=== PATIENT | male | born 1940 | race Caucasian/White ===

== ENCOUNTER 2017-07-22 06:49 | Inpatient (IN) | payer OTHER, MEDICARE ==
--- NOTE | 2017-07-22 07:48 | PDOC ---
History of Present Illness - General History Source: Patient Exam Limitations: No Limitations - History of Present Illness Initial Comments: 07/22/17 08:08 The patient is a 76 year old male with a significant past medical history of hypertension, hyperlipidemia, diabetes, stroke, on a daily aspirin, arthritis ( takes daily aleve) and sinonasal endocrine tumor (removed 2 years ago) who presents to the ED with complaints of rectal bleeding since this morning. The patient states he woke up this morning with generalized weakness. He reports 2 bowel movements that showed copious amounts of bright red blood with no stool present. Patient also reports a slight headache that has since resided and right arm numbness since yesterday. Denies similar symptoms in the past. Denies a hx of a colonoscopy. Denies abdominal pain, nausea, or vomiting. Denies chest pain or shortness of breath. Denies fever or chills. Denies any other symptoms. Social hx: The patient reports smoking one pack of cigarettes a day for 67 years. <Sammy Lowry - Last Filed: 07/22/17 09:46> <Andrez Andrew - Last Filed: 07/22/17 11:13> - General Chief Complaint: Rectal Bleed Stated Complaint: RECTAL BLEEDING Time Seen by Provider: 07/22/17 07:20 Past History <Sammy Lowry - Last Filed: 07/22/17 09:46> - Past Medical History CVA: Yes Diabetes: Yes HTN: Yes Hypercholesterolemia: Yes - Surgical History Abdominal Surgery: Yes (hernia) Orthopedic Surgery: Yes (LEIDY FOOT SX) - Suicide/Smoking/Psychosocial Hx Smoking History: Current every day smoker Have you smoked in the past 12 months: Yes Number of Cigarettes Smoked Daily: 20 Information on smoking cessation initiated: No 'Breaking Loose' booklet given: 09/11/14 Hx Alcohol Use: No Drug/Substance Use Hx: No Substance Use Type: None Hx Substance Use Treatment: No <Andrez Andrew - Last Filed: 07/22/17 11:13> - Past Medical History Allergies/Adverse Reactions: Allergies Allergy/AdvReac Type Severity Reaction Status Date / Time No Known Allergies Allergy Verified 07/22/17 07:00 Home Medications: Ambulatory Orders Lisinopril [Prinivil -] 20 mg PO BID 05/11/14 Metformin HCl [Glucophage] 1,000 mg PO BID 05/11/14 Simvastatin [Zocor -] 20 mg PO HS 05/11/14 Timolol 0.5% [Timoptic] 0.3 ml OU DAILY 05/11/14 Aspirin [ASA -] 325 mg PO DAILY 09/10/14 Glipizide [Glipizide ER] 10 mg PO BID 09/10/14 Review of Systems - Review of Systems Able to Perform ROS?: Yes Comments:: 07/22/17 08:08 ROS: A complete review of 10 out of 10 review of systems is taken and is negative apart from what is previously mentioned below and in the HPI. Gastrointestinal: + Rectal bleeding. No nausea; no vomiting; no diarrhea Neurological: + headache, generalized weakness, arm numbness. ; no vertigo; no lightheadedness All Other Systems: Reviewed and Negative <Sammy Lowry - Last Filed: 07/22/17 09:46> *Physical Exam - Vital Signs Last Vital Signs Temp Pulse Resp BP Pulse Ox 98.7 F 125 H 20 135/85 95 07/22/17 07:01 07/22/17 07:01 07/22/17 07:01 07/22/17 07:01 07/22/17 07:01 - Physical Exam Comments: 07/22/17 08:08 Vitals: Triage Vital signs reviewed General Appearance: + thin appearing, no acute distress Head: Atraumatic Cardiac: + systolic ejection murmur. Regular rate and rhythm, no rubs, no gallops Lungs: Clear to auscultation bilateral, good air movement bilaterally Abdomen: Soft, nondistended, normal bowel sounds, nontender to palpation Rectal: + Bright red blood per rectum. Extremities: Full range of motion to all extremities, no cyanosis, clubbing, or edema Skin: Warm and dry, no rashes or lesions, no rash, no petechiae Neuro: AOX3; Cranial Nerves 2-12 grossly intact, Strength intact to all extremities, Sensation intact to all extremities Psych: Normal mood, normal affect <Sammy Lowry - Last Filed: 07/22/17 09:46> - Vital Signs Last Vital Signs Temp Pulse Resp BP Pulse Ox 98.7 F 125 H 20 135/85 95 07/22/17 07:01 07/22/17 07:01 07/22/17 07:01 07/22/17 07:01 07/22/17 07:01 <Andrez Andrew - Last Filed: 07/22/17 11:13> Heart Score/ECG Review #1 07/22/17 08:45 EKG performed at 7:09:47 demonstrates rate of 97 bpm, rhythm of normal sinus, axis equal to normal. no T wave inversions, no ST elevations <Sammy Lowry - Last Filed: 07/22/17 09:46> ED Treatment Course - LABORATORY CBC & Chemistry Diagram: 07/22/17 07:37 07/22/17 07:37 - ADDITIONAL ORDERS Additional order review: Laboratory Results 07/22/17 07:37 VBG pH 7.32 POC VBG pCO2 49.1 POC VBG pO2 27.6 L Mixed VBG HCO3 24.5 - RADIOLOGY Radiograph Interpretation: 07/22/17 08:34 RAD/CHEST X-RAY PORTABLE Impression: No acute pathology. Reported by: Anil Case <Sammy Lowry - Last Filed: 07/22/17 09:46> - LABORATORY CBC & Chemistry Diagram: 07/22/17 07:37 07/22/17 07:37 - RADIOLOGY Radiology Studies Ordered: Category Date Time Status CHEST X-RAY PORTABLE* [RAD] Stat Radiology 07/22/17 07:21 Ordered <Andrez Andrew - Last Filed: 07/22/17 11:13> Medical Decision Making - Medical Decision Making 07/22/17 08:18 The patient is a 76 year old male with a significant past medical history of hypertension, hyperlipidemia, diabetes, stroke, on a daily aspirin, arthritis ( takes daily aleve) and sinonasal endocrine tumor (removed 2 years ago) who presents to the ED with complaints of rectal bleeding since this morning. Will obtain labs, ECG, Chest X-ray and perform a bedside abdominal US. 07/22/17 08:34 Bedside US demonstrates no significant aortic enlargement. 07/22/17 08:56 Dr. Phillips was microblogged at 08:54, wind commissioning technician for Dr. Nunez, to admit the patient for observation with a GI consult. 07/22/17 09:05 Dr. Smith, Gastroenterology, was paged at 09:02. 07/22/17 09:[address] Phillips at 09:20. 07/22/17 09:[address] Smith at 09:23. <Sammy Lowry - Last Filed: 07/22/17 09:46> - Medical Decision Making Patient presents with 2 episodes of bright red blood per rectum slightly tachycardic but normotensive On his laboratory analysis his hemoglobin has dropped from 2014 level of 14.7- 9.7 today no additional active stooling here in the emergency department Gastroenterology has been consulted we'll admit to telemetry for further management and GI consultation. <Andrez Andrew - Last Filed: 07/22/17 11:13> *DC/Admit/Observation/Transfer - Attestations Scribe Attestion: 07/22/17 08:08 Documentation prepared by Sammy Lowry, acting as medical care manager for Andrez Andrew MD <Sammy Lowry - Last Filed: 07/22/17 09:46> - Discharge Dispostion Admit: Yes <Andrez Andrew - Last Filed: 07/22/17 11:13> Diagnosis at time of Disposition: GI bleed Qualifiers: GI bleed type/associated pathology: unspecified gastrointestinal hemorrhage type Qualified Code(s): K92.2 - Gastrointestinal hemorrhage, unspecified - Discharge Dispostion Disposition: HOME
[2017-07-22 07:56] LABS: VENOUS PC02 49.1 mmHg (38-52); VENOUS PH 7.32 (7.32-7.42); VENOUS PO2 27.6 mmHg (28-48)
[2017-07-22 08:07] LABS: BASO % 0.7 % (0-2.0); EOS % 0.6 % (0-4.5); HEMATOCRIT 30.1 % (35.4-49); HEMOGLOBIN 9.7 GM/dL (11.7-16.9); LYMPH % 2.4 % (8-40); MCHC 32.2 g/dl (32.0-35.9); MEAN CELL VOLUME 93.4 fl (80-96); MEAN PLT VOLUME 7.8 fl (7.5-11.1); MONO % 4.8 % (3.8-10.2); NEUT % 91.5 % (42.8-82.8); PLATELET COUNT 325 K/MM3 (134-434); RBC 3.23 M/mm3 (4.00-5.60); WHITE BLOOD COUNT 12.1 K/mm3 (4.0-10.0)
[2017-07-22 08:32] LABS: INR 1.05 (0.82-1.09); PROTHROMBIN TIME (PATIENT) 11.9 SEC (9.98-11.88)
[2017-07-22 08:37] LABS: ALK PHOS 91 U/L (45-117); ANION GAP 10 (8-16); BILIRUBIN,TOTAL 0.4 mg/dL (0.2-1.0); BLOOD UREA NITROGEN 28 mg/dL (7-18); CHLORIDE 104 mmol/L (98-107); CO2 25 mmol/L (21-32); CREATININE 1.5 mg/dL (0.7-1.3); GLUCOSE,RANDOM 271 mg/dL (74-106); POTASSIUM 5.2 mmol/L (3.5-5.1); SGOT/AST 9 U/L (15-37); SGPT/ALT 10 U/L (12-78); SODIUM 139 mmol/L (136-145); TOT PROT 5.6 g/dl (6.4-8.2)
--- NOTE | 2017-07-22 10:22 | HP ---
Addendum entered and electronically signed by Dae Phillips MD 07/22/17 16:27 : Patient seen and examined. States had slurred speech yesterday that resolved by presentation. Today has numbness/tingling in L hand that he hasnt had since his stroke but improving. Currently says he is nervous. Agree with physical exam and assessment/plan by Vidya Gonzalez NP Original Note: Admitting History and Physical - Primary Care Physician PCP: Curt Nunez - Admission Chief Complaint: blood through rectum History of Present Illness: is pleasant 76 year old with pmh of DM, HTN, Hyperlipidemia, Stroke, OA, who presents with new onset, 2 episodes of bright blood per rectum this morning. He reports he's had a mild headache, and felt weak since yesterday. Pt has never had a colonoscopy. He also reports he woke up with his right hand numb which resolved with time. Pt reports his mentioned his speech was slight slurred which also resolved. Otherwise, pt reports he is feeling okay now. He denies any chest pain, sob, blurry vision, fever, chills, or n/v/d. 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 Lt toe amput (old) tonsillect), Tonsillectomy (Lt toe amp ( old)) - Smoking History Smoking history: Current every day smoker Have you smoked in the past 12 months: Yes Aproximately how many cigarettes per day: 20 - Alcohol/Substance Use Hx Alcohol Use: No History of Substance Use: reports: None - Social History Usual Living Arrangement: Yes: With Spouse ADL: Independent History of Recent Travel: No Home Medications - Allergies Allergies/Adverse Reactions: Allergies Allergy/AdvReac Type Severity Reaction Status Date / Time No Known Allergies Allergy Verified 07/22/17 07:00 - Home Medications Home Medications: Ambulatory Orders Lisinopril [Prinivil -] 20 mg PO BID 05/11/14 Metformin HCl [Glucophage] 1,000 mg PO BID 05/11/14 Simvastatin [Zocor -] 20 mg PO HS 05/11/14 Timolol 0.5% [Timoptic] 0.3 ml OU DAILY 05/11/14 Aspirin [ASA -] 325 mg PO DAILY 09/10/14 Glipizide [Glipizide ER] 10 mg PO BID 09/10/14 Family Disease History - Family Disease History Family Disease History: Diabetes: Brother (liver Ca, CKD), Heart Disease: Father , Mother (ill descript GI illness), Brother, CA: Brother, Other: Mother Review of Systems Findings/Remarks: as per HPI Physical Examination Vital Signs: Vital Signs Temperature 98.7 F 07/22/17 07:01 Pulse Rate 125 H 07/22/17 07:01 Respiratory Rate 20 07/22/17 07:01 Blood Pressure 135/85 07/22/17 07:01 O2 Sat by Pulse Oximetry (%) 95 07/22/17 07:01 Constitutional: Yes: Well Nourished, No Distress, Calm Cardiovascular: Yes: WNL, Regular Rate and Rhythm, Murmur. No: Bruit, Gallop, Rub Respiratory: Yes: WNL, Regular, CTA Bilaterally. No: Rales, Rhonchi, Wheezes Gastrointestinal: Yes: WNL, Normal Bowel Sounds, Soft. No: Distention, Tenderness Musculoskeletal: Yes: WNL Extremities: Yes: WNL Edema: No Neurological: Yes: WNL, Alert, Oriented Psychiatric: Yes: WNL, Alert, Oriented Labs: CBC, BMP 07/22/17 07:37 07/22/17 07:37 Imaging - Results Chest X-ray: Report Reviewed Problem List - Problems (1) Acute lower GI bleeding Assessment/Plan: BBPR x 2, most likely lower gi Heme occult positive Iron/ferritin studies ordered h/h stable, vital signs stable monitor h/h GI consulted, plan for colonoscopy tomorrow Clear liquids for now, bowel prep, NPO at midnight Code(s): K92.2 - GASTROINTESTINAL HEMORRHAGE, UNSPECIFIED (2) Diabetes mellitus Assessment/Plan: Holding home meds for now considering renal function BGM Insulin sliding scale as needed Code(s): E11.9 - TYPE 2 DIABETES MELLITUS WITHOUT COMPLICATIONS Qualifiers: Diabetes mellitus type: type 2 Diabetes mellitus complication status: with kidney complications Diabetes mellitus complication detail: with chronic kidney disease Diabetes mellitus detention insulin use: without detention use (3) Hypertension Assessment/Plan: Continue Lisinopril 20mg BID Code(s): I10 - ESSENTIAL (PRIMARY) HYPERTENSION Qualifiers: Hypertension type: essential hypertension Qualified Code(s): I10 - Essential (primary) hypertension (4) History of stroke Assessment/Plan: Pt reported RUE weakness/numbness with slurred speech which resolved Head CT neg US carotids/ cardiac echo ordered Neuro consult Hold aspirin for now in the setting of GI bleed Code(s): Z86.73 - PRSNL HX OF TIA (TIA), AND CEREB INFRC W/O RESID DEFICITS (5) Hyperlipidemia Assessment/Plan: Continue simvastatin 20mg Code(s): E78.5 - HYPERLIPIDEMIA, UNSPECIFIED (6) Osteoarthritis (arthritis due to wear and tear of joints) Assessment/Plan: on Aleve at home Hold at the moment Code(s): M19.90 - UNSPECIFIED OSTEOARTHRITIS, UNSPECIFIED SITE
[2017-07-22] MEDS ORDERED: SODIUM CHLORIDE 1,000 ML IV SCH (10:45)
--- NOTE | 2017-07-22 11:07 | CON.GI ---
Consult - Past Medical History [employer]: Yes: CVA (no residual deficits) Cardio/Vascular: Yes: HTN, Hyperlipdemia, Murmur (since childhood), Other ( atherosclerosis) Pulmonary: Yes: Bronchitis (chronic mild (smoking related)) Musculoskeletal: Yes: Osteoarthritis Endocrine: Yes: Diabetes Mellitus - Past Surgical History Past Surgical History: Yes: Hernia Repair (Bilateral inguinal hernia repair about 30 years ago. Lt toe amput (old) tonsillect), Tonsillectomy (Lt toe amp ( old)) - Alcohol/Substance Use Hx Alcohol Use: No History of Substance Use: reports: None - Smoking History Smoking history: Current every day smoker Have you smoked in the past 12 months: Yes Aproximately how many cigarettes per day: 20 - Social History ADL: Independent History of Recent Travel: No Home Medications - Allergies Allergies/Adverse Reactions: Allergies Allergy/AdvReac Type Severity Reaction Status Date / Time No Known Allergies Allergy Verified 07/22/17 07:00 - Home Medications Home Medications: Ambulatory Orders Lisinopril [Prinivil -] 20 mg PO BID 05/11/14 Metformin HCl [Glucophage] 1,000 mg PO BID 05/11/14 Simvastatin [Zocor -] 20 mg PO HS 05/11/14 Timolol 0.5% [Timoptic] 0.3 ml OU DAILY 05/11/14 Aspirin [ASA -] 325 mg PO DAILY 09/10/14 Glipizide [Glipizide ER] 10 mg PO BID 09/10/14 Family Disease History - Family Disease History Family Disease History: Diabetes: Brother (liver Ca, CKD), Heart Disease: Father , Mother (ill descript GI illness), Brother, CA: Brother, Other: Mother Physical Exam-GI Vital Signs: Vital Signs Temperature 98.7 F 07/22/17 07:01 Pulse Rate 98 H 07/22/17 10:21 Respiratory Rate 16 07/22/17 10:21 Blood Pressure 126/68 07/22/17 10:21 O2 Sat by Pulse Oximetry (%) 100 07/22/17 10:21 Labs: CBC, BMP 07/22/17 07:37 07/22/17 07:37 INR, PTT INR 1.05 (0.82-1.09) 07/22/17 07:37
--- NOTE | 2017-07-22 11:51 | CON.GI ---
Consult - History of Present Illness History of Present Illness: Covering for Dr. Ramos The patient is a 76 year old male with a significant past medical history of hypertension, hyperlipidemia, diabetes, stroke, on a daily aspirin, arthritis ( takes daily aleve) and sinonasal endocrine tumor (removed 2 years ago) who presents to the ED with complaints of rectal bleeding since this morning. The patient reports 2 bowel movements - copious amounts of bright red blood with no stool present. There was no tenismus, nausea, vomiting, abdominal pain, dyspepsia, heartburn, vomiting. No prior episodes of the same. No history of GI problems. Never had colonoscopy. At the time of this encounter, the patient is not in distress, sitting at the age of his bed, comfortable. Hgb 9 g/dl. Normal VS. 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 Lt toe amput (old) tonsillect), Tonsillectomy (Lt toe amp ( old)) - Alcohol/Substance Use Hx Alcohol Use: No History of Substance Use: reports: None - Smoking History Smoking history: Current every day smoker Have you smoked in the past 12 months: Yes Aproximately how many cigarettes per day: 20 - Social History ADL: Independent History of Recent Travel: No Home Medications - Allergies Allergies/Adverse Reactions: Allergies Allergy/AdvReac Type Severity Reaction Status Date / Time No Known Allergies Allergy Verified 07/22/17 07:00 - Home Medications Home Medications: Ambulatory Orders Lisinopril [Prinivil -] 20 mg PO BID 05/11/14 Metformin HCl [Glucophage] 1,000 mg PO BID 05/11/14 Simvastatin [Zocor -] 20 mg PO HS 05/11/14 Timolol 0.5% [Timoptic] 0.3 ml OU DAILY 05/11/14 Aspirin [ASA -] 325 mg PO DAILY 09/10/14 Glipizide [Glipizide ER] 10 mg PO BID 09/10/14 Family Disease History - Family Disease History Family Disease History: Diabetes: Brother (liver Ca, CKD), Heart Disease: Father , Mother (ill descript GI illness), Brother, CA: Brother, Other: Mother Review of Systems Findings/Remarks: As per HPI. H&P Physical Exam-GI Vital Signs: Vital Signs Temperature 98.7 F 07/22/17 07:01 Pulse Rate 98 H 07/22/17 10:21 Respiratory Rate 16 07/22/17 10:21 Blood Pressure 126/68 07/22/17 10:21 O2 Sat by Pulse Oximetry (%) 100 07/22/17 10:21 Constitutional: Yes: Well Nourished, No Distress, Calm Eyes: Yes: Conjunctiva Clear HENT: Yes: Atraumatic Neck: Yes: Supple ...Palpate: Yes: Soft. No: Firm/Rigid, Guarding, Mass, Tenderness, Tenderness, Rebound ...Rectal Exam: Yes: Guaiac Positive (lab tested), Other (lab) Neurological: Yes: Alert, Oriented Labs: CBC, BMP 07/22/17 07:37 07/22/17 07:37 INR, PTT INR 1.05 (0.82-1.09) 07/22/17 07:37 Laboratory Tests 07/22/17 07/22/17 07/22/17 07:37 07:37 07:37 WBC 12.1 H RBC 3.23 L D Hgb 9.7 L D Hct 30.1 L D MCV 93.4 MCH 30.0 MCHC 32.2 RDW 14.0 Plt Count 325 D MPV 7.8 Neutrophils % 91.5 H Lymphocytes % 2.4 L D Monocytes % 4.8 Eosinophils % 0.6 Basophils % 0.7 PT with INR 11.90 H INR 1.05 PTT (Actin FS) 28.0 VBG pH 7.32 POC VBG pCO2 49.1 POC VBG pO2 27.6 L Mixed VBG HCO3 24.5 Sodium Potassium Chloride Carbon Dioxide Anion Gap BUN Creatinine Creat Clearance w eGFR Random Glucose Lactic Acid Calcium Total Bilirubin AST ALT Alkaline Phosphatase Total Protein Albumin Stool Occult Blood Blood Type Antibody Screen 07/22/17 07/22/17 07/22/17 07:37 07:37 07:37 WBC RBC Hgb Hct MCV MCH MCHC RDW Plt Count MPV Neutrophils % Lymphocytes % Monocytes % Eosinophils % Basophils % PT with INR INR PTT (Actin FS) VBG pH POC VBG pCO2 POC VBG pO2 Mixed VBG HCO3 Sodium 139 Potassium 5.2 H Chloride 104 Carbon Dioxide 25 Anion Gap 10 BUN 28 H D Creatinine 1.5 H D Creat Clearance w eGFR 45.26 Random Glucose 271 H D Lactic Acid 1.4 Calcium 8.0 L Total Bilirubin 0.4 D AST 9 L D ALT 10 L D Alkaline Phosphatase 91 Total Protein 5.6 L Albumin 3.0 L Stool Occult Blood Blood Type O NEGATIVE Antibody Screen Negative 07/22/17 07/22/17 08:13 11:05 WBC RBC Hgb Hct MCV MCH MCHC RDW Plt Count MPV Neutrophils % Lymphocytes % Monocytes % Eosinophils % Basophils % PT with INR INR PTT (Actin FS) VBG pH POC VBG pCO2 POC VBG pO2 Mixed VBG HCO3 Sodium Potassium Chloride Carbon Dioxide Anion Gap BUN Creatinine Creat Clearance w eGFR Random Glucose Lactic Acid 1.3 Calcium Total Bilirubin AST ALT Alkaline Phosphatase Total Protein Albumin Stool Occult Blood Positive Blood Type Antibody Screen Problem List - Problems (1) Acute lower GI bleeding Code(s): K92.2 - GASTROINTESTINAL HEMORRHAGE, UNSPECIFIED (2) GI bleed Code(s): K92.2 - GASTROINTESTINAL HEMORRHAGE, UNSPECIFIED Qualifiers: GI bleed type/associated pathology: unspecified gastrointestinal hemorrhage type Qualified Code(s): K92.2 - Gastrointestinal hemorrhage, unspecified Assessment/Plan A 76 yom with hematochezia. Anemia. No hemodynamic instability. Not actively bleeding at this time. r/o neoplams, diverticulosis, angiectasia, colitis. As discussed with the patient, clear liquid diet and colon prep today followed by colonocopy. Avoid NSAIDs CBC in 6-8 hrs PT/INR, CBC, CMP, Iron in AM Do not suspect upper GI bleeding.
[2017-07-22] MEDS: INSULIN SLIDING SCALE (NOVOLOG) 1 VIAL SQ SCH (12:10)
[2017-07-22] MEDS ORDERED: INSULIN REGULAR HUMAN 100 UNITS/ML *VIAL ONE (12:10)
[2017-07-22] MEDS ORDERED: BISACODYL 5 MG TABLET.DR (FP) PO ONE (12:33)
[2017-07-22] MEDS ORDERED: PEG 3350/NA SULF BICARB CL/KCL 4000 ML SOLN.RECON PO ONE (12:33)
[2017-07-22] MEDS ORDERED: BISACODYL 5 MG TABLET.DR (FP) ONE (13:49)
--- NOTE | 2017-07-22 14:58 | EKG ---
Test Reason : Blood Pressure : / mmHG Vent. Rate : 097 BPM Atrial Rate : 097 BPM P-R Int : 164 ms QRS Dur : 076 ms QT Int : 366 ms P-R-T Axes : 030 040 082 degrees QTc Int : 464 ms POOR DATA QUALITY, INTERPRETATION MAY BE ADVERSELY AFFECTED SINUS RHYTHM WITH MARKED SINUS ARRHYTHMIA POSSIBLE LEFT ATRIAL ENLARGEMENT NONSPECIFIC ST AND T WAVE ABNORMALITY PROLONGED QT ABNORMAL ECG WHEN COMPARED WITH ECG OF 15-MAY-2014 08:45, NO SIGNIFICANT CHANGE WAS FOUND Confirmed by SMILEY STEVENSON MD ([id number]) on 07/22/2017 2:57:35 PM Referred By: Confirmed By:SMILEY STEVENSON MD
[2017-07-22 18:05] LABS: URINE APPEARANCE SLCLOUDY; URINE BILIRUBIN NEGATIVE (NEGATIVE); URINE BLOOD NEGATIVE (NEGATIVE); URINE COLOR YELLOW; URINE GLUCOSE (UA) 1+ (NEGATIVE); URINE KETONE TRACE (NEGATIVE); URINE LEUK ESTERASE NEGATIVE (NEGATIVE); URINE NITRITE NEGATIVE (NEGATIVE); URINE UROBILINOGEN NEGATIVE mg/dL (0.2-1.0)
[2017-07-22 18:34] LABS: URINE PROTEIN 2+ (NEGATIVE)
[2017-07-22 18:37] LABS: EPI CELLS RARE /HPF (FEW); GRANULAR CASTS 1 /lpf; URINE BACTERIA RARE /hpf (NONE SEEN); URINE HYALINE CAST 4 /lpf; URINE MUCUS RARE
[2017-07-22 21:19] LABS: BASO % 0.4 % (0-2.0); EOS % 0.9 % (0-4.5); HEMATOCRIT 25.2 % (35.4-49); HEMOGLOBIN 8.1 GM/dL (11.7-16.9); LYMPH % 5.5 % (8-40); MCH 29.6 pg (25.7-33.7); MEAN CELL VOLUME 92.4 fl (80-96); MEAN PLT VOLUME 7.4 fl (7.5-11.1); MONO % 7.1 % (3.8-10.2); NEUT % 86.1 % (42.8-82.8); PLATELET COUNT 347 K/MM3 (134-434); RBC 2.73 M/mm3 (4.00-5.60); WHITE BLOOD COUNT 11.5 K/mm3 (4.0-10.0)
[2017-07-22] MEDS: ATORVASTATIN CA 10 MG TABLET (FP) PO SCH (22:13)
[2017-07-22] MEDS: LISINOPRIL 20 MG TABLET (FP) PO SCH (22:13)
[2017-07-22] MEDS ORDERED: LISINOPRIL 20 MG TABLET (FP) ONE (22:24)
[2017-07-22] MEDS ORDERED: ATORVASTATIN CA 40 MG TABLET (FP) ONE (22:25)
[2017-07-23] MEDS: SODIUM CHLORIDE 1,000 ML IV SCH (00:40)
[2017-07-23] MEDS: INSULIN SLIDING SCALE (NOVOLOG) 1 VIAL SQ SCH ×4 (00:41→17:32)
[2017-07-23 07:34] LABS: HEMOGLOBIN 8.6 GM/dL (11.7-16.9); MCH 29.8 pg (25.7-33.7); MCHC 31.9 g/dl (32.0-35.9); MEAN CELL VOLUME 93.4 fl (80-96); MEAN PLT VOLUME 7.9 fl (7.5-11.1); PLATELET COUNT 333 K/MM3 (134-434); RBC 2.89 M/mm3 (4.00-5.60); WHITE BLOOD COUNT 11.3 K/mm3 (4.0-10.0)
[2017-07-23 07:46] LABS: INR 1.04 (0.82-1.09); PROTHROMBIN TIME (PATIENT) 11.7 SEC (9.98-11.88)
[2017-07-23 08:11] LABS: ANION GAP 8 (8-16); BLOOD UREA NITROGEN 38 mg/dL (7-18); CALCIUM 7.8 mg/dL (8.5-10.1); CHLORIDE 105 mmol/L (98-107); CO2 26 mmol/L (21-32); CREATININE 1.5 mg/dL (0.7-1.3); GLUCOSE,RANDOM 153 mg/dL (74-106); MAGNESIUM 1.9 mg/dL (1.8-2.4); PHOSPHOROUS 2.7 mg/dL (2.5-4.9); POTASSIUM 5.3 mmol/L (3.5-5.1); SODIUM 139 mmol/L (136-145)
[2017-07-23] MEDS ORDERED: LISINOPRIL 20 MG TABLET (FP) ONE (08:31)
--- NOTE | 2017-07-23 09:22 | PN ---
Progress Note, Physician Chief Complaint: Pt upset because he didnt get any sleep and had to spend the night in ED. Otherwise, pt in no acute distress. Denies any chest pain, sob, weakness, n/v. - Current Medication List Current Medications: Active Medications Atorvastatin Calcium (Lipitor -) 20 mg PO [facility] Last Admin: 07/22/17 22:13 Dose: 20 mg Sodium Chloride (Normal Saline -) 1,000 mls @ 50 mls/hr IV ASDIR [facility] Stop: 07/23/17 23:59 Last Admin: 07/23/17 00:40 Dose: 50 mls/hr Insulin Aspart (Novolog Vial Sliding Scale -) 1 vial SQ TIDAC [facility] PRN Reason: Protocol Last Admin: 07/23/17 06:53 Dose: 2 units Lisinopril (Prinivil) 20 mg PO BID [facility] Last Admin: 07/22/17 22:13 Dose: 20 mg Non-Formulary Medication (Timolol 0.5%) 0.3 ml OU DAILY [facility] - Objective Vital Signs: Vital Signs Temperature 99.0 F 07/23/17 09:05 Pulse Rate 94 H 07/23/17 09:05 Respiratory Rate 18 07/23/17 09:05 Blood Pressure 166/81 07/23/17 09:05 O2 Sat by Pulse Oximetry (%) 100 07/23/17 09:05 Constitutional: Yes: Well Nourished, No Distress Cardiovascular: Yes: WNL, Regular Rate and Rhythm, Murmur Respiratory: Yes: WNL, Regular, CTA Bilaterally, Diminished Gastrointestinal: Yes: WNL, Normal Bowel Sounds, Soft. No: Distention Musculoskeletal: Yes: WNL Extremities: Yes: WNL Edema: No Neurological: Yes: WNL, Alert, Oriented Psychiatric: Yes: WNL, Alert, Oriented Labs: CBC, BMP 07/23/17 06:30 07/23/17 06:30 INR, PTT INR 1.04 (0.82-1.09) 07/23/17 06:30 - ....Imaging Cat Scan: Report Reviewed Ultrasound: Report Reviewed MRI: Pending Other: Other <Vidya Gonzalez - Last Filed: 07/23/17 17:01> - Current Medication List Current Medications: Active Medications Atorvastatin Calcium (Lipitor -) 20 mg PO [facility] Last Admin: 07/22/17 22:13 Dose: 20 mg Sodium Chloride (Normal Saline -) 1,000 mls @ 50 mls/hr IV ASDIR [facility] Stop: 07/23/17 23:59 Last Admin: 07/23/17 00:40 Dose: 50 mls/hr Insulin Aspart (Novolog Vial Sliding Scale -) 1 vial SQ TIDAC [facility] PRN Reason: Protocol Last Admin: 07/23/17 11:56 Dose: Not Given Lisinopril (Prinivil) 20 mg PO BID [facility] Last Admin: 07/23/17 10:04 Dose: 20 mg Non-Formulary Medication (Timolol 0.5%) 0.3 ml OU DAILY [facility] - Objective Vital Signs: Vital Signs Temperature 37.2 C 07/23/17 15:44 Pulse Rate 78 07/23/17 15:44 Respiratory Rate 18 07/23/17 15:44 Blood Pressure 130/52 07/23/17 15:44 O2 Sat by Pulse Oximetry (%) 99 07/23/17 15:34 Labs: CBC, BMP 07/23/17 06:30 07/23/17 06:30 INR, PTT INR 1.04 (0.82-1.09) 07/23/17 06:30 <Dae Phillips - Last Filed: 07/23/17 17:22> Problem List - Problems (1) Acute lower GI bleeding Code(s): K92.2 - GASTROINTESTINAL HEMORRHAGE, UNSPECIFIED (2) Diabetes mellitus Code(s): E11.9 - TYPE 2 DIABETES MELLITUS WITHOUT COMPLICATIONS QualifierTitle: Diabetes mellitus type: type 2 Diabetes mellitus complication status: with kidney complications Diabetes mellitus complication detail: with chronic kidney disease Diabetes mellitus senior care insulin use: without adjunct faculty for medical terminology use (3) Hypertension Code(s): I10 - ESSENTIAL (PRIMARY) HYPERTENSION QualifierTitle: Hypertension type: essential hypertension Qualified Code( s): I10 - Essential (primary) hypertension (4) History of stroke Code(s): Z86.73 - PRSNL HX OF TIA (TIA), AND CEREB INFRC W/O RESID DEFICITS (5) Hyperlipidemia Code(s): E78.5 - HYPERLIPIDEMIA, UNSPECIFIED (6) Osteoarthritis (arthritis due to wear and tear of joints) Code(s): M19.90 - UNSPECIFIED OSTEOARTHRITIS, UNSPECIFIED SITE (7) CKD (chronic kidney disease) stage 3, GFR 30-59 ml/min Code(s): N18.3 - CHRONIC KIDNEY DISEASE, STAGE 3 (MODERATE) <Vidya Gonzalez - Last Filed: 07/23/17 17:01> Assessment/Plan (1) Acute lower GI bleeding Assessment/Plan: BRBPR x 2, most likely lower gi Heme occult positive Iron/ferritin studies pending h/h stable, vital signs stable monitor h/h GI following, plan for colonoscopy today NPO Code(s): K92.2 - GASTROINTESTINAL HEMORRHAGE, UNSPECIFIED (2) Diabetes mellitus Assessment/Plan: Holding home meds for now considering renal function BGM Insulin sliding scale as needed Code(s): E11.9 - TYPE 2 DIABETES MELLITUS WITHOUT COMPLICATIONS Qualifiers: Diabetes mellitus type: type 2 Diabetes mellitus complication status: with kidney complications Diabetes mellitus complication detail: with chronic kidney disease Diabetes mellitus senior care insulin use: without senior care use (3) Hypertension Assessment/Plan: Continue Lisinopril 20mg BID Code(s): I10 - ESSENTIAL (PRIMARY) HYPERTENSION Qualifiers: Hypertension type: essential hypertension Qualified Code(s): I10 - Essential (primary) hypertension (4) CKD (chronic kidney disease) stage 3, GFR 30-59 ml/min Assessment/Plan: Baseline Cr 1.2-2 output, Followed by outpt Cr 1.5 here, mild hyperkalemia Nephrology following Code(s): N18.3 - CHRONIC KIDNEY DISEASE, STAGE 3 (MODERATE) (5) History of stroke Assessment/Plan: Pt reported RUE weakness/numbness with slurred speech which resolved Head CT neg US carotids without significant findings/ cardiac echo pending MRI ordered per Neuro Neuro following Hold aspirin for now in the setting of GI bleed Code(s): Z86.73 - PRSNL HX OF TIA (TIA), AND CEREB INFRC W/O RESID DEFICITS (6) Hyperlipidemia Assessment/Plan: Continue simvastatin 20mg Code(s): E78.5 - HYPERLIPIDEMIA, UNSPECIFIED (7) Osteoarthritis (arthritis due to wear and tear of joints) Assessment/Plan: on Aleve at home Hold at the moment Code(s): M19.90 - UNSPECIFIED OSTEOARTHRITIS, UNSPECIFIED SITE Dispo: Home tomorrow. MRI pending <Vidya Gonzalez - Last Filed: 07/23/17 17:01>
--- NOTE | 2017-07-23 09:52 | PN ---
Progress Note (short form) - Note Progress Note: Dr. Phillips / OIL WELL ENGINEER Vidya Gonzalez to document today. Last hemoglobin 11Gm in office. Hemoglobin was 12.3 prior to that result. Previously refused Colonoscopy; still smoking; Renal MD Dr. Hood. [place] watery fluids coming out with prep; no pieces of stool. Previous Hx TIA/CVA with no residual effects.
[2017-07-23] MEDS ORDERED: TIMOLOL 0.5% OU SCH (10:00)
[2017-07-23] MEDS: LISINOPRIL 20 MG TABLET (FP) PO SCH ×2 (10:04→21:07)
--- NOTE | 2017-07-23 10:14 | CONSULT ---
Consult - text type - Consultation Consultation Note: Neurology History of Present Illness The patient is a 76 year old male with a significant past medical history of hypertension, hyperlipidemia, diabetes, stroke, on a daily aspirin, arthritis ( takes daily aleve) and sinonasal endocrine tumor (removed 2 years ago) who presented to the ED with complaints of rectal bleeding. The patient stated he woke up with generalized weakness. He reports 2 bowel movements that showed copious amounts of bright red blood with no stool present. I was consulted as there was concern regarding neurologic symptoms. He has slurring of speech and was complaining of numbness particularly in his distal RUE. He is a poor historian and it seems some of these complaints may be chronic. He completed CT head which did not show acute changes. Carotid dopplers also completed and with HD significant stenosis. Of note, ASA being held during lower GI bleeding. Discussed with him having an MRI brain to further evaluate complaints and determine if any acute events occured and he was in agreement. Past History - Past Medical History CVA: Yes Diabetes: Yes HTN: Yes Hypercholesterolemia: Yes - Surgical History Abdominal Surgery: Yes (hernia) Orthopedic Surgery: Yes (LEIDY FOOT SX) - Suicide/Smoking/Psychosocial Hx Smoking History: Current every day smoker Have you smoked in the past 12 months: Yes Number of Cigarettes Smoked Daily: 20 Information on smoking cessation initiated: No 'Breaking Loose' booklet given: 09/11/14 Hx Alcohol Use: No Drug/Substance Use Hx: No Substance Use Type: None Hx Substance Use Treatment: No - Past Medical History Allergies/Adverse Reactions: Allergies Allergy/AdvReac Type Severity Reaction Status Date / Time No Known Allergies Allergy Verified 07/22/17 07:00 Home Medications: Ambulatory Orders Lisinopril [Prinivil -] 20 mg PO BID 05/11/14 Metformin HCl [Glucophage] 1,000 mg PO BID 05/11/14 Simvastatin [Zocor -] 20 mg PO HS 05/11/14 Timolol 0.5% [Timoptic] 0.3 ml OU DAILY 05/11/14 Aspirin [ASA -] 325 mg PO DAILY 09/10/14 Glipizide [Glipizide ER] 10 mg PO BID 09/10/14 Review of Systems - Review of Systems ROS: A complete review of 10 out of 10 review of systems is taken and is negative apart from what is previously mentioned below and in the HPI. Gastrointestinal: + Rectal bleeding. No nausea; no vomiting; no diarrhea Neurological: + headache, generalized weakness, arm numbness. ; no vertigo; no lightheadedness All Other Systems: Reviewed and Negative *Physical Exam Vital Signs Period Temp Pulse Resp BP Sys/Sy Pulse Ox Last 24 Hr 97.8 F-99.2 F 88-98 16-18 126-166/65-81 97-100 Vitals: Triage Vital signs reviewed General Appearance: + thin appearing, no acute distress Head: Atraumatic Cardiac: + systolic ejection murmur. Regular rate and rhythm, no rubs, no gallops Lungs: Clear to auscultation bilateral, good air movement bilaterally Abdomen: Soft, nondistended, normal bowel sounds, nontender to palpation Rectal: + Bright red blood per rectum. Extremities: Full range of motion to all extremities, no cyanosis, clubbing, or edema Skin: Warm and dry, no rashes or lesions, no rash, no petechiae Neuro: AOX3; Cranial Nerves intact except slight slurred speech noted, Strength intact grossly, sensory with slight decreased PP on R hand, gait without ataxia, slight antalgia Psych: Normal mood, normal affect CBCD WBC 11.3 K/mm3 (4.0-10.0) H 07/23/17 06:30 RBC 2.89 M/mm3 (4.00-5.60) L 07/23/17 06:30 Hgb 8.6 GM/dL (11.7-16.9) L 07/23/17 06:30 Hct 27.0 % (35.4-49) L 07/23/17 06:30 MCV 93.4 fl (80-96) 07/23/17 06:30 MCHC 31.9 g/dl (32.0-35.9) L 07/23/17 06:30 RDW 14.0 % (11.9-15.9) 07/23/17 06:30 Plt Count 333 K/MM3 (134-434) 07/23/17 06:30 MPV 7.9 fl (7.5-11.1) 07/23/17 06:30 CMP Sodium 139 mmol/L (136-145) 07/23/17 06:30 Potassium 5.3 mmol/L (3.5-5.1) H 07/23/17 06:30 Chloride 105 mmol/L (98-107) 07/23/17 06:30 Carbon Dioxide 26 mmol/L (21-32) 07/23/17 06:30 Anion Gap 8 (8-16) 07/23/17 06:30 BUN 38 mg/dL (7-18) H D 07/23/17 06:30 Creatinine 1.5 mg/dL (0.7-1.3) H 07/23/17 06:30 Creat Clearance w eGFR 45.26 (>60) 07/22/17 07:37 Calcium 7.8 mg/dL (8.5-10.1) L 07/23/17 06:30 Total Bilirubin 0.4 mg/dL (0.2-1.0) D 07/22/17 07:37 AST 9 U/L (15-37) L D 07/22/17 07:37 ALT 10 U/L (12-78) L D 07/22/17 07:37 Alkaline Phosphatase 91 U/L (45-117) 07/22/17 07:37 Total Protein 5.6 g/dl (6.4-8.2) L 07/22/17 07:37 Albumin 3.0 g/dl (3.4-5.0) L 07/22/17 07:37 - RADIOLOGY CT head reviewed Carotid Doppler reviewed PLan 76 year old male with a significant past medical history of hypertension, hyperlipidemia, diabetes, stroke, on a daily aspirin, arthritis (takes daily aleve) and sinonasal endocrine tumor (removed 2 years ago) who presented to the ED with complaints of rectal bleeding. The patient stated he woke up with generalized weakness. He reports 2 bowel movements that showed copious amounts of bright red blood with no stool present. I was consulted as there was concern regarding slurring of speech and was complaining of numbness particularly in his distal RUE. CT head did not show acute changes. Carotid dopplers also completed and with HD significant stenosis. ASA being held during lower GI bleeding. MRI brain ordered Follow up Echo GI bleed being acutely managed Monitor BP, can maintain range, has been normo to slightly hypertensive Recommend < 160/100 for now and ideally <140/90 Recommend restating antiplatelet as soon as possible when GI bleed addressed Continue Statin DXT ppx
[2017-07-23 11:58] VITALS: BMI 21.9
--- NOTE | 2017-07-23 11:58 | CON.NEP ---
Consult Consult Specialty:: Nephrology Referred by:: Dr. Nunez Reason for Consultation:: CKD - History of Present Illness Chief Complaint: Rectal Bleeding History of Present Illness: This is a 76 year old gentleman with PMhx of CKD stage 3 with proteinuria ( baseline Cr 1.3-2 as outpatient), Hypertension, DM Type 2, HLD, CVA who presented with complaints of bright red blood per rectum with BUN/Cr of 38/1.5. Pt had 2 episodes of BRBPR. + dizziness, + chest discomfort. No N/V. No Abd pain. No fever or chills. No recent NSAID use, contrast exposure. No flank pain , hematuria, dysuria. 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 Lt toe amput (old) tonsillect), Tonsillectomy (Lt toe amp ( old)) - Alcohol/Substance Use Hx Alcohol Use: No History of Substance Use: reports: None - Smoking History Smoking history: Current every day smoker Have you smoked in the past 12 months: Yes Aproximately how many cigarettes per day: 20 - Social History ADL: Independent History of Recent Travel: No Home Medications - Allergies Allergies/Adverse Reactions: Allergies Allergy/AdvReac Type Severity Reaction Status Date / Time No Known Allergies Allergy Verified 07/22/17 07:00 - Home Medications Home Medications: Ambulatory Orders Lisinopril [Prinivil -] 20 mg PO BID 05/11/14 Metformin HCl [Glucophage] 1,000 mg PO BID 05/11/14 Simvastatin [Zocor -] 20 mg PO HS 05/11/14 Timolol 0.5% [Timoptic] 0.3 ml OU DAILY 05/11/14 Aspirin [ASA -] 325 mg PO DAILY 09/10/14 Glipizide [Glipizide ER] 10 mg PO BID 09/10/14 Family Disease History - Family Disease History Family Disease History: Diabetes: Brother (liver Ca, CKD), Heart Disease: Father , Mother (ill descript GI illness), Brother, CA: Brother, Other: Mother Review of Systems - Review of Systems Constitutional: reports: No Symptoms Neck: reports: No Symptoms Cardiovascular: reports: No Symptoms Respiratory: reports: No Symptoms Gastrointestinal: reports: Melena. denies: Abdominal Pain, Diarrhea Genitourinary: reports: No Symptoms Musculoskeletal: reports: No Symptoms Neurological: reports: No Symptoms Nephrology Consult - Height Height: 5 ft 3 in - Weight Weight: 56.155 kg - BMI Body Mass Index (BMI): 21.9 - Lab Results CBC,BMP: CBC, BMP 07/23/17 06:30 07/23/17 06:30 Anion Gap: Anion Gap Anion Gap 8 (8-16) 07/23/17 06:30 - Imaging Chest X-ray: Report Reviewed - Physical Examination Vital Signs: Vital Signs Temperature 99.0 F 07/23/17 09:26 Pulse Rate 94 H 07/23/17 09:26 Respiratory Rate 18 07/23/17 09:26 Blood Pressure 166/81 07/23/17 09:26 O2 Sat by Pulse Oximetry (%) 100 07/23/17 09:05 Constitutional: Yes: No Distress, Calm HENT: Yes: Atraumatic Neck: Yes: Supple Cardiovascular: Yes: Regular Rate and Rhythm, S1, S2. No: JVD, Murmur Respiratory: Yes: Regular, CTA Bilaterally Gastrointestinal: Yes: Soft. No: Distention, Tenderness Renal/: No: Bladder Distention, [place] Present Extremities: No: Cold, Cool, Cyanosis Edema: No Neurological: Yes: Alert, Oriented Assessment/Plan 76 year old gentleman with PMhx of CKD stage 3 with proteinuria (baseline Cr 1.3 -2 as outpatient), Hypertension, DM Type 2, HLD, CVA who presented with complaints of bright red blood per rectum with BUN/Cr of 38/1.5. #CKD Stage 3 with proteinuria/Azotemia Renal function stable at this time continue ACEi trend renal function and electrolytes daily would recommend moderate IVF hydration while pt is NPO and getting bowel prep #Rectal Bleeding for colonoscopy GI following #Hypertension continue ACEi #DM Type 2 hold metformin insulin sliding scale #Anemia trend H/H transfuse as per protocol #Mild Hyperkalemia from ACEi +/- mild volume depletion trend with IVF Low K diet when restarted continue ACEi for now Thank you Will follow Tomás Al DO
--- NOTE | 2017-07-23 15:14 | PROC ---
Endoscopy Procedure Endoscopy procedure completed. Please see scanned procedure report. severe diverticulosis throughout the colon prominent fold in the ascending colon noted, tattooed and biopsied 5 mm sigmoid, pedunculated polyp was found and removed high fiber diet follow up biopsies in office in 1 week
[2017-07-23] MEDS: ATORVASTATIN CA 10 MG TABLET (FP) PO SCH (21:07)
[2017-07-24] MEDS: INSULIN SLIDING SCALE (NOVOLOG) 1 VIAL SQ SCH (06:06)
[2017-07-24] MEDS: SODIUM CHLORIDE 1,000 ML IV SCH (06:06)
[2017-07-24 07:43] LABS: BASO % 0.9 % (0-2.0); LYMPH % 8.2 % (8-40); MCH 30.2 pg (25.7-33.7); MCHC 32.2 g/dl (32.0-35.9); MEAN CELL VOLUME 93.7 fl (80-96); MEAN PLT VOLUME 7.9 fl (7.5-11.1); MONO % 6.9 % (3.8-10.2); PLATELET COUNT 307 K/MM3 (134-434); RBC 2.67 M/mm3 (4.00-5.60); WHITE BLOOD COUNT 7.4 K/mm3 (4.0-10.0)
--- NOTE | 2017-07-24 07:53 | PN ---
Progress Note, Physician Chief Complaint: ID Full note dictated Major issue GI bleed but for unclear reasons possibly elevated WBC in ER blood cultures drawn now with 1/4 gram pos clusters NO fevers chills hardware pacemaker ect. - Current Medication List Current Medications: Active Medications Atorvastatin Calcium (Lipitor -) 20 mg PO HS [facility] Last Admin: 07/23/17 21:07 Dose: 20 mg Insulin Aspart (Novolog Vial Sliding Scale -) 1 vial SQ TIDAC [facility] PRN Reason: Protocol Last Admin: 07/24/17 06:06 Dose: Not Given Lisinopril (Prinivil) 20 mg PO BID [facility] Last Admin: 07/23/17 21:07 Dose: 20 mg Non-Formulary Medication (Timolol 0.5%) 0.3 ml OU DAILY [facility] - Objective Vital Signs: Vital Signs Temperature 97.9 F 07/24/17 05:44 Pulse Rate 75 07/24/17 01:40 Respiratory Rate 18 07/24/17 01:40 Blood Pressure 141/58 07/24/17 01:40 O2 Sat by Pulse Oximetry (%) 99 07/23/17 21:00 Cardiovascular: Yes: Murmur, S1, S2, Other (Grade 4 diffuse precordial murmur) Respiratory: Yes: WNL, Regular, CTA Bilaterally Gastrointestinal: Yes: Soft. No: Tenderness, Tenderness, Epigastrium Labs: INR, PTT INR 1.04 (0.82-1.09) 07/23/17 06:30 Problem List - Problems (1) Gram-positive bacteremia Code(s): R78.81 - BACTEREMIA (2) Acute lower GI bleeding Code(s): K92.2 - GASTROINTESTINAL HEMORRHAGE, UNSPECIFIED Assessment/Plan Microbiology 07/22/17 07:21 Blood - Peripheral Venous Blood Culture - Preliminary Pending Organism 07/22/17 07:21 Blood - Peripheral Venous Blood Culture - Preliminary NO GROWTH OBTAINED AFTER 24 HOURS, INCUBATION TO CONTINUE FOR 4 DAYS. Laboratory Tests 07/23/17 07/24/17 06:30 06:00 WBC Pending Hgb Pending Hct Pending Plt Count Pending BUN 38 H D Creatinine 1.5 H Assessment Gi bleed with no clinical suspicion for infection Blood culture I would assume contamination Plan No antibiotic to be given now unless additional cultures positive No reason now for repeat blood cultures Discharge planning per PMD Clark
[2017-07-24 08:02] LABS: ANION GAP 6 (8-16); BLOOD UREA NITROGEN 30 mg/dL (7-18); CHLORIDE 105 mmol/L (98-107); CO2 29 mmol/L (21-32); CREATININE 1.4 mg/dL (0.7-1.3); GLUCOSE,RANDOM 144 mg/dL (74-106); POTASSIUM 4.9 mmol/L (3.5-5.1); SODIUM 140 mmol/L (136-145)
--- NOTE | 2017-07-24 08:35 | CONS ---
DATE OF CONSULTATION: HISTORY: The patient is a 76-year-old male a patient of Dr. Nunez who I am asked to see specifically to address a positive blood culture report. This 76-year-old male with multiple comorbidities including diabetes, hypertension, hyperlipidemia, stroke, and osteoarthritis presented to [facility] with chief complaint of 2 episodes of bright red blood per rectum. He has never had a colonoscopy, and in the history, mention is made that his family had noted possibly some slurred speech, which was transient. A CT scan of the head showed no evidence of stroke here. He was seen in consultation by the GI service and underwent an endoscopy yesterday. This showed severe diverticulosis throughout the colon, and a 5-mm sigmoid polyp was found and removed. Biopsies were obtained, and a recommendation to follow up as an outpatient was made by Dr. Erickson of GI. He has been afebrile. I am not exactly sure why blood cultures were drawn on this patient initially; however, they were possibly as a result of mild leukocytosis in the ER of 12,000. He had no fever or chills. No history of prosthetic material in the body, and now a blood culture in 1 bottle is positive for gram-positive cocci in clusters from the anaerobic bottle. He denies any shortness of breath, chest pain, palpitations, abdominal pain, or urinary complaints. PAST MEDICAL HISTORY: As noted above. MEDICATIONS: Prinivil, Lipitor, insulin. ALLERGIES: None known. SOCIAL HISTORY: Active, every day smoker. Denies history of alcohol use. No travel. Lives with his . Pets include a cat. No unusual hobbies. Retired. FAMILY HISTORY: Reviewed and noncontributory. REVIEW OF SYSTEMS: Respiratory: No cough or shortness of breath. Cardiac: No chest pain or palpitations. Gastrointestinal: GI bleeding as needed. No abdominal pain, vomiting, hematemesis. Genitourinary: No dysuria, hematuria, urinary frequency. PHYSICAL EXAMINATION: General: Reveals an alert male sitting in a chair in no acute distress. Vital Signs: Temperature 97.9, pulse 75, blood pressure 140/58, respirations 18. Neck: Supple with no adenopathy. Lungs: Clear to P and A. Heart: S1, S2. Regular rhythm with a grade 3-4 systolic murmur noted throughout the precordium. Abdomen: Soft and nontender without hepatosplenomegaly, guarding, or rebound. Extremities: No clubbing, cyanosis, or edema. LABORATORY DATA: CBC today pending. Yesterday's CBC 11.3, hemoglobin 8.6, hematocrit 27, platelets 333. BUN 38, creatinine 1.5, INR 1.04. Urinalysis 5 WBCs, 1 RBC. Blood cultures as previously noted. Head CT scan dated July 22 shows microvascular ischemic changes without evidence of acute bleeding or stroke. ASSESSMENT: A 76-year-old male found to have rectal bleeding with endoscopy showing extensive diverticulosis clinically stable from a gastrointestinal standpoint at this time. Positive blood cultures 1/4 bottles likely obtained in response to mildly elevated white cell count in the ER. No evidence for active infection and clinically would suspect this most likely to be a contaminant. At this point, I would not feel the need to give him any antibiotic treatment unless additional blood cultures from both sets positive. Would await final identification of blood culture isolate. No need to repeat his blood cultures at this time. Discharge planning as per his PMD. ARNULFO CALDERON M.D. [id number]
[2017-07-24 08:46] LABS: SERUM IRON SATURATION 11 % (15-55); TOTAL IRON BINDING CAPACITY 276 ug/dL (250-450); UIBC 245 ug/dL (111-343)
[2017-07-24] MEDS: LISINOPRIL 20 MG TABLET (FP) PO SCH ×2 (09:10→21:02)
--- NOTE | 2017-07-24 10:08 | PN ---
Progress Note, Physician Chief Complaint: Pt sitting in chair,in no acute distress. Denies any weakness, chest pain, sob , weakness, n/v. - Current Medication List Current Medications: Active Medications Atorvastatin Calcium (Lipitor -) 20 mg PO HS [facility] Last Admin: 07/23/17 21:07 Dose: 20 mg Insulin Aspart (Novolog Vial Sliding Scale -) 1 vial SQ TIDAC [facility] PRN Reason: Protocol Last Admin: 07/24/17 06:06 Dose: Not Given Lisinopril (Prinivil) 20 mg PO BID [facility] Last Admin: 07/24/17 09:10 Dose: 20 mg Non-Formulary Medication (Timolol 0.5%) 0.3 ml OU DAILY [facility] - Objective Vital Signs: Vital Signs Temperature 97.9 F 07/24/17 05:44 Pulse Rate 75 07/24/17 01:40 Respiratory Rate 18 07/24/17 01:40 Blood Pressure 141/58 07/24/17 01:40 O2 Sat by Pulse Oximetry (%) 99 07/23/17 21:00 Constitutional: Yes: No Distress, Calm Cardiovascular: Yes: WNL, Regular Rate and Rhythm, Murmur. No: Bruit, Gallop Respiratory: Yes: WNL, Regular, CTA Bilaterally, Diminished Gastrointestinal: Yes: WNL, Normal Bowel Sounds, Soft. No: Distention, Tenderness Edema: No Neurological: Yes: WNL, Alert Psychiatric: Yes: WNL, Alert Labs: CBC, BMP 07/24/17 06:00 07/24/17 06:00 INR, PTT INR 1.04 (0.82-1.09) 07/23/17 06:30 Problem List - Problems (1) Encounter for colonoscopy following colon polyp removal Code(s): Z09 - ENCNTR FOR F/U EXAM AFT TRTMT FOR COND OTH THAN MAL NEOPLM; Z86.010 - PERSONAL HISTORY OF COLONIC POLYPS (2) Acute lower GI bleeding Code(s): K92.2 - GASTROINTESTINAL HEMORRHAGE, UNSPECIFIED (3) Diverticulosis of colon Code(s): K57.30 - DVRTCLOS OF LG INT W/O PERFORATION OR ABSCESS W/O BLEEDING (4) Diabetes mellitus Code(s): E11.9 - TYPE 2 DIABETES MELLITUS WITHOUT COMPLICATIONS Qualifiers: Diabetes mellitus type: type 2 Diabetes mellitus complication status: with kidney complications Diabetes mellitus complication detail: with chronic kidney disease 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 (5) Hypertension Code(s): I10 - ESSENTIAL (PRIMARY) HYPERTENSION Qualifiers: Hypertension type: essential hypertension Qualified Code(s): I10 - Essential (primary) hypertension (6) History of stroke Code(s): Z86.73 - PRSNL HX OF TIA (TIA), AND CEREB INFRC W/O RESID DEFICITS (7) Hyperlipidemia Code(s): E78.5 - HYPERLIPIDEMIA, UNSPECIFIED (8) Osteoarthritis (arthritis due to wear and tear of joints) Code(s): M19.90 - UNSPECIFIED OSTEOARTHRITIS, UNSPECIFIED SITE (9) CKD (chronic kidney disease) stage 3, GFR 30-59 ml/min Code(s): N18.3 - CHRONIC KIDNEY DISEASE, STAGE 3 (MODERATE) (10) Positive blood culture Code(s): R78.81 - BACTEREMIA Assessment/Plan (1) Encounter for colonoscopy following colon polyp removal Assessment/Plan: No complications, severe diverticulosis throughout colon, 5mm polyp removed pt to f/u on biopsy results in office in 1 week Code(s): Z09 - ENCNTR FOR F/U EXAM AFT TRTMT FOR COND OTH THAN MALIG NEOPLM; Z86.010 - PERSONAL HISTORY OF COLONIC POLYPS (2)Diverticulosis of colon Assessment/Plan: Severe diverticulosis seen on colonoscopy high fiber diet Code(s): K57.30 - DVRTCLOS OF LG INT W/O PERFORATION OR ABSCESS W/O BLEEDING (3) Acute lower GI bleeding Assessment/Plan: BRBPR x 2, s/p colonoscopy H/h stable, slightly trended down will monitor Code(s): K92.2 - GASTROINTESTINAL HEMORRHAGE, UNSPECIFIED (10) Positive blood culture 1/4 blood cultures with gram+ bacteria pt asymptomatic no need for antibiotics or repeat blood cultures per ID Code(s): R78.81 - BACTEREMIA (4) Diabetes mellitus Assessment/Plan: Will resume metformin and glipizide,ok per nephrology BGM Code(s): E11.9 - TYPE 2 DIABETES MELLITUS WITHOUT COMPLICATIONS Qualifiers: Diabetes mellitus type: type 2 Diabetes mellitus complication status: with kidney complications Diabetes mellitus complication detail: with chronic kidney disease Diabetes mellitus local [employer]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 (5) Hypertension Assessment/Plan: Continue Lisinopril 20mg BID Code(s): I10 - ESSENTIAL (PRIMARY) HYPERTENSION Qualifiers: Hypertension type: essential hypertension Qualified Code(s): I10 - Essential (primary) hypertension (6) CKD (chronic kidney disease) stage 3, GFR 30-59 ml/min Assessment/Plan: Baseline Cr 1.2-2, Followed by outpt Cr improved 1.4 today Nephrology following Code(s): N18.3 - CHRONIC KIDNEY DISEASE, STAGE 3 (MODERATE) (7) History of stroke Assessment/Plan: Pt reported RUE weakness/numbness with slurred speech which resolved Head CT neg US carotids without significant findings/ cardiac echo pending MRI pending Neuro following Hold aspirin for now in the setting of GI bleed Code(s): Z86.73 - PRSNL HX OF TIA (TIA), AND CEREB INFRC W/O RESID DEFICITS (8) Hyperlipidemia Assessment/Plan: Continue simvastatin 20mg Code(s): E78.5 - HYPERLIPIDEMIA, UNSPECIFIED (9) Osteoarthritis (arthritis due to wear and tear of joints) Assessment/Plan: on Aleve at home Hold at the moment Code(s): M19.90 - UNSPECIFIED OSTEOARTHRITIS, UNSPECIFIED SITE Dispo: Home once MRI neg, pending at the moment
--- NOTE | 2017-07-24 10:10 | PN ---
Progress Note (short form) - Note Progress Note: Renal follow up for CKD Pt seen and examined at the bedside awake and alert s/p colonoscopy yesterday that showed diverticulosis, 1 polyp no further bleeding no sob, chest pain, abd pain Vital Signs Temperature 97.9 F 07/24/17 05:44 Pulse Rate 75 07/24/17 01:40 Respiratory Rate 18 07/24/17 01:40 Blood Pressure 141/58 07/24/17 01:40 O2 Sat by Pulse Oximetry (%) 99 07/23/17 21:00 Intake & Output 07/21/17 07/22/17 07/23/17 07/24/17 23:59 23:59 23:59 23:59 Intake Total 1590 350 Balance 1590 350 Weight 61.235 kg 56.155 kg NAD RRR CTA soft NT/ND No LE edema CBC, BMP 07/24/17 06:00 07/24/17 06:00 Laboratory Tests 07/24/17 06:00 Calcium 8.0 L Current Medications Atorvastatin Calcium (Lipitor -) 20 mg PO HS [facility] Last Admin: 07/23/17 21:07 Dose: 20 mg Insulin Aspart (Novolog Vial Sliding Scale -) 1 vial SQ TIDAC [facility] PRN Reason: Protocol Last Admin: 07/24/17 06:06 Dose: Not Given Lisinopril (Prinivil) 20 mg PO BID [facility] Last Admin: 07/24/17 09:10 Dose: 20 mg Non-Formulary Medication (Timolol 0.5%) 0.3 ml OU DAILY [facility] 76 year old gentleman with PMhx of CKD stage 3 with proteinuria (baseline Cr 1.3 -2 as outpatient), Hypertension, DM Type 2, HLD, CVA who presented with complaints of bright red blood per rectum with BUN/Cr of 38/1.5. #CKD Stage 3 with proteinuria/Azotemia Renal function stable continue Lisinopriol oral intake as tolerated avoid nephrotoxins, nsaids, IV contrast if possible #Rectal Bleeding s/p colonoscopy no further bleeding f/u biopsy results #Hypertension continue ACEi #DM Type 2 insulin sliding scale can resume Metformin if Cr remains < 1.5 #Anemia iron staturation low pt would benifit from IV iron but will wait to ensure that all blood cultures are negative transfuse as needed #+ BLood cultures 1/4 bottles no abx at this time per MARTIR Al DO
[2017-07-24 12:10] LABS: BASO % 1.1 % (0-2.0); EOS % 3.3 % (0-4.5); HEMATOCRIT 23.4 % (35.4-49); HEMOGLOBIN 7.5 GM/dL (11.7-16.9); LYMPH % 7.2 % (8-40); MCH 30.1 pg (25.7-33.7); MCHC 32.1 g/dl (32.0-35.9); MEAN CELL VOLUME 93.8 fl (80-96); MEAN PLT VOLUME 7.6 fl (7.5-11.1); MONO % 6.9 % (3.8-10.2); NEUT % 81.5 % (42.8-82.8); PLATELET COUNT 299 K/MM3 (134-434); RBC 2.49 M/mm3 (4.00-5.60); WHITE BLOOD COUNT 6.6 K/mm3 (4.0-10.0)
[2017-07-24] MEDS: metFORMIN HCL 500 MG TABLET (FP) PO SCH (17:39)
--- NOTE | 2017-07-24 18:12 | PN ---
Progress Note (short form) - Note Progress Note: Follow-up cbc shows further drop in h/h. With history of CVA will give 1 unit PRBC to keep hgb >8 (no evidence active bleeding, likely lower values reflective of prior bleed)
[2017-07-24] MEDS: ATORVASTATIN CA 10 MG TABLET (FP) PO SCH (21:02)
[2017-07-25] MEDS ORDERED: PT OWN MED DRAWER 7, Y5N ONE (05:59)
[2017-07-25] MEDS: metFORMIN HCL 500 MG TABLET (FP) PO SCH (06:05)
[2017-07-25] MEDS ORDERED: glipiZIDE-XL 10 MG TAB.ER.24 (FP) PO SCH (07:00)
[2017-07-25 07:59] LABS: BASO % 0.5 % (0-2.0); EOS % 3.5 % (0-4.5); HEMATOCRIT 27.6 % (35.4-49); LYMPH % 5.4 % (8-40); MCHC 32.8 g/dl (32.0-35.9); MEAN CELL VOLUME 91.5 fl (80-96); MEAN PLT VOLUME 8.2 fl (7.5-11.1); NEUT % 83.6 % (42.8-82.8); PLATELET COUNT 310 K/MM3 (134-434); RBC 3.02 M/mm3 (4.00-5.60); WHITE BLOOD COUNT 8.1 K/mm3 (4.0-10.0)
[2017-07-25 08:10] LABS: CHLORIDE 104 mmol/L (98-107); POTASSIUM 5.3 mmol/L (3.5-5.1); SODIUM 138 mmol/L (136-145)
[2017-07-25 08:17] LABS: ANION GAP 7 (8-16); BLOOD UREA NITROGEN 26 mg/dL (7-18); CALCIUM 7.9 mg/dL (8.5-10.1); CO2 27 mmol/L (21-32); CREATININE 1.5 mg/dL (0.7-1.3); GLUCOSE,RANDOM 208 mg/dL (74-106); PHOSPHOROUS 2.9 mg/dL (2.5-4.9)
--- NOTE | 2017-07-25 08:52 | DS ---
Physical Examination Vital Signs: Vital Signs Temperature 99.0 F 07/25/17 06:00 Pulse Rate 78 07/25/17 06:00 Respiratory Rate 18 07/25/17 06:00 Blood Pressure 146/74 07/25/17 06:00 O2 Sat by Pulse Oximetry (%) 99 07/24/17 21:00 Constitutional: Yes: No Distress, Calm Eyes: Yes: WNL, Conjunctiva Clear Cardiovascular: Yes: WNL, Regular Rate and Rhythm, Murmur Respiratory: Yes: WNL, Regular, CTA Bilaterally. No: Rales, Rhonchi, SOB, Wheezes Gastrointestinal: Yes: WNL, Normal Bowel Sounds, Soft. No: Distention Musculoskeletal: Yes: WNL Extremities: Yes: WNL Edema: No Neurological: Yes: WNL, Alert, Oriented Psychiatric: Yes: WNL, Alert, Oriented Labs: CBC, BMP 07/25/17 06:20 07/25/17 06:20 Discharge Summary Reason For Visit: GI HEMORRHAGE Current Active Problems Acute lower GI bleeding (Acute) CKD (chronic kidney disease) (Acute) CKD (chronic kidney disease) stage 3, GFR 30-59 ml/min (Acute) Diverticulosis of colon (Acute) Encounter for colonoscopy following colon polyp removal (Acute) GI bleed (Acute) Gram-positive bacteremia (Acute) History of stroke (Acute) Hyperlipidemia (Acute) Osteoarthritis (arthritis due to wear and tear of joints) (Acute) Positive blood culture (Acute) Hospital Course: is pleasant 76 year old male pmh of DM, HTN, CKD-2,Hyperlipidemia, Stroke, OA, who presents with new onset BRBPRx2 and c/o of rue numbness/weakness /slurred speech, and elevated cr 1.5. He had a colonoscopy on 07/23 with without complications, colonoscopy showed severe diverticulosis throughout colon, polyp removed, biopsy sent. Pt had a bm this am with dark blood which is most likely old/residue of prev bleed. Will hold aspirin until pt follows up with GI and PCP in 1 week. Neuro work up didnt reveal any significant findings concerning of a TIA/CVA. Potassium 5.3 with cr 1.5 this am , pt is followed by Dr.Jolly Valdez outpt nephrology for ckd. Ok to continue metformin/glipizide per Nephrology. Will have pt follow low pot diet and f/u outpt. Pt also had 1/4 blood cultures positive, possibly contamination, no intervention needed per ID. Otherwise, pt doing well without significant issues. Condition: Good - Instructions Diet, Activity, Other Instructions: High fiber diet, limit potassium in diet, activity as tolerated Hold aspirin for now until f/u with PCP Go to ED if worsening symptoms of chest pain, sob, unilateral weakness, n/v/d, or fever/chills Referrals: Curt Nunez MD [Primary Care Provider] - 1 Week (Please f/u with him in 1 week) Mitchell Erickson MD [Staff Physician] - 1 Week (Please f/u in 1 week for biopsy results ) Danielle Hood MD [Staff Physician] - 1 Week Disposition: HOME - Home Medications Comprehensive Discharge Medication List: Ambulatory Orders Lisinopril [Prinivil -] 20 mg PO BID 05/11/14 Metformin HCl [Glucophage] 1,000 mg PO BID 05/11/14 Simvastatin [Zocor -] 20 mg PO HS 05/11/14 Timolol 0.5% [Timoptic] 1 drop OU DAILY 05/11/14 Aspirin [ASA -] 325 mg PO DAILY 09/10/14 Glipizide [Glipizide ER] 10 mg PO BID 09/10/14 HOLD ASPIRIN UNTIL F/U
[2017-07-25 08:58] VITALS: BP 149/62; PULSE 86; TEMP 98.5
[2017-07-25] MEDS: LISINOPRIL 20 MG TABLET (FP) PO SCH (09:00)
--- NOTE | 2017-07-25 09:04 | PN ---
Progress Note (short form) - Note Progress Note: Renal follow up for CKD Pt seen and examined at the bedside awake and alert no acute complaints making urine has some blood in stool overnight Vital Signs Temperature 98.5 F 07/25/17 08:55 Pulse Rate 86 07/25/17 08:55 Respiratory Rate 20 07/25/17 08:55 Blood Pressure 149/62 07/25/17 08:55 O2 Sat by Pulse Oximetry (%) 99 07/24/17 21:00 Intake & Output 07/22/17 07/23/17 07/24/17 07/25/17 23:59 23:59 23:59 23:59 Intake Total 1590 1420 392 Output Total 425 Balance 1590 1420 -33 Weight 61.235 kg 56.155 kg 57.266 kg NAD RRR CTA soft NT/ND No LE edema CBC, BMP 07/25/17 06:20 07/25/17 06:20 Current Medications Atorvastatin Calcium (Lipitor -) 20 mg PO [facility] Last Admin: 07/24/17 21:02 Dose: 20 mg Glipizide (Glucotrol Xl -) 10 mg PO BIDAC [facility] [place] Last Admin: 07/25/17 06:16 Dose: 10 mg Lisinopril (Prinivil) 20 mg PO BID [facility] Last Admin: 07/25/17 09:00 Dose: 20 mg Metformin HCl (Glucophage -) 1,000 mg PO BIDAC [facility] Last Admin: 07/25/17 06:05 Dose: 1,000 mg Non-Formulary Medication (Timolol 0.5%) 0.3 ml OU DAILY [facility] 76 year old gentleman with PMhx of CKD stage 3 with proteinuria (baseline Cr 1.3 -2 as outpatient), Hypertension, DM Type 2, HLD, CVA who presented with complaints of bright red blood per rectum with BUN/Cr of 38/1.5. #CKD Stage 3 with proteinuria/Azotemia Renal function remains stable pt with mild hyperkalemia, discussed importance of limiting high potassium foods pt has appointment with Dr. Hood this week, will recehck labs following can continue lisinopril oral fluid intake as tolerated #Rectal Bleeding s/p colonoscopy no further bleeding f/u biopsy results #Hypertension continue ACEi #DM Type 2 insulin sliding scale can resume Metformin if Cr remains < 1.5 #+ BLood cultures 1/4 bottles no abx at this time per ID Tomás Al DO
--- NOTE | 2017-07-27 11:10 | PATH ---
Surgical Pathology Report Patient Name: ESTRELLA ECHAVARRIA [facility]. Rec. #: [id number] /Age/Gender: 1940 (Age: 76) / M Account: [id number] Location: 4 SO PEDS/ADOL Taken: 07/23/2017 Received: 07/26/2017 Reported: 07/27/2017 Physicians: Joaquín Mcgee M.D. Specimen(s) Received A: ASCENDING COLON PROMINENT BULB BIOPSY B: SIGMOID COLON POLYP Clinical History Preoperative diagnosis: Hematochezia Postoperative diagnosis: Diverticulosis, prominent fold, sigmoid polyp Final Diagnosis A. COLON, ASCENDING, BIOPSY: NONSPECIFIC FOCAL ACTIVE COLITIS, AND HYPERPLASIA OF MUCOSA ASSOCIATED LYMPHOID TISSUE. NO ARCHITECTURAL DISTORTION, RIGHT LUMBAR, OR DYSPLASIA IDENTIFIED. B. COLON, SIGMOID, BIOPSY: COLONIC MUCOSA WITH MILD HYPERPLASTIC CHANGES. NO ADENOMATOUS CHANGE IDENTIFIED. Comment: The injury pattern is nonspecific, and can be seen in a variety of disease conditions including acute self-limiting colitis and idiopathic inflammatory bowel disease. Recommend correlation with clinical findings and followup as clinically indicated. Electronically Signed Nilson Johnson M.D. Gross Description A. Received in formalin, labeled "biopsy ascending colon prominent fold" are 4 hood, irregular portions of soft tissue averaging 0.1 cm. in greatest dimension. The specimens are submitted in toto in one cassette. B. Received in formalin, labeled "sigmoid colon polyp" is a hood, irregular portion of soft tissue measuring 0.4 cm. in greatest dimension. The specimen is submitted in toto in one cassette. 07/26/2017 saudi07/26/2017
== END 2017-07-25 11:44 | disposition home or self-care (01) | DRG 378 ==
LOC: JER 06:49 → OBSVTOIN 09:01 → JERBED 09:01 → J4S 07-23 12:57
PROVIDERS: ADMIT Internal Medicine; ATTEND Internal Medicine
PROC: 0DBN8ZX Excision of Sigmoid Colon, Via Natural or Artificial Opening Endoscopic, Diagnostic (ICD-10-PCS; 2017-07-23)
PROC: 0DBK8ZX Excision of Ascending Colon, Via Natural or Artificial Opening Endoscopic, Diagnostic (ICD-10-PCS; principal; 2017-07-23 11:30)
PROC: 30233N1 Transfusion of Nonautologous Red Blood Cells into Peripheral Vein, Percutaneous Approach (ICD-10-PCS; 2017-07-24)
DX: K92.2 Gastrointestinal hemorrhage, unspecified (principal); R71.0 Precipitous drop in hematocrit; E78.5 Hyperlipidemia, unspecified; Z86.73 Personal history of transient ischemic attack (TIA), and cerebral infarction without residual deficits; Z79.84 Long term (current) use of oral hypoglycemic drugs; M19.90 Unspecified osteoarthritis, unspecified site; E11.22 Type 2 diabetes mellitus with diabetic chronic kidney disease; I12.9 Hypertensive chronic kidney disease with stage 1 through stage 4 chronic kidney disease, or unspecified chronic kidney disease; N18.3 Chronic kidney disease, stage 3 (moderate); E87.5 Hyperkalemia; K57.90 Diverticulosis of intestine, part unspecified, without perforation or abscess without bleeding; K63.5 Polyp of colon; K64.8 Other hemorrhoids; K57.30 Diverticulosis of large intestine without perforation or abscess without bleeding; K55.20 Angiodysplasia of colon without hemorrhage
CPT/HCPCS: 36415; 36430; 70450-TC; 70551-TC; 71045-TC; 80048; 80053; 81003; 81015; 82272; 82728; 82803; 82962; 83540; 83550; 83605; 83735; 84100; 85025; 85027; 85610; 85730; 86850; 86900; 86901; 86922; 87040; 87076; 93005; 93010; 93306-TC; 93880-TC; 99285-25; P9038; P9058

== ENCOUNTER 2017-08-01 21:10 | Inpatient (IN) | payer OTHER, MEDICARE ==
--- NOTE | 2017-08-01 21:33 | PDOC ---
History of Present Illness <Piper Underwood - Last Filed: 08/01/17 23:39> - General History Source: Patient Exam Limitations: No Limitations - History of Present Illness Initial Comments: 08/01/17 21:31 Patient is a 76 -year-old male with history of COPD, GI bleed, diverticulitis, diverticulosis, HLD, CVA, A, intussusception, umbilical hernia, DM, HTN, sinus cancer with excision, polypectomy, brought by his for complaints of shortness of breath, weakness, poor appetite. Patient was recently admitted for a GI bleed and was discharged from the hospital a week ago. states that post discharge he has been feeling weak, has poor appetite, and today she noticed that he was having some shortness of breath, so called EMS for transport to the emergency room. notes that it seems as if the patient has loss weight since being out of the hospital. In route by EMS noted to have a fingerstick of 513, and was oxygenating in the low 90s was put on oxygen with improvement. Patient is a poor historian, history obtained from . PMD: Dr. Esqueda PMHX: as above PSocHX; (+) cig 1ppd, (-) etoh, (-) drugs ALL: NKDA GENERAL/CONSTITUTIONAL: [No fever or chills. No weakness. No weight change.] HEAD, EYES, EARS, NOSE AND THROAT: [No change in vision. No ear pain or discharge. No sore throat.] CARDIOVASCULAR: [No chest pain (+) shortness of breath.] RESPIRATORY: (+) SOB, (+) cough, wheezing, or hemoptysis.] GASTROINTESTINAL: [No nausea, vomiting, diarrhea or constipation. No rectal bleeding.] GENITOURINARY: [No dysuria, frequency, or change in urination.] MUSCULOSKELETAL: [No joint or muscle swelling or pain. No neck or back pain.] SKIN AND BREASTS: [No rash or easy bruising.] NEUROLOGIC: [No headache, vertigo, loss of consciousness, or loss of sensation.] PSYCHIATRIC: [No depression or anxiety.] ENDOCRINE: [No increased thirst. (+) abnormal weight change.] HEMATOLOGIC/LYMPHATIC: (+) anemia, easy bleeding, or history of blood clots.] ALLERGIC/IMMUNOLOGIC: [No hives or skin allergy. No latex allergy.] GENERAL: [The patient is awake, alert, and fully oriented, in mild distress.] HEAD: [Normal with no signs of trauma.] EYES: [Pupils equal, round and reactive to light, extraocular movements intact, sclera anicteric, conjunctiva clear.] ENT: [Ears normal, nares patent, oropharynx clear without exudates. dry mucous membranes.] NECK: [Normal range of motion, supple without lymphadenopathy, JVD, or masses.] LUNGS: [Breath sounds equal, No wheezes, (+) crackles, b/l.] HEART: [Regular rate and rhythm, normal S1 and S2 without murmur, rub.] ABDOMEN: [Soft, nontender, normoactive bowel sounds. No guarding, no rebound. No masses.] RECTAL: brown stool, stool occult neg EXTREMITIES: [Normal range of motion, no edema. No clubbing or cyanosis. No cords, erythema, or tenderness.] NEUROLOGICAL: [Cranial nerves II through XII grossly intact. Normal speech, PSYCH: [Normal mood, normal affect.] <Juan Rodríguez - Last Filed: 08/02/17 05:03> - General Chief Complaint: Shortness of Breath Stated Complaint: DIFFICULT TO BREATH Time Seen by Provider: 08/01/17 21:14 Past History <Piper Underwood - Last Filed: 08/01/17 23:39> - Past Medical History CVA: Yes Diabetes: Yes (NIDDM) GI Disorders: Yes (GI bleed) HTN: Yes Hypercholesterolemia: Yes - Surgical History Abdominal Surgery: Yes (Hernia repair) Orthopedic Surgery: Yes (R 5th toe amputaion, L 5th metatarsal bone removed) - Suicide/Smoking/Psychosocial Hx Smoking History: Current every day smoker Have you smoked in the past 12 months: Yes Number of Cigarettes Smoked Daily: 15 Information on smoking cessation initiated: No 'Breaking Loose' booklet given: 07/23/17 Hx Alcohol Use: No Drug/Substance Use Hx: No Substance Use Type: None Hx Substance Use Treatment: No <Juan Rodríguez - Last Filed: 08/02/17 05:03> - Past Medical History Allergies/Adverse Reactions: Allergies Allergy/AdvReac Type Severity Reaction Status Date / Time No Known Allergies Allergy Verified 02/04/18 21:17 Home Medications: Ambulatory Orders Lisinopril [Prinivil -] 20 mg PO BID 05/11/14 Metformin HCl [Glucophage] 1,000 mg PO BID 05/11/14 Simvastatin [Zocor -] 20 mg PO HS 05/11/14 Timolol 0.5% [Timoptic] 1 drop OU DAILY 05/11/14 Aspirin [ASA -] 325 mg PO DAILY 09/10/14 Glipizide [Glipizide ER] 10 mg PO BID 09/10/14 Ferrous Sulfate [Feosol] 325 mg PO DAILY #30 tablet 07/25/17 *Physical Exam - Vital Signs Last Vital Signs Temp Pulse Resp BP Pulse Ox 98.1 F 97 H 20 159/66 92 L 08/01/17 21:17 08/01/17 21:17 08/01/17 21:17 08/01/17 21:17 08/01/17 21:17 <Piper Underwood - Last Filed: 08/01/17 23:39> - Vital Signs Last Vital Signs Temp Pulse Resp BP Pulse Ox 98.1 F 97 H 20 159/66 92 L 08/01/17 21:17 08/01/17 21:17 08/01/17 21:17 08/01/17 21:17 08/01/17 21:17 <Juan Rodríguez - Last Filed: 08/02/17 05:03> ED Treatment Course - LABORATORY CBC & Chemistry Diagram: 08/01/17 21:40 08/01/17 21:40 - ADDITIONAL ORDERS Additional order review: Laboratory Results 08/01/17 08/01/17 08/01/17 23:10 23:00 21:40 PT with INR INR Puncture Site Right brachial ABG pH 7.30 L ABG pCO2 at Pt Temp 29.0 L ABG pO2 at Pt Temp 87.1 ABG HCO3 13.7 L* ABG O2 Sat (Measured) 95.3 ABG O2 Content 9.9 L* ABG Base Excess -11.4 L* Ra Test Positive O2 Delivery Device Nasal cannula Oxygen Flow Rate 3l Sodium 134 L Potassium 5.4 H Chloride 99 Carbon Dioxide 16 L D Anion Gap 19 H BUN 81 H D Creatinine 2.4 H D Creat Clearance w eGFR 26.31 Random Glucose 480 H* D Calcium 7.1 L Total Bilirubin 0.4 AST 15 D ALT 15 D Alkaline Phosphatase 100 Creatine Kinase 41 Troponin I 0.03 D B-Natriuretic Peptide 2491.06 H Total Protein 5.4 L Albumin 2.4 L Stool Occult Blood Negative 08/01/17 21:40 PT with INR 12.60 H INR 1.12 Puncture Site ABG pH ABG pCO2 at Pt Temp ABG pO2 at Pt Temp ABG HCO3 ABG O2 Sat (Measured) ABG O2 Content ABG Base Excess Ra Test O2 Delivery Device Oxygen Flow Rate Sodium Potassium Chloride Carbon Dioxide Anion Gap BUN Creatinine Creat Clearance w eGFR Random Glucose Calcium Total Bilirubin AST ALT Alkaline Phosphatase Creatine Kinase Troponin I B-Natriuretic Peptide Total Protein Albumin Stool Occult Blood 08/01/17 22:03 Influenza Types A,B Antigen ([place]) - Final Nasopharyngeal Swab - Final 08/01/17 21:40 RBC 2.54 L MCV 92.7 MCHC 31.5 L RDW 15.1 MPV 7.9 Neutrophils % 93.8 H Lymphocytes % 1.2 L D Monocytes % 5.0 Eosinophils % 0.0 D Basophils % 0.0 - RADIOLOGY Radiology Studies Ordered: Category Date Time Status CHEST CT WITHOUT CONTRAST [CT] Stat CT Scan 08/01/17 22:28 Ordered - Medications Given in the ED: ED Medications Discontinued Medications Generic Name Dose Route Start Last Admin Trade Name Freq PRN Reason Stop Dose Admin Insulin Human Regular 5 units 08/01/17 22:44 08/01/17 22:56 Novolin R Vial *For Ivpush Or Iv Drip Only* IVPUSH 08/01/17 22:45 5 unit ONCE ONE Administration <Piper Underwood - Last Filed: 08/01/17 23:39> - LABORATORY CBC & Chemistry Diagram: 08/01/17 21:40 08/02/17 03:10 - RADIOLOGY Radiology Studies Ordered: Category Date Time Status CHEST X-RAY PORTABLE* [RAD] Stat Radiology 08/01/17 21:27 Ordered <Juan Rodríguez - Last Filed: 08/02/17 05:03> Medical Decision Making - Medical Decision Making 08/01/17 23:39 Patient Name: ESTRELLA ECHAVARRIA THIS IS A PRELIMINARY REPORT FROM [facility] DATE OF SERVICE: 2017-08-01 21:31:48 IMAGES: 2 EXAM: CHEST X-RAY PORTABLE* HISTORY: Hypoxia COMPARISON: None. FINDINGS: Heart size is normal. Aorta is minimally tortuous. The lungs are clear. No pleural effusion. IMPRESSION: No acute pathology. <Piper Underwood - Last Filed: 08/01/17 23:39> - Medical Decision Making 08/01/17 22:51 Patient is a 76 -year-old male with history of COPD, GI bleed, diverticulitis, diverticulosis, HLD, CVA, A, intussusception, umbilical hernia, DM, HTN, sinus cancer with excision, polypectomy, brought by his for complaints of shortness of breath, weakness, poor appetite. on ED has rales to mid lung, will get labs r/o chf. labs reviewed 08/01/17 22:53 Laboratory Tests 08/01/17 08/01/17 08/01/17 21:40 21:40 21:40 WBC 16.8 H D Hgb 7.4 L D Hct 23.6 L Plt Count 399 D PT with INR 12.60 H INR 1.12 Sodium 134 L Potassium 5.4 H Chloride 99 Carbon Dioxide 16 L D Anion Gap 19 H BUN 81 H D Creatinine 2.4 H D Random Glucose 480 H* D Troponin I 0.03 D B-Natriuretic Peptide 2491.06 H 08/01/17 22:57 willl get ABG due to anion gap of 19 r/o ketoacidosis regular insulin 5 unit IV Albuterol neb x 2 CXR read abd neg EKG SR rate 92, NAD, LVH, 08/02/17 03:09 Patient Name: ESTRELLA ECHAVARRIA THIS IS A PRELIMINARY REPORT FROM [facility] DATE OF SERVICE: 2017-08-02 01:41:16 IMAGES: 458 EXAM: CHEST CT WITHOUT CONTRAST HISTORY: Bilateral pneumonia COMPARISON: None. FINDINGS: There is a 4.6 cm ascending aortic aneurysm. There is no significant mediastinal or hilar adenopathy. The heart size is normal. Coronary artery and aortic valve calcifications are noted. There is a calcified mitral annulus. The trachea and bronchi are patent. There is no pleural or pericardial effusion. There are bilateral lobular infiltrates, consistent with pneumonia, predominating in the right upper lobe. Upper abdominal structures are notable for extensive vascular calcifications. IMPRESSION: 4.6 cm ascending aortic aneurysm. Bilateral lobular pneumonia. THIS DOCUMENT HAS BEEN ELECTRONICALLY SIGNED Franklin Velazquez MD 08/02/2017 02:04 AMIRA Yanes Please call [facility] [phone] ([phone]) with questions. INTERPRETING RADIOLOGIST: Pedro Velazquez MD Electronically Signed: Aug 02, 2017 02:07AM ES repeat fs >500 Blood culture ordered, lactic acid bmp repeated Vancomycin 1 gm IV and Zosyn 3.375g IV given will start insulin dip after repeat bmp case d/w Dr. Joseph will admit, recommend ICU admission paged Kb Watson aircraft instrument engineer for ICU orders. repeat bmp with anion gap of 22, insulin drip started 08/02/17 04:51 d/w with Dr. Watson will accept for ICU admission <Juan Rodríguez - Last Filed: 08/02/17 05:03> *DC/Admit/Observation/Transfer <Piper Underwood - Last Filed: 08/01/17 23:39> - Discharge Dispostion Admit: Yes <Juan Rodríguez - Last Filed: 08/02/17 05:03> Diagnosis at time of Disposition: Hospital-acquired pneumonia Aortic aneurysm Qualifiers: Aortic location: thoracic aorta Presence of rupture: without rupture Qualified Code(s): I71.2 - Thoracic aortic aneurysm, without rupture DKA (diabetic ketoacidoses) Qualifiers: Diabetes mellitus type: type 2 Diabetes mellitus complication detail: without coma Qualified Code(s): E11.10 - Type 2 diabetes mellitus with ketoacidosis without coma Diagnosis at time of Disposition: (Ruled Out): Uncontrolled diabetes mellitus - Discharge Dispostion Condition at time of disposition: Stable
[2017-08-01 21:51] LABS: HEMATOCRIT 23.6 % (35.4-49); HEMOGLOBIN 7.4 GM/dL (11.7-16.9); LYMPH % 1.2 % (8-40); MCH 29.2 pg (25.7-33.7); MCHC 31.5 g/dl (32.0-35.9); MEAN CELL VOLUME 92.7 fl (80-96); MEAN PLT VOLUME 7.9 fl (7.5-11.1); NEUT % 93.8 % (42.8-82.8); PLATELET COUNT 399 K/MM3 (134-434); RBC 2.54 M/mm3 (4.00-5.60); RDW 15.1 % (11.9-15.9); WHITE BLOOD COUNT 16.8 K/mm3 (4.0-10.0)
[2017-08-01 22:03] LABS: INR 1.12 (0.82-1.09); PROTHROMBIN TIME (PATIENT) 12.6 SEC (9.98-11.88)
[2017-08-01 22:15] LABS: ALBUMIN 2.4 g/dl (3.4-5.0); ANION GAP 19 (8-16); BILIRUBIN,TOTAL 0.4 mg/dL (0.2-1.0); BLOOD UREA NITROGEN 81 mg/dL (7-18); CALCIUM 7.1 mg/dL (8.5-10.1); CHLORIDE 99 mmol/L (98-107); CO2 16 mmol/L (21-32); CREATININE 2.4 mg/dL (0.7-1.3); POTASSIUM 5.4 mmol/L (3.5-5.1); SGOT/AST 15 U/L (15-37); SODIUM 134 mmol/L (136-145); TOT PROT 5.4 g/dl (6.4-8.2)
[2017-08-01 22:27] LABS: ALK PHOS 100 U/L (45-117); N-TERMINAL BNP 2491.06 pg/ml (5-450); SGPT/ALT 15 U/L (12-78)
[2017-08-01 22:32] LABS: GLUCOSE,RANDOM 480 mg/dL (74-106)
[2017-08-01] MEDS ORDERED: INSULIN REGULAR HUMAN 100 UNITS/ML *VIAL IVPUSH ONE (22:44)
[2017-08-01] MEDS ORDERED: INSULIN REGULAR HUMAN 100 UNITS/ML *VIAL ONE (23:05)
[2017-08-01] MEDS ORDERED: ALBUTEROL SO4 0.083% IH SOL 2.5 MG/3 ML VIAL.NEB. NEB ONE ×3 (23:16→23:38)
[2017-08-01 23:24] LABS: ARTERIAL BLD GAS O2 SATURATION 95.3 % (90-98.9); ARTERIAL BLOOD GAS BASE EXCESS -11.4 meq/l (-2-2); ARTERIAL BLOOD GAS PO2 87.1 mmHg (70-100)
[2017-08-01 23:29] LABS: ALLENS TEST POSITIVE
[2017-08-01] MEDS ORDERED: FUROSEMIDE 40 MG/4 ML INJECTABLE VIAL IVPUSH ONE (23:40)
[2017-08-01] MEDS ORDERED: FUROSEMIDE 40 MG/4 ML INJECTABLE VIAL ONE (23:47)
[2017-08-02] MEDS ORDERED: VANCOMYCIN 1,000 MG in DEXTROSE 5%-WATER - 250 ML IVPB ONE (03:03)
[2017-08-02] MEDS ORDERED: PIPERACILLIN/TAZOB 3.375 GM/50 ML PRE-DOCKED IVPB ONE (03:03)
[2017-08-02] MEDS ORDERED: INSULIN REGULAR 100 UNITS in SODIUM CHLORIDE 99 ML IVPB SCH ×3 (03:15→14:45)
--- NOTE | 2017-08-02 03:42 | HP ---
Admitting History and Physical - Primary Care Physician PCP: Curt Nunez - Admission Chief Complaint: SOB, Cough, Malaise History of Present Illness: This is a 76 y/o man with a PMHx of: HTN, HLD, DM, recent admission for GI Bleed 07/22-07/25. Who presents to the ED with increased SOB, cough, generalized malaise. Patient also reports feeling tired and weak. Patient denies fever, chills, dizziness, MCCAULEY, CP, palpitations, AP, N/V/D, constipation, melena, hematochezia, dysuria. UTD- Influenza, Prevnar 13 vaccines, per patient. 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 Lt toe amput (old) tonsillect), Tonsillectomy (Lt toe amp (old)) - Smoking History Smoking history: Current every day smoker Have you smoked in the past 12 months: Yes Aproximately how many cigarettes per day: 15 - Alcohol/Substance Use Hx Alcohol Use: No History of Substance Use: reports: None - Social History ADL: Independent History of Recent Travel: No Home Medications - Allergies Allergies/Adverse Reactions: Allergies Allergy/AdvReac Type Severity Reaction Status Date / Time No Known Allergies Allergy Verified 08/01/17 21:17 - Home Medications Home Medications: Ambulatory Orders Lisinopril [Prinivil -] 20 mg PO BID 05/11/14 Metformin HCl [Glucophage] 1,000 mg PO BID 05/11/14 Simvastatin [Zocor -] 20 mg PO HS 05/11/14 Timolol 0.5% [Timoptic] 1 drop OU DAILY 05/11/14 Aspirin [ASA -] 325 mg PO DAILY 09/10/14 Glipizide [Glipizide ER] 10 mg PO BID 09/10/14 Ferrous Sulfate [Feosol] 325 mg PO DAILY #30 tablet 07/25/17 Family Disease History - Family Disease History Family Disease History: Diabetes: Brother (liver Ca, CKD), Heart Disease: Father , Mother (ill descript GI illness), Brother, CA: Brother, Other: Mother Review of Systems - Review of Systems Constitutional: reports: Malaise, Weakness Eyes: reports: No Symptoms HENT: reports: No Symptoms Neck: reports: No Symptoms Cardiovascular: reports: Shortness of Breath Respiratory: reports: Cough, SOB, SOB on Exertion Gastrointestinal: reports: No Symptoms Genitourinary: reports: No Symptoms Breasts: reports: No Symptoms Reported Musculoskeletal: reports: No Symptoms Integumentary: reports: No Symptoms Neurological: reports: No Symptoms Endocrine: reports: No Symptoms Hematology/Lymphatic: reports: No Symptoms Psychiatric: reports: No Symptoms Physical Examination Vital Signs: Vital Signs Temperature 98.1 F 08/01/17 21:17 Pulse Rate 97 H 08/01/17 21:17 Respiratory Rate 20 08/01/17 21:17 Blood Pressure 159/66 08/01/17 21:17 O2 Sat by Pulse Oximetry (%) 92 L 08/01/17 21:17 Constitutional: Yes: No Distress, Calm, Cachectic Eyes: Yes: Conjunctiva Clear HENT: Yes: WNL, Atraumatic, Normocephalic Neck: Yes: WNL, Supple, Trachea Midline Cardiovascular: Yes: Regular Rate and Rhythm, S1, S2 Respiratory: Yes: On Nasal O2, Rales, Rhonchi, SOB, SOB on Exertion, Wheezes Renal/: Yes: WNL Breast(s): Yes: WNL Musculoskeletal: Yes: WNL Extremities: Yes: WNL Edema: No Peripheral Pulses WNL: Yes Integumentary: Yes: Bruising (eccyhmotic bruising b/l upper extremities) Neurological: Yes: Alert, Oriented, Cran Nerves II-XII Intact ...Motor Strength: WNL Psychiatric: Yes: WNL, Alert, Oriented Labs: CBC, BMP 08/01/17 21:40 Laboratory Results - last 24 hr 08/01/17 08/01/17 08/01/17 21:40 21:40 21:40 WBC 16.8 H D RBC 2.54 L Hgb 7.4 L D Hct 23.6 L MCV 92.7 MCH 29.2 MCHC 31.5 L RDW 15.1 Plt Count 399 D MPV 7.9 Neutrophils % 93.8 H Lymphocytes % 1.2 L D Monocytes % 5.0 Eosinophils % 0.0 D Basophils % 0.0 PT with INR 12.60 H INR 1.12 Puncture Site ABG pH ABG pCO2 at Pt Temp ABG pO2 at Pt Temp ABG HCO3 ABG O2 Sat (Measured) ABG O2 Content ABG Base Excess Ra Test O2 Delivery Device Oxygen Flow Rate Sodium 134 L Potassium 5.4 H Chloride 99 Carbon Dioxide 16 L D Anion Gap 19 H BUN 81 H D Creatinine 2.4 H D Creat Clearance w eGFR 26.31 Random Glucose 480 H* D Calcium 7.1 L Total Bilirubin 0.4 AST 15 D ALT 15 D Alkaline Phosphatase 100 Creatine Kinase 41 Troponin I 0.03 D B-Natriuretic Peptide 2491.06 H Total Protein 5.4 L Albumin 2.4 L Stool Occult Blood 18 08/01/17 23:00 23:10 WBC RBC Hgb Hct MCV MCH MCHC RDW Plt Count MPV Neutrophils % Lymphocytes % Monocytes % Eosinophils % Basophils % PT with INR INR Puncture Site Right brachial ABG pH 7.30 L ABG pCO2 at Pt Temp 29.0 L ABG pO2 at Pt Temp 87.1 ABG HCO3 13.7 L* ABG O2 Sat (Measured) 95.3 ABG O2 Content 9.9 L* ABG Base Excess -11.4 L* Ra Test Positive O2 Delivery Device Nasal cannula Oxygen Flow Rate 3l Sodium Potassium Chloride Carbon Dioxide Anion Gap BUN Creatinine Creat Clearance w eGFR Random Glucose Calcium Total Bilirubin AST ALT Alkaline Phosphatase Creatine Kinase Troponin I B-Natriuretic Peptide Total Protein Albumin Stool Occult Blood Negative Imaging - Results Chest X-ray: Image Reviewed EKG: Image Reviewed Problem List - Problems (1) DKA (diabetic ketoacidoses) Assessment/Plan: - AG 16~22 - Glucose 484~514 - Insulin Drip started in ED - Serial BMPs - Finger Sticks Q1H until FS < 200, then Q2-4H - ABG- 7.3/29.13.7 - Will repeat ABG in am and treat accordingly - Continue cardiac monitoring - HgbA1c in am - Once AG closed, FS < 200 will start on D5 1/2NS with KCL - Hold Metformin, Glipizide Code(s): E13.10 - OTH DIABETES MELLITUS WITH KETOACIDOSIS WITHOUT COMA Qualifiers: Diabetes mellitus type: type 2 Diabetes mellitus complication detail: without coma Qualified Code(s): E11.10 - Type 2 diabetes mellitus with ketoacidosis without coma (2) Sepsis Assessment/Plan: - Likely secondary to HAP - Admit to ICU - qSOFA 0 - SIRS Criteria Met P- 97, WBC 16.8, Source- PNA - Blood Cultures-pending - Urine Culture-pending - Will add Legionella - Lactic Acid- 2.0 - Will start on broad spectrum ABX - Appreciate ID Consult - Appreciate [employer] Marketing Project Specialist Consult - O2 - Monitor CBC, BMP - Monitor vitals - Hold Metformin Code(s): A41.9 - SEPSIS, UNSPECIFIED ORGANISM (3) Hospital-acquired pneumonia Assessment/Plan: - CURB65 2 - recent admission 07/20-07/25 - Chest Xray image- Bilateral Infiltrates, CM, - BCx2-pending - Urine Legionella - Zosyn, Vancomycin given in ED, will continue for pseudomonal coverage - Sputum culture - Code(s): J18.9 - PNEUMONIA, UNSPECIFIED ORGANISM (4) Hyperkalemia Assessment/Plan: - Likely secondary to ACEi and mildly hypovalemia - Given Insulin, Albuterol neb in ED - Monitor BMP - EKG reviewed no peaked Ts Code(s): E87.5 - HYPERKALEMIA (5) CKD (chronic kidney disease) Assessment/Plan: - Cr 2.4~2.8 not at baseline (1.3~2 outpatient) - Will hold ACEi for now - Appreciate Nephrology Consult - Continue to monitor BMP Code(s): N18.9 - CHRONIC KIDNEY DISEASE, UNSPECIFIED (6) Hypertension Assessment/Plan: - Controlled - Monitor BP - Will hold Lisinopril secondary to CKD - Appreciate Nephrology Consult - Monitor renal function Code(s): I10 - ESSENTIAL (PRIMARY) HYPERTENSION Qualifiers: Hypertension type: essential hypertension Qualified Code(s): I10 - Essential (primary) hypertension (7) Hyperlipidemia Assessment/Plan: - Continue Zocor Code(s): E78.5 - HYPERLIPIDEMIA, UNSPECIFIED (8) DVT prophylaxis Assessment/Plan: - OOB - SCDs - Heparin SQ Code(s): SXW0005 - Assessment/Plan This is a 76 y/o man with a PMHx of: HTN, HLD, DM, Anemia, CKD, Stroke, GI Bleed. Admitted to ICU for DKA, Sepsis secondary to Hospital Acquired Pneumonia. F/E/N - Fluid restrictions - Monitor K - NPO Visit type - Emergency Visit Emergency Visit: Yes ED Registration Date: 08/01/17 Care time: The patient presented to the Emergency Department on the above date and was hospitalized for further evaluation of their emergent condition. - New Patient This patient is new to me today: Yes Date on this admission: 08/02/17 - Critical Care Critical Care patient: Yes Total Critical Care Time (in minutes): 45 Critical Care Statement: The care of this patient involved high complexity decision making to prevent further life threatening deterioration of the patient 's condition and/or to evaluate & treat vital organ system(s) failure or risk of failure.
[2017-08-02 03:58] LABS: ANION GAP 22 (8-16); BLOOD UREA NITROGEN 92 mg/dL (7-18); CALCIUM 7.6 mg/dL (8.5-10.1); CHLORIDE 98 mmol/L (98-107); CO2 16 mmol/L (21-32); CREATININE 2.8 mg/dL (0.7-1.3); POTASSIUM 5.4 mmol/L (3.5-5.1); SODIUM 136 mmol/L (136-145)
[2017-08-02 04:10] LABS: GLUCOSE,RANDOM 514 mg/dL (74-106)
[2017-08-02] MEDS ORDERED: INSULIN REGULAR HUMAN 100 UNITS/ML *VIAL ONE (04:15)
[2017-08-02 06:19] VITALS: BMI 17.6
[2017-08-02 07:13] LABS: ARTERIAL BLD GAS O2 SATURATION 95.7 % (90-98.9); ARTERIAL BLOOD GAS BASE EXCESS -7.9 meq/l (-2-2); ARTERIAL BLOOD GAS PCO2 31.2 mmHg (35-45); ARTERIAL BLOOD GAS pH 7.35 (7.35-7.45)
[2017-08-02 07:36] LABS: ALLENS TEST POSITIVE
[2017-08-02 08:41] LABS: BASO % 0.2 % (0-2.0); HEMATOCRIT 24.9 % (35.4-49); HEMOGLOBIN 7.7 GM/dL (11.7-16.9); LYMPH % 0.6 % (8-40); MCH 28.3 pg (25.7-33.7); MCHC 30.7 g/dl (32.0-35.9); MEAN CELL VOLUME 91.9 fl (80-96); MEAN PLT VOLUME 8.2 fl (7.5-11.1); NEUT % 96.2 % (42.8-82.8); PLATELET COUNT 446 K/MM3 (134-434); RBC 2.71 M/mm3 (4.00-5.60); WHITE BLOOD COUNT 19.7 K/mm3 (4.0-10.0)
--- NOTE | 2017-08-02 08:56 | CONSULT ---
Consult Consult Specialty:: Pulm/CCU Reason for Consultation:: DKA - History of Present Illness History of Present Illness: 76 year old M with pmh of COPD, GI bleed, diverticulitis, diverticulosis, HLD, CVA, A, intussusception, umbilical hernia, DM, HTN, sinus cancer with excision, polypectomy, and recent admission for GI Bleed 07/22-07/25 presented to the ED with increased SOB, cough, generalized malaise. Patient found to have fingerstick of 513 and anion gap of 19. Patient transferred to ICU for further management of DKA. This morning, patient is a&ox3 on insulin drip. 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 Lt toe amput (old) tonsillect), Tonsillectomy (Lt toe amp (old)) - Alcohol/Substance Use Hx Alcohol Use: No History of Substance Use: reports: None - Smoking History Smoking history: Current every day smoker Have you smoked in the past 12 months: Yes Aproximately how many cigarettes per day: 15 - Social History ADL: Independent History of Recent Travel: No Home Medications - Allergies Allergies/Adverse Reactions: Allergies Allergy/AdvReac Type Severity Reaction Status Date / Time No Known Allergies Allergy Verified 08/01/17 21:17 - Home Medications Home Medications: Ambulatory Orders Lisinopril [Prinivil -] 20 mg PO BID 05/11/14 Metformin HCl [Glucophage] 1,000 mg PO BID 05/11/14 Simvastatin [Zocor -] 20 mg PO HS 05/11/14 Timolol 0.5% [Timoptic] 1 drop OU DAILY 05/11/14 Aspirin [ASA -] 325 mg PO DAILY 09/10/14 Glipizide [Glipizide ER] 10 mg PO BID 09/10/14 Ferrous Sulfate [Feosol] 325 mg PO DAILY #30 tablet 07/25/17 Family Disease History - Family Disease History Family Disease History: Diabetes: Brother (liver Ca, CKD), Heart Disease: Father , Mother (ill descript GI illness), Brother, CA: Brother, Other: Mother Review of Systems Findings/Remarks: Constitutional: reports: Malaise, Weakness Eyes: reports: No Symptoms HENT: reports: No Symptoms Neck: reports: No Symptoms Cardiovascular: reports: Shortness of Breath Respiratory: reports: Cough, SOB, SOB on Exertion Gastrointestinal: reports: No Symptoms Genitourinary: reports: No Symptoms Breasts: reports: No Symptoms Reported Musculoskeletal: reports: No Symptoms Integumentary: reports: No Symptoms Neurological: reports: No Symptoms Endocrine: reports: No Symptoms Hematology/Lymphatic: reports: No Symptoms Psychiatric: reports: No Symptoms Physical Exam Vital Signs: Vital Signs Temperature 98.1 F 08/02/17 05:48 Pulse Rate 86 08/02/17 08:00 Respiratory Rate 28 H 08/02/17 08:00 Blood Pressure 118/67 08/02/17 08:00 O2 Sat by Pulse Oximetry (%) 100 08/02/17 05:48 Constitutional: Yes: No Distress, Calm, Cachectic Eyes: Yes: Conjunctiva Clear HENT: Yes: WNL, Atraumatic, Normocephalic Neck: Yes: WNL, Supple, Trachea Midline Cardiovascular: Yes: Regular Rate and Rhythm, S1, S2 Respiratory: Yes: On Nasal O2, Rales, Rhonchi, SOB, SOB on Exertion, Wheezes Renal/: Yes: WNL Breast(s): Yes: WNL Musculoskeletal: Yes: WNL Extremities: Yes: WNL Edema: No Peripheral Pulses WNL: Yes Integumentary: Yes: Bruising (eccyhmotic bruising b/l upper extremities) Neurological: Yes: Alert, Oriented, Cran Nerves II-XII Intact ...Motor Strength: WNL Psychiatric: Yes: WNL, Alert, Oriented Labs: CBC, BMP 08/02/17 07:00 Assessment/Plan 76 -year-old male with history of COPD, GI bleed, diverticulitis, diverticulosis , HLD, CVA, A, intussusception, umbilical hernia, DM, HTN, sinus cancer with excision, polypectomy, brought by his for complaints of shortness of breath , weakness, poor appetite found to be in DKA. #CV HTN HLD -Continue lipitor 10 mg hs #Resp Middle lung disease, appears chronic from prior CT scans -Ceftriaxone daily -ID on board, Dr. Maharaj -Check sputum AFB given 10 year hx of chronic disease #Renal SHANTA on CKD, likely 2/2 to volume depletion with DKA (poor PO intake) -Urine studies -IVF NS @ 125 cc/hr -Trend BUN/Cr, monitor -Avoid nephrotoxic medication #Endo DKA -BGM Q1h -IV insulin drip -Monitor BMP, current anion gap 22 #Heme Anemia -Hgb is 7.4 -FOBT negative -Trend CBC, transfuse as needed for hgb <7 #FEN/GI -IVF @ 125 cc/hr -Monitor BMP -Sodium/Diabetic Diet #PPx -SCDs #Dispo -Continue ICU level of care
[2017-08-02 09:09] LABS: ANION GAP 18 (8-16); BLOOD UREA NITROGEN 92 mg/dL (7-18); CALCIUM 8.1 mg/dL (8.5-10.1); CHLORIDE 98 mmol/L (98-107); CO2 19 mmol/L (21-32); POTASSIUM 4.6 mmol/L (3.5-5.1); SODIUM 135 mmol/L (136-145)
[2017-08-02 09:11] LABS: CREATININE 2.9 mg/dL (0.7-1.3)
[2017-08-02] MEDS: SODIUM CHLORIDE 1,000 ML IV SCH ×2 (09:17→13:15)
--- NOTE | 2017-08-02 09:45 | PN ---
Progress Note (short form) - Note Progress Note: Dr. Phillips to document today. Markedly different BUN and Glucose from discharge 07/25/17.
[2017-08-02 09:48] LABS: GLUCOSE,RANDOM 481 mg/dL (74-106)
--- NOTE | 2017-08-02 09:54 | CON.NEP ---
Consult Consult Specialty:: Neprhrology Referred by:: Dr. Nunez Reason for Consultation:: SHANTA on CKD - History of Present Illness Chief Complaint: Fatigue History of Present Illness: This is a 76 year old gentleman with PMhx of CKD Stage 3 (baseline Cr ~1.4), Hypertension, DM who presented to the ED with complaints of fatigue and anorexia and found to have DKA and SHANTA with Cr of 2.9. Pt s/'p recent admission for GI bleed and was discharged with Cr of 1.4. Pt reports + NSIAD use last week. Was on ACEi at home. Poor oral intake x 3-4 days. No diarrhea + Nausea. No flank pain, hematuira, dysuria. No SOB, chest pain. No rash on skin. 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 Lt toe amput (old) tonsillect), Tonsillectomy (Lt toe amp (old)) - Alcohol/Substance Use Hx Alcohol Use: No History of Substance Use: reports: None - Smoking History Smoking history: Current every day smoker Have you smoked in the past 12 months: Yes Aproximately how many cigarettes per day: 15 - Social History ADL: Independent History of Recent Travel: No Home Medications - Allergies Allergies/Adverse Reactions: Allergies Allergy/AdvReac Type Severity Reaction Status Date / Time No Known Allergies Allergy Verified 08/01/17 21:17 - Home Medications Home Medications: Ambulatory Orders Lisinopril [Prinivil -] 20 mg PO BID 05/11/14 Metformin HCl [Glucophage] 1,000 mg PO BID 05/11/14 Simvastatin [Zocor -] 20 mg PO HS 05/11/14 Timolol 0.5% [Timoptic] 1 drop OU DAILY 05/11/14 Aspirin [ASA -] 325 mg PO DAILY 09/10/14 Glipizide [Glipizide ER] 10 mg PO BID 09/10/14 Ferrous Sulfate [Feosol] 325 mg PO DAILY #30 tablet 07/25/17 Family Disease History - Family Disease History Family Disease History: Diabetes: Brother (liver Ca, CKD), Heart Disease: Father , Mother (ill descript GI illness), Brother, CA: Brother, Other: Mother Review of Systems - Review of Systems Constitutional: reports: Lethargy, Loss of Appetite Eyes: reports: No Symptoms HENT: reports: No Symptoms Neck: reports: No Symptoms Cardiovascular: reports: No Symptoms Respiratory: reports: No Symptoms Gastrointestinal: reports: Nausea, Vomiting. denies: Abdominal Pain, Diarrhea Genitourinary: reports: No Symptoms Neurological: reports: No Symptoms Nephrology Consult - Height Height: 5 ft 7 in - Weight Weight: 51.165 kg - BMI Body Mass Index (BMI): 17.6 - Lab Results CBC,BMP: CBC, BMP 08/02/17 07:00 08/02/17 07:00 Anion Gap: Anion Gap Anion Gap 18 (8-16) H 08/02/17 07:00 - Imaging Chest X-ray: Image Reviewed Cat Scan: Image Reviewed - Physical Examination Vital Signs: Vital Signs Temperature 98.1 F 08/02/17 05:48 Pulse Rate 86 08/02/17 08:00 Respiratory Rate 28 H 08/02/17 08:00 Blood Pressure 118/67 08/02/17 08:00 O2 Sat by Pulse Oximetry (%) 100 08/02/17 05:48 Constitutional: Yes: No Distress, Calm Eyes: Yes: Conjunctiva Clear HENT: Yes: Atraumatic Neck: Yes: Supple Cardiovascular: Yes: Regular Rate and Rhythm Respiratory: Yes: Regular, CTA Bilaterally Gastrointestinal: Yes: Normal Bowel Sounds, Soft. No: Tenderness Renal/: No: Bladder Distention, CVA Tenderness - Left, CVA Tenderness - Right , [place] Present Extremities: No: Cold, Cool, Cyanosis Edema: No Neurological: Yes: Alert, Oriented Assessment/Plan 6 year old gentleman with PMhx of CKD Stage 3 (baseline Cr ~1.4), Hypertension, DM who presented to the ED with complaints of fatigue and anorexia and found to have DKA and SHANTA with Cr of 2.9. 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
[2017-08-02] MEDS ORDERED: ASPIRIN 81 MG CHEWABLE TABLETS PO SCH (10:00)
[2017-08-02] MEDS: FERROUS SO4 325 MG TABLET (FP) PO SCH (10:01)
[2017-08-02] MEDS: MUPIROCIN 2% TOPICAL OINTMENT FOR DECOLONIZATION NS SCH ×2 (10:01→21:05)
--- NOTE | 2017-08-02 10:42 | PN ---
Progress Note, Physician Chief Complaint: Mr Chen says he feels bad, unchanged from yesterday. Still with coughing, general weakness, and malaise. no cp or n/v. - Current Medication List Current Medications: Active Medications Atorvastatin Calcium (Lipitor -) 10 mg PO HS [facility] Chlorhexidine Gluconate (Hibiclens For Decolonization -) 1 applic TP HS [facility] Ferrous Sulfate (Feosol -) 325 mg PO DAILY [facility] Last Admin: 08/02/17 10:01 Dose: 325 mg Insulin Human Regular 100 (units/ Sodium Chloride) 100 mls @ 5.66 mls/hr IVPB TITR SEL[facility]; 0.1 UNITS/KG/HR PRN Reason: Protocol Last Admin: 08/02/17 04:31 Dose: 0.1 units/kg/hr, 5.66 mls/hr Sodium Chloride (Normal Saline -) 1,000 mls @ 125 mls/hr IV ASDIR SELVIN Last Admin: 08/02/17 09:17 Dose: 125 mls/hr Mupirocin (Bactroban Ointment (For Decolonization) -) 1 applic NS BID [facility] Stop: 08/07/17 09:59 Last Admin: 08/02/17 10:01 Dose: 1 applic Timolol Maleate (Timoptic 0.5%) 1 drop OU DAILY [facility] - Objective Vital Signs: Vital Signs Temperature 37.0 C 08/02/17 10:00 Pulse Rate 95 H 08/02/17 10:00 Respiratory Rate 20 08/02/17 10:00 Blood Pressure 157/62 08/02/17 10:00 O2 Sat by Pulse Oximetry (%) 94 L 08/02/17 10:00 Constitutional: Yes: No Distress, Calm, Thin, Other (ill appearing) Cardiovascular: Yes: Regular Rate and Rhythm. No: Gallop, Murmur, Rub Respiratory: Yes: Regular, On Nasal O2, Rhonchi (RLL). No: CTA Bilaterally, Rales, Wheezes Gastrointestinal: Yes: Normal Bowel Sounds, Soft. 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 -continue IVF -continue insulin gtt -continue FSBS -plan to change to D5 1/2NS when glucose falls below 200 -stop insulin gtt when anion gap closes and place on long acting insulin Code(s): E13.10 - OTH DIABETES MELLITUS WITH KETOACIDOSIS WITHOUT COMA Qualifiers: Diabetes mellitus type: type 2 Diabetes mellitus complication detail: without coma Qualified Code(s): E11.10 - Type 2 diabetes mellitus with ketoacidosis without coma (2) Hospital-acquired pneumonia Assessment/Plan: -ID following -antibiotics changed to rocephin Code(s): J18.9 - PNEUMONIA, UNSPECIFIED ORGANISM (3) Sepsis Assessment/Plan: -leukocytosis worsening -vital signs stabilized -continue IVF as above Code(s): A41.9 - SEPSIS, UNSPECIFIED ORGANISM (4) SHANTA (acute kidney injury) Assessment/Plan: -continue hydration -suspect secondary to sepsis and DKA -monitor for improvement Code(s): N17.9 - ACUTE KIDNEY FAILURE, UNSPECIFIED (5) CKD (chronic kidney disease) Assessment/Plan: -as above Code(s): N18.9 - CHRONIC KIDNEY DISEASE, UNSPECIFIED (6) Diabetes mellitus Assessment/Plan: -as above for DKA Code(s): E11.9 - TYPE 2 DIABETES MELLITUS WITHOUT COMPLICATIONS Qualifiers: Diabetes mellitus type: type 2 Diabetes mellitus complication status: with kidney complications Diabetes mellitus complication detail: with chronic kidney disease 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
--- NOTE | 2017-08-02 11:56 | PN ---
Progress Note (short form) - Note Progress Note: Patient seen and examined in the ICU. Awake and alert. Denies CP or SOB. Reports minimal dry cough. No fever or chills or hemoptysis. Remains on IV insulin drip. Intake & Output 07/30/17 07/31/1718 08/02/17 23:59 23:59 23:59 23:59 Intake Total 260 Balance 260 Weight 125 lb 112 lb 12.8 oz Last Vital Signs Temp Pulse Resp BP Pulse Ox 98.6 F 95 H 20 157/62 94 L 08/02/17 10:00 08/02/17 10:00 08/02/17 10:00 08/02/17 10:00 08/02/17 10:00 Active Medications Atorvastatin Calcium (Lipitor -) 10 mg PO HS [facility] Chlorhexidine Gluconate (Hibiclens For Decolonization -) 1 applic TP HS [facility] Ferrous Sulfate (Feosol -) 325 mg PO DAILY [facility] Last Admin: 08/02/17 10:01 Dose: 325 mg Insulin Human Regular 100 (units/ Sodium Chloride) 100 mls @ 5.66 mls/hr IVPB TITR SELVIN; 0.1 UNITS/KG/HR PRN Reason: Protocol Last Admin: 08/02/17 04:31 Dose: 0.1 units/kg/hr, 5.66 mls/hr Sodium Chloride (Normal Saline -) 1,000 mls @ 125 mls/hr IV ASDIR SELVIN Last Admin: 08/02/17 09:17 Dose: 125 mls/hr Lactobacillus Acidophilus (Bacid -) 1 tab PO DAILY [facility] Mupirocin (Bactroban Ointment (For Decolonization) -) 1 applic NS BID [facility] Stop: 08/07/17 09:59 Last Admin: 08/02/17 10:01 Dose: 1 applic Timolol Maleate (Timoptic 0.5%) 1 drop OU DAILY [facility] Constitutional: Yes: No Distress, Cachectic Eyes: Yes: Conjunctiva Clear HENT: Yes: WNL, Atraumatic, Normocephalic Neck: Yes: WNL, Supple, Trachea Midline Cardiovascular: Yes: Regular Rate and Rhythm, S1, S2 Respiratory: Yes: On Nasal O2, Scattered Rhonchi. No SOB Wheezes Renal/: Yes: WNL Breast(s): Yes: WNL Musculoskeletal: Yes: WNL Extremities: Yes: WNL Edema: No Peripheral Pulses WNL: Yes Integumentary: Yes: Bruising (eccyhmotic bruising b/l upper extremities) Neurological: Yes: Non-focal ...Motor Strength: WNL Psychiatric: Yes: WNL, Alert, Oriented Labs: Laboratory Results - last 24 hr 08/01/17 08/01/17 08/01/17 21:40 21:40 21:40 WBC 16.8 H D RBC 2.54 L Hgb 7.4 L D Hct 23.6 L MCV 92.7 MCH 29.2 MCHC 31.5 L RDW 15.1 Plt Count 399 D MPV 7.9 Neutrophils % 93.8 H Lymphocytes % 1.2 L D Monocytes % 5.0 Eosinophils % 0.0 D Basophils % 0.0 PT with INR 12.60 H INR 1.12 Puncture Site ABG pH ABG pCO2 at Pt Temp ABG pO2 at Pt Temp ABG HCO3 ABG O2 Sat (Measured) ABG O2 Content ABG Base Excess Ra Test O2 Delivery Device Oxygen Flow Rate Vent Rate PEEP Pressure Support Vent Sodium 134 L Potassium 5.4 H Chloride 99 Carbon Dioxide 16 L D Anion Gap 19 H BUN 81 H D Creatinine 2.4 H D Creat Clearance w eGFR 26.31 POC Glucometer Random Glucose 480 H* D Hemoglobin A1c % Lactic Acid Calcium 7.1 L Magnesium Total Bilirubin 0.4 AST 15 D ALT 15 D Alkaline Phosphatase 100 Creatine Kinase 41 Troponin I 0.03 D B-Natriuretic Peptide 2491.06 H Total Protein 5.4 L Albumin 2.4 L Stool Occult Blood Blood Type Antibody Screen 08/01/17 08/01/17 08/02/17 23:00 23:10 02:44 WBC RBC Hgb Hct MCV MCH MCHC RDW Plt Count MPV Neutrophils % Lymphocytes % Monocytes % Eosinophils % Basophils % PT with INR INR Puncture Site Right brachial ABG pH 7.30 L ABG pCO2 at Pt Temp 29.0 L ABG pO2 at Pt Temp 87.1 ABG HCO3 13.7 L* ABG O2 Sat (Measured) 95.3 ABG O2 Content 9.9 L* ABG Base Excess -11.4 L* Ra Test Positive O2 Delivery Device Nasal cannula Oxygen Flow Rate 3l Vent Rate PEEP Pressure Support Vent Sodium Potassium Chloride Carbon Dioxide Anion Gap BUN Creatinine Creat Clearance w eGFR POC Glucometer > 400 Random Glucose Hemoglobin A1c % Lactic Acid Calcium Magnesium Total Bilirubin AST ALT Alkaline Phosphatase Creatine Kinase Troponin I B-Natriuretic Peptide Total Protein Albumin Stool Occult Blood Negative Blood Type Antibody Screen 08/02/17 08/02/17 08/02/17 03:10 03:10 06:30 WBC RBC Hgb Hct MCV MCH MCHC RDW Plt Count MPV Neutrophils % Lymphocytes % Monocytes % Eosinophils % Basophils % PT with INR INR Puncture Site Right radial ABG pH 7.35 ABG pCO2 at Pt Temp 31.2 L ABG pO2 at Pt Temp 84.0 ABG HCO3 16.6 L ABG O2 Sat (Measured) 95.7 ABG O2 Content 9.5 L* ABG Base Excess -7.9 L Ra Test Positive O2 Delivery Device Vent Oxygen Flow Rate 50% Vent Rate 12 PEEP 5.0 Pressure Support Vent 350 Sodium 136 Potassium 5.4 H Chloride 98 Carbon Dioxide 16 L Anion Gap 22 H BUN 92 H Creatinine 2.8 H Creat Clearance w eGFR POC Glucometer Random Glucose 514 H* Hemoglobin A1c % Lactic Acid 2.0 Calcium 7.6 L Magnesium Total Bilirubin AST ALT Alkaline Phosphatase Creatine Kinase Troponin I B-Natriuretic Peptide Total Protein Albumin Stool Occult Blood Blood Type Antibody Screen 08/02/17 08/02/17 08/02/17 06:44 07:00 07:00 WBC RBC Hgb Hct MCV MCH MCHC RDW Plt Count MPV Neutrophils % Lymphocytes % Monocytes % Eosinophils % Basophils % PT with INR INR Puncture Site ABG pH ABG pCO2 at Pt Temp ABG pO2 at Pt Temp ABG HCO3 ABG O2 Sat (Measured) ABG O2 Content ABG Base Excess Ra Test O2 Delivery Device Oxygen Flow Rate Vent Rate PEEP Pressure Support Vent Sodium 135 L Potassium 4.6 Chloride 98 Carbon Dioxide 19 L Anion Gap 18 H BUN 92 H Creatinine 2.9 H Creat Clearance w eGFR POC Glucometer > 400 Random Glucose 481 H* Hemoglobin A1c % Lactic Acid Calcium 8.1 L Magnesium Total Bilirubin AST ALT Alkaline Phosphatase Creatine Kinase Troponin I B-Natriuretic Peptide Total Protein Albumin Stool Occult Blood Blood Type O NEGATIVE Antibody Screen Negative 08/02/17 08/02/17 08/02/17 07:00 07:00 07:00 WBC 19.7 H RBC 2.71 L Hgb 7.7 L Hct 24.9 L MCV 91.9 MCH 28.3 MCHC 30.7 L RDW 15.0 Plt Count 446 H MPV 8.2 Neutrophils % 96.2 H Lymphocytes % 0.6 L Monocytes % 3.0 L Eosinophils % 0.0 Basophils % 0.2 D PT with INR INR Puncture Site ABG pH ABG pCO2 at Pt Temp ABG pO2 at Pt Temp ABG HCO3 ABG O2 Sat (Measured) ABG O2 Content ABG Base Excess Ra Test O2 Delivery Device Oxygen Flow Rate Vent Rate PEEP Pressure Support Vent Sodium Potassium Chloride Carbon Dioxide Anion Gap BUN Creatinine Creat Clearance w eGFR POC Glucometer Random Glucose Hemoglobin A1c % Lactic Acid 1.6 Calcium Magnesium 2.4 Total Bilirubin AST ALT Alkaline Phosphatase Creatine Kinase Troponin I B-Natriuretic Peptide Total Protein Albumin Stool Occult Blood Blood Type Antibody Screen 08/02/17 08/02/17 08/02/17 07:00 08:22 10:07 WBC RBC Hgb Hct MCV MCH MCHC RDW Plt Count MPV Neutrophils % Lymphocytes % Monocytes % Eosinophils % Basophils % PT with INR INR Puncture Site ABG pH ABG pCO2 at Pt Temp ABG pO2 at Pt Temp ABG HCO3 ABG O2 Sat (Measured) ABG O2 Content ABG Base Excess Ra Test O2 Delivery Device Oxygen Flow Rate Vent Rate PEEP Pressure Support Vent Sodium Potassium Chloride Carbon Dioxide Anion Gap BUN Creatinine Creat Clearance w eGFR POC Glucometer > 400 > 400 Random Glucose Hemoglobin A1c % 7.1 H Lactic Acid Calcium Magnesium Total Bilirubin AST ALT Alkaline Phosphatase Creatine Kinase Troponin I B-Natriuretic Peptide Total Protein Albumin Stool Occult Blood Blood Type Antibody Screen Problem List - Problems (1) DKA (diabetic ketoacidoses) Assessment/Plan: Code(s): E13.10 - OTH DIABETES MELLITUS WITH KETOACIDOSIS WITHOUT COMA Qualifiers: Diabetes mellitus type: type 2 Diabetes mellitus complication detail: without coma Qualified Code(s): E11.10 - Type 2 diabetes mellitus with ketoacidosis without coma (2) Sepsis Assessment/Plan: Code(s): A41.9 - SEPSIS, UNSPECIFIED ORGANISM (3) Hospital-acquired pneumonia Assessment/Plan: Code(s): J18.9 - PNEUMONIA, UNSPECIFIED ORGANISM (4) Hyperkalemia Assessment/Plan: Code(s): E87.5 - HYPERKALEMIA (5) CKD (chronic kidney disease) Assessment/Plan: Code(s): N18.9 - CHRONIC KIDNEY DISEASE, UNSPECIFIED (6) Hypertension Assessment/Plan: Code(s): I10 - ESSENTIAL (PRIMARY) HYPERTENSION Qualifiers: Hypertension type: essential hypertension Qualified Code(s): I10 - Essential (primary) hypertension (7) Hyperlipidemia Assessment/Plan: Code(s): E78.5 - HYPERLIPIDEMIA, UNSPECIFIED (8) DVT prophylaxis Assessment/Plan: Code(s): [id number] - Assessment/Plan (?) ADINA : chronic changes noted on CT from 2007 Rocephin daily Check cultures Sputum AFB: Do not clinically suspect M TB O2 as needed IV Insulin drip Follow BGM VTE prophylaxis ICU monitoring Dr Acosta Critical care time spent in reviewing chart, evaluating patient and formulating plan - 36 minutes.
[2017-08-02] MEDS ORDERED: CEFTRIAXONE 1 GM in DEXTROSE 5%-WATER - 50 ML IVPB SCH (12:00)
[2017-08-02] MEDS: LACTOBACILLUS ACIDOPHILUS 1 EACH TAB (FP) PO SCH (12:02)
[2017-08-02] MEDS: TIMOLOL 0.5% OPHTHALMIC SOL 5 ML BOTTLE OU SCH (12:02)
[2017-08-02] MEDS ORDERED: CEFTRIAXONE 1 G/50 ML PREMIX 50 ML IVPB ONE (12:30)
--- NOTE | 2017-08-02 12:44 | EKG ---
Test Reason : Blood Pressure : / mmHG Vent. Rate : 092 BPM Atrial Rate : 092 BPM P-R Int : 162 ms QRS Dur : 088 ms QT Int : 368 ms P-R-T Axes : 044 072 093 degrees QTc Int : 455 ms NORMAL SINUS RHYTHM VOLTAGE CRITERIA FOR LEFT VENTRICULAR HYPERTROPHY NONSPECIFIC T WAVE ABNORMALITY ABNORMAL ECG WHEN COMPARED WITH ECG OF 22-JUL-2017 07:09, NO SIGNIFICANT CHANGE WAS FOUND Confirmed by NEGRO GARRIDO MD ([id number]) on 08/02/2017 12:44:04 PM Referred By: Confirmed By:NEGRO GARRIDO MD
--- NOTE | 2017-08-02 13:17 | CON.ID ---
Consult Consult Specialty:: infectious diseases Reason for Consultation:: leukocytosis,dka,r/o uti - History of Present Illness History of Present Illness: 76 year old M with pmh of COPD, GI bleed, diverticulitis, diverticulosis, HLD, CVA, A, intussusception, umbilical hernia, DM, HTN, sinus cancer with excision, polypectomy, and recent admission for GI Bleed 07/22-07/25 admitted with increased SOB, cough, generalized malaise.patient found to have leukocytosis some confusion and dka and admitted to icu for management patient currently stable still very weak on admission and work up patient found to have leukocytosis and on imaging studies suspicion of infiltrates patient denies cough fever or any other issues - History Source History Provided By: Patient, Medical Record Limitations to Obtaining History: Poor Historian - 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 Lt toe amput (old) tonsillect), Tonsillectomy (Lt toe amp (old)) - Alcohol/Substance Use Hx Alcohol Use: No History of Substance Use: reports: None - Smoking History Smoking history: Current every day smoker Have you smoked in the past 12 months: Yes Aproximately how many cigarettes per day: 15 - Social History ADL: Independent History of Recent Travel: No Home Medications - Allergies Allergies/Adverse Reactions: Allergies Allergy/AdvReac Type Severity Reaction Status Date / Time No Known Allergies Allergy Verified 08/01/17 21:17 - Home Medications Home Medications: Ambulatory Orders Lisinopril [Prinivil -] 20 mg PO BID 05/11/14 Metformin HCl [Glucophage] 1,000 mg PO BID 05/11/14 Simvastatin [Zocor -] 20 mg PO HS 05/11/14 Timolol 0.5% [Timoptic] 1 drop OU DAILY 05/11/14 Aspirin [ASA -] 325 mg PO DAILY 09/10/14 Glipizide [Glipizide ER] 10 mg PO BID 09/10/14 Ferrous Sulfate [Feosol] 325 mg PO DAILY #30 tablet 07/25/17 Family Disease History - Family Disease History Family Disease History: Diabetes: Brother (liver Ca, CKD), Heart Disease: Father , Mother (ill descript GI illness), Brother, CA: Brother, Other: Mother Review of Systems - Review of Systems Constitutional: reports: No Symptoms Eyes: reports: No Symptoms HENT: reports: No Symptoms Neck: reports: No Symptoms Cardiovascular: reports: No Symptoms Respiratory: reports: Cough, SOB Gastrointestinal: reports: No Symptoms Genitourinary: reports: No Symptoms Musculoskeletal: reports: No Symptoms Integumentary: reports: No Symptoms Neurological: reports: No Symptoms Hematology/Lymphatic: reports: No Symptoms Psychiatric: reports: No Symptoms Physical Exam Vital Signs: Vital Signs Temperature 98.6 F 08/02/17 10:00 Pulse Rate 85 08/02/17 12:00 Respiratory Rate 20 08/02/17 12:00 Blood Pressure 157/60 08/02/17 12:00 O2 Sat by Pulse Oximetry (%) 94 L 08/02/17 10:00 Constitutional: Yes: No Distress, Calm, Thin Eyes: Yes: Conjunctiva Clear Cardiovascular: Yes: Regular Rate and Rhythm Respiratory: Yes: Regular, Rhonchi Gastrointestinal: Yes: Normal Bowel Sounds, Soft Musculoskeletal: Yes: WNL Extremities: Yes: WNL Neurological: Yes: Alert, Oriented Psychiatric: Yes: Alert, Oriented Labs: CBC, BMP 08/02/17 07:00 08/02/17 07:00 Imaging - Results Chest X-ray: Report Reviewed, Image Reviewed Cat Scan: Report Reviewed, Image Reviewed Assessment/Plan Problem List - Problems (1) DKA (diabetic ketoacidoses) Assessment/Plan: Code(s): E13.10 - OTH DIABETES MELLITUS WITH KETOACIDOSIS WITHOUT COMA Qualifiers: Diabetes mellitus type: type 2 Diabetes mellitus complication detail: without coma Qualified Code(s): E11.10 - Type 2 diabetes mellitus with ketoacidosis without coma (2) Sepsis Assessment/Plan: Code(s): A41.9 - SEPSIS, UNSPECIFIED ORGANISM (3) Hospital-acquired pneumonia Assessment/Plan: Code(s): J18.9 - PNEUMONIA, UNSPECIFIED ORGANISM (4) Hyperkalemia Assessment/Plan: Code(s): E87.5 - HYPERKALEMIA (5) CKD (chronic kidney disease) Assessment/Plan: Code(s): N18.9 - CHRONIC KIDNEY DISEASE, UNSPECIFIED (6) Hypertension Assessment/Plan: Code(s): I10 - ESSENTIAL (PRIMARY) HYPERTENSION Qualifiers: Hypertension type: essential hypertension Qualified Code(s): I10 - Essential (primary) hypertension (7) Hyperlipidemia Assessment/Plan: Code(s): E78.5 - HYPERLIPIDEMIA, UNSPECIFIED plan continue current mgmt agree with ceftriaxone await for all cx report insulin drip icu monitoring rest as per team monitor wbc cc time 40 min
--- NOTE | 2017-08-02 14:15 | CONSULT ---
Consult Consult Specialty:: Endocrinology Referred by:: Dasha More MD Reason for Consultation:: Hyperglycemia ? DKA - History of Present Illness Chief Complaint: Malaise, SOB History of Present Illness: This is a 76 year old M with h/o COPD, GI bleed, diverticulitis, diverticulosis , HLD, CVA, , intussusception, umbilical hernia, T2DM for about 40 years on Metformin and Glipizide at home, HTN, sinus cancer with excision, polypectomy, and recent admission for GI Bleed 07/22-07/25 presented to the ED with increased SOB, cough, generalized malaise. Patient found to have fingerstick of 513 and anion gap of 19. Patient transferred to ICU for further management of DKA. Pt is currently Awake alert on insulin drip. Fs at home usually on the lower side between 80 to 90s. No hospitalizations for hypo or hyperglycemia. No Polyuria, Polydipsia or nocturia. No visual symptoms. Saw Ophthalmology a few months ago. No paresthesia of feet. 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 Lt toe amput (old) tonsillect), Tonsillectomy (Lt toe amp (old)) - Alcohol/Substance Use Hx Alcohol Use: No History of Substance Use: reports: None - Smoking History Smoking history: Current every day smoker Have you smoked in the past 12 months: Yes Aproximately how many cigarettes per day: 15 - Social History ADL: Independent History of Recent Travel: No Home Medications - Allergies Allergies/Adverse Reactions: Allergies Allergy/AdvReac Type Severity Reaction Status Date / Time No Known Allergies Allergy Verified 08/01/17 21:17 - Home Medications Home Medications: Ambulatory Orders Lisinopril [Prinivil -] 20 mg PO BID 05/11/14 Metformin HCl [Glucophage] 1,000 mg PO BID 05/11/14 Simvastatin [Zocor -] 20 mg PO HS 05/11/14 Timolol 0.5% [Timoptic] 1 drop OU DAILY 05/11/14 Aspirin [ASA -] 325 mg PO DAILY 09/10/14 Glipizide [Glipizide ER] 10 mg PO BID 09/10/14 Ferrous Sulfate [Feosol] 325 mg PO DAILY #30 tablet 07/25/17 Family Disease History - Family Disease History Family Disease History: Diabetes: Brother (liver Ca, CKD), Heart Disease: Father , Mother (ill descript GI illness), Brother, CA: Brother, Other: Mother Review of Systems - Review of Systems Constitutional: reports: Loss of Appetite, Malaise Eyes: reports: No Symptoms HENT: reports: No Symptoms Neck: reports: No Symptoms Cardiovascular: reports: No Symptoms Gastrointestinal: reports: No Symptoms Genitourinary: reports: No Symptoms Breasts: reports: No Symptoms Reported Endocrine: reports: No Symptoms Hematology/Lymphatic: reports: No Symptoms Physical Exam Vital Signs: Vital Signs Temperature 98.6 F 08/02/17 10:00 Pulse Rate 85 08/02/17 12:00 Respiratory Rate 20 08/02/17 12:00 Blood Pressure 157/60 08/02/17 12:00 O2 Sat by Pulse Oximetry (%) 94 L 08/02/17 10:00 Constitutional: Yes: No Distress, Calm Eyes: Yes: Conjunctiva Clear, EOM Intact HENT: Yes: Atraumatic, Normocephalic Neck: Yes: Supple, Trachea Midline Cardiovascular: Yes: Regular Rate and Rhythm Respiratory: Yes: Regular, CTA Bilaterally Gastrointestinal: Yes: Normal Bowel Sounds, Soft Musculoskeletal: Yes: WNL Extremities: Yes: WNL Edema: No Neurological: Yes: Alert, Oriented Labs: CBC, BMP 08/02/17 07:00 08/02/17 07:00 Problem List - Problems (1) SHANTA (acute kidney injury) Code(s): N17.9 - ACUTE KIDNEY FAILURE, UNSPECIFIED (2) DKA (diabetic ketoacidoses) Code(s): E13.10 - OTH DIABETES MELLITUS WITH KETOACIDOSIS WITHOUT COMA Qualifiers: Diabetes mellitus type: type 2 Diabetes mellitus complication detail: without coma Qualified Code(s): E11.10 - Type 2 diabetes mellitus with ketoacidosis without coma (3) Diabetes mellitus Code(s): E11.9 - TYPE 2 DIABETES MELLITUS WITHOUT COMPLICATIONS Qualifiers: Diabetes mellitus type: type 2 Diabetes mellitus complication status: with kidney complications Diabetes mellitus complication detail: with chronic kidney disease Diabetes mellitus senior care insulin use: without watermelon harvesting supervisor use Assessment/Plan AP: T2DM with Hyperglycemia ?DKA SHANTA COPD Mild acidosis on admission with PH of 7.3, CO2 16 and A gap of 19 Acidosis more likely to be from SHANTA Check Acetone Decrease Insulin drip to 2 units/hr, Adjust dose as necesary to maintain FS between 120 and 180 Change IV to D5NS 100ml/hr BGM Qhr Continue Insulin drip until pt able to eat and acidosis is resolved Electrolyte replacement as necessary CMP tonighe PO4, Mg in a.m. Will f/u Discussed with housestaff Will f/u
[2017-08-02] MEDS: DEXTROSE 5%-NORMAL SALINE 1,000 ML IV SCH (14:28)
[2017-08-02 16:40] LABS: URINE APPEARANCE CLEAR; URINE BILIRUBIN NEGATIVE (NEGATIVE); URINE BLOOD TRACE-INTA (NEGATIVE); URINE COLOR LT. YELLOW; URINE GLUCOSE (UA) 1+ (NEGATIVE); URINE KETONE TRACE (NEGATIVE); URINE LEUK ESTERASE NEGATIVE (NEGATIVE); URINE NITRITE NEGATIVE (NEGATIVE); URINE PROTEIN TRACE (NEGATIVE); URINE UROBILINOGEN 0.2 mg/dL (0.2-1.0)
[2017-08-02 17:15] LABS: ANION GAP 11 (8-16); BLOOD UREA NITROGEN 85 mg/dL (7-18); CALCIUM 7.5 mg/dL (8.5-10.1); CHLORIDE 108 mmol/L (98-107); CO2 23 mmol/L (21-32); CREATININE 2.6 mg/dL (0.7-1.3); GLUCOSE,RANDOM 69 mg/dL (74-106); POTASSIUM 4.5 mmol/L (3.5-5.1); SODIUM 142 mmol/L (136-145)
[2017-08-02] MEDS: INSULIN SLIDING SCALE (NOVOLOG) 1 VIAL SQ SCH ×2 (19:38→23:27)
[2017-08-02] MEDS ORDERED: HEMOQUE TEST 1 EACH EACH ONE (19:42)
[2017-08-02] MEDS: ATORVASTATIN CA 10 MG TABLET (FP) PO SCH (21:06)
[2017-08-02] MEDS: CHLORHEXIDINE GLUCONATE 4% CLEANSER FOR DECOLONIZATION TP SCH (21:06)
[2017-08-02] MEDS ORDERED: INSULIN SLIDING SCALE (NOVOLOG) 1 VIAL SQ SCH ×2 (22:00)
[2017-08-02] MEDS ORDERED: INSULIN DETEMIR 100 UNITS/ML MDV SQ SCH (22:00)
--- NOTE | 2017-08-02 22:24 | PN ---
Progress Note (short form) - Note Progress Note: Assessment: Patient's BGM was 107 around 4pm and insulin drip was stopped The RPG- was 69 Patient was awake and alert, but did not feel like eating so was continued on 1/ 2 NS and D5W BMP showed anion gap closed at 11, with HCO3 at 23 1/2 NS and D5W was continued and repeat BGM showed -182 D/W Dr Everett over the phone. Since Patient had not yet eaten although he had an improved appetite Plan: Continue 1/2 NS and D5W till morning SQ 10units of levemir stat Start ISS - starting at 151-2, 3,4,5,6
[2017-08-02 22:52] LABS: ALBUMIN 2.2 g/dl (3.4-5.0); ANION GAP 10 (8-16); BLOOD UREA NITROGEN 78 mg/dL (7-18); CALCIUM 7.3 mg/dL (8.5-10.1); CHLORIDE 110 mmol/L (98-107); CO2 22 mmol/L (21-32); CREATININE 2.3 mg/dL (0.7-1.3); GLUCOSE,RANDOM 208 mg/dL (74-106); POTASSIUM 4.5 mmol/L (3.5-5.1); SGOT/AST 10 U/L (15-37); SGPT/ALT 9 U/L (12-78); SODIUM 142 mmol/L (136-145)
[2017-08-02 22:53] LABS: ALK PHOS 90 U/L (45-117); BILIRUBIN,TOTAL 0.4 mg/dL (0.2-1.0)
[2017-08-03] MEDS: INSULIN SLIDING SCALE (NOVOLOG) 1 VIAL SQ SCH ×6 (02:41→21:30)
[2017-08-03] MEDS ORDERED: PT OWN MED DRAWER 7, Y5N ONE ×2 (05:47→18:13)
[2017-08-03 06:12] LABS: HEMATOCRIT 21.9 % (35.4-49); HEMOGLOBIN 7.1 GM/dL (11.7-16.9); LYMPH % 1.5 % (8-40); MCH 29.4 pg (25.7-33.7); MCHC 32.6 g/dl (32.0-35.9); MEAN CELL VOLUME 90.3 fl (80-96); MEAN PLT VOLUME 8.1 fl (7.5-11.1); MONO % 5.8 % (3.8-10.2); NEUT % 92.7 % (42.8-82.8); PLATELET COUNT 433 K/MM3 (134-434); RBC 2.42 M/mm3 (4.00-5.60)
[2017-08-03 06:29] LABS: CALCIUM 8.1 mg/dL (8.5-10.1); CHLORIDE 111 mmol/L (98-107); POTASSIUM 4.1 mmol/L (3.5-5.1); SODIUM 144 mmol/L (136-145)
[2017-08-03 06:35] LABS: ALBUMIN 2.2 g/dl (3.4-5.0); ALK PHOS 88 U/L (45-117); ANION GAP 9 (8-16); BILIRUBIN,TOTAL 0.3 mg/dL (0.2-1.0); BLOOD UREA NITROGEN 72 mg/dL (7-18); CO2 24 mmol/L (21-32); CREATININE 2.2 mg/dL (0.7-1.3); GLUCOSE,RANDOM 197 mg/dL (74-106); PHOSPHOROUS 2.7 mg/dL (2.5-4.9); SGOT/AST 11 U/L (15-37); SGPT/ALT 10 U/L (12-78); TOT PROT 5.1 g/dl (6.4-8.2)
--- NOTE | 2017-08-03 09:06 | PN ---
Progress Note (short form) - Note Progress Note: Denies any complaints Apetite poor Vital Signs Period Temp Pulse Resp BP Sys/Sy Pulse Ox Last 24 Hr 97.8 F-99.0 F 74-96 13-25 119-165/44-69 94-100 PE: Awake ,aler Neck: Supple, No JVD HEENT: EOMI Lungs: CTA Abd: Benign CVS: S1S2 Ext: No edema Neuro: No focal deficit CMP Sodium 144 mmol/L (136-145) 08/03/17 05:00 Potassium 4.1 mmol/L (3.5-5.1) 08/03/17 05:00 Chloride 111 mmol/L (98-107) H 08/03/17 05:00 Carbon Dioxide 24 mmol/L (21-32) 08/03/17 05:00 Anion Gap 9 (8-16) 08/03/17 05:00 BUN 72 mg/dL (7-18) H 08/03/17 05:00 Creatinine 2.2 mg/dL (0.7-1.3) H 08/03/17 05:00 Creat Clearance w eGFR 29.09 (>60) 08/03/17 05:00 POC Glucometer 182.69133 UNITS (80-120) 08/02/17 17:49 Random Glucose 197 mg/dL (74-106) H 08/03/17 05:00 Hemoglobin A1c % 7.1 % (4.8-6.0) H 08/02/17 07:00 Lactic Acid 1.6 mmol/L (0.0-2.0) 08/02/17 07:00 Calcium 8.1 mg/dL (8.5-10.1) L 08/03/17 05:00 Phosphorus 2.7 mg/dL (2.5-4.9) 08/03/17 05:00 Magnesium 2.0 mg/dL (1.8-2.4) 08/03/17 05:00 Total Bilirubin 0.3 mg/dL (0.2-1.0) D 08/03/17 05:00 AST 11 U/L (15-37) L 08/03/17 05:00 ALT 10 U/L (12-78) L 08/03/17 05:00 Alkaline Phosphatase 88 U/L (45-117) 08/03/17 05:00 Creatine Kinase 41 IU/L (39-308) 08/01/17 21:40 Troponin I 0.03 ng/ml (0.00-0.05) D 08/01/17 21:40 B-Natriuretic Peptide 2491.06 pg/ml (5-450) H 08/01/17 21:40 Total Protein 5.1 g/dl (6.4-8.2) L 08/03/17 05:00 Albumin 2.2 g/dl (3.4-5.0) L 08/03/17 05:00 Current Medications Generic Name Dose Route Start Last Admin Trade Name Freq PRN Reason Stop Dose Admin Atorvastatin Calcium 10 mg 08/02/17 22:00 08/02/17 21:06 Lipitor - PO 10 mg HS SELVIN Administration Chlorhexidine Gluconate 1 applic 08/02/17 22:00 08/02/17 21:06 Hibiclens For Decolonization - TP 1 applic HS SELVIN Administration Ferrous Sulfate 325 mg 08/02/17 10:00 08/02/17 10:01 Feosol - PO 325 mg DAILY SELVIN Administration Dextrose/Sodium Chloride 1,000 mls @ 100 mls/hr 08/02/17 14:30 08/02/17 14:28 D5-Ns - IV 100 mls/hr ASDIR SELVIN Administration CEFTRIAXONE 1 G/50 ML PREMIX 50 mls @ 100 mls/hr 08/03/17 10:00 Ceftriaxone 1 Gm-D5w Bag IVPB DAILY SELVIN Insulin Aspart 1 vial 08/02/17 19:00 08/03/17 06:21 Novolog Vial Sliding Scale - SQ 3 units Q4H SELVIN Administration Protocol Insulin Detemir 10 units 08/02/17 22:00 08/02/17 22:00 Levemir Vial SQ 10 units HS SELVIN Administration Lactobacillus Acidophilus 1 tab 08/02/17 10:45 08/02/17 12:02 Bacid - PO 1 tab DAILY SELVIN Administration Mupirocin 1 applic 08/02/17 10:00 08/02/17 21:05 Bactroban Ointment (For Decolonization) - NS 08/07/17 09:59 1 applic BID SELVIN Administration Timolol Maleate 1 drop 08/02/17 10:00 08/02/17 12:02 Timoptic 0.5% OU 1 drop DAILY SELVIN Administration AP: T2DM with Hyperglycemia ?DKA SHANTA COPD Mild acidosis resolved. Acetone pending Off Insulin drip since yesterday 4 p.m. D5NS 100ml/hr Levemir 10 units daily at Novolog SS coverage BGM QACHS and at 3 a.m. Electrolyte replacement as necessary Will f/u Problem List - Problems (1) SHANTA (acute kidney injury) Code(s): N17.9 - ACUTE KIDNEY FAILURE, UNSPECIFIED (2) DKA (diabetic ketoacidoses) Code(s): E13.10 - OTH DIABETES MELLITUS WITH KETOACIDOSIS WITHOUT COMA Qualifiers: Diabetes mellitus type: type 2 Diabetes mellitus complication detail: without coma Qualified Code(s): E11.10 - Type 2 diabetes mellitus with ketoacidosis without coma (3) Diabetes mellitus Code(s): E11.9 - TYPE 2 DIABETES MELLITUS WITHOUT COMPLICATIONS Qualifiers: Diabetes mellitus type: type 2 Diabetes mellitus complication status: with kidney complications Diabetes mellitus complication detail: with chronic kidney disease 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
[2017-08-03] MEDS ORDERED: CEFTRIAXONE 1 G/50 ML PREMIX 50 ML IVPB SCH (10:00)
[2017-08-03] MEDS: FERROUS SO4 325 MG TABLET (FP) PO SCH (10:15)
--- NOTE | 2017-08-03 10:15 | CON.CARD ---
Cardiology Consult (text) - Consultation Consultation Note: CC: SVT 76 yo with pmhx of htn, hl, pad, cva (no residual deficits), copd, dm, mgus, esthesioneuroblastoma treated with radiation therapy, chronic anemia recently worsened s/p recent GIB last month who p/w sob/weakness and noted to be in DKA with pna, hospital course now complicated by episode of SVT. Noted to have SVT this morning. Episode lasting ~ 1 hr, asx. self-limited episode. Resolved with valsalva. Otherwise has been improving clinically, had plan for transfer to telemetry today. no cp, palps, dizziness, orthopnea, pnd, le edema, transient neurologic symptoms. still with residual weakness. sob, cough, poor appetite improving. no f/c/s, n /v/d, h/a, rash,visual disturbances. pmhx/pshx: per hpi, prior toe amputations, prior inguinal hernia repair social hx: prior tobacco, prior etoh fam hx: brother mi 73; Mother at 89 yo from congestive heart failure, Father at 51 of an [place]. ros: per hpi Ambulatory Orders Lisinopril [Prinivil -] 20 mg PO BID 05/11/14 Simvastatin [Zocor -] 20 mg PO HS 05/11/14 Timolol 0.5% [Timoptic] 1 drop OU DAILY 05/11/14 metFORMIN HCL [Glucophage] 1,000 mg PO BID 05/11/14 Aspirin [ASA -] 325 mg PO DAILY 09/10/14 Glipizide [Glipizide ER] 10 mg PO BID 09/10/14 Ferrous Sulfate [Feosol] 325 mg PO DAILY #30 tablet 07/25/17 Current Medications Albuterol Sulfate (Ventolin 0.083% Nebulizer Soln -) 1 amp NEB Q4H PRN PRN Reason: SHORT OF BREATH/WHEEZING Atorvastatin Calcium (Lipitor -) 10 mg PO [facility] Last Admin: 08/03/17 21:28 Dose: 10 mg Chlorhexidine Gluconate (Hibiclens For Decolonization -) 1 applic TP [facility] Last Admin: 08/03/17 21:17 Dose: Not Given Diltiazem HCl (Cardizem -) 60 mg PO Q6HPO [facility] Last Admin: 08/04/17 06:41 Dose: 60 mg Ferrous Sulfate (Feosol -) 325 mg PO DAILY [facility] Last Admin: 08/03/17 10:15 Dose: 325 mg Dextrose/Sodium Chloride (D5-Ns -) 1,000 mls @ 100 mls/hr IV ASDIR [facility] Last Admin: 08/03/17 21:35 Dose: 100 mls/hr Piperacillin/Tazobactam/Dextrose (Zosyn 2.25gm Ivpb (Premix)) 2.25 gm in 50 mls @ 100 mls/hr IVPB Q8H-IV SELVIN PRN Reason: Protocol Last Admin: 08/04/17 02:11 Dose: 100 mls/hr Insulin Aspart (Novolog Vial Sliding Scale -) 1 vial SQ ACHS SELVIN PRN Reason: Protocol Last Admin: 08/04/17 06:46 Dose: 2 units Insulin Detemir (Levemir Vial) 8 units SQ HS [facility] Last Admin: 08/03/17 21:28 Dose: 8 unit Lactobacillus Acidophilus (Bacid -) 1 tab PO DAILY [facility] Last Admin: 08/03/17 10:16 Dose: 1 tab Mupirocin (Bactroban Ointment (For Decolonization) -) 1 applic NS BID [facility] Stop: 08/07/17 09:59 Last Admin: 08/03/17 21:17 Dose: Not Given Oseltamivir Phosphate (Tamiflu -) 30 mg PO DAILY [facility] Stop: 08/08/17 10:44 Last Admin: 08/03/17 13:40 Dose: 30 mg Timolol Maleate (Timoptic 0.5%) 1 drop OU DAILY [facility] Last Admin: 08/03/17 10:17 Dose: 1 drop Vital Signs 08/03/17 08/03/17 08/03/17 08:00 09:00 10:00 Temperature 98.2 F 98.6 F Pulse Rate 96 H 96 H 90 Respiratory 24 20 20 Rate Blood Pressure 156/62 156/72 O2 Sat by Pulse 94 L Oximetry (%) NAD, cachectic, calm JVD flat, neck supple diffuse rhonchi, nl effort rrr nl s1, s2 2/6 sys murmur at apex + bs soft nt nd. no le e/c/c diminished dp/pt aaox3 no carotid bruits no jaundice, diaphoresis Laboratory Tests 08/01/17 08/01/17 08/02/17 21:40 21:40 03:10 WBC Hgb 7.4 L D Plt Count Sodium Potassium Carbon Dioxide BUN Creatinine 2.4 H D 2.8 H Magnesium Total Bilirubin AST ALT Alkaline Phosphatase Albumin 08/02/17 08/03/17 08/03/17 21:45 05:00 05:00 WBC 20.0 H Hgb 7.1 L Plt Count 433 Sodium 144 Potassium 4.1 Carbon Dioxide 24 BUN 72 H Creatinine 2.3 H 2.2 H Magnesium 2.0 Total Bilirubin 0.3 D AST 11 L ALT 10 L Alkaline Phosphatase 88 Albumin 2.2 L EKG aflutter with variable block, [address]-t wave ab tele: likely atach/atypical flutter with variable conduction --> conversion to sr/stach. chest ct: RUL RML and bilateral Lower lobe patchy infiltrates c/w pna. asc aorta 4.5 cm. over distended stomach echo 06/2017: mod lvh. nl lv fn. nl rv size/fn. 1+ lae. mod-sev mac with mod ms. 1+ mr. nl rvsp. 1+ ao dilation A/P 76 yo with pmhx of htn, hl, pad, cva (no residual deficits), copd, dm, mgus, esthesioneuroblastoma treated with radiation therapy, chronic anemia recently worsened s/p recent GIB last month who p/w sob/weakness and noted to be in DKA with pna, hospital course now complicated by episode of SVT. SVT - self-limited episode in setting of recovering pna/dka. monitor for recurrence on tele - preserved EF and + history of tobacco. start dilt 60 mg po q6h for suppression. Patient with lvh and mod MS will likely not tolerate prolonged rapid HR's. Aggressive HR control. - lyte repletion prn. mgm't of underlying pna, dka, anemia per pmd/pulm/id. Consider transfusion if hgb falls further. - atach vs. atypical flutter with h/o prior CVA (details of etiology/work up at that time unknown --> will review office records). patient with h/o recent gib and significant anemia. discussed with pmd, not thought to be safe for AC or ASA at this time. If patient has recurrence will need to reevaluate. htn - monitor with changes to regimen cva/pad - con't statin. per pmd, not currently candidate for asa due to recent gib and anemia. resume if/when safe. mild asc ao dilation - can consider switching to beta car once resp issues resolve. Full note to follow. dka/pna - ongoing mgm't per pmd/pulm/id > 35 min cct
[2017-08-03] MEDS: LACTOBACILLUS ACIDOPHILUS 1 EACH TAB (FP) PO SCH (10:16)
[2017-08-03] MEDS: MUPIROCIN 2% TOPICAL OINTMENT FOR DECOLONIZATION NS SCH ×2 (10:17→21:17)
[2017-08-03] MEDS: TIMOLOL 0.5% OPHTHALMIC SOL 5 ML BOTTLE OU SCH (10:17)
--- NOTE | 2017-08-03 10:38 | PN ---
Progress Note (short form) - Note Progress Note: Renal follow up for SHANTA on CKD Pt seen and examined at the bedside awake and alert no acute complaints no sob, chest pain, abd pain has episode of tachycardia this am making urine Vital Signs Temperature 98.2 F 08/03/17 08:00 Pulse Rate 96 H 08/03/17 10:20 Respiratory Rate 20 08/03/17 10:20 Blood Pressure 136/68 08/03/17 10:20 O2 Sat by Pulse Oximetry (%) 96 08/03/17 05:00 Intake & Output 07/31/17 08/01/17 08/02/17 08/03/17 23:59 23:59 23:59 23:59 Intake Total 1532 1320 Output Total 1025 400 Balance 507 920 Weight 56.699 kg 51.165 kg 50.349 kg NAD on NC O2 tachycardic, no Murmur course BS heard at lung bases soft NT/ND Abd No edema CBC, BMP 08/03/17 05:00 08/03/17 05:00 Current Medications Atorvastatin Calcium (Lipitor -) 10 mg PO HS [facility] Last Admin: 08/02/17 21:06 Dose: 10 mg Chlorhexidine Gluconate (Hibiclens For Decolonization -) 1 applic TP HS [facility] Last Admin: 08/02/17 21:06 Dose: 1 applic Ferrous Sulfate (Feosol -) 325 mg PO DAILY [facility] Last Admin: 08/03/17 10:15 Dose: 325 mg Dextrose/Sodium Chloride (D5-Ns -) 1,000 mls @ 100 mls/hr IV ASDIR [facility] Last Admin: 08/02/17 14:28 Dose: 100 mls/hr CEFTRIAXONE 1 G/50 ML PREMIX (Ceftriaxone 1 Gm-D5w Bag) 50 mls @ 100 mls/hr IVPB DAILY [facility] Last Admin: 08/03/17 10:16 Dose: 100 mls/hr Insulin Aspart (Novolog Vial Sliding Scale -) 1 vial SQ Q4H [facility] PRN Reason: Protocol Last Admin: 08/03/17 06:21 Dose: 3 units Insulin Detemir (Levemir Vial) 10 units SQ HS [facility] Last Admin: 08/02/17 22:00 Dose: 10 units Lactobacillus Acidophilus (Bacid -) 1 tab PO DAILY [facility] Last Admin: 08/03/17 10:16 Dose: 1 tab Mupirocin (Bactroban Ointment (For Decolonization) -) 1 applic NS BID [facility] Stop: 08/07/17 09:59 Last Admin: 08/03/17 10:17 Dose: 1 applic Oseltamivir Phosphate (Tamiflu -) 30 mg PO DAILY [facility] Stop: 08/08/17 10:44 Timolol Maleate (Timoptic 0.5%) 1 drop OU DAILY [facility] Last Admin: 08/03/17 10:17 Dose: 1 drop 76 year old gentleman with PMhx of CKD Stage 3 (baseline Cr ~1.4), Hypertension , DM who presented to the ED with complaints of fatigue and anorexia and found to have DKA and SHANTA with Cr of 2.9. #Acute Kidney Injury Urine studies show FeNa of 2.5% indicating tubular damage UPCR is 1.9 indicating tubular range proteinuria Renal function showing improvement with IVF would continue to trend BUN/Cr maintain off nephrotoxins and RICARDO/ARB no indication for [facility] can titrate down IVF #CKD baseline Cr ~1.4 Likely etiology is diabetic nephropathy UPCR is 1.9 now in state of SHANTA, will need to repeat studies once renal function has recovered #DKA now resolved as anion gap is closed continue SC insulin #Anemia Hgb down from last admission stool occult blood negative will add iron profile to am labs Tomás Al DO
--- NOTE | 2017-08-03 10:56 | PN ---
Progress Note, Physician Chief Complaint: Mr Chen says he is feeling better today, still with some shortness of breath but says feeling better. - Current Medication List Current Medications: Active Medications Atorvastatin Calcium (Lipitor -) 10 mg PO [facility] Last Admin: 08/02/17 21:06 Dose: 10 mg Chlorhexidine Gluconate (Hibiclens For Decolonization -) 1 applic TP HS [facility] Last Admin: 08/02/17 21:06 Dose: 1 applic Diltiazem HCl (Cardizem -) 60 mg PO Q6HPO [facility] Ferrous Sulfate (Feosol -) 325 mg PO DAILY [facility] Last Admin: 08/03/17 10:15 Dose: 325 mg Dextrose/Sodium Chloride (D5-Ns -) 1,000 mls @ 100 mls/hr IV ASDIR [facility] Last Admin: 08/02/17 14:28 Dose: 100 mls/hr CEFTRIAXONE 1 G/50 ML PREMIX (Ceftriaxone 1 Gm-D5w Bag) 50 mls @ 100 mls/hr IVPB DAILY [facility] Last Admin: 08/03/17 10:16 Dose: 100 mls/hr Insulin Aspart (Novolog Vial Sliding Scale -) 1 vial SQ Q4H [facility] PRN Reason: Protocol Last Admin: 08/03/17 06:21 Dose: 3 units Insulin Detemir (Levemir Vial) 10 units SQ [facility] Last Admin: 08/02/17 22:00 Dose: 10 units Lactobacillus Acidophilus (Bacid -) 1 tab PO DAILY [facility] Last Admin: 08/03/17 10:16 Dose: 1 tab Mupirocin (Bactroban Ointment (For Decolonization) -) 1 applic NS BID [facility] Stop: 08/07/17 09:59 Last Admin: 08/03/17 10:17 Dose: 1 applic Oseltamivir Phosphate (Tamiflu -) 30 mg PO DAILY [facility] Stop: 08/08/17 10:44 Timolol Maleate (Timoptic 0.5%) 1 drop OU DAILY [facility] Last Admin: 08/03/17 10:17 Dose: 1 drop - Objective Vital Signs: Vital Signs Temperature 36.8 C 08/03/17 08:00 Pulse Rate 96 H 08/03/17 10:20 Respiratory Rate 20 08/03/17 10:20 Blood Pressure 136/68 08/03/17 10:20 O2 Sat by Pulse Oximetry (%) 94 L 08/03/17 09:00 Constitutional: Yes: Well Nourished, No Distress, Calm Cardiovascular: Yes: Tachycardia. No: Pulse Irregular, Gallop, Murmur, Rub Respiratory: Yes: On Nasal O2, Rhonchi, Tachypnea. No: Regular, CTA Bilaterally , Rales, Wheezes Gastrointestinal: Yes: Normal Bowel Sounds, Soft. No: Distention, Tenderness Extremities: Yes: WNL Edema: No Labs: CBC, BMP 08/03/17 05:00 08/03/17 05:00 INR, PTT INR 1.12 (0.82-1.09) 08/01/17 21:40 Problem List - Problems (1) DKA (diabetic ketoacidoses) Code(s): E13.10 - OTH DIABETES MELLITUS WITH KETOACIDOSIS WITHOUT COMA Qualifiers: Diabetes mellitus type: type 2 Diabetes mellitus complication detail: without coma Qualified Code(s): E11.10 - Type 2 diabetes mellitus with ketoacidosis without coma (2) Hospital-acquired pneumonia Code(s): J18.9 - PNEUMONIA, UNSPECIFIED ORGANISM (3) Sepsis Code(s): A41.9 - SEPSIS, UNSPECIFIED ORGANISM (4) SHANTA (acute kidney injury) Code(s): N17.9 - ACUTE KIDNEY FAILURE, UNSPECIFIED (5) CKD (chronic kidney disease) Code(s): N18.9 - CHRONIC KIDNEY DISEASE, UNSPECIFIED (6) Diabetes mellitus Code(s): E11.9 - TYPE 2 DIABETES MELLITUS WITHOUT COMPLICATIONS Qualifiers: Diabetes mellitus type: type 2 Diabetes mellitus complication status: with kidney complications Diabetes mellitus complication detail: with chronic kidney disease Diabetes mellitus parts counterman insulin use: without parts counterman use (7) Hyperlipidemia Code(s): E78.5 - HYPERLIPIDEMIA, UNSPECIFIED (8) Hypertension Code(s): I10 - ESSENTIAL (PRIMARY) HYPERTENSION Qualifiers: Hypertension type: essential hypertension Qualified Code(s): I10 - Essential (primary) hypertension Assessment/Plan (1) DKA (diabetic ketoacidoses) Assessment/Plan: -appreciate endocrinology assistance -resolved, gap closed -now on long acting insulin Code(s): E13.10 - OTH DIABETES MELLITUS WITH KETOACIDOSIS WITHOUT COMA Qualifiers: Diabetes mellitus type: type 2 Diabetes mellitus complication detail: without coma Qualified Code(s): E11.10 - Type 2 diabetes mellitus with ketoacidosis without coma (2) Hospital-acquired pneumonia Assessment/Plan: -ID following -agree with changing rocephin to zosyn -will also add tamiflu since was in the ER during flu epidemic Code(s): J18.9 - PNEUMONIA, UNSPECIFIED ORGANISM (3) Sepsis Assessment/Plan: -leukocytosis worsening -continue IVF Code(s): A41.9 - SEPSIS, UNSPECIFIED ORGANISM (4) SHANTA (acute kidney injury) Assessment/Plan: -nephrology following and case discussed -improving -can titrate down IVF Code(s): N17.9 - ACUTE KIDNEY FAILURE, UNSPECIFIED (5) CKD (chronic kidney disease) Assessment/Plan: -as above Code(s): N18.9 - CHRONIC KIDNEY DISEASE, UNSPECIFIED (6) Diabetes mellitus Assessment/Plan: -diabetic diet -levemir and SSI Code(s): E11.9 - TYPE 2 DIABETES MELLITUS WITHOUT COMPLICATIONS Qualifiers: Diabetes mellitus type: type 2 Diabetes mellitus complication status: with kidney complications Diabetes mellitus complication detail: with chronic kidney disease Diabetes mellitus parts counterman insulin use: without parts counterman use (7) Hyperlipidemia Assessment/Plan: -continue lipitor Code(s): E78.5 - HYPERLIPIDEMIA, UNSPECIFIED (8) Hypertension Assessment/Plan: -holding lisinopril secondary to renal function -monitor for elevation Code(s): I10 - ESSENTIAL (PRIMARY) HYPERTENSION Qualifiers: Hypertension type: essential hypertension Qualified Code(s): I10 - Essential (primary) hypertension (10) Tachycardia -case d/w cardiology -started on diltiazem -monitor for improvement
--- NOTE | 2017-08-03 11:14 | PN ---
Teaching Attending Note Name of Resident: Stephane Guerra ATTENDING PHYSICIAN STATEMENT I saw and evaluated the patient. I reviewed the resident's note and discussed the case with the resident. I agree with the resident's findings and plan as documented. SUBJECTIVE: Patient seen and examined in the ICU. Awake and alert. Denies CP or SOB. Very poor PO intake. Reports minimal dry cough. No fever or chills or hemoptysis. Currently off IV insulin drip. Intake & Output 07/31/17 08/01/17 08/02/17 08/03/17 23:59 23:59 23:59 23:59 Intake Total 1532 1320 Output Total 1025 400 Balance 507 920 Weight 125 lb 112 lb 12.8 oz 111 lb Last Vital Signs Temp Pulse Resp BP Pulse Ox 98.2 F 96 H 20 136/68 94 L 08/03/17 08:00 08/03/17 10:20 08/03/17 10:20 08/03/17 10:20 08/03/17 09:00 Active Medications Atorvastatin Calcium (Lipitor -) 10 mg PO HS [facility] Last Admin: 08/02/17 21:06 Dose: 10 mg Chlorhexidine Gluconate (Hibiclens For Decolonization -) 1 applic TP [facility] Last Admin: 08/02/17 21:06 Dose: 1 applic Diltiazem HCl (Cardizem -) 60 mg PO Q6HPO [facility] Ferrous Sulfate (Feosol -) 325 mg PO DAILY [facility] Last Admin: 08/03/17 10:15 Dose: 325 mg Dextrose/Sodium Chloride (D5-Ns -) 1,000 mls @ 100 mls/hr IV ASDIR [facility] Last Admin: 08/02/17 14:28 Dose: 100 mls/hr CEFTRIAXONE 1 G/50 ML PREMIX (Ceftriaxone 1 Gm-D5w Bag) 50 mls @ 100 mls/hr IVPB DAILY [facility] Last Admin: 08/03/17 10:16 Dose: 100 mls/hr Insulin Aspart (Novolog Vial Sliding Scale -) 1 vial SQ Q4H [facility] PRN Reason: Protocol Last Admin: 08/03/17 06:21 Dose: 3 units Insulin Detemir (Levemir Vial) 10 units SQ HS [facility] Last Admin: 08/02/17 22:00 Dose: 10 units Lactobacillus Acidophilus (Bacid -) 1 tab PO DAILY [facility] Last Admin: 08/03/17 10:16 Dose: 1 tab Mupirocin (Bactroban Ointment (For Decolonization) -) 1 applic NS BID [facility] Stop: 08/07/17 09:59 Last Admin: 08/03/17 10:17 Dose: 1 applic Oseltamivir Phosphate (Tamiflu -) 30 mg PO DAILY [facility] Stop: 08/08/17 10:44 Timolol Maleate (Timoptic 0.5%) 1 drop OU DAILY [facility] Last Admin: 08/03/17 10:17 Dose: 1 drop Constitutional: Yes: No Distress, Cachectic Eyes: Yes: Conjunctiva Clear HENT: Yes: WNL, Atraumatic, Normocephalic Neck: Yes: WNL, Supple, Trachea Midline Cardiovascular: Yes: Regular Rate and Rhythm, S1, S2 Respiratory: Yes: On Nasal O2, Scattered Rhonchi. No SOB Wheezes Renal/: Yes: WNL Breast(s): Yes: WNL Musculoskeletal: Yes: WNL Extremities: Yes: WNL Edema: No Peripheral Pulses WNL: Yes Integumentary: Yes: Bruising (eccyhmotic bruising b/l upper extremities) Neurological: Yes: Non-focal ...Motor Strength: WNL Psychiatric: Yes: WNL, Alert, Oriented Labs: Laboratory Results - last 24 hr 08/02/17 08/02/17 08/02/17 11:58 13:12 14:05 WBC RBC Hgb Hct MCV MCH MCHC RDW Plt Count MPV Neutrophils % Lymphocytes % Monocytes % Eosinophils % Basophils % Sodium Potassium Chloride Carbon Dioxide Anion Gap BUN Creatinine Creat Clearance w eGFR POC Glucometer 334.56015 234.00648 168.50885 Random Glucose Calcium Phosphorus Magnesium Total Bilirubin AST ALT Alkaline Phosphatase Total Protein Albumin Urine Color Urine Appearance Urine pH Ur Specific [place] Urine Protein Urine Glucose (UA) Urine Ketones Urine Blood Urine Nitrite Urine Bilirubin Urine Urobilinogen Ur Leukocyte Esterase U Random Total Protein Ur Random Sodium Ur Random Urea Nitrogn Urine Creatinine Acetone, Qual 08/02/17 08/02/17 08/02/17 14:15 14:15 14:15 WBC RBC Hgb Hct MCV MCH MCHC RDW Plt Count MPV Neutrophils % Lymphocytes % Monocytes % Eosinophils % Basophils % Sodium Potassium Chloride Carbon Dioxide Anion Gap BUN Creatinine Creat Clearance w eGFR POC Glucometer Random Glucose Calcium Phosphorus Magnesium Total Bilirubin AST ALT Alkaline Phosphatase Total Protein Albumin Urine Color Lt. yellow Urine Appearance Clear Urine pH 5.0 Ur Specific [place] 1.020 Urine Protein Trace H D Urine Glucose (UA) 1+ H Urine Ketones Trace H Urine Blood Trace-inta Urine Nitrite Negative Urine Bilirubin Negative Urine Urobilinogen 0.2 Ur Leukocyte Esterase Negative U Random Total Protein Ur Random Sodium 48 Ur Random Urea Nitrogn Urine Creatinine 35.1 Acetone, Qual 08/02/17 08/02/17 08/02/17 14:15 14:15 15:00 WBC RBC Hgb Hct MCV MCH MCHC RDW Plt Count MPV Neutrophils % Lymphocytes % Monocytes % Eosinophils % Basophils % Sodium 142 Potassium 4.5 Chloride 108 H D Carbon Dioxide 23 D Anion Gap 11 BUN 85 H Creatinine 2.6 H Creat Clearance w eGFR POC Glucometer Random Glucose 69 L D Calcium 7.5 L Phosphorus Magnesium Total Bilirubin AST ALT Alkaline Phosphatase Total Protein Albumin Urine Color Urine Appearance Urine pH Ur Specific [place] Urine Protein Urine Glucose (UA) Urine Ketones Urine Blood Urine Nitrite Urine Bilirubin Urine Urobilinogen Ur Leukocyte Esterase U Random Total Protein 69 H Ur Random Sodium Ur Random Urea Nitrogn 505 Urine Creatinine Acetone, Qual 08/02/17 08/02/17 08/02/17 15:00 15:05 16:13 WBC RBC Hgb Hct MCV MCH MCHC RDW Plt Count MPV Neutrophils % Lymphocytes % Monocytes % Eosinophils % Basophils % Sodium Potassium Chloride Carbon Dioxide Anion Gap BUN Creatinine Creat Clearance w eGFR POC Glucometer 107.62796 91.01410 Random Glucose Calcium Phosphorus Magnesium Total Bilirubin AST ALT Alkaline Phosphatase Total Protein Albumin Urine Color Urine Appearance Urine pH Ur Specific [place] Urine Protein Urine Glucose (UA) Urine Ketones Urine Blood Urine Nitrite Urine Bilirubin Urine Urobilinogen Ur Leukocyte Esterase U Random Total Protein Ur Random Sodium Ur Random Urea Nitrogn Urine Creatinine Acetone, Qual Positive,trace 08/02/17 08/02/17 08/03/17 17:49 21:45 05:00 WBC 20.0 H RBC 2.42 L Hgb 7.1 L Hct 21.9 L MCV 90.3 MCH 29.4 MCHC 32.6 RDW 15.0 Plt Count 433 MPV 8.1 Neutrophils % 92.7 H Lymphocytes % 1.5 L D Monocytes % 5.8 D Eosinophils % 0.0 Basophils % 0.0 Sodium 142 Potassium 4.5 Chloride 110 H Carbon Dioxide 22 Anion Gap 10 BUN 78 H Creatinine 2.3 H Creat Clearance w eGFR 27.64 POC Glucometer [phone] Random Glucose 208 H D Calcium 7.3 L Phosphorus Magnesium Total Bilirubin 0.4 AST 10 L D ALT 9 L D Alkaline Phosphatase 90 Total Protein 5.0 L Albumin 2.2 L Urine Color Urine Appearance Urine pH Ur Specific [place] Urine Protein Urine Glucose (UA) Urine Ketones Urine Blood Urine Nitrite Urine Bilirubin Urine Urobilinogen Ur Leukocyte Esterase U Random Total Protein Ur Random Sodium Ur Random Urea Nitrogn Urine Creatinine Acetone, Qual 08/03/17 05:00 WBC RBC Hgb Hct MCV MCH MCHC RDW Plt Count MPV Neutrophils % Lymphocytes % Monocytes % Eosinophils % Basophils % Sodium 144 Potassium 4.1 Chloride 111 H Carbon Dioxide 24 Anion Gap 9 BUN 72 H Creatinine 2.2 H Creat Clearance w eGFR 29.09 POC Glucometer Random Glucose 197 H Calcium 8.1 L Phosphorus 2.7 Magnesium 2.0 Total Bilirubin 0.3 D AST 11 L ALT 10 L Alkaline Phosphatase 88 Total Protein 5.1 L Albumin 2.2 L Urine Color Urine Appearance Urine pH Ur Specific [place] Urine Protein Urine Glucose (UA) Urine Ketones Urine Blood Urine Nitrite Urine Bilirubin Urine Urobilinogen Ur Leukocyte Esterase U Random Total Protein Ur Random Sodium Ur Random Urea Nitrogn Urine Creatinine Acetone, Qual Problem List - Problems (1) DKA (diabetic ketoacidoses) Assessment/Plan: Code(s): E13.10 - OTH DIABETES MELLITUS WITH KETOACIDOSIS WITHOUT COMA Qualifiers: Diabetes mellitus type: type 2 Diabetes mellitus complication detail: without coma Qualified Code(s): E11.10 - Type 2 diabetes mellitus with ketoacidosis without coma (2) Sepsis Assessment/Plan: Code(s): A41.9 - SEPSIS, UNSPECIFIED ORGANISM (3) Hospital-acquired pneumonia Assessment/Plan: Code(s): J18.9 - PNEUMONIA, UNSPECIFIED ORGANISM (4) Hyperkalemia Assessment/Plan: Code(s): E87.5 - HYPERKALEMIA (5) CKD (chronic kidney disease) Assessment/Plan: Code(s): N18.9 - CHRONIC KIDNEY DISEASE, UNSPECIFIED (6) Hypertension Assessment/Plan: Code(s): I10 - ESSENTIAL (PRIMARY) HYPERTENSION Qualifiers: Hypertension type: essential hypertension Qualified Code(s): I10 - Essential (primary) hypertension (7) Hyperlipidemia Assessment/Plan: Code(s): E78.5 - HYPERLIPIDEMIA, UNSPECIFIED (8) DVT prophylaxis Assessment/Plan: Code(s): RXQ6361 - Assessment/Plan Episode of SVT (?) ADINA : chronic changes noted on CT from 2007 [place] daily Check cultures Sputum AFB: Do not clinically suspect M TB O2 as needed Insulin coverage per Endocrine/Primary Follow BGM VTE prophylaxis Should have age appropriate malignancy screening [place] Telemetry monitoring Dr Acosta Critical care time spent in reviewing chart, evaluating patient and formulating plan - 36 minutes.
[2017-08-03] MEDS ORDERED: ALBUTEROL SO4 0.083% IH SOL 2.5 MG/3 ML VIAL.NEB. NEB ONE (11:16)
[2017-08-03] MEDS ORDERED: ALBUTEROL SO4 0.083% IH SOL 2.5 MG/3 ML VIAL.NEB. NEB PRN (11:16)
--- NOTE | 2017-08-03 11:24 | PN ---
Physical Exam: SUBJECTIVE: Patient seen and examined in ICU No acute events overnight. Patient feels well this morning. Eating minimally. OBJECTIVE: Vital Signs Period Temp Pulse Resp BP Sys/Sy Pulse Ox Last 24 Hr 97.8 F-99.0 F 74-172 13-28 119-165/44-69 94-100 Constitutional: Yes: No Distress, Calm, Cachectic Eyes: Yes: Conjunctiva Clear HENT: Yes: WNL, Atraumatic, Normocephalic Neck: Yes: WNL, Supple, Trachea Midline Cardiovascular: Yes: Regular Rate and Rhythm, S1, S2 Respiratory: Yes: On Nasal O2, Bilateral wheezes Renal/: Yes: WNL Breast(s): Yes: WNL Musculoskeletal: Yes: WNL Extremities: Yes: WNL Edema: No Peripheral Pulses WNL: Yes Integumentary: Yes: Bruising (eccyhmotic bruising b/l upper extremities) Neurological: Yes: Alert, Oriented, Cran Nerves II-XII Intact ...Motor Strength: WNL Psychiatric: Yes: WNL, Alert, Oriented Labs: Laboratory Results - last 24 hr 08/02/17 08/02/17 08/02/17 11:58 13:12 14:05 WBC RBC Hgb Hct MCV MCH MCHC RDW Plt Count MPV Neutrophils % Lymphocytes % Monocytes % Eosinophils % Basophils % Sodium Potassium Chloride Carbon Dioxide Anion Gap BUN Creatinine Creat Clearance w eGFR POC Glucometer [phone] 168.04438 Random Glucose Calcium Phosphorus Magnesium Total Bilirubin AST ALT Alkaline Phosphatase Total Protein Albumin Urine Color Urine Appearance Urine pH Ur Specific [place] Urine Protein Urine Glucose (UA) Urine Ketones Urine Blood Urine Nitrite Urine Bilirubin Urine Urobilinogen Ur Leukocyte Esterase U Random Total Protein Ur Random Sodium Ur Random Urea Nitrogn Urine Creatinine Acetone, Qual 08/02/17 08/02/17 08/02/17 14:15 14:15 14:15 WBC RBC Hgb Hct MCV MCH MCHC RDW Plt Count MPV Neutrophils % Lymphocytes % Monocytes % Eosinophils % Basophils % Sodium Potassium Chloride Carbon Dioxide Anion Gap BUN Creatinine Creat Clearance w eGFR POC Glucometer Random Glucose Calcium Phosphorus Magnesium Total Bilirubin AST ALT Alkaline Phosphatase Total Protein Albumin Urine Color Lt. yellow Urine Appearance Clear Urine pH 5.0 Ur Specific [place] 1.020 Urine Protein Trace H D Urine Glucose (UA) 1+ H Urine Ketones Trace H Urine Blood Trace-inta Urine Nitrite Negative Urine Bilirubin Negative Urine Urobilinogen 0.2 Ur Leukocyte Esterase Negative U Random Total Protein Ur Random Sodium 48 Ur Random Urea Nitrogn Urine Creatinine 35.1 Acetone, Qual 08/02/17 08/02/17 08/02/17 14:15 14:15 15:00 WBC RBC Hgb Hct MCV MCH MCHC RDW Plt Count MPV Neutrophils % Lymphocytes % Monocytes % Eosinophils % Basophils % Sodium 142 Potassium 4.5 Chloride 108 H D Carbon Dioxide 23 D Anion Gap 11 BUN 85 H Creatinine 2.6 H Creat Clearance w eGFR POC Glucometer Random Glucose 69 L D Calcium 7.5 L Phosphorus Magnesium Total Bilirubin AST ALT Alkaline Phosphatase Total Protein Albumin Urine Color Urine Appearance Urine pH Ur Specific [place] Urine Protein Urine Glucose (UA) Urine Ketones Urine Blood Urine Nitrite Urine Bilirubin Urine Urobilinogen Ur Leukocyte Esterase U Random Total Protein 69 H Ur Random Sodium Ur Random Urea Nitrogn 505 Urine Creatinine Acetone, Qual 08/02/17 08/02/17 08/02/17 15:00 15:05 16:13 WBC RBC Hgb Hct MCV MCH MCHC RDW Plt Count MPV Neutrophils % Lymphocytes % Monocytes % Eosinophils % Basophils % Sodium Potassium Chloride Carbon Dioxide Anion Gap BUN Creatinine Creat Clearance w eGFR POC Glucometer 107.80092 91.94622 Random Glucose Calcium Phosphorus Magnesium Total Bilirubin AST ALT Alkaline Phosphatase Total Protein Albumin Urine Color Urine Appearance Urine pH Ur Specific [place] Urine Protein Urine Glucose (UA) Urine Ketones Urine Blood Urine Nitrite Urine Bilirubin Urine Urobilinogen Ur Leukocyte Esterase U Random Total Protein Ur Random Sodium Ur Random Urea Nitrogn Urine Creatinine Acetone, Qual Positive,trace 08/02/17 08/02/17 08/03/17 17:49 21:45 05:00 WBC 20.0 H RBC 2.42 L Hgb 7.1 L Hct 21.9 L MCV 90.3 MCH 29.4 MCHC 32.6 RDW 15.0 Plt Count 433 MPV 8.1 Neutrophils % 92.7 H Lymphocytes % 1.5 L D Monocytes % 5.8 D Eosinophils % 0.0 Basophils % 0.0 Sodium 142 Potassium 4.5 Chloride 110 H Carbon Dioxide 22 Anion Gap 10 BUN 78 H Creatinine 2.3 H Creat Clearance w eGFR 27.64 POC Glucometer 182.71689 Random Glucose 208 H D Calcium 7.3 L Phosphorus Magnesium Total Bilirubin 0.4 AST 10 L D ALT 9 L D Alkaline Phosphatase 90 Total Protein 5.0 L Albumin 2.2 L Urine Color Urine Appearance Urine pH Ur Specific [place] Urine Protein Urine Glucose (UA) Urine Ketones Urine Blood Urine Nitrite Urine Bilirubin Urine Urobilinogen Ur Leukocyte Esterase U Random Total Protein Ur Random Sodium Ur Random Urea Nitrogn Urine Creatinine Acetone, Qual 08/03/17 05:00 WBC RBC Hgb Hct MCV MCH MCHC RDW Plt Count MPV Neutrophils % Lymphocytes % Monocytes % Eosinophils % Basophils % Sodium 144 Potassium 4.1 Chloride 111 H Carbon Dioxide 24 Anion Gap 9 BUN 72 H Creatinine 2.2 H Creat Clearance w eGFR 29.09 POC Glucometer Random Glucose 197 H Calcium 8.1 L Phosphorus 2.7 Magnesium 2.0 Total Bilirubin 0.3 D AST 11 L ALT 10 L Alkaline Phosphatase 88 Total Protein 5.1 L Albumin 2.2 L Urine Color Urine Appearance Urine pH Ur Specific [place] Urine Protein Urine Glucose (UA) Urine Ketones Urine Blood Urine Nitrite Urine Bilirubin Urine Urobilinogen Ur Leukocyte Esterase U Random Total Protein Ur Random Sodium Ur Random Urea Nitrogn Urine Creatinine Acetone, Qual Active Medications Generic Name Dose Route Start Last Admin Trade Name Freq PRN Reason Stop Dose Admin Albuterol Sulfate 1 amp 08/03/17 11:16 Ventolin 0.083% Nebulizer Soln - NEB Q4H PRN SHORT OF BREATH/WHEEZING Albuterol Sulfate 1 amp 08/03/17 11:16 Ventolin 0.083% Nebulizer Soln - NEB 08/03/17 11:17 ONCE ONE Atorvastatin Calcium 10 mg 08/02/17 22:00 08/02/17 21:06 Lipitor - PO 10 mg HS [facility] Administration Chlorhexidine Gluconate 1 applic 08/02/17 22:00 08/02/17 21:06 Hibiclens For Decolonization - TP 1 applic HS [facility] Administration Diltiazem HCl 60 mg 08/03/17 12:00 Cardizem - PO Q6HPO [facility] Ferrous Sulfate 325 mg 08/02/17 10:00 08/03/17 10:15 Feosol - PO 325 mg DAILY [facility] Administration Dextrose/Sodium Chloride 1,000 mls @ 100 mls/hr 08/02/17 14:30 08/02/17 14:28 D5-Ns - IV 100 mls/hr ASDIR [facility] Administration CEFTRIAXONE 1 G/50 ML PREMIX 50 mls @ 100 mls/hr 08/03/17 10:00 08/03/17 10: 16 Ceftriaxone 1 Gm-D5w Bag IVPB 100 mls/hr DAILY [facility] Administration Insulin Aspart 1 vial 08/02/17 19:00 08/03/17 06:21 Novolog Vial Sliding Scale - SQ 3 units Q4H [facility] Administration Protocol Insulin Detemir 10 units 08/02/17 22:00 08/02/17 22:00 Levemir Vial SQ 10 units HS [facility] Administration Lactobacillus Acidophilus 1 tab 08/02/17 10:45 08/03/17 10:16 Bacid - PO 1 tab DAILY [facility] Administration Mupirocin 1 applic 08/02/17 10:00 08/03/17 10:17 Bactroban Ointment (For Decolonization) - NS 08/07/17 09:59 1 applic BID [facility] Administration Oseltamivir Phosphate 30 mg 08/03/17 10:45 Tamiflu - PO 08/08/17 10:44 DAILY [facility] Timolol Maleate 1 drop 08/02/17 10:00 08/03/17 10:17 Timoptic 0.5% OU 1 drop DAILY [facility] Administration ASSESSMENT/PLAN: 76 -year-old male with history of COPD, GI bleed, diverticulitis, diverticulosis , HLD, CVA, A, intussusception, umbilical hernia, DM, HTN, sinus cancer with excision, polypectomy, brought by his for complaints of shortness of breath , weakness, poor appetite found to be in DKA. #CV HTN HLD -Continue lipitor 10 mg hs #Resp Middle lung disease, appears chronic from prior CT scans -Ceftriaxone 1g daily -ID on board, Dr. Maharaj -Check sputum AFB given 10 year hx of chronic disease #Renal SHANTA on CKD, likely 2/2 to volume depletion with DKA (poor PO intake) -Improving -D5-NS @ 100 cc/hr -Trend BUN/Cr, monitor -Avoid nephrotoxic medication #Endo DKA -BGM Q4h -Levemir 10 sq hs -ISS q4h -D5-NS @ 100 cc/hr -Insulin drip stopped, AG closed #Heme Anemia -Hgb is 7.1 -FOBT negative -Trend CBC, transfuse as needed for hgb <7 #FEN/GI -D5-NS @ 100 cc/hr -Monitor BMP -Sodium/Diabetic Diet #PPx -SCDs #Dispo -Transfer to Telemetry Visit type - Emergency Visit Emergency Visit: Yes ED Registration Date: 08/02/17 Care time: The patient presented to the Emergency Department on the above date and was hospitalized for further evaluation of their emergent condition. - New Patient This patient is new to me today: No - Critical Care Critical Care patient: Yes Total Critical Care Time (in minutes): 35 Critical Care Statement: The care of this patient involved high complexity decision making to prevent further life threatening deterioration of the patient 's condition and/or to evaluate & treat vital organ system(s) failure or risk of failure.
[2017-08-03] MEDS: dilTIAZem HCL 60 MG TABLET (FP) PO SCH ×3 (11:35→23:34)
[2017-08-03] MEDS: DEXTROSE 5%-NORMAL SALINE 1,000 ML IV SCH ×3 (11:38→21:35)
[2017-08-03] MEDS: OSELTAMIVIR PHOSPHATE 30 MG CAPSULE PO SCH (13:40)
--- NOTE | 2017-08-03 14:53 | PN ---
Progress Note, Physician History of Present Illness: patient stable no new issues off of insulin drip - Current Medication List Current Medications: Active Medications Albuterol Sulfate (Ventolin 0.083% Nebulizer Soln -) 1 amp NEB Q4H PRN PRN Reason: SHORT OF BREATH/WHEEZING Atorvastatin Calcium (Lipitor -) 10 mg PO HS [facility] Last Admin: 08/02/17 21:06 Dose: 10 mg Chlorhexidine Gluconate (Hibiclens For Decolonization -) 1 applic TP HS [facility] Last Admin: 08/02/17 21:06 Dose: 1 applic Diltiazem HCl (Cardizem -) 60 mg PO Q6HPO [facility] Last Admin: 08/03/17 11:35 Dose: 60 mg Ferrous Sulfate (Feosol -) 325 mg PO DAILY [facility] Last Admin: 08/03/17 10:15 Dose: 325 mg Dextrose/Sodium Chloride (D5-Ns -) 1,000 mls @ 100 mls/hr IV ASDIR [facility] Last Admin: 08/03/17 11:38 Dose: 100 mls/hr CEFTRIAXONE 1 G/50 ML PREMIX (Ceftriaxone 1 Gm-D5w Bag) 50 mls @ 100 mls/hr IVPB DAILY [facility] Last Admin: 08/03/17 10:16 Dose: 100 mls/hr Insulin Aspart (Novolog Vial Sliding Scale -) 1 vial SQ Q4H [facility] PRN Reason: Protocol Last Admin: 08/03/17 14:43 Dose: Not Given Insulin Detemir (Levemir Vial) 10 units SQ [facility] Last Admin: 08/02/17 22:00 Dose: 10 units Lactobacillus Acidophilus (Bacid -) 1 tab PO DAILY [facility] Last Admin: 08/03/17 10:16 Dose: 1 tab Mupirocin (Bactroban Ointment (For Decolonization) -) 1 applic NS BID [facility] Stop: 08/07/17 09:59 Last Admin: 08/03/17 10:17 Dose: 1 applic Oseltamivir Phosphate (Tamiflu -) 30 mg PO DAILY [facility] Stop: 08/08/17 10:44 Last Admin: 08/03/17 13:40 Dose: 30 mg Timolol Maleate (Timoptic 0.5%) 1 drop OU DAILY [facility] Last Admin: 08/03/17 10:17 Dose: 1 drop - Objective Vital Signs: Vital Signs Temperature 98.6 F 08/03/17 10:00 Pulse Rate 88 08/03/17 13:39 Respiratory Rate 26 H 08/03/17 13:39 Blood Pressure 162/88 08/03/17 13:39 O2 Sat by Pulse Oximetry (%) 95 08/03/17 13:39 Constitutional: Yes: No Distress, Calm Cardiovascular: Yes: Regular Rate and Rhythm Respiratory: Yes: On Nasal O2, Poor Air Entry, Rhonchi Gastrointestinal: Yes: Normal Bowel Sounds, Soft Musculoskeletal: Yes: WNL Extremities: Yes: WNL Neurological: Yes: Alert, Oriented Psychiatric: Yes: Alert Labs: CBC, BMP 08/03/17 05:00 08/03/17 05:00 INR, PTT INR 1.12 (0.82-1.09) 08/01/17 21:40 Assessment/Plan Problem List - Problems (1) DKA (diabetic ketoacidoses) Assessment/Plan: Code(s): E13.10 - OTH DIABETES MELLITUS WITH KETOACIDOSIS WITHOUT COMA Qualifiers: Diabetes mellitus type: type 2 Diabetes mellitus complication detail: without coma Qualified Code(s): E11.10 - Type 2 diabetes mellitus with ketoacidosis without coma (2) Sepsis Assessment/Plan: Code(s): A41.9 - SEPSIS, UNSPECIFIED ORGANISM (3) Hospital-acquired pneumonia Assessment/Plan: Code(s): J18.9 - PNEUMONIA, UNSPECIFIED ORGANISM (4) Hyperkalemia Assessment/Plan: Code(s): E87.5 - HYPERKALEMIA (5) CKD (chronic kidney disease) Assessment/Plan: Code(s): N18.9 - CHRONIC KIDNEY DISEASE, UNSPECIFIED (6) Hypertension Assessment/Plan: Code(s): I10 - ESSENTIAL (PRIMARY) HYPERTENSION Qualifiers: Hypertension type: essential hypertension Qualified Code(s): I10 - Essential (primary) hypertension (7) Hyperlipidemia Assessment/Plan: Code(s): E78.5 - HYPERLIPIDEMIA, UNSPECIFIED patients wbc has increased inspite of ceftriaxone plan continue current mgmt will stop ceftriaxone will switch to zosyn await for rest of cx icu monitoring rest as per team monitor wbc cc time 40 min
[2017-08-03] MEDS: PIPERACILLIN/TAZOB 2.25 GM 2.25 GM/50 ML BAG IVPB SCH (18:15)
[2017-08-03] MEDS: CHLORHEXIDINE GLUCONATE 4% CLEANSER FOR DECOLONIZATION TP SCH (21:17)
[2017-08-03] MEDS: INSULIN DETEMIR 100 UNITS/ML MDV SQ SCH (21:28)
[2017-08-03] MEDS: ATORVASTATIN CA 10 MG TABLET (FP) PO SCH (21:28)
[2017-08-04] MEDS ORDERED: PT OWN MED DRAWER 7, Y5N ONE ×3 (02:10→16:49)
[2017-08-04] MEDS: PIPERACILLIN/TAZOB 2.25 GM 2.25 GM/50 ML BAG IVPB SCH ×3 (02:11→17:27)
[2017-08-04] MEDS: dilTIAZem HCL 60 MG TABLET (FP) PO SCH ×3 (06:41→17:24)
[2017-08-04] MEDS: INSULIN SLIDING SCALE (NOVOLOG) 1 VIAL SQ SCH ×4 (06:46→21:46)
[2017-08-04] MEDS ORDERED: INSULIN (NOVOLOG) ASPART 100 UNITS/ML 10ML VIAL ONE ×2 (07:01→11:39)
[2017-08-04 07:07] LABS: BASO % 0.1 % (0-2.0); LYMPH % 1.7 % (8-40); MCH 29.2 pg (25.7-33.7); MCHC 32.3 g/dl (32.0-35.9); MEAN CELL VOLUME 90.4 fl (80-96); MONO % 7.7 % (3.8-10.2); NEUT % 90.5 % (42.8-82.8); PLATELET COUNT 371 K/MM3 (134-434); RDW 15.1 % (11.9-15.9); WHITE BLOOD COUNT 17.6 K/mm3 (4.0-10.0)
[2017-08-04 07:22] LABS: INR 1.11 (0.82-1.09); PROTHROMBIN TIME (PATIENT) 12.5 SEC (9.98-11.88)
[2017-08-04 08:23] LABS: HEMOGLOBIN 6.1 GM/dL (11.7-16.9)
--- NOTE | 2017-08-04 08:39 | PN ---
Progress Note (short form) - Note Progress Note: Dr. Phillips to document today. Hb down to 6.1; 2 u packed cells ordered May need lasix before 2nd unit in spite of BUN.
[2017-08-04 08:58] LABS: ANION GAP 7 (8-16); BLOOD UREA NITROGEN 50 mg/dL (7-18); CALCIUM 7.2 mg/dL (8.5-10.1); CHLORIDE 117 mmol/L (98-107); CO2 24 mmol/L (21-32); CREATININE 1.8 mg/dL (0.7-1.3); GLUCOSE,RANDOM 181 mg/dL (74-106); MAGNESIUM 1.9 mg/dL (1.8-2.4); PHOSPHOROUS 2.5 mg/dL (2.5-4.9); POTASSIUM 4.2 mmol/L (3.5-5.1); SODIUM 148 mmol/L (136-145)
--- NOTE | 2017-08-04 09:14 | PN ---
Progress Note (short form) - Note Progress Note: Denies any complaints Apetite poor Vital Signs Period Temp Pulse Resp BP Sys/Sy Pulse Ox Last 24 Hr 97.4 F-99.3 F 78-172 16-28 124-162/57-88 93-95 PE: Awake ,aler Neck: Supple, No JVD HEENT: EOMI Lungs: CTA Abd: Benign CVS: S1S2 Ext: No edema Neuro: No focal deficit CMP Sodium 148 mmol/L (136-145) H 08/04/17 05:35 Potassium 4.2 mmol/L (3.5-5.1) 08/04/17 05:35 Chloride 117 mmol/L (98-107) H 08/04/17 05:35 Carbon Dioxide 24 mmol/L (21-32) 08/04/17 05:35 Anion Gap 7 (8-16) L 08/04/17 05:35 BUN 50 mg/dL (7-18) H D 08/04/17 05:35 Creatinine 1.8 mg/dL (0.7-1.3) H 08/04/17 05:35 Creat Clearance w eGFR 29.09 (>60) 08/03/17 05:00 POC Glucometer 211 UNITS (80-120) 08/04/17 06:45 Random Glucose 181 mg/dL (74-106) H 08/04/17 05:35 Hemoglobin A1c % 7.1 % (4.8-6.0) H 08/02/17 07:00 Lactic Acid 1.6 mmol/L (0.0-2.0) 08/02/17 07:00 Calcium 7.2 mg/dL (8.5-10.1) L 08/04/17 05:35 Phosphorus 2.5 mg/dL (2.5-4.9) 08/04/17 05:35 Magnesium 1.9 mg/dL (1.8-2.4) 08/04/17 05:35 Ferritin 85.737 ng/ml (16.4-293.9) 08/03/17 05:00 Total Bilirubin 0.3 mg/dL (0.2-1.0) D 08/03/17 05:00 AST 11 U/L (15-37) L 08/03/17 05:00 ALT 10 U/L (12-78) L 08/03/17 05:00 Alkaline Phosphatase 88 U/L (45-117) 08/03/17 05:00 Creatine Kinase 41 IU/L (39-308) 08/01/17 21:40 Troponin I 0.03 ng/ml (0.00-0.05) D 08/01/17 21:40 B-Natriuretic Peptide 2491.06 pg/ml (5-450) H 08/01/17 21:40 Total Protein 5.1 g/dl (6.4-8.2) L 08/03/17 05:00 Albumin 2.2 g/dl (3.4-5.0) L 08/03/17 05:00 Current Medications Generic Name Dose Route Start Last Admin Trade Name Freq PRN Reason Stop Dose Admin Albuterol Sulfate 1 amp 08/03/17 11:16 Ventolin 0.083% Nebulizer Soln - NEB Q4H PRN SHORT OF BREATH/WHEEZING Atorvastatin Calcium 10 mg 08/02/17 22:00 08/03/17 21:28 Lipitor - PO 10 mg HS SELVIN Administration Chlorhexidine Gluconate 1 applic 08/02/17 22:00 08/03/17 21:17 Hibiclens For Decolonization - TP Not Given HS SELVIN Diltiazem HCl 60 mg 08/03/17 12:00 08/04/17 06:41 Cardizem - PO 60 mg Q6HPO SELVIN Administration Ferrous Sulfate 325 mg 08/02/17 10:00 08/03/17 10:15 Feosol - PO 325 mg DAILY SELVIN Administration Dextrose/Sodium Chloride 1,000 mls @ 100 mls/hr 08/02/17 14:30 08/03/17 21:35 D5-Ns - IV 100 mls/hr ASDIR SELVIN Administration Piperacillin/Tazobactam/Dextrose 2.25 gm in 50 mls @ 100 mls/hr 08/03/17 16: 00 08/04/17 02:11 Zosyn 2.25gm Ivpb (Premix) IVPB 100 mls/hr Q8H-IV SELVIN Administration Protocol Insulin Aspart 1 vial 08/03/17 22:00 08/04/17 06:46 Novolog Vial Sliding Scale - SQ 2 units ACHS SELVIN Administration Protocol Insulin Detemir 8 units 08/03/17 22:00 08/03/17 21:28 Levemir Vial SQ 8 unit HS SELVIN Administration Lactobacillus Acidophilus 1 tab 08/02/17 10:45 08/03/17 10:16 Bacid - PO 1 tab DAILY SELVIN Administration Mupirocin 1 applic 08/02/17 10:00 08/03/17 21:17 Bactroban Ointment (For Decolonization) - NS 08/07/17 09:59 Not Given BID SELVIN Oseltamivir Phosphate 30 mg 08/03/17 10:45 08/03/17 13:40 Tamiflu - PO 08/08/17 10:44 30 mg DAILY SELVIN Administration Timolol Maleate 1 drop 08/02/17 10:00 08/03/17 10:17 Timoptic 0.5% OU 1 drop DAILY SELVIN Administration AP: T2DM with Hyperglycemia ?DKA SHANTA COPD Anemia Mild acidosis resolved. Improving renal function with Cr 1.8 today Acetone trace positive D5NS 100ml/hr until food intake improves Levemir 8 units daily at HS Novolog SS coverage BGM QACHS and at 3 a.m. Electrolyte replacement as necessary Will f/u Problem List - Problems (1) SHANTA (acute kidney injury) Code(s): N17.9 - ACUTE KIDNEY FAILURE, UNSPECIFIED (2) DKA (diabetic ketoacidoses) Code(s): E13.10 - OTH DIABETES MELLITUS WITH KETOACIDOSIS WITHOUT COMA Qualifiers: Diabetes mellitus type: type 2 Diabetes mellitus complication detail: without coma Qualified Code(s): E11.10 - Type 2 diabetes mellitus with ketoacidosis without coma (3) Diabetes mellitus Code(s): E11.9 - TYPE 2 DIABETES MELLITUS WITHOUT COMPLICATIONS Qualifiers: Diabetes mellitus type: type 2 Diabetes mellitus complication status: with kidney complications Diabetes mellitus complication detail: with chronic kidney disease Diabetes mellitus jail insulin use: without jail use
[2017-08-04] MEDS: OSELTAMIVIR PHOSPHATE 30 MG CAPSULE PO SCH (10:03)
[2017-08-04] MEDS: LACTOBACILLUS ACIDOPHILUS 1 EACH TAB (FP) PO SCH (10:03)
[2017-08-04] MEDS: FERROUS SO4 325 MG TABLET (FP) PO SCH (10:03)
[2017-08-04] MEDS: TIMOLOL 0.5% OPHTHALMIC SOL 5 ML BOTTLE OU SCH (10:04)
[2017-08-04] MEDS: MUPIROCIN 2% TOPICAL OINTMENT FOR DECOLONIZATION NS SCH ×2 (10:04→21:48)
[2017-08-04 10:13] LABS: SERUM IRON SATURATION 5 % (15-55); TOTAL IRON BINDING CAPACITY 225 ug/dL (250-450); UIBC 214 ug/dL (111-343)
--- NOTE | 2017-08-04 11:47 | PN ---
Progress Note (short form) - Note Progress Note: s: no palps dizzy; mild sob; mild sharp cp with deep breath, cough, palpation o: Vital Signs Period Temp Pulse Resp BP Sys/Sy Pulse Ox Last 24 Hr 97.4 F-99.3 F 78-94 16-26 124-162/57-88 93-95 NAD, cachectic, calm JVD flat, neck supple diffuse rhonchi, nl effort rrr nl s1, s2 2/6 sys murmur at apex + bs soft nt nd. no le e/c/c aaox3 no jaundice, diaphoresis +chest wall tenderness Current Medications Generic Name Dose Route Start Last Admin Trade Name Freq PRN Reason Stop Dose Admin Albuterol Sulfate 1 amp 08/03/17 11:16 Ventolin 0.083% Nebulizer Soln - NEB Q4H PRN SHORT OF BREATH/WHEEZING Atorvastatin Calcium 10 mg 08/02/17 22:00 08/03/17 21:28 Lipitor - PO 10 mg HS SELVIN Administration Chlorhexidine Gluconate 1 applic 08/02/17 22:00 08/03/17 21:17 Hibiclens For Decolonization - TP Not Given HS SELVIN Diltiazem HCl 60 mg 08/03/17 12:00 08/04/17 06:41 Cardizem - PO 60 mg Q6HPO SELVIN Administration Ferrous Sulfate 325 mg 08/02/17 10:00 08/04/17 10:03 Feosol - PO 325 mg DAILY SELVIN Administration Dextrose/Sodium Chloride 1,000 mls @ 100 mls/hr 08/02/17 14:30 08/03/17 21:35 D5-Ns - IV 100 mls/hr ASDIR SELVIN Administration Piperacillin/Tazobactam/Dextrose 2.25 gm in 50 mls @ 100 mls/hr 08/03/17 16: 00 08/04/17 10:03 Zosyn 2.25gm Ivpb (Premix) IVPB 100 mls/hr Q8H-IV SELVIN Administration Protocol Insulin Aspart 1 vial 08/03/17 22:00 08/04/17 06:46 Novolog Vial Sliding Scale - SQ 2 units ACHS SELVIN Administration Protocol Insulin Detemir 8 units 08/03/17 22:00 08/03/17 21:28 Levemir Vial SQ 8 unit HS SELVIN Administration Lactobacillus Acidophilus 1 tab 08/02/17 10:45 08/04/17 10:03 Bacid - PO 1 tab DAILY SELVIN Administration Mupirocin 1 applic 08/02/17 10:00 08/04/17 10:04 Bactroban Ointment (For Decolonization) - NS 08/07/17 09:59 Not Given BID SELVIN Oseltamivir Phosphate 30 mg 08/03/17 10:45 08/04/17 10:03 Tamiflu - PO 08/08/17 10:44 30 mg DAILY SELVIN Administration Timolol Maleate 1 drop 08/02/17 10:00 08/04/17 10:04 Timoptic 0.5% OU 1 drop DAILY SELVIN Administration Laboratory Last Values WBC 17.6 K/mm3 (4.0-10.0) H 08/04/17 05:35 RBC 2.10 M/mm3 (4.00-5.60) L 08/04/17 05:35 Hgb 6.1 GM/dL (11.7-16.9) L* D 08/04/17 05:35 Hct 19.0 % (35.4-49) L 08/04/17 05:35 MCV 90.4 fl (80-96) 08/04/17 05:35 MCH 29.2 pg (25.7-33.7) 08/04/17 05:35 MCHC 32.3 g/dl (32.0-35.9) 08/04/17 05:35 RDW 15.1 % (11.9-15.9) 08/04/17 05:35 Plt Count 371 K/MM3 (134-434) 08/04/17 05:35 MPV 8.0 fl (7.5-11.1) 08/04/17 05:35 Neutrophils % 90.5 % (42.8-82.8) H 08/04/17 05:35 Lymphocytes % 1.7 % (8-40) L 08/04/17 05:35 Monocytes % 7.7 % (3.8-10.2) 08/04/17 05:35 Eosinophils % 0.0 % (0-4.5) 08/04/17 05:35 Basophils % 0.1 % (0-2.0) D 08/04/17 05:35 PT with INR 12.50 SEC (9.98-11.88) H 08/04/17 05:35 INR 1.11 (0.82-1.09) 08/04/17 05:35 Puncture Site Right radial 08/02/17 06:30 ABG pH 7.35 (7.35-7.45) 08/02/17 06:30 ABG pCO2 at Pt Temp 31.2 mmHg (35-45) L 08/02/17 06:30 ABG pO2 at Pt Temp 84.0 mmHg (70-100) 08/02/17 06:30 ABG HCO3 16.6 meq/L (22-26) L 08/02/17 06:30 ABG O2 Sat (Measured) 95.7 % (90-98.9) 08/02/17 06:30 ABG O2 Content 9.5 % vol (15-22) L* 08/02/17 06:30 ABG Base Excess -7.9 meq/l (-2-2) L 08/02/17 06:30 Ra Test Positive 08/02/17 06:30 O2 Delivery Device Vent 08/02/17 06:30 Oxygen Flow Rate 50% 08/02/17 06:30 Vent Rate 12 08/02/17 06:30 PEEP 5.0 cmH2O 08/02/17 06:30 Pressure Support Vent 350 08/02/17 06:30 Sodium 148 mmol/L (136-145) H 08/04/17 05:35 Potassium 4.2 mmol/L (3.5-5.1) 08/04/17 05:35 Chloride 117 mmol/L (98-107) H 08/04/17 05:35 Carbon Dioxide 24 mmol/L (21-32) 08/04/17 05:35 Anion Gap 7 (8-16) L 08/04/17 05:35 BUN 50 mg/dL (7-18) H D 08/04/17 05:35 Creatinine 1.8 mg/dL (0.7-1.3) H 08/04/17 05:35 Creat Clearance w eGFR 29.09 (>60) 08/03/17 05:00 POC Glucometer 211 UNITS (80-120) 08/04/17 06:45 Random Glucose 181 mg/dL (74-106) H 08/04/17 05:35 Hemoglobin A1c % 7.1 % (4.8-6.0) H 08/02/17 07:00 Lactic Acid 1.6 mmol/L (0.0-2.0) 08/02/17 07:00 Calcium 7.2 mg/dL (8.5-10.1) L 08/04/17 05:35 Phosphorus 2.5 mg/dL (2.5-4.9) 08/04/17 05:35 Magnesium 1.9 mg/dL (1.8-2.4) 08/04/17 05:35 Iron 11 ug/dL (38-169) L 08/03/17 05:00 TIBC 225 ug/dL (250-450) L 08/03/17 05:00 Iron Saturation 5 % (15-55) L 08/03/17 05:00 Ferritin 85.737 ng/ml (16.4-293.9) 08/03/17 05:00 Total Bilirubin 0.3 mg/dL (0.2-1.0) D 08/03/17 05:00 AST 11 U/L (15-37) L 08/03/17 05:00 ALT 10 U/L (12-78) L 08/03/17 05:00 Alkaline Phosphatase 88 U/L (45-117) 08/03/17 05:00 Creatine Kinase 41 IU/L (39-308) 08/01/17 21:40 Troponin I 0.03 ng/ml (0.00-0.05) D 08/01/17 21:40 B-Natriuretic Peptide 2491.06 pg/ml (5-450) H 08/01/17 21:40 Total Protein 5.1 g/dl (6.4-8.2) L 08/03/17 05:00 Albumin 2.2 g/dl (3.4-5.0) L 08/03/17 05:00 Urine Color Lt. yellow 08/02/17 14:15 Urine Appearance Clear 08/02/17 14:15 Urine pH 5.0 (5.0-8.0) 08/02/17 14:15 Ur Specific [place] 1.020 (1.001-1.035) 08/02/17 14:15 Urine Protein Trace (NEGATIVE) H D 08/02/17 14:15 Urine Glucose (UA) 1+ (NEGATIVE) H 08/02/17 14:15 Urine Ketones Trace (NEGATIVE) H 08/02/17 14:15 Urine Blood Trace-inta (NEGATIVE) 08/02/17 14:15 Urine Nitrite Negative (NEGATIVE) 08/02/17 14:15 Urine Bilirubin Negative (NEGATIVE) 08/02/17 14:15 Urine Urobilinogen 0.2 mg/dL (0.2-1.0) 08/02/17 14:15 Ur Leukocyte Esterase Negative (NEGATIVE) 08/02/17 14:15 U Random Total Protein 69 mg/dl (5-11.9) H 08/02/17 14:15 Ur Random Sodium 48 MMOL/L 08/02/17 14:15 Ur Random Urea Nitrogn 505 mg/dL 08/02/17 14:15 Urine Creatinine 35.1 mg/dL (20-370) 08/02/17 14:15 Stool Occult Blood Negative (NEGATIVE) 08/01/17 23:10 Acetone, Qual Positive,trace (NEGATIVE) 08/02/17 15:00 Blood Type O NEGATIVE 08/04/17 09:42 Antibody Screen Negative 08/04/17 09:42 Crossmatch See Detail 08/04/17 09:42 EKG aflutter with variable block, [address]-t wave ab tele: sr chest ct: RUL RML and bilateral Lower lobe patchy infiltrates c/w pna. asc aorta 4.5 cm. over distended stomach echo 06/2017: mod lvh. nl lv fn. nl rv size/fn. 1+ lae. mod-sev mac with mod ms. 1+ mr. nl rvsp. 1+ ao dilation A/P 76 yo with pmhx of htn, hl, pad, cva (no residual deficits), copd, dm, mgus, esthesioneuroblastoma treated with radiation therapy, chronic anemia recently worsened s/p recent GIB last month who p/w sob/weakness and noted to be in DKA with pna, hospital course now complicated by episode of SVT. SVT - self-limited episode in setting of recovering pna/dka. monitor for recurrence on tele - preserved EF. started dilt 60 mg po q6h for suppression. Patient with lvh and mod MS will likely not tolerate prolonged rapid HR's. - atach vs. atypical flutter with h/o prior CVA (details of etiology/work up at that time unknown). patient with h/o recent gib and significant anemia. discussed with pmd, not thought to be safe for AC or ASA at this time. htn -stable cva/pad - con't statin. not currently candidate for asa due to recent gib and anemia. resume if/when safe. mild asc ao dilation - cont bp control
--- NOTE | 2017-08-04 12:06 | PN ---
Progress Note, Physician Chief Complaint: Mr Chen says he is feeling bad but cannot tell me how.Cannot give me a subjective. Mainly says he is feeling bad and he does not know who to believe, unable to tell me what he means by this - Current Medication List Current Medications: Active Medications Albuterol Sulfate (Ventolin 0.083% Nebulizer Soln -) 1 amp NEB Q4H PRN PRN Reason: SHORT OF BREATH/WHEEZING Atorvastatin Calcium (Lipitor -) 10 mg PO HS [facility] Last Admin: 08/03/17 21:28 Dose: 10 mg Chlorhexidine Gluconate (Hibiclens For Decolonization -) 1 applic TP [facility] Last Admin: 08/03/17 21:17 Dose: Not Given Diltiazem HCl (Cardizem -) 60 mg PO Q6HPO [facility] Last Admin: 08/04/17 11:58 Dose: 60 mg Ferrous Sulfate (Feosol -) 325 mg PO DAILY [facility] Last Admin: 08/04/17 10:03 Dose: 325 mg Dextrose/Sodium Chloride (D5-Ns -) 1,000 mls @ 100 mls/hr IV ASDIR [facility] Last Admin: 08/03/17 21:35 Dose: 100 mls/hr Piperacillin/Tazobactam/Dextrose (Zosyn 2.25gm Ivpb (Premix)) 2.25 gm in 50 mls @ 100 mls/hr IVPB Q8H-IV [facility] PRN Reason: Protocol Last Admin: 08/04/17 10:03 Dose: 100 mls/hr Insulin Aspart (Novolog Vial Sliding Scale -) 1 vial SQ [facility] PRN Reason: Protocol Last Admin: 08/04/17 11:58 Dose: 4 units Insulin Detemir (Levemir Vial) 8 units SQ [facility] Last Admin: 08/03/17 21:28 Dose: 8 unit Lactobacillus Acidophilus (Bacid -) 1 tab PO DAILY [facility] Last Admin: 08/04/17 10:03 Dose: 1 tab Mupirocin (Bactroban Ointment (For Decolonization) -) 1 applic NS BID [facility] Stop: 08/07/17 09:59 Last Admin: 08/04/17 10:04 Dose: Not Given Oseltamivir Phosphate (Tamiflu -) 30 mg PO DAILY [facility] Stop: 08/08/17 10:44 Last Admin: 08/04/17 10:03 Dose: 30 mg Timolol Maleate (Timoptic 0.5%) 1 drop OU DAILY [facility] Last Admin: 08/04/17 10:04 Dose: 1 drop - Objective Vital Signs: Vital Signs Temperature 37.4 C 08/04/17 06:00 Pulse Rate 78 08/04/17 06:00 Respiratory Rate 18 08/04/17 06:00 Blood Pressure 134/57 08/04/17 06:00 O2 Sat by Pulse Oximetry (%) 93 L 08/03/17 21:00 Constitutional: Yes: Other (confused, agitated) Cardiovascular: Yes: Regular Rate and Rhythm. No: Gallop, Murmur, Rub Respiratory: Yes: Regular, CTA Bilaterally. No: Rales, Rhonchi, Wheezes Gastrointestinal: Yes: Normal Bowel Sounds, Soft. No: Distention, Tenderness Extremities: Yes: WNL Edema: No Labs: CBC, BMP 08/04/17 05:35 08/04/17 05:35 INR, PTT INR 1.11 (0.82-1.09) 08/04/17 05:35 Problem List - Problems (1) DKA (diabetic ketoacidoses) Code(s): E13.10 - OTH DIABETES MELLITUS WITH KETOACIDOSIS WITHOUT COMA Qualifiers: Diabetes mellitus type: type 2 Diabetes mellitus complication detail: without coma Qualified Code(s): E11.10 - Type 2 diabetes mellitus with ketoacidosis without coma (2) Hospital-acquired pneumonia Code(s): J18.9 - PNEUMONIA, UNSPECIFIED ORGANISM (3) Sepsis Code(s): A41.9 - SEPSIS, UNSPECIFIED ORGANISM (4) SHANTA (acute kidney injury) Code(s): N17.9 - ACUTE KIDNEY FAILURE, UNSPECIFIED (5) CKD (chronic kidney disease) Code(s): N18.9 - CHRONIC KIDNEY DISEASE, UNSPECIFIED (6) Diabetes mellitus Code(s): E11.9 - TYPE 2 DIABETES MELLITUS WITHOUT COMPLICATIONS Qualifiers: Diabetes mellitus type: type 2 Diabetes mellitus complication status: with kidney complications Diabetes mellitus complication detail: with chronic kidney disease Diabetes mellitus school transportation supervisor insulin use: without school transportation supervisor use (7) Hyperlipidemia Code(s): E78.5 - HYPERLIPIDEMIA, UNSPECIFIED (8) Hypertension Code(s): I10 - ESSENTIAL (PRIMARY) HYPERTENSION Qualifiers: Hypertension type: essential hypertension Qualified Code(s): I10 - Essential (primary) hypertension (9) Anemia Code(s): D64.9 - ANEMIA, UNSPECIFIED Qualifiers: Other causes of anemia: acute posthemorrhagic Assessment/Plan (1) DKA (diabetic ketoacidoses) Assessment/Plan: -resolved Code(s): E13.10 - OTH DIABETES MELLITUS WITH KETOACIDOSIS WITHOUT COMA Qualifiers: Diabetes mellitus type: type 2 Diabetes mellitus complication detail: without coma Qualified Code(s): E11.10 - Type 2 diabetes mellitus with ketoacidosis without coma (2) Hospital-acquired pneumonia Assessment/Plan: -ID following -continue zosyn and tamiflu Code(s): J18.9 - PNEUMONIA, UNSPECIFIED ORGANISM (3) Sepsis Assessment/Plan -leukocytosis improving slowly -suspect symptoms today more c/w anemia -transfuse -continue antibiotics as above Code(s): A41.9 - SEPSIS, UNSPECIFIED ORGANISM (4) SHANTA (acute kidney injury) Assessment/Plan: -IVF d/c today -transfusion with lasix to prevent fluid overload Code(s): N17.9 - ACUTE KIDNEY FAILURE, UNSPECIFIED (5) CKD (chronic kidney disease) Assessment/Plan: -approaching baseline Code(s): N18.9 - CHRONIC KIDNEY DISEASE, UNSPECIFIED (6) Diabetes mellitus Assessment/Plan: -diabetic diet -levemir and SSI Code(s): E11.9 - TYPE 2 DIABETES MELLITUS WITHOUT COMPLICATIONS Qualifiers: Diabetes mellitus type: type 2 Diabetes mellitus complication status: with kidney complications Diabetes mellitus complication detail: with chronic kidney disease Diabetes mellitus senior living insulin use: without school transportation supervisor use (7) Hyperlipidemia Assessment/Plan: -continue lipitor Code(s): E78.5 - HYPERLIPIDEMIA, UNSPECIFIED (8) Hypertension Assessment/Plan: -holding lisinopril secondary to renal function -monitor for elevation Code(s): I10 - ESSENTIAL (PRIMARY) HYPERTENSION Qualifiers: Hypertension type: essential hypertension Qualified Code(s): I10 - Essential (primary) hypertension (10) Tachycardia -case d/w cardiology -started on diltiazem -improved (11) Anemia -patient with drop in H/H -very symptomatic -suspect hemorrhagic since with recent GI bleed -will transfuse 2 units -getting IV iron -check stool for occult blood -start IV protonix bid
--- NOTE | 2017-08-04 12:40 | EKG ---
Test Reason : Blood Pressure : / mmHG Vent. Rate : 165 BPM Atrial Rate : 315 BPM P-R Int : 000 ms QRS Dur : 080 ms QT Int : 286 ms P-R-T Axes : 000 059 233 degrees QTc Int : 473 ms ATRIAL FLUTTER WITH VARIABLE A-V BLOCK LEFT VENTRICULAR HYPERTROPHY WITH REPOLARIZATION ABNORMALITY ABNORMAL ECG WHEN COMPARED WITH ECG OF 01-AUG-2017 22:10, ATRIAL FLUTTER HAS REPLACED SINUS RHYTHM VENT. RATE HAS INCREASED BY [address] NOW DEPRESSED IN INFERIOR LEADS ST NOW DEPRESSED IN ANTERIOR LEADS T WAVE INVERSION NOW EVIDENT IN INFERIOR LEADS T WAVE INVERSION NOW EVIDENT IN ANTERIOR LEADS Confirmed by JIAN DIAZ MD ([id number]) on 08/04/2017 12:40:00 PM Referred By: JESSIE TORO Confirmed By:JIAN DIAZ MD
--- NOTE | 2017-08-04 13:19 | PN ---
Progress Note (short form) - Note Progress Note: Renal follow up for SHANTA on CKD Pt seen and examined at the bedside awake and alert no acute complaints getting PRBC transfusion making urine denies any sob, cp, cough, abd pain Vital Signs Temperature 99.3 F 08/04/17 06:00 Pulse Rate 78 08/04/17 06:00 Respiratory Rate 18 08/04/17 06:00 Blood Pressure 134/57 08/04/17 06:00 O2 Sat by Pulse Oximetry (%) 93 L 08/03/17 21:00 Intake & Output 08/01/17 08/02/17 08/03/17 08/04/17 23:59 23:59 23:59 23:59 Intake Total 1532 2610 52372 Output Total 1025 1900 250 Balance 507 710 87541 Weight 56.699 kg 51.165 kg 50.349 kg NAD + rales in b/l lung whitehead no LE edema CBC, BMP 08/04/17 05:35 08/04/17 05:35 Laboratory Tests 08/03/17 08/04/17 05:00 05:35 Sodium 148 H Potassium 4.2 Carbon Dioxide 24 BUN 50 H D Creatinine 1.8 H Calcium 8.1 L Phosphorus 2.7 Magnesium 2.0 Albumin 2.2 L Current Medications Albuterol Sulfate (Ventolin 0.083% Nebulizer Soln -) 1 amp NEB Q4H PRN PRN Reason: SHORT OF BREATH/WHEEZING Atorvastatin Calcium (Lipitor -) 10 mg PO [facility] Last Admin: 08/03/17 21:28 Dose: 10 mg Chlorhexidine Gluconate (Hibiclens For Decolonization -) 1 applic TP [facility] Last Admin: 08/03/17 21:17 Dose: Not Given Diltiazem HCl (Cardizem -) 60 mg PO Q6HPO [facility] Last Admin: 08/04/17 11:58 Dose: 60 mg Ferrous Sulfate (Feosol -) 325 mg PO DAILY [facility] Last Admin: 08/04/17 10:03 Dose: 325 mg Dextrose/Sodium Chloride (D5-Ns -) 1,000 mls @ 100 mls/hr IV ASDIR [facility] Last Admin: 08/03/17 21:35 Dose: 100 mls/hr Piperacillin/Tazobactam/Dextrose (Zosyn 2.25gm Ivpb (Premix)) 2.25 gm in 50 mls @ 100 mls/hr IVPB Q8H-IV [facility] PRN Reason: Protocol Last Admin: 08/04/17 10:03 Dose: 100 mls/hr Insulin Aspart (Novolog Vial Sliding Scale -) 1 vial SQ ACHS [facility] PRN Reason: Protocol Last Admin: 08/04/17 11:58 Dose: 4 units Insulin Detemir (Levemir Vial) 8 units SQ HS [facility] Last Admin: 08/03/17 21:28 Dose: 8 unit Lactobacillus Acidophilus (Bacid -) 1 tab PO DAILY [facility] Last Admin: 08/04/17 10:03 Dose: 1 tab Mupirocin (Bactroban Ointment (For Decolonization) -) 1 applic NS BID [facility] Stop: 08/07/17 09:59 Last Admin: 08/04/17 10:04 Dose: Not Given Oseltamivir Phosphate (Tamiflu -) 30 mg PO DAILY [facility] Stop: 08/08/17 10:44 Last Admin: 08/04/17 10:03 Dose: 30 mg Timolol Maleate (Timoptic 0.5%) 1 drop OU DAILY [facility] Last Admin: 08/04/17 10:04 Dose: 1 drop 76 year old gentleman with PMhx of CKD Stage 3 (baseline Cr ~1.4), Hypertension , DM who presented to the ED with complaints of fatigue and anorexia and found to have DKA and SHANTA with Cr of 2.9. #Acute Kidney Injury Renal function improving toward baseline will d/c IVF given lung exam has rales oral intake as tolerated #CKD baseline Cr ~1.4 Likely etiology is diabetic nephropathy UPCR is 1.9 now in state of SHANTA, will need to repeat studies once renal function has recovered #DKA now resolved as anion gap is closed continue SC insulin will D/c IVF with dextrose in it #Anemia getting prbc transfusion Tomás Al DO
--- NOTE | 2017-08-04 13:30 | PN ---
Progress Note, Physician History of Present Illness: PULMONARY ALERT,NAD,-CP,-SOB. BLOOD SUGARS IMPROVING. PT CURRENTLY BEING TRANSFUSED - Current Medication List Current Medications: Active Medications Albuterol Sulfate (Ventolin 0.083% Nebulizer Soln -) 1 amp NEB Q4H PRN PRN Reason: SHORT OF BREATH/WHEEZING Atorvastatin Calcium (Lipitor -) 10 mg PO [facility] Last Admin: 08/03/17 21:28 Dose: 10 mg Chlorhexidine Gluconate (Hibiclens For Decolonization -) 1 applic TP [facility] Last Admin: 08/03/17 21:17 Dose: Not Given Diltiazem HCl (Cardizem -) 60 mg PO Q6HPO [facility] Last Admin: 08/04/17 11:58 Dose: 60 mg Ferrous Sulfate (Feosol -) 325 mg PO DAILY [facility] Last Admin: 08/04/17 10:03 Dose: 325 mg Piperacillin/Tazobactam/Dextrose (Zosyn 2.25gm Ivpb (Premix)) 2.25 gm in 50 mls @ 100 mls/hr IVPB Q8H-IV [facility] PRN Reason: Protocol Last Admin: 08/04/17 10:03 Dose: 100 mls/hr Iron Sucrose 100 mg/ Sodium (Chloride) 100 mls @ 200 mls/hr IVPB ONCE ONE Stop: 08/05/17 10:29 Insulin Aspart (Novolog Vial Sliding Scale -) 1 vial SQ [facility] PRN Reason: Protocol Last Admin: 08/04/17 11:58 Dose: 4 units Insulin Detemir (Levemir Vial) 8 units SQ [facility] Last Admin: 08/03/17 21:28 Dose: 8 unit Lactobacillus Acidophilus (Bacid -) 1 tab PO DAILY [facility] Last Admin: 08/04/17 10:03 Dose: 1 tab Mupirocin (Bactroban Ointment (For Decolonization) -) 1 applic NS BID [facility] Stop: 08/07/17 09:59 Last Admin: 08/04/17 10:04 Dose: Not Given Oseltamivir Phosphate (Tamiflu -) 30 mg PO DAILY [facility] Stop: 08/08/17 10:44 Last Admin: 08/04/17 10:03 Dose: 30 mg Timolol Maleate (Timoptic 0.5%) 1 drop OU DAILY [facility] Last Admin: 08/04/17 10:04 Dose: 1 drop - Objective Vital Signs: Vital Signs Temperature 99.3 F 08/04/17 06:00 Pulse Rate 78 08/04/17 06:00 Respiratory Rate 18 08/04/17 06:00 Blood Pressure 134/57 08/04/17 06:00 O2 Sat by Pulse Oximetry (%) 93 L 08/03/17 21:00 Constitutional: Yes: Well Nourished, Calm Eyes: Yes: WNL HENT: Yes: WNL Neck: Yes: WNL Cardiovascular: Yes: Regular Rate and Rhythm, S1 Respiratory: Yes: CTA Bilaterally Gastrointestinal: Yes: Normal Bowel Sounds, Soft Extremities: Yes: WNL Edema: No Labs: CBC, BMP 08/04/17 05:35 08/04/17 05:35 INR, PTT INR 1.11 (0.82-1.09) 08/04/17 05:35 Assessment/Plan Problem List - Problems (1) DKA (diabetic ketoacidoses) Assessment/Plan: Code(s): E13.10 - OTH DIABETES MELLITUS WITH KETOACIDOSIS WITHOUT COMA Qualifiers: Diabetes mellitus type: type 2 Diabetes mellitus complication detail: without coma Qualified Code(s): E11.10 - Type 2 diabetes mellitus with ketoacidosis without coma (2) Sepsis Assessment/Plan: Code(s): A41.9 - SEPSIS, UNSPECIFIED ORGANISM (3) Hospital-acquired pneumonia Assessment/Plan: Code(s): J18.9 - PNEUMONIA, UNSPECIFIED ORGANISM (4) Hyperkalemia Assessment/Plan: Code(s): E87.5 - HYPERKALEMIA (5) CKD (chronic kidney disease) Assessment/Plan: Code(s): N18.9 - CHRONIC KIDNEY DISEASE, UNSPECIFIED (6) Hypertension Assessment/Plan: Code(s): I10 - ESSENTIAL (PRIMARY) HYPERTENSION Qualifiers: Hypertension type: essential hypertension Qualified Code(s): I10 - Essential (primary) hypertension (7) Hyperlipidemia Assessment/Plan: Code(s): E78.5 - HYPERLIPIDEMIA, UNSPECIFIED (8) DVT prophylaxis Assessment/Plan: Code(s): [id number] - 9 ANEMIA Assessment/Plan Episode of SVT (?) ADINA : chronic changes noted on CT from 2007 Rocephin daily monitor lytes,renal fubction monitor h+h Sputum [employer]: Do not clinically suspect M TB O2 as needed Follow BGM VTE prophylaxis Transfuse DR RENDON
--- NOTE | 2017-08-04 15:59 | PN ---
Progress Note, Physician History of Present Illness: stable doing well talking about meeting his wbc trending down - Current Medication List Current Medications: Active Medications Albuterol Sulfate (Ventolin 0.083% Nebulizer Soln -) 1 amp NEB Q4H PRN PRN Reason: SHORT OF BREATH/WHEEZING Atorvastatin Calcium (Lipitor -) 10 mg PO HS [facility] Last Admin: 08/03/17 21:28 Dose: 10 mg Chlorhexidine Gluconate (Hibiclens For Decolonization -) 1 applic TP [facility] Last Admin: 08/03/17 21:17 Dose: Not Given Diltiazem HCl (Cardizem -) 60 mg PO Q6HPO [facility] Last Admin: 08/04/17 11:58 Dose: 60 mg Ferrous Sulfate (Feosol -) 325 mg PO DAILY [facility] Last Admin: 08/04/17 10:03 Dose: 325 mg Furosemide (Lasix Injection -) 20 mg IVPUSH ONCE ONE Stop: 08/04/17 18:01 Piperacillin/Tazobactam/Dextrose (Zosyn 2.25gm Ivpb (Premix)) 2.25 gm in 50 mls @ 100 mls/hr IVPB Q8H-IV [facility] PRN Reason: Protocol Last Admin: 08/04/17 10:03 Dose: 100 mls/hr Iron Sucrose 100 mg/ Sodium (Chloride) 100 mls @ 200 mls/hr IVPB ONCE ONE Stop: 08/05/17 10:29 Insulin Aspart (Novolog Vial Sliding Scale -) [address] [facility] PRN Reason: Protocol Last Admin: 08/04/17 11:58 Dose: 4 units Insulin Detemir (Levemir Vial) 8 units SQ [facility] Last Admin: 08/03/17 21:28 Dose: 8 unit Lactobacillus Acidophilus (Bacid -) 1 tab PO DAILY [facility] Last Admin: 08/04/17 10:03 Dose: 1 tab Mupirocin (Bactroban Ointment (For Decolonization) -) 1 applic NS BID [facility] Stop: 08/07/17 09:59 Last Admin: 08/04/17 10:04 Dose: Not Given Oseltamivir Phosphate (Tamiflu -) 30 mg PO DAILY [facility] Stop: 08/08/17 10:44 Last Admin: 08/04/17 10:03 Dose: 30 mg Pantoprazole Sodium (Protonix Iv) 40 mg IVPUSH BID [facility] Timolol Maleate (Timoptic 0.5%) 1 drop OU DAILY [facility] Last Admin: 08/04/17 10:04 Dose: 1 drop - Objective Vital Signs: Vital Signs Temperature 97.8 F 08/04/17 15:05 Pulse Rate 79 08/04/17 15:05 Respiratory Rate 16 08/04/17 15:05 Blood Pressure 144/58 08/04/17 15:05 O2 Sat by Pulse Oximetry (%) 99 08/04/17 13:00 Constitutional: Yes: No Distress, Calm Cardiovascular: Yes: Regular Rate and Rhythm Respiratory: Yes: Regular, Poor Air Entry Gastrointestinal: Yes: Normal Bowel Sounds, Soft Musculoskeletal: Yes: WNL Extremities: Yes: WNL Neurological: Yes: Alert Psychiatric: Yes: Alert Labs: CBC, BMP 08/04/17 05:35 08/04/17 05:35 INR, PTT INR 1.11 (0.82-1.09) 08/04/17 05:35 Assessment/Plan Problem List - Problems (1) DKA (diabetic ketoacidoses) Assessment/Plan: Code(s): E13.10 - OTH DIABETES MELLITUS WITH KETOACIDOSIS WITHOUT COMA Qualifiers: Diabetes mellitus type: type 2 Diabetes mellitus complication detail: without coma Qualified Code(s): E11.10 - Type 2 diabetes mellitus with ketoacidosis without coma (2) Sepsis Assessment/Plan: Code(s): A41.9 - SEPSIS, UNSPECIFIED ORGANISM (3) Hospital-acquired pneumonia Assessment/Plan: Code(s): J18.9 - PNEUMONIA, UNSPECIFIED ORGANISM (4) Hyperkalemia Assessment/Plan: Code(s): E87.5 - HYPERKALEMIA (5) CKD (chronic kidney disease) Assessment/Plan: Code(s): N18.9 - CHRONIC KIDNEY DISEASE, UNSPECIFIED (6) Hypertension Assessment/Plan: Code(s): I10 - ESSENTIAL (PRIMARY) HYPERTENSION Qualifiers: Hypertension type: essential hypertension Qualified Code(s): I10 - Essential (primary) hypertension (7) Hyperlipidemia Assessment/Plan: Code(s): E78.5 - HYPERLIPIDEMIA, UNSPECIFIED patients wbc has increased inspite of ceftriaxone plan continue abx continue to monitor wbc incentive anastasiya rest as per the team
[2017-08-04] MEDS ORDERED: FUROSEMIDE 40 MG/4 ML INJECTABLE VIAL IVPUSH ONE (18:00)
[2017-08-04] MEDS: PANTOPRAZOLE SODIUM 40 MG VIAL IVPUSH SCH (21:34)
[2017-08-04] MEDS: ATORVASTATIN CA 10 MG TABLET (FP) PO SCH (21:34)
[2017-08-04] MEDS: INSULIN DETEMIR 100 UNITS/ML MDV SQ SCH (21:45)
[2017-08-04] MEDS: CHLORHEXIDINE GLUCONATE 4% CLEANSER FOR DECOLONIZATION TP SCH (21:48)
[2017-08-05] MEDS: dilTIAZem HCL 60 MG TABLET (FP) PO SCH ×5 (00:20→23:27)
[2017-08-05] MEDS ORDERED: PT OWN MED DRAWER 7, Y5N ONE (02:42)
[2017-08-05] MEDS: PIPERACILLIN/TAZOB 2.25 GM 2.25 GM/50 ML BAG IVPB SCH ×3 (02:49→17:08)
[2017-08-05] MEDS: INSULIN SLIDING SCALE (NOVOLOG) 1 VIAL SQ SCH ×4 (06:01→22:15)
[2017-08-05 06:08] LABS: HEMATOCRIT 29.5 % (35.4-49); HEMOGLOBIN 9.8 GM/dL (11.7-16.9); MCH 29.4 pg (25.7-33.7); MCHC 33.2 g/dl (32.0-35.9); MEAN CELL VOLUME 88.7 fl (80-96); MEAN PLT VOLUME 7.8 fl (7.5-11.1); PLATELET COUNT 415 K/MM3 (134-434); RBC 3.33 M/mm3 (4.00-5.60); RDW 15.1 % (11.9-15.9); WHITE BLOOD COUNT 15.6 K/mm3 (4.0-10.0)
[2017-08-05 06:36] LABS: ANION GAP 6 (8-16); BLOOD UREA NITROGEN 41 mg/dL (7-18); CALCIUM 8.3 mg/dL (8.5-10.1); CHLORIDE 117 mmol/L (98-107); CO2 30 mmol/L (21-32); GLUCOSE,RANDOM 107 mg/dL (74-106); MAGNESIUM 1.9 mg/dL (1.8-2.4); PHOSPHOROUS 2.6 mg/dL (2.5-4.9); POTASSIUM 3.8 mmol/L (3.5-5.1); SODIUM 153 mmol/L (136-145)
--- NOTE | 2017-08-05 08:38 | PN ---
Progress Note (short form) - Note Progress Note: Dr. Phillips to document today. Hb up to 9.8 GM. BUN and Creatinine much improved For PT eval.
--- NOTE | 2017-08-05 09:14 | PN ---
Progress Note (short form) - Note Progress Note: Denies any complaints Improving apetite Vital Signs Period Temp Pulse Resp BP Sys/Sy Pulse Ox Last 24 Hr 97.6 F-98.8 F 70-81 16-20 125-144/53-62 95-99 PE: Awake ,alert Neck: Supple, No JVD HEENT: EOMI Lungs: coarse breath sounds Abd: Benign CVS: S1S2 Ext: No edema Neuro: No focal deficit CMP Sodium 153 mmol/L (136-145) H 08/05/17 05:35 Potassium 3.8 mmol/L (3.5-5.1) 08/05/17 05:35 Chloride 117 mmol/L (98-107) H 08/05/17 05:35 Carbon Dioxide 30 mmol/L (21-32) D 08/05/17 05:35 Anion Gap 6 (8-16) L 08/05/17 05:35 BUN 41 mg/dL (7-18) H 08/05/17 05:35 Creatinine 2.0 mg/dL (0.7-1.3) H 08/05/17 05:35 Creat Clearance w eGFR 29.09 (>60) 08/03/17 05:00 POC Glucometer 116 UNITS (80-120) 08/05/17 05:45 Random Glucose 107 mg/dL (74-106) H D 08/05/17 05:35 Hemoglobin A1c % 7.1 % (4.8-6.0) H 08/02/17 07:00 Lactic Acid 1.6 mmol/L (0.0-2.0) 08/02/17 07:00 Calcium 8.3 mg/dL (8.5-10.1) L 08/05/17 05:35 Phosphorus 2.6 mg/dL (2.5-4.9) 08/05/17 05:35 Magnesium 1.9 mg/dL (1.8-2.4) 08/05/17 05:35 Iron 11 ug/dL (38-169) L 08/03/17 05:00 TIBC 225 ug/dL (250-450) L 08/03/17 05:00 Iron Saturation 5 % (15-55) L 08/03/17 05:00 Ferritin 85.737 ng/ml (16.4-293.9) 08/03/17 05:00 Total Bilirubin 0.3 mg/dL (0.2-1.0) D 08/03/17 05:00 AST 11 U/L (15-37) L 08/03/17 05:00 ALT 10 U/L (12-78) L 08/03/17 05:00 Alkaline Phosphatase 88 U/L (45-117) 08/03/17 05:00 Creatine Kinase 41 IU/L (39-308) 08/01/17 21:40 Troponin I 0.03 ng/ml (0.00-0.05) D 08/01/17 21:40 B-Natriuretic Peptide 2491.06 pg/ml (5-450) H 08/01/17 21:40 Total Protein 5.1 g/dl (6.4-8.2) L 08/03/17 05:00 Albumin 2.2 g/dl (3.4-5.0) L 08/03/17 05:00 Current Medications Generic Name Dose Route Start Last Admin Trade Name Freq PRN Reason Stop Dose Admin Albuterol Sulfate 1 amp 08/03/17 11:16 Ventolin 0.083% Nebulizer Soln - NEB Q4H PRN SHORT OF BREATH/WHEEZING Atorvastatin Calcium 10 mg 08/02/17 22:00 08/04/17 21:34 Lipitor - PO 10 mg HS [facility] Administration Chlorhexidine Gluconate 1 applic 08/02/17 22:00 08/04/17 21:48 Hibiclens For Decolonization - TP Not Given HS [facility] Diltiazem HCl 60 mg 08/03/17 12:00 08/05/17 05:47 Cardizem - PO 60 mg Q6HPO [facility] Administration Ferrous Sulfate 325 mg 08/02/17 10:00 08/04/17 10:03 Feosol - PO 325 mg DAILY [facility] Administration Piperacillin/Tazobactam/Dextrose 2.25 gm in 50 mls @ 100 mls/hr 08/03/17 16: 00 08/05/17 02:49 Zosyn 2.25gm Ivpb (Premix) IVPB 100 mls/hr Q8H-IV [facility] Administration Protocol Iron Sucrose 100 mg/ Sodium 100 mls @ 200 mls/hr 08/05/17 10:00 Chloride IVPB 08/05/17 10:29 ONCE ONE Insulin Aspart 1 vial 08/03/17 22:00 08/05/17 06:01 Novolog Vial Sliding Scale - SQ Not Given ACHS [facility] Protocol Insulin Detemir 8 units 08/03/17 22:00 08/04/17 21:45 Levemir Vial SQ 8 units HS [facility] Administration Lactobacillus Acidophilus 1 tab 08/02/17 10:45 08/04/17 10:03 Bacid - PO 1 tab DAILY [facility] Administration Mupirocin 1 applic 08/02/17 10:00 08/04/17 21:48 Bactroban Ointment (For Decolonization) - NS 08/07/17 09:59 Not Given BID [facility] Oseltamivir Phosphate 30 mg 08/03/17 10:45 08/04/17 10:03 Tamiflu - PO 08/08/17 10:44 30 mg DAILY [facility] Administration Pantoprazole Sodium 40 mg 08/04/17 22:00 08/04/17 21:34 Protonix Iv IVPUSH 40 mg BID [facility] Administration Timolol Maleate 1 drop 08/02/17 10:00 08/04/17 10:04 Timoptic 0.5% OU 1 drop DAILY [facility] Administration AP: T2DM with Hyperglycemia ?DKA SHANTA COPD Anemia Mild acidosis resolved. Cr 2.0 today Acetone trace positive D5NS d/ignacio yesterday Decrease Levemir 6 units daily at HS Novolog SS coverage BGM QACHS and at 3 a.m. Electrolyte replacement as necessary Will f/u Problem List - Problems (1) SHANTA (acute kidney injury) Code(s): N17.9 - ACUTE KIDNEY FAILURE, UNSPECIFIED (2) DKA (diabetic ketoacidoses) Code(s): E13.10 - OTH DIABETES MELLITUS WITH KETOACIDOSIS WITHOUT COMA Qualifiers: Diabetes mellitus type: type 2 Diabetes mellitus complication detail: without coma Qualified Code(s): E11.10 - Type 2 diabetes mellitus with ketoacidosis without coma (3) Diabetes mellitus Code(s): E11.9 - TYPE 2 DIABETES MELLITUS WITHOUT COMPLICATIONS Qualifiers: Diabetes mellitus type: type 2 Diabetes mellitus complication status: with kidney complications Diabetes mellitus complication detail: with chronic kidney disease Diabetes mellitus multi site leasing consultant insulin use: without multi site leasing consultant use
[2017-08-05 09:39] LABS: PLATELET ESTIMATE ADEQUATE
[2017-08-05] MEDS ORDERED: IRON SUCROSE INJECTION 100 MG in SODIUM CHLORIDE 95 ML IVPB ONE (10:00)
[2017-08-05] MEDS: LACTOBACILLUS ACIDOPHILUS 1 EACH TAB (FP) PO SCH (10:20)
[2017-08-05] MEDS: OSELTAMIVIR PHOSPHATE 30 MG CAPSULE PO SCH (10:20)
[2017-08-05] MEDS: MUPIROCIN 2% TOPICAL OINTMENT FOR DECOLONIZATION NS SCH (10:20)
[2017-08-05] MEDS: PANTOPRAZOLE SODIUM 40 MG VIAL IVPUSH SCH (10:20)
[2017-08-05] MEDS: FERROUS SO4 325 MG TABLET (FP) PO SCH (10:20)
[2017-08-05] MEDS: TIMOLOL 0.5% OPHTHALMIC SOL 5 ML BOTTLE OU SCH (10:20)
--- NOTE | 2017-08-05 11:12 | PN ---
Progress Note (short form) - Note Progress Note: s: no palps dizzy; mild sob; mild sharp cp with deep breath, cough, palpation o: Vital Signs Period Temp Pulse Resp BP Sys/Sy Pulse Ox Last 24 Hr 97.8 F-98.8 F 70-81 16-20 125-144/53-62 95-99 NAD, cachectic, calm JVD flat, neck supple diffuse rhonchi, nl effort rrr nl s1, s2 2/6 sys murmur at apex + bs soft nt nd. no le e/c/c aaox3 no jaundice, diaphoresis +chest wall tenderness Current Medications Generic Name Dose Route Start Last Admin Trade Name Freq PRN Reason Stop Dose Admin Albuterol Sulfate 1 amp 08/03/17 11:16 Ventolin 0.083% Nebulizer Soln - NEB Q4H PRN SHORT OF BREATH/WHEEZING Atorvastatin Calcium 10 mg 08/02/17 22:00 08/04/17 21:34 Lipitor - PO 10 mg HS [facility] Administration Chlorhexidine Gluconate 1 applic 08/02/17 22:00 08/04/17 21:48 Hibiclens For Decolonization - TP Not Given HS [facility] Diltiazem HCl 60 mg 08/03/17 12:00 08/05/17 05:47 Cardizem - PO 60 mg Q6HPO [facility] Administration Ferrous Sulfate 325 mg 08/02/17 10:00 08/05/17 10:20 Feosol - PO 325 mg DAILY [facility] Administration Piperacillin/Tazobactam/Dextrose 2.25 gm in 50 mls @ 100 mls/hr 08/03/17 16: 00 08/05/17 10:20 Zosyn 2.25gm Ivpb (Premix) IVPB 100 mls/hr Q8H-IV [facility] Administration Protocol Insulin Aspart 1 vial 08/03/17 22:00 08/05/17 06:01 Novolog Vial Sliding Scale - SQ Not Given ACHS [facility] Protocol Insulin Detemir 8 units 08/03/17 22:00 08/04/17 21:45 Levemir Vial SQ 8 units HS [facility] Administration Lactobacillus Acidophilus 1 tab 08/02/17 10:45 08/05/17 10:20 Bacid - PO 1 tab DAILY [facility] Administration Mupirocin 1 applic 08/02/17 10:00 08/05/17 10:20 Bactroban Ointment (For Decolonization) - NS 08/07/17 09:59 Not Given BID [facility] Oseltamivir Phosphate 30 mg 08/03/17 10:45 08/05/17 10:20 Tamiflu - PO 08/08/17 10:44 30 mg DAILY [facility] Administration Timolol Maleate 1 drop 08/02/17 10:00 08/05/17 10:20 Timoptic 0.5% OU 1 drop DAILY [facility] Administration CBC, BMP 08/05/17 05:35 08/05/17 05:35 EKG aflutter with variable block, [address]-t wave ab tele: sr chest ct: RUL RML and bilateral Lower lobe patchy infiltrates c/w pna. asc aorta 4.5 cm. over distended stomach echo 06/2017: mod lvh. nl lv fn. nl rv size/fn. 1+ lae. mod-sev mac with mod ms. 1+ mr. nl rvsp. 1+ ao dilation A/P 76 yo with pmhx of htn, hl, pad, cva (no residual deficits), copd, dm, mgus, esthesioneuroblastoma treated with radiation therapy, chronic anemia recently worsened s/p recent GIB last month who p/w sob/weakness and noted to be in DKA with pna, hospital course now complicated by episode of SVT. SVT - self-limited episode in setting of recovering pna/dka. monitor for recurrence on tele - preserved EF. started dilt 60 mg po q6h for suppression. Patient with lvh and mod MS will likely not tolerate prolonged rapid HR's. - atach vs. atypical flutter with h/o prior CVA (details of etiology/work up at that time unknown). patient with h/o recent gib and significant anemia. discussed with pmd, not thought to be safe for AC or ASA at this time. htn -stable cva/pad - con't statin. not currently candidate for asa due to recent gib and anemia. resume if/when safe. mild asc ao dilation - cont bp control dc tele
--- NOTE | 2017-08-05 11:13 | PN ---
Progress Note, Physician Chief Complaint: Mr Chen says he is feeling better today. Says his breathing is improving. No cp or n/v. - Current Medication List Current Medications: Active Medications Albuterol Sulfate (Ventolin 0.083% Nebulizer Soln -) 1 amp NEB Q4H PRN PRN Reason: SHORT OF BREATH/WHEEZING Atorvastatin Calcium (Lipitor -) 10 mg PO HS [facility] Last Admin: 08/04/17 21:34 Dose: 10 mg Chlorhexidine Gluconate (Hibiclens For Decolonization -) 1 applic TP HS [facility] Last Admin: 08/04/17 21:48 Dose: Not Given Diltiazem HCl (Cardizem -) 60 mg PO Q6HPO [facility] Last Admin: 08/05/17 05:47 Dose: 60 mg Ferrous Sulfate (Feosol -) 325 mg PO DAILY [facility] Last Admin: 08/05/17 10:20 Dose: 325 mg Piperacillin/Tazobactam/Dextrose (Zosyn 2.25gm Ivpb (Premix)) 2.25 gm in 50 mls @ 100 mls/hr IVPB Q8H-IV [facility] PRN Reason: Protocol Last Admin: 08/05/17 10:20 Dose: 100 mls/hr Insulin Aspart (Novolog Vial Sliding Scale -) 1 vial SQ ACHS [facility] PRN Reason: Protocol Last Admin: 08/05/17 06:01 Dose: Not Given Insulin Detemir (Levemir Vial) 8 units SQ HS [facility] Last Admin: 08/04/17 21:45 Dose: 8 units Lactobacillus Acidophilus (Bacid -) 1 tab PO DAILY [facility] Last Admin: 08/05/17 10:20 Dose: 1 tab Mupirocin (Bactroban Ointment (For Decolonization) -) 1 applic NS BID [facility] Stop: 08/07/17 09:59 Last Admin: 08/05/17 10:20 Dose: Not Given Oseltamivir Phosphate (Tamiflu -) 30 mg PO DAILY [facility] Stop: 08/08/17 10:44 Last Admin: 08/05/17 10:20 Dose: 30 mg Timolol Maleate (Timoptic 0.5%) 1 drop OU DAILY [facility] Last Admin: 08/05/17 10:20 Dose: 1 drop - Objective Vital Signs: Vital Signs Temperature 37.1 C 08/05/17 06:00 Pulse Rate 77 08/05/17 06:00 Respiratory Rate 20 08/05/17 06:00 Blood Pressure 125/53 08/05/17 06:00 O2 Sat by Pulse Oximetry (%) 96 08/05/17 01:00 Constitutional: Yes: Well Nourished, No Distress, Calm Cardiovascular: Yes: Regular Rate and Rhythm. No: Gallop, Murmur, Rub Respiratory: Yes: Regular, CTA Bilaterally, On Nasal O2. No: Rales, Rhonchi, Wheezes Gastrointestinal: Yes: Normal Bowel Sounds, Soft. No: Distention, Tenderness Extremities: Yes: WNL Edema: No Labs: CBC, BMP 08/05/17 05:35 08/05/17 05:35 INR, PTT INR 1.11 (0.82-1.09) 08/04/17 05:35 Problem List - Problems (1) DKA (diabetic ketoacidoses) Code(s): E13.10 - OTH DIABETES MELLITUS WITH KETOACIDOSIS WITHOUT COMA Qualifiers: Diabetes mellitus type: type 2 Diabetes mellitus complication detail: without coma Qualified Code(s): E11.10 - Type 2 diabetes mellitus with ketoacidosis without coma (2) Hospital-acquired pneumonia Code(s): J18.9 - PNEUMONIA, UNSPECIFIED ORGANISM (3) Sepsis Code(s): A41.9 - SEPSIS, UNSPECIFIED ORGANISM (4) SHANTA (acute kidney injury) Code(s): N17.9 - ACUTE KIDNEY FAILURE, UNSPECIFIED (5) CKD (chronic kidney disease) Code(s): N18.9 - CHRONIC KIDNEY DISEASE, UNSPECIFIED (6) Diabetes mellitus Code(s): E11.9 - TYPE 2 DIABETES MELLITUS WITHOUT COMPLICATIONS Qualifiers: Diabetes mellitus type: type 2 Diabetes mellitus complication status: with kidney complications Diabetes mellitus complication detail: with chronic kidney disease Diabetes mellitus mcfp insulin use: without mcfp use (7) Hyperlipidemia Code(s): E78.5 - HYPERLIPIDEMIA, UNSPECIFIED (8) Hypertension Code(s): I10 - ESSENTIAL (PRIMARY) HYPERTENSION Qualifiers: Hypertension type: essential hypertension Qualified Code(s): I10 - Essential (primary) hypertension (9) Anemia Code(s): D64.9 - ANEMIA, UNSPECIFIED Qualifiers: Other causes of anemia: acute posthemorrhagic Assessment/Plan (1) DKA (diabetic ketoacidoses) Assessment/Plan: -resolved Code(s): E13.10 - OTH DIABETES MELLITUS WITH KETOACIDOSIS WITHOUT COMA Qualifiers: Diabetes mellitus type: type 2 Diabetes mellitus complication detail: without coma Qualified Code(s): E11.10 - Type 2 diabetes mellitus with ketoacidosis without coma (2) Hospital-acquired pneumonia Assessment/Plan: -ID following -continue zosyn and tamiflu -day 3/5 for tamiflu Code(s): J18.9 - PNEUMONIA, UNSPECIFIED ORGANISM (3) Sepsis Assessment/Plan -leukocytosis improving slowly -continue antibiotics as above Code(s): A41.9 - SEPSIS, UNSPECIFIED ORGANISM (4) SHANTA (acute kidney injury) Assessment/Plan: -appears at baseline Code(s): N17.9 - ACUTE KIDNEY FAILURE, UNSPECIFIED (5) CKD (chronic kidney disease) Assessment/Plan: -approaching baseline Code(s): N18.9 - CHRONIC KIDNEY DISEASE, UNSPECIFIED (6) Diabetes mellitus Assessment/Plan: -diabetic diet -levemir and SSI Code(s): E11.9 - TYPE 2 DIABETES MELLITUS WITHOUT COMPLICATIONS Qualifiers: Diabetes mellitus type: type 2 Diabetes mellitus complication status: with kidney complications Diabetes mellitus complication detail: with chronic kidney disease Diabetes mellitus mcfp insulin use: without mcfp use (7) Hyperlipidemia Assessment/Plan: -continue lipitor Code(s): E78.5 - HYPERLIPIDEMIA, UNSPECIFIED (8) Hypertension Assessment/Plan: -holding lisinopril secondary to renal function -monitor for elevation Code(s): I10 - ESSENTIAL (PRIMARY) HYPERTENSION Qualifiers: Hypertension type: essential hypertension Qualified Code(s): I10 - Essential (primary) hypertension (10) Tachycardia -case d/w cardiology -started on diltiazem -improved (11) Anemia -proper response to transfusion -stool negative for occult blood -stop IV protonix but will continue on oral protonix -monitor
--- NOTE | 2017-08-05 12:55 | PN ---
Progress Note, Physician History of Present Illness: stable doing well family in room - Current Medication List Current Medications: Active Medications Albuterol Sulfate (Ventolin 0.083% Nebulizer Soln -) 1 amp NEB Q4H PRN PRN Reason: SHORT OF BREATH/WHEEZING Atorvastatin Calcium (Lipitor -) 10 mg PO HS [facility] Last Admin: 08/04/17 21:34 Dose: 10 mg Chlorhexidine Gluconate (Hibiclens For Decolonization -) 1 applic TP HS [facility] Last Admin: 08/04/17 21:48 Dose: Not Given Diltiazem HCl (Cardizem -) 60 mg PO Q6HPO [facility] Last Admin: 08/05/17 05:47 Dose: 60 mg Ferrous Sulfate (Feosol -) 325 mg PO DAILY [facility] Last Admin: 08/05/17 10:20 Dose: 325 mg Piperacillin/Tazobactam/Dextrose (Zosyn 2.25gm Ivpb (Premix)) 2.25 gm in 50 mls @ 100 mls/hr IVPB Q8H-IV [facility] PRN Reason: Protocol Last Admin: 08/05/17 10:20 Dose: 100 mls/hr Insulin Aspart (Novolog Vial Sliding Scale -) 1 vial SQ [facility] PRN Reason: Protocol Last Admin: 08/05/17 11:40 Dose: Not Given Insulin Detemir (Levemir Vial) 8 units SQ [facility] Last Admin: 08/04/17 21:45 Dose: 8 units Lactobacillus Acidophilus (Bacid -) 1 tab PO DAILY [facility] Last Admin: 08/05/17 10:20 Dose: 1 tab Mupirocin (Bactroban Ointment (For Decolonization) -) 1 applic NS BID [facility] Stop: 08/07/17 09:59 Last Admin: 08/05/17 10:20 Dose: Not Given Oseltamivir Phosphate (Tamiflu -) 30 mg PO DAILY [facility] Stop: 08/08/17 10:44 Last Admin: 08/05/17 10:20 Dose: 30 mg Timolol Maleate (Timoptic 0.5%) 1 drop OU DAILY [facility] Last Admin: 08/05/17 10:20 Dose: 1 drop - Objective Vital Signs: Vital Signs Temperature 98.6 F 08/05/17 10:00 Pulse Rate 83 08/05/17 10:00 Respiratory Rate 18 08/05/17 10:00 Blood Pressure 117/57 08/05/17 10:00 O2 Sat by Pulse Oximetry (%) 92 L 08/05/17 10:00 Constitutional: Yes: No Distress, Calm Cardiovascular: Yes: Regular Rate and Rhythm Respiratory: Yes: Regular, CTA Bilaterally Gastrointestinal: Yes: Normal Bowel Sounds, Soft Musculoskeletal: Yes: Other Extremities: Yes: Other Neurological: Yes: Alert Psychiatric: Yes: Alert Labs: CBC, BMP 08/05/17 05:35 08/05/17 05:35 INR, PTT INR 1.11 (0.82-1.09) 08/04/17 05:35 Assessment/Plan Problem List - Problems (1) DKA (diabetic ketoacidoses) Assessment/Plan: Code(s): E13.10 - OTH DIABETES MELLITUS WITH KETOACIDOSIS WITHOUT COMA Qualifiers: Diabetes mellitus type: type 2 Diabetes mellitus complication detail: without coma Qualified Code(s): E11.10 - Type 2 diabetes mellitus with ketoacidosis without coma (2) Sepsis Assessment/Plan: Code(s): A41.9 - SEPSIS, UNSPECIFIED ORGANISM (3) Hospital-acquired pneumonia Assessment/Plan: Code(s): J18.9 - PNEUMONIA, UNSPECIFIED ORGANISM (4) Hyperkalemia Assessment/Plan: Code(s): E87.5 - HYPERKALEMIA (5) CKD (chronic kidney disease) Assessment/Plan: Code(s): N18.9 - CHRONIC KIDNEY DISEASE, UNSPECIFIED (6) Hypertension Assessment/Plan: Code(s): I10 - ESSENTIAL (PRIMARY) HYPERTENSION Qualifiers: Hypertension type: essential hypertension Qualified Code(s): I10 - Essential (primary) hypertension (7) Hyperlipidemia Assessment/Plan: Code(s): E78.5 - HYPERLIPIDEMIA, UNSPECIFIED patients wbc has increased inspite of ceftriaxone plan continue abx continue to monitor wbc incentive anastasiya rest as per the team wbc trending down
--- NOTE | 2017-08-05 13:47 | CONSULT ---
Consult Consult Specialty:: PM&R - History of Present Illness Chief Complaint: dysphagia History of Present Illness: This is a 76 year old man with a medical history of HTN, HLD, heart murmur, bronchitis, GIB 06/2017, DM, OA, who presented to the ED 08/01/17 with SOB, cough and generalized malaise. He was admitted for DKA. Nephrology was consulted for SHANTA on CKD, likely volume depletion due to DKA. ID was consulted for leukocytosis, possibly sepsis from PNA for which he is on Zosyn and Tamiflu. Cards and Pulm were consulted as well. Physiatry is being consulted for further recommendations. 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 Lt toe amput (old) tonsillect), Tonsillectomy (Lt toe amp (old)) - Alcohol/Substance Use Hx Alcohol Use: No History of Substance Use: reports: None - Smoking History Smoking history: Current every day smoker Have you smoked in the past 12 months: Yes Aproximately how many cigarettes per day: 15 - Social History Usual Living Arrangement: With Spouse (lives with in apartment without stairs to elevator) ADL: Independent (with [place]) History of Recent Travel: No Home Medications - Allergies Allergies/Adverse Reactions: Allergies Allergy/AdvReac Type Severity Reaction Status Date / Time No Known Allergies Allergy Verified 08/01/17 21:17 - Home Medications Home Medications: Ambulatory Orders Lisinopril [Prinivil -] 20 mg PO BID 05/11/14 Simvastatin [Zocor -] 20 mg PO HS 05/11/14 Timolol 0.5% [Timoptic] 1 drop OU DAILY 05/11/14 metFORMIN HCL [Glucophage] 1,000 mg PO BID 05/11/14 Aspirin [ASA -] 325 mg PO DAILY 09/10/14 Glipizide [Glipizide ER] 10 mg PO BID 09/10/14 Ferrous Sulfate [Feosol] 325 mg PO DAILY #30 tablet 07/25/17 Family Disease History - Family Disease History Family Disease History: Diabetes: Brother (liver Ca, CKD), Heart Disease: Father , Mother (ill descript GI illness), Brother, CA: Brother, Other: Mother Review of Systems Findings/Remarks: denies fevers, chills, changes in vision/ hearing/ mood, CP, SOB, abdominal pain , nausea, vomiting, constipation, diarrhea, dysuria, muscle/ joint pain. He notes B foot numbness. Physical Exam Vital Signs: Vital Signs Temperature 98.6 F 08/05/17 10:00 Pulse Rate 83 08/05/17 10:00 Respiratory Rate 18 08/05/17 10:00 Blood Pressure 117/57 08/05/17 10:00 O2 Sat by Pulse Oximetry (%) 92 L 08/05/17 10:00 Musculoskeletal: Yes: Other (General: calm elderly M lying in bed NAD , AAO x3 HEENT: NCAT EOMI OP clear N/M: B shoulder flexion to 130 degrees, 4+/5 BUE, 4/5 B HF/ KE then 4+/5 BLE; Pinprick Intact BUE/ BLE, diffusely hyporeflexic BUE/ BLE Extremities: no BLE pitting edema, no B calf tenderness) Labs: CBC, BMP 08/05/17 05:35 08/05/17 05:35 Assessment/Plan Impression: 1) Deficits mobility/ ADLs 2) Deconditioning 3) Gait abnormality 4) hx DM c/b DKA now resolved, with likely diabetic neuropathy 5) Tachycardia with hx HTN, HLD, heart murmur 6) hx bronchitis c/b PNA 7) Sepsis 8) Anemia 9) SHANTA on CKD 10) hx GIB 06/2017 11) OA 12) Underweight 13) Dysphagia 14) Up to date flu shot/ pneumovax Recommendations: 1) PT for stretching strengthening ROM functional mobility 2) Falls, safety precautions 3) Cardiopulmonary precautions: breathing techniques, energy conservation, endurance 4) Diabetic precautions 5) Recommend ST consult for dysphagia 6) DVT ppx: off AC due to recent GIB 7) Skin protection: float heels, frequent turning 8) Denies constipation on current bowel regimen 9) Smoking cessation information at discharge 10) Nutrition consult for underweight 11) Discharge planning: depending on progress, he may benefit from short- stay inpatient rehabilitation versus able to return home with service. He and his are amenable to inpatient rehab if needed. Thank you for this referral.
--- NOTE | 2017-08-05 14:19 | PN ---
Progress Note (short form) - Note Progress Note: PULMONARY Denies shortness of breath but feels weak and dizzy with sitting up. Last Vital Signs Temp Pulse Resp BP Pulse Ox 98.6 F 83 18 117/57 92 L 08/05/17 10:00 08/05/17 10:00 08/05/17 10:00 08/05/17 10:00 08/05/17 10:00 Intake & Output 08/02/17 08/03/17 08/04/17 08/05/17 23:59 23:59 23:59 23:59 Intake Total 1532 2610 42182 75 Output Total 1025 1900 650 800 Balance 507 710 43580 -725 Weight 51.165 kg 50.349 kg Gen: mildly tachypneic with exertion Heart: RRR Lung: basilar rales Abd: soft, nontender Ext: no edema CBC, BMP 08/05/17 05:35 08/05/17 05:35 Active Medications Albuterol Sulfate (Ventolin 0.083% Nebulizer Soln -) 1 amp NEB Q4H PRN PRN Reason: SHORT OF BREATH/WHEEZING Atorvastatin Calcium (Lipitor -) 10 mg PO HS [facility] Last Admin: 08/04/17 21:34 Dose: 10 mg Chlorhexidine Gluconate (Hibiclens For Decolonization -) 1 applic TP [facility] Last Admin: 08/04/17 21:48 Dose: Not Given Diltiazem HCl (Cardizem -) 60 mg PO Q6HPO [facility] Last Admin: 08/05/17 05:47 Dose: 60 mg Ferrous Sulfate (Feosol -) 325 mg PO DAILY [facility] Last Admin: 08/05/17 10:20 Dose: 325 mg Piperacillin/Tazobactam/Dextrose (Zosyn 2.25gm Ivpb (Premix)) 2.25 gm in 50 mls @ 100 mls/hr IVPB Q8H-IV [facility] PRN Reason: Protocol Last Admin: 08/05/17 10:20 Dose: 100 mls/hr Insulin Aspart (Novolog Vial Sliding Scale -) 1 vial SQ ACHS [facility] PRN Reason: Protocol Last Admin: 08/05/17 11:40 Dose: Not Given Insulin Detemir (Levemir Vial) 8 units SQ [facility] Last Admin: 08/04/17 21:45 Dose: 8 units Lactobacillus Acidophilus (Bacid -) 1 tab PO DAILY [facility] Last Admin: 08/05/17 10:20 Dose: 1 tab Mupirocin (Bactroban Ointment (For Decolonization) -) 1 applic NS BID [facility] Stop: 08/07/17 09:59 Last Admin: 08/05/17 10:20 Dose: Not Given Oseltamivir Phosphate (Tamiflu -) 30 mg PO DAILY [facility] Stop: 08/08/17 10:44 Last Admin: 08/05/17 10:20 Dose: 30 mg Timolol Maleate (Timoptic 0.5%) 1 drop OU DAILY [facility] Last Admin: 08/05/17 10:20 Dose: 1 drop A/P Pneumonia Sepsis resolved SVT CKD HTN Hyperlipidemia Anemia - continue antibiotics, empiric tamiflu - inhaled bronchodilators - o2 to keep Spo2 >905 - PO as tolerated - will need outpt f/u of chest imaging - rehab/PT - DVT prophylaxis
--- NOTE | 2017-08-05 14:33 | PN ---
Progress Note, Physician Chief Complaint: The patient seen in Telemetry. Feeling "the same". No chest pain. No fever. Maintains good urine output. - Current Medication List Current Medications: Active Medications Albuterol Sulfate (Ventolin 0.083% Nebulizer Soln -) 1 amp NEB Q4H PRN PRN Reason: SHORT OF BREATH/WHEEZING Atorvastatin Calcium (Lipitor -) 10 mg PO HS [facility] Last Admin: 08/04/17 21:34 Dose: 10 mg Chlorhexidine Gluconate (Hibiclens For Decolonization -) 1 applic TP HS [facility] Last Admin: 08/04/17 21:48 Dose: Not Given Diltiazem HCl (Cardizem -) 60 mg PO Q6HPO [facility] Last Admin: 08/05/17 05:47 Dose: 60 mg Ferrous Sulfate (Feosol -) 325 mg PO DAILY [facility] Last Admin: 08/05/17 10:20 Dose: 325 mg Piperacillin/Tazobactam/Dextrose (Zosyn 2.25gm Ivpb (Premix)) 2.25 gm in 50 mls @ 100 mls/hr IVPB Q8H-IV [facility] PRN Reason: Protocol Last Admin: 08/05/17 10:20 Dose: 100 mls/hr Insulin Aspart (Novolog Vial Sliding Scale -) 1 vial SQ ACHS [facility] PRN Reason: Protocol Last Admin: 08/05/17 11:40 Dose: Not Given Insulin Detemir (Levemir Vial) 8 units SQ HS [facility] Last Admin: 08/04/17 21:45 Dose: 8 units Lactobacillus Acidophilus (Bacid -) 1 tab PO DAILY [facility] Last Admin: 08/05/17 10:20 Dose: 1 tab Mupirocin (Bactroban Ointment (For Decolonization) -) 1 applic NS BID [facility] Stop: 08/07/17 09:59 Last Admin: 08/05/17 10:20 Dose: Not Given Oseltamivir Phosphate (Tamiflu -) 30 mg PO DAILY [facility] Stop: 08/08/17 10:44 Last Admin: 08/05/17 10:20 Dose: 30 mg Timolol Maleate (Timoptic 0.5%) 1 drop OU DAILY [facility] Last Admin: 08/05/17 10:20 Dose: 1 drop - Objective Vital Signs: Vital Signs Temperature 98.6 F 08/05/17 10:00 Pulse Rate 83 08/05/17 10:00 Respiratory Rate 18 08/05/17 10:00 Blood Pressure 117/57 08/05/17 10:00 O2 Sat by Pulse Oximetry (%) 92 L 08/05/17 10:00 Constitutional: Yes: Anxious, Pallor Eyes: Yes: Conjunctiva Clear HENT: Yes: Normocephalic Neck: Yes: Trachea Midline Cardiovascular: Yes: S1, S2 Respiratory: Yes: Diminished, Rhonchi Gastrointestinal: Yes: Normal Bowel Sounds, Soft Neurological: Yes: Alert, Oriented Psychiatric: Yes: Alert, Oriented Labs: CBC, BMP 08/05/17 05:35 08/05/17 05:35 INR, PTT INR 1.11 (0.82-1.09) 08/04/17 05:35 Problem List - Problems (1) SHANTA (acute kidney injury) Code(s): N17.9 - ACUTE KIDNEY FAILURE, UNSPECIFIED (2) Anemia Code(s): D64.9 - ANEMIA, UNSPECIFIED Qualifiers: Other causes of anemia: acute posthemorrhagic (3) DKA (diabetic ketoacidoses) Code(s): E13.10 - OTH DIABETES MELLITUS WITH KETOACIDOSIS WITHOUT COMA Qualifiers: Diabetes mellitus type: type 2 Diabetes mellitus complication detail: without coma Qualified Code(s): E11.10 - Type 2 diabetes mellitus with ketoacidosis without coma (4) Sepsis Code(s): A41.9 - SEPSIS, UNSPECIFIED ORGANISM (5) CKD (chronic kidney disease) stage 3, GFR 30-59 ml/min Code(s): N18.3 - CHRONIC KIDNEY DISEASE, STAGE 3 (MODERATE) (6) Diabetes mellitus Code(s): E11.9 - TYPE 2 DIABETES MELLITUS WITHOUT COMPLICATIONS Qualifiers: Diabetes mellitus type: type 2 Diabetes mellitus complication status: with kidney complications Diabetes mellitus complication detail: with chronic kidney disease Diabetes mellitus snf insulin use: without snf use (7) Hyperlipidemia Code(s): E78.5 - HYPERLIPIDEMIA, UNSPECIFIED (8) Hypertension Code(s): I10 - ESSENTIAL (PRIMARY) HYPERTENSION Qualifiers: Hypertension type: essential hypertension Qualified Code(s): I10 - Essential (primary) hypertension Assessment/Plan 76 year old gentleman with PMhx of CKD Stage 3 (baseline Cr ~1.4), Hypertension , DM who presented to the hospital with complaints of fatigue and anorexia and found to have DKA and SHANTA with Cr of 2.9. #Acute Kidney Injury Renal function improving toward baseline. Off IV fluids. 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 Baseline Cr ~1.4 Likely etiology is diabetic nephropathy. DKA. Now resolved as anion gap is closed Anemia. Hgb 9.8 post transfusion. . Will follow with you. Danielle Hood MD
[2017-08-05] MEDS: ATORVASTATIN CA 10 MG TABLET (FP) PO SCH (22:13)
[2017-08-05] MEDS: INSULIN DETEMIR 100 UNITS/ML MDV SQ SCH (22:14)
[2017-08-06] MEDS: PIPERACILLIN/TAZOB 2.25 GM 2.25 GM/50 ML BAG IVPB SCH ×3 (01:13→17:19)
[2017-08-06] MEDS: dilTIAZem HCL 60 MG TABLET (FP) PO SCH ×3 (05:24→17:19)
[2017-08-06] MEDS: INSULIN SLIDING SCALE (NOVOLOG) 1 VIAL SQ SCH ×4 (06:05→21:53)
[2017-08-06 07:30] LABS: HEMATOCRIT 31.8 % (35.4-49); HEMOGLOBIN 10.6 GM/dL (11.7-16.9); MCH 29.7 pg (25.7-33.7); MCHC 33.3 g/dl (32.0-35.9); MEAN CELL VOLUME 89.3 fl (80-96); MEAN PLT VOLUME 7.8 fl (7.5-11.1); PLATELET COUNT 401 K/MM3 (134-434); RBC 3.56 M/mm3 (4.00-5.60); RDW 14.9 % (11.9-15.9); WHITE BLOOD COUNT 14.6 K/mm3 (4.0-10.0)
[2017-08-06 07:52] LABS: ANION GAP 8 (8-16); BLOOD UREA NITROGEN 37 mg/dL (7-18); CALCIUM 8.3 mg/dL (8.5-10.1); CHLORIDE 113 mmol/L (98-107); CO2 29 mmol/L (21-32); CREATININE 1.8 mg/dL (0.7-1.3); GLUCOSE,RANDOM 73 mg/dL (74-106); MAGNESIUM 1.6 mg/dL (1.8-2.4); PHOSPHOROUS 3.4 mg/dL (2.5-4.9); POTASSIUM 3.7 mmol/L (3.5-5.1); SODIUM 150 mmol/L (136-145)
--- NOTE | 2017-08-06 09:05 | PN ---
Progress Note (short form) - Note Progress Note: Denies any complaints Improving apetite Vital Signs Period Temp Pulse Resp BP Sys/Sy Pulse Ox Last 24 Hr 97.9 F-98.7 F 74-83 16-18 116-142/54-63 92-97 PE: Awake ,alert Neck: Supple, No JVD HEENT: EOMI Lungs: coarse breath sounds Abd: Benign CVS: S1S2 Ext: No edema Neuro: No focal deficit CMP Sodium 150 mmol/L (136-145) H 08/06/17 07:14 Potassium 3.7 mmol/L (3.5-5.1) 08/06/17 07:14 Chloride 113 mmol/L (98-107) H 08/06/17 07:14 Carbon Dioxide 29 mmol/L (21-32) 08/06/17 07:14 Anion Gap 8 (8-16) 08/06/17 07:14 BUN 37 mg/dL (7-18) H 08/06/17 07:14 Creatinine 1.8 mg/dL (0.7-1.3) H 08/06/17 07:14 Creat Clearance w eGFR 29.09 (>60) 08/03/17 05:00 POC Glucometer 99 UNITS (80-120) 08/06/17 05:27 Random Glucose 73 mg/dL (74-106) L D 08/06/17 07:14 Hemoglobin A1c % 7.1 % (4.8-6.0) H 08/02/17 07:00 Lactic Acid 1.6 mmol/L (0.0-2.0) 08/02/17 07:00 Calcium 8.3 mg/dL (8.5-10.1) L 08/06/17 07:14 Phosphorus 3.4 mg/dL (2.5-4.9) D 08/06/17 07:14 Magnesium 1.6 mg/dL (1.8-2.4) L 08/06/17 07:14 Iron 11 ug/dL (38-169) L 08/03/17 05:00 TIBC 225 ug/dL (250-450) L 08/03/17 05:00 Iron Saturation 5 % (15-55) L 08/03/17 05:00 Ferritin 85.737 ng/ml (16.4-293.9) 08/03/17 05:00 Total Bilirubin 0.3 mg/dL (0.2-1.0) D 08/03/17 05:00 AST 11 U/L (15-37) L 08/03/17 05:00 ALT 10 U/L (12-78) L 08/03/17 05:00 Alkaline Phosphatase 88 U/L (45-117) 08/03/17 05:00 Creatine Kinase 41 IU/L (39-308) 08/01/17 21:40 Troponin I 0.03 ng/ml (0.00-0.05) D 08/01/17 21:40 B-Natriuretic Peptide 2491.06 pg/ml (5-450) H 08/01/17 21:40 Total Protein 5.1 g/dl (6.4-8.2) L 08/03/17 05:00 Albumin 2.2 g/dl (3.4-5.0) L 08/03/17 05:00 Current Medications Generic Name Dose Route Start Last Admin Trade Name Freq PRN Reason Stop Dose Admin Albuterol Sulfate 1 amp 08/03/17 11:16 Ventolin 0.083% Nebulizer Soln - NEB Q4H PRN SHORT OF BREATH/WHEEZING Atorvastatin Calcium 10 mg 08/02/17 22:00 08/05/17 22:13 Lipitor - PO 10 mg HS [facility] Administration Diltiazem HCl 60 mg 08/03/17 12:00 08/06/17 05:24 Cardizem - PO 60 mg Q6HPO [facility] Administration Ferrous Sulfate 325 mg 08/02/17 10:00 08/05/17 10:20 Feosol - PO 325 mg DAILY [facility] Administration Piperacillin/Tazobactam/Dextrose 2.25 gm in 50 mls @ 100 mls/hr 08/03/17 16: 00 08/06/17 01:13 Zosyn 2.25gm Ivpb (Premix) IVPB 100 mls/hr Q8H-IV [facility] Administration Protocol Insulin Aspart 1 vial 08/03/17 22:00 08/06/17 06:05 Novolog Vial Sliding Scale - SQ Not Given ACHS [facility] Protocol Insulin Detemir 6 units 08/05/17 22:00 08/05/17 22:14 Levemir Vial SQ 6 units HS [facility] Administration Lactobacillus Acidophilus 1 tab 08/02/17 10:45 08/05/17 10:20 Bacid - PO 1 tab DAILY [facility] Administration Oseltamivir Phosphate 30 mg 08/03/17 10:45 08/05/17 10:20 Tamiflu - PO 08/08/17 10:44 30 mg DAILY [facility] Administration Timolol Maleate 1 drop 08/02/17 10:00 08/05/17 10:20 Timoptic 0.5% OU 1 drop DAILY [facility] Administration AP: T2DM with Hyperglycemia ?DKA SHANTA COPD Anemia Mild acidosis resolved. Cr 1.8 today Acetone trace positive Levemir 6 units daily at Novolog SS coverage BGM QACHS and at 3 a.m. Electrolyte replacement as necessary Will need to go home on Insulin as he came in with DKA W/U a outpt to decide if he need to be on Insulin on the technician terminal and repeater Will f/u Problem List - Problems (1) SHANTA (acute kidney injury) Code(s): N17.9 - ACUTE KIDNEY FAILURE, UNSPECIFIED (2) DKA (diabetic ketoacidoses) Code(s): E13.10 - OTH DIABETES MELLITUS WITH KETOACIDOSIS WITHOUT COMA Qualifiers: Diabetes mellitus type: type 2 Diabetes mellitus complication detail: without coma Qualified Code(s): E11.10 - Type 2 diabetes mellitus with ketoacidosis without coma (3) Diabetes mellitus Code(s): E11.9 - TYPE 2 DIABETES MELLITUS WITHOUT COMPLICATIONS Qualifiers: Diabetes mellitus type: type 2 Diabetes mellitus complication status: with kidney complications Diabetes mellitus complication detail: with chronic kidney disease Diabetes mellitus shelter insulin use: without technician terminal and repeater use
--- NOTE | 2017-08-06 09:27 | PN ---
Progress Note (short form) - Note Progress Note: Dr. Phillips to document today. Much more alert and aware.
[2017-08-06] MEDS ORDERED: PT OWN MED DRAWER 7, Y5N ONE ×2 (09:56→17:13)
[2017-08-06] MEDS: FERROUS SO4 325 MG TABLET (FP) PO SCH (10:09)
[2017-08-06] MEDS: LACTOBACILLUS ACIDOPHILUS 1 EACH TAB (FP) PO SCH (10:09)
[2017-08-06] MEDS: OSELTAMIVIR PHOSPHATE 30 MG CAPSULE PO SCH (10:09)
[2017-08-06] MEDS: TIMOLOL 0.5% OPHTHALMIC SOL 5 ML BOTTLE OU SCH (10:09)
--- NOTE | 2017-08-06 10:52 | PN ---
Progress Note (short form) - Note Progress Note: s: no cp sob palps dizzy; mild n/v this AM o: Vital Signs Period Temp Pulse Resp BP Sys/Sy Pulse Ox Last 24 Hr 97.9 F-98.7 F 74-79 16-18 116-142/54-63 97-97 NAD, cachectic, calm JVD flat, neck supple ctab nl effort rrr nl s1, s2 2/6 sys murmur at apex + bs soft nt nd. no le e/c/c aaox3 no jaundice, diaphoresis Current Medications Generic Name Dose Route Start Last Admin Trade Name Freq PRN Reason Stop Dose Admin Albuterol Sulfate 1 amp 08/03/17 11:16 Ventolin 0.083% Nebulizer Soln - NEB Q4H PRN SHORT OF BREATH/WHEEZING Atorvastatin Calcium 10 mg 08/02/17 22:00 08/05/17 22:13 Lipitor - PO 10 mg HS [facility] Administration Diltiazem HCl 60 mg 08/03/17 12:00 08/06/17 05:24 Cardizem - PO 60 mg Q6HPO [facility] Administration Ferrous Sulfate 325 mg 08/02/17 10:00 08/06/17 10:09 Feosol - PO 325 mg DAILY [facility] Administration Piperacillin/Tazobactam/Dextrose 2.25 gm in 50 mls @ 100 mls/hr 08/03/17 16: 00 08/06/17 10:09 Zosyn 2.25gm Ivpb (Premix) IVPB 100 mls/hr Q8H-IV [facility] Administration Protocol Insulin Aspart 1 vial 08/03/17 22:00 08/06/17 06:05 Novolog Vial Sliding Scale - SQ Not Given ACHS [facility] Protocol Insulin Detemir 6 units 08/05/17 22:00 08/05/17 22:14 Levemir Vial SQ 6 units HS [facility] Administration Lactobacillus Acidophilus 1 tab 08/02/17 10:45 08/06/17 10:09 Bacid - PO 1 tab DAILY [facility] Administration Oseltamivir Phosphate 30 mg 08/03/17 10:45 08/06/17 10:09 Tamiflu - PO 08/08/17 10:44 30 mg DAILY [facility] Administration Timolol Maleate 1 drop 08/02/17 10:00 08/06/17 10:09 Timoptic 0.5% OU 1 drop DAILY [facility] Administration CBC, BMP 08/06/17 07:14 08/06/17 07:14 EKG aflutter with variable block, [address]-t wave ab tele: sr chest ct: RUL RML and bilateral Lower lobe patchy infiltrates c/w pna. asc aorta 4.5 cm. over distended stomach echo 06/2017: mod lvh. nl lv fn. nl rv size/fn. 1+ lae. mod-sev mac with mod ms. 1+ mr. nl rvsp. 1+ ao dilation A/P 76 yo with pmhx of htn, hl, pad, cva (no residual deficits), copd, dm, mgus, esthesioneuroblastoma treated with radiation therapy, chronic anemia recently worsened s/p recent GIB last month who p/w sob/weakness and noted to be in DKA with pna, hospital course now complicated by episode of SVT. SVT - self-limited episode in setting of recovering pna/dka. monitor for recurrence on tele - preserved EF. started dilt 60 mg po q6h for suppression, will change to long acting now. Patient with lvh and mod MS will likely not tolerate prolonged rapid HR's. - atach vs. atypical flutter with h/o prior CVA (details of etiology/work up at that time unknown). patient with h/o recent gib and significant anemia. discussed with pmd, not thought to be safe for AC or ASA at this time. htn -stable cva/pad - con't statin. not currently candidate for asa due to recent gib and anemia. resume if/when safe. mild asc ao dilation - cont bp control dc tele
[2017-08-06 11:56] LABS: PLATELET ESTIMATE ADEQUATE
--- NOTE | 2017-08-06 12:31 | CONSULT ---
Admitting History and Physical - Primary Care Physician PCP: Dae Phillips - Admission History of Present Illness: 76 y/o male admitted with SOB, cough, general malaise, very high glucose. Uncontrolled Diabetes Hospital Acquired Pneumonia Medical hx includes: COPD, GI bleed, diverticulitis, HLD, CVA, umbilical hernia , Type II DM for > 40 years, HTN, sinus cancer with polypectomy/ esthesioneuroblastoma treated with radiation therapy 2015, chronic anemia recently worsened s/p recent GIB last month with recent admission for GI bleed 07/22-07/25/bilateral toe amputations A/P Pneumonia Sepsis resolved SVT CKD HTN Hyperlipidemia Anemia Pt reports onset of dysphagia a few days ago, with solids sticking in his throat and coughing intermittently on liquids. Tongue is BLACK coated, following intake of chocolate Glucerna. Asked staff to provide oral care. Persistent coating noted-r/o Candidiasis? 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 Lt toe amput (old) tonsillect), Tonsillectomy (Lt toe amp (old)) - Smoking History Smoking history: Current every day smoker Have you smoked in the past 12 months: Yes Aproximately how many cigarettes per day: 15 - Alcohol/Substance Use Hx Alcohol Use: No History of Substance Use: reports: None - Social History ADL: Independent (with [place]) History of Recent Travel: No History - Admission Reason For Visit: UNCONTROLLED DIABETIC MELITUS,HOSPITAL- - Diagnostics X-ray: Report Reviewed CT Scan: Report Reviewed - General Mental Status: Alert and Oriented, Awake and Alert, Able to Follow Commands Attention: Intact Ability to Follow Directions: Good Head/Neck Control: WFL - Hearing Hearing: Normal Speech Evaluation - Communication Primary Language: UPPER SORBIAN Communication: Yes: Within Normal Limits Oral Expression Ability: Yes: No Impairment - Speech Production Able to Make Needs Known: Yes: WNL Intelligibility: Yes: WNL - Speech Characteristics Voice Loudness: Normal Voice Pitch: Yes: Normal Voice Phonatory-based Quality: Yes: Normal Speech Pattern: Normal Speech Clarity: < 100% Nasal Resonance: Normal Articulation: Yes: Precise Rate of Speech: Intact - Language/Verbal Expression Able to Respond to Simple Queries: Yes: WNL Able to Communicate Wants and Needs: Yes: WNL Functional Communication Status: Yes: WNL - Swallow Evaluation/Bedside Assessment Current Nutritional Intake: Regular, Thin Liquids Oral Secretions: Yes: WFL, Tongue Coated (Black coating after Cliff Glucerna.) Dentition: Yes: Missing Teeth Facial Symmetry at Rest: Symmetrical Facial Symmetry on Retraction: Symmetrical Sensation: Normal Against Resistance Opening: Normal Against Resistance Closing: Normal Pucker Lips: Normal Smile: Normal Lingual Movement: Normal, Symmetric Lingual Speed of Movement: Normal Lingual Movement Strgth Against Opposition: Normal Lingual Movement Characteristics: Normal Velopharyngeal Movement: Normal Laryngeal Elevation: WFL Laryngeal Movement: Able to Palpate Rate of Intake: WFL Bolus Size: WFL Labial Seal: WFL Oral Prep Time: WFL A-P Transit: WFL Timing of Swallow: Delayed Coughing/Throat Clear: No Change in Voice: No Recommendations - Speech Evaluation, Impression/Plan Impression: Pt c/o dysphagia, onset last week, with solids sticking in pharynx and coughing on liquids.Persistent black tongue coating noted after mouth care-r /o Candidiasis - Dysphagia Impressions/Plan Dysphagia Impressions: Ongoing Evaluation *Silent aspiration: cannot be R/O at bedside Recommendations: MBS w Esophagus, Other (r/o thrush)
--- NOTE | 2017-08-06 12:52 | PN ---
Progress Note, Physician Chief Complaint: Mr Chen says he is feeling better, however says he has pain and difficulty swallowing today. No cp, sob, n/v. - Current Medication List Current Medications: Active Medications Albuterol Sulfate (Ventolin 0.083% Nebulizer Soln -) 1 amp NEB Q4H PRN PRN Reason: SHORT OF BREATH/WHEEZING Atorvastatin Calcium (Lipitor -) 10 mg PO HS [facility] Last Admin: 08/05/17 22:13 Dose: 10 mg Diltiazem HCl (Cardizem -) 60 mg PO Q6HPO [facility] Stop: 08/06/17 23:00 Last Admin: 08/06/17 11:46 Dose: 60 mg Diltiazem HCl (Cardizem Cd -) 240 mg PO DAILY [facility] Ferrous Sulfate (Feosol -) 325 mg PO DAILY [facility] Last Admin: 08/06/17 10:09 Dose: 325 mg Piperacillin/Tazobactam/Dextrose (Zosyn 2.25gm Ivpb (Premix)) 2.25 gm in 50 mls @ 100 mls/hr IVPB Q8H-IV [facility] PRN Reason: Protocol Last Admin: 08/06/17 10:09 Dose: 100 mls/hr Insulin Aspart (Novolog Vial Sliding Scale -) 1 vial SQ ACHS [facility] PRN Reason: Protocol Last Admin: 08/06/17 11:39 Dose: 2 units Insulin Detemir (Levemir Vial) 6 units SQ HS [facility] Last Admin: 08/05/17 22:14 Dose: 6 units Lactobacillus Acidophilus (Bacid -) 1 tab PO DAILY [facility] Last Admin: 08/06/17 10:09 Dose: 1 tab Oseltamivir Phosphate (Tamiflu -) 30 mg PO DAILY [facility] Stop: 08/08/17 10:44 Last Admin: 08/06/17 10:09 Dose: 30 mg Timolol Maleate (Timoptic 0.5%) 1 drop OU DAILY [facility] Last Admin: 08/06/17 10:09 Dose: 1 drop - Objective Vital Signs: Vital Signs Temperature 36.6 C 08/06/17 05:20 Pulse Rate 76 08/06/17 05:20 Respiratory Rate 18 08/06/17 09:00 Blood Pressure 125/54 08/06/17 05:20 O2 Sat by Pulse Oximetry (%) 97 08/06/17 09:00 Constitutional: Yes: Well Nourished, No Distress, Calm Cardiovascular: Yes: Regular Rate and Rhythm. No: Gallop, Murmur, Rub Respiratory: Yes: Regular, CTA Bilaterally. No: Rales, Rhonchi, Wheezes Gastrointestinal: Yes: Normal Bowel Sounds, Soft. No: Distention, Tenderness Extremities: Yes: WNL Edema: No Labs: CBC, BMP 08/06/17 07:14 08/06/17 07:14 INR, PTT INR 1.11 (0.82-1.09) 08/04/17 05:35 Problem List - Problems (1) DKA (diabetic ketoacidoses) Code(s): E13.10 - OTH DIABETES MELLITUS WITH KETOACIDOSIS WITHOUT COMA Qualifiers: Diabetes mellitus type: type 2 Diabetes mellitus complication detail: without coma Qualified Code(s): E11.10 - Type 2 diabetes mellitus with ketoacidosis without coma (2) Hospital-acquired pneumonia Code(s): J18.9 - PNEUMONIA, UNSPECIFIED ORGANISM (3) Sepsis Code(s): A41.9 - SEPSIS, UNSPECIFIED ORGANISM (4) SHANTA (acute kidney injury) Code(s): N17.9 - ACUTE KIDNEY FAILURE, UNSPECIFIED (5) CKD (chronic kidney disease) Code(s): N18.9 - CHRONIC KIDNEY DISEASE, UNSPECIFIED (6) Diabetes mellitus Code(s): E11.9 - TYPE 2 DIABETES MELLITUS WITHOUT COMPLICATIONS Qualifiers: Diabetes mellitus type: type 2 Diabetes mellitus complication status: with kidney complications Diabetes mellitus complication detail: with chronic kidney disease Diabetes mellitus fdc insulin use: without fdc use (7) Hyperlipidemia Code(s): E78.5 - HYPERLIPIDEMIA, UNSPECIFIED (8) Hypertension Code(s): I10 - ESSENTIAL (PRIMARY) HYPERTENSION Qualifiers: Hypertension type: essential hypertension Qualified Code(s): I10 - Essential (primary) hypertension (9) Anemia Code(s): D64.9 - ANEMIA, UNSPECIFIED Qualifiers: Other causes of anemia: acute posthemorrhagic (10) Thrush of mouth and esophagus Code(s): B37.81 - CANDIDAL ESOPHAGITIS; B37.0 - CANDIDAL STOMATITIS Assessment/Plan (1) DKA (diabetic ketoacidoses) Assessment/Plan: -resolved Code(s): E13.10 - OTH DIABETES MELLITUS WITH KETOACIDOSIS WITHOUT COMA Qualifiers: Diabetes mellitus type: type 2 Diabetes mellitus complication detail: without coma Qualified Code(s): E11.10 - Type 2 diabetes mellitus with ketoacidosis without coma (2) Hospital-acquired pneumonia Assessment/Plan: -ID following -continue zosyn and tamiflu -day 4/5 for tamiflu Code(s): J18.9 - PNEUMONIA, UNSPECIFIED ORGANISM (3) Sepsis Assessment/Plan -leukocytosis continues to improve -continue antibiotics as above Code(s): A41.9 - SEPSIS, UNSPECIFIED ORGANISM (4) SHANTA (acute kidney injury) Assessment/Plan: -appears at baseline Code(s): N17.9 - ACUTE KIDNEY FAILURE, UNSPECIFIED (5) CKD (chronic kidney disease) Assessment/Plan: -at baseline Code(s): N18.9 - CHRONIC KIDNEY DISEASE, UNSPECIFIED (6) Diabetes mellitus Assessment/Plan: -diabetic diet -levemir and SSI Code(s): E11.9 - TYPE 2 DIABETES MELLITUS WITHOUT COMPLICATIONS Qualifiers: Diabetes mellitus type: type 2 Diabetes mellitus complication status: with kidney complications Diabetes mellitus complication detail: with chronic kidney disease Diabetes mellitus fdc insulin use: without termite treater helper use (7) Hyperlipidemia Assessment/Plan: -continue lipitor Code(s): E78.5 - HYPERLIPIDEMIA, UNSPECIFIED (8) Hypertension Assessment/Plan: -holding lisinopril secondary to renal function -monitor for elevation Code(s): I10 - ESSENTIAL (PRIMARY) HYPERTENSION Qualifiers: Hypertension type: essential hypertension Qualified Code(s): I10 - Essential (primary) hypertension (10) Tachycardia -case d/w cardiology -started on diltiazem -improved (11) Anemia -s/p transfusion -improving -continue protonix (12) Thrush -s/p MBS as complained of difficulty swallowing -MBS normal -start nystain swish and swallow
[2017-08-06] MEDS ORDERED: MAGNESIUM OXIDE 400 MG TABLET (FP) PO ONE ×2 (14:40→15:30)
--- NOTE | 2017-08-06 15:55 | PN ---
Progress Note, Physician History of Present Illness: patient stable no complaints had speech and swallow studies done patient wants to walk now wbc still higher trending down - Current Medication List Current Medications: Active Medications Albuterol Sulfate (Ventolin 0.083% Nebulizer Soln -) 1 amp NEB Q4H PRN PRN Reason: SHORT OF BREATH/WHEEZING Atorvastatin Calcium (Lipitor -) 10 mg PO HS [facility] Last Admin: 08/05/17 22:13 Dose: 10 mg Diltiazem HCl (Cardizem -) 60 mg PO Q6HPO [facility] Stop: 08/06/17 23:00 Last Admin: 08/06/17 11:46 Dose: 60 mg Diltiazem HCl (Cardizem Cd -) 240 mg PO DAILY [facility] Ferrous Sulfate (Feosol -) 325 mg PO DAILY [facility] Last Admin: 08/06/17 10:09 Dose: 325 mg Piperacillin/Tazobactam/Dextrose (Zosyn 2.25gm Ivpb (Premix)) 2.25 gm in 50 mls @ 100 mls/hr IVPB Q8H-IV [facility] PRN Reason: Protocol Last Admin: 08/06/17 10:09 Dose: 100 mls/hr Insulin Aspart (Novolog Vial Sliding Scale -) 1 vial SQ ACHS [facility] PRN Reason: Protocol Last Admin: 08/06/17 11:39 Dose: 2 units Insulin Detemir (Levemir Vial) 6 units SQ HS [facility] Last Admin: 08/05/17 22:14 Dose: 6 units Lactobacillus Acidophilus (Bacid -) 1 tab PO DAILY [facility] Last Admin: 08/06/17 10:09 Dose: 1 tab Nystatin (Nystatin Oral Suspension -) 500,000 units PO Q6HPO [facility] Oseltamivir Phosphate (Tamiflu -) 30 mg PO DAILY [facility] Stop: 08/08/17 10:44 Last Admin: 08/06/17 10:09 Dose: 30 mg Timolol Maleate (Timoptic 0.5%) 1 drop OU DAILY [facility] Last Admin: 08/06/17 10:09 Dose: 1 drop - Objective Vital Signs: Vital Signs Temperature 97.8 F 08/06/17 15:48 Pulse Rate 77 08/06/17 15:48 Respiratory Rate 16 08/06/17 15:48 Blood Pressure 130/63 08/06/17 15:48 O2 Sat by Pulse Oximetry (%) 97 02/09/18 09:00 Constitutional: Yes: No Distress, Calm Cardiovascular: Yes: Regular Rate and Rhythm Respiratory: Yes: Regular, CTA Bilaterally Gastrointestinal: Yes: Normal Bowel Sounds, Soft Musculoskeletal: Yes: WNL Extremities: Yes: WNL Neurological: Yes: Alert Psychiatric: Yes: Alert Labs: CBC, BMP 08/06/17 07:14 08/06/17 07:14 INR, PTT INR 1.11 (0.82-1.09) 08/04/17 05:35 Assessment/Plan Problem List - Problems (1) DKA (diabetic ketoacidoses) Assessment/Plan: Code(s): E13.10 - OTH DIABETES MELLITUS WITH KETOACIDOSIS WITHOUT COMA Qualifiers: Diabetes mellitus type: type 2 Diabetes mellitus complication detail: without coma Qualified Code(s): E11.10 - Type 2 diabetes mellitus with ketoacidosis without coma (2) Sepsis Assessment/Plan: Code(s): A41.9 - SEPSIS, UNSPECIFIED ORGANISM (3) Hospital-acquired pneumonia Assessment/Plan: Code(s): J18.9 - PNEUMONIA, UNSPECIFIED ORGANISM (4) Hyperkalemia Assessment/Plan: Code(s): E87.5 - HYPERKALEMIA (5) CKD (chronic kidney disease) Assessment/Plan: Code(s): N18.9 - CHRONIC KIDNEY DISEASE, UNSPECIFIED (6) Hypertension Assessment/Plan: Code(s): I10 - ESSENTIAL (PRIMARY) HYPERTENSION Qualifiers: Hypertension type: essential hypertension Qualified Code(s): I10 - Essential (primary) hypertension (7) Hyperlipidemia Assessment/Plan: Code(s): E78.5 - HYPERLIPIDEMIA, UNSPECIFIED patients wbc has increased inspite of ceftriaxone plan continue abx continue to monitor wbc incentive anastasiya rest as per the team wbc trending down
[2017-08-06] MEDS: NYSTATIN 500,000 UNITS/5 ML SUSPENSION PO SCH ×2 (17:19→23:49)
[2017-08-06] MEDS: ATORVASTATIN CA 10 MG TABLET (FP) PO SCH (21:52)
[2017-08-06] MEDS: INSULIN DETEMIR 100 UNITS/ML MDV SQ SCH (21:54)
[2017-08-07] MEDS: PIPERACILLIN/TAZOB 2.25 GM 2.25 GM/50 ML BAG IVPB SCH ×3 (02:50→17:04)
[2017-08-07] MEDS: NYSTATIN 500,000 UNITS/5 ML SUSPENSION PO SCH ×3 (05:59→17:04)
[2017-08-07] MEDS: INSULIN SLIDING SCALE (NOVOLOG) 1 VIAL SQ SCH ×4 (06:01→21:44)
[2017-08-07 07:42] LABS: HEMATOCRIT 32.3 % (35.4-49); HEMOGLOBIN 10.3 GM/dL (11.7-16.9); MCHC 31.9 g/dl (32.0-35.9); MEAN PLT VOLUME 7.9 fl (7.5-11.1); PLATELET COUNT 411 K/MM3 (134-434); RBC 3.55 M/mm3 (4.00-5.60); RDW 15.2 % (11.9-15.9); WHITE BLOOD COUNT 11.6 K/mm3 (4.0-10.0)
[2017-08-07 08:39] LABS: ANION GAP 8 (8-16); BLOOD UREA NITROGEN 38 mg/dL (7-18); CALCIUM 8.4 mg/dL (8.5-10.1); CHLORIDE 112 mmol/L (98-107); CO2 30 mmol/L (21-32); GLUCOSE,RANDOM 95 mg/dL (74-106); SODIUM 150 mmol/L (136-145)
[2017-08-07 08:40] LABS: CREATININE 1.8 mg/dL (0.7-1.3); PHOSPHOROUS 3.6 mg/dL (2.5-4.9)
[2017-08-07 09:03] LABS: PLATELET ESTIMATE ADEQUATE
[2017-08-07] MEDS: FERROUS SO4 325 MG TABLET (FP) PO SCH (09:50)
[2017-08-07] MEDS: OSELTAMIVIR PHOSPHATE 30 MG CAPSULE PO SCH (09:50)
[2017-08-07] MEDS: TIMOLOL 0.5% OPHTHALMIC SOL 5 ML BOTTLE OU SCH (09:51)
[2017-08-07] MEDS: LACTOBACILLUS ACIDOPHILUS 1 EACH TAB (FP) PO SCH (09:51)
--- NOTE | 2017-08-07 11:36 | PN ---
Progress Note, Physician History of Present Illness: PULMONARY ALERT,FEELING BETTER,LESS DYSPNEIC - Current Medication List Current Medications: Active Medications Albuterol Sulfate (Ventolin 0.083% Nebulizer Soln -) 1 amp NEB Q4H PRN PRN Reason: SHORT OF BREATH/WHEEZING Atorvastatin Calcium (Lipitor -) 10 mg PO HS [facility] Last Admin: 08/06/17 21:52 Dose: 10 mg Diltiazem HCl (Cardizem Cd -) 240 mg PO DAILY [facility] Last Admin: 08/07/17 09:50 Dose: 240 mg Ferrous Sulfate (Feosol -) 325 mg PO DAILY [facility] Last Admin: 08/07/17 09:50 Dose: 325 mg Piperacillin/Tazobactam/Dextrose (Zosyn 2.25gm Ivpb (Premix)) 2.25 gm in 50 mls @ 100 mls/hr IVPB Q8H-IV [facility] PRN Reason: Protocol Last Admin: 08/07/17 09:50 Dose: 100 mls/hr Insulin Aspart (Novolog Vial Sliding Scale -) 1 vial SQ ACHS [facility] PRN Reason: Protocol Last Admin: 08/07/17 06:01 Dose: Not Given Insulin Detemir (Levemir Vial) 6 units SQ HS [facility] Last Admin: 08/06/17 21:54 Dose: 6 units Lactobacillus Acidophilus (Bacid -) 1 tab PO DAILY [facility] Last Admin: 08/07/17 09:51 Dose: 1 tab Nystatin (Nystatin Oral Suspension -) 500,000 units PO Q6HPO [facility] Last Admin: 08/07/17 05:59 Dose: 500,000 units Oseltamivir Phosphate (Tamiflu -) 30 mg PO DAILY [facility] Stop: 08/08/17 10:44 Last Admin: 08/07/17 09:50 Dose: 30 mg Timolol Maleate (Timoptic 0.5%) 1 drop OU DAILY [facility] Last Admin: 08/07/17 09:51 Dose: 1 drop - Objective Vital Signs: Vital Signs Temperature 97.4 F L 08/07/17 05:00 Pulse Rate 71 08/07/17 05:00 Respiratory Rate 20 08/07/17 05:00 Blood Pressure 155/70 08/07/17 05:00 O2 Sat by Pulse Oximetry (%) 100 08/07/17 05:00 Constitutional: Yes: Calm, Thin Eyes: Yes: WNL HENT: Yes: WNL Neck: Yes: WNL Cardiovascular: Yes: Regular Rate and Rhythm, S1, S2 Respiratory: Yes: Rhonchi (FEW RHONCHI) Gastrointestinal: Yes: Normal Bowel Sounds, Soft Extremities: Yes: WNL Edema: No Labs: CBC, BMP 08/07/17 06:30 08/07/17 06:30 INR, PTT INR 1.11 (0.82-1.09) 08/04/17 05:35 Assessment/Plan Problem List - Problems (1) DKA (diabetic ketoacidoses) Assessment/Plan: Code(s): E13.10 - OTH DIABETES MELLITUS WITH KETOACIDOSIS WITHOUT COMA Qualifiers: Diabetes mellitus type: type 2 Diabetes mellitus complication detail: without coma Qualified Code(s): E11.10 - Type 2 diabetes mellitus with ketoacidosis without coma (2) Sepsis Assessment/Plan: Code(s): A41.9 - SEPSIS, UNSPECIFIED ORGANISM (3) Hospital-acquired pneumonia Assessment/Plan: Code(s): J18.9 - PNEUMONIA, UNSPECIFIED ORGANISM (4) Hyperkalemia Assessment/Plan: Code(s): E87.5 - HYPERKALEMIA (5) CKD (chronic kidney disease) Assessment/Plan: Code(s): N18.9 - CHRONIC KIDNEY DISEASE, UNSPECIFIED (6) Hypertension Assessment/Plan: Code(s): I10 - ESSENTIAL (PRIMARY) HYPERTENSION Qualifiers: Hypertension type: essential hypertension Qualified Code(s): I10 - Essential (primary) hypertension (7) Hyperlipidemia Assessment/Plan: Code(s): E78.5 - HYPERLIPIDEMIA, UNSPECIFIED (8) DVT prophylaxis Assessment/Plan: Code(s): [id number] - 9 ANEMIA Assessment/Plan Episode of SVT (?) ADINA : chronic changes noted on CT from 2007 Rocephin daily monitor lytes,renal fubction monitor h+h S[employer]: Do not clinically suspect M TB O2 as needed Follow BGM VTE prophylaxis Transfuse Chest x-ray am DR RENDON
--- NOTE | 2017-08-07 13:00 | PN ---
Progress Note, Physician Chief Complaint: The patient seen in Telemetry.No chest pain, Less short of breath. Maintains good urine output. - Current Medication List Current Medications: Active Medications Albuterol Sulfate (Ventolin 0.083% Nebulizer Soln -) 1 amp NEB Q4H PRN PRN Reason: SHORT OF BREATH/WHEEZING Atorvastatin Calcium (Lipitor -) 10 mg PO HS [facility] Last Admin: 08/06/17 21:52 Dose: 10 mg Diltiazem HCl (Cardizem Cd -) 240 mg PO DAILY [facility] Last Admin: 08/07/17 09:50 Dose: 240 mg Ferrous Sulfate (Feosol -) 325 mg PO DAILY [facility] Last Admin: 08/07/17 09:50 Dose: 325 mg Piperacillin/Tazobactam/Dextrose (Zosyn 2.25gm Ivpb (Premix)) 2.25 gm in 50 mls @ 100 mls/hr IVPB Q8H-IV [facility] PRN Reason: Protocol Last Admin: 08/07/17 09:50 Dose: 100 mls/hr Insulin Aspart (Novolog Vial Sliding Scale -) 1 vial SQ ACHS [facility] PRN Reason: Protocol Last Admin: 08/07/17 12:03 Dose: 5 units Insulin Detemir (Levemir Vial) 6 units SQ HS [facility] Last Admin: 08/06/17 21:54 Dose: 6 units Lactobacillus Acidophilus (Bacid -) 1 tab PO DAILY [facility] Last Admin: 08/07/17 09:51 Dose: 1 tab Nystatin (Nystatin Oral Suspension -) 500,000 units PO Q6HPO [facility] Last Admin: 08/07/17 12:03 Dose: 500,000 units Oseltamivir Phosphate (Tamiflu -) 30 mg PO DAILY [facility] Stop: 08/08/17 10:44 Last Admin: 08/07/17 09:50 Dose: 30 mg Timolol Maleate (Timoptic 0.5%) 1 drop OU DAILY [facility] Last Admin: 08/07/17 09:51 Dose: 1 drop - Objective Vital Signs: Vital Signs Temperature 97.4 F L 08/07/17 05:00 Pulse Rate 71 08/07/17 05:00 Respiratory Rate 20 08/07/17 05:00 Blood Pressure 155/70 08/07/17 05:00 O2 Sat by Pulse Oximetry (%) 100 08/07/17 05:00 Constitutional: Yes: No Distress, Anxious HENT: Yes: Atraumatic Neck: Yes: Trachea Midline Cardiovascular: Yes: S1, S2 Respiratory: Yes: CTA Bilaterally, Rhonchi Gastrointestinal: Yes: Normal Bowel Sounds, Soft Genitourinary: No: CVA Tenderness - Left, CVA Tenderness - Right Labs: CBC, BMP 08/07/17 06:30 08/07/17 06:30 INR, PTT INR 1.11 (0.82-1.09) 08/04/17 05:35 Problem List - Problems (1) SHANTA (acute kidney injury) Code(s): N17.9 - ACUTE KIDNEY FAILURE, UNSPECIFIED (2) Anemia Code(s): D64.9 - ANEMIA, UNSPECIFIED Qualifiers: Other causes of anemia: acute posthemorrhagic (3) DKA (diabetic ketoacidoses) Code(s): E13.10 - OTH DIABETES MELLITUS WITH KETOACIDOSIS WITHOUT COMA Qualifiers: Diabetes mellitus type: type 2 Diabetes mellitus complication detail: without coma Qualified Code(s): E11.10 - Type 2 diabetes mellitus with ketoacidosis without coma (4) Sepsis Code(s): A41.9 - SEPSIS, UNSPECIFIED ORGANISM (5) CKD (chronic kidney disease) stage 3, GFR 30-59 ml/min Code(s): N18.3 - CHRONIC KIDNEY DISEASE, STAGE 3 (MODERATE) (6) Diabetes mellitus Code(s): E11.9 - TYPE 2 DIABETES MELLITUS WITHOUT COMPLICATIONS Qualifiers: Diabetes mellitus type: type 2 Diabetes mellitus complication status: with kidney complications Diabetes mellitus complication detail: with chronic kidney disease Diabetes mellitus termite control servicer insulin use: without jail use (7) Hyperlipidemia Code(s): E78.5 - HYPERLIPIDEMIA, UNSPECIFIED (8) Hypertension Code(s): I10 - ESSENTIAL (PRIMARY) HYPERTENSION Qualifiers: Hypertension type: essential hypertension Qualified Code(s): I10 - Essential (primary) hypertension Assessment/Plan 76 year old gentleman with PMhx of CKD Stage 3 (baseline Cr ~1.4), Hypertension , DM who presented to the hospital with complaints of fatigue and anorexia and found to have DKA and SHANTA with Cr of 2.9. Acute Kidney Injury Renal function stable. Though abouve his baseline. Tendency for Hypernatremia...may reflect free water loss. Some improvement noted in the last few days. Will watch. 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 Baseline Cr ~1.4 Likely etiology is diabetic nephropathy. Anemia. Last Hgb 10.3. Had had PRBC Transfusions. Will monitor the renal functions withyou. Danielle Hood MD
--- NOTE | 2017-08-07 14:00 | PN ---
Progress Note, Physician History of Present Illness: stable no new issues wbc nearly normal - Current Medication List Current Medications: Active Medications Albuterol Sulfate (Ventolin 0.083% Nebulizer Soln -) 1 amp NEB Q4H PRN PRN Reason: SHORT OF BREATH/WHEEZING Atorvastatin Calcium (Lipitor -) 10 mg PO HS [facility] Last Admin: 08/06/17 21:52 Dose: 10 mg Diltiazem HCl (Cardizem Cd -) 240 mg PO DAILY [facility] Last Admin: 08/07/17 09:50 Dose: 240 mg Ferrous Sulfate (Feosol -) 325 mg PO DAILY [facility] Last Admin: 08/07/17 09:50 Dose: 325 mg Piperacillin/Tazobactam/Dextrose (Zosyn 2.25gm Ivpb (Premix)) 2.25 gm in 50 mls @ 100 mls/hr IVPB Q8H-IV [facility] PRN Reason: Protocol Last Admin: 08/07/17 09:50 Dose: 100 mls/hr Insulin Aspart (Novolog Vial Sliding Scale -) 1 vial SQ ACHS [facility] PRN Reason: Protocol Last Admin: 08/07/17 12:03 Dose: 5 units Insulin Detemir (Levemir Vial) 6 units SQ HS [facility] Last Admin: 08/06/17 21:54 Dose: 6 units Lactobacillus Acidophilus (Bacid -) 1 tab PO DAILY [facility] Last Admin: 08/07/17 09:51 Dose: 1 tab Nystatin (Nystatin Oral Suspension -) 500,000 units PO Q6HPO [facility] Last Admin: 08/07/17 12:03 Dose: 500,000 units Oseltamivir Phosphate (Tamiflu -) 30 mg PO DAILY [facility] Stop: 08/08/17 10:44 Last Admin: 08/07/17 09:50 Dose: 30 mg Timolol Maleate (Timoptic 0.5%) 1 drop OU DAILY [facility] Last Admin: 08/07/17 09:51 Dose: 1 drop - Objective Vital Signs: Vital Signs Temperature 97.9 F 08/07/17 10:00 Pulse Rate 84 08/07/17 10:00 Respiratory Rate 18 08/07/17 10:00 Blood Pressure 141/64 08/07/17 10:00 O2 Sat by Pulse Oximetry (%) 92 L 08/07/17 10:00 Constitutional: Yes: No Distress, Calm Cardiovascular: Yes: Regular Rate and Rhythm Respiratory: Yes: Regular, CTA Bilaterally Gastrointestinal: Yes: Normal Bowel Sounds, Soft Musculoskeletal: Yes: WNL Extremities: Yes: WNL Neurological: Yes: Alert, Oriented Psychiatric: Yes: Alert, Oriented Labs: CBC, BMP 08/07/17 06:30 08/07/17 06:30 INR, PTT INR 1.11 (0.82-1.09) 08/04/17 05:35 Assessment/Plan Problem List - Problems (1) DKA (diabetic ketoacidoses) Assessment/Plan: Code(s): E13.10 - OTH DIABETES MELLITUS WITH KETOACIDOSIS WITHOUT COMA Qualifiers: Diabetes mellitus type: type 2 Diabetes mellitus complication detail: without coma Qualified Code(s): E11.10 - Type 2 diabetes mellitus with ketoacidosis without coma (2) Sepsis Assessment/Plan: Code(s): A41.9 - SEPSIS, UNSPECIFIED ORGANISM (3) Hospital-acquired pneumonia Assessment/Plan: Code(s): J18.9 - PNEUMONIA, UNSPECIFIED ORGANISM (4) Hyperkalemia Assessment/Plan: Code(s): E87.5 - HYPERKALEMIA (5) CKD (chronic kidney disease) Assessment/Plan: Code(s): N18.9 - CHRONIC KIDNEY DISEASE, UNSPECIFIED (6) Hypertension Assessment/Plan: Code(s): I10 - ESSENTIAL (PRIMARY) HYPERTENSION Qualifiers: Hypertension type: essential hypertension Qualified Code(s): I10 - Essential (primary) hypertension (7) Hyperlipidemia Assessment/Plan: Code(s): E78.5 - HYPERLIPIDEMIA, UNSPECIFIED patients wbc has increased inspite of ceftriaxone plan continue abx continue to monitor wbc incentive anastasiya rest as per the team physio therapy
--- NOTE | 2017-08-07 16:01 | PN ---
Progress Note (short form) - Note Progress Note: CC: SVT s: no cp sob palps. + dizziness upon standing yesterday, did not stand today. tele d/c'd. still with difficulty swallowing 2/2 thrush. o: Current Medications Albuterol Sulfate (Ventolin 0.083% Nebulizer Soln -) 1 amp NEB Q4H PRN PRN Reason: SHORT OF BREATH/WHEEZING Atorvastatin Calcium (Lipitor -) 10 mg PO HS [facility] Last Admin: 08/06/17 21:52 Dose: 10 mg Diltiazem HCl (Cardizem Cd -) 240 mg PO DAILY [facility] Last Admin: 08/07/17 09:50 Dose: 240 mg Ferrous Sulfate (Feosol -) 325 mg PO DAILY [facility] Last Admin: 08/07/17 09:50 Dose: 325 mg Piperacillin/Tazobactam/Dextrose (Zosyn 2.25gm Ivpb (Premix)) 2.25 gm in 50 mls @ 100 mls/hr IVPB Q8H-IV [facility] PRN Reason: Protocol Last Admin: 08/07/17 09:50 Dose: 100 mls/hr Insulin Aspart (Novolog Vial Sliding Scale -) 1 vial SQ ACHS [facility] PRN Reason: Protocol Last Admin: 08/07/17 12:03 Dose: 5 units Insulin Detemir (Levemir Vial) 6 units SQ HS [facility] Last Admin: 08/06/17 21:54 Dose: 6 units Lactobacillus Acidophilus (Bacid -) 1 tab PO DAILY [facility] Last Admin: 08/07/17 09:51 Dose: 1 tab Nystatin (Nystatin Oral Suspension -) 500,000 units PO Q6HPO [facility] Last Admin: 08/07/17 12:03 Dose: 500,000 units Oseltamivir Phosphate (Tamiflu -) 30 mg PO DAILY [facility] Stop: 08/08/17 10:44 Last Admin: 08/07/17 09:50 Dose: 30 mg Timolol Maleate (Timoptic 0.5%) 1 drop OU DAILY [facility] Last Admin: 08/07/17 09:51 Dose: 1 drop Vital Signs - 24 hr 08/06/17 08/06/17 08/07/17 20:22 21:00 01:00 Temperature 97.6 F 98.5 F Pulse Rate 86 73 78 Respiratory 20 20 Rate Blood Pressure 148/62 133/62 O2 Sat by Pulse 96 100 Oximetry (%) 08/07/17 08/07/17 08/07/17 05:00 10:00 14:00 Temperature 97.4 F L 97.9 F 98.6 F Pulse Rate 71 84 72 Respiratory 20 18 20 Rate Blood Pressure 155/70 141/64 138/69 O2 Sat by Pulse 100 92 L Oximetry (%) Intake & Output 08/05/17 08/06/17 08/07/17 08/08/17 07:59 07:59 07:59 07:59 Intake Total 450 195 840 Output Total 1450 500 Balance -1000 -305 840 NAD, cachectic, calm black coating on tongue. JVD flat, neck supple rales at left base. nl effort rrr nl s1, s2 2/6 sys murmur at apex + bs soft nt nd. no le e/c/c aaox3 no jaundice, diaphoresis CBC, BMP 08/07/17 06:30 08/07/17 06:30 EKG aflutter with variable block, [address]-t wave ab prior tele: sr chest ct: RUL RML and bilateral Lower lobe patchy infiltrates c/w pna. asc aorta 4.5 cm. over distended stomach echo 06/2017: mod lvh. nl lv fn. nl rv size/fn. 1+ lae. mod-sev mac with mod ms. 1+ mr. nl rvsp. 1+ ao dilation A/P 76 yo with pmhx of htn, hl, pad, cva (no residual deficits), copd, dm, mgus, esthesioneuroblastoma treated with radiation therapy, chronic anemia recently worsened s/p recent GIB last month who p/w sob/weakness and noted to be in DKA with pna, hospital course now complicated by episode of SVT. SVT - self-limited episode in setting of recovering pna/dka. no recurrence on tele - preserved EF. started dilt 60 mg po q6h for suppression, changed to long acting. Patient with lvh and mod MS will likely not tolerate prolonged rapid HR 's. - atach vs. atypical flutter with h/o prior CVA (details of etiology/work up at that time unknown). patient with h/o recent gib and significant anemia. discussed with pmd, not thought to be safe for AC or ASA at this time. If anemia stabilizes and patient becomes candidate for AC or ASA can consider outpatient monitoring to assess for recurrence. htn -stable. patient is a diabetic and had been on lisinopril as outpatient. currently on hold due to steve. renal following. cva/pad - con't statin. not currently candidate for asa due to recent gib and anemia. resume if/when safe. mild asc ao dilation - cont bp control
--- NOTE | 2017-08-07 20:11 | PN ---
Progress Note, Physician Chief Complaint: Feels improved no c/o chest pain or worsening SOB - Current Medication List Current Medications: Active Medications Albuterol Sulfate (Ventolin 0.083% Nebulizer Soln -) 1 amp NEB Q4H PRN PRN Reason: SHORT OF BREATH/WHEEZING Atorvastatin Calcium (Lipitor -) 10 mg PO HS [facility] Last Admin: 08/06/17 21:52 Dose: 10 mg Diltiazem HCl (Cardizem Cd -) 240 mg PO DAILY [facility] Last Admin: 08/07/17 09:50 Dose: 240 mg Ferrous Sulfate (Feosol -) 325 mg PO DAILY [facility] Last Admin: 08/07/17 09:50 Dose: 325 mg Piperacillin/Tazobactam/Dextrose (Zosyn 2.25gm Ivpb (Premix)) 2.25 gm in 50 mls @ 100 mls/hr IVPB Q8H-IV [facility] PRN Reason: Protocol Last Admin: 08/07/17 17:04 Dose: 100 mls/hr Insulin Aspart (Novolog Vial Sliding Scale -) 1 vial SQ ACHS [facility] PRN Reason: Protocol Last Admin: 08/07/17 17:00 Dose: 5 units Insulin Detemir (Levemir Vial) 6 units SQ HS [facility] Last Admin: 08/06/17 21:54 Dose: 6 units Lactobacillus Acidophilus (Bacid -) 1 tab PO DAILY [facility] Last Admin: 08/07/17 09:51 Dose: 1 tab Nystatin (Nystatin Oral Suspension -) 500,000 units PO Q6HPO [facility] Last Admin: 08/07/17 17:04 Dose: 500,000 units Oseltamivir Phosphate (Tamiflu -) 30 mg PO DAILY [facility] Stop: 08/08/17 10:44 Last Admin: 08/07/17 09:50 Dose: 30 mg Timolol Maleate (Timoptic 0.5%) 1 drop OU DAILY [facility] Last Admin: 08/07/17 09:51 Dose: 1 drop - Objective Vital Signs: Vital Signs Temperature 98.3 F 08/07/17 18:00 Pulse Rate 77 08/07/17 18:00 Respiratory Rate 22 08/07/17 18:00 Blood Pressure 127/58 08/07/17 18:00 O2 Sat by Pulse Oximetry (%) 92 L 08/07/17 10:00 Elderly Frail man not in acute distress HEENT: Mm moist, no thrush NECK: No JVd No Bruit, Trachea, central ' CHEST: Minimal crepts diffuse CVS; S1S2 R no m/g/r ABD: No distention, non tender Bs + EXT; No edema feet, no calf tenderness 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 Non focal Labs: CBC, BMP 08/07/17 06:30 08/07/17 06:30 INR, PTT INR 1.11 (0.82-1.09) 08/04/17 05:35 Problem List - Problems (1) DKA (diabetic ketoacidoses) Assessment/Plan: admitted with uncontrolled T2DM with AG responded to abx and insulin therapy Code(s): E13.10 - OTH DIABETES MELLITUS WITH KETOACIDOSIS WITHOUT COMA Qualifiers: Diabetes mellitus type: type 2 Diabetes mellitus complication detail: without coma Qualified Code(s): E11.10 - Type 2 diabetes mellitus with ketoacidosis without coma (2) Hospital-acquired pneumonia Assessment/Plan: On Zosyn cont current abx will, so far cultures are negative will discuss with ID for duration and oral switch of abx. Code(s): J18.9 - PNEUMONIA, UNSPECIFIED ORGANISM (3) SHANTA (acute kidney injury) Assessment/Plan: Resolving monitor BMP Code(s): N17.9 - ACUTE KIDNEY FAILURE, UNSPECIFIED (4) CKD (chronic kidney disease) stage 3, GFR 30-59 ml/min Assessment/Plan: At base line CKD stage 3 F/U BMP Code(s): N18.3 - CHRONIC KIDNEY DISEASE, STAGE 3 (MODERATE) (5) Hypernatremia Assessment/Plan: Improving encourage Po Hydration Code(s): E87.0 - HYPEROSMOLALITY AND HYPERNATREMIA (6) Oral thrush Assessment/Plan: On nystatin Code(s): B37.0 - CANDIDAL STOMATITIS
[2017-08-07] MEDS ORDERED: INSULIN (NOVOLOG) ASPART 100 UNITS/ML 10ML VIAL ONE (21:32)
[2017-08-07] MEDS: SODIUM CHLORIDE 0.45% 1,000 ML IV SCH (21:41)
[2017-08-07] MEDS: ATORVASTATIN CA 10 MG TABLET (FP) PO SCH (21:41)
[2017-08-07] MEDS: INSULIN DETEMIR 100 UNITS/ML MDV SQ SCH (21:43)
[2017-08-08] MEDS ORDERED: PT OWN MED DRAWER 7, Y5N ONE ×2 (01:14→09:07)
[2017-08-08] MEDS: NYSTATIN 500,000 UNITS/5 ML SUSPENSION PO SCH ×5 (01:16→23:23)
[2017-08-08] MEDS: PIPERACILLIN/TAZOB 2.25 GM 2.25 GM/50 ML BAG IVPB SCH ×3 (01:16→17:07)
[2017-08-08] MEDS: INSULIN SLIDING SCALE (NOVOLOG) 1 VIAL SQ SCH ×4 (06:22→22:08)
[2017-08-08 08:01] LABS: HEMATOCRIT 29.9 % (35.4-49); HEMOGLOBIN 9.8 GM/dL (11.7-16.9); MCH 29.4 pg (25.7-33.7); MCHC 32.7 g/dl (32.0-35.9); MEAN PLT VOLUME 7.9 fl (7.5-11.1); PLATELET COUNT 358 K/MM3 (134-434); RBC 3.33 M/mm3 (4.00-5.60); RDW 14.7 % (11.9-15.9); WHITE BLOOD COUNT 12.7 K/mm3 (4.0-10.0)
[2017-08-08 08:19] LABS: CHLORIDE 107 mmol/L (98-107); POTASSIUM 4.1 mmol/L (3.5-5.1); SODIUM 144 mmol/L (136-145)
[2017-08-08 08:28] LABS: ANION GAP 7 (8-16); BLOOD UREA NITROGEN 31 mg/dL (7-18); CALCIUM 7.7 mg/dL (8.5-10.1); CO2 30 mmol/L (21-32); CREATININE 1.5 mg/dL (0.7-1.3); GLUCOSE,RANDOM 73 mg/dL (74-106)
[2017-08-08 08:37] LABS: PLATELET ESTIMATE ADEQUATE
[2017-08-08] MEDS: TIMOLOL 0.5% OPHTHALMIC SOL 5 ML BOTTLE OU SCH (09:12)
[2017-08-08] MEDS: LACTOBACILLUS ACIDOPHILUS 1 EACH TAB (FP) PO SCH (09:12)
[2017-08-08] MEDS: FERROUS SO4 325 MG TABLET (FP) PO SCH (09:13)
[2017-08-08] MEDS: OSELTAMIVIR PHOSPHATE 30 MG CAPSULE PO SCH (09:13)
--- NOTE | 2017-08-08 11:59 | PN ---
Progress Note, Physician Chief Complaint: Patient Feels improved no c/o chest pain or worsening SOB - Current Medication List Current Medications: Active Medications Albuterol Sulfate (Ventolin 0.083% Nebulizer Soln -) 1 amp NEB Q4H PRN PRN Reason: SHORT OF BREATH/WHEEZING Atorvastatin Calcium (Lipitor -) 10 mg PO HS [facility] Last Admin: 08/07/17 21:41 Dose: 10 mg Diltiazem HCl (Cardizem Cd -) 240 mg PO DAILY [facility] Last Admin: 08/08/17 09:13 Dose: 240 mg Ferrous Sulfate (Feosol -) 325 mg PO DAILY [facility] Last Admin: 08/08/17 09:13 Dose: 325 mg Piperacillin/Tazobactam/Dextrose (Zosyn 2.25gm Ivpb (Premix)) 2.25 gm in 50 mls @ 100 mls/hr IVPB Q8H-IV [facility] PRN Reason: Protocol Last Admin: 08/08/17 09:13 Dose: 100 mls/hr Sodium Chloride (1/2 Normal Saline) 1,000 mls @ 75 mls/hr IV ASDIR [facility] Last Admin: 08/07/17 21:41 Dose: 75 mls/hr Insulin Aspart (Novolog Vial Sliding Scale -) 1 vial SQ ACHS [facility] PRN Reason: Protocol Last Admin: 08/08/17 11:47 Dose: 3 units Insulin Detemir (Levemir Vial) 6 units SQ HS [facility] Last Admin: 08/07/17 21:43 Dose: 6 units Lactobacillus Acidophilus (Bacid -) 1 tab PO DAILY [facility] Last Admin: 08/08/17 09:12 Dose: 1 tab Nystatin (Nystatin Oral Suspension -) 500,000 units PO Q6HPO [facility] Last Admin: 08/08/17 06:22 Dose: 500,000 units Timolol Maleate (Timoptic 0.5%) 1 drop OU DAILY [facility] Last Admin: 08/08/17 09:12 Dose: 1 drop - Objective Vital Signs: Vital Signs Temperature 98.4 F 08/08/17 10:00 Pulse Rate 81 08/08/17 10:00 Respiratory Rate 20 08/08/17 10:00 Blood Pressure 148/72 08/08/17 10:00 O2 Sat by Pulse Oximetry (%) 95 08/08/17 09:00 Elderly Frail man not in acute distress HEENT: Mm moist, no thrush NECK: No JVd No Bruit, Trachea, central ' CHEST: Minimal crepts diffuse CVS; S1S2 R no m/g/r ABD: No distention, non tender Bs + EXT; No edema feet, no calf tenderness 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 Non focal Labs: CBC, BMP 08/08/17 06:30 08/08/17 06:30 INR, PTT INR 1.11 (0.82-1.09) 08/04/17 05:35 Problem List - Problems (1) DKA (diabetic ketoacidoses) Assessment/Plan: admitted with uncontrolled T2DM with AG responded to abx and insulin therapy Code(s): E13.10 - OTH DIABETES MELLITUS WITH KETOACIDOSIS WITHOUT COMA Qualifiers: Diabetes mellitus type: type 2 Diabetes mellitus complication detail: without coma Qualified Code(s): E11.10 - Type 2 diabetes mellitus with ketoacidosis without coma (2) Hospital-acquired pneumonia Assessment/Plan: On Zosyn cont current abx will, so far cultures are negative will discuss with ID for duration and oral switch of abx. Code(s): J18.9 - PNEUMONIA, UNSPECIFIED ORGANISM (3) SHANTA (acute kidney injury) Assessment/Plan: Resolving monitor BMP Code(s): N17.9 - ACUTE KIDNEY FAILURE, UNSPECIFIED (4) CKD (chronic kidney disease) stage 3, GFR 30-59 ml/min Assessment/Plan: At base line CKD stage 3 F/U BMP Code(s): N18.3 - CHRONIC KIDNEY DISEASE, STAGE 3 (MODERATE) (5) Hypernatremia Assessment/Plan: Improving encourage Po Hydration Code(s): E87.0 - HYPEROSMOLALITY AND HYPERNATREMIA
--- NOTE | 2017-08-08 12:02 | PN ---
Progress Note, Physician History of Present Illness: PULMONARY ALERT,NAD,-C/O SOB,-CP,MIN COUGH - Current Medication List Current Medications: Active Medications Albuterol Sulfate (Ventolin 0.083% Nebulizer Soln -) 1 amp NEB Q4H PRN PRN Reason: SHORT OF BREATH/WHEEZING Atorvastatin Calcium (Lipitor -) 10 mg PO HS [facility] Last Admin: 08/07/17 21:41 Dose: 10 mg Diltiazem HCl (Cardizem Cd -) 240 mg PO DAILY [facility] Last Admin: 08/08/17 09:13 Dose: 240 mg Ferrous Sulfate (Feosol -) 325 mg PO DAILY [facility] Last Admin: 08/08/17 09:13 Dose: 325 mg Piperacillin/Tazobactam/Dextrose (Zosyn 2.25gm Ivpb (Premix)) 2.25 gm in 50 mls @ 100 mls/hr IVPB Q8H-IV [facility] PRN Reason: Protocol Last Admin: 08/08/17 09:13 Dose: 100 mls/hr Sodium Chloride (1/2 Normal Saline) 1,000 mls @ 75 mls/hr IV ASDIR [facility] Last Admin: 08/07/17 21:41 Dose: 75 mls/hr Insulin Aspart (Novolog Vial Sliding Scale -) 1 vial SQ ACHS [facility] PRN Reason: Protocol Last Admin: 08/08/17 11:47 Dose: 3 units Insulin Detemir (Levemir Vial) 6 units SQ HS [facility] Last Admin: 08/07/17 21:43 Dose: 6 units Lactobacillus Acidophilus (Bacid -) 1 tab PO DAILY [facility] Last Admin: 08/08/17 09:12 Dose: 1 tab Nystatin (Nystatin Oral Suspension -) 500,000 units PO Q6HPO [facility] Last Admin: 08/08/17 06:22 Dose: 500,000 units Timolol Maleate (Timoptic 0.5%) 1 drop OU DAILY [facility] Last Admin: 08/08/17 09:12 Dose: 1 drop - Objective Vital Signs: Vital Signs Temperature 98.4 F 08/08/17 10:00 Pulse Rate 81 08/08/17 10:00 Respiratory Rate 20 08/08/17 10:00 Blood Pressure 148/72 08/08/17 10:00 O2 Sat by Pulse Oximetry (%) 95 08/08/17 09:00 Constitutional: Yes: Calm, Thin Eyes: Yes: WNL HENT: Yes: WNL Neck: Yes: WNL Cardiovascular: Yes: Regular Rate and Rhythm, S1, S2 Respiratory: Yes: Diminished (CRACKLES LEIDY), Rales Gastrointestinal: Yes: Normal Bowel Sounds, Soft Extremities: Yes: WNL Edema: No Labs: CBC, BMP 08/08/17 06:30 08/08/17 06:30 INR, PTT INR 1.11 (0.82-1.09) 08/04/17 05:35 Assessment/Plan Problem List - Problems (1) DKA (diabetic ketoacidoses) Assessment/Plan: Code(s): E13.10 - OTH DIABETES MELLITUS WITH KETOACIDOSIS WITHOUT COMA Qualifiers: Diabetes mellitus type: type 2 Diabetes mellitus complication detail: without coma Qualified Code(s): E11.10 - Type 2 diabetes mellitus with ketoacidosis without coma (2) Sepsis Assessment/Plan: Code(s): A41.9 - SEPSIS, UNSPECIFIED ORGANISM (3) Hospital-acquired pneumonia Assessment/Plan: Code(s): J18.9 - PNEUMONIA, UNSPECIFIED ORGANISM (4) Hyperkalemia Assessment/Plan: Code(s): E87.5 - HYPERKALEMIA (5) CKD (chronic kidney disease) Assessment/Plan: Code(s): N18.9 - CHRONIC KIDNEY DISEASE, UNSPECIFIED (6) Hypertension Assessment/Plan: Code(s): I10 - ESSENTIAL (PRIMARY) HYPERTENSION Qualifiers: Hypertension type: essential hypertension Qualified Code(s): I10 - Essential (primary) hypertension (7) Hyperlipidemia Assessment/Plan: Code(s): E78.5 - HYPERLIPIDEMIA, UNSPECIFIED (8) DVT prophylaxis Assessment/Plan: Code(s): [id number] - 9 ANEMIA Assessment/Plan Episode of SVT (?) ADINA : chronic changes noted on CT from 2007 monitor lytes,renal fubction monitor h+h [employer]: Do not clinically suspect M TB O2 as needed Follow BGM VTE prophylaxis DR RENDON
--- NOTE | 2017-08-08 12:04 | PN ---
Progress Note, Physician History of Present Illness: patient improving\ patient breathing better no complaints says he wants some physio also mentions something sticking in his throat - Current Medication List Current Medications: Active Medications Albuterol Sulfate (Ventolin 0.083% Nebulizer Soln -) 1 amp NEB Q4H PRN PRN Reason: SHORT OF BREATH/WHEEZING Atorvastatin Calcium (Lipitor -) 10 mg PO HS [facility] Last Admin: 08/07/17 21:41 Dose: 10 mg Diltiazem HCl (Cardizem Cd -) 240 mg PO DAILY [facility] Last Admin: 08/08/17 09:13 Dose: 240 mg Ferrous Sulfate (Feosol -) 325 mg PO DAILY [facility] Last Admin: 08/08/17 09:13 Dose: 325 mg Piperacillin/Tazobactam/Dextrose (Zosyn 2.25gm Ivpb (Premix)) 2.25 gm in 50 mls @ 100 mls/hr IVPB Q8H-IV [facility] PRN Reason: Protocol Last Admin: 08/08/17 09:13 Dose: 100 mls/hr Sodium Chloride (1/2 Normal Saline) 1,000 mls @ 75 mls/hr IV ASDIR [facility] Last Admin: 08/07/17 21:41 Dose: 75 mls/hr Insulin Aspart (Novolog Vial Sliding Scale -) 1 vial SQ ACHS [facility] PRN Reason: Protocol Last Admin: 08/08/17 11:47 Dose: 3 units Insulin Detemir (Levemir Vial) 6 units SQ HS [facility] Last Admin: 08/07/17 21:43 Dose: 6 units Lactobacillus Acidophilus (Bacid -) 1 tab PO DAILY [facility] Last Admin: 08/08/17 09:12 Dose: 1 tab Nystatin (Nystatin Oral Suspension -) 500,000 units PO Q6HPO [facility] Last Admin: 08/08/17 06:22 Dose: 500,000 units Timolol Maleate (Timoptic 0.5%) 1 drop OU DAILY [facility] Last Admin: 08/08/17 09:12 Dose: 1 drop - Objective Vital Signs: Vital Signs Temperature 98.4 F 08/08/17 10:00 Pulse Rate 81 08/08/17 10:00 Respiratory Rate 20 08/08/17 10:00 Blood Pressure 148/72 08/08/17 10:00 O2 Sat by Pulse Oximetry (%) 95 08/08/17 09:00 Constitutional: Yes: No Distress, Calm Cardiovascular: Yes: Regular Rate and Rhythm Respiratory: Yes: Regular, CTA Bilaterally Gastrointestinal: Yes: Normal Bowel Sounds, Soft Musculoskeletal: Yes: WNL Extremities: Yes: WNL Neurological: Yes: Alert, Oriented Psychiatric: Yes: Alert, Oriented Labs: CBC, BMP 08/08/17 06:30 08/08/17 06:30 INR, PTT INR 1.11 (0.82-1.09) 08/04/17 05:35 Assessment/Plan Problem List - Problems (1) DKA (diabetic ketoacidoses) Assessment/Plan: Code(s): E13.10 - OTH DIABETES MELLITUS WITH KETOACIDOSIS WITHOUT COMA Qualifiers: Diabetes mellitus type: type 2 Diabetes mellitus complication detail: without coma Qualified Code(s): E11.10 - Type 2 diabetes mellitus with ketoacidosis without coma (2) Sepsis Assessment/Plan: Code(s): A41.9 - SEPSIS, UNSPECIFIED ORGANISM (3) Hospital-acquired pneumonia Assessment/Plan: Code(s): J18.9 - PNEUMONIA, UNSPECIFIED ORGANISM (4) Hyperkalemia Assessment/Plan: Code(s): E87.5 - HYPERKALEMIA (5) CKD (chronic kidney disease) Assessment/Plan: Code(s): N18.9 - CHRONIC KIDNEY DISEASE, UNSPECIFIED (6) Hypertension Assessment/Plan: Code(s): I10 - ESSENTIAL (PRIMARY) HYPERTENSION Qualifiers: Hypertension type: essential hypertension Qualified Code(s): I10 - Essential (primary) hypertension (7) Hyperlipidemia Assessment/Plan: Code(s): E78.5 - HYPERLIPIDEMIA, UNSPECIFIED plan continue abx monitor wbc consider swallow studies resp support rest as per primary team
--- NOTE | 2017-08-08 15:17 | PN ---
Progress Note, Physician Chief Complaint: The patient seen in Telemetry.No chest pain, Less short of breath. Maintains good urine output. Seems comfortable. - Current Medication List Current Medications: Active Medications Albuterol Sulfate (Ventolin 0.083% Nebulizer Soln -) 1 amp NEB Q4H PRN PRN Reason: SHORT OF BREATH/WHEEZING Atorvastatin Calcium (Lipitor -) 10 mg PO HS [facility] Last Admin: 08/07/17 21:41 Dose: 10 mg Diltiazem HCl (Cardizem Cd -) 240 mg PO DAILY [facility] Last Admin: 08/08/17 09:13 Dose: 240 mg Ferrous Sulfate (Feosol -) 325 mg PO DAILY [facility] Last Admin: 08/08/17 09:13 Dose: 325 mg Piperacillin/Tazobactam/Dextrose (Zosyn 2.25gm Ivpb (Premix)) 2.25 gm in 50 mls @ 100 mls/hr IVPB Q8H-IV [facility] PRN Reason: Protocol Last Admin: 08/08/17 09:13 Dose: 100 mls/hr Sodium Chloride (1/2 Normal Saline) 1,000 mls @ 75 mls/hr IV ASDIR [facility] Last Admin: 08/07/17 21:41 Dose: 75 mls/hr Insulin Aspart (Novolog Vial Sliding Scale -) 1 vial SQ ACHS [facility] PRN Reason: Protocol Last Admin: 08/08/17 11:47 Dose: 3 units Insulin Detemir (Levemir Vial) 6 units SQ HS [facility] Last Admin: 08/07/17 21:43 Dose: 6 units Lactobacillus Acidophilus (Bacid -) 1 tab PO DAILY [facility] Last Admin: 08/08/17 09:12 Dose: 1 tab Nystatin (Nystatin Oral Suspension -) 500,000 units PO Q6HPO [facility] Last Admin: 08/08/17 12:17 Dose: 500,000 units Timolol Maleate (Timoptic 0.5%) 1 drop OU DAILY [facility] Last Admin: 08/08/17 09:12 Dose: 1 drop - Objective Vital Signs: Vital Signs Temperature 97.3 F L 08/08/17 14:19 Pulse Rate 84 08/08/17 14:19 Respiratory Rate 20 08/08/17 14:19 Blood Pressure 128/78 08/08/17 14:19 O2 Sat by Pulse Oximetry (%) 95 08/08/17 09:00 Constitutional: Yes: No Distress, Anxious, Pallor Eyes: Yes: Conjunctiva Clear Neck: Yes: Trachea Midline Cardiovascular: Yes: S1, S2 Respiratory: Yes: CTA Bilaterally Gastrointestinal: Yes: Normal Bowel Sounds, Abdomen, Obese. No: Ascites Genitourinary: No: CVA Tenderness - Left, CVA Tenderness - Right, Hematuria Labs: CBC, BMP 08/08/17 06:30 08/08/17 06:30 INR, PTT INR 1.11 (0.82-1.09) 08/04/17 05:35 Problem List - Problems (1) SHANTA (acute kidney injury) Code(s): N17.9 - ACUTE KIDNEY FAILURE, UNSPECIFIED (2) Anemia Code(s): D64.9 - ANEMIA, UNSPECIFIED Qualifiers: Other causes of anemia: acute posthemorrhagic (3) DKA (diabetic ketoacidoses) Code(s): E13.10 - OTH DIABETES MELLITUS WITH KETOACIDOSIS WITHOUT COMA Qualifiers: Diabetes mellitus type: type 2 Diabetes mellitus complication detail: without coma Qualified Code(s): E11.10 - Type 2 diabetes mellitus with ketoacidosis without coma (4) Sepsis Code(s): A41.9 - SEPSIS, UNSPECIFIED ORGANISM (5) CKD (chronic kidney disease) stage 3, GFR 30-59 ml/min Code(s): N18.3 - CHRONIC KIDNEY DISEASE, STAGE 3 (MODERATE) (6) Diabetes mellitus Code(s): E11.9 - TYPE 2 DIABETES MELLITUS WITHOUT COMPLICATIONS Qualifiers: Diabetes mellitus type: type 2 Diabetes mellitus complication status: with kidney complications Diabetes mellitus complication detail: with chronic kidney disease 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 Acute Kidney Injury Renal function stable. Though still above his baseline. Improving towards his baselime. Tendency for Hypernatremia...may reflect free water loss. Some improvement noted in the last few days. Will watch. 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 Baseline Cr ~1.4 Likely etiology is diabetic nephropathy. Anemia. Last Hgb 9.8. has had PRBC transfusions. Will watch. Will monitor the renal functions with you. Thank you. Danielle Hood MD
--- NOTE | 2017-08-08 16:00 | PN ---
Progress Note (short form) - Note Progress Note: CC: svt s: no cp palps dizzy; started on IVF last night with improvement in renal function and hypernatremia. no sob. still with poor po intake due to thrush. o: Current Medications Albuterol Sulfate (Ventolin 0.083% Nebulizer Soln -) 1 amp NEB Q4H PRN PRN Reason: SHORT OF BREATH/WHEEZING Atorvastatin Calcium (Lipitor -) 10 mg PO HS [facility] Last Admin: 08/07/17 21:41 Dose: 10 mg Diltiazem HCl (Cardizem Cd -) 240 mg PO DAILY [facility] Last Admin: 08/08/17 09:13 Dose: 240 mg Ferrous Sulfate (Feosol -) 325 mg PO DAILY [facility] Last Admin: 08/08/17 09:13 Dose: 325 mg Piperacillin/Tazobactam/Dextrose (Zosyn 2.25gm Ivpb (Premix)) 2.25 gm in 50 mls @ 100 mls/hr IVPB Q8H-IV [facility] PRN Reason: Protocol Last Admin: 08/08/17 09:13 Dose: 100 mls/hr Sodium Chloride (1/2 Normal Saline) 1,000 mls @ 75 mls/hr IV ASDIR [facility] Last Admin: 08/07/17 21:41 Dose: 75 mls/hr Insulin Aspart (Novolog Vial Sliding Scale -) 1 vial SQ ACHS [facility] PRN Reason: Protocol Last Admin: 08/08/17 11:47 Dose: 3 units Insulin Detemir (Levemir Vial) 6 units SQ HS [facility] Last Admin: 08/07/17 21:43 Dose: 6 units Lactobacillus Acidophilus (Bacid -) 1 tab PO DAILY [facility] Last Admin: 08/08/17 09:12 Dose: 1 tab Nystatin (Nystatin Oral Suspension -) 500,000 units PO Q6HPO [facility] Last Admin: 08/08/17 12:17 Dose: 500,000 units Timolol Maleate (Timoptic 0.5%) 1 drop OU DAILY [facility] Last Admin: 08/08/17 09:12 Dose: 1 drop Vital Signs - 24 hr 08/07/17 08/07/17 08/07/17 18:00 21:00 22:00 Temperature 98.3 F 98.0 F Pulse Rate 77 72 Respiratory 22 20 Rate Blood Pressure 127/58 127/59 O2 Sat by Pulse 92 L Oximetry (%) 08/08/17 08/08/17 08/08/17 05:41 09:00 10:00 Temperature 97.4 F L 98.4 F Pulse Rate 81 81 Respiratory 20 20 Rate Blood Pressure 143/75 148/72 O2 Sat by Pulse 95 Oximetry (%) 08/08/17 14:19 Temperature 97.3 F L Pulse Rate 84 Respiratory 20 Rate Blood Pressure 128/78 O2 Sat by Pulse Oximetry (%) Intake & Output 08/06/17 08/07/17 08/08/17 08/09/17 07:59 07:59 07:59 07:59 Intake Total 195 840 178.8 Output Total 500 1550 Balance -305 840 -1371.2 NAD, cachectic, calm black coating on tongue. JVD flat, neck supple rales at left base. nl effort rrr nl s1, s2 2/6 sys murmur at apex + bs soft nt nd. no le e/c/c aaox3 no jaundice, diaphoresis CBC, BMP 08/08/17 06:30 08/08/17 06:30 Laboratory Tests 08/07/17 06:30 Sodium 150 H Creatinine 1.8 H Magnesium 2.0 D EKG aflutter with variable block, [address]-t wave ab prior tele: sr chest ct: RUL RML and bilateral Lower lobe patchy infiltrates c/w pna. asc aorta 4.5 cm. over distended stomach echo 06/2017: mod lvh. nl lv fn. nl rv size/fn. 1+ lae. mod-sev mac with mod ms. 1+ mr. nl rvsp. 1+ ao dilation A/P 76 yo with pmhx of htn, hl, pad, cva (no residual deficits), copd, dm, mgus, esthesioneuroblastoma treated with radiation therapy, chronic anemia recently worsened s/p recent GIB last month who p/w sob/weakness and noted to be in DKA with pna, hospital course now complicated by episode of SVT. SVT - self-limited episode in setting of recovering pna/dka. no recurrence on tele - preserved EF. started dilt 60 mg po q6h for suppression, changed to long acting. Patient with lvh and mod MS will likely not tolerate prolonged rapid HR 's. - atach vs. atypical flutter with h/o prior CVA (details of etiology/work up at that time unknown). patient with h/o recent gib and significant anemia. discussed with pmd, not thought to be safe for AC or ASA at this time. If anemia stabilizes and patient becomes candidate for AC or ASA can consider outpatient monitoring to assess for recurrence. htn -stable. patient is a diabetic and had been on lisinopril as outpatient. currently on hold due to steve. renal following. cva/pad - con't statin. not currently candidate for asa due to recent gib and anemia. resume if/when safe. mild asc ao dilation - cont bp control
[2017-08-08] MEDS: SODIUM CHLORIDE 0.45% 1,000 ML IV SCH (21:00)
[2017-08-08] MEDS ORDERED: INSULIN (NOVOLOG) ASPART 100 UNITS/ML 10ML VIAL ONE (21:52)
[2017-08-08] MEDS: ATORVASTATIN CA 10 MG TABLET (FP) PO SCH (22:08)
[2017-08-08] MEDS: INSULIN DETEMIR 100 UNITS/ML MDV SQ SCH (22:09)
[2017-08-09] MEDS ORDERED: PT OWN MED DRAWER 7, Y5N ONE (01:53)
[2017-08-09] MEDS: SODIUM CHLORIDE 0.45% 1,000 ML IV SCH ×2 (01:58→22:30)
[2017-08-09] MEDS: PIPERACILLIN/TAZOB 2.25 GM 2.25 GM/50 ML BAG IVPB SCH ×3 (01:58→17:19)
[2017-08-09] MEDS: INSULIN SLIDING SCALE (NOVOLOG) 1 VIAL SQ SCH ×4 (06:49→22:35)
[2017-08-09] MEDS: NYSTATIN 500,000 UNITS/5 ML SUSPENSION PO SCH ×3 (06:49→17:19)
[2017-08-09 06:59] LABS: HEMATOCRIT 29.1 % (35.4-49); HEMOGLOBIN 9.3 GM/dL (11.7-16.9); MCH 29.1 pg (25.7-33.7); MEAN CELL VOLUME 90.7 fl (80-96); MEAN PLT VOLUME 8.1 fl (7.5-11.1); PLATELET COUNT 337 K/MM3 (134-434); RBC 3.21 M/mm3 (4.00-5.60); RDW 14.5 % (11.9-15.9); WHITE BLOOD COUNT 11.3 K/mm3 (4.0-10.0)
[2017-08-09 07:12] LABS: ANION GAP 4 (8-16); BLOOD UREA NITROGEN 30 mg/dL (7-18); CALCIUM 7.9 mg/dL (8.5-10.1); CHLORIDE 102 mmol/L (98-107); CO2 34 mmol/L (21-32); CREATININE 1.6 mg/dL (0.7-1.3); GLUCOSE,RANDOM 146 mg/dL (74-106); POTASSIUM 4.1 mmol/L (3.5-5.1); SODIUM 140 mmol/L (136-145)
--- NOTE | 2017-08-09 08:50 | PN ---
Progress Note, Physician - Current Medication List Current Medications: Active Medications Albuterol Sulfate (Ventolin 0.083% Nebulizer Soln -) 1 amp NEB Q4H PRN PRN Reason: SHORT OF BREATH/WHEEZING Atorvastatin Calcium (Lipitor -) 10 mg PO HS [facility] Last Admin: 08/08/17 22:08 Dose: 10 mg Diltiazem HCl (Cardizem Cd -) 240 mg PO DAILY [facility] Last Admin: 08/08/17 09:13 Dose: 240 mg Ferrous Sulfate (Feosol -) 325 mg PO DAILY [facility] Last Admin: 08/08/17 09:13 Dose: 325 mg Piperacillin/Tazobactam/Dextrose (Zosyn 2.25gm Ivpb (Premix)) 2.25 gm in 50 mls @ 100 mls/hr IVPB Q8H-IV [facility] PRN Reason: Protocol Last Admin: 08/09/17 01:58 Dose: 100 mls/hr Sodium Chloride (1/2 Normal Saline) 1,000 mls @ 75 mls/hr IV ASDIR [facility] Last Admin: 08/09/17 01:58 Dose: 75 mls/hr Insulin Aspart (Novolog Vial Sliding Scale -) 1 vial SQ ACHS [facility] PRN Reason: Protocol Last Admin: 08/09/17 06:49 Dose: 2 units Insulin Detemir (Levemir Vial) 6 units SQ HS [facility] Last Admin: 08/08/17 22:09 Dose: 6 units Lactobacillus Acidophilus (Bacid -) 1 tab PO DAILY [facility] Last Admin: 08/08/17 09:12 Dose: 1 tab Nystatin (Nystatin Oral Suspension -) 500,000 units PO Q6HPO [facility] Last Admin: 08/09/17 06:49 Dose: 500,000 units Timolol Maleate (Timoptic 0.5%) 1 drop OU DAILY [facility] Last Admin: 08/08/17 09:12 Dose: 1 drop - Objective Vital Signs: Vital Signs Temperature 97.8 F 08/09/17 05:44 Pulse Rate 74 08/09/17 05:44 Respiratory Rate 18 08/09/17 05:44 Blood Pressure 125/59 08/09/17 05:44 O2 Sat by Pulse Oximetry (%) 95 08/08/17 21:00 Labs: CBC, BMP 08/09/17 06:37 08/09/17 06:37 INR, PTT INR 1.11 (0.82-1.09) 08/04/17 05:35 Assessment/Plan EKG aflutter with variable block, [address]-t wave ab chest ct: RUL RML and bilateral Lower lobe patchy infiltrates c/w pna. asc aorta 4.5 cm. over distended stomach echo 06/2017: mod lvh. nl lv fn. nl rv size/fn. 1+ lae. mod-sev mac with mod ms. 1+ mr. nl rvsp. 1+ ao dilation A/P 76 yo with pmhx of htn, hl, pad, cva (no residual deficits), copd, dm, mgus, esthesioneuroblastoma treated with radiation therapy, chronic anemia recently worsened s/p recent GIB last month who p/w sob/weakness and noted to be in DKA with pna, hospital course now complicated by episode of SVT. SVT/AFlutter - self-limited episode in setting of recovering pna/dka. no recurrence on tele - preserved EF. started dilt 60 mg po q6h for suppression, changed to long acting. Patient with lvh and mod MS will likely not tolerate prolonged rapid HR 's. - atach vs. atypical flutter with h/o prior CVA (details of etiology/work up at that time unknown). patient with h/o recent gib and significant anemia. discussed with pmd, not thought to be safe for AC or ASA at this time. If anemia stabilizes and patient becomes candidate for AC or ASA can consider outpatient monitoring to assess for recurrence. - needs outpt f/u with cardiology to reassess AC anemia, h/o GIB: - hgb currently stable SHANTA on CKD: - creat back to prior baseline htn -stable. patient is a diabetic and had been on lisinopril as outpatient. currently on hold due to shanta. renal following. cva/pad - con't statin. not currently candidate for asa due to recent gib and anemia. resume if/when safe. mild asc ao dilation - cont bp control
[2017-08-09] MEDS: LACTOBACILLUS ACIDOPHILUS 1 EACH TAB (FP) PO SCH (09:17)
[2017-08-09] MEDS: FERROUS SO4 325 MG TABLET (FP) PO SCH (09:17)
[2017-08-09] MEDS: TIMOLOL 0.5% OPHTHALMIC SOL 5 ML BOTTLE OU SCH (09:18)
[2017-08-09 09:26] LABS: MACROCYTOSIS 1+; OVALOCYTE 1+
--- NOTE | 2017-08-09 09:47 | PN ---
Progress Note (short form) - Note Progress Note: Dr. Phillips to document today.
--- NOTE | 2017-08-09 11:46 | PN ---
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 Pt reports improved swallowing function Tongue is still black. Oral care has been provided with toothette sponge. r/o oral bacteria/fungus? Gentle Mouth care with tooth brush. PMD/ID to evaluate oral cavity/medical management.
--- NOTE | 2017-08-09 13:03 | PN ---
Physical Exam: SUBJECTIVE: Patient seen and examined. He feels weak, but has no other complaints. OBJECTIVE: Vital Signs Period Temp Pulse Resp BP Sys/Sy Pulse Ox Last 24 Hr 97.3 F-98.5 F 74-84 18-20 123-142/59-92 95-98 GENERAL: The patient is awake, alert, and fully oriented, in no acute distress. LUNGS: Breath sounds equal, clear to auscultation bilaterally, no wheezes, no crackles, no accessory muscle use. HEART: Regular rate and rhythm, S1, S2 without murmur, rub or gallop. ABDOMEN: Soft, nontender, nondistended, normoactive bowel sounds, no guarding, no rebound, no hepatosplenomegaly, no masses. EXTREMITIES: 2+ pulses, warm, well-perfused, no edema. Laboratory Results - last 24 hr 08/08/17 08/08/17 08/09/17 16:17 20:42 02:12 WBC RBC Hgb Hct MCV MCH MCHC RDW Plt Count MPV Total Counted Neutrophils % Neutrophils % (Manual) Lymphocytes % Lymphocytes % (Manual) Monocytes % (Manual) Eosinophils % (Manual) Metamyelocytes Polychromasia Macrocytosis Ovalocytes Sodium Potassium Chloride Carbon Dioxide Anion Gap BUN Creatinine POC Glucometer 268 367 248 Random Glucose Calcium Magnesium 08/09/17 08/09/17 08/09/17 05:43 06:37 06:37 WBC 11.3 H RBC 3.21 L Hgb 9.3 L Hct 29.1 L MCV 90.7 MCH 29.1 MCHC 32.0 RDW 14.5 Plt Count 337 MPV 8.1 Total Counted 100 Neutrophils % No Result Required. Neutrophils % (Manual) 88.0 H Lymphocytes % No Result Required. Lymphocytes % (Manual) 5.0 L D Monocytes % (Manual) 4 Eosinophils % (Manual) 1.0 Metamyelocytes 1 Polychromasia 1+ Macrocytosis 1+ Ovalocytes 1+ Sodium 140 Potassium 4.1 Chloride 102 Carbon Dioxide 34 H Anion Gap 4 L BUN 30 H Creatinine 1.6 H POC Glucometer 163 Random Glucose 146 H D Calcium 7.9 L Magnesium 08/09/17 08/09/17 06:37 10:45 WBC RBC Hgb Hct MCV MCH MCHC RDW Plt Count MPV Total Counted Neutrophils % Neutrophils % (Manual) Lymphocytes % Lymphocytes % (Manual) Monocytes % (Manual) Eosinophils % (Manual) Metamyelocytes Polychromasia Macrocytosis Ovalocytes Sodium Potassium Chloride Carbon Dioxide Anion Gap BUN Creatinine POC Glucometer 174 Random Glucose Calcium Magnesium 1.7 L Active Medications Generic Name Dose Route Start Last Admin Trade Name Freq PRN Reason Stop Dose Admin Albuterol Sulfate 1 amp 08/03/17 11:16 Ventolin 0.083% Nebulizer Soln - NEB Q4H PRN SHORT OF BREATH/WHEEZING Atorvastatin Calcium 10 mg 08/02/17 22:00 08/08/17 22:08 Lipitor - PO 10 mg HS [facility] Administration Diltiazem HCl 240 mg 08/07/17 10:00 08/09/17 09:17 Cardizem Cd - PO 240 mg DAILY [facility] Administration Ferrous Sulfate 325 mg 08/02/17 10:00 08/09/17 09:17 Feosol - PO 325 mg DAILY [facility] Administration Piperacillin/Tazobactam/Dextrose 2.25 gm in 50 mls @ 100 mls/hr 08/03/17 16: 00 08/09/17 09:17 Zosyn 2.25gm Ivpb (Premix) IVPB 100 mls/hr Q8H-IV [facility] Administration Protocol Sodium Chloride 1,000 mls @ 75 mls/hr 08/07/17 20:15 08/09/17 01:58 1/2 Normal Saline IV 75 mls/hr ASDIR [facility] Administration Insulin Aspart 1 vial 08/03/17 22:00 08/09/17 11:03 Novolog Vial Sliding Scale - SQ 2 units ACHS [facility] Administration Protocol Insulin Detemir 6 units 08/05/17 22:00 08/08/17 22:09 Levemir Vial SQ 6 units HS [facility] Administration Lactobacillus Acidophilus 1 tab 08/02/17 10:45 08/09/17 09:17 Bacid - PO 1 tab DAILY [facility] Administration Nystatin 500,000 units 08/06/17 18:00 08/09/17 11:06 Nystatin Oral Suspension - PO 500,000 units Q6HPO [facility] Administration Timolol Maleate 1 drop 08/02/17 10:00 08/09/17 09:18 Timoptic 0.5% OU 1 drop DAILY [facility] Administration ASSESSMENT/PLAN: 1. DKA - Resolved 2. Sepsis secondary to hospital-acquired pneumonia - Afebrile, WBC improving - Continue Zosyn - Completed Tamiflu 3. Acute kidney injury on stage 3 CKD - Improved, creatinine back at baseline 4. Hypernatremia - Resolved 5. Hypomagnesemia - Start MagOx 6. Type 2 diabetes mellitus, uncontrolled - Continue Levemir, Novolog sliding scale 7. Hyperlipidemia - Continue Lipitor 8. Hypertension - Lisinopril held secondary to SHANTA - Continue Cardizem 9. SVT/atrial flutter - No further episodes - Continue Cardizem 10. Anemia - Transfused 1 unit PRBCs this admission - Continue ferrous sulfate 11. Oral candidiasis - Continue Nystatin swish and swallow 12. History of CVA - Continue Lipitor - Not on aspirin secondary to recent GI bleed
--- NOTE | 2017-08-09 14:12 | PN ---
Progress Note, Physician History of Present Illness: stable no new issues patient no complaints want to walk - Current Medication List Current Medications: Active Medications Albuterol Sulfate (Ventolin 0.083% Nebulizer Soln -) 1 amp NEB Q4H PRN PRN Reason: SHORT OF BREATH/WHEEZING Atorvastatin Calcium (Lipitor -) 10 mg PO HS [facility] Last Admin: 08/08/17 22:08 Dose: 10 mg Diltiazem HCl (Cardizem Cd -) 240 mg PO DAILY [facility] Last Admin: 08/09/17 09:17 Dose: 240 mg Ferrous Sulfate (Feosol -) 325 mg PO DAILY [facility] Last Admin: 08/09/17 09:17 Dose: 325 mg Piperacillin/Tazobactam/Dextrose (Zosyn 2.25gm Ivpb (Premix)) 2.25 gm in 50 mls @ 100 mls/hr IVPB Q8H-IV [facility] PRN Reason: Protocol Last Admin: 08/09/17 09:17 Dose: 100 mls/hr Sodium Chloride (1/2 Normal Saline) 1,000 mls @ 75 mls/hr IV ASDIR [facility] Last Admin: 08/09/17 01:58 Dose: 75 mls/hr Insulin Aspart (Novolog Vial Sliding Scale -) 1 vial SQ ACHS [facility] PRN Reason: Protocol Last Admin: 08/09/17 11:03 Dose: 2 units Insulin Detemir (Levemir Vial) 6 units SQ HS [facility] Last Admin: 08/08/17 22:09 Dose: 6 units Lactobacillus Acidophilus (Bacid -) 1 tab PO DAILY [facility] Last Admin: 08/09/17 09:17 Dose: 1 tab Nystatin (Nystatin Oral Suspension -) 500,000 units PO Q6HPO [facility] Last Admin: 08/09/17 11:06 Dose: 500,000 units Timolol Maleate (Timoptic 0.5%) 1 drop OU DAILY [facility] Last Admin: 08/09/17 09:18 Dose: 1 drop - Objective Vital Signs: Vital Signs Temperature 98.2 F 08/09/17 10:00 Pulse Rate 77 08/09/17 10:00 Respiratory Rate 18 08/09/17 10:00 Blood Pressure 133/62 08/09/17 10:00 O2 Sat by Pulse Oximetry (%) 98 08/09/17 09:00 Constitutional: Yes: No Distress, Calm Neck: Yes: Supple Cardiovascular: Yes: S1, S2 Respiratory: Yes: Regular, CTA Bilaterally Gastrointestinal: Yes: Normal Bowel Sounds, Soft Musculoskeletal: Yes: WNL Extremities: Yes: WNL Neurological: Yes: Alert, Oriented Psychiatric: Yes: Alert, Oriented Labs: CBC, BMP 08/09/17 06:37 08/09/17 06:37 INR, PTT INR 1.11 (0.82-1.09) 08/04/17 05:35 Assessment/Plan Problem List - Problems (1) DKA (diabetic ketoacidoses) Assessment/Plan: Code(s): E13.10 - OTH DIABETES MELLITUS WITH KETOACIDOSIS WITHOUT COMA Qualifiers: Diabetes mellitus type: type 2 Diabetes mellitus complication detail: without coma Qualified Code(s): E11.10 - Type 2 diabetes mellitus with ketoacidosis without coma (2) Sepsis Assessment/Plan: Code(s): A41.9 - SEPSIS, UNSPECIFIED ORGANISM (3) Hospital-acquired pneumonia Assessment/Plan: Code(s): J18.9 - PNEUMONIA, UNSPECIFIED ORGANISM (4) Hyperkalemia Assessment/Plan: Code(s): E87.5 - HYPERKALEMIA (5) CKD (chronic kidney disease) Assessment/Plan: Code(s): N18.9 - CHRONIC KIDNEY DISEASE, UNSPECIFIED (6) Hypertension Assessment/Plan: Code(s): I10 - ESSENTIAL (PRIMARY) HYPERTENSION Qualifiers: Hypertension type: essential hypertension Qualified Code(s): I10 - Essential (primary) hypertension (7) Hyperlipidemia Assessment/Plan: Code(s): E78.5 - HYPERLIPIDEMIA, UNSPECIFIED patients wbc has increased inspite of ceftriaxone plan cadena stop abx continue to [facility] physio rest as per primary team
--- NOTE | 2017-08-09 17:12 | PN ---
Progress Note (short form) - Note Progress Note: CC: svt s: no cp palps dizzy; IVF con't. no sob. still with poor po intake due to thrush. o: Current Medications Albuterol Sulfate (Ventolin 0.083% Nebulizer Soln -) 1 amp NEB Q4H PRN PRN Reason: SHORT OF BREATH/WHEEZING Atorvastatin Calcium (Lipitor -) 10 mg PO HS [facility] Last Admin: 08/08/17 22:08 Dose: 10 mg Diltiazem HCl (Cardizem Cd -) 240 mg PO DAILY [facility] Last Admin: 08/09/17 09:17 Dose: 240 mg Ferrous Sulfate (Feosol -) 325 mg PO DAILY [facility] Last Admin: 08/09/17 09:17 Dose: 325 mg Piperacillin/Tazobactam/Dextrose (Zosyn 2.25gm Ivpb (Premix)) 2.25 gm in 50 mls @ 100 mls/hr IVPB Q8H-IV [facility] PRN Reason: Protocol Last Admin: 08/09/17 09:17 Dose: 100 mls/hr Sodium Chloride (1/2 Normal Saline) 1,000 mls @ 75 mls/hr IV ASDIR [facility] Last Admin: 08/09/17 01:58 Dose: 75 mls/hr Insulin Aspart (Novolog Vial Sliding Scale -) 1 vial SQ ACHS [facility] PRN Reason: Protocol Last Admin: 08/09/17 16:23 Dose: 2 units Insulin Detemir (Levemir Vial) 6 units SQ HS [facility] Last Admin: 08/08/17 22:09 Dose: 6 units Lactobacillus Acidophilus (Bacid -) 1 tab PO DAILY [facility] Last Admin: 08/09/17 09:17 Dose: 1 tab Magnesium Oxide (Mag-Ox -) 400 mg PO BID [facility] Nystatin (Nystatin Oral Suspension -) 500,000 units PO Q6HPO [facility] Last Admin: 08/09/17 11:06 Dose: 500,000 units Timolol Maleate (Timoptic 0.5%) 1 drop OU DAILY [facility] Last Admin: 08/09/17 09:18 Dose: 1 drop Vital Signs - 24 hr 08/08/17 08/08/17 08/09/17 18:27 21:00 05:44 Temperature 98.1 F 98.5 F 97.8 F Pulse Rate 76 76 74 Respiratory 20 18 18 Rate Blood Pressure 123/92 142/63 125/59 O2 Sat by Pulse 95 Oximetry (%) 08/09/17 08/09/17 08/09/17 09:00 10:00 14:05 Temperature 98.2 F 98.3 F Pulse Rate 77 71 Respiratory 18 18 Rate Blood Pressure 133/62 109/49 O2 Sat by Pulse 98 Oximetry (%) Intake & Output 08/07/17 08/08/17 08/09/17 08/10/17 07:59 07:59 07:59 07:59 Intake Total 840 178.8 1150 380 Output Total 1550 1950 Balance 840 -1371.2 -800 380 NAD, cachectic, calm black coating on tongue. JVD flat, neck supple rales at left base. nl effort rrr nl s1, s2 2/6 sys murmur at apex + bs soft nt nd. no le e/c/c aaox3 no jaundice, diaphoresis CBC, BMP 08/09/17 06:37 08/09/17 06:37 EKG aflutter with variable block, [address]-t wave ab prior tele: sr chest ct: RUL RML and bilateral Lower lobe patchy infiltrates c/w pna. asc aorta 4.5 cm. over distended stomach echo 06/2017: mod lvh. nl lv fn. nl rv size/fn. 1+ lae. mod-sev mac with mod ms. 1+ mr. nl rvsp. 1+ ao dilation A/P 76 yo with pmhx of htn, hl, pad, cva (no residual deficits), copd, dm, mgus, esthesioneuroblastoma treated with radiation therapy, chronic anemia recently worsened s/p recent GIB last month who p/w sob/weakness and noted to be in DKA with pna, hospital course now complicated by episode of SVT. SVT - self-limited episode in setting of recovering pna/dka. no recurrence on tele - preserved EF. started dilt 60 mg po q6h for suppression, changed to long acting. Patient with lvh and mod MS will likely not tolerate prolonged rapid HR 's. - atach vs. atypical flutter with h/o prior CVA (details of etiology/work up at that time unknown). patient with h/o recent gib and significant anemia. discussed with pmd, not thought to be safe for AC or ASA at this time. If anemia stabilizes and patient becomes candidate for AC or ASA can consider outpatient monitoring to assess for recurrence. htn -overall stable. patient is a diabetic and had been on lisinopril as outpatient. currently on hold due to steve. renal following. cva/pad - con't statin. not currently candidate for asa due to recent gib and anemia. resume if/when safe. mild asc ao dilation - cont bp control DKA/pna/steve - ongoing mgm't per pmd, ID, renal. - 06/08 sodium remains wnl on IVF. renal function continues to improve.
[2017-08-09] MEDS: INSULIN DETEMIR 100 UNITS/ML MDV SQ SCH (22:34)
[2017-08-09] MEDS: ATORVASTATIN CA 10 MG TABLET (FP) PO SCH (22:34)
[2017-08-09] MEDS: MAGNESIUM OXIDE 400 MG TABLET (FP) PO SCH (22:34)
[2017-08-10] MEDS: NYSTATIN 500,000 UNITS/5 ML SUSPENSION PO SCH ×5 (00:55→23:10)
[2017-08-10] MEDS: PIPERACILLIN/TAZOB 2.25 GM 2.25 GM/50 ML BAG IVPB SCH ×2 (02:02→10:19)
[2017-08-10] MEDS: INSULIN SLIDING SCALE (NOVOLOG) 1 VIAL SQ SCH ×4 (06:46→23:11)
[2017-08-10] MEDS: SODIUM CHLORIDE 0.45% 1,000 ML IV SCH (06:48)
[2017-08-10 07:06] LABS: HEMATOCRIT 28.8 % (35.4-49); HEMOGLOBIN 9.4 GM/dL (11.7-16.9); MCH 29.2 pg (25.7-33.7); MCHC 32.5 g/dl (32.0-35.9); MEAN CELL VOLUME 89.9 fl (80-96); MEAN PLT VOLUME 8.2 fl (7.5-11.1); PLATELET COUNT 326 K/MM3 (134-434); RBC 3.21 M/mm3 (4.00-5.60); RDW 14.7 % (11.9-15.9); WHITE BLOOD COUNT 10.6 K/mm3 (4.0-10.0)
[2017-08-10 07:08] LABS: ANION GAP 4 (8-16); BLOOD UREA NITROGEN 22 mg/dL (7-18); CALCIUM 7.7 mg/dL (8.5-10.1); CHLORIDE 101 mmol/L (98-107); CO2 35 mmol/L (21-32); CREATININE 1.4 mg/dL (0.7-1.3); GLUCOSE,RANDOM 115 mg/dL (74-106); MAGNESIUM 1.7 mg/dL (1.8-2.4); SODIUM 140 mmol/L (136-145)
--- NOTE | 2017-08-10 09:09 | PN ---
Progress Note (short form) - Note Progress Note: Denies any complaints Apetite good Vital Signs Period Temp Pulse Resp BP Sys/Sy Pulse Ox Last 24 Hr 97.3 F-98.3 F 65-86 16-18 109-152/49-85 97-98 PE: Awake ,alert Neck: Supple, No JVD HEENT: EOMI Lungs: CTA Abd: Benign CVS: S1S2 Ext: No edema Neuro: No focal deficit CMP Sodium 140 mmol/L (136-145) 08/10/17 05:35 Potassium 4.0 mmol/L (3.5-5.1) 08/10/17 05:35 Chloride 101 mmol/L (98-107) 08/10/17 05:35 Carbon Dioxide 35 mmol/L (21-32) H 08/10/17 05:35 Anion Gap 4 (8-16) L 08/10/17 05:35 BUN 22 mg/dL (7-18) H D 08/10/17 05:35 Creatinine 1.4 mg/dL (0.7-1.3) H 08/10/17 05:35 Creat Clearance w eGFR 29.09 (>60) 08/03/17 05:00 POC Glucometer 125 UNITS (80-120) 08/10/17 05:52 Random Glucose 115 mg/dL (74-106) H D 08/10/17 05:35 Hemoglobin A1c % 7.1 % (4.8-6.0) H 08/02/17 07:00 Lactic Acid 1.6 mmol/L (0.0-2.0) 08/02/17 07:00 Calcium 7.7 mg/dL (8.5-10.1) L 08/10/17 05:35 Phosphorus 3.6 mg/dL (2.5-4.9) 08/07/17 06:30 Magnesium 1.7 mg/dL (1.8-2.4) L 08/10/17 05:35 Iron 11 ug/dL (38-169) L 08/03/17 05:00 TIBC 225 ug/dL (250-450) L 08/03/17 05:00 Iron Saturation 5 % (15-55) L 08/03/17 05:00 Ferritin 85.737 ng/ml (16.4-293.9) 08/03/17 05:00 Total Bilirubin 0.3 mg/dL (0.2-1.0) D 08/03/17 05:00 AST 11 U/L (15-37) L 08/03/17 05:00 ALT 10 U/L (12-78) L 08/03/17 05:00 Alkaline Phosphatase 88 U/L (45-117) 08/03/17 05:00 Creatine Kinase 41 IU/L (39-308) 08/01/17 21:40 Troponin I 0.03 ng/ml (0.00-0.05) D 08/01/17 21:40 B-Natriuretic Peptide 2491.06 pg/ml (5-450) H 08/01/17 21:40 Total Protein 5.1 g/dl (6.4-8.2) L 08/03/17 05:00 Albumin 2.2 g/dl (3.4-5.0) L 08/03/17 05:00 Current Medications Generic Name Dose Route Start Last Admin Trade Name Freq PRN Reason Stop Dose Admin Albuterol Sulfate 1 amp 08/03/17 11:16 Ventolin 0.083% Nebulizer Soln - NEB Q4H PRN SHORT OF BREATH/WHEEZING Atorvastatin Calcium 10 mg 08/02/17 22:00 08/09/17 22:34 Lipitor - PO 10 mg HS [facility] Administration Diltiazem HCl 240 mg 08/07/17 10:00 08/09/17 09:17 Cardizem Cd - PO 240 mg DAILY [facility] Administration Ferrous Sulfate 325 mg 08/02/17 10:00 08/09/17 09:17 Feosol - PO 325 mg DAILY [facility] Administration Piperacillin/Tazobactam/Dextrose 2.25 gm in 50 mls @ 100 mls/hr 08/03/17 16: 00 08/10/17 02:02 Zosyn 2.25gm Ivpb (Premix) IVPB 100 mls/hr Q8H-IV [facility] Administration Protocol Sodium Chloride 1,000 mls @ 75 mls/hr 08/07/17 20:15 08/10/17 06:48 1/2 Normal Saline IV 75 mls/hr ASDIR [facility] Administration Insulin Aspart 1 vial 08/03/17 22:00 08/10/17 06:46 Novolog Vial Sliding Scale - SQ Not Given ACHS [facility] Protocol Insulin Detemir 6 units 08/05/17 22:00 08/09/17 22:34 Levemir Vial SQ 6 units HS [facility] Administration Lactobacillus Acidophilus 1 tab 08/02/17 10:45 08/09/17 09:17 Bacid - PO 1 tab DAILY [facility] Administration Magnesium Oxide 400 mg 08/09/17 22:00 08/09/17 22:34 Mag-Ox - PO 400 mg BID [facility] Administration Nystatin 500,000 units 08/06/17 18:00 08/10/17 06:45 Nystatin Oral Suspension - PO 500,000 units Q6HPO [facility] Administration Timolol Maleate 1 drop 08/02/17 10:00 08/09/17 09:18 Timoptic 0.5% OU 1 drop DAILY [facility] Administration AP: T2DM with Hyperglycemia ?DKA SHANTA COPD Anemia Mild acidosis resolved. Cr 1.4 Acetone trace positive Levemir 6 units daily at HS Novolog SS coverage BGM QACHS and at 3 a.m. Electrolyte replacement as necessary Will need to go home on Insulin as he came in with DKA W/U a outpt to decide if he need to be on Insulin on the [facility] Will f/u Problem List - Problems (1) SHANTA (acute kidney injury) Code(s): N17.9 - ACUTE KIDNEY FAILURE, UNSPECIFIED (2) DKA (diabetic ketoacidoses) Code(s): E13.10 - OTH DIABETES MELLITUS WITH KETOACIDOSIS WITHOUT COMA Qualifiers: Diabetes mellitus type: type 2 Diabetes mellitus complication detail: without coma Qualified Code(s): E11.10 - Type 2 diabetes mellitus with ketoacidosis without coma (3) Diabetes mellitus Code(s): E11.9 - TYPE 2 DIABETES MELLITUS WITHOUT COMPLICATIONS Qualifiers: Diabetes mellitus type: type 2 Diabetes mellitus complication status: with kidney complications Diabetes mellitus complication detail: with chronic kidney disease Diabetes mellitus [facility] insulin use: without [facility] use
[2017-08-10] MEDS: FERROUS SO4 325 MG TABLET (FP) PO SCH (10:08)
[2017-08-10] MEDS: LACTOBACILLUS ACIDOPHILUS 1 EACH TAB (FP) PO SCH (10:08)
[2017-08-10] MEDS: MAGNESIUM OXIDE 400 MG TABLET (FP) PO SCH ×2 (10:08→23:11)
[2017-08-10] MEDS: TIMOLOL 0.5% OPHTHALMIC SOL 5 ML BOTTLE OU SCH (10:09)
--- NOTE | 2017-08-10 11:24 | PN ---
Progress Note, [employer] - Note Progress Note: Selected Entries 08/08/17 08/08/17 08/08/17 05:41 10:00 10:22 Breakfast 75% Supper Temperature 97.4 F L 98.4 F 08/08/17 08/08/17 08/08/17 14:19 18:27 21:00 Breakfast Supper 50% Temperature 97.3 F L 98.1 F 98.5 F 08/09/17 08/09/17 05:44 10:00 Breakfast Supper Temperature 97.8 F 98.2 F Laboratory Tests 08/07/17 08/08/17 08/09/17 06:30 06:30 06:37 WBC 11.6 H 12.7 H 11.3 H Nystatin ordered 08/06. Pt reports improved swallowing function Tongue is still black,unchanged. r/o oral bacteria/fungus? Gentle Mouth care with tooth brush. I contacted PMD and ID to evaluate oral cavity/medical management.
[2017-08-10] MEDS ORDERED: ALBUTEROL SO4 0.083% IH SOL 2.5 MG/3 ML VIAL.NEB. NEB PRN (11:29)
--- NOTE | 2017-08-10 11:42 | PN ---
Progress Note (short form) - Note Progress Note: CC: svt s: no cp palps dizzy; IVF con't. no sob. still with poor po intake due to thrush. o: Current Medications Albuterol Sulfate (Ventolin 0.083% Nebulizer Soln -) 1 amp NEB Q4H PRN PRN Reason: SHORT OF BREATH/WHEEZING Atorvastatin Calcium (Lipitor -) 10 mg PO HS [facility] Diltiazem HCl (Cardizem Cd -) 240 mg PO DAILY [facility] Last Admin: 08/10/17 10:08 Dose: 240 mg Ferrous Sulfate (Feosol -) 325 mg PO DAILY [facility] Piperacillin/Tazobactam/Dextrose (Zosyn 2.25gm Ivpb (Premix)) 2.25 gm in 50 mls @ 100 mls/hr IVPB Q8H-IV [facility] PRN Reason: Protocol Last Admin: 08/10/17 10:19 Dose: 100 mls/hr Sodium Chloride (1/2 Normal Saline) 1,000 mls @ 75 mls/hr IV ASDIR [facility] Last Admin: 08/10/17 06:48 Dose: 75 mls/hr Insulin Aspart (Novolog Vial Sliding Scale -) 1 vial SQ ACHS [facility] PRN Reason: Protocol Last Admin: 08/10/17 06:46 Dose: Not Given Insulin Detemir (Levemir Vial) 6 units SQ HS [facility] Last Admin: 08/09/17 22:34 Dose: 6 units Lactobacillus Acidophilus (Bacid -) 1 tab PO DAILY [facility] Magnesium Oxide (Mag-Ox -) 400 mg PO BID [facility] Last Admin: 08/10/17 10:08 Dose: 400 mg Nystatin (Nystatin Oral Suspension -) 500,000 units PO Q6HPO [facility] Last Admin: 08/10/17 06:45 Dose: 500,000 units Timolol Maleate (Timoptic 0.5%) 1 drop OU DAILY [facility] Vital Signs - 24 hr 08/09/17 08/09/17 08/09/17 14:05 18:00 21:00 Temperature 98.3 F 98.1 F Pulse Rate 71 65 Respiratory 18 18 16 Rate Blood Pressure 109/49 137/55 O2 Sat by Pulse 98 Oximetry (%) 08/09/17 08/10/17 08/10/17 22:00 06:00 07:00 Temperature 97.3 F L 98.1 F Pulse Rate 81 86 Respiratory 16 18 Rate Blood Pressure 152/72 149/85 O2 Sat by Pulse 97 Oximetry (%) 08/10/17 10:00 Temperature 98 F Pulse Rate 86 Respiratory 20 Rate Blood Pressure 130/67 O2 Sat by Pulse Oximetry (%) Intake & Output 08/08/17 08/09/17 08/10/17 08/11/17 07:59 07:59 07:59 07:59 Intake Total 178.8 1150 500 350 Output Total 1550 1950 1500 Balance -1371.2 -800 -1000 350 NAD, cachectic, calm black coating on tongue. JVD flat, neck supple ctab, diminshed air movment. nl effort rrr nl s1, s2 2/6 sys murmur at apex + bs soft nt nd. no le e/c/c aaox3 no jaundice, diaphoresis CBC, BMP 08/10/17 05:35 08/10/17 05:35 EKG aflutter with variable block, [address]-t wave ab prior tele: sr chest ct: RUL RML and bilateral Lower lobe patchy infiltrates c/w pna. asc aorta 4.5 cm. over distended stomach echo 06/2017: mod lvh. nl lv fn. nl rv size/fn. 1+ lae. mod-sev mac with mod ms. 1+ mr. nl rvsp. 1+ ao dilation A/P 76 yo with pmhx of htn, hl, pad, cva (no residual deficits), copd, dm, mgus, esthesioneuroblastoma treated with radiation therapy, chronic anemia recently worsened s/p recent GIB last month who p/w sob/weakness and noted to be in DKA with pna, hospital course now complicated by episode of SVT. SVT, resolved - self-limited episode in setting of recovering pna/dka. no recurrence on tele - preserved EF. started dilt 60 mg po q6h for suppression, changed to long acting. Patient with lvh and mod MS will likely not tolerate prolonged rapid HR 's. - atach vs. atypical flutter with h/o prior CVA (details of etiology/work up at that time unknown). patient with h/o recent gib and significant anemia. discussed with pmd, not thought to be safe for AC or ASA at this time. If anemia stabilizes and patient becomes candidate for AC or ASA can consider outpatient monitoring to assess for recurrence. htn -overall stable. patient is a diabetic and had been on lisinopril as outpatient. currently on hold due to steve. renal following. cva/pad - con't statin. not currently candidate for asa due to recent gib and anemia. resume if/when safe. mild asc ao dilation - cont bp control DKA/pna/steve - ongoing mgm't per pmd, ID, renal. - 08/09-08/10 sodium remains wnl on IVF. renal function continues to improve.
--- NOTE | 2017-08-10 13:29 | PN ---
Progress Note, Physician Chief Complaint: still some coughing an appetite sloly improving. History of Present Illness: The patient has made progress with improvement in renal lab, mentation and coughing since admission. Appetite still an issue but his thrush has not repopnded to Nystatin so I will add a few days of Diflucan. PT notes reviewed and he is still weak and unsteady. Continues on IV antibiotics for bilateral pulmonary infiltrates on CT scan. BGM's improved. Will need SNF post discharge. - Current Medication List Current Medications: Active Medications Albuterol Sulfate (Ventolin 0.083% Nebulizer Soln -) 1 amp NEB Q4H PRN PRN Reason: SHORT OF BREATH/WHEEZING Atorvastatin Calcium (Lipitor -) 10 mg PO HS [facility] Diltiazem HCl (Cardizem Cd -) 240 mg PO DAILY [facility] Last Admin: 08/10/17 10:08 Dose: 240 mg Ferrous Sulfate (Feosol -) 325 mg PO DAILY@0800 [facility] Fluconazole (Diflucan -) 100 mg PO DAILY [facility] Piperacillin/Tazobactam/Dextrose (Zosyn 2.25gm Ivpb (Premix)) 2.25 gm in 50 mls @ 100 mls/hr IVPB Q8H-IV [facility] PRN Reason: Protocol Last Admin: 08/10/17 10:19 Dose: 100 mls/hr Insulin Aspart (Novolog Vial Sliding Scale -) 1 vial SQ ACHS [facility] PRN Reason: Protocol Last Admin: 08/10/17 06:46 Dose: Not Given Insulin Detemir (Levemir Vial) 6 units SQ HS [facility] Last Admin: 08/09/17 22:34 Dose: 6 units Lactobacillus Acidophilus (Bacid -) 1 tab PO DAILY [facility] Magnesium Oxide (Mag-Ox -) 400 mg PO BID [facility] Last Admin: 08/10/17 10:08 Dose: 400 mg Nystatin (Nystatin Oral Suspension -) 500,000 units PO Q6HPO [facility] Last Admin: 08/10/17 06:45 Dose: 500,000 units Timolol Maleate (Timoptic 0.5%) 1 drop OU DAILY [facility] - Objective Vital Signs: Vital Signs Temperature 98 F 08/10/17 10:00 Pulse Rate 86 08/10/17 10:00 Respiratory Rate 20 08/10/17 10:00 Blood Pressure 130/67 08/10/17 10:00 O2 Sat by Pulse Oximetry (%) 97 08/10/17 07:00 Constitutional: Yes: Calm, Thin Eyes: Yes: Conjunctiva Clear Cardiovascular: Yes: Regular Rate and Rhythm Respiratory: Yes: Diminished, On Nasal O2, Rales, Rhonchi Gastrointestinal: Yes: Soft, Other (no BM for 2 days) Genitourinary: No: Langston Present Edema: No Neurological: Yes: Alert, Oriented Labs: CBC, BMP 08/10/17 05:35 08/10/17 05:35 INR, PTT INR 1.11 (0.82-1.09) 08/04/17 05:35 Problem List - Problems (1) Pneumonia Assessment/Plan: Bilateral infiltrates on CT scan On IV antibiotics To add Chest PT Code(s): J18.9 - PNEUMONIA, UNSPECIFIED ORGANISM (2) SHANTA (acute kidney injury) Assessment/Plan: BUN and creatinine improved to 22 and 1.4 Code(s): N17.9 - ACUTE KIDNEY FAILURE, UNSPECIFIED (3) DKA (diabetic ketoacidoses) Code(s): E13.10 - OTH DIABETES MELLITUS WITH KETOACIDOSIS WITHOUT COMA Qualifiers: Diabetes mellitus type: type 2 Diabetes mellitus complication detail: without coma Qualified Code(s): E11.10 - Type 2 diabetes mellitus with ketoacidosis without coma (4) Oral thrush Assessment/Plan: Not improved on oral Nystatin; to Rx with Diflucan PO as his appetite will improve. Code(s): B37.0 - CANDIDAL STOMATITIS (5) CKD (chronic kidney disease) stage 3, GFR 30-59 ml/min Assessment/Plan: Improved renal lab to 22BUN and 1.4 Creatinine Code(s): N18.3 - CHRONIC KIDNEY DISEASE, STAGE 3 (MODERATE) (6) Diabetes mellitus Assessment/Plan: BGM's improved overall. Code(s): E11.9 - TYPE 2 DIABETES MELLITUS WITHOUT COMPLICATIONS Qualifiers: Diabetes mellitus type: type 2 Diabetes mellitus complication status: with kidney complications Diabetes mellitus complication detail: with chronic kidney disease Diabetes mellitus group home insulin use: without terminal operations supervisor use
--- NOTE | 2017-08-10 13:43 | PN ---
Progress Note, Physician History of Present Illness: stable wbc near normal patient has no complaints says doing well - Current Medication List Current Medications: Active Medications Albuterol Sulfate (Ventolin 0.083% Nebulizer Soln -) 1 amp NEB Q4H PRN PRN Reason: SHORT OF BREATH/WHEEZING Atorvastatin Calcium (Lipitor -) 10 mg PO HS [facility] Diltiazem HCl (Cardizem Cd -) 240 mg PO DAILY [facility] Last Admin: 08/10/17 10:08 Dose: 240 mg Ferrous Sulfate (Feosol -) 325 mg PO DAILY@0800 [facility] Fluconazole (Diflucan -) 100 mg PO DAILY [facility] Insulin Aspart (Novolog Vial Sliding Scale -) 1 vial SQ ACHS [facility] PRN Reason: Protocol Last Admin: 08/10/17 13:37 Dose: 2 units Insulin Detemir (Levemir Vial) 6 units SQ HS [facility] Last Admin: 08/09/17 22:34 Dose: 6 units Lactobacillus Acidophilus (Bacid -) 1 tab PO DAILY [facility] Magnesium Oxide (Mag-Ox -) 400 mg PO BID [facility] Last Admin: 08/10/17 10:08 Dose: 400 mg Nystatin (Nystatin Oral Suspension -) 500,000 units PO Q6HPO [facility] Last Admin: 08/10/17 13:39 Dose: 500,000 units Polyethylene Glycol (Miralax (For Daily Use) -) 17 gm PO DAILY [facility] Timolol Maleate (Timoptic 0.5%) 1 drop OU DAILY [facility] - Objective Vital Signs: Vital Signs Temperature 98 F 08/10/17 10:00 Pulse Rate 86 08/10/17 10:00 Respiratory Rate 20 08/10/17 10:00 Blood Pressure 130/67 08/10/17 10:00 O2 Sat by Pulse Oximetry (%) 97 08/10/17 07:00 Constitutional: Yes: No Distress, Calm Cardiovascular: Yes: Regular Rate and Rhythm Respiratory: Yes: Regular, CTA Bilaterally Gastrointestinal: Yes: Normal Bowel Sounds, Soft Musculoskeletal: Yes: WNL Extremities: Yes: WNL Neurological: Yes: Alert, Oriented Psychiatric: Yes: Alert, Oriented Labs: CBC, BMP 08/10/17 05:35 08/10/17 05:35 INR, PTT INR 1.11 (0.82-1.09) 08/04/17 05:35 Assessment/Plan Problem List - Problems (1) DKA (diabetic ketoacidoses) Assessment/Plan: Code(s): E13.10 - OTH DIABETES MELLITUS WITH KETOACIDOSIS WITHOUT COMA Qualifiers: Diabetes mellitus type: type 2 Diabetes mellitus complication detail: without coma Qualified Code(s): E11.10 - Type 2 diabetes mellitus with ketoacidosis without coma (2) Sepsis Assessment/Plan: Code(s): A41.9 - SEPSIS, UNSPECIFIED ORGANISM (3) Hospital-acquired pneumonia Assessment/Plan: Code(s): J18.9 - PNEUMONIA, UNSPECIFIED ORGANISM (4) Hyperkalemia Assessment/Plan: Code(s): E87.5 - HYPERKALEMIA (5) CKD (chronic kidney disease) Assessment/Plan: Code(s): N18.9 - CHRONIC KIDNEY DISEASE, UNSPECIFIED (6) Hypertension Assessment/Plan: Code(s): I10 - ESSENTIAL (PRIMARY) HYPERTENSION Qualifiers: Hypertension type: essential hypertension Qualified Code(s): I10 - Essential (primary) hypertension (7) Hyperlipidemia Assessment/Plan: Code(s): E78.5 - HYPERLIPIDEMIA, UNSPECIFIED patients wbc now near normal plan stable off of abx continue to [facility]or physio rest as per primary team
[2017-08-10] MEDS ORDERED: FLUCONAZOLE 100 MG TABLET (UD) PO SCH (14:30)
--- NOTE | 2017-08-10 15:07 | PN ---
Progress Note (short form) - Note Progress Note: Renal follow up for SHANTA on CKD Pt seen and examined at the bedside awake and alert no acute complaints no sob, chest pain, abd pain, N/V/D Vital Signs Temperature 98.8 F 08/10/17 14:36 Pulse Rate 74 08/10/17 14:36 Respiratory Rate 16 08/10/17 14:36 Blood Pressure 121/56 08/10/17 14:36 O2 Sat by Pulse Oximetry (%) 97 08/10/17 09:00 Intake & Output 08/07/17 08/08/17 08/09/17 08/10/17 23:59 23:59 23:59 23:59 Intake Total 388.8 200 1330 720 Output Total 650 2400 1150 1350 Balance -261.2 -2200 180 -630 NAD dec BS at lung bases no LE edema CBC, BMP 08/10/17 05:35 08/10/17 05:35 Current Medications Albuterol Sulfate (Ventolin 0.083% Nebulizer Soln -) 1 amp NEB Q4H PRN PRN Reason: SHORT OF BREATH/WHEEZING Atorvastatin Calcium (Lipitor -) 10 mg PO HS [facility] [place] Diltiazem HCl (Cardizem Cd -) 240 mg PO DAILY [facility] Last Admin: 08/10/17 10:08 Dose: 240 mg Ferrous Sulfate (Feosol -) 325 mg PO DAILY@0800 [facility] Fluconazole (Diflucan -) 100 mg PO DAILY [facility] Insulin Aspart (Novolog Vial Sliding Scale -) 1 vial SQ ACHS [facility] PRN Reason: Protocol Last Admin: 08/10/17 13:37 Dose: 2 units Insulin Detemir (Levemir Vial) 6 units SQ HS [facility] [place] Last Admin: 08/09/17 22:34 Dose: 6 units Lactobacillus Acidophilus (Bacid -) 1 tab PO DAILY [facility] [place] Magnesium Oxide (Mag-Ox -) 400 mg PO BID [facility] [place] Last Admin: 08/10/17 10:08 Dose: 400 mg Nystatin (Nystatin Oral Suspension -) 500,000 units PO Q6HPO [facility] [place] Last Admin: 08/10/17 13:39 Dose: 500,000 units Polyethylene Glycol (Miralax (For Daily Use) -) 17 gm PO DAILY [facility] [place] Timolol Maleate (Timoptic 0.5%) 1 drop OU DAILY [facility] 76 year old gentleman with PMhx of CKD Stage 3 (baseline Cr ~1.4), Hypertension , DM who presented to the ED with complaints of fatigue and anorexia and found to have DKA and SHANTA with Cr of 2.9. #Acute Kidney Injury on CKD Renal function is improved and stable can d/c IVF trend BUN/Cr and electrolytes baseline Cr ~1.4, Likely etiology is diabetic nephropathy Tomás Al DO
[2017-08-10] MEDS: POLYETHYLENE GLYCOL 3350 119 GM BTL PO SCH (17:25)
[2017-08-10] MEDS: ATORVASTATIN CA 10 MG TABLET (FP) PO SCH (23:10)
[2017-08-10] MEDS: INSULIN DETEMIR 100 UNITS/ML MDV SQ SCH (23:11)
[2017-08-11] MEDS: NYSTATIN 500,000 UNITS/5 ML SUSPENSION PO SCH ×4 (06:08→23:06)
[2017-08-11] MEDS: INSULIN SLIDING SCALE (NOVOLOG) 1 VIAL SQ SCH ×4 (06:08→22:37)
[2017-08-11 07:08] LABS: BASO % 0.4 % (0-2.0); EOS % 1.7 % (0-4.5); HEMOGLOBIN 9.5 GM/dL (11.7-16.9); LYMPH % 7.3 % (8-40); MCH 29.6 pg (25.7-33.7); MCHC 32.7 g/dl (32.0-35.9); MEAN CELL VOLUME 90.6 fl (80-96); MEAN PLT VOLUME 8.4 fl (7.5-11.1); NEUT % 82.6 % (42.8-82.8); PLATELET COUNT 335 K/MM3 (134-434); RBC 3.21 M/mm3 (4.00-5.60); RDW 14.3 % (11.9-15.9); WHITE BLOOD COUNT 9.5 K/mm3 (4.0-10.0)
[2017-08-11 07:45] LABS: CHLORIDE 100 mmol/L (98-107); POTASSIUM 4.4 mmol/L (3.5-5.1); SODIUM 140 mmol/L (136-145)
[2017-08-11] MEDS ORDERED: FERROUS SO4 325 MG TABLET (FP) PO SCH (08:00)
[2017-08-11 08:05] LABS: ANION GAP 8 (8-16); BLOOD UREA NITROGEN 20 mg/dL (7-18); CALCIUM 7.8 mg/dL (8.5-10.1); CO2 32 mmol/L (21-32); CREATININE 1.3 mg/dL (0.7-1.3); GLUCOSE,RANDOM 86 mg/dL (74-106); MAGNESIUM 1.9 mg/dL (1.8-2.4); PHOSPHOROUS 2.4 mg/dL (2.5-4.9)
--- NOTE | 2017-08-11 09:02 | PN ---
Progress Note (short form) - Note Progress Note: Dr. Phillips to document today. ? Maybe SNF by Wednesday. Problem List - Problems (1) Pneumonia Code(s): J18.9 - PNEUMONIA, UNSPECIFIED ORGANISM (2) SAHNTA (acute kidney injury) Code(s): N17.9 - ACUTE KIDNEY FAILURE, UNSPECIFIED (3) DKA (diabetic ketoacidoses) Code(s): E13.10 - OTH DIABETES MELLITUS WITH KETOACIDOSIS WITHOUT COMA Qualifiers: Diabetes mellitus type: type 2 Diabetes mellitus complication detail: without coma Qualified Code(s): E11.10 - Type 2 diabetes mellitus with ketoacidosis without coma (4) Oral thrush Code(s): B37.0 - CANDIDAL STOMATITIS (5) CKD (chronic kidney disease) stage 3, GFR 30-59 ml/min Code(s): N18.3 - CHRONIC KIDNEY DISEASE, STAGE 3 (MODERATE) (6) Diabetes mellitus Code(s): E11.9 - TYPE 2 DIABETES MELLITUS WITHOUT COMPLICATIONS Qualifiers: Diabetes mellitus type: type 2 Diabetes mellitus complication status: with kidney complications Diabetes mellitus complication detail: with chronic kidney disease Diabetes mellitus group home insulin use: without emt intermediate use
--- NOTE | 2017-08-11 10:45 | PN ---
Progress Note, [employer] - Note Progress Note: Selected Entries 08/10/17 08/10/17 08/10/17 10:07 14:36 18:00 Breakfast 25% Lunch 75% Supper 100% Diflucan added to Nystatin, because of persistent black tongue. Looking a little better today. Continue mouth/tongue care, gently with toothbrush and hold nystatin in mouth for a bit before swallowing to coat tongue. Avoid drinking/eating after Nystatin. Swallowing has improved. Pt eats regular food at home. He was downgraded here due to symptoms of Dysphagia, likely secondary to candiuda. MBS was (-). Suggest trial of soft, regular food, chopped meat with gravy. Supplements between meals.
[2017-08-11] MEDS: LACTOBACILLUS ACIDOPHILUS 1 EACH TAB (FP) PO SCH (10:52)
[2017-08-11] MEDS: MAGNESIUM OXIDE 400 MG TABLET (FP) PO SCH ×2 (10:53→22:34)
[2017-08-11] MEDS: POLYETHYLENE GLYCOL 3350 119 GM BTL PO SCH (10:54)
[2017-08-11] MEDS: TIMOLOL 0.5% OPHTHALMIC SOL 5 ML BOTTLE OU SCH (10:58)
--- NOTE | 2017-08-11 11:25 | PN ---
Progress Note (short form) - Note Progress Note: s: no cp sob palps dizzy o: Vital Signs Period Temp Pulse Resp BP Sys/Sy Pulse Ox Last 24 Hr 98 F-98.9 F 67-88 16-20 121-137/56-62 94 NAD, cachectic, calm JVD flat, neck supple ctab nl effort rrr nl s1, s2 2/6 sys murmur at apex + bs soft nt nd. no le e/c/c aaox3 no jaundice, diaphoresis Current Medications Generic Name Dose Route Start Last Admin Trade Name Freq PRN Reason Stop Dose Admin Albuterol Sulfate 1 amp 08/10/17 11:29 Ventolin 0.083% Nebulizer Soln - NEB Q4H PRN SHORT OF BREATH/WHEEZING Atorvastatin Calcium 10 mg 08/10/17 22:00 08/10/17 23:10 Lipitor - PO 10 mg HS [facility] Administration Diltiazem HCl 240 mg 08/07/17 10:00 08/11/17 10:53 Cardizem Cd - PO 240 mg DAILY [facility] Administration Ferrous Sulfate 325 mg 08/11/17 08:00 08/11/17 10:52 Feosol - PO 325 mg DAILY@0800 [facility] Administration Fluconazole 100 mg 08/11/17 11:15 Diflucan - PO 08/12/17 10:01 DAILY [facility] Insulin Aspart 1 vial 08/03/17 22:00 08/11/17 06:08 Novolog Vial Sliding Scale - SQ Not Given ACHS [facility] Protocol Insulin Detemir 6 units 08/05/17 22:00 08/10/17 23:11 Levemir Vial SQ 6 units HS [facility] Administration Lactobacillus Acidophilus 1 tab 08/11/17 10:00 08/11/17 10:52 Bacid - PO 1 tab DAILY [facility] Administration Magnesium Oxide 400 mg 08/09/17 22:00 08/11/17 10:53 Mag-Ox - PO 400 mg BID [facility] Administration Nystatin 500,000 units 08/06/17 18:00 08/11/17 06:08 Nystatin Oral Suspension - PO 500,000 units Q6HPO [facility] Administration Polyethylene Glycol 17 gm 08/10/17 14:30 08/11/17 10:54 Miralax (For Daily Use) - PO 17 gm DAILY [facility] Administration Timolol Maleate 1 drop 08/11/17 10:00 08/11/17 10:58 Timoptic 0.5% OU 1 drop DAILY [facility] Administration CBC, BMP 08/11/17 05:30 08/11/17 05:30 EKG aflutter with variable block, [address]-t wave ab chest ct: RUL RML and bilateral Lower lobe patchy infiltrates c/w pna. asc aorta 4.5 cm. over distended stomach echo 06/2017: mod lvh. nl lv fn. nl rv size/fn. 1+ lae. mod-sev mac with mod ms. 1+ mr. nl rvsp. 1+ ao dilation A/P 76 yo with pmhx of htn, hl, pad, cva (no residual deficits), copd, dm, mgus, esthesioneuroblastoma treated with radiation therapy, chronic anemia recently worsened s/p recent GIB last month who p/w sob/weakness and noted to be in DKA with pna, hospital course now complicated by episode of SVT. SVT, resolved - self-limited episode in setting of recovering pna/dka. no recurrence on tele - preserved EF. started dilt 60 mg po q6h for suppression, changed to long acting. Patient with lvh and mod MS will likely not tolerate prolonged rapid HR 's. - atach vs. atypical flutter with h/o prior CVA (details of etiology/work up at that time unknown). patient with h/o recent gib and significant anemia. discussed with pmd, not thought to be safe for AC or ASA at this time. If anemia stabilizes and patient becomes candidate for AC or ASA can consider outpatient monitoring to assess for recurrence. htn -overall stable. patient is a diabetic and had been on lisinopril as outpatient. currently on hold due to steve. renal following. cva/pad - con't statin. not currently candidate for asa due to recent gib and anemia. resume if/when safe. mild asc ao dilation - cont bp control DKA/pna/steve - ongoing mgm't per pmd, ID, renal. - renal function continues to improve.
--- NOTE | 2017-08-11 11:28 | PN ---
Progress Note, Physician Chief Complaint: Mr Chen says he is feeling much better today. Says he feels like he can swallow normal food. No cp, sob, n/v. - Current Medication List Current Medications: Active Medications Albuterol Sulfate (Ventolin 0.083% Nebulizer Soln -) 1 amp NEB Q4H PRN PRN Reason: SHORT OF BREATH/WHEEZING Atorvastatin Calcium (Lipitor -) 10 mg PO HS [facility] Last Admin: 08/10/17 23:10 Dose: 10 mg Diltiazem HCl (Cardizem Cd -) 240 mg PO DAILY [facility] Last Admin: 08/11/17 10:53 Dose: 240 mg Ferrous Sulfate (Feosol -) 325 mg PO DAILY@0800 [facility] Last Admin: 08/11/17 10:52 Dose: 325 mg Fluconazole (Diflucan -) 100 mg PO DAILY [facility] Stop: 08/12/17 10:01 Insulin Aspart (Novolog Vial Sliding Scale -) 1 vial SQ ACHS [facility] PRN Reason: Protocol Last Admin: 08/11/17 06:08 Dose: Not Given Insulin Detemir (Levemir Vial) 6 units SQ HS [facility] Last Admin: 08/10/17 23:11 Dose: 6 units Lactobacillus Acidophilus (Bacid -) 1 tab PO DAILY [facility] Last Admin: 08/11/17 10:52 Dose: 1 tab Magnesium Oxide (Mag-Ox -) 400 mg PO BID [facility] Last Admin: 08/11/17 10:53 Dose: 400 mg Nystatin (Nystatin Oral Suspension -) 500,000 units PO Q6HPO [facility] Last Admin: 08/11/17 06:08 Dose: 500,000 units Polyethylene Glycol (Miralax (For Daily Use) -) 17 gm PO DAILY [facility] Last Admin: 08/11/17 10:54 Dose: 17 gm Timolol Maleate (Timoptic 0.5%) 1 drop OU DAILY [facility] Last Admin: 08/11/17 10:58 Dose: 1 drop - Objective Vital Signs: Vital Signs Temperature 36.6 C 08/11/17 10:00 Pulse Rate 88 08/11/17 10:00 Respiratory Rate 20 08/11/17 10:00 Blood Pressure 134/59 08/11/17 10:00 O2 Sat by Pulse Oximetry (%) 94 L 08/10/17 21:00 Constitutional: Yes: Well Nourished, No Distress, Calm HENT: Yes: Thrush Cardiovascular: Yes: Regular Rate and Rhythm. No: Gallop, Murmur, Rub Respiratory: Yes: Regular, CTA Bilaterally, On Nasal O2. No: Rales, Rhonchi, Wheezes Gastrointestinal: Yes: Normal Bowel Sounds, Soft. No: Distention, Tenderness Extremities: Yes: WNL Edema: No Labs: CBC, BMP 08/11/17 05:30 08/11/17 05:30 INR, PTT INR 1.11 (0.82-1.09) 08/04/17 05:35 Problem List - Problems (1) DKA (diabetic ketoacidoses) Code(s): E13.10 - OTH DIABETES MELLITUS WITH KETOACIDOSIS WITHOUT COMA Qualifiers: Diabetes mellitus type: type 2 Diabetes mellitus complication detail: without coma Qualified Code(s): E11.10 - Type 2 diabetes mellitus with ketoacidosis without coma (2) Hospital-acquired pneumonia Code(s): J18.9 - PNEUMONIA, UNSPECIFIED ORGANISM (3) Sepsis Code(s): A41.9 - SEPSIS, UNSPECIFIED ORGANISM (4) SHANTA (acute kidney injury) Code(s): N17.9 - ACUTE KIDNEY FAILURE, UNSPECIFIED (5) CKD (chronic kidney disease) Code(s): N18.9 - CHRONIC KIDNEY DISEASE, UNSPECIFIED (6) Diabetes mellitus Code(s): E11.9 - TYPE 2 DIABETES MELLITUS WITHOUT COMPLICATIONS Qualifiers: Diabetes mellitus type: type 2 Diabetes mellitus complication status: with kidney complications Diabetes mellitus complication detail: with chronic kidney disease Diabetes mellitus nursing home insulin use: without nursing home use (7) Hyperlipidemia Code(s): E78.5 - HYPERLIPIDEMIA, UNSPECIFIED (8) Hypertension Code(s): I10 - ESSENTIAL (PRIMARY) HYPERTENSION Qualifiers: Hypertension type: essential hypertension Qualified Code(s): I10 - Essential (primary) hypertension (9) Anemia Code(s): D64.9 - ANEMIA, UNSPECIFIED Qualifiers: Other causes of anemia: acute posthemorrhagic (10) Thrush of mouth and esophagus Code(s): B37.81 - CANDIDAL ESOPHAGITIS; B37.0 - CANDIDAL STOMATITIS Assessment/Plan (1) DKA (diabetic ketoacidoses) Assessment/Plan: -resolved Code(s): E13.10 - OTH DIABETES MELLITUS WITH KETOACIDOSIS WITHOUT COMA Qualifiers: Diabetes mellitus type: type 2 Diabetes mellitus complication detail: without coma Qualified Code(s): E11.10 - Type 2 diabetes mellitus with ketoacidosis without coma (2) Hospital-acquired pneumonia Assessment/Plan: -case d/w ID -antibiotics stopped yesterday -monitor Code(s): J18.9 - PNEUMONIA, UNSPECIFIED ORGANISM (3) Sepsis Assessment/Plan -resolved Code(s): A41.9 - SEPSIS, UNSPECIFIED ORGANISM (4) SHANTA (acute kidney injury) Assessment/Plan: -appreciate nephrology assistance -note reviewed -resolved Code(s): N17.9 - ACUTE KIDNEY FAILURE, UNSPECIFIED (5) CKD (chronic kidney disease) Assessment/Plan: -at baseline Code(s): N18.9 - CHRONIC KIDNEY DISEASE, UNSPECIFIED (6) Diabetes mellitus Assessment/Plan: -diabetic diet -levemir and SSI -endocrinoloyg note reviewed Code(s): E11.9 - TYPE 2 DIABETES MELLITUS WITHOUT COMPLICATIONS Qualifiers: Diabetes mellitus type: type 2 Diabetes mellitus complication status: with kidney complications Diabetes mellitus complication detail: with chronic kidney disease Diabetes mellitus nursing home insulin use: without nursing home use (7) Hyperlipidemia Assessment/Plan: -continue lipitor Code(s): E78.5 - HYPERLIPIDEMIA, UNSPECIFIED (8) Hypertension Assessment/Plan: -controlled -lisinopril stopped secondary to renal function -currently on diltazem Code(s): I10 - ESSENTIAL (PRIMARY) HYPERTENSION Qualifiers: Hypertension type: essential hypertension Qualified Code(s): I10 - Essential (primary) hypertension (10) Tachycardia -continue diltiazem (11) Anemia -iron deficient -receiving IV iron (12) Thrush -still with thrush -diflucan added Dispo -possible discharge to SNF on Wednesday
--- NOTE | 2017-08-11 11:48 | PN ---
Progress Note (short form) - Note Progress Note: Denies any complaints Apetite improving Vital Signs Period Temp Pulse Resp BP Sys/Sy Pulse Ox Last 24 Hr 98 F-98.9 F 67-88 16-20 121-137/56-62 94 PE: Awake ,alert Neck: Supple, No JVD HEENT: EOMI Lungs: CTA Abd: Benign CVS: S1S2 Ext: No edema Neuro: No focal deficit CMP Sodium 140 mmol/L (136-145) 08/11/17 05:30 Potassium 4.4 mmol/L (3.5-5.1) 08/11/17 05:30 Chloride 100 mmol/L (98-107) 08/11/17 05:30 Carbon Dioxide 32 mmol/L (21-32) 08/11/17 05:30 Anion Gap 8 (8-16) 08/11/17 05:30 BUN 20 mg/dL (7-18) H 08/11/17 05:30 Creatinine 1.3 mg/dL (0.7-1.3) 08/11/17 05:30 Creat Clearance w eGFR 29.09 (>60) 08/03/17 05:00 POC Glucometer 89 UNITS (80-120) 08/11/17 06:07 Random Glucose 86 mg/dL (74-106) D 08/11/17 05:30 Hemoglobin A1c % 7.1 % (4.8-6.0) H 08/02/17 07:00 Lactic Acid 1.6 mmol/L (0.0-2.0) 08/02/17 07:00 Calcium 7.8 mg/dL (8.5-10.1) L 08/11/17 05:30 Phosphorus 2.4 mg/dL (2.5-4.9) L D 08/11/17 05:30 Magnesium 1.9 mg/dL (1.8-2.4) 08/11/17 05:30 Iron 11 ug/dL (38-169) L 08/03/17 05:00 TIBC 225 ug/dL (250-450) L 08/03/17 05:00 Iron Saturation 5 % (15-55) L 08/03/17 05:00 Ferritin 85.737 ng/ml (16.4-293.9) 08/03/17 05:00 Total Bilirubin 0.3 mg/dL (0.2-1.0) D 08/03/17 05:00 AST 11 U/L (15-37) L 08/03/17 05:00 ALT 10 U/L (12-78) L 08/03/17 05:00 Alkaline Phosphatase 88 U/L (45-117) 08/03/17 05:00 Creatine Kinase 41 IU/L (39-308) 08/01/17 21:40 Troponin I 0.03 ng/ml (0.00-0.05) D 08/01/17 21:40 B-Natriuretic Peptide 2491.06 pg/ml (5-450) H 08/01/17 21:40 Total Protein 5.1 g/dl (6.4-8.2) L 08/03/17 05:00 Albumin 2.2 g/dl (3.4-5.0) L 08/03/17 05:00 Current Medications Generic Name Dose Route Start Last Admin Trade Name Freq PRN Reason Stop Dose Admin Albuterol Sulfate 1 amp 08/10/17 11:29 Ventolin 0.083% Nebulizer Soln - NEB Q4H PRN SHORT OF BREATH/WHEEZING Atorvastatin Calcium 10 mg 08/10/17 22:00 08/10/17 23:10 Lipitor - PO 10 mg HS [facility] Administration Diltiazem HCl 240 mg 08/07/17 10:00 08/11/17 10:53 Cardizem Cd - PO 240 mg DAILY [facility] Administration Ferrous Sulfate 325 mg 08/11/17 08:00 08/11/17 10:52 Feosol - PO 325 mg DAILY@0800 [facility] Administration Fluconazole 100 mg 08/11/17 11:15 Diflucan - PO 08/12/17 10:01 DAILY [facility] Insulin Aspart 1 vial 08/03/17 22:00 08/11/17 06:08 Novolog Vial Sliding Scale - SQ Not Given ACHS [facility] Protocol Insulin Detemir 6 units 08/05/17 22:00 08/10/17 23:11 Levemir Vial SQ 6 units HS [facility] Administration Lactobacillus Acidophilus 1 tab 08/11/17 10:00 08/11/17 10:52 Bacid - PO 1 tab DAILY [facility] Administration Magnesium Oxide 400 mg 08/09/17 22:00 08/11/17 10:53 Mag-Ox - PO 400 mg BID [facility] Administration Nystatin 500,000 units 08/06/17 18:00 08/11/17 06:08 Nystatin Oral Suspension - PO 500,000 units Q6HPO [facility] Administration Polyethylene Glycol 17 gm 08/10/17 14:30 08/11/17 10:54 Miralax (For Daily Use) - PO 17 gm DAILY [facility] Administration Timolol Maleate 1 drop 08/11/17 10:00 08/11/17 10:58 Timoptic 0.5% OU 1 drop DAILY [facility] Administration AP: T2DM with Hyperglycemia ?DKA SHANTA COPD Anemia Mild acidosis resolved. Cr 1.4 Acetone trace positive Levemir 6 units daily at HS Increase Novolog SS coverage BGM QACHS and at 3 a.m. Electrolyte replacement as necessary Will need to go home on Insulin as he came in with DKA W/U a outpt to decide if he need to be on Insulin on the care home Will f/u Problem List - Problems (1) SHANTA (acute kidney injury) Code(s): N17.9 - ACUTE KIDNEY FAILURE, UNSPECIFIED (2) DKA (diabetic ketoacidoses) Code(s): E13.10 - OTH DIABETES MELLITUS WITH KETOACIDOSIS WITHOUT COMA Qualifiers: Diabetes mellitus type: type 2 Diabetes mellitus complication detail: without coma Qualified Code(s): E11.10 - Type 2 diabetes mellitus with ketoacidosis without coma (3) Diabetes mellitus Code(s): E11.9 - TYPE 2 DIABETES MELLITUS WITHOUT COMPLICATIONS Qualifiers: Diabetes mellitus type: type 2 Diabetes mellitus complication status: with kidney complications Diabetes mellitus complication detail: with chronic kidney disease Diabetes mellitus medical terminologist insulin use: without care home use
--- NOTE | 2017-08-11 12:27 | PN ---
Progress Note (short form) - Note Progress Note: Renal follow up for SHANTA on CKD Pt seen and examined at the bedside awake and alert tolerating oral diet well making urine denies any sob, chest pain, abd pain, N/V/D Vital Signs Temperature 98 F 08/11/17 10:00 Pulse Rate 88 08/11/17 10:00 Respiratory Rate 20 08/11/17 10:00 Blood Pressure 134/59 08/11/17 10:00 O2 Sat by Pulse Oximetry (%) 94 L 08/10/17 21:00 Intake & Output 08/08/17 08/09/17 08/10/17 08/11/17 23:59 23:59 23:59 23:59 Intake Total 200 1330 720 370 Output Total 2400 1150 1850 1700 Balance -2200 180 -1130 -1330 NAD dec BS at lung bases no LE edema CBC, BMP 08/11/17 05:30 08/11/17 05:30 Current Medications Albuterol Sulfate (Ventolin 0.083% Nebulizer Soln -) 1 amp NEB Q4H PRN PRN Reason: SHORT OF BREATH/WHEEZING Atorvastatin Calcium (Lipitor -) 10 mg PO HS [facility] Last Admin: 08/10/17 23:10 Dose: 10 mg Diltiazem HCl (Cardizem Cd -) 240 mg PO DAILY [facility] Last Admin: 08/11/17 10:53 Dose: 240 mg Ferrous Sulfate (Feosol -) 325 mg PO DAILY@0800 [facility] Last Admin: 08/11/17 10:52 Dose: 325 mg Fluconazole (Diflucan -) 100 mg PO DAILY [facility] Stop: 08/12/17 10:01 Insulin Aspart (Novolog Vial Sliding Scale -) 1 vial SQ HS [facility] PRN Reason: Protocol Insulin Aspart (Novolog Vial Sliding Scale -) 1 vial SQ TIDAC [facility] PRN Reason: Protocol Insulin Detemir (Levemir Vial) 6 units SQ HS [facility] Last Admin: 08/10/17 23:11 Dose: 6 units Lactobacillus Acidophilus (Bacid -) 1 tab PO DAILY [facility] Last Admin: 08/11/17 10:52 Dose: 1 tab Magnesium Oxide (Mag-Ox -) 400 mg PO BID [facility] Last Admin: 08/11/17 10:53 Dose: 400 mg Nystatin (Nystatin Oral Suspension -) 500,000 units PO Q6HPO [facility] Last Admin: 08/11/17 06:08 Dose: 500,000 units Polyethylene Glycol (Miralax (For Daily Use) -) 17 gm PO DAILY [facility] Last Admin: 08/11/17 10:54 Dose: 17 gm Timolol Maleate (Timoptic 0.5%) 1 drop OU DAILY [facility] Last Admin: 08/11/17 10:58 Dose: 1 drop 76 year old gentleman with PMhx of CKD Stage 3 (baseline Cr ~1.4), Hypertension , DM who presented to the ED with complaints of fatigue and anorexia and found to have DKA and SHANTA with Cr of 2.9. #Acute Kidney Injury on CKD Renal function stable off IVF would continue to trend BUN/Cr avoid nephrotoxins #DKA Blood glucose now controlled Anion gap closed continue insulin as per Endocrine #Anemia iron saturation is 5% will give IV Venofer 100mg x 1 start oral iron as well no indication for transfusion Tomás Al DO
[2017-08-11] MEDS: FLUCONAZOLE 100 MG TABLET (UD) PO SCH (12:41)
[2017-08-11] MEDS ORDERED: IRON SUCROSE INJECTION 100 MG in SODIUM CHLORIDE 95 ML IVPB ONE (13:00)
--- NOTE | 2017-08-11 13:38 | PN ---
Progress Note, Physician History of Present Illness: doing well some worry about black tongue according to the patient has it from the time it seems he got radiation - Current Medication List Current Medications: Active Medications Albuterol Sulfate (Ventolin 0.083% Nebulizer Soln -) 1 amp NEB Q4H PRN PRN Reason: SHORT OF BREATH/WHEEZING Atorvastatin Calcium (Lipitor -) 10 mg PO HS [facility] Last Admin: 08/10/17 23:10 Dose: 10 mg Diltiazem HCl (Cardizem Cd -) 240 mg PO DAILY [facility] Last Admin: 08/11/17 10:53 Dose: 240 mg Ferrous Sulfate (Feosol -) 325 mg PO BID [facility] Fluconazole (Diflucan -) 100 mg PO DAILY [facility] Stop: 08/12/17 10:01 Last Admin: 08/11/17 12:41 Dose: 100 mg Insulin Aspart (Novolog Vial Sliding Scale -) 1 vial SQ HS [facility] PRN Reason: Protocol Insulin Aspart (Novolog Vial Sliding Scale -) 1 vial SQ TIDAC [facility] PRN Reason: Protocol Insulin Detemir (Levemir Vial) 6 units SQ HS [facility] Last Admin: 08/10/17 23:11 Dose: 6 units Lactobacillus Acidophilus (Bacid -) 1 tab PO DAILY [facility] Last Admin: 08/11/17 10:52 Dose: 1 tab Magnesium Oxide (Mag-Ox -) 400 mg PO BID [facility] Last Admin: 08/11/17 10:53 Dose: 400 mg Nystatin (Nystatin Oral Suspension -) 500,000 units PO Q6HPO [facility] Last Admin: 08/11/17 12:40 Dose: 500,000 units Polyethylene Glycol (Miralax (For Daily Use) -) 17 gm PO DAILY [facility] Last Admin: 08/11/17 10:54 Dose: 17 gm Timolol Maleate (Timoptic 0.5%) 1 drop OU DAILY [facility] Last Admin: 08/11/17 10:58 Dose: 1 drop - Objective Vital Signs: Vital Signs Temperature 98 F 08/11/17 10:00 Pulse Rate 88 08/11/17 10:00 Respiratory Rate 20 08/11/17 10:00 Blood Pressure 134/59 08/11/17 10:00 O2 Sat by Pulse Oximetry (%) 94 L 08/10/17 21:00 Constitutional: Yes: No Distress, Calm Eyes: Yes: Other (black coating on the tongue noted) Cardiovascular: Yes: Regular Rate and Rhythm Respiratory: Yes: Regular, CTA Bilaterally Gastrointestinal: Yes: Normal Bowel Sounds, Soft Musculoskeletal: Yes: WNL Extremities: Yes: WNL Neurological: Yes: Alert, Oriented Psychiatric: Yes: Alert, Oriented Labs: CBC, BMP 08/11/17 05:30 08/11/17 05:30 INR, PTT INR 1.11 (0.82-1.09) 08/04/17 05:35 Assessment/Plan Problem List - Problems (1) DKA (diabetic ketoacidoses) Assessment/Plan: Code(s): E13.10 - OTH DIABETES MELLITUS WITH KETOACIDOSIS WITHOUT COMA Qualifiers: Diabetes mellitus type: type 2 Diabetes mellitus complication detail: without coma Qualified Code(s): E11.10 - Type 2 diabetes mellitus with ketoacidosis without coma (2) Sepsis Assessment/Plan: Code(s): A41.9 - SEPSIS, UNSPECIFIED ORGANISM (3) Hospital-acquired pneumonia Assessment/Plan: Code(s): J18.9 - PNEUMONIA, UNSPECIFIED ORGANISM (4) Hyperkalemia Assessment/Plan: Code(s): E87.5 - HYPERKALEMIA (5) CKD (chronic kidney disease) Assessment/Plan: Code(s): N18.9 - CHRONIC KIDNEY DISEASE, UNSPECIFIED (6) Hypertension Assessment/Plan: Code(s): I10 - ESSENTIAL (PRIMARY) HYPERTENSION Qualifiers: Hypertension type: essential hypertension Qualified Code(s): I10 - Essential (primary) hypertension (7) Hyperlipidemia Assessment/Plan: Code(s): E78.5 - HYPERLIPIDEMIA, UNSPECIFIED patients wbc now near normal plan stable off of abx continue to [facility] physio rest as per primary team no worries about black tongue tongue hygeine can give oral nystatin mouth wash
[2017-08-11] MEDS: FERROUS SO4 325 MG TABLET (FP) PO SCH (22:35)
[2017-08-11] MEDS: ATORVASTATIN CA 10 MG TABLET (FP) PO SCH (22:35)
[2017-08-11] MEDS: INSULIN DETEMIR 100 UNITS/ML MDV SQ SCH (22:37)
[2017-08-12] MEDS: INSULIN SLIDING SCALE (NOVOLOG) 1 VIAL SQ SCH ×4 (06:32→21:46)
[2017-08-12] MEDS: NYSTATIN 500,000 UNITS/5 ML SUSPENSION PO SCH ×3 (06:32→17:21)
[2017-08-12 07:56] LABS: BASO % 0.3 % (0-2.0); EOS % 1.4 % (0-4.5); HEMATOCRIT 29.5 % (35.4-49); HEMOGLOBIN 9.7 GM/dL (11.7-16.9); LYMPH % 5.5 % (8-40); MEAN CELL VOLUME 90.9 fl (80-96); MEAN PLT VOLUME 8.6 fl (7.5-11.1); MONO % 6.8 % (3.8-10.2); PLATELET COUNT 366 K/MM3 (134-434); RBC 3.24 M/mm3 (4.00-5.60); RDW 14.8 % (11.9-15.9); WHITE BLOOD COUNT 10.5 K/mm3 (4.0-10.0)
[2017-08-12 08:26] LABS: ANION GAP 4 (8-16); BLOOD UREA NITROGEN 17 mg/dL (7-18); CALCIUM 7.7 mg/dL (8.5-10.1); CHLORIDE 101 mmol/L (98-107); CO2 34 mmol/L (21-32); CREATININE 1.3 mg/dL (0.7-1.3); GLUCOSE,RANDOM 72 mg/dL (74-106); MAGNESIUM 2.2 mg/dL (1.8-2.4); PHOSPHOROUS 2.3 mg/dL (2.5-4.9); POTASSIUM 5.4 mmol/L (3.5-5.1); SODIUM 139 mmol/L (136-145)
--- NOTE | 2017-08-12 08:43 | PN ---
Progress Note (short form) - Note Progress Note: Dr. Phillips to document today. Hopefully D/C Wednesday to [facility]. Problem List - Problems (1) Pneumonia Code(s): J18.9 - PNEUMONIA, UNSPECIFIED ORGANISM (2) SHANTA (acute kidney injury) Code(s): N17.9 - ACUTE KIDNEY FAILURE, UNSPECIFIED (3) DKA (diabetic ketoacidoses) Code(s): E13.10 - OTH DIABETES MELLITUS WITH KETOACIDOSIS WITHOUT COMA Qualifiers: Diabetes mellitus type: type 2 Diabetes mellitus complication detail: without coma Qualified Code(s): E11.10 - Type 2 diabetes mellitus with ketoacidosis without coma (4) Oral thrush Code(s): B37.0 - CANDIDAL STOMATITIS (5) CKD (chronic kidney disease) stage 3, GFR 30-59 ml/min Code(s): N18.3 - CHRONIC KIDNEY DISEASE, STAGE 3 (MODERATE) (6) Diabetes mellitus Code(s): E11.9 - TYPE 2 DIABETES MELLITUS WITHOUT COMPLICATIONS Qualifiers: Diabetes mellitus type: type 2 Diabetes mellitus complication status: with kidney complications Diabetes mellitus complication detail: with chronic kidney disease Diabetes mellitus fci insulin use: without termite exterminator use
--- NOTE | 2017-08-12 08:57 | PN ---
Progress Note (short form) - Note Progress Note: Denies any complaints Apetite good as per patient. Vital Signs Period Temp Pulse Resp BP Sys/Sy Pulse Ox Last 24 Hr 98 F-98.4 F 68-88 16-20 115-134/55-64 94-99 PE: Awake ,alert Neck: Supple, No JVD HEENT: EOMI Lungs: CTA Abd: Benign CVS: S1S2 Ext: No edema Neuro: No focal deficit CMP Sodium 139 mmol/L (136-145) 08/12/17 07:00 Potassium 5.4 mmol/L (3.5-5.1) H D 08/12/17 07:00 Chloride 101 mmol/L (98-107) 08/12/17 07:00 Carbon Dioxide 34 mmol/L (21-32) H 08/12/17 07:00 Anion Gap 4 (8-16) L 08/12/17 07:00 BUN 17 mg/dL (7-18) 08/12/17 07:00 Creatinine 1.3 mg/dL (0.7-1.3) 08/12/17 07:00 Creat Clearance w eGFR 29.09 (>60) 08/03/17 05:00 POC Glucometer 79 UNITS (80-120) 08/12/17 06:19 Random Glucose 72 mg/dL (74-106) L 08/12/17 07:00 Hemoglobin A1c % 7.1 % (4.8-6.0) H 08/02/17 07:00 Lactic Acid 1.6 mmol/L (0.0-2.0) 08/02/17 07:00 Calcium 7.7 mg/dL (8.5-10.1) L 08/12/17 07:00 Phosphorus 2.3 mg/dL (2.5-4.9) L 08/12/17 07:00 Magnesium 2.2 mg/dL (1.8-2.4) 08/12/17 07:00 Iron 11 ug/dL (38-169) L 08/03/17 05:00 TIBC 225 ug/dL (250-450) L 08/03/17 05:00 Iron Saturation 5 % (15-55) L 08/03/17 05:00 Ferritin 85.737 ng/ml (16.4-293.9) 08/03/17 05:00 Total Bilirubin 0.3 mg/dL (0.2-1.0) D 08/03/17 05:00 AST 11 U/L (15-37) L 08/03/17 05:00 ALT 10 U/L (12-78) L 08/03/17 05:00 Alkaline Phosphatase 88 U/L (45-117) 08/03/17 05:00 Creatine Kinase 41 IU/L (39-308) 08/01/17 21:40 Troponin I 0.03 ng/ml (0.00-0.05) D 08/01/17 21:40 B-Natriuretic Peptide 2491.06 pg/ml (5-450) H 08/01/17 21:40 Total Protein 5.1 g/dl (6.4-8.2) L 08/03/17 05:00 Albumin 2.2 g/dl (3.4-5.0) L 08/03/17 05:00 Current Medications Generic Name Dose Route Start Last Admin Trade Name Freq PRN Reason Stop Dose Admin Albuterol Sulfate 1 amp 08/10/17 11:29 Ventolin 0.083% Nebulizer Soln - NEB Q4H PRN SHORT OF BREATH/WHEEZING Atorvastatin Calcium 10 mg 08/10/17 22:00 08/11/17 22:35 Lipitor - PO 10 mg HS [facility] Administration Diltiazem HCl 240 mg 08/07/17 10:00 08/11/17 10:53 Cardizem Cd - PO 240 mg DAILY [facility] Administration Ferrous Sulfate 325 mg 08/11/17 22:00 08/11/17 22:35 Feosol - PO 325 mg BID [facility] Administration Fluconazole 100 mg 08/11/17 11:15 08/11/17 12:41 Diflucan - PO 08/12/17 10:01 100 mg DAILY [facility] Administration Insulin Aspart 1 vial 08/11/17 22:00 08/11/17 22:37 Novolog Vial Sliding Scale - SQ 3 units HS [facility] Administration Protocol Insulin Aspart 1 vial 08/11/17 16:30 08/12/17 06:32 Novolog Vial Sliding Scale - SQ Not Given TIDAC [facility] Protocol Insulin Detemir 6 units 08/05/17 22:00 08/11/17 22:37 Levemir Vial SQ 6 units HS [facility] Administration Lactobacillus Acidophilus 1 tab 08/11/17 10:00 08/11/17 10:52 Bacid - PO 1 tab DAILY [facility] Administration Magnesium Oxide 400 mg 08/09/17 22:00 08/11/17 22:34 Mag-Ox - PO 400 mg BID [facility] Administration Nystatin 500,000 units 08/06/17 18:00 08/12/17 06:32 Nystatin Oral Suspension - PO 500,000 units Q6HPO [facility] Administration Polyethylene Glycol 17 gm 08/10/17 14:30 08/11/17 10:54 Miralax (For Daily Use) - PO 17 gm DAILY [facility] Administration Timolol Maleate 1 drop 08/11/17 10:00 08/11/17 10:58 Timoptic 0.5% OU 1 drop DAILY [facility] Administration AP: T2DM with Hyperglycemia ?DKA SHANTA COPD Anemia Mild acidosis resolved. Cr 1.4 Acetone trace positive Continue Levemir 6 units daily at HS Novolog SS coverage BGM QACHS and at 3 a.m. Electrolyte replacement as necessary Will need to go home on Insulin as he came in with DKA W/U a outpt to decide if he need to be on Insulin on the watermelon inspector Will f/u Problem List - Problems (1) SHANTA (acute kidney injury) Code(s): N17.9 - ACUTE KIDNEY FAILURE, UNSPECIFIED (2) DKA (diabetic ketoacidoses) Code(s): E13.10 - OTH DIABETES MELLITUS WITH KETOACIDOSIS WITHOUT COMA Qualifiers: Diabetes mellitus type: type 2 Diabetes mellitus complication detail: without coma Qualified Code(s): E11.10 - Type 2 diabetes mellitus with ketoacidosis without coma (3) Diabetes mellitus Code(s): E11.9 - TYPE 2 DIABETES MELLITUS WITHOUT COMPLICATIONS Qualifiers: Diabetes mellitus type: type 2 Diabetes mellitus complication status: with kidney complications Diabetes mellitus complication detail: with chronic kidney disease Diabetes mellitus watermelon inspector insulin use: without detention use
[2017-08-12] MEDS: LACTOBACILLUS ACIDOPHILUS 1 EACH TAB (FP) PO SCH (09:06)
[2017-08-12] MEDS: POLYETHYLENE GLYCOL 3350 119 GM BTL PO SCH (09:06)
[2017-08-12] MEDS: MAGNESIUM OXIDE 400 MG TABLET (FP) PO SCH ×2 (09:07→21:46)
[2017-08-12] MEDS: FLUCONAZOLE 100 MG TABLET (UD) PO SCH (09:07)
[2017-08-12] MEDS: FERROUS SO4 325 MG TABLET (FP) PO SCH ×2 (09:07→21:45)
[2017-08-12] MEDS: TIMOLOL 0.5% OPHTHALMIC SOL 5 ML BOTTLE OU SCH (09:08)
--- NOTE | 2017-08-12 10:48 | PN ---
Progress Note (short form) - Note Progress Note: s: no cp sob palps dizzy o: Vital Signs Period Temp Pulse Resp BP Sys/Sy Pulse Ox Last 24 Hr 98.2 F-98.4 F 68-74 16-18 115-130/55-64 99-99 NAD, cachectic, calm JVD flat, neck supple ctab nl effort rrr nl s1, s2 2/6 sys murmur at apex + bs soft nt nd. no le e/c/c aaox3 no jaundice, diaphoresis Current Medications Generic Name Dose Route Start Last Admin Trade Name Freq PRN Reason Stop Dose Admin Albuterol Sulfate 1 amp 08/10/17 11:29 Ventolin 0.083% Nebulizer Soln - NEB Q4H PRN SHORT OF BREATH/WHEEZING Atorvastatin Calcium 10 mg 08/10/17 22:00 08/11/17 22:35 Lipitor - PO 10 mg HS [facility] Administration Diltiazem HCl 240 mg 08/07/17 10:00 08/12/17 09:06 Cardizem Cd - PO 240 mg DAILY [facility] Administration Ferrous Sulfate 325 mg 08/11/17 22:00 08/12/17 09:07 Feosol - PO 325 mg BID [facility] Administration Insulin Aspart 1 vial 08/11/17 22:00 08/11/17 22:37 Novolog Vial Sliding Scale - SQ 3 units HS [facility] Administration Protocol Insulin Aspart 1 vial 08/11/17 16:30 08/12/17 06:32 Novolog Vial Sliding Scale - SQ Not Given TIDAC [facility] Protocol Insulin Detemir 6 units 08/05/17 22:00 08/11/17 22:37 Levemir Vial SQ 6 units HS [facility] Administration Lactobacillus Acidophilus 1 tab 08/11/17 10:00 08/12/17 09:06 Bacid - PO 1 tab DAILY [facility] Administration Magnesium Oxide 400 mg 08/09/17 22:00 08/12/17 09:07 Mag-Ox - PO 400 mg BID [facility] Administration Nystatin 500,000 units 08/06/17 18:00 08/12/17 06:32 Nystatin Oral Suspension - PO 500,000 units Q6HPO [facility] Administration Polyethylene Glycol 17 gm 08/10/17 14:30 08/12/17 09:06 Miralax (For Daily Use) - PO 17 gm DAILY [facility] Administration Timolol Maleate 1 drop 08/11/17 10:00 08/12/17 09:08 Timoptic 0.5% OU 1 drop DAILY [facility] Administration CBC, BMP 08/12/17 07:00 08/12/17 07:00 EKG aflutter with variable block, [address]-t wave ab chest ct: RUL RML and bilateral Lower lobe patchy infiltrates c/w pna. asc aorta 4.5 cm. over distended stomach echo 06/2017: mod lvh. nl lv fn. nl rv size/fn. 1+ lae. mod-sev mac with mod ms. 1+ mr. nl rvsp. 1+ ao dilation A/P 76 yo with pmhx of htn, hl, pad, cva (no residual deficits), copd, dm, mgus, esthesioneuroblastoma treated with radiation therapy, chronic anemia recently worsened s/p recent GIB last month who p/w sob/weakness and noted to be in DKA with pna, hospital course now complicated by episode of SVT. SVT, resolved - self-limited episode in setting of recovering pna/dka. no recurrence on tele - preserved EF. started dilt 60 mg po q6h for suppression, changed to long acting. Patient with lvh and mod MS will likely not tolerate prolonged rapid HR 's. - atach vs. atypical flutter with h/o prior CVA (details of etiology/work up at that time unknown). patient with h/o recent gib and significant anemia. discussed with pmd, not thought to be safe for AC or ASA at this time. If anemia stabilizes and patient becomes candidate for AC or ASA can consider outpatient monitoring to assess for recurrence. htn -overall stable. patient is a diabetic and had been on lisinopril as outpatient. currently on hold due to steve. renal following. cva/pad - con't statin. not currently candidate for asa due to recent gib and anemia. resume if/when safe. mild asc ao dilation - cont bp control DKA/pna/steve -improved cardiac de la o stable for dc
--- NOTE | 2017-08-12 11:32 | PN ---
Progress Note, Physician Chief Complaint: Mr Chen says he is feeling well. No cp, sob, n/v. Says he is constipated. - Current Medication List Current Medications: Active Medications Albuterol Sulfate (Ventolin 0.083% Nebulizer Soln -) 1 amp NEB Q4H PRN PRN Reason: SHORT OF BREATH/WHEEZING Atorvastatin Calcium (Lipitor -) 10 mg PO HS [facility] Last Admin: 08/11/17 22:35 Dose: 10 mg Diltiazem HCl (Cardizem Cd -) 240 mg PO DAILY [facility] Last Admin: 08/12/17 09:06 Dose: 240 mg Docusate Sodium (Colace -) 100 mg PO BID [facility] Ferrous Sulfate (Feosol -) 325 mg PO BID [facility] Last Admin: 08/12/17 09:07 Dose: 325 mg Insulin Aspart (Novolog Vial Sliding Scale -) 1 vial SQ HS [facility] PRN Reason: Protocol Last Admin: 08/11/17 22:37 Dose: 3 units Insulin Aspart (Novolog Vial Sliding Scale -) 1 vial SQ TIDAC [facility] PRN Reason: Protocol Last Admin: 08/12/17 06:32 Dose: Not Given Insulin Detemir (Levemir Vial) 6 units SQ HS [facility] Last Admin: 08/11/17 22:37 Dose: 6 units Lactobacillus Acidophilus (Bacid -) 1 tab PO DAILY [facility] Last Admin: 08/12/17 09:06 Dose: 1 tab Magnesium Oxide (Mag-Ox -) 400 mg PO BID [facility] Last Admin: 08/12/17 09:07 Dose: 400 mg Nystatin (Nystatin Oral Suspension -) 500,000 units PO Q6HPO [facility] Last Admin: 08/12/17 06:32 Dose: 500,000 units Polyethylene Glycol (Miralax (For Daily Use) -) 17 gm PO DAILY [facility] Last Admin: 08/12/17 09:06 Dose: 17 gm Timolol Maleate (Timoptic 0.5%) 1 drop OU DAILY [facility] Last Admin: 08/12/17 09:08 Dose: 1 drop - Objective Vital Signs: Vital Signs Temperature 36.9 C 08/12/17 06:00 Pulse Rate 72 08/12/17 06:00 Respiratory Rate 18 08/12/17 09:00 Blood Pressure 115/55 08/12/17 06:00 O2 Sat by Pulse Oximetry (%) 99 08/12/17 09:00 Constitutional: Yes: Well Nourished, No Distress, Calm Cardiovascular: Yes: Regular Rate and Rhythm. No: Gallop, Murmur, Rub Respiratory: Yes: Regular, CTA Bilaterally. No: Rales, Rhonchi, Wheezes Gastrointestinal: Yes: Normal Bowel Sounds, Soft. No: Distention, Tenderness Extremities: Yes: WNL Edema: No Labs: CBC, BMP 08/12/17 07:00 08/12/17 07:00 INR, PTT INR 1.11 (0.82-1.09) 08/04/17 05:35 Problem List - Problems (1) DKA (diabetic ketoacidoses) Code(s): E13.10 - OTH DIABETES MELLITUS WITH KETOACIDOSIS WITHOUT COMA Qualifiers: Diabetes mellitus type: type 2 Diabetes mellitus complication detail: without coma Qualified Code(s): E11.10 - Type 2 diabetes mellitus with ketoacidosis without coma (2) Hospital-acquired pneumonia Code(s): J18.9 - PNEUMONIA, UNSPECIFIED ORGANISM (3) Sepsis Code(s): A41.9 - SEPSIS, UNSPECIFIED ORGANISM (4) SHANTA (acute kidney injury) Code(s): N17.9 - ACUTE KIDNEY FAILURE, UNSPECIFIED (5) CKD (chronic kidney disease) Code(s): N18.9 - CHRONIC KIDNEY DISEASE, UNSPECIFIED (6) Diabetes mellitus Code(s): E11.9 - TYPE 2 DIABETES MELLITUS WITHOUT COMPLICATIONS Qualifiers: Diabetes mellitus type: type 2 Diabetes mellitus complication status: with kidney complications Diabetes mellitus complication detail: with chronic kidney disease Diabetes mellitus usp insulin use: without usp use (7) Hyperlipidemia Code(s): E78.5 - HYPERLIPIDEMIA, UNSPECIFIED (8) Hypertension Code(s): I10 - ESSENTIAL (PRIMARY) HYPERTENSION Qualifiers: Hypertension type: essential hypertension Qualified Code(s): I10 - Essential (primary) hypertension (9) Anemia Code(s): D64.9 - ANEMIA, UNSPECIFIED Qualifiers: Other causes of anemia: acute posthemorrhagic (10) Thrush of mouth and esophagus Code(s): B37.81 - CANDIDAL ESOPHAGITIS; B37.0 - CANDIDAL STOMATITIS (11) Constipation Code(s): K59.00 - CONSTIPATION, UNSPECIFIED (12) Hyperkalemia Code(s): E87.5 - HYPERKALEMIA Assessment/Plan (1) DKA (diabetic ketoacidoses) Assessment/Plan: -resolved Code(s): E13.10 - OTH DIABETES MELLITUS WITH KETOACIDOSIS WITHOUT COMA Qualifiers: Diabetes mellitus type: type 2 Diabetes mellitus complication detail: without coma Qualified Code(s): E11.10 - Type 2 diabetes mellitus with ketoacidosis without coma (2) Hospital-acquired pneumonia Assessment/Plan: -finished full course antibiotics Code(s): J18.9 - PNEUMONIA, UNSPECIFIED ORGANISM (3) Sepsis Assessment/Plan -resolved Code(s): A41.9 - SEPSIS, UNSPECIFIED ORGANISM (4) SHANTA (acute kidney injury) Assessment/Plan: -appreciate nephrology assistance -note reviewed -resolved Code(s): N17.9 - ACUTE KIDNEY FAILURE, UNSPECIFIED (5) CKD (chronic kidney disease) Assessment/Plan: -at baseline Code(s): N18.9 - CHRONIC KIDNEY DISEASE, UNSPECIFIED (6) Diabetes mellitus Assessment/Plan: -diabetic diet -levemir and SSI -appreciate endocrinology assistance Code(s): E11.9 - TYPE 2 DIABETES MELLITUS WITHOUT COMPLICATIONS Qualifiers: Diabetes mellitus type: type 2 Diabetes mellitus complication status: with kidney complications Diabetes mellitus complication detail: with chronic kidney disease Diabetes mellitus usp insulin use: without truck terminal manager use (7) Hyperlipidemia Assessment/Plan: -continue lipitor Code(s): E78.5 - HYPERLIPIDEMIA, UNSPECIFIED (8) Hypertension Assessment/Plan: -controlled -lisinopril stopped secondary to renal function -currently on diltiazem Code(s): I10 - ESSENTIAL (PRIMARY) HYPERTENSION Qualifiers: Hypertension type: essential hypertension Qualified Code(s): I10 - Essential (primary) hypertension (10) Tachycardia -continue diltiazem (11) Anemia -iron deficient -receiving IV iron (12) Thrush -continue diflucan (13) Hyperkalemia -nephrology following and await recommendations (14) Constipation -will give soap suds enema (avoid Fleets secondary to renal function -add lactulose -? if nephrology will give kayexalate Dispo -possible discharge to SNF on Wednesday
--- NOTE | 2017-08-12 12:42 | PN ---
Progress Note, Physician History of Present Illness: stable working with physio no complaints - Current Medication List Current Medications: Active Medications Albuterol Sulfate (Ventolin 0.083% Nebulizer Soln -) 1 amp NEB Q4H PRN PRN Reason: SHORT OF BREATH/WHEEZING Atorvastatin Calcium (Lipitor -) 10 mg PO HS [facility] Last Admin: 08/11/17 22:35 Dose: 10 mg Diltiazem HCl (Cardizem Cd -) 240 mg PO DAILY [facility] Last Admin: 08/12/17 09:06 Dose: 240 mg Docusate Sodium (Colace -) 100 mg PO BID [facility] Ferrous Sulfate (Feosol -) 325 mg PO BID [facility] Last Admin: 08/12/17 09:07 Dose: 325 mg Insulin Aspart (Novolog Vial Sliding Scale -) 1 vial SQ HS [facility] PRN Reason: Protocol Last Admin: 08/11/17 22:37 Dose: 3 units Insulin Aspart (Novolog Vial Sliding Scale -) 1 vial SQ TIDAC [facility] PRN Reason: Protocol Last Admin: 08/12/17 12:22 Dose: 3 units Insulin Detemir (Levemir Vial) 6 units SQ HS [facility] Last Admin: 08/11/17 22:37 Dose: 6 units Lactobacillus Acidophilus (Bacid -) 1 tab PO DAILY [facility] Last Admin: 08/12/17 09:06 Dose: 1 tab Magnesium Oxide (Mag-Ox -) 400 mg PO BID [facility] Last Admin: 08/12/17 09:07 Dose: 400 mg Nystatin (Nystatin Oral Suspension -) 500,000 units PO Q6HPO [facility] Last Admin: 08/12/17 06:32 Dose: 500,000 units Polyethylene Glycol (Miralax (For Daily Use) -) 17 gm PO DAILY [facility] Last Admin: 08/12/17 09:06 Dose: 17 gm Timolol Maleate (Timoptic 0.5%) 1 drop OU DAILY [facility] Last Admin: 08/12/17 09:08 Dose: 1 drop - Objective Vital Signs: Vital Signs Temperature 98.4 F 08/12/17 06:00 Pulse Rate 72 08/12/17 06:00 Respiratory Rate 18 08/12/17 10:00 Blood Pressure 115/55 08/12/17 06:00 O2 Sat by Pulse Oximetry (%) 99 08/12/17 09:00 Constitutional: Yes: No Distress, Calm HENT: Yes: Other (black coating improving on the tongue) Cardiovascular: Yes: Regular Rate and Rhythm Respiratory: Yes: Regular, CTA Bilaterally Gastrointestinal: Yes: Normal Bowel Sounds, Soft Musculoskeletal: Yes: WNL Extremities: Yes: WNL Neurological: Yes: Alert, Oriented Psychiatric: Yes: Alert, Oriented Labs: CBC, BMP 08/12/17 07:00 08/12/17 07:00 INR, PTT INR 1.11 (0.82-1.09) 08/04/17 05:35 Assessment/Plan Problem List - Problems (1) DKA (diabetic ketoacidoses) Assessment/Plan: Code(s): E13.10 - OTH DIABETES MELLITUS WITH KETOACIDOSIS WITHOUT COMA Qualifiers: Diabetes mellitus type: type 2 Diabetes mellitus complication detail: without coma Qualified Code(s): E11.10 - Type 2 diabetes mellitus with ketoacidosis without coma (2) Sepsis Assessment/Plan: Code(s): A41.9 - SEPSIS, UNSPECIFIED ORGANISM (3) Hospital-acquired pneumonia Assessment/Plan: Code(s): J18.9 - PNEUMONIA, UNSPECIFIED ORGANISM (4) Hyperkalemia Assessment/Plan: Code(s): E87.5 - HYPERKALEMIA (5) CKD (chronic kidney disease) Assessment/Plan: Code(s): N18.9 - CHRONIC KIDNEY DISEASE, UNSPECIFIED (6) Hypertension Assessment/Plan: Code(s): I10 - ESSENTIAL (PRIMARY) HYPERTENSION Qualifiers: Hypertension type: essential hypertension Qualified Code(s): I10 - Essential (primary) hypertension (7) Hyperlipidemia Assessment/Plan: Code(s): E78.5 - HYPERLIPIDEMIA, UNSPECIFIED patients wbc now near normal plan stable continue oral hygeine rest as per primary team
[2017-08-12] MEDS: DOCUSATE SODIUM 100 MG CAPSULE (FP) PO SCH ×2 (14:27→21:45)
[2017-08-12] MEDS ORDERED: SODIUM POLYSTYRENE SULFONATE 15 GM/60 ML BOTTLE PO ONE (14:50)
--- NOTE | 2017-08-12 14:54 | PN ---
Progress Note, Physician Chief Complaint: The patient seen in his room.No chest pain, Less short of breath. Over all feeling better. Has constipation. Maintains good urine output. Seems comfortable. - Current Medication List Current Medications: Active Medications Albuterol Sulfate (Ventolin 0.083% Nebulizer Soln -) 1 amp NEB Q4H PRN PRN Reason: SHORT OF BREATH/WHEEZING Atorvastatin Calcium (Lipitor -) 10 mg PO HS [facility] Last Admin: 08/11/17 22:35 Dose: 10 mg Diltiazem HCl (Cardizem Cd -) 240 mg PO DAILY [facility] Last Admin: 08/12/17 09:06 Dose: 240 mg Docusate Sodium (Colace -) 100 mg PO BID [facility] Last Admin: 08/12/17 14:27 Dose: 100 mg Ferrous Sulfate (Feosol -) 325 mg PO BID [facility] Last Admin: 08/12/17 09:07 Dose: 325 mg Insulin Aspart (Novolog Vial Sliding Scale -) 1 vial SQ HS [facility] PRN Reason: Protocol Last Admin: 08/11/17 22:37 Dose: 3 units Insulin Aspart (Novolog Vial Sliding Scale -) 1 vial SQ TIDAC [facility] PRN Reason: Protocol Last Admin: 08/12/17 12:22 Dose: 3 units Insulin Detemir (Levemir Vial) 6 units SQ HS [facility] Last Admin: 08/11/17 22:37 Dose: 6 units Lactobacillus Acidophilus (Bacid -) 1 tab PO DAILY [facility] Last Admin: 08/12/17 09:06 Dose: 1 tab Magnesium Oxide (Mag-Ox -) 400 mg PO BID [facility] Last Admin: 08/12/17 09:07 Dose: 400 mg Nystatin (Nystatin Oral Suspension -) 500,000 units PO Q6HPO [facility] Last Admin: 08/12/17 14:27 Dose: 500,000 units Polyethylene Glycol (Miralax (For Daily Use) -) 17 gm PO DAILY [facility] Last Admin: 08/12/17 09:06 Dose: 17 gm Sodium Polystyrene Sulfonate (Kayexalate -) 30 gm PO ONCE ONE Stop: 08/12/17 14:51 Timolol Maleate (Timoptic 0.5%) 1 drop OU DAILY [facility] Last Admin: 08/12/17 09:08 Dose: 1 drop - Objective Vital Signs: Vital Signs Temperature 98.7 F 08/12/17 10:00 Pulse Rate 94 H 02/15/18 10:00 Respiratory Rate 18 08/12/17 10:00 Blood Pressure 137/62 08/12/17 10:00 O2 Sat by Pulse Oximetry (%) 99 08/12/17 09:00 Constitutional: Yes: Anxious, Pallor Eyes: Yes: Conjunctiva Clear HENT: Yes: Normocephalic Neck: Yes: Trachea Midline Cardiovascular: Yes: S1, S2 Respiratory: Yes: CTA Bilaterally Gastrointestinal: Yes: Normal Bowel Sounds, Soft Edema: No Neurological: Yes: Alert, Oriented Labs: CBC, BMP 08/12/17 07:00 08/12/17 07:00 INR, PTT INR 1.11 (0.82-1.09) 08/04/17 05:35 Problem List - Problems (1) SHANTA (acute kidney injury) Code(s): N17.9 - ACUTE KIDNEY FAILURE, UNSPECIFIED (2) Anemia Code(s): D64.9 - ANEMIA, UNSPECIFIED Qualifiers: Other causes of anemia: acute posthemorrhagic (3) DKA (diabetic ketoacidoses) Code(s): E13.10 - OTH DIABETES MELLITUS WITH KETOACIDOSIS WITHOUT COMA Qualifiers: Diabetes mellitus type: type 2 Diabetes mellitus complication detail: without coma Qualified Code(s): E11.10 - Type 2 diabetes mellitus with ketoacidosis without coma (4) Sepsis Code(s): A41.9 - SEPSIS, UNSPECIFIED ORGANISM (5) CKD (chronic kidney disease) stage 3, GFR 30-59 ml/min Code(s): N18.3 - CHRONIC KIDNEY DISEASE, STAGE 3 (MODERATE) (6) Diabetes mellitus Code(s): E11.9 - TYPE 2 DIABETES MELLITUS WITHOUT COMPLICATIONS Qualifiers: Diabetes mellitus type: type 2 Diabetes mellitus complication status: with kidney complications Diabetes mellitus complication detail: with chronic kidney disease Diabetes mellitus custodial insulin use: without equipment operator intermodal yard use (7) Hyperlipidemia Code(s): E78.5 - HYPERLIPIDEMIA, UNSPECIFIED (8) Hypertension Code(s): I10 - ESSENTIAL (PRIMARY) HYPERTENSION Qualifiers: Hypertension type: essential hypertension Qualified Code(s): I10 - Essential (primary) hypertension Assessment/Plan 76 year old gentleman with PMhx of CKD Stage 3 (baseline Cr ~1.4), Hypertension , DM who presented to the hospital with complaints of fatigue and anorexia and found to have DKA and SHANTA with Cr of 2.9. Acute Kidney Injury : Renal function stable.At his baseline. Serum Sodium improved. 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 Baseline Cr ~1.4 Anemia. Last Hgb 9.7.Stable. Will monitor the renal functions with you. Thank you. Danielle Hood MD
--- NOTE | 2017-08-12 15:20 | PN ---
Progress Note (short form) - Note Progress Note: Reports feeling fine. No acute events overnight. Intake & Output 08/09/17 08/10/17 08/11/17 08/12/17 23:59 23:59 23:59 23:59 Intake Total 1330 720 670 500 Output Total 1150 1850 1900 625 Balance 180 -1130 -1230 -125 Last Vital Signs Temp Pulse Resp BP Pulse Ox 98.7 F 94 H 18 137/62 99 08/12/17 10:00 08/12/17 10:00 08/12/17 10:00 08/12/17 10:00 08/12/17 09:00 Active Medications Albuterol Sulfate (Ventolin 0.083% Nebulizer Soln -) 1 amp NEB Q4H PRN PRN Reason: SHORT OF BREATH/WHEEZING Atorvastatin Calcium (Lipitor -) 10 mg PO HS [facility] Last Admin: 08/11/17 22:35 Dose: 10 mg Diltiazem HCl (Cardizem Cd -) 240 mg PO DAILY [facility] Last Admin: 08/12/17 09:06 Dose: 240 mg Docusate Sodium (Colace -) 100 mg PO BID [facility] Last Admin: 08/12/17 14:27 Dose: 100 mg Ferrous Sulfate (Feosol -) 325 mg PO BID [facility] Last Admin: 08/12/17 09:07 Dose: 325 mg Insulin Aspart (Novolog Vial Sliding Scale -) 1 vial SQ HS [facility] PRN Reason: Protocol Last Admin: 08/11/17 22:37 Dose: 3 units Insulin Aspart (Novolog Vial Sliding Scale -) 1 vial SQ TIDAC [facility] PRN Reason: Protocol Last Admin: 08/12/17 12:22 Dose: 3 units Insulin Detemir (Levemir Vial) 6 units SQ HS [facility] Last Admin: 08/11/17 22:37 Dose: 6 units Lactobacillus Acidophilus (Bacid -) 1 tab PO DAILY [facility] Last Admin: 08/12/17 09:06 Dose: 1 tab Magnesium Oxide (Mag-Ox -) 400 mg PO BID [facility] Last Admin: 08/12/17 09:07 Dose: 400 mg Nystatin (Nystatin Oral Suspension -) 500,000 units PO Q6HPO [facility] Last Admin: 08/12/17 14:27 Dose: 500,000 units Polyethylene Glycol (Miralax (For Daily Use) -) 17 gm PO DAILY [facility] Last Admin: 08/12/17 09:06 Dose: 17 gm Timolol Maleate (Timoptic 0.5%) 1 drop OU DAILY [facility] Last Admin: 08/12/17 09:08 Dose: 1 drop Constitutional: Yes: Thin, NAD Cardiovascular: Yes: Regular Rate and Rhythm. No: Gallop, Murmur, Rub Respiratory: Yes: diminished BS at the bases Gastrointestinal: Yes: Normal Bowel Sounds, Soft. No: Distention, Tenderness Extremities: Yes: WNL Edema: No Labs: Laboratory Results - last 24 hr 08/11/17 08/11/17 08/12/17 17:33 22:36 02:50 WBC RBC Hgb Hct MCV MCH MCHC RDW Plt Count MPV Neutrophils % Lymphocytes % Monocytes % Eosinophils % Basophils % Sodium Potassium Chloride Carbon Dioxide Anion Gap BUN Creatinine POC Glucometer 338 266 134 Random Glucose Calcium Phosphorus Magnesium 08/12/17 08/12/17 08/12/17 06:19 07:00 07:00 WBC 10.5 H RBC 3.24 L Hgb 9.7 L Hct 29.5 L MCV 90.9 MCH 30.0 MCHC 33.0 RDW 14.8 Plt Count 366 MPV 8.6 Neutrophils % 86.0 H Lymphocytes % 5.5 L D Monocytes % 6.8 Eosinophils % 1.4 Basophils % 0.3 Sodium 139 Potassium 5.4 H D Chloride 101 Carbon Dioxide 34 H Anion Gap 4 L BUN 17 Creatinine 1.3 POC Glucometer 79 Random Glucose 72 L Calcium 7.7 L Phosphorus 2.3 L Magnesium 2.2 08/12/17 12:00 WBC RBC Hgb Hct MCV MCH MCHC RDW Plt Count MPV Neutrophils % Lymphocytes % Monocytes % Eosinophils % Basophils % Sodium Potassium Chloride Carbon Dioxide Anion Gap BUN Creatinine POC Glucometer 232 Random Glucose Calcium Phosphorus Magnesium Problem List - Problems (1) DKA (diabetic ketoacidoses) Code(s): E13.10 - OTH DIABETES MELLITUS WITH KETOACIDOSIS WITHOUT COMA Qualifiers: Diabetes mellitus type: type 2 Diabetes mellitus complication detail: without coma Qualified Code(s): E11.10 - Type 2 diabetes mellitus with ketoacidosis without coma (2) Hospital-acquired pneumonia Code(s): J18.9 - PNEUMONIA, UNSPECIFIED ORGANISM (3) Sepsis Code(s): A41.9 - SEPSIS, UNSPECIFIED ORGANISM (4) SHANTA (acute kidney injury) Code(s): N17.9 - ACUTE KIDNEY FAILURE, UNSPECIFIED (5) CKD (chronic kidney disease) Code(s): N18.9 - CHRONIC KIDNEY DISEASE, UNSPECIFIED (6) Diabetes mellitus Code(s): E11.9 - TYPE 2 DIABETES MELLITUS WITHOUT COMPLICATIONS Qualifiers: Diabetes mellitus type: type 2 Diabetes mellitus complication status: with kidney complications Diabetes mellitus complication detail: with chronic kidney disease Diabetes mellitus long term care pharmacist insulin use: without long term care pharmacist use (7) Hyperlipidemia Code(s): E78.5 - HYPERLIPIDEMIA, UNSPECIFIED (8) Hypertension Code(s): I10 - ESSENTIAL (PRIMARY) HYPERTENSION Qualifiers: Hypertension type: essential hypertension Qualified Code(s): I10 - Essential (primary) hypertension (9) Anemia Code(s): D64.9 - ANEMIA, UNSPECIFIED Qualifiers: Other causes of anemia: acute posthemorrhagic (10) Thrush of mouth and esophagus Code(s): B37.81 - CANDIDAL ESOPHAGITIS; B37.0 - CANDIDAL STOMATITIS (11) Constipation Code(s): K59.00 - CONSTIPATION, UNSPECIFIED (12) Hyperkalemia Code(s): E87.5 - HYPERKALEMIA PLAN: Glycemic control O2 as needed PO as tolerated D/C planning Dr Acosta
--- NOTE | 2017-08-12 15:28 | PN ---
Progress Note (short form) - Note Progress Note: Noted Hyperkalemia: Constipation is a not so uncommon cause for hyperkalemia in patients with CKD. It should resolve with relief of constipation Nevertheless, will give one dose of Kayexelate. Problem List - Problems (1) SHANTA (acute kidney injury) Code(s): N17.9 - ACUTE KIDNEY FAILURE, UNSPECIFIED (2) Anemia Code(s): D64.9 - ANEMIA, UNSPECIFIED Qualifiers: Other causes of anemia: acute posthemorrhagic (3) DKA (diabetic ketoacidoses) Code(s): E13.10 - OTH DIABETES MELLITUS WITH KETOACIDOSIS WITHOUT COMA Qualifiers: Diabetes mellitus type: type 2 Diabetes mellitus complication detail: without coma Qualified Code(s): E11.10 - Type 2 diabetes mellitus with ketoacidosis without coma (4) Sepsis Code(s): A41.9 - SEPSIS, UNSPECIFIED ORGANISM (5) CKD (chronic kidney disease) stage 3, GFR 30-59 ml/min Code(s): N18.3 - CHRONIC KIDNEY DISEASE, STAGE 3 (MODERATE) (6) Diabetes mellitus Code(s): E11.9 - TYPE 2 DIABETES MELLITUS WITHOUT COMPLICATIONS Qualifiers: Diabetes mellitus type: type 2 Diabetes mellitus complication status: with kidney complications Diabetes mellitus complication detail: with chronic kidney disease Diabetes mellitus 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
--- NOTE | 2017-08-12 15:44 | PN ---
Progress Note, ROUTE SERVICE REPRESENTATIVE - Note Progress Note: Selected Entries 08/10/17 08/10/17 08/10/17 10:07 14:36 18:00 Breakfast 25% Lunch 75% Supper 100% Selected Entries 08/11/17 08/11/17 08/11/17 06:00 10:00 11:43 Breakfast Lunch 50% Supper Temperature 98.4 F 98 F 08/11/17 08/11/17 08/11/17 14:13 18:00 22:00 Breakfast Lunch 75% Supper 100% Temperature 98.3 F 98.4 F 98.2 F 08/12/17 08/12/17 08/12/17 06:00 10:00 12:17 Breakfast 75% Lunch 100% Supper Temperature 98.4 F 98.7 F 08/12/17 14:23 Breakfast Lunch Supper Temperature 98.9 F Diflucan added to Nystatin, because of persistent black tongue. Looking a little better today. Continue mouth/tongue care, gently with toothbrush and hold nystatin in mouth for a bit before swallowing to coat tongue. Avoid drinking/eating after Nystatin. Swallowing has improved. Pt eats regular food at home. He was downgraded here due to symptoms of Dysphagia, likely secondary to candiuda. MBS was (-). soft, regular food,ordered with chopped meat with gravy. Supplements between meals. Tongue is still black. h/o radiation tx October 2016 to sinuses- related? Pt reports black tongue is not acute. Case reviewed with Doctors on case. Consider ENT consult?
[2017-08-12] MEDS ORDERED: INSULIN (NOVOLOG) ASPART 100 UNITS/ML 10ML VIAL ONE ×2 (15:56→21:41)
[2017-08-12] MEDS: ATORVASTATIN CA 10 MG TABLET (FP) PO SCH (21:45)
[2017-08-12] MEDS: INSULIN DETEMIR 100 UNITS/ML MDV SQ SCH (21:46)
[2017-08-13] MEDS: NYSTATIN 500,000 UNITS/5 ML SUSPENSION PO SCH ×3 (00:22→11:41)
[2017-08-13] MEDS: INSULIN SLIDING SCALE (NOVOLOG) 1 VIAL SQ SCH ×2 (06:19→11:37)
[2017-08-13 06:48] LABS: BASO % 0.6 % (0-2.0); EOS % 1.3 % (0-4.5); HEMATOCRIT 28.1 % (35.4-49); HEMOGLOBIN 9.3 GM/dL (11.7-16.9); MCH 30.2 pg (25.7-33.7); MCHC 33.2 g/dl (32.0-35.9); MEAN PLT VOLUME 8.8 fl (7.5-11.1); MONO % 7.5 % (3.8-10.2); NEUT % 83.6 % (42.8-82.8); PLATELET COUNT 396 K/MM3 (134-434); RBC 3.09 M/mm3 (4.00-5.60); RDW 14.8 % (11.9-15.9); WHITE BLOOD COUNT 9.9 K/mm3 (4.0-10.0)
[2017-08-13 07:05] LABS: CHLORIDE 100 mmol/L (98-107); SODIUM 139 mmol/L (136-145)
[2017-08-13 07:10] LABS: ANION GAP 3 (8-16); BLOOD UREA NITROGEN 20 mg/dL (7-18); CALCIUM 7.6 mg/dL (8.5-10.1); CO2 36 mmol/L (21-32); CREATININE 1.4 mg/dL (0.7-1.3); GLUCOSE,RANDOM 91 mg/dL (74-106); MAGNESIUM 2.3 mg/dL (1.8-2.4); PHOSPHOROUS 3.5 mg/dL (2.5-4.9)
[2017-08-13] MEDS: POLYETHYLENE GLYCOL 3350 119 GM BTL PO SCH (09:00)
[2017-08-13] MEDS: MAGNESIUM OXIDE 400 MG TABLET (FP) PO SCH (09:01)
[2017-08-13] MEDS: DOCUSATE SODIUM 100 MG CAPSULE (FP) PO SCH (09:01)
[2017-08-13] MEDS: LACTOBACILLUS ACIDOPHILUS 1 EACH TAB (FP) PO SCH (09:01)
[2017-08-13] MEDS: FERROUS SO4 325 MG TABLET (FP) PO SCH (09:01)
[2017-08-13] MEDS: TIMOLOL 0.5% OPHTHALMIC SOL 5 ML BOTTLE OU SCH (09:04)
--- NOTE | 2017-08-13 09:27 | PN ---
Progress Note (short form) - Note Progress Note: Denies any complaints Apetite good as per patient. Blood sugar fluctuating No hypos Vital Signs Period Temp Pulse Resp BP Sys/Sy Pulse Ox Last 24 Hr 98.4 F-98.9 F 65-94 104-137/43-64 97 PE: Awake ,alert Neck: Supple, No JVD HEENT: EOMI Lungs: CTA Abd: Benign CVS: S1S2 Ext: No edema Neuro: No focal deficit CMP Sodium 139 mmol/L (136-145) 08/13/17 05:30 Potassium 5.0 mmol/L (3.5-5.1) 08/13/17 05:30 Chloride 100 mmol/L (98-107) 08/13/17 05:30 Carbon Dioxide 36 mmol/L (21-32) H 08/13/17 05:30 Anion Gap 3 (8-16) L 08/13/17 05:30 BUN 20 mg/dL (7-18) H 08/13/17 05:30 Creatinine 1.4 mg/dL (0.7-1.3) H 08/13/17 05:30 Creat Clearance w eGFR 29.09 (>60) 08/03/17 05:00 POC Glucometer 105 UNITS (80-120) 08/13/17 05:48 Random Glucose 91 mg/dL (74-106) D 08/13/17 05:30 Hemoglobin A1c % 7.1 % (4.8-6.0) H 08/02/17 07:00 Lactic Acid 1.6 mmol/L (0.0-2.0) 08/02/17 07:00 Calcium 7.6 mg/dL (8.5-10.1) L 08/13/17 05:30 Phosphorus 3.5 mg/dL (2.5-4.9) D 08/13/17 05:30 Magnesium 2.3 mg/dL (1.8-2.4) 08/13/17 05:30 Iron 11 ug/dL (38-169) L 08/03/17 05:00 TIBC 225 ug/dL (250-450) L 08/03/17 05:00 Iron Saturation 5 % (15-55) L 08/03/17 05:00 Ferritin 85.737 ng/ml (16.4-293.9) 08/03/17 05:00 Total Bilirubin 0.3 mg/dL (0.2-1.0) D 08/03/17 05:00 AST 11 U/L (15-37) L 08/03/17 05:00 ALT 10 U/L (12-78) L 08/03/17 05:00 Alkaline Phosphatase 88 U/L (45-117) 08/03/17 05:00 Creatine Kinase 41 IU/L (39-308) 08/01/17 21:40 Troponin I 0.03 ng/ml (0.00-0.05) D 08/01/17 21:40 B-Natriuretic Peptide 2491.06 pg/ml (5-450) H 08/01/17 21:40 Total Protein 5.1 g/dl (6.4-8.2) L 08/03/17 05:00 Albumin 2.2 g/dl (3.4-5.0) L 08/03/17 05:00 Current Medications Generic Name Dose Route Start Last Admin Trade Name Freq PRN Reason Stop Dose Admin Albuterol Sulfate 1 amp 08/10/17 11:29 Ventolin 0.083% Nebulizer Soln - NEB Q4H PRN SHORT OF BREATH/WHEEZING Atorvastatin Calcium 10 mg 08/10/17 22:00 08/12/17 21:45 Lipitor - PO 10 mg HS SELVIN Administration Diltiazem HCl 240 mg 08/07/17 10:00 08/13/17 09:01 Cardizem Cd - PO 240 mg DAILY SELVIN Administration Docusate Sodium 100 mg 08/12/17 12:00 08/13/17 09:01 Colace - PO 100 mg BID SELVIN Administration Ferrous Sulfate 325 mg 08/11/17 22:00 08/13/17 09:01 Feosol - PO 325 mg BID SELVIN Administration Insulin Aspart 1 vial 08/11/17 22:00 08/12/17 21:46 Novolog Vial Sliding Scale - SQ 5 units HS SELVIN Administration Protocol Insulin Aspart 1 vial 08/11/17 16:30 08/13/17 06:19 Novolog Vial Sliding Scale - SQ Not Given [facility] Protocol Insulin Detemir 6 units 08/05/17 22:00 08/12/17 21:46 Levemir Vial SQ 6 units HS SELVIN Administration Lactobacillus Acidophilus 1 tab 08/11/17 10:00 08/13/17 09:01 Bacid - PO 1 tab DAILY SELVIN Administration Magnesium Oxide 400 mg 08/09/17 22:00 08/13/17 09:01 Mag-Ox - PO 400 mg BID SELVIN Administration Nystatin 500,000 units 08/06/17 18:00 08/13/17 06:19 Nystatin Oral Suspension - PO 500,000 units Q6HPO SELVIN Administration Polyethylene Glycol 17 gm 08/10/17 14:30 08/13/17 09:00 Miralax (For Daily Use) - PO Not Given DAILY SELVIN Timolol Maleate 1 drop 08/11/17 10:00 08/13/17 09:04 Timoptic 0.5% OU 1 drop DAILY SELVIN Administration AP: T2DM with Hyperglycemia ?DKA SHANTA COPD Anemia Mild acidosis resolved. Cr 1.4 Acetone trace positive Continue Levemir 6 units daily at HS Novolog SS coverage BGM QACHS and at 3 a.m. 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 Will f/u Problem List - Problems (1) SHANTA (acute kidney injury) Code(s): N17.9 - ACUTE KIDNEY FAILURE, UNSPECIFIED (2) DKA (diabetic ketoacidoses) Code(s): E13.10 - OTH DIABETES MELLITUS WITH KETOACIDOSIS WITHOUT COMA Qualifiers: Diabetes mellitus type: type 2 Diabetes mellitus complication detail: without coma Qualified Code(s): E11.10 - Type 2 diabetes mellitus with ketoacidosis without coma (3) Diabetes mellitus Code(s): E11.9 - TYPE 2 DIABETES MELLITUS WITHOUT COMPLICATIONS Qualifiers: Diabetes mellitus type: type 2 Diabetes mellitus complication status: with kidney complications Diabetes mellitus complication detail: with chronic kidney disease Diabetes mellitus usp insulin use: without usp use
--- NOTE | 2017-08-13 09:55 | PN ---
Progress Note (short form) - Note Progress Note: Dr. Phillips to document today. Problem List - Problems (1) Pneumonia Code(s): J18.9 - PNEUMONIA, UNSPECIFIED ORGANISM (2) SHANTA (acute kidney injury) Code(s): N17.9 - ACUTE KIDNEY FAILURE, UNSPECIFIED (3) DKA (diabetic ketoacidoses) Code(s): E13.10 - OTH DIABETES MELLITUS WITH KETOACIDOSIS WITHOUT COMA Qualifiers: Diabetes mellitus type: type 2 Diabetes mellitus complication detail: without coma Qualified Code(s): E11.10 - Type 2 diabetes mellitus with ketoacidosis without coma (4) Oral thrush Code(s): B37.0 - CANDIDAL STOMATITIS (5) CKD (chronic kidney disease) stage 3, GFR 30-59 ml/min Code(s): N18.3 - CHRONIC KIDNEY DISEASE, STAGE 3 (MODERATE) (6) Diabetes mellitus Code(s): E11.9 - TYPE 2 DIABETES MELLITUS WITHOUT COMPLICATIONS Qualifiers: Diabetes mellitus type: type 2 Diabetes mellitus complication status: with kidney complications Diabetes mellitus complication detail: with chronic kidney disease Diabetes mellitus mcc insulin use: without intermediate accountant use
--- NOTE | 2017-08-13 10:29 | PN ---
Progress Note, Physician Chief Complaint: The patient seen in his room.No chest pain, Less short of breath. Over all feeling better. Maintains good urine output. Seems comfortable. - Current Medication List Current Medications: Active Medications Albuterol Sulfate (Ventolin 0.083% Nebulizer Soln -) 1 amp NEB Q4H PRN PRN Reason: SHORT OF BREATH/WHEEZING Atorvastatin Calcium (Lipitor -) 10 mg PO HS [facility] Last Admin: 08/12/17 21:45 Dose: 10 mg Diltiazem HCl (Cardizem Cd -) 240 mg PO DAILY [facility] Last Admin: 08/13/17 09:01 Dose: 240 mg Docusate Sodium (Colace -) 100 mg PO BID [facility] Last Admin: 08/13/17 09:01 Dose: 100 mg Ferrous Sulfate (Feosol -) 325 mg PO BID [facility] Last Admin: 08/13/17 09:01 Dose: 325 mg Insulin Aspart (Novolog Vial Sliding Scale -) 1 vial SQ HS [facility] PRN Reason: Protocol Last Admin: 08/12/17 21:46 Dose: 5 units Insulin Aspart (Novolog Vial Sliding Scale -) 1 vial SQ TIDAC [facility] PRN Reason: Protocol Last Admin: 08/13/17 06:19 Dose: Not Given Insulin Detemir (Levemir Vial) 6 units SQ HS [facility] Last Admin: 08/12/17 21:46 Dose: 6 units Lactobacillus Acidophilus (Bacid -) 1 tab PO DAILY [facility] Last Admin: 08/13/17 09:01 Dose: 1 tab Magnesium Oxide (Mag-Ox -) 400 mg PO BID [facility] Last Admin: 08/13/17 09:01 Dose: 400 mg Nystatin (Nystatin Oral Suspension -) 500,000 units PO Q6HPO [facility] Last Admin: 08/13/17 06:19 Dose: 500,000 units Polyethylene Glycol (Miralax (For Daily Use) -) 17 gm PO DAILY [facility] Last Admin: 08/13/17 09:00 Dose: Not Given Timolol Maleate (Timoptic 0.5%) 1 drop OU DAILY [facility] Last Admin: 08/13/17 09:04 Dose: 1 drop - Objective Vital Signs: Vital Signs Temperature 98.4 F 08/13/17 06:00 Pulse Rate 83 08/13/17 06:00 Respiratory Rate 18 08/13/17 06:00 Blood Pressure 120/58 08/13/17 06:00 O2 Sat by Pulse Oximetry (%) 97 08/12/17 21:00 Constitutional: Yes: No Distress, Calm HENT: Yes: Atraumatic, Normocephalic Neck: Yes: Trachea Midline Cardiovascular: Yes: S1, S2 Respiratory: Yes: Regular, Diminished Gastrointestinal: Yes: Normal Bowel Sounds, Soft Edema: No Labs: CBC, BMP 08/13/17 05:30 08/13/17 05:30 INR, PTT INR 1.11 (0.82-1.09) 08/04/17 05:35 Problem List - Problems (1) SHANTA (acute kidney injury) Code(s): N17.9 - ACUTE KIDNEY FAILURE, UNSPECIFIED (2) Anemia Code(s): D64.9 - ANEMIA, UNSPECIFIED Qualifiers: Other causes of anemia: acute posthemorrhagic (3) DKA (diabetic ketoacidoses) Code(s): E13.10 - OTH DIABETES MELLITUS WITH KETOACIDOSIS WITHOUT COMA Qualifiers: Diabetes mellitus type: type 2 Diabetes mellitus complication detail: without coma Qualified Code(s): E11.10 - Type 2 diabetes mellitus with ketoacidosis without coma (4) Sepsis Code(s): A41.9 - SEPSIS, UNSPECIFIED ORGANISM (5) CKD (chronic kidney disease) stage 3, GFR 30-59 ml/min Code(s): N18.3 - CHRONIC KIDNEY DISEASE, STAGE 3 (MODERATE) (6) Diabetes mellitus Code(s): E11.9 - TYPE 2 DIABETES MELLITUS WITHOUT COMPLICATIONS Qualifiers: Diabetes mellitus type: type 2 Diabetes mellitus complication status: with kidney complications Diabetes mellitus complication detail: with chronic kidney disease Diabetes mellitus senior care insulin use: without senior care use (7) Hyperlipidemia Code(s): E78.5 - HYPERLIPIDEMIA, UNSPECIFIED (8) Hypertension Code(s): I10 - ESSENTIAL (PRIMARY) HYPERTENSION Qualifiers: Hypertension type: essential hypertension Qualified Code(s): I10 - Essential (primary) hypertension Assessment/Plan 76 year old gentleman with PMhx of CKD Stage 3 (baseline Cr ~1.4), Hypertension , DM who presented to the hospital with complaints of fatigue and anorexia and found to have DKA and SHANTA with Cr of 2.9. Acute Kidney Injury : Renal function stable.At his baseline. Serum Sodium improved. 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 Baseline Cr ~1.4 Anemia. Last Hgb 9.7.Stable. serum K normal . Received Kayexelate yesterday. Will monitor the renal functions with you. Thank you. Danielle Hood MD
--- NOTE | 2017-08-13 10:55 | DS ---
Physical Examination Vital Signs: Vital Signs Temperature 36.9 C 08/13/17 06:00 Pulse Rate 83 08/13/17 06:00 Respiratory Rate 18 08/13/17 06:00 Blood Pressure 120/58 08/13/17 06:00 O2 Sat by Pulse Oximetry (%) 97 08/12/17 21:00 Constitutional: Yes: No Distress, Calm, Thin Cardiovascular: Yes: Regular Rate and Rhythm. No: Gallop, Murmur, Rub Respiratory: Yes: Regular, CTA Bilaterally. No: Rales, Rhonchi, Wheezes Gastrointestinal: Yes: Normal Bowel Sounds, Soft. No: Distention, Tenderness Extremities: Yes: WNL Edema: No Labs: CBC, BMP 08/13/17 05:30 08/13/17 05:30 Discharge Summary Reason For Visit: UNCONTROLLED DIABETIC MELITUS,HOSPITAL- Current Active Problems SHANTA (acute kidney injury) (Acute) Anemia (Acute) Aortic aneurysm (Acute) Constipation (Acute) DKA (diabetic ketoacidoses) (Acute) DVT prophylaxis (Acute) Hospital-acquired pneumonia (Acute) Hyperkalemia (Acute) Hypernatremia (Acute) Oral thrush (Acute) Pneumonia (Acute) Sepsis (Acute) Thrush of mouth and esophagus (Acute) Hospital Course: (1) DKA (diabetic ketoacidoses) Code(s): E13.10 - OTH DIABETES MELLITUS WITH KETOACIDOSIS WITHOUT COMA Qualifiers: Diabetes mellitus type: type 2 Diabetes mellitus complication detail: without coma Qualified Code(s): E11.10 - Type 2 diabetes mellitus with ketoacidosis without coma (2) Hospital-acquired pneumonia Code(s): J18.9 - PNEUMONIA, UNSPECIFIED ORGANISM (3) Sepsis Code(s): A41.9 - SEPSIS, UNSPECIFIED ORGANISM (4) SHANTA (acute kidney injury) Code(s): N17.9 - ACUTE KIDNEY FAILURE, UNSPECIFIED (5) CKD (chronic kidney disease) Code(s): N18.9 - CHRONIC KIDNEY DISEASE, UNSPECIFIED (6) Diabetes mellitus Code(s): E11.9 - TYPE 2 DIABETES MELLITUS WITHOUT COMPLICATIONS Qualifiers: Diabetes mellitus type: type 2 Diabetes mellitus complication status: with kidney complications Diabetes mellitus complication detail: with chronic kidney disease Diabetes mellitus group home insulin use: without termite exterminator helper use (7) Hyperlipidemia Code(s): E78.5 - HYPERLIPIDEMIA, UNSPECIFIED (8) Hypertension Code(s): I10 - ESSENTIAL (PRIMARY) HYPERTENSION Qualifiers: Hypertension type: essential hypertension Qualified Code(s): I10 - Essential (primary) hypertension (9) Anemia Code(s): D64.9 - ANEMIA, UNSPECIFIED Qualifiers: Other causes of anemia: acute posthemorrhagic (10) Thrush of mouth and esophagus Code(s): B37.81 - CANDIDAL ESOPHAGITIS; B37.0 - CANDIDAL STOMATITIS (11) Constipation Code(s): K59.00 - CONSTIPATION, UNSPECIFIED (12) Hyperkalemia Code(s): E87.5 - HYPERKALEMIA Mr Chen is a very pleasant 76 year old male who comes in with DKA secondary to pneumonia with sepsis. He was admitted to the ICU and seen by endocrinology. He was started on an insulin gtt and hydrated, the DKA resolved and he was transitioned to levemir. He did well with this and will continue as an outpatient with endocrine follow up. He was also seen by ID and finished a full course of antibiotics. Because of the sepsis he had SHANTA on CKD, nephrology was consulted. After hydration this resolved and he is now at baseline. Because of the broad spectrum antibiotics he developed thrush, he was treated with diflucan and nystatin swish and swallow. He finished a full course. Currently he is doing well and stable for discharge to SNF. 37 minutes spent in preparation of this discharge Condition: Stable - Instructions Diet, Activity, Other Instructions: diabetic diet. Up with assistance. Further activity per PT at SNF. Referrals: Curt Nunez MD [Primary Care Provider] - Andrez Mendez MD [Staff Physician] - Danielle Hood MD [Staff Physician] - Ethan Everett MD [Staff Physician] - [facility]position: [facility] - Home Medications Comprehensive Discharge Medication List: Ambulatory Orders Simvastatin [Zocor -] 20 mg PO HS 05/11/14 Timolol 0.5% [Timoptic] 1 drop OU DAILY 05/11/14 Ferrous Sulfate [Feosol] 325 mg PO DAILY #30 tablet 07/25/17 Albuterol 0.083% Nebulizer Petra [Ventolin 0.083% Nebulizer Soln -] 1 amp NEB Q4H PRN amp 08/13/17 Diltiazem Cd [Cardizem Cd -] 240 mg PO DAILY cap.cd.24h 08/13/17 Docusate Sodium [Colace -] 100 mg PO BID capsule 08/13/17 Insulin (Levemir) [Levemir Vial] 6 units SQ HS ml 08/13/17 Insulin Sliding Scale [Novolog Vial Sliding Scale -] 1 vial SQ HS units Insulin Sliding Scale [Novolog Vial Sliding Scale -] 1 vial SQ TIDAC units Magnesium Oxide [Mag-Ox -] 400 mg PO BID tablet 08/13/17 Polyethylene Glycol 3350 [Miralax 119 gm Btl -] 17 gm PO DAILY bottle 08/13/17
[2017-08-13] MEDS ORDERED: INSULIN (NOVOLOG) ASPART 100 UNITS/ML 10ML VIAL ONE (11:03)
--- NOTE | 2017-08-13 11:04 | PN ---
Progress Note (short form) - Note Progress Note: s: no cp sob palps dizzy o: Vital Signs Period Temp Pulse Resp BP Sys/Sy Pulse Ox Last 24 Hr 98.4 F-98.9 F 65-83 16-18 104-125/43-64 97 NAD, cachectic, calm JVD flat, neck supple ctab nl effort rrr nl s1, s2 2/6 sys murmur at apex + bs soft nt nd. no le e/c/c aaox3 no jaundice, diaphoresis Current Medications Generic Name Dose Route Start Last Admin Trade Name Freq PRN Reason Stop Dose Admin Albuterol Sulfate 1 amp 08/10/17 11:29 Ventolin 0.083% Nebulizer Soln - NEB Q4H PRN SHORT OF BREATH/WHEEZING Atorvastatin Calcium 10 mg 08/10/17 22:00 08/12/17 21:45 Lipitor - PO 10 mg HS SELVIN Administration Diltiazem HCl 240 mg 08/07/17 10:00 08/13/17 09:01 Cardizem Cd - PO 240 mg DAILY SELVIN Administration Docusate Sodium 100 mg 08/12/17 12:00 08/13/17 09:01 Colace - PO 100 mg BID SELVIN Administration Ferrous Sulfate 325 mg 08/11/17 22:00 08/13/17 09:01 Feosol - PO 325 mg BID SELVIN Administration Insulin Aspart 1 vial 08/11/17 22:00 08/12/17 21:46 Novolog Vial Sliding Scale - SQ 5 units HS SELVIN Administration Protocol Insulin Aspart 1 vial 08/11/17 16:30 08/13/17 06:19 Novolog Vial Sliding Scale - SQ Not Given [facility] Protocol Insulin Detemir 6 units 08/05/17 22:00 08/12/17 21:46 Levemir Vial SQ 6 units HS SELVIN Administration Lactobacillus Acidophilus 1 tab 08/11/17 10:00 08/13/17 09:01 Bacid - PO 1 tab DAILY SEL[facility]IN Administration Magnesium Oxide 400 mg 08/09/17 22:00 08/13/17 09:01 Mag-Ox - PO 400 mg BID SELVIN Administration Nystatin 500,000 units 08/06/17 18:00 08/13/17 06:19 Nystatin Oral Suspension - PO 500,000 units Q6HPO SELVIN Administration Polyethylene Glycol 17 gm 08/10/17 14:30 08/13/17 09:00 Miralax (For Daily Use) - PO Not Given DAILY SELVIN Timolol Maleate 1 drop 08/11/17 10:00 08/13/17 09:04 Timoptic 0.5% OU 1 drop DAILY SELVIN Administration CBC, BMP 08/13/17 05:30 08/13/17 05:30 EKG aflutter with variable block, [address]-t wave ab chest ct: RUL RML and bilateral Lower lobe patchy infiltrates c/w pna. asc aorta 4.5 cm. over distended stomach echo 06/2017: mod lvh. nl lv fn. nl rv size/fn. 1+ lae. mod-sev mac with mod ms. 1+ mr. nl rvsp. 1+ ao dilation A/P 76 yo with pmhx of htn, hl, pad, cva (no residual deficits), copd, dm, mgus, esthesioneuroblastoma treated with radiation therapy, chronic anemia recently worsened s/p recent GIB last month who p/w sob/weakness and noted to be in DKA with pna, hospital course now complicated by episode of SVT. SVT, resolved - self-limited episode in setting of recovering pna/dka. no recurrence on tele - preserved EF. started dilt 60 mg po q6h for suppression, changed to long acting. Patient with lvh and mod MS will likely not tolerate prolonged rapid HR 's. - atach vs. atypical flutter with h/o prior CVA (details of etiology/work up at that time unknown). patient with h/o recent gib and significant anemia. discussed with pmd, not thought to be safe for AC or ASA at this time. If anemia stabilizes and patient becomes candidate for AC or ASA can consider outpatient monitoring to assess for recurrence. htn -overall stable. patient is a diabetic and had been on lisinopril as outpatient. currently on hold due to steve. renal following. cva/pad - con't statin. not currently candidate for asa due to recent gib and anemia. resume if/when safe. mild asc ao dilation - cont bp control DKA/pna/steve -improved cardiac de la o stable for dc
--- NOTE | 2017-08-13 14:04 | PN ---
Progress Note, Physician History of Present Illness: stable no new issues patient tolerating diet black tongue coating improving - Current Medication List Current Medications: Active Medications Albuterol Sulfate (Ventolin 0.083% Nebulizer Soln -) 1 amp NEB Q4H PRN PRN Reason: SHORT OF BREATH/WHEEZING Atorvastatin Calcium (Lipitor -) 10 mg PO HS [facility] Last Admin: 08/12/17 21:45 Dose: 10 mg Diltiazem HCl (Cardizem Cd -) 240 mg PO DAILY [facility] Last Admin: 08/13/17 09:01 Dose: 240 mg Docusate Sodium (Colace -) 100 mg PO BID [facility] Last Admin: 08/13/17 09:01 Dose: 100 mg Ferrous Sulfate (Feosol -) 325 mg PO BID [facility] Last Admin: 08/13/17 09:01 Dose: 325 mg Insulin Aspart (Novolog Vial Sliding Scale -) 1 vial SQ HS [facility] PRN Reason: Protocol Last Admin: 08/12/17 21:46 Dose: 5 units Insulin Aspart (Novolog Vial Sliding Scale -) 1 vial SQ TIDAC [facility] PRN Reason: Protocol Last Admin: 08/13/17 11:37 Dose: 3 units Insulin Detemir (Levemir Vial) 6 units SQ HS [facility] Last Admin: 08/12/17 21:46 Dose: 6 units Lactobacillus Acidophilus (Bacid -) 1 tab PO DAILY [facility] Last Admin: 08/13/17 09:01 Dose: 1 tab Magnesium Oxide (Mag-Ox -) 400 mg PO BID [facility] Last Admin: 08/13/17 09:01 Dose: 400 mg Nystatin (Nystatin Oral Suspension -) 500,000 units PO Q6HPO [facility] Last Admin: 08/13/17 11:41 Dose: 500,000 units Polyethylene Glycol (Miralax (For Daily Use) -) 17 gm PO DAILY [facility] Last Admin: 08/13/17 09:00 Dose: Not Given Timolol Maleate (Timoptic 0.5%) 1 drop OU DAILY [facility] Last Admin: 08/13/17 09:04 Dose: 1 drop - Objective Vital Signs: Vital Signs Temperature 98.9 F 08/13/17 10:00 Pulse Rate 92 H 08/13/17 10:00 Respiratory Rate 22 08/13/17 10:00 Blood Pressure 128/68 08/13/17 10:00 O2 Sat by Pulse Oximetry (%) 98 08/13/17 09:00 Constitutional: Yes: No Distress, Calm Cardiovascular: Yes: S1, S2. No: Murmur Respiratory: Yes: Regular, CTA Bilaterally Gastrointestinal: Yes: Normal Bowel Sounds, Soft Musculoskeletal: Yes: WNL Extremities: Yes: WNL Neurological: Yes: Alert, Oriented Psychiatric: Yes: Alert, Oriented Labs: CBC, BMP 08/13/17 05:30 08/13/17 05:30 INR, PTT INR 1.11 (0.82-1.09) 08/04/17 05:35 Assessment/Plan Problem List - Problems (1) DKA (diabetic ketoacidoses) Assessment/Plan: Code(s): E13.10 - OTH DIABETES MELLITUS WITH KETOACIDOSIS WITHOUT COMA Qualifiers: Diabetes mellitus type: type 2 Diabetes mellitus complication detail: without coma Qualified Code(s): E11.10 - Type 2 diabetes mellitus with ketoacidosis without coma (2) Sepsis Assessment/Plan: Code(s): A41.9 - SEPSIS, UNSPECIFIED ORGANISM (3) Hospital-acquired pneumonia Assessment/Plan: Code(s): J18.9 - PNEUMONIA, UNSPECIFIED ORGANISM (4) Hyperkalemia Assessment/Plan: Code(s): E87.5 - HYPERKALEMIA (5) CKD (chronic kidney disease) Assessment/Plan: Code(s): N18.9 - CHRONIC KIDNEY DISEASE, UNSPECIFIED (6) Hypertension Assessment/Plan: Code(s): I10 - ESSENTIAL (PRIMARY) HYPERTENSION Qualifiers: Hypertension type: essential hypertension Qualified Code(s): I10 - Essential (primary) hypertension (7) Hyperlipidemia Assessment/Plan: Code(s): E78.5 - HYPERLIPIDEMIA, UNSPECIFIED patients wbc now near normal plan stable continue oral hygeine rest as per primary team patient doing well
[2017-08-13 14:43] VITALS: BP 117/58; PULSE 82; TEMP 97.5
== END 2017-08-13 15:46 | DRG 871 ==
LOC: JER 21:10 → JERBED 08-02 03:19 → JICU 08-02 05:44 → J4S 08-03 15:34
PROVIDERS: ADMIT Internal Medicine; ATTEND Internal Medicine
PROC: 30233N1 Transfusion of Nonautologous Red Blood Cells into Peripheral Vein, Percutaneous Approach (ICD-10-PCS; principal; 2017-08-04)
DX: A41.9 Sepsis, unspecified organism (principal); E11.10 Type 2 diabetes mellitus with ketoacidosis without coma; J18.9 Pneumonia, unspecified organism; N17.9 Acute kidney failure, unspecified; E87.2 Acidosis; R64 Cachexia; Z68.1 Body mass index [BMI] 19.9 or less, adult; K56.1 Intussusception; I47.1 Supraventricular tachycardia; E87.0 Hyperosmolality and hypernatremia; I48.92 Unspecified atrial flutter; B37.0 Candidal stomatitis; I10 Essential (primary) hypertension; E78.5 Hyperlipidemia, unspecified; J44.9 Chronic obstructive pulmonary disease, unspecified; K57.90 Diverticulosis of intestine, part unspecified, without perforation or abscess without bleeding; K42.9 Umbilical hernia without obstruction or gangrene; E87.5 Hyperkalemia; F17.200 Nicotine dependence, unspecified, uncomplicated; I71.2 Thoracic aortic aneurysm, without rupture; D47.2 Monoclonal gammopathy; R01.1 Cardiac murmur, unspecified; D64.9 Anemia, unspecified; E11.21 Type 2 diabetes mellitus with diabetic nephropathy; I12.9 Hypertensive chronic kidney disease with stage 1 through stage 4 chronic kidney disease, or unspecified chronic kidney disease; E11.22 Type 2 diabetes mellitus with diabetic chronic kidney disease; N18.3 Chronic kidney disease, stage 3 (moderate); M19.90 Unspecified osteoarthritis, unspecified site; R26.89 Other abnormalities of gait and mobility; R13.19 Other dysphagia; E83.42 Hypomagnesemia; Z79.4 Long term (current) use of insulin; K59.09 Other constipation; Z89.421 Acquired absence of other right toe(s); Z85.22 Personal history of malignant neoplasm of nasal cavities, middle ear, and accessory sinuses; Z89.422 Acquired absence of other left toe(s); Z86.73 Personal history of transient ischemic attack (TIA), and cerebral infarction without residual deficits
CPT/HCPCS: 36415; 36430; 36600; 71045-TC-FY; 71250-TC; 74230-TC-FY; 80048; 80053; 81003; 82009; 82272; 82550; 82570; 82728; 82803; 82962; 83036; 83540; 83550; 83605; 83735; 83880; 84100; 84156; 84300; 84484; 84540; 85025; 85027; 85610; 86850; 86900; 86901; 86922; 87040; 87804; 87899; 92611-GN; 93005; 93010; 94010; 94640; 97116-GP; 97161-GP; 99281-25; J1756; P9038; P9058

== ENCOUNTER 2017-10-02 22:22 | Inpatient (IN) | payer OTHER, MEDICARE ==
--- NOTE | 2017-10-02 22:33 | PDOC ---
History of Present Illness - General History Source: Patient, Spouse () Exam Limitations: No Limitations - History of Present Illness Initial Comments: 10/02/17 23:56 The patient is a 76 year old male with a significant past medical history of COPD, GI bleed, diverticulosis, HLD, CVA, intussusception, umbilical hernia, DM , HTN, sinus cancer with excision and polypectomy who presents to the ED, accompanied by , s/p high blood sugar levels earlier today. As per , the patient took a finger stick around 8am this morning and it was 412. states she left for work and the patient was at home unattended from 8:30am-6: 00pm earlier today. As per , the patient was not acting at his baseline when she returned home and she redid his fingerstick and is read over range. As per , the patient has not been eating this past week and also reports nausea and chills. Denies fever. Denies chest pain or shortness of breath. Denies dysuria or changes in urinary output. Denies abdominal pain, vomiting, or diarrhea. Denies any other symptoms. <Sammy Lowry - Last Filed: 10/03/17 01:56> <Piper Underwood - Last Filed: 10/03/17 22:43> - General Chief Complaint: Blood Sugar Problem Stated Complaint: DIABETIC Time Seen by Provider: 10/02/17 22:32 Past History <Sammy Lowry - Last Filed: 10/03/17 01:56> - Past Medical History CVA: Yes Diabetes: Yes (NIDDM) GI Disorders: Yes (GI bleed) HTN: Yes Hypercholesterolemia: Yes - Surgical History Abdominal Surgery: Yes (Hernia repair) Orthopedic Surgery: Yes (R 5th toe amputaion, L 5th metatarsal bone removed) - Suicide/Smoking/Psychosocial Hx Smoking History: Current every day smoker Have you smoked in the past 12 months: Yes Number of Cigarettes Smoked Daily: 15 'Breaking Loose' booklet given: 08/02/17 Hx Alcohol Use: No Drug/Substance Use Hx: No Substance Use Type: None Hx Substance Use Treatment: No <Piper Underwood - Last Filed: 10/03/17 22:43> - Past Medical History Allergies/Adverse Reactions: Allergies Allergy/AdvReac Type Severity Reaction Status Date / Time No Known Allergies Allergy Verified 10/02/17 22:48 Home Medications: Ambulatory Orders Simvastatin [Zocor -] 20 mg PO HS 05/11/14 Timolol 0.5% [Timoptic] 1 drop OU DAILY 05/11/14 Ferrous Sulfate [Feosol] 325 mg PO DAILY #30 tablet 07/25/17 Albuterol 0.083% Nebulizer Petra [Ventolin 0.083% Nebulizer Soln -] 1 amp NEB Q4H PRN amp 08/13/17 Diltiazem Cd [Cardizem Cd -] 240 mg PO DAILY cap.cd.24h 08/13/17 Docusate Sodium [Colace -] 100 mg PO BID capsule 08/13/17 Insulin (Levemir) [Levemir Vial] 6 units SQ HS ml 08/13/17 Insulin Sliding Scale [Novolog Vial Sliding Scale -] 1 vial SQ HS units Insulin Sliding Scale [Novolog Vial Sliding Scale -] 1 vial SQ TIDAC units Magnesium Oxide [Mag-Ox -] 400 mg PO BID tablet 08/13/17 Polyethylene Glycol 3350 [Miralax 119 gm Btl -] 17 gm PO DAILY bottle 08/13/17 Review of Systems - Review of Systems Able to Perform ROS?: Yes Comments:: 10/02/17 23:56 CONSTITUTIONAL: + chills, loss of appetite Absent: fever, diaphoresis, generalized weakness, malaise HEENT: Absent: rhinorrhea, nasal congestion, throat pain, throat swelling, difficulty swallowing, mouth swelling, ear pain, eye pain, visual Changes CARDIOVASCULAR: Absent: chest pain, syncope, palpitations, irregular heart rate, lightheadedness , peripheral edema RESPIRATORY: Absent: cough, shortness of breath, dyspnea with exertion, orthopnea, wheezing, stridor, hemoptysis GASTROINTESTINAL: + nausea Absent: abdominal pain, abdominal distension, vomiting, diarrhea, constipation, melena, hematochezia GENITOURINARY: Absent: dysuria, frequency, urgency, hesitancy, hematuria, flank pain, genital pain MUSCULOSKELETAL: Absent: myalgia, arthralgia, joint swelling SKIN: Absent: rash, itching, pallor HEMATOLOGIC/IMMUNOLOGIC: + high blood sugar Absent: easy bleeding, easy bruising, lymphadenopathy, frequent infections ENDOCRINE: Absent: unexplained weight gain, unexplained weight loss, heat intolerance, cold intolerance NEUROLOGIC: Absent: headache, focal weakness or paresthesias, dizziness, unsteady gait, seizure, mental status changes, bladder or bowel incontinence PSYCHIATRIC: Absent: anxiety, depression, suicidal or homicidal ideation, hallucinations. All Other Systems: Reviewed and Negative <Sammy Lowry - Last Filed: 10/03/17 01:56> *Physical Exam - Vital Signs Last Vital Signs Temp Pulse Resp BP Pulse Ox 97.7 F 109 H 22 125/84 96 10/02/17 22:39 10/02/17 22:39 10/02/17 22:39 10/02/17 22:39 10/02/17 22:39 - Physical Exam Comments: 10/02/17 23:56 GENERAL: + cachexia Awake and alert. No acute distress. HEENT:+ dry mucous membranes Normocephalic, atraumatic. PERRLA, EOMI. No conjunctival pallor. Sclera are non- icteric. Oropharynx is clear. NECK: Supple. Full ROM. No JVD. Carotid pulses 2+ and symmetric, without bruits. No thyromegaly. NCo lymphadenopathy. CARDIOVASCULAR: Regular rate and rhythm. No murmurs, rubs, or gallops. Distal pulses are 2+ and symmetric. PULMONARY: + coarse breath sounds at bases No wheezing, rales or rhonchi. ABDOMINAL: Soft. Non-tender. Non-distended. No rebound or guarding. No organomegaly. Normoactive bowel sounds. MUSCULOSKELETAL Normal range of motion at all joints. No bony deformities or tenderness. No CVA tenderness. EXTREMITIES: No cyanosis. No clubbing. No edema. No calf tenderness. SKIN: + Dry Warm. Normal capillary refill. No rashes. No jaundice. NEUROLOGICAL: Alert, awake, appropriate. Cranial nerves 2-12 intact. No deficits to light touch and temperature in face, upper extremities and lower extremities. No motor deficits in the in face, upper extremities and lower extremities. Normoreflexic in the upper and lower extremities. Normal speech. Toes are down- going bilaterally. Gait is normal without ataxia. PSYCHIATRIC: Cooperative. Good eye contact. Appropriate mood and affect. <Sammy Lowry - Last Filed: 10/03/17 01:56> Heart Score/ECG Review #1 10/03/17 01:57 Vent rate 120 bpm AK interval 136 ms QRS duration 88 ms Sinus tachycardia Increased voltage Reported by: Dr. Underwood <Sammy Lowry - Last Filed: 10/03/17 01:56> ED Treatment Course - LABORATORY CBC & Chemistry Diagram: 10/02/17 23:32 10/02/17 23:32 - ADDITIONAL ORDERS Additional order review: 10/02/17 23:32 RBC 3.93 L D MCV 94.3 MCHC 32.1 RDW 16.1 H MPV 9.0 Neutrophils % No Result Required. Lymphocytes % No Result Required. - Medications Given in the ED: ED Medications Discontinued Medications Generic Name Dose Route Start Last Admin Trade Name Freq PRN Reason Stop Dose Admin Sodium Chloride 1,000 ml 10/02/17 23:10 10/02/17 23:41 Normal Saline - IV 10/02/17 23:11 1,000 ml ONCE ONE Administration <Sammy Lowry - Last Filed: 10/03/17 01:56> - LABORATORY CBC & Chemistry Diagram: 10/03/17 12:00 10/03/17 15:31 <Piper Underwood - Last Filed: 10/03/17 22:43> Medical Decision Making - Medical Decision Making 10/03/17 05:01 Pt comes with uncontrolled blood sugar; severe dehydration. states that the patient doesn't want to eat and that he was told he needs insulin, but takes only oral meds (glucophage). tells us that pt's blood sugar was 400s in the AM and tonight even higher. Pt has no fevers and no complaints. He has a hx of COPD and he has bilat coarse BS and wheeze. Pt has low pulsox on RA. Improved with nasal cannula. Pt later placed on a NRB facemask. I immediately cultured the patient's blood on arrival and sent off labs. NSS and insulin and abx requested for community acquired pneumonia. CXR shows a bilat pneumonia. Pt's chem results returned demonstrating Anion gap; Pt received Insulin drip, NSS, Banana bag 1L and repeat glc pending. 10/03/17 22:40 Pt was placed on BiPAP for his bilat pneumonia and Pulsox of mid 80s on NRB. Pt optimized on BiPAP and pt's ABG sent by myself demonstrated CO2 of 33. Pt is stable for admission to the ICU. <Piper Underwood - Last Filed: 10/03/17 22:43> *DC/Admit/Observation/Transfer - Attestations Scribe Attestion: 10/02/17 23:57 Documentation prepared by Sammy Lowry, acting as medical assembly for Piper Underwood MD <Sammy Lowry - Last Filed: 10/03/17 01:56> - Discharge Dispostion Admit: Yes <Piper Underwood - Last Filed: 10/03/17 22:43> Diagnosis at time of Disposition: DKA (diabetic ketoacidoses), Diabetes mellitus, Pneumonia allergic - Discharge Dispostion Condition at time of disposition: Guarded
[2017-10-02] MEDS ORDERED: INSULIN REGULAR HUMAN 100 UNITS/ML *VIAL IVPUSH ONE (23:10)
[2017-10-02] MEDS ORDERED: SODIUM CHLORIDE 0.9% 500 ML INFUS.BAG IV ONE (23:10)
[2017-10-02] MEDS ORDERED: FOLIC ACID INJECTION - 1 MG, THIAMINE HCL 100 MG, MULTIVIT INJECTION ADULT 10 ML in SOD... IVPB ONE (23:42)
[2017-10-02 23:44] LABS: HEMOGLOBIN 11.9 GM/dL (11.7-16.9); MCH 30.3 pg (25.7-33.7); MCHC 32.1 g/dl (32.0-35.9); MEAN CELL VOLUME 94.3 fl (80-96); PLATELET COUNT 433 K/MM3 (134-434); RBC 3.93 M/mm3 (4.00-5.60); RDW 16.1 % (11.9-15.9)
[2017-10-02 23:45] LABS: WHITE BLOOD COUNT 30.1 K/mm3 (4.0-10.0)
[2017-10-02] MEDS ORDERED: AZITHROMYCIN IVPB 500 MG in DEXTROSE 5%-WATER - 250 ML IVPB ONE (23:56)
[2017-10-02] MEDS ORDERED: CEFTRIAXONE 1,000 MG in DEXTROSE 5%-WATER - 50 ML IVPB ONE (23:56)
[2017-10-03] MEDS ORDERED: AZITHROMYCIN IVPB 250 ML IVPB ONE (00:10)
[2017-10-03] MEDS ORDERED: INSULIN REGULAR HUMAN 100 UNITS/ML *VIAL ONE ×2 (00:11→00:19)
[2017-10-03] MEDS ORDERED: CEFTRIAXONE 1 GM/50 ML BAG ONE (00:11)
[2017-10-03 00:25] LABS: ALBUMIN 2.4 g/dl (3.4-5.0); ANION GAP 22 (8-16); BILIRUBIN,TOTAL 0.4 mg/dL (0.2-1.0); BLOOD UREA NITROGEN 92 mg/dL (7-18); CALCIUM 9.6 mg/dL (8.5-10.1); CHLORIDE 97 mmol/L (98-107); CO2 15 mmol/L (21-32); CREATININE 2.8 mg/dL (0.7-1.3); POTASSIUM 5.7 mmol/L (3.5-5.1); SGOT/AST 10 U/L (15-37); SGPT/ALT 9 U/L (12-78); SODIUM 134 mmol/L (136-145); TOT PROT 6.4 g/dl (6.4-8.2)
[2017-10-03 00:26] LABS: ALK PHOS 138 U/L (45-117)
[2017-10-03 00:30] LABS: GLUCOSE,RANDOM 567 mg/dL (74-106)
[2017-10-03 01:35] LABS: ACETONE SERUM TRACE (NEGATIVE)
[2017-10-03] MEDS: INSULIN REGULAR 100 UNITS in SODIUM CHLORIDE 99 ML IVPB SCH (03:11)
--- NOTE | 2017-10-03 05:52 | PN ---
Progress Note (short form) - Note Progress Note: Microblog sent up for admission. Patient evaluated in the ER. Patient satting in the high 80's/low 90's on non-rebreather and tachypneic. Patient unstable for transport at this time. Will reassess.
[2017-10-03 06:12] LABS: ARTERIAL BLD GAS O2 SATURATION 95.2 % (90-98.9); ARTERIAL BLOOD GAS BASE EXCESS -10.6 meq/l (-2-2); ARTERIAL BLOOD GAS PCO2 33.2 mmHg (35-45); ARTERIAL BLOOD GAS PO2 84.2 mmHg (70-100); ARTERIAL BLOOD GAS pH 7.27 (7.35-7.45)
[2017-10-03] MEDS ORDERED: SODIUM CHLORIDE 1,000 ML IV SCH (08:15)
[2017-10-03] MEDS ORDERED: CEFTRIAXONE 2 MG in DEXTROSE 5%-WATER - 50 ML IVPB ONE (08:15)
[2017-10-03 08:34] LABS: ANION GAP 16 (8-16); BLOOD UREA NITROGEN 90 mg/dL (7-18); CALCIUM 8.4 mg/dL (8.5-10.1); CHLORIDE 108 mmol/L (98-107); CO2 17 mmol/L (21-32); CREATININE 2.9 mg/dL (0.7-1.3); POTASSIUM 4.8 mmol/L (3.5-5.1); SODIUM 141 mmol/L (136-145)
--- NOTE | 2017-10-03 08:36 | HP ---
CHIEF COMPLAINT:hyperglycemia PCP:Mayra HISTORY OF PRESENT ILLNESS: information received from chart as pt is a poor historian 76 year old male with a significant past medical history of COPD, GI bleed, diverticulosis, HLD, CVA, intussusception, umbilical hernia, DM, HTN, sinus cancer with excision and polypectomy who presents to the ED with hyperglcyemia. as per reports checked sugars yesterday and it was 400 and then went to work. when she got home pt was confused and repeat BGM was unreportable. notes he has been having poor intake this week. he was hospitalized in July for DKA and PNA and was discharged on po diabetic medications and was told to f/u [facility]. unclear if pt did so ER course was notable for: (1)insulin ggt (2)on bipap (3) Recent Travel:unknown PAST MEDICAL HISTORY:as above PAST SURGICAL HISTORY:Yes: Amputation (bilateral toes #5), Hernia Repair ( Bilateral inguinal hernia repair about 30 years ago. Lt toe amput (old) tonsillect), Tonsillectomy (Lt toe amp (old)) Social History: Smoking:yes Alcohol:no Drugs: no Family History: Diabetes: Brother (liver Ca, CKD), Heart Disease: Father, Mother (ill descript GI illness), Brother, CA: Brother, Other: Mother Allergies No Known Allergies Allergy (Verified 10/02/17 22:48) HOME MEDICATIONS: Home Medications Medication Instructions Recorded Simvastatin [Zocor -] 20 mg PO HS 05/11/14 Timolol 0.5% [Timoptic] 1 drop OU DAILY 05/11/14 Ferrous Sulfate [Feosol] 325 mg PO DAILY #30 tablet 07/25/17 Albuterol 0.083% Nebulizer Petra 1 amp NEB Q4H PRN amp 08/13/17 [Ventolin 0.083% Nebulizer Soln -] Diltiazem Cd [Cardizem Cd -] 240 mg PO DAILY cap.cd.24h 08/13/17 Docusate Sodium [Colace -] 100 mg PO BID capsule 08/13/17 Insulin (Levemir) [Levemir Vial] 6 units SQ HS ml 08/13/17 Insulin Sliding Scale [Novolog 1 vial SQ HS units 08/13/17 Vial Sliding Scale -] Insulin Sliding Scale [Novolog 1 vial SQ TIDAC units 08/13/17 Vial Sliding Scale -] Magnesium Oxide [Mag-Ox -] 400 mg PO BID tablet 08/13/17 Polyethylene Glycol 3350 [Miralax 17 gm PO DAILY bottle 08/13/17 119 gm Btl -] REVIEW OF SYSTEMS CONSTITUTIONAL: loss of appetite Absent: fever, chills, diaphoresis, generalized weakness, malaise, , weight change HEENT: Absent: rhinorrhea, nasal congestion, throat pain, throat swelling, difficulty swallowing, mouth swelling, ear pain, eye pain, visual changes CARDIOVASCULAR: Absent: chest pain, syncope, palpitations, irregular heart rate, lightheadedness , peripheral edema RESPIRATORY: Absent: cough, shortness of breath, dyspnea with exertion, orthopnea, wheezing, stridor, hemoptysis GASTROINTESTINAL: Absent: abdominal pain, abdominal distension, nausea, vomiting, diarrhea, constipation, melena, hematochezia GENITOURINARY: Absent: dysuria, frequency, urgency, hesitancy, hematuria, flank pain, genital pain MUSCULOSKELETAL: Absent: myalgia, arthralgia, joint swelling, back pain, neck pain SKIN: Absent: rash, itching, pallor HEMATOLOGIC/IMMUNOLOGIC: Absent: easy bleeding, easy bruising, lymphadenopathy, frequent infections ENDOCRINE: Absent: unexplained weight gain, unexplained weight loss, heat intolerance, cold intolerance NEUROLOGIC: Absent: headache, focal weakness or paresthesias, dizziness, unsteady gait, seizure, mental status changes, bladder or bowel incontinence PSYCHIATRIC: Absent: anxiety, depression, suicidal or homicidal ideation, hallucinations. PHYSICAL EXAMINATION Vital Signs - 24 hr 10/02/17 10/03/17 10/03/17 22:39 04:44 05:39 Temperature 97.7 F Pulse Rate 109 H Pulse Rate [ 116 H Left Radial] Respiratory 22 35 H Rate Blood Pressure 125/84 Blood Pressure 116/45 [Left Arm] O2 Sat by Pulse 96 90 L 94 L Oximetry (%) 10/03/17 10/03/17 06:15 06:17 Temperature Pulse Rate Pulse Rate [ 117 H Left Radial] Respiratory 30 H 14 Rate Blood Pressure Blood Pressure 111/54 [Left Arm] O2 Sat by Pulse 90 L 60 L Oximetry (%) GENERAL: Awake, alert, Oriented x2 (self and location), tachypnic +accessory muscles, +acetone breath, thin and frail elderly male. cachectic, bitemporal wasting, prominent clavicles, scaffoid abdomen with thin extremities HEAD: Normal with no signs of trauma. EYES: Pupils equal, round and reactive to light, extraocular movements intact, sclera anicteric, conjunctiva clear. No lid lag. EARS, NOSE, THROAT: Ears normal, nares patent, oropharynx clear without exudates. Moist mucous membranes. NECK: Normal range of motion, supple without lymphadenopathy, JVD, or masses. LUNGS: poor inspiratory effort, decreased breath sounds R base, coarse breath sounds. + accessory muscle use. HEART: S1 S2 tachycardic ABDOMEN: Soft, nontender, not distended, normoactive bowel sounds, no guarding, no rebound, no masses. No hepatomegaly or splenomegaly. MUSCULOSKELETAL: Normal range of motion at all joints. No bony deformities or tenderness. No CVA tenderness. UPPER EXTREMITIES: 2+ pulses, warm, well-perfused. No cyanosis. No clubbing. No peripheral edema. LOWER EXTREMITIES: 2+ pulses, warm, well-perfused. No calf tenderness. No peripheral edema. NEUROLOGICAL: unable to assess PSYCHIATRIC: Cooperative. Good eye contact. Appropriate mood and affect. SKIN: Warm, dry, normal turgor, no rashes or lesions noted, normal capillary refill. Laboratory Results - last 24 hr 10/02/17 10/02/17 10/02/17 23:32 23:32 23:32 WBC 30.1 H* D RBC 3.93 L D Hgb 11.9 D Hct 37.0 D MCV 94.3 MCH 30.3 MCHC 32.1 RDW 16.1 H Plt Count 433 MPV 9.0 Neutrophils % No Result Required. Neutrophils % (Manual) 62.0 D Band Neutrophils % 33.0 Lymphocytes % No Result Required. Lymphocytes % (Manual) 0.0 L Monocytes % (Manual) 3 L Eosinophils % (Manual) 0.0 D Basophils % (Manual) 0.0 Myelocytes % (Man) 0 D Promyelocytes % (Man) 1 Blast Cells % (Manual) 0 Nucleated RBC % 0 Metamyelocytes 1 Anticoagulation Therapy Puncture Site ABG pH ABG pCO2 at Pt Temp ABG pO2 at Pt Temp ABG HCO3 ABG O2 Sat (Measured) ABG O2 Content ABG Base Excess Ra Test O2 Delivery Device Oxygen Flow Rate Vent Mode Vent Rate Mechanical Rate Pressure Support Vent Sodium 134 L Potassium 5.7 H Chloride 97 L Carbon Dioxide 15 L D Anion Gap 22 H BUN 92 H D Creatinine 2.8 H D Creat Clearance w eGFR 22.03 Random Glucose 567 H* D Lactic Acid Calcium 9.6 D Total Bilirubin 0.4 D AST 10 L ALT 9 L Alkaline Phosphatase 138 H D Total Protein 6.4 D Albumin 2.4 L Alcohol, Quantitative < 5.0 Acetone, Qual Trace 10/03/17 10/03/17 00:03 06:00 WBC RBC Hgb Hct MCV MCH MCHC RDW Plt Count MPV Neutrophils % Neutrophils % (Manual) Band Neutrophils % Lymphocytes % Lymphocytes % (Manual) Monocytes % (Manual) Eosinophils % (Manual) Basophils % (Manual) Myelocytes % (Man) Promyelocytes % (Man) Blast Cells % (Manual) Nucleated RBC % Metamyelocytes Anticoagulation Therapy No Result Required. Puncture Site No Result Required. ABG pH 7.27 L ABG pCO2 at Pt Temp 33.2 L ABG pO2 at Pt Temp 84.2 ABG HCO3 14.9 L* ABG O2 Sat (Measured) 95.2 ABG O2 Content 14.3 L ABG Base Excess -10.6 L* Ra Test No Result Required. O2 Delivery Device No Result Required. Oxygen Flow Rate No Result Required. Vent Mode No Result Required. Vent Rate No Result Required. Mechanical Rate No Result Required. Pressure Support Vent No Result Required. Sodium Potassium Chloride Carbon Dioxide Anion Gap BUN Creatinine Creat Clearance w eGFR Random Glucose Lactic Acid 2.9 H* Calcium Total Bilirubin AST ALT Alkaline Phosphatase Total Protein Albumin Alcohol, Quantitative Acetone, Qual ASSESSMENT/PLAN: 76 year old male with a significant past medical history of COPD, GI bleed, diverticulosis, HLD, CVA, intussusception, umbilical hernia, DM, HTN, sinus cancer with excision and polypectomy who presents to the ED with hyperglcyemia. Pt was found to be have severe sepsis with acute hypoxic respiratory failure and DKA 1. DKA- ICU admission. was started on insulin ggt in the ER. will order stat labs, NPO, IVF, insulin ggt. trend BMP Q4H and BGM Q2H 2. Acute hypoxic respiratory failure- due to PNA and kussmaul breathing from DKA. on bipap. saturating 98%. monitor respiratory status closely. 3. Severe sepsis due to PNA- was recently treated for PNA with ceftriaxone. CXR with R base infiltrate. possible aspiration? 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 aspiration precautions, elevate head of bed. check UA. F/u Cx 4. AG metabolic acidosis- due to DKA and sepsis. trend lactate 5. ACute on CKD- due to dehydration and sepsis. lazcano placed. monitor I&O. IVF. avoid nephrotoxic agents 6. Pseudohyperkalemia 7. Severe malnutrition- evident by body habitus. nutritional eval 8. CVA 9. HTN- currently normotensive. hold antihypertensives at this time 10. sinus cancer s/p polypectomy 11. MICU monitoring Visit type - Emergency Visit Emergency Visit: Yes ED Registration Date: 10/03/17 Care time: The patient presented to the Emergency Department on the above date and was hospitalized for further evaluation of their emergent condition. - New Patient This patient is new to me today: Yes Date on this admission: 10/15/17 - Critical Care Critical Care patient: Yes Total Critical Care Time (in minutes): 45 Critical Care Statement: The care of this patient involved high complexity decision making to prevent further life threatening deterioration of the patient 's condition and/or to evaluate & treat vital organ system(s) failure or risk of failure. Hospitalist Screening - Colonoscopy Questionnaire Colonoscopy Questionnaire: Colonoscopy Questionnaire - Patient: 50 - 75 years old and never had a screening colonoscopy: Unknown History of colon or rectal polyps, or CA: Unknown History of IBD, Crohn's disease or UC: Unknown History of abdominal radiation therapy as a child: Unknown - Relative: 1 with colon or rectal CA, or polyps at age 60 or younger: Unknown Colon or rectal CA diagnosed at age 45 or younger: Unknown Multiple relatives with colon or rectal CA: Unknown - Outcome: Screening Result: Negative Screen
[2017-10-03 08:41] LABS: URINE APPEARANCE CLOUDY; URINE BILIRUBIN NEGATIVE (<2.0 mg/dL); URINE COLOR YELLOW; URINE GLUCOSE (UA) 2+ (NEGATIVE); URINE KETONE TRACE (NEGATIVE); URINE LEUK ESTERASE NEGATIVE (NEGATIVE); URINE NITRITE NEGATIVE (NEGATIVE); URINE UROBILINOGEN NEGATIVE mg/dL (0.2-1.0)
[2017-10-03 08:44] LABS: URINE PROTEIN 2+ (NEGATIVE)
[2017-10-03 09:04] LABS: GLUCOSE,RANDOM 309 mg/dL (74-106)
[2017-10-03 09:07] VITALS: BMI 18.1
--- NOTE | 2017-10-03 09:22 | EKG ---
Test Reason : Blood Pressure : / mmHG Vent. 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
--- NOTE | 2017-10-03 09:39 | CONSULT ---
Consult - text type - Consultation Consultation Note: Pulm/CCM Pt seen and examined in ICU Briefly Mr Chen is a 76 year old man with past medical history significant for COPD, GI bleed, diverticulosis, HLD, CVA, intussusception, umbilical hernia , DM, HTN, sinus cancer with excision and polypectomy who was sent into ED last night by when she note high fingerstick and increased work of breathing. hyperglcyemia. Apparently chesks sugars daily and yesterday am it was 400 and alegria then went to work, coming home later to find pt was confused and repeat BGM was above range. She relates he has been having poor intake this week and has been in overall declining health. He was hospitalized in July for DKA and PNA and was discharged on po diabetic medications. He was given referal for endocrine evalutaion, unclear if pt did so but levamir and sliding scale part of home med list from Jul. In ED pt was in resp distress, hypoxic on RA, started on NIV. CXR with RL/ML infiltrates, no pneumothorax. WBC was 30K with 30% bandemia. Cr 2.9 up from 1.4 on last d/c. UA was negative for wbc, +ketones. BGL 500, Hco3 15, AG 20. He was given IV insulin and gtt, started on broad spectrum abx. Given IVF 2L. ABG with resp acidosis, remained on NIV and transferred to ICU. In ICU pt has coarse lungs R>L with rhoncorous weak cough and pooling oral secretions. Taken off NIV, placed on NRB, spo2 91%, repeat ABG pending. Family informed of condition. Recent Travel:unknown PAST MEDICAL HISTORY:as above PAST SURGICAL HISTORY:Yes: Amputation (bilateral toes #5), Hernia Repair ( Bilateral inguinal hernia repair about 30 years ago. Lt toe amput (old) tonsillect), Tonsillectomy (Lt toe amp (old)) Social History: Smoking:yes Alcohol:no Drugs: no Family History: Diabetes: Brother (liver Ca, CKD), Heart Disease: Father, Mother (ill descript GI illness), Brother, CA: Brother, Other: Mother Allergies No Known Allergies Allergy (Verified 10/02/17 22:48) Moon is HCP. Ambulatory Orders Simvastatin [Zocor -] 20 mg PO HS 05/11/14 Timolol 0.5% [Timoptic] 1 drop OU DAILY 05/11/14 Ferrous Sulfate [Feosol] 325 mg PO DAILY #30 tablet 07/25/17 Albuterol 0.083% Nebulizer Petra [Ventolin 0.083% Nebulizer Soln -] 1 amp NEB Q4H PRN amp 08/13/17 Diltiazem Cd [Cardizem Cd -] 240 mg PO DAILY cap.cd.24h 08/13/17 Docusate Sodium [Colace -] 100 mg PO BID capsule 08/13/17 Insulin (Levemir) [Levemir Vial] 6 units SQ HS ml 08/13/17 Insulin Sliding Scale [Novolog Vial Sliding Scale -] 1 vial SQ HS units Insulin Sliding Scale [Novolog Vial Sliding Scale -] 1 vial SQ TIDAC units Magnesium Oxide [Mag-Ox -] 400 mg PO BID tablet 08/13/17 Polyethylene Glycol 3350 [Miralax 119 gm Btl -] 17 gm PO DAILY bottle 08/13/17 Active Medications Chlorhexidine Gluconate (Hibiclens For Decolonization -) 1 applic TP HS SELVIN Heparin Sodium (Porcine) (Heparin -) 5,000 unit SQ BID SELVIN Insulin Human Regular 100 (units/ Sodium Chloride) 100 mls @ 5.71 mls/hr IVPB TITR SELVIN; 0.1 UNITS/KG/HR PRN Reason: Protocol Last Admin: 10/03/17 03:11 Dose: 0.1 units/kg/hr, 5.71 mls/hr Azithromycin 500 mg/ Dextrose 250 mls @ 250 mls/hr IVPB DAILY SELVIN Sodium Chloride (Normal Saline -) 1,000 mls @ 100 mls/hr IV ASDIR SELVIN Ceftriaxone Sodium 2,000 mg/ (Dextrose) 50 mls @ 100 mls/hr IVPB ONCE ONE Stop: 10/03/17 08:44 Mupirocin (Bactroban Ointment (For Decolonization) -) 1 applic NS BID SELVIN Stop: 10/08/17 09:59 ABG Results ABG pH 7.18 (7.35-7.45) L* 10/03/17 09:50 ABG pCO2 at Pt Temp 45.7 mmHg (35-45) H D 10/03/17 09:50 ABG pO2 at Pt Temp 87.6 mmHg (70-100) 10/03/17 09:50 ABG HCO3 16.4 meq/L (22-26) L 10/03/17 09:50 ABG O2 Sat (Measured) 94.5 % (90-98.9) 10/03/17 09:50 ABG O2 Content 14.4 % vol (15-22) L 10/03/17 09:50 ABG Base Excess -11.2 meq/l (-2-2) L* 10/03/17 09:50 CBCD WBC 30.1 K/mm3 (4.0-10.0) H* D 10/02/17 23:32 RBC 3.93 M/mm3 (4.00-5.60) L D 10/02/17 23:32 Hgb 11.9 GM/dL (11.7-16.9) D 10/02/17 23:32 Hct 37.0 % (35.4-49) D 10/02/17 23:32 MCV 94.3 fl (80-96) 10/02/17 23:32 MCHC 32.1 g/dl (32.0-35.9) 10/02/17 23:32 RDW 16.1 % (11.9-15.9) H 10/02/17 23:32 Plt Count 433 K/MM3 (134-434) 10/02/17 23:32 MPV 9.0 fl (7.5-11.1) 10/02/17 23:32 CMP Sodium 141 mmol/L (136-145) 10/03/17 07:40 Potassium 4.8 mmol/L (3.5-5.1) 10/03/17 07:40 Chloride 108 mmol/L (98-107) H D 10/03/17 07:40 Carbon Dioxide 17 mmol/L (21-32) L 10/03/17 07:40 Anion Gap 16 (8-16) 10/03/17 07:40 BUN 90 mg/dL (7-18) H 10/03/17 07:40 Creatinine 2.9 mg/dL (0.7-1.3) H 10/03/17 07:40 Creat Clearance w eGFR 22.03 (>60) 10/02/17 23:32 Calcium 8.4 mg/dL (8.5-10.1) L 10/03/17 07:40 Total Bilirubin 0.4 mg/dL (0.2-1.0) D 10/02/17 23:32 AST 10 U/L (15-37) L 10/02/17 23:32 ALT 9 U/L (12-78) L 10/02/17 23:32 Alkaline Phosphatase 138 U/L (45-117) H D 10/02/17 23:32 Total Protein 6.4 g/dl (6.4-8.2) D 10/02/17 23:32 Albumin 2.4 g/dl (3.4-5.0) L 10/02/17 23:32 Urine Test Results Urine Color Yellow 10/03/17 08:20 Urine Appearance Cloudy 10/03/17 08:20 Urine pH 5.0 (5.0-8.0) 10/03/17 08:20 Ur Specific [place] 1.016 (1.001-1.035) 10/03/17 08:20 Urine Protein 2+ (NEGATIVE) H D 10/03/17 08:20 Urine Glucose (UA) 2+ (NEGATIVE) H 10/03/17 08:20 Urine Ketones Trace (NEGATIVE) H 10/03/17 08:20 Urine Blood Negative (NEGATIVE) 10/03/17 08:20 Urine Nitrite Negative (NEGATIVE) 10/03/17 08:20 Urine Bilirubin Negative (<2.0 mg/dL) 10/03/17 08:20 Ur Leukocyte Esterase Negative (NEGATIVE) 10/03/17 08:20 CXR with R lower and mid lobe infiltrate EKG: ST, occ pacs no ischemic changes ROS: unable due to pt condition Vital Signs Temp 98.9 F 10/03/17 03:53 Pulse 117 H 10/03/17 06:15 Resp 30 10/03/17 06:17 BP 111/54 10/03/17 06:15 Pulse Ox 90 L 10/03/17 08:43 Intake & Output 10/02/17 10/02/17 10/03/17 11:59 23:59 11:59 Weight 57.153 kg 50.802 kg Other: Height 5 ft 6 in 5 ft 6 in Body Mass Index (BMI) 20.3 18.1 Weight Measurement Method Built in [facility] Weight Measurement Method Est/Stated by Patient PE: Gen; frail eld man, poorly responsive, in moderate resp disttress. HEENT; PERRLA, EOMI, pooling oral secretions, dry palate PULM: coarse Rhonchi R>L, no wheezes CV; tachy, reg, unable to appreciate m/r/g ABD; soft, NT, ND EXT: frail thin, no edema Neuro: awakens to voice, unable to phonate well. DRIVER x 4, diffusely weak A/ 76 y/o man with multiple medical problems (COPD, DM, HTH) presenting with multilobar pna, DKA, SHANTA, sepsis, and mixed respiratory failure now intubated, sedated, on pressors, with poor UOP and rising Cr. P/ -intubate, LTVV stategies 6cc/kg -sput cxl sent, thick yellow green copious. -sedate for vent synchrony -fluid resuscitation, will likely need TLC, possible HD cath (no uop after 2L NS ) -broad spectrum abx, hospitalized in jul. will escalate for HAP coverage if worsening shock (ID consult) -legionella and strep AG -insulin gtt until gap closed -repeat lytes, watch K closely but would judiciously replete given renal failure -monitor for acute HD needs, consider neph consult if remains oliguric--> anuric -npo for now -DVT and GI prophy Adrian ACNP 8546 35 min CCT, no including procedures
[2017-10-03 10:02] LABS: ARTERIAL BLD GAS O2 SATURATION 94.5 % (90-98.9); ARTERIAL BLOOD GAS BASE EXCESS -11.2 meq/l (-2-2); ARTERIAL BLOOD GAS PCO2 45.7 mmHg (35-45); ARTERIAL BLOOD GAS PO2 87.6 mmHg (70-100)
[2017-10-03 10:11] LABS: ARTERIAL BLOOD GAS pH 7.18 (7.35-7.45)
[2017-10-03] MEDS ORDERED: MIDAZOLAM HCL 5 MG/1 ML Single Dose Vial IVPUSH ONE (10:14)
[2017-10-03] MEDS ORDERED: ROCURONIUM BROMIDE 50 MG/5 ML VIAL IVPUSH ONE (10:14)
[2017-10-03] MEDS ORDERED: RAPID SEQUENCE INTUBATION KIT NR ONE (10:29)
[2017-10-03] MEDS ORDERED: PHENYLEPHRINE HCL 10 MG/1 ML SINGLE DOSE VIAL ONE ×3 (10:34→20:23)
--- NOTE | 2017-10-03 11:17 | PROC ---
Intubation - Intubation Reason for Intubation: Respiratory Failure, Airway Protection Time of Intubation: 11:14 Intubation Method: orotracheal Blade used: Mac Tube Size (cm): 7.5 Tube position @ lip (cm): 22 Tube position confirmed by: CO2 detector, Chest x-ray, Breath sounds Breath Sounds after Intubation: equal Post Intubation Xray: Yes (ETT in satisfactory postition) Remarks: RSI with etomidate, fentanyl, rocuronium smooth induction Mac IV blade revealed Grade II view, there was thick tenacious and partially dried secretions partially obstructing vocal cords, these were suctioned with improved view 7.5 ETT passed atraumatically Secured 22cm at lip CXR ordered. [id number]
[2017-10-03 11:25] LABS: URINE APPEARANCE TURBID; URINE BILIRUBIN NEGATIVE (<2.0 mg/dL); URINE COLOR AMBER; URINE GLUCOSE (UA) 2+ (NEGATIVE); URINE KETONE TRACE (NEGATIVE); URINE LEUK ESTERASE NEGATIVE (NEGATIVE); URINE NITRITE NEGATIVE (NEGATIVE); URINE UROBILINOGEN NEGATIVE mg/dL (0.2-1.0)
[2017-10-03] MEDS: MUPIROCIN 2% TOPICAL OINTMENT FOR DECOLONIZATION NS SCH ×2 (11:28→21:38)
[2017-10-03] MEDS: HEPARIN NA (PORCINE) 5,000 UNITS/ML 1ML VIAL SQ SCH ×2 (11:29→21:39)
[2017-10-03] MEDS ORDERED: SODIUM CHLORIDE 0.9% 1000 ML INFUS.BAG IV SCH (11:30)
[2017-10-03] MEDS: PHENYLEPHRINE HCL 20,000 MCG in SODIUM CHLORIDE 248 ML IVPB SCH ×2 (11:30→14:47)
[2017-10-03 11:31] LABS: URINE PROTEIN 2+ (NEGATIVE)
[2017-10-03 11:47] LABS: ANION GAP 11 (8-16); BLOOD UREA NITROGEN 93 mg/dL (7-18); CALCIUM 8.2 mg/dL (8.5-10.1); CHLORIDE 114 mmol/L (98-107); CO2 18 mmol/L (21-32); GLUCOSE,RANDOM 137 mg/dL (74-106); POTASSIUM 4.9 mmol/L (3.5-5.1); SODIUM 143 mmol/L (136-145)
[2017-10-03 12:02] LABS: EPI CELLS RARE /HPF (FEW); GRANULAR CASTS 18 /lpf; URINE HYALINE CAST 18 /lpf
[2017-10-03 12:20] LABS: HEMATOCRIT 32.7 % (35.4-49); HEMOGLOBIN 10.5 GM/dL (11.7-16.9); MCH 29.9 pg (25.7-33.7); MEAN CELL VOLUME 93.4 fl (80-96); MEAN PLT VOLUME 8.4 fl (7.5-11.1); PLATELET COUNT 369 K/MM3 (134-434); RDW 16.1 % (11.9-15.9)
[2017-10-03] MEDS ORDERED: DEXTROSE 5%-0.45% SALINE 1,000 ML IV SCH (12:30)
[2017-10-03 12:34] LABS: WHITE BLOOD COUNT 30.6 K/mm3 (4.0-10.0)
[2017-10-03 12:45] LABS: INR 1.33 (0.82-1.09)
[2017-10-03 13:42] LABS: ALBUMIN 1.6 g/dl (3.4-5.0); ALK PHOS 88 U/L (45-117); ANION GAP 12 (8-16); BILIRUBIN,TOTAL 0.3 mg/dL (0.2-1.0); BLOOD UREA NITROGEN 90 mg/dL (7-18); CALCIUM 7.6 mg/dL (8.5-10.1); CHLORIDE 116 mmol/L (98-107); CO2 17 mmol/L (21-32); CREATININE 2.8 mg/dL (0.7-1.3); GLUCOSE,RANDOM 133 mg/dL (74-106); POTASSIUM 4.9 mmol/L (3.5-5.1); SGOT/AST 14 U/L (15-37); SGPT/ALT 8 U/L (12-78); SODIUM 145 mmol/L (136-145); TOT PROT 4.4 g/dl (6.4-8.2)
--- NOTE | 2017-10-03 14:43 | CON.ID ---
Consult Consult Specialty:: infectious diseases Reason for Consultation:: sepsis,shock - History of Present Illness History of Present Illness: patient is intubated and sedated and on pressors history obtained from the charts the history as taken initially on admitting is as down below. subsequently the patient got intubated as he became worse needed his airway protected 76 year old man with past medical history significant for COPD, GI bleed, diverticulosis, HLD, CVA, intussusception, umbilical hernia, DM, HTN, sinus cancer with excision and polypectomy who was sent into ED last night by when she noted high fingerstick and increased work of breathing. hyperglcyemia. Apparently chesks sugars daily and yesterday am it was 400 and alegria then went to work, coming home later to find pt was confused and repeat BGM was above range. She relates he has been having poor intake this week and has been in overall declining health. 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 Lt toe amput (old) tonsillect), Tonsillectomy (Lt toe amp (old)) - Alcohol/Substance Use Hx Alcohol Use: No History of Substance Use: reports: None - Smoking History Smoking history: Current every day smoker Have you smoked in the past 12 months: Yes Aproximately how many cigarettes per day: 15 - Social History Usual Living Arrangement: With Spouse (lives with in apartment without stairs to elevator) ADL: Independent (with SC) History of Recent Travel: No Home Medications - Allergies Allergies/Adverse Reactions: Allergies Allergy/AdvReac Type Severity Reaction Status Date / Time No Known Allergies Allergy Verified 10/02/17 22:48 - Home Medications Home Medications: Ambulatory Orders Simvastatin [Zocor -] 20 mg PO HS 05/11/14 Timolol 0.5% [Timoptic] 1 drop OU DAILY 05/11/14 Ferrous Sulfate [Feosol] 325 mg PO DAILY #30 tablet 07/25/17 Albuterol 0.083% Nebulizer Petra [Ventolin 0.083% Nebulizer Soln -] 1 amp NEB Q4H PRN amp 08/13/17 Diltiazem Cd [Cardizem Cd -] 240 mg PO DAILY cap.cd.24h 08/13/17 Docusate Sodium [Colace -] 100 mg PO BID capsule 08/13/17 Insulin (Levemir) [Levemir Vial] 6 units SQ HS ml 08/13/17 Insulin Sliding Scale [Novolog Vial Sliding Scale -] 1 vial SQ HS units Insulin Sliding Scale [Novolog Vial Sliding Scale -] 1 vial SQ TIDAC units Magnesium Oxide [Mag-Ox -] 400 mg PO BID tablet 08/13/17 Polyethylene Glycol 3350 [Miralax 119 gm Btl -] 17 gm PO DAILY bottle 08/13/17 Family Disease History - Family Disease History Family Disease History: Diabetes: Brother (liver Ca, CKD), Heart Disease: Father , Mother (ill descript GI illness), Brother, CA: Brother, Other: Mother Review of Systems Unable to obtain ROS, reason: unable to obtain Physical Exam Vital Signs: Vital Signs Temperature 98.9 F 10/03/17 03:53 Pulse Rate 104 H 10/03/17 14:00 Respiratory Rate 14 10/03/17 14:00 Blood Pressure 106/78 10/03/17 14:00 O2 Sat by Pulse Oximetry (%) 97 10/03/17 12:00 Constitutional: Yes: Other Eyes: Yes: Conjunctiva Clear Neck: Yes: Supple Cardiovascular: Yes: Regular Rate and Rhythm, Tachycardia Respiratory: Yes: Intubated, Mechanically Ventilated, Other Gastrointestinal: Yes: Normal Bowel Sounds, Soft Musculoskeletal: Yes: WNL Extremities: Yes: WNL Neurological: Yes: Other Psychiatric: Yes: Other Labs: CBC, BMP 10/03/17 12:00 10/03/17 12:00 Imaging - Results Chest X-ray: Report Reviewed, Image Reviewed Assessment/Plan 76 year old male with a significant past medical history of COPD, GI bleed, diverticulosis, HLD, CVA, intussusception, umbilical hernia, DM, HTN, sinus cancer with excision and polypectomy who is now intubated and sedated and on pressors septic shock resp failure pneumonia dehydration uncontrolled dm plan will stop ceftriaxone cadena tart patient on vanco and zosyn resp support close monitoring pressors as needed rest as per the icu cc time 45 min
[2017-10-03 14:59] LABS: ARTERIAL BLD GAS O2 SATURATION 96.4 % (90-98.9); ARTERIAL BLOOD GAS PCO2 37.3 mmHg (35-45)
[2017-10-03] MEDS ORDERED: PIPERACILLIN/TAZOB 2.25 GM 2.25 GM/50 ML BAG IVPB SCH (15:00)
[2017-10-03 15:05] LABS: ALLENS TEST POSITIVE
[2017-10-03 15:10] LABS: ARTERIAL BLOOD GAS BASE EXCESS -11.8 meq/l (-2-2); ARTERIAL BLOOD GAS pH 7.22 (7.35-7.45)
[2017-10-03 16:25] LABS: ANION GAP 9 (8-16); BLOOD UREA NITROGEN 90 mg/dL (7-18); CALCIUM 7.5 mg/dL (8.5-10.1); CHLORIDE 117 mmol/L (98-107); CO2 18 mmol/L (21-32); CREATININE 2.8 mg/dL (0.7-1.3); GLUCOSE,RANDOM 181 mg/dL (74-106); POTASSIUM 4.9 mmol/L (3.5-5.1); SODIUM 144 mmol/L (136-145)
[2017-10-03] MEDS ORDERED: PT OWN MED DRAWER 7, Y5N ONE (16:35)
[2017-10-03] MEDS: MIDAZOLAM HCL 2 MG/2 ML SINGLE DOSE VIAL IVPUSH PRN ×2 (16:46→19:08)
[2017-10-03] MEDS: VANCOMYCIN 750 MG in DEXTROSE 5%-WATER - 250 ML IVPB SCH (16:51)
[2017-10-03] MEDS ORDERED: DEXTROSE 5%-WATER - 50 ML IVPB ONE (18:27)
[2017-10-03] MEDS ORDERED: PIPERACILLIN/TAZOBACTAM 2.25 GM VIAL IVPB ONE (18:27)
[2017-10-03] MEDS: PIPERACILLIN/TAZOB 2.25 GM 2.25 GM in DEXTROSE 5%-WATER - 50 ML IVPB SCH (19:09)
[2017-10-03] MEDS ORDERED: HEMOQUE TEST 1 EACH EACH ONE (20:06)
[2017-10-03] MEDS ORDERED: SODIUM CHLORIDE 0.9% 500 ML INFUS.BAG IV ONE ×2 (20:15→20:40)
[2017-10-03] MEDS ORDERED: MIDAZOLAM HCL 2 MG/2 ML SINGLE DOSE VIAL IVPUSH ONE (20:22)
[2017-10-03] MEDS: CHLORHEXIDINE GLUCONATE 4% CLEANSER FOR DECOLONIZATION TP SCH (21:39)
[2017-10-03 22:36] LABS: ARTERIAL BLD GAS O2 SATURATION 96.2 % (90-98.9); ARTERIAL BLOOD GAS BASE EXCESS -13.4 meq/l (-2-2); ARTERIAL BLOOD GAS PCO2 30.5 mmHg (35-45); ARTERIAL BLOOD GAS PO2 90.5 mmHg (70-100); ARTERIAL BLOOD GAS pH 7.24 (7.35-7.45)
[2017-10-03] MEDS ORDERED: AMIODARONE HCL 150 MG/3 ML VIAL IVPUSH ONE (22:37)
[2017-10-03] MEDS ORDERED: AMIODARONE HCL 150 MG/3 ML VIAL ONE (22:38)
[2017-10-03 22:41] LABS: ALLENS TEST POSITIVE
[2017-10-04] MEDS ORDERED: PHENYLEPHRINE HCL 10 MG/1 ML SINGLE DOSE VIAL ONE ×2 (00:06→06:07)
[2017-10-04] MEDS ORDERED: PIPERACILLIN/TAZOBACTAM 2.25 GM VIAL IVPB ONE ×3 (01:09→18:09)
[2017-10-04] MEDS ORDERED: DEXTROSE 5%-WATER - 50 ML IVPB ONE ×2 (01:09→18:09)
[2017-10-04] MEDS: PIPERACILLIN/TAZOB 2.25 GM 2.25 GM in DEXTROSE 5%-WATER - 50 ML IVPB SCH ×3 (01:14→18:14)
[2017-10-04] MEDS: MIDAZOLAM HCL 2 MG/2 ML SINGLE DOSE VIAL IVPUSH PRN (01:14)
[2017-10-04] MEDS: INSULIN REGULAR 100 UNITS in SODIUM CHLORIDE 99 ML IVPB SCH ×3 (01:17→14:07)
[2017-10-04] MEDS ORDERED: AMIODARONE IN DEXTROSE,ISO-OSM 360 MG/200 ML BAG ONE (01:44)
[2017-10-04] MEDS: AMIODARONE HCL INJECTION 450 MG in DEXTROSE 5%-WATER - 241 ML IVPB SCH (02:15)
[2017-10-04 06:22] LABS: HEMATOCRIT 29.9 % (35.4-49); MCH 30.7 pg (25.7-33.7); MCHC 33.4 g/dl (32.0-35.9); MEAN CELL VOLUME 91.7 fl (80-96); MEAN PLT VOLUME 8.6 fl (7.5-11.1); PLATELET COUNT 350 K/MM3 (134-434); RBC 3.26 M/mm3 (4.00-5.60); RDW 16.2 % (11.9-15.9); WHITE BLOOD COUNT 28.6 K/mm3 (4.0-10.0)
[2017-10-04] MEDS ORDERED: CEFTRIAXONE 2 GM in DEXTROSE 5%-WATER - 100 ML IVPB ONE (08:00)
[2017-10-04] MEDS ORDERED: DEXTROSE 5%-0.45% SALINE 1,000 ML IV SCH (08:30)
[2017-10-04 08:43] LABS: ANION GAP 13 (8-16); BLOOD UREA NITROGEN 90 mg/dL (7-18); CALCIUM 7.8 mg/dL (8.5-10.1); CHLORIDE 119 mmol/L (98-107); CO2 13 mmol/L (21-32); CREATININE 2.9 mg/dL (0.7-1.3); GLUCOSE,RANDOM 185 mg/dL (74-106); MAGNESIUM 1.9 mg/dL (1.8-2.4); PHOSPHOROUS 3.8 mg/dL (2.5-4.9); POTASSIUM 4.4 mmol/L (3.5-5.1); SODIUM 145 mmol/L (136-145)
[2017-10-04 08:53] LABS: ARTERIAL BLOOD GAS BASE EXCESS -12.9 meq/l (-2-2); ARTERIAL BLOOD GAS PCO2 28.4 mmHg (35-45); ARTERIAL BLOOD GAS PO2 87.2 mmHg (70-100); ARTERIAL BLOOD GAS pH 7.27 (7.35-7.45)
[2017-10-04 08:55] LABS: ALLENS TEST POSITIVE
[2017-10-04] MEDS ORDERED: PROPOFOL 1,000,000 MCG/100 ML VIAL ONE (09:10)
--- NOTE | 2017-10-04 09:36 | PN ---
Progress Note (short form) - Note Progress Note: Patient with a past history of Renal Failure, DM, Pneumonia, Toe Amputations, COPD, Nasal malignancy, SVT and PVD has been losing his appetite, having hiccups and glucose 400 and above on the day of admission and brought to ER. Here noted to have have labored breathing lactic acidosis with markedly elevated WBC, Glucose and renal lab. CXR possible infiltrate. Has refused to take insulin at home. Now in ICU intubated on IV Pressors, Amiodarone, Insulin and Antibiotics. Hx. ETOH and Smoking. On Exam: Vital Signs Temp 99.0 F 10/04/17 06:00 Pulse 87 10/04/17 08:26 Resp 29 H 10/04/17 08:26 BP 112/56 10/04/17 06:21 Pulse Ox 100 10/04/17 08:26 Intake & Output 10/03/17 10/03/17 10/04/17 11:59 23:59 11:59 Intake Total 9269 1063.5 Output Total 350 350 Balance 8919 713.5 Weight 112 lb 124 lb 8 oz Intake: IV 7269 1013.5 Cordarone Injection - 450 166.5 mg In D5w - 241 ml @ 1 MG/MIN 33.33 mls/hr IVPB TITR SELVIN Rx#:[id number] D5-1/2Ns - 1,000 ml @ 75 1150 525 mls/hr IV ASDIR SELVIN Rx#: [id number] NOVOLIN R VIAL *For 2035 7 IVPUSH or IV DRIP Only* 100 UNITS In Normal Saline - 99 ml @ 0.1 UNITS/KG/HR 5.71 mls/hr IVPB TITR SELVIN Rx#: [id number] Carlo-Synephrine - 20,000 895 315 Mcg In Normal Saline - 248 ml @ 100 MCG/MIN 75 mls/hr IVPB ASDIR SELVIN Rx# :[id number] Normal Saline - 1,000 ml 3188 @ 100 mls/hr IV ASDIR SELVIN Rx#:[id number] IVPB 2000 50 Output: Urine 350 350 [place] 350 350 Other: Voiding Method Indwelling Catheter Height 5 ft 6 in Body Mass Index (BMI) 18.1 Weight [facility] Aware ET tube in place Chest: Bilateral Rhonchi Cor: tachycardia Abd: Increaded bowel sounds, soft and mildly distended Ext: No Edema and no DP pulses Abnormal Lab Results 10/03/17 10/03/17 10/03/17 09:50 10:32 11:00 WBC RBC Hgb Hct RDW PT with INR INR ABG pH 7.18 L* ABG pCO2 at Pt Temp 45.7 H D ABG HCO3 16.4 L ABG O2 Content 14.4 L ABG Base Excess -11.2 L* Chloride 114 H Carbon Dioxide 18 L BUN 93 H Creatinine 3.0 H Random Glucose 137 H D Hemoglobin A1c % Lactic Acid Calcium 8.2 L AST ALT Total Protein Albumin Urine Protein 2+ H Urine Glucose (UA) 2+ H Urine Ketones Trace H 10/03/17 10/03/17 10/03/17 11:00 12:00 12:00 WBC 30.6 H* RBC 3.50 L Hgb 10.5 L D Hct 32.7 L RDW 16.1 H PT with INR 15.00 H INR 1.33 H ABG pH ABG pCO2 at Pt Temp ABG HCO3 ABG O2 Content ABG Base Excess Chloride Carbon Dioxide BUN Creatinine Random Glucose Hemoglobin A1c % Lactic Acid 2.6 H* Calcium AST ALT Total Protein Albumin Urine Protein Urine Glucose (UA) Urine Ketones 10/03/17 10/03/17 10/03/17 12:00 14:42 15:31 WBC RBC Hgb Hct RDW PT with INR INR ABG pH 7.22 L* ABG pCO2 at Pt Temp ABG HCO3 14.8 L* ABG O2 Content ABG Base Excess -11.8 L* Chloride 116 H 117 H Carbon Dioxide 17 L 18 L BUN 90 H 90 H Creatinine 2.8 H 2.8 H Random Glucose 133 H 181 H D Hemoglobin A1c % Lactic Acid Calcium 7.6 L 7.5 L AST 14 L D ALT 8 L Total Protein 4.4 L D Albumin 1.6 L D Urine Protein Urine Glucose (UA) Urine Ketones 10/03/17 10/04/17 10/04/17 22:17 06:00 06:00 WBC 28.6 H RBC 3.26 L Hgb 10.0 L Hct 29.9 L RDW 16.2 H PT with INR INR ABG pH 7.24 L* ABG pCO2 at Pt Temp 30.5 L ABG HCO3 12.6 L* ABG O2 Content 13.2 L ABG Base Excess -13.4 L* Chloride 119 H Carbon Dioxide 13 L D BUN 90 H Creatinine 2.9 H Random Glucose 185 H Hemoglobin A1c % Lactic Acid Calcium 7.8 L AST ALT Total Protein Albumin Urine Protein Urine Glucose (UA) Urine Ketones 10/04/17 10/04/17 06:00 08:40 WBC RBC Hgb Hct RDW PT with INR INR ABG pH 7.27 L ABG pCO2 at Pt Temp 28.4 L ABG HCO3 12.6 L* ABG O2 Content 12.8 L ABG Base Excess -12.9 L* Chloride Carbon Dioxide BUN Creatinine Random Glucose Hemoglobin A1c % 8.5 H D Lactic Acid Calcium AST ALT Total Protein Albumin Urine Protein Urine Glucose (UA) Urine Ketones IMP: Acute sepsis Uncontrolled DM Possible Acute Pneumonia Acute on Chronic Real Failure COPD Lactic Acidosis PVD Acute Respiratory Failure PLAN: F/U Lab and BGM ID, Pulmonary and Renal MD's Continue current Rx F/U CXR
[2017-10-04] MEDS: PROPOFOL 1,000,000 MCG/100 ML VIAL IVPB SCH (09:39)
[2017-10-04 09:52] LABS: PLATELET ESTIMATE NORMAL
--- NOTE | 2017-10-04 11:03 | CONSULT ---
Consult - text type - Consultation Consultation Note: Renal consult for SHANTA on CKD This is a 76 year old gentleman with PMhx of CKD (baseline Cr 1.4), COPD, GI bleed, HLD, CVA, DM, Hypertension, Diverticulosis who presented with elevated blood glucose levels and found to have Sepsis syndrome with PNA and SHANTA. Pt is currently intubated and sedated and unable to give history. Pt has been on vasopressers up until this am. Pt remains oliguric. on IVF. No contrast exposure. No RICARDO/ARB or nsaids. PMhx: as above Allergies: NKDA Family Hx: NC Social Hx: + smoker ROS: as per HPI Home Medications Medication Instructions Recorded Simvastatin [Zocor -] 20 mg PO HS 05/11/14 Timolol 0.5% [Timoptic] 1 drop OU DAILY 05/11/14 Ferrous Sulfate [Feosol] 325 mg PO DAILY #30 tablet 07/25/17 Albuterol 0.083% Nebulizer Petra 1 amp NEB Q4H PRN amp 08/13/17 [Ventolin 0.083% Nebulizer Soln -] Diltiazem Cd [Cardizem Cd -] 240 mg PO DAILY cap.cd.24h 08/13/17 Docusate Sodium [Colace -] 100 mg PO BID capsule 08/13/17 Insulin (Levemir) [Levemir Vial] 6 units SQ HS ml 08/13/17 Insulin Sliding Scale [Novolog 1 vial SQ HS units 08/13/17 Vial Sliding Scale -] Insulin Sliding Scale [Novolog 1 vial SQ TIDAC units 08/13/17 Vial Sliding Scale -] Magnesium Oxide [Mag-Ox -] 400 mg PO BID tablet 08/13/17 Polyethylene Glycol 3350 [Miralax 17 gm PO DAILY bottle 08/13/17 119 gm Btl -] Vital Signs Temperature 99.0 F 10/04/17 06:00 Pulse Rate 87 10/04/17 08:26 Respiratory Rate 29 H 10/04/17 08:26 Blood Pressure 112/56 10/04/17 06:21 O2 Sat by Pulse Oximetry (%) 100 10/04/17 08:26 Intake & Output 10/01/17 10/02/17 10/03/17 10/04/17 23:59 23:59 23:59 23:59 Intake Total 9269 1063.5 Output Total 350 350 Balance 8919 713.5 Weight 57.153 kg 50.802 kg 56.472 kg NAD on Vent via ET tube Neck supple, no JVD tachycardic, no murmur or rub Dec Bs at left lung base soft NT/ND Abd lazcano in place no LE edema, clubbing or cyanosis. Legs are cool pt is sedated. CBC, BMP 10/04/17 06:00 10/04/17 06:00 Laboratory Tests 08/11/17 10/03/17 10/04/17 05:30 10:32 06:00 MCV 91.7 ABG pH ABG pCO2 at Pt Temp ABG pO2 at Pt Temp Hemoglobin A1c % Calcium 7.8 L Phosphorus 2.4 L D Magnesium 1.9 Urine Protein 2+ H Urine Glucose (UA) 2+ H 10/04/17 10/04/17 10/04/17 06:00 06:00 08:40 MCV ABG pH 7.27 L ABG pCO2 at Pt Temp 28.4 L ABG pO2 at Pt Temp 87.2 Hemoglobin A1c % 8.5 H D Calcium 7.8 L Phosphorus 3.8 Magnesium 1.9 Urine Protein Urine Glucose (UA) Current Medications Chlorhexidine Gluconate (Hibiclens For Decolonization -) 1 applic TP HS [facility] Last Admin: 10/03/17 21:39 Dose: 1 applic Heparin Sodium (Porcine) (Heparin -) 5,000 unit SQ BID SELVIN Last Admin: 10/03/17 21:39 Dose: 5,000 unit Azithromycin 500 mg/ Dextrose 250 mls @ 250 mls/hr IVPB DAILY [facility] Phenylephrine HCl 20,000 mcg/ (Sodium Chloride) 250 mls @ 75 mls/hr IVPB ASDIR SELVIN; 100 MCG/MIN PRN Reason: Protocol Last Titration: 10/04/17 06:21 Dose: 60 mcg/min, 45 mls/hr Dextrose/Sodium Chloride (D5-1/2ns -) 1,000 mls @ 75 mls/hr IV ASDIR SELVIN Last Admin: 10/03/17 12:36 Dose: 75 mls/hr Vancomycin HCl 750 mg/ (Dextrose) 250 mls @ 250 mls/hr IVPB DAILY [facility] PRN Reason: Protocol Last Admin: 10/03/17 16:51 Dose: 250 mls/hr Piperacillin Sod/Tazobactam (Sod 2.25 gm/ Dextrose) 50 mls @ 100 mls/hr IVPB Q8H-IV SELVIN Last Admin: 10/04/17 01:14 Dose: 100 mls/hr Vasopressin 50 units/ Sodium (Chloride) 100 mls @ 24 mls/hr IVPB TITR SELVIN; 0.2 UNITS/MIN PRN Reason: Protocol Amiodarone HCl 450 mg/ (Dextrose) 250 mls @ 33.33 mls/hr IVPB TITR SELVIN; 1 MG/ MIN PRN Reason: Protocol Last Titration: 10/04/17 08:30 Dose: 0.5 mg/min, 16.66 mls/hr Dextrose/Sodium Chloride (D5-1/2ns -) 1,000 mls @ 100 mls/hr IV ASDIR SELVIN Propofol (Diprivan -) 1,000,000 mcg in 100 mls @ 3.388 mls/hr IVPB TITR SELVIN; 10 MCG/KG/MIN PRN Reason: Protocol Last Admin: 10/04/17 09:39 Dose: 10 mcg/kg/min, 3.388 mls/hr Insulin Aspart (Novolog Vial Sliding Scale -) 1 vial SQ ACHS SELVIN PRN Reason: Protocol Metoprolol Tartrate (Lopressor Injection -) 5 mg IVPUSH Q4H PRN PRN Reason: TACHYCARDIA Midazolam HCl (Versed -) 2 mg IVPUSH Q2H PRN PRN Reason: AGITATION Last Admin: 10/04/17 01:14 Dose: 2 mg Mupirocin (Bactroban Ointment (For Decolonization) -) 1 applic NS BID ESLVIN Stop: 10/08/17 09:59 Last Admin: 10/03/17 21:38 Dose: 1 applic Sodium Chloride (Normal Saline -) 1,500 ml IV ONCE SELVIN Last Admin: 10/03/17 11:00 Dose: 1,500 ml 76 year old male with a significant past medical history of COPD, GI bleed, diverticulosis, HLD, CVA, intussusception, umbilical hernia, DM, HTN, sinus cancer with excision and polypectomy who presents to the ED, accompanied by , s/p high blood sugar levels earlier today. 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 Keep MAP > 65, CVP 10-12 Change IVF to D51/2 NS with 75 meq of sodium bicarb Continue Abx as per ID ICU monitoring Trend CBC holding all antihypertensives at this time Discussed case with , advised her that if there is no significant improvement in renal function in next 24-48 hours that he may warrant acute dialysis. Thank you Will follow Tomás Al DO
[2017-10-04] MEDS ORDERED: DEXTROSE 5%-WATER - 100 ML IVPB ONE (11:07)
[2017-10-04] MEDS: METOPROLOL TARTRATE 5 MG/5 ML VIAL IVPUSH PRN ×2 (11:08→18:22)
[2017-10-04] MEDS: HEPARIN NA (PORCINE) 5,000 UNITS/ML 1ML VIAL SQ SCH ×2 (11:23→21:38)
[2017-10-04] MEDS: VANCOMYCIN 750 MG in DEXTROSE 5%-WATER - 250 ML IVPB SCH (11:23)
[2017-10-04] MEDS: MUPIROCIN 2% TOPICAL OINTMENT FOR DECOLONIZATION NS SCH ×2 (11:26→21:38)
[2017-10-04] MEDS ORDERED: PT OWN MED DRAWER 7, Y5N ONE (11:28)
[2017-10-04] MEDS: AZITHROMYCIN IVPB 500 MG in DEXTROSE 5%-WATER - 250 ML IVPB SCH (11:29)
[2017-10-04] MEDS ORDERED: DEXTROSE 5%-0.45% SALINE 925 ML with SODIUM BICARBONATE 8.4% - 75 MEQ IV SCH ×2 (11:30→12:02)
[2017-10-04] MEDS ORDERED: SODIUM CHLORIDE 1,000 ML IV SCH (12:15)
[2017-10-04 13:14] LABS: ANION GAP 11 (8-16); BLOOD UREA NITROGEN 88 mg/dL (7-18); CALCIUM 7.3 mg/dL (8.5-10.1); CHLORIDE 117 mmol/L (98-107); CO2 13 mmol/L (21-32); POTASSIUM 4.5 mmol/L (3.5-5.1); SODIUM 141 mmol/L (136-145)
[2017-10-04 13:16] LABS: GLUCOSE,RANDOM 335 mg/dL (74-106)
[2017-10-04] MEDS: INSULIN SLIDING SCALE (NOVOLOG) 1 VIAL SQ SCH ×3 (13:43→21:40)
[2017-10-04] MEDS ORDERED: SODIUM CHLORIDE 0.45% 1,000 ML IV SCH (14:00)
[2017-10-04] MEDS ORDERED: INSULIN (LEVEMIR) 100 UNITS/ML UNITS SQ ONE (14:00)
[2017-10-04] MEDS ORDERED: FUROSEMIDE 40 MG/4 ML INJECTABLE VIAL IVPUSH ONE (14:00)
--- NOTE | 2017-10-04 14:03 | PN ---
Teaching Attending Note Name of Resident: Curt Caputo ATTENDING PHYSICIAN STATEMENT I saw and evaluated the patient. I reviewed the resident's note and discussed the case with the resident. I agree with the resident's findings and plan as documented. SUBJECTIVE: Pt seen and examined in the ICU. Remains intubated, sedated. Off phenylephrine gtt. Anion gap closed, tapered off insulin gtt. Started on bicarb gtt per renal. OBJECTIVE: Last Vital Signs Temp Pulse Resp BP Pulse Ox 99.0 F 116 H 28 H 103/68 100 10/04/17 06:00 10/04/17 11:42 10/04/17 13:37 10/04/17 11:42 10/04/17 08:26 Intake & Output 10/01/17 10/02/17 10/03/17 10/04/17 23:59 23:59 23:59 23:59 Intake Total 9269 1063.5 Output Total 350 350 Balance 8919 713.5 Weight 57.153 kg 50.802 kg 56.472 kg Gen: intubated, sedated, tachypneic Heart: tachycardic, regular Lung: bilateral rhonchi, R>L Abd: soft, nontender Ext: trace edema CBC, BMP 10/04/17 06:00 10/04/17 12:45 Active Medications Chlorhexidine Gluconate (Hibiclens For Decolonization -) 1 applic TP HS SELVIN Last Admin: 10/03/17 21:39 Dose: 1 applic Furosemide (Lasix Injection -) 80 mg IVPUSH ONCE ONE Stop: 10/04/17 14:01 Last Admin: 10/04/17 13:53 Dose: Not Given Heparin Sodium (Porcine) (Heparin -) 5,000 unit SQ BID SELVIN Last Admin: 10/04/17 11:23 Dose: 5,000 unit Azithromycin 500 mg/ Dextrose 250 mls @ 250 mls/hr IVPB DAILY SELVIN Last Admin: 10/04/17 11:29 Dose: 250 mls/hr Phenylephrine HCl 20,000 mcg/ (Sodium Chloride) 250 mls @ 75 mls/hr IVPB ASDIR SELVIN; 100 MCG/MIN PRN Reason: Protocol Last Titration: 10/04/17 06:21 Dose: 60 mcg/min, 45 mls/hr Vancomycin HCl 750 mg/ (Dextrose) 250 mls @ 250 mls/hr IVPB DAILY SELVIN PRN Reason: Protocol Last Admin: 10/04/17 11:23 Dose: 250 mls/hr Piperacillin Sod/Tazobactam (Sod 2.25 gm/ Dextrose) 50 mls @ 100 mls/hr IVPB Q8H-IV SELVIN Last Admin: 10/04/17 11:25 Dose: 100 mls/hr Vasopressin 50 units/ Sodium (Chloride) 100 mls @ 24 mls/hr IVPB TITR SELVIN; 0.2 UNITS/MIN PRN Reason: Protocol Amiodarone HCl 450 mg/ (Dextrose) 250 mls @ 33.33 mls/hr IVPB TITR SELVIN; 1 MG/ MIN PRN Reason: Protocol Last Titration: 10/04/17 08:30 Dose: 0.5 mg/min, 16.66 mls/hr Propofol (Diprivan -) 1,000,000 mcg in 100 mls @ 3.388 mls/hr IVPB TITR SELVIN; 10 MCG/KG/MIN PRN Reason: Protocol Last Admin: 10/04/17 09:39 Dose: 10 mcg/kg/min, 3.388 mls/hr Sodium Bicarbonate 75 meq/ (Dextrose/Sodium Chloride) 1,075 mls @ 100 mls/hr IV Q10H SELVIN Sodium Chloride (1/2 Normal Saline) 1,000 mls @ 75 mls/hr IV ASDIR SELVIN Insulin Aspart (Novolog Vial Sliding Scale -) 1 vial SQ ACHS SELVIN PRN Reason: Protocol Last Admin: 10/04/17 13:43 Dose: Not Given Insulin Detemir (Levemir Vial) 3 units SQ NOW ONE Stop: 10/04/17 14:01 Metoprolol Tartrate (Lopressor Injection -) 5 mg IVPUSH Q4H PRN PRN Reason: TACHYCARDIA Last Admin: 10/04/17 11:08 Dose: 5 mg Midazolam HCl (Versed -) 2 mg IVPUSH Q2H PRN PRN Reason: AGITATION Last Admin: 10/04/17 01:14 Dose: 2 mg Mupirocin (Bactroban Ointment (For Decolonization) -) 1 applic NS BID SELVIN Stop: 10/08/17 09:59 Last Admin: 10/04/17 11:26 Dose: 1 applic ASSESSMENT AND PLAN: Acute Hypoxic Respiratory Failure Pneumonia Septic Shock Acute on Chronic Renal Failure Lactic Acidosis Diabetic Ketoacidosis improving HTN DM COPD - continue antibiotics - f/u cultures - IVF, bicarb gtt - monitor urine output, creatinine - I/Os - glucose control - taper FiO2 to keep SpO2 >90% - monitoring off pressors - ABG in AM - if acid base disorder improved and can taper FiO2 to 40%, hold sedation AM to assess mental status - spontaneous breathing trials as tolerated when mental status improved - enteral feeds if unable to extubate - DVT/GI prophylaxis critical care time spent in reviewing chart, evaluating patient and formulating plan 35 min
--- NOTE | 2017-10-04 14:38 | PN ---
Physical Exam: SUBJECTIVE: Patient seen and examined in ICU. Intubated, not able to communicate. No acute events overnight. Patient's gap has closed. Phenylephrine weaned off. OBJECTIVE: Vital Signs Period Temp Pulse Resp BP Sys/Sy Pulse Ox Last 24 Hr 98.9 F-99.9 F 87-133 16-29 79-123/46-68 97-100 GENERAL: Intubated, sedated HEAD: Normal with no signs of trauma. EYES: PERRL, extraocular movements intact, sclera anicteric, conjunctiva clear. No ptosis. NECK: Trachea midline, full range of motion, supple. LUNGS: Coarse breath sounds on lower right base, no accessory muscle use. HEART: Regular rate and rhythm, S1, S2 without murmur, rub or gallop. EXTREMITIES: 2+ pulses, warm, well-perfused, no edema. NEUROLOGICAL: Cranial nerves II through XII grossly intact. Sedated. SKIN: Warm, dry, normal turgor, no rashes or lesions noted Laboratory Results - last 24 hr 10/02/17 10/03/17 10/03/17 22:43 05:40 07:47 WBC RBC Hgb Hct MCV MCH MCHC RDW Plt Count MPV Neutrophils % Neutrophils % (Manual) Band Neutrophils % Lymphocytes % Lymphocytes % (Manual) Monocytes % (Manual) Eosinophils % (Manual) Basophils % (Manual) Myelocytes % (Man) Promyelocytes % (Man) Blast Cells % (Manual) Nucleated RBC % Metamyelocytes Platelet Estimate Poikilocytosis Felicia Cells Puncture Site ABG pH ABG pCO2 at Pt Temp ABG pO2 at Pt Temp ABG HCO3 ABG O2 Sat (Measured) ABG O2 Content ABG Base Excess Ra Test O2 Delivery Device Oxygen Flow Rate Vent Mode Vent Rate Mechanical Rate PEEP Pressure Support Vent Sodium Potassium Chloride Carbon Dioxide Anion Gap BUN Creatinine POC Glucometer > 400 > 400 > 400 Random Glucose Hemoglobin A1c % Calcium Phosphorus Magnesium 10/03/17 10/03/17 10/03/17 09:33 13:16 14:42 WBC RBC Hgb Hct MCV MCH MCHC RDW Plt Count MPV Neutrophils % Neutrophils % (Manual) Band Neutrophils % Lymphocytes % Lymphocytes % (Manual) Monocytes % (Manual) Eosinophils % (Manual) Basophils % (Manual) Myelocytes % (Man) Promyelocytes % (Man) Blast Cells % (Manual) Nucleated RBC % Metamyelocytes Platelet Estimate Poikilocytosis Stanton Cells Puncture Site Right radial ABG pH 7.22 L* ABG pCO2 at Pt Temp 37.3 ABG pO2 at Pt Temp 98.0 ABG HCO3 14.8 L* ABG O2 Sat (Measured) 96.4 ABG O2 Content 16.9 ABG Base Excess -11.8 L* Ra Test Positive O2 Delivery Device Other Oxygen Flow Rate 60 Vent Mode A/c Vent Rate 12 Mechanical Rate Esprit PEEP 5.0 Pressure Support Vent 450 Sodium Potassium Chloride Carbon Dioxide Anion Gap BUN Creatinine POC Glucometer 294.11457 202.10971 Random Glucose Hemoglobin A1c % Calcium Phosphorus Magnesium 10/03/17 10/03/17 10/03/17 15:31 17:01 19:14 WBC RBC Hgb Hct MCV MCH MCHC RDW Plt Count MPV Neutrophils % Neutrophils % (Manual) Band Neutrophils % Lymphocytes % Lymphocytes % (Manual) Monocytes % (Manual) Eosinophils % (Manual) Basophils % (Manual) Myelocytes % (Man) Promyelocytes % (Man) Blast Cells % (Manual) Nucleated RBC % Metamyelocytes Platelet Estimate Poikilocytosis Felicia Cells Puncture Site ABG pH ABG pCO2 at Pt Temp ABG pO2 at Pt Temp ABG HCO3 ABG O2 Sat (Measured) ABG O2 Content ABG Base Excess Ra Test O2 Delivery Device Oxygen Flow Rate Vent Mode Vent Rate Mechanical Rate PEEP Pressure Support Vent Sodium 144 Potassium 4.9 Chloride 117 H Carbon Dioxide 18 L Anion Gap 9 BUN 90 H Creatinine 2.8 H POC Glucometer 259.55163 295.18141 Random Glucose 181 H D Hemoglobin A1c % Calcium 7.5 L Phosphorus Magnesium 10/03/17 10/03/17 10/03/17 20:09 22:17 22:35 WBC RBC Hgb Hct MCV MCH MCHC RDW Plt Count MPV Neutrophils % Neutrophils % (Manual) Band Neutrophils % Lymphocytes % Lymphocytes % (Manual) Monocytes % (Manual) Eosinophils % (Manual) Basophils % (Manual) Myelocytes % (Man) Promyelocytes % (Man) Blast Cells % (Manual) Nucleated RBC % Metamyelocytes Platelet Estimate Poikilocytosis Felicia Cells Puncture Site Left radial ABG pH 7.24 L* ABG pCO2 at Pt Temp 30.5 L ABG pO2 at Pt Temp 90.5 ABG HCO3 12.6 L* ABG O2 Sat (Measured) 96.2 ABG O2 Content 13.2 L ABG Base Excess -13.4 L* Ra Test Positive O2 Delivery Device Vent Oxygen Flow Rate 60% Vent Mode Vent Rate 12 Mechanical Rate Yes PEEP 5.0 Pressure Support Vent 450 Sodium Potassium Chloride Carbon Dioxide Anion Gap BUN Creatinine POC Glucometer 280.58642 243.09507 Random Glucose Hemoglobin A1c % Calcium Phosphorus Magnesium 10/04/17 10/04/17 10/04/17 00:19 01:39 03:59 WBC RBC Hgb Hct MCV MCH MCHC RDW Plt Count MPV Neutrophils % Neutrophils % (Manual) Band Neutrophils % Lymphocytes % Lymphocytes % (Manual) Monocytes % (Manual) Eosinophils % (Manual) Basophils % (Manual) Myelocytes % (Man) Promyelocytes % (Man) Blast Cells % (Manual) Nucleated RBC % Metamyelocytes Platelet Estimate Poikilocytosis Felicia Cells Puncture Site ABG pH ABG pCO2 at Pt Temp ABG pO2 at Pt Temp ABG HCO3 ABG O2 Sat (Measured) ABG O2 Content ABG Base Excess Ra Test O2 Delivery Device Oxygen Flow Rate Vent Mode Vent Rate Mechanical Rate PEEP Pressure Support Vent Sodium Potassium Chloride Carbon Dioxide Anion Gap BUN Creatinine POC Glucometer 221.73987 231.77423 245.01063 Random Glucose Hemoglobin A1c % Calcium Phosphorus Magnesium 10/04/17 10/04/17 10/04/17 06:00 06:00 06:00 WBC 28.6 H RBC 3.26 L Hgb 10.0 L Hct 29.9 L MCV 91.7 MCH 30.7 MCHC 33.4 RDW 16.2 H Plt Count 350 MPV 8.6 Neutrophils % No Result Required. Neutrophils % (Manual) 89.9 H D Band Neutrophils % 7.1 Lymphocytes % No Result Required. Lymphocytes % (Manual) 2.0 L D Monocytes % (Manual) 1 L Eosinophils % (Manual) 0.0 Basophils % (Manual) 0.0 Myelocytes % (Man) 0 Promyelocytes % (Man) 0 D Blast Cells % (Manual) 0 Nucleated RBC % 0 Metamyelocytes 0 D Platelet Estimate Normal Poikilocytosis 3+ Felicia Cells 3+ Puncture Site ABG pH ABG pCO2 at Pt Temp ABG pO2 at Pt Temp ABG HCO3 ABG O2 Sat (Measured) ABG O2 Content ABG Base Excess Ra Test O2 Delivery Device Oxygen Flow Rate Vent Mode Vent Rate Mechanical Rate PEEP Pressure Support Vent Sodium 145 Potassium 4.4 Chloride 119 H Carbon Dioxide 13 L D Anion Gap 13 BUN 90 H Creatinine 2.9 H POC Glucometer Random Glucose 185 H Hemoglobin A1c % 8.5 H D Calcium 7.8 L Phosphorus 3.8 Magnesium 1.9 10/04/17 10/04/17 10/04/17 06:25 08:08 08:40 WBC RBC Hgb Hct MCV MCH MCHC RDW Plt Count MPV Neutrophils % Neutrophils % (Manual) Band Neutrophils % Lymphocytes % Lymphocytes % (Manual) Monocytes % (Manual) Eosinophils % (Manual) Basophils % (Manual) Myelocytes % (Man) Promyelocytes % (Man) Blast Cells % (Manual) Nucleated RBC % Metamyelocytes Platelet Estimate Poikilocytosis Stanton Cells Puncture Site Right brachial ABG pH 7.27 L ABG pCO2 at Pt Temp 28.4 L ABG pO2 at Pt Temp 87.2 ABG HCO3 12.6 L* ABG O2 Sat (Measured) 96.0 ABG O2 Content 12.8 L ABG Base Excess -12.9 L* Ra Test Positive O2 Delivery Device Vent Oxygen Flow Rate 50% Vent Mode A/c Vent Rate 16 Mechanical Rate Yes PEEP 5.0 Pressure Support Vent Tidal volume 450 Sodium Potassium Chloride Carbon Dioxide Anion Gap BUN Creatinine POC Glucometer 258.56453 134.47427 Random Glucose Hemoglobin A1c % Calcium Phosphorus Magnesium 10/04/17 10/04/17 10:09 12:45 WBC RBC Hgb Hct MCV MCH MCHC RDW Plt Count MPV Neutrophils % Neutrophils % (Manual) Band Neutrophils % Lymphocytes % Lymphocytes % (Manual) Monocytes % (Manual) Eosinophils % (Manual) Basophils % (Manual) Myelocytes % (Man) Promyelocytes % (Man) Blast Cells % (Manual) Nucleated RBC % Metamyelocytes Platelet Estimate Poikilocytosis Stanton Cells Puncture Site ABG pH ABG pCO2 at Pt Temp ABG pO2 at Pt Temp ABG HCO3 ABG O2 Sat (Measured) ABG O2 Content ABG Base Excess Ra Test O2 Delivery Device Oxygen Flow Rate Vent Mode Vent Rate Mechanical Rate PEEP Pressure Support Vent Sodium 141 Potassium 4.5 Chloride 117 H Carbon Dioxide 13 L Anion Gap 11 BUN 88 H Creatinine 3.0 H POC Glucometer 325.63562 Random Glucose 335 H* D Hemoglobin A1c % Calcium 7.3 L Phosphorus Magnesium Active Medications Generic Name Dose Route Start Last Admin Trade Name Ty PRN Reason Stop Dose Admin Chlorhexidine Gluconate 1 applic 10/03/17 22:00 10/03/17 21:39 Hibiclens For Decolonization - TP 1 applic HS SELVIN Administration Heparin Sodium (Porcine) 5,000 unit 10/03/17 10:00 10/04/17 11:23 Heparin - SQ 5,000 unit BID SELVIN Administration Azithromycin 500 mg/ Dextrose 250 mls @ 250 mls/hr 10/04/17 10:00 10/04/17 11 :29 IVPB 250 mls/hr DAILY SELVIN Administration Phenylephrine HCl 20,000 mcg/ 250 mls @ 75 mls/hr 10/03/17 10:30 10/04/17 06: 21 Sodium Chloride IVPB 60 mcg/min ASDIR SELVIN 45 mls/hr Protocol Titration 100 MCG/MIN Vancomycin HCl 750 mg/ 250 mls @ 250 mls/hr 10/03/17 15:15 10/04/17 11:23 Dextrose IVPB 250 mls/hr DAILY SELVIN Administration Protocol Piperacillin Sod/Tazobactam 50 mls @ 100 mls/hr 10/03/17 18:00 10/04/17 11:25 Sod 2.25 gm/ Dextrose IVPB 100 mls/hr Q8H-IV SELVIN Administration Vasopressin 50 units/ Sodium 100 mls @ 24 mls/hr 10/03/17 23:15 Chloride IVPB TITR SELVIN Protocol 0.2 UNITS/MIN Amiodarone HCl 450 mg/ 250 mls @ 33.33 mls/hr 10/04/17 02:30 10/04/17 08:30 Dextrose IVPB 0.5 mg/min TITR SELVIN 16.66 mls/hr Protocol Titration 1 MG/MIN Propofol 1,000,000 mcg in 100 mls @ 3.388 mls/hr 10/04/17 09:15 10/04/17 09: 39 Diprivan - IVPB 10 mcg/kg/min TITR SELVIN 3.388 mls/hr Protocol Administration 10 MCG/KG/MIN Sodium Bicarbonate 75 meq/ 1,075 mls @ 100 mls/hr 10/04/17 14:30 Sodium Chloride IV Q10H SELVIN Insulin Aspart 1 vial 10/04/17 11:00 10/04/17 13:43 Novolog Vial Sliding Scale - SQ Not Given ACHS [facility] Protocol Insulin Detemir 6 units 04/10/18 22:00 Levemir Vial SQ HS [facility] Metoprolol Tartrate 5 mg 10/03/17 19:00 10/04/17 11:08 Lopressor Injection - IVPUSH 5 mg Q4H PRN Administration TACHYCARDIA Midazolam HCl 2 mg 10/03/17 14:35 10/04/17 01:14 Versed - IVPUSH 2 mg Q2H PRN Administration AGITATION Mupirocin 1 applic 10/03/17 10:00 10/04/17 11:26 Bactroban Ointment (For Decolonization) - NS 10/08/17 09:59 1 applic BID SELVIN Administration ASSESSMENT/PLAN: 76M with history of COPD, IDDM, HTN, GI bleed, diverticulosis, HLD, CVA, inutssception with pneumonia and DKA. Weaned off phenylephrine today, BPs stable with no pressors. CXR shows mild improvement. ID #Community acquired pneumonia - Appreciate ID reqs - Vanc 750, Zosyn, Azithromycin Respiratory #Respiratory failure - Intubated - ABGs daily - Monitor vent settings, low tidal volume settings Endo #DKA - Gap resolved, insulin drip discontinued - Started on bicarb drip per renal for low bicarb - Continue to closely monitor electrolytes #DM - Given levemir 3U today, will start on 6U daily tomorrow - Sliding scale CV #Afib w/RVR - No history of afib, run of irregular heartbeat with rates in 130s in ICU - Amio drip - Metoprolol 5mg PRN Q4Hr Neuro - Sedated with propofol FEN/GI - Glucerna feed - Bicarb drip PPx: Heparin Visit type - Emergency Visit Emergency Visit: Yes ED Registration Date: 10/03/17 Care time: The patient presented to the Emergency Department on the above date and was hospitalized for further evaluation of their emergent condition. - New Patient This patient is new to me today: Yes Date on this admission: 10/04/17 - Critical Care Critical Care patient: Yes Total Critical Care Time (in minutes): 35 Critical Care Statement: The care of this patient involved high complexity decision making to prevent further life threatening deterioration of the patient 's condition and/or to evaluate & treat vital organ system(s) failure or risk of failure.
--- NOTE | 2017-10-04 15:12 | PN ---
Progress Note, BUSINESS APPLICATIONS ANALYST - Note Progress Note: Pt intubated. Assessment deferred.
[2017-10-04] MEDS: SODIUM BICARBONATE 8.4% - 75 MEQ in SODIUM CHLORIDE 0.45% 1,000 ML IV SCH (15:22)
--- NOTE | 2017-10-04 16:21 | PN ---
Progress Note, Physician History of Present Illness: continues to be intubated and sedated wbc trending down still on the high side on bicarb - Current Medication List Current Medications: Active Medications Chlorhexidine Gluconate (Hibiclens For Decolonization -) 1 applic TP HS SELVIN Last Admin: 10/03/17 21:39 Dose: 1 applic Heparin Sodium (Porcine) (Heparin -) 5,000 unit SQ BID SELVIN Last Admin: 10/04/17 11:23 Dose: 5,000 unit Azithromycin 500 mg/ Dextrose 250 mls @ 250 mls/hr IVPB DAILY SELVIN Last Admin: 10/04/17 11:29 Dose: 250 mls/hr Phenylephrine HCl 20,000 mcg/ (Sodium Chloride) 250 mls @ 75 mls/hr IVPB ASDIR SELVIN; 100 MCG/MIN PRN Reason: Protocol Last Titration: 10/04/17 06:21 Dose: 60 mcg/min, 45 mls/hr Vancomycin HCl 750 mg/ (Dextrose) 250 mls @ 250 mls/hr IVPB DAILY SELVIN PRN Reason: Protocol Last Admin: 10/04/17 11:23 Dose: 250 mls/hr Piperacillin Sod/Tazobactam (Sod 2.25 gm/ Dextrose) 50 mls @ 100 mls/hr IVPB Q8H-IV SELVIN Last Admin: 10/04/17 11:25 Dose: 100 mls/hr Vasopressin 50 units/ Sodium (Chloride) 100 mls @ 24 mls/hr IVPB TITR SELVIN; 0.2 UNITS/MIN PRN Reason: Protocol Amiodarone HCl 450 mg/ (Dextrose) 250 mls @ 33.33 mls/hr IVPB TITR SELVIN; 1 MG/ MIN PRN Reason: Protocol Last Titration: 10/04/17 08:30 Dose: 0.5 mg/min, 16.66 mls/hr Propofol (Diprivan -) 1,000,000 mcg in 100 mls @ 3.388 mls/hr IVPB TITR SELVIN; 10 MCG/KG/MIN PRN Reason: Protocol Last Admin: 10/04/17 09:39 Dose: 10 mcg/kg/min, 3.388 mls/hr Sodium Bicarbonate 75 meq/ (Sodium Chloride) 1,075 mls @ 100 mls/hr IV Q10H SELVIN Last Admin: 10/04/17 15:22 Dose: 100 mls/hr Insulin Aspart (Novolog Vial Sliding Scale -) 1 vial SQ ACHS [facility] PRN Reason: Protocol Last Admin: 10/04/17 13:43 Dose: Not Given Insulin Detemir (Levemir Vial) 6 units SQ HS SELVIN Metoprolol Tartrate (Lopressor Injection -) 5 mg IVPUSH Q4H PRN PRN Reason: TACHYCARDIA Last Admin: 10/04/17 11:08 Dose: 5 mg Midazolam HCl (Versed -) 2 mg IVPUSH Q2H PRN PRN Reason: AGITATION Last Admin: 10/04/17 01:14 Dose: 2 mg Mupirocin (Bactroban Ointment (For Decolonization) -) 1 applic NS BID SELVIN Stop: 10/08/17 09:59 Last Admin: 10/04/17 11:26 Dose: 1 applic - Objective Vital Signs: Vital Signs Temperature 99.3 F 10/04/17 15:00 Pulse Rate 90 10/04/17 15:00 Respiratory Rate 28 H 10/04/17 16:18 Blood Pressure 102/47 10/04/17 15:00 O2 Sat by Pulse Oximetry (%) 100 10/04/17 10:19 Constitutional: Yes: Other Neck: Yes: Supple Cardiovascular: Yes: Regular Rate and Rhythm Respiratory: Yes: Intubated, Mechanically Ventilated Gastrointestinal: Yes: Normal Bowel Sounds, Soft Extremities: Yes: WNL Neurological: Yes: Other Psychiatric: Yes: Other Labs: CBC, BMP 10/04/17 06:00 10/04/17 12:45 INR, PTT INR 1.33 (0.82-1.09) H 10/03/17 12:00 Assessment/Plan 76 year old male with a significant past medical history of COPD, GI bleed, diverticulosis, HLD, CVA, intussusception, umbilical hernia, DM, HTN, sinus cancer with excision and polypectomy who is now intubated and sedated and on pressors Acute Hypoxic Respiratory Failure Pneumonia Septic Shock Acute on Chronic Renal Failure Lactic Acidosis Diabetic Ketoacidosis improving HTN DM COPD cx result noted plan continue current abx await for patient to stabilize once we have sensitivities probably will deescalate vanco nutrition follow imaging studies rest as per icu cc time 40 min
[2017-10-04] MEDS ORDERED: HEMOQUE TEST 1 EACH EACH ONE (20:48)
[2017-10-04] MEDS: VASOPRESSIN 50 UNITS in SODIUM CHLORIDE 97.5 ML IVPB SCH (21:25)
[2017-10-04] MEDS: PHENYLEPHRINE HCL 20,000 MCG in SODIUM CHLORIDE 248 ML IVPB SCH (21:25)
[2017-10-04] MEDS: CHLORHEXIDINE GLUCONATE 4% CLEANSER FOR DECOLONIZATION TP SCH (21:39)
[2017-10-04] MEDS ORDERED: DEXTROSE 5%-0.45% SALINE 1,000 ML with SODIUM BICARBONATE 8.4% - 75 MEQ IV SCH (22:02)
--- NOTE | 2017-10-04 23:54 | EKG ---
Test Reason : Blood Pressure : / mmHG Vent. Rate : 118 BPM Atrial Rate : 118 BPM P-R Int : 000 ms QRS Dur : 088 ms QT Int : 320 ms P-R-T Axes : 000 067 109 degrees QTc Int : 448 ms SINUS TACHYCARDIA WITH PREMATURE SUPRAVENTRICULAR COMPLEXES BURST OF ATRIAL ARRHYTHMIA NONSPECIFIC T WAVE ABNORMALITY ABNORMAL ECG WHEN COMPARED WITH ECG OF 03-OCT-2017 00:29, ATRIAL ARRHYTHMIA IS SEEN Confirmed by HEMA FRANCIS, NEGRO ([id number]) on 10/04/2017 11:54:00 PM Referred By: Confirmed By:NEGRO GARRIDO MD
[2017-10-05] MEDS: VASOPRESSIN 50 UNITS in SODIUM CHLORIDE 97.5 ML IVPB SCH (00:39)
[2017-10-05] MEDS: SODIUM BICARBONATE 8.4% - 75 MEQ in SODIUM CHLORIDE 0.45% 1,000 ML IV SCH ×2 (00:39→10:33)
[2017-10-05] MEDS ORDERED: PIPERACILLIN/TAZOBACTAM 2.25 GM VIAL IVPB ONE ×4 (01:03→22:04)
[2017-10-05] MEDS ORDERED: DEXTROSE 5%-WATER - 50 ML IVPB ONE ×4 (01:03→22:04)
[2017-10-05] MEDS: PIPERACILLIN/TAZOB 2.25 GM 2.25 GM in DEXTROSE 5%-WATER - 50 ML IVPB SCH ×3 (01:07→17:26)
[2017-10-05] MEDS: AMIODARONE HCL INJECTION 450 MG in DEXTROSE 5%-WATER - 241 ML IVPB SCH (06:39)
[2017-10-05] MEDS: INSULIN SLIDING SCALE (NOVOLOG) 1 VIAL SQ SCH ×4 (06:46→21:49)
[2017-10-05 06:57] LABS: HEMOGLOBIN 8.6 GM/dL (11.7-16.9); MCH 30.4 pg (25.7-33.7); MCHC 33.3 g/dl (32.0-35.9); MEAN CELL VOLUME 91.4 fl (80-96); PLATELET COUNT 255 K/MM3 (134-434); RBC 2.84 M/mm3 (4.00-5.60); RDW 16.1 % (11.9-15.9); WHITE BLOOD COUNT 28.9 K/mm3 (4.0-10.0)
[2017-10-05 07:34] LABS: ALBUMIN 1.1 g/dl (3.4-5.0); ANION GAP 13 (8-16); BILIRUBIN,TOTAL 0.3 mg/dL (0.2-1.0); BLOOD UREA NITROGEN 92 mg/dL (7-18); CALCIUM 7.5 mg/dL (8.5-10.1); CHLORIDE 110 mmol/L (98-107); CO2 17 mmol/L (21-32); CREATININE 3.4 mg/dL (0.7-1.3); GLUCOSE,RANDOM 187 mg/dL (74-106); POTASSIUM 4.4 mmol/L (3.5-5.1); SGOT/AST 23 U/L (15-37); SGPT/ALT 13 U/L (12-78); SODIUM 140 mmol/L (136-145); TOT PROT 3.9 g/dl (6.4-8.2)
[2017-10-05 07:35] LABS: ALK PHOS 105 U/L (45-117)
[2017-10-05] MEDS ORDERED: PT OWN MED DRAWER 7, Y5N ONE (10:28)
[2017-10-05] MEDS: AZITHROMYCIN IVPB 500 MG in DEXTROSE 5%-WATER - 250 ML IVPB SCH (10:33)
[2017-10-05] MEDS: PROPOFOL 1,000,000 MCG/100 ML VIAL IVPB SCH (10:33)
[2017-10-05] MEDS: HEPARIN NA (PORCINE) 5,000 UNITS/ML 1ML VIAL SQ SCH ×2 (10:34→21:35)
[2017-10-05] MEDS: MUPIROCIN 2% TOPICAL OINTMENT FOR DECOLONIZATION NS SCH ×2 (10:35→21:35)
[2017-10-05] MEDS: VANCOMYCIN 750 MG in DEXTROSE 5%-WATER - 250 ML IVPB SCH (10:42)
--- NOTE | 2017-10-05 11:06 | PN ---
Progress Note (short form) - Note Progress Note: Patient remains in ICU intubated on sedation with worsening CXR and renal function. WBC still elavated at 28,000. He is having recurring A. Flutter/ SVT and this is similar to what was noted on his last admission. Will reconsult Dr. Covington. Anemia continues also. He is sedated and cannot communicate at this time. On Exam: Vital Signs Temp 98.7 F 10/05/17 10:00 Pulse 85 10/05/17 10:00 Resp 25 H 10/05/17 10:00 BP 100/51 10/05/17 10:00 Pulse Ox 100 10/04/17 20:00 Intake & Output 10/04/17 10/04/17 10/05/17 11:59 23:59 11:59 Intake Total 1063.5 2396 Output Total 350 250 300 Balance 713.5 -250 2096 Weight 124 lb 8 oz 124 lb 6.4 oz Intake: IV 1013.5 1746 1/2 Normal Saline 1,000 1500 ml @ 75 mls/hr IV ASDIR SELVIN Rx#:[id number] Cordarone Injection - 450 166.5 198 mg In D5w - 241 ml @ 1 MG/MIN 33.33 mls/hr IVPB TITR SELVIN Rx#:[id number] D5-1/2Ns - 1,000 ml @ 75 525 mls/hr IV ASDIR SELVIN Rx#: [id number] DIPRIVAN - 1,000,000 mcg 48 In 100 ml @ 10 MCG/KG/MIN 3.388 mls/hr IVPB TITR SELVIN Rx#:[id number] NOVOLIN R VIAL *For 7 IVPUSH or IV DRIP Only* 100 UNITS In Normal Saline - 99 ml @ 0.1 UNITS/KG/HR 5.71 mls/hr IVPB TITR SELVIN Rx#: [id number] Carlo-Synephrine - 20,000 315 Mcg In Normal Saline - 248 ml @ 100 MCG/MIN 75 mls/hr IVPB ASDIR SELVIN Rx# :[id number] IVPB 50 50 Tube Feeding 360 Tube Irrigant 240 Output: Urine 350 250 300 [place] 350 250 300 Other: Voiding Method Indwelling Catheter Indwelling Catheter Indwelling Catheter Weight Measurement Method Built in Bedscale Built in Bedscale Sedated Pupils equal Chest: A few scattered wheezes and rhonchi on both sides Abd: Distended with some increase in bowel sounds; appears to be uncomfortable when RUQ palpated. Ext: no edema; slight cyanosis of great toe on right; heel pads in place Cor: regular now Abnormal Lab Results 10/04/17 10/05/17 10/05/17 12:45 05:50 05:50 WBC 28.9 H RBC 2.84 L Hgb 8.6 L D Hct 26.0 L RDW 16.1 H Chloride 117 H 110 H Carbon Dioxide 13 L 17 L D BUN 88 H 92 H Creatinine 3.0 H 3.4 H Random Glucose 335 H* D 187 H D Calcium 7.3 L 7.5 L Total Protein 3.9 L Albumin 1.1 L D IMP: Acute Sepsis Acute RLL Pneumonia Uncontrolled DM Acute on Chronic renal Failure Acute A. Flutter/SVT Hx: CVA Anemia ? of chronic disease Hypoalbuminemia PLAN: F/U Lab Add Cardiology consult CXR AM Endocrine MD I spoke to about his current critical status; not a DNR.
[2017-10-05 11:14] LABS: ANISOCYTOSIS 1+; MACROCYTOSIS 0; PLATELET ESTIMATE NORMAL; TEAR DROP CELLS 1+; TOXIC GRANULATION 1+
--- NOTE | 2017-10-05 12:21 | CON.CARD ---
Cardiology Consult (text) - Consultation Consultation Note: CC: SVT 76 yo with pmhx of htn, hl, pad, afib (not on AC due to GIB), cva (no residual deficits), copd, dm, mgus, esthesioneuroblastoma treated with radiation therapy , chronic anemia s/p recent GIB admitted with dka, sepsis, resp failure. Hospital course now complicated by episode of SVT. episode of afib with rvr to 130's starting yesterday afternoon. self-limited. 2 recurrent episodes lasting a few hours since then. Now back in SR. history limited b/c patient intubated, sedated. per chart notes patient had complaints of sob and confusion on admission. no cp , palps, dizziness, orthopnea, pnd, le edema, transient neurologic symptoms. no f/c/s, n/v/d, h/a, rash,visual disturbances. pmhx/pshx: per hpi, prior toe amputations, prior inguinal hernia repair social hx: prior tobacco, prior etoh fam hx: brother mi 73; Mother at 89 yo from congestive heart failure, Father at 51 of an ME. ros: per hpi Ambulatory Orders Simvastatin [Zocor -] 20 mg PO HS 05/11/14 Timolol 0.5% [Timoptic] 1 drop OU DAILY 05/11/14 Ferrous Sulfate [Feosol] 325 mg PO DAILY #30 tablet 07/25/17 Albuterol 0.083% Nebulizer Petra [Ventolin 0.083% Nebulizer Soln -] 1 amp NEB Q4H PRN amp 08/13/17 Diltiazem Cd [Cardizem Cd -] 240 mg PO DAILY cap.cd.24h 08/13/17 Docusate Sodium [Colace -] 100 mg PO BID capsule 08/13/17 Insulin (Levemir) [Levemir Vial] 6 units SQ HS ml 08/13/17 Insulin Sliding Scale [Novolog Vial Sliding Scale -] 1 vial SQ HS units Insulin Sliding Scale [Novolog Vial Sliding Scale -] 1 vial SQ TIDAC units Magnesium Oxide [Mag-Ox -] 400 mg PO BID tablet 08/13/17 Polyethylene Glycol 3350 [Miralax 119 gm Btl -] 17 gm PO DAILY bottle 08/13/17 Current Medications Chlorhexidine Gluconate (Hibiclens For Decolonization -) 1 applic TP HS [facility] Last Admin: 10/04/17 21:39 Dose: 1 applic Heparin Sodium (Porcine) (Heparin -) 5,000 unit SQ BID [facility] Last Admin: 10/05/17 10:34 Dose: 5,000 unit Azithromycin 500 mg/ Dextrose 250 mls @ 250 mls/hr IVPB DAILY [facility] Last Admin: 10/05/17 10:33 Dose: 250 mls/hr Vancomycin HCl 750 mg/ (Dextrose) 250 mls @ 250 mls/hr IVPB DAILY [facility] PRN Reason: Protocol Last Admin: 10/05/17 10:42 Dose: 250 mls/hr Piperacillin Sod/Tazobactam (Sod 2.25 gm/ Dextrose) 50 mls @ 100 mls/hr IVPB Q8H-IV [facility] Last Admin: 10/05/17 10:34 Dose: 100 mls/hr Amiodarone HCl 450 mg/ (Dextrose) 250 mls @ 33.33 mls/hr IVPB TITR [facility]; 1 MG/ MIN PRN Reason: Protocol Last Admin: 10/05/17 06:39 Dose: Not Given Propofol (Diprivan -) 1,000,000 mcg in 100 mls @ 3.388 mls/hr IVPB TITR [facility]; 10 MCG/KG/MIN PRN Reason: Protocol Last Admin: 10/05/17 10:33 Dose: 10 mcg/kg/min, 3.388 mls/hr Insulin Aspart (Novolog Vial Sliding Scale -) 1 vial SQ [facility] PRN Reason: Protocol Last Admin: 10/05/17 11:20 Dose: 2 unit Insulin Detemir (Levemir Vial) 6 units SQ [facility] Metoprolol Tartrate (Lopressor Injection -) 5 mg IVPUSH Q4H PRN PRN Reason: TACHYCARDIA Last Admin: 10/04/17 18:22 Dose: 5 mg Midazolam HCl (Versed -) 2 mg IVPUSH Q2H PRN PRN Reason: AGITATION Last Admin: 10/04/17 01:14 Dose: 2 mg Mupirocin (Bactroban Ointment (For Decolonization) -) 1 applic NS BID [facility] Stop: 10/08/17 09:59 Last Admin: 10/05/17 10:35 Dose: 1 applic Vital Signs - 24 hr 10/04/17 10/04/17 10/04/17 13:00 13:37 15:00 Temperature 99.9 F H 99.3 F Pulse Rate 113 H 90 Respiratory 22 28 H 26 H Rate Blood Pressure 98/64 102/47 O2 Sat by Pulse Oximetry (%) 10/04/17 10/04/17 10/04/17 16:18 17:00 18:22 Temperature Pulse Rate 145 H Respiratory 28 H 22 Rate Blood Pressure 124/66 119/67 O2 Sat by Pulse Oximetry (%) 10/04/17 10/04/17 10/04/17 18:49 19:00 20:00 Temperature Pulse Rate 124 H 87 Respiratory 26 H 16 16 Rate Blood Pressure 125/58 111/58 O2 Sat by Pulse 100 Oximetry (%) 10/04/17 10/04/17 10/05/17 21:30 22:00 00:00 Temperature 98.2 F Pulse Rate 94 H 95 H Respiratory 25 H 24 24 Rate Blood Pressure 109/61 106/57 O2 Sat by Pulse Oximetry (%) 10/05/17 10/05/17 10/05/17 00:05 02:00 03:00 Temperature 99.4 F Pulse Rate 94 H Respiratory 20 26 H 26 H Rate Blood Pressure 116/68 O2 Sat by Pulse Oximetry (%) 10/05/17 10/05/17 10/05/17 04:00 05:07 06:00 Temperature 99 F Pulse Rate 98 H 88 Respiratory 26 H 24 18 Rate Blood Pressure 124/54 129/49 O2 Sat by Pulse Oximetry (%) 10/05/17 10/05/17 10/05/17 07:03 07:40 07:46 Temperature Pulse Rate 88 Respiratory 24 26 H 14 Rate Blood Pressure 121/49 O2 Sat by Pulse Oximetry (%) 10/05/17 10/05/17 10/05/17 08:00 09:37 10:00 Temperature 98.7 F Pulse Rate 88 85 Respiratory 15 27 H 25 H Rate Blood Pressure 105/91 100/51 O2 Sat by Pulse Oximetry (%) 10/05/17 11:04 Temperature Pulse Rate Respiratory 25 H Rate Blood Pressure O2 Sat by Pulse Oximetry (%) Intake & Output 10/03/17 10/04/17 10/05/17 10/06/17 07:59 07:59 07:59 07:59 Intake Total 10319.5 2396 Output Total 700 550 Balance 9632.5 1846 Weight 112 lb 124 lb 8 oz 124 lb 6.4 oz NAD, cachectic, intubated, sedated JVD flat, neck supple diffuse rhonchi, nl effort rrr nl s1, s2 2/6 sys murmur at sternal border + bs soft nt nd. no le e/c/c diminished dp/pt no carotid bruits no jaundice, diaphoresis CBC, BMP 10/05/17 05:50 10/05/17 05:50 EKG 10/03: sinus tach with atrial run. non-sp t wave ab. no ischemic changes. tele: intermittent afib with rvr to the 130's. cxr 10/05: RLL consolidation and pleural fluid. echo 06/2017: mod lvh. nl lv fn. nl rv size/fn. 1+ lae. mod-sev mac with mod ms. 1+ mr. nl rvsp. 1+ ao dilation A/P 76 yo with pmhx of htn, hl, pad, afib (not on AC due to GIB), cva (no residual deficits), copd, dm, mgus, esthesioneuroblastoma treated with radiation therapy , chronic anemia s/p recent GIB admitted with dka, sepsis, resp failure. Hospital course now complicated by episode of SVT. afib - not previously a candidate for AC b/c of prior hx of GIB. remains anemic. - s/p amio. starting po regimen of dilt. uptitrate as needed htn - currently off anti-htn meds b/c of hypotension/sepsis. monitor with the addition of dil. cva/pad - con't statin. per pmd, previously not a candidate for asa due to recent gib and anemia. Will need to reassess if there remains contraindication. mild asc ao dilation - can consider switching to beta car once resp issues resolve. dka/sepsis/resp failure - ongoing mgm't per pmd/pulm/id > 35 min cct
--- NOTE | 2017-10-05 13:14 | PN ---
Teaching Attending Note Name of Resident: Curt Caputo ATTENDING PHYSICIAN STATEMENT I saw and evaluated the patient. I reviewed the resident's note and discussed the case with the resident. I agree with the resident's findings and plan as documented. SUBJECTIVE: Pt seen and examined in the ICU. Remains intubated, sedated. Vented on volume assist control with 40% fiO2. Attempted spontaneous breathing trials during rounds but became too tachypneic on 04/01. OBJECTIVE: Last Vital Signs Temp Pulse Resp BP Pulse Ox 98.7 F 85 26 H 100/51 100 10/05/17 10:00 10/05/17 10:00 10/05/17 13:03 10/05/17 10:00 10/04/17 20:00 Intake & Output 10/02/17 10/03/17 10/04/17 10/05/17 23:59 23:59 23:59 23:59 Intake Total 9269 1063.5 2396 Output Total 350 600 300 Balance 8919 463.5 2096 Weight 57.153 kg 50.802 kg 56.472 kg 56.427 kg Gen: intubated, sedated Heart: RRR Lung: bilateral rhonchi Abd: soft, nontender Ext: + edema CBC, BMP 10/05/17 05:50 10/05/17 05:50 Active Medications Chlorhexidine Gluconate (Hibiclens For Decolonization -) 1 applic TP HS [facility] Last Admin: 10/04/17 21:39 Dose: 1 applic Heparin Sodium (Porcine) (Heparin -) 5,000 unit SQ BID [facility] Last Admin: 10/05/17 10:34 Dose: 5,000 unit Azithromycin 500 mg/ Dextrose 250 mls @ 250 mls/hr IVPB DAILY [facility] Last Admin: 10/05/17 10:33 Dose: 250 mls/hr Vancomycin HCl 750 mg/ (Dextrose) 250 mls @ 250 mls/hr IVPB DAILY [facility] PRN Reason: Protocol Last Admin: 10/05/17 10:42 Dose: 250 mls/hr Piperacillin Sod/Tazobactam (Sod 2.25 gm/ Dextrose) 50 mls @ 100 mls/hr IVPB Q8H-IV [facility] Last Admin: 10/05/17 10:34 Dose: 100 mls/hr Amiodarone HCl 450 mg/ (Dextrose) 250 mls @ 33.33 mls/hr IVPB TITR [facility]; 1 MG/ MIN PRN Reason: Protocol Last Admin: 10/05/17 06:39 Dose: Not Given Propofol (Diprivan -) 1,000,000 mcg in 100 mls @ 3.388 mls/hr IVPB TITR [facility]; 10 MCG/KG/MIN PRN Reason: Protocol Last Admin: 10/05/17 10:33 Dose: 10 mcg/kg/min, 3.388 mls/hr Insulin Aspart (Novolog Vial Sliding Scale -) 1 vial SQ ACHS [facility] PRN Reason: Protocol Last Admin: 10/05/17 11:20 Dose: 2 unit Insulin Detemir (Levemir Vial) 6 units SQ HS [facility] Metoprolol Tartrate (Lopressor Injection -) 5 mg IVPUSH Q4H PRN PRN Reason: TACHYCARDIA Last Admin: 10/04/17 18:22 Dose: 5 mg Midazolam HCl (Versed -) 2 mg IVPUSH Q2H PRN PRN Reason: AGITATION Last Admin: 10/04/17 01:14 Dose: 2 mg Mupirocin (Bactroban Ointment (For Decolonization) -) 1 applic NS BID [facility] Stop: 10/08/17 09:59 Last Admin: 10/05/17 10:35 Dose: 1 applic ASSESSMENT AND PLAN: Acute Hypoxic Respiratory Failure Pneumonia Septic Shock Acute on Chronic Renal Failure Lactic Acidosis Diabetic Ketoacidosis improving Paroxysmal Atrial Fibrillation with RVR HTN DM COPD - continue antibiotics - f/u cultures - d/c IVF - monitor urine output, creatinine - monitor I/Os - glucose control - rate control, d/c amiodarone - anticoagulation per cardiology - taper FiO2 to keep SpO2 >90% - monitoring off pressors - monitor ABG - if acid base disorder improved and can taper FiO2 to 40%, hold sedation to assess mental status - daily sedation vacations and spontaneous breathing trials as tolerated when mental status improved - enteral feeds - DVT/GI prophylaxis critical care time spent in reviewing chart, evaluating patient and formulating plan 35 min
--- NOTE | 2017-10-05 14:31 | PN ---
Physical Exam: SUBJECTIVE: Patient seen and examined in ICU. HR briefly elevated to 140s overnight. OBJECTIVE: Vital Signs Period Temp Pulse Resp BP Sys/Sy Pulse Ox Last 24 Hr 98.2 F-99.4 F 85-145 14-28 100-129/47-91 96-100 GENERAL: Intubated, sedated HEAD: Normal with no signs of trauma. EYES: PERRL, extraocular movements intact, sclera anicteric, conjunctiva clear. No ptosis. NECK: Trachea midline, full range of motion, supple. LUNGS: Coarse breath sounds on lower right base, no accessory muscle use. HEART: Regular rate and rhythm, S1, S2 without murmur, rub or gallop. EXTREMITIES: 2+ pulses, warm, well-perfused, no edema. NEUROLOGICAL: Cranial nerves II through XII grossly intact. Sedated. SKIN: Warm, dry, normal turgor, no rashes or lesions noted Laboratory Results - last 24 hr 10/04/17 10/04/17 10/04/17 14:01 18:01 21:11 WBC RBC Hgb Hct MCV MCH MCHC RDW Plt Count MPV Neutrophils % (Manual) Band Neutrophils % Lymphocytes % (Manual) Monocytes % (Manual) Eosinophils % (Manual) Basophils % (Manual) Myelocytes % (Man) Promyelocytes % (Man) Blast Cells % (Manual) Nucleated RBC % Metamyelocytes Toxic Granulation Platelet Estimate Poikilocytosis Anisocytosis Macrocytosis Tear Drop Cells Felicia Cells Schistocytes Sodium Potassium Chloride Carbon Dioxide Anion Gap BUN Creatinine Creat Clearance w eGFR POC Glucometer > [phone] 250.32675 Random Glucose Calcium Total Bilirubin AST ALT Alkaline Phosphatase Total Protein Albumin 10/05/17 10/05/17 10/05/17 00:27 05:50 05:50 WBC 28.9 H RBC 2.84 L Hgb 8.6 L D Hct 26.0 L MCV 91.4 MCH 30.4 MCHC 33.3 RDW 16.1 H Plt Count 255 D MPV 9.0 Neutrophils % (Manual) 91.0 H* Band Neutrophils % 3.0 Lymphocytes % (Manual) 2.0 L Monocytes % (Manual) 4 D Eosinophils % (Manual) 0.0 Basophils % (Manual) 0.0 Myelocytes % (Man) 0 Promyelocytes % (Man) 0 Blast Cells % (Manual) 0 Nucleated RBC % 0 Metamyelocytes 0 Toxic Granulation 1+ Platelet Estimate Normal Poikilocytosis 2+ Anisocytosis 1+ Macrocytosis 0 Tear Drop Cells 1+ Anchorage Cells 1+ Schistocytes 1+ Sodium 140 Potassium 4.4 Chloride 110 H Carbon Dioxide 17 L D Anion Gap 13 BUN 92 H Creatinine 3.4 H Creat Clearance w eGFR 17.60 POC Glucometer [phone] Random Glucose 187 H D Calcium 7.5 L Total Bilirubin 0.3 AST 23 D ALT 13 D Alkaline Phosphatase 105 Total Protein 3.9 L Albumin 1.1 L D 10/05/17 06:35 WBC RBC Hgb Hct MCV MCH MCHC RDW Plt Count MPV Neutrophils % (Manual) Band Neutrophils % Lymphocytes % (Manual) Monocytes % (Manual) Eosinophils % (Manual) Basophils % (Manual) Myelocytes % (Man) Promyelocytes % (Man) Blast Cells % (Manual) Nucleated RBC % Metamyelocytes Toxic Granulation Platelet Estimate Poikilocytosis Anisocytosis Macrocytosis Tear Drop Cells Anchorage Cells Schistocytes Sodium Potassium Chloride Carbon Dioxide Anion Gap BUN Creatinine Creat Clearance w eGFR POC Glucometer [phone] Random Glucose Calcium Total Bilirubin AST ALT Alkaline Phosphatase Total Protein Albumin Active Medications Generic Name Dose Route Start Last Admin Trade Name Freq PRN Reason Stop Dose Admin Chlorhexidine Gluconate 1 applic 10/03/17 22:00 10/04/17 21:39 Hibiclens For Decolonization - TP 1 applic HS [facility] Administration Diltiazem HCl 60 mg 10/05/17 18:00 Cardizem - PO Q6HPO [facility] Heparin Sodium (Porcine) 5,000 unit 10/03/17 10:00 10/05/17 10:34 Heparin - SQ 5,000 unit BID [facility] Administration Azithromycin 500 mg/ Dextrose 250 mls @ 250 mls/hr 10/04/17 10:00 10/05/17 10 :33 IVPB 250 mls/hr DAILY [facility] Administration Vancomycin HCl 750 mg/ 250 mls @ 250 mls/hr 10/03/17 15:15 10/05/17 10:42 Dextrose IVPB 250 mls/hr DAILY [facility] Administration Protocol Piperacillin Sod/Tazobactam 50 mls @ 100 mls/hr 10/03/17 18:00 10/05/17 10:34 Sod 2.25 gm/ Dextrose IVPB 100 mls/hr Q8H-IV [facility] Administration Propofol 1,000,000 mcg in 100 mls @ 3.388 mls/hr 10/04/17 09:15 10/05/17 10: 33 Diprivan - IVPB 10 mcg/kg/min TITR [facility] 3.388 mls/hr Protocol Administration 10 MCG/KG/MIN Insulin Aspart 1 vial 10/04/17 11:00 10/05/17 11:20 Novolog Vial Sliding Scale - SQ 2 unit ACHS [facility] Administration Protocol Insulin Detemir 6 units 10/05/17 22:00 Levemir Vial SQ HS [facility] Metoprolol Tartrate 5 mg 10/03/17 19:00 10/04/17 18:22 Lopressor Injection - IVPUSH 5 mg Q4H PRN Administration TACHYCARDIA Midazolam HCl 2 mg 10/03/17 14:35 10/04/17 01:14 Versed - IVPUSH 2 mg Q2H PRN Administration AGITATION Mupirocin 1 applic 10/03/17 10:00 10/05/17 10:35 Bactroban Ointment (For Decolonization) - NS 10/08/17 09:59 1 applic BID [facility] Administration ASSESSMENT/PLAN: 76M with history of COPD, IDDM, HTN, GI bleed, diverticulosis, HLD, CVA, inutssception with pneumonia and DKA. Weaned off phenylephrine today, BPs stable with no pressors. CXR shows worsening of infiltrate and fluid status. ID #Community acquired pneumonia - CXR shows worsening infiltrate and increased fluid - Appreciate ID reqs - Vanc 750, Zosyn, Azithromycin Respiratory #Respiratory failure - Intubated, ET tube 8cm above hannah, advanced 3cm, CXR shows better placement - ABGs daily - ABG today pending, lab called to follow up - Failed to tolerate bipap with 10/5, became tachypneic, maintaining oxygenation with 40% down from 50% - Sedation vacations Endo #DKA - Gap remains closed - Bicarb discontinued due to patient's fluid status - Continue to closely monitor electrolytes #DM - Levemir 6U - Sliding scale CV #Afib w/RVR - Possible history of afib vs aflutter vs SVT in outpatient setting, amiodarone discontinued due to unknown start date of afib - 60mg diltiazem q6 per cards reqs - No anticoagulation at this time due to patient's recent GI bleed - Metoprolol 5mg PRN Q4Hr - Patient +2L with 300ml urine output, +11L overall this admission, worsening fluid status on CXR Renal #Decreased urine output - Bedside ultrasound shows L kidney increased in size - Formal ultrasound ordered - Bicarb drip stopped due to fluid status, bicarb now 17 - ? ATN, will continue to monitor Neuro - Sedated with propofol FEN/GI - Glucerna feed - Monitor lytes, replete as necessary PPx: Heparin, SCDs, Protonix Visit type - Emergency Visit Emergency Visit: Yes ED Registration Date: 10/03/17 Care time: The patient presented to the Emergency Department on the above date and was hospitalized for further evaluation of their emergent condition. - New Patient This patient is new to me today: No - Critical Care Critical Care patient: Yes Total Critical Care Time (in minutes): 60 Critical Care Statement: The care of this patient involved high complexity decision making to prevent further life threatening deterioration of the patient 's condition and/or to evaluate & treat vital organ system(s) failure or risk of failure.
--- NOTE | 2017-10-05 14:37 | PN ---
Progress Note, Physician History of Present Illness: continues to sedated and intubated off of all drips improving - Current Medication List Current Medications: Active Medications Chlorhexidine Gluconate (Hibiclens For Decolonization -) 1 applic TP HS [facility] Last Admin: 10/04/17 21:39 Dose: 1 applic Diltiazem HCl (Cardizem -) 60 mg PO Q6HPO [facility] Heparin Sodium (Porcine) (Heparin -) 5,000 unit SQ BID [facility] Last Admin: 10/05/17 10:34 Dose: 5,000 unit Azithromycin 500 mg/ Dextrose 250 mls @ 250 mls/hr IVPB DAILY [facility] Last Admin: 10/05/17 10:33 Dose: 250 mls/hr Vancomycin HCl 750 mg/ (Dextrose) 250 mls @ 250 mls/hr IVPB DAILY [facility] PRN Reason: Protocol Last Admin: 10/05/17 10:42 Dose: 250 mls/hr Piperacillin Sod/Tazobactam (Sod 2.25 gm/ Dextrose) 50 mls @ 100 mls/hr IVPB Q8H-IV [facility] Last Admin: 10/05/17 10:34 Dose: 100 mls/hr Propofol (Diprivan -) 1,000,000 mcg in 100 mls @ 3.388 mls/hr IVPB TITR [facility]; 10 MCG/KG/MIN PRN Reason: Protocol Last Admin: 10/05/17 10:33 Dose: 10 mcg/kg/min, 3.388 mls/hr Insulin Aspart (Novolog Vial Sliding Scale -) 1 vial SQ [facility] PRN Reason: Protocol Last Admin: 10/05/17 11:20 Dose: 2 unit Insulin Detemir (Levemir Vial) 6 units SQ [facility] Metoprolol Tartrate (Lopressor Injection -) 5 mg IVPUSH Q4H PRN PRN Reason: TACHYCARDIA Last Admin: 10/04/17 18:22 Dose: 5 mg Midazolam HCl (Versed -) 2 mg IVPUSH Q2H PRN PRN Reason: AGITATION Last Admin: 10/04/17 01:14 Dose: 2 mg Mupirocin (Bactroban Ointment (For Decolonization) -) 1 applic NS BID [facility] Stop: 10/08/17 09:59 Last Admin: 10/05/17 10:35 Dose: 1 applic - Objective Vital Signs: Vital Signs Temperature 98.7 F 10/05/17 10:00 Pulse Rate 106 H 10/05/17 12:00 Respiratory Rate 26 H 10/05/17 13:03 Blood Pressure 125/54 10/05/17 12:00 O2 Sat by Pulse Oximetry (%) 100 10/04/17 20:00 Constitutional: Yes: Other Cardiovascular: Yes: Regular Rate and Rhythm Respiratory: Yes: Intubated, Mechanically Ventilated Gastrointestinal: Yes: Normal Bowel Sounds, Soft Musculoskeletal: Yes: WNL Extremities: Yes: WNL Neurological: Yes: Other Psychiatric: Yes: Other Labs: CBC, BMP 10/05/17 05:50 10/05/17 05:50 INR, PTT INR 1.33 (0.82-1.09) H 10/03/17 12:00 - ....Imaging Chest X-ray: Image Reviewed (report awaited) Assessment/Plan 76 year old male with a significant past medical history of COPD, GI bleed, diverticulosis, HLD, CVA, intussusception, umbilical hernia, DM, HTN, sinus cancer with excision and polypectomy who is now intubated and sedated and on pressors Acute Hypoxic Respiratory Failure Pneumonia Septic Shock Acute on Chronic Renal Failure Lactic Acidosis Diabetic Ketoacidosis improving HTN DM COPD cx result noted plan will stop vanco continue zosyn resp support continue as per icu nutrition cc time 40 min
[2017-10-05] MEDS ORDERED: FUROSEMIDE 100 MG/10 ML INJECTABLE VIAL IVPB ONE (15:03)
--- NOTE | 2017-10-05 15:03 | PN ---
Progress Note (short form) - Note Progress Note: Renal follow up for SHANTA Pt seen and examined in the ICU on Vent, 40% FiO2 sedated on propofol off pressers, off IVF oliguric Lasix was not given yesterday Vital Signs Temperature 98.7 F 10/05/17 10:00 Pulse Rate 106 H 10/05/17 12:00 Respiratory Rate 26 H 10/05/17 13:03 Blood Pressure 125/54 10/05/17 12:00 O2 Sat by Pulse Oximetry (%) 100 10/04/17 20:00 Intake & Output 10/02/17 10/03/17 10/04/17 10/05/17 23:59 23:59 23:59 23:59 Intake Total 9269 1063.5 2396 Output Total 350 600 300 Balance 8919 463.5 2096 Weight 57.153 kg 50.802 kg 56.472 kg 56.427 kg NAD on Vent via ET tube tachycardic, no murmur or rub Dec Bs at left lung base soft NT/ND Abd lazcano in place no LE edema, clubbing or cyanosis. Legs are cool CBC, BMP 10/05/17 05:50 10/05/17 05:50 Laboratory Tests 10/05/17 05:50 Calcium 7.5 L Albumin 1.1 L D Current Medications Chlorhexidine Gluconate (Hibiclens For Decolonization -) 1 applic TP HS [facility] Last Admin: 10/04/17 21:39 Dose: 1 applic Diltiazem HCl (Cardizem -) 60 mg PO Q6HPO [facility] Heparin Sodium (Porcine) (Heparin -) 5,000 unit SQ BID [facility] Last Admin: 10/05/17 10:34 Dose: 5,000 unit Azithromycin 500 mg/ Dextrose 250 mls @ 250 mls/hr IVPB DAILY [facility] Last Admin: 10/05/17 10:33 Dose: 250 mls/hr Piperacillin Sod/Tazobactam (Sod 2.25 gm/ Dextrose) 50 mls @ 100 mls/hr IVPB Q8H-IV [facility] Last Admin: 10/05/17 10:34 Dose: 100 mls/hr Propofol (Diprivan -) 1,000,000 mcg in 100 mls @ 3.388 mls/hr IVPB TITR [facility]; 10 MCG/KG/MIN PRN Reason: Protocol Last Admin: 10/05/17 10:33 Dose: 10 mcg/kg/min, 3.388 mls/hr Insulin Aspart (Novolog Vial Sliding Scale -) 1 vial SQ ACHS [facility] PRN Reason: Protocol Last Admin: 10/05/17 11:20 Dose: 2 unit Insulin Detemir (Levemir Vial) 6 units SQ HS [facility] Metoprolol Tartrate (Lopressor Injection -) 5 mg IVPUSH Q4H PRN PRN Reason: TACHYCARDIA Last Admin: 10/04/17 18:22 Dose: 5 mg Midazolam HCl (Versed -) 2 mg IVPUSH Q2H PRN PRN Reason: AGITATION Last Admin: 10/04/17 01:14 Dose: 2 mg Mupirocin (Bactroban Ointment (For Decolonization) -) 1 applic NS BID [facility] Stop: 10/08/17 09:59 Last Admin: 10/05/17 10:35 Dose: 1 applic Pantoprazole Sodium (Protonix Iv) 40 mg IVPUSH DAILY [facility] 76 year old male with a significant past medical history of COPD, GI bleed, diverticulosis, HLD, CVA, intussusception, umbilical hernia, DM, HTN, sinus cancer with excision and polypectomy who presents to the ED, accompanied by , s/p high blood sugar levels earlier today. #SHANTA on CKD likely due to ATN in setting of sepsis #Sepsis/PNA #AG and Non-AG Metabolic acidosis (corrected AG is 19) #Anemia #Hx of Hypertension #DM on Insulin Renal function w/o improvement in the last 24 hours pt is non-oliguric in the last 24 hours Lasix not given yesterday b/c of low bp, will hold off today as well Trend urine output and electrolytes no acute indication for [place] at this time trend serum bicarb off bicarb gtt continue vent support and ICU care Trend CBC pt may still warrant dialysis this admission if renal function now improved Tomás Al DO
[2017-10-05] MEDS: PANTOPRAZOLE SODIUM 40 MG VIAL IVPUSH SCH (15:05)
--- NOTE | 2017-10-05 15:41 | CONSULT ---
Consult Consult Specialty:: Endocrinology Referred by:: Dr Nunez Reason for Consultation:: HYperglycemia - History of Present Illness Chief Complaint: Hyperlgycemia History of Present Illness: This is a 76 year old male with history of COPD, GI bleed, diverticulosis, HLD , CVA, intussusception, umbilical hernia, DM, HTN, sinus cancer with excision and polypectomy who presents to the ED, accompanied by , with c/o high blood sugar levels earlier that day. As per , the patient took a finger stick around 8am which was 412. states she left for work and the patient was at home unattended from 8:30am-6:00pm . As per , the patient was not acting at his baseline when she returned home and she redid his fingerstick and is read over range. As per , the patient has not been eating this past week and also reports nausea and chills. Labs in the ED: CO2 15, A Gap 22 Cr 2.8 BS 567 Acetone Trace. Pt treated with IV hydration, IV insulin with resolution of Anion gap. Pt was Intubated and sedated b/o respiratory failure. Pt also in [facility] with worsening renal function. Pt admitted in July with acidosis and was sent home on Insulin to be followed up in office for further w/u to decide if he will need to be on Insulin on the [facility] but didn't come for f/u as directed. 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 Lt toe amput (old) tonsillect), Tonsillectomy (Lt toe amp (old)) - Alcohol/Substance Use Hx Alcohol Use: No History of Substance Use: reports: None - Smoking History Smoking history: Current every day smoker Have you smoked in the past 12 months: Yes Aproximately how many cigarettes per day: 15 - Social History Usual Living Arrangement: With Spouse (lives with in apartment without stairs to elevator) ADL: Independent (with [place]) History of Recent Travel: No Home Medications - Allergies Allergies/Adverse Reactions: Allergies Allergy/AdvReac Type Severity Reaction Status Date / Time No Known Allergies Allergy Verified 10/02/17 22:48 - Home Medications Home Medications: Ambulatory Orders Simvastatin [Zocor -] 20 mg PO HS 05/11/14 Timolol 0.5% [Timoptic] 1 drop OU DAILY 05/11/14 Ferrous Sulfate [Feosol] 325 mg PO DAILY #30 tablet 07/25/17 Albuterol 0.083% Nebulizer Petra [Ventolin 0.083% Nebulizer Soln -] 1 amp NEB Q4H PRN amp 08/13/17 Diltiazem Cd [Cardizem Cd -] 240 mg PO DAILY cap.cd.24h 08/13/17 Docusate Sodium [Colace -] 100 mg PO BID capsule 08/13/17 Insulin (Levemir) [Levemir Vial] 6 units SQ HS ml 08/13/17 Insulin Sliding Scale [Novolog Vial Sliding Scale -] 1 vial SQ HS units Insulin Sliding Scale [Novolog Vial Sliding Scale -] 1 vial SQ TIDAC units Magnesium Oxide [Mag-Ox -] 400 mg PO BID tablet 08/13/17 Polyethylene Glycol 3350 [Miralax 119 gm Btl -] 17 gm PO DAILY bottle 08/13/17 Family Disease History - Family Disease History Family Disease History: Diabetes: Brother (liver Ca, CKD), Heart Disease: Father , Mother (ill descript GI illness), Brother, CA: Brother, Other: Mother Review of Systems Unable to obtain ROS, reason: Intubated and sedated Physical Exam Vital Signs: Vital Signs Temperature 98.7 F 10/05/17 10:00 Pulse Rate 106 H 10/05/17 12:00 Respiratory Rate 26 H 10/05/17 13:03 Blood Pressure 125/54 10/05/17 12:00 O2 Sat by Pulse Oximetry (%) 100 10/04/17 20:00 Constitutional: Yes: Other (Intubated and sedated) Eyes: Yes: Conjunctiva Clear HENT: Yes: Atraumatic, Normocephalic Neck: Yes: Trachea Midline Cardiovascular: Yes: Regular Rate and Rhythm Respiratory: Yes: Regular, CTA Bilaterally Gastrointestinal: Yes: Normal Bowel Sounds, Soft Musculoskeletal: Yes: WNL Extremities: Yes: WNL Edema: No Neurological: Yes: Other (Intubated and sedated) Labs: CBC, BMP 10/05/17 05:50 10/05/17 05:50 Imaging - Results Chest X-ray: Report Reviewed Assessment/Plan AP; Acute Hypoxic Respiratory Failure Pneumonia Septic Shock DM with Acidosis ? DKA,?Lactic acidosis Acute on Chronic Renal Failure Paroxysmal Atrial Fibrillation with RVR HTN COPD BGM Q6 hr Levemir 6 units daily Novolog coverage continue antibiotics Tube feeding Chart reviewed case discussed with housestaff Start D10W at 42 ml/hr if tube feeding is held or discontinued for any reason until pt is able to eat. Should be on long acting Insulin Will F/U
[2017-10-05] MEDS: dilTIAZem HCL 60 MG TABLET (FP) PO SCH (17:25)
[2017-10-05] MEDS: METOPROLOL TARTRATE 5 MG/5 ML VIAL IVPUSH PRN (17:49)
[2017-10-05] MEDS: PHENYLEPHRINE HCL 20,000 MCG in SODIUM CHLORIDE 248 ML IVPB SCH (18:25)
[2017-10-05] MEDS: CHLORHEXIDINE GLUCONATE 4% CLEANSER FOR DECOLONIZATION TP SCH (21:35)
[2017-10-05] MEDS ORDERED: INSULIN (LEVEMIR) 100 UNITS/ML UNITS SQ SCH (22:00)
[2017-10-06] MEDS: dilTIAZem HCL 60 MG TABLET (FP) PO SCH ×4 (00:08→17:02)
[2017-10-06] MEDS: PIPERACILLIN/TAZOB 2.25 GM 2.25 GM in DEXTROSE 5%-WATER - 50 ML IVPB SCH ×3 (02:03→17:02)
[2017-10-06] MEDS: INSULIN SLIDING SCALE (NOVOLOG) 1 VIAL SQ SCH ×4 (06:23→21:18)
[2017-10-06 06:40] LABS: HEMATOCRIT 24.7 % (35.4-49); HEMOGLOBIN 8.3 GM/dL (11.7-16.9); MCH 30.8 pg (25.7-33.7); MCHC 33.7 g/dl (32.0-35.9); MEAN CELL VOLUME 91.3 fl (80-96); MEAN PLT VOLUME 9.6 fl (7.5-11.1); PLATELET COUNT 227 K/MM3 (134-434); RBC 2.71 M/mm3 (4.00-5.60); RDW 16.3 % (11.9-15.9); WHITE BLOOD COUNT 20.8 K/mm3 (4.0-10.0)
[2017-10-06 06:58] LABS: ALBUMIN 1.1 g/dl (3.4-5.0); ANION GAP 12 (8-16); BLOOD UREA NITROGEN 98 mg/dL (7-18); CALCIUM 7.1 mg/dL (8.5-10.1); CHLORIDE 110 mmol/L (98-107); CO2 17 mmol/L (21-32); GLUCOSE,RANDOM 213 mg/dL (74-106); MAGNESIUM 1.8 mg/dL (1.8-2.4); PHOSPHOROUS 5.1 mg/dL (2.5-4.9); POTASSIUM 4.7 mmol/L (3.5-5.1); SGOT/AST 24 U/L (15-37); SODIUM 139 mmol/L (136-145)
[2017-10-06 07:04] LABS: ALK PHOS 112 U/L (45-117); BILIRUBIN,TOTAL 0.1 mg/dL (0.2-1.0); CREATININE 3.5 mg/dL (0.7-1.3); SGPT/ALT 14 U/L (12-78); TOT PROT 3.8 g/dl (6.4-8.2)
[2017-10-06 07:12] LABS: ARTERIAL BLD GAS O2 SATURATION 95.7 % (90-98.9); ARTERIAL BLOOD GAS BASE EXCESS -9.5 meq/l (-2-2); ARTERIAL BLOOD GAS PCO2 32.3 mmHg (35-45); ARTERIAL BLOOD GAS PO2 84.2 mmHg (70-100)
[2017-10-06 07:22] LABS: ALLENS TEST POSITIVE
--- NOTE | 2017-10-06 08:59 | PN ---
Progress Note (short form) - Note Progress Note: Patient seen and examined in ICU. Admission for Sepsis, Acute respiratory failure, Uncontrolled Diabetes, Pneumonia and Acute on Chronic Renal Failure. Remains on Vent and is sedated. SVT seems more controlled today. Renal lab trending a little higher. Seen by Cardiology and Endo MD's yesterday in addition to the regular team.Await AM CXR. 1000c urine output in last 24 hrs. WBC down to 20,000. On Exam: Vital Signs Temp 98.6 F 10/06/17 06:00 Pulse 73 10/06/17 06:00 Resp 19 10/06/17 07:04 BP 108/45 10/06/17 06:00 Pulse Ox 100 10/05/17 21:00 Intake & Output 10/05/17 10/05/17 10/06/17 11:59 23:59 11:59 Intake Total 2396 839.6 881.6 Output Total 443 538 3483 Balance 2096 539.6 -118.4 Weight 124 lb 6.4 oz 126 lb Intake: IV 1746 39.6 81.6 1/2 Normal Saline 1,000 1500 ml @ 75 mls/hr IV ASDIR SELV[facility] Rx#:[id number] Cordarone Injection - 450 198 mg In D5w - 241 ml @ 1 MG/MIN 33.33 mls/hr IVPB TITR SELVIN Rx#:[id number] DIPRIVAN - 1,000,000 mcg 48 39.6 81.6 In 100 ml @ 10 MCG/KG/MIN 3.388 mls/hr IVPB TITR SEL[facility]IN Rx#:[id number] IVPB 50 100 200 Tube Feeding 360 360 360 Tube Irrigant 240 340 240 Output: Urine 737 172 3939 [place] 900 171 1192 Other: Voiding Method Indwelling Catheter Indwelling Catheter Bowel Movement No Weight Measurement Method Built in Bedscale Sedated but seems to respond with some eye movement to a loud command Chest: More Rhonchi on the right side Cor: reg today Abd: Soft with normal bowel sounds Ext: No edema but cool feet with some cyanosi IMP: Acute Sepsis Acute on Chronic Renal Failure Uncontrolled DM Acute Pneumonia PVD Anemia: await Fe level Acute Respiratory Failure Hx:Esthesioneuroblastoma Right Sinus with RT Rx. SVT PLAN: F/U Lab F/U CXR ? Trial weaning Continue Antibiotics BGM's
[2017-10-06] MEDS ORDERED: PT OWN MED DRAWER 7, Y5N ONE (09:49)
[2017-10-06] MEDS ORDERED: PIPERACILLIN/TAZOBACTAM 2.25 GM VIAL IVPB ONE ×2 (09:49→16:58)
[2017-10-06] MEDS ORDERED: DEXTROSE 5%-WATER - 50 ML IVPB ONE ×2 (09:50→16:59)
[2017-10-06] MEDS: PANTOPRAZOLE SODIUM 40 MG VIAL IVPUSH SCH (09:51)
[2017-10-06] MEDS: AZITHROMYCIN IVPB 500 MG in DEXTROSE 5%-WATER - 250 ML IVPB SCH ×2 (09:51→11:36)
[2017-10-06] MEDS: HEPARIN NA (PORCINE) 5,000 UNITS/ML 1ML VIAL SQ SCH ×2 (09:52→21:17)
[2017-10-06] MEDS: MUPIROCIN 2% TOPICAL OINTMENT FOR DECOLONIZATION NS SCH ×2 (09:52→22:00)
[2017-10-06 10:07] LABS: ANISOCYTOSIS 1+; MACROCYTOSIS 1+; PLATELET ESTIMATE NORMAL
--- NOTE | 2017-10-06 12:56 | PN ---
Progress Note (short form) - Note Progress Note: Renal follow up for SHANTA Pt seen and examined in the ICU awake and alert on CPAP mode of vent, FiO2 is 40% making urine, has > 1000cc output today Vital Signs Temperature 98.6 F 10/06/17 10:00 Pulse Rate 75 10/06/17 10:00 Respiratory Rate 26 H 10/06/17 12:17 Blood Pressure 101/40 10/06/17 10:00 O2 Sat by Pulse Oximetry (%) 94 L 10/06/17 09:17 Intake & Output 10/03/17 10/04/17 10/05/17 10/06/17 23:59 23:59 23:59 23:59 Intake Total 9269 1063.5 3235.6 881.6 Output Total 350 300 289 2798 Balance 8919 463.5 2635.6 -118.4 Weight 50.802 kg 56.472 kg 56.427 kg 57.153 kg NAD on Vent via ET tube tachycardic, no murmur or rub Dec Bs at left lung base soft NT/ND Abd lazcano in place no LE edema, clubbing or cyanosis. Legs are cool CBC, BMP 10/06/17 05:50 10/06/17 05:50 Current Medications Chlorhexidine Gluconate (Hibiclens For Decolonization -) 1 applic TP HS [facility] Last Admin: 10/05/17 21:35 Dose: 1 applic Diltiazem HCl (Cardizem -) 60 mg PO Q6HPO [facility] Last Admin: 10/06/17 05:31 Dose: 60 mg Heparin Sodium (Porcine) (Heparin -) 5,000 unit SQ BID [facility] Last Admin: 10/06/17 09:52 Dose: 5,000 unit Azithromycin 500 mg/ Dextrose 250 mls @ 250 mls/hr IVPB DAILY [facility] Last Admin: 10/06/17 11:36 Dose: 250 mls/hr Piperacillin Sod/Tazobactam (Sod 2.25 gm/ Dextrose) 50 mls @ 100 mls/hr IVPB Q8H-IV [facility] Last Admin: 10/06/17 09:52 Dose: 100 mls/hr Propofol (Diprivan -) 1,000,000 mcg in 100 mls @ 3.388 mls/hr IVPB TITR SELVIN; 10 MCG/KG/MIN PRN Reason: Protocol Last Admin: 10/05/17 10:33 Dose: 10 mcg/kg/min, 3.388 mls/hr Insulin Aspart (Novolog Vial Sliding Scale -) 1 vial SQ ACHS [facility] PRN Reason: Protocol Last Admin: 10/06/17 11:40 Dose: 4 unit Insulin Detemir (Levemir Vial) 6 units SQ HS [facility] Last Admin: 10/05/17 21:48 Dose: 6 units Metoprolol Tartrate (Lopressor Injection -) 5 mg IVPUSH Q4H PRN PRN Reason: TACHYCARDIA Last Admin: 10/05/17 17:49 Dose: 5 mg Midazolam HCl (Versed -) 2 mg IVPUSH Q2H PRN PRN Reason: AGITATION Last Admin: 10/04/17 01:14 Dose: 2 mg Mupirocin (Bactroban Ointment (For Decolonization) -) 1 applic NS BID [facility] Stop: 10/08/17 09:59 Last Admin: 10/06/17 09:52 Dose: 1 applic Pantoprazole Sodium (Protonix Iv) 40 mg IVPUSH DAILY [facility] Last Admin: 10/06/17 09:51 Dose: 40 mg 76 year old male with a significant past medical history of COPD, GI bleed, diverticulosis, HLD, CVA, intussusception, umbilical hernia, DM, HTN, sinus cancer with excision and polypectomy who presents to the ED, accompanied by , s/p high blood sugar levels earlier today. #SHANTA on CKD likely due to ATN in setting of sepsis #Sepsis/PNA #AG and Non-AG Metabolic acidosis (corrected AG is 19) #Anemia #Hx of Hypertension #DM on Insulin Renal function stable, urine output improving no indication for BROKE BEATER at the present time AG metabolic acidosis persists but PH > 7.3, no need for bicarb at this time keep MAP > 65 Dose all meds for CrCl less then 15 Tomás Al DO
--- NOTE | 2017-10-06 13:10 | PN ---
Teaching Attending Note Name of Resident: Archana Davis ATTENDING PHYSICIAN STATEMENT I saw and evaluated the patient. I reviewed the resident's note and discussed the case with the resident. I agree with the resident's findings and plan as documented. SUBJECTIVE: Pt seen and examined in the ICU. Remains intubated, sedated but arousable and alert off propofol. Extremities flaccid but able to protrude tongue, move eyes and raise eyebrows. OBJECTIVE: Last Vital Signs Temp Pulse Resp BP Pulse Ox 98.6 F 75 26 H 101/40 94 L 10/06/17 10:00 10/06/17 10:00 10/06/17 12:17 10/06/17 10:00 10/06/17 09:17 Intake & Output 10/03/17 10/04/17 10/05/17 10/06/17 23:59 23:59 23:59 23:59 Intake Total 9269 1063.5 3235.6 881.6 Output Total 350 769 597 4539 Balance 8919 463.5 2635.6 -118.4 Weight 50.802 kg 56.472 kg 56.427 kg 57.153 kg Gen: intubated, awake Heart: RRR Lung: bilateral rhonchi Abd: soft, nontender Ext: + edema CBC, BMP 10/06/17 05:50 10/06/17 05:50 Active Medications Chlorhexidine Gluconate (Hibiclens For Decolonization -) 1 applic TP HS [facility] Last Admin: 10/05/17 21:35 Dose: 1 applic Diltiazem HCl (Cardizem -) 60 mg PO Q6HPO [facility] Last Admin: 10/06/17 05:31 Dose: 60 mg Heparin Sodium (Porcine) (Heparin -) 5,000 unit SQ BID [facility] Last Admin: 10/06/17 09:52 Dose: 5,000 unit Azithromycin 500 mg/ Dextrose 250 mls @ 250 mls/hr IVPB DAILY [facility] Last Admin: 10/06/17 11:36 Dose: 250 mls/hr Piperacillin Sod/Tazobactam (Sod 2.25 gm/ Dextrose) 50 mls @ 100 mls/hr IVPB Q8H-IV [facility] Last Admin: 10/06/17 09:52 Dose: 100 mls/hr Propofol (Diprivan -) 1,000,000 mcg in 100 mls @ 3.388 mls/hr IVPB TITR SELVIN; 10 MCG/KG/MIN PRN Reason: Protocol Last Admin: 10/05/17 10:33 Dose: 10 mcg/kg/min, 3.388 mls/hr Insulin Aspart (Novolog Vial Sliding Scale -) 1 vial SQ ACHS [facility] PRN Reason: Protocol Last Admin: 10/06/17 11:40 Dose: 4 unit Insulin Detemir (Levemir Vial) 6 units SQ HS [facility] Last Admin: 10/05/17 21:48 Dose: 6 units Metoprolol Tartrate (Lopressor Injection -) 5 mg IVPUSH Q4H PRN PRN Reason: TACHYCARDIA Last Admin: 10/05/17 17:49 Dose: 5 mg Midazolam HCl (Versed -) 2 mg IVPUSH Q2H PRN PRN Reason: AGITATION Last Admin: 10/04/17 01:14 Dose: 2 mg Mupirocin (Bactroban Ointment (For Decolonization) -) 1 applic NS BID [facility] Stop: 10/08/17 09:59 Last Admin: 10/06/17 09:52 Dose: 1 applic Pantoprazole Sodium (Protonix Iv) 40 mg IVPUSH DAILY [facility] Last Admin: 10/06/17 09:51 Dose: 40 mg ASSESSMENT AND PLAN: Acute Hypoxic Respiratory Failure Pneumonia Septic Shock Acute on Chronic Renal Failure Lactic Acidosis Diabetic Ketoacidosis improving Paroxysmal Atrial Fibrillation with RVR HTN DM COPD r/o Critical Illness Myopathy/Polyneuropathy - continue antibiotics - f/u cultures - monitor urine output, creatinine - monitor I/Os - glucose control - rate control - anticoagulation per cardiology - taper FiO2 to keep SpO2 >90% - monitoring off pressors - may need EMG if no improvement in neurologic function - daily sedation vacations and spontaneous breathing trials as tolerated - enteral feeds - DVT/GI prophylaxis critical care time spent in reviewing chart, evaluating patient and formulating plan 35 min
[2017-10-06] MEDS: PROPOFOL 1,000,000 MCG/100 ML VIAL IVPB SCH (14:33)
--- NOTE | 2017-10-06 14:40 | PN ---
Progress Note (short form) - Note Progress Note: CC: afib S: Yesterday started on po dilt with improvement in HR control. no overnight events. remains intubated/sedated, but responsive. Current Medications Chlorhexidine Gluconate (Hibiclens For Decolonization -) 1 applic TP HS [facility] Last Admin: 10/05/17 21:35 Dose: 1 applic Diltiazem HCl (Cardizem -) 60 mg PO Q6HPO [facility] Last Admin: 10/06/17 05:31 Dose: 60 mg Heparin Sodium (Porcine) (Heparin -) 5,000 unit SQ BID [facility] Last Admin: 10/06/17 09:52 Dose: 5,000 unit Azithromycin 500 mg/ Dextrose 250 mls @ 250 mls/hr IVPB DAILY [facility] Last Admin: 10/06/17 11:36 Dose: 250 mls/hr Piperacillin Sod/Tazobactam (Sod 2.25 gm/ Dextrose) 50 mls @ 100 mls/hr IVPB Q8H-IV [facility] Last Admin: 10/06/17 09:52 Dose: 100 mls/hr Propofol (Diprivan -) 1,000,000 mcg in 100 mls @ 3.388 mls/hr IVPB TITR [facility]EL[facility]; 10 MCG/KG/MIN PRN Reason: Protocol Last Admin: 10/06/17 14:33 Dose: 10 mcg/kg/min, 3.388 mls/hr Insulin Aspart (Novolog Vial Sliding Scale -) 1 vial SQ [facility] PRN Reason: Protocol Last Admin: 10/06/17 11:40 Dose: 4 unit Insulin Detemir (Levemir Vial) 6 units SQ [facility] Last Admin: 10/05/17 21:48 Dose: 6 units Metoprolol Tartrate (Lopressor Injection -) 5 mg IVPUSH Q4H PRN PRN Reason: TACHYCARDIA Last Admin: 10/05/17 17:49 Dose: 5 mg Midazolam HCl (Versed -) 2 mg IVPUSH Q2H PRN PRN Reason: AGITATION Last Admin: 10/04/17 01:14 Dose: 2 mg Mupirocin (Bactroban Ointment (For Decolonization) -) 1 applic NS BID [facility] Stop: 10/08/17 09:59 Last Admin: 10/06/17 09:52 Dose: 1 applic Pantoprazole Sodium (Protonix Iv) 40 mg IVPUSH DAILY [facility] Last Admin: 10/06/17 09:51 Dose: 40 mg Vital Signs - 24 hr 10/05/17 10/05/17 10/05/17 15:45 16:00 17:49 Temperature Pulse Rate 90 145 H Respiratory 22 22 Rate Blood Pressure 103/43 101/47 O2 Sat by Pulse Oximetry (%) 10/05/17 10/05/17 10/05/17 18:00 18:49 20:00 Temperature Pulse Rate 123 H 84 Respiratory 22 31 H 20 Rate Blood Pressure 98/58 84/54 O2 Sat by Pulse Oximetry (%) 10/05/17 10/05/17 10/05/17 21:00 22:00 23:30 Temperature 98.4 F Pulse Rate 82 86 Respiratory 24 22 22 Rate Blood Pressure 84/54 88/56 O2 Sat by Pulse 100 Oximetry (%) 10/06/17 10/06/17 10/06/17 00:00 02:00 02:30 Temperature 98.2 F Pulse Rate 82 77 Respiratory 22 22 26 H Rate Blood Pressure 91/43 96/50 O2 Sat by Pulse Oximetry (%) 10/06/17 10/06/17 10/06/17 04:00 05:00 06:00 Temperature 98.6 F Pulse Rate 74 73 Respiratory 18 20 21 Rate Blood Pressure 99/38 108/45 O2 Sat by Pulse Oximetry (%) 10/06/17 10/06/17 10/06/17 07:04 08:00 09:00 Temperature Pulse Rate 76 Respiratory 19 14 14 Rate Blood Pressure 111/40 O2 Sat by Pulse 94 L Oximetry (%) 10/06/17 10/06/17 10/06/17 09:17 10:00 12:17 Temperature 98.6 F Pulse Rate 75 75 Respiratory 28 H 14 26 H Rate Blood Pressure 101/40 O2 Sat by Pulse 94 L Oximetry (%) 10/06/17 14:00 Temperature Pulse Rate Respiratory 16 Rate Blood Pressure 99/43 O2 Sat by Pulse Oximetry (%) Intake & Output 10/04/17 10/05/17 10/06/17 10/07/17 07:59 07:59 07:59 07:59 Intake Total 78365.5 2396 1721.2 Output Total 123 156 1714 Balance 9632.5 1846 421.2 Weight 124 lb 8 oz 124 lb 6.4 oz 126 lb NAD, cachectic, intubated, sedated. opens eyes to stimulation. JVD flat, neck supple diffuse rhonchi, nl effort rrr nl s1, s2 2/6 sys murmur at sternal border + bs soft nt nd. no le e/c/c diminished dp/pt no carotid bruits no jaundice, diaphoresis CBC, BMP 10/06/17 05:50 10/06/17 05:50 Laboratory Tests 08/09/17 10/05/17 10/06/17 06:37 05:50 05:50 Band Neutrophils % 1.0 ABG pH ABG pO2 at Pt Temp BUN 92 H Creatinine 3.4 H Magnesium 1.7 L Ferritin Albumin 10/06/17 10/06/17 05:50 06:30 Band Neutrophils % ABG pH 7.30 L ABG pO2 at Pt Temp 84.2 BUN Creatinine Magnesium 1.8 Ferritin 202.816 Albumin 1.1 L EKG 10/03: sinus tach with atrial run. non-sp t wave ab. no ischemic changes. tele: currently SR with pac's. 1 atrial run. last afib was yesterday afternoon. cxr 10/05: RLL consolidation and pleural fluid. cxr 10/06: no sig change 10/05 renal u/s reviewed. small amount of ascites. see emr for detailed report. echo 06/2017: mod lvh. nl lv fn. nl rv size/fn. 1+ lae. mod-sev mac with mod ms. 1+ mr. nl rvsp. 1+ ao dilation A/P 76 yo with pmhx of htn, hl, pad, afib (not on AC due to GIB), cva (no residual deficits), copd, dm, mgus, esthesioneuroblastoma treated with radiation therapy , chronic anemia s/p recent GIB admitted with dka, sepsis, resp failure. Hospital course now complicated by episode of afib with rvr afib - not previously a candidate for AC b/c of prior hx of GIB. remains anemic. - s/p IV amio. started po dilt 10/05. now back in sr. hr controlled. - lyte repletion prn. htn - anti-htn regimen had been held b/c of hypotension/sepsis. Diltiazem started for rate control. sbp stable 90-100's. cva/pad - con't statin. per pmd, previously not a candidate for asa due to recent gib and anemia. Discussed again with pmd today. will give trial of ASA and monitor hgb. iron studies pending. mild asc ao dilation - can consider switching to beta car once resp issues resolve. dka/sepsis/resp failure - ongoing mgm't per pmd/pulm/id SHANTA - renal following, no sig improvement today 10/06. anemia - as above. > 35 min cct
--- NOTE | 2017-10-06 14:48 | PN ---
Physical Exam: SUBJECTIVE: Patient seen and examined by me at bedside. No overnight events noted. Patient remains intubated and ventilated. Sedation vacation and weaning trials started today and patient tolerated well on CPAP for over 2 hours. Patient however, remains flaccid with little movement of extremities. After 3-4 hours of propofol discontinued patient was able to squeeze my fingers lightly, stick his tongue and raise his eyebrows. OBJECTIVE: Vital Signs Period Temp Pulse Resp BP Sys/Sy Pulse Ox Last 24 Hr 98.2 F-98.6 F 73-145 14-31 84-111/38-58 94-100 GENERAL: The patient is awake and ventilated. EYES: Sclera anicteric, conjunctiva clear. LUNGS: Bilateral Rhonchi throughout lung bases. Ventilated and sedated HEART: Regular rate and rhythm with 2/6 sys murmur at sternal border ABDOMEN: Soft, nontender, nondistended, normoactive bowel sounds EXTREMITIES: bilateral 1+ pitting edema NEUROLOGICAL: Able to raise eyebrows VENT SETTINGS: Laboratory Results - last 24 hr CBC, BMP 10/06/17 05:50 10/06/17 05:50 Laboratory Tests 10/06/17 05:50 Phosphorus 5.1 H D Magnesium 1.8 Total Protein 3.8 L Albumin 1.1 L Vitamin B12 1602 H Serum Folate 23 H Active Medications Generic Name Dose Route Start Last Admin Trade Name Dannyq PRN Reason Stop Dose Admin Chlorhexidine Gluconate 1 applic 10/03/17 22:00 10/05/17 21:35 Hibiclens For Decolonization - TP 1 applic HS [facility] Administration Diltiazem HCl 60 mg 10/05/17 18:00 10/06/17 12:00 Cardizem - PO 60 mg Q6HPO [facility]EL[facility]IN Administration Heparin Sodium (Porcine) 5,000 unit 10/03/17 10:00 10/06/17 09:52 Heparin - SQ 5,000 unit BID [facility] Administration Azithromycin 500 mg/ Dextrose 250 mls @ 250 mls/hr 10/04/17 10:00 10/06/17 11 :36 IVPB 250 mls/hr DAILY [facility] Administration Piperacillin Sod/Tazobactam 50 mls @ 100 mls/hr 10/03/17 18:00 10/06/17 09:52 Sod 2.25 gm/ Dextrose IVPB 100 mls/hr Q8H-IV [facility] Administration Propofol 1,000,000 mcg in 100 mls @ 3.388 mls/hr 10/04/17 09:15 10/06/17 14: 33 Diprivan - IVPB 10 mcg/kg/min TITR SELVIN 3.388 mls/hr Protocol Administration 10 MCG/KG/MIN Insulin Aspart 1 vial 10/04/17 11:00 10/06/17 11:40 Novolog Vial Sliding Scale - SQ 4 unit ACHS SEL[facility]IN Administration Protocol Insulin Detemir 6 units 10/05/17 22:00 10/05/17 21:48 Levemir Vial SQ 6 units HS [facility] Administration Magnesium Sulfate 1 gm 10/06/17 14:41 Magnesium Sulfate IVPB 10/06/17 14:42 ONCE ONE Metoprolol Tartrate 5 mg 10/03/17 19:00 10/05/17 17:49 Lopressor Injection - IVPUSH 5 mg Q4H PRN Administration TACHYCARDIA Midazolam HCl 2 mg 10/03/17 14:35 10/04/17 01:14 Versed - IVPUSH 2 mg Q2H PRN Administration AGITATION Mupirocin 1 applic 10/03/17 10:00 10/06/17 09:52 Bactroban Ointment (For Decolonization) - NS 10/08/17 09:59 1 applic BID [facility] Administration Pantoprazole Sodium 40 mg 10/05/17 14:45 10/06/17 09:51 Protonix Iv IVPUSH 40 mg DAILY [facility] Administration ASSESSMENT/PLAN: Patient is a 76 year old male with who presented for acute respiratory failure and was found to have pneumonia and DKA. Patient is admitted to ICU for further monitoring and management. Pulmonology #Acute Hypoxic Respiratory Failure -Likely secondary to Pneumonia -Continue Zosyn 2.25mg IV Q8H AND Azithromycin 500mg IV -Patient off Versed -Continue Daily sedation vacations and spontaneous breathing trials. Tolerated over 2 hours today and became tachypneic #COPD -Continue Nebulizers -Continue Ventilation -Continue IV Abx Infectious Disease #Septic Shock secondary to Pneumonia -Continue IV abx Azithromycin and Zosyn -Blood cultures negative -Sputum cultures staph -Legionella negative -HOB -Aspiration precaution Nephrology #Acute on Chronic Renal Failure -Likely ATN secondary from Septic hock -Urine output improving with >1000 output -Renal function stable with BUN/Creatinine 98/3.5 -No indication for Emergent Dialysis #AG and Non-AG Metabolic acidosis -Continues to have metabolic acidosis but PH is above 7.3 and therefore no need for Bicarb drip -Continue daily ABG's Cardiovascular #Paroxysmal Atrial Fibrillation -Continue Cardizem 60mg Q6H -Metoprolol 5mg IVP Q4H PRN for Tachycardia #HTN -Patient hypotensive -No Lasix today -Will continue to monitor BP #CAD/PVD -Continue Statin when patient is extubated Endocrine #DKA-Resolved -Continue ISS -Continue BGM -Continue Levemir 6 units HS Neurology #Rule out Critical Illness Myopathy/Polyneuropathy -Patient flaccid with minimal movement -Will order EMG if neurological function does not improve F/E/N -On no fluids -Electrolytes wnl -NPO- On tube feeds- Glucerna Prophylaxis -High risk. Heparin 5000 units SQ for DVT -Protonix 40mg IVP daily Disposition -Full code -Continue sedation vacation and spontaneous breathing trials Visit type - Emergency Visit Emergency Visit: Yes ED Registration Date: 10/03/17 Care time: The patient presented to the Emergency Department on the above date and was hospitalized for further evaluation of their emergent condition. - New Patient This patient is new to me today: Yes Date on this admission: 10/07/17 - Critical Care Critical Care patient: Yes Total Critical Care Time (in minutes): 45 Critical Care Statement: The care of this patient involved high complexity decision making to prevent further life threatening deterioration of the patient 's condition and/or to evaluate & treat vital organ system(s) failure or risk of failure.
[2017-10-06] MEDS ORDERED: MAGNESIUM 1GM/D5W 100ML - 100 ML IVPB IVPB ONE (15:00)
[2017-10-06] MEDS ORDERED: MAGNESIUM SULF 50% (8.12 MEQ/2 ML-1 GM VIAL) ONE (15:06)
[2017-10-06 15:34] LABS: INR 1.09 (0.82-1.09); PROTHROMBIN TIME (PATIENT) 12.3 SEC (9.98-11.88)
--- NOTE | 2017-10-06 15:39 | PN ---
Progress Note, Physician History of Present Illness: patient still intubated improving opening eyes no issues - Current Medication List Current Medications: Active Medications Chlorhexidine Gluconate (Hibiclens For Decolonization -) 1 applic TP HS [facility] Last Admin: 10/05/17 21:35 Dose: 1 applic Diltiazem HCl (Cardizem -) 60 mg PO Q6HPO [facility] Last Admin: 10/06/17 12:00 Dose: 60 mg Heparin Sodium (Porcine) (Heparin -) 5,000 unit SQ BID [facility] Last Admin: 10/06/17 09:52 Dose: 5,000 unit Azithromycin 500 mg/ Dextrose 250 mls @ 250 mls/hr IVPB DAILY [facility] Last Admin: 10/06/17 11:36 Dose: 250 mls/hr Piperacillin Sod/Tazobactam (Sod 2.25 gm/ Dextrose) 50 mls @ 100 mls/hr IVPB Q8H-IV [facility] Last Admin: 10/06/17 09:52 Dose: 100 mls/hr Propofol (Diprivan -) 1,000,000 mcg in 100 mls @ 3.388 mls/hr IVPB TITR SELVIN; 10 MCG/KG/MIN PRN Reason: Protocol Last Admin: 10/06/17 14:33 Dose: 10 mcg/kg/min, 3.388 mls/hr Insulin Aspart (Novolog Vial Sliding Scale -) 1 vial SQ [facility] PRN Reason: Protocol Last Admin: 10/06/17 11:40 Dose: 4 unit Insulin Detemir (Levemir Vial) 6 units SQ [facility] Last Admin: 10/05/17 21:48 Dose: 6 units Metoprolol Tartrate (Lopressor Injection -) 5 mg IVPUSH Q4H PRN PRN Reason: TACHYCARDIA Last Admin: 10/05/17 17:49 Dose: 5 mg Midazolam HCl (Versed -) 2 mg IVPUSH Q2H PRN PRN Reason: AGITATION Last Admin: 10/04/17 01:14 Dose: 2 mg Mupirocin (Bactroban Ointment (For Decolonization) -) 1 applic NS BID [facility] Stop: 10/08/17 09:59 Last Admin: 10/06/17 09:52 Dose: 1 applic Pantoprazole Sodium (Protonix Iv) 40 mg IVPUSH DAILY [facility] Last Admin: 10/06/17 09:51 Dose: 40 mg - Objective Vital Signs: Vital Signs Temperature 98.6 F 10/06/17 10:00 Pulse Rate 85 10/06/17 12:00 Respiratory Rate 20 10/06/17 14:51 Blood Pressure 99/43 10/06/17 14:00 O2 Sat by Pulse Oximetry (%) 94 L 10/06/17 09:17 Constitutional: Yes: No Distress, Calm Cardiovascular: Yes: Regular Rate and Rhythm Respiratory: Yes: Intubated, Mechanically Ventilated Gastrointestinal: Yes: Normal Bowel Sounds, Soft, Other (og tube in place) Musculoskeletal: Yes: WNL Extremities: Yes: WNL Neurological: Yes: Other (opens eyes) Labs: CBC, BMP 10/06/17 05:50 10/06/17 05:50 INR, PTT INR 1.33 (0.82-1.09) H 10/03/17 12:00 - ....Imaging Chest X-ray: Report Reviewed, Image Reviewed Assessment/Plan 76 year old male with a significant past medical history of COPD, GI bleed, diverticulosis, HLD, CVA, intussusception, umbilical hernia, DM, HTN, sinus cancer with excision and polypectomy who is now intubated and sedated and on pressors Acute Hypoxic Respiratory Failure Pneumonia Septic Shock Acute on Chronic Renal Failure Lactic Acidosis Diabetic Ketoacidosis improving HTN DM COPD cx result noted plan continue abx continue close monitoring wean as tolerated rest continue current mgmt patient improving cc time 40 min
--- NOTE | 2017-10-06 18:30 | PN ---
Progress Note (short form) - Note Progress Note: Intubated, sedated on Propofol Eyes open On tube feeding Vital Signs Period Temp Pulse Resp BP Sys/Sy Pulse Ox Last 24 Hr 98.2 F-98.6 F 73-88 14-31 84-111/38-56 94-100 PE: Eyes open Neck: supple Lungs: Few rhonchi CVS: s1S2 Abd: Benign Ext: No edema CMP Sodium 139 mmol/L (136-145) 10/06/17 05:50 Potassium 4.7 mmol/L (3.5-5.1) 10/06/17 05:50 Chloride 110 mmol/L (98-107) H 10/06/17 05:50 Carbon Dioxide 17 mmol/L (21-32) L 10/06/17 05:50 Anion Gap 12 (8-16) 10/06/17 05:50 BUN 98 mg/dL (7-18) H 10/06/17 05:50 Creatinine 3.5 mg/dL (0.7-1.3) H 10/06/17 05:50 Creat Clearance w eGFR 17.02 (>60) 10/06/17 05:50 POC Glucometer 249.92784 UNITS (80-120) 10/06/17 11:41 Random Glucose 213 mg/dL (74-106) H 10/06/17 05:50 Hemoglobin A1c % 8.5 % (4.8-6.0) H D 10/04/17 06:00 Lactic Acid 2.0 mmol/L (0.0-2.0) 10/03/17 12:00 Calcium 7.1 mg/dL (8.5-10.1) L 10/06/17 05:50 Phosphorus 5.1 mg/dL (2.5-4.9) H D 10/06/17 05:50 Magnesium 1.8 mg/dL (1.8-2.4) 10/06/17 05:50 Ferritin 202.816 ng/ml (16.4-293.9) 10/06/17 05:50 Total Bilirubin 0.1 mg/dL (0.2-1.0) L D 10/06/17 05:50 AST 24 U/L (15-37) 10/06/17 05:50 ALT 14 U/L (12-78) 10/06/17 05:50 Alkaline Phosphatase 112 U/L (45-117) 10/06/17 05:50 Total Protein 3.8 g/dl (6.4-8.2) L 10/06/17 05:50 Albumin 1.1 g/dl (3.4-5.0) L 10/06/17 05:50 Vitamin B12 1602 pg/ml (180-914) H 10/06/17 05:50 Serum Folate 23 ng/ml (3.1-17.5) H 10/06/17 05:50 Current Medications Generic Name Dose Route Start Last Admin Trade Name Freq PRN Reason Stop Dose Admin Chlorhexidine Gluconate 1 applic 10/03/17 22:00 10/05/17 21:35 Hibiclens For Decolonization - TP 1 applic HS SELVIN Administration Diltiazem HCl 60 mg 10/05/17 18:00 10/06/17 17:02 Cardizem - PO 60 mg Q6HPO SEL[facility] Administration Heparin Sodium (Porcine) 5,000 unit 10/03/17 10:00 10/06/17 09:52 Heparin - SQ 5,000 unit BID [facility]IN Administration Azithromycin 500 mg/ Dextrose 250 mls @ 250 mls/hr 10/04/17 10:00 10/06/17 11 :36 IVPB 250 mls/hr DAILY [facility] Administration Piperacillin Sod/Tazobactam 50 mls @ 100 mls/hr 10/03/17 18:00 10/06/17 17:02 Sod 2.25 gm/ Dextrose IVPB 100 mls/hr Q8H-IV [facility] Administration Propofol 1,000,000 mcg in 100 mls @ 3.388 mls/hr 10/04/17 09:15 10/06/17 14: 33 Diprivan - IVPB 10 mcg/kg/min TITR SELVIN 3.388 mls/hr Protocol Administration 10 MCG/KG/MIN Insulin Aspart 1 vial 10/04/17 11:00 10/06/17 17:05 Novolog Vial Sliding Scale - SQ 4 unit ACHS SELVIN Administration Protocol Insulin Detemir 6 units 10/05/17 22:00 10/05/17 21:48 Levemir Vial SQ 6 units HS SEL[facility]IN Administration Metoprolol Tartrate 5 mg 10/03/17 19:00 10/05/17 17:49 Lopressor Injection - IVPUSH 5 mg Q4H PRN Administration TACHYCARDIA Midazolam HCl 2 mg 10/03/17 14:35 10/04/17 01:14 Versed - IVPUSH 2 mg Q2H PRN Administration AGITATION Mupirocin 1 applic 10/03/17 10:00 10/06/17 09:52 Bactroban Ointment (For Decolonization) - NS 10/08/17 09:59 1 applic BID SEL[facility]IN Administration Pantoprazole Sodium 40 mg 10/05/17 14:45 10/06/17 09:51 Protonix Iv IVPUSH 40 mg DAILY SEL[facility]IN Administration AP; Acute Hypoxic Respiratory Failure Pneumonia Septic Shock DM with Acidosis ? DKA,?Lactic acidosis Acute on Chronic Renal Failure Paroxysmal Atrial Fibrillation with RVR HTN COPD BGM Q6 hr increase Levemir 10 units daily Increase Novolog coverage continue antibiotics Tube feeding 40ml/hr Chart reviewed Start D10W at 42 ml/hr if tube feeding is held or discontinued for any reason until pt is able to eat. Should be on long acting Insulin for now Will F/U
[2017-10-06] MEDS: CHLORHEXIDINE GLUCONATE 4% CLEANSER FOR DECOLONIZATION TP SCH (21:18)
[2017-10-06] MEDS ORDERED: INSULIN (LEVEMIR) 100 UNITS/ML UNITS SQ SCH (22:00)
[2017-10-07] MEDS ORDERED: PIPERACILLIN/TAZOBACTAM 2.25 GM VIAL IVPB ONE ×3 (00:04→18:41)
[2017-10-07] MEDS ORDERED: DEXTROSE 5%-WATER - 50 ML IVPB ONE ×3 (00:04→18:41)
[2017-10-07] MEDS: dilTIAZem HCL 60 MG TABLET (FP) PO SCH ×4 (00:14→18:52)
[2017-10-07] MEDS: PIPERACILLIN/TAZOB 2.25 GM 2.25 GM in DEXTROSE 5%-WATER - 50 ML IVPB SCH ×3 (01:12→18:52)
[2017-10-07] MEDS: INSULIN SLIDING SCALE (NOVOLOG) 1 VIAL SQ SCH ×4 (06:26→21:49)
[2017-10-07 06:38] LABS: ARTERIAL BLD GAS O2 SATURATION 91.5 % (90-98.9); ARTERIAL BLOOD GAS PCO2 28.4 mmHg (35-45); ARTERIAL BLOOD GAS pH 7.29 (7.35-7.45)
[2017-10-07 06:58] LABS: ARTERIAL BLOOD GAS BASE EXCESS -11.7 meq/l (-2-2)
[2017-10-07 06:59] LABS: HEMATOCRIT 29.8 % (35.4-49); HEMOGLOBIN 9.8 GM/dL (11.7-16.9); MCH 30.2 pg (25.7-33.7); MEAN CELL VOLUME 91.6 fl (80-96); MEAN PLT VOLUME 9.6 fl (7.5-11.1); PLATELET COUNT 263 K/MM3 (134-434); RBC 3.25 M/mm3 (4.00-5.60); RDW 16.5 % (11.9-15.9); WHITE BLOOD COUNT 23.4 K/mm3 (4.0-10.0)
[2017-10-07 07:21] LABS: ALBUMIN 1.2 g/dl (3.4-5.0); ANION GAP 16 (8-16); CALCIUM 7.7 mg/dL (8.5-10.1); CHLORIDE 106 mmol/L (98-107); CO2 15 mmol/L (21-32); GLUCOSE,RANDOM 255 mg/dL (74-106); PHOSPHOROUS 5.2 mg/dL (2.5-4.9); SODIUM 137 mmol/L (136-145)
[2017-10-07 07:27] LABS: ALK PHOS 156 U/L (45-117); BILIRUBIN,TOTAL 0.4 mg/dL (0.2-1.0); SGPT/ALT 21 U/L (12-78); TOT PROT 4.9 g/dl (6.4-8.2)
--- NOTE | 2017-10-07 08:56 | PN ---
Progress Note (short form) - Note Progress Note: Patient seen and examined. Seems more alert today with eye movements and ability to understand commands. Renal lab and WBC still markedly elevated. Continues on Vent with no changes on CXR but persisting RLL changes. BGM's 200- 250. 1700 cc urine output yesterday. On Exam: Vital Signs Temp 99.8 F H 10/07/17 06:00 Pulse 96 H 10/07/17 08:29 Resp 29 H 10/07/17 08:29 BP 123/73 10/07/17 06:00 Pulse Ox 97 10/07/17 08:29 Intake & Output 10/06/17 10/06/17 10/07/17 11:59 23:59 11:59 Intake Total 881.6 808.4 Output Total 1000 700 300 Balance -118.4 -700 508.4 Weight 126 lb Intake: IV 81.6 38.4 DIPRIVAN - 1,000,000 mcg 81.6 38.4 In 100 ml @ 10 MCG/KG/MIN 3.388 mls/hr IVPB TITR SELVIN Rx#:[id number] IVPB 200 50 Tube Feeding 360 480 Tube Irrigant 240 240 Output: Urine 1000 700 300 [place] 1000 700 300 Other: Voiding Method Indwelling Catheter Indwelling Catheter Indwelling Catheter Bowel Movement No No Weight Measurement Method Built in Bedscale Seems more alert pupils equal Chest:few rhonchi right base Cor: reg but tachycardia Abd: Soft and doesn't appear to be tender Ext: No edema but still cool feet and no DP or PT pulses Abnormal Lab Results 10/06/17 10/06/17 10/07/17 05:50 14:10 06:05 WBC 23.4 H RBC 3.25 L Hgb 9.8 L D Hct 29.8 L D RDW 16.5 H Neutrophils % (Manual) 96.0 H* Lymphocytes % (Manual) 2.0 L Monocytes % (Manual) 1 L PT with INR 12.30 H ABG pH ABG pCO2 at Pt Temp ABG pO2 at Pt Temp ABG HCO3 ABG O2 Content ABG Base Excess Carbon Dioxide Creatinine Random Glucose Calcium Phosphorus Alkaline Phosphatase Total Protein Albumin 10/07/17 10/07/17 06:05 06:30 WBC RBC Hgb Hct RDW Neutrophils % (Manual) Lymphocytes % (Manual) Monocytes % (Manual) PT with INR ABG pH 7.29 L ABG pCO2 at Pt Temp 28.4 L ABG pO2 at Pt Temp 67.0 L D ABG HCO3 13.4 L* ABG O2 Content 12.3 L ABG Base Excess -11.7 L* Carbon Dioxide 15 L Creatinine 4.0 H Random Glucose 255 H Calcium 7.7 L Phosphorus 5.2 H Alkaline Phosphatase 156 H D Total Protein 4.9 L D Albumin 1.2 L IMP: Acute Sepsis Uncontrolled DM Acute Respiratory Failure Acute on Chronic Renal Failure PVD Chronic anemia Acute Pneumonia PLAN: Continue to moniter lab and CXR Attempts to wean BGM's as per Rasheed FRANCIS
[2017-10-07] MEDS ORDERED: PT OWN MED DRAWER 7, Y5N ONE (09:14)
[2017-10-07 09:31] LABS: OVALOCYTE 1+; PLATELET ESTIMATE NORMAL
[2017-10-07 10:01] LABS: MAGNESIUM 2.1 mg/dL (1.8-2.4); SGOT/AST 41 U/L (15-37)
[2017-10-07 10:07] LABS: BLOOD UREA NITROGEN 112 mg/dL (7-18)
[2017-10-07] MEDS: PROPOFOL 1,000,000 MCG/100 ML VIAL IVPB SCH ×2 (10:55→14:00)
[2017-10-07] MEDS: MUPIROCIN 2% TOPICAL OINTMENT FOR DECOLONIZATION NS SCH ×2 (10:57→21:05)
[2017-10-07] MEDS: PANTOPRAZOLE SODIUM 40 MG VIAL IVPUSH SCH (10:57)
[2017-10-07] MEDS: HEPARIN NA (PORCINE) 5,000 UNITS/ML 1ML VIAL SQ SCH ×2 (10:57→21:04)
[2017-10-07] MEDS: AZITHROMYCIN IVPB 500 MG in DEXTROSE 5%-WATER - 250 ML IVPB SCH (10:58)
[2017-10-07] MEDS: ASPIRIN 81 MG CHEWABLE TABLETS PO SCH (11:01)
--- NOTE | 2017-10-07 11:55 | PN ---
Progress Note (short form) - Note Progress Note: Intubated, sedated on Propofol Eyes open, awake, responds to questions On tube feeding Vital Signs Period Temp Pulse Resp BP Sys/Sy Pulse Ox Last 24 Hr 99.2 F-100.1 F 85-106 14-35 90-123/40-73 95-97 PE: Eyes open Neck: supple Lungs: CTA CVS: s1S2 Abd: Benign Ext: No edema CMP Sodium 137 mmol/L (136-145) 10/07/17 06:05 Potassium 5.0 mmol/L (3.5-5.1) 10/07/17 06:05 Chloride 106 mmol/L (98-107) 10/07/17 06:05 Carbon Dioxide 15 mmol/L (21-32) L 10/07/17 06:05 Anion Gap 16 (8-16) 10/07/17 06:05 BUN 112 mg/dL (7-18) H* 10/07/17 06:05 Creatinine 4.0 mg/dL (0.7-1.3) H 10/07/17 06:05 Creat Clearance w eGFR 14.59 (>60) 10/07/17 06:05 POC Glucometer 228.45809 UNITS (80-120) 10/06/17 21:15 Random Glucose 255 mg/dL (74-106) H 10/07/17 06:05 Hemoglobin A1c % 8.5 % (4.8-6.0) H D 10/04/17 06:00 Lactic Acid 2.0 mmol/L (0.0-2.0) 10/03/17 12:00 Calcium 7.7 mg/dL (8.5-10.1) L 10/07/17 06:05 Phosphorus 5.2 mg/dL (2.5-4.9) H 10/07/17 06:05 Magnesium 2.1 mg/dL (1.8-2.4) 10/07/17 06:05 Iron 22 ug/dL (38-169) L 10/06/17 05:50 Ferritin 202.816 ng/ml (16.4-293.9) 10/06/17 05:50 Total Bilirubin 0.4 mg/dL (0.2-1.0) D 10/07/17 06:05 AST 41 U/L (15-37) H D 10/07/17 06:05 ALT 21 U/L (12-78) D 10/07/17 06:05 Alkaline Phosphatase 156 U/L (45-117) H D 10/07/17 06:05 Total Protein 4.9 g/dl (6.4-8.2) L D 10/07/17 06:05 Albumin 1.2 g/dl (3.4-5.0) L 10/07/17 06:05 Vitamin B12 1602 pg/ml (180-914) H 10/06/17 05:50 Serum Folate 23 ng/ml (3.1-17.5) H 10/06/17 05:50 Current Medications Generic Name Dose Route Start Last Admin Trade Name Freq PRN Reason Stop Dose Admin Aspirin 81 mg 10/07/17 10:30 10/07/17 11:01 Asa - PO 81 mg DAILY SELVIN Administration Chlorhexidine Gluconate 1 applic 10/03/17 22:00 10/06/17 21:18 Hibiclens For Decolonization - TP 1 applic HS SELVIN Administration Diltiazem HCl 60 mg 10/05/17 18:00 10/07/17 06:27 Cardizem - PO 60 mg Q6HPO SELVIN Administration Heparin Sodium (Porcine) 5,000 unit 10/03/17 10:00 10/07/17 10:57 Heparin - SQ 5,000 unit BID SEL[facility]IN Administration Azithromycin 500 mg/ Dextrose 250 mls @ 250 mls/hr 10/04/17 10:00 10/07/17 10 :58 IVPB 250 mls/hr DAILY [facility] Administration Piperacillin Sod/Tazobactam 50 mls @ 100 mls/hr 10/03/17 18:00 10/07/17 10:58 Sod 2.25 gm/ Dextrose IVPB 100 mls/hr Q8H-IV SEL[facility]IN Administration Propofol 1,000,000 mcg in 100 mls @ 3.388 mls/hr 10/04/17 09:15 10/07/17 10: 56 Diprivan - IVPB 0 mcg/kg/min TITR SELVIN 0 mls/hr Protocol Titration 10 MCG/KG/MIN Dextrose 1,000 mls @ 42 mls/hr 10/06/17 18:45 D10w - IV ASDIR SELVIN Insulin Aspart 1 vial 10/06/17 22:00 10/07/17 06:26 Novolog Vial Sliding Scale - SQ 8 units ACHS SELVIN Administration Protocol Insulin Detemir 10 units 10/06/17 22:00 10/06/17 21:17 Levemir Vial SQ 10 units HS SEL[facility]IN Administration Metoprolol Tartrate 5 mg 10/03/17 19:00 10/05/17 17:49 Lopressor Injection - IVPUSH 5 mg Q4H PRN Administration TACHYCARDIA Midazolam HCl 2 mg 10/03/17 14:35 10/04/17 01:14 Versed - IVPUSH 2 mg Q2H PRN Administration AGITATION Mupirocin 1 applic 10/03/17 10:00 10/07/17 10:57 Bactroban Ointment (For Decolonization) - NS 10/08/17 09:59 1 applic BID SELVIN Administration Pantoprazole Sodium 40 mg 10/05/17 14:45 10/07/17 10:57 Protonix Iv IVPUSH 40 mg DAILY SEL[facility]IN Administration AP; Acute Hypoxic Respiratory Failure Pneumonia Septic Shock DM with Acidosis ? DKA,?Lactic acidosis Acute on Chronic Renal Failure Paroxysmal Atrial Fibrillation with RVR HTN COPD BGM Q6 hr increase Levemir 14 units daily Increase Novolog coverage continue antibiotics Tube feeding 40ml/hr Chart reviewed Start D10W at 42 ml/hr if tube feeding is held or discontinued for any reason until pt is able to eat. Should be on long acting Insulin for now Will F/U
[2017-10-07] MEDS ORDERED: SODIUM CHLORIDE 250 ML IV PRN (12:01)
--- NOTE | 2017-10-07 12:07 | PN ---
Progress Note (short form) - Note Progress Note: Renal follow up for SHANTA Pt seen and examined in the ICU awake on the Vent FiO2 40% making urine via lazcano midl hypotension noted during the day yesterday Vital Signs Temperature 99.3 F 10/07/17 10:00 Pulse Rate 91 H 10/07/17 10:00 Respiratory Rate 35 H 10/07/17 11:30 Blood Pressure 106/51 10/07/17 10:00 O2 Sat by Pulse Oximetry (%) 97 10/07/17 11:30 Intake & Output 10/04/17 10/05/17 10/06/17 10/07/17 23:59 23:59 23:59 23:59 Intake Total 1063.5 3235.6 881.6 808.4 Output Total 143 628 8767 300 Balance 463.5 2635.6 -818.4 508.4 Weight 56.472 kg 56.427 kg 57.153 kg NAD awake and alert RRR, No M/R Dec BS at lung bases soft NT/ND No LE edema, clubbing or cyanosis heels in dressing CBC, BMP 10/07/17 06:05 10/07/17 06:05 Current Medications Aspirin (Asa -) 81 mg PO DAILY [facility] Last Admin: 10/07/17 11:01 Dose: 81 mg Chlorhexidine Gluconate (Hibiclens For Decolonization -) 1 applic TP HS [facility] Last Admin: 10/06/17 21:18 Dose: 1 applic Diltiazem HCl (Cardizem -) 60 mg PO Q6HPO [facility] Last Admin: 10/07/17 06:27 Dose: 60 mg Heparin Sodium (Porcine) (Heparin -) 5,000 unit SQ BID [facility] Last Admin: 10/07/17 10:57 Dose: 5,000 unit Azithromycin 500 mg/ Dextrose 250 mls @ 250 mls/hr IVPB DAILY [facility] Last Admin: 10/07/17 10:58 Dose: 250 mls/hr Piperacillin Sod/Tazobactam (Sod 2.25 gm/ Dextrose) 50 mls @ 100 mls/hr IVPB Q8H-IV [facility] Last Admin: 10/07/17 10:58 Dose: 100 mls/hr Propofol (Diprivan -) 1,000,000 mcg in 100 mls @ 3.388 mls/hr IVPB TITR SELVIN; 10 MCG/KG/MIN PRN Reason: Protocol Last Titration: 10/07/17 10:56 Dose: 0 mcg/kg/min, 0 mls/hr Dextrose (D10w -) 1,000 mls @ 42 mls/hr IV ASDIR SELVIN Sodium Chloride (Normal Saline -) 250 mls @ 3,000 mls/hr IV PRN PRN PRN Reason: Hypotension during Dialysis Stop: 10/08/17 12:01 Insulin Aspart (Novolog Vial Sliding Scale -) 1 vial SQ ACHS SELVIN PRN Reason: Protocol Insulin Detemir (Levemir Vial) 12 units SQ HS [facility]EL[facility] Metoprolol Tartrate (Lopressor Injection -) 5 mg IVPUSH Q4H PRN PRN Reason: TACHYCARDIA Last Admin: 10/05/17 17:49 Dose: 5 mg Midazolam HCl (Versed -) 2 mg IVPUSH Q2H PRN PRN Reason: AGITATION Last Admin: 10/04/17 01:14 Dose: 2 mg Mupirocin (Bactroban Ointment (For Decolonization) -) 1 applic NS BID [facility] Stop: 10/08/17 09:59 Last Admin: 10/07/17 10:57 Dose: 1 applic Pantoprazole Sodium (Protonix Iv) 40 mg IVPUSH DAILY [facility] Last Admin: 10/07/17 10:57 Dose: 40 mg 76 year old male with a significant past medical history of COPD, GI bleed, diverticulosis, HLD, CVA, intussusception, umbilical hernia, DM, HTN, sinus cancer with excision and polypectomy who presents to the ED, accompanied by , s/p high blood sugar levels earlier today. #SHANTA on CKD likely due to ATN in setting of sepsis #Sepsis/PNA #AG and Non-AG Metabolic acidosis (corrected AG is 19) #Anemia #Hx of Hypertension #DM on Insulin Renal function continues to worsen and pt with persistent metabolic acidosis Will plan for acute HD today for management of uremia and acidosis Consent obtained and in the chart will paln 2 hour HD with 0 UF continue lazcano for monitoring of urine output trend CBC, no acute indication for transfusion at this time Tomás Al DO
--- NOTE | 2017-10-07 12:09 | PN ---
Teaching Attending Note Name of Resident: Curt Caputo ATTENDING PHYSICIAN STATEMENT I saw and evaluated the patient. I reviewed the resident's note and discussed the case with the resident. I agree with the resident's findings and plan as documented. SUBJECTIVE: Pt seen and examined in the ICU. Remains intubated, awake off sedation. Extremities flaccid, minimal movements on command. OBJECTIVE: Last Vital Signs Temp Pulse Resp BP Pulse Ox 99.3 F 91 H 35 H 106/51 97 10/07/17 10:00 10/07/17 10:00 10/07/17 11:30 10/07/17 10:00 10/07/17 11:30 Intake & Output 10/04/17 10/05/17 10/06/17 10/07/17 23:59 23:59 23:59 23:59 Intake Total 1063.5 3235.6 881.6 808.4 Output Total 494 917 7596 300 Balance 463.5 2635.6 -818.4 508.4 Weight 56.472 kg 56.427 kg 57.153 kg Gen: intubated, awake Heart: RRR Lung: scattered rhonchi Abd: soft, nontender Ext: + edema CBC, BMP 10/07/17 06:05 10/07/17 06:05 Active Medications Aspirin (Asa -) 81 mg PO DAILY [facility] 234 BEDS AT [facility] Last Admin: 10/07/17 11:01 Dose: 81 mg Chlorhexidine Gluconate (Hibiclens For Decolonization -) 1 applic TP HS [facility]S [facility]CLUDE 234 BEDS AT [facility] Last Admin: 10/06/17 21:18 Dose: 1 applic Diltiazem HCl (Cardizem -) 60 mg PO Q6HPO COUNTS INCLUDE 234 BEDS AT [facility] Last Admin: 10/07/17 06:27 Dose: 60 mg Heparin Sodium (Porcine) (Heparin -) 5,000 unit SQ BID [facility] 234 BEDS AT [facility] Last Admin: 10/07/17 10:57 Dose: 5,000 unit Azithromycin 500 mg/ Dextrose 250 mls @ 250 mls/hr IVPB DAILY [facility]CLUDE 234 BEDS AT [facility] Last Admin: 10/07/17 10:58 Dose: 250 mls/hr Piperacillin Sod/Tazobactam (Sod 2.25 gm/ Dextrose) 50 mls @ 100 mls/hr IVPB Q8H-IV COUNTS INCLUDE 234 BEDS AT THE [facility] Last Admin: 10/07/17 10:58 Dose: 100 mls/hr Propofol (Diprivan -) 1,000,000 mcg in 100 mls @ 3.388 mls/hr IVPB TITR SELVIN; 10 MCG/KG/MIN PRN Reason: Protocol Last Titration: 10/07/17 10:56 Dose: 0 mcg/kg/min, 0 mls/hr Dextrose (D10w -) 1,000 mls @ 42 mls/hr IV ASDIR SELVIN Sodium Chloride (Normal Saline -) 250 mls @ 3,000 mls/hr IV PRN PRN PRN Reason: Hypotension during Dialysis Stop: 10/08/17 12:01 Insulin Aspart (Novolog Vial Sliding Scale -) 1 vial SQ ACHS SELVIN PRN Reason: Protocol Insulin Detemir (Levemir Vial) 12 units SQ HS SELVIN Metoprolol Tartrate (Lopressor Injection -) 5 mg IVPUSH Q4H PRN PRN Reason: TACHYCARDIA Last Admin: 10/05/17 17:49 Dose: 5 mg Midazolam HCl (Versed -) 2 mg IVPUSH Q2H PRN PRN Reason: AGITATION Last Admin: 10/04/17 01:14 Dose: 2 mg Mupirocin (Bactroban Ointment (For Decolonization) -) 1 applic NS BID [facility]S INCLUDE 234 BEDS AT THE [facility] Stop: 10/08/17 09:59 Last Admin: 10/07/17 10:57 Dose: 1 applic Pantoprazole Sodium (Protonix Iv) 40 mg IVPUSH DAILY [facility]S INCLUDE 234 BEDS AT THE [facility] Last Admin: 10/07/17 10:57 Dose: 40 mg ASSESSMENT AND PLAN: Acute Hypoxic Respiratory Failure Pneumonia Septic Shock Acute on Chronic Renal Failure Lactic Acidosis Diabetic Ketoacidosis improving Paroxysmal Atrial Fibrillation with RVR HTN DM COPD r/o Critical Illness Myopathy/Polyneuropathy - continue antibiotics - will place HD catheter and HD per renal - monitor urine output, creatinine - monitor I/Os - glucose control - rate control - anticoagulation per cardiology - taper FiO2 to keep SpO2 >90% - monitoring off pressors - consult physiatry for EMG - daily sedation vacations and spontaneous breathing trials as tolerated - enteral feeds - DVT/GI prophylaxis critical care time spent in reviewing chart, evaluating patient and formulating plan 35 min
[2017-10-07] MEDS ORDERED: MIDAZOLAM HCL 2 MG/2 ML SINGLE DOSE VIAL IVPUSH ONE (14:00)
--- NOTE | 2017-10-07 14:43 | PROC ---
Central Line Insertion Indication: Other (Dialysis ) Risks and Benefits Explained: Yes Consent on Chart: Yes Central Line: Dialysis Cath, Tri Lumen Anesthesia: 1% Lidocaine Sterile Technique: Yes Ultrasound Guided Assistance: Yes Position: Right Internal Jugular Post Insertion: Yes: Bilateral Breath Sounds, Bilateral Chest Expansion, Chest X-Ray Ordered Sterile Dressing Applied: Yes
--- NOTE | 2017-10-07 15:47 | PN ---
Physical Exam: SUBJECTIVE: Patient seen and examined in ICU. Tmax 100.1, vital signs remained stable. OBJECTIVE: Vital Signs Period Temp Pulse Resp BP Sys/Sy Pulse Ox Last 24 Hr 99.2 F-100.1 F 86-106 14-35 90-123/40-73 95-97 GENERAL: The patient is awake, alert, and fully oriented, in no acute distress. HEAD: Normal with no signs of trauma. LUNGS: Breath sounds equal, coarse breath sounds, no wheezes, no crackles, no accessory muscle use. HEART: Regular rate and rhythm, S1, S2 without murmur, rub or gallop. EXTREMITIES: 2+ pulses, warm, well-perfused, no edema. NEUROLOGICAL: Cranial nerves II through XII grossly intact. Follows commands, squeezes hand SKIN: Warm, dry, normal turgor, no rashes or lesions noted Laboratory Results - last 24 hr 10/06/17 10/06/17 10/06/17 05:50 16:57 21:15 WBC RBC Hgb Hct MCV MCH MCHC RDW Plt Count MPV Neutrophils % Neutrophils % (Manual) Band Neutrophils % Lymphocytes % Lymphocytes % (Manual) Monocytes % (Manual) Eosinophils % (Manual) Basophils % (Manual) Myelocytes % (Man) Promyelocytes % (Man) Blast Cells % (Manual) Nucleated RBC % Metamyelocytes Hypochromia Platelet Estimate Platelet Comment Poikilocytosis Ovalocytes [place] Cells Anticoagulation Therapy Puncture Site ABG pH ABG pCO2 at Pt Temp ABG pO2 at Pt Temp ABG HCO3 ABG O2 Sat (Measured) ABG O2 Content ABG Base Excess Ra Test O2 Delivery Device Oxygen Flow Rate Vent Mode Vent Rate Mechanical Rate PEEP Pressure Support Vent Sodium Potassium Chloride Carbon Dioxide Anion Gap BUN Creatinine Creat Clearance w eGFR POC Glucometer [phone] Random Glucose Calcium Phosphorus Magnesium Iron 22 L Total Bilirubin AST ALT Alkaline Phosphatase Total Protein Albumin 10/07/17 10/07/17 10/07/17 06:05 06:05 06:14 WBC 23.4 H RBC 3.25 L Hgb 9.8 L D Hct 29.8 L D MCV 91.6 MCH 30.2 MCHC 33.0 RDW 16.5 H Plt Count 263 MPV 9.6 Neutrophils % No Result Required. Neutrophils % (Manual) 89.8 H Band Neutrophils % 1.0 Lymphocytes % No Result Required. Lymphocytes % (Manual) 5.1 L D Monocytes % (Manual) 2 L D Eosinophils % (Manual) 1.0 D Basophils % (Manual) 0.0 Myelocytes % (Man) 1 D Promyelocytes % (Man) 0 Blast Cells % (Manual) 0 Nucleated RBC % 0 Metamyelocytes 0 Hypochromia 1+ Platelet Estimate Normal Platelet Comment Present Poikilocytosis 1+ Ovalocytes 1+ [place] Cells 2+ Anticoagulation Therapy Puncture Site ABG pH ABG pCO2 at Pt Temp ABG pO2 at Pt Temp ABG HCO3 ABG O2 Sat (Measured) ABG O2 Content ABG Base Excess Ra Test O2 Delivery Device Oxygen Flow Rate Vent Mode Vent Rate Mechanical Rate PEEP Pressure Support Vent Sodium 137 Potassium 5.0 Chloride 106 Carbon Dioxide 15 L Anion Gap 16 BUN 112 H* Creatinine 4.0 H Creat Clearance w eGFR 14.59 POC Glucometer [phone] Random Glucose 255 H Calcium 7.7 L Phosphorus 5.2 H Magnesium 2.1 Iron Total Bilirubin 0.4 D AST 41 H D ALT 21 D Alkaline Phosphatase 156 H D Total Protein 4.9 L D Albumin 1.2 L 10/07/17 10/07/17 06:30 13:42 WBC RBC Hgb Hct MCV MCH MCHC RDW Plt Count MPV Neutrophils % Neutrophils % (Manual) Band Neutrophils % Lymphocytes % Lymphocytes % (Manual) Monocytes % (Manual) Eosinophils % (Manual) Basophils % (Manual) Myelocytes % (Man) Promyelocytes % (Man) Blast Cells % (Manual) Nucleated RBC % Metamyelocytes Hypochromia Platelet Estimate Platelet Comment Poikilocytosis Ovalocytes [place] Cells Anticoagulation Therapy No Result Required. Puncture Site Right brachial ABG pH 7.29 L ABG pCO2 at Pt Temp 28.4 L ABG pO2 at Pt Temp 67.0 L D ABG HCO3 13.4 L* ABG O2 Sat (Measured) 91.5 ABG O2 Content 12.3 L ABG Base Excess -11.7 L* Ra Test No Result Required. O2 Delivery Device Vent Oxygen Flow Rate Yes Vent Mode No Result Required. Vent Rate No Result Required. Mechanical Rate No Result Required. PEEP 15.0 Pressure Support Vent 450 Sodium Potassium Chloride Carbon Dioxide Anion Gap BUN Creatinine Creat Clearance w eGFR POC Glucometer [phone] Random Glucose Calcium Phosphorus Magnesium Iron Total Bilirubin AST ALT Alkaline Phosphatase Total Protein Albumin Active Medications Generic Name Dose Route Start Last Admin Trade Name Freq PRN Reason Stop Dose Admin Aspirin 81 mg 10/07/17 10:30 10/07/17 11:01 Asa - PO 81 mg DAILY SELVIN Administration Chlorhexidine Gluconate 1 applic 10/03/17 22:00 10/06/17 21:18 Hibiclens For Decolonization - TP 1 applic HS SELVIN Administration Diltiazem HCl 60 mg 10/05/17 18:00 10/07/17 13:28 Cardizem - PO 60 mg Q6HPO SELVIN Administration Heparin Sodium (Porcine) 5,000 unit 10/03/17 10:00 10/07/17 10:57 Heparin - SQ 5,000 unit BID SELVIN Administration Azithromycin 500 mg/ Dextrose 250 mls @ 250 mls/hr 10/04/17 10:00 10/07/17 10 :58 IVPB 250 mls/hr DAILY SELVIN Administration Piperacillin Sod/Tazobactam 50 mls @ 100 mls/hr 10/03/17 18:00 10/07/17 10:58 Sod 2.25 gm/ Dextrose IVPB 100 mls/hr Q8H-IV SELVIN Administration Propofol 1,000,000 mcg in 100 mls @ 3.388 mls/hr 10/04/17 09:15 10/07/17 13: 28 Diprivan - IVPB 15 mcg/kg/min TITR SELVIN 5.082 mls/hr Protocol Titration 10 MCG/KG/MIN Dextrose 1,000 mls @ 42 mls/hr 10/06/17 18:45 D10w - IV ASDIR SELVIN Sodium Chloride 250 mls @ 3,000 mls/hr 10/07/17 12:01 Normal Saline - IV 10/08/17 12:01 PRN PRN Hypotension during Dialysis Insulin Aspart 1 vial 10/07/17 11:57 10/07/17 13:42 Novolog Vial Sliding Scale - SQ 12 units ACHS SELVIN Administration Protocol Insulin Detemir 12 units 10/07/17 22:00 Levemir Vial SQ HS SELVIN Metoprolol Tartrate 5 mg 10/03/17 19:00 10/05/17 17:49 Lopressor Injection - IVPUSH 5 mg Q4H PRN Administration TACHYCARDIA Midazolam HCl 2 mg 10/03/17 14:35 10/04/17 01:14 Versed - IVPUSH 2 mg Q2H PRN Administration AGITATION Mupirocin 1 applic 10/03/17 10:00 10/07/17 10:57 Bactroban Ointment (For Decolonization) - NS 10/08/17 09:59 1 applic BID SELVIN Administration Pantoprazole Sodium 40 mg 10/05/17 14:45 10/07/17 10:57 Protonix Iv IVPUSH 40 mg DAILY SELVIN Administration ASSESSMENT/PLAN: Patient is a 76 year old male with who presented for acute respiratory failure and was found to have pneumonia and DKA. Patient is admitted to ICU for further monitoring and management. Pulmonology #Acute Hypoxic Respiratory Failure -Likely secondary to Pneumonia -Continue Zosyn 2.25mg IV Q8H AND Azithromycin 500mg IV -Patient off Versed -Continue Daily sedation vacations and spontaneous breathing trials. Tolerated over 1.5 hours today on CPAP with pressure support of 20, then 15. Tachypneic to 30, placed back on sedation for trialysis placement #COPD -Continue Nebulizers -Continue Ventilation -Continue IV Abx Infectious Disease #Septic Shock secondary to Pneumonia -Continue IV abx Azithromycin and Zosyn -Blood cultures negative -Sputum cultures staph, hector sensitive -Legionella negative -HOB -Aspiration precaution Nephrology #Acute on Chronic Renal Failure -Likely ATN secondary from Septic hock -Urine output still slow, 200 this morning. -Renal function worsening, Cr now 4. -Emergent Dialysis today, trialysis catheter placed #AG and Non-AG Metabolic acidosis -Continues to have metabolic acidosis pH 7.29 today, will dialyze -Continue daily ABG's Cardiovascular #Paroxysmal Atrial Fibrillation -Continue Cardizem 60mg Q6H -Metoprolol 5mg IVP Q4H PRN for Tachycardia #HTN -Patient not hypertensive -No Lasix today -Will continue to monitor BP #CAD/PVD -Continue Statin when patient is extubated Endocrine #DKA-Resolved -Continue ISS -Continue BGM -Continue Levemir 6 units HS Neurology #Rule out Critical Illness Myopathy/Polyneuropathy -Patient improved today with following commands -Will consult PMR. -Will order EMG if neurological function does not improve F/E/N -On no fluids -Electrolytes wnl -NPO- On tube feeds- Glucerna Prophylaxis -High risk. Heparin 5000 units SQ for DVT -Protonix 40mg IVP daily Disposition -Full code -Continue sedation vacation and spontaneous breathing trials Visit type - Emergency Visit Emergency Visit: Yes ED Registration Date: 10/03/17 Care time: The patient presented to the Emergency Department on the above date and was hospitalized for further evaluation of their emergent condition. - New Patient This patient is new to me today: No - Critical Care Critical Care patient: Yes Total Critical Care Time (in minutes): 75 Critical Care Statement: The care of this patient involved high complexity decision making to prevent further life threatening deterioration of the patient 's condition and/or to evaluate & treat vital organ system(s) failure or risk of failure.
--- NOTE | 2017-10-07 15:55 | PN ---
Progress Note, Physician History of Present Illness: patient with placement of catheter calammy still intubated/sedated - Current Medication List Current Medications: Active Medications Aspirin (Asa -) 81 mg PO DAILY [facility] Last Admin: 10/07/17 11:01 Dose: 81 mg Chlorhexidine Gluconate (Hibiclens For Decolonization -) 1 applic TP HS [facility] Last Admin: 10/06/17 21:18 Dose: 1 applic Diltiazem HCl (Cardizem -) 60 mg PO Q6HPO [facility] Last Admin: 10/07/17 13:28 Dose: 60 mg Heparin Sodium (Porcine) (Heparin -) 5,000 unit SQ BID SELVIN Last Admin: 10/07/17 10:57 Dose: 5,000 unit Azithromycin 500 mg/ Dextrose 250 mls @ 250 mls/hr IVPB DAILY [facility] Last Admin: 10/07/17 10:58 Dose: 250 mls/hr Piperacillin Sod/Tazobactam (Sod 2.25 gm/ Dextrose) 50 mls @ 100 mls/hr IVPB Q8H-IV SELVIN Last Admin: 10/07/17 10:58 Dose: 100 mls/hr Propofol (Diprivan -) 1,000,000 mcg in 100 mls @ 3.388 mls/hr IVPB TITR SELVIN; 10 MCG/KG/MIN PRN Reason: Protocol Last Titration: 10/07/17 13:28 Dose: 15 mcg/kg/min, 5.082 mls/hr Dextrose (D10w -) 1,000 mls @ 42 mls/hr IV ASDIR SELVIN Sodium Chloride (Normal Saline -) 250 mls @ 3,000 mls/hr IV PRN PRN PRN Reason: Hypotension during Dialysis Stop: 10/08/17 12:01 Insulin Aspart (Novolog Vial Sliding Scale -) 1 vial SQ ACHS [facility] PRN Reason: Protocol Last Admin: 10/07/17 13:42 Dose: 12 units Insulin Detemir (Levemir Vial) 12 units SQ HS [facility] Metoprolol Tartrate (Lopressor Injection -) 5 mg IVPUSH Q4H PRN PRN Reason: TACHYCARDIA Last Admin: 10/05/17 17:49 Dose: 5 mg Midazolam HCl (Versed -) 2 mg IVPUSH Q2H PRN PRN Reason: AGITATION Last Admin: 10/04/17 01:14 Dose: 2 mg Mupirocin (Bactroban Ointment (For Decolonization) -) 1 applic NS BID [facility] Stop: 10/08/17 09:59 Last Admin: 10/07/17 10:57 Dose: 1 applic Pantoprazole Sodium (Protonix Iv) 40 mg IVPUSH DAILY [facility] Last Admin: 10/07/17 10:57 Dose: 40 mg - Objective Vital Signs: Vital Signs Temperature 99.3 F 10/07/17 10:00 Pulse Rate 90 10/07/17 12:00 Respiratory Rate 25 H 10/07/17 14:30 Blood Pressure 112/50 10/07/17 12:00 O2 Sat by Pulse Oximetry (%) 97 10/07/17 11:30 Constitutional: Yes: Other Cardiovascular: Yes: Regular Rate and Rhythm, Tachycardia Respiratory: Yes: Intubated, Mechanically Ventilated Gastrointestinal: Yes: Normal Bowel Sounds, Soft Extremities: Yes: WNL Labs: CBC, BMP 10/07/17 06:05 10/07/17 06:05 INR, PTT INR 1.09 (0.82-1.09) 10/06/17 14:10 - ....Imaging Chest X-ray: Report Reviewed, Image Reviewed Assessment/Plan 76 year old male with a significant past medical history of COPD, GI bleed, diverticulosis, HLD, CVA, intussusception, umbilical hernia, DM, HTN, sinus cancer with excision and polypectomy who is now intubated and sedated and on pressors Acute Hypoxic Respiratory Failure Pneumonia Septic Shock Acute on Chronic Renal Failure Lactic Acidosis Diabetic Ketoacidosis improving HTN DM COPD cx result noted plan continue abx continue close monitoring wean as tolerated rest continue current mgmt patient improving nutrition cc time 40 min
--- NOTE | 2017-10-07 18:43 | PN ---
Progress Note (short form) - Note Progress Note: CC: afib S: remains intubated/sedated. initiated HD this evening and subsequently went into RVR with HR's in the 140's. sbp's dropped into 70's. Patient was restarted on neosynephrine and given one time dose of 150 mg of amiodarone --> conversion to normal rhythm. started on asa today. Current Medications Aspirin (Asa -) 81 mg PO DAILY [facility] Last Admin: 10/07/17 11:01 Dose: 81 mg Chlorhexidine Gluconate (Hibiclens For Decolonization -) 1 applic TP HS [facility] Last Admin: 10/06/17 21:18 Dose: 1 applic Diltiazem HCl (Cardizem -) 60 mg PO Q6HPO [facility] Last Admin: 10/07/17 13:28 Dose: 60 mg Heparin Sodium (Porcine) (Heparin -) 5,000 unit SQ BID SELVIN Last Admin: 10/07/17 10:57 Dose: 5,000 unit Azithromycin 500 mg/ Dextrose 250 mls @ 250 mls/hr IVPB DAILY [facility] Last Admin: 10/07/17 10:58 Dose: 250 mls/hr Piperacillin Sod/Tazobactam (Sod 2.25 gm/ Dextrose) 50 mls @ 100 mls/hr IVPB Q8H-IV SELVIN Last Admin: 10/07/17 10:58 Dose: 100 mls/hr Propofol (Diprivan -) 1,000,000 mcg in 100 mls @ 3.388 mls/hr IVPB TITR SELVIN; 10 MCG/KG/MIN PRN Reason: Protocol Last Admin: 10/07/17 14:00 Dose: 15 mcg/kg/min, 5.082 mls/hr Dextrose (D10w -) 1,000 mls @ 42 mls/hr IV ASDIR SELVIN Sodium Chloride (Normal Saline -) 250 mls @ 3,000 mls/hr IV PRN PRN PRN Reason: Hypotension during Dialysis Stop: 10/08/17 12:01 Insulin Aspart (Novolog Vial Sliding Scale -) 1 vial SQ ACHS SELVIN PRN Reason: Protocol Last Admin: 10/07/17 16:13 Dose: 8 units Insulin Detemir (Levemir Vial) 12 units SQ HS SELVIN Metoprolol Tartrate (Lopressor Injection -) 5 mg IVPUSH Q4H PRN PRN Reason: TACHYCARDIA Last Admin: 10/05/17 17:49 Dose: 5 mg Midazolam HCl (Versed -) 2 mg IVPUSH Q2H PRN PRN Reason: AGITATION Last Admin: 10/04/17 01:14 Dose: 2 mg Mupirocin (Bactroban Ointment (For Decolonization) -) 1 applic NS BID [facility] Stop: 10/08/17 09:59 Last Admin: 10/07/17 10:57 Dose: 1 applic Pantoprazole Sodium (Protonix Iv) 40 mg IVPUSH DAILY [facility] Last Admin: 10/07/17 10:57 Dose: 40 mg Vital Signs - 24 hr 10/06/17 10/06/17 10/06/17 19:14 20:00 21:00 Temperature Pulse Rate 90 Respiratory 20 26 H 27 H Rate Blood Pressure 90/63 O2 Sat by Pulse 95 Oximetry (%) 10/06/17 10/06/17 10/07/17 22:00 23:00 00:00 Temperature 99.8 F H Pulse Rate 106 H 87 Respiratory 30 H 27 H 25 H Rate Blood Pressure 110/49 122/48 O2 Sat by Pulse 95 Oximetry (%) 10/07/17 10/07/17 10/07/17 01:03 02:00 04:00 Temperature 100.1 F H Pulse Rate 90 86 Respiratory 25 H 27 H 21 Rate Blood Pressure 112/40 106/66 O2 Sat by Pulse Oximetry (%) 10/07/17 10/07/17 10/07/17 04:05 06:00 06:50 Temperature 99.8 F H Pulse Rate 95 H Respiratory 21 23 24 Rate Blood Pressure 123/73 O2 Sat by Pulse Oximetry (%) 10/07/17 10/07/17 10/07/17 08:00 08:29 09:00 Temperature Pulse Rate 98 H 96 H Respiratory 14 29 H 16 Rate Blood Pressure 100/52 O2 Sat by Pulse 97 95 Oximetry (%) 10/07/17 10/07/17 10/07/17 10:00 11:30 12:00 Temperature 99.3 F Pulse Rate 91 H 90 Respiratory 28 H 34 H 14 Rate Blood Pressure 106/51 112/50 O2 Sat by Pulse 97 Oximetry (%) 10/07/17 10/07/17 10/07/17 14:00 14:30 15:45 Temperature 99 F Pulse Rate 99 H 95 H Respiratory 14 25 H 16 Rate Blood Pressure 103/51 108/64 O2 Sat by Pulse Oximetry (%) 10/07/17 10/07/17 10/07/17 15:50 16:00 16:20 Temperature Pulse Rate 97 H 99 H 97 H Respiratory 16 28 H 16 Rate Blood Pressure 104/53 104/53 104/53 O2 Sat by Pulse Oximetry (%) 10/07/17 10/07/17 10/07/17 16:50 17:10 17:20 Temperature Pulse Rate 106 H 140 H Respiratory 16 27 H 16 Rate Blood Pressure 111/62 96/55 O2 Sat by Pulse Oximetry (%) 10/07/17 10/07/17 10/07/17 17:30 17:38 18:00 Temperature 98.6 F Pulse Rate 140 H 139 H Respiratory 16 20 Rate Blood Pressure 90/51 90/51 O2 Sat by Pulse 95 Oximetry (%) Intake & Output 10/05/17 10/06/17 10/07/17 10/08/17 07:59 07:59 07:59 07:59 Intake Total 2396 1721.2 808.4 360 Output Total 550 1300 1000 200 Balance 1846 421.2 -191.6 160 Weight 124 lb 6.4 oz 126 lb NAD, cachectic, intubated, sedated. opens eyes to stimulation. JVD flat, neck supple diffuse rhonchi, nl effort rrr nl s1, s2 2/6 sys murmur at sternal border + bs soft nt nd. no le e/c/c diminished dp/pt no carotid bruits no jaundice, diaphoresis CBC, BMP 10/07/17 06:05 10/07/17 06:05 EKG 10/03: sinus tach with atrial run. non-sp t wave ab. no ischemic changes. tele: currently SR with pac's. cxr 10/05: RLL consolidation and pleural fluid. cxr 10/06: no sig change 10/05 renal u/s reviewed. small amount of ascites. see emr for detailed report. echo 06/2017: mod lvh. nl lv fn. nl rv size/fn. 1+ lae. mod-sev mac with mod ms. 1+ mr. nl rvsp. 1+ ao dilation A/P 76 yo with pmhx of htn, hl, pad, afib (not on AC due to GIB), cva (no residual deficits), copd, dm, mgus, esthesioneuroblastoma treated with radiation therapy , chronic anemia s/p recent GIB admitted with dka, sepsis, resp failure. Hospital course now complicated by episode of afib with rvr afib - not previously a candidate for AC b/c of prior hx of GIB. remains anemic. - s/p IV amio. started po dilt 10/05. now back in sr. hr controlled. - lyte repletion prn. - 10/07: initiated HD this evening and subsequently went into RVR with HR's in the 140's. sbp's dropped into 70's. Patient was restarted on neosynephrine and given one time dose of 150 mg of amiodarone --> conversion to normal rhythm. Will uptitrate po dilt to 90 q6h and wean off pressors. htn - anti-htn regimen had been held b/c of hypotension/sepsis. Diltiazem started for rate control. - 10/07: see above. cva/pad - con't statin. per pmd, previously not a candidate for asa due to recent gib and anemia. Discussed again with pmd today. started trial of ASA 10/07. will monitor hgb. iron studies pending. mild asc ao dilation - can consider switching to beta car once resp issues resolve. dka/sepsis/resp failure - ongoing mgm't per pmd/pulm/id SHANTA - renal following, no sig improvement --> initiated HD 10/07. anemia - as above. > 35 min cct
[2017-10-07] MEDS ORDERED: PHENYLEPHRINE HCL 10 MG/1 ML SINGLE DOSE VIAL ONE (18:56)
[2017-10-07] MEDS ORDERED: AMIODARONE HCL 150 MG/3 ML VIAL ONE (18:57)
[2017-10-07] MEDS: AMIODARONE HCL 150 MG/3 ML VIAL IVPUSH ONE ×2 (19:03→19:35)
[2017-10-07] MEDS: PHENYLEPHRINE HCL 20,000 MCG in SODIUM CHLORIDE 248 ML IVPB SCH (19:03)
[2017-10-07] MEDS: DEXTROSE 10%-WATER - 1,000 ML IV SCH (19:34)
[2017-10-07] MEDS: dilTIAZem HCL 30 MG TABLET (FP) PO SCH (19:38)
[2017-10-07] MEDS: CHLORHEXIDINE GLUCONATE 4% CLEANSER FOR DECOLONIZATION TP SCH (21:05)
[2017-10-07] MEDS: INSULIN (LEVEMIR) 100 UNITS/ML UNITS SQ SCH (21:48)
[2017-10-08] MEDS: dilTIAZem HCL 30 MG TABLET (FP) PO SCH ×3 (00:11→14:27)
[2017-10-08] MEDS ORDERED: DEXTROSE 5%-WATER - 50 ML IVPB ONE ×3 (01:10→20:19)
[2017-10-08] MEDS ORDERED: PIPERACILLIN/TAZOBACTAM 2.25 GM VIAL IVPB ONE ×3 (01:10→20:19)
[2017-10-08] MEDS: PIPERACILLIN/TAZOB 2.25 GM 2.25 GM in DEXTROSE 5%-WATER - 50 ML IVPB SCH ×3 (01:18→20:00)
[2017-10-08] MEDS: INSULIN SLIDING SCALE (NOVOLOG) 1 VIAL SQ SCH ×3 (06:01→16:27)
[2017-10-08 06:37] LABS: ALBUMIN 1.1 g/dl (3.4-5.0); ALK PHOS 105 U/L (45-117); ANION GAP 11 (8-16); BILIRUBIN,TOTAL 0.3 mg/dL (0.2-1.0); BLOOD UREA NITROGEN 77 mg/dL (7-18); CALCIUM 7.5 mg/dL (8.5-10.1); CHLORIDE 107 mmol/L (98-107); CO2 25 mmol/L (21-32); CREATININE 3.2 mg/dL (0.7-1.3); GLUCOSE,RANDOM 136 mg/dL (74-106); MAGNESIUM 2.1 mg/dL (1.8-2.4); PHOSPHOROUS 4.4 mg/dL (2.5-4.9); POTASSIUM 4.7 mmol/L (3.5-5.1); SGOT/AST 37 U/L (15-37); SGPT/ALT 20 U/L (12-78); SODIUM 143 mmol/L (136-145); TOT PROT 4.3 g/dl (6.4-8.2)
[2017-10-08 06:47] LABS: BASO % 0.1 % (0-2.0); EOS % 0.4 % (0-4.5); HEMATOCRIT 25.6 % (35.4-49); HEMOGLOBIN 8.5 GM/dL (11.7-16.9); LYMPH % 2.2 % (8-40); MCH 29.8 pg (25.7-33.7); MEAN CELL VOLUME 90.1 fl (80-96); MEAN PLT VOLUME 9.3 fl (7.5-11.1); NEUT % 90.3 % (42.8-82.8); PLATELET COUNT 279 K/MM3 (134-434); RBC 2.84 M/mm3 (4.00-5.60); RDW 16.9 % (11.9-15.9)
[2017-10-08 07:12] LABS: ARTERIAL BLD GAS O2 SATURATION 95.7 % (90-98.9); ARTERIAL BLOOD GAS BASE EXCESS -1.5 meq/l (-2-2); ARTERIAL BLOOD GAS PCO2 34.3 mmHg (35-45); ARTERIAL BLOOD GAS PO2 77.9 mmHg (70-100); ARTERIAL BLOOD GAS pH 7.43 (7.35-7.45)
[2017-10-08 07:16] LABS: ALLENS TEST POSITIVE
[2017-10-08] MEDS: HEPARIN NA (PORCINE) 5,000 UNITS/ML 1ML VIAL SQ SCH (09:45)
[2017-10-08] MEDS: PANTOPRAZOLE SODIUM 40 MG VIAL IVPUSH SCH (09:46)
[2017-10-08] MEDS: ASPIRIN 81 MG CHEWABLE TABLETS PO SCH (09:46)
[2017-10-08] MEDS ORDERED: PT OWN MED DRAWER 7, Y5N ONE ×2 (09:57→16:38)
--- NOTE | 2017-10-08 10:02 | PN ---
Progress Note (short form) - Note Progress Note: Patient seen and examined today. Still intubated but much more alert, responding more appropriately to commands. Completed a short period of dialysis tests today with improvement in blood gas, acidosis, BUN and creatinine. White count also markedly improved today. Continues on antibiotics. Also on pressors at the current time but not sedated. chest x-ray continues to show some changes more on the right side possibly atelectasis versus infiltrate versus effusion. On exam: Vital Signs Temp 98.8 F 10/08/17 10:00 Pulse 92 H 10/08/17 10:00 Resp 20 10/08/17 10:00 BP 117/45 10/08/17 10:00 Pulse Ox 93 L 10/07/17 21:37 Intake & Output 10/07/17 10/07/17 10/08/17 11:59 23:59 11:59 Intake Total 808.4 360 1261 Output Total 300 350 200 Balance 508.4 10 1061 Weight 135 lb 6.4 oz Intake: IV 38.4 60 491 DIPRIVAN - 1,000,000 mcg 38.4 60 41 In 100 ml @ 10 MCG/KG/MIN 3.388 mls/hr IVPB TITR SELVIN Rx#:[id number] Carlo-Synephrine - 20,000 450 Mcg In Normal Saline - 248 ml @ 100 MCG/MIN 75 mls/hr IVPB ASDIR SELVIN Rx# :[id number] IVPB 50 300 50 Tube Feeding 480 480 Tube Irrigant 240 240 Output: Urine 300 350 200 [place] 300 350 200 Other: Voiding Method Indwelling Catheter Indwelling Catheter Indwelling Catheter Bowel Movement No No Yes: large amount Weight Measurement [facility] Pupils equal Chest decreased breath sounds right side but no rhonchi or wheezes heard today. Heart occasional irregular beats. Abdomen flat and soft with normal bowel sounds. Extremities some cyanosis several toes left foot. No edema. He can bend toes when requested but cannot lift his legs off the bed Lab: Abnormal Lab Results 10/08/17 10/08/17 10/08/17 06:00 06:00 06:50 WBC 16.0 H D RBC 2.84 L Hgb 8.5 L D Hct 25.6 L RDW 16.9 H Neutrophils % 90.3 H Lymphocytes % 2.2 L D ABG pCO2 at Pt Temp 34.3 L D ABG O2 Content 10.6 L BUN 77 H D Creatinine 3.2 H Random Glucose 136 H D Calcium 7.5 L Total Protein 4.3 L Albumin 1.1 L impression: Acute sepsis. Acute on chronic renal failure. Uncontrolled diabetes. 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 Pneumonia versus atelectasis right lower lung. Acute Respiratory failure. history of nasopharyngeal cancer treated with radiation Chronic anemia SVT, currently stable. Plan: Hopefully Vent removal followup lab Consultants to continue to monitor. BGM's Continue dialysis Patient not a DNR.
[2017-10-08] MEDS: AZITHROMYCIN IVPB 500 MG in DEXTROSE 5%-WATER - 250 ML IVPB SCH (10:05)
--- NOTE | 2017-10-08 13:11 | PN ---
Teaching Attending Note Name of Resident: Curt Caputo ATTENDING PHYSICIAN STATEMENT I saw and evaluated the patient. I reviewed the resident's note and discussed the case with the resident. I agree with the resident's findings and plan as documented. SUBJECTIVE: Patient seen and examined in the ICU. Remains intubated, awake off sedation. Current,y on Phenylephrine for hemodynamic support. AC Mode of vent, 40% FiO2. OBJECTIVE: Intake & Output 10/05/17 10/06/17 10/07/17 10/08/17 23:59 23:59 23:59 23:59 Intake Total 3235.6 881.6 1168.4 1261 Output Total 600 1700 650 200 Balance 2635.6 -818.4 518.4 1061 Weight 124 lb 6.4 oz 126 lb 135 lb 6.4 oz Last Vital Signs Temp Pulse Resp BP Pulse Ox 98.8 F 92 H 20 102/43 93 L 10/08/17 10:00 10/08/17 12:00 10/08/17 12:00 10/08/17 12:00 10/07/17 21:37 Active Medications Aspirin (Asa -) 81 mg PO DAILY [facility] Last Admin: 10/08/17 09:46 Dose: 81 mg Chlorhexidine Gluconate (Hibiclens For Decolonization -) 1 applic TP HS [facility] Last Admin: 10/07/17 21:05 Dose: 1 applic Diltiazem HCl (Cardizem -) 90 mg PO Q6HPO [facility] Last Admin: 10/08/17 06:00 Dose: 90 mg Heparin Sodium (Porcine) (Heparin -) 5,000 unit SQ BID [facility] Last Admin: 10/08/17 09:45 Dose: 5,000 unit Azithromycin 500 mg/ Dextrose 250 mls @ 250 mls/hr IVPB DAILY [facility] Last Admin: 10/08/17 10:05 Dose: 250 mls/hr Piperacillin Sod/Tazobactam (Sod 2.25 gm/ Dextrose) 50 mls @ 100 mls/hr IVPB Q8H-IV [facility] Last Admin: 10/08/17 09:45 Dose: 100 mls/hr Propofol (Diprivan -) 1,000,000 mcg in 100 mls @ 3.388 mls/hr IVPB TITR SELVIN; 10 MCG/KG/MIN PRN Reason: Protocol Last Titration: 10/07/17 18:53 Dose: 10 mcg/kg/min, 3.388 mls/hr Dextrose (D10w -) 1,000 mls @ 42 mls/hr IV ASDIR SELVIN Last Admin: 10/07/17 19:34 Dose: Not Given Phenylephrine HCl 20,000 mcg/ (Sodium Chloride) 250 mls @ 75 mls/hr IVPB ASDIR SELVIN; 100 MCG/MIN PRN Reason: Protocol Last Titration: 10/08/17 04:00 Dose: 20 mcg/min, 15 mls/hr Sodium Chloride (Normal Saline -) 250 mls @ 3,000 mls/hr IV PRN PRN PRN Reason: Hypotension during Dialysis Stop: 10/09/17 09:44 Insulin Aspart (Novolog Vial Sliding Scale -) 1 vial SQ ACHS SEL[facility]IN PRN Reason: Protocol Last Admin: 10/08/17 06:01 Dose: 6 units Insulin Detemir (Levemir Vial) 12 units SQ HS [facility] Last Admin: 10/07/17 21:48 Dose: 12 units Metoprolol Tartrate (Lopressor Injection -) 5 mg IVPUSH Q4H PRN PRN Reason: TACHYCARDIA Last Admin: 10/05/17 17:49 Dose: 5 mg Midazolam HCl (Versed -) 2 mg IVPUSH Q2H PRN PRN Reason: AGITATION Last Admin: 10/04/17 01:14 Dose: 2 mg Pantoprazole Sodium (Protonix Iv) 40 mg IVPUSH DAILY [facility] Last Admin: 10/08/17 09:46 Dose: 40 mg Gen: intubated, awake Heart: RRR Lung: scattered rhonchi Abd: soft, nontender Ext: + edema Laboratory Results - last 24 hr 10/04/17 10/04/17 10/07/17 12:09 16:27 06:14 WBC RBC Hgb Hct MCV MCH MCHC RDW Plt Count MPV Neutrophils % Lymphocytes % Monocytes % Eosinophils % Basophils % Puncture Site ABG pH ABG pCO2 at Pt Temp ABG pO2 at Pt Temp ABG HCO3 ABG O2 Sat (Measured) ABG O2 Content ABG Base Excess Ra Test O2 Delivery Device Oxygen Flow Rate Vent Mode Vent Rate PEEP Pressure Support Vent Sodium Potassium Chloride Carbon Dioxide Anion Gap BUN Creatinine Creat Clearance w eGFR POC Glucometer 377.68615 386.04138 [phone] Random Glucose Calcium Phosphorus Magnesium Total Bilirubin AST ALT Alkaline Phosphatase Total Protein Albumin 10/07/17 10/07/17 10/07/17 13:42 16:12 21:10 WBC RBC Hgb Hct MCV MCH MCHC RDW Plt Count MPV Neutrophils % Lymphocytes % Monocytes % Eosinophils % Basophils % Puncture Site ABG pH ABG pCO2 at Pt Temp ABG pO2 at Pt Temp ABG HCO3 ABG O2 Sat (Measured) ABG O2 Content ABG Base Excess Ra Test O2 Delivery Device Oxygen Flow Rate Vent Mode Vent Rate PEEP Pressure Support Vent Sodium Potassium Chloride Carbon Dioxide Anion Gap BUN Creatinine Creat Clearance w eGFR POC Glucometer 320.75283 238.59105 [phone] Random Glucose Calcium Phosphorus Magnesium Total Bilirubin AST ALT Alkaline Phosphatase Total Protein Albumin 10/08/17 10/08/17 10/08/17 05:33 06:00 06:00 WBC 16.0 H D RBC 2.84 L Hgb 8.5 L D Hct 25.6 L MCV 90.1 MCH 29.8 MCHC 33.0 RDW 16.9 H Plt Count 279 MPV 9.3 Neutrophils % 90.3 H Lymphocytes % 2.2 L D Monocytes % 7.0 Eosinophils % 0.4 Basophils % 0.1 Puncture Site ABG pH ABG pCO2 at Pt Temp ABG pO2 at Pt Temp ABG HCO3 ABG O2 Sat (Measured) ABG O2 Content ABG Base Excess Ra Test O2 Delivery Device Oxygen Flow Rate Vent Mode Vent Rate PEEP Pressure Support Vent Sodium 143 Potassium 4.7 Chloride 107 Carbon Dioxide 25 D Anion Gap 11 BUN 77 H D Creatinine 3.2 H Creat Clearance w eGFR 18.88 POC Glucometer [phone] Random Glucose 136 H D Calcium 7.5 L Phosphorus 4.4 Magnesium 2.1 Total Bilirubin 0.3 D AST 37 ALT 20 Alkaline Phosphatase 105 D Total Protein 4.3 L Albumin 1.1 L 10/08/17 06:50 WBC RBC Hgb Hct MCV MCH MCHC RDW Plt Count MPV Neutrophils % Lymphocytes % Monocytes % Eosinophils % Basophils % Puncture Site Left radial ABG pH 7.43 ABG pCO2 at Pt Temp 34.3 L D ABG pO2 at Pt Temp 77.9 ABG HCO3 22.1 ABG O2 Sat (Measured) 95.7 ABG O2 Content 10.6 L ABG Base Excess -1.5 Ra Test Positive O2 Delivery Device Mech vent Oxygen Flow Rate 40 Vent Mode A/c Vent Rate 16 PEEP 5.0 Pressure Support Vent 450 Sodium Potassium Chloride Carbon Dioxide Anion Gap BUN Creatinine Creat Clearance w eGFR POC Glucometer Random Glucose Calcium Phosphorus Magnesium Total Bilirubin AST ALT Alkaline Phosphatase Total Protein Albumin ASSESSMENT AND PLAN: Acute Hypoxic Respiratory Failure Pneumonia Septic Shock Acute on Chronic Renal Failure Lactic Acidosis Diabetic Ketoacidosis improving Paroxysmal Atrial Fibrillation with RVR HTN DM COPD r/o Critical Illness Myopathy/Polyneuropathy - continue antibiotics - HD per renal - monitor urine output, creatinine - monitor I/Os - glucose control - rate control - anticoagulation per cardiology - taper FiO2 to keep SpO2 >90% - PMR for EMG - daily sedation vacations and spontaneous breathing trials as tolerated - enteral feeds - DVT/GI prophylaxis Dr Acosta Critical care time spent in reviewing chart, evaluating patient and formulating plan 36 min
--- NOTE | 2017-10-08 14:05 | PN ---
Progress Note (short form) - Note Progress Note: CC: afib S: remains intubated. Initiated HD yesterday. Yesterday evening he went into RVR with HR's in the 140's. sbp's dropped into 70's. Patient was restarted on neosynephrine and given one time dose of 150 mg of amiodarone --> conversion to normal rhythm. PO diltiazem was uptitrated to 90 q 6h. started on asa yesterday. Current Medications Aspirin (Asa -) 81 mg PO DAILY [facility] Last Admin: 10/07/17 11:01 Dose: 81 mg Chlorhexidine Gluconate (Hibiclens For Decolonization -) 1 applic TP HS [facility] Last Admin: 10/06/17 21:18 Dose: 1 applic Diltiazem HCl (Cardizem -) 60 mg PO Q6HPO [facility] Last Admin: 10/07/17 13:28 Dose: 60 mg Heparin Sodium (Porcine) (Heparin -) 5,000 unit SQ BID [facility] Last Admin: 10/07/17 10:57 Dose: 5,000 unit Azithromycin 500 mg/ Dextrose 250 mls @ 250 mls/hr IVPB DAILY [facility] Last Admin: 10/07/17 10:58 Dose: 250 mls/hr Piperacillin Sod/Tazobactam (Sod 2.25 gm/ Dextrose) 50 mls @ 100 mls/hr IVPB Q8H-IV [facility] Last Admin: 10/07/17 10:58 Dose: 100 mls/hr Propofol (Diprivan -) 1,000,000 mcg in 100 mls @ 3.388 mls/hr IVPB TITR SELVIN; 10 MCG/KG/MIN PRN Reason: Protocol Last Admin: 10/07/17 14:00 Dose: 15 mcg/kg/min, 5.082 mls/hr Dextrose (D10w -) 1,000 mls @ 42 mls/hr IV ASDIR SELVIN Sodium Chloride (Normal Saline -) 250 mls @ 3,000 mls/hr IV PRN PRN PRN Reason: Hypotension during Dialysis Stop: 10/08/17 12:01 Insulin Aspart (Novolog Vial Sliding Scale -) 1 vial SQ ACHS [facility] PRN Reason: Protocol Last Admin: 10/07/17 16:13 Dose: 8 units Insulin Detemir (Levemir Vial) 12 units SQ HS [facility] Metoprolol Tartrate (Lopressor Injection -) 5 mg IVPUSH Q4H PRN PRN Reason: TACHYCARDIA Last Admin: 10/05/17 17:49 Dose: 5 mg Midazolam HCl (Versed -) 2 mg IVPUSH Q2H PRN PRN Reason: AGITATION Last Admin: 10/04/17 01:14 Dose: 2 mg Mupirocin (Bactroban Ointment (For Decolonization) -) 1 applic NS BID [facility] Stop: 10/08/17 09:59 Last Admin: 10/07/17 10:57 Dose: 1 applic Pantoprazole Sodium (Protonix Iv) 40 mg IVPUSH DAILY [facility] Last Admin: 10/07/17 10:57 Dose: 40 mg Current Medications Aspirin (Asa -) 81 mg PO DAILY [facility] Last Admin: 10/08/17 09:46 Dose: 81 mg Chlorhexidine Gluconate (Hibiclens For Decolonization -) 1 applic TP HS [facility] Last Admin: 10/07/17 21:05 Dose: 1 applic Diltiazem HCl (Cardizem -) 90 mg PO Q6HPO [facility] Last Admin: 10/08/17 06:00 Dose: 90 mg Heparin Sodium (Porcine) (Heparin -) 5,000 unit SQ BID [facility] Last Admin: 10/08/17 09:45 Dose: 5,000 unit Azithromycin 500 mg/ Dextrose 250 mls @ 250 mls/hr IVPB DAILY [facility] Last Admin: 10/08/17 10:05 Dose: 250 mls/hr Piperacillin Sod/Tazobactam (Sod 2.25 gm/ Dextrose) 50 mls @ 100 mls/hr IVPB Q8H-IV [facility] Last Admin: 10/08/17 09:45 Dose: 100 mls/hr Propofol (Diprivan -) 1,000,000 mcg in 100 mls @ 3.388 mls/hr IVPB TITR SELVIN; 10 MCG/KG/MIN PRN Reason: Protocol Last Titration: 10/07/17 18:53 Dose: 10 mcg/kg/min, 3.388 mls/hr Dextrose (D10w -) 1,000 mls @ 42 mls/hr IV ASDIR [facility] Last Admin: 10/07/17 19:34 Dose: Not Given Phenylephrine HCl 20,000 mcg/ (Sodium Chloride) 250 mls @ 75 mls/hr IVPB ASDIR SELVIN; 100 MCG/MIN PRN Reason: Protocol Last Titration: 10/08/17 04:00 Dose: 20 mcg/min, 15 mls/hr Sodium Chloride (Normal Saline -) 250 mls @ 3,000 mls/hr IV PRN PRN PRN Reason: Hypotension during Dialysis Stop: 10/09/17 09:44 Insulin Aspart (Novolog Vial Sliding Scale -) 1 vial SQ ACHS [facility]EL[facility] PRN Reason: Protocol Last Admin: 10/08/17 13:35 Dose: 6 units Insulin Detemir (Levemir Vial) 12 units SQ HS [facility] Last Admin: 10/07/17 21:48 Dose: 12 units Metoprolol Tartrate (Lopressor Injection -) 5 mg IVPUSH Q4H PRN PRN Reason: TACHYCARDIA Last Admin: 10/05/17 17:49 Dose: 5 mg Midazolam HCl (Versed -) 2 mg IVPUSH Q2H PRN PRN Reason: AGITATION Last Admin: 10/04/17 01:14 Dose: 2 mg Pantoprazole Sodium (Protonix Iv) 40 mg IVPUSH DAILY [facility] Last Admin: 10/08/17 09:46 Dose: 40 mg Vital Signs - 24 hr 10/07/17 10/07/17 10/07/17 14:00 14:30 15:45 Temperature 99 F Pulse Rate 99 H 95 H Respiratory 14 25 H 16 Rate Blood Pressure 103/51 108/64 O2 Sat by Pulse Oximetry (%) 10/07/17 10/07/17 10/07/17 15:50 16:00 16:20 Temperature Pulse Rate 97 H 99 H 97 H Respiratory 16 28 H 16 Rate Blood Pressure 104/53 104/53 104/53 O2 Sat by Pulse Oximetry (%) 10/07/17 10/07/17 10/07/17 16:50 17:10 17:20 Temperature Pulse Rate 106 H 140 H Respiratory 16 27 H 16 Rate Blood Pressure 111/62 96/55 O2 Sat by Pulse Oximetry (%) 10/07/17 10/07/17 10/07/17 17:30 17:38 18:00 Temperature 98.6 F Pulse Rate 140 H 139 H Respiratory 16 20 Rate Blood Pressure 90/51 90/51 O2 Sat by Pulse 95 Oximetry (%) 10/07/17 10/07/17 10/07/17 18:45 18:55 19:00 Temperature Pulse Rate 144 H 97 H Respiratory 23 23 23 Rate Blood Pressure 76/48 72/54 O2 Sat by Pulse Oximetry (%) 10/07/17 10/07/17 10/07/17 19:03 19:15 19:30 Temperature Pulse Rate 93 H 89 88 Respiratory 21 21 Rate Blood Pressure 72/54 106/55 110/53 O2 Sat by Pulse Oximetry (%) 10/07/17 10/07/17 10/07/17 19:40 20:00 20:30 Temperature Pulse Rate 90 92 H 102 H Respiratory 23 Rate Blood Pressure 110/53 120/49 112/50 O2 Sat by Pulse Oximetry (%) 10/07/17 10/07/17 10/07/17 21:00 21:37 21:45 Temperature Pulse Rate Respiratory 16 23 24 Rate Blood Pressure O2 Sat by Pulse 94 L 93 L Oximetry (%) 10/07/17 10/07/17 10/08/17 22:00 23:00 00:00 Temperature 100.1 F H Pulse Rate 97 H 97 H 96 H Respiratory 26 H 22 24 Rate Blood Pressure 108/53 94/49 109/52 O2 Sat by Pulse Oximetry (%) 10/08/17 10/08/17 10/08/17 00:35 02:00 03:32 Temperature 99.8 F H Pulse Rate 96 H Respiratory 22 26 H 20 Rate Blood Pressure 108/49 O2 Sat by Pulse Oximetry (%) 10/08/17 10/08/17 10/08/17 04:00 06:00 06:20 Temperature 99.7 F H Pulse Rate 92 H 91 H Respiratory 29 H 22 18 Rate Blood Pressure 112/50 101/50 O2 Sat by Pulse Oximetry (%) 10/08/17 10/08/17 10/08/17 08:00 08:23 09:00 Temperature Pulse Rate 90 Respiratory 20 22 22 Rate Blood Pressure 110/48 O2 Sat by Pulse Oximetry (%) 10/08/17 10/08/17 10/08/17 10:00 11:35 12:00 Temperature 98.8 F Pulse Rate 92 H 92 H Respiratory 20 23 20 Rate Blood Pressure 117/45 102/43 O2 Sat by Pulse Oximetry (%) Intake & Output 10/06/17 10/07/17 10/08/17 10/09/17 07:59 07:59 07:59 07:59 Intake Total 1721.2 808.4 1621 Output Total 1300 1000 550 Balance 421.2 -191.6 1071 Weight 126 lb 135 lb 6.4 oz NAD, cachectic, intubated, sedated. opens eyes to stimulation. JVD flat, neck supple diffuse rhonchi, nl effort rrr nl s1, s2 2/6 sys murmur at sternal border + bs soft nt nd. no le e/c/c diminished dp/pt no carotid bruits no jaundice, diaphoresis CBC, BMP 10/08/17 06:00 10/08/17 06:00 Laboratory Tests 10/06/17 10/06/17 10/08/17 05:50 05:50 06:00 ABG pH ABG pCO2 at Pt Temp ABG pO2 at Pt Temp Magnesium 2.1 Iron 22 L Ferritin 202.816 Total Bilirubin 0.3 D AST 37 ALT 20 Alkaline Phosphatase 105 D Albumin 1.1 L 10/08/17 06:50 ABG pH 7.43 ABG pCO2 at Pt Temp 34.3 L D ABG pO2 at Pt Temp 77.9 Magnesium Iron Ferritin Total Bilirubin AST ALT Alkaline Phosphatase Albumin EKG 10/03: sinus tach with atrial run. non-sp t wave ab. no ischemic changes. tele: currently SR with pac's. cxr 10/05: RLL consolidation and pleural fluid. cxr 10/08 improved aeration at right base. 10/05 renal u/s reviewed. small amount of ascites. see emr for detailed report. echo 06/2017: mod lvh. nl lv fn. nl rv size/fn. 1+ lae. mod-sev mac with mod ms. 1+ mr. nl rvsp. 1+ ao dilation A/P 76 yo with pmhx of htn, hl, pad, afib (not on AC due to GIB), cva (no residual deficits), copd, dm, mgus, esthesioneuroblastoma treated with radiation therapy , chronic anemia s/p recent GIB admitted with dka, sepsis, resp failure. Hospital course now complicated by episode of afib with rvr afib - not previously a candidate for AC b/c of prior hx of GIB. remains anemic. - s/p IV amio. started po dilt 10/05. now back in sr. hr controlled. - lyte repletion prn. - 10/07: initiated HD this evening and subsequently went into RVR with HR's in the 140's. sbp's dropped into 70's. Patient was restarted on neosynephrine and given one time dose of 150 mg of amiodarone --> conversion to normal rhythm. Will uptitrate po dilt to 90 q6h and wean off pressors. starting ASA today. - 10/08: slight hgb drop on asa. iron studies notes. con't to monitor hgb. Consider discussing again candidacy for AC once hemodynamically stable, given patient is high risk for stroke (with h/o prior cva). Improved HR control on increased dilt, con't htn - anti-htn regimen had been held b/c of hypotension/sepsis. Diltiazem started for rate control. - 10/08: required resumption of pressors yesterday evening. con't on diltiazem for rate control. cva/pad - con't statin. per pmd, previously not a candidate for asa due to recent gib and anemia. Discussed again with pmd today. started trial of ASA 10/07. will monitor hgb. iron studies noted. mild asc ao dilation - can consider switching to beta car once resp issues resolve. dka/sepsis/resp failure - ongoing mgm't per pmd/pulm/id SHANTA - renal following, no sig improvement --> initiated HD 10/07. anemia - as above. > 35 min cct
--- NOTE | 2017-10-08 14:55 | PN ---
Progress Note (short form) - Note Progress Note: Renal follow up for SHANTA Pt seen and examined in the ICU on vent, awake, s/p 1st dialysis yesterday no sob, chest pain, abd pain Vital Signs Temperature 98.8 F 10/08/17 10:00 Pulse Rate 89 10/08/17 14:39 Respiratory Rate 20 10/08/17 12:00 Blood Pressure 94/46 10/08/17 14:39 O2 Sat by Pulse Oximetry (%) 93 L 10/07/17 21:37 Intake & Output 10/05/17 10/06/17 10/07/17 10/08/17 23:59 23:59 23:59 23:59 Intake Total 3235.6 881.6 1168.4 1261 Output Total 600 1700 650 200 Balance 2635.6 -818.4 518.4 1061 Weight 56.427 kg 57.153 kg 61.416 kg NAD awake and alert RRR, No M/R Dec BS at lung bases soft NT/ND No LE edema, clubbing or cyanosis heels in dressing CBC, BMP 10/08/17 06:00 10/08/17 06:00 Current Medications Aspirin (Asa -) 81 mg PO DAILY [facility] Last Admin: 10/08/17 09:46 Dose: 81 mg Chlorhexidine Gluconate (Hibiclens For Decolonization -) 1 applic TP HS [facility] Last Admin: 10/07/17 21:05 Dose: 1 applic Diltiazem HCl (Cardizem -) 90 mg PO Q6HPO [facility] Last Admin: 10/08/17 14:27 Dose: 90 mg Heparin Sodium (Porcine) (Heparin -) 5,000 unit SQ BID [facility] Last Admin: 10/08/17 09:45 Dose: 5,000 unit Azithromycin 500 mg/ Dextrose 250 mls @ 250 mls/hr IVPB DAILY [facility] Last Admin: 10/08/17 10:05 Dose: 250 mls/hr Piperacillin Sod/Tazobactam (Sod 2.25 gm/ Dextrose) 50 mls @ 100 mls/hr IVPB Q8H-IV [facility] Last Admin: 10/08/17 09:45 Dose: 100 mls/hr Propofol (Diprivan -) 1,000,000 mcg in 100 mls @ 3.388 mls/hr IVPB TITR SELVIN; 10 MCG/KG/MIN PRN Reason: Protocol Last Titration: 10/07/17 18:53 Dose: 10 mcg/kg/min, 3.388 mls/hr Dextrose (D10w -) 1,000 mls @ 42 mls/hr IV ASDIR SELVIN Last Admin: 10/07/17 19:34 Dose: Not Given Phenylephrine HCl 20,000 mcg/ (Sodium Chloride) 250 mls @ 75 mls/hr IVPB ASDIR SELVIN; 100 MCG/MIN PRN Reason: Protocol Last Titration: 10/08/17 14:39 Dose: 10 mcg/min, 7.5 mls/hr Sodium Chloride (Normal Saline -) 250 mls @ 3,000 mls/hr IV PRN PRN PRN Reason: Hypotension during Dialysis Stop: 10/09/17 09:44 Insulin Aspart (Novolog Vial Sliding Scale -) 1 vial SQ ACHS [facility] PRN Reason: Protocol Last Admin: 10/08/17 13:35 Dose: 6 units Insulin Detemir (Levemir Vial) 12 units SQ HS [facility] Last Admin: 10/07/17 21:48 Dose: 12 units Metoprolol Tartrate (Lopressor Injection -) 5 mg IVPUSH Q4H PRN PRN Reason: TACHYCARDIA Last Admin: 10/05/17 17:49 Dose: 5 mg Midazolam HCl (Versed -) 2 mg IVPUSH Q2H PRN PRN Reason: AGITATION Last Admin: 10/04/17 01:14 Dose: 2 mg Pantoprazole Sodium (Protonix Iv) 40 mg IVPUSH DAILY [facility] Last Admin: 10/08/17 09:46 Dose: 40 mg 76 year old male with a significant past medical history of COPD, GI bleed, diverticulosis, HLD, CVA, intussusception, umbilical hernia, DM, HTN, sinus cancer with excision and polypectomy who presents to the ED, accompanied by , s/p high blood sugar levels earlier today. #SHANTA on CKD likely due to ATN in setting of sepsis #Sepsis/PNA #AG and Non-AG Metabolic acidosis (corrected AG is 19) #Anemia #Hx of Hypertension #DM on Insulin for 2nd dialysis today with UF goal of 1.5L as pt with signs of pulmonary congestion continue Abx as per ID Acidosis is improved with HD Trend CBC, Transfuse as per ICU protocol Tomás Al DO
--- NOTE | 2017-10-08 15:04 | PN ---
Physical Exam: SUBJECTIVE: Patient seen and examined in ICU. After dialysis, was hypotensive with afib with RVR. Given bolus of amiodarone and started on phenylephrine. Converted, blood pressures increased, MAPs borderline. Patient arousable, follows commands, can do small movement in all four extremities. OBJECTIVE: Vital Signs Period Temp Pulse Resp BP Sys/Sy Pulse Ox Last 24 Hr 98.6 F-100.1 F 88-144 16-29 72-120/43-64 93-95 GENERAL: The patient is arousable, intubated HEAD: Normal with no signs of trauma. EYES: PERRL, extraocular movements intact, sclera anicteric, conjunctiva clear. LUNGS: Breath sounds equal, clear to auscultation bilaterally, no wheezes, no crackles, no accessory muscle use. HEART: Regular rate and rhythm, S1, S2 without murmur, rub or gallop. EXTREMITIES: 2+ pulses, warm, well-perfused, no edema. NEUROLOGICAL: Cranial nerves II through XII grossly intact. Normal speech, gait not observed. Moves all four extremities, follows basic commands SKIN: Warm, dry, normal turgor, no rashes or lesions noted Laboratory Results - last 24 hr 10/04/17 10/04/17 10/07/17 12:09 16:27 16:12 WBC RBC Hgb Hct MCV MCH MCHC RDW Plt Count MPV Neutrophils % Lymphocytes % Monocytes % Eosinophils % Basophils % Puncture Site ABG pH ABG pCO2 at Pt Temp ABG pO2 at Pt Temp ABG HCO3 ABG O2 Sat (Measured) ABG O2 Content ABG Base Excess Ra Test O2 Delivery Device Oxygen Flow Rate Vent Mode Vent Rate PEEP Pressure Support Vent Sodium Potassium Chloride Carbon Dioxide Anion Gap BUN Creatinine Creat Clearance w eGFR POC Glucometer 377.66116 386.45887 [phone] Random Glucose Calcium Phosphorus Magnesium Total Bilirubin AST ALT Alkaline Phosphatase Total Protein Albumin 10/07/17 10/08/17 10/08/17 21:10 05:33 06:00 WBC 16.0 H D RBC 2.84 L Hgb 8.5 L D Hct 25.6 L MCV 90.1 MCH 29.8 MCHC 33.0 RDW 16.9 H Plt Count 279 MPV 9.3 Neutrophils % 90.3 H Lymphocytes % 2.2 L D Monocytes % 7.0 Eosinophils % 0.4 Basophils % 0.1 Puncture Site ABG pH ABG pCO2 at Pt Temp ABG pO2 at Pt Temp ABG HCO3 ABG O2 Sat (Measured) ABG O2 Content ABG Base Excess Ra Test O2 Delivery Device Oxygen Flow Rate Vent Mode Vent Rate PEEP Pressure Support Vent Sodium Potassium Chloride Carbon Dioxide Anion Gap BUN Creatinine Creat Clearance w eGFR POC Glucometer 218.49019 [phone] Random Glucose Calcium Phosphorus Magnesium Total Bilirubin AST ALT Alkaline Phosphatase Total Protein Albumin 10/08/17 10/08/17 10/08/17 06:00 06:50 12:54 WBC RBC Hgb Hct MCV MCH MCHC RDW Plt Count MPV Neutrophils % Lymphocytes % Monocytes % Eosinophils % Basophils % Puncture Site Left radial ABG pH 7.43 ABG pCO2 at Pt Temp 34.3 L D ABG pO2 at Pt Temp 77.9 ABG HCO3 22.1 ABG O2 Sat (Measured) 95.7 ABG O2 Content 10.6 L ABG Base Excess -1.5 Ra Test Positive O2 Delivery Device Mech vent Oxygen Flow Rate 40 Vent Mode A/c Vent Rate 16 PEEP 5.0 Pressure Support Vent 450 Sodium 143 Potassium 4.7 Chloride 107 Carbon Dioxide 25 D Anion Gap 11 BUN 77 H D Creatinine 3.2 H Creat Clearance w eGFR 18.88 POC Glucometer [phone] Random Glucose 136 H D Calcium 7.5 L Phosphorus 4.4 Magnesium 2.1 Total Bilirubin 0.3 D AST 37 ALT 20 Alkaline Phosphatase 105 D Total Protein 4.3 L Albumin 1.1 L Active Medications Generic Name Dose Route Start Last Admin Trade Name Freq PRN Reason Stop Dose Admin Aspirin 81 mg 10/07/17 10:30 10/08/17 09:46 Asa - PO 81 mg DAILY SELVIN Administration Chlorhexidine Gluconate 1 applic 10/03/17 22:00 10/07/17 21:05 Hibiclens For Decolonization - TP 1 applic HS SELVIN Administration Diltiazem HCl 90 mg 10/07/17 19:45 10/08/17 14:27 Cardizem - PO 90 mg Q6HPO SELVIN Administration Heparin Sodium (Porcine) 5,000 unit 10/03/17 10:00 10/08/17 09:45 Heparin - SQ 5,000 unit BID SELVIN Administration Azithromycin 500 mg/ Dextrose 250 mls @ 250 mls/hr 10/04/17 10:00 10/08/17 10 :05 IVPB 250 mls/hr DAILY SELVIN Administration Piperacillin Sod/Tazobactam 50 mls @ 100 mls/hr 10/03/17 18:00 10/08/17 09:45 Sod 2.25 gm/ Dextrose IVPB 100 mls/hr Q8H-IV SELVIN Administration Propofol 1,000,000 mcg in 100 mls @ 3.388 mls/hr 10/04/17 09:15 10/07/17 18: 53 Diprivan - IVPB 10 mcg/kg/min TITR SELVIN 3.388 mls/hr Protocol Titration 10 MCG/KG/MIN Dextrose 1,000 mls @ 42 mls/hr 10/06/17 18:45 10/07/17 19:34 D10w - IV Not Given ASDIR SELVIN Phenylephrine HCl 20,000 mcg/ 250 mls @ 75 mls/hr 10/07/17 19:00 10/08/17 14: 39 Sodium Chloride IVPB 10 mcg/min ASDIR SELVIN 7.5 mls/hr Protocol Titration 100 MCG/MIN Sodium Chloride 250 mls @ 3,000 mls/hr 10/08/17 09:44 Normal Saline - IV 10/09/17 09:44 PRN PRN Hypotension during Dialysis Insulin Aspart 1 vial 10/07/17 11:57 10/08/17 13:35 Novolog Vial Sliding Scale - SQ 6 units ACHS SELVIN Administration Protocol Insulin Detemir 12 units 10/07/17 22:00 10/07/17 21:48 Levemir Vial SQ 12 units HS SELVIN Administration Metoprolol Tartrate 5 mg 10/03/17 19:00 10/05/17 17:49 Lopressor Injection - IVPUSH 5 mg Q4H PRN Administration TACHYCARDIA Midazolam HCl 2 mg 10/03/17 14:35 10/04/17 01:14 Versed - IVPUSH 2 mg Q2H PRN Administration AGITATION Pantoprazole Sodium 40 mg 10/05/17 14:45 10/08/17 09:46 Protonix Iv IVPUSH 40 mg DAILY SELVIN Administration ASSESSMENT/PLAN: Patient is a 76 year old male with who presented for acute respiratory failure and was found to have pneumonia and DKA. Patient is admitted to ICU for further monitoring and management. Pulmonology #Acute Hypoxic Respiratory Failure -Likely secondary to Pneumonia -Continue Zosyn 2.25mg IV Q8H AND Azithromycin 500mg IV -Patient off Versed -Continue Daily sedation vacations and spontaneous breathing trials. Sedation vacation successful, patient to HD instead of spontaneous breathing trial #COPD -Continue Nebulizers -Continue Ventilation -Continue IV Abx Infectious Disease #Septic Shock secondary to Pneumonia -Continue IV abx Azithromycin and Zosyn -Blood cultures negative -Sputum cultures staph, hector sensitive -Legionella negative -HOB -Aspiration precaution Nephrology #Acute on Chronic Renal Failure -Likely ATN secondary from Septic hock -Urine output still slow, 200 this morning. -Acidosis and Cr improved after dialysis -Dialysis planned again for today #AG and Non-AG Metabolic acidosis -Acidosis resolved, 7.43 -Continue daily ABG's Cardiovascular #Paroxysmal Atrial Fibrillation -Continue Cardizem 60mg Q6H -Metoprolol 5mg IVP Q4H PRN for Tachycardia #HTN -Patient not hypertensive -No Lasix today -Will continue to monitor BP #CAD/PVD -Continue Statin when patient is extubated Endocrine #DKA-Resolved -Continue ISS -Continue BGM -Continue Levemir 6 units HS Neurology #Rule out Critical Illness Myopathy/Polyneuropathy -Patient improved today with following commands, small movements in all extremities -Will consult PMR. -Will order EMG if neurological function does not improve F/E/N -On no fluids -Electrolytes wnl -NPO- On tube feeds- Glucerna Prophylaxis -High risk. Heparin 5000 units SQ for DVT -Protonix 40mg IVP daily Disposition -Full code -Continue sedation vacation and spontaneous breathing trials Visit type - Emergency Visit Emergency Visit: Yes ED Registration Date: 10/03/17 Care time: The patient presented to the Emergency Department on the above date and was hospitalized for further evaluation of their emergent condition. - New Patient This patient is new to me today: No - Critical Care Critical Care patient: Yes Total Critical Care Time (in minutes): 35 Critical Care Statement: The care of this patient involved high complexity decision making to prevent further life threatening deterioration of the patient 's condition and/or to evaluate & treat vital organ system(s) failure or risk of failure.
--- NOTE | 2017-10-08 15:51 | PN ---
Progress Note (short form) - Note Progress Note: Intubated, off Propofol Eyes open, awake, responds to questions On tube feeding Vital Signs Period Temp Pulse Resp BP Sys/Sy Pulse Ox Last 24 Hr 98.6 F-100.1 F 85-144 16-29 72-120/43-62 93-95 PE: Eyes open, awake, alert Neck: supple Lungs: CTA CVS: s1S2 Abd: Benign Ext: No edema CMP Sodium 143 mmol/L (136-145) 10/08/17 06:00 Potassium 4.7 mmol/L (3.5-5.1) 10/08/17 06:00 Chloride 107 mmol/L (98-107) 10/08/17 06:00 Carbon Dioxide 25 mmol/L (21-32) D 10/08/17 06:00 Anion Gap 11 (8-16) 10/08/17 06:00 BUN 77 mg/dL (7-18) H D 10/08/17 06:00 Creatinine 3.2 mg/dL (0.7-1.3) H 10/08/17 06:00 Creat Clearance w eGFR 18.88 (>60) 10/08/17 06:00 POC Glucometer [phone] UNITS (80-120) 10/08/17 12:54 Random Glucose 136 mg/dL (74-106) H D 10/08/17 06:00 Hemoglobin A1c % 8.5 % (4.8-6.0) H D 10/04/17 06:00 Lactic Acid 2.0 mmol/L (0.0-2.0) 10/03/17 12:00 Calcium 7.5 mg/dL (8.5-10.1) L 10/08/17 06:00 Phosphorus 4.4 mg/dL (2.5-4.9) 10/08/17 06:00 Magnesium 2.1 mg/dL (1.8-2.4) 10/08/17 06:00 Iron 22 ug/dL (38-169) L 10/06/17 05:50 Ferritin 202.816 ng/ml (16.4-293.9) 10/06/17 05:50 Total Bilirubin 0.3 mg/dL (0.2-1.0) D 10/08/17 06:00 AST 37 U/L (15-37) 10/08/17 06:00 ALT 20 U/L (12-78) 10/08/17 06:00 Alkaline Phosphatase 105 U/L (45-117) D 10/08/17 06:00 Total Protein 4.3 g/dl (6.4-8.2) L 10/08/17 06:00 Albumin 1.1 g/dl (3.4-5.0) L 10/08/17 06:00 Vitamin B12 1602 pg/ml (180-914) H 10/06/17 05:50 Serum Folate 23 ng/ml (3.1-17.5) H 10/06/17 05:50 Current Medications Generic Name Dose Route Start Last Admin Trade Name Freq PRN Reason Stop Dose Admin Aspirin 81 mg 10/07/17 10:30 10/08/17 09:46 Asa - PO 81 mg DAILY SELVIN Administration Chlorhexidine Gluconate 1 applic 10/03/17 22:00 10/07/17 21:05 Hibiclens For Decolonization - TP 1 applic HS SELVIN Administration Diltiazem HCl 90 mg 10/07/17 19:45 10/08/17 14:27 Cardizem - PO 90 mg Q6HPO SELVIN Administration Heparin Sodium (Porcine) 5,000 unit 10/03/17 10:00 10/08/17 09:45 Heparin - SQ 5,000 unit BID SELVIN Administration Azithromycin 500 mg/ Dextrose 250 mls @ 250 mls/hr 10/04/17 10:00 10/08/17 10 :05 IVPB 250 mls/hr DAILY SELVIN Administration Piperacillin Sod/Tazobactam 50 mls @ 100 mls/hr 10/03/17 18:00 10/08/17 09:45 Sod 2.25 gm/ Dextrose IVPB 100 mls/hr Q8H-IV SELVIN Administration Propofol 1,000,000 mcg in 100 mls @ 3.388 mls/hr 10/04/17 09:15 10/07/17 18: 53 Diprivan - IVPB 10 mcg/kg/min TITR SELVIN 3.388 mls/hr Protocol Titration 10 MCG/KG/MIN Dextrose 1,000 mls @ 42 mls/hr 10/06/17 18:45 10/07/17 19:34 D10w - IV Not Given ASDIR SELVIN Phenylephrine HCl 20,000 mcg/ 250 mls @ 75 mls/hr 10/07/17 19:00 10/08/17 15: 24 Sodium Chloride IVPB 25 mcg/min ASDIR SELVIN 18.75 mls/hr Protocol Titration 100 MCG/MIN Sodium Chloride 250 mls @ 3,000 mls/hr 10/08/17 09:44 Normal Saline - IV 10/09/17 09:44 PRN PRN Hypotension during Dialysis Insulin Aspart 1 vial 10/07/17 11:57 10/08/17 13:35 Novolog Vial Sliding Scale - SQ 6 units ACHS SELVIN Administration Protocol Insulin Detemir 12 units 10/07/17 22:00 10/07/17 21:48 Levemir Vial SQ 12 units HS SELVIN Administration Metoprolol Tartrate 5 mg 10/03/17 19:00 10/05/17 17:49 Lopressor Injection - IVPUSH 5 mg Q4H PRN Administration TACHYCARDIA Midazolam HCl 2 mg 10/03/17 14:35 10/04/17 01:14 Versed - IVPUSH 2 mg Q2H PRN Administration AGITATION Pantoprazole Sodium 40 mg 10/05/17 14:45 10/08/17 09:46 Protonix Iv IVPUSH 40 mg DAILY SELVIN Administration AP; Acute Hypoxic Respiratory Failure Pneumonia Septic Shock DM with Acidosis ? DKA,?Lactic acidosis Acute on Chronic Renal Failure Paroxysmal Atrial Fibrillation with RVR HTN COPD BGM Q6 hr Continue Levemir 12 units daily Novolog coverage continue antibiotics Tube feeding as tolerated Chart reviewed Start D10W at 42 ml/hr if tube feeding is held or discontinued for any reason until pt is able to eat. Should be on long acting Insulin for now Will F/U
--- NOTE | 2017-10-08 16:12 | PN ---
Progress Note, Physician History of Present Illness: patient still intubated and sedated on pressors now dialysis catheter in place - Current Medication List Current Medications: Active Medications Aspirin (Asa -) 81 mg PO DAILY [facility] Last Admin: 10/08/17 09:46 Dose: 81 mg Chlorhexidine Gluconate (Hibiclens For Decolonization -) 1 applic TP HS [facility] Last Admin: 10/07/17 21:05 Dose: 1 applic Diltiazem HCl (Cardizem -) 90 mg PO Q6HPO [facility] Last Admin: 10/08/17 14:27 Dose: 90 mg Heparin Sodium (Porcine) (Heparin -) 5,000 unit SQ BID [facility] Last Admin: 10/08/17 09:45 Dose: 5,000 unit Azithromycin 500 mg/ Dextrose 250 mls @ 250 mls/hr IVPB DAILY [facility] Last Admin: 10/08/17 10:05 Dose: 250 mls/hr Piperacillin Sod/Tazobactam (Sod 2.25 gm/ Dextrose) 50 mls @ 100 mls/hr IVPB Q8H-IV [facility] Last Admin: 10/08/17 09:45 Dose: 100 mls/hr Propofol (Diprivan -) 1,000,000 mcg in 100 mls @ 3.388 mls/hr IVPB TITR SELVIN; 10 MCG/KG/MIN PRN Reason: Protocol Last Titration: 10/07/17 18:53 Dose: 10 mcg/kg/min, 3.388 mls/hr Dextrose (D10w -) 1,000 mls @ 42 mls/hr IV ASDIR [facility] Last Admin: 10/07/17 19:34 Dose: Not Given Phenylephrine HCl 20,000 mcg/ (Sodium Chloride) 250 mls @ 75 mls/hr IVPB ASDIR SELVIN; 100 MCG/MIN PRN Reason: Protocol Last Titration: 10/08/17 15:24 Dose: 25 mcg/min, 18.75 mls/hr Sodium Chloride (Normal Saline -) 250 mls @ 3,000 mls/hr IV PRN PRN PRN Reason: Hypotension during Dialysis Stop: 10/09/17 09:44 Insulin Aspart (Novolog Vial Sliding Scale -) 1 vial SQ ACHS [facility] PRN Reason: Protocol Last Admin: 10/08/17 13:35 Dose: 6 units Insulin Detemir (Levemir Vial) [address] [facility] Last Admin: 10/07/17 21:48 Dose: 12 units Metoprolol Tartrate (Lopressor Injection -) 5 mg IVPUSH Q4H PRN PRN Reason: TACHYCARDIA Last Admin: 10/05/17 17:49 Dose: 5 mg Midazolam HCl (Versed -) 2 mg IVPUSH Q2H PRN PRN Reason: AGITATION Last Admin: 10/04/17 01:14 Dose: 2 mg Pantoprazole Sodium (Protonix Iv) 40 mg IVPUSH DAILY [facility] Last Admin: 10/08/17 09:46 Dose: 40 mg - Objective Vital Signs: Vital Signs Temperature 98.8 F 10/08/17 10:00 Pulse Rate 85 10/08/17 15:24 Respiratory Rate 18 10/08/17 14:00 Blood Pressure 94/46 10/08/17 15:24 O2 Sat by Pulse Oximetry (%) 93 L 10/07/17 21:37 Constitutional: Yes: Other HENT: Yes: Atraumatic Neck: Yes: Supple Cardiovascular: Yes: Regular Rate and Rhythm Respiratory: Yes: Intubated, Mechanically Ventilated Gastrointestinal: Yes: Normal Bowel Sounds, Soft Musculoskeletal: Yes: WNL Extremities: Yes: WNL Labs: CBC, BMP 10/08/17 06:00 10/08/17 06:00 INR, PTT INR 1.09 (0.82-1.09) 10/06/17 14:10 Assessment/Plan 76 year old male with a significant past medical history of COPD, GI bleed, diverticulosis, HLD, CVA, intussusception, umbilical hernia, DM, HTN, sinus cancer with excision and polypectomy who is now intubated and sedated and on pressors Acute Hypoxic Respiratory Failure Pneumonia Septic Shock Acute on Chronic Renal Failure Lactic Acidosis Diabetic Ketoacidosis improving HTN DM COPD cx result noted plan continue abx continue close monitoring wean as tolerated rest continue current mgmt patient improving pressors as needed cc time 40 min
[2017-10-08] MEDS ORDERED: SODIUM CHLORIDE 250 ML IV PRN (16:14)
--- NOTE | 2017-10-08 18:56 | CONS ---
PHYSICAL MEDICINE REHABILITATION CONSULTATION DATE OF CONSULTATION: 10/08/2017 REFERRING PHYSICIAN: Curt Caputo MD HISTORY OF PRESENT ILLNESS: Patient is a 76-year-old man who was admitted on October 03, 2017, in acute respiratory failure and was found to have pneumonia and diabetic ketoacidosis. He is also being treated for COPD exacerbation. He is on a ventilator and had been sedated on propofol which has been discontinued. The patient is more alert, able to follow some simple commands. There is concern over possibly developing myopathy or critical illness, polyneuropathy, and an EMG is being considered by Dr. aCputo if he does not improve. I discussed the case briefly with Dr. Acosta who states that the patient will be dialyzed and a weaning trial may be initiated later today. Patient is responsive but is extremely weak. Most recent blood work done today: He has WBCs of 16,000. They had been over 30,000 on October 03. His hemoglobin is 8.5 and platelet count 279. Chemistry shows elevation in BUN 77, creatinine 3.2 which is slightly improved over prior blood work. It had been trending higher, and as of yesterday, his BUN was 112 and creatinine 4.0. The rest of his chemistries: Sodium 143, potassium 4.7, chloride 107, CO2 of 25. His albumin is extremely low at 1.1 and total protein low at 4.3. Calcium is low at 7.5 but corrects for low albumin. Patient had an elevated B12 of over 1600, and folate was also elevated at 23. Most recent chest x-ray done today demonstrated right base slightly aerated, better aerated compared to prior study on October 07. There is some fluid with atelectasis or infiltrate. Endotracheal tube and right central line noted. Marked rotation to the right with a prominent mediastinum. PAST MEDICAL AND SURGICAL HISTORY: Taken from the patient's medical record: COPD, GI bleed, diverticulitis, hyperlipidemia, CVA, diabetes, hypertension, cancer of the sinus status post excision and polypectomy. SOCIAL HISTORY: Unknown, but per the demographic sheet, he lives in an apartment with his . His prior functional status is unable to be determined. Per the admitting blood work, he has a history of tobacco use. No alcohol. No drugs. ALLERGIES: None noted. FAMILY HISTORY: Significant for a brother with diabetes, liver cancer, and chronic kidney disease and father and mother with heart disease. Also, a sibling with cancer. REVIEW OF SYSTEMS: Patient can just basically answer yes or no as he is intubated and nonverbal. He denies any dizziness, any lightheadedness, any shortness of breath, any chest pain, neck pain, back pain, or joint pain. He appears to have no numbness or tingling at least when verbally asked. He does have swelling and severe 4-limb weakness, generalized. PHYSICAL EXAMINATION: General: Patient is resting quietly. He is intubated but easily arousable. He opens his eyes, tracks with his eyes, and shakes his head yes or no when answering questions and is calm and in no acute distress. HEENT: He is normocephalic and atraumatic. Extraocular muscles appear full. No definite facial weakness. Neck: Supple. Extremities: He has pitting edema in both of his hands, less in the lower extremities. Neuromuscular: Awake, alert, able to follow simple directions such as squeezing hands or wiggling toes. Cranial nerves difficult to fully assess due to intubation but no gross cranial nerve abnormalities. He blinks to threat and extraocular muscles full. No facial weakness or asymmetry. He has severe weakness in the upper and lower extremities, just able to distally slightly move his hand 1-2/5 and his toes 1/5. His passive range of motion is within functional limits and nearly full except for in the shoulders which are slightly limited, and he has some arthritic changes which are not limiting in the hands. In the lower extremities, he has fairly good passive range of motion, functional. He does not seem to feel pinprick in the upper or lower extremities, and his reflexes are depressed with diffuse muscle atrophy. Skin: Diffuse ecchymosis, dysvascular changes in the lower extremities. OVERALL IMPRESSION: 1. Severe deficits in mobility and activities of daily living. 2. Severe muscular weakness, rule out critical illness polyneuropathy versus myopathy. 3. Respiratory failure. 4. Diabetic ketoacidosis. 5. Pneumonia. 6. Anemia. 7. Hypoalbuminemia and malnutrition. 8. Pylna-me-dtnggpi kidney disease. 9. Chronic obstructive pulmonary disease exacerbation. 10. Elevated risk for deep venous thrombosis due to immobility. 11. Elevated risk for skin breakdown due to immobility and weakness. PLAN/SUGGESTION: 1. Discussed briefly with Dr. Sánchezaud the patient to undergo weaning trials. 2. Daily range of motion with Nursing. 3. Consider physical therapy once patient is able to gain a little bit more volitional movement. 4. Agree with subcutaneous heparin for DVT prophylaxis. 5. Skin precautions. Avoid heel and sacral pressure. Frequent turning. Monitoring skin closely for any erythema or breakdown. 6. Consider nutritional support. 7. Follow up CBC. 8. Follow up chemistry. 9. Patient apparently to be dialyzed per Dr. Acosta. 10. Consider EMG nerve conduction studies if patient remains weak. Will follow up next week. Thank you for this referral. ANGIE MCNALLY M.D. [id number]
[2017-10-08] MEDS ORDERED: PHENYLEPHRINE HCL 10 MG/1 ML SINGLE DOSE VIAL ONE (21:18)
[2017-10-08] MEDS: PHENYLEPHRINE HCL 20,000 MCG in SODIUM CHLORIDE 248 ML IVPB SCH (22:00)
[2017-10-08] MEDS: PROPOFOL 1,000,000 MCG/100 ML VIAL IVPB SCH (22:00)
[2017-10-09] MEDS: INSULIN SLIDING SCALE (NOVOLOG) 1 VIAL SQ SCH ×5 (00:20→21:18)
[2017-10-09] MEDS: INSULIN (LEVEMIR) 100 UNITS/ML UNITS SQ SCH ×2 (00:21→21:18)
[2017-10-09] MEDS: CHLORHEXIDINE GLUCONATE 4% CLEANSER FOR DECOLONIZATION TP SCH ×2 (00:21→21:18)
[2017-10-09] MEDS: dilTIAZem HCL 30 MG TABLET (FP) PO SCH ×5 (00:29→19:51)
[2017-10-09] MEDS ORDERED: DEXTROSE 5%-WATER - 50 ML IVPB ONE ×4 (02:34→20:58)
[2017-10-09] MEDS ORDERED: PIPERACILLIN/TAZOBACTAM 2.25 GM VIAL IVPB ONE ×4 (02:34→20:58)
[2017-10-09] MEDS: PIPERACILLIN/TAZOB 2.25 GM 2.25 GM in DEXTROSE 5%-WATER - 50 ML IVPB SCH ×3 (02:42→18:12)
[2017-10-09] MEDS ORDERED: ACETAMINOPHEN 325 MG TABLET (FP) ONE (03:24)
[2017-10-09] MEDS: ACETAMINOPHEN 325 MG TABLET (FP) PO PRN (04:00)
[2017-10-09] MEDS: DEXTROSE 10%-WATER - 1,000 ML IV SCH ×3 (05:48→19:52)
[2017-10-09 06:06] LABS: HBSAG SCREEN Negative (Negative); HEP B CORE AB, TOT Negative (Negative)
[2017-10-09 06:53] LABS: HEMATOCRIT 22.2 % (35.4-49); HEMOGLOBIN 7.3 GM/dL (11.7-16.9); MEAN CELL VOLUME 90.9 fl (80-96); MEAN PLT VOLUME 9.4 fl (7.5-11.1); PLATELET COUNT 293 K/MM3 (134-434); RBC 2.44 M/mm3 (4.00-5.60); RDW 16.4 % (11.9-15.9); WHITE BLOOD COUNT 13.5 K/mm3 (4.0-10.0)
[2017-10-09 07:28] LABS: CHLORIDE 106 mmol/L (98-107); POTASSIUM 4.3 mmol/L (3.5-5.1); SODIUM 144 mmol/L (136-145)
[2017-10-09 07:39] LABS: ALBUMIN 1.1 g/dl (3.4-5.0); ALK PHOS 91 U/L (45-117); ANION GAP 8 (8-16); BILIRUBIN,TOTAL 0.2 mg/dL (0.2-1.0); BLOOD UREA NITROGEN 52 mg/dL (7-18); CALCIUM 7.3 mg/dL (8.5-10.1); CO2 30 mmol/L (21-32); CREATININE 2.6 mg/dL (0.7-1.3); GLUCOSE,RANDOM 174 mg/dL (74-106); MAGNESIUM 2.1 mg/dL (1.8-2.4); PHOSPHOROUS 4.1 mg/dL (2.5-4.9); SGOT/AST 40 U/L (15-37); SGPT/ALT 21 U/L (12-78); TOT PROT 4.1 g/dl (6.4-8.2)
--- NOTE | 2017-10-09 09:31 | PN ---
Progress Note (short form) - Note Progress Note: Patient seen and examined in the ICU. Remains intubated, awake off sedation. Remains on Phenylephrine for hemodynamic support. AC Mode of vent, 40% FiO2. CXR: Increasing right base changes OBJECTIVE: Intake & Output 10/06/17 10/07/17 10/08/17 10/09/17 23:59 23:59 23:59 23:59 Intake Total 881.6 1168.4 1759 345.2 Output Total 1700 650 550 200 Balance -818.4 518.4 1209 145.2 Weight 126 lb 135 lb 6.4 oz 133 lb 9.602 oz Last Vital Signs Temp Pulse Resp BP Pulse Ox 99.0 F 86 17 115/51 99 10/09/17 10:00 10/09/17 10:00 10/09/17 10:00 10/09/17 10:00 10/09/17 00:43 Active Medications Acetaminophen (Tylenol -) 650 mg PO Q6H PRN PRN Reason: FEVER Last Admin: 10/09/17 04:00 Dose: 650 mg Aspirin (Asa -) 81 mg PO DAILY [facility] Last Admin: 10/08/17 09:46 Dose: 81 mg Chlorhexidine Gluconate (Hibiclens For Decolonization -) 1 applic TP HS [facility] Last Admin: 10/09/17 00:21 Dose: 1 applic Diltiazem HCl (Cardizem -) 90 mg PO Q6HPO [facility] Last Admin: 10/09/17 05:43 Dose: Not Given Heparin Sodium (Porcine) (Heparin -) 5,000 unit SQ BID [facility] Last Admin: 10/09/17 00:00 Dose: 5,000 unit Azithromycin 500 mg/ Dextrose 250 mls @ 250 mls/hr IVPB DAILY [facility] Last Admin: 10/08/17 10:05 Dose: 250 mls/hr Piperacillin Sod/Tazobactam (Sod 2.25 gm/ Dextrose) 50 mls @ 100 mls/hr IVPB Q8H-IV [facility] Last Admin: 10/09/17 02:42 Dose: 100 mls/hr Propofol (Diprivan -) 1,000,000 mcg in 100 mls @ 3.388 mls/hr IVPB TITR [facility]; 10 MCG/KG/MIN PRN Reason: Protocol Last Titration: 10/09/17 08:20 Dose: 0 mcg/kg/min, 0 mls/hr Dextrose (D10w -) 1,000 mls @ 42 mls/hr IV ASDIR [facility] Last Admin: 10/09/17 05:48 Dose: Not Given Phenylephrine HCl 20,000 mcg/ (Sodium Chloride) 250 mls @ 75 mls/hr IVPB ASDIR [facility]; 100 MCG/MIN PRN Reason: Protocol Last Admin: 10/08/17 22:00 Dose: 25 mcg/min, 18.75 mls/hr Sodium Chloride (Normal Saline -) 250 mls @ 3,000 mls/hr IV PRN PRN PRN Reason: Hypotension during Dialysis Stop: 10/09/17 09:44 Insulin Aspart (Novolog Vial Sliding Scale -) 1 vial SQ ACHS [facility] PRN Reason: Protocol Last Admin: 10/09/17 06:59 Dose: 8 units Insulin Detemir (Levemir Vial) 12 units SQ HS [facility] Last Admin: 10/09/17 00:21 Dose: 12 units Metoprolol Tartrate (Lopressor Injection -) 5 mg IVPUSH Q4H PRN PRN Reason: TACHYCARDIA Last Admin: 10/05/17 17:49 Dose: 5 mg Midazolam HCl (Versed -) 2 mg IVPUSH Q2H PRN PRN Reason: AGITATION Last Admin: 10/04/17 01:14 Dose: 2 mg Pantoprazole Sodium (Protonix Iv) 40 mg IVPUSH DAILY [facility] Last Admin: 10/08/17 09:46 Dose: 40 mg Gen: intubated, awake Heart: RRR Lung: scattered rhonchi Abd: soft, nontender Ext: + edema Laboratory Results - last 24 hr 10/07/17 10/08/17 10/08/17 17:30 12:54 15:48 WBC RBC Hgb Hct MCV MCH MCHC RDW Plt Count MPV Neutrophils % Lymphocytes % Sodium Potassium Chloride Carbon Dioxide Anion Gap BUN Creatinine Creat Clearance w eGFR POC Glucometer 185.57578 141.67672 Random Glucose Calcium Phosphorus Magnesium Total Bilirubin AST ALT Alkaline Phosphatase Total Protein Albumin Hepatitis A Ab Total Negative Hep Bs Antigen Negative Hep Bs Antibody Non reactive Hep B Core Total Ab Negative Hep C Ab Diagnostic <0.1 Liver Fibrosis Interp 10/08/17 10/09/17 10/09/17 22:08 05:50 05:50 WBC 13.5 H RBC 2.44 L Hgb 7.3 L D Hct 22.2 L MCV 90.9 MCH 30.0 MCHC 33.0 RDW 16.4 H Plt Count 293 MPV 9.4 Neutrophils % No Result Required. Lymphocytes % No Result Required. Sodium 144 Potassium 4.3 Chloride 106 Carbon Dioxide 30 Anion Gap 8 BUN 52 H D Creatinine 2.6 H Creat Clearance w eGFR 23.99 POC Glucometer [phone] Random Glucose 174 H D Calcium 7.3 L Phosphorus 4.1 Magnesium 2.1 Total Bilirubin 0.2 D AST 40 H ALT 21 Alkaline Phosphatase 91 Total Protein 4.1 L Albumin 1.1 L Hepatitis A Ab Total Hep Bs Antigen Hep Bs Antibody Hep B Core Total Ab Hep C Ab Diagnostic Liver Fibrosis Interp 10/09/17 06:41 WBC RBC Hgb Hct MCV MCH MCHC RDW Plt Count MPV Neutrophils % Lymphocytes % Sodium Potassium Chloride Carbon Dioxide Anion Gap BUN Creatinine Creat Clearance w eGFR POC Glucometer 183.05892 Random Glucose Calcium Phosphorus Magnesium Total Bilirubin AST ALT Alkaline Phosphatase Total Protein Albumin Hepatitis A Ab Total Hep Bs Antigen Hep Bs Antibody Hep B Core Total Ab Hep C Ab Diagnostic Liver Fibrosis Interp ASSESSMENT AND PLAN: Acute Hypoxic Respiratory Failure Pneumonia Septic Shock Acute on Chronic Renal Failure Lactic Acidosis Diabetic Ketoacidosis improving Paroxysmal Atrial Fibrillation with RVR HTN DM COPD r/o Critical Illness Myopathy/Polyneuropathy - continue antibiotics - HD per renal - monitor urine output, creatinine - monitor I/Os - glucose control - rate control - anticoagulation per cardiology - taper FiO2 to keep SpO2 >90% - PMR for EMG - daily sedation vacations and spontaneous breathing trials as tolerated - enteral feeds - DVT/GI prophylaxis Dr Acosta Critical care time spent in reviewing chart, evaluating patient and formulating plan 36 min
--- NOTE | 2017-10-09 11:23 | PN ---
Progress Note, Physician History of Present Illness: No CV events overnight Tele NSR 80s - Current Medication List Current Medications: Active Medications Acetaminophen (Tylenol -) 650 mg PO Q6H PRN PRN Reason: FEVER Last Admin: 10/09/17 04:00 Dose: 650 mg Aspirin (Asa -) 81 mg PO DAILY [facility] Last Admin: 10/08/17 09:46 Dose: 81 mg Chlorhexidine Gluconate (Hibiclens For Decolonization -) 1 applic TP HS [facility] Last Admin: 10/09/17 00:21 Dose: 1 applic Diltiazem HCl (Cardizem -) 90 mg PO Q6HPO [facility] Last Admin: 10/09/17 05:43 Dose: Not Given Heparin Sodium (Porcine) (Heparin -) 5,000 unit SQ BID [facility] Last Admin: 10/09/17 00:00 Dose: 5,000 unit Azithromycin 500 mg/ Dextrose 250 mls @ 250 mls/hr IVPB DAILY [facility] Last Admin: 10/08/17 10:05 Dose: 250 mls/hr Piperacillin Sod/Tazobactam (Sod 2.25 gm/ Dextrose) 50 mls @ 100 mls/hr IVPB Q8H-IV [facility] Last Admin: 10/09/17 02:42 Dose: 100 mls/hr Propofol (Diprivan -) 1,000,000 mcg in 100 mls @ 3.388 mls/hr IVPB TITR [facility]; 10 MCG/KG/MIN PRN Reason: Protocol Last Titration: 10/09/17 08:20 Dose: 0 mcg/kg/min, 0 mls/hr Dextrose (D10w -) 1,000 mls @ 42 mls/hr IV [facility] Last Admin: 10/09/17 05:48 Dose: Not Given Phenylephrine HCl 20,000 mcg/ (Sodium Chloride) 250 mls @ 75 mls/hr IVPB ASDIR [facility]; 100 MCG/MIN PRN Reason: Protocol Last Admin: 10/08/17 22:00 Dose: 25 mcg/min, 18.75 mls/hr Sodium Chloride (Normal Saline -) 250 mls @ 3,000 mls/hr IV PRN PRN PRN Reason: Hypotension during Dialysis Stop: 10/09/17 09:44 Insulin Aspart (Novolog Vial Sliding Scale -) 1 vial SQ ACHS [facility] PRN Reason: Protocol Last Admin: 10/09/17 06:59 Dose: 8 units Insulin Detemir (Levemir Vial) 12 units SQ HS [facility] Last Admin: 10/09/17 00:21 Dose: 12 units Metoprolol Tartrate (Lopressor Injection -) 5 mg IVPUSH Q4H PRN PRN Reason: TACHYCARDIA Last Admin: 10/05/17 17:49 Dose: 5 mg Midazolam HCl (Versed -) 2 mg IVPUSH Q2H PRN PRN Reason: AGITATION Last Admin: 10/04/17 01:14 Dose: 2 mg Pantoprazole Sodium (Protonix Iv) 40 mg IVPUSH DAILY [facility] Last Admin: 10/08/17 09:46 Dose: 40 mg - Objective Vital Signs: Vital Signs Temperature 99.0 F 10/09/17 10:00 Pulse Rate 86 10/09/17 10:00 Respiratory Rate 17 10/09/17 10:00 Blood Pressure 115/51 10/09/17 10:00 O2 Sat by Pulse Oximetry (%) 99 10/09/17 00:43 Constitutional: Yes: Calm, Other (Intubated) Eyes: Yes: WNL HENT: Yes: WNL Neck: Yes: WNL Cardiovascular: Yes: Regular Rate and Rhythm, Murmur Respiratory: Yes: CTA Bilaterally Gastrointestinal: Yes: WNL Extremities: Yes: WNL Edema: No Labs: CBC, BMP 10/09/17 05:50 10/09/17 05:50 INR, PTT INR 1.09 (0.82-1.09) 10/06/17 14:10 Assessment/Plan 76 yo with pmhx of htn, hl, pad, afib (not on AC due to GIB), cva (no residual deficits), copd, dm, mgus, esthesioneuroblastoma treated with radiation therapy , chronic anemia s/p recent GIB admitted with dka, sepsis, resp failure. Hospital course now complicated by episode of afib with rvr afib - not previously a candidate for AC b/c of prior hx of GIB. remains anemic. - s/p IV amio. started po dilt 10/05. now back in sr. hr controlled. - lyte repletion prn. - 10/07: initiated HD this evening and subsequently went into RVR with HR's in the 140's. sbp's dropped into 70's. Patient was restarted on neosynephrine and given one time dose of 150 mg of amiodarone --> conversion to normal rhythm. Will uptitrate po dilt to 90 q6h and wean off pressors. starting ASA today. - 10/08: slight hgb drop on asa. iron studies notes. con't to monitor hgb. Consider discussing again candidacy for AC once hemodynamically stable, given patient is high risk for stroke (with h/o prior cva). Improved HR control on increased dilt, con't -10/09: in NSR 80s today. Hgb 7.3 today. Would follow Hgb closely and transfuse as needed per ICU care team htn - anti-htn regimen had been held b/c of hypotension/sepsis. Diltiazem started for rate control. - 10/08: required resumption of pressors yesterday evening. con't on diltiazem for rate control. -10/09: Remains on Phenylephrine, BP low 100s. cva/pad - con't statin. per pmd, previously not a candidate for asa due to recent gib and anemia. Discussed again with pmd today. started trial of ASA 10/07. will monitor hgb. iron studies noted. mild asc ao dilation - can consider switching to beta car once resp issues resolve. dka/sepsis/resp failure - ongoing mgm't per pmd/pulm/id SHANTA - renal following, no sig improvement --> initiated HD 10/07. anemia - as above.
[2017-10-09 11:26] LABS: PLATELET ESTIMATE NORMAL
[2017-10-09] MEDS: PROPOFOL 1,000,000 MCG/100 ML VIAL IVPB SCH (11:28)
[2017-10-09] MEDS: AZITHROMYCIN IVPB 500 MG in DEXTROSE 5%-WATER - 250 ML IVPB SCH (11:30)
[2017-10-09] MEDS: PHENYLEPHRINE HCL 20,000 MCG in SODIUM CHLORIDE 248 ML IVPB SCH ×2 (11:32→19:51)
[2017-10-09] MEDS: PANTOPRAZOLE SODIUM 40 MG VIAL IVPUSH SCH (11:32)
[2017-10-09] MEDS: ASPIRIN 81 MG CHEWABLE TABLETS PO SCH (11:37)
[2017-10-09] MEDS: HEPARIN NA (PORCINE) 5,000 UNITS/ML 1ML VIAL SQ SCH ×3 (11:38→21:18)
--- NOTE | 2017-10-09 11:42 | PN ---
Progress Note, Physician History of Present Illness: Remains intubated, awake, not in distress. - Current Medication List Current Medications: Active Medications Acetaminophen (Tylenol -) 650 mg PO Q6H PRN PRN Reason: FEVER Last Admin: 10/09/17 04:00 Dose: 650 mg Aspirin (Asa -) 81 mg PO DAILY [facility] Last Admin: 10/08/17 09:46 Dose: 81 mg Chlorhexidine Gluconate (Hibiclens For Decolonization -) 1 applic TP HS [facility] Last Admin: 10/09/17 00:21 Dose: 1 applic Diltiazem HCl (Cardizem -) 90 mg PO Q6HPO [facility] Last Admin: 10/09/17 05:43 Dose: Not Given Heparin Sodium (Porcine) (Heparin -) 5,000 unit SQ BID [facility] Last Admin: 10/09/17 00:00 Dose: 5,000 unit Azithromycin 500 mg/ Dextrose 250 mls @ 250 mls/hr IVPB DAILY [facility] Last Admin: 10/08/17 10:05 Dose: 250 mls/hr Piperacillin Sod/Tazobactam (Sod 2.25 gm/ Dextrose) 50 mls @ 100 mls/hr IVPB Q8H-IV [facility] Last Admin: 10/09/17 02:42 Dose: 100 mls/hr Propofol (Diprivan -) 1,000,000 mcg in 100 mls @ 3.388 mls/hr IVPB TITR [facility]; 10 MCG/KG/MIN PRN Reason: Protocol Last Titration: 10/09/17 11:28 Dose: 20 mcg/kg/min, 6.777 mls/hr Dextrose (D10w -) 1,000 mls @ 42 mls/hr IV ASDIR [facility] Last Admin: 10/09/17 05:48 Dose: Not Given Phenylephrine HCl 20,000 mcg/ (Sodium Chloride) 250 mls @ 75 mls/hr IVPB ASDIR [facility]; 100 MCG/MIN PRN Reason: Protocol Last Admin: 10/08/17 22:00 Dose: 25 mcg/min, 18.75 mls/hr Sodium Chloride (Normal Saline -) 250 mls @ 3,000 mls/hr IV PRN PRN PRN Reason: Hypotension during Dialysis Stop: 10/09/17 09:44 Insulin Aspart (Novolog Vial Sliding Scale -) 1 vial SQ ACHS [facility] PRN Reason: Protocol Last Admin: 10/09/17 06:59 Dose: 8 units Insulin Detemir (Levemir Vial) 12 units SQ HS [facility] Last Admin: 10/09/17 00:21 Dose: 12 units Metoprolol Tartrate (Lopressor Injection -) 5 mg IVPUSH Q4H PRN PRN Reason: TACHYCARDIA Last Admin: 10/05/17 17:49 Dose: 5 mg Midazolam HCl (Versed -) 2 mg IVPUSH Q2H PRN PRN Reason: AGITATION Last Admin: 10/04/17 01:14 Dose: 2 mg Pantoprazole Sodium (Protonix Iv) 40 mg IVPUSH DAILY [facility] Last Admin: 10/08/17 09:46 Dose: 40 mg - Objective Vital Signs: Vital Signs Temperature 99.0 F 10/09/17 10:00 Pulse Rate 86 10/09/17 10:00 Respiratory Rate 17 10/09/17 10:00 Blood Pressure 115/51 10/09/17 10:00 O2 Sat by Pulse Oximetry (%) 99 10/09/17 00:43 Constitutional: Yes: Other (intubated, awake) HENT: Yes: Other (Orotracheal tube) Cardiovascular: Yes: Regular Rate and Rhythm, S1, S2 Respiratory: Yes: Mechanically Ventilated Gastrointestinal: Yes: Normal Bowel Sounds, Soft. No: Distention, Tenderness Edema: Yes Edema: LUE: 1+, RUE: 1+ Neurological: Yes: Alert Labs: CBC, BMP 10/09/17 05:50 10/09/17 05:50 INR, PTT INR 1.09 (0.82-1.09) 10/06/17 14:10 Assessment/Plan Current Active Problems Sepsis Pneumonia DKA (diabetic ketoacidoses) (Acute) Acute Respiratory Failure Acute Renal Failure SVT, PAF Chronic Anemia h/o CVA COPD Diabetes mellitus (Chronic) -cont vent support (daily weaning trials) -on dialysis treatments -abx for pneumonia -cardizem for Afib
--- NOTE | 2017-10-09 13:50 | PN ---
Progress Note (short form) - Note Progress Note: icu covering dr witt copd ig bleed diverticulosis steve/atn/sepsis s/p hd x 2 diverticulosis hld cva intussusception htn sinus ca s/p excision Current Medications Acetaminophen (Tylenol -) 650 mg PO Q6H PRN PRN Reason: FEVER Last Admin: 10/09/17 04:00 Dose: 650 mg Aspirin (Asa -) 81 mg PO DAILY [facility] Last Admin: 10/09/17 11:37 Dose: 81 mg Chlorhexidine Gluconate (Hibiclens For Decolonization -) 1 applic TP HS [facility] Last Admin: 10/09/17 00:21 Dose: 1 applic Diltiazem HCl (Cardizem -) 90 mg PO Q6HPO [facility] Last Admin: 10/09/17 11:36 Dose: 90 mg Heparin Sodium (Porcine) (Heparin -) 5,000 unit SQ BID [facility] Last Admin: 10/09/17 11:38 Dose: 5,000 unit Azithromycin 500 mg/ Dextrose 250 mls @ 250 mls/hr IVPB DAILY [facility] Last Admin: 10/09/17 11:30 Dose: 250 mls/hr Piperacillin Sod/Tazobactam (Sod 2.25 gm/ Dextrose) 50 mls @ 100 mls/hr IVPB Q8H-IV [facility] Last Admin: 10/09/17 11:30 Dose: 100 mls/hr Propofol (Diprivan -) 1,000,000 mcg in 100 mls @ 3.388 mls/hr IVPB TITR [facility]; 10 MCG/KG/MIN PRN Reason: Protocol Last Titration: 10/09/17 11:28 Dose: 20 mcg/kg/min, 6.777 mls/hr Dextrose (D10w -) 1,000 mls @ 42 mls/hr IV ASDIR [facility] Last Admin: 10/09/17 05:48 Dose: Not Given Phenylephrine HCl 20,000 mcg/ (Sodium Chloride) 250 mls @ 75 mls/hr IVPB ASDIR [facility]; 100 MCG/MIN PRN Reason: Protocol Last Admin: 10/09/17 11:32 Dose: 25 mcg/min, 18.75 mls/hr Sodium Chloride (Normal Saline -) 250 mls @ 3,000 mls/hr IV PRN PRN PRN Reason: Hypotension during Dialysis Stop: 10/09/17 09:44 Insulin Aspart (Novolog Vial Sliding Scale -) 1 vial SQ ACHS [facility] PRN Reason: Protocol Last Admin: 10/09/17 11:38 Dose: Not Given Insulin Detemir (Levemir Vial) 12 units SQ HS [facility] Last Admin: 10/09/17 00:21 Dose: 12 units Metoprolol Tartrate (Lopressor Injection -) 5 mg IVPUSH Q4H PRN PRN Reason: TACHYCARDIA Last Admin: 10/05/17 17:49 Dose: 5 mg Midazolam HCl (Versed -) 2 mg IVPUSH Q2H PRN PRN Reason: AGITATION Last Admin: 10/04/17 01:14 Dose: 2 mg Pantoprazole Sodium (Protonix Iv) 40 mg IVPUSH DAILY [facility] Last Admin: 10/09/17 11:32 Dose: 40 mg Last Vital Signs Temp Pulse Resp BP Pulse Ox 99.0 F 83 17 111/40 98 10/09/17 10:00 10/09/17 12:44 10/09/17 12:40 10/09/17 12:00 10/09/17 12:44 on vent sedated lungs vented, rhonchi throughout heart reg abd soft no guarding ext no edema CBC, BMP 10/09/17 05:50 10/09/17 05:50 IMP-steve on hd severe anemia sepsis hypotension with sedation plan- hd on wednesday if not recovering renal function
--- NOTE | 2017-10-09 14:36 | PN ---
Progress Note (short form) - Note Progress Note: Intubated, on Propofol today Eyes open, in NAD On tube feeding Vital Signs Period Temp Pulse Resp BP Sys/Sy Pulse Ox Last 24 Hr 97.8 F-99.3 F 80-985 15-29 94-119/40-67 98-99 PE: Eyes open, awake, Neck: supple Lungs: few rhonchi CVS: S1S2 Abd: Benign Ext: No edema Neuro: Awake, open eyes, CMP Sodium 144 mmol/L (136-145) 10/09/17 05:50 Potassium 4.3 mmol/L (3.5-5.1) 10/09/17 05:50 Chloride 106 mmol/L (98-107) 10/09/17 05:50 Carbon Dioxide 30 mmol/L (21-32) 10/09/17 05:50 Anion Gap 8 (8-16) 10/09/17 05:50 BUN 52 mg/dL (7-18) H D 10/09/17 05:50 Creatinine 2.6 mg/dL (0.7-1.3) H 10/09/17 05:50 Creat Clearance w eGFR 23.99 (>60) 10/09/17 05:50 POC Glucometer 183.70196 UNITS (80-120) 10/09/17 06:41 Random Glucose 174 mg/dL (74-106) H D 10/09/17 05:50 Hemoglobin A1c % 8.5 % (4.8-6.0) H D 10/04/17 06:00 Lactic Acid 2.0 mmol/L (0.0-2.0) 10/03/17 12:00 Calcium 7.3 mg/dL (8.5-10.1) L 10/09/17 05:50 Phosphorus 4.1 mg/dL (2.5-4.9) 10/09/17 05:50 Magnesium 2.1 mg/dL (1.8-2.4) 10/09/17 05:50 Iron 22 ug/dL (38-169) L 10/06/17 05:50 Ferritin 202.816 ng/ml (16.4-293.9) 10/06/17 05:50 Total Bilirubin 0.2 mg/dL (0.2-1.0) D 10/09/17 05:50 AST 40 U/L (15-37) H 10/09/17 05:50 ALT 21 U/L (12-78) 10/09/17 05:50 Alkaline Phosphatase 91 U/L (45-117) 10/09/17 05:50 Total Protein 4.1 g/dl (6.4-8.2) L 10/09/17 05:50 Albumin 1.1 g/dl (3.4-5.0) L 10/09/17 05:50 Vitamin B12 1602 pg/ml (180-914) H 10/06/17 05:50 Serum Folate 23 ng/ml (3.1-17.5) H 10/06/17 05:50 Current Medications Generic Name Dose Route Start Last Admin Trade Name Freq PRN Reason Stop Dose Admin Acetaminophen 650 mg 10/09/17 05:40 10/09/17 04:00 Tylenol - PO 650 mg Q6H PRN Administration FEVER Aspirin 81 mg 10/07/17 10:30 10/09/17 11:37 Asa - PO 81 mg DAILY [facility] Administration Chlorhexidine Gluconate 1 applic 10/03/17 22:00 10/09/17 00:21 Hibiclens For Decolonization - TP 1 applic HS [facility] Administration Diltiazem HCl 90 mg 10/07/17 19:45 10/09/17 11:36 Cardizem - PO 90 mg Q6HPO [facility] Administration Heparin Sodium (Porcine) 5,000 unit 10/03/17 10:00 10/09/17 11:38 Heparin - SQ 5,000 unit BID [facility] Administration Azithromycin 500 mg/ Dextrose 250 mls @ 250 mls/hr 10/04/17 10:00 10/09/17 11 :30 IVPB 250 mls/hr DAILY [facility] Administration Piperacillin Sod/Tazobactam 50 mls @ 100 mls/hr 10/03/17 18:00 10/09/17 11:30 Sod 2.25 gm/ Dextrose IVPB 100 mls/hr Q8H-IV [facility] Administration Propofol 1,000,000 mcg in 100 mls @ 3.388 mls/hr 10/04/17 09:15 10/09/17 11: 28 Diprivan - IVPB 20 mcg/kg/min TITR [facility] 6.777 mls/hr Protocol Titration 10 MCG/KG/MIN Dextrose 1,000 mls @ 42 mls/hr 10/06/17 18:45 10/09/17 05:48 D10w - IV Not Given ASDIR [facility] Phenylephrine HCl 20,000 mcg/ 250 mls @ 75 mls/hr 10/07/17 19:00 10/09/17 11: 32 Sodium Chloride IVPB 25 mcg/min ASDIR [facility] 18.75 mls/hr Protocol Administration 100 MCG/MIN Sodium Chloride 250 mls @ 3,000 mls/hr 10/08/17 09:44 Normal Saline - IV 10/09/17 09:44 PRN PRN Hypotension during Dialysis Insulin Aspart 1 vial 10/07/17 11:57 10/09/17 11:38 Novolog Vial Sliding Scale - SQ Not Given ACHS [facility] Protocol Insulin Detemir 12 units 10/07/17 22:00 10/09/17 00:21 Levemir Vial SQ 12 units HS [facility] Administration Metoprolol Tartrate 5 mg 10/03/17 19:00 10/05/17 17:49 Lopressor Injection - IVPUSH 5 mg Q4H PRN Administration TACHYCARDIA Midazolam HCl 2 mg 10/03/17 14:35 10/04/17 01:14 Versed - IVPUSH 2 mg Q2H PRN Administration AGITATION Pantoprazole Sodium 40 mg 10/05/17 14:45 10/09/17 11:32 Protonix Iv IVPUSH 40 mg DAILY [facility] Administration AP; Acute Hypoxic Respiratory Failure Pneumonia Septic Shock DM with Acidosis ? DKA,?Lactic acidosis Acute on Chronic Renal Failure Paroxysmal Atrial Fibrillation with RVR HTN COPD BGM Q6 hr Continue Levemir 12 units daily Novolog coverage continue antibiotics Tube feeding as tolerated Chart reviewed Start D10W at 42 ml/hr if tube feeding is held or discontinued for any reason until pt is able to eat. Should be on long acting Insulin for now On Phenyephrine for pressor support Will F/U
--- NOTE | 2017-10-09 15:13 | PN ---
Progress Note, Physician History of Present Illness: Pt seen and examined. Remains intubated, on vasopressors. - Current Medication List Current Medications: Active Medications Acetaminophen (Tylenol -) 650 mg PO Q6H PRN PRN Reason: FEVER Last Admin: 10/09/17 04:00 Dose: 650 mg Aspirin (Asa -) 81 mg PO DAILY [facility] Last Admin: 10/09/17 11:37 Dose: 81 mg Chlorhexidine Gluconate (Hibiclens For Decolonization -) 1 applic TP HS [facility] Last Admin: 10/09/17 00:21 Dose: 1 applic Diltiazem HCl (Cardizem -) 90 mg PO Q6HPO [facility] Last Admin: 10/09/17 11:36 Dose: 90 mg Heparin Sodium (Porcine) (Heparin -) 5,000 unit SQ BID [facility] Last Admin: 10/09/17 11:38 Dose: 5,000 unit Azithromycin 500 mg/ Dextrose 250 mls @ 250 mls/hr IVPB DAILY [facility] Last Admin: 10/09/17 11:30 Dose: 250 mls/hr Piperacillin Sod/Tazobactam (Sod 2.25 gm/ Dextrose) 50 mls @ 100 mls/hr IVPB Q8H-IV [facility] Last Admin: 10/09/17 11:30 Dose: 100 mls/hr Propofol (Diprivan -) 1,000,000 mcg in 100 mls @ 3.388 mls/hr IVPB TITR [facility]; 10 MCG/KG/MIN PRN Reason: Protocol Last Titration: 10/09/17 11:28 Dose: 20 mcg/kg/min, 6.777 mls/hr Dextrose (D10w -) 1,000 mls @ 42 mls/hr IV ASDIR [facility] Last Admin: 10/09/17 05:48 Dose: Not Given Phenylephrine HCl 20,000 mcg/ (Sodium Chloride) 250 mls @ 75 mls/hr IVPB ASDIR [facility]; 100 MCG/MIN PRN Reason: Protocol Last Admin: 10/09/17 11:32 Dose: 25 mcg/min, 18.75 mls/hr Sodium Chloride (Normal Saline -) 250 mls @ 3,000 mls/hr IV PRN PRN PRN Reason: Hypotension during Dialysis Stop: 10/09/17 09:44 Insulin Aspart (Novolog Vial Sliding Scale -) 1 vial SQ ACHS [facility] PRN Reason: Protocol Last Admin: 10/09/17 11:38 Dose: Not Given Insulin Detemir (Levemir Vial) 12 units SQ HS [facility] Last Admin: 10/09/17 00:21 Dose: 12 units Metoprolol Tartrate (Lopressor Injection -) 5 mg IVPUSH Q4H PRN PRN Reason: TACHYCARDIA Last Admin: 10/05/17 17:49 Dose: 5 mg Midazolam HCl (Versed -) 2 mg IVPUSH Q2H PRN PRN Reason: AGITATION Last Admin: 10/04/17 01:14 Dose: 2 mg Pantoprazole Sodium (Protonix Iv) 40 mg IVPUSH DAILY [facility] Last Admin: 10/09/17 11:32 Dose: 40 mg - Objective Vital Signs: Vital Signs Temperature 99.0 F 10/09/17 10:00 Pulse Rate 83 10/09/17 12:44 Respiratory Rate 17 10/09/17 12:40 Blood Pressure 111/40 10/09/17 12:00 O2 Sat by Pulse Oximetry (%) 98 10/09/17 12:44 Constitutional: Yes: No Distress Cardiovascular: Yes: Regular Rate and Rhythm Respiratory: Yes: Regular, Mechanically Ventilated Gastrointestinal: Yes: Normal Bowel Sounds, Soft Genitourinary: Yes: [place] Present Extremities: Yes: Cyanosis (Lt toes) Neurological: Yes: Other (sedated) Labs: CBC, BMP 10/09/17 05:50 10/09/17 05:50 INR, PTT INR 1.09 (0.82-1.09) 10/06/17 14:10 Microbiology 10/02/17 23:39 Blood - Peripheral Venous Blood Culture - Final NO GROWTH AFTER 5 DAYS INCUBATION 10/02/17 23:39 Blood - Peripheral Venous Blood Culture - Final NO GROWTH AFTER 5 DAYS INCUBATION 10/03/17 11:01 Sputum - Endotrachea Suction/Ventilator Gram Stain - Final 10/03/17 11:01 Sputum - Endotrachea Suction/Ventilator Sputum Culture - Final Staphylococcus Aureus 10/03/17 06:36 Urine - Urine Clean Catch Urine Culture - Final NO GROWTH OBTAINED 10/03/17 14:00 Urine For Antigen Detection Legionella Antigen - Final 10/03/17 14:00 Urine For Antigen Detection Streptococcus pneumoniae Antigen (M - Final Problem List - Problems (1) DKA (diabetic ketoacidoses) Code(s): E13.10 - OTH DIABETES MELLITUS WITH KETOACIDOSIS WITHOUT COMA (2) Diabetes mellitus Code(s): E11.9 - TYPE 2 DIABETES MELLITUS WITHOUT COMPLICATIONS (3) SHANTA (acute kidney injury) Code(s): N17.9 - ACUTE KIDNEY FAILURE, UNSPECIFIED (4) Anemia Code(s): D64.9 - ANEMIA, UNSPECIFIED Qualifiers: Other causes of anemia: acute posthemorrhagic (5) Aortic aneurysm Code(s): I71.9 - AORTIC ANEURYSM OF UNSPECIFIED SITE, WITHOUT RUPTURE Qualifiers: Aortic location: thoracic aorta Presence of rupture: without rupture Qualified Code(s): I71.2 - Thoracic aortic aneurysm, without rupture (6) Pneumonia Code(s): J18.9 - PNEUMONIA, UNSPECIFIED ORGANISM (7) CKD (chronic kidney disease) Code(s): N18.9 - CHRONIC KIDNEY DISEASE, UNSPECIFIED (8) History of stroke Code(s): Z86.73 - PRSNL HX OF TIA (TIA), AND CEREB INFRC W/O RESID DEFICITS Assessment/Plan 76 year old male with a significant past medical history of COPD, GI bleed, diverticulosis, HLD, CVA, intussusception, umbilical hernia, DM, HTN, sinus cancer with excision and polypectomy Acute Hypoxic Respiratory Failure/intubated Pneumonia Septic Shock Acute on Chronic Renal Failure Lactic Acidosis Diabetic Ketoacidosis improving HTN DM COPD -- continue current antibiotics -- wbc decreasing -- Tmax 99.3F, continue monitor pt remains intubated, on vasopressors cc: 40 min
[2017-10-10] MEDS ORDERED: PT OWN MED DRAWER 7, Y5N ONE ×2 (00:38→08:04)
[2017-10-10] MEDS: dilTIAZem HCL 30 MG TABLET (FP) PO SCH ×4 (00:41→17:40)
[2017-10-10] MEDS: PIPERACILLIN/TAZOB 2.25 GM 2.25 GM in DEXTROSE 5%-WATER - 50 ML IVPB SCH ×3 (01:08→17:41)
[2017-10-10] MEDS: INSULIN SLIDING SCALE (NOVOLOG) 1 VIAL SQ SCH ×4 (06:14→21:13)
[2017-10-10 06:50] LABS: HEMATOCRIT 22.2 % (35.4-49); HEMOGLOBIN 7.4 GM/dL (11.7-16.9); MCH 30.4 pg (25.7-33.7); MCHC 33.2 g/dl (32.0-35.9); MEAN CELL VOLUME 91.5 fl (80-96); MEAN PLT VOLUME 9.1 fl (7.5-11.1); PLATELET COUNT 339 K/MM3 (134-434); RBC 2.42 M/mm3 (4.00-5.60); RDW 16.5 % (11.9-15.9); WHITE BLOOD COUNT 14.6 K/mm3 (4.0-10.0)
[2017-10-10 07:31] LABS: ANION GAP 7 (8-16); BLOOD UREA NITROGEN 66 mg/dL (7-18); CHLORIDE 105 mmol/L (98-107); CO2 29 mmol/L (21-32); CREATININE 3.3 mg/dL (0.7-1.3); GLUCOSE,RANDOM 153 mg/dL (74-106); SGOT/AST 33 U/L (15-37); SGPT/ALT 21 U/L (12-78); SODIUM 141 mmol/L (136-145)
[2017-10-10 07:36] LABS: ALK PHOS 86 U/L (45-117); BILIRUBIN,TOTAL 0.1 mg/dL (0.2-1.0); TOT PROT 4.2 g/dl (6.4-8.2)
[2017-10-10 07:39] LABS: CALCIUM 6.8 mg/dL (8.5-10.1)
[2017-10-10] MEDS ORDERED: PIPERACILLIN/TAZOBACTAM 2.25 GM VIAL IVPB ONE ×2 (08:05→17:22)
[2017-10-10] MEDS ORDERED: DEXTROSE 5%-WATER - 50 ML IVPB ONE ×2 (08:05→17:22)
--- NOTE | 2017-10-10 09:34 | PN ---
Progress Note (short form) - Note Progress Note: Patient seen and examined in the ICU. Remains intubated, awake off sedation. Remains on Phenylephrine for hemodynamic support. AC Mode of vent, 40% FiO2. CXR: No gross change in the right base OBJECTIVE: Intake & Output 10/07/17 10/08/17 10/09/17 10/10/17 23:59 23:59 23:59 23:59 Intake Total 1168.4 1759 743.8 303 Output Total 650 550 500 Balance 518.4 1209 243.8 303 Weight 135 lb 6.4 oz 133 lb 9.602 oz 141 lb 12.8 oz Last Vital Signs Temp Pulse Resp BP Pulse Ox 98 F 80 20 109/62 97 10/10/17 06:00 10/10/17 08:00 10/10/17 09:00 10/10/17 08:00 10/10/17 09:16 Active Medications Acetaminophen (Tylenol -) 650 mg PO Q6H PRN PRN Reason: FEVER Last Admin: 10/09/17 04:00 Dose: 650 mg Aspirin (Asa -) 81 mg PO DAILY [facility] Last Admin: 10/09/17 11:37 Dose: 81 mg Chlorhexidine Gluconate (Hibiclens For Decolonization -) 1 applic TP HS [facility] Last Admin: 10/09/17 21:18 Dose: 1 applic Diltiazem HCl (Cardizem -) 90 mg PO Q6HPO [facility] Last Admin: 10/10/17 06:14 Dose: 90 mg Heparin Sodium (Porcine) (Heparin -) 5,000 unit SQ BID [facility] Last Admin: 10/09/17 21:18 Dose: 5,000 unit Azithromycin 500 mg/ Dextrose 250 mls @ 250 mls/hr IVPB DAILY [facility] Last Admin: 10/09/17 11:30 Dose: 250 mls/hr Piperacillin Sod/Tazobactam (Sod 2.25 gm/ Dextrose) 50 mls @ 100 mls/hr IVPB Q8H-IV [facility] Last Admin: 10/10/17 01:08 Dose: 100 mls/hr Propofol (Diprivan -) 1,000,000 mcg in 100 mls @ 3.388 mls/hr IVPB TITR [facility]; 10 MCG/KG/MIN PRN Reason: Protocol Last Titration: 10/09/17 19:00 Dose: 25 mcg/kg/min, 8.471 mls/hr Dextrose (D10w -) 1,000 mls @ 42 mls/hr IV ASDIR [facility] Last Admin: 10/09/17 19:52 Dose: Not Given Phenylephrine HCl 20,000 mcg/ (Sodium Chloride) 250 mls @ 75 mls/hr IVPB ASDIR [facility]; 100 MCG/MIN PRN Reason: Protocol Last Admin: 10/09/17 19:51 Dose: Not Given Sodium Chloride (Normal Saline -) 250 mls @ 3,000 mls/hr IV PRN PRN PRN Reason: Hypotension during Dialysis Stop: 10/09/17 09:44 Insulin Aspart (Novolog Vial Sliding Scale -) 1 vial SQ ACHS [facility] PRN Reason: Protocol Last Admin: 10/10/17 06:14 Dose: 6 units Insulin Detemir (Levemir Vial) 12 units SQ HS [facility] Last Admin: 10/09/17 21:18 Dose: 12 units Metoprolol Tartrate (Lopressor Injection -) 5 mg IVPUSH Q4H PRN PRN Reason: TACHYCARDIA Last Admin: 10/05/17 17:49 Dose: 5 mg Midazolam HCl (Versed -) 2 mg IVPUSH Q2H PRN PRN Reason: AGITATION Last Admin: 10/04/17 01:14 Dose: 2 mg Pantoprazole Sodium (Protonix Iv) 40 mg IVPUSH DAILY [facility] Last Admin: 10/09/17 11:32 Dose: 40 mg Gen: intubated, awake Heart: RRR Lung: scattered rhonchi Abd: soft, nontender Ext: left foot dusky Laboratory Results - last 24 hr 10/09/17 10/09/17 10/09/17 05:50 06:00 21:14 WBC RBC Hgb Hct MCV MCH MCHC RDW Plt Count MPV Total Counted 98 Neutrophils % (Manual) 82.7 Band Neutrophils % 2.0 Lymphocytes % (Manual) 1.0 L D Monocytes % (Manual) 10 D Eosinophils % (Manual) 2.1 D Basophils % (Manual) 0.0 Myelocytes % (Man) 2 D Promyelocytes % (Man) 0 Blast Cells % (Manual) 0 Nucleated RBC % 0 Metamyelocytes 0 Platelet Estimate Normal Sodium Potassium Chloride Carbon Dioxide Anion Gap BUN Creatinine Creat Clearance w eGFR POC Glucometer [phone] Random Glucose Calcium Total Bilirubin AST ALT Alkaline Phosphatase Total Protein Albumin Stool Occult Blood Negative 10/10/17 10/10/17 10/10/17 05:50 05:50 05:52 WBC 14.6 H RBC 2.42 L Hgb 7.4 L Hct 22.2 L MCV 91.5 MCH 30.4 MCHC 33.2 RDW 16.5 H Plt Count 339 MPV 9.1 Total Counted Neutrophils % (Manual) Band Neutrophils % Lymphocytes % (Manual) Monocytes % (Manual) Eosinophils % (Manual) Basophils % (Manual) Myelocytes % (Man) Promyelocytes % (Man) Blast Cells % (Manual) Nucleated RBC % Metamyelocytes Platelet Estimate Sodium 141 Potassium 5.0 Chloride 105 Carbon Dioxide 29 Anion Gap 7 L BUN 66 H D Creatinine 3.3 H D Creat Clearance w eGFR 18.22 POC Glucometer [phone] Random Glucose 153 H Calcium 6.8 L* Total Bilirubin 0.1 L D AST 33 ALT 21 Alkaline Phosphatase 86 Total Protein 4.2 L Albumin 1.0 L Stool Occult Blood ASSESSMENT AND PLAN: Acute Hypoxic Respiratory Failure Pneumonia Septic Shock Acute on Chronic Renal Failure Lactic Acidosis Diabetic Ketoacidosis improving Paroxysmal Atrial Fibrillation with RVR HTN DM COPD r/o Critical Illness Myopathy/Polyneuropathy Left foot hypoperfusion likely due to pressors - Decrease pressors - continue antibiotics - HD per renal - monitor urine output, creatinine - monitor I/Os - glucose control - rate control - anticoagulation per cardiology - taper FiO2 to keep SpO2 >90% - PMR for EMG - daily sedation vacations and spontaneous breathing trials as tolerated - enteral feeds - DVT/GI prophylaxis Dr Acosta Critical care time spent in reviewing chart, evaluating patient and formulating plan 36 min
[2017-10-10] MEDS: PROPOFOL 1,000,000 MCG/100 ML VIAL IVPB SCH (09:57)
[2017-10-10] MEDS: AZITHROMYCIN IVPB 500 MG in DEXTROSE 5%-WATER - 250 ML IVPB SCH (09:58)
[2017-10-10] MEDS: PANTOPRAZOLE SODIUM 40 MG VIAL IVPUSH SCH (09:59)
[2017-10-10] MEDS: HEPARIN NA (PORCINE) 5,000 UNITS/ML 1ML VIAL SQ SCH ×2 (09:59→21:12)
[2017-10-10] MEDS: ASPIRIN 81 MG CHEWABLE TABLETS PO SCH (10:01)
--- NOTE | 2017-10-10 11:24 | PN ---
Progress Note, Physician History of Present Illness: No cardiovascular events - Current Medication List Current Medications: Active Medications Acetaminophen (Tylenol -) 650 mg PO Q6H PRN PRN Reason: FEVER Last Admin: 10/09/17 04:00 Dose: 650 mg Aspirin (Asa -) 81 mg PO DAILY [facility] Last Admin: 10/10/17 10:01 Dose: 81 mg Chlorhexidine Gluconate (Hibiclens For Decolonization -) 1 applic TP HS [facility] Last Admin: 10/09/17 21:18 Dose: 1 applic Diltiazem HCl (Cardizem -) 90 mg PO Q6HPO [facility] Last Admin: 10/10/17 06:14 Dose: 90 mg Heparin Sodium (Porcine) (Heparin -) 5,000 unit SQ BID [facility] Last Admin: 10/10/17 09:59 Dose: 5,000 unit Azithromycin 500 mg/ Dextrose 250 mls @ 250 mls/hr IVPB DAILY [facility] Last Admin: 10/10/17 09:58 Dose: 250 mls/hr Piperacillin Sod/Tazobactam (Sod 2.25 gm/ Dextrose) 50 mls @ 100 mls/hr IVPB Q8H-IV [facility] Last Admin: 10/10/17 09:58 Dose: 100 mls/hr Propofol (Diprivan -) 1,000,000 mcg in 100 mls @ 3.388 mls/hr IVPB TITR [facility]; 10 MCG/KG/MIN PRN Reason: Protocol Last Admin: 10/10/17 09:57 Dose: 25 mcg/kg/min, 8.471 mls/hr Dextrose (D10w -) 1,000 mls @ 42 mls/hr IV ASD[facility] Last Admin: 10/09/17 19:52 Dose: Not Given Phenylephrine HCl 20,000 mcg/ (Sodium Chloride) 250 mls @ 75 mls/hr IVPB ASDIR [facility]; 100 MCG/MIN PRN Reason: Protocol Last Titration: 10/10/17 08:30 Dose: 10 mcg/min, 7.5 mls/hr Sodium Chloride (Normal Saline -) 250 mls @ 3,000 mls/hr IV PRN PRN PRN Reason: Hypotension during Dialysis Stop: 10/09/17 09:44 Insulin Aspart (Novolog Vial Sliding Scale -) 1 vial SQ ACHS [facility] PRN Reason: Protocol Last Admin: 10/10/17 06:14 Dose: 6 units Insulin Detemir (Levemir Vial) 12 units SQ HS [facility] Last Admin: 10/09/17 21:18 Dose: 12 units Metoprolol Tartrate (Lopressor Injection -) 5 mg IVPUSH Q4H PRN PRN Reason: TACHYCARDIA Last Admin: 10/05/17 17:49 Dose: 5 mg Midazolam HCl (Versed -) 2 mg IVPUSH Q2H PRN PRN Reason: AGITATION Last Admin: 10/04/17 01:14 Dose: 2 mg Pantoprazole Sodium (Protonix Iv) 40 mg IVPUSH DAILY [facility] Last Admin: 10/10/17 09:59 Dose: 40 mg - Objective Vital Signs: Vital Signs Temperature 98 F 10/10/17 06:00 Pulse Rate 80 10/10/17 09:32 Respiratory Rate 17 10/10/17 09:32 Blood Pressure 109/60 10/10/17 08:30 O2 Sat by Pulse Oximetry (%) 97 10/10/17 09:32 Constitutional: Yes: Calm (Intubated) Eyes: Yes: WNL HENT: Yes: WNL Neck: Yes: WNL Cardiovascular: Yes: Regular Rate and Rhythm Respiratory: Yes: CTA Bilaterally Gastrointestinal: Yes: Normal Bowel Sounds Extremities: Yes: WNL Edema: No Labs: CBC, BMP 10/10/17 05:50 10/10/17 05:50 INR, PTT INR 1.09 (0.82-1.09) 10/06/17 14:10 Assessment/Plan 76 yo with pmhx of htn, hl, pad, afib (not on AC due to GIB), cva (no residual deficits), copd, dm, mgus, esthesioneuroblastoma treated with radiation therapy , chronic anemia s/p recent GIB admitted with dka, sepsis, resp failure. Hospital course now complicated by episode of afib with rvr afib - not previously a candidate for AC b/c of prior hx of GIB. remains anemic. - s/p IV amio. started po dilt 10/05. now back in sr. hr controlled. - lyte repletion prn. - 10/07: initiated HD this evening and subsequently went into RVR with HR's in the 140's. sbp's dropped into 70's. Patient was restarted on neosynephrine and given one time dose of 150 mg of amiodarone --> conversion to normal rhythm. Will uptitrate po dilt to 90 q6h and wean off pressors. starting ASA today. - 10/08: slight hgb drop on asa. iron studies notes. con't to monitor hgb. Consider discussing again candidacy for AC once hemodynamically stable, given patient is high risk for stroke (with h/o prior cva). Improved HR control on increased dilt, con't -10/09: in NSR 80s today. Hgb 7.3 today. Would follow Hgb closely and transfuse as needed per ICU care team -10/10: NSR. Hgb 7.4 (stable). Continue to follow htn - anti-htn regimen had been held b/c of hypotension/sepsis. Diltiazem started for rate control. - 10/08: required resumption of pressors yesterday evening. con't on diltiazem for rate control. -10/09: Remains on Phenylephrine, BP low 100s. -10/10 Remains on Phenylephrine, BP low 100s. cva/pad - con't statin. per pmd, previously not a candidate for asa due to recent gib and anemia. Discussed again with pmd today. started trial of ASA 10/07. will monitor hgb. iron studies noted. mild asc ao dilation - can consider switching to beta car once resp issues resolve and off pressors. dka/sepsis/resp failure - ongoing mgm't per pmd/pulm/id SHANTA - renal following, no sig improvement --> initiated HD 10/07. anemia - as above.
--- NOTE | 2017-10-10 11:30 | PN ---
Progress Note, Physician History of Present Illness: Remains intubated. Due for dialysis tomorrow again, otherwise blood sugars have been stabilizing. - Current Medication List Current Medications: Active Medications Acetaminophen (Tylenol -) 650 mg PO Q6H PRN PRN Reason: FEVER Last Admin: 10/09/17 04:00 Dose: 650 mg Aspirin (Asa -) 81 mg PO DAILY [facility] Last Admin: 10/10/17 10:01 Dose: 81 mg Chlorhexidine Gluconate (Hibiclens For Decolonization -) 1 applic TP HS [facility] Last Admin: 10/09/17 21:18 Dose: 1 applic Diltiazem HCl (Cardizem -) 90 mg PO Q6HPO [facility] Last Admin: 10/10/17 06:14 Dose: 90 mg Heparin Sodium (Porcine) (Heparin -) 5,000 unit SQ BID [facility] Last Admin: 10/10/17 09:59 Dose: 5,000 unit Azithromycin 500 mg/ Dextrose 250 mls @ 250 mls/hr IVPB DAILY [facility] Last Admin: 10/10/17 09:58 Dose: 250 mls/hr Piperacillin Sod/Tazobactam (Sod 2.25 gm/ Dextrose) 50 mls @ 100 mls/hr IVPB Q8H-IV [facility] Last Admin: 10/10/17 09:58 Dose: 100 mls/hr Propofol (Diprivan -) 1,000,000 mcg in 100 mls @ 3.388 mls/hr IVPB TITR [facility]; 10 MCG/KG/MIN PRN Reason: Protocol Last Admin: 10/10/17 09:57 Dose: 25 mcg/kg/min, 8.471 mls/hr Dextrose (D10w -) 1,000 mls @ 42 mls/hr IV ASDIR [facility] Last Admin: 10/09/17 19:52 Dose: Not Given Phenylephrine HCl 20,000 mcg/ (Sodium Chloride) 250 mls @ 75 mls/hr IVPB ASDIR [facility]; 100 MCG/MIN PRN Reason: Protocol Last Titration: 10/10/17 08:30 Dose: 10 mcg/min, 7.5 mls/hr Sodium Chloride (Normal Saline -) 250 mls @ 3,000 mls/hr IV PRN PRN PRN Reason: Hypotension during Dialysis Stop: 10/09/17 09:44 Insulin Aspart (Novolog Vial Sliding Scale -) 1 vial SQ ACHS [facility] PRN Reason: Protocol Last Admin: 10/10/17 06:14 Dose: 6 units Insulin Detemir (Levemir Vial) 12 units SQ HS [facility] Last Admin: 10/09/17 21:18 Dose: 12 units Metoprolol Tartrate (Lopressor Injection -) 5 mg IVPUSH Q4H PRN PRN Reason: TACHYCARDIA Last Admin: 10/05/17 17:49 Dose: 5 mg Midazolam HCl (Versed -) 2 mg IVPUSH Q2H PRN PRN Reason: AGITATION Last Admin: 10/04/17 01:14 Dose: 2 mg Pantoprazole Sodium (Protonix Iv) 40 mg IVPUSH DAILY [facility] Last Admin: 10/10/17 09:59 Dose: 40 mg - Objective Vital Signs: Vital Signs Temperature 98 F 10/10/17 06:00 Pulse Rate 80 10/10/17 09:32 Respiratory Rate 17 10/10/17 09:32 Blood Pressure 109/60 10/10/17 08:30 O2 Sat by Pulse Oximetry (%) 97 10/10/17 09:32 HENT: Yes: Other (OT tube present) Cardiovascular: Yes: Regular Rate and Rhythm, S1, S2. No: Murmur Respiratory: Yes: Mechanically Ventilated Gastrointestinal: Yes: Normal Bowel Sounds, Soft. No: Distention, Tenderness Edema: Yes Edema: LUE: Trace, RUE: Trace Labs: CBC, BMP 10/10/17 05:50 10/10/17 05:50 INR, PTT INR 1.09 (0.82-1.09) 10/06/17 14:10 Assessment/Plan Current Active Problems Sepsis Pneumonia DKA (diabetic ketoacidoses) (Acute) Acute Respiratory Failure Acute Renal Failure SVT, PAF Chronic Anemia h/o CVA COPD Diabetes mellitus (Chronic) -cont same treatment, weaning trials
--- NOTE | 2017-10-10 11:43 | PN ---
Progress Note (short form) - Note Progress Note: Vascular Surgery Pt seen and examined. Ischemic changes to left foot. Pt in septic shock and on pressors. Seems like the ischemic changes are from vasoconstriction from the pressors. Cannot find dopplerable pulses in either foot. Once off pressors can work up pt. Will follow. Addison trejo DO
--- NOTE | 2017-10-10 12:55 | PN ---
Progress Note (short form) - Note Progress Note: icu covering dr witt copd ig bleed diverticulosis steve/atn/sepsis s/p hd x 2 diverticulosis hld cva intussusception htn sinus ca s/p excision Current Medications Acetaminophen (Tylenol -) 650 mg PO Q6H PRN PRN Reason: FEVER Last Admin: 10/09/17 04:00 Dose: 650 mg Aspirin (Asa -) 81 mg PO DAILY [facility] Last Admin: 10/10/17 10:01 Dose: 81 mg Chlorhexidine Gluconate (Hibiclens For Decolonization -) 1 applic TP HS [facility] Last Admin: 10/09/17 21:18 Dose: 1 applic Diltiazem HCl (Cardizem -) 90 mg PO Q6HPO [facility] Last Admin: 10/10/17 06:14 Dose: 90 mg Heparin Sodium (Porcine) (Heparin -) 5,000 unit SQ BID [facility] Last Admin: 10/10/17 09:59 Dose: 5,000 unit Azithromycin 500 mg/ Dextrose 250 mls @ 250 mls/hr IVPB DAILY [facility] Last Admin: 10/10/17 09:58 Dose: 250 mls/hr Piperacillin Sod/Tazobactam (Sod 2.25 gm/ Dextrose) 50 mls @ 100 mls/hr IVPB Q8H-IV [facility] Last Admin: 10/10/17 09:58 Dose: 100 mls/hr Propofol (Diprivan -) 1,000,000 mcg in 100 mls @ 3.388 mls/hr IVPB TITR [facility]; 10 MCG/KG/MIN PRN Reason: Protocol Last Admin: 10/10/17 09:57 Dose: 25 mcg/kg/min, 8.471 mls/hr Dextrose (D10w -) 1,000 mls @ 42 mls/hr IV ASDIR [facility] Last Admin: 10/09/17 19:52 Dose: Not Given Phenylephrine HCl 20,000 mcg/ (Sodium Chloride) 250 mls @ 75 mls/hr IVPB ASDIR [facility]; 100 MCG/MIN PRN Reason: Protocol Last Titration: 10/10/17 08:30 Dose: 10 mcg/min, 7.5 mls/hr Sodium Chloride (Normal Saline -) 250 mls @ 3,000 mls/hr IV PRN PRN PRN Reason: Hypotension during Dialysis Stop: 10/09/17 09:44 Insulin Aspart (Novolog Vial Sliding Scale -) 1 vial SQ ACHS [facility] PRN Reason: Protocol Last Admin: 10/10/17 12:10 Dose: 8 units Insulin Detemir (Levemir Vial) 12 units SQ HS [facility] Last Admin: 10/09/17 21:18 Dose: 12 units Metoprolol Tartrate (Lopressor Injection -) 5 mg IVPUSH Q4H PRN PRN Reason: TACHYCARDIA Last Admin: 10/05/17 17:49 Dose: 5 mg Midazolam HCl (Versed -) 2 mg IVPUSH Q2H PRN PRN Reason: AGITATION Last Admin: 10/04/17 01:14 Dose: 2 mg Pantoprazole Sodium (Protonix Iv) 40 mg IVPUSH DAILY [facility] Last Admin: 10/10/17 09:59 Dose: 40 mg Last Vital Signs Temp Pulse Resp BP Pulse Ox 98 F 80 17 109/60 97 10/10/17 06:00 10/10/17 09:32 10/10/17 09:32 10/10/17 08:30 10/10/17 09:32 on vent sedated lungs vented, rhonchi heart reg abd soft no guarding ext no edema CBC, BMP 10/10/17 05:50 10/10/17 05:50 CBC, BMP 10/09/17 05:50 10/09/17 05:50 IMP-steve on hd severe anemia sepsis hypotension with sedation plan- hd on wednesday if not recovering renal function
--- NOTE | 2017-10-10 15:34 | PN ---
Progress Note (short form) - Note Progress Note: Intubated, on Propofol Eyes open, in NAD On tube feeding Vital Signs Period Temp Pulse Resp BP Sys/Sy Pulse Ox Last 24 Hr 98 F-99.1 F 75-89 16-22 91-132/39-62 97-100 PE: Eyes open, awake, Neck: supple Lungs: few rhonchi CVS: S1S2 Abd: Benign Ext: No edema, dusky coloration left 1st and 2nd toes Neuro: Awake, open eyes, CMP Sodium 141 mmol/L (136-145) 10/10/17 05:50 Potassium 5.0 mmol/L (3.5-5.1) 10/10/17 05:50 Chloride 105 mmol/L (98-107) 10/10/17 05:50 Carbon Dioxide 29 mmol/L (21-32) 10/10/17 05:50 Anion Gap 7 (8-16) L 10/10/17 05:50 BUN 66 mg/dL (7-18) H D 10/10/17 05:50 Creatinine 3.3 mg/dL (0.7-1.3) H D 10/10/17 05:50 Creat Clearance w eGFR 18.22 (>60) 10/10/17 05:50 POC Glucometer 239.49212 UNITS (80-120) 10/10/17 12:06 Random Glucose 153 mg/dL (74-106) H 10/10/17 05:50 Hemoglobin A1c % 8.5 % (4.8-6.0) H D 10/04/17 06:00 Lactic Acid 2.0 mmol/L (0.0-2.0) 10/03/17 12:00 Calcium 6.8 mg/dL (8.5-10.1) L* 10/10/17 05:50 Phosphorus 4.1 mg/dL (2.5-4.9) 10/09/17 05:50 Magnesium 2.1 mg/dL (1.8-2.4) 10/09/17 05:50 Iron 22 ug/dL (38-169) L 10/06/17 05:50 Ferritin 202.816 ng/ml (16.4-293.9) 10/06/17 05:50 Total Bilirubin 0.1 mg/dL (0.2-1.0) L D 10/10/17 05:50 AST 33 U/L (15-37) 10/10/17 05:50 ALT 21 U/L (12-78) 10/10/17 05:50 Alkaline Phosphatase 86 U/L (45-117) 10/10/17 05:50 Total Protein 4.2 g/dl (6.4-8.2) L 10/10/17 05:50 Albumin 1.0 g/dl (3.4-5.0) L 10/10/17 05:50 Vitamin B12 1602 pg/ml (180-914) H 10/06/17 05:50 Serum Folate 23 ng/ml (3.1-17.5) H 10/06/17 05:50 Current Medications Generic Name Dose Route Start Last Admin Trade Name Freq PRN Reason Stop Dose Admin Acetaminophen 650 mg 10/09/17 05:40 10/09/17 04:00 Tylenol - PO 650 mg Q6H PRN Administration FEVER Aspirin 81 mg 10/07/17 10:30 10/10/17 10:01 Asa - PO 81 mg DAILY SELVIN Administration Chlorhexidine Gluconate 1 applic 10/03/17 22:00 10/09/17 21:18 Hibiclens For Decolonization - TP 1 applic HS SELVIN Administration Diltiazem HCl 90 mg 10/07/17 19:45 10/10/17 06:14 Cardizem - PO 90 mg Q6HPO SELVIN Administration Heparin Sodium (Porcine) 5,000 unit 10/03/17 10:00 10/10/17 09:59 Heparin - SQ 5,000 unit BID SELVIN Administration Azithromycin 500 mg/ Dextrose 250 mls @ 250 mls/hr 10/04/17 10:00 10/10/17 09 :58 IVPB 250 mls/hr DAILY SELVIN Administration Piperacillin Sod/Tazobactam 50 mls @ 100 mls/hr 10/03/17 18:00 10/10/17 09:58 Sod 2.25 gm/ Dextrose IVPB 100 mls/hr Q8H-IV SELVIN Administration Propofol 1,000,000 mcg in 100 mls @ 3.388 mls/hr 10/04/17 09:15 10/10/17 09: 57 Diprivan - IVPB 25 mcg/kg/min TITR SELVIN 8.471 mls/hr Protocol Administration 10 MCG/KG/MIN Dextrose 1,000 mls @ 42 mls/hr 10/06/17 18:45 10/09/17 19:52 D10w - IV Not Given ASDIR SELVIN Phenylephrine HCl 20,000 mcg/ 250 mls @ 75 mls/hr 10/07/17 19:00 10/10/17 11: 45 Sodium Chloride IVPB 0 mcg/min ASDIR SELVIN 0 mls/hr Protocol Titration 100 MCG/MIN Sodium Chloride 250 mls @ 3,000 mls/hr 10/08/17 09:44 Normal Saline - IV 10/09/17 09:44 PRN PRN Hypotension during Dialysis Insulin Aspart 1 vial 10/07/17 11:57 10/10/17 12:10 Novolog Vial Sliding Scale - SQ 8 units ACHS SELVIN Administration Protocol Insulin Detemir 12 units 10/07/17 22:00 10/09/17 21:18 Levemir Vial SQ 12 units HS SELVIN Administration Metoprolol Tartrate 5 mg 10/03/17 19:00 10/05/17 17:49 Lopressor Injection - IVPUSH 5 mg Q4H PRN Administration TACHYCARDIA Midazolam HCl 2 mg 10/03/17 14:35 10/04/17 01:14 Versed - IVPUSH 2 mg Q2H PRN Administration AGITATION Pantoprazole Sodium 40 mg 10/05/17 14:45 10/10/17 09:59 Protonix Iv IVPUSH 40 mg DAILY SELVIN Administration AP; Acute Hypoxic Respiratory Failure Pneumonia Septic Shock DM with Acidosis ? DKA,?Lactic acidosis Acute on Chronic Renal Failure Paroxysmal Atrial Fibrillation with RVR HTN COPD Ischemic chages left foot BGM Q6 hr Increase Levemir 14 units daily Change Novolog coverage continue antibiotics Tube feeding as tolerated Chart reviewed Start D10W at 42 ml/hr if tube feeding is held or discontinued for any reason until pt is able to eat. Should be on long acting Insulin for now Vascular surgery consult noted Will f/u
--- NOTE | 2017-10-10 17:08 | PN ---
Progress Note, Physician History of Present Illness: Pt remains intubated, on propofol. Arousable. Temp 99.1F. - Current Medication List Current Medications: Active Medications Acetaminophen (Tylenol -) 650 mg PO Q6H PRN PRN Reason: FEVER Last Admin: 10/09/17 04:00 Dose: 650 mg Aspirin (Asa -) 81 mg PO DAILY SELVIN Last Admin: 10/10/17 10:01 Dose: 81 mg Chlorhexidine Gluconate (Hibiclens For Decolonization -) 1 applic TP HS SELVIN Last Admin: 10/09/17 21:18 Dose: 1 applic Diltiazem HCl (Cardizem -) 90 mg PO Q6HPO SELVIN Last Admin: 10/10/17 12:00 Dose: Not Given Heparin Sodium (Porcine) (Heparin -) 5,000 unit SQ BID SELVIN Last Admin: 10/10/17 09:59 Dose: 5,000 unit Azithromycin 500 mg/ Dextrose 250 mls @ 250 mls/hr IVPB DAILY [facility] Last Admin: 10/10/17 09:58 Dose: 250 mls/hr Piperacillin Sod/Tazobactam (Sod 2.25 gm/ Dextrose) 50 mls @ 100 mls/hr IVPB Q8H-IV SELVIN Last Admin: 10/10/17 09:58 Dose: 100 mls/hr Propofol (Diprivan -) 1,000,000 mcg in 100 mls @ 3.388 mls/hr IVPB TITR SELVIN; 10 MCG/KG/MIN PRN Reason: Protocol Last Admin: 10/10/17 09:57 Dose: 25 mcg/kg/min, 8.471 mls/hr Dextrose (D10w -) 1,000 mls @ 42 mls/hr IV ASDIR SELVIN Last Admin: 10/09/17 19:52 Dose: Not Given Phenylephrine HCl 20,000 mcg/ (Sodium Chloride) 250 mls @ 75 mls/hr IVPB ASDIR SELVIN; 100 MCG/MIN PRN Reason: Protocol Last Titration: 10/10/17 11:45 Dose: 0 mcg/min, 0 mls/hr Sodium Chloride (Normal Saline -) 250 mls @ 3,000 mls/hr IV PRN PRN PRN Reason: Hypotension during Dialysis Stop: 10/09/17 09:44 Insulin Aspart (Novolog Vial Sliding Scale -) 1 vial SQ ACHS SELVIN PRN Reason: Protocol Insulin Detemir (Levemir Vial) 14 units SQ HS [facility] Metoprolol Tartrate (Lopressor Injection -) 5 mg IVPUSH Q4H PRN PRN Reason: TACHYCARDIA Last Admin: 10/05/17 17:49 Dose: 5 mg Midazolam HCl (Versed -) 2 mg IVPUSH Q2H PRN PRN Reason: AGITATION Last Admin: 10/04/17 01:14 Dose: 2 mg Pantoprazole Sodium (Protonix Iv) 40 mg IVPUSH DAILY [facility] Last Admin: 10/10/17 09:59 Dose: 40 mg - Objective Vital Signs: Vital Signs Temperature 99.1 F 10/10/17 14:00 Pulse Rate 89 10/10/17 14:00 Respiratory Rate 22 10/10/17 15:53 Blood Pressure 107/47 10/10/17 14:00 O2 Sat by Pulse Oximetry (%) 97 10/10/17 14:00 Constitutional: Yes: No Distress Respiratory: Yes: Mechanically Ventilated Gastrointestinal: Yes: Normal Bowel Sounds Extremities: Yes: Other (Lt foot dusky) Neurological: Yes: Weakness Labs: CBC, BMP 10/10/17 05:50 10/10/17 05:50 INR, PTT INR 1.09 (0.82-1.09) 10/06/17 14:10 Problem List - Problems (1) DKA (diabetic ketoacidoses) Code(s): E13.10 - OTH DIABETES MELLITUS WITH KETOACIDOSIS WITHOUT COMA (2) Diabetes mellitus Code(s): E11.9 - TYPE 2 DIABETES MELLITUS WITHOUT COMPLICATIONS (3) SHANTA (acute kidney injury) Code(s): N17.9 - ACUTE KIDNEY FAILURE, UNSPECIFIED (4) Anemia Code(s): D64.9 - ANEMIA, UNSPECIFIED Qualifiers: Other causes of anemia: acute posthemorrhagic (5) Aortic aneurysm Code(s): I71.9 - AORTIC ANEURYSM OF UNSPECIFIED SITE, WITHOUT RUPTURE Qualifiers: Aortic location: thoracic aorta Presence of rupture: without rupture Qualified Code(s): I71.2 - Thoracic aortic aneurysm, without rupture (6) Pneumonia Code(s): J18.9 - PNEUMONIA, UNSPECIFIED ORGANISM (7) CKD (chronic kidney disease) Code(s): N18.9 - CHRONIC KIDNEY DISEASE, UNSPECIFIED Assessment/Plan Acute Hypoxic Respiratory Failure/intubated Pneumonia Septic Shock Acute on Chronic Renal Failure Lactic Acidosis Diabetic Ketoacidosis improving HTN DM COPD -- continue current antibiotics -- monitor wbc/temps -- rest of care per ICU pt remains intubated, on vasopressors cc: 40 min
[2017-10-10] MEDS: ACETAMINOPHEN 325 MG TABLET (FP) PO PRN (18:23)
[2017-10-10] MEDS: DEXTROSE 10%-WATER - 1,000 ML IV SCH (21:11)
[2017-10-10] MEDS: CHLORHEXIDINE GLUCONATE 4% CLEANSER FOR DECOLONIZATION TP SCH (21:12)
[2017-10-10] MEDS: PHENYLEPHRINE HCL 20,000 MCG in SODIUM CHLORIDE 248 ML IVPB SCH (21:12)
[2017-10-10] MEDS ORDERED: INSULIN (LEVEMIR) 100 UNITS/ML UNITS SQ SCH (22:00)
[2017-10-11] MEDS ORDERED: PIPERACILLIN/TAZOBACTAM 2.25 GM VIAL IVPB ONE ×3 (01:26→17:21)
[2017-10-11] MEDS ORDERED: DEXTROSE 5%-WATER - 50 ML IVPB ONE ×3 (01:27→17:21)
[2017-10-11] MEDS: dilTIAZem HCL 30 MG TABLET (FP) PO SCH ×4 (01:32→17:40)
[2017-10-11] MEDS: PIPERACILLIN/TAZOB 2.25 GM 2.25 GM in DEXTROSE 5%-WATER - 50 ML IVPB SCH ×3 (01:32→17:40)
[2017-10-11] MEDS: PROPOFOL 1,000,000 MCG/100 ML VIAL IVPB SCH ×2 (05:00→09:33)
[2017-10-11 06:22] LABS: MCH 30.1 pg (25.7-33.7); MCHC 32.8 g/dl (32.0-35.9); MEAN CELL VOLUME 91.6 fl (80-96); MEAN PLT VOLUME 9.1 fl (7.5-11.1); PLATELET COUNT 374 K/MM3 (134-434); RDW 16.7 % (11.9-15.9); WHITE BLOOD COUNT 15.4 K/mm3 (4.0-10.0)
[2017-10-11 06:37] LABS: HEMOGLOBIN 6.9 GM/dL (11.7-16.9)
[2017-10-11] MEDS: INSULIN SLIDING SCALE (NOVOLOG) 1 VIAL SQ SCH ×4 (06:38→21:22)
[2017-10-11 06:55] LABS: ANION GAP 9 (8-16); BLOOD UREA NITROGEN 78 mg/dL (7-18); CALCIUM 7.2 mg/dL (8.5-10.1); CHLORIDE 104 mmol/L (98-107); CO2 28 mmol/L (21-32); POTASSIUM 5.6 mmol/L (3.5-5.1); SODIUM 141 mmol/L (136-145)
[2017-10-11 07:00] LABS: ALK PHOS 74 U/L (45-117); BILIRUBIN,TOTAL 0.3 mg/dL (0.2-1.0); CREATININE 3.9 mg/dL (0.7-1.3); SGOT/AST 29 U/L (15-37); SGPT/ALT 15 U/L (12-78); TOT PROT 4.2 g/dl (6.4-8.2)
[2017-10-11 07:12] LABS: GLUCOSE,RANDOM 44 mg/dL (74-106)
[2017-10-11] MEDS ORDERED: DEXTROSE 50%-WATER - 25 GM/50 ML VIAL IVPUSH ONE (07:22)
[2017-10-11 08:01] LABS: MAGNESIUM 2.1 mg/dL (1.8-2.4); PHOSPHOROUS 6.8 mg/dL (2.5-4.9)
[2017-10-11] MEDS ORDERED: DEXTROSE 50%-WATER 25 GM/50 ML DISP.SYRIN ONE (08:03)
[2017-10-11] MEDS ORDERED: PT OWN MED DRAWER 7, Y5N ONE (09:27)
[2017-10-11 09:30] LABS: ARTERIAL BLD GAS O2 SATURATION 98.4 % (90-98.9); ARTERIAL BLOOD GAS BASE EXCESS 1.6 meq/l (-2-2); ARTERIAL BLOOD GAS PCO2 40.3 mmHg (35-45); ARTERIAL BLOOD GAS pH 7.42 (7.35-7.45)
[2017-10-11] MEDS: ASPIRIN 81 MG CHEWABLE TABLETS PO SCH (09:30)
[2017-10-11] MEDS: HEPARIN NA (PORCINE) 5,000 UNITS/ML 1ML VIAL SQ SCH ×2 (09:30→21:07)
[2017-10-11] MEDS: AZITHROMYCIN IVPB 500 MG in DEXTROSE 5%-WATER - 250 ML IVPB SCH (09:31)
[2017-10-11] MEDS: PANTOPRAZOLE SODIUM 40 MG VIAL IVPUSH SCH (09:31)
[2017-10-11 09:33] LABS: ALLENS TEST POSITIVE
--- NOTE | 2017-10-11 09:55 | PN ---
Progress Note (short form) - Note Progress Note: Patient seen and examined this AM. Not as responsive as a previous possibly due to hemoglobin of 6.9. He will be given 2 units of packed cells during dialysis today. Patient is still intubated; pressors are off; sedation is off. No active source of bleeding. Chest x-ray unchanged with atelectasis or infiltrate on the right side. ABG stable; hoping for a trial off vent. on exam: Vital Signs Period Temp Pulse Resp BP Sys/Sy Pulse Ox Last 24 Hr 97.4 F-99.0 F 70-109 16-22 98-145/45-91 95-100 patient somewhat lethargic. Opens his eyes on loud command. Chest decreased breath sounds on the right but no active wheezes or rhonchi. Heart tachycardia. Abdomen slightly distended but soft with moderately increased bowel sounds. Extremities no pedal edema. Cold cyanotic great toe and second toe left foot. Abnormal Lab Results 10/11/17 10/11/17 10/11/17 05:25 05:25 08:10 WBC 15.4 H RBC 2.30 L Hgb 6.9 L* Hct 21.0 L RDW 16.7 H ABG pO2 at Pt Temp ABG O2 Content Potassium 5.6 H BUN 78 H Creatinine 3.9 H Random Glucose 44 L* D Calcium 7.2 L Phosphorus 6.8 H D Total Protein 4.2 L Albumin 1.0 L Crossmatch See Detail 10/11/17 09:20 WBC RBC Hgb Hct RDW ABG pO2 at Pt Temp 120.0 H D ABG O2 Content 10.5 L Potassium BUN Creatinine Random Glucose Calcium Phosphorus Total Protein Albumin Crossmatch impression: Sepsis acute Probable right-sided pneumonia Acute respiratory failure Acute and chronic renal failure Uncontrolled diabetes mellitus currently on insulin Peripheral vascular disease. Cyanotic toes left foot. History of nasopharyngeal cancer status post radiation therapy. acute on chronic anemia possibly due to chronic disease. Plan: 2 units packed cells. Dialysis. Followup chest x-ray Decision by desktop engineer regarding eventual Vent removal. Vascular physician consult Followup lab The patient's was called regarding current status.
--- NOTE | 2017-10-11 10:32 | PN ---
Progress Note, Physician Chief Complaint: resp failure History of Present Illness: intubated. awake and alert, not communicating clearly. - Current Medication List Current Medications: Active Medications Acetaminophen (Tylenol -) 650 mg PO Q6H PRN PRN Reason: FEVER Last Admin: 10/10/17 18:23 Dose: 650 mg Aspirin (Asa -) 81 mg PO DAILY [facility] Last Admin: 10/11/17 09:30 Dose: 81 mg Chlorhexidine Gluconate (Hibiclens For Decolonization -) 1 applic TP HS [facility] Last Admin: 10/10/17 21:12 Dose: 1 applic Diltiazem HCl (Cardizem -) 90 mg PO Q6HPO [facility] Last Admin: 10/11/17 05:47 Dose: Not Given Heparin Sodium (Porcine) (Heparin -) 5,000 unit SQ BID [facility] Last Admin: 10/11/17 09:30 Dose: 5,000 unit Azithromycin 500 mg/ Dextrose 250 mls @ 250 mls/hr IVPB DAILY [facility] Last Admin: 10/11/17 09:31 Dose: 250 mls/hr Piperacillin Sod/Tazobactam (Sod 2.25 gm/ Dextrose) 50 mls @ 100 mls/hr IVPB Q8H-IV SELVIN Last Admin: 10/11/17 09:31 Dose: 100 mls/hr Propofol (Diprivan -) 1,000,000 mcg in 100 mls @ 3.388 mls/hr IVPB TITR SELVIN; 10 MCG/KG/MIN PRN Reason: Protocol Last Admin: 10/11/17 09:33 Dose: 25 mcg/kg/min, 8.471 mls/hr Dextrose (D10w -) 1,000 mls @ 42 mls/hr IV ASDIR [facility] Last Admin: 10/10/17 21:11 Dose: Not Given Phenylephrine HCl 20,000 mcg/ (Sodium Chloride) 250 mls @ 75 mls/hr IVPB ASDIR SELVIN; 100 MCG/MIN PRN Reason: Protocol Last Admin: 10/10/17 21:12 Dose: Not Given Sodium Chloride (Normal Saline -) 250 mls @ 3,000 mls/hr IV PRN PRN PRN Reason: Hypotension during Dialysis Stop: 10/09/17 09:44 Insulin Aspart (Novolog Vial Sliding Scale -) 1 vial SQ ACHS SELVIN PRN Reason: Protocol Last Admin: 10/11/17 06:38 Dose: Not Given Insulin Detemir (Levemir Vial) 14 units SQ HS [facility] Last Admin: 10/10/17 21:13 Dose: 14 units Metoprolol Tartrate (Lopressor Injection -) 5 mg IVPUSH Q4H PRN PRN Reason: TACHYCARDIA Last Admin: 10/05/17 17:49 Dose: 5 mg Midazolam HCl (Versed -) 2 mg IVPUSH Q2H PRN PRN Reason: AGITATION Last Admin: 10/04/17 01:14 Dose: 2 mg Pantoprazole Sodium (Protonix Iv) 40 mg IVPUSH DAILY [facility] Last Admin: 10/11/17 09:31 Dose: 40 mg - Objective Vital Signs: Vital Signs Temperature 97.4 F L 10/11/17 06:00 Pulse Rate 77 10/11/17 08:12 Respiratory Rate 16 10/11/17 10:17 Blood Pressure 108/46 10/11/17 06:00 O2 Sat by Pulse Oximetry (%) 100 10/11/17 10:18 Constitutional: Yes: Well Nourished, No Distress, Calm Cardiovascular: Yes: Regular Rate and Rhythm. No: JVD (tds exam), Gallop, Murmur Respiratory: Yes: Regular, CTA Bilaterally (anteriorly). No: Rales, Wheezes Extremities: No: Cold Edema: No Neurological: Yes: Alert. No: Seizure Psychiatric: No: Agitated Labs: CBC, BMP 10/11/17 05:25 10/11/17 05:25 INR, PTT INR 1.09 (0.82-1.09) 10/06/17 14:10 Assessment/Plan cxr 10/05: RLL consolidation and pleural fluid. cxr 10/08 improved aeration at right base. Echo 06/2017: mod lvh. nl lv fn. nl rv size/fn. 1+ lae. mod-sev mac with mod ms. 1+ mr. nl rvsp. 1+ ao dilation A/P 76 yo with pmhx of htn, hl, pad, afib (not on AC due to GIB), cva (no residual deficits), copd, dm, mgus, esthesioneuroblastoma treated with radiation therapy , chronic anemia s/p recent GIB admitted with dka, sepsis, resp failure. Hospital course now complicated by episode of afib with rvr afib - not previously a candidate for AC b/c of prior hx of GIB. remains anemic. - s/p IV amio. started po dilt 10/05. now back in sr. hr controlled. - off Amio, remains in sinus. BPs soft but tolerating diltiazem hi dose (90mg q6H)--continue same for now - 10/07: initiated HD this evening and subsequently went into RVR with HR's in the 140's. sbp's dropped into 70's. Patient was restarted on neosynephrine and given one time dose of 150 mg of amiodarone --> conversion to normal rhythm. Will uptitrate po dilt to 90 q6h and wean off pressors. starting ASA today. - 10/08: slight hgb drop on asa. iron studies notes. con't to monitor hgb. Consider discussing again candidacy for AC once hemodynamically stable, given patient is high risk for stroke (with h/o prior cva). Improved HR control on increased dilt, con't same - 10/11: hgb drifting down. stop ASA. not a candidate for AC at this time as risks of serious bleeding are > benefits mitral stenosis: - aggressive control of afib to prevent tachycardia-->CHF as doing - defer amio for now, may have to reconsider if recurrent rapid AF despite sepsis/PNA complete resolution htn - anti-htn regimen had been held b/c of septic shock requiring pressors - continue to observe cva/pad - con't statin. - per pmd, previously not a candidate for asa due to recent gib and anemia. hgb drifting down on asa here, held again mild asc ao dilation - can consider switching to beta car once resp issues resolve. PNA with septic shock, resp failure - off phenylephrine as of AM 10/11, hemodynamically stable currently - cont ICU monitoring SHANTA - renal following, no sig improvement --> initiated HD 10/07. anemia - as above. est crit care time spent in review of data, pt exam, and formulating mgmt plan of potentially life-threatening problems = 35 min
--- NOTE | 2017-10-11 13:14 | PN ---
Physical Exam: SUBJECTIVE: Patient seen and examined in ICU. Patient hypotensive with afib w/ RVR after dialysis again. Started on phenylephrine, weaned yesterday. OBJECTIVE: Vital Signs Period Temp Pulse Resp BP Sys/Sy Pulse Ox Last 24 Hr 97.4 F-99.5 F 70-96 16-22 98-140/45-60 95-100 GENERAL: The patient is awake, alert, and fully oriented, in no acute distress. HEAD: Normal with no signs of trauma. EYES: PERRL, extraocular movements intact, sclera anicteric, conjunctiva clear. NECK: Trachea midline, full range of motion, supple. LUNGS: Breath sounds equal, clear to auscultation bilaterally, no wheezes, no crackles, no accessory muscle use. HEART: Regular rate and rhythm, S1, S2 without murmur, rub or gallop. EXTREMITIES: 2+ pulses in right foot, pink, warm, dry. R foot no pulses by doppler, blackened great and second toe Laboratory Results - last 24 hr 10/09/17 10/09/17 10/10/17 11:14 17:17 18:13 WBC RBC Hgb Hct MCV MCH MCHC RDW Plt Count MPV Puncture Site ABG pH ABG pCO2 at Pt Temp ABG pO2 at Pt Temp ABG HCO3 ABG O2 Sat (Measured) ABG O2 Content ABG Base Excess Ra Test O2 Delivery Device Oxygen Flow Rate Vent Mode Vent Rate Mechanical Rate PEEP Pressure Support Vent Sodium Potassium Chloride Carbon Dioxide Anion Gap BUN Creatinine Creat Clearance w eGFR POC Glucometer 139.81976 222.42581 211.15494 Random Glucose Calcium Phosphorus Magnesium Total Bilirubin AST ALT Alkaline Phosphatase Total Protein Albumin Blood Type Antibody Screen Crossmatch 10/11/17 10/11/17 10/11/17 05:25 05:25 05:25 WBC 15.4 H RBC 2.30 L Hgb 6.9 L* Hct 21.0 L MCV 91.6 MCH 30.1 MCHC 32.8 RDW 16.7 H Plt Count 374 MPV 9.1 Puncture Site ABG pH ABG pCO2 at Pt Temp ABG pO2 at Pt Temp ABG HCO3 ABG O2 Sat (Measured) ABG O2 Content ABG Base Excess Ra Test O2 Delivery Device Oxygen Flow Rate Vent Mode Vent Rate Mechanical Rate PEEP Pressure Support Vent Sodium 141 Potassium 5.6 H Chloride 104 Carbon Dioxide 28 Anion Gap 9 BUN 78 H Creatinine 3.9 H Creat Clearance w eGFR 15.03 POC Glucometer Random Glucose 44 L* D Calcium 7.2 L Phosphorus 6.8 H D Cancelled Magnesium 2.1 Cancelled Total Bilirubin 0.3 D AST 29 ALT 15 D Alkaline Phosphatase 74 Total Protein 4.2 L Albumin 1.0 L Blood Type Antibody Screen Crossmatch 10/11/17 10/11/17 10/11/17 05:45 08:06 08:10 WBC RBC Hgb Hct MCV MCH MCHC RDW Plt Count MPV Puncture Site ABG pH ABG pCO2 at Pt Temp ABG pO2 at Pt Temp ABG HCO3 ABG O2 Sat (Measured) ABG O2 Content ABG Base Excess Ra Test O2 Delivery Device Oxygen Flow Rate Vent Mode Vent Rate Mechanical Rate PEEP Pressure Support Vent Sodium Potassium Chloride Carbon Dioxide Anion Gap BUN Creatinine Creat Clearance w eGFR POC Glucometer 60.91913 113.13595 Random Glucose Calcium Phosphorus Magnesium Total Bilirubin AST ALT Alkaline Phosphatase Total Protein Albumin Blood Type O NEGATIVE Antibody Screen Negative Crossmatch See Detail 10/11/17 10/11/17 09:20 12:14 WBC RBC Hgb Hct MCV MCH MCHC RDW Plt Count MPV Puncture Site Left brachial ABG pH 7.42 ABG pCO2 at Pt Temp 40.3 ABG pO2 at Pt Temp 120.0 H D ABG HCO3 25.6 ABG O2 Sat (Measured) 98.4 ABG O2 Content 10.5 L ABG Base Excess 1.6 Ra Test Positive O2 Delivery Device A/c Oxygen Flow Rate 40% Vent Mode A/c Vent Rate 16 Mechanical Rate Yes PEEP 5.0 Pressure Support Vent 450 Sodium Potassium Chloride Carbon Dioxide Anion Gap BUN Creatinine Creat Clearance w eGFR POC Glucometer 130.35814 Random Glucose Calcium Phosphorus Magnesium Total Bilirubin AST ALT Alkaline Phosphatase Total Protein Albumin Blood Type Antibody Screen Crossmatch Active Medications Generic Name Dose Route Start Last Admin Trade Name Freq PRN Reason Stop Dose Admin Acetaminophen 650 mg 10/09/17 05:40 10/10/17 18:23 Tylenol - PO 650 mg Q6H PRN Administration FEVER Chlorhexidine Gluconate 1 applic 10/03/17 22:00 10/10/17 21:12 Hibiclens For Decolonization - TP 1 applic HS SELVIN Administration Diltiazem HCl 90 mg 10/07/17 19:45 10/11/17 05:47 Cardizem - PO Not Given Q6HPO SELVIN Heparin Sodium (Porcine) 5,000 unit 10/03/17 10:00 10/11/17 09:30 Heparin - SQ 5,000 unit BID SELVIN Administration Azithromycin 500 mg/ Dextrose 250 mls @ 250 mls/hr 10/04/17 10:00 10/11/17 09 :31 IVPB 250 mls/hr DAILY SELVIN Administration Piperacillin Sod/Tazobactam 50 mls @ 100 mls/hr 10/03/17 18:00 10/11/17 09:31 Sod 2.25 gm/ Dextrose IVPB 100 mls/hr Q8H-IV SELVIN Administration Propofol 1,000,000 mcg in 100 mls @ 3.388 mls/hr 10/04/17 09:15 10/11/17 09: 33 Diprivan - IVPB 25 mcg/kg/min TITR SELVIN 8.471 mls/hr Protocol Administration 10 MCG/KG/MIN Dextrose 1,000 mls @ 42 mls/hr 10/06/17 18:45 10/10/17 21:11 D10w - IV Not Given ASDIR SELVIN Phenylephrine HCl 20,000 mcg/ 250 mls @ 75 mls/hr 10/07/17 19:00 10/10/17 21: 12 Sodium Chloride IVPB Not Given ASDIR SELVIN Protocol 100 MCG/MIN Sodium Chloride 250 mls @ 3,000 mls/hr 10/08/17 09:44 Normal Saline - IV 10/09/17 09:44 PRN PRN Hypotension during Dialysis Insulin Aspart 1 vial 10/10/17 16:30 10/11/17 06:38 Novolog Vial Sliding Scale - SQ Not Given ACHS [facility] Protocol Insulin Detemir 14 units 10/10/17 22:00 10/10/17 21:13 Levemir Vial SQ 14 units HS SELVIN Administration Metoprolol Tartrate 5 mg 10/03/17 19:00 10/05/17 17:49 Lopressor Injection - IVPUSH 5 mg Q4H PRN Administration TACHYCARDIA Midazolam HCl 2 mg 10/03/17 14:35 10/04/17 01:14 Versed - IVPUSH 2 mg Q2H PRN Administration AGITATION Pantoprazole Sodium 40 mg 10/05/17 14:45 10/11/17 09:31 Protonix Iv IVPUSH 40 mg DAILY SELVIN Administration ASSESSMENT/PLAN: Patient is a 76 year old male with who presented for acute respiratory failure and was found to have pneumonia and DKA. Patient is admitted to ICU for further monitoring and management. Pulmonology #Acute Hypoxic Respiratory Failure -Likely secondary to Pneumonia -Continue Zosyn 2.25mg IV Q8H AND Azithromycin 500mg IV -Patient off Versed -Continue Daily sedation vacations and spontaneous breathing trials. -Will more actively wean after dialysis today if stable after dialysis #COPD -Continue Nebulizers -Continue Ventilation -Continue IV Abx Infectious Disease #Septic Shock secondary to Pneumonia -Continue IV abx Azithromycin and Zosyn -Blood cultures negative -Sputum cultures staph, hector sensitive -Legionella negative -HOB -Aspiration precaution Nephrology #Acute on Chronic Renal Failure -Likely ATN secondary from Septic hock -Urine output still slow, 200 this morning. -Acidosis and Cr improved after dialysis -Dialysis today, will give 2U PRBC during -Renal (Dr Sesay) aware of patient becoming hypotensive requiring pressors and with afib w/rvr after last two dialysis sessions #AG and Non-AG Metabolic acidosis -Acidosis resolved Cardiovascular #Paroxysmal Atrial Fibrillation -Continue Cardizem 60mg Q6H -Metoprolol 5mg IVP Q4H PRN for Tachycardia #HTN -Patient not hypertensive -No Lasix today -Will continue to monitor BP #CAD/PVD -Ischemia in left toe likely secondary to pressors, hypotension, and prior surgery in the left foot. -Vascular aware, following -Will optimize medically -Not candidate for asa, heparin due to hgb drop, h/o gi bleed Endocrine #DKA-Resolved -Continue ISS -Continue BGM -Continue Levemir Neurology #Rule out Critical Illness Myopathy/Polyneuropathy -Patient following commands -Will stop propofol drip after dialysis F/E/N -On no fluids -Electrolytes wnl -NPO- On tube feeds- Glucerna Prophylaxis -High risk. Heparin 5000 units SQ for DVT -Protonix 40mg IVP daily Disposition -Full code -Continue sedation vacation and spontaneous breathing trials Visit type - Emergency Visit Emergency Visit: Yes ED Registration Date: 10/03/17 Care time: The patient presented to the Emergency Department on the above date and was hospitalized for further evaluation of their emergent condition. - New Patient This patient is new to me today: No - Critical Care Critical Care patient: Yes Total Critical Care Time (in minutes): 45 Critical Care Statement: The care of this patient involved high complexity decision making to prevent further life threatening deterioration of the patient 's condition and/or to evaluate & treat vital organ system(s) failure or risk of failure.
--- NOTE | 2017-10-11 15:02 | PN ---
Progress Note, Physician Chief Complaint: The patient seen in the ICU. Intubated, vent supported, Tube feeding in progress. Awake, oliguric. Hemodialysis scheduled for today in the ICU History of Present Illness: 76 yo with pmhx of htn, hl, pad, afib (not on AC due to GIB), cva (no residual deficits), copd, dm, mgus, esthesioneuroblastoma treated with radiation therapy , chronic anemia s/p recent GIB admitted with dka, sepsis, resp failure. Hospital course now complicated by episode of Afib with RVR. The patient has SHANTA superimposed on CKD, and is now on dialysis. Has severe anemia. The patient's last hemodialysis sessions were complicated by acute SVT, and possibly related to the severe anemia. Today he will get the HD, but will be transfused two units of PRBCs. Orders written and reviewed with the HD RN. - Current Medication List Current Medications: Active Medications Acetaminophen (Tylenol -) 650 mg PO Q6H PRN PRN Reason: FEVER Last Admin: 10/10/17 18:23 Dose: 650 mg Chlorhexidine Gluconate (Hibiclens For Decolonization -) 1 applic TP HS [facility] Last Admin: 10/10/17 21:12 Dose: 1 applic Diltiazem HCl (Cardizem -) 90 mg PO Q6HPO [facility] Last Admin: 10/11/17 13:26 Dose: Not Given Heparin Sodium (Porcine) (Heparin -) 5,000 unit SQ BID [facility] Last Admin: 10/11/17 09:30 Dose: 5,000 unit Azithromycin 500 mg/ Dextrose 250 mls @ 250 mls/hr IVPB DAILY [facility] Last Admin: 10/11/17 09:31 Dose: 250 mls/hr Piperacillin Sod/Tazobactam (Sod 2.25 gm/ Dextrose) 50 mls @ 100 mls/hr IVPB Q8H-IV [facility] Last Admin: 10/11/17 09:31 Dose: 100 mls/hr Propofol (Diprivan -) 1,000,000 mcg in 100 mls @ 3.388 mls/hr IVPB TITR SELVIN; 10 MCG/KG/MIN PRN Reason: Protocol Last Admin: 10/11/17 09:33 Dose: 25 mcg/kg/min, 8.471 mls/hr Dextrose (D10w -) 1,000 mls @ 42 mls/hr IV ASDIR [facility]VIN Last Admin: 10/10/17 21:11 Dose: Not Given Phenylephrine HCl 20,000 mcg/ (Sodium Chloride) 250 mls @ 75 mls/hr IVPB ASDIR SELVIN; 100 MCG/MIN PRN Reason: Protocol Last Admin: 10/10/17 21:12 Dose: Not Given Sodium Chloride (Normal Saline -) 250 mls @ 3,000 mls/hr IV PRN PRN PRN Reason: Hypotension during Dialysis Stop: 10/09/17 09:44 Insulin Aspart (Novolog Vial Sliding Scale -) 1 vial SQ ACHS SEL[facility]IN PRN Reason: Protocol Last Admin: 10/11/17 12:00 Dose: Not Given Insulin Detemir (Levemir Vial) 14 units SQ HS [facility] Last Admin: 10/10/17 21:13 Dose: 14 units Metoprolol Tartrate (Lopressor Injection -) 5 mg IVPUSH Q4H PRN PRN Reason: TACHYCARDIA Last Admin: 10/05/17 17:49 Dose: 5 mg Midazolam HCl (Versed -) 2 mg IVPUSH Q2H PRN PRN Reason: AGITATION Last Admin: 10/04/17 01:14 Dose: 2 mg Pantoprazole Sodium (Protonix Iv) 40 mg IVPUSH DAILY [facility] Last Admin: 10/11/17 09:31 Dose: 40 mg - Objective Vital Signs: Vital Signs Temperature 98.8 F 10/11/17 10:00 Pulse Rate 79 10/11/17 12:00 Respiratory Rate 16 10/11/17 12:00 Blood Pressure 140/60 10/11/17 12:00 O2 Sat by Pulse Oximetry (%) 100 10/11/17 10:18 HENT: Yes: Normocephalic Neck: Yes: Trachea Midline Cardiovascular: Yes: Tachycardia, Pulse Irregular, S1, S2 Respiratory: Yes: CTA Bilaterally, Intubated, Mechanically Ventilated Gastrointestinal: Yes: Normal Bowel Sounds, Soft Genitourinary: No: CVA Tenderness - Left, CVA Tenderness - Right Neurological: Yes: Alert, Oriented Psychiatric: Yes: Alert Labs: CBC, BMP 10/11/17 05:25 10/11/17 05:25 INR, PTT INR 1.09 (0.82-1.09) 10/06/17 14:10 Problem List - Problems (1) DKA (diabetic ketoacidoses) Code(s): E13.10 - OTH DIABETES MELLITUS WITH KETOACIDOSIS WITHOUT COMA (2) Pneumonia allergic Code(s): J82 - PULMONARY EOSINOPHILIA, NOT ELSEWHERE CLASSIFIED (3) Diabetes mellitus Code(s): E11.9 - TYPE 2 DIABETES MELLITUS WITHOUT COMPLICATIONS (4) SHANTA (acute kidney injury) Code(s): N17.9 - ACUTE KIDNEY FAILURE, UNSPECIFIED (5) Anemia Code(s): D64.9 - ANEMIA, UNSPECIFIED Qualifiers: Other causes of anemia: acute posthemorrhagic (6) CKD (chronic kidney disease) stage 3, GFR 30-59 ml/min Code(s): N18.3 - CHRONIC KIDNEY DISEASE, STAGE 3 (MODERATE) Assessment/Plan 76 yo with pmhx of htn, hl, pad, afib (not on AC due to GIB), cva (no residual deficits), copd, dm, mgus, esthesioneuroblastoma treated with radiation therapy , chronic anemia s/p recent GIB admitted with dka, sepsis, resp failure. The patient now HD dependent because of the worsening SHANTA and azotemia. PRBC transfusion on dialysis. Orders reviewed with the RN. Danielle Hood MD
--- NOTE | 2017-10-11 15:02 | PN ---
Teaching Attending Note Name of Resident: Winston Cedeno ATTENDING PHYSICIAN STATEMENT I saw and evaluated the patient. I reviewed the resident's note and discussed the case with the resident. I agree with the resident's findings and plan as documented. SUBJECTIVE: Patient seen and examined in the ICU. Remains intubated, awake off sedation. Off Phenylephrine drip. AC Mode of vent, 40% FiO2. CXR: No gross change in the right base OBJECTIVE: Intake & Output 10/08/17 10/09/17 10/10/17 10/11/17 23:59 23:59 23:59 23:59 Intake Total 1759 743.8 1642 1024 Output Total 550 500 675 275 Balance 1209 243.8 967 749 Weight 135 lb 6.4 oz 133 lb 9.602 oz 141 lb 12.8 oz 141 lb 12.116 oz Last Vital Signs Temp Pulse Resp BP Pulse Ox 98.8 F 88 16 122/59 100 10/11/17 10:00 10/11/17 14:00 10/11/17 14:00 10/11/17 14:00 10/11/17 10:18 Active Medications Acetaminophen (Tylenol -) 650 mg PO Q6H PRN PRN Reason: FEVER Last Admin: 10/10/17 18:23 Dose: 650 mg Chlorhexidine Gluconate (Hibiclens For Decolonization -) 1 applic TP HS [facility] Last Admin: 10/10/17 21:12 Dose: 1 applic Diltiazem HCl (Cardizem -) 90 mg PO Q6HPO [facility] Last Admin: 10/11/17 13:26 Dose: Not Given Heparin Sodium (Porcine) (Heparin -) 5,000 unit SQ BID [facility] Last Admin: 10/11/17 09:30 Dose: 5,000 unit Azithromycin 500 mg/ Dextrose 250 mls @ 250 mls/hr IVPB DAILY [facility] Last Admin: 10/11/17 09:31 Dose: 250 mls/hr Piperacillin Sod/Tazobactam (Sod 2.25 gm/ Dextrose) 50 mls @ 100 mls/hr IVPB Q8H-IV [facility] Last Admin: 10/11/17 09:31 Dose: 100 mls/hr Propofol (Diprivan -) 1,000,000 mcg in 100 mls @ 3.388 mls/hr IVPB TITR SELVIN; 10 MCG/KG/MIN PRN Reason: Protocol Last Admin: 10/11/17 09:33 Dose: 25 mcg/kg/min, 8.471 mls/hr Dextrose (D10w -) 1,000 mls @ 42 mls/hr IV ASDIR [facility] Last Admin: 10/10/17 21:11 Dose: Not Given Phenylephrine HCl 20,000 mcg/ (Sodium Chloride) 250 mls @ 75 mls/hr IVPB ASDIR SELVIN; 100 MCG/MIN PRN Reason: Protocol Last Admin: 10/10/17 21:12 Dose: Not Given Sodium Chloride (Normal Saline -) 250 mls @ 3,000 mls/hr IV PRN PRN PRN Reason: Hypotension during Dialysis Stop: 10/09/17 09:44 Insulin Aspart (Novolog Vial Sliding Scale -) 1 vial SQ ACHS [facility] PRN Reason: Protocol Last Admin: 10/11/17 12:00 Dose: Not Given Insulin Detemir (Levemir Vial) 14 units SQ HS [facility] Last Admin: 10/10/17 21:13 Dose: 14 units Metoprolol Tartrate (Lopressor Injection -) 5 mg IVPUSH Q4H PRN PRN Reason: TACHYCARDIA Last Admin: 10/05/17 17:49 Dose: 5 mg Midazolam HCl (Versed -) 2 mg IVPUSH Q2H PRN PRN Reason: AGITATION Last Admin: 10/04/17 01:14 Dose: 2 mg Pantoprazole Sodium (Protonix Iv) 40 mg IVPUSH DAILY [facility] Last Admin: 10/11/17 09:31 Dose: 40 mg Gen: intubated, awake Heart: RRR Lung: scattered rhonchi, Right > Left Abd: soft, nontender Ext: left foot dusky Laboratory Results - last 24 hr 10/09/17 10/09/17 10/10/17 11:14 17:17 18:13 WBC RBC Hgb Hct MCV MCH MCHC RDW Plt Count MPV Puncture Site ABG pH ABG pCO2 at Pt Temp ABG pO2 at Pt Temp ABG HCO3 ABG O2 Sat (Measured) ABG O2 Content ABG Base Excess Ra Test O2 Delivery Device Oxygen Flow Rate Vent Mode Vent Rate Mechanical Rate PEEP Pressure Support Vent Sodium Potassium Chloride Carbon Dioxide Anion Gap BUN Creatinine Creat Clearance w eGFR POC Glucometer 139.67307 222.05098 211.83496 Random Glucose Calcium Phosphorus Magnesium Total Bilirubin AST ALT Alkaline Phosphatase Total Protein Albumin Blood Type Antibody Screen Crossmatch 10/11/17 10/11/17 10/11/17 05:25 05:25 05:25 WBC 15.4 H RBC 2.30 L Hgb 6.9 L* Hct 21.0 L MCV 91.6 MCH 30.1 MCHC 32.8 RDW 16.7 H Plt Count 374 MPV 9.1 Puncture Site ABG pH ABG pCO2 at Pt Temp ABG pO2 at Pt Temp ABG HCO3 ABG O2 Sat (Measured) ABG O2 Content ABG Base Excess Ra Test O2 Delivery Device Oxygen Flow Rate Vent Mode Vent Rate Mechanical Rate PEEP Pressure Support Vent Sodium 141 Potassium 5.6 H Chloride 104 Carbon Dioxide 28 Anion Gap 9 BUN 78 H Creatinine 3.9 H Creat Clearance w eGFR 15.03 POC Glucometer Random Glucose 44 L* D Calcium 7.2 L Phosphorus 6.8 H D Cancelled Magnesium 2.1 Cancelled Total Bilirubin 0.3 D AST 29 ALT 15 D Alkaline Phosphatase 74 Total Protein 4.2 L Albumin 1.0 L Blood Type Antibody Screen Crossmatch 10/11/17 10/11/17 10/11/17 05:45 08:06 08:10 WBC RBC Hgb Hct MCV MCH MCHC RDW Plt Count MPV Puncture Site ABG pH ABG pCO2 at Pt Temp ABG pO2 at Pt Temp ABG HCO3 ABG O2 Sat (Measured) ABG O2 Content ABG Base Excess Ra Test O2 Delivery Device Oxygen Flow Rate Vent Mode Vent Rate Mechanical Rate PEEP Pressure Support Vent Sodium Potassium Chloride Carbon Dioxide Anion Gap BUN Creatinine Creat Clearance w eGFR POC Glucometer 60.00423 113.32448 Random Glucose Calcium Phosphorus Magnesium Total Bilirubin AST ALT Alkaline Phosphatase Total Protein Albumin Blood Type O NEGATIVE Antibody Screen Negative Crossmatch See Detail 10/11/17 10/11/17 09:20 12:14 WBC RBC Hgb Hct MCV MCH MCHC RDW Plt Count MPV Puncture Site Left brachial ABG pH 7.42 ABG pCO2 at Pt Temp 40.3 ABG pO2 at Pt Temp 120.0 H D ABG HCO3 25.6 ABG O2 Sat (Measured) 98.4 ABG O2 Content 10.5 L ABG Base Excess 1.6 Ra Test Positive O2 Delivery Device A/c Oxygen Flow Rate 40% Vent Mode A/c Vent Rate 16 Mechanical Rate Yes PEEP 5.0 Pressure Support Vent 450 Sodium Potassium Chloride Carbon Dioxide Anion Gap BUN Creatinine Creat Clearance w eGFR POC Glucometer 130.80885 Random Glucose Calcium Phosphorus Magnesium Total Bilirubin AST ALT Alkaline Phosphatase Total Protein Albumin Blood Type Antibody Screen Crossmatch ASSESSMENT AND PLAN: Acute Hypoxic Respiratory Failure Pneumonia Septic Shock Acute on Chronic Renal Failure Lactic Acidosis Diabetic Ketoacidosis improving Paroxysmal Atrial Fibrillation with RVR HTN DM COPD r/o Critical Illness Myopathy/Polyneuropathy Left foot hypoperfusion likely due to pressors and underlying vascular insufficiency - Monitor off pressors - continue antibiotics - HD per renal - monitor urine output, creatinine - monitor I/Os - glucose control - rate control - anticoagulation per cardiology - taper FiO2 to keep SpO2 >90% - PMR for EMG - daily sedation vacations and spontaneous breathing trials as tolerated - enteral feeds - DVT/GI prophylaxis Dr Acosta Critical care time spent in reviewing chart, evaluating patient and formulating plan 36 min
--- NOTE | 2017-10-11 15:32 | PN ---
Progress Note (short form) - Note Progress Note: Intubated, Awake, Eyes open, in NAD On tube feeding BGM 60 in the morning Vital Signs Period Temp Pulse Resp BP Sys/Sy Pulse Ox Last 24 Hr 97.4 F-99.5 F 70-96 16-22 98-140/45-60 95-100 PE: Eyes open, awake, Neck: supple Lungs: few rhonchi CVS: S1S2 Abd: Benign Ext: No edema, dusky coloration left 1st and 2nd toes Neuro: Awake, open eyes, CMP Sodium 141 mmol/L (136-145) 10/11/17 05:25 Potassium 5.6 mmol/L (3.5-5.1) H 10/11/17 05:25 Chloride 104 mmol/L (98-107) 10/11/17 05:25 Carbon Dioxide 28 mmol/L (21-32) 10/11/17 05:25 Anion Gap 9 (8-16) 10/11/17 05:25 BUN 78 mg/dL (7-18) H 10/11/17 05:25 Creatinine 3.9 mg/dL (0.7-1.3) H 10/11/17 05:25 Creat Clearance w eGFR 15.03 (>60) 10/11/17 05:25 POC Glucometer 130.56871 UNITS (80-120) 10/11/17 12:14 Random Glucose 44 mg/dL (74-106) L* D 10/11/17 05:25 Hemoglobin A1c % 8.5 % (4.8-6.0) H D 10/04/17 06:00 Lactic Acid 2.0 mmol/L (0.0-2.0) 10/03/17 12:00 Calcium 7.2 mg/dL (8.5-10.1) L 10/11/17 05:25 Phosphorus 6.8 mg/dL (2.5-4.9) H D 10/11/17 05:25 Magnesium 2.1 mg/dL (1.8-2.4) 10/11/17 05:25 Iron 22 ug/dL (38-169) L 10/06/17 05:50 Ferritin 202.816 ng/ml (16.4-293.9) 10/06/17 05:50 Total Bilirubin 0.3 mg/dL (0.2-1.0) D 10/11/17 05:25 AST 29 U/L (15-37) 10/11/17 05:25 ALT 15 U/L (12-78) D 10/11/17 05:25 Alkaline Phosphatase 74 U/L (45-117) 10/11/17 05:25 Total Protein 4.2 g/dl (6.4-8.2) L 10/11/17 05:25 Albumin 1.0 g/dl (3.4-5.0) L 10/11/17 05:25 Vitamin B12 1602 pg/ml (180-914) H 10/06/17 05:50 Serum Folate 23 ng/ml (3.1-17.5) H 10/06/17 05:50 Current Medications Generic Name Dose Route Start Last Admin Trade Name Freq PRN Reason Stop Dose Admin Acetaminophen 650 mg 10/09/17 05:40 10/10/17 18:23 Tylenol - PO 650 mg Q6H PRN Administration FEVER Chlorhexidine Gluconate 1 applic 10/03/17 22:00 10/10/17 21:12 Hibiclens For Decolonization - TP 1 applic HS [facility]IN Administration Diltiazem HCl 90 mg 10/07/17 19:45 10/11/17 13:26 Cardizem - PO Not Given Q6HPO [facility]EL[facility]IN Heparin Sodium (Porcine) 5,000 unit 10/03/17 10:00 10/11/17 09:30 Heparin - SQ 5,000 unit BID [facility] Administration Azithromycin 500 mg/ Dextrose 250 mls @ 250 mls/hr 10/04/17 10:00 10/11/17 09 :31 IVPB 250 mls/hr DAILY [facility] Administration Piperacillin Sod/Tazobactam 50 mls @ 100 mls/hr 10/03/17 18:00 10/11/17 09:31 Sod 2.25 gm/ Dextrose IVPB 100 mls/hr Q8H-IV [facility] Administration Propofol 1,000,000 mcg in 100 mls @ 3.388 mls/hr 10/04/17 09:15 10/11/17 09: 33 Diprivan - IVPB 25 mcg/kg/min TITR SELVIN 8.471 mls/hr Protocol Administration 10 MCG/KG/MIN Dextrose 1,000 mls @ 42 mls/hr 10/06/17 18:45 04/15/18 21:11 D10w - IV Not Given ASDIR SELVIN Phenylephrine HCl 20,000 mcg/ 250 mls @ 75 mls/hr 10/07/17 19:00 10/10/17 21: 12 Sodium Chloride IVPB Not Given ASDIR SELVIN Protocol 100 MCG/MIN Sodium Chloride 250 mls @ 3,000 mls/hr 10/08/17 09:44 Normal Saline - IV 10/09/17 09:44 PRN PRN Hypotension during Dialysis Insulin Aspart 1 vial 10/10/17 16:30 10/11/17 12:00 Novolog Vial Sliding Scale - SQ Not Given ACHS SELVIN Protocol Insulin Detemir 14 units 10/10/17 22:00 10/10/17 21:13 Levemir Vial SQ 14 units HS [facility] Administration Metoprolol Tartrate 5 mg 10/03/17 19:00 10/05/17 17:49 Lopressor Injection - IVPUSH 5 mg Q4H PRN Administration TACHYCARDIA Midazolam HCl 2 mg 10/03/17 14:35 10/04/17 01:14 Versed - IVPUSH 2 mg Q2H PRN Administration AGITATION Pantoprazole Sodium 40 mg 10/05/17 14:45 10/11/17 09:31 Protonix Iv IVPUSH 40 mg DAILY [facility] Administration AP; Acute Hypoxic Respiratory Failure Pneumonia Septic Shock DM with Acidosis ? DKA,?Lactic acidosis Acute on Chronic Renal Failure Paroxysmal Atrial Fibrillation with RVR HTN COPD Ischemic chages left foot BGM Q6 hr Decrease Levemir 12 units daily Decrease Novolog coverage continue antibiotics Tube feeding as tolerated Chart reviewed Start D10W at 42 ml/hr if tube feeding is held or discontinued for any reason until pt is able to eat. Should be on long acting Insulin for now Vascular surgery consult noted Will f/u
--- NOTE | 2017-10-11 16:46 | PN ---
Progress Note, Physician History of Present Illness: continues to be intubated but patient awake and alert maintaining vital - Current Medication List Current Medications: Active Medications Acetaminophen (Tylenol -) 650 mg PO Q6H PRN PRN Reason: FEVER Last Admin: 10/10/17 18:23 Dose: 650 mg Chlorhexidine Gluconate (Hibiclens For Decolonization -) 1 applic TP HS [facility] Last Admin: 10/10/17 21:12 Dose: 1 applic Diltiazem HCl (Cardizem -) 90 mg PO Q6HPO [facility] Last Admin: 10/11/17 13:26 Dose: Not Given Heparin Sodium (Porcine) (Heparin -) 5,000 unit SQ BID [facility] Last Admin: 10/11/17 09:30 Dose: 5,000 unit Azithromycin 500 mg/ Dextrose 250 mls @ 250 mls/hr IVPB DAILY [facility] Last Admin: 10/11/17 09:31 Dose: 250 mls/hr Piperacillin Sod/Tazobactam (Sod 2.25 gm/ Dextrose) 50 mls @ 100 mls/hr IVPB Q8H-IV [facility] Last Admin: 10/11/17 09:31 Dose: 100 mls/hr Propofol (Diprivan -) 1,000,000 mcg in 100 mls @ 3.388 mls/hr IVPB TITR SEL[facility]IN; 10 MCG/KG/MIN PRN Reason: Protocol Last Admin: 10/11/17 09:33 Dose: 25 mcg/kg/min, 8.471 mls/hr Dextrose (D10w -) 1,000 mls @ 42 mls/hr IV ASDIR [facility] Last Admin: 10/10/17 21:11 Dose: Not Given Phenylephrine HCl 20,000 mcg/ (Sodium Chloride) 250 mls @ 75 mls/hr IVPB ASDIR SELVIN; 100 MCG/MIN PRN Reason: Protocol Last Admin: 10/10/17 21:12 Dose: Not Given Insulin Aspart (Novolog Vial Sliding Scale -) 1 vial SQ [facility] PRN Reason: Protocol Insulin Detemir (Levemir Vial) 12 units SQ [facility] Metoprolol Tartrate (Lopressor Injection -) 5 mg IVPUSH Q4H PRN PRN Reason: TACHYCARDIA Last Admin: 10/05/17 17:49 Dose: 5 mg Midazolam HCl (Versed -) 2 mg IVPUSH Q2H PRN PRN Reason: AGITATION Last Admin: 10/04/17 01:14 Dose: 2 mg Pantoprazole Sodium (Protonix Iv) 40 mg IVPUSH DAILY [facility] Last Admin: 10/11/17 09:31 Dose: 40 mg - Objective Vital Signs: Vital Signs Temperature 98.8 F 10/11/17 10:00 Pulse Rate 88 10/11/17 14:00 Respiratory Rate 22 10/11/17 15:05 Blood Pressure 122/59 10/11/17 14:00 O2 Sat by Pulse Oximetry (%) 100 10/11/17 10:18 Constitutional: Yes: No Distress, Calm Cardiovascular: Yes: S1, S2 Respiratory: Yes: Intubated, Mechanically Ventilated Gastrointestinal: Yes: Normal Bowel Sounds, Soft Musculoskeletal: Yes: WNL Extremities: Yes: Other Neurological: Yes: Other Psychiatric: Yes: Other Labs: CBC, BMP 10/11/17 05:25 10/11/17 05:25 INR, PTT INR 1.09 (0.82-1.09) 10/06/17 14:10 Assessment/Plan 76 year old male with a significant past medical history of COPD, GI bleed, diverticulosis, HLD, CVA, intussusception, umbilical hernia, DM, HTN, sinus cancer with excision and polypectomy Acute Hypoxic Respiratory Failure Pneumonia Septic Shock Acute on Chronic Renal Failure Lactic Acidosis Diabetic Ketoacidosis improving HTN DM COPD gluteal ulcer discoloration of the toes plan continue abx continue close monitoring monitor wbc close watch extubation when ready rest as per icu cc time 40 min
[2017-10-11] MEDS: PHENYLEPHRINE HCL 20,000 MCG in SODIUM CHLORIDE 248 ML IVPB SCH (19:17)
[2017-10-11] MEDS: DEXTROSE 10%-WATER - 1,000 ML IV SCH (19:17)
[2017-10-11] MEDS: CHLORHEXIDINE GLUCONATE 4% CLEANSER FOR DECOLONIZATION TP SCH (21:07)
[2017-10-11] MEDS ORDERED: INSULIN (LEVEMIR) 100 UNITS/ML UNITS SQ SCH (22:00)
[2017-10-12] MEDS: dilTIAZem HCL 30 MG TABLET (FP) PO SCH ×4 (00:09→18:02)
[2017-10-12] MEDS ORDERED: PIPERACILLIN/TAZOBACTAM 2.25 GM VIAL IVPB ONE ×3 (01:26→17:51)
[2017-10-12] MEDS ORDERED: DEXTROSE 5%-WATER - 50 ML IVPB ONE ×3 (01:26→17:51)
[2017-10-12] MEDS: PIPERACILLIN/TAZOB 2.25 GM 2.25 GM in DEXTROSE 5%-WATER - 50 ML IVPB SCH ×3 (01:31→18:01)
[2017-10-12 06:17] LABS: BASO % 0.3 % (0-2.0); EOS % 0.7 % (0-4.5); HEMATOCRIT 28.6 % (35.4-49); HEMOGLOBIN 9.7 GM/dL (11.7-16.9); LYMPH % 2.5 % (8-40); MCHC 33.9 g/dl (32.0-35.9); MEAN CELL VOLUME 88.7 fl (80-96); MONO % 3.8 % (3.8-10.2); NEUT % 92.7 % (42.8-82.8); PLATELET COUNT 406 K/MM3 (134-434); RBC 3.22 M/mm3 (4.00-5.60); RDW 16.8 % (11.9-15.9); WHITE BLOOD COUNT 16.2 K/mm3 (4.0-10.0)
[2017-10-12] MEDS: INSULIN SLIDING SCALE (NOVOLOG) 1 VIAL SQ SCH ×4 (06:24→21:19)
[2017-10-12 06:46] LABS: ANION GAP 10 (8-16); BLOOD UREA NITROGEN 46 mg/dL (7-18); CALCIUM 7.3 mg/dL (8.5-10.1); CHLORIDE 103 mmol/L (98-107); CO2 30 mmol/L (21-32); GLUCOSE,RANDOM 208 mg/dL (74-106); SODIUM 143 mmol/L (136-145)
[2017-10-12 06:52] LABS: ALK PHOS 86 U/L (45-117); BILIRUBIN,TOTAL 0.2 mg/dL (0.2-1.0); CREATININE 2.7 mg/dL (0.7-1.3); SGOT/AST 28 U/L (15-37); SGPT/ALT 17 U/L (12-78); TOT PROT 4.5 g/dl (6.4-8.2)
--- NOTE | 2017-10-12 07:45 | PN ---
Progress Note (short form) - Note Progress Note: Pt seen and examined. Remains intubated secondary to acute hypoxic respiratory failure. Septic shock. Currently off pressors. LLE ischemia most likely attributed to pressors ( hypoperfusion) as well as underlying vascular insufficiency. Still unable to locate dopplerable PT/DP pulses Problem List - Problems (1) Septic shock Assessment/Plan: Intubated --> care per respiratory Cont to monitor off pressors IV abx PRN HD PRN Monitor I/Os Tight glycemic control GI / DVT PPX Unable to do CTA as he is acute on chronic renal failure Could benefit from CO2 angio IF he is cleared/optimized from a medical and cardiac standpoint we could do as early as Above plan discussed with Dr. Brownlee and agrees. Code(s): A41.9 - SEPSIS, UNSPECIFIED ORGANISM; R65.21 - SEVERE SEPSIS WITH SEPTIC SHOCK (2) DKA (diabetic ketoacidoses) Code(s): E13.10 - OTH DIABETES MELLITUS WITH KETOACIDOSIS WITHOUT COMA (3) Pneumonia Code(s): J18.9 - PNEUMONIA, UNSPECIFIED ORGANISM (4) CKD (chronic kidney disease) Code(s): N18.9 - CHRONIC KIDNEY DISEASE, UNSPECIFIED
[2017-10-12] MEDS ORDERED: PT OWN MED DRAWER 7, Y5N ONE (09:26)
[2017-10-12] MEDS: PANTOPRAZOLE SODIUM 40 MG VIAL IVPUSH SCH (09:34)
[2017-10-12] MEDS: AZITHROMYCIN IVPB 500 MG in DEXTROSE 5%-WATER - 250 ML IVPB SCH (09:34)
[2017-10-12] MEDS: HEPARIN NA (PORCINE) 5,000 UNITS/ML 1ML VIAL SQ SCH ×2 (09:34→21:33)
--- NOTE | 2017-10-12 10:20 | PN ---
Progress Note (short form) - Note Progress Note: Patient much more alert today beckoning me into his room and seemingly understanding some of his medical problems including the vent, dialysis, cyanotic toes left foot, anemia and diabetes. He received 2 units of packed cells yesterday and dialysis. His CXR was reported as being progressively worse but clinically that is not evident. ? Pleural fluid with his albumin of 1. He seems to have more difficulty with moving his LLE and LUE than the right side. On Exam: Vital Signs Temp 99.0 F 10/12/17 06:00 Pulse 99 H 10/12/17 08:45 Resp 23 10/12/17 08:42 BP 121/54 10/12/17 08:00 Pulse Ox 96 10/12/17 08:45 Intake & Output 10/11/17 10/11/17 10/12/17 11:59 23:59 11:59 Intake Total 6637 136 7164 Output Total 275 800 200 Balance 749 -530 818 Weight 141 lb 12.116 oz 141 lb 2 oz Intake: IV 108 70 102 DIPRIVAN - 1,000,000 mcg 108 70 102 In 100 ml @ 10 MCG/KG/MIN 3.388 mls/hr IVPB TITR [facility]EL[facility] Rx#:[id number] IVPB 100 200 100 Tube Feeding 576 576 Tube Irrigant 240 240 Output: Urine 275 800 200 [place] 275 800 200 Other: Voiding Method Indwelling Catheter Indwelling Catheter Indwelling Catheter Bowel Movement Yes: Flexiseal Yes Yes Weight Measurement Method Built in Bedscale Built in Bedscale Alert Chest: No rales or wheezes but decreased breath sounds at bases Cor; tachycardia Abd: Slightly distended but soft and appears non tender Ext: Cyanotic toes left foot unchanged Moves RUE and LLE better than left side Abnormal Lab Results 10/11/17 10/12/17 10/12/17 08:10 05:20 05:20 WBC 16.2 H RBC 3.22 L D Hgb 9.7 L D Hct 28.6 L D RDW 16.8 H Neutrophils % 92.7 H Lymphocytes % 2.5 L BUN 46 H D Creatinine 2.7 H D Random Glucose 208 H D Calcium 7.3 L Total Protein 4.5 L Albumin 1.0 L Crossmatch See Detail IMP: Acute sepsis Acute on Chronic Renal Failure Acute Pulmonary Congestion and pneumonia Uncontrolled DM Acute Respiratory failure PVD with probable gangrenous changes 2 toes left foot Chronic anemia PLAN: Monitor Lab ? Angio LLE ? Weakness left side repeat CXR Continue feeding
[2017-10-12] MEDS: PROPOFOL 1,000,000 MCG/100 ML VIAL IVPB SCH (11:21)
--- NOTE | 2017-10-12 11:54 | PN ---
Teaching Attending Note Name of Resident: Curt Caputo ATTENDING PHYSICIAN STATEMENT I saw and evaluated the patient. I reviewed the resident's note and discussed the case with the resident. I agree with the resident's findings and plan as documented. SUBJECTIVE: Patient seen and examined in the ICU. Remains intubated, awake and interactive. Off Phenylephrine drip. AC Mode of vent, 40% FiO2. CXR: increase in bilateral infiltrates/effusions OBJECTIVE: Intake & Output 10/09/17 10/10/17 10/11/17 10/12/17 23:59 23:59 23:59 23:59 Intake Total 743.8 1642 1294 1018 Output Total 362 535 0361 200 Balance 243.8 967 219 818 Weight 133 lb 9.602 oz 141 lb 12.8 oz 141 lb 12.116 oz 141 lb 2 oz Last Vital Signs Temp Pulse Resp BP Pulse Ox 98.9 F 98 H 18 125/59 98 10/12/17 10:00 10/12/17 11:25 10/12/17 11:29 10/12/17 11:25 10/12/17 10:34 Active Medications Acetaminophen (Tylenol -) 650 mg PO Q6H PRN PRN Reason: FEVER Last Admin: 10/10/17 18:23 Dose: 650 mg Chlorhexidine Gluconate (Hibiclens For Decolonization -) 1 applic TP HS [facility] Last Admin: 10/11/17 21:07 Dose: 1 applic Diltiazem HCl (Cardizem -) 90 mg PO Q6HPO [facility] Last Admin: 10/12/17 11:33 Dose: 90 mg Heparin Sodium (Porcine) (Heparin -) 5,000 unit SQ BID [facility] Last Admin: 10/12/17 09:34 Dose: 5,000 unit Azithromycin 500 mg/ Dextrose 250 mls @ 250 mls/hr IVPB DAILY [facility] Last Admin: 10/12/17 09:34 Dose: 250 mls/hr Piperacillin Sod/Tazobactam (Sod 2.25 gm/ Dextrose) 50 mls @ 100 mls/hr IVPB Q8H-IV SELVIN Last Admin: 10/12/17 09:34 Dose: 100 mls/hr Propofol (Diprivan -) 1,000,000 mcg in 100 mls @ 3.388 mls/hr IVPB TITR SELVIN; 10 MCG/KG/MIN PRN Reason: Protocol Last Admin: 10/12/17 11:21 Dose: Not Given Dextrose (D10w -) 1,000 mls @ 42 mls/hr IV ASDIR SELVIN Last Admin: 10/11/17 19:17 Dose: Not Given Phenylephrine HCl 20,000 mcg/ (Sodium Chloride) 250 mls @ 75 mls/hr IVPB ASDIR SELVIN; 100 MCG/MIN PRN Reason: Protocol Last Admin: 10/11/17 19:17 Dose: Not Given Insulin Aspart (Novolog Vial Sliding Scale -) 1 vial SQ ACHS SELVIN PRN Reason: Protocol Last Admin: 10/12/17 11:11 Dose: 4 units Insulin Detemir (Levemir Vial) 12 units SQ HS SELVIN Last Admin: 10/11/17 21:22 Dose: 12 units Metoprolol Tartrate (Lopressor Injection -) 5 mg IVPUSH Q4H PRN PRN Reason: TACHYCARDIA Last Admin: 10/05/17 17:49 Dose: 5 mg Midazolam HCl (Versed -) 2 mg IVPUSH Q2H PRN PRN Reason: AGITATION Last Admin: 10/04/17 01:14 Dose: 2 mg Pantoprazole Sodium (Protonix Iv) 40 mg IVPUSH DAILY SELVIN Last Admin: 10/12/17 09:34 Dose: 40 mg Gen: intubated, awake Heart: RRR Lung: scattered rhonchi, Right > Left Abd: soft, nontender Ext: left foot dusky Laboratory Results - last 24 hr 10/10/17 10/11/17 10/11/17 21:01 08:10 12:14 WBC RBC Hgb Hct MCV MCH MCHC RDW Plt Count MPV Neutrophils % Lymphocytes % Monocytes % Eosinophils % Basophils % Sodium Potassium Chloride Carbon Dioxide Anion Gap BUN Creatinine Creat Clearance w eGFR POC Glucometer 162.08907 130.69938 Random Glucose Calcium Total Bilirubin AST ALT Alkaline Phosphatase Total Protein Albumin Stool Occult Blood Blood Type O NEGATIVE Antibody Screen Negative Crossmatch See Detail 10/11/17 10/11/17 10/12/17 15:00 17:15 05:20 WBC 16.2 H RBC 3.22 L D Hgb 9.7 L D Hct 28.6 L D MCV 88.7 MCH 30.0 MCHC 33.9 RDW 16.8 H Plt Count 406 MPV 9.0 Neutrophils % 92.7 H Lymphocytes % 2.5 L Monocytes % 3.8 Eosinophils % 0.7 Basophils % 0.3 Sodium Potassium Chloride Carbon Dioxide Anion Gap BUN Creatinine Creat Clearance w eGFR POC Glucometer 212.14802 Random Glucose Calcium Total Bilirubin AST ALT Alkaline Phosphatase Total Protein Albumin Stool Occult Blood Negative Blood Type Antibody Screen Crossmatch 10/12/17 10/12/17 10/12/17 05:20 05:23 11:10 WBC RBC Hgb Hct MCV MCH MCHC RDW Plt Count MPV Neutrophils % Lymphocytes % Monocytes % Eosinophils % Basophils % Sodium 143 Potassium 5.0 Chloride 103 Carbon Dioxide 30 Anion Gap 10 BUN 46 H D Creatinine 2.7 H D Creat Clearance w eGFR 22.97 POC Glucometer 238.94497 174.96406 Random Glucose 208 H D Calcium 7.3 L Total Bilirubin 0.2 D AST 28 ALT 17 Alkaline Phosphatase 86 Total Protein 4.5 L Albumin 1.0 L Stool Occult Blood Blood Type Antibody Screen Crossmatch ASSESSMENT AND PLAN: Acute Hypoxic Respiratory Failure Pneumonia Septic Shock Acute on Chronic Renal Failure Lactic Acidosis Diabetic Ketoacidosis improving Paroxysmal Atrial Fibrillation with RVR HTN DM COPD r/o Critical Illness Myopathy/Polyneuropathy Left foot hypoperfusion likely due to pressors and underlying vascular insufficiency - Monitor off pressors - continue antibiotics - HD per renal - monitor urine output, creatinine - monitor I/Os - glucose control - rate control - anticoagulation per cardiology - taper FiO2 to keep SpO2 >90% - enteral feeds - DVT/GI prophylaxis - SBTs with trial of extubation Dr Acosta Critical care time spent in reviewing chart, evaluating patient and formulating plan 36 min
--- NOTE | 2017-10-12 12:12 | PN ---
Progress Note (short form) - Note Progress Note: S/P extubation today Awake, Eyes open, in NAD Off tube feeding Vital Signs Period Temp Pulse Resp BP Sys/Sy Pulse Ox Last 24 Hr 98.2 F-99.6 F 88-115 14-23 100-145/50-91 95-100 PE: Eyes open, awake, Neck: supple Lungs: few rhonchi CVS: S1S2 Abd: Benign Ext: No edema, dusky coloration left 1st and 2nd toes Neuro: Awake, open eyes, CMP Sodium 143 mmol/L (136-145) 10/12/17 05:20 Potassium 5.0 mmol/L (3.5-5.1) 10/12/17 05:20 Chloride 103 mmol/L (98-107) 10/12/17 05:20 Carbon Dioxide 30 mmol/L (21-32) 10/12/17 05:20 Anion Gap 10 (8-16) 10/12/17 05:20 BUN 46 mg/dL (7-18) H D 10/12/17 05:20 Creatinine 2.7 mg/dL (0.7-1.3) H D 10/12/17 05:20 Creat Clearance w eGFR 22.97 (>60) 10/12/17 05:20 POC Glucometer 174.45822 UNITS (80-120) 10/12/17 11:10 Random Glucose 208 mg/dL (74-106) H D 10/12/17 05:20 Hemoglobin A1c % 8.5 % (4.8-6.0) H D 10/04/17 06:00 Lactic Acid 2.0 mmol/L (0.0-2.0) 10/03/17 12:00 Calcium 7.3 mg/dL (8.5-10.1) L 10/12/17 05:20 Phosphorus 6.8 mg/dL (2.5-4.9) H D 10/11/17 05:25 Magnesium 2.1 mg/dL (1.8-2.4) 10/11/17 05:25 Iron 22 ug/dL (38-169) L 10/06/17 05:50 Ferritin 202.816 ng/ml (16.4-293.9) 10/06/17 05:50 Total Bilirubin 0.2 mg/dL (0.2-1.0) D 10/12/17 05:20 AST 28 U/L (15-37) 10/12/17 05:20 ALT 17 U/L (12-78) 10/12/17 05:20 Alkaline Phosphatase 86 U/L (45-117) 10/12/17 05:20 Total Protein 4.5 g/dl (6.4-8.2) L 10/12/17 05:20 Albumin 1.0 g/dl (3.4-5.0) L 10/12/17 05:20 Vitamin B12 1602 pg/ml (180-914) H 10/06/17 05:50 Serum Folate 23 ng/ml (3.1-17.5) H 10/06/17 05:50 Current Medications Generic Name Dose Route Start Last Admin Trade Name Freq PRN Reason Stop Dose Admin Acetaminophen 650 mg 10/09/17 05:40 10/10/17 18:23 Tylenol - PO 650 mg Q6H PRN Administration FEVER Chlorhexidine Gluconate 1 applic 10/03/17 22:00 10/11/17 21:07 Hibiclens For Decolonization - TP 1 applic HS SELVIN Administration Diltiazem HCl 90 mg 10/07/17 19:45 10/12/17 11:33 Cardizem - PO 90 mg Q6HPO SELVIN Administration Heparin Sodium (Porcine) 5,000 unit 10/03/17 10:00 10/12/17 09:34 Heparin - SQ 5,000 unit BID SELVIN Administration Azithromycin 500 mg/ Dextrose 250 mls @ 250 mls/hr 10/04/17 10:00 10/12/17 09 :34 IVPB 250 mls/hr DAILY SELVIN Administration Piperacillin Sod/Tazobactam 50 mls @ 100 mls/hr 10/03/17 18:00 10/12/17 09:34 Sod 2.25 gm/ Dextrose IVPB 100 mls/hr Q8H-IV SELVIN Administration Propofol 1,000,000 mcg in 100 mls @ 3.388 mls/hr 10/04/17 09:15 10/12/17 11: 21 Diprivan - IVPB Not Given TITR SELVIN Protocol 10 MCG/KG/MIN Dextrose 1,000 mls @ 42 mls/hr 10/06/17 18:45 10/11/17 19:17 D10w - IV Not Given ASDIR SELVIN Phenylephrine HCl 20,000 mcg/ 250 mls @ 75 mls/hr 10/07/17 19:00 10/11/17 19: 17 Sodium Chloride IVPB Not Given ASDIR SELVIN Protocol 100 MCG/MIN Insulin Aspart 1 vial 10/11/17 16:30 10/12/17 11:11 Novolog Vial Sliding Scale - SQ 4 units ACHS SELVIN Administration Protocol Insulin Detemir 12 units 10/11/17 22:00 10/11/17 21:22 Levemir Vial SQ 12 units HS SELVIN Administration Metoprolol Tartrate 5 mg 10/03/17 19:00 10/05/17 17:49 Lopressor Injection - IVPUSH 5 mg Q4H PRN Administration TACHYCARDIA Midazolam HCl 2 mg 10/03/17 14:35 10/04/17 01:14 Versed - IVPUSH 2 mg Q2H PRN Administration AGITATION Pantoprazole Sodium 40 mg 10/05/17 14:45 10/12/17 09:34 Protonix Iv IVPUSH 40 mg DAILY SELVIN Administration AP; Acute Hypoxic Respiratory Failure s/p Extubation Pneumonia Septic Shock DM with Acidosis ? DKA,?Lactic acidosis Acute on Chronic Renal Failure Paroxysmal Atrial Fibrillation with RVR HTN COPD Ischemic changes left foot BGM Q6 hr Decrease Levemir 10 units daily Decrease Novolog coverage continue antibiotics Tube feeding as tolerated Chart reviewed Start D10W at 42 ml/hr as pt is off tube feeding. Continue until food intake is adequate. As pt was admitted with acidosis possibly DKA, need to continue to administer long acting Insulin Will f/u
[2017-10-12] MEDS: DEXTROSE 10%-WATER - 1,000 ML IV SCH ×2 (12:32→21:18)
--- NOTE | 2017-10-12 13:35 | PN ---
Physical Exam: SUBJECTIVE: Patient seen and examined in ICU, no acute events overnight. Open eyes to commands, moves all extremities. OBJECTIVE: Vital Signs Period Temp Pulse Resp BP Sys/Sy Pulse Ox Last 24 Hr 98.2 F-99.6 F 88-115 14-29 100-145/50-91 95-100 GENERAL: The patient is awake, alert, intubated HEAD: Normal with no signs of trauma. EYES: PERRL, extraocular movements intact, sclera anicteric, conjunctiva clear. ENT: Ears normal, nares patent, oropharynx clear without exudates, moist mucous membranes. NECK: Trachea midline, full range of motion, supple. LUNGS: Breath sounds equal, no accessory muscle use. HEART: Regular rate and rhythm, S1, S2 without murmur, rub or gallop. EXTREMITIES: 2+ pulses, warm, well-perfused, in upper extremities. 1+ pulses in lower extremities NEUROLOGICAL: Cranial nerves II through XII grossly intact. Gait not observed. Laboratory Results - last 24 hr 10/10/17 10/11/17 10/11/17 21:01 08:10 15:00 WBC RBC Hgb Hct MCV MCH MCHC RDW Plt Count MPV Neutrophils % Lymphocytes % Monocytes % Eosinophils % Basophils % Sodium Potassium Chloride Carbon Dioxide Anion Gap BUN Creatinine Creat Clearance w eGFR POC Glucometer 162.96188 Random Glucose Calcium Total Bilirubin AST ALT Alkaline Phosphatase Total Protein Albumin Stool Occult Blood Negative Blood Type O NEGATIVE Antibody Screen Negative Crossmatch See Detail 10/11/17 10/12/17 10/12/17 17:15 05:20 05:20 WBC 16.2 H RBC 3.22 L D Hgb 9.7 L D Hct 28.6 L D MCV 88.7 MCH 30.0 MCHC 33.9 RDW 16.8 H Plt Count 406 MPV 9.0 Neutrophils % 92.7 H Lymphocytes % 2.5 L Monocytes % 3.8 Eosinophils % 0.7 Basophils % 0.3 Sodium 143 Potassium 5.0 Chloride 103 Carbon Dioxide 30 Anion Gap 10 BUN 46 H D Creatinine 2.7 H D Creat Clearance w eGFR 22.97 POC Glucometer 212.18265 Random Glucose 208 H D Calcium 7.3 L Total Bilirubin 0.2 D AST 28 ALT 17 Alkaline Phosphatase 86 Total Protein 4.5 L Albumin 1.0 L Stool Occult Blood Blood Type Antibody Screen Crossmatch 10/12/17 10/12/17 05:23 11:10 WBC RBC Hgb Hct MCV MCH MCHC RDW Plt Count MPV Neutrophils % Lymphocytes % Monocytes % Eosinophils % Basophils % Sodium Potassium Chloride Carbon Dioxide Anion Gap BUN Creatinine Creat Clearance w eGFR POC Glucometer 238.10716 174.64575 Random Glucose Calcium Total Bilirubin AST ALT Alkaline Phosphatase Total Protein Albumin Stool Occult Blood Blood Type Antibody Screen Crossmatch Active Medications Generic Name Dose Route Start Last Admin Trade Name Freq PRN Reason Stop Dose Admin Acetaminophen 650 mg 10/09/17 05:40 10/10/17 18:23 Tylenol - PO 650 mg Q6H PRN Administration FEVER Chlorhexidine Gluconate 1 applic 10/03/17 22:00 10/11/17 21:07 Hibiclens For Decolonization - TP 1 applic HS SELVIN Administration Diltiazem HCl 90 mg 10/07/17 19:45 10/12/17 11:33 Cardizem - PO 90 mg Q6HPO SELVIN Administration Heparin Sodium (Porcine) 5,000 unit 10/03/17 10:00 10/12/17 09:34 Heparin - SQ 5,000 unit BID SELVIN Administration Azithromycin 500 mg/ Dextrose 250 mls @ 250 mls/hr 10/04/17 10:00 10/12/17 09 :34 IVPB 250 mls/hr DAILY SELVIN Administration Piperacillin Sod/Tazobactam 50 mls @ 100 mls/hr 10/03/17 18:00 10/12/17 09:34 Sod 2.25 gm/ Dextrose IVPB 100 mls/hr Q8H-IV SELVIN Administration Propofol 1,000,000 mcg in 100 mls @ 3.388 mls/hr 10/04/17 09:15 10/12/17 11: 21 Diprivan - IVPB Not Given TITR SELVIN Protocol 10 MCG/KG/MIN Dextrose 1,000 mls @ 42 mls/hr 10/06/17 18:45 10/12/17 12:32 D10w - IV 42 mls/hr ASDIR SELVIN Administration Phenylephrine HCl 20,000 mcg/ 250 mls @ 75 mls/hr 10/07/17 19:00 10/11/17 19: 17 Sodium Chloride IVPB Not Given ASDIR SELVIN Protocol 100 MCG/MIN Insulin Aspart 1 vial 10/12/17 12:14 Novolog Vial Sliding Scale - SQ ACHS SELVIN Protocol Insulin Detemir 10 units 10/12/17 22:00 Levemir Vial SQ HS [facility] Metoprolol Tartrate 5 mg 10/03/17 19:00 10/05/17 17:49 Lopressor Injection - IVPUSH 5 mg Q4H PRN Administration TACHYCARDIA Midazolam HCl 2 mg 10/03/17 14:35 10/04/17 01:14 Versed - IVPUSH 2 mg Q2H PRN Administration AGITATION Pantoprazole Sodium 40 mg 10/05/17 14:45 10/12/17 09:34 Protonix Iv IVPUSH 40 mg DAILY [facility] Administration ASSESSMENT/PLAN: Patient is a 76 year old male with who presented for acute respiratory failure and was found to have pneumonia and DKA. Patient is admitted to ICU for further monitoring and management. Pulmonology #Acute Hypoxic Respiratory Failure -Likely secondary to Pneumonia -Continue Zosyn 2.25mg IV Q8H AND Azithromycin 500mg IV -Patient off Versed -Extubated today, stable ventilatory status on venti mask #COPD -Continue Nebulizers -Continue Ventilation -Continue IV Abx Infectious Disease #Septic Shock secondary to Pneumonia -Continue IV abx Azithromycin and Zosyn -Blood cultures negative -Sputum cultures staph, hector sensitive -Legionella negative -HOB -Aspiration precaution Nephrology #Acute on Chronic Renal Failure -Likely ATN secondary from Septic hock -Urine output still slow, 200 this morning. -Acidosis and Cr improved after dialysis -Dialysis today, will give 2U PRBC during -Tolerated dialysis without incident #AG and Non-AG Metabolic acidosis -Acidosis resolved Cardiovascular #Paroxysmal Atrial Fibrillation -Continue Cardizem 60mg Q6H -Metoprolol 5mg IVP Q4H PRN for Tachycardia #HTN -Patient not hypertensive -Will continue to monitor BP #CAD/PVD -Ischemia in left toe likely secondary to pressors, hypotension, and prior surgery in the left foot. -DP pulses returned -Vascular aware, following -Will optimize medically -Not candidate for asa, heparin due to hgb drop, h/o gi bleed Endocrine #DKA-Resolved -Continue ISS -Continue BGM -Continue Levemir Neurology #Rule out Critical Illness Myopathy/Polyneuropathy -Patient following commands, moving all four extremities, deconditioned -Start PT F/E/N -On no fluids -Electrolytes wnl -On tube feeds- Glucerna, failed speech and swallow Prophylaxis -High risk. Heparin 5000 units SQ for DVT -Protonix 40mg IVP daily Disposition -Full code -Continue sedation vacation and spontaneous breathing trials Visit type - Emergency Visit Emergency Visit: Yes ED Registration Date: 10/03/17 Care time: The patient presented to the Emergency Department on the above date and was hospitalized for further evaluation of their emergent condition. - New Patient This patient is new to me today: No - Critical Care Critical Care patient: Yes Total Critical Care Time (in minutes): 35 Critical Care Statement: The care of this patient involved high complexity decision making to prevent further life threatening deterioration of the patient 's condition and/or to evaluate & treat vital organ system(s) failure or risk of failure.
--- NOTE | 2017-10-12 13:39 | CONSULT ---
Admitting History and Physical - Primary Care Physician PCP: Lachelle Bustamante - Admission History of Present Illness: 76 y/o man with multiple medical problems (COPD, DM, HTH) presented with multilobar pna, DKA, SHANTA, sepsis, and mixed respiratory failure intubated 10/03. Extubated today. Known to me from 07/2017 admission. (-) aspiration during mbs, however meek suspected with c/o dysphagia. 08/12/17 Sp path note- Diflucan added to Nystatin, because of persistent black tongue. Looking a little better today. Continue mouth/tongue care, gently with toothbrush and hold nystatin in mouth for a bit before swallowing to coat tongue. Avoid drinking/eating after Nystatin. Swallowing has improved. Pt eats regular food at home. He was downgraded here due to symptoms of Dysphagia, likely secondary to candiuda. MBS was (-). soft, regular food,ordered with chopped meat with gravy. Supplements between meals. Tongue is still black. h/o radiation tx October 2016 to sinuses- related? Pt reports black tongue is not acute. Case reviewed with Doctors on case. Consider ENT consult - Past Medical History FI[employer]IE[employer]S AIDE: Yes: CVA (no residual deficits) Cardiovascular: Yes: HTN, Hyperlipdemia, Murmur (since childhood), Other ( atherosclerosis) Pulmonary: Yes: Bronchitis (chronic mild (smoking related)) Heme/Onc: Yes: Other (MGUS) Musculoskeletal: Yes: Osteoarthritis Endocrine: Yes: Diabetes Mellitus - Past Surgical History Past Surgical History: Yes: Amputation (bilateral toes #5), Hernia Repair ( Bilateral inguinal hernia repair about 30 years ago. Lt toe amput (old) tonsillect), Tonsillectomy (Lt toe amp (old)) - Smoking History Smoking history: Current every day smoker Have you smoked in the past 12 months: Yes Aproximately how many cigarettes per day: 15 - Alcohol/Substance Use Hx Alcohol Use: No History of Substance Use: reports: None - Social History ADL: Independent (with [place]) History of Recent Travel: No History - Admission Reason For Visit: DIABETIC KETOACIDOSIS,PNEUMONIA,DEHYDRATION - General Mental Status: Alert and Oriented, Awake and Alert, Able to Follow Commands Attention: Intact - Hearing Hearing: Normal Hearing Aide: No With Patient: No Speech Evaluation - Communication Primary Language: AMHARIC Oral Expression Ability: Yes: Non-Vocal (Aphonic. Extubated today after prolonged intubation.) - Speech Characteristics Voice Phonatory-based Quality: Yes: Weak Articulation: Yes: Precise - Swallow Evaluation/Bedside Assessment Current Nutritional Intake: NPO A-P Transit: WFL Recommendations - Speech Evaluation, Impression/Plan Impression: Extubated today. Aphonic.High risk of aspiration at this time. Tongue pink/no longer black noted on last admission. - Dysphagia Impressions/Plan Swallowing Skills: Impaired Dysphagia Impressions: Severe Impairment, Suspect Aspiration *Silent aspiration: cannot be R/O at bedside Recommendations: Modified Barium Swallow (once voice improves), Other (NGT for now)
--- NOTE | 2017-10-12 13:39 | PN ---
Progress Note (short form) - Note Progress Note: Chief Complaint: resp failure History of Present Illness: extubated today, off pressors. awake and alert, weak. sob improving. no cp, palps, dizziness. Current Medications Acetaminophen (Tylenol -) 650 mg PO Q6H PRN PRN Reason: FEVER Last Admin: 10/10/17 18:23 Dose: 650 mg Chlorhexidine Gluconate (Hibiclens For Decolonization -) 1 applic TP HS [facility] Last Admin: 10/11/17 21:07 Dose: 1 applic Diltiazem HCl (Cardizem -) 90 mg PO Q6HPO [facility] Last Admin: 10/12/17 11:33 Dose: 90 mg Heparin Sodium (Porcine) (Heparin -) 5,000 unit SQ BID [facility] Last Admin: 10/12/17 09:34 Dose: 5,000 unit Azithromycin 500 mg/ Dextrose 250 mls @ 250 mls/hr IVPB DAILY [facility] Last Admin: 10/12/17 09:34 Dose: 250 mls/hr Piperacillin Sod/Tazobactam (Sod 2.25 gm/ Dextrose) 50 mls @ 100 mls/hr IVPB Q8H-IV [facility] Last Admin: 10/12/17 09:34 Dose: 100 mls/hr Propofol (Diprivan -) 1,000,000 mcg in 100 mls @ 3.388 mls/hr IVPB TITR [facility]; 10 MCG/KG/MIN PRN Reason: Protocol Last Admin: 10/12/17 11:21 Dose: Not Given Dextrose (D10w -) 1,000 mls @ 42 mls/hr IV ASDIR [facility] Last Admin: 10/12/17 12:32 Dose: 42 mls/hr Phenylephrine HCl 20,000 mcg/ (Sodium Chloride) 250 mls @ 75 mls/hr IVPB ASDIR [facility]; 100 MCG/MIN PRN Reason: Protocol Last Admin: 10/11/17 19:17 Dose: Not Given Insulin Aspart (Novolog Vial Sliding Scale -) 1 vial SQ ACHS [facility] PRN Reason: Protocol Insulin Detemir (Levemir Vial) 10 units SQ [facility] Metoprolol Tartrate (Lopressor Injection -) 5 mg IVPUSH Q4H PRN PRN Reason: TACHYCARDIA Last Admin: 10/05/17 17:49 Dose: 5 mg Midazolam HCl (Versed -) 2 mg IVPUSH Q2H PRN PRN Reason: AGITATION Last Admin: 10/04/17 01:14 Dose: 2 mg Pantoprazole Sodium (Protonix Iv) 40 mg IVPUSH DAILY [facility] Last Admin: 10/12/17 09:34 Dose: 40 mg - Objective Vital Signs: Vital Signs - 24 hr 10/11/17 10/11/17 10/11/17 14:00 15:05 15:25 Temperature 98.2 F Pulse Rate 88 93 H Respiratory 16 22 16 Rate Blood Pressure 122/59 133/60 O2 Sat by Pulse Oximetry (%) 10/11/17 10/11/17 10/11/17 15:30 16:00 16:30 Temperature 98.6 F Pulse Rate 94 H 99 H 104 H Respiratory 16 20 16 Rate Blood Pressure 135/56 134/58 117/91 O2 Sat by Pulse Oximetry (%) 10/11/17 10/11/17 10/11/17 17:00 17:30 18:00 Temperature Pulse Rate 104 H 98 H 100 H Respiratory 16 16 16 Rate Blood Pressure 142/68 106/56 134/58 O2 Sat by Pulse Oximetry (%) 10/11/17 10/11/17 10/11/17 18:30 18:33 18:57 Temperature Pulse Rate 102 H 98 H Respiratory 16 19 16 Rate Blood Pressure 140/63 142/64 O2 Sat by Pulse Oximetry (%) 10/11/17 10/11/17 10/11/17 19:17 19:53 20:25 Temperature 98.4 F Pulse Rate 109 H Respiratory 16 Rate Blood Pressure 145/56 O2 Sat by Pulse 100 Oximetry (%) 10/11/17 10/11/17 10/11/17 20:29 21:10 22:00 Temperature 99.5 F Pulse Rate 115 H 115 H Respiratory 16 18 20 Rate Blood Pressure 125/61 135/68 O2 Sat by Pulse Oximetry (%) 10/11/17 10/12/17 10/12/17 23:35 00:00 02:00 Temperature 99.6 F Pulse Rate 105 H 110 H Respiratory 16 16 18 Rate Blood Pressure 100/50 120/66 O2 Sat by Pulse Oximetry (%) 10/12/17 10/12/17 10/12/17 02:05 04:00 04:10 Temperature Pulse Rate 108 H Respiratory 18 18 16 Rate Blood Pressure 121/59 O2 Sat by Pulse Oximetry (%) 10/12/17 10/12/17 10/12/17 06:00 06:41 08:00 Temperature 99.0 F Pulse Rate 103 H 98 H Respiratory 16 16 18 Rate Blood Pressure 124/60 121/54 O2 Sat by Pulse Oximetry (%) 10/12/17 10/12/17 10/12/17 08:15 08:42 08:45 Temperature Pulse Rate 99 H Respiratory 17 23 Rate Blood Pressure O2 Sat by Pulse 98 96 Oximetry (%) 10/12/17 10/12/17 10/12/17 10:00 10:34 11:25 Temperature 98.9 F Pulse Rate 94 H 98 H Respiratory 29 H 22 Rate Blood Pressure 125/59 125/59 O2 Sat by Pulse 97 98 Oximetry (%) 10/12/17 10/12/17 11:29 12:04 Temperature Pulse Rate 92 H Respiratory 18 17 Rate Blood Pressure 119/53 O2 Sat by Pulse Oximetry (%) Intake & Output 10/10/17 10/11/17 10/12/17 10/13/17 07:59 07:59 07:59 07:59 Intake Total 701.6 2363 1288 Output Total 537 813 6339 Balance 401.6 1413 288 Weight 141 lb 12.8 oz 141 lb 12.116 oz 141 lb 2 oz Constitutional: Yes: cachectic, No Distress, Calm Cardiovascular: Yes: Regular Rate and Rhythm. No: JVD (tds exam), Gallop, Murmur Respiratory: Yes: Regular, bibasilar rales, nl effort Extremities: No: Cold Edema: No Neurological: Yes: Alert. No: Seizure Psychiatric: No: Agitated dimished dp/pt, discoloration of left foot. Labs: CBC, BMP 10/12/17 05:20 10/12/17 05:20 Laboratory Tests 10/12/17 10/12/17 05:20 18:30 Albumin 1.0 L Stool Occult Blood Positive Assessment/Plan cxr 10/05: RLL consolidation and pleural fluid. cxr 10/08 improved aeration at right base. Echo 06/2017: mod lvh. nl lv fn. nl rv size/fn. 1+ lae. mod-sev mac with mod ms. 1+ mr. nl rvsp. 1+ ao dilation tele: SR with pac's. no recurrence of afib. A/P 76 yo with pmhx of htn, hl, pad, afib (not on AC due to GIB), cva (no residual deficits), copd, dm, mgus, esthesioneuroblastoma treated with radiation therapy , chronic anemia s/p recent GIB admitted with dka, sepsis, resp failure. Hospital course now complicated by episode of afib with rvr afib - not previously a candidate for AC b/c of prior hx of GIB. remains anemic. - s/p IV amio. started po dilt 10/05. now back in sr. hr controlled. - off Amio, remains in sinus. BPs soft but tolerating diltiazem hi dose (90mg q6H)--continue same for now - 10/07: initiated HD this evening and subsequently went into RVR with HR's in the 140's. sbp's dropped into 70's. Patient was restarted on neosynephrine and given one time dose of 150 mg of amiodarone --> conversion to normal rhythm. Will uptitrate po dilt to 90 q6h and wean off pressors. starting ASA today. - 10/08: slight hgb drop on asa. iron studies notes. con't to monitor hgb. Consider discussing again candidacy for AC once hemodynamically stable, given patient is high risk for stroke (with h/o prior cva). Improved HR control on increased dilt, con't same - 10/11: hgb drifting down. stop ASA. not a candidate for AC at this time as risks of serious bleeding are > benefits - 10/12: remains in SR, bp stable off pressors. con't dilt for suppression. No ac as above. mitral stenosis: - aggressive control of afib to prevent tachycardia-->CHF as doing - defer amio for now, may have to reconsider if recurrent rapid AF despite sepsis/PNA complete resolution htn - anti-htn regimen had been held b/c of septic shock requiring pressors - continue to observe on dilt. cva/pad - con't statin. - per pmd, previously not a candidate for asa due to recent gib and anemia. hgb drifting down on asa here, held again mild asc ao dilation - can consider switching to beta car once resp issues resolve. PNA with septic shock, resp failure - off phenylephrine as of AM 10/11, hemodynamically stable currently - cont ICU monitoring - extubated 10/12 SHANTA - renal following, no sig improvement --> initiated HD 10/07. anemia - as above. est crit care time spent in review of data, pt exam, and formulating mgmt plan of potentially life-threatening problems = 35 min
--- NOTE | 2017-10-12 14:29 | PN ---
Progress Note (short form) - Note Progress Note: Renal follow up for SHANTA Pt seen and examined in the ICU extubated this am, on face mask O2 awake and alert making urine via lazcano BP stable off pressers Vital Signs Temperature 98.9 F 10/12/17 10:00 Pulse Rate 92 H 10/12/17 12:04 Respiratory Rate 17 10/12/17 12:04 Blood Pressure 119/53 10/12/17 12:04 O2 Sat by Pulse Oximetry (%) 98 10/12/17 10:34 Intake & Output 10/09/17 10/10/17 10/11/17 10/12/17 23:59 23:59 23:59 23:59 Intake Total 743.8 1642 1294 1018 Output Total 422 107 7573 200 Balance 243.8 967 219 818 Weight 60.6 kg 64.319 kg 64.3 kg 64.013 kg NAD awake and alert RRR, No M/R Dec BS at lung bases soft NT/ND No LE edema, clubbing or cyanosis heels in dressing CBC, BMP 10/12/17 05:20 10/12/17 05:20 Current Medications Acetaminophen (Tylenol -) 650 mg PO Q6H PRN PRN Reason: FEVER Last Admin: 10/10/17 18:23 Dose: 650 mg Chlorhexidine Gluconate (Hibiclens For Decolonization -) 1 applic TP HS [facility] Last Admin: 10/11/17 21:07 Dose: 1 applic Diltiazem HCl (Cardizem -) 90 mg PO Q6HPO [facility] Last Admin: 10/12/17 11:33 Dose: 90 mg Heparin Sodium (Porcine) (Heparin -) 5,000 unit SQ BID [facility] Last Admin: 10/12/17 09:34 Dose: 5,000 unit Azithromycin 500 mg/ Dextrose 250 mls @ 250 mls/hr IVPB DAILY [facility] Last Admin: 10/12/17 09:34 Dose: 250 mls/hr Piperacillin Sod/Tazobactam (Sod 2.25 gm/ Dextrose) 50 mls @ 100 mls/hr IVPB Q8H-IV [facility] Last Admin: 10/12/17 09:34 Dose: 100 mls/hr Propofol (Diprivan -) 1,000,000 mcg in 100 mls @ 3.388 mls/hr IVPB TITR [facility]; 10 MCG/KG/MIN PRN Reason: Protocol Last Admin: 10/12/17 11:21 Dose: Not Given Dextrose (D10w -) 1,000 mls @ 42 mls/hr IV ASDIR [facility] Last Admin: 10/12/17 12:32 Dose: 42 mls/hr Phenylephrine HCl 20,000 mcg/ (Sodium Chloride) 250 mls @ 75 mls/hr IVPB ASDIR [facility]; 100 MCG/MIN PRN Reason: Protocol Last Admin: 10/11/17 19:17 Dose: Not Given Insulin Aspart (Novolog Vial Sliding Scale -) 1 vial SQ ACHS [facility] PRN Reason: Protocol Insulin Detemir (Levemir Vial) 10 units SQ HS [facility] Metoprolol Tartrate (Lopressor Injection -) 5 mg IVPUSH Q4H PRN PRN Reason: TACHYCARDIA Last Admin: 10/05/17 17:49 Dose: 5 mg Midazolam HCl (Versed -) 2 mg IVPUSH Q2H PRN PRN Reason: AGITATION Last Admin: 10/04/17 01:14 Dose: 2 mg Pantoprazole Sodium (Protonix Iv) 40 mg IVPUSH DAILY [facility] Last Admin: 10/12/17 09:34 Dose: 40 mg 76 year old male with a significant past medical history of COPD, GI bleed, diverticulosis, HLD, CVA, intussusception, umbilical hernia, DM, HTN, sinus cancer with excision and polypectomy who presents to the ED, accompanied by , s/p high blood sugar levels earlier today. #SHANTA on CKD likely due to ATN in setting of sepsis #Sepsis/PNA #AG and Non-AG Metabolic acidosis (corrected AG is 19) #Anemia #Hx of Hypertension #DM on Insulin s/p dialysis yesterday with UF as tolerated no acute indication for dialysis today CXR findings of increased congestion noted, will plan for IV diuresis with Lasix Trend renal function daily will reaccess tomorrow the need for further dialysis continue zosyn as per ID ICU monitoring Tomás Al DO
[2017-10-12] MEDS ORDERED: FUROSEMIDE 100 MG/10 ML INJECTABLE VIAL IVPB ONE (14:45)
--- NOTE | 2017-10-12 15:31 | PN ---
Progress Note, Physician History of Present Illness: patient looks much better no complaints extubated awake and alert still having some loose bm - Current Medication List Current Medications: Active Medications Acetaminophen (Tylenol -) 650 mg PO Q6H PRN PRN Reason: FEVER Last Admin: 10/10/17 18:23 Dose: 650 mg Chlorhexidine Gluconate (Hibiclens For Decolonization -) 1 applic TP HS [facility] Last Admin: 10/11/17 21:07 Dose: 1 applic Diltiazem HCl (Cardizem -) 90 mg PO Q6HPO [facility] Last Admin: 10/12/17 11:33 Dose: 90 mg Heparin Sodium (Porcine) (Heparin -) 5,000 unit SQ BID [facility] Last Admin: 10/12/17 09:34 Dose: 5,000 unit Azithromycin 500 mg/ Dextrose 250 mls @ 250 mls/hr IVPB DAILY [facility] Last Admin: 10/12/17 09:34 Dose: 250 mls/hr Piperacillin Sod/Tazobactam (Sod 2.25 gm/ Dextrose) 50 mls @ 100 mls/hr IVPB Q8H-IV [facility] Last Admin: 10/12/17 09:34 Dose: 100 mls/hr Propofol (Diprivan -) 1,000,000 mcg in 100 mls @ 3.388 mls/hr IVPB TITR [facility]; 10 MCG/KG/MIN PRN Reason: Protocol Last Admin: 10/12/17 11:21 Dose: Not Given Dextrose (D10w -) 1,000 mls @ 42 mls/hr IV ASDIR [facility] Last Admin: 10/12/17 12:32 Dose: 42 mls/hr Phenylephrine HCl 20,000 mcg/ (Sodium Chloride) 250 mls @ 75 mls/hr IVPB ASDIR [facility]; 100 MCG/MIN PRN Reason: Protocol Last Admin: 10/11/17 19:17 Dose: Not Given Insulin Aspart (Novolog Vial Sliding Scale -) 1 vial SQ ACHS [facility] PRN Reason: Protocol Insulin Detemir (Levemir Vial) 10 units SQ HS [facility] Metoprolol Tartrate (Lopressor Injection -) 5 mg IVPUSH Q4H PRN PRN Reason: TACHYCARDIA Last Admin: 10/05/17 17:49 Dose: 5 mg Midazolam HCl (Versed -) 2 mg IVPUSH Q2H PRN PRN Reason: AGITATION Last Admin: 10/04/17 01:14 Dose: 2 mg Pantoprazole Sodium (Protonix Iv) 40 mg IVPUSH DAILY [facility] Last Admin: 10/12/17 09:34 Dose: 40 mg - Objective Vital Signs: Vital Signs Temperature 98.6 F 10/12/17 14:00 Pulse Rate 86 10/12/17 14:00 Respiratory Rate 18 10/12/17 14:00 Blood Pressure 125/52 10/12/17 14:00 O2 Sat by Pulse Oximetry (%) 98 10/12/17 10:34 Constitutional: Yes: No Distress, Calm Cardiovascular: Yes: Regular Rate and Rhythm Respiratory: Yes: Poor Air Entry, Rhonchi, Other (on ventimask) Gastrointestinal: Yes: Normal Bowel Sounds, Soft Musculoskeletal: Yes: WNL Extremities: Yes: WNL Neurological: Yes: Alert Psychiatric: Yes: Alert Labs: CBC, BMP 10/12/17 05:20 10/12/17 05:20 INR, PTT INR 1.09 (0.82-1.09) 10/06/17 14:10 Assessment/Plan 76 year old male with a significant past medical history of COPD, GI bleed, diverticulosis, HLD, CVA, intussusception, umbilical hernia, DM, HTN, sinus cancer with excision and polypectomy who is now intubated and sedated and on pressors Acute Hypoxic Respiratory Failure Pneumonia Septic Shock Acute on Chronic Renal Failure Lactic Acidosis Diabetic Ketoacidosis improving HTN DM COPD cx result noted plan continue abx continue close monitoring monitor wbc close watch patients wbc is going up if wbc goes up and patient still has loose stools check cdiff patient stable d/e icu resident cc 40 min
[2017-10-12] MEDS: PHENYLEPHRINE HCL 20,000 MCG in SODIUM CHLORIDE 248 ML IVPB SCH (21:18)
[2017-10-12] MEDS: INSULIN (LEVEMIR) 100 UNITS/ML UNITS SQ SCH (21:19)
[2017-10-12] MEDS: CHLORHEXIDINE GLUCONATE 4% CLEANSER FOR DECOLONIZATION TP SCH (21:31)
[2017-10-13] MEDS: dilTIAZem HCL 30 MG TABLET (FP) PO SCH ×4 (00:05→17:01)
[2017-10-13] MEDS: PIPERACILLIN/TAZOB 2.25 GM 2.25 GM in DEXTROSE 5%-WATER - 50 ML IVPB SCH ×3 (02:00→17:04)
[2017-10-13] MEDS: INSULIN SLIDING SCALE (NOVOLOG) 1 VIAL SQ SCH ×4 (06:14→21:22)
[2017-10-13 06:34] LABS: BASO % 0.6 % (0-2.0); EOS % 0.5 % (0-4.5); HEMATOCRIT 23.3 % (35.4-49); HEMOGLOBIN 7.9 GM/dL (11.7-16.9); LYMPH % 2.5 % (8-40); MCH 30.5 pg (25.7-33.7); MCHC 33.8 g/dl (32.0-35.9); MEAN CELL VOLUME 90.2 fl (80-96); MEAN PLT VOLUME 8.9 fl (7.5-11.1); MONO % 4.7 % (3.8-10.2); NEUT % 91.7 % (42.8-82.8); PLATELET COUNT 433 K/MM3 (134-434); RBC 2.58 M/mm3 (4.00-5.60); RDW 16.5 % (11.9-15.9); WHITE BLOOD COUNT 20.2 K/mm3 (4.0-10.0)
[2017-10-13 07:13] LABS: CHLORIDE 104 mmol/L (98-107); POTASSIUM 5.3 mmol/L (3.5-5.1); SODIUM 142 mmol/L (136-145)
[2017-10-13 07:20] LABS: ALBUMIN 1.1 g/dl (3.4-5.0); ALK PHOS 77 U/L (45-117); ANION GAP 10 (8-16); BILIRUBIN,TOTAL 0.2 mg/dL (0.2-1.0); BLOOD UREA NITROGEN 65 mg/dL (7-18); CALCIUM 7.4 mg/dL (8.5-10.1); CO2 28 mmol/L (21-32); CREATININE 3.4 mg/dL (0.7-1.3); GLUCOSE,RANDOM 64 mg/dL (74-106); MAGNESIUM 2.1 mg/dL (1.8-2.4); PHOSPHOROUS 6.6 mg/dL (2.5-4.9); SGOT/AST 40 U/L (15-37); SGPT/ALT 20 U/L (12-78); TOT PROT 4.5 g/dl (6.4-8.2)
[2017-10-13] MEDS ORDERED: DEXTROSE 5%-WATER - 50 ML IVPB ONE ×3 (07:45→16:42)
[2017-10-13] MEDS ORDERED: PIPERACILLIN/TAZOBACTAM 2.25 GM VIAL IVPB ONE ×3 (07:45→16:42)
[2017-10-13] MEDS ORDERED: PT OWN MED DRAWER 7, Y5N ONE (07:45)
--- NOTE | 2017-10-13 09:01 | PN ---
Progress Note (short form) - Note Progress Note: Patient extubated yesterday. Seems comfortable but sore throat. Not coughing. Seen by Ammy Galvez and deemed risk for aspiration. Hemoglobin trending downward again and Creatinine higher. Continues on dialysis. 1 stool heme now +. On Exam: Vital Signs Temp 98.4 F 10/13/17 06:00 Pulse 98 H 10/13/17 06:00 Resp 2 L 10/13/17 06:00 BP 122/56 10/13/17 06:00 Pulse Ox 98 10/12/17 19:38 Intake & Output 10/12/17 10/12/17 10/13/17 11:59 23:59 11:59 Intake Total 1018 410 580 Output Total 200 300 400 Balance 818 110 180 Weight 141 lb 2 oz 135 lb 12.8 oz Intake: IV 102 DIPRIVAN - 1,000,000 mcg 102 In 100 ml @ 10 MCG/KG/MIN 3.388 mls/hr IVPB TITR [facility] Rx#:[id number] IVPB 100 300 100 Tube Feeding 576 60 360 Tube Irrigant 240 50 120 Output: Urine 200 300 400 [place] 200 300 400 Other: Voiding Method Indwelling Catheter Indwelling Catheter Bowel Movement Yes 600ml 200 Weight Measurement Method Built in Bedscale Built in Bedscale Alert Chest: Some rhonchi bilaterally Cor : Tachycardia Abd: Slightly distended but soft Ext: No change in Left foot toes Abnormal Lab Results 10/13/17 10/13/17 06:05 06:05 WBC 20.2 H RBC 2.58 L Hgb 7.9 L D Hct 23.3 L D RDW 16.5 H Neutrophils % 91.7 H Lymphocytes % 2.5 L Potassium 5.3 H BUN 65 H D Creatinine 3.4 H D Random Glucose 64 L D Calcium 7.4 L Phosphorus 6.6 H AST 40 H D Total Protein 4.5 L Albumin 1.1 L IMP: Acute Sepsis Acute on Chronic renal failure Uncontrolled DM Acute Pneumonia COPD PVD Probable gangrenous changes 2 toes left foot. Anemia Plan: Dialysis F/U Lab F/U Speech therapist CXR Bedside PT
[2017-10-13] MEDS: AZITHROMYCIN IVPB 500 MG in DEXTROSE 5%-WATER - 250 ML IVPB SCH (09:43)
[2017-10-13] MEDS: PANTOPRAZOLE SODIUM 40 MG VIAL IVPUSH SCH (09:44)
[2017-10-13] MEDS: HEPARIN NA (PORCINE) 5,000 UNITS/ML 1ML VIAL SQ SCH ×2 (09:45→21:19)
[2017-10-13] MEDS ORDERED: INSULIN (NOVOLOG) ASPART 100 UNITS/ML 10ML VIAL ONE ×2 (11:39→16:43)
--- NOTE | 2017-10-13 12:06 | PN ---
Progress Note (short form) - Note Progress Note: Chief Complaint: resp failure History of Present Illness: awake and alert, weak. sob improving. no cp, palps, dizziness. Current Medications Generic Name Dose Route Start Last Admin Trade Name Freq PRN Reason Stop Dose Admin Acetaminophen 650 mg 10/09/17 05:40 10/10/17 18:23 Tylenol - PO 650 mg Q6H PRN Administration FEVER Amino Acids 30 ml 10/13/17 17:30 Prosource No Carb Liquid Pkt NGT [id number] [facility] Chlorhexidine Gluconate 1 applic 10/03/17 22:00 10/12/17 21:31 Hibiclens For Decolonization - TP 1 applic HS [facility] Administration Diltiazem HCl 90 mg 10/07/17 19:45 10/13/17 11:46 Cardizem - PO 90 mg Q6HPO [facility] Administration Heparin Sodium (Porcine) 5,000 unit 10/03/17 10:00 10/13/17 09:45 Heparin - SQ 5,000 unit BID [facility] Administration Azithromycin 500 mg/ Dextrose 250 mls @ 250 mls/hr 10/04/17 10:00 10/13/17 09 :43 IVPB 250 mls/hr DAILY [facility] Administration Piperacillin Sod/Tazobactam 50 mls @ 100 mls/hr 10/03/17 18:00 10/13/17 09:44 Sod 2.25 gm/ Dextrose IVPB 100 mls/hr Q8H-IV [facility] Administration Propofol 1,000,000 mcg in 100 mls @ 3.388 mls/hr 10/04/17 09:15 10/12/17 11: 21 Diprivan - IVPB Not Given TITR [facility] Protocol 10 MCG/KG/MIN Dextrose 1,000 mls @ 42 mls/hr 10/06/17 18:45 10/12/17 21:18 D10w - IV Not Given ASDIR [facility] Phenylephrine HCl 20,000 mcg/ 250 mls @ 75 mls/hr 10/07/17 19:00 10/12/17 21: 18 Sodium Chloride IVPB Not Given ASDIR [facility] Protocol 100 MCG/MIN Insulin Aspart 1 vial 10/12/17 12:14 10/13/17 11:40 Novolog Vial Sliding Scale - SQ 3 units ACHS [facility] Administration Protocol Insulin Detemir 10 units 10/12/17 22:00 10/12/17 21:19 Levemir Vial SQ 10 units HS [facility] Administration Metoprolol Tartrate 5 mg 10/03/17 19:00 10/05/17 17:49 Lopressor Injection - IVPUSH 5 mg Q4H PRN Administration TACHYCARDIA Midazolam HCl 2 mg 10/03/17 14:35 10/04/17 01:14 Versed - IVPUSH 2 mg Q2H PRN Administration AGITATION Pantoprazole Sodium 40 mg 10/05/17 14:45 10/13/17 09:44 Protonix Iv IVPUSH 40 mg DAILY [facility] Administration - Objective Vital Signs: Vital Signs Period Temp Pulse Resp BP Sys/Sy Pulse Ox Last 24 Hr 98 F-98.8 F 10-106 2-30 118-143/48-70 98-99 Constitutional: Yes: cachectic, No Distress, Calm Cardiovascular: Yes: Regular Rate and Rhythm. No: JVD (tds exam), Gallop, Murmur Respiratory: Yes: Regular, bibasilar rales, nl effort Extremities: No: Cold Edema: No Neurological: Yes: Alert. No: Seizure Psychiatric: No: Agitated dimished dp/pt, discoloration of left foot. Labs: CBC, BMP 10/13/17 06:05 10/13/17 06:05 cxr 10/05: RLL consolidation and pleural fluid. cxr 10/08 improved aeration at right base. Echo 06/2017: mod lvh. nl lv fn. nl rv size/fn. 1+ lae. mod-sev mac with mod ms. 1+ mr. nl rvsp. 1+ ao dilation tele: SR A/P 76 yo with pmhx of htn, hl, pad, afib (not on AC due to GIB), cva (no residual deficits), copd, dm, mgus, esthesioneuroblastoma treated with radiation therapy , chronic anemia s/p recent GIB admitted with dka, sepsis, resp failure. Hospital course now complicated by episode of afib with rvr afib - not previously a candidate for AC b/c of prior hx of GIB. remains anemic. - s/p IV amio. started po dilt 10/05. now back in sr. hr controlled. - off Amio, remains in sinus. BPs soft but tolerating diltiazem hi dose (90mg q6H)--continue same for now - 10/07: initiated HD this evening and subsequently went into RVR with HR's in the 140's. sbp's dropped into 70's. Patient was restarted on neosynephrine and given one time dose of 150 mg of amiodarone --> conversion to normal rhythm. Will uptitrate po dilt to 90 q6h and wean off pressors. starting ASA today. - 10/08: slight hgb drop on asa. iron studies notes. con't to monitor hgb. Consider discussing again candidacy for AC once hemodynamically stable, given patient is high risk for stroke (with h/o prior cva). Improved HR control on increased dilt, con't same - 10/11: hgb drifting down. stop ASA. not a candidate for AC at this time as risks of serious bleeding are > benefits - 10/12-18: remains in SR, bp stable off pressors. con't dilt for suppression. No ac as above. mitral stenosis: - aggressive control of afib to prevent tachycardia-->CHF as doing - defer amio for now, may have to reconsider if recurrent rapid AF despite sepsis/PNA complete resolution htn - anti-htn regimen had been held b/c of septic shock requiring pressors - continue to observe on dilt. cva/pad - con't statin. - per pmd, previously not a candidate for asa due to recent gib and anemia. hgb drifting down on asa here, held again mild asc ao dilation - can consider switching to beta car once resp issues resolve. PNA with septic shock, resp failure - off phenylephrine as of AM 10/11, hemodynamically stable currently - cont ICU monitoring - extubated 10/12 SHANTA - renal following, no sig improvement --> initiated HD 10/07. anemia - as above.
--- NOTE | 2017-10-13 12:15 | PN ---
Progress Note (short form) - Note Progress Note: Pt seen and examined. Admitted secondary to acute hypoxic respiratory failure. Septic shock. Currently, extubated and off pressors. LLE ischemia most likely attributed to pressors (hypoperfusion) as well as underlying vascular insufficiency. Still unable to doppler PT/DP pulses Last Vital Signs Temp Pulse Resp BP Pulse Ox 98.8 F 106 H 29 H 118/48 98 10/13/17 10:00 10/13/17 10:00 10/13/17 10:00 10/13/17 10:00 10/12/17 19:38 CBC, BMP 10/13/17 06:05 10/13/17 06:05 INR, PTT INR 1.09 (0.82-1.09) 10/06/17 14:10 Blood Type Blood Type O NEGATIVE 10/11/17 08:10 Problem List - Problems (1) Ischemia of lower extremity Assessment/Plan: Leukocytosis - trend WBC IV abx PRN Trend BUN/Cr - HD PRN Monitor I/Os Tight glycemic control GI / DVT PPX Unable to do CTA as he is acute on chronic renal failure IF cleared/optimized from Cardiology and Medical standpoint we would like to perform a CO2 LLE ANGIO on 10/15/17 Above plan discussed with Dr. Brownlee and agrees. Code(s): I99.8 - OTHER DISORDER OF CIRCULATORY SYSTEM (2) Septic shock Code(s): A41.9 - SEPSIS, UNSPECIFIED ORGANISM; R65.21 - SEVERE SEPSIS WITH SEPTIC SHOCK (3) CKD (chronic kidney disease) Code(s): N18.9 - CHRONIC KIDNEY DISEASE, UNSPECIFIED
--- NOTE | 2017-10-13 12:37 | PN ---
Teaching Attending Note Name of Resident: Everette Hunter ATTENDING PHYSICIAN STATEMENT I saw and evaluated the patient. I reviewed the resident's note and discussed the case with the resident. I agree with the resident's findings and plan as documented. SUBJECTIVE: Pt seen and examined in the ICU. Remains extubated on 40% ventimask. Off pressors. OBJECTIVE: Last Vital Signs Temp Pulse Resp BP Pulse Ox 98.8 F 106 H 29 H 118/48 98 10/13/17 10:00 10/13/17 10:00 10/13/17 10:00 10/13/17 10:00 10/12/17 19:38 Intake & Output 10/10/17 10/11/17 10/12/17 10/13/17 23:59 23:59 23:59 23:59 Intake Total 1642 1294 1428 580 Output Total 675 1075 500 400 Balance 967 219 928 180 Weight 64.319 kg 64.3 kg 64.013 kg 61.598 kg Gen: mildly tachypneic Heart: tachycardic, regular Lung: scattered rhonchi Abd: soft, nontender Ext: + edema CBC, BMP 10/13/17 06:05 10/13/17 06:05 Active Medications Acetaminophen (Tylenol -) 650 mg PO Q6H PRN PRN Reason: FEVER Last Admin: 10/10/17 18:23 Dose: 650 mg Amino Acids (Prosource No Carb Liquid Pkt) 30 ml NGT BID@0800,1730 [facility] Chlorhexidine Gluconate (Hibiclens For Decolonization -) 1 applic TP HS [facility] Last Admin: 10/12/17 21:31 Dose: 1 applic Diltiazem HCl (Cardizem -) 90 mg PO Q6HPO [facility] Last Admin: 10/13/17 11:46 Dose: 90 mg Heparin Sodium (Porcine) (Heparin -) 5,000 unit SQ BID [facility] Last Admin: 10/13/17 09:45 Dose: 5,000 unit Azithromycin 500 mg/ Dextrose 250 mls @ 250 mls/hr IVPB DAILY [facility] Last Admin: 10/13/17 09:43 Dose: 250 mls/hr Piperacillin Sod/Tazobactam (Sod 2.25 gm/ Dextrose) 50 mls @ 100 mls/hr IVPB Q8H-IV [facility] Last Admin: 10/13/17 09:44 Dose: 100 mls/hr Propofol (Diprivan -) 1,000,000 mcg in 100 mls @ 3.388 mls/hr IVPB TITR [facility]; 10 MCG/KG/MIN PRN Reason: Protocol Last Admin: 10/12/17 11:21 Dose: Not Given Dextrose (D10w -) 1,000 mls @ 42 mls/hr IV ASDIR [facility] Last Admin: 10/12/17 21:18 Dose: Not Given Phenylephrine HCl 20,000 mcg/ (Sodium Chloride) 250 mls @ 75 mls/hr IVPB ASDIR SELVIN; 100 MCG/MIN PRN Reason: Protocol Last Admin: 10/12/17 21:18 Dose: Not Given Sodium Chloride (Normal Saline -) 250 mls @ 3,000 mls/hr IV PRN PRN PRN Reason: Hypotension during Dialysis Stop: 10/14/17 12:33 Sodium Chloride (Normal Saline -) 250 mls @ 3,000 mls/hr IV PRN PRN PRN Reason: Hypotension during Dialysis Stop: 10/14/17 12:33 Insulin Aspart (Novolog Vial Sliding Scale -) 1 vial SQ ACHS [facility] PRN Reason: Protocol Last Admin: 10/13/17 11:40 Dose: 3 units Insulin Detemir (Levemir Vial) 10 units SQ HS [facility] Last Admin: 10/12/17 21:19 Dose: 10 units Metoprolol Tartrate (Lopressor Injection -) 5 mg IVPUSH Q4H PRN PRN Reason: TACHYCARDIA Last Admin: 10/05/17 17:49 Dose: 5 mg Midazolam HCl (Versed -) 2 mg IVPUSH Q2H PRN PRN Reason: AGITATION Last Admin: 10/04/17 01:14 Dose: 2 mg Pantoprazole Sodium (Protonix Iv) 40 mg IVPUSH DAILY [facility] Last Admin: 10/13/17 09:44 Dose: 40 mg ASSESSMENT AND PLAN: Acute Hypoxic Respiratory Failure Pneumonia Septic Shock resolving Acute on Chronic Renal Failure requiring HD Lactic Acidosis Diabetic Ketoacidosis improving Paroxysmal Atrial Fibrillation with RVR HTN DM COPD - continue antibiotics per ID - HD per renal - monitor urine output, creatinine - monitor I/Os - may need permacath - glucose control - rate control - anticoagulation per cardiology - taper FiO2 to keep SpO2 >90% - monitoring off pressors - enteral feeds - aspiration precautions - DVT/GI prophylaxis critical care time spent in reviewing chart, evaluating patient and formulating plan 35 min
--- NOTE | 2017-10-13 12:50 | PN ---
Progress Note (short form) - Note Progress Note: Renal follow up for SHANTA Pt seen and examined in the ICU awake on facemask O2 making urine via lazcano BP stable denies any sob, chest pain, abd pain, N/V no overnight events Vital Signs Temperature 98.8 F 10/13/17 10:00 Pulse Rate 91 H 10/13/17 12:00 Respiratory Rate 20 10/13/17 12:00 Blood Pressure 119/51 10/13/17 12:00 O2 Sat by Pulse Oximetry (%) 98 10/12/17 19:38 Intake & Output 10/10/17 10/11/17 10/12/17 10/13/17 23:59 23:59 23:59 23:59 Intake Total 1642 1294 1428 580 Output Total 675 1075 500 400 Balance 967 219 928 180 Weight 64.319 kg 64.3 kg 64.013 kg 61.598 kg NAD RRR, No M/R Dec BS at lung bases soft NT/ND No LE edema, clubbing or cyanosis heels in dressing CBC, BMP 10/13/17 06:05 10/13/17 06:05 Laboratory Tests 10/07/17 10/07/17 10/13/17 06:05 06:30 06:05 MCV 90.2 ABG pH 7.29 L ABG pCO2 at Pt Temp 28.4 L ABG pO2 at Pt Temp 67.0 L D Calcium 7.7 L Phosphorus 5.2 H Magnesium 2.1 Albumin 1.2 L 10/13/17 06:05 MCV ABG pH ABG pCO2 at Pt Temp ABG pO2 at Pt Temp Calcium 7.4 L Phosphorus 6.6 H Magnesium 2.1 Albumin 1.1 L Current Medications Acetaminophen (Tylenol -) 650 mg PO Q6H PRN PRN Reason: FEVER Last Admin: 10/10/17 18:23 Dose: 650 mg Amino Acids (Prosource No Carb Liquid Pkt) 30 ml NGT BID@0800,1730 [facility] Chlorhexidine Gluconate (Hibiclens For Decolonization -) 1 applic TP HS [facility] Last Admin: 10/12/17 21:31 Dose: 1 applic Diltiazem HCl (Cardizem -) 90 mg PO Q6HPO [facility] Last Admin: 10/13/17 11:46 Dose: 90 mg Heparin Sodium (Porcine) (Heparin -) 5,000 unit SQ BID [facility] Last Admin: 10/13/17 09:45 Dose: 5,000 unit Azithromycin 500 mg/ Dextrose 250 mls @ 250 mls/hr IVPB DAILY [facility] Last Admin: 10/13/17 09:43 Dose: 250 mls/hr Piperacillin Sod/Tazobactam (Sod 2.25 gm/ Dextrose) 50 mls @ 100 mls/hr IVPB Q8H-IV [facility] Last Admin: 10/13/17 09:44 Dose: 100 mls/hr Propofol (Diprivan -) 1,000,000 mcg in 100 mls @ 3.388 mls/hr IVPB TITR [facility]; 10 MCG/KG/MIN PRN Reason: Protocol Last Admin: 10/12/17 11:21 Dose: Not Given Dextrose (D10w -) 1,000 mls @ 42 mls/hr IV [facility] Last Admin: 10/12/17 21:18 Dose: Not Given Phenylephrine HCl 20,000 mcg/ (Sodium Chloride) 250 mls @ 75 mls/hr IVPB ASDIR [facility]; 100 MCG/MIN PRN Reason: Protocol Last Admin: 10/12/17 21:18 Dose: Not Given Sodium Chloride (Normal Saline -) 250 mls @ 3,000 mls/hr IV PRN PRN PRN Reason: Hypotension during Dialysis Stop: 10/14/17 12:33 Sodium Chloride (Normal Saline -) 250 mls @ 3,000 mls/hr IV PRN PRN PRN Reason: Hypotension during Dialysis Stop: 10/14/17 12:33 Insulin Aspart (Novolog Vial Sliding Scale -) 1 vial SQ ACHS [facility] PRN Reason: Protocol Last Admin: 10/13/17 11:40 Dose: 3 units Insulin Detemir (Levemir Vial) 10 units SQ HS [facility] Last Admin: 10/12/17 21:19 Dose: 10 units Metoprolol Tartrate (Lopressor Injection -) 5 mg IVPUSH Q4H PRN PRN Reason: TACHYCARDIA Last Admin: 10/05/17 17:49 Dose: 5 mg Midazolam HCl (Versed -) 2 mg IVPUSH Q2H PRN PRN Reason: AGITATION Last Admin: 10/04/17 01:14 Dose: 2 mg Pantoprazole Sodium (Protonix Iv) 40 mg IVPUSH DAILY [facility] Last Admin: 10/13/17 09:44 Dose: 40 mg 76 year old male with a significant past medical history of COPD, GI bleed, diverticulosis, HLD, CVA, intussusception, umbilical hernia, DM, HTN, sinus cancer with excision and polypectomy who presents to the ED, accompanied by , s/p high blood sugar levels earlier today. #SHANTA on CKD likely due to ATN in setting of sepsis #Sepsis/PNA #Metabolic acidosis #Anemia #Hx of Hypertension #DM on Insulin #Hyperphosphatemia unfortunately no definitive signs of renal recovery at this time BUN/Cr uptrending s/p dialysis and urine output is low will need additional dialysis today with 1.5-2L UF as tolerated will tentatively plan for permacath on Wednesday but no signs of recovery until then Continue Abx as per ID hold Lasix today as pt to get dialysis Low phso diet, change tube feeds to Nephro Keep MAP > 65 Tomás Al DO
--- NOTE | 2017-10-13 14:28 | PN ---
Physical Exam: SUBJECTIVE: Pt offered no complaint and no acute overnight event noted. OBJECTIVE: Vital Signs Period Temp Pulse Resp BP Sys/Sy Pulse Ox Last 24 Hr 98 F-98.8 F 10-106 2-30 118-143/48-70 98-99 GENERAL: AAOx3, extubated on ventimask HEAD: Normal with no signs of trauma. EYES: PERRL, extraocular movements intact, sclera anicteric, conjunctiva clear. ENT: Ears normal, nares patent, oropharynx clear without exudates, moist mucous membranes. NECK: Trachea midline, full range of motion, supple. LUNGS: CTAB HEART: RRR, S1, S2 without murmur, rub or gallop. EXTREMITIES: 2+ pulses, warm, gangrene wounds in L great toe, 2nd, and 3rd toes. Laboratory Results - last 24 hr 10/11/17 10/12/17 10/12/17 21:20 15:32 18:30 WBC RBC Hgb Hct MCV MCH MCHC RDW Plt Count MPV Neutrophils % Lymphocytes % Monocytes % Eosinophils % Basophils % Sodium Potassium Chloride Carbon Dioxide Anion Gap BUN Creatinine Creat Clearance w eGFR POC Glucometer 276.29433 140.59147 Random Glucose Calcium Phosphorus Magnesium Total Bilirubin AST ALT Alkaline Phosphatase Total Protein Albumin Stool Occult Blood Positive 10/13/17 10/13/17 06:05 06:05 WBC 20.2 H RBC 2.58 L Hgb 7.9 L D Hct 23.3 L D MCV 90.2 MCH 30.5 MCHC 33.8 RDW 16.5 H Plt Count 433 MPV 8.9 Neutrophils % 91.7 H Lymphocytes % 2.5 L Monocytes % 4.7 Eosinophils % 0.5 Basophils % 0.6 Sodium 142 Potassium 5.3 H Chloride 104 Carbon Dioxide 28 Anion Gap 10 BUN 65 H D Creatinine 3.4 H D Creat Clearance w eGFR 17.60 POC Glucometer Random Glucose 64 L D Calcium 7.4 L Phosphorus 6.6 H Magnesium 2.1 Total Bilirubin 0.2 AST 40 H D ALT 20 Alkaline Phosphatase 77 Total Protein 4.5 L Albumin 1.1 L Stool Occult Blood Active Medications Generic Name Dose Route Start Last Admin Trade Name Freq PRN Reason Stop Dose Admin Acetaminophen 650 mg 10/09/17 05:40 10/10/17 18:23 Tylenol - PO 650 mg Q6H PRN Administration FEVER Amino Acids 30 ml 10/13/17 17:30 Prosource No Carb Liquid Pkt NGT BID@0800,1730 [facility] Chlorhexidine Gluconate 1 applic 10/03/17 22:00 10/12/17 21:31 Hibiclens For Decolonization - TP 1 applic HS [facility] Administration Diltiazem HCl 90 mg 10/07/17 19:45 10/13/17 11:46 Cardizem - PO 90 mg Q6HPO [facility] Administration Heparin Sodium (Porcine) 5,000 unit 10/03/17 10:00 10/13/17 09:45 Heparin - SQ 5,000 unit BID [facility] Administration Azithromycin 500 mg/ Dextrose 250 mls @ 250 mls/hr 10/04/17 10:00 10/13/17 09 :43 IVPB 250 mls/hr DAILY [facility] Administration Piperacillin Sod/Tazobactam 50 mls @ 100 mls/hr 10/03/17 18:00 10/13/17 09:44 Sod 2.25 gm/ Dextrose IVPB 100 mls/hr Q8H-IV [facility] Administration Propofol 1,000,000 mcg in 100 mls @ 3.388 mls/hr 10/04/17 09:15 10/12/17 11: 21 Diprivan - IVPB Not Given TITR [facility] Protocol 10 MCG/KG/MIN Dextrose 1,000 mls @ 42 mls/hr 10/06/17 18:45 10/12/17 21:18 D10w - IV Not Given ASDIR [facility] Phenylephrine HCl 20,000 mcg/ 250 mls @ 75 mls/hr 10/07/17 19:00 10/12/17 21: 18 Sodium Chloride IVPB Not Given ASDIR SELVIN Protocol 100 MCG/MIN Sodium Chloride 250 mls @ 3,000 mls/hr 10/13/17 12:33 Normal Saline - IV 10/14/17 12:33 PRN PRN Hypotension during Dialysis Sodium Chloride 250 mls @ 3,000 mls/hr 10/13/17 12:33 Normal Saline - IV 10/14/17 12:33 PRN PRN Hypotension during Dialysis Insulin Aspart 1 vial 10/12/17 12:14 10/13/17 11:40 Novolog Vial Sliding Scale - SQ 3 units ACHS [facility] Administration Protocol Insulin Detemir 10 units 10/12/17 22:00 10/12/17 21:19 Levemir Vial SQ 10 units HS [facility] Administration Metoprolol Tartrate 5 mg 10/03/17 19:00 10/05/17 17:49 Lopressor Injection - IVPUSH 5 mg Q4H PRN Administration TACHYCARDIA Midazolam HCl 2 mg 10/03/17 14:35 10/04/17 01:14 Versed - IVPUSH 2 mg Q2H PRN Administration AGITATION Pantoprazole Sodium 40 mg 10/05/17 14:45 10/13/17 09:44 Protonix Iv IVPUSH 40 mg DAILY [facility] Administration ASSESSMENT/PLAN: 76 yo M admitted to the ICU for further PNA and acute respiratory failure. Pulmonology #Acute Hypoxic Respiratory Failure - Extubated on ventimask - 2/2 to Pneumonia and now pleural effusion b/l - Still on Zosyn 2.25mg IV Q8H AND Azithromycin 500mg IV #COPD - Stable, not in acute exacerbation ID #Septic Shock secondary to Pneumonia -Continue IV abx Nephrology #Acute on Chronic Renal Failure - Dialysis today - Hold lasix - Permcath planned for wednesday Cardiovascular #Paroxysmal Atrial Fibrillation - Continue Cardizem 60mg Q6H - Metoprolol 5mg IVP Q4H PRN for Tachycardia #HTN - Stable Derm Ischemic/Gangrene wound in LE/L great toe - DP and PT pulses not palpable, likely due to pressor and previous vascular compromise - CO2 LLE angio planned on 10/15/17 if cleared by renal and cardio Endocrine #DKA-Resolved -Continue BGM, ISS and Levemir F/E/N - No fluids - Electrolytes wnl - On tube feeds nephro Prophylaxis - High risk. Heparin 5000 units SQ for DVT - Protonix 40mg IVP daily Disposition - Full code Everette Hunter PGY2 Pager: [phone] Visit type - Emergency Visit Emergency Visit: No - New Patient This patient is new to me today: No - Critical Care Critical Care patient: Yes Total Critical Care Time (in minutes): 30 Critical Care Statement: The care of this patient involved high complexity decision making to prevent further life threatening deterioration of the patient 's condition and/or to evaluate & treat vital organ system(s) failure or risk of failure. - Discharge Referral Referred to [facility] No
--- NOTE | 2017-10-13 14:35 | PN ---
Progress Note (short form) - Note Progress Note: Awake, Eyes open, in NAD On 40% Ventimask On tube feeding Vital Signs Period Temp Pulse Resp BP Sys/Sy Pulse Ox Last 24 Hr 98 F-98.8 F 10-106 2-30 118-143/48-70 98-99 PE: Eyes open, awake, Neck: supple Lungs: few rhonchi CVS: S1S2 Abd: Benign Ext: No edema, dusky coloration left 1st and 2nd toes Neuro: Awake, open eyes, CMP Sodium 142 mmol/L (136-145) 10/13/17 06:05 Potassium 5.3 mmol/L (3.5-5.1) H 10/13/17 06:05 Chloride 104 mmol/L (98-107) 10/13/17 06:05 Carbon Dioxide 28 mmol/L (21-32) 10/13/17 06:05 Anion Gap 10 (8-16) 10/13/17 06:05 BUN 65 mg/dL (7-18) H D 10/13/17 06:05 Creatinine 3.4 mg/dL (0.7-1.3) H D 10/13/17 06:05 Creat Clearance w eGFR 17.60 (>60) 10/13/17 06:05 POC Glucometer 140.98790 UNITS (80-120) 10/12/17 15:32 Random Glucose 64 mg/dL (74-106) L D 10/13/17 06:05 Hemoglobin A1c % 8.5 % (4.8-6.0) H D 10/04/17 06:00 Lactic Acid 2.0 mmol/L (0.0-2.0) 10/03/17 12:00 Calcium 7.4 mg/dL (8.5-10.1) L 10/13/17 06:05 Phosphorus 6.6 mg/dL (2.5-4.9) H 10/13/17 06:05 Magnesium 2.1 mg/dL (1.8-2.4) 10/13/17 06:05 Iron 22 ug/dL (38-169) L 10/06/17 05:50 Ferritin 202.816 ng/ml (16.4-293.9) 10/06/17 05:50 Total Bilirubin 0.2 mg/dL (0.2-1.0) 10/13/17 06:05 AST 40 U/L (15-37) H D 10/13/17 06:05 ALT 20 U/L (12-78) 10/13/17 06:05 Alkaline Phosphatase 77 U/L (45-117) 10/13/17 06:05 Total Protein 4.5 g/dl (6.4-8.2) L 10/13/17 06:05 Albumin 1.1 g/dl (3.4-5.0) L 10/13/17 06:05 Vitamin B12 1602 pg/ml (180-914) H 10/06/17 05:50 Serum Folate 23 ng/ml (3.1-17.5) H 10/06/17 05:50 Current Medications Generic Name Dose Route Start Last Admin Trade Name Freq PRN Reason Stop Dose Admin Acetaminophen 650 mg 10/09/17 05:40 10/10/17 18:23 Tylenol - PO 650 mg Q6H PRN Administration FEVER Amino Acids 30 ml 10/13/17 17:30 Prosource No Carb Liquid Pkt NGT BID@0800,1730 [facility] Chlorhexidine Gluconate 1 applic 10/03/17 22:00 10/12/17 21:31 Hibiclens For Decolonization - TP 1 applic HS [facility] Administration Diltiazem HCl 90 mg 10/07/17 19:45 10/13/17 11:46 Cardizem - PO 90 mg Q6HPO [facility] Administration Heparin Sodium (Porcine) 5,000 unit 10/03/17 10:00 10/13/17 09:45 Heparin - SQ 5,000 unit BID [facility] Administration Azithromycin 500 mg/ Dextrose 250 mls @ 250 mls/hr 10/04/17 10:00 10/13/17 09 :43 IVPB 250 mls/hr DAILY [facility] Administration Piperacillin Sod/Tazobactam 50 mls @ 100 mls/hr 10/03/17 18:00 10/13/17 09:44 Sod 2.25 gm/ Dextrose IVPB 100 mls/hr Q8H-IV [facility] Administration Propofol 1,000,000 mcg in 100 mls @ 3.388 mls/hr 10/04/17 09:15 10/12/17 11: 21 Diprivan - IVPB Not Given TITR [facility] Protocol 10 MCG/KG/MIN Dextrose 1,000 mls @ 42 mls/hr 10/06/17 18:45 10/12/17 21:18 D10w - IV Not Given ASDIR [facility] Phenylephrine HCl 20,000 mcg/ 250 mls @ 75 mls/hr 10/07/17 19:00 10/12/17 21: 18 Sodium Chloride IVPB Not Given ASDIR [facility] Protocol 100 MCG/MIN Sodium Chloride 250 mls @ 3,000 mls/hr 10/13/17 12:33 Normal Saline - IV 10/14/17 12:33 PRN PRN Hypotension during Dialysis Sodium Chloride 250 mls @ 3,000 mls/hr 10/13/17 12:33 Normal Saline - IV 10/14/17 12:33 PRN PRN Hypotension during Dialysis Insulin Aspart 1 vial 10/12/17 12:14 10/13/17 11:40 Novolog Vial Sliding Scale - SQ 3 units ACHS [facility] Administration Protocol Insulin Detemir 10 units 10/12/17 22:00 10/12/17 21:19 Levemir Vial SQ 10 units HS [facility] Administration Metoprolol Tartrate 5 mg 10/03/17 19:00 10/05/17 17:49 Lopressor Injection - IVPUSH 5 mg Q4H PRN Administration TACHYCARDIA Midazolam HCl 2 mg 10/03/17 14:35 10/04/17 01:14 Versed - IVPUSH 2 mg Q2H PRN Administration AGITATION Pantoprazole Sodium 40 mg 10/05/17 14:45 10/13/17 09:44 Protonix Iv IVPUSH 40 mg DAILY [facility] Administration AP; Acute Hypoxic Respiratory Failure s/p Extubation Pneumonia Septic Shock DM with Acidosis ? DKA,?Lactic acidosis Acute on Chronic Renal Failure Paroxysmal Atrial Fibrillation with RVR HTN COPD Ischemic changes left foot BGM Q6 hr Levemir 10 units daily Novolog coverage continue antibiotics Tube feeding as tolerated Chart reviewed Start D10W at 42 ml/hr whenever tube feeding is on hold or discontinued until food intake is adequate. As pt was admitted with acidosis possibly DKA, need to continue to administer long acting Insulin Will f/u
--- NOTE | 2017-10-13 15:20 | PN ---
Progress Note (short form) - Note Progress Note: Vascular Surgery Pt to get HD today. Will get permacath on wednesday Will also do angio on wednesday and pt can be dialized after angiogram on wednesday. Addison trejo DO
--- NOTE | 2017-10-13 16:11 | PN ---
Progress Note, Physician History of Present Illness: patient clinically looks good on mask awake and alert - Current Medication List Current Medications: Active Medications Acetaminophen (Tylenol -) 650 mg PO Q6H PRN PRN Reason: FEVER Last Admin: 10/10/17 18:23 Dose: 650 mg Amino Acids (Prosource No Carb Liquid Pkt) 30 ml NGT BID@0800,1730 [facility] Chlorhexidine Gluconate (Hibiclens For Decolonization -) 1 applic TP HS [facility] Last Admin: 10/12/17 21:31 Dose: 1 applic Diltiazem HCl (Cardizem -) 90 mg PO Q6HPO [facility] Last Admin: 10/13/17 11:46 Dose: 90 mg Heparin Sodium (Porcine) (Heparin -) 5,000 unit SQ BID [facility] Last Admin: 10/13/17 09:45 Dose: 5,000 unit Piperacillin Sod/Tazobactam (Sod 2.25 gm/ Dextrose) 50 mls @ 100 mls/hr IVPB Q8H-IV [facility] Last Admin: 10/13/17 09:44 Dose: 100 mls/hr Propofol (Diprivan -) 1,000,000 mcg in 100 mls @ 3.388 mls/hr IVPB TITR [facility]; 10 MCG/KG/MIN PRN Reason: Protocol Last Admin: 10/12/17 11:21 Dose: Not Given Dextrose (D10w -) 1,000 mls @ 42 mls/hr IV ASDIR [facility] Last Admin: 10/12/17 21:18 Dose: Not Given Phenylephrine HCl 20,000 mcg/ (Sodium Chloride) 250 mls @ 75 mls/hr IVPB ASDIR SELVIN; 100 MCG/MIN PRN Reason: Protocol Last Admin: 10/12/17 21:18 Dose: Not Given Sodium Chloride (Normal Saline -) 250 mls @ 3,000 mls/hr IV PRN PRN PRN Reason: Hypotension during Dialysis Stop: 10/14/17 12:33 Sodium Chloride (Normal Saline -) 250 mls @ 3,000 mls/hr IV PRN PRN PRN Reason: Hypotension during Dialysis Stop: 10/14/17 12:33 Insulin Aspart (Novolog Vial Sliding Scale -) 1 vial SQ ACHS [facility] PRN Reason: Protocol Last Admin: 10/13/17 11:40 Dose: 3 units Insulin Detemir (Levemir Vial) 10 units SQ HS [facility] Last Admin: 10/12/17 21:19 Dose: 10 units Metoprolol Tartrate (Lopressor Injection -) 5 mg IVPUSH Q4H PRN PRN Reason: TACHYCARDIA Last Admin: 10/05/17 17:49 Dose: 5 mg Midazolam HCl (Versed -) 2 mg IVPUSH Q2H PRN PRN Reason: AGITATION Last Admin: 10/04/17 01:14 Dose: 2 mg Pantoprazole Sodium (Protonix Iv) 40 mg IVPUSH DAILY [facility] Last Admin: 10/13/17 09:44 Dose: 40 mg - Objective Vital Signs: Vital Signs Temperature 98.1 F 10/13/17 14:00 Pulse Rate 92 H 10/13/17 14:00 Respiratory Rate 20 10/13/17 14:00 Blood Pressure 132/47 10/13/17 14:00 O2 Sat by Pulse Oximetry (%) 98 10/13/17 12:50 Constitutional: Yes: No Distress, Calm Cardiovascular: Yes: S1, S2 Respiratory: Yes: Regular, CTA Bilaterally, Poor Air Entry Gastrointestinal: Yes: Normal Bowel Sounds, Soft Musculoskeletal: Yes: WNL Extremities: Yes: Other Wound/Incision: Yes: Other (looked at the gluteal ulcer) Neurological: Yes: Alert Psychiatric: Yes: Alert Labs: CBC, BMP 10/13/17 06:05 10/13/17 06:05 INR, PTT INR 1.09 (0.82-1.09) 10/06/17 14:10 Assessment/Plan 76 year old male with a significant past medical history of COPD, GI bleed, diverticulosis, HLD, CVA, intussusception, umbilical hernia, DM, HTN, sinus cancer with excision and polypectomy who is now intubated and sedated and on pressors Acute Hypoxic Respiratory Failure Pneumonia Septic Shock Acute on Chronic Renal Failure Lactic Acidosis Diabetic Ketoacidosis improving HTN DM COPD cx result noted plan continue abx continue close monitoring monitor wbc close watch will stop zithro patients wbc is increasing now it is 20 cause --i do not think it is coming from the gluteal ulcer or the leg consider changing the line if wbc still keeps on going up--hector cx the patient and hector scan the patient
[2017-10-13] MEDS: AMINO ACIDS/PROTEIN HYDROLYS 30 ML LIQUID.PKT NGT SCH (17:01)
--- NOTE | 2017-10-13 19:55 | PN ---
Progress Note (short form) - Note Progress Note: Patient's at bedside requested to speak to me in regards to a DNI/DNR. However, patient is currently awake, alert and responding to questions. He is able to say a few words. When I asked who is at bedside, he was able to say . When I asked his location he was able to say Hospital. I explained DNR/ DNI to him and patient said yes to be intubated and yes to resuscitation. I placed Palliative care consult, per 's request
[2017-10-13] MEDS ORDERED: HEMOQUE TEST 1 EACH EACH ONE (21:11)
[2017-10-13] MEDS: PHENYLEPHRINE HCL 20,000 MCG in SODIUM CHLORIDE 248 ML IVPB SCH (21:20)
[2017-10-13] MEDS: CHLORHEXIDINE GLUCONATE 4% CLEANSER FOR DECOLONIZATION TP SCH (21:21)
[2017-10-13] MEDS: PROPOFOL 1,000,000 MCG/100 ML VIAL IVPB SCH (21:21)
[2017-10-13] MEDS: INSULIN (LEVEMIR) 100 UNITS/ML UNITS SQ SCH (21:22)
[2017-10-13] MEDS ORDERED: INSULIN (LEVEMIR) 100 UNITS/ML UNITS SQ ONE (21:44)
[2017-10-14] MEDS: MIDAZOLAM HCL 2 MG/2 ML SINGLE DOSE VIAL IVPUSH PRN (00:25)
[2017-10-14] MEDS: dilTIAZem HCL 30 MG TABLET (FP) PO SCH ×5 (00:38→23:08)
[2017-10-14] MEDS ORDERED: PIPERACILLIN/TAZOBACTAM 2.25 GM VIAL IVPB ONE ×2 (00:39→09:45)
[2017-10-14] MEDS ORDERED: DEXTROSE 5%-WATER - 50 ML IVPB ONE ×4 (00:39→21:42)
[2017-10-14] MEDS: PIPERACILLIN/TAZOB 2.25 GM 2.25 GM in DEXTROSE 5%-WATER - 50 ML IVPB SCH ×2 (01:03→10:33)
[2017-10-14] MEDS ORDERED: SODIUM CHLORIDE 250 ML IV PRN ×2 (01:41→01:42)
[2017-10-14] MEDS: INSULIN SLIDING SCALE (NOVOLOG) 1 VIAL SQ SCH ×3 (06:14→16:57)
[2017-10-14 06:45] LABS: HEMATOCRIT 23.5 % (35.4-49); HEMOGLOBIN 7.8 GM/dL (11.7-16.9); MCH 30.2 pg (25.7-33.7); MCHC 33.3 g/dl (32.0-35.9); MEAN CELL VOLUME 90.5 fl (80-96); MEAN PLT VOLUME 8.7 fl (7.5-11.1); PLATELET COUNT 412 K/MM3 (134-434); RDW 15.9 % (11.9-15.9); WHITE BLOOD COUNT 22.3 K/mm3 (4.0-10.0)
[2017-10-14 07:39] LABS: ALBUMIN 1.1 g/dl (3.4-5.0); ANION GAP 5 (8-16); BILIRUBIN,TOTAL 0.1 mg/dL (0.2-1.0); BLOOD UREA NITROGEN 36 mg/dL (7-18); CALCIUM 7.1 mg/dL (8.5-10.1); CHLORIDE 103 mmol/L (98-107); CO2 34 mmol/L (21-32); CREATININE 1.8 mg/dL (0.7-1.3); GLUCOSE,RANDOM 90 mg/dL (74-106); MAGNESIUM 1.8 mg/dL (1.8-2.4); POTASSIUM 4.5 mmol/L (3.5-5.1); SGOT/AST 33 U/L (15-37); SGPT/ALT 21 U/L (12-78); SODIUM 142 mmol/L (136-145); TOT PROT 4.6 g/dl (6.4-8.2)
[2017-10-14 07:40] LABS: ALK PHOS 80 U/L (45-117)
--- NOTE | 2017-10-14 09:08 | PN ---
Progress Note (short form) - Note Progress Note: Patient seen and examined today. I very clearly discussed DNR and Intubation with Kwan today. He clearly wishes to forego any future endotracheal intubation and cardiac compressions. I again repeated these choices to him and he agreed to sign the DNR/DNI form. His nurse witnessed this signing. Full note to follow. will be called.
[2017-10-14] MEDS ORDERED: PT OWN MED DRAWER 7, Y5N ONE (09:44)
[2017-10-14] MEDS: PROPOFOL 1,000,000 MCG/100 ML VIAL IVPB SCH (10:32)
[2017-10-14] MEDS: AMINO ACIDS/PROTEIN HYDROLYS 30 ML LIQUID.PKT NGT SCH ×2 (10:32→16:57)
[2017-10-14] MEDS: HEPARIN NA (PORCINE) 5,000 UNITS/ML 1ML VIAL SQ SCH (10:33)
[2017-10-14] MEDS: PANTOPRAZOLE SODIUM 40 MG VIAL IVPUSH SCH ×2 (10:33→22:53)
[2017-10-14 10:46] LABS: PLATELET ESTIMATE NORMAL; TOXIC GRANULATION 1+
--- NOTE | 2017-10-14 11:16 | PN ---
Progress Note (short form) - Note Progress Note: Chief Complaint: resp failure History of Present Illness: awake and alert, weak. sob improving. no cp, palps, dizziness. Current Medications Generic Name Dose Route Start Last Admin Trade Name Ty PRN Reason Stop Dose Admin Acetaminophen 650 mg 10/09/17 05:40 10/10/17 18:23 Tylenol - PO 650 mg Q6H PRN Administration FEVER Amino Acids 30 ml 10/13/17 17:30 10/14/17 10:32 Prosource No Carb Liquid Pkt NGT 30 ml BID@0800,1730 SELVIN Administration Chlorhexidine Gluconate 1 applic 10/03/17 22:00 10/13/17 21:21 Hibiclens For Decolonization - TP 1 applic HS SELVIN Administration Diltiazem HCl 90 mg 10/07/17 19:45 10/14/17 11:07 Cardizem - PO 90 mg Q6HPO SELVIN Administration Furosemide 60 mg 10/14/17 11:12 Lasix Injection - IVPUSH 10/14/17 11:13 ONCE ONE Heparin Sodium (Porcine) 5,000 unit 10/03/17 10:00 10/14/17 10:33 Heparin - SQ 5,000 unit BID SELVIN Administration Piperacillin Sod/Tazobactam 50 mls @ 100 mls/hr 10/03/17 18:00 10/14/17 10:33 Sod 2.25 gm/ Dextrose IVPB 100 mls/hr Q8H-IV SELVIN Administration Propofol 1,000,000 mcg in 100 mls @ 3.388 mls/hr 10/04/17 09:15 10/14/17 10: 32 Diprivan - IVPB Not Given TITR SELVIN Protocol 10 MCG/KG/MIN Dextrose 1,000 mls @ 42 mls/hr 10/06/17 18:45 10/12/17 21:18 D10w - IV Not Given ASDIR SELVIN Phenylephrine HCl 20,000 mcg/ 250 mls @ 75 mls/hr 10/07/17 19:00 10/13/17 21: 20 Sodium Chloride IVPB Not Given ASDIR SELVIN Protocol 100 MCG/MIN Insulin Aspart 1 vial 10/12/17 12:14 10/14/17 10:34 Novolog Vial Sliding Scale - SQ 4 units ACHS SELVIN Administration Protocol Insulin Detemir 10 units 10/12/17 22:00 10/13/17 21:22 Levemir Vial SQ 10 units HS SELVIN Administration Metoprolol Tartrate 5 mg 10/03/17 19:00 10/05/17 17:49 Lopressor Injection - IVPUSH 5 mg Q4H PRN Administration TACHYCARDIA Midazolam HCl 2 mg 10/03/17 14:35 10/14/17 00:25 Versed - IVPUSH 2 mg Q2H PRN Administration AGITATION Pantoprazole Sodium 40 mg 10/05/17 14:45 10/14/17 10:33 Protonix Iv IVPUSH 40 mg DAILY SELVIN Administration - Objective Vital Signs: Vital Signs Period Temp Pulse Resp BP Sys/Ys Pulse Ox Last 24 Hr 98.1 F-99.2 F 86-110 18-33 111-149/43-74 95-98 Constitutional: Yes: cachectic, No Distress, Calm Cardiovascular: Yes: Regular Rate and Rhythm. No: JVD (tds exam), Gallop, Murmur Respiratory: Yes: Regular, bibasilar rales, nl effort Extremities: No: Cold Edema: No Neurological: Yes: Alert. No: Seizure Psychiatric: No: Agitated dimished dp/pt, discoloration of left foot. Labs: CBC, BMP 10/14/17 05:43 10/14/17 05:43 cxr 10/05: RLL consolidation and pleural fluid. cxr 10/08 improved aeration at right base. Echo 06/2017: mod lvh. nl lv fn. nl rv size/fn. 1+ lae. mod-sev mac with mod ms. 1+ mr. nl rvsp. 1+ ao dilation tele: SR A/P 76 yo with pmhx of htn, hl, pad, afib (not on AC due to GIB), cva (no residual deficits), copd, dm, mgus, esthesioneuroblastoma treated with radiation therapy , chronic anemia s/p recent GIB admitted with dka, sepsis, resp failure. Hospital course now complicated by episode of afib with rvr afib - not previously a candidate for AC b/c of prior hx of GIB. remains anemic. - s/p IV amio. started po dilt 10/05. now back in sr. hr controlled. - off Amio, remains in sinus. BPs soft but tolerating diltiazem hi dose (90mg q6H)--continue same for now - 10/07: initiated HD this evening and subsequently went into RVR with HR's in the 140's. sbp's dropped into 70's. Patient was restarted on neosynephrine and given one time dose of 150 mg of amiodarone --> conversion to normal rhythm. Will uptitrate po dilt to 90 q6h and wean off pressors. starting ASA today. - 10/08: slight hgb drop on asa. iron studies notes. con't to monitor hgb. Consider discussing again candidacy for AC once hemodynamically stable, given patient is high risk for stroke (with h/o prior cva). Improved HR control on increased dilt, con't same - 10/11: hgb drifting down. stop ASA. not a candidate for AC at this time as risks of serious bleeding are > benefits - 10/12-: remains in SR, bp stable off pressors. con't dilt for suppression. No ac as above. mitral stenosis: - aggressive control of afib to prevent tachycardia-->CHF as doing - defer amio for now, may have to reconsider if recurrent rapid AF despite sepsis/PNA complete resolution htn - anti-htn regimen had been held b/c of septic shock requiring pressors - continue to observe on dilt. cva/pad - con't statin. - per pmd, previously not a candidate for asa due to recent gib and anemia. hgb drifting down on asa here, held again mild asc ao dilation - can consider switching to beta car once resp issues resolve. PNA with septic shock, resp failure - off phenylephrine as of AM 10/11, hemodynamically stable currently - cont ICU monitoring - extubated 10/12 SHANTA - renal following, no sig improvement --> initiated HD 10/07. anemia - as above.
[2017-10-14] MEDS ORDERED: FUROSEMIDE 40 MG/4 ML INJECTABLE VIAL IVPUSH ONE (11:30)
--- NOTE | 2017-10-14 11:31 | PN ---
Progress Note (short form) - Note Progress Note: Renal follow up for SHANTA Pt seen and examined in the ICU awake and alert had difficulty speaking but nods to understanding no overnight events s/p dialysis yesterday making urine Vital Signs Temperature 98.6 F 10/14/17 10:00 Pulse Rate 120 H 10/14/17 10:00 Respiratory Rate 41 H 10/14/17 10:00 Blood Pressure 127/73 10/14/17 10:00 O2 Sat by Pulse Oximetry (%) 97 10/14/17 06:41 Intake & Output 10/11/17 10/12/17 10/13/17 10/14/17 23:59 23:59 23:59 23:59 Intake Total 1294 1428 1830 830 Output Total 9225 616 1096 700 Balance 219 928 330 130 Weight 64.3 kg 64.013 kg 61.598 kg 60.464 kg NAD RRR, No M/R Dec BS at lung bases soft NT/ND No LE edema, clubbing or cyanosis heels in dressing CBC, BMP 10/14/17 05:43 10/14/17 05:43 Laboratory Tests 10/14/17 05:43 Calcium 7.1 L Magnesium 1.8 Albumin 1.1 L Current Medications Acetaminophen (Tylenol -) 650 mg PO Q6H PRN PRN Reason: FEVER Last Admin: 10/10/17 18:23 Dose: 650 mg Amino Acids (Prosource No Carb Liquid Pkt) 30 ml NGT BID@0800,1730 [facility] Last Admin: 10/14/17 10:32 Dose: 30 ml Chlorhexidine Gluconate (Hibiclens For Decolonization -) 1 applic TP HS [facility] Last Admin: 10/13/17 21:21 Dose: 1 applic Diltiazem HCl (Cardizem -) 90 mg PO Q6HPO [facility] Last Admin: 10/14/17 11:07 Dose: 90 mg Furosemide (Lasix Injection -) 60 mg IVPUSH ONCE ONE Stop: 10/14/17 11:31 Heparin Sodium (Porcine) (Heparin -) 5,000 unit SQ BID [facility] Last Admin: 10/14/17 10:33 Dose: 5,000 unit Piperacillin Sod/Tazobactam (Sod 2.25 gm/ Dextrose) 50 mls @ 100 mls/hr IVPB Q8H-IV SELVIN Last Admin: 10/14/17 10:33 Dose: 100 mls/hr Propofol (Diprivan -) 1,000,000 mcg in 100 mls @ 3.388 mls/hr IVPB TITR SELVIN; 10 MCG/KG/MIN PRN Reason: Protocol Last Admin: 10/14/17 10:32 Dose: Not Given Dextrose (D10w -) 1,000 mls @ 42 mls/hr IV ASDIR SELVIN Last Admin: 10/12/17 21:18 Dose: Not Given Phenylephrine HCl 20,000 mcg/ (Sodium Chloride) 250 mls @ 75 mls/hr IVPB ASDIR SELVIN; 100 MCG/MIN PRN Reason: Protocol Last Admin: 10/13/17 21:20 Dose: Not Given Insulin Aspart (Novolog Vial Sliding Scale -) 1 vial SQ ACHS SELVIN PRN Reason: Protocol Last Admin: 10/14/17 10:34 Dose: 4 units Insulin Detemir (Levemir Vial) 10 units SQ HS [facility] Last Admin: 10/13/17 21:22 Dose: 10 units Metoprolol Tartrate (Lopressor Injection -) 5 mg IVPUSH Q4H PRN PRN Reason: TACHYCARDIA Last Admin: 10/05/17 17:49 Dose: 5 mg Midazolam HCl (Versed -) 2 mg IVPUSH Q2H PRN PRN Reason: AGITATION Last Admin: 10/14/17 00:25 Dose: 2 mg Pantoprazole Sodium (Protonix Iv) 40 mg IVPUSH DAILY [facility] Last Admin: 10/14/17 10:33 Dose: 40 mg 76 year old male with a significant past medical history of COPD, GI bleed, diverticulosis, HLD, CVA, intussusception, umbilical hernia, DM, HTN, sinus cancer with excision and polypectomy who presents to the ED, accompanied by , s/p high blood sugar levels earlier today. #SHANTA on CKD likely due to ATN in setting of sepsis #Sepsis/PNA #Metabolic acidosis (now resolved) #Anemia #Hx of Hypertension #DM on Insulin #Hyperphosphatemia s/p dialysis yesterday and thus BUN/Cr is lower today, will need to trend to tomorrow continue Lasix as needed for volume mangement will access need for permacath placement based on urine output and BUN/Cr trend Trend Hgb, transfuse as per ICU protocol Trend phos levels continue Abx as per ID keep MAP > 65 Tomás Al DO
--- NOTE | 2017-10-14 12:26 | PN ---
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 On VM/NGT, Initially oriented to home, but once reoriented I believe he retained it. However, speech intelligibility quite poor. With cues for push out voice/for forced phonation, vocal quality today was improved from 10/12 but brief. Impaired phonation likely multifactorial- weak pulmonary function and s/p extubation 2 days ago/ VC weakness/likely still edematous.. Pt now DNR/DNI. Constructed Large single word/picture Communication board for pt, however, he said he could not see it. To try again. Continue NGT for now. HOB elevated/mouth care. For MBS when stronger.
--- NOTE | 2017-10-14 12:56 | PN ---
Physical Exam: SUBJECTIVE: Patient seen and examined in ICU. No acute events overnight. Patient not able to speak, expresses understanding with yes/no responses. OBJECTIVE: Vital Signs Period Temp Pulse Resp BP Sys/Sy Pulse Ox Last 24 Hr 98.1 F-99.2 F 86-120 18-41 111-149/43-74 95-97 GENERAL: The patient is awake, alert, oriented to self HEAD: Normal with no signs of trauma. EYES: PERRL, extraocular movements intact, sclera anicteric, conjunctiva clear. ENT: Ears normal, nares patent, oropharynx clear without exudates, moist mucous membranes. LUNGS: Breath sounds equal, coarse breath sounds bilaterally HEART: Regular rate and rhythm, S1, S2 without murmur, rub or gallop. ABDOMEN: Soft, nontender, nondistended, normoactive bowel sounds, no guarding, no rebound, no hepatosplenomegaly, no masses. EXTREMITIES: 2+ pulses, warm, well-perfused, no edema. NEUROLOGICAL: Cranial nerves II through XII grossly intact. Normal speech, gait not observed. PSYCH: Normal mood, normal affect. SKIN: Warm, dry, normal turgor, no rashes or lesions noted Laboratory Results - last 24 hr 10/13/17 10/13/17 10/14/17 11:16 16:53 05:43 WBC 22.3 H RBC 2.60 L Hgb 7.8 L Hct 23.5 L MCV 90.5 MCH 30.2 MCHC 33.3 RDW 15.9 Plt Count 412 MPV 8.7 Neutrophils % No Result Required. Neutrophils % (Manual) 92.9 H* Band Neutrophils % 0.0 Lymphocytes % No Result Required. Lymphocytes % (Manual) 2.0 L D Monocytes % (Manual) 3 L Eosinophils % (Manual) 0.0 D Basophils % (Manual) 1.0 D Myelocytes % (Man) 1 D Promyelocytes % (Man) 0 Blast Cells % (Manual) 0 Nucleated RBC % 0 Metamyelocytes 0 Toxic Granulation 1+ Platelet Estimate Normal Stomatocytes 1+ Sodium Potassium Chloride Carbon Dioxide Anion Gap BUN Creatinine Creat Clearance w eGFR POC Glucometer 241.19783 242.40421 Random Glucose Calcium Magnesium Total Bilirubin AST ALT Alkaline Phosphatase Total Protein Albumin 10/14/17 10/14/17 05:43 10:30 WBC RBC Hgb Hct MCV MCH MCHC RDW Plt Count MPV Neutrophils % Neutrophils % (Manual) Band Neutrophils % Lymphocytes % Lymphocytes % (Manual) Monocytes % (Manual) Eosinophils % (Manual) Basophils % (Manual) Myelocytes % (Man) Promyelocytes % (Man) Blast Cells % (Manual) Nucleated RBC % Metamyelocytes Toxic Granulation Platelet Estimate Stomatocytes Sodium 142 Potassium 4.5 Chloride 103 Carbon Dioxide 34 H D Anion Gap 5 L BUN 36 H D Creatinine 1.8 H D Creat Clearance w eGFR 36.67 POC Glucometer 266.37018 Random Glucose 90 D Calcium 7.1 L Magnesium 1.8 Total Bilirubin 0.1 L D AST 33 ALT 21 Alkaline Phosphatase 80 Total Protein 4.6 L Albumin 1.1 L Active Medications Generic Name Dose Route Start Last Admin Trade Name Freq PRN Reason Stop Dose Admin Acetaminophen 650 mg 10/09/17 05:40 10/10/17 18:23 Tylenol - PO 650 mg Q6H PRN Administration FEVER Amino Acids 30 ml 10/13/17 17:30 10/14/17 10:32 Prosource No Carb Liquid Pkt NGT 30 ml BID@0800,1730 SELVIN Administration Chlorhexidine Gluconate 1 applic 10/03/17 22:00 10/13/17 21:21 Hibiclens For Decolonization - TP 1 applic HS SELVIN Administration Diltiazem HCl 90 mg 10/07/17 19:45 10/14/17 11:07 Cardizem - PO 90 mg Q6HPO SELVIN Administration Heparin Sodium (Porcine) 5,000 unit 10/03/17 10:00 10/14/17 10:33 Heparin - SQ 5,000 unit BID SELVIN Administration Piperacillin Sod/Tazobactam 50 mls @ 100 mls/hr 10/03/17 18:00 10/14/17 10:33 Sod 2.25 gm/ Dextrose IVPB 100 mls/hr Q8H-IV SELVIN Administration Propofol 1,000,000 mcg in 100 mls @ 3.388 mls/hr 10/04/17 09:15 10/14/17 10: 32 Diprivan - IVPB Not Given TITR SELVIN Protocol 10 MCG/KG/MIN Dextrose 1,000 mls @ 42 mls/hr 10/06/17 18:45 10/12/17 21:18 D10w - IV Not Given ASDIR SELVIN Phenylephrine HCl 20,000 mcg/ 250 mls @ 75 mls/hr 10/07/17 19:00 10/13/17 21: 20 Sodium Chloride IVPB Not Given ASDIR SELVIN Protocol 100 MCG/MIN Insulin Aspart 1 vial 10/12/17 12:14 10/14/17 10:34 Novolog Vial Sliding Scale - SQ 4 units ACHS SELVIN Administration Protocol Insulin Detemir 10 units 10/12/17 22:00 10/13/17 21:22 Levemir Vial SQ 10 units HS SELVIN Administration Metoprolol Tartrate 5 mg 10/03/17 19:00 10/05/17 17:49 Lopressor Injection - IVPUSH 5 mg Q4H PRN Administration TACHYCARDIA Midazolam HCl 2 mg 10/03/17 14:35 10/14/17 00:25 Versed - IVPUSH 2 mg Q2H PRN Administration AGITATION Pantoprazole Sodium 40 mg 10/05/17 14:45 10/14/17 10:33 Protonix Iv IVPUSH 40 mg DAILY SELVIN Administration ASSESSMENT/PLAN: Patient is a 76 year old male with who presented for acute respiratory failure and was found to have pneumonia and DKA. Patient is admitted to ICU for further monitoring and management. Pulmonology #Acute Hypoxic Respiratory Failure -Likely secondary to Pneumonia -Continue Zosyn 2.25mg IV Q8H AND Azithromycin 500mg IV -Patient off Versed -Extubated 2 days ago, stable ventilatory status on venti mask #COPD -Continue Nebulizers -Continue Ventilation -Continue IV Abx Infectious Disease #Septic Shock secondary to Pneumonia -Continue IV abx Azithromycin and Zosyn -Blood cultures negative -Sputum cultures staph, hector sensitive -Legionella negative -HOB elevated -Aspiration precautions -Off pressors for >48 hours -White count elevated today, unknown source, will pull trialysis catheter Nephrology #Acute on Chronic Renal Failure -Likely ATN secondary from Septic hock -Urine output 1500 y/d -Cr/BUN improved -Dialysis y/d -Trialysis removed due to infectious risk, plan for access for dialysis to be placed tomorrow #AG and Non-AG Metabolic acidosis -Acidosis resolved Cardiovascular #Paroxysmal Atrial Fibrillation -Continue Cardizem 60mg Q6H -Metoprolol 5mg IVP Q4H PRN for Tachycardia #HTN -Patient not hypertensive -Will continue to monitor BP #CAD/PVD -Ischemia in left toe likely secondary to pressors, hypotension, and prior surgery in the left foot. -DP pulses not present today, left foot is warm, pink with discoloration around big toe -Vascular aware, following -Will optimize medically -Not candidate for asa, heparin due to hgb drop, h/o gi bleed -Plan for angio tomorrow Endocrine #DKA-Resolved -Continue ISS -Continue BGM -Continue Levemir Neurology #Rule out Critical Illness Myopathy/Polyneuropathy -Patient following commands, moving all four extremities, deconditioned -Start PT F/E/N -On no fluids -Electrolytes wnl -On tube feeds- Glucerna, failed speech and swallow Prophylaxis -High risk. Heparin 5000 units SQ for DVT -Protonix 40mg IVP daily Disposition -Patient is now DNR/DNI -Continued ICU care Visit type - Emergency Visit Emergency Visit: Yes ED Registration Date: 10/03/17 Care time: The patient presented to the Emergency Department on the above date and was hospitalized for further evaluation of their emergent condition. - New Patient This patient is new to me today: No - Critical Care Critical Care patient: Yes Total Critical Care Time (in minutes): 45 Critical Care Statement: The care of this patient involved high complexity decision making to prevent further life threatening deterioration of the patient 's condition and/or to evaluate & treat vital organ system(s) failure or risk of failure.
--- NOTE | 2017-10-14 13:21 | PN ---
Teaching Attending Note Name of Resident: Curt Caputo ATTENDING PHYSICIAN STATEMENT I saw and evaluated the patient. I reviewed the resident's note and discussed the case with the resident. I agree with the resident's findings and plan as documented. SUBJECTIVE: Patient seen and examined in the ICU. Remains extubated, awake and interactive. No pressors. CXR: poor film quality / increase in right base effusion/infiltrate OBJECTIVE: Intake & Output 10/11/17 10/12/17 10/13/17 10/14/17 23:59 23:59 23:59 23:59 Intake Total 1294 1428 1830 830 Output Total 7998 104 9184 700 Balance 219 928 330 130 Weight 141 lb 12.116 oz 141 lb 2 oz 135 lb 12.8 oz 133 lb 4.8 oz Last Vital Signs Temp Pulse Resp BP Pulse Ox 98.6 F 120 H 41 H 127/73 97 10/14/17 10:00 10/14/17 10:00 10/14/17 10:00 10/14/17 10:00 10/14/17 09:00 Active Medications Acetaminophen (Tylenol -) 650 mg PO Q6H PRN PRN Reason: FEVER Last Admin: 10/10/17 18:23 Dose: 650 mg Amino Acids (Prosource No Carb Liquid Pkt) 30 ml NGT BID@0800,1730 [facility] Last Admin: 10/14/17 10:32 Dose: 30 ml Chlorhexidine Gluconate (Hibiclens For Decolonization -) 1 applic TP HS [facility] Last Admin: 10/13/17 21:21 Dose: 1 applic Diltiazem HCl (Cardizem -) 90 mg PO Q6HPO [facility] Last Admin: 10/14/17 11:07 Dose: 90 mg Heparin Sodium (Porcine) (Heparin -) 5,000 unit SQ BID SELVIN Last Admin: 10/14/17 10:33 Dose: 5,000 unit Piperacillin Sod/Tazobactam (Sod 2.25 gm/ Dextrose) 50 mls @ 100 mls/hr IVPB Q8H-IV [facility]ELVIN Last Admin: 10/14/17 10:33 Dose: 100 mls/hr Propofol (Diprivan -) 1,000,000 mcg in 100 mls @ 3.388 mls/hr IVPB TITR SELVIN; 10 MCG/KG/MIN PRN Reason: Protocol Last Admin: 10/14/17 10:32 Dose: Not Given Dextrose (D10w -) 1,000 mls @ 42 mls/hr IV ASDIR SELVIN Last Admin: 10/12/17 21:18 Dose: Not Given Phenylephrine HCl 20,000 mcg/ (Sodium Chloride) 250 mls @ 75 mls/hr IVPB ASDIR SELVIN; 100 MCG/MIN PRN Reason: Protocol Last Admin: 10/13/17 21:20 Dose: Not Given Insulin Aspart (Novolog Vial Sliding Scale -) 1 vial SQ ACHS SELVIN PRN Reason: Protocol Last Admin: 10/14/17 10:34 Dose: 4 units Insulin Detemir (Levemir Vial) 10 units SQ HS [facility] Last Admin: 10/13/17 21:22 Dose: 10 units Metoprolol Tartrate (Lopressor Injection -) 5 mg IVPUSH Q4H PRN PRN Reason: TACHYCARDIA Last Admin: 10/05/17 17:49 Dose: 5 mg Midazolam HCl (Versed -) 2 mg IVPUSH Q2H PRN PRN Reason: AGITATION Last Admin: 10/14/17 00:25 Dose: 2 mg Pantoprazole Sodium (Protonix Iv) 40 mg IVPUSH DAILY [facility]EL[facility]IN Last Admin: 10/14/17 10:33 Dose: 40 mg Gen: Extubated, awake, NAD Heart: RRR Lung: scattered rhonchi, Right > Left Abd: soft, nontender Ext: left foot warmer, less dusky Laboratory Results - last 24 hr 10/13/17 10/13/17 10/14/17 11:16 16:53 05:43 WBC 22.3 H RBC 2.60 L Hgb 7.8 L Hct 23.5 L MCV 90.5 MCH 30.2 MCHC 33.3 RDW 15.9 Plt Count 412 MPV 8.7 Neutrophils % No Result Required. Neutrophils % (Manual) 92.9 H* Band Neutrophils % 0.0 Lymphocytes % No Result Required. Lymphocytes % (Manual) 2.0 L D Monocytes % (Manual) 3 L Eosinophils % (Manual) 0.0 D Basophils % (Manual) 1.0 D Myelocytes % (Man) 1 D Promyelocytes % (Man) 0 Blast Cells % (Manual) 0 Nucleated RBC % 0 Metamyelocytes 0 Toxic Granulation 1+ Platelet Estimate Normal Stomatocytes 1+ Sodium Potassium Chloride Carbon Dioxide Anion Gap BUN Creatinine Creat Clearance w eGFR POC Glucometer 241.09552 242.99525 Random Glucose Calcium Magnesium Total Bilirubin AST ALT Alkaline Phosphatase Total Protein Albumin 10/14/17 10/14/17 05:43 10:30 WBC RBC Hgb Hct MCV MCH MCHC RDW Plt Count MPV Neutrophils % Neutrophils % (Manual) Band Neutrophils % Lymphocytes % Lymphocytes % (Manual) Monocytes % (Manual) Eosinophils % (Manual) Basophils % (Manual) Myelocytes % (Man) Promyelocytes % (Man) Blast Cells % (Manual) Nucleated RBC % Metamyelocytes Toxic Granulation Platelet Estimate Stomatocytes Sodium 142 Potassium 4.5 Chloride 103 Carbon Dioxide 34 H D Anion Gap 5 L BUN 36 H D Creatinine 1.8 H D Creat Clearance w eGFR 36.67 POC Glucometer 266.28165 Random Glucose 90 D Calcium 7.1 L Magnesium 1.8 Total Bilirubin 0.1 L D AST 33 ALT 21 Alkaline Phosphatase 80 Total Protein 4.6 L Albumin 1.1 L ASSESSMENT AND PLAN: Acute Hypoxic Respiratory Failure Pneumonia Septic Shock Acute on Chronic Renal Failure Lactic Acidosis Diabetic Ketoacidosis improving Paroxysmal Atrial Fibrillation with RVR HTN DM COPD r/o Critical Illness Myopathy/Polyneuropathy Left foot hypoperfusion likely due to pressors and underlying vascular insufficiency - Monitor off pressors - continue antibiotics - HD per renal - monitor urine output, creatinine - monitor I/Os - glucose control - rate control - anticoagulation per cardiology - taper FiO2 to keep SpO2 >90% - enteral feeds - DVT/GI prophylaxis - D/C HD catheter - DNR/DNI - Cardiac Telemetry monitoring Dr Acosta Critical care time spent in reviewing chart, evaluating patient and formulating plan 36 min
--- NOTE | 2017-10-14 14:13 | PN ---
Progress Note (short form) - Note Progress Note: Awake, Eyes open, in NAD On tube feeding Vital Signs Period Temp Pulse Resp BP Sys/Sy Pulse Ox Last 24 Hr 98.5 F-99.2 F 86-120 18-41 111-149/43-74 95-97 PE: Eyes open, awake, Neck: supple Lungs: few rhonchi CVS: S1S2 Abd: Benign Ext: No edema, dusky coloration left 1st and 2nd toes Neuro: Awake, open eyes, CMP Sodium 142 mmol/L (136-145) 10/14/17 05:43 Potassium 4.5 mmol/L (3.5-5.1) 10/14/17 05:43 Chloride 103 mmol/L (98-107) 10/14/17 05:43 Carbon Dioxide 34 mmol/L (21-32) H D 10/14/17 05:43 Anion Gap 5 (8-16) L 10/14/17 05:43 BUN 36 mg/dL (7-18) H D 10/14/17 05:43 Creatinine 1.8 mg/dL (0.7-1.3) H D 10/14/17 05:43 Creat Clearance w eGFR 36.67 (>60) 10/14/17 05:43 POC Glucometer 266.27528 UNITS (80-120) 10/14/17 10:30 Random Glucose 90 mg/dL (74-106) D 10/14/17 05:43 Hemoglobin A1c % 8.5 % (4.8-6.0) H D 10/04/17 06:00 Lactic Acid 2.0 mmol/L (0.0-2.0) 10/03/17 12:00 Calcium 7.1 mg/dL (8.5-10.1) L 10/14/17 05:43 Phosphorus 6.6 mg/dL (2.5-4.9) H 10/13/17 06:05 Magnesium 1.8 mg/dL (1.8-2.4) 10/14/17 05:43 Iron 22 ug/dL (38-169) L 10/06/17 05:50 Ferritin 202.816 ng/ml (16.4-293.9) 10/06/17 05:50 Total Bilirubin 0.1 mg/dL (0.2-1.0) L D 10/14/17 05:43 AST 33 U/L (15-37) 10/14/17 05:43 ALT 21 U/L (12-78) 10/14/17 05:43 Alkaline Phosphatase 80 U/L (45-117) 10/14/17 05:43 Total Protein 4.6 g/dl (6.4-8.2) L 10/14/17 05:43 Albumin 1.1 g/dl (3.4-5.0) L 10/14/17 05:43 Vitamin B12 1602 pg/ml (180-914) H 10/06/17 05:50 Serum Folate 23 ng/ml (3.1-17.5) H 10/06/17 05:50 Current Medications Generic Name Dose Route Start Last Admin Trade Name Freq PRN Reason Stop Dose Admin Acetaminophen 650 mg 10/09/17 05:40 10/10/17 18:23 Tylenol - PO 650 mg Q6H PRN Administration FEVER Amino Acids 30 ml 10/13/17 17:30 10/14/17 10:32 Prosource No Carb Liquid Pkt NGT 30 ml BID@0800,1730 SELVIN Administration Chlorhexidine Gluconate 1 applic 10/03/17 22:00 10/13/17 21:21 Hibiclens For Decolonization - TP 1 applic HS SELVIN Administration Diltiazem HCl 90 mg 10/07/17 19:45 10/14/17 11:07 Cardizem - PO 90 mg Q6HPO SELVIN Administration Heparin Sodium (Porcine) 5,000 unit 10/03/17 10:00 10/14/17 10:33 Heparin - SQ 5,000 unit BID SELVIN Administration Piperacillin Sod/Tazobactam 50 mls @ 100 mls/hr 10/03/17 18:00 10/14/17 10:33 Sod 2.25 gm/ Dextrose IVPB 100 mls/hr Q8H-IV SELVIN Administration Propofol 1,000,000 mcg in 100 mls @ 3.388 mls/hr 10/04/17 09:15 10/14/17 10: 32 Diprivan - IVPB Not Given TITR SELVIN Protocol 10 MCG/KG/MIN Dextrose 1,000 mls @ 42 mls/hr 10/06/17 18:45 10/12/17 21:18 D10w - IV Not Given ASDIR SELVIN Phenylephrine HCl 20,000 mcg/ 250 mls @ 75 mls/hr 10/07/17 19:00 10/13/17 21: 20 Sodium Chloride IVPB Not Given ASDIR [facility] Protocol 100 MCG/MIN Insulin Aspart 1 vial 10/12/17 12:14 10/14/17 10:34 Novolog Vial Sliding Scale - SQ 4 units ACHS SELVIN Administration Protocol Insulin Detemir 10 units 10/12/17 22:00 10/13/17 21:22 Levemir Vial SQ 10 units HS SELVIN Administration Metoprolol Tartrate 5 mg 10/03/17 19:00 10/05/17 17:49 Lopressor Injection - IVPUSH 5 mg Q4H PRN Administration TACHYCARDIA Midazolam HCl 2 mg 10/03/17 14:35 10/14/17 00:25 Versed - IVPUSH 2 mg Q2H PRN Administration AGITATION Pantoprazole Sodium 40 mg 10/05/17 14:45 10/14/17 10:33 Protonix Iv IVPUSH 40 mg DAILY SELVIN Administration AP; Acute Hypoxic Respiratory Failure s/p Extubation Pneumonia Septic Shock DM with Acidosis ? DKA,?Lactic acidosis Acute on Chronic Renal Failure Paroxysmal Atrial Fibrillation with RVR HTN COPD Ischemic changes left first and 2nd toes BGM Q6 hr Levemir 10 units daily Novolog coverage continue antibiotics Tube feeding as tolerated Chart reviewed Start D10W at 42 ml/hr whenever tube feeding is on hold or discontinued until food intake is adequate. As pt was admitted with acidosis possibly DKA, need to continue to administer long acting Insulin Will f/u
--- NOTE | 2017-10-14 16:02 | PN ---
Progress Note, Physician History of Present Illness: patient had an episode of janene otherwise stable awake and alert - Current Medication List Current Medications: Active Medications Acetaminophen (Tylenol -) 650 mg PO Q6H PRN PRN Reason: FEVER Last Admin: 10/10/17 18:23 Dose: 650 mg Amino Acids (Prosource No Carb Liquid Pkt) 30 ml NGT BID@0800,1730 [facility] Last Admin: 10/14/17 10:32 Dose: 30 ml Chlorhexidine Gluconate (Hibiclens For Decolonization -) 1 applic TP HS [facility] Last Admin: 10/13/17 21:21 Dose: 1 applic Diltiazem HCl (Cardizem -) 90 mg PO Q6HPO [facility] Last Admin: 10/14/17 11:07 Dose: 90 mg Heparin Sodium (Porcine) (Heparin -) 5,000 unit SQ BID [facility] Last Admin: 10/14/17 10:33 Dose: 5,000 unit Propofol (Diprivan -) 1,000,000 mcg in 100 mls @ 3.388 mls/hr IVPB TITR SELVIN; 10 MCG/KG/MIN PRN Reason: Protocol Last Admin: 10/14/17 10:32 Dose: Not Given Dextrose (D10w -) 1,000 mls @ 42 mls/hr IV ASDIR SELVIN Last Admin: 10/12/17 21:18 Dose: Not Given Phenylephrine HCl 20,000 mcg/ (Sodium Chloride) 250 mls @ 75 mls/hr IVPB ASDIR SELVIN; 100 MCG/MIN PRN Reason: Protocol Last Admin: 10/13/17 21:20 Dose: Not Given Insulin Aspart (Novolog Vial Sliding Scale -) 1 vial SQ ACHS [facility] PRN Reason: Protocol Last Admin: 10/14/17 10:34 Dose: 4 units Insulin Detemir (Levemir Vial) 10 units SQ HS [facility] Last Admin: 10/13/17 21:22 Dose: 10 units Metoprolol Tartrate (Lopressor Injection -) 5 mg IVPUSH Q4H PRN PRN Reason: TACHYCARDIA Last Admin: 10/05/17 17:49 Dose: 5 mg Midazolam HCl (Versed -) 2 mg IVPUSH Q2H PRN PRN Reason: AGITATION Last Admin: 10/14/17 00:25 Dose: 2 mg Pantoprazole Sodium (Protonix Iv) 40 mg IVPUSH DAILY [facility] Last Admin: 10/14/17 10:33 Dose: 40 mg - Objective Vital Signs: Vital Signs Temperature 98.6 F 10/14/17 10:00 Pulse Rate 109 H 10/14/17 14:00 Respiratory Rate 35 H 10/14/17 14:00 Blood Pressure 91/59 10/14/17 14:00 O2 Sat by Pulse Oximetry (%) 96 10/14/17 15:39 Constitutional: Yes: No Distress, Calm Cardiovascular: Yes: S1, S2 Respiratory: Yes: Regular, On Nasal O2, Poor Air Entry Gastrointestinal: Yes: Soft, Hypoactive Bowel Sounds, Melena Genitourinary: Yes: Lang[place] Present Musculoskeletal: Yes: WNL Extremities: Yes: WNL Neurological: Yes: Alert Psychiatric: Yes: Alert Labs: CBC, BMP 10/14/17 05:43 10/14/17 05:43 INR, PTT INR 1.09 (0.82-1.09) 10/06/17 14:10 Assessment/Plan 76 year old male with a significant past medical history of COPD, GI bleed, diverticulosis, HLD, CVA, intussusception, umbilical hernia, DM, HTN, sinus cancer with excision and polypectomy who is now intubated and sedated and on pressors Acute Hypoxic Respiratory Failure Pneumonia Septic Shock Acute on Chronic Renal Failure Lactic Acidosis Diabetic Ketoacidosis improving HTN DM COPD cx result noted plan continue abx continue close monitoring monitor wbc close watch might ed transfusion cc time 40 min
[2017-10-14] MEDS ORDERED: FUROSEMIDE 40 MG/4 ML INJECTABLE VIAL ONE (16:28)
[2017-10-14] MEDS ORDERED: ceFAZolin SODIUM 1 GM VIAL ONE ×2 (16:28→21:42)
[2017-10-14] MEDS: CEFAZOLIN 1 GM in DEXTROSE 5%-WATER - 50 ML IVPB SCH (16:56)
--- NOTE | 2017-10-14 18:14 | PN ---
Progress Note (short form) - Note Progress Note: Pt with an episode of melena. Protonix increased to BID. Will f/u CBC CBC revealed Hgb 6.1 (down from 7.8 this am) 2U PRBCs ordered Npo Heparin D/Rene
[2017-10-14 20:24] LABS: MEAN PLT VOLUME 8.7 fl (7.5-11.1)
[2017-10-14 20:29] LABS: HEMATOCRIT 18.4 % (35.4-49); MCH 30.1 pg (25.7-33.7); MCHC 33.2 g/dl (32.0-35.9); MEAN CELL VOLUME 90.5 fl (80-96); PLATELET COUNT 378 K/MM3 (134-434); RBC 2.03 M/mm3 (4.00-5.60); RDW 16.1 % (11.9-15.9); WHITE BLOOD COUNT 19.5 K/mm3 (4.0-10.0)
[2017-10-14 20:32] LABS: HEMOGLOBIN 6.1 GM/dL (11.7-16.9)
[2017-10-14] MEDS ORDERED: POTASSIUM CHLORIDE TABS 20 MEQ TABLET.ER (FP) PO ONE (21:15)
[2017-10-14] MEDS ORDERED: POTASSIUM CHLORIDE ORAL LIQUID 20 MEQ/15 ML PO ONE (23:00)
[2017-10-14] MEDS: CHLORHEXIDINE GLUCONATE 4% CLEANSER FOR DECOLONIZATION TP SCH (23:08)
[2017-10-14] MEDS ORDERED: HEMOQUE TEST 1 EACH EACH ONE (23:53)
[2017-10-15] MEDS: PHENYLEPHRINE HCL 20,000 MCG in SODIUM CHLORIDE 248 ML IVPB SCH (00:27)
[2017-10-15] MEDS: INSULIN (LEVEMIR) 100 UNITS/ML UNITS SQ SCH ×2 (00:28→23:54)
[2017-10-15] MEDS: INSULIN SLIDING SCALE (NOVOLOG) 1 VIAL SQ SCH ×5 (00:29→23:54)
[2017-10-15 02:03] LABS: MCH 29.9 pg (25.7-33.7); MCHC 33.1 g/dl (32.0-35.9); MEAN CELL VOLUME 90.3 fl (80-96); PLATELET COUNT 386 K/MM3 (134-434); RBC 2.22 M/mm3 (4.00-5.60); RDW 15.9 % (11.9-15.9); WHITE BLOOD COUNT 19.4 K/mm3 (4.0-10.0)
[2017-10-15 02:06] LABS: HEMOGLOBIN 6.6 GM/dL (11.7-16.9)
[2017-10-15] MEDS: dilTIAZem HCL 30 MG TABLET (FP) PO SCH ×3 (05:32→18:01)
[2017-10-15] MEDS: DEXTROSE 10%-WATER - 1,000 ML IV SCH ×2 (06:27→18:45)
[2017-10-15 06:29] LABS: BASO % 0.8 % (0-2.0); EOS % 0.5 % (0-4.5); HEMATOCRIT 21.3 % (35.4-49); HEMOGLOBIN 7.3 GM/dL (11.7-16.9); LYMPH % 3.5 % (8-40); MCH 30.7 pg (25.7-33.7); MCHC 34.3 g/dl (32.0-35.9); MEAN CELL VOLUME 89.5 fl (80-96); MONO % 4.6 % (3.8-10.2); NEUT % 90.6 % (42.8-82.8); PLATELET COUNT 389 K/MM3 (134-434); RBC 2.38 M/mm3 (4.00-5.60); RDW 15.6 % (11.9-15.9)
[2017-10-15 06:32] LABS: INR 1.16 (0.82-1.09); PROTHROMBIN TIME (PATIENT) 13.1 SEC (9.98-11.88)
[2017-10-15 06:35] LABS: ACTIVATED PTT 23.7 SECONDS (26.9-34.4)
[2017-10-15 06:52] LABS: CALCIUM 7.4 mg/dL (8.5-10.1); CHLORIDE 103 mmol/L (98-107); SODIUM 143 mmol/L (136-145)
[2017-10-15] MEDS: AMINO ACIDS/PROTEIN HYDROLYS 30 ML LIQUID.PKT NGT SCH ×2 (08:21→17:47)
[2017-10-15 08:25] LABS: ALBUMIN 1.2 g/dl (3.4-5.0); ALK PHOS 74 U/L (45-117); ANION GAP 11 (8-16); BILIRUBIN,TOTAL 0.2 mg/dL (0.2-1.0); BLOOD UREA NITROGEN 82 mg/dL (7-18); CO2 29 mmol/L (21-32); CREATININE 3.1 mg/dL (0.7-1.3); GLUCOSE,RANDOM 180 mg/dL (74-106); MAGNESIUM 2.1 mg/dL (1.8-2.4); PHOSPHOROUS 6.2 mg/dL (2.5-4.9); SGOT/AST 21 U/L (15-37); SGPT/ALT 15 U/L (12-78); TOT PROT 4.6 g/dl (6.4-8.2)
[2017-10-15 08:46] LABS: POTASSIUM 6.1 mmol/L (3.5-5.1)
--- NOTE | 2017-10-15 08:46 | PN ---
Physical Exam: SUBJECTIVE: Patient seen and examined in the ICU. Episode of melena last night. Transfused two units. Patient denies chest pain and shortness of breath. Denies abdominal pain. OBJECTIVE: Vital Signs Period Temp Pulse Resp BP Sys/Sy Pulse Ox Last 24 Hr 98.4 F-98.6 F 89-120 20-41 91-127/40-73 96-97 GENERAL: The patient is awake, alert, and fully oriented, in no acute distress. HEAD: Normal with no signs of trauma. LUNGS: Breath sounds equal, clear to auscultation bilaterally, no wheezes, no crackles, no accessory muscle use. HEART: Regular rate and rhythm, S1, S2 without murmur, rub or gallop. ABDOMEN: Soft, nontender, nondistended, normoactive bowel sounds, no guarding, no rebound EXTREMITIES: No DP pulses bilaterally, warm, pink. Unchanged blackness on great toe NEUROLOGICAL: Cranial nerves II through XII grossly intact. Moves all extremities Laboratory Results - last 24 hr 10/11/17 10/12/17 10/13/17 08:10 21:16 05:54 WBC RBC Hgb Hct MCV MCH MCHC RDW Plt Count MPV Neutrophils % Neutrophils % (Manual) Band Neutrophils % Lymphocytes % Lymphocytes % (Manual) Monocytes % Monocytes % (Manual) Eosinophils % Eosinophils % (Manual) Basophils % Basophils % (Manual) Myelocytes % (Man) Promyelocytes % (Man) Blast Cells % (Manual) Nucleated RBC % Metamyelocytes Toxic Granulation Platelet Estimate Stomatocytes PT with INR INR PTT (Actin FS) Sodium Chloride Carbon Dioxide Anion Gap BUN Creatinine Creat Clearance w eGFR POC Glucometer 250.25232 88.81389 Random Glucose Calcium Phosphorus Magnesium Total Bilirubin AST ALT Alkaline Phosphatase Total Protein Albumin Blood Type O NEGATIVE Antibody Screen Negative Crossmatch See Detail 10/13/17 10/14/17 10/14/17 21:13 05:43 05:45 WBC RBC Hgb Hct MCV MCH MCHC RDW Plt Count MPV Neutrophils % Neutrophils % (Manual) 92.9 H* Band Neutrophils % 0.0 Lymphocytes % Lymphocytes % (Manual) 2.0 L D Monocytes % Monocytes % (Manual) 3 L Eosinophils % Eosinophils % (Manual) 0.0 D Basophils % Basophils % (Manual) 1.0 D Myelocytes % (Man) 1 D Promyelocytes % (Man) 0 Blast Cells % (Manual) 0 Nucleated RBC % 0 Metamyelocytes 0 Toxic Granulation 1+ Platelet Estimate Normal Stomatocytes 1+ PT with INR INR PTT (Actin FS) Sodium Chloride Carbon Dioxide Anion Gap BUN Creatinine Creat Clearance w eGFR POC Glucometer 201.75735 130.11222 Random Glucose Calcium Phosphorus Magnesium Total Bilirubin AST ALT Alkaline Phosphatase Total Protein Albumin Blood Type Antibody Screen Crossmatch 10/14/17 10/14/17 10/14/17 10:30 16:09 19:15 WBC 19.5 H RBC 2.03 L D Hgb 6.1 L* D Hct 18.4 L D MCV 90.5 MCH 30.1 MCHC 33.2 RDW 16.1 H Plt Count 378 MPV 8.7 Neutrophils % Neutrophils % (Manual) Band Neutrophils % Lymphocytes % Lymphocytes % (Manual) Monocytes % Monocytes % (Manual) Eosinophils % Eosinophils % (Manual) Basophils % Basophils % (Manual) Myelocytes % (Man) Promyelocytes % (Man) Blast Cells % (Manual) Nucleated RBC % Metamyelocytes Toxic Granulation Platelet Estimate Stomatocytes PT with INR INR PTT (Actin FS) Sodium Chloride Carbon Dioxide Anion Gap BUN Creatinine Creat Clearance w eGFR POC Glucometer 266.82884 303.34599 Random Glucose Calcium Phosphorus Magnesium Total Bilirubin AST ALT Alkaline Phosphatase Total Protein Albumin Blood Type Antibody Screen Crossmatch 10/14/17 10/15/17 10/15/17 20:50 01:55 02:05 WBC 19.4 H RBC 2.22 L Hgb 6.6 L* Hct 20.0 L MCV 90.3 MCH 29.9 MCHC 33.1 RDW 15.9 Plt Count 386 MPV 9.0 Neutrophils % Neutrophils % (Manual) Band Neutrophils % Lymphocytes % Lymphocytes % (Manual) Monocytes % Monocytes % (Manual) Eosinophils % Eosinophils % (Manual) Basophils % Basophils % (Manual) Myelocytes % (Man) Promyelocytes % (Man) Blast Cells % (Manual) Nucleated RBC % Metamyelocytes Toxic Granulation Platelet Estimate Stomatocytes PT with INR INR PTT (Actin FS) Sodium Chloride Carbon Dioxide Anion Gap BUN Creatinine Creat Clearance w eGFR POC Glucometer 335.96366 Random Glucose Calcium Phosphorus Magnesium Total Bilirubin AST ALT Alkaline Phosphatase Total Protein Albumin Blood Type O NEGATIVE Antibody Screen Negative Crossmatch See Detail 10/15/17 10/15/17 10/15/17 05:46 05:46 05:46 WBC 18.0 H RBC 2.38 L Hgb 7.3 L D Hct 21.3 L MCV 89.5 MCH 30.7 MCHC 34.3 RDW 15.6 Plt Count 389 MPV 9.0 Neutrophils % 90.6 H Neutrophils % (Manual) Band Neutrophils % Lymphocytes % 3.5 L D Lymphocytes % (Manual) Monocytes % 4.6 Monocytes % (Manual) Eosinophils % 0.5 Eosinophils % (Manual) Basophils % 0.8 Basophils % (Manual) Myelocytes % (Man) Promyelocytes % (Man) Blast Cells % (Manual) Nucleated RBC % Metamyelocytes Toxic Granulation Platelet Estimate Stomatocytes PT with INR 13.10 H INR 1.16 H PTT (Actin FS) 23.7 L Sodium 143 Chloride 103 Carbon Dioxide 29 Anion Gap 11 BUN 82 H D Creatinine 3.1 H D Creat Clearance w eGFR 19.58 POC Glucometer Random Glucose 180 H D Calcium 7.4 L Phosphorus 6.2 H Magnesium 2.1 Total Bilirubin 0.2 D AST 21 D ALT 15 D Alkaline Phosphatase 74 Total Protein 4.6 L Albumin 1.2 L Blood Type Antibody Screen Crossmatch 10/15/17 06:01 WBC RBC Hgb Hct MCV MCH MCHC RDW Plt Count MPV Neutrophils % Neutrophils % (Manual) Band Neutrophils % Lymphocytes % Lymphocytes % (Manual) Monocytes % Monocytes % (Manual) Eosinophils % Eosinophils % (Manual) Basophils % Basophils % (Manual) Myelocytes % (Man) Promyelocytes % (Man) Blast Cells % (Manual) Nucleated RBC % Metamyelocytes Toxic Granulation Platelet Estimate Stomatocytes PT with INR INR PTT (Actin FS) Sodium Chloride Carbon Dioxide Anion Gap BUN Creatinine Creat Clearance w eGFR POC Glucometer 214.46177 Random Glucose Calcium Phosphorus Magnesium Total Bilirubin AST ALT Alkaline Phosphatase Total Protein Albumin Blood Type Antibody Screen Crossmatch Active Medications Generic Name Dose Route Start Last Admin Trade Name Freq PRN Reason Stop Dose Admin Acetaminophen 650 mg 10/09/17 05:40 10/10/17 18:23 Tylenol - PO 650 mg Q6H PRN Administration FEVER Amino Acids 30 ml 10/13/17 17:30 10/15/17 08:21 Prosource No Carb Liquid Pkt NGT Not Given BID@0800,1730 SELVIN Chlorhexidine Gluconate 1 applic 10/03/17 22:00 10/14/17 23:08 Hibiclens For Decolonization - TP 1 applic HS SELVIN Administration Diltiazem HCl 90 mg 10/07/17 19:45 10/15/17 05:32 Cardizem - PO 90 mg Q6HPO SELVIN Administration Propofol 1,000,000 mcg in 100 mls @ 3.388 mls/hr 10/04/17 09:15 10/14/17 10: 32 Diprivan - IVPB Not Given TITR SELVIN Protocol 10 MCG/KG/MIN Dextrose 1,000 mls @ 42 mls/hr 10/06/17 18:45 10/15/17 06:27 D10w - IV 42 mls/hr ASDIR SELVIN Administration Phenylephrine HCl 20,000 mcg/ 250 mls @ 75 mls/hr 10/07/17 19:00 10/15/17 00: 27 Sodium Chloride IVPB Not Given ASDIR SELVIN Protocol 100 MCG/MIN Cefazolin Sodium 1 gm/ 50 mls @ 100 mls/hr 10/14/17 16:15 10/14/17 16:56 Dextrose IVPB 100 mls/hr BID SELVIN Administration Insulin Aspart 1 vial 10/12/17 12:14 10/15/17 06:26 Novolog Vial Sliding Scale - SQ 3 units ACHS SELVIN Administration Protocol Insulin Detemir 10 units 10/12/17 22:00 10/15/17 00:28 Levemir Vial SQ 10 units HS SELVIN Administration Metoprolol Tartrate 5 mg 10/03/17 19:00 10/05/17 17:49 Lopressor Injection - IVPUSH 5 mg Q4H PRN Administration TACHYCARDIA Midazolam HCl 2 mg 10/03/17 14:35 10/14/17 00:25 Versed - IVPUSH 2 mg Q2H PRN Administration AGITATION Pantoprazole Sodium 40 mg 10/14/17 22:00 10/14/17 22:53 Protonix Iv IVPUSH 40 mg BID SELVIN Administration ASSESSMENT/PLAN: Patient is a 76 year old male with who presented for acute respiratory failure and was found to have pneumonia and DKA. Patient is admitted to ICU for further monitoring and management. Pulmonology #Acute Hypoxic Respiratory Failure -Likely secondary to Pneumonia -Continue Zosyn 2.25mg IV Q8H AND Azithromycin 500mg IV -Patient off Versed -Extubated 3 days ago, stable ventilatory status on venti mask #COPD -Continue Nebulizers -Continue Ventilation -Continue IV Abx #Atelectasis 2/2 trendelenburg positioning -Oxygen -Chest PT -Repositioning Infectious Disease #Septic Shock secondary to Pneumonia -Continue IV abx Azithromycin and Zosyn -Blood cultures negative -Sputum cultures staph, hector sensitive -Legionella negative -HOB elevated -Aspiration precautions -Off pressors -White count down to 18 from 22 yesterday GI #Melena -Episode of melena last night -Will consult GI -Protonix BID 40mg -Q6H CBCs until stabilized Nephrology #Acute on Chronic Renal Failure -Likely ATN secondary from Septic hock -Urine output 1000 y/d -Cr/BUN elevated today -Permacath placement today planned, but scrapped due to GI bleed -Trialysis placed today -Hyperkalemic to 6.1, in for dialysis today #AG and Non-AG Metabolic acidosis -Acidosis resolved Cardiovascular #Paroxysmal Atrial Fibrillation -Continue Cardizem 60mg Q6H -Metoprolol 5mg IVP Q4H PRN for Tachycardia #HTN -Patient not hypertensive -Will continue to monitor BP #CAD/PVD -Ischemia in left toe likely secondary to pressors, hypotension, and prior surgery in the left foot. -DP pulses not present today, left foot is warm, pink with discoloration around big toe -Vascular aware, following -Will optimize medically -Not candidate for asa, heparin due to hgb drop, h/o gi bleed -Plan for angio today #Anemia -Hgb dropped to 6.1, transfused 2 units, 6am labs 7.3 but had not completed transfusion yet -Hgb at noon 8.3 -CBCs stable, next will be 6am tomorrow -Transfuse <7 Endocrine #DKA-Resolved -Continue ISS -Continue BGM -Continue Levemir Neurology #Rule out Critical Illness Myopathy/Polyneuropathy -Patient following commands, moving all four extremities, deconditioned -Start PT F/E/N -On no fluids -Electrolytes wnl -On tube feeds- Renal, failed speech and swallow Prophylaxis -High risk. Heparin 5000 units SQ for DVT -Protonix 40mg IV BID daily Disposition -Patient is now DNR/DNI -Continued ICU care Visit type - Emergency Visit Emergency Visit: Yes ED Registration Date: 10/03/17 Care time: The patient presented to the Emergency Department on the above date and was hospitalized for further evaluation of their emergent condition. - New Patient This patient is new to me today: No - Critical Care Critical Care patient: Yes Total Critical Care Time (in minutes): 35 Critical Care Statement: The care of this patient involved high complexity decision making to prevent further life threatening deterioration of the patient 's condition and/or to evaluate & treat vital organ system(s) failure or risk of failure.
[2017-10-15] MEDS ORDERED: SODIUM CHLORIDE 250 ML IV PRN (09:25)
--- NOTE | 2017-10-15 09:26 | PN ---
Progress Note (short form) - Note Progress Note: Vascular Surgery Pt seen and examined bedside. Was able to obtain a dopplerable DP pulse in his left foot. Dry gangrene of great toe and first toe secondary to vasoconstriction when he was on pressors. Overnight pt recieved two units of prbc for melana. Pt had a drop in his H/H. Pt also with sats of 88% on ventimask. Discussed case with medical team. Will hold off surgery today. Please place temporary trialysis catheter in ICU. Workup for GI bleed. Will do permacath once cleared. Addison trejo DO
--- NOTE | 2017-10-15 09:53 | PN ---
Progress Note (short form) - Note Progress Note: Patient seen and examined today. More lethargic and not as interactive this morning most likely due to further stress with melena and sudden drop in Hb. requiring 2 units packed cells. O2 Sat 88-90 but BP stable now. Seen by Vascular MD and procedure to evaluate probable gangrenous changes 2 toes left foot on hold. With overall prognosis that testing may need to be deferred.For dialysis today. CXR noted. On Exam: Vital Signs Temp 98.4 F 10/15/17 00:00 Pulse 89 10/15/17 06:00 Resp 24 10/15/17 06:00 BP 124/48 10/15/17 06:00 Pulse Ox 96 10/14/17 21:00 Intake & Output 10/14/17 10/14/17 10/15/17 11:59 23:59 11:59 Intake Total 830 980 700 Output Total 700 300 500 Balance 130 680 200 Weight 133 lb 4.8 oz 131 lb 3 oz Intake: IVPB 50 100 Tube Feeding 480 580 Packed Cells 700 Tube Irrigant 300 300 Output: Urine 700 300 500 Lang[place] 700 300 500 Other: Voiding Method Indwelling Catheter Indwelling Catheter Indwelling Catheter Bowel Movement Yes: flexiseal Yes No Weight Measurement Method Built in Bedscale Built in Bedscale Lethargic Respiratory rate increased to 40/min Chest: Few Rhonchi bilaterally Abd: Some epigastric tenderness with face grimacing on palpation Ext; No edema; same demarcation 1st and 2nd toe left foot Abnormal Lab Results 10/11/17 10/14/17 10/14/17 08:10 05:43 19:15 WBC 19.5 H RBC 2.03 L D Hgb 6.1 L* D Hct 18.4 L D RDW 16.1 H Neutrophils % Neutrophils % (Manual) 92.9 H* Lymphocytes % Lymphocytes % (Manual) 2.0 L D Monocytes % (Manual) 3 L PT with INR INR PTT (Actin FS) Potassium BUN Creatinine Random Glucose Calcium Phosphorus Total Protein Albumin Crossmatch See Detail 10/14/17 10/15/17 10/15/17 20:50 01:55 05:46 WBC 19.4 H 18.0 H RBC 2.22 L 2.38 L Hgb 6.6 L* 7.3 L D Hct 20.0 L 21.3 L RDW Neutrophils % 90.6 H Neutrophils % (Manual) Lymphocytes % 3.5 L D Lymphocytes % (Manual) Monocytes % (Manual) PT with INR INR PTT (Actin FS) Potassium BUN Creatinine Random Glucose Calcium Phosphorus Total Protein Albumin Crossmatch See Detail 10/15/17 10/15/17 05:46 05:46 WBC RBC Hgb Hct RDW Neutrophils % Neutrophils % (Manual) Lymphocytes % Lymphocytes % (Manual) Monocytes % (Manual) PT with INR 13.10 H INR 1.16 H PTT (Actin FS) 23.7 L Potassium 6.1 H* D BUN 82 H D Creatinine 3.1 H D Random Glucose 180 H D Calcium 7.4 L Phosphorus 6.2 H Total Protein 4.6 L Albumin 1.2 L Crossmatch IMP: Acute GI Bleed Acute Blood loss Anemia requiring transfusions Acute Sepsis Acute on Chronic Renal Failure Dialysis Uncontolled DM with PVD DNR/DNI Acute Pneumonia COPD PLAN: Hold any Vascular testing for left foot F/U Lab Dialysis Heparin on hold
[2017-10-15] MEDS ORDERED: LIDOCAINE HCL 1%, 10 MG/ML (20ML VIAL) ONE (11:15)
[2017-10-15] MEDS ORDERED: ceFAZolin SODIUM 1 GM VIAL ONE ×2 (11:30→21:03)
[2017-10-15] MEDS ORDERED: PT OWN MED DRAWER 7, Y5N ONE ×2 (11:30→20:54)
[2017-10-15] MEDS ORDERED: DEXTROSE 5%-WATER - 50 ML IVPB ONE ×2 (11:30→21:03)
--- NOTE | 2017-10-15 11:36 | PN ---
Progress Note (short form) - Note Progress Note: Chief Complaint: resp failure History of Present Illness: lethargic but arousable weak no cp, palps, dizziness, sob Current Medications Generic Name Dose Route Start Last Admin Trade Name Ty PRN Reason Stop Dose Admin Acetaminophen 650 mg 10/09/17 05:40 10/10/17 18:23 Tylenol - PO 650 mg Q6H PRN Administration FEVER Amino Acids 30 ml 10/13/17 17:30 10/15/17 08:21 Prosource No Carb Liquid Pkt NGT Not Given BID@0800,1730 SELVIN Chlorhexidine Gluconate 1 applic 10/03/17 22:00 10/14/17 23:08 Hibiclens For Decolonization - TP 1 applic HS SELVIN Administration Diltiazem HCl 90 mg 10/07/17 19:45 10/15/17 05:32 Cardizem - PO 90 mg Q6HPO SELVIN Administration Propofol 1,000,000 mcg in 100 mls @ 3.388 mls/hr 10/04/17 09:15 10/14/17 10: 32 Diprivan - IVPB Not Given TITR SELVIN Protocol 10 MCG/KG/MIN Dextrose 1,000 mls @ 42 mls/hr 10/06/17 18:45 10/15/17 06:27 D10w - IV 42 mls/hr ASDIR SELVIN Administration Phenylephrine HCl 20,000 mcg/ 250 mls @ 75 mls/hr 10/07/17 19:00 10/15/17 00: 27 Sodium Chloride IVPB Not Given ASDIR SELVIN Protocol 100 MCG/MIN Cefazolin Sodium 1 gm/ 50 mls @ 100 mls/hr 10/14/17 16:15 10/14/17 16:56 Dextrose IVPB 100 mls/hr BID SELVIN Administration Sodium Chloride 250 mls @ 3,000 mls/hr 10/15/17 09:25 Normal Saline - IV 10/16/17 09:25 PRN PRN Hypotension during Dialysis Insulin Aspart 1 vial 10/12/17 12:14 10/15/17 06:26 Novolog Vial Sliding Scale - SQ 3 units ACHS SELVIN Administration Protocol Insulin Detemir 10 units 10/12/17 22:00 10/15/17 00:28 Levemir Vial SQ 10 units HS SELVIN Administration Metoprolol Tartrate 5 mg 10/03/17 19:00 10/05/17 17:49 Lopressor Injection - IVPUSH 5 mg Q4H PRN Administration TACHYCARDIA Midazolam HCl 2 mg 10/03/17 14:35 10/14/17 00:25 Versed - IVPUSH 2 mg Q2H PRN Administration AGITATION Pantoprazole Sodium 40 mg 10/14/17 22:00 10/14/17 22:53 Protonix Iv IVPUSH 40 mg BID SELVIN Administration - Objective Vital Signs: Vital Signs Period Temp Pulse Resp BP Sys/Sy Pulse Ox Last 24 Hr 98.4 F-98.6 F 89-115 20-35 91-124/40-63 96-96 Constitutional: Yes: cachectic, No Distress, Calm Cardiovascular: Yes: Regular Rate and Rhythm. No: JVD (tds exam), Gallop, Murmur Respiratory: Yes: Regular, bibasilar rales, nl effort Extremities: No: Cold Edema: No Neurological: Yes: Alert. No: Seizure Psychiatric: No: Agitated dimished dp/pt, gangrene of left foot. Labs: CBC, BMP 10/15/17 05:46 10/15/17 05:46 Echo 06/2017: mod lvh. nl lv fn. nl rv size/fn. 1+ lae. mod-sev mac with mod ms. 1+ mr. nl rvsp. 1+ ao dilation tele: SR A/P 76 yo with pmhx of htn, hl, pad, afib (not on AC due to GIB), cva (no residual deficits), copd, dm, mgus, esthesioneuroblastoma treated with radiation therapy , chronic anemia s/p recent GIB admitted with dka, sepsis, resp failure. Hospital course now complicated by episode of afib with rvr afib - not previously a candidate for AC b/c of prior hx of GIB. remains anemic with melena here as well. - s/p IV amio. started po dilt 10/05. now back in sr. hr controlled. - off Amio, remains in sinus. BPs soft but tolerating diltiazem hi dose (90mg q6H)--continue same for now - 10/07: initiated HD this evening and subsequently went into RVR with HR's in the 140's. sbp's dropped into 70's. Patient was restarted on neosynephrine and given one time dose of 150 mg of amiodarone --> conversion to normal rhythm. Will uptitrate po dilt to 90 q6h and wean off pressors. starting ASA today. - 10/08: slight hgb drop on asa. iron studies notes. con't to monitor hgb. Consider discussing again candidacy for AC once hemodynamically stable, given patient is high risk for stroke (with h/o prior cva). Improved HR control on increased dilt, con't same - 10/11: hgb drifting down. stop ASA. not a candidate for AC at this time as risks of serious bleeding are > benefits - 10/12-20: remains in SR, bp stable off pressors. con't dilt for suppression. No ac as above. mitral stenosis: - aggressive control of afib to prevent tachycardia-->CHF as doing - defer amio for now, may have to reconsider if recurrent rapid AF despite sepsis/PNA complete resolution htn - anti-htn regimen had been held b/c of septic shock requiring pressors - continue to observe on dilt. cva/pad - con't statin. - per pmd, previously not a candidate for asa due to recent gib and anemia. hgb drifting down on asa here, held again mild asc ao dilation - can consider switching to beta car once resp issues resolve. PNA with septic shock, resp failure - off phenylephrine as of AM 10/11, hemodynamically stable currently - cont ICU monitoring - extubated 10/12 SHANTA - renal following, no sig improvement --> initiated HD 10/07.
--- NOTE | 2017-10-15 11:56 | PN ---
Teaching Attending Note Name of Resident: Curt Caputo ATTENDING PHYSICIAN STATEMENT I saw and evaluated the patient. I reviewed the resident's note and discussed the case with the resident. I agree with the resident's findings and plan as documented. SUBJECTIVE: Patient seen and examined in the ICU. Remains extubated on VM O2, awake and interactive. No pressors. CXR: some improvement in right base effusion/infiltrate OBJECTIVE: Intake & Output 10/12/17 10/13/17 10/14/17 10/15/17 23:59 23:59 23:59 23:59 Intake Total 1428 1830 1810 700 Output Total 500 1500 1000 500 Balance 928 330 810 200 Weight 141 lb 2 oz 135 lb 12.8 oz 133 lb 4.8 oz 131 lb 3 oz Last Vital Signs Temp Pulse Resp BP Pulse Ox 98.4 F 89 24 124/48 96 10/15/17 00:00 10/15/17 06:00 10/15/17 06:00 10/15/17 06:00 10/14/17 21:00 Active Medications Acetaminophen (Tylenol -) 650 mg PO Q6H PRN PRN Reason: FEVER Last Admin: 10/10/17 18:23 Dose: 650 mg Amino Acids (Prosource No Carb Liquid Pkt) 30 ml NGT BID@0800,1730 SELVIN Last Admin: 10/15/17 08:21 Dose: Not Given Chlorhexidine Gluconate (Hibiclens For Decolonization -) 1 applic TP HS SELVIN Last Admin: 10/14/17 23:08 Dose: 1 applic Diltiazem HCl (Cardizem -) 90 mg PO Q6HPO SELVIN Last Admin: 10/15/17 05:32 Dose: 90 mg Propofol (Diprivan -) 1,000,000 mcg in 100 mls @ 3.388 mls/hr IVPB TITR SELVIN; 10 MCG/KG/MIN PRN Reason: Protocol Last Admin: 10/14/17 10:32 Dose: Not Given Dextrose (D10w -) 1,000 mls @ 42 mls/hr IV ASDIR SELVIN Last Admin: 10/15/17 06:27 Dose: 42 mls/hr Phenylephrine HCl 20,000 mcg/ (Sodium Chloride) 250 mls @ 75 mls/hr IVPB ASDIR SELVIN; 100 MCG/MIN PRN Reason: Protocol Last Admin: 10/15/17 00:27 Dose: Not Given Cefazolin Sodium 1 gm/ (Dextrose) 50 mls @ 100 mls/hr IVPB BID [facility] Last Admin: 10/14/17 16:56 Dose: 100 mls/hr Sodium Chloride (Normal Saline -) 250 mls @ 3,000 mls/hr IV PRN PRN PRN Reason: Hypotension during Dialysis Stop: 10/16/17 09:25 Insulin Aspart (Novolog Vial Sliding Scale -) 1 vial SQ ACHS SELVIN PRN Reason: Protocol Last Admin: 10/15/17 06:26 Dose: 3 units Insulin Detemir (Levemir Vial) 10 units SQ HS SELVIN Last Admin: 10/15/17 00:28 Dose: 10 units Metoprolol Tartrate (Lopressor Injection -) 5 mg IVPUSH Q4H PRN PRN Reason: TACHYCARDIA Last Admin: 10/05/17 17:49 Dose: 5 mg Midazolam HCl (Versed -) 2 mg IVPUSH Q2H PRN PRN Reason: AGITATION Last Admin: 10/14/17 00:25 Dose: 2 mg Pantoprazole Sodium (Protonix Iv) 40 mg IVPUSH BID [facility] Last Admin: 10/14/17 22:53 Dose: 40 mg Gen: Extubated, awake, NAD Heart: RRR Lung: scattered rhonchi, Right > Left Abd: soft, nontender Ext: left foot warmer, less dusky Laboratory Results - last 24 hr 10/11/17 10/12/17 10/13/17 08:10 21:16 05:54 WBC RBC Hgb Hct MCV MCH MCHC RDW Plt Count MPV Neutrophils % Lymphocytes % Monocytes % Eosinophils % Basophils % PT with INR INR PTT (Actin FS) Sodium Potassium Chloride Carbon Dioxide Anion Gap BUN Creatinine Creat Clearance w eGFR POC Glucometer 250.07768 88.79457 Random Glucose Calcium Phosphorus Magnesium Total Bilirubin AST ALT Alkaline Phosphatase Total Protein Albumin Blood Type O NEGATIVE Antibody Screen Negative Crossmatch See Detail 10/13/17 10/14/17 10/14/17 21:13 05:45 16:09 WBC RBC Hgb Hct MCV MCH MCHC RDW Plt Count MPV Neutrophils % Lymphocytes % Monocytes % Eosinophils % Basophils % PT with INR INR PTT (Actin FS) Sodium Potassium Chloride Carbon Dioxide Anion Gap BUN Creatinine Creat Clearance w eGFR POC Glucometer 201.09868 130.90889 303.34607 Random Glucose Calcium Phosphorus Magnesium Total Bilirubin AST ALT Alkaline Phosphatase Total Protein Albumin Blood Type Antibody Screen Crossmatch 10/14/17 10/14/17 10/15/17 19:15 20:50 01:55 WBC 19.5 H 19.4 H RBC 2.03 L D 2.22 L Hgb 6.1 L* D 6.6 L* Hct 18.4 L D 20.0 L MCV 90.5 90.3 MCH 30.1 29.9 MCHC 33.2 33.1 RDW 16.1 H 15.9 Plt Count 378 386 MPV 8.7 9.0 Neutrophils % Lymphocytes % Monocytes % Eosinophils % Basophils % PT with INR INR PTT (Actin FS) Sodium Potassium Chloride Carbon Dioxide Anion Gap BUN Creatinine Creat Clearance w eGFR POC Glucometer Random Glucose Calcium Phosphorus Magnesium Total Bilirubin AST ALT Alkaline Phosphatase Total Protein Albumin Blood Type O NEGATIVE Antibody Screen Negative Crossmatch See Detail 10/15/17 10/15/17 10/15/17 02:05 05:46 05:46 WBC 18.0 H RBC 2.38 L Hgb 7.3 L D Hct 21.3 L MCV 89.5 MCH 30.7 MCHC 34.3 RDW 15.6 Plt Count 389 MPV 9.0 Neutrophils % 90.6 H Lymphocytes % 3.5 L D Monocytes % 4.6 Eosinophils % 0.5 Basophils % 0.8 PT with INR INR PTT (Actin FS) Sodium 143 Potassium 6.1 H* D Chloride 103 Carbon Dioxide 29 Anion Gap 11 BUN 82 H D Creatinine 3.1 H D Creat Clearance w eGFR 19.58 POC Glucometer [phone] Random Glucose 180 H D Calcium 7.4 L Phosphorus 6.2 H Magnesium 2.1 Total Bilirubin 0.2 D AST 21 D ALT 15 D Alkaline Phosphatase 74 Total Protein 4.6 L Albumin 1.2 L Blood Type Antibody Screen Crossmatch 10/15/17 10/15/17 05:46 06:01 WBC RBC Hgb Hct MCV MCH MCHC RDW Plt Count MPV Neutrophils % Lymphocytes % Monocytes % Eosinophils % Basophils % PT with INR 13.10 H INR 1.16 H PTT (Actin FS) 23.7 L Sodium Potassium Chloride Carbon Dioxide Anion Gap BUN Creatinine Creat Clearance w eGFR POC Glucometer 214.19293 Random Glucose Calcium Phosphorus Magnesium Total Bilirubin AST ALT Alkaline Phosphatase Total Protein Albumin Blood Type Antibody Screen Crossmatch ASSESSMENT AND PLAN: Acute Hypoxic Respiratory Failure Pneumonia Septic Shock Acute on Chronic Renal Failure Lactic Acidosis Diabetic Ketoacidosis improving Paroxysmal Atrial Fibrillation with RVR HTN DM COPD r/o Critical Illness Myopathy/Polyneuropathy Left foot hypoperfusion likely due to pressors and underlying vascular insufficiency - Monitor off pressors - continue antibiotics - HD per renal - monitor urine output, creatinine - monitor I/Os - glucose control - rate control - anticoagulation per cardiology - taper FiO2 to keep SpO2 >90% - enteral feeds - DVT/GI prophylaxis - DNR/DNI - Cardiac Telemetry monitoring Dr Acosta Critical care time spent in reviewing chart, evaluating patient and formulating plan 36 min
[2017-10-15] MEDS: PANTOPRAZOLE SODIUM 40 MG VIAL IVPUSH SCH ×2 (12:00→21:10)
[2017-10-15] MEDS: CEFAZOLIN 1 GM in DEXTROSE 5%-WATER - 50 ML IVPB SCH ×2 (12:00→21:10)
--- NOTE | 2017-10-15 12:06 | PROC ---
Central Line Insertion Indication: Other (Emergent Dialysis) Central Line: Other (Trialysis) Anesthesia: 1% Lidocaine Sterile Technique: Yes Ultrasound Guided Assistance: Yes Position: Right Internal Jugular Post Insertion: Yes: Bilateral Breath Sounds, Bilateral Chest Expansion, Chest X-Ray Ordered Sterile Dressing Applied: Yes
[2017-10-15 12:23] LABS: HEMATOCRIT 24.5 % (35.4-49); HEMOGLOBIN 8.3 GM/dL (11.7-16.9); MCH 30.2 pg (25.7-33.7); MCHC 33.9 g/dl (32.0-35.9); MEAN CELL VOLUME 89.3 fl (80-96); MEAN PLT VOLUME 7.9 fl (7.5-11.1); PLATELET COUNT 369 K/MM3 (134-434); RBC 2.74 M/mm3 (4.00-5.60); RDW 15.5 % (11.9-15.9); WHITE BLOOD COUNT 19.9 K/mm3 (4.0-10.0)
--- NOTE | 2017-10-15 12:53 | PN ---
Progress Note (short form) - Note Progress Note: HD Access in R IJ in good position. OK for use. Left atelectasis likely due to mucous plugging. PLAN: Positional drainage Chest PT Supplemental O2 Follow CXR Dr Acosta
--- NOTE | 2017-10-15 13:05 | PN ---
Progress Note (short form) - Note Progress Note: Awake, Eyes open, in NAD Undergoing dialysis Events noted, Drop in H/H Vital Signs Period Temp Pulse Resp BP Sys/Sy Pulse Ox Last 24 Hr 98.4 F-98.6 F 89-115 20-35 91-124/40-63 96-96 PE: Eyes open, awake, Neck: supple Lungs: few rhonchi CVS: S1S2 Abd: Benign Ext: No edema, dusky coloration left 1st and 2nd toes Neuro: Awake, open eyes, CMP Sodium 143 mmol/L (136-145) 10/15/17 05:46 Potassium 6.1 mmol/L (3.5-5.1) H* D 10/15/17 05:46 Chloride 103 mmol/L (98-107) 10/15/17 05:46 Carbon Dioxide 29 mmol/L (21-32) 10/15/17 05:46 Anion Gap 11 (8-16) 10/15/17 05:46 BUN 82 mg/dL (7-18) H D 10/15/17 05:46 Creatinine 3.1 mg/dL (0.7-1.3) H D 10/15/17 05:46 Creat Clearance w eGFR 19.58 (>60) 10/15/17 05:46 POC Glucometer 205.60056 UNITS (80-120) 10/15/17 12:31 Random Glucose 180 mg/dL (74-106) H D 10/15/17 05:46 Hemoglobin A1c % 8.5 % (4.8-6.0) H D 10/04/17 06:00 Lactic Acid 2.0 mmol/L (0.0-2.0) 10/03/17 12:00 Calcium 7.4 mg/dL (8.5-10.1) L 10/15/17 05:46 Phosphorus 6.2 mg/dL (2.5-4.9) H 10/15/17 05:46 Magnesium 2.1 mg/dL (1.8-2.4) 10/15/17 05:46 Iron 22 ug/dL (38-169) L 10/06/17 05:50 Ferritin 202.816 ng/ml (16.4-293.9) 10/06/17 05:50 Total Bilirubin 0.2 mg/dL (0.2-1.0) D 10/15/17 05:46 AST 21 U/L (15-37) D 10/15/17 05:46 ALT 15 U/L (12-78) D 10/15/17 05:46 Alkaline Phosphatase 74 U/L (45-117) 10/15/17 05:46 Total Protein 4.6 g/dl (6.4-8.2) L 10/15/17 05:46 Albumin 1.2 g/dl (3.4-5.0) L 10/15/17 05:46 Vitamin B12 1602 pg/ml (180-914) H 10/06/17 05:50 Serum Folate 23 ng/ml (3.1-17.5) H 10/06/17 05:50 Current Medications Generic Name Dose Route Start Last Admin Trade Name Freq PRN Reason Stop Dose Admin Acetaminophen 650 mg 10/09/17 05:40 10/10/17 18:23 Tylenol - PO 650 mg Q6H PRN Administration FEVER Amino Acids 30 ml 10/13/17 17:30 10/15/17 08:21 Prosource No Carb Liquid Pkt NGT Not Given BID@0800,1730 SELVIN Chlorhexidine Gluconate 1 applic 10/03/17 22:00 10/14/17 23:08 Hibiclens For Decolonization - TP 1 applic HS SELVIN Administration Diltiazem HCl 90 mg 10/07/17 19:45 10/15/17 12:07 Cardizem - PO Not Given Q6HPO SELVIN Dextrose 1,000 mls @ 42 mls/hr 10/06/17 18:45 10/15/17 06:27 D10w - IV 42 mls/hr ASDIR SELVIN Administration Cefazolin Sodium 1 gm/ 50 mls @ 100 mls/hr 10/14/17 16:15 10/14/17 16:56 Dextrose IVPB 100 mls/hr BID SELVIN Administration Sodium Chloride 250 mls @ 3,000 mls/hr 10/15/17 09:25 Normal Saline - IV 10/16/17 09:25 PRN PRN Hypotension during Dialysis Insulin Aspart 1 vial 10/12/17 12:14 10/15/17 06:26 Novolog Vial Sliding Scale - SQ 3 units ACHS SELVIN Administration Protocol Insulin Detemir 10 units 10/12/17 22:00 10/15/17 00:28 Levemir Vial SQ 10 units HS SELVIN Administration Metoprolol Tartrate 5 mg 10/03/17 19:00 10/05/17 17:49 Lopressor Injection - IVPUSH 5 mg Q4H PRN Administration TACHYCARDIA Pantoprazole Sodium 40 mg 10/14/17 22:00 10/14/17 22:53 Protonix Iv IVPUSH 40 mg BID SELVIN Administration AP; Acute Hypoxic Respiratory Failure s/p Extubation Pneumonia Septic Shock DM with Acidosis ? DKA,?Lactic acidosis Acute on Chronic Renal Failure Paroxysmal Atrial Fibrillation with RVR HTN COPD Ischemic changes left first and 2nd toes GI bleeding s/p transfuison BGM Q6 hr Levemir 10 units daily Novolog coverage continue antibiotics Tube feeding off currently, On D10 W Chart reviewed Start D10W at 42 ml/hr whenever tube feeding is on hold or discontinued until food intake is adequate. As pt was admitted with acidosis possibly DKA, need to continue to administer long acting Insulin Will f/u
--- NOTE | 2017-10-15 15:56 | PN ---
Progress Note, Physician History of Present Illness: stable no new issues wbc trending down awake and alert still with resp difficulty - Current Medication List Current Medications: Active Medications Acetaminophen (Tylenol -) 650 mg PO Q6H PRN PRN Reason: FEVER Last Admin: 10/10/17 18:23 Dose: 650 mg Amino Acids (Prosource No Carb Liquid Pkt) 30 ml NGT BID@0800,1730 [facility] Last Admin: 10/15/17 08:21 Dose: Not Given Chlorhexidine Gluconate (Hibiclens For Decolonization -) 1 applic TP HS [facility] Last Admin: 10/14/17 23:08 Dose: 1 applic Diltiazem HCl (Cardizem -) 90 mg PO Q6HPO [facility] Last Admin: 10/15/17 12:07 Dose: Not Given Dextrose (D10w -) 1,000 mls @ 42 mls/hr IV ASDIR [facility] Last Admin: 10/15/17 06:27 Dose: 42 mls/hr Cefazolin Sodium 1 gm/ (Dextrose) 50 mls @ 100 mls/hr IVPB BID [facility] Last Admin: 10/15/17 12:00 Dose: 100 mls/hr Sodium Chloride (Normal Saline -) 250 mls @ 3,000 mls/hr IV PRN PRN PRN Reason: Hypotension during Dialysis Stop: 10/16/17 09:25 Insulin Aspart (Novolog Vial Sliding Scale -) 1 vial SQ ACHS [facility] PRN Reason: Protocol Last Admin: 10/15/17 13:42 Dose: 3 units Insulin Detemir (Levemir Vial) 10 units SQ [facility] Last Admin: 10/15/17 00:28 Dose: 10 units Metoprolol Tartrate (Lopressor Injection -) 5 mg IVPUSH Q4H PRN PRN Reason: TACHYCARDIA Last Admin: 10/05/17 17:49 Dose: 5 mg Pantoprazole Sodium (Protonix Iv) 40 mg IVPUSH BID [facility] Last Admin: 10/15/17 12:00 Dose: 40 mg - Objective Vital Signs: Vital Signs Temperature 98.5 F 10/15/17 14:00 Pulse Rate 95 H 10/15/17 14:30 Respiratory Rate 18 10/15/17 14:30 Blood Pressure 121/85 10/15/17 14:30 O2 Sat by Pulse Oximetry (%) 100 10/15/17 15:46 Constitutional: Yes: No Distress, Calm Cardiovascular: Yes: S1, S2 Respiratory: Yes: On Nasal O2, On Venti-Mask, Poor Air Entry, Rhonchi Gastrointestinal: Yes: Soft, Hypoactive Bowel Sounds Genitourinary: Yes: [place] Present Musculoskeletal: Yes: WNL Extremities: Yes: WNL Integumentary: Yes: Other (discoloration of the 1st 2 toes of the left foot) Neurological: Yes: Alert, Other Psychiatric: Yes: Alert Labs: CBC, BMP 10/15/17 12:14 10/15/17 05:46 INR, PTT INR 1.16 (0.82-1.09) H 10/15/17 05:46 Assessment/Plan 76 year old male with a significant past medical history of COPD, GI bleed, diverticulosis, HLD, CVA, intussusception, umbilical hernia, DM, HTN, sinus cancer with excision and polypectomy Acute Hypoxic Respiratory Failure Pneumonia Septic Shock Acute on Chronic Renal Failure Lactic Acidosis Diabetic Ketoacidosis improving HTN DM COPD gluteal ulcer discoloration of the toes plan continue abx continue close monitoring monitor wbc close watch vascular on manager rn case wbc rest as per icu cc time 40 min
--- NOTE | 2017-10-15 16:19 | PN ---
Progress Note (short form) - Note Progress Note: Renal follow up for SHANTA Pt seen and examined in the ICU awake on facemask O2 has episode of melena last night and had acute blood loss no abd pain, N/V making urine K is 6.1 this am Vital Signs Temperature 98.5 F 10/15/17 14:00 Pulse Rate 101 H 10/15/17 16:00 Respiratory Rate 18 10/15/17 16:00 Blood Pressure 137/68 10/15/17 16:00 O2 Sat by Pulse Oximetry (%) 100 10/15/17 15:46 Intake & Output 10/12/17 10/13/17 10/14/17 10/15/17 23:59 23:59 23:59 23:59 Intake Total 1428 1830 1810 1086 Output Total 500 1500 1000 500 Balance 928 330 810 586 Weight 64.013 kg 61.598 kg 60.464 kg 59.506 kg NAD RRR, No M/R Dec BS at lung bases soft NT/ND No LE edema, clubbing or cyanosis heels in dressing CBC, BMP 10/15/17 12:14 10/15/17 05:46 Current Medications Acetaminophen (Tylenol -) 650 mg PO Q6H PRN PRN Reason: FEVER Last Admin: 10/10/17 18:23 Dose: 650 mg Amino Acids (Prosource No Carb Liquid Pkt) 30 ml NGT BID@0800,1730 [facility] Last Admin: 10/15/17 08:21 Dose: Not Given Chlorhexidine Gluconate (Hibiclens For Decolonization -) 1 applic TP HS [facility] Last Admin: 10/14/17 23:08 Dose: 1 applic Diltiazem HCl (Cardizem -) 90 mg PO Q6HPO [facility] Last Admin: 10/15/17 12:07 Dose: Not Given Dextrose (D10w -) 1,000 mls @ 42 mls/hr IV ASDIR [facility] Last Admin: 10/15/17 06:27 Dose: 42 mls/hr Cefazolin Sodium 1 gm/ (Dextrose) 50 mls @ 100 mls/hr IVPB BID [facility] Last Admin: 10/15/17 12:00 Dose: 100 mls/hr Sodium Chloride (Normal Saline -) 250 mls @ 3,000 mls/hr IV PRN PRN PRN Reason: Hypotension during Dialysis Stop: 10/16/17 09:25 Insulin Aspart (Novolog Vial Sliding Scale -) 1 vial SQ ACHS SELVIN PRN Reason: Protocol Last Admin: 10/15/17 13:42 Dose: 3 units Insulin Detemir (Levemir Vial) 10 units SQ HS [facility] Last Admin: 10/15/17 00:28 Dose: 10 units Metoprolol Tartrate (Lopressor Injection -) 5 mg IVPUSH Q4H PRN PRN Reason: TACHYCARDIA Last Admin: 10/05/17 17:49 Dose: 5 mg Pantoprazole Sodium (Protonix Iv) 40 mg IVPUSH BID [facility] Last Admin: 10/15/17 12:00 Dose: 40 mg 76 year old male with a significant past medical history of COPD, GI bleed, diverticulosis, HLD, CVA, intussusception, umbilical hernia, DM, HTN, sinus cancer with excision and polypectomy who presents to the ED, accompanied by , s/p high blood sugar levels earlier today. #SHANTA on CKD likely due to ATN in setting of sepsis #Sepsis/PNA #Metabolic acidosis (now resolved) #Anemia #Hx of Hypertension #DM on Insulin #Hyperphosphatemia HD today via trialysis catheter as pt has elevated K WIll continue to trend BUN/Cr and monitor for improvement in renal function strict I and O s/p PRBC transfusion GI follow up ICU monitoring Tomás Al DO
--- NOTE | 2017-10-15 18:02 | PN ---
Progress Note (short form) - Note Progress Note: Around 17:45 patient had a large episode of melena Call made out to Dr. Lutz, who is covering Dr. Erickson. Recommended to continue Protonix 40mg Q12H, remain NPO, monitor CBC and transfuse PRBC's as needed Will likely scope tomorrow morning. STAT CBC ordered and will follow up
[2017-10-15 18:28] LABS: BASO % 0.9 % (0-2.0); EOS % 0.2 % (0-4.5); HEMATOCRIT 23.5 % (35.4-49); HEMOGLOBIN 7.9 GM/dL (11.7-16.9); LYMPH % 2.3 % (8-40); MCHC 33.7 g/dl (32.0-35.9); MEAN PLT VOLUME 8.5 fl (7.5-11.1); MONO % 4.5 % (3.8-10.2); NEUT % 92.1 % (42.8-82.8); PLATELET COUNT 359 K/MM3 (134-434); RBC 2.64 M/mm3 (4.00-5.60); RDW 15.6 % (11.9-15.9); WHITE BLOOD COUNT 17.9 K/mm3 (4.0-10.0)
[2017-10-15] MEDS ORDERED: ACETYLCYSTEINE 20% 200MG/ML 4 ML VIAL *FOR ORAL / INH USE ONLY ONE (21:11)
[2017-10-15] MEDS: ACETYLCYSTEINE 20% 200MG/ML 30 ML VIAL *FOR ORAL / INH USE ONLY NEB SCH (21:25)
[2017-10-15] MEDS: ALBUTEROL SO4 0.083% IH SOL 2.5 MG/3 ML VIAL.NEB. NEB SCH (21:25)
[2017-10-15] MEDS: CHLORHEXIDINE GLUCONATE 4% CLEANSER FOR DECOLONIZATION TP SCH (23:53)
[2017-10-15] MEDS: ACETAMINOPHEN 325 MG TABLET (FP) PO PRN (23:53)
[2017-10-16] MEDS: dilTIAZem HCL 30 MG TABLET (FP) PO SCH ×4 (00:01→17:46)
[2017-10-16] MEDS ORDERED: ceFAZolin SODIUM 1 GM VIAL ONE ×3 (01:42→21:27)
[2017-10-16 05:52] LABS: BASO % 0.8 % (0-2.0); EOS % 0.3 % (0-4.5); HEMATOCRIT 22.1 % (35.4-49); HEMOGLOBIN 7.6 GM/dL (11.7-16.9); LYMPH % 3.2 % (8-40); MCH 30.8 pg (25.7-33.7); MCHC 34.2 g/dl (32.0-35.9); MEAN CELL VOLUME 89.9 fl (80-96); MEAN PLT VOLUME 8.7 fl (7.5-11.1); MONO % 4.9 % (3.8-10.2); NEUT % 90.8 % (42.8-82.8); PLATELET COUNT 367 K/MM3 (134-434); RBC 2.46 M/mm3 (4.00-5.60); RDW 15.5 % (11.9-15.9); WHITE BLOOD COUNT 14.2 K/mm3 (4.0-10.0)
[2017-10-16] MEDS: INSULIN SLIDING SCALE (NOVOLOG) 1 VIAL SQ SCH ×4 (06:20→22:47)
[2017-10-16 06:26] LABS: ANION GAP 8 (8-16); BLOOD UREA NITROGEN 42 mg/dL (7-18); CALCIUM 7.4 mg/dL (8.5-10.1); CHLORIDE 103 mmol/L (98-107); CO2 31 mmol/L (21-32); CREATININE 2.1 mg/dL (0.7-1.3); GLUCOSE,RANDOM 267 mg/dL (74-106); POTASSIUM 4.6 mmol/L (3.5-5.1); SODIUM 142 mmol/L (136-145)
--- NOTE | 2017-10-16 07:25 | PN ---
Progress Note (short form) - Note Progress Note: Seen and examined in the ICU Remains on VM 40% afebrile BP stable off pressors R sided opacity c/f mucus plugging on CXR Melena overnight w/ stable VS Hgb 8.3->7.6 Denies: MCCAULEY/CP/SOB/N/V/Abd pain Current Medications Acetaminophen (Tylenol -) 650 mg PO Q6H PRN PRN Reason: FEVER Last Admin: 10/15/17 23:53 Dose: 650 mg Acetylcysteine (Mucomyst 20 Oral / Inh Use Only*) 200 mg NEB BID [facility] Last Admin: 10/15/17 21:25 Dose: 200 mg Albuterol Sulfate (Ventolin 0.083% Nebulizer Soln -) 1 amp NEB BID [facility] Last Admin: 10/15/17 21:25 Dose: 1 amp Amino Acids (Prosource No Carb Liquid Pkt) 30 ml NGT BID@0800,1730 [facility] Last Admin: 10/15/17 17:47 Dose: Not Given Chlorhexidine Gluconate (Hibiclens For Decolonization -) 1 applic TP HS [facility] Last Admin: 10/15/17 23:53 Dose: 1 applic Diltiazem HCl (Cardizem -) 90 mg PO Q6HPO [facility] Last Admin: 10/16/17 05:11 Dose: 90 mg Dextrose (D10w -) 1,000 mls @ 42 mls/hr IV ASDIR [facility] Last Admin: 10/15/17 18:45 Dose: 42 mls/hr Cefazolin Sodium 1 gm/ (Dextrose) 50 mls @ 100 mls/hr IVPB BID [facility] Last Admin: 10/15/17 21:10 Dose: 100 mls/hr Sodium Chloride (Normal Saline -) 250 mls @ 3,000 mls/hr IV PRN PRN PRN Reason: Hypotension during Dialysis Stop: 10/16/17 09:25 Insulin Aspart (Novolog Vial Sliding Scale -) 1 vial SQ ACHS [facility] PRN Reason: Protocol Last Admin: 10/16/17 06:20 Dose: 4 units Insulin Detemir (Levemir Vial) 10 units SQ HS [facility] Last Admin: 10/15/17 23:54 Dose: 10 units Metoprolol Tartrate (Lopressor Injection -) 5 mg IVPUSH Q4H PRN PRN Reason: TACHYCARDIA Last Admin: 04/10/18 17:49 Dose: 5 mg Pantoprazole Sodium (Protonix Iv) 40 mg IVPUSH BID [facility] Last Admin: 10/15/17 21:10 Dose: 40 mg Vital Signs Period Temp Pulse Resp BP Sys/Sy Pulse Ox Last 24 Hr 98.0 F-98.9 F 74-106 18-35 93-157/49-86 90-100 Intake & Output 10/13/17 10/14/17 10/15/17 10/16/17 23:59 23:59 23:59 23:59 Intake Total 1830 1810 1472 396 Output Total 1500 1000 1100 500 Balance 330 810 372 -104 Weight 61.598 kg 60.464 kg 59.506 kg 55.248 kg Exam: General: awake and alert HEENT: PERRL, no JVD Pulm: bronchial on right, very diminished. left faint insp crackles Abd: SNTND, ext WWP Ext: left toes necrotic, no edema Neuro: AOx3, DRIVER CBC, BMP 10/16/17 05:35 10/16/17 05:35 CXR: complete right sided opacification c/f mucus plugging ASSESSMENT AND PLAN: Acute Hypoxic Respiratory Failure Pneumonia Septic Shock Acute on Chronic Renal Failure Lactic Acidosis Diabetic Ketoacidosis improving Paroxysmal Atrial Fibrillation with RVR HTN DM COPD r/o Critical Illness Myopathy/Polyneuropathy Left foot hypoperfusion likely due to pressors and underlying vascular insufficiency - GI notified about melena possible EGD today - Normal transfusion thresholds: Hgb >7.0, Plt >50 if actively bleeding - CPT given right sided opacity likely 2/2 mucus plugging - O2 for sat >90% - Incentive anastasiya - continue antibiotics per ID - HD per renal - monitor urine output, creatinine - monitor I/Os - glucose control - rate control - anticoagulation on hold 2/2 GIB - taper FiO2 to keep SpO2 >90% - Hold enteral feeds given GIB, restart per GI - DVT/GI prophylaxis - DNR/DNI Vladimir ACNP Pulm/CCM CCT: 36m
--- NOTE | 2017-10-16 09:05 | PN ---
Progress Note, Physician Chief Complaint: resp failure History of Present Illness: attempting to speak, not intelligible shakes head "no" to chest pain + cigs - Current Medication List Current Medications: Active Medications Acetaminophen (Tylenol -) 650 mg PO Q6H PRN PRN Reason: FEVER Last Admin: 10/15/17 23:53 Dose: 650 mg Acetylcysteine (Mucomyst 20 Oral / Inh Use Only*) 200 mg NEB BID [facility] Last Admin: 10/15/17 21:25 Dose: 200 mg Albuterol Sulfate (Ventolin 0.083% Nebulizer Soln -) 1 amp NEB BID [facility] Last Admin: 10/15/17 21:25 Dose: 1 amp Amino Acids (Prosource No Carb Liquid Pkt) 30 ml NGT BID@0800,1730 [facility] Last Admin: 10/15/17 17:47 Dose: Not Given Chlorhexidine Gluconate (Hibiclens For Decolonization -) 1 applic TP [facility] Last Admin: 10/15/17 23:53 Dose: 1 applic Diltiazem HCl (Cardizem -) 90 mg PO Q6HPO [facility] Last Admin: 10/16/17 05:11 Dose: 90 mg Dextrose (D10w -) 1,000 mls @ 42 mls/hr IV ASDIR [facility] Last Admin: 10/15/17 18:45 Dose: 42 mls/hr Cefazolin Sodium 1 gm/ (Dextrose) 50 mls @ 100 mls/hr IVPB BID [facility] Last Admin: 10/15/17 21:10 Dose: 100 mls/hr Sodium Chloride (Normal Saline -) 250 mls @ 3,000 mls/hr IV PRN PRN PRN Reason: Hypotension during Dialysis Stop: 10/16/17 09:25 Insulin Aspart (Novolog Vial Sliding Scale -) 1 vial SQ ACHS [facility] PRN Reason: Protocol Last Admin: 10/16/17 06:20 Dose: 4 units Insulin Detemir (Levemir Vial) 10 units SQ [facility] Last Admin: 10/15/17 23:54 Dose: 10 units Metoprolol Tartrate (Lopressor Injection -) 5 mg IVPUSH Q4H PRN PRN Reason: TACHYCARDIA Last Admin: 10/05/17 17:49 Dose: 5 mg Pantoprazole Sodium (Protonix Iv) 40 mg IVPUSH BID [facility] Last Admin: 10/15/17 21:10 Dose: 40 mg - Objective Vital Signs: Vital Signs Temperature 98.5 F 10/16/17 06:00 Pulse Rate 90 10/16/17 06:00 Respiratory Rate 26 H 10/16/17 06:00 Blood Pressure 131/56 10/16/17 06:00 O2 Sat by Pulse Oximetry (%) 92 L 10/15/17 21:00 Constitutional: Yes: No Distress, Calm Eyes: No: Sclera Icterus HENT: No: Nasal Congestion Cardiovascular: Yes: Regular Rate and Rhythm, Murmur (3/6 early peak EMMA rusb, no s2 split clearly heard), S1, S2, Other (PMI non diplaced). No: JVD, Gallop Respiratory: Yes: CTA Bilaterally, Diminished (R lung field). No: Accessory Muscle Use, Rales, Wheezes Gastrointestinal: Yes: Normal Bowel Sounds, Soft. No: Tenderness Musculoskeletal: Yes: Other (No kyphosis) Extremities: No: Cold Edema: No Integumentary: No: Jaundice Neurological: Yes: Alert. No: Seizure Psychiatric: No: Agitated Labs: CBC, BMP 10/16/17 05:35 10/16/17 05:35 INR, PTT INR 1.16 (0.82-1.09) H 10/15/17 05:46 Assessment/Plan Echo 06/2017: mod lvh. nl lv fn. nl rv size/fn. 1+ lae. mod-sev mac with mod ms. 1+ mr. nl rvsp. 1+ ao dilation (no or AI) tele: NSR A/P 76 yo with pmhx of htn, hl, pad, afib (not on AC due to GIB), cva (no residual deficits), copd, dm, mgus, esthesioneuroblastoma treated with radiation therapy , chronic anemia s/p recent GIB admitted with dka, sepsis, resp failure. Hospital course now complicated by episode of afib with rvr afib - not previously a candidate for AC b/c of prior hx of GIB. remains anemic with melena here as well. - s/p IV amio. started po dilt 10/05. now back in sr. hr controlled. - off Amio, remains in sinus. BPs soft but tolerating diltiazem hi dose (90mg q6H)--continue same for now - hgb drifted down once ASA resumed--now d/c'd. not a candidate for AC at this time as risks of serious bleeding are > benefits - remains in SR, bp thus far tolerating diltiazem at present dose mitral stenosis: - aggressive control of afib to prevent tachycardia-->CHF as doing - defer amio for now, may have to reconsider if recurrent rapid AF despite sepsis/PNA complete resolution PNA with septic shock, resp failure - off phenylephrine as of AM 10/11, hemodynamically stable currently - cont ICU monitoring - extubated 10/12, remains stable resp status - white out R lung on cxr--per crit care anemia: - suspect occult GIB here (iker hgb 6.1) - s/p PRBCs - counts stable htn - home meds changed to diltiazem here for PAF rate control - bp stable cva/pad - con't statin. - per pmd, previously not a candidate for asa due to recent gib and anemia. hgb drifting down on asa here, held again mild asc ao dilation - can consider switching to beta car once resp issues resolve. SHANTA - renal following, no sig improvement --> initiated HD 10/07.
[2017-10-16] MEDS: AMINO ACIDS/PROTEIN HYDROLYS 30 ML LIQUID.PKT NGT SCH ×2 (09:07→17:46)
--- NOTE | 2017-10-16 09:52 | PN ---
Progress Note (short form) - Note Progress Note: Awake, Eyes open, in NAD Events noted, melena overnight On nasal canula Vital Signs Period Temp Pulse Resp BP Sys/Sy Pulse Ox Last 24 Hr 98.0 F-98.9 F 74-106 18-35 93-157/49-86 92-100 PE: , awake, alert Neck: supple Lungs: few rhonchi CVS: S1S2 Abd: Benign Ext: No edema, dusky coloration left 1st and 2nd toes Neuro: Awake, open eyes, CMP Sodium 142 mmol/L (136-145) 10/16/17 05:35 Potassium 4.6 mmol/L (3.5-5.1) D 10/16/17 05:35 Chloride 103 mmol/L (98-107) 10/16/17 05:35 Carbon Dioxide 31 mmol/L (21-32) 10/16/17 05:35 Anion Gap 8 (8-16) 10/16/17 05:35 BUN 42 mg/dL (7-18) H D 10/16/17 05:35 Creatinine 2.1 mg/dL (0.7-1.3) H D 10/16/17 05:35 Creat Clearance w eGFR 19.58 (>60) 10/15/17 05:46 POC Glucometer 301.22609 UNITS (80-120) 10/15/17 20:29 Random Glucose 267 mg/dL (74-106) H D 10/16/17 05:35 Hemoglobin A1c % 8.5 % (4.8-6.0) H D 10/04/17 06:00 Lactic Acid 2.0 mmol/L (0.0-2.0) 10/03/17 12:00 Calcium 7.4 mg/dL (8.5-10.1) L 10/16/17 05:35 Phosphorus 6.2 mg/dL (2.5-4.9) H 10/15/17 05:46 Magnesium 2.1 mg/dL (1.8-2.4) 10/15/17 05:46 Iron 22 ug/dL (38-169) L 10/06/17 05:50 Ferritin 202.816 ng/ml (16.4-293.9) 10/06/17 05:50 Total Bilirubin 0.2 mg/dL (0.2-1.0) D 10/15/17 05:46 AST 21 U/L (15-37) D 10/15/17 05:46 ALT 15 U/L (12-78) D 10/15/17 05:46 Alkaline Phosphatase 74 U/L (45-117) 10/15/17 05:46 Total Protein 4.6 g/dl (6.4-8.2) L 10/15/17 05:46 Albumin 1.2 g/dl (3.4-5.0) L 10/15/17 05:46 Vitamin B12 1602 pg/ml (180-914) H 10/06/17 05:50 Serum Folate 23 ng/ml (3.1-17.5) H 10/06/17 05:50 Current Medications Generic Name Dose Route Start Last Admin Trade Name Freq PRN Reason Stop Dose Admin Acetaminophen 650 mg 10/09/17 05:40 10/15/17 23:53 Tylenol - PO 650 mg Q6H PRN Administration FEVER Acetylcysteine 200 mg 10/15/17 22:00 10/15/17 21:25 Mucomyst 20 Oral / Inh Use Only* NEB 200 mg BID [facility] Administration Albuterol Sulfate 1 amp 10/15/17 22:00 10/15/17 21:25 Ventolin 0.083% Nebulizer Soln - NEB 1 amp BID [facility] Administration Amino Acids 30 ml 10/13/17 17:30 10/16/17 09:07 Prosource No Carb Liquid Pkt NGT Not Given BID@0800,1730 S[facility] Chlorhexidine Gluconate 1 applic 10/03/17 22:00 10/15/17 23:53 Hibiclens For Decolonization - TP 1 applic HS [facility] Administration Diltiazem HCl 90 mg 10/07/17 19:45 10/16/17 05:11 Cardizem - PO 90 mg Q6HPO [facility] Administration Dextrose 1,000 mls @ 42 mls/hr 10/06/17 18:45 10/15/17 18:45 D10w - IV 42 mls/hr ASDIR [facility] Administration Cefazolin Sodium 1 gm/ 50 mls @ 100 mls/hr 10/14/17 16:15 10/15/17 21:10 Dextrose IVPB 100 mls/hr BID [facility] Administration Sodium Chloride 250 mls @ 3,000 mls/hr 10/15/17 09:25 Normal Saline - IV 10/16/17 09:25 PRN PRN Hypotension during Dialysis Insulin Aspart 1 vial 10/12/17 12:14 10/16/17 06:20 Novolog Vial Sliding Scale - SQ 4 units ACHS [facility] Administration Protocol Insulin Detemir 10 units 10/12/17 22:00 10/15/17 23:54 Levemir Vial SQ 10 units HS [facility] Administration Metoprolol Tartrate 5 mg 10/03/17 19:00 10/05/17 17:49 Lopressor Injection - IVPUSH 5 mg Q4H PRN Administration TACHYCARDIA Pantoprazole Sodium 40 mg 10/14/17 22:00 10/15/17 21:10 Protonix Iv IVPUSH 40 mg BID [facility] Administration AP; Acute Hypoxic Respiratory Failure s/p Extubation Pneumonia Septic Shock DM with Acidosis ? DKA,?Lactic acidosis Acute on Chronic Renal Failure Paroxysmal Atrial Fibrillation with RVR HTN COPD Ischemic changes left first and 2nd toes GI bleeding s/p transfuison BGM Q6 hr Levemir 10 units daily Increase Novolog coverage On antibiotics Tube feeding off , On D10 W 42ml/hr Chart reviewed Start D10W at 42 ml/hr whenever tube feeding is on hold or discontinued until food intake is adequate. As pt was admitted with acidosis possibly DKA, need to continue to administer long acting Insulin Will f/u
--- NOTE | 2017-10-16 10:25 | PN ---
Progress Note, Physician Chief Complaint: resp failure History of Present Illness: attempts at verbalization, not clearly understandible. shakes head no about cp. + cigs - Current Medication List Current Medications: Active Medications Acetaminophen (Tylenol -) 650 mg PO Q6H PRN PRN Reason: FEVER Last Admin: 10/15/17 23:53 Dose: 650 mg Acetylcysteine (Mucomyst 20 Oral / Inh Use Only*) 200 mg NEB BID [facility] Last Admin: 10/15/17 21:25 Dose: 200 mg Albuterol Sulfate (Ventolin 0.083% Nebulizer Soln -) 1 amp NEB BID [facility] Last Admin: 10/15/17 21:25 Dose: 1 amp Amino Acids (Prosource No Carb Liquid Pkt) 30 ml NGT BID@0800,1730 [facility] Last Admin: 10/16/17 09:07 Dose: Not Given Chlorhexidine Gluconate (Hibiclens For Decolonization -) 1 applic TP HS [facility] Last Admin: 10/15/17 23:53 Dose: 1 applic Diltiazem HCl (Cardizem -) 90 mg PO Q6HPO [facility] Last Admin: 10/16/17 05:11 Dose: 90 mg Dextrose (D10w -) 1,000 mls @ 42 mls/hr IV ASDIR [facility] Last Admin: 10/15/17 18:45 Dose: 42 mls/hr Cefazolin Sodium 1 gm/ (Dextrose) 50 mls @ 100 mls/hr IVPB BID [facility] Last Admin: 10/15/17 21:10 Dose: 100 mls/hr Sodium Chloride (Normal Saline -) 250 mls @ 3,000 mls/hr IV PRN PRN PRN Reason: Hypotension during Dialysis Stop: 10/16/17 09:25 Insulin Aspart (Novolog Vial Sliding Scale -) 1 vial SQ ACHS [facility] PRN Reason: Protocol Insulin Detemir (Levemir Vial) 10 units SQ HS [facility] Last Admin: 10/15/17 23:54 Dose: 10 units Metoprolol Tartrate (Lopressor Injection -) 5 mg IVPUSH Q4H PRN PRN Reason: TACHYCARDIA Last Admin: 10/05/17 17:49 Dose: 5 mg Pantoprazole Sodium (Protonix Iv) 40 mg IVPUSH BID [facility] Last Admin: 10/15/17 21:10 Dose: 40 mg - Objective Vital Signs: Vital Signs Temperature 98.5 F 10/16/17 06:00 Pulse Rate 95 H 10/16/17 08:00 Respiratory Rate 26 H 10/16/17 08:00 Blood Pressure 123/64 10/16/17 08:00 O2 Sat by Pulse Oximetry (%) 92 L 10/15/17 21:00 Constitutional: Yes: No Distress, Calm Eyes: No: Sclera Icterus HENT: No: Nasal Congestion Cardiovascular: Yes: Regular Rate and Rhythm, S1, S2, Other (PMI non diplaced). No: JVD, Gallop, Murmur Respiratory: Yes: CTA Bilaterally, Diminished (R lung field diffusely (but not absent)). No: Accessory Muscle Use, Rales, Wheezes Gastrointestinal: Yes: Normal Bowel Sounds, Soft. No: Tenderness Musculoskeletal: Yes: Other (No kyphosis) Extremities: No: Cold Edema: No Integumentary: No: Jaundice Neurological: Yes: Alert. No: Seizure Psychiatric: No: Agitated Labs: CBC, BMP 10/16/17 05:35 10/16/17 05:35 INR, PTT INR 1.16 (0.82-1.09) H 10/15/17 05:46
[2017-10-16] MEDS: ACETYLCYSTEINE 20% 200MG/ML 30 ML VIAL *FOR ORAL / INH USE ONLY NEB SCH ×2 (10:26→21:24)
[2017-10-16] MEDS: ALBUTEROL SO4 0.083% IH SOL 2.5 MG/3 ML VIAL.NEB. NEB SCH ×2 (10:26→21:24)
[2017-10-16] MEDS ORDERED: PT OWN MED DRAWER 7, Y5N ONE (10:34)
[2017-10-16] MEDS ORDERED: DEXTROSE 5%-WATER - 50 ML IVPB ONE ×2 (10:35→21:27)
--- NOTE | 2017-10-16 10:35 | PN ---
Progress Note (short form) - Note Progress Note: Renal follow up for SHANTA Pt seen and examined in the ICU awake and alert but somewhat confused no sob, chest pain s/p dialysis yesterday making urine Vital Signs Temperature 98.5 F 10/16/17 06:00 Pulse Rate 95 H 10/16/17 08:00 Respiratory Rate 26 H 10/16/17 08:00 Blood Pressure 123/64 10/16/17 08:00 O2 Sat by Pulse Oximetry (%) 92 L 10/15/17 21:00 Intake & Output 10/13/17 10/14/17 10/15/17 10/16/17 23:59 23:59 23:59 23:59 Intake Total 1830 1810 1472 396 Output Total 1500 1000 1100 500 Balance 330 810 372 -104 Weight 61.598 kg 60.464 kg 59.506 kg 55.248 kg NAD RRR, No M/R Dec BS at lung bases soft NT/ND No LE edema, clubbing or cyanosis heels in dressing CBC, BMP 10/16/17 05:35 10/16/17 05:35 Current Medications Acetaminophen (Tylenol -) 650 mg PO Q6H PRN PRN Reason: FEVER Last Admin: 10/15/17 23:53 Dose: 650 mg Acetylcysteine (Mucomyst 20 Oral / Inh Use Only*) 200 mg NEB BID [facility] Last Admin: 10/16/17 10:26 Dose: 200 mg Albuterol Sulfate (Ventolin 0.083% Nebulizer Soln -) 1 amp NEB BID [facility] Last Admin: 10/16/17 10:26 Dose: 1 amp Amino Acids (Prosource No Carb Liquid Pkt) 30 ml NGT BID@0800,1730 [facility] Last Admin: 10/16/17 09:07 Dose: Not Given Chlorhexidine Gluconate (Hibiclens For Decolonization -) 1 applic TP HS [facility] Last Admin: 10/15/17 23:53 Dose: 1 applic Diltiazem HCl (Cardizem -) 90 mg PO Q6HPO [facility] Last Admin: 10/16/17 05:11 Dose: 90 mg Dextrose (D10w -) 1,000 mls @ 42 mls/hr IV ASDIR [facility] Last Admin: 10/15/17 18:45 Dose: 42 mls/hr Cefazolin Sodium 1 gm/ (Dextrose) 50 mls @ 100 mls/hr IVPB BID [facility] Last Admin: 10/15/17 21:10 Dose: 100 mls/hr Sodium Chloride (Normal Saline -) 250 mls @ 3,000 mls/hr IV PRN PRN PRN Reason: Hypotension during Dialysis Stop: 10/16/17 09:25 Insulin Aspart (Novolog Vial Sliding Scale -) 1 vial SQ ACHS [facility] PRN Reason: Protocol Insulin Detemir (Levemir Vial) 10 units SQ HS [facility] Last Admin: 10/15/17 23:54 Dose: 10 units Metoprolol Tartrate (Lopressor Injection -) 5 mg IVPUSH Q4H PRN PRN Reason: TACHYCARDIA Last Admin: 10/05/17 17:49 Dose: 5 mg Pantoprazole Sodium (Protonix Iv) 40 mg IVPUSH BID [facility] Last Admin: 10/15/17 21:10 Dose: 40 mg 76 year old male with a significant past medical history of COPD, GI bleed, diverticulosis, HLD, CVA, intussusception, umbilical hernia, DM, HTN, sinus cancer with excision and polypectomy who presents to the ED, accompanied by , s/p high blood sugar levels earlier today. #SHANTA on CKD likely due to ATN in setting of sepsis #Sepsis/PNA #Metabolic acidosis (now resolved) #Anemia #Hx of Hypertension #DM on Insulin #Hyperphosphatemia s/p dialysis yesterday, no acute indication for treatment today Trend renal function and urine output will continue dialysis as needed s/p PRBC transfusion yesterday, no further melena noted today GI follow up continue PPI continue chest PT for mucus plug continue Abx as per MARTIR Al DO
[2017-10-16] MEDS: CEFAZOLIN 1 GM in DEXTROSE 5%-WATER - 50 ML IVPB SCH ×2 (10:52→22:46)
[2017-10-16] MEDS: PANTOPRAZOLE SODIUM 40 MG VIAL IVPUSH SCH ×2 (10:53→22:47)
--- NOTE | 2017-10-16 12:10 | PN ---
Progress Note, Physician Chief Complaint: Elderly frail man in distress - Current Medication List Current Medications: Active Medications Acetaminophen (Tylenol -) 650 mg PO Q6H PRN PRN Reason: FEVER Last Admin: 10/15/17 23:53 Dose: 650 mg Acetylcysteine (Mucomyst 20 Oral / Inh Use Only*) 200 mg NEB BID [facility] Last Admin: 10/16/17 10:26 Dose: 200 mg Albuterol Sulfate (Ventolin 0.083% Nebulizer Soln -) 1 amp NEB BID [facility] Last Admin: 10/16/17 10:26 Dose: 1 amp Amino Acids (Prosource No Carb Liquid Pkt) 30 ml NGT BID@0800,1730 [facility] Last Admin: 10/16/17 09:07 Dose: Not Given Chlorhexidine Gluconate (Hibiclens For Decolonization -) 1 applic TP HS [facility] Last Admin: 10/15/17 23:53 Dose: 1 applic Diltiazem HCl (Cardizem -) 90 mg PO Q6HPO [facility] Last Admin: 10/16/17 11:17 Dose: 90 mg Dextrose (D10w -) 1,000 mls @ 42 mls/hr IV ASDIR [facility] Last Admin: 10/15/17 18:45 Dose: 42 mls/hr Cefazolin Sodium 1 gm/ (Dextrose) 50 mls @ 100 mls/hr IVPB BID [facility] Last Admin: 10/16/17 10:52 Dose: 100 mls/hr Sodium Chloride (Normal Saline -) 250 mls @ 3,000 mls/hr IV PRN PRN PRN Reason: Hypotension during Dialysis Stop: 10/16/17 09:25 Insulin Aspart (Novolog Vial Sliding Scale -) [facility] Reason: Protocol Last Admin: 10/16/17 11:17 Dose: 7 units Insulin Detemir (Levemir Vial) 10 units SQ [facility] Last Admin: 10/15/17 23:54 Dose: 10 units Metoprolol Tartrate (Lopressor Injection -) 5 mg IVPUSH Q4H PRN PRN Reason: TACHYCARDIA Last Admin: 10/05/17 17:49 Dose: 5 mg Pantoprazole Sodium (Protonix Iv) 40 mg IVPUSH BID [facility] Last Admin: 10/16/17 10:53 Dose: 40 mg - Objective Vital Signs: Vital Signs Temperature 97.8 F 10/16/17 10:00 Pulse Rate 95 H 10/16/17 10:00 Respiratory Rate 27 H 10/16/17 10:00 Blood Pressure 131/52 10/16/17 10:00 O2 Sat by Pulse Oximetry (%) 92 L 10/15/17 21:00 Elderly Frail man in respiratory distress HEENT: High flow canula t place NECK: No JVD No Bruit CHEST /L Crept CVS: S1S2 R ABD: No distentions EXT: Ischemic Toes [employer]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;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 Labs: CBC, BMP 10/16/17 05:35 10/16/17 05:35 INR, PTT INR 1.16 (0.82-1.09) H 10/15/17 05:46 Problem List - Problems (1) DKA (diabetic ketoacidoses) Assessment/Plan: Resolved now on Insulin optimize Glycemic control Code(s): E13.10 - OTH DIABETES MELLITUS WITH KETOACIDOSIS WITHOUT COMA (2) Ischemia of lower extremity Assessment/Plan: Gradually worsening Code(s): I99.8 - OTHER DISORDER OF CIRCULATORY SYSTEM (3) SHANTA (acute kidney injury) Assessment/Plan: Stable F/U BMP Code(s): N17.9 - ACUTE KIDNEY FAILURE, UNSPECIFIED (4) Hospital-acquired pneumonia Assessment/Plan: Completed abx Code(s): J18.9 - PNEUMONIA, UNSPECIFIED ORGANISM (5) Afib Assessment/Plan: Off Ac rate controlled Code(s): I48.91 - UNSPECIFIED ATRIAL FIBRILLATION
--- NOTE | 2017-10-16 14:06 | PN ---
Progress Note, Physician History of Present Illness: doing much better no complaints in room says he is starting to feel better wbc is trending down s/p dialysis - Current Medication List Current Medications: Active Medications Acetaminophen (Tylenol -) 650 mg PO Q6H PRN PRN Reason: FEVER Last Admin: 10/15/17 23:53 Dose: 650 mg Acetylcysteine (Mucomyst 20 Oral / Inh Use Only*) 200 mg NEB BID [facility] Last Admin: 10/16/17 10:26 Dose: 200 mg Albuterol Sulfate (Ventolin 0.083% Nebulizer Soln -) 1 amp NEB BID [facility] Last Admin: 10/16/17 10:26 Dose: 1 amp Amino Acids (Prosource No Carb Liquid Pkt) 30 ml NGT BID@0800,1730 [facility] Last Admin: 10/16/17 09:07 Dose: Not Given Chlorhexidine Gluconate (Hibiclens For Decolonization -) 1 applic TP [facility] Last Admin: 10/15/17 23:53 Dose: 1 applic Diltiazem HCl (Cardizem -) 90 mg PO Q6HPO [facility] Last Admin: 10/16/17 11:17 Dose: 90 mg Dextrose (D10w -) 1,000 mls @ 42 mls/hr IV ASDIR [facility] Last Admin: 10/15/17 18:45 Dose: 42 mls/hr Cefazolin Sodium 1 gm/ (Dextrose) 50 mls @ 100 mls/hr IVPB BID [facility] Last Admin: 10/16/17 10:52 Dose: 100 mls/hr Sodium Chloride (Normal Saline -) 250 mls @ 3,000 mls/hr IV PRN PRN PRN Reason: Hypotension during Dialysis Stop: 10/16/17 09:25 Insulin Aspart (Novolog Vial Sliding Scale -) 1 vial SQ ACHS [facility] PRN Reason: Protocol Last Admin: 10/16/17 11:17 Dose: 7 units Insulin Detemir (Levemir Vial) 10 units SQ [facility] Last Admin: 10/15/17 23:54 Dose: 10 units Metoprolol Tartrate (Lopressor Injection -) 5 mg IVPUSH Q4H PRN PRN Reason: TACHYCARDIA Last Admin: 10/05/17 17:49 Dose: 5 mg Pantoprazole Sodium (Protonix Iv) 40 mg IVPUSH BID [facility] Last Admin: 10/16/17 10:53 Dose: 40 mg - Objective Vital Signs: Vital Signs Temperature 97.8 F 10/16/17 10:00 Pulse Rate 100 H 10/16/17 12:00 Respiratory Rate 32 H 10/16/17 12:00 Blood Pressure 101/85 10/16/17 12:00 O2 Sat by Pulse Oximetry (%) 92 L 10/15/17 21:00 Constitutional: Yes: No Distress, Calm Cardiovascular: Yes: Murmur, S1, S2 Respiratory: Yes: Regular, On Nasal O2, Poor Air Entry, Rhonchi Gastrointestinal: Yes: Normal Bowel Sounds, Soft, Other (ng tube in place) Musculoskeletal: Yes: WNL Extremities: Yes: WNL Neurological: Yes: Alert, Oriented Psychiatric: Yes: Alert, Oriented Labs: CBC, BMP 10/16/17 05:35 10/16/17 05:35 INR, PTT INR 1.16 (0.82-1.09) H 10/15/17 05:46 Assessment/Plan 76 year old male with a significant past medical history of COPD, GI bleed, diverticulosis, HLD, CVA, intussusception, umbilical hernia, DM, HTN, sinus cancer with excision and polypectomy Acute Hypoxic Respiratory Failure Pneumonia Septic Shock Acute on Chronic Renal Failure Lactic Acidosis Diabetic Ketoacidosis improving HTN DM COPD gluteal ulcer discoloration of the toes plan continue abx continue close monitoring monitor wbc close watch patient improving rest as per icu cc time 40 min
--- NOTE | 2017-10-16 15:25 | PN ---
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
[2017-10-16 15:30] LABS: HEMOGLOBIN 7.7 GM/dL (11.7-16.9); MCH 30.1 pg (25.7-33.7); MCHC 33.5 g/dl (32.0-35.9); MEAN CELL VOLUME 89.7 fl (80-96); MEAN PLT VOLUME 8.5 fl (7.5-11.1); PLATELET COUNT 371 K/MM3 (134-434); RBC 2.56 M/mm3 (4.00-5.60); RDW 15.1 % (11.9-15.9); WHITE BLOOD COUNT 16.4 K/mm3 (4.0-10.0)
--- NOTE | 2017-10-16 16:23 | CONS ---
DATE OF CONSULTATION: 10/16/2017 I was asked to evaluate this patient for possible GI bleeding. The patient is an elderly 76-year-old white male with multiple medical problems including hypertension, diabetes, COPD. Apparently he came in with multilobar pneumonia, in DKA, sepsis, septic shock with renal insufficiency and respiratory failure. He was intubated on October 03 and apparently he has had a prolonged hospital stay since October 03 and he was then extubated. The patient has been in the intensive care unit and we were called because he was noted to have a dark bloody stool yesterday and last evening. Apparently the patient had a drop in his hemoglobin and was given 2 units of packed cells. It appears that he did not become hypotensive and there were no signs of instability. In speaking with the medical team it appears that the family wished for conservative but aggressive management without invasion to the patient. So we have kind of been in standby and at this time in speaking with the patient he is disoriented, he thinks it is June 2007 and he is not certain where he is right now, but he says he is in no distress. He thinks he had a bloody bowel movement, but he is not certain if he moved his bowels today. He is not having any nausea or vomiting and does not believe that he has been eating. Other than that, he really cannot give any accurate history now. According to the medical chart, it is noted he has diabetes, underlying hypertension, COPD, renal insufficiency and was started on dialysis. He also has chronic bronchitis, osteoarthritis. Apparently he was a smoker and no history of significant alcohol usage or recent. In discussion with the house staff, it appears he was not on anticoagulants except for a low-dose aspirin prior to admission and during the hospitalization it appears he has been getting Tylenol, multiple antibiotics., currently Kefzol. He has been getting Albuterol, metoprolol, diltiazem, some IV fluid, insulin sliding scale as well as Cardizem, Mucomyst. He had been on those same medications and he has not been on any anticoagulation. Now he supposedly is on Protonix IV at the current time. PHYSICAL EXAM: General: He appears as an elderly gentleman, a little bit confused. HEENT: Very poor dentition. His mouth is crusted over and dry. Neck: Supple. Abdomen: Quite soft though, and the bowel sounds are good. There is actually no tenderness to deep palpation. There is no distension. There are no masses, rebound or guarding. Rectal: Exam reveals a stool that is kind of loose and dark, and strongly guaiac positive. There is no yadira red blood, but it is strongly occultly black positive stool. His lab data is notable in that his hemoglobin looking at the trend, it has kind of been up and down, in that on admission his hemoglobin was 11.9 and then it looks like it drifted down to 7.4 a week later on October 09, but then it looks like it came back up by the up to 9.7 and now 2 days later it has dropped down to 6.1. We know he has gotten 2 units and it looks like he is hanging between 7.9 and 7.6 after the 2 units which is a pretty good response, but from the EMR records it is unclear how his hemoglobin went from 6.9 back to 9.7. It is unclear whether that was a lab error or what, but in terms of his coags he essentially has not had coagulopathy. His white count also has been quite elevated, it is now down to 14,000 and his platelets have been over 350,000 for the majority of the hospitalization and his chemistries note findings most likely consistent with renal disease with a creatinine of 2.1 and a BUN of 42. So it is my impression that this patient is a 76-year-old gentleman with multiple underlying medical issues who has had a prolonged hospitalization. It seems like he came in with DKA, multilobar pneumonia, septic shock. He has been in the ICU. He has been extubated, now intubated and has findings of what appears to be a hemodynamically insignificant slow, but continued GI oozing. There was notation that he has had prior endoscopy and colonoscopy a couple of months ago by Dr. Erickson with finding of a cecal AVM and based on his history, it would not be unlikely that he has multiple AVM's of the small bowel that could be oozing, especially in a patient whose platelets may not be working from underlying renal insufficiency. So for now I would agree with observing. I would even consider starting a clear liquid diet and advancing. He has gotten 2 units of blood and seems to have responded. I would probably check his hemoglobin once or twice daily and transfuse as needed. I would continue the proton pump inhibition. I think once his underlying medical issues resolve or improve, then his bleeding will certainly stop on its own. If he has aggressive outward bleeding and hemodynamic instability, then we could try to intervene if the family is in agreement with that, but it appears at the present time the family is in favor of a more conservative observational approach. I would agree with that in this patient who seems to have some baseline respiratory issues. We will continue to be available to aid and manage this patient. XIMENA WHITE M.D. PREET/[id number]
[2017-10-16] MEDS: DEXTROSE 10%-WATER - 1,000 ML IV SCH (17:48)
[2017-10-16] MEDS: CHLORHEXIDINE GLUCONATE 4% CLEANSER FOR DECOLONIZATION TP SCH (22:46)
[2017-10-16] MEDS: INSULIN (LEVEMIR) 100 UNITS/ML UNITS SQ SCH (22:46)
[2017-10-17] MEDS: dilTIAZem HCL 30 MG TABLET (FP) PO SCH ×4 (00:55→18:02)
[2017-10-17] MEDS: DEXTROSE 10%-WATER - 1,000 ML IV SCH ×3 (00:55→22:20)
[2017-10-17 05:51] LABS: HEMATOCRIT 24.3 % (35.4-49); HEMOGLOBIN 8.4 GM/dL (11.7-16.9); MCH 31.1 pg (25.7-33.7); MCHC 34.5 g/dl (32.0-35.9); MEAN CELL VOLUME 90.2 fl (80-96); MEAN PLT VOLUME 8.1 fl (7.5-11.1); PLATELET COUNT 459 K/MM3 (134-434); RDW 15.6 % (11.9-15.9); WHITE BLOOD COUNT 17.5 K/mm3 (4.0-10.0)
[2017-10-17] MEDS ORDERED: DEXTROSE 50%-WATER 25 GM/50 ML DISP.SYRIN ONE (06:11)
[2017-10-17 06:23] LABS: ANION GAP 12 (8-16); BLOOD UREA NITROGEN 52 mg/dL (7-18); CALCIUM 7.8 mg/dL (8.5-10.1); CHLORIDE 104 mmol/L (98-107); CO2 28 mmol/L (21-32); PHOSPHOROUS 4.6 mg/dL (2.5-4.9); SODIUM 144 mmol/L (136-145)
[2017-10-17 06:32] LABS: GLUCOSE,RANDOM 34 mg/dL (74-106)
[2017-10-17] MEDS ORDERED: DEXTROSE 50%-WATER - 25 GM/50 ML VIAL IVPUSH ONE ×2 (06:33→06:34)
[2017-10-17] MEDS: INSULIN SLIDING SCALE (NOVOLOG) 1 VIAL SQ SCH ×3 (06:35→16:23)
--- NOTE | 2017-10-17 07:10 | PN ---
Progress Note (short form) - Note Progress Note: Seen and examined in the ICU Weaned Fio2 to NC CXR w/ cont total R opacification Cont melena w/ stable Hgb seen by GI, no intervention per family wishes Patient pulled feeding tube and refusing placement, placed on clears for comfort hypoglycemic this AM required dextrose bolus Current Medications Acetaminophen (Tylenol -) 650 mg PO Q6H PRN PRN Reason: FEVER Last Admin: 10/15/17 23:53 Dose: 650 mg Acetylcysteine (Mucomyst 20 Oral / Inh Use Only*) 200 mg NEB BID [facility] Last Admin: 10/16/17 21:24 Dose: 200 mg Albuterol Sulfate (Ventolin 0.083% Nebulizer Soln -) 1 amp NEB BID [facility] Last Admin: 10/16/17 21:24 Dose: 1 amp Amino Acids (Prosource No Carb Liquid Pkt) 30 ml NGT BID@0800,1730 [facility] Last Admin: 10/16/17 17:46 Dose: Not Given Chlorhexidine Gluconate (Hibiclens For Decolonization -) 1 applic TP [facility] Last Admin: 10/16/17 22:46 Dose: 1 applic Dextrose (D50w (Vial) -) 25 gm IVPUSH NOW ONE Stop: 10/17/17 06:34 Dextrose (D50w (Vial) -) 25 gm IVPUSH NOW ONE Stop: 10/17/17 06:35 Diltiazem HCl (Cardizem -) 90 mg PO Q6HPO [facility] Last Admin: 10/17/17 06:34 Dose: Not Given Dextrose (D10w -) 1,000 mls @ 42 mls/hr IV ASDIR [facility] Last Admin: 10/17/17 00:55 Dose: Not Given Cefazolin Sodium 1 gm/ (Dextrose) 50 mls @ 100 mls/hr IVPB BID [facility] Last Admin: 10/16/17 22:46 Dose: 100 mls/hr Sodium Chloride (Normal Saline -) 250 mls @ 3,000 mls/hr IV PRN PRN PRN Reason: Hypotension during Dialysis Stop: 10/16/17 09:25 Insulin Aspart (Novolog Vial Sliding Scale -) 1 vial SQ ACHS [facility] PRN Reason: Protocol Last Admin: 10/17/17 06:35 Dose: Not Given Insulin Detemir (Levemir Vial) 10 units SQ [facility] Last Admin: 10/16/17 22:46 Dose: 10 units Metoprolol Tartrate (Lopressor Injection -) 5 mg IVPUSH Q4H PRN PRN Reason: TACHYCARDIA Last Admin: 10/05/17 17:49 Dose: 5 mg Pantoprazole Sodium (Protonix Iv) 40 mg IVPUSH BID [facility] Last Admin: 10/16/17 22:47 Dose: 40 mg Vital Signs Period Temp Pulse Resp BP Sys/Sy Pulse Ox Last 24 Hr 97 F-98.9 F 75-114 12-32 98-160/46-90 92-95 Intake & Output 10/14/17 10/15/17 10/16/17 10/17/17 23:59 23:59 23:59 23:59 Intake Total 1810 1472 1052 300 Output Total 1000 1100 1300 Balance 810 372 -248 300 Weight 60.464 kg 59.506 kg 55.248 kg 54.204 kg General: cachetic frail man in bed w/o distress HEENT: PERRL CV: RRR Pulm: absent on right, few insp crackles on left Abd: SNTND Ext: no edema, necrotic left toes Neuro: awake, alert and following commands CBC, BMP 10/17/17 05:25 10/17/17 06:00 CXR: 10/17 pending CXR: 10/16 complete right sided opacification c/f mucus plugging ASSESSMENT AND PLAN: Acute Hypoxic Respiratory Failure Pneumonia Septic Shock Acute on Chronic Renal Failure Lactic Acidosis Diabetic Ketoacidosis improving Paroxysmal Atrial Fibrillation with RVR HTN DM COPD r/o Critical Illness Myopathy/Polyneuropathy Left foot hypoperfusion likely due to pressors and underlying vascular insufficiency - GI notified about melena no intervention per family - advance diet as tolerated - Normal transfusion thresholds: Hgb >7.0, Plt >50 if actively bleeding - CPT given right sided opacity likely 2/2 mucus plugging - O2 for sat >90% - Incentive anastasiya - continue antibiotics per ID - HD per renal - monitor urine output, creatinine - monitor I/Os - glucose control - rate control - anticoagulation on hold 2/2 GIB - taper FiO2 to keep SpO2 >90% - Hold enteral feeds given GIB, restart per GI - DVT/GI prophylaxis - DNR/DNI, need to clarify GOC with patient and , currently refusing aggressive measures, focus on comfort would be appropriate Vladimir HO Pulm/CCM CCT: 36m
[2017-10-17] MEDS ORDERED: DEXTROSE 5%-WATER - 50 ML IVPB ONE (07:19)
[2017-10-17] MEDS ORDERED: ceFAZolin SODIUM 1 GM VIAL ONE (07:19)
[2017-10-17] MEDS: AMINO ACIDS/PROTEIN HYDROLYS 30 ML LIQUID.PKT NGT SCH ×2 (07:51→17:30)
--- NOTE | 2017-10-17 08:51 | PN ---
Progress Note, Physician Chief Complaint: resp failure History of Present Illness: no sob (laying flat), cp. poor intelligibility + cigs - Current Medication List Current Medications: Active Medications Acetaminophen (Tylenol -) 650 mg PO Q6H PRN PRN Reason: FEVER Last Admin: 10/15/17 23:53 Dose: 650 mg Acetylcysteine (Mucomyst 20 Oral / Inh Use Only*) 200 mg NEB BID [facility] Last Admin: 10/16/17 21:24 Dose: 200 mg Albuterol Sulfate (Ventolin 0.083% Nebulizer Soln -) 1 amp NEB BID [facility] Last Admin: 10/16/17 21:24 Dose: 1 amp Amino Acids (Prosource No Carb Liquid Pkt) 30 ml NGT BID@0800,1730 [facility] Last Admin: 10/17/17 07:51 Dose: Not Given Chlorhexidine Gluconate (Hibiclens For Decolonization -) 1 applic TP [facility] Last Admin: 10/16/17 22:46 Dose: 1 applic Diltiazem HCl (Cardizem -) 90 mg PO Q6HPO [facility] Last Admin: 10/17/17 06:34 Dose: Not Given Dextrose (D10w -) 1,000 mls @ 42 mls/hr IV ASDIR [facility] Last Admin: 10/17/17 07:16 Dose: 42 mls/hr Cefazolin Sodium 1 gm/ (Dextrose) 50 mls @ 100 mls/hr IVPB BID [facility] Last Admin: 10/16/17 22:46 Dose: 100 mls/hr Sodium Chloride (Normal Saline -) 250 mls @ 3,000 mls/hr IV PRN PRN PRN Reason: Hypotension during Dialysis Stop: 10/16/17 09:25 Insulin Aspart (Novolog Vial Sliding Scale -) 1 vial SQ ACHS [facility] PRN Reason: Protocol Last Admin: 10/17/17 06:35 Dose: Not Given Insulin Detemir (Levemir Vial) 10 units SQ [facility] Last Admin: 10/16/17 22:46 Dose: 10 units Metoprolol Tartrate (Lopressor Injection -) 5 mg IVPUSH Q4H PRN PRN Reason: TACHYCARDIA Last Admin: 10/05/17 17:49 Dose: 5 mg Pantoprazole Sodium (Protonix Iv) 40 mg IVPUSH BID [facility] Last Admin: 10/16/17 22:47 Dose: 40 mg - Objective Vital Signs: Vital Signs Temperature 98.2 F 10/17/17 06:00 Pulse Rate 78 10/17/17 07:15 Respiratory Rate 24 10/17/17 07:15 Blood Pressure 151/58 10/17/17 07:15 O2 Sat by Pulse Oximetry (%) 93 L 10/17/17 07:47 Constitutional: Yes: No Distress, Calm Eyes: No: Sclera Icterus HENT: No: Nasal Congestion Cardiovascular: Yes: Regular Rate and Rhythm, Murmur (3/6 EMMA rusb, no change), S1, S2, Other (PMI non diplaced). No: Gallop Respiratory: Yes: CTA Bilaterally, Diminished (R lung). No: Accessory Muscle Use, Rales, Wheezes Gastrointestinal: Yes: Normal Bowel Sounds, Soft. No: Tenderness Musculoskeletal: Yes: Other (No kyphosis) Extremities: No: Cold Edema: No Peripheral Pulses: Right Dorsalis Pedis: 0 Integumentary: No: Jaundice Neurological: Yes: Alert. No: Seizure Psychiatric: No: Agitated Labs: CBC, BMP 10/17/17 05:25 10/17/17 06:00 INR, PTT INR 1.16 (0.82-1.09) H 10/15/17 05:46 Assessment/Plan Echo 06/2017: mod lvh. nl lv fn. nl rv size/fn. 1+ lae. mod-sev mac with mod ms. 1+ mr. nl rvsp. 1+ ao dilation (no or AI) tele: NSR, sinus tach to 120s-140s A/P 76 yo with pmhx of htn, hl, pad, afib (not on AC due to GIB), cva (no residual deficits), copd, dm, mgus, esthesioneuroblastoma treated with radiation therapy , chronic anemia s/p recent GIB admitted with dka, sepsis, resp failure. Hospital course now complicated by episode of afib with rvr afib - not previously a candidate for AC b/c of prior hx of GIB. remains anemic with melena here as well. - s/p IV amio. started po dilt 10/05. now back in sr. hr controlled. - off Amio, remains in sinus. BPs soft but tolerating diltiazem hi dose (90mg q6H)--continue same for now - hgb drifted down once ASA resumed--now d/c'd. not a candidate for AC at this time as risks of serious bleeding are > benefits - remains in SR, bp thus far tolerating diltiazem at present dose mitral stenosis: - aggressive control of afib to prevent tachycardia-->CHF as doing - defer amio for now, may have to reconsider if recurrent rapid AF despite sepsis/PNA complete resolution PNA with septic shock, resp failure - off phenylephrine as of AM 10/11, hemodynamically stable currently - cont ICU monitoring - extubated 10/12, remains stable resp status - white out R lung on cxr--per crit care anemia: - ongoing UGIB here with stool guaiac + (iker hgb 6.1) - s/p PRBCs - counts stable htn - home meds changed to diltiazem here for PAF rate control - bp stable cva/pad - con't statin. - per pmd, previously not a candidate for asa due to recent gib and anemia. hgb drifting down on asa here, held again mild asc ao dilation - can consider switching to beta car once resp issues resolve. SHANTA - renal following, no sig improvement --> initiated HD 10/07.
--- NOTE | 2017-10-17 09:08 | PN ---
Progress Note (short form) - Note Progress Note: Renal follow up for SHANTA Pt seen and examined in the ICU awake and alert no acute complaints no sob, chest pain, abd pain making urine Vital Signs Temperature 98.2 F 10/17/17 06:00 Pulse Rate 78 10/17/17 07:15 Respiratory Rate 24 10/17/17 07:15 Blood Pressure 151/58 10/17/17 07:15 O2 Sat by Pulse Oximetry (%) 93 L 10/17/17 07:47 Intake & Output 10/14/17 10/15/17 10/16/17 10/17/17 23:59 23:59 23:59 23:59 Intake Total 1810 1472 1052 300 Output Total 1000 1100 1300 450 Balance 810 372 -248 -150 Weight 60.464 kg 59.506 kg 55.248 kg 54.204 kg NAD RRR, No M/R Dec BS at lung bases soft NT/ND No LE edema, clubbing or cyanosis heels in dressing CBC, BMP 10/17/17 05:25 10/17/17 06:00 Current Medications Acetaminophen (Tylenol -) 650 mg PO Q6H PRN PRN Reason: FEVER Last Admin: 10/15/17 23:53 Dose: 650 mg Acetylcysteine (Mucomyst 20 Oral / Inh Use Only*) 200 mg NEB BID [facility] Last Admin: 10/16/17 21:24 Dose: 200 mg Albuterol Sulfate (Ventolin 0.083% Nebulizer Soln -) 1 amp NEB BID [facility] Last Admin: 10/16/17 21:24 Dose: 1 amp Amino Acids (Prosource No Carb Liquid Pkt) 30 ml NGT BID@0800,1730 [facility] Last Admin: 10/17/17 07:51 Dose: Not Given Chlorhexidine Gluconate (Hibiclens For Decolonization -) 1 applic TP HS [facility] Last Admin: 10/16/17 22:46 Dose: 1 applic Diltiazem HCl (Cardizem -) 90 mg PO Q6HPO [facility] Last Admin: 10/17/17 06:34 Dose: Not Given Dextrose (D10w -) 1,000 mls @ 42 mls/hr IV ASDIR [facility] Last Admin: 10/17/17 07:16 Dose: 42 mls/hr Cefazolin Sodium 1 gm/ (Dextrose) 50 mls @ 100 mls/hr IVPB BID [facility] Last Admin: 10/16/17 22:46 Dose: 100 mls/hr Sodium Chloride (Normal Saline -) 250 mls @ 3,000 mls/hr IV PRN PRN PRN Reason: Hypotension during Dialysis Stop: 10/16/17 09:25 Insulin Aspart (Novolog Vial Sliding Scale -) 1 vial SQ ACHS [facility] PRN Reason: Protocol Last Admin: 10/17/17 06:35 Dose: Not Given Insulin Detemir (Levemir Vial) 10 units SQ HS [facility] Last Admin: 10/16/17 22:46 Dose: 10 units Metoprolol Tartrate (Lopressor Injection -) 5 mg IVPUSH Q4H PRN PRN Reason: TACHYCARDIA Last Admin: 10/05/17 17:49 Dose: 5 mg Pantoprazole Sodium (Protonix Iv) 40 mg IVPUSH BID [facility] Last Admin: 10/16/17 22:47 Dose: 40 mg 76 year old male with a significant past medical history of COPD, GI bleed, diverticulosis, HLD, CVA, intussusception, umbilical hernia, DM, HTN, sinus cancer with excision and polypectomy who presents to the ED, accompanied by , s/p high blood sugar levels earlier today. #SHANTA on CKD likely due to ATN in setting of sepsis #Sepsis/PNA #Metabolic acidosis (now resolved) #Anemia #Hx of Hypertension #DM on Insulin #Hyperphosphatemia No acute indication for dialysis today, will reaccess daily BUN/Cr still uptrending after dialysis Urine output is good continue supportive care Trend H/H on PPI Continue Abx as per MARTIR Al DO
[2017-10-17] MEDS: CEFAZOLIN 1 GM in DEXTROSE 5%-WATER - 50 ML IVPB SCH (09:19)
[2017-10-17] MEDS: PANTOPRAZOLE SODIUM 40 MG VIAL IVPUSH SCH ×2 (09:20→22:21)
[2017-10-17] MEDS: ACETYLCYSTEINE 20% 200MG/ML 4 ML VIAL *FOR ORAL / INH USE ONLY NEB SCH ×2 (10:30→21:00)
[2017-10-17] MEDS: ALBUTEROL SO4 0.083% IH SOL 2.5 MG/3 ML VIAL.NEB. NEB SCH ×2 (10:30→21:00)
--- NOTE | 2017-10-17 12:38 | PN ---
Progress Note, Physician History of Present Illness: stable in room no new issues icu planning to about goals of care - Current Medication List Current Medications: Active Medications Acetaminophen (Tylenol -) 650 mg PO Q6H PRN PRN Reason: FEVER Last Admin: 10/15/17 23:53 Dose: 650 mg Acetylcysteine (Mucomyst 20 Oral / Inh Use Only*) 200 mg NEB BID [facility] Last Admin: 10/17/17 10:30 Dose: 200 mg Albuterol Sulfate (Ventolin 0.083% Nebulizer Soln -) 1 amp NEB BID [facility] Last Admin: 10/17/17 10:30 Dose: 1 amp Amino Acids (Prosource No Carb Liquid Pkt) 30 ml NGT BID@0800,1730 [facility] Last Admin: 10/17/17 07:51 Dose: Not Given Chlorhexidine Gluconate (Hibiclens For Decolonization -) 1 applic TP [facility] Last Admin: 10/16/17 22:46 Dose: 1 applic Diltiazem HCl (Cardizem -) 90 mg PO Q6HPO [facility] Last Admin: 10/17/17 06:34 Dose: Not Given Dextrose (D10w -) 1,000 mls @ 42 mls/hr IV ASDIR [facility] Last Admin: 10/17/17 07:16 Dose: 42 mls/hr Cefazolin Sodium 1 gm/ (Dextrose) 50 mls @ 100 mls/hr IVPB BID [facility] Last Admin: 10/17/17 09:19 Dose: 100 mls/hr Sodium Chloride (Normal Saline -) 250 mls @ 3,000 mls/hr IV PRN PRN PRN Reason: Hypotension during Dialysis Stop: 10/16/17 09:25 Insulin Aspart (Novolog Vial Sliding Scale -) 1 vial SQ ACHS [facility] PRN Reason: Protocol Last Admin: 10/17/17 12:17 Dose: Not Given Insulin Detemir (Levemir Vial) 10 units SQ [facility] Last Admin: 10/16/17 22:46 Dose: 10 units Metoprolol Tartrate (Lopressor Injection -) 5 mg IVPUSH Q4H PRN PRN Reason: TACHYCARDIA Last Admin: 10/05/17 17:49 Dose: 5 mg Pantoprazole Sodium (Protonix Iv) 40 mg IVPUSH BID [facility] Last Admin: 10/17/17 09:20 Dose: 40 mg - Objective Vital Signs: Vital Signs Temperature 98.2 F 10/17/17 06:00 Pulse Rate 82 10/17/17 12:00 Respiratory Rate 20 10/17/17 12:00 Blood Pressure 148/48 10/17/17 12:00 O2 Sat by Pulse Oximetry (%) 93 L 10/17/17 07:47 Constitutional: Yes: No Distress, Calm Cardiovascular: Yes: S1, S2 Respiratory: Yes: Regular, CTA Bilaterally Gastrointestinal: Yes: Normal Bowel Sounds, Soft Musculoskeletal: Yes: Other Extremities: Yes: Other Neurological: Yes: Alert Psychiatric: Yes: Alert Labs: CBC, BMP 10/17/17 05:25 10/17/17 06:00 INR, PTT INR 1.16 (0.82-1.09) H 10/15/17 05:46 Assessment/Plan 76 year old male with a significant past medical history of COPD, GI bleed, diverticulosis, HLD, CVA, intussusception, umbilical hernia, DM, HTN, sinus cancer with excision and polypectomy Acute Hypoxic Respiratory Failure Pneumonia Septic Shock Acute on Chronic Renal Failure Lactic Acidosis Diabetic Ketoacidosis improving HTN DM COPD gluteal ulcer discoloration of the toes wbc fluctuating plan continue abx continue close monitoring monitor wbc close watch stable rest as per icu cc time 40 min
--- NOTE | 2017-10-17 15:01 | PN ---
Progress Note (short form) - Note Progress Note: Advanced Directives Note: Today had opportunity to speak with Mr Chen in the presence and with support of his . This morning pt is fully alert and orient with a much improved mental status from recent. We discussed his current medical condition, his recent improvements and the concerns for possible deteriorations. We discussed code status, and other forms of life sustaining measures. He has recently required intubation/MV, renal replacement, and vasopressor support. I expressed my concern that should he deteriorate aggressive measure may not serve to improve his overall condition. Pt had previously been made DNR/DNI and this was confirmed. Today he made clear to this ad writer and his that he is willing to continue current therapies in hope that his condition improves but that should he deteriorate he would not want aggressive life sustaining measures, medical investigations, and prolonged hospitatlizaton. Should his condition deteriorate he asked that we change our focus from medical optimization to comfort and time spent with family. All questions were answered. in full agreement and understanding of pt request. Roberto Campbell [facility] [phone]
--- NOTE | 2017-10-17 16:06 | PN ---
Progress Note, Physician Chief Complaint: Elderly frail man in distress - Current Medication List Current Medications: Active Medications Acetaminophen (Tylenol -) 650 mg PO Q6H PRN PRN Reason: FEVER Last Admin: 10/15/17 23:53 Dose: 650 mg Acetylcysteine (Mucomyst 20 Oral / Inh Use Only*) 200 mg NEB BID [facility] Last Admin: 10/17/17 10:30 Dose: 200 mg Albuterol Sulfate (Ventolin 0.083% Nebulizer Soln -) 1 amp NEB BID [facility] Last Admin: 10/17/17 10:30 Dose: 1 amp Amino Acids (Prosource No Carb Liquid Pkt) 30 ml NGT BID@0800,1730 [facility] Last Admin: 10/17/17 07:51 Dose: Not Given Chlorhexidine Gluconate (Hibiclens For Decolonization -) 1 applic TP HS [facility] Last Admin: 10/16/17 22:46 Dose: 1 applic Diltiazem HCl (Cardizem -) 90 mg PO Q6HPO [facility] Last Admin: 10/17/17 14:36 Dose: Not Given Dextrose (D10w -) 1,000 mls @ 42 mls/hr IV ASDIR [facility] Last Admin: 10/17/17 07:16 Dose: 42 mls/hr Cefazolin Sodium 1 gm/ (Dextrose) 50 mls @ 100 mls/hr IVPB BID [facility] Last Admin: 10/17/17 09:19 Dose: 100 mls/hr Sodium Chloride (Normal Saline -) 250 mls @ 3,000 mls/hr IV PRN PRN PRN Reason: Hypotension during Dialysis Stop: 10/16/17 09:25 Insulin Aspart (Novolog Vial Sliding Scale -) 1 vial SQ [facility] PRN Reason: Protocol Last Admin: 10/17/17 12:17 Dose: Not Given Insulin Detemir (Levemir Vial) 10 units SQ [facility] Last Admin: 10/16/17 22:46 Dose: 10 units Metoprolol Tartrate (Lopressor Injection -) 5 mg IVPUSH Q4H PRN PRN Reason: TACHYCARDIA Last Admin: 10/05/17 17:49 Dose: 5 mg Pantoprazole Sodium (Protonix Iv) 40 mg IVPUSH BID [facility] Last Admin: 10/17/17 09:20 Dose: 40 mg - Objective Vital Signs: Vital Signs Temperature 97.8 F 10/17/17 14:00 Pulse Rate 90 10/17/17 16:00 Respiratory Rate 18 10/17/17 16:00 Blood Pressure 113/81 10/17/17 16:00 O2 Sat by Pulse Oximetry (%) 93 L 10/17/17 07:47 Elderly Frail man in respiratory distress HEENT: High flow canula t place NECK: No JVD No Bruit CHEST /L Crept CVS: S1S2 R ABD: No distentions EXT: Ischemic Toes [employer]AD [employer]ACH[employer]: Confused no interva;l changes Labs: CBC, BMP 10/17/17 05:25 10/17/17 06:00 INR, PTT INR 1.16 (0.82-1.09) H 10/15/17 05:46 Problem List - Problems (1) DKA (diabetic ketoacidoses) Assessment/Plan: Resolved now on Insulin optimize Glycemic control Code(s): E13.10 - OTH DIABETES MELLITUS WITH KETOACIDOSIS WITHOUT COMA (2) Ischemia of lower extremity Assessment/Plan: Gradually worsening Code(s): I99.8 - OTHER DISORDER OF CIRCULATORY SYSTEM (3) SHANTA (acute kidney injury) Assessment/Plan: Stable F/U BMP Code(s): N17.9 - ACUTE KIDNEY FAILURE, UNSPECIFIED (4) Hospital-acquired pneumonia Assessment/Plan: Completed abx Code(s): J18.9 - PNEUMONIA, UNSPECIFIED ORGANISM (5) Afib Assessment/Plan: Off Ac rate controlled Code(s): I48.91 - UNSPECIFIED ATRIAL FIBRILLATION (6) Hypoglycemia Assessment/Plan: resolved Code(s): E16.2 - HYPOGLYCEMIA, UNSPECIFIED
[2017-10-17] MEDS: INSULIN (LEVEMIR) 100 UNITS/ML UNITS SQ SCH (22:20)
[2017-10-17] MEDS: CHLORHEXIDINE GLUCONATE 4% CLEANSER FOR DECOLONIZATION TP SCH (22:20)
[2017-10-18] MEDS: dilTIAZem HCL 30 MG TABLET (FP) PO SCH ×4 (00:37→17:33)
[2017-10-18 05:43] LABS: HEMATOCRIT 22.4 % (35.4-49); HEMOGLOBIN 7.6 GM/dL (11.7-16.9); MCH 30.7 pg (25.7-33.7); MEAN CELL VOLUME 90.1 fl (80-96); MEAN PLT VOLUME 8.2 fl (7.5-11.1); PLATELET COUNT 432 K/MM3 (134-434); RBC 2.48 M/mm3 (4.00-5.60); RDW 15.3 % (11.9-15.9); WHITE BLOOD COUNT 13.3 K/mm3 (4.0-10.0)
[2017-10-18] MEDS ORDERED: DEXTROSE 50%-WATER 25 GM/50 ML DISP.SYRIN ONE (06:03)
[2017-10-18 06:09] LABS: ANION GAP 10 (8-16); BLOOD UREA NITROGEN 62 mg/dL (7-18); CALCIUM 7.7 mg/dL (8.5-10.1); CHLORIDE 103 mmol/L (98-107); CO2 27 mmol/L (21-32); CREATININE 3.4 mg/dL (0.7-1.3); PHOSPHOROUS 5.1 mg/dL (2.5-4.9); POTASSIUM 3.8 mmol/L (3.5-5.1); SODIUM 140 mmol/L (136-145)
[2017-10-18 06:19] LABS: GLUCOSE,RANDOM 33 mg/dL (74-106)
[2017-10-18] MEDS ORDERED: DEXTROSE 50%-WATER - 25 GM/50 ML VIAL IVPUSH ONE (07:00)
[2017-10-18] MEDS: DEXTROSE 10%-WATER - 1,000 ML IV SCH (09:06)
--- NOTE | 2017-10-18 09:06 | PN ---
Progress Note, Physician Chief Complaint: resp failure History of Present Illness: alert, communicative and intelligible denies cp, sob, palpit, leg swelling - Current Medication List Current Medications: Active Medications Acetaminophen (Tylenol -) 650 mg PO Q6H PRN PRN Reason: FEVER Last Admin: 10/15/17 23:53 Dose: 650 mg Acetylcysteine (Mucomyst 20 Oral / Inh Use Only*) 200 mg NEB BID [facility] Last Admin: 10/17/17 21:00 Dose: 200 mg Albuterol Sulfate (Ventolin 0.083% Nebulizer Soln -) 1 amp NEB BID [facility] Last Admin: 10/17/17 21:00 Dose: 1 amp Amino Acids (Prosource No Carb Liquid Pkt) 30 ml NGT BID@0800,1730 [facility] Last Admin: 10/17/17 17:30 Dose: 30 ml Chlorhexidine Gluconate (Hibiclens For Decolonization -) 1 applic TP [facility] Last Admin: 10/17/17 22:20 Dose: 1 applic Diltiazem HCl (Cardizem -) 90 mg PO Q6HPO [facility] Last Admin: 10/18/17 06:23 Dose: 90 mg Dextrose (D10w -) 1,000 mls @ 42 mls/hr IV ASDIR [facility] Last Admin: 10/17/17 22:20 Dose: 42 mls/hr Sodium Chloride (Normal Saline -) 250 mls @ 3,000 mls/hr IV PRN PRN PRN Reason: Hypotension during Dialysis Stop: 10/16/17 09:25 Insulin Detemir (Levemir Vial) 10 units SQ HS [facility] Last Admin: 10/17/17 22:20 Dose: 10 units Metoprolol Tartrate (Lopressor Injection -) 5 mg IVPUSH Q4H PRN PRN Reason: TACHYCARDIA Last Admin: 10/05/17 17:49 Dose: 5 mg Pantoprazole Sodium (Protonix Iv) 40 mg IVPUSH BID [facility] Last Admin: 10/17/17 22:21 Dose: 40 mg - Objective Vital Signs: Vital Signs Temperature 97.6 F 10/18/17 06:00 Pulse Rate 76 10/18/17 08:00 Respiratory Rate 23 10/18/17 08:00 Blood Pressure 143/54 10/18/17 08:00 O2 Sat by Pulse Oximetry (%) 99 10/18/17 08:00 Constitutional: Yes: Well Nourished, No Distress, Calm Cardiovascular: Yes: Regular Rate and Rhythm, S1, S2. No: Gallop, Murmur Respiratory: Yes: Regular, CTA Bilaterally, Diminished (R side). No: Rales, Wheezes Extremities: No: Cold Edema: No Neurological: Yes: Alert. No: Seizure Psychiatric: No: Agitated Labs: CBC, BMP 10/18/17 05:30 10/18/17 05:30 INR, PTT INR 1.16 (0.82-1.09) H 10/15/17 05:46 Assessment/Plan Echo 06/2017: mod lvh. nl lv fn. nl rv size/fn. 1+ lae. mod-sev mac with mod ms. 1+ mr. nl rvsp. 1+ ao dilation (no or AI) tele: NSR, sinus tach to 120s-140s A/P 76 yo with pmhx of htn, hl, pad, afib (not on AC due to GIB), cva (no residual deficits), copd, dm, mgus, esthesioneuroblastoma treated with radiation therapy , chronic anemia s/p recent GIB admitted with dka, sepsis, resp failure. Hospital course now complicated by episode of afib with rvr afib - not previously a candidate for AC b/c of prior hx of GIB. remains anemic with melena here as well. - s/p IV amio. started po dilt 10/05. now back in sr. hr controlled. - off Amio, remains in sinus. BPs soft but tolerating diltiazem hi dose (90mg q6H)--continue same for now - change to cardizem CD regimen once bp's clearly out of the ngo as far as hypotension - hgb drifted down once ASA resumed--now d/c'd. not a candidate for AC at this time as risks of serious bleeding are > benefits - remains in SR, bp thus far tolerating diltiazem at present dose mitral stenosis: - aggressive control of afib to prevent tachycardia-->CHF as doing - defer amio for now, may have to reconsider if recurrent rapid AF despite sepsis/PNA complete resolution PNA with septic shock, resp failure - off phenylephrine as of AM 10/11, hemodynamically stable currently - cont ICU monitoring - extubated 10/12, remains stable resp status - white out R lung on cxr--per crit care anemia, GI bleeding: - ongoing UGIB here with stool guaiac + (iker hgb 6.1) - s/p PRBCs - counts stable htn - home meds changed to diltiazem here for PAF rate control - bp stable cva/pad - con't statin. - per pmd, previously not a candidate for asa due to recent gib and anemia. hgb drifting down on asa here, held again mild asc ao dilation - can consider switching to beta car once resp issues resolve. SHANTA - renal following, no sig improvement --> initiated HD 10/07.
--- NOTE | 2017-10-18 09:19 | PN ---
Physical Exam: SUBJECTIVE: Patient seen and examined in ICU. Patient is talking today, protecting airway. Denies chest pain, fevers, chills. States that he feels much better. Had another episode of melena after rounds this morning. OBJECTIVE: Vital Signs Period Temp Pulse Resp BP Sys/Sy Pulse Ox Last 24 Hr 97.6 F-98.2 F 69-95 18-25 101-148/43-92 97-99 GENERAL: The patient is awake, alert, and fully oriented, in no acute distress. HEAD: Normal with no signs of trauma. EYES: PERRL, extraocular movements intact, sclera anicteric, conjunctiva clear. NECK: Trachea midline, full range of motion, supple. LUNGS: Breath sounds equal, clear to auscultation bilaterally HEART: Regular rate and rhythm, S1, S2 with 2/6 systolic murmur ABDOMEN: Soft, nontender, nondistended, normoactive bowel sounds, no guarding, no rebound. NEUROLOGICAL: Cranial nerves II through XII grossly intact. Normal speech, gait not observed. Laboratory Results - last 24 hr 10/14/17 10/14/17 10/16/17 20:50 23:14 22:23 WBC RBC Hgb Hct MCV MCH MCHC RDW Plt Count MPV Sodium Potassium Chloride Carbon Dioxide Anion Gap BUN Creatinine POC Glucometer [phone] Random Glucose Calcium Phosphorus Magnesium Blood Type O NEGATIVE Antibody Screen Negative Crossmatch See Detail 10/17/17 10/17/17 10/17/17 06:07 07:30 12:12 WBC RBC Hgb Hct MCV MCH MCHC RDW Plt Count MPV Sodium Potassium Chloride Carbon Dioxide Anion Gap BUN Creatinine POC Glucometer < 50 127.03192 [phone] Random Glucose Calcium Phosphorus Magnesium Blood Type Antibody Screen Crossmatch 10/18/17 10/18/17 05:30 05:30 WBC 13.3 H RBC 2.48 L Hgb 7.6 L Hct 22.4 L MCV 90.1 MCH 30.7 MCHC 34.0 RDW 15.3 Plt Count 432 MPV 8.2 Sodium 140 Potassium 3.8 Chloride 103 Carbon Dioxide 27 Anion Gap 10 BUN 62 H Creatinine 3.4 H POC Glucometer Random Glucose 33 L* Calcium 7.7 L Phosphorus 5.1 H Magnesium 2.0 Blood Type Antibody Screen Crossmatch Active Medications Generic Name Dose Route Start Last Admin Trade Name Freq PRN Reason Stop Dose Admin Acetaminophen 650 mg 10/09/17 05:40 10/15/17 23:53 Tylenol - PO 650 mg Q6H PRN Administration FEVER Acetylcysteine 200 mg 10/17/17 10:15 10/17/17 21:00 Mucomyst 20 Oral / Inh Use Only* NEB 200 mg BID [facility]EL[facility]IN Administration Albuterol Sulfate 1 amp 10/15/17 22:00 10/17/17 21:00 Ventolin 0.083% Nebulizer Soln - NEB 1 amp BID [facility] Administration Amino Acids 30 ml 10/13/17 17:30 10/17/17 17:30 Prosource No Carb Liquid Pkt NGT 30 ml BID@0800,1730 [facility] Administration Chlorhexidine Gluconate 1 applic 10/03/17 22:00 10/17/17 22:20 Hibiclens For Decolonization - TP 1 applic HS [facility] Administration Diltiazem HCl 90 mg 10/07/17 19:45 10/18/17 06:23 Cardizem - PO 90 mg Q6HPO [facility] Administration Dextrose 1,000 mls @ 42 mls/hr 10/06/17 18:45 10/18/17 09:06 D10w - IV 42 mls/hr ASDIR [facility] Administration Sodium Chloride 250 mls @ 3,000 mls/hr 10/15/17 09:25 Normal Saline - IV 10/16/17 09:25 PRN PRN Hypotension during Dialysis Insulin Detemir 10 units 10/12/17 22:00 10/17/17 22:20 Levemir Vial SQ 10 units HS [facility] Administration Metoprolol Tartrate 5 mg 10/03/17 19:00 10/05/17 17:49 Lopressor Injection - IVPUSH 5 mg Q4H PRN Administration TACHYCARDIA Pantoprazole Sodium 40 mg 10/14/17 22:00 10/17/17 22:21 Protonix Iv IVPUSH 40 mg BID [facility] Administration ASSESSMENT/PLAN: #Acute Hypoxic Respiratory Failure -Likely secondary to Pneumonia -ABx per ID -Extubated 5 days ago, stable on NC #COPD -Continue Nebulizers -Continue Ventilation -Continue IV Abx #Atelectasis 2/2 trendelenburg positioning -Oxygen -Chest PT -Repositioning -Improving CXR today Infectious Disease #Septic Shock secondary to Pneumonia -ABx per ID. -Blood cultures negative -Sputum cultures staph, hector sensitive -Legionella negative -HOB elevated -Aspiration precautions -Off pressors -White count down to 13 GI #Melena -Episode of melena over the weekend, no bloody bowel movements overnigh -Does not want endoscopy at this time due to intubation requirement -Protonix BID 40mg -Daily CBCs Nephrology #Acute on Chronic Renal Failure -Likely ATN secondary from Septic hock -Urine output 1900 y/d -Cr/BUN elevated today -Permacath placement? Pending renal -Trialysis placed today #AG and Non-AG Metabolic acidosis -Acidosis resolved Cardiovascular #Paroxysmal Atrial Fibrillation -Continue Cardizem -Metoprolol 5mg IVP Q4H PRN for Tachycardia #HTN -Patient not hypertensive -Will continue to monitor BP #CAD/PVD -Ischemia in left toe likely secondary to pressors, hypotension, and prior surgery in the left foot. -DP pulses not present today, left foot is warm, pink with discoloration around big toe -Vascular aware, following -Will optimize medically -Not candidate for asa, heparin due to hgb drop, h/o gi bleed -Plan for angio today #Anemia -Hgb stable today, 7.6, last 8.4 yesterday -Hgb 8.0 after episode of melena -CBCs stable, next will be 6am tomorrow -Transfuse <7 Endocrine #DKA-Resolved -Continue ISS -Continue BGM -Continue Levemir Neurology #Rule out Critical Illness Myopathy/Polyneuropathy -Patient following commands, moving all four extremities, deconditioned -Start PT -Talking today F/E/N -On no fluids -Electrolytes wnl -Taking PO, puree diet with nectar liquids Prophylaxis -High risk. Heparin 5000 units SQ for DVT -Protonix 40mg IV BID daily Disposition -Patient is now DNR/DNI -Possible transfer today Visit type - Emergency Visit Emergency Visit: Yes ED Registration Date: 10/03/17 Care time: The patient presented to the Emergency Department on the above date and was hospitalized for further evaluation of their emergent condition. - New Patient This patient is new to me today: No - Critical Care Critical Care patient: Yes Total Critical Care Time (in minutes): 35 Critical Care Statement: The care of this patient involved high complexity decision making to prevent further life threatening deterioration of the patient 's condition and/or to evaluate & treat vital organ system(s) failure or risk of failure.
[2017-10-18] MEDS: ALBUTEROL SO4 0.083% IH SOL 2.5 MG/3 ML VIAL.NEB. NEB SCH ×4 (09:20→21:34)
[2017-10-18] MEDS: ACETYLCYSTEINE 20% 200MG/ML 4 ML VIAL *FOR ORAL / INH USE ONLY NEB SCH ×4 (09:20→21:34)
[2017-10-18] MEDS: ACETAMINOPHEN 325 MG TABLET (FP) PO PRN ×2 (09:40→17:42)
--- NOTE | 2017-10-18 09:47 | PN ---
Progress Note, Physician Chief Complaint: resp arrest History of Present Illness: much more communicative/intelligible has no sob or cp no palp, leg swelling - Current Medication List Current Medications: Active Medications Acetaminophen (Tylenol -) 650 mg PO Q6H PRN PRN Reason: FEVER Last Admin: 10/15/17 23:53 Dose: 650 mg Acetylcysteine (Mucomyst 20 Oral / Inh Use Only*) 200 mg NEB BID [facility] Last Admin: 10/18/17 09:20 Dose: 200 mg Albuterol Sulfate (Ventolin 0.083% Nebulizer Soln -) 1 amp NEB BID [facility] Last Admin: 10/18/17 09:20 Dose: 1 amp Amino Acids (Prosource No Carb Liquid Pkt) 30 ml NGT BID@0800,1730 [facility] Last Admin: 10/17/17 17:30 Dose: 30 ml Chlorhexidine Gluconate (Hibiclens For Decolonization -) 1 applic TP [facility] Last Admin: 10/17/17 22:20 Dose: 1 applic Diltiazem HCl (Cardizem -) 90 mg PO Q6HPO [facility] Last Admin: 10/18/17 06:23 Dose: 90 mg Dextrose (D10w -) 1,000 mls @ 42 mls/hr IV ASDIR [facility] Last Admin: 10/18/17 09:06 Dose: 42 mls/hr Sodium Chloride (Normal Saline -) 250 mls @ 3,000 mls/hr IV PRN PRN PRN Reason: Hypotension during Dialysis Stop: 10/16/17 09:25 Insulin Detemir (Levemir Vial) 10 units SQ HS [facility] Last Admin: 10/17/17 22:20 Dose: 10 units Metoprolol Tartrate (Lopressor Injection -) 5 mg IVPUSH Q4H PRN PRN Reason: TACHYCARDIA Last Admin: 10/05/17 17:49 Dose: 5 mg Pantoprazole Sodium (Protonix Iv) 40 mg IVPUSH BID [facility] Last Admin: 10/17/17 22:21 Dose: 40 mg - Objective Vital Signs: Vital Signs Temperature 97.6 F 10/18/17 06:00 Pulse Rate 76 10/18/17 08:00 Respiratory Rate 23 10/18/17 08:00 Blood Pressure 143/54 10/18/17 08:00 O2 Sat by Pulse Oximetry (%) 99 10/18/17 08:00 Constitutional: Yes: Well Nourished, No Distress, Calm Cardiovascular: Yes: Regular Rate and Rhythm, Murmur (EMMA rusb), S1, S2. No: JVD, Gallop Respiratory: Yes: Regular, CTA Bilaterally (decr sounds R). No: Accessory Muscle Use, Rales, Wheezes Extremities: No: Cold Edema: No Neurological: Yes: Alert. No: Seizure Psychiatric: No: Agitated Labs: CBC, BMP 10/18/17 05:30 10/18/17 05:30 INR, PTT INR 1.16 (0.82-1.09) H 10/15/17 05:46 Assessment/Plan Echo 06/2017: mod lvh. nl lv fn. nl rv size/fn. 1+ lae. mod-sev mac with mod ms. 1+ mr. nl rvsp. 1+ ao dilation (no or AI) tele: NSR, no fib A/P 76 yo with pmhx of htn, hl, pad, afib (not on AC due to GIB), cva (no residual deficits), copd, dm, mgus, esthesioneuroblastoma treated with radiation therapy , chronic anemia s/p recent GIB admitted with dka, sepsis, resp failure. Hospital course now complicated by episode of afib with rvr afib - not previously a candidate for AC b/c of prior hx of GIB. remains anemic with melena here as well. - s/p IV amio. started po dilt 10/05. now back in sr. hr controlled. - off Amio, remains in sinus. BPs soft but tolerating diltiazem hi dose (90mg q6H)--continue same for now - change to cardizem CD regimen once bp's clearly out of the ngo as far as hypotension - hgb drifted down once ASA resumed--now d/c'd. not a candidate for AC at this time as risks of serious bleeding are > benefits - remains in SR, bp thus far tolerating diltiazem at present dose mitral stenosis: - aggressive control of afib to prevent tachycardia-->CHF as doing - defer amio for now, may have to reconsider if recurrent rapid AF despite sepsis/PNA complete resolution PNA with septic shock, resp failure - off phenylephrine as of AM 10/11, hemodynamically stable currently - cont ICU monitoring - extubated 10/12, remains stable resp status - white out R lung on cxr--per crit care anemia, GI bleeding: - ongoing UGIB here with stool guaiac + (iker hgb 6.1) - s/p PRBCs - counts stable htn - home meds changed to diltiazem here for PAF rate control - bp stable cva/pad - con't statin. - per pmd, previously not a candidate for asa due to recent gib and anemia. hgb drifting down on asa here, held again mild asc ao dilation - can consider switching to beta car once resp issues resolve. SHANTA - renal following, no sig improvement --> initiated HD 10/07.
[2017-10-18] MEDS: PANTOPRAZOLE SODIUM 40 MG VIAL IVPUSH SCH ×2 (09:51→21:15)
[2017-10-18] MEDS: AMINO ACIDS/PROTEIN HYDROLYS 30 ML LIQUID.PKT NGT SCH ×2 (09:51→16:29)
--- NOTE | 2017-10-18 10:01 | PN ---
Progress Note (short form) - Note Progress Note: Patient seen and examined. Seemed alert this morning and his voice is improved. He had been having melena and during the day today his hemoglobin fell to 6 gm. so 2 units of packed cells were ordered. Dr. Erickson saw the patientand had recommended followup CBCs. The patient has never agreed to a colonoscopy in the past. For hemodialysis today. Followup chest x-ray slightly improved. on exam: Vital Signs Temp 97.6 F 10/18/17 17:53 Pulse 92 H 10/18/17 17:53 Resp 24 10/18/17 17:53 BP 124/57 10/18/17 17:53 Pulse Ox 100 10/18/17 18:00 Intake & Output 10/17/17 10/18/17 10/18/17 23:59 11:59 23:59 Intake Total 1430 294 574 Output Total 1450 200 500 Balance -20 94 74 Weight 120 lb 14.4 oz Intake: IV 730 294 254 D10w - 1,000 ml @ 42 mls/ 720 294 254 hr IV ASDIR SELVIN Rx#: [id number] saline lock 10 IVPB 100 Oral 600 320 Output: Urine 1450 200 500 [place] 1450 200 500 Other: Voiding Method Indwelling Catheter Indwelling Catheter Indwelling Catheter Bowel Movement No Yes: liquid maroon black Weight Measurement Method Built in [facility] patient alert Tongue coated with thrush. Chest decreased breath sounds at both bases. I do not hear any rales today. Heart tachycardia. Abdomen slightly distended and soft no focal tenderness. Extremities no pedal edema. Gangrenous changes of 2 toes of the left foot seems to have localized more to the tips of each toe Abnormal Lab Results 10/14/17 10/18/17 10/18/17 20:50 05:30 05:30 WBC 13.3 H RBC 2.48 L Hgb 7.6 L Hct 22.4 L Neutrophils % Lymphocytes % Monocytes % BUN 62 H Creatinine 3.4 H Random Glucose 33 L* Calcium 7.7 L Phosphorus 5.1 H Crossmatch See Detail 10/18/17 10/18/17 10/18/17 11:25 18:00 19:10 WBC 16.9 H 11.8 H D 12.2 H RBC 2.64 L 2.26 L 2.23 L Hgb 8.0 L 6.9 L* D 6.6 L* Hct 24.2 L 20.6 L 20.5 L Neutrophils % 92.4 H 91.5 H Lymphocytes % 3.5 L 3.0 L Monocytes % 3.7 L BUN Creatinine Random Glucose Calcium Phosphorus Crossmatch impression: Melena with GI bleed. 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 Dialysis Sepsis history. Thrush. Pneumonia versus pleural effusion right side. Possible critical illness neuropathy and/or myopathy. Uncontrolled diabetes Possible aspiration. Plan: Transfuse 2 units packed cells. Followup lab Dialysis today. Anthony Goel. followup. Followup chest x-ray
--- NOTE | 2017-10-18 11:29 | PN ---
Progress Note, CORE DRIER - Note Progress Note: Medical events noted. Clear liquid diet ordered over weekend. Was lethargic on and off.Required oral suctioning. Congested.Suspect risk of Aspiration. Reported to tolerate applesauce from nursing today. Dark liquid stool again today. Vocal quality improved, still needs increased effort to be audible. GI consulted who ordered diet. Swallow reassessed. Responsive cough on Lynnette apple. Congested baseline. Suggest trial of Dys puree/ nectar/ magic cup/ensure pudding. Monitor tolerance MBS when stronger.
[2017-10-18 11:43] LABS: HEMATOCRIT 24.2 % (35.4-49); MCH 30.4 pg (25.7-33.7); MCHC 33.3 g/dl (32.0-35.9); MEAN CELL VOLUME 91.6 fl (80-96); MEAN PLT VOLUME 7.8 fl (7.5-11.1); PLATELET COUNT 401 K/MM3 (134-434); RBC 2.64 M/mm3 (4.00-5.60); RDW 15.5 % (11.9-15.9); WHITE BLOOD COUNT 16.9 K/mm3 (4.0-10.0)
--- NOTE | 2017-10-18 11:49 | PN ---
Teaching Attending Note Name of Resident: Curt aCputo ATTENDING PHYSICIAN STATEMENT I saw and evaluated the patient. I reviewed the resident's note and discussed the case with the resident. I agree with the resident's findings and plan as documented. SUBJECTIVE: Pt seen and examined in the ICU. More alert, awake. Denies shortness of breath or chest pain. Off pressors. Hypoglycemic this AM. CXR showing improvement in left sided atelectasis. OBJECTIVE: Last Vital Signs Temp Pulse Resp BP Pulse Ox 97.6 F 77 22 153/58 100 10/18/17 10:00 10/18/17 10:00 10/18/17 10:00 10/18/17 10:00 10/18/17 11:15 Intake & Output 10/15/17 10/16/17 10/17/17 10/18/17 23:59 23:59 23:59 23:59 Intake Total 1472 1052 1730 294 Output Total 1100 1300 1900 200 Balance 372 -248 -170 94 Weight 59.506 kg 55.248 kg 54.204 kg 54.839 kg Gen: mildly tachypneic with speaking Heart: RRR Lung: scattered rhonchi Abd: soft, nontender Ext: ischemic left toes CBC, BMP 10/18/17 11:25 10/18/17 05:30 Active Medications Acetaminophen (Tylenol -) 650 mg PO Q6H PRN PRN Reason: FEVER Last Admin: 10/18/17 09:40 Dose: 650 mg Acetylcysteine (Mucomyst 20 Oral / Inh Use Only*) 200 mg NEB RQID [facility] Albuterol Sulfate (Ventolin 0.083% Nebulizer Soln -) 1 amp NEB RQID [facility] Amino Acids (Prosource No Carb Liquid Pkt) 30 ml NGT BID@0800,1730 [facility] Last Admin: 10/18/17 09:51 Dose: 30 ml Chlorhexidine Gluconate (Hibiclens For Decolonization -) 1 applic TP HS [facility] Last Admin: 10/17/17 22:20 Dose: 1 applic Diltiazem HCl (Cardizem -) 90 mg PO Q6HPO [facility] Last Admin: 10/18/17 06:23 Dose: 90 mg Dextrose (D10w -) 1,000 mls @ 42 mls/hr IV ASDIR [facility] Last Admin: 10/18/17 09:06 Dose: 42 mls/hr Sodium Chloride (Normal Saline -) 250 mls @ 3,000 mls/hr IV PRN PRN PRN Reason: Hypotension during Dialysis Stop: 10/16/17 09:25 Metoprolol Tartrate (Lopressor Injection -) 5 mg IVPUSH Q4H PRN PRN Reason: TACHYCARDIA Last Admin: 10/05/17 17:49 Dose: 5 mg Nystatin (Nystatin Oral Suspension -) 500,000 units PO Q6HPO [facility] Pantoprazole Sodium (Protonix Iv) 40 mg IVPUSH BID [facility] Last Admin: 10/18/17 09:51 Dose: 40 mg ASSESSMENT AND PLAN: Acute Hypoxic Respiratory Failure improving Pneumonia Septic Shock resolving Acute on Chronic Renal Failure requiring HD Lactic Acidosis resolved Diabetic Ketoacidosis improving Paroxysmal Atrial Fibrillation with RVR HTN DM COPD - monitoring off antibiotics - HD per renal - monitor urine output, creatinine - monitor I/Os - will need permacath - glucose control, hold night time levemir - rate control - anticoagulation per cardiology - taper FiO2 to keep SpO2 >90% - monitoring off pressors - swallow eval - aspiration precautions - DVT/GI prophylaxis critical care time spent in reviewing chart, evaluating patient and formulating plan 35 min
[2017-10-18] MEDS: NYSTATIN 500,000 UNITS/5 ML SUSPENSION PO SCH ×2 (12:22→17:42)
--- NOTE | 2017-10-18 12:29 | PN ---
Progress Note (short form) - Note Progress Note: Renal follow up for SHANTA Pt seen and examined in the ICU awake and alert getting Neb Tx making urine via foey denies any sob, chest pain, abd pain, N/V/D Vital Signs Temperature 97.6 F 10/18/17 10:00 Pulse Rate 77 10/18/17 10:00 Respiratory Rate 22 10/18/17 10:00 Blood Pressure 153/58 10/18/17 10:00 O2 Sat by Pulse Oximetry (%) 100 10/18/17 11:15 Intake & Output 10/15/17 10/16/17 10/17/17 10/18/17 23:59 23:59 23:59 23:59 Intake Total 1472 1052 1730 294 Output Total 1100 1300 1900 200 Balance 372 -248 -170 94 Weight 59.506 kg 55.248 kg 54.204 kg 54.839 kg NAD RRR, No M/R Dec BS at lung bases soft NT/ND No LE edema, clubbing or cyanosis heels in dressing CBC, BMP 10/18/17 11:25 10/18/17 05:30 Laboratory Tests 10/17/17 10/18/17 06:00 05:30 Calcium 7.8 L 7.7 L Phosphorus 4.6 D 5.1 H Magnesium 2.0 2.0 Current Medications Acetaminophen (Tylenol -) 650 mg PO Q6H PRN PRN Reason: FEVER Last Admin: 10/18/17 09:40 Dose: 650 mg Acetylcysteine (Mucomyst 20 Oral / Inh Use Only*) 200 mg NEB RQID [facility] Last Admin: 10/18/17 12:07 Dose: 200 mg Albuterol Sulfate (Ventolin 0.083% Nebulizer Soln -) 1 amp NEB RQID [facility] Last Admin: 10/18/17 12:07 Dose: 1 amp Amino Acids (Prosource No Carb Liquid Pkt) 30 ml NGT BID@0800,1730 [facility] Last Admin: 10/18/17 09:51 Dose: 30 ml Chlorhexidine Gluconate (Hibiclens For Decolonization -) 1 applic TP HS [facility] Last Admin: 10/17/17 22:20 Dose: 1 applic Diltiazem HCl (Cardizem -) 90 mg PO Q6HPO [facility] Last Admin: 10/18/17 12:21 Dose: 90 mg Dextrose (D10w -) 1,000 mls @ 42 mls/hr IV [facility]IR [facility] Last Admin: 10/18/17 09:06 Dose: 42 mls/hr Sodium Chloride (Normal Saline -) 250 mls @ 3,000 mls/hr IV PRN PRN PRN Reason: Hypotension during Dialysis Stop: 10/16/17 09:25 Metoprolol Tartrate (Lopressor Injection -) 5 mg IVPUSH Q4H PRN PRN Reason: TACHYCARDIA Last Admin: 10/05/17 17:49 Dose: 5 mg Nystatin (Nystatin Oral Suspension -) 500,000 units PO Q6HPO [facility] Last Admin: 10/18/17 12:22 Dose: 500,000 units Pantoprazole Sodium (Protonix Iv) 40 mg IVPUSH BID [facility] Last Admin: 10/18/17 09:51 Dose: 40 mg 76 year old male with a significant past medical history of COPD, GI bleed, diverticulosis, HLD, CVA, intussusception, umbilical hernia, DM, HTN, sinus cancer with excision and polypectomy who presents to the ED, accompanied by , s/p high blood sugar levels earlier today. #SHANTA on CKD likely due to ATN in setting of sepsis #Sepsis/PNA #Metabolic acidosis (now resolved) #Anemia #Hx of Hypertension #DM on Insulin #Hyperphosphatemia BUN/Cr uptrending after dailysis however slope is not high, pt is non-oliguric off diuretics no indication for [employer] at the present time, will continue to monitor renal function Continue ICU care Trend H/H, transfuse as per ICU protocol Tomás Al DO
--- NOTE | 2017-10-18 13:31 | PN ---
Progress Note, Physician History of Present Illness: wbc slightly up seems patient had some janene/bleeding awake and alert says he is feeling better wbc slightly up h and h down - Current Medication List Current Medications: Active Medications Acetaminophen (Tylenol -) 650 mg PO Q6H PRN PRN Reason: FEVER Last Admin: 10/18/17 09:40 Dose: 650 mg Acetylcysteine (Mucomyst 20 Oral / Inh Use Only*) 200 mg NEB RQID [facility] Last Admin: 10/18/17 12:07 Dose: 200 mg Albuterol Sulfate (Ventolin 0.083% Nebulizer Soln -) 1 amp NEB RQID [facility] Last Admin: 10/18/17 12:07 Dose: 1 amp Amino Acids (Prosource No Carb Liquid Pkt) 30 ml NGT BID@0800,1730 [facility] Last Admin: 10/18/17 09:51 Dose: 30 ml Chlorhexidine Gluconate (Hibiclens For Decolonization -) 1 applic TP HS [facility] Last Admin: 10/17/17 22:20 Dose: 1 applic Diltiazem HCl (Cardizem -) 90 mg PO Q6HPO [facility] Last Admin: 10/18/17 12:21 Dose: 90 mg Dextrose (D10w -) 1,000 mls @ 42 mls/hr IV ASDIR [facility] Last Admin: 10/18/17 09:06 Dose: 42 mls/hr Sodium Chloride (Normal Saline -) 250 mls @ 3,000 mls/hr IV PRN PRN PRN Reason: Hypotension during Dialysis Stop: 10/16/17 09:25 Metoprolol Tartrate (Lopressor Injection -) 5 mg IVPUSH Q4H PRN PRN Reason: TACHYCARDIA Last Admin: 10/05/17 17:49 Dose: 5 mg Nystatin (Nystatin Oral Suspension -) 500,000 units PO Q6HPO [facility] Last Admin: 10/18/17 12:22 Dose: 500,000 units Pantoprazole Sodium (Protonix Iv) 40 mg IVPUSH BID [facility] Last Admin: 10/18/17 09:51 Dose: 40 mg - Objective Vital Signs: Vital Signs Temperature 97.6 F 10/18/17 10:00 Pulse Rate 86 10/18/17 12:00 Respiratory Rate 23 10/18/17 12:00 Blood Pressure 123/82 10/18/17 12:00 O2 Sat by Pulse Oximetry (%) 100 10/18/17 11:15 Constitutional: Yes: No Distress, Calm Cardiovascular: Yes: S1, S2 Respiratory: Yes: Regular, Poor Air Entry Gastrointestinal: Yes: Normal Bowel Sounds, Soft Musculoskeletal: Yes: WNL Extremities: Yes: WNL Neurological: Yes: Alert Psychiatric: Yes: Alert Labs: CBC, BMP 10/18/17 11:25 10/18/17 05:30 INR, PTT INR 1.16 (0.82-1.09) H 10/15/17 05:46 Assessment/Plan 76 year old male with a significant past medical history of COPD, GI bleed, diverticulosis, HLD, CVA, intussusception, umbilical hernia, DM, HTN, sinus cancer with excision and polypectomy Acute Hypoxic Respiratory Failure Pneumonia Septic Shock Acute on Chronic Renal Failure Lactic Acidosis Diabetic Ketoacidosis improving HTN DM COPD gluteal ulcer discoloration of the toes wbc fluctuating plan continue abx continue close monitoring monitor wbc monitor h and h close watch stable rest as per icu will consider stopping abx tomorrow cc time 40 min
--- NOTE | 2017-10-18 13:57 | PN ---
Progress Note, Physician History of Present Illness: Had melanotic stool this am. Hemodynamically unchanged. Awake, alert. NAD. No abdominal pain, or discomfort. - Current Medication List Current Medications: Active Medications Acetaminophen (Tylenol -) 650 mg PO Q6H PRN PRN Reason: FEVER Last Admin: 10/18/17 09:40 Dose: 650 mg Acetylcysteine (Mucomyst 20 Oral / Inh Use Only*) 200 mg NEB RQID [facility] Last Admin: 10/18/17 12:07 Dose: 200 mg Albuterol Sulfate (Ventolin 0.083% Nebulizer Soln -) 1 amp NEB RQID [facility] Last Admin: 10/18/17 12:07 Dose: 1 amp Amino Acids (Prosource No Carb Liquid Pkt) 30 ml NGT BID@0800,1730 [facility] Last Admin: 10/18/17 09:51 Dose: 30 ml Chlorhexidine Gluconate (Hibiclens For Decolonization -) 1 applic TP HS [facility] Last Admin: 10/17/17 22:20 Dose: 1 applic Diltiazem HCl (Cardizem -) 90 mg PO Q6HPO [facility] Last Admin: 10/18/17 12:21 Dose: 90 mg Dextrose (D10w -) 1,000 mls @ 42 mls/hr IV ASDIR [facility] Last Admin: 10/18/17 09:06 Dose: 42 mls/hr Sodium Chloride (Normal Saline -) 250 mls @ 3,000 mls/hr IV PRN PRN PRN Reason: Hypotension during Dialysis Stop: 10/16/17 09:25 Metoprolol Tartrate (Lopressor Injection -) 5 mg IVPUSH Q4H PRN PRN Reason: TACHYCARDIA Last Admin: 10/05/17 17:49 Dose: 5 mg Nystatin (Nystatin Oral Suspension -) 500,000 units PO Q6HPO [facility] Last Admin: 10/18/17 12:22 Dose: 500,000 units Pantoprazole Sodium (Protonix Iv) 40 mg IVPUSH BID [facility] Last Admin: 10/18/17 09:51 Dose: 40 mg - Objective Vital Signs: Vital Signs Temperature 97.6 F 10/18/17 10:00 Pulse Rate 86 10/18/17 12:00 Respiratory Rate 23 10/18/17 12:00 Blood Pressure 123/82 10/18/17 12:00 O2 Sat by Pulse Oximetry (%) 100 10/18/17 11:15 Constitutional: Yes: Calm, Cachectic, Pallor, Thin Gastrointestinal: Yes: Soft, Ascites, Melena. No: Distention, Rectal Bleeding, Tenderness Neurological: Yes: Alert Labs: CBC, BMP 10/18/17 11:25 10/18/17 05:30 INR, PTT INR 1.16 (0.82-1.09) H 10/15/17 05:46 Laboratory Last Values WBC 16.9 K/mm3 (4.0-10.0) H 10/18/17 11:25 RBC 2.64 M/mm3 (4.00-5.60) L 10/18/17 11:25 Hgb 8.0 GM/dL (11.7-16.9) L 10/18/17 11:25 Hct 24.2 % (35.4-49) L 10/18/17 11:25 MCV 91.6 fl (80-96) 10/18/17 11:25 MCH 30.4 pg (25.7-33.7) 10/18/17 11:25 MCHC 33.3 g/dl (32.0-35.9) 10/18/17 11:25 RDW 15.5 % (11.9-15.9) 10/18/17 11:25 Plt Count 401 K/MM3 (134-434) 10/18/17 11:25 MPV 7.8 fl (7.5-11.1) 10/18/17 11:25 Total Counted 98 10/09/17 05:50 Neutrophils % 90.8 % (42.8-82.8) H 10/16/17 05:35 Neutrophils % (Manual) 92.9 % (42.8-82.8) H* 10/14/17 05:43 Band Neutrophils % 0.0 % 10/14/17 05:43 Lymphocytes % 3.2 % (8-40) L D 10/16/17 05:35 Lymphocytes % (Manual) 2.0 % (8-40) L D 10/14/17 05:43 Monocytes % 4.9 % (3.8-10.2) 10/16/17 05:35 Monocytes % (Manual) 3 % (3.8-10.2) L 10/14/17 05:43 Eosinophils % 0.3 % (0-4.5) 10/16/17 05:35 Eosinophils % (Manual) 0.0 % (0-4.5) D 10/14/17 05:43 Basophils % 0.8 % (0-2.0) 10/16/17 05:35 Basophils % (Manual) 1.0 % (0-2.0) D 10/14/17 05:43 Myelocytes % (Man) 1 % (0-2) D 10/14/17 05:43 Promyelocytes % (Man) 0 % (0-2) 10/14/17 05:43 Blast Cells % (Manual) 0 % (0-0) 10/14/17 05:43 Nucleated RBC % 0 % (0-0) 10/14/17 05:43 Metamyelocytes 0 % (0-2) 10/14/17 05:43 Hypochromia 1+ 10/07/17 06:05 Toxic Granulation 1+ 10/14/17 05:43 Platelet Estimate Normal 10/14/17 05:43 Platelet Comment Present 10/07/17 06:05 Poikilocytosis 1+ 10/07/17 06:05 Anisocytosis 1+ 10/06/17 05:50 Microcytosis 1+ 10/06/17 05:50 Macrocytosis 1+ 10/06/17 05:50 Tear Drop Cells 1+ 10/05/17 05:50 Ovalocytes 1+ 10/07/17 06:05 Stomatocytes 1+ 10/14/17 05:43 [place] Cells 2+ 10/07/17 06:05 Schistocytes 1+ 10/06/17 05:50 PT with INR 13.10 SEC (9.98-11.88) H 10/15/17 05:46 INR 1.16 (0.82-1.09) H 10/15/17 05:46 PTT (Actin FS) 23.7 SECONDS (26.9-34.4) L 10/15/17 05:46 Anticoagulation Therapy No Result Required. 10/07/17 06:30 Puncture Site Left brachial 10/11/17 09:20 Patient Temperature Cancelled 10/05/17 06:50 ABG pH 7.42 (7.35-7.45) 10/11/17 09:20 ABG pCO2 at Pt Temp 40.3 mmHg (35-45) 10/11/17 09:20 ABG pO2 at Pt Temp 120.0 mmHg (70-100) H D 10/11/17 09:20 ABG HCO3 25.6 meq/L (22-26) 10/11/17 09:20 ABG O2 Sat (Measured) 98.4 % (90-98.9) 10/11/17 09:20 ABG O2 Content 10.5 % vol (15-22) L 10/11/17 09:20 ABG Base Excess 1.6 meq/l (-2-2) 10/11/17 09:20 Ra Test Positive 10/11/17 09:20 O2 Delivery Device A/c 10/11/17 09:20 Oxygen Flow Rate 40% 10/11/17 09:20 Vent Mode A/c 10/11/17 09:20 Vent Rate 16 10/11/17 09:20 Mechanical Rate Yes 10/11/17 09:20 PEEP 5.0 cmH2O 10/11/17 09:20 Pressure Support Vent 450 10/11/17 09:20 Sodium 140 mmol/L (136-145) 10/18/17 05:30 Potassium 3.8 mmol/L (3.5-5.1) 10/18/17 05:30 Chloride 103 mmol/L (98-107) 10/18/17 05:30 Carbon Dioxide 27 mmol/L (21-32) 10/18/17 05:30 Anion Gap 10 (8-16) 10/18/17 05:30 BUN 62 mg/dL (7-18) H 10/18/17 05:30 Creatinine 3.4 mg/dL (0.7-1.3) H 10/18/17 05:30 Creat Clearance w eGFR 19.58 (>60) 10/15/17 05:46 POC Glucometer 275.50326 UNITS (80-120) 10/18/17 12:19 Random Glucose 33 mg/dL (74-106) L* 10/18/17 05:30 Hemoglobin A1c % 8.5 % (4.8-6.0) H D 10/04/17 06:00 Lactic Acid 2.0 mmol/L (0.0-2.0) 10/03/17 12:00 Calcium 7.7 mg/dL (8.5-10.1) L 10/18/17 05:30 Phosphorus 5.1 mg/dL (2.5-4.9) H 10/18/17 05:30 Magnesium 2.0 mg/dL (1.8-2.4) 10/18/17 05:30 Iron 22 ug/dL (38-169) L 10/06/17 05:50 Ferritin 202.816 ng/ml (16.4-293.9) 10/06/17 05:50 Total Bilirubin 0.2 mg/dL (0.2-1.0) D 10/15/17 05:46 AST 21 U/L (15-37) D 10/15/17 05:46 ALT 15 U/L (12-78) D 10/15/17 05:46 Alkaline Phosphatase 74 U/L (45-117) 10/15/17 05:46 Total Protein 4.6 g/dl (6.4-8.2) L 10/15/17 05:46 Albumin 1.2 g/dl (3.4-5.0) L 10/15/17 05:46 Vitamin B12 1602 pg/ml (180-914) H 10/06/17 05:50 Serum Folate 23 ng/ml (3.1-17.5) H 10/06/17 05:50 Urine Color Lin[place] 10/03/17 10:32 Urine Appearance Turbid 10/03/17 10:32 Urine pH 5.0 (5.0-8.0) 10/03/17 10:32 Ur Specific [place] 1.016 (1.001-1.035) 10/03/17 10:32 Urine Protein 2+ (NEGATIVE) H 10/03/17 10:32 Urine Glucose (UA) 2+ (NEGATIVE) H 10/03/17 10:32 Urine Ketones Trace (NEGATIVE) H 10/03/17 10:32 Urine Blood Negative (NEGATIVE) 10/03/17 10:32 Urine Nitrite Negative (NEGATIVE) 10/03/17 10:32 Urine Bilirubin Negative (<2.0 mg/dL) 10/03/17 10:32 Urine Urobilinogen Negative mg/dL (0.2-1.0) 10/03/17 10:32 Ur Leukocyte Esterase Negative (NEGATIVE) 10/03/17 10:32 Urine WBC (Auto) 6 /hpf (3-5) 10/03/17 10:32 Urine RBC (Auto) 4 /hpf (0-3) 10/03/17 10:32 Ur Epithelial Cells Rare /HPF (FEW) 10/03/17 10:32 Hyaline Casts 18 /lpf 10/03/17 10:32 Granular Casts 18 /lpf 10/03/17 10:32 Stool Occult Blood Positive (NEGATIVE) 10/12/17 18:30 Alcohol, Quantitative < 5.0 mg/dL (0.0-5.0) 10/02/17 23:32 Acetone, Qual Trace (NEGATIVE) 10/02/17 23:32 Hepatitis A Ab Total Negative (Negative) 10/07/17 17:30 Hep Bs Antigen Negative (Negative) 10/07/17 17:30 Hep Bs Antibody Non reactive (.) 10/07/17 17:30 Hep B Core Total Ab Negative (Negative) 10/07/17 17:30 Hep C Ab Diagnostic <0.1 s/co ratio (0.0-0.9) 10/07/17 17:30 Liver Fibrosis Interp (.) 10/07/17 17:30 Blood Type O NEGATIVE 10/14/17 20:50 Antibody Screen Negative 10/14/17 20:50 Crossmatch See Detail 10/14/17 20:50 Problem List - Problems (1) Angiectasia Code(s): I99.8 - OTHER DISORDER OF CIRCULATORY SYSTEM (2) AVM (arteriovenous malformation) of colon Code(s): Q27.33 - ARTERIOVENOUS MALFORMATION OF DIGESTIVE SYSTEM VESSEL (3) AVM (arteriovenous malformation) of colon with hemorrhage Code(s): Q27.33 - ARTERIOVENOUS MALFORMATION OF DIGESTIVE SYSTEM VESSEL (4) Afib Code(s): I48.91 - UNSPECIFIED ATRIAL FIBRILLATION (5) DKA (diabetic ketoacidoses) Code(s): E13.10 - OTH DIABETES MELLITUS WITH KETOACIDOSIS WITHOUT COMA (6) Ischemia of lower extremity Code(s): I99.8 - OTHER DISORDER OF CIRCULATORY SYSTEM Assessment/Plan Hgb and hemodynamics are unchaged. Continue current care. Continue to monitor incl repeat Hgb @ 17 pm
[2017-10-18] MEDS: INSULIN SLIDING SCALE (NOVOLOG) 1 VIAL SQ SCH ×2 (17:48→21:19)
[2017-10-18 19:03] LABS: BASO % 0.3 % (0-2.0); EOS % 0.1 % (0-4.5); LYMPH % 3.5 % (8-40); MCH 30.7 pg (25.7-33.7); MCHC 33.6 g/dl (32.0-35.9); MEAN CELL VOLUME 91.5 fl (80-96); MEAN PLT VOLUME 8.5 fl (7.5-11.1); MONO % 3.7 % (3.8-10.2); NEUT % 92.4 % (42.8-82.8); PLATELET COUNT 377 K/MM3 (134-434); RBC 2.26 M/mm3 (4.00-5.60); RDW 15.5 % (11.9-15.9); WHITE BLOOD COUNT 11.8 K/mm3 (4.0-10.0)
[2017-10-18 19:05] LABS: HEMATOCRIT 20.6 % (35.4-49); HEMOGLOBIN 6.9 GM/dL (11.7-16.9)
[2017-10-18 19:45] LABS: BASO % 0.4 % (0-2.0); EOS % 0.2 % (0-4.5); MCH 29.4 pg (25.7-33.7); MEAN CELL VOLUME 91.7 fl (80-96); MEAN PLT VOLUME 8.6 fl (7.5-11.1); MONO % 4.9 % (3.8-10.2); NEUT % 91.5 % (42.8-82.8); PLATELET COUNT 392 K/MM3 (134-434); RBC 2.23 M/mm3 (4.00-5.60); RDW 15.5 % (11.9-15.9); WHITE BLOOD COUNT 12.2 K/mm3 (4.0-10.0)
[2017-10-18 19:48] LABS: HEMATOCRIT 20.5 % (35.4-49); HEMOGLOBIN 6.6 GM/dL (11.7-16.9)
[2017-10-18] MEDS: CHLORHEXIDINE GLUCONATE 4% CLEANSER FOR DECOLONIZATION TP SCH (21:15)
[2017-10-18] MEDS ORDERED: INSULIN (LEVEMIR) 100 UNITS/ML UNITS SQ SCH (22:00)
[2017-10-18 22:17] LABS: PLATELET ESTIMATE ADEQUATE
[2017-10-18 22:18] LABS: ADD RBC MORPHOLOGY YES
[2017-10-18 22:19] LABS: ANISOCYTOSIS 1+; MACROCYTOSIS 1+; OVALOCYTE 1+
[2017-10-19] MEDS ORDERED: DEXTROSE 50%-WATER - 25 GM/50 ML VIAL IVPUSH PRN (05:19)
[2017-10-19] MEDS: dilTIAZem HCL 30 MG TABLET (FP) PO SCH ×4 (06:27→17:53)
[2017-10-19] MEDS: NYSTATIN 500,000 UNITS/5 ML SUSPENSION PO SCH ×4 (06:27→17:52)
[2017-10-19] MEDS: INSULIN SLIDING SCALE (NOVOLOG) 1 VIAL SQ SCH ×4 (06:28→21:27)
[2017-10-19 06:41] LABS: ANION GAP 8 (8-16); BLOOD UREA NITROGEN 73 mg/dL (7-18); CALCIUM 7.1 mg/dL (8.5-10.1); CHLORIDE 103 mmol/L (98-107); CO2 28 mmol/L (21-32); CREATININE 3.8 mg/dL (0.7-1.3); GLUCOSE,RANDOM 119 mg/dL (74-106); POTASSIUM 3.8 mmol/L (3.5-5.1); SODIUM 139 mmol/L (136-145)
[2017-10-19 06:45] LABS: BASO % 0.4 % (0-2.0); EOS % 0.1 % (0-4.5); HEMATOCRIT 24.7 % (35.4-49); HEMOGLOBIN 8.4 GM/dL (11.7-16.9); LYMPH % 1.5 % (8-40); MCH 30.8 pg (25.7-33.7); MCHC 34.2 g/dl (32.0-35.9); MEAN CELL VOLUME 90.1 fl (80-96); MEAN PLT VOLUME 8.2 fl (7.5-11.1); PLATELET COUNT 384 K/MM3 (134-434); RBC 2.74 M/mm3 (4.00-5.60); RDW 15.7 % (11.9-15.9); WHITE BLOOD COUNT 14.6 K/mm3 (4.0-10.0)
[2017-10-19] MEDS: ACETYLCYSTEINE 20% 200MG/ML 4 ML VIAL *FOR ORAL / INH USE ONLY NEB SCH ×4 (08:15→21:38)
[2017-10-19] MEDS: ALBUTEROL SO4 0.083% IH SOL 2.5 MG/3 ML VIAL.NEB. NEB SCH ×4 (08:15→21:39)
[2017-10-19] MEDS ORDERED: BISACODYL 5 MG TABLET.DR (FP) PO ONE ×2 (09:02→15:00)
[2017-10-19] MEDS: PANTOPRAZOLE SODIUM 40 MG VIAL IVPUSH SCH ×2 (10:23→21:02)
[2017-10-19] MEDS: AMINO ACIDS/PROTEIN HYDROLYS 30 ML LIQUID.PKT NGT SCH ×2 (10:23→17:52)
--- NOTE | 2017-10-19 10:52 | PN ---
Progress Note (short form) - Note Progress Note: Patient seen and examined. Patient had a recurrence of melena with a falling hemoglobin requiring 1 unit of packed cells. No melena today. GI MD recommends colonoscopy ? without anesthesia but I explained to the patient that he might be in pain and anesthesia cannot be ruled out. He is a DNI so he would also have to be questioned Re: approval for temporary suspension of DNI during and in the periprocedure period. Also no source of bleeding may be found. The GI MD could explain all other pertinent burdens and benefits. On Exam: Vital Signs Temp 98.2 F 10/19/17 06:00 Pulse 79 10/19/17 08:00 Resp 22 10/19/17 08:00 BP 131/46 10/19/17 08:00 Pulse Ox 100 10/18/17 20:25 Intake & Output 10/18/17 10/18/17 10/19/17 11:59 23:59 11:59 Intake Total 294 974 300 Output Total 200 500 500 Balance 94 474 -200 Weight 120 lb 14.4 oz 121 lb Intake: IV 294 254 D10w - 1,000 ml @ 42 mls/ 294 254 hr IV [facility]IR [facility] Rx#: [id number] IVPB 50 Oral 320 300 Packed Cells 350 Output: Urine 200 500 500 [place] 200 500 500 Other: Voiding Method Indwelling Catheter Indwelling Catheter Bowel Movement Yes: liquid maroon black Weight Measurement Method [facility] Decreased breath sounds Abdomen distended with increased bowel sounds Cor: Regular Ext; No changes in the tips of 2 toes left foot. Abnormal Lab Results 10/18/17 10/18/17 10/18/17 11:25 18:00 19:10 WBC 16.9 H 11.8 H D 12.2 H RBC 2.64 L 2.26 L 2.23 L Hgb 8.0 L 6.9 L* D 6.6 L* Hct 24.2 L 20.6 L 20.5 L Neutrophils % 92.4 H 91.5 H Lymphocytes % 3.5 L 3.0 L Monocytes % 3.7 L BUN Creatinine Random Glucose Calcium Crossmatch 10/18/17 10/19/17 10/19/17 20:10 05:35 05:35 WBC 14.6 H RBC 2.74 L D Hgb 8.4 L D Hct 24.7 L D Neutrophils % 94.0 H Lymphocytes % 1.5 L D Monocytes % BUN 73 H Creatinine 3.8 H Random Glucose 119 H D Calcium 7.1 L Crossmatch See Detail IMP: GI Bleed ? source Acute Blood Loss Anemia Uncontrolled DM Acute and Chronic renal failure COPD PLAN: Discussed plan with patient Speak to F/U Lab Patient seems agreeable to the endoscopy procedure.
[2017-10-19] MEDS: ACETAMINOPHEN 325 MG TABLET (FP) PO PRN (11:08)
--- NOTE | 2017-10-19 11:41 | PN ---
Teaching Attending Note Name of Resident: Curt Caputo ATTENDING PHYSICIAN STATEMENT I saw and evaluated the patient. I reviewed the resident's note and discussed the case with the resident. I agree with the resident's findings and plan as documented. SUBJECTIVE: Pt seen and examined in the ICU. Mental status continues to improve. H/H low last night after dark bowel movement, transfused PRBC. CXR showing improvement in right effusion. OBJECTIVE: Last Vital Signs Temp Pulse Resp BP Pulse Ox 97.7 F 80 21 120/67 99 10/19/17 10:00 10/19/17 10:00 10/19/17 10:00 10/19/17 10:00 10/19/17 09:00 Intake & Output 10/16/17 10/17/17 10/18/17 10/19/17 23:59 23:59 23:59 23:59 Intake Total 1052 1730 1268 300 Output Total 1300 1900 700 500 Balance -248 -170 568 -200 Weight 55.248 kg 54.204 kg 54.839 kg 54.885 kg Gen: more alert, awake, conversant Heart: RRR, +systolic murmur Lung: scattered rhonchi Abd: soft, nontender Ext: no edema, ischemic toes CBC, BMP 10/19/17 05:35 10/19/17 05:35 Active Medications Acetaminophen (Tylenol -) 650 mg PO Q6H PRN PRN Reason: FEVER Last Admin: 10/19/17 11:08 Dose: 650 mg Acetylcysteine (Mucomyst 20 Oral / Inh Use Only*) 200 mg NEB RQID [facility] Last Admin: 10/18/17 21:34 Dose: 200 mg Albuterol Sulfate (Ventolin 0.083% Nebulizer Soln -) 1 amp NEB RQID [facility] Last Admin: 10/18/17 21:34 Dose: 1 amp Amino Acids (Prosource No Carb Liquid Pkt) 30 ml NGT BID@0800,1730 [facility] Last Admin: 10/19/17 10:23 Dose: 30 ml Chlorhexidine Gluconate (Hibiclens For Decolonization -) 1 applic TP HS [facility] Last Admin: 10/18/17 21:15 Dose: 1 applic Diltiazem HCl (Cardizem -) 90 mg PO Q6HPO [facility] Last Admin: 10/19/17 06:27 Dose: 90 mg Sodium Chloride (Normal Saline -) 250 mls @ 3,000 mls/hr IV PRN PRN PRN Reason: Hypotension during Dialysis Stop: 10/16/17 09:25 Insulin Aspart (Novolog Vial Sliding Scale -) 1 vial SQ ACHS [facility] PRN Reason: Protocol Last Admin: 10/19/17 06:28 Dose: Not Given Insulin Detemir (Levemir Vial) 5 units SQ HS [facility] Metoprolol Tartrate (Lopressor Injection -) 5 mg IVPUSH Q4H PRN PRN Reason: TACHYCARDIA Last Admin: 10/05/17 17:49 Dose: 5 mg Nystatin (Nystatin Oral Suspension -) 500,000 units PO Q6HPO [facility] Last Admin: 10/19/17 06:27 Dose: 500,000 units Pantoprazole Sodium (Protonix Iv) 40 mg IVPUSH BID [facility] Last Admin: 10/19/17 10:23 Dose: 40 mg Polyethylene Glycol/Electrolytes (Golytely Solution -) 4,000 ml PO ONCE ONE Stop: 10/19/17 17:01 ASSESSMENT AND PLAN: Acute Hypoxic Respiratory Failure improving Pneumonia Septic Shock resolving Acute on Chronic Renal Failure requiring HD Lactic Acidosis resolved Diabetic Ketoacidosis improving Paroxysmal Atrial Fibrillation with RVR GI bleed HTN DM COPD - monitor H/H - transfuse as needed - for endoscopy/colonoscopy - monitoring off antibiotics - HD per renal - monitor urine output, creatinine - monitor I/Os - may need permacath - glucose control, decrease night time levemir - rate control - holding anticoagulation due to suspected GI bleed - taper FiO2 to keep SpO2 >90% - monitoring off pressors - swallow eval - aspiration precautions - DVT/GI prophylaxis - continue ICU monitoring critical care time spent in reviewing chart, evaluating patient and formulating plan 35 min
--- NOTE | 2017-10-19 12:01 | PN ---
Progress Note, [employer] - Note Progress Note: Selected Entries 10/19/17 10/19/17 10/19/17 02:00 06:00 09:59 Breakfast 75% Temperature 97.8 F 98.2 F 10/19/17 10:00 Breakfast Temperature 97.7 F Laboratory Tests 10/18/17 10/19/17 05:30 05:35 WBC 13.3 H 14.6 H More alert, verbal, improved vocal quality and volume. Swallowing reassessed with responsive cough repeatedly with thin liquid trials.Case reviewed with primary nurse. Continue nectar thick liquid for now. Consider MBS when stronger.
--- NOTE | 2017-10-19 12:32 | PN ---
Physical Exam: SUBJECTIVE: Patient seen and examined in ICU. Hgb down to 6.6, given additional unit. Patient is much more talkative and interactive today. Discussed possibility of GI intervention today. Patient expressed frustration with multiple things going wrong with his stay. Has insight into his condition.l OBJECTIVE: Vital Signs Period Temp Pulse Resp BP Sys/Sy Pulse Ox Last 24 Hr 97.6 F-98.2 F 68-92 18-31 102-154/46-67 99-100 GENERAL: The patient is awake, alert, and fully oriented, in no acute distress. Cachetic HEAD: Normal with no signs of trauma. EYES: PERRL, extraocular movements intact, sclera anicteric, conjunctiva clear. ENT: Ears normal, nares patent, oropharynx clear without exudates, moist mucous membranes. LUNGS: Breath sounds equal, clear to auscultation bilaterally, no accessory muscle use. HEART: Regular rate and rhythm, S1, S2 without murmur, rub or gallop. ABDOMEN: Soft, nontender, nondistended, normoactive bowel sounds, no guarding, no rebound, no hepatosplenomegaly, no masses. NEUROLOGICAL: Cranial nerves II through XII grossly intact. Normal speech, gait not observed. Laboratory Results - last 24 hr 10/18/17 10/18/17 10/18/17 12:19 16:34 18:00 WBC 11.8 H D RBC 2.26 L Hgb 6.9 L* D Hct 20.6 L MCV 91.5 MCH 30.7 MCHC 33.6 RDW 15.5 Plt Count 377 MPV 8.5 Neutrophils % 92.4 H Lymphocytes % 3.5 L Monocytes % 3.7 L Eosinophils % 0.1 Basophils % 0.3 Platelet Estimate Adequate Platelet Comment Polychromasia Rare Poikilocytosis 1+ Anisocytosis 1+ Macrocytosis 1+ Ovalocytes 1+ Sodium Potassium Chloride Carbon Dioxide Anion Gap BUN Creatinine POC Glucometer 275.67917 354.08050 Random Glucose Calcium Blood Type Antibody Screen Crossmatch 10/18/17 10/18/17 10/18/17 19:10 20:10 20:54 WBC 12.2 H RBC 2.23 L Hgb 6.6 L* Hct 20.5 L MCV 91.7 MCH 29.4 MCHC 32.0 RDW 15.5 Plt Count 392 MPV 8.6 Neutrophils % 91.5 H Lymphocytes % 3.0 L Monocytes % 4.9 Eosinophils % 0.2 D Basophils % 0.4 Platelet Estimate Platelet Comment Polychromasia Poikilocytosis Anisocytosis Macrocytosis Ovalocytes Sodium Potassium Chloride Carbon Dioxide Anion Gap BUN Creatinine POC Glucometer 276.33721 Random Glucose Calcium Blood Type O NEGATIVE Antibody Screen Negative Crossmatch See Detail 10/19/17 10/19/17 10/19/17 04:58 05:35 05:35 WBC 14.6 H RBC 2.74 L D Hgb 8.4 L D Hct 24.7 L D MCV 90.1 MCH 30.8 MCHC 34.2 RDW 15.7 Plt Count 384 MPV 8.2 Neutrophils % 94.0 H Lymphocytes % 1.5 L D Monocytes % 4.0 Eosinophils % 0.1 Basophils % 0.4 Platelet Estimate Platelet Comment Polychromasia Poikilocytosis Anisocytosis Macrocytosis Ovalocytes Sodium 139 Potassium 3.8 Chloride 103 Carbon Dioxide 28 Anion Gap 8 BUN 73 H Creatinine 3.8 H POC Glucometer 210.72954 Random Glucose 119 H D Calcium 7.1 L Blood Type Antibody Screen Crossmatch 10/19/17 05:36 WBC RBC Hgb Hct MCV MCH MCHC RDW Plt Count MPV Neutrophils % Lymphocytes % Monocytes % Eosinophils % Basophils % Platelet Estimate Platelet Comment Polychromasia Poikilocytosis Anisocytosis Macrocytosis Ovalocytes Sodium Potassium Chloride Carbon Dioxide Anion Gap BUN Creatinine POC Glucometer 143.84468 Random Glucose Calcium Blood Type Antibody Screen Crossmatch Active Medications Generic Name Dose Route Start Last Admin Trade Name Freq PRN Reason Stop Dose Admin Acetaminophen 650 mg 10/09/17 05:40 10/19/17 11:08 Tylenol - PO 650 mg Q6H PRN Administration FEVER Acetylcysteine 200 mg 10/18/17 12:00 10/18/17 21:34 Mucomyst 20 Oral / Inh Use Only* NEB 200 mg RQID SELVIN Administration Albuterol Sulfate 1 amp 10/18/17 12:00 10/18/17 21:34 Ventolin 0.083% Nebulizer Soln - NEB 1 amp RQID SELVIN Administration Amino Acids 30 ml 10/13/17 17:30 10/19/17 10:23 Prosource No Carb Liquid Pkt NGT 30 ml BID@0800,1730 SELVIN Administration Chlorhexidine Gluconate 1 applic 10/03/17 22:00 10/18/17 21:15 Hibiclens For Decolonization - TP 1 applic HS SELVIN Administration Diltiazem HCl 90 mg 10/07/17 19:45 10/19/17 12:01 Cardizem - PO 90 mg Q6HPO SELVIN Administration Sodium Chloride 250 mls @ 3,000 mls/hr 10/15/17 09:25 Normal Saline - IV 10/16/17 09:25 PRN PRN Hypotension during Dialysis Insulin Aspart 1 vial 10/18/17 22:00 10/19/17 12:01 Novolog Vial Sliding Scale - SQ 2 units ACHS SELVIN Administration Protocol Insulin Detemir 5 units 10/19/17 11:21 Levemir Vial SQ HS SELVIN Metoprolol Tartrate 5 mg 10/03/17 19:00 10/05/17 17:49 Lopressor Injection - IVPUSH 5 mg Q4H PRN Administration TACHYCARDIA Nystatin 500,000 units 10/18/17 12:00 10/19/17 12:01 Nystatin Oral Suspension - PO 500,000 units Q6HPO SELVIN Administration Pantoprazole Sodium 40 mg 10/14/17 22:00 10/19/17 10:23 Protonix Iv IVPUSH 40 mg BID SELVIN Administration Polyethylene Glycol/Electrolytes 4,000 ml 10/19/17 17:00 Golytely Solution - PO 10/19/17 17:01 ONCE ONE ASSESSMENT/PLAN: 76M with history of COPD, IDDM, pneumonia with history of prior intubation here with pneumonia and dka. DKA resolved. Intubated, then extubated. Stable respiratory status on NC. #Acute Hypoxic Respiratory Failure -Likely secondary to Pneumonia -ABx per ID -Extubated, stable on NC #COPD -Continue Nebulizers -Continue Ventilation -Continue IV Abx #Atelectasis 2/2 trendelenburg positioning -Oxygen -Chest PT -Repositioning -Improving CXR today again Infectious Disease #Septic Shock secondary to Pneumonia -ABx per ID. -Blood cultures negative -Sputum cultures staph, hector sensitive -Legionella negative -HOB elevated -Aspiration precautions -Off pressors GI #Melena -Episode of melena yesterday, hgb drop -GI planning for procedure tomorrow -Protonix BID 40mg -Daily CBCs Nephrology #Acute on Chronic Renal Failure -Likely ATN secondary from Septic hock -Urine output 700 y/d -Permacath placement? Pending GI bleed resolution #AG and Non-AG Metabolic acidosis -Acidosis resolved Cardiovascular #Paroxysmal Atrial Fibrillation -Continue Cardizem -Metoprolol 5mg IVP Q4H PRN for Tachycardia #HTN -Patient not hypertensive -Will continue to monitor BP #CAD/PVD -Ischemia in left toe likely secondary to pressors, hypotension, and prior surgery in the left foot. -Left foot is warm, pink with discoloration around big toe -Vascular aware, following -Will optimize medically -Not candidate for asa, heparin due to hgb drop, h/o gi bleed -Plan for angio today #Anemia -Hgb stable today, 8.4 after transfusion -CBCs stable, next will be 6am tomorrow -Transfuse <7 Endocrine #DKA-Resolved -Continue ISS -Continue BGM -Continue Levemir Neurology #Rule out Critical Illness Myopathy/Polyneuropathy -Patient following commands, moving all four extremities, deconditioned -Start PT -Talking today F/E/N -On no fluids -Electrolytes wnl -Taking PO, puree diet with nectar liquids -NPO after midnight Prophylaxis -Anticoagulation held due to GI bleed -Protonix 40mg IV BID daily Disposition -Patient is now DNR/DNI -Continued ICU care, will re-evaluate after GI procedure Visit type - Emergency Visit Emergency Visit: Yes ED Registration Date: 10/03/17 Care time: The patient presented to the Emergency Department on the above date and was hospitalized for further evaluation of their emergent condition. - New Patient This patient is new to me today: No - Critical Care Critical Care patient: Yes Total Critical Care Time (in minutes): 45 Critical Care Statement: The care of this patient involved high complexity decision making to prevent further life threatening deterioration of the patient 's condition and/or to evaluate & treat vital organ system(s) failure or risk of failure.
--- NOTE | 2017-10-19 12:40 | PN ---
Progress Note (short form) - Note Progress Note: Awake, Eyes open, in NAD Apetite good Events noted, hypoglycemia overnight, was off D10W Pt off D10W Vital Signs Period Temp Pulse Resp BP Sys/Sy Pulse Ox Last 24 Hr 97.6 F-98.2 F 68-92 18-31 102-154/46-67 99-100 PE: , awake, alert Neck: supple Lungs: few rhonchi CVS: S1S2 Abd: Benign Ext: No edema, dusky coloration left 1st and 2nd toes Neuro: Awake, open eyes, CMP Sodium 139 mmol/L (136-145) 10/19/17 05:35 Potassium 3.8 mmol/L (3.5-5.1) 10/19/17 05:35 Chloride 103 mmol/L (98-107) 10/19/17 05:35 Carbon Dioxide 28 mmol/L (21-32) 10/19/17 05:35 Anion Gap 8 (8-16) 10/19/17 05:35 BUN 73 mg/dL (7-18) H 10/19/17 05:35 Creatinine 3.8 mg/dL (0.7-1.3) H 10/19/17 05:35 Creat Clearance w eGFR 19.58 (>60) 10/15/17 05:46 POC Glucometer 143.60827 UNITS (80-120) 10/19/17 05:36 Random Glucose 119 mg/dL (74-106) H D 10/19/17 05:35 Hemoglobin A1c % 8.5 % (4.8-6.0) H D 10/04/17 06:00 Lactic Acid 2.0 mmol/L (0.0-2.0) 10/03/17 12:00 Calcium 7.1 mg/dL (8.5-10.1) L 10/19/17 05:35 Phosphorus 5.1 mg/dL (2.5-4.9) H 10/18/17 05:30 Magnesium 2.0 mg/dL (1.8-2.4) 10/18/17 05:30 Iron 22 ug/dL (38-169) L 10/06/17 05:50 Ferritin 202.816 ng/ml (16.4-293.9) 10/06/17 05:50 Total Bilirubin 0.2 mg/dL (0.2-1.0) D 10/15/17 05:46 AST 21 U/L (15-37) D 10/15/17 05:46 ALT 15 U/L (12-78) D 10/15/17 05:46 Alkaline Phosphatase 74 U/L (45-117) 10/15/17 05:46 Total Protein 4.6 g/dl (6.4-8.2) L 10/15/17 05:46 Albumin 1.2 g/dl (3.4-5.0) L 10/15/17 05:46 Vitamin B12 1602 pg/ml (180-914) H 10/06/17 05:50 Serum Folate 23 ng/ml (3.1-17.5) H 10/06/17 05:50 Current Medications Generic Name Dose Route Start Last Admin Trade Name Freq PRN Reason Stop Dose Admin Acetaminophen 650 mg 10/09/17 05:40 10/19/17 11:08 Tylenol - PO 650 mg Q6H PRN Administration FEVER Acetylcysteine 200 mg 10/18/17 12:00 10/18/17 21:34 Mucomyst 20 Oral / Inh Use Only* NEB 200 mg RQID SELVIN Administration Albuterol Sulfate 1 amp 10/18/17 12:00 10/18/17 21:34 Ventolin 0.083% Nebulizer Soln - NEB 1 amp RQID SELVIN Administration Amino Acids 30 ml 10/13/17 17:30 10/19/17 10:23 Prosource No Carb Liquid Pkt NGT 30 ml BID@0800,1730 SELVIN Administration Chlorhexidine Gluconate 1 applic 10/03/17 22:00 10/18/17 21:15 Hibiclens For Decolonization - TP 1 applic HS SELVIN Administration Diltiazem HCl 90 mg 10/07/17 19:45 10/19/17 12:01 Cardizem - PO 90 mg Q6HPO SELVIN Administration Sodium Chloride 250 mls @ 3,000 mls/hr 10/15/17 09:25 Normal Saline - IV 10/16/17 09:25 PRN PRN Hypotension during Dialysis Insulin Aspart 1 vial 10/18/17 22:00 10/19/17 12:01 Novolog Vial Sliding Scale - SQ 2 units ACHS SELVIN Administration Protocol Insulin Detemir 5 units 10/19/17 11:21 Levemir Vial SQ HS SELVIN Metoprolol Tartrate 5 mg 10/03/17 19:00 10/05/17 17:49 Lopressor Injection - IVPUSH 5 mg Q4H PRN Administration TACHYCARDIA Nystatin 500,000 units 10/18/17 12:00 10/19/17 12:01 Nystatin Oral Suspension - PO 500,000 units Q6HPO SELVIN Administration Pantoprazole Sodium 40 mg 10/14/17 22:00 10/19/17 10:23 Protonix Iv IVPUSH 40 mg BID SELVIN Administration Polyethylene Glycol/Electrolytes 4,000 ml 10/19/17 17:00 Golytely Solution - PO 10/19/17 17:01 ONCE ONE AP; Acute Hypoxic Respiratory Failure s/p Extubation Pneumonia Septic Shock DM with Acidosis ? DKA,?Lactic acidosis Acute on Chronic Renal Failure Paroxysmal Atrial Fibrillation with RVR HTN COPD Ischemic changes left first and 2nd toes GI bleeding s/p transfuison BGM Q4 hr Levemir 5 units daily Decrease Novolog coverage On antibiotics Restart D10 W 42ml/hr, pt is going to be prepared for Colonoscopy with clear liquids which he can't take b/o swallowing issues Chart reviewed Start D10W at 42 ml/hr whenever tube feeding is on hold or discontinued until food intake is adequate. As pt was admitted with acidosis possibly DKA, need to continue to administer long acting Insulin Will f/u
--- NOTE | 2017-10-19 12:57 | PN ---
Progress Note, Physician History of Present Illness: awake alert no distress - Current Medication List Current Medications: Active Medications Acetaminophen (Tylenol -) 650 mg PO Q6H PRN PRN Reason: FEVER Last Admin: 10/19/17 11:08 Dose: 650 mg Acetylcysteine (Mucomyst 20 Oral / Inh Use Only*) 200 mg NEB RQID [facility] Last Admin: 10/18/17 21:34 Dose: 200 mg Albuterol Sulfate (Ventolin 0.083% Nebulizer Soln -) 1 amp NEB RQID [facility] Last Admin: 10/18/17 21:34 Dose: 1 amp Amino Acids (Prosource No Carb Liquid Pkt) 30 ml NGT BID@0800,1730 [facility] Last Admin: 10/19/17 10:23 Dose: 30 ml Chlorhexidine Gluconate (Hibiclens For Decolonization -) 1 applic TP HS [facility] Last Admin: 10/18/17 21:15 Dose: 1 applic Diltiazem HCl (Cardizem -) 90 mg PO Q6HPO [facility] Last Admin: 10/19/17 12:01 Dose: 90 mg Sodium Chloride (Normal Saline -) 250 mls @ 3,000 mls/hr IV PRN PRN PRN Reason: Hypotension during Dialysis Stop: 10/16/17 09:25 Dextrose (D10w -) 1,000 mls @ 42 mls/hr IV ASDIR [facility] Insulin Aspart (Novolog) 0 units SQ Q4H [facility] PRN Reason: Protocol Insulin Detemir (Levemir Vial) 5 units SQ [facility] Metoprolol Tartrate (Lopressor Injection -) 5 mg IVPUSH Q4H PRN PRN Reason: TACHYCARDIA Last Admin: 10/05/17 17:49 Dose: 5 mg Nystatin (Nystatin Oral Suspension -) 500,000 units PO Q6HPO [facility] Last Admin: 10/19/17 12:01 Dose: 500,000 units Pantoprazole Sodium (Protonix Iv) 40 mg IVPUSH BID [facility] Last Admin: 10/19/17 10:23 Dose: 40 mg Polyethylene Glycol/Electrolytes (Golytely Solution -) 4,000 ml PO ONCE ONE Stop: 10/19/17 17:01 - Objective Vital Signs: Vital Signs Temperature 97.7 F 10/19/17 10:00 Pulse Rate 87 10/19/17 12:00 Respiratory Rate 18 10/19/17 12:00 Blood Pressure 121/49 10/19/17 12:00 O2 Sat by Pulse Oximetry (%) 99 10/19/17 09:00 Constitutional: Yes: No Distress, Calm Neck: Yes: Supple Cardiovascular: Yes: Regular Rate and Rhythm, Tachycardia Respiratory: Yes: Regular, Poor Air Entry Gastrointestinal: Yes: Normal Bowel Sounds, Soft Extremities: Yes: WNL Neurological: Yes: Alert Psychiatric: Yes: Alert Labs: CBC, BMP 10/19/17 05:35 10/19/17 05:35 INR, PTT INR 1.16 (0.82-1.09) H 10/15/17 05:46 Assessment/Plan 76 year old male with a significant past medical history of COPD, GI bleed, diverticulosis, HLD, CVA, intussusception, umbilical hernia, DM, HTN, sinus cancer with excision and polypectomy Acute Hypoxic Respiratory Failure Pneumonia Septic Shock Acute on Chronic Renal Failure Lactic Acidosis Diabetic Ketoacidosis improving HTN DM COPD gluteal ulcer discoloration of the toes janene plan continue abx continue close monitoring nutrition monitor wbc rest as per icu xray chest better cc time 40 min
[2017-10-19 13:15] LABS: PHOSPHOROUS 6.9 mg/dL (2.5-4.9)
--- NOTE | 2017-10-19 13:27 | PN ---
Progress Note, Physician History of Present Illness: comfortable. Hemoglobin 6.6. Status post 2 units of PRBC overnight. Melanotic stools were noted yesterday in the morning. No overt signs of ongoing bleeding. Discussed with the patient repeating EGD and colonoscopy. - Current Medication List Current Medications: Active Medications Acetaminophen (Tylenol -) 650 mg PO Q6H PRN PRN Reason: FEVER Last Admin: 10/19/17 11:08 Dose: 650 mg Acetylcysteine (Mucomyst 20 Oral / Inh Use Only*) 200 mg NEB RQID [facility] Last Admin: 10/19/17 12:00 Dose: 200 mg Albuterol Sulfate (Ventolin 0.083% Nebulizer Soln -) 1 amp NEB RQID [facility] Last Admin: 10/19/17 12:00 Dose: 1 amp Amino Acids (Prosource No Carb Liquid Pkt) 30 ml NGT BID@0800,1730 [facility] Last Admin: 10/19/17 10:23 Dose: 30 ml Chlorhexidine Gluconate (Hibiclens For Decolonization -) 1 applic TP [facility] Last Admin: 10/18/17 21:15 Dose: 1 applic Diltiazem HCl (Cardizem -) 90 mg PO Q6HPO [facility] Last Admin: 10/19/17 12:01 Dose: 90 mg Sodium Chloride (Normal Saline -) 250 mls @ 3,000 mls/hr IV PRN PRN PRN Reason: Hypotension during Dialysis Stop: 10/16/17 09:25 Dextrose (D10w -) 1,000 mls @ 42 mls/hr IV ASDIR [facility] Insulin Aspart (Novolog Vial Sliding Scale -) 1 vial SQ Q4H-IV [facility] PRN Reason: Protocol Insulin Detemir (Levemir Vial) 5 units SQ [facility] Metoprolol Tartrate (Lopressor Injection -) 5 mg IVPUSH Q4H PRN PRN Reason: TACHYCARDIA Last Admin: 10/05/17 17:49 Dose: 5 mg Nystatin (Nystatin Oral Suspension -) 500,000 units PO Q6HPO [facility] Last Admin: 10/19/17 12:01 Dose: 500,000 units Pantoprazole Sodium (Protonix Iv) 40 mg IVPUSH BID [facility] Last Admin: 10/19/17 10:23 Dose: 40 mg Polyethylene Glycol/Electrolytes (Golytely Solution -) 4,000 ml PO ONCE ONE Stop: 10/19/17 17:01 - Objective Vital Signs: Vital Signs Temperature 97.7 F 10/19/17 10:00 Pulse Rate 87 10/19/17 12:00 Respiratory Rate 18 10/19/17 12:00 Blood Pressure 121/49 10/19/17 12:00 O2 Sat by Pulse Oximetry (%) 99 10/19/17 09:00 Constitutional: Yes: No Distress, Calm Eyes: Yes: Conjunctiva Clear HENT: Yes: Atraumatic Neck: Yes: Supple Cardiovascular: No: Bradycardia, Tachycardia Respiratory: Yes: Regular Gastrointestinal: Yes: Normal Bowel Sounds, Soft. No: Ascites, Distention, Hematemesis, Tenderness, Tenderness, Rebound, Vomiting Neurological: Yes: Alert Labs: CBC, BMP 10/19/17 05:35 10/19/17 05:35 INR, PTT INR 1.16 (0.82-1.09) H 10/15/17 05:46 Laboratory Last Values WBC 14.6 K/mm3 (4.0-10.0) H 10/19/17 05:35 RBC 2.74 M/mm3 (4.00-5.60) L D 10/19/17 05:35 Hgb 8.4 GM/dL (11.7-16.9) L D 10/19/17 05:35 Hct 24.7 % (35.4-49) L D 10/19/17 05:35 MCV 90.1 fl (80-96) 10/19/17 05:35 MCH 30.8 pg (25.7-33.7) 10/19/17 05:35 MCHC 34.2 g/dl (32.0-35.9) 10/19/17 05:35 RDW 15.7 % (11.9-15.9) 10/19/17 05:35 Plt Count 384 K/MM3 (134-434) 10/19/17 05:35 MPV 8.2 fl (7.5-11.1) 10/19/17 05:35 Total Counted 98 10/09/17 05:50 Neutrophils % 94.0 % (42.8-82.8) H 10/19/17 05:35 Neutrophils % (Manual) 92.9 % (42.8-82.8) H* 10/14/17 05:43 Band Neutrophils % 0.0 % 10/14/17 05:43 Lymphocytes % 1.5 % (8-40) L D 10/19/17 05:35 Lymphocytes % (Manual) 2.0 % (8-40) L D 10/14/17 05:43 Monocytes % 4.0 % (3.8-10.2) 10/19/17 05:35 Monocytes % (Manual) 3 % (3.8-10.2) L 10/14/17 05:43 Eosinophils % 0.1 % (0-4.5) 10/19/17 05:35 Eosinophils % (Manual) 0.0 % (0-4.5) D 10/14/17 05:43 Basophils % 0.4 % (0-2.0) 10/19/17 05:35 Basophils % (Manual) 1.0 % (0-2.0) D 10/14/17 05:43 Myelocytes % (Man) 1 % (0-2) D 10/14/17 05:43 Promyelocytes % (Man) 0 % (0-2) 10/14/17 05:43 Blast Cells % (Manual) 0 % (0-0) 10/14/17 05:43 Nucleated RBC % 0 % (0-0) 10/14/17 05:43 Metamyelocytes 0 % (0-2) 10/14/17 05:43 Hypochromia 1+ 10/07/17 06:05 Toxic Granulation 1+ 10/14/17 05:43 Platelet Estimate Adequate 10/18/17 18:00 Platelet Comment 10/18/17 18:00 Polychromasia Rare 10/18/17 18:00 Poikilocytosis 1+ 10/18/17 18:00 Anisocytosis 1+ 10/18/17 18:00 Microcytosis 1+ 10/06/17 05:50 Macrocytosis 1+ 10/18/17 18:00 Tear Drop Cells 1+ 10/05/17 05:50 Ovalocytes 1+ 10/18/17 18:00 Stomatocytes 1+ 10/14/17 05:43 Felicia Cells 2+ 10/07/17 06:05 Schistocytes 1+ 10/06/17 05:50 PT with INR 13.10 SEC (9.98-11.88) H 10/15/17 05:46 INR 1.16 (0.82-1.09) H 10/15/17 05:46 PTT (Actin FS) 23.7 SECONDS (26.9-34.4) L 10/15/17 05:46 Anticoagulation Therapy No Result Required. 10/07/17 06:30 Puncture Site Left brachial 10/11/17 09:20 Patient Temperature Cancelled 10/05/17 06:50 ABG pH 7.42 (7.35-7.45) 10/11/17 09:20 ABG pCO2 at Pt Temp 40.3 mmHg (35-45) 10/11/17 09:20 ABG pO2 at Pt Temp 120.0 mmHg (70-100) H D 10/11/17 09:20 ABG HCO3 25.6 meq/L (22-26) 10/11/17 09:20 ABG O2 Sat (Measured) 98.4 % (90-98.9) 10/11/17 09:20 ABG O2 Content 10.5 % vol (15-22) L 10/11/17 09:20 ABG Base Excess 1.6 meq/l (-2-2) 10/11/17 09:20 Ra Test Positive 10/11/17 09:20 O2 Delivery Device A/c 10/11/17 09:20 Oxygen Flow Rate 40% 10/11/17 09:20 Vent Mode A/c 10/11/17 09:20 Vent Rate 16 10/11/17 09:20 Mechanical Rate Yes 10/11/17 09:20 PEEP 5.0 cmH2O 10/11/17 09:20 Pressure Support Vent 450 10/11/17 09:20 Sodium 139 mmol/L (136-145) 10/19/17 05:35 Potassium 3.8 mmol/L (3.5-5.1) 10/19/17 05:35 Chloride 103 mmol/L (98-107) 10/19/17 05:35 Carbon Dioxide 28 mmol/L (21-32) 10/19/17 05:35 Anion Gap 8 (8-16) 10/19/17 05:35 BUN 73 mg/dL (7-18) H 10/19/17 05:35 Creatinine 3.8 mg/dL (0.7-1.3) H 10/19/17 05:35 Creat Clearance w eGFR 19.58 (>60) 10/15/17 05:46 POC Glucometer 143.59049 UNITS (80-120) 10/19/17 05:36 Random Glucose 119 mg/dL (74-106) H D 10/19/17 05:35 Hemoglobin A1c % 8.5 % (4.8-6.0) H D 10/04/17 06:00 Lactic Acid 2.0 mmol/L (0.0-2.0) 10/03/17 12:00 Calcium 7.1 mg/dL (8.5-10.1) L 10/19/17 05:35 Phosphorus 6.9 mg/dL (2.5-4.9) H D 10/19/17 05:35 Magnesium 2.0 mg/dL (1.8-2.4) 10/19/17 05:35 Iron 22 ug/dL (38-169) L 10/06/17 05:50 Ferritin 202.816 ng/ml (16.4-293.9) 10/06/17 05:50 Total Bilirubin 0.2 mg/dL (0.2-1.0) D 10/15/17 05:46 AST 21 U/L (15-37) D 10/15/17 05:46 ALT 15 U/L (12-78) D 10/15/17 05:46 Alkaline Phosphatase 74 U/L (45-117) 10/15/17 05:46 Total Protein 4.6 g/dl (6.4-8.2) L 10/15/17 05:46 Albumin 1.2 g/dl (3.4-5.0) L 10/15/17 05:46 Vitamin B12 1602 pg/ml (180-914) H 10/06/17 05:50 Serum Folate 23 ng/ml (3.1-17.5) H 10/06/17 05:50 Urine Color Linh 10/03/17 10:32 Urine Appearance Turbid 10/03/17 10:32 Urine pH 5.0 (5.0-8.0) 10/03/17 10:32 Ur Specific Ovid 1.016 (1.001-1.035) 10/03/17 10:32 Urine Protein 2+ (NEGATIVE) H 10/03/17 10:32 Urine Glucose (UA) 2+ (NEGATIVE) H 10/03/17 10:32 Urine Ketones Trace (NEGATIVE) H 10/03/17 10:32 Urine Blood Negative (NEGATIVE) 10/03/17 10:32 Urine Nitrite Negative (NEGATIVE) 10/03/17 10:32 Urine Bilirubin Negative (<2.0 mg/dL) 10/03/17 10:32 Urine Urobilinogen Negative mg/dL (0.2-1.0) 10/03/17 10:32 Ur Leukocyte Esterase Negative (NEGATIVE) 10/03/17 10:32 Urine WBC (Auto) 6 /hpf (3-5) 10/03/17 10:32 Urine RBC (Auto) 4 /hpf (0-3) 10/03/17 10:32 Ur Epithelial Cells Rare /HPF (FEW) 10/03/17 10:32 Hyaline Casts 18 /lpf 10/03/17 10:32 Granular Casts 18 /lpf 10/03/17 10:32 Stool Occult Blood Positive (NEGATIVE) 10/12/17 18:30 Alcohol, Quantitative < 5.0 mg/dL (0.0-5.0) 10/02/17 23:32 Acetone, Qual Trace (NEGATIVE) 10/02/17 23:32 Hepatitis A Ab Total Negative (Negative) 10/07/17 17:30 Hep Bs Antigen Negative (Negative) 10/07/17 17:30 Hep Bs Antibody Non reactive (.) 10/07/17 17:30 Hep B Core Total Ab Negative (Negative) 10/07/17 17:30 Hep C Ab Diagnostic <0.1 s/co ratio (0.0-0.9) 10/07/17 17:30 Liver Fibrosis Interp (.) 10/07/17 17:30 Blood Type O NEGATIVE 10/18/17 20:10 Antibody Screen Negative 10/18/17 20:10 Crossmatch See Detail 10/18/17 20:10 Problem List - Problems (1) Angiectasia Code(s): I99.8 - OTHER DISORDER OF CIRCULATORY SYSTEM (2) AVM (arteriovenous malformation) of colon Code(s): Q27.33 - ARTERIOVENOUS MALFORMATION OF DIGESTIVE SYSTEM VESSEL (3) AVM (arteriovenous malformation) of colon with hemorrhage Code(s): Q27.33 - ARTERIOVENOUS MALFORMATION OF DIGESTIVE SYSTEM VESSEL (4) Afib Code(s): I48.91 - UNSPECIFIED ATRIAL FIBRILLATION (5) DKA (diabetic ketoacidoses) Code(s): E13.10 - OTH DIABETES MELLITUS WITH KETOACIDOSIS WITHOUT COMA (6) Ischemia of lower extremity Code(s): I99.8 - OTHER DISORDER OF CIRCULATORY SYSTEM Assessment/Plan History of or colonic AVM. Requires blood transfusion. No overt bleeding at the time of this encounter. Vital signs are normal. Patient is comfortable. For EGD and colonoscopy as discussed with the patient and ICU team.
--- NOTE | 2017-10-19 13:27 | PN ---
Progress Note (short form) - Note Progress Note: Chief Complaint: resp arrest History of Present Illness: + dark stool yesterday with hgb drop and PRBC transfusion. Brief (5 min) pisode of intermittent bradycardia overnight with intermittent dropped qrs complexes and runs of ventricular escape rhythm, no recurrence. Confused, anxious. has no sob or cp no palp, leg swelling Current Medications Acetaminophen (Tylenol -) 650 mg PO Q6H PRN PRN Reason: FEVER Last Admin: 10/19/17 11:08 Dose: 650 mg Acetylcysteine (Mucomyst 20 Oral / Inh Use Only*) 200 mg NEB RQID [facility] Last Admin: 10/19/17 12:00 Dose: 200 mg Albuterol Sulfate (Ventolin 0.083% Nebulizer Soln -) 1 amp NEB RQID [facility] Last Admin: 10/19/17 12:00 Dose: 1 amp Amino Acids (Prosource No Carb Liquid Pkt) 30 ml NGT BID@0800,1730 [facility] Last Admin: 10/19/17 10:23 Dose: 30 ml Chlorhexidine Gluconate (Hibiclens For Decolonization -) 1 applic TP HS [facility] Last Admin: 10/18/17 21:15 Dose: 1 applic Diltiazem HCl (Cardizem -) 90 mg PO Q6HPO [facility] Last Admin: 10/19/17 12:01 Dose: 90 mg Sodium Chloride (Normal Saline -) 250 mls @ 3,000 mls/hr IV PRN PRN PRN Reason: Hypotension during Dialysis Stop: 10/16/17 09:25 Dextrose (D10w -) 1,000 mls @ 42 mls/hr IV ASDIR [facility] Insulin Aspart (Novolog Vial Sliding Scale -) 1 vial SQ Q4H-IV [facility] PRN Reason: Protocol Insulin Detemir (Levemir Vial) 5 units SQ HS [facility] Metoprolol Tartrate (Lopressor Injection -) 5 mg IVPUSH Q4H PRN PRN Reason: TACHYCARDIA Last Admin: 10/05/17 17:49 Dose: 5 mg Nystatin (Nystatin Oral Suspension -) 500,000 units PO Q6HPO [facility] Last Admin: 10/19/17 12:01 Dose: 500,000 units Pantoprazole Sodium (Protonix Iv) 40 mg IVPUSH BID [facility] Last Admin: 10/19/17 10:23 Dose: 40 mg Polyethylene Glycol/Electrolytes (Golytely Solution -) 4,000 ml PO ONCE ONE Stop: 10/19/17 17:01 - Objective Vital Signs: Vital Signs - 24 hr 10/18/17 10/18/17 10/18/17 14:00 16:00 16:26 Temperature 97.8 F Pulse Rate 83 92 H Respiratory 21 18 Rate Blood Pressure 112/55 102/54 O2 Sat by Pulse 99 Oximetry (%) 10/18/17 10/18/17 10/18/17 17:53 18:00 20:00 Temperature 97.6 F Pulse Rate 92 H 89 Respiratory 24 23 Rate Blood Pressure 124/57 104/57 O2 Sat by Pulse 100 Oximetry (%) 10/18/17 10/18/17 10/19/17 20:25 22:00 00:00 Temperature 98 F Pulse Rate 90 87 Respiratory 25 H 22 Rate Blood Pressure 112/48 112/51 O2 Sat by Pulse 100 Oximetry (%) 10/19/17 10/19/17 10/19/17 02:00 04:00 06:00 Temperature 97.8 F 98.2 F Pulse Rate 80 68 75 Respiratory 31 H 24 25 H Rate Blood Pressure 120/48 126/49 154/47 O2 Sat by Pulse Oximetry (%) 10/19/17 10/19/17 10/19/17 08:00 09:00 10:00 Temperature 97.7 F Pulse Rate 79 80 Respiratory 22 21 Rate Blood Pressure 131/46 120/67 O2 Sat by Pulse 99 Oximetry (%) 10/19/17 12:00 Temperature Pulse Rate 87 Respiratory 18 Rate Blood Pressure 121/49 O2 Sat by Pulse Oximetry (%) Intake & Output 10/17/17 10/18/17 10/19/17 10/20/17 07:59 07:59 07:59 07:59 Intake Total 956 1724 1074 200 Output Total 1250 1650 1000 Balance -294 74 74 200 Weight 119 lb 8 oz 120 lb 14.4 oz 121 lb Constitutional: Yes: ++ cachectic, anxious Cardiovascular: Yes: Regular Rate and Rhythm, Murmur (EMMA rusb), S1, S2. No: JVD, Gallop Respiratory: Yes: Regular, CTA Bilaterally (decr sounds R). No: Accessory Muscle Use, Rales, Wheezes Extremities: No: Cold Edema: No Neurological: Yes: Alert, not oriented. No: Seizure Psychiatric: No: Agitated Labs: CBC, BMP 10/19/17 05:35 10/19/17 05:35 Assessment/Plan Echo 06/2017: mod lvh. nl lv fn. nl rv size/fn. 1+ lae. mod-sev mac with mod ms. 1+ mr. nl rvsp. 1+ ao dilation (no or AI) tele: NSR, no fib. 5 min episode of bradycardia with intermittent dropped qrs complexes and intermittent runs of ventricular escape. A/P 76 yo with pmhx of htn, hl, pad, afib (not on AC due to GIB), cva (no residual deficits), copd, dm, mgus, esthesioneuroblastoma treated with radiation therapy , chronic anemia s/p recent GIB admitted with dka, sepsis, resp failure. Hospital course now complicated by episode of afib with rvr afib - not previously a candidate for AC b/c of prior hx of GIB. remains anemic with melena here as well. - s/p IV amio. started po dilt 10/05. now back in sr. hr controlled. - off Amio, remains in sinus. BPs soft but tolerating diltiazem hi dose (90mg q6H)--continue same for now - change to cardizem CD regimen once bp's clearly out of the ngo as far as hypotension - hgb drifted down once ASA resumed--now d/c'd. not a candidate for AC at this time as risks of serious bleeding are > benefits - remains in SR, bp thus far tolerating diltiazem at present dose - 10/19: episode of bradycardia with intermittent dropped qrs complexes and runs of ventricular escape. Will decrease diltiazem to 60 mg q6h. Observe for recurrence of RVR. mitral stenosis: - aggressive control of afib to prevent tachycardia-->CHF as doing - defer amio for now, may have to reconsider if recurrent rapid AF despite sepsis/PNA complete resolution PNA with septic shock, resp failure - off phenylephrine as of AM 10/11, hemodynamically stable currently - cont ICU monitoring - extubated 10/12, remains stable resp status - white out R lung on cxr--per crit care anemia, GI bleeding: - ongoing UGIB here with stool guaiac + (iker hgb 6.1) - s/p PRBCs, last on 10/18 - counts stable htn - home meds changed to diltiazem here for PAF rate control - bp stable cva/pad - con't statin. - per pmd, previously not a candidate for asa due to recent gib and anemia. hgb drifting down on asa here, held again mild asc ao dilation - can consider switching to beta car once resp issues resolve. SHANTA - renal following, no sig improvement --> initiated HD 10/07. - currently monitoring off HD.
[2017-10-19] MEDS ORDERED: INSULIN SLIDING SCALE (NOVOLOG) 1 VIAL SQ SCH (14:00)
[2017-10-19] MEDS: DEXTROSE 10%-WATER - 1,000 ML IV SCH (14:26)
[2017-10-19] MEDS ORDERED: HEMOQUE TEST 1 EACH EACH ONE (14:51)
[2017-10-19] MEDS ORDERED: PT OWN MED DRAWER 7, Y5N ONE (14:57)
--- NOTE | 2017-10-19 15:41 | PN ---
Progress Note (short form) - Note Progress Note: Renal follow up for SHANTA Pt seen and examined in the ICU awake and alert no acute complaints making urine no sob, chest pain CXR is improved Vital Signs Temperature 97.8 F 10/19/17 14:00 Pulse Rate 88 10/19/17 14:00 Respiratory Rate 22 10/19/17 14:00 Blood Pressure 117/45 10/19/17 14:00 O2 Sat by Pulse Oximetry (%) 99 10/19/17 09:00 Intake & Output 10/16/17 10/17/17 10/18/17 10/19/17 23:59 23:59 23:59 23:59 Intake Total 1052 1730 1268 300 Output Total 1300 1805 646 4392 Balance -248 -170 568 -1000 Weight 55.248 kg 54.204 kg 54.839 kg 54.885 kg NAD RRR, No M/R Dec BS at lung bases soft NT/ND No LE edema, clubbing or cyanosis heels in dressing CBC, BMP 10/19/17 05:35 10/19/17 05:35 Current Medications Acetaminophen (Tylenol -) 650 mg PO Q6H PRN PRN Reason: FEVER Last Admin: 10/19/17 11:08 Dose: 650 mg Acetylcysteine (Mucomyst 20 Oral / Inh Use Only*) 200 mg NEB RQID [facility] Last Admin: 10/19/17 12:00 Dose: 200 mg Albuterol Sulfate (Ventolin 0.083% Nebulizer Soln -) 1 amp NEB RQID [facility] Last Admin: 10/19/17 12:00 Dose: 1 amp Amino Acids (Prosource No Carb Liquid Pkt) 30 ml NGT BID@0800,1730 [facility] Last Admin: 10/19/17 10:23 Dose: 30 ml Chlorhexidine Gluconate (Hibiclens For Decolonization -) 1 applic TP HS [facility] Last Admin: 10/18/17 21:15 Dose: 1 applic Diltiazem HCl (Cardizem -) 90 mg PO Q6HPO [facility] Last Admin: 10/19/17 12:01 Dose: 90 mg Sodium Chloride (Normal Saline -) 250 mls @ 3,000 mls/hr IV PRN PRN PRN Reason: Hypotension during Dialysis Stop: 10/16/17 09:25 Dextrose (D10w -) 1,000 mls @ 42 mls/hr IV ASDIR [facility] Last Admin: 10/19/17 14:26 Dose: 42 mls/hr Insulin Aspart (Novolog Vial Sliding Scale -) 1 vial SQ Q4H-IV [facility] PRN Reason: Protocol Last Admin: 10/19/17 15:00 Dose: 3 units Insulin Detemir (Levemir Vial) 5 units SQ HS [facility] Metoprolol Tartrate (Lopressor Injection -) 5 mg IVPUSH Q4H PRN PRN Reason: TACHYCARDIA Last Admin: 10/05/17 17:49 Dose: 5 mg Nystatin (Nystatin Oral Suspension -) 500,000 units PO Q6HPO [facility] Last Admin: 10/19/17 12:01 Dose: 500,000 units Pantoprazole Sodium (Protonix Iv) 40 mg IVPUSH BID [facility] Last Admin: 10/19/17 10:23 Dose: 40 mg Polyethylene Glycol/Electrolytes (Golytely Solution -) 4,000 ml PO ONCE ONE Stop: 10/19/17 17:01 76 year old male with a significant past medical history of COPD, GI bleed, diverticulosis, HLD, CVA, intussusception, umbilical hernia, DM, HTN, sinus cancer with excision and polypectomy who presents to the ED, accompanied by , s/p high blood sugar levels earlier today. 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
[2017-10-19 16:57] LABS: BASO % 0.2 % (0-2.0); EOS % 0.1 % (0-4.5); HEMATOCRIT 24.4 % (35.4-49); HEMOGLOBIN 8.2 GM/dL (11.7-16.9); LYMPH % 2.8 % (8-40); MCH 30.3 pg (25.7-33.7); MCHC 33.5 g/dl (32.0-35.9); MEAN CELL VOLUME 90.3 fl (80-96); MEAN PLT VOLUME 8.3 fl (7.5-11.1); MONO % 3.6 % (3.8-10.2); NEUT % 93.3 % (42.8-82.8); PLATELET COUNT 400 K/MM3 (134-434); RDW 15.8 % (11.9-15.9); WHITE BLOOD COUNT 15.5 K/mm3 (4.0-10.0)
[2017-10-19] MEDS ORDERED: PEG 3350/NA SULF BICARB CL/KCL 4000 ML SOLN.RECON PO ONE (17:00)
[2017-10-19] MEDS: CHLORHEXIDINE GLUCONATE 4% CLEANSER FOR DECOLONIZATION TP SCH (21:02)
[2017-10-19] MEDS: INSULIN (LEVEMIR) 100 UNITS/ML UNITS SQ SCH (21:26)
[2017-10-20] MEDS: dilTIAZem HCL 30 MG TABLET (FP) PO SCH ×4 (00:18→17:46)
[2017-10-20] MEDS: NYSTATIN 500,000 UNITS/5 ML SUSPENSION PO SCH ×4 (00:18→17:46)
[2017-10-20] MEDS: INSULIN SLIDING SCALE (NOVOLOG) 1 VIAL SQ SCH ×6 (02:17→22:26)
[2017-10-20 06:57] LABS: ALBUMIN 1.4 g/dl (3.4-5.0); ALK PHOS 96 U/L (45-117); ANION GAP 9 (8-16); BILIRUBIN,TOTAL 0.2 mg/dL (0.2-1.0); BLOOD UREA NITROGEN 78 mg/dL (7-18); CHLORIDE 100 mmol/L (98-107); CO2 27 mmol/L (21-32); CREATININE 3.9 mg/dL (0.7-1.3); GLUCOSE,RANDOM 270 mg/dL (74-106); MAGNESIUM 1.8 mg/dL (1.8-2.4); PHOSPHOROUS 6.2 mg/dL (2.5-4.9); SGOT/AST 14 U/L (15-37); SGPT/ALT < 6 U/L (12-78); SODIUM 136 mmol/L (136-145); TOT PROT 5.1 g/dl (6.4-8.2)
[2017-10-20] MEDS: AMINO ACIDS/PROTEIN HYDROLYS 30 ML LIQUID.PKT NGT SCH ×2 (07:16→17:46)
[2017-10-20] MEDS: ACETYLCYSTEINE 20% 200MG/ML 4 ML VIAL *FOR ORAL / INH USE ONLY NEB SCH ×4 (07:51→22:06)
[2017-10-20] MEDS: ALBUTEROL SO4 0.083% IH SOL 2.5 MG/3 ML VIAL.NEB. NEB SCH ×4 (07:51→22:06)
[2017-10-20] MEDS: PANTOPRAZOLE SODIUM 40 MG VIAL IVPUSH SCH ×2 (09:03→22:26)
--- NOTE | 2017-10-20 09:05 | PN ---
Progress Note (short form) - Note Progress Note: Awake, Eyes open, in NAD Awaiting EGD and Colonoscopy On D10W Vital Signs Period Temp Pulse Resp BP Sys/Sy Pulse Ox Last 24 Hr 97.7 F-98.9 F 76-101 18-24 113-132/45-87 98-98 PE: , awake, alert Neck: supple Lungs: few rhonchi CVS: S1S2 Abd: Benign Ext: No edema, dusky coloration left 1st and 2nd toes Neuro: Awake, open eyes, CMP Sodium 139 mmol/L (136-145) 10/19/17 05:35 Potassium 3.8 mmol/L (3.5-5.1) 10/19/17 05:35 Chloride 103 mmol/L (98-107) 10/19/17 05:35 Carbon Dioxide 28 mmol/L (21-32) 10/19/17 05:35 Anion Gap 8 (8-16) 10/19/17 05:35 BUN 73 mg/dL (7-18) H 10/19/17 05:35 Creatinine 3.8 mg/dL (0.7-1.3) H 10/19/17 05:35 Creat Clearance w eGFR 19.58 (>60) 10/15/17 05:46 POC Glucometer 143.58112 UNITS (80-120) 10/19/17 05:36 Random Glucose 119 mg/dL (74-106) H D 10/19/17 05:35 Hemoglobin A1c % 8.5 % (4.8-6.0) H D 10/04/17 06:00 Lactic Acid 2.0 mmol/L (0.0-2.0) 10/03/17 12:00 Calcium 7.1 mg/dL (8.5-10.1) L 10/19/17 05:35 Phosphorus 6.9 mg/dL (2.5-4.9) H D 10/19/17 05:35 Magnesium 2.0 mg/dL (1.8-2.4) 10/19/17 05:35 Iron 22 ug/dL (38-169) L 10/06/17 05:50 Ferritin 202.816 ng/ml (16.4-293.9) 10/06/17 05:50 Total Bilirubin 0.2 mg/dL (0.2-1.0) D 10/15/17 05:46 AST 21 U/L (15-37) D 10/15/17 05:46 ALT 15 U/L (12-78) D 10/15/17 05:46 Alkaline Phosphatase 74 U/L (45-117) 10/15/17 05:46 Total Protein 4.6 g/dl (6.4-8.2) L 10/15/17 05:46 Albumin 1.2 g/dl (3.4-5.0) L 10/15/17 05:46 Vitamin B12 1602 pg/ml (180-914) H 10/06/17 05:50 Serum Folate 23 ng/ml (3.1-17.5) H 10/06/17 05:50 Current Medications Generic Name Dose Route Start Last Admin Trade Name Freq PRN Reason Stop Dose Admin Acetaminophen 650 mg 10/09/17 05:40 10/19/17 11:08 Tylenol - PO 650 mg Q6H PRN Administration FEVER Acetylcysteine 200 mg 10/18/17 12:00 10/20/17 07:51 Mucomyst 20 Oral / Inh Use Only* NEB 200 mg RQID [facility]ELVIN Administration Albuterol Sulfate 1 amp 10/18/17 12:00 10/20/17 07:51 Ventolin 0.083% Nebulizer Soln - NEB 1 amp RQID [facility]ELVIN Administration Amino Acids 30 ml 10/13/17 17:30 10/20/17 07:16 Prosource No Carb Liquid Pkt NGT Not Given BID@0800,1730 [facility] Chlorhexidine Gluconate 1 applic 10/03/17 22:00 10/19/17 21:02 Hibiclens For Decolonization - TP 1 applic HS [facility]IN Administration Diltiazem HCl 60 mg 10/20/17 00:00 10/20/17 05:57 Cardizem - PO Not Given Q6HPO [facility] Sodium Chloride 250 mls @ 3,000 mls/hr 10/15/17 09:25 Normal Saline - IV 10/16/17 09:25 PRN PRN Hypotension during Dialysis Dextrose 1,000 mls @ 42 mls/hr 10/19/17 12:45 10/19/17 14:26 D10w - IV 42 mls/hr ASDIR [facility]EL[facility] Administration Insulin Aspart 1 vial 10/19/17 18:00 10/20/17 06:19 Novolog Vial Sliding Scale - SQ 4 units Q4HPO SELVIN Administration Protocol Insulin Detemir 5 units 10/19/17 11:21 10/19/17 21:26 Levemir Vial SQ 5 units HS [facility] Administration Metoprolol Tartrate 5 mg 10/03/17 19:00 10/05/17 17:49 Lopressor Injection - IVPUSH 5 mg Q4H PRN Administration TACHYCARDIA Nystatin 500,000 units 10/18/17 12:00 10/20/17 05:57 Nystatin Oral Suspension - PO Not Given Q6HPO [facility] Pantoprazole Sodium 40 mg 10/14/17 22:00 10/20/17 09:03 Protonix Iv IVPUSH 40 mg BID [facility]EL[facility]IN Administration AP; Acute Hypoxic Respiratory Failure s/p Extubation Pneumonia Septic Shock DM with Acidosis ? DKA,?Lactic acidosis Acute on Chronic Renal Failure Paroxysmal Atrial Fibrillation with RVR HTN COPD Ischemic changes left first and 2nd toes GI bleeding s/p transfuison Awaiting EGD and Colonoscopy BGM Q4 hr Levemir 5 units daily Continue Novolog coverage Chart reviewed Start D10W at 42 ml/hr whenever tube feeding is on hold or discontinued until food intake is adequate. As pt was admitted with acidosis possibly DKA, need to continue to administer long acting Insulin Will f/u
--- NOTE | 2017-10-20 09:08 | PN ---
Progress Note (short form) - Note Progress Note: Patient seen and examined. He still remains alert. No acute events overnight but hemoglobin is slowly drifting down below 8 gm. Has large brown movement this morning so prep will be repeated today and endoscopy delayed until patient is still agreeable to the procedure. Today is a day for dialysis. Patient revisited by speech therapist and will need modified barium study when more stable. Vital signs stable. Exam: Vital Signs Temp 99.3 F 10/20/17 11:00 Pulse 101 H 10/20/17 11:00 Resp 20 10/20/17 11:00 BP 122/66 10/20/17 11:00 Pulse Ox 98 10/20/17 08:30 Intake & Output 10/19/17 10/20/17 10/20/17 23:59 11:59 23:59 Intake Total 240 Output Total 1400 500 Balance -1160 -500 Weight 122 lb 9.6 oz Intake: Tube Irrigant 240 Output: Urine 1400 500 [place] 1400 500 Other: Voiding Method Indwelling Catheter Indwelling Catheter Bowel Movement No Weight Measurement Method Built in [facility] patient remains alert Chest decreased breath sounds with a rare rhonchi but no wheezes. Heart tachycardia. Abdomen flat with increased bowel sounds; only mild discomfort to palpation. Extremities no edema. Ischemic toes left side remained with darkened discoloration especially at the nail line. Abnormal Lab Results 10/19/17 10/19/17 10/20/17 05:35 16:00 05:35 WBC 15.5 H 12.4 H RBC 2.70 L 2.56 L Hgb 8.2 L 7.7 L Hct 24.4 L 23.2 L Neutrophils % 93.3 H 90.0 H Lymphocytes % 2.8 L D 3.6 L D Monocytes % 3.6 L BUN Creatinine Random Glucose Calcium Phosphorus 6.9 H D AST ALT Total Protein Albumin 10/20/17 05:35 WBC RBC Hgb Hct Neutrophils % Lymphocytes % Monocytes % BUN 78 H Creatinine 3.9 H Random Glucose 270 H D Calcium 6.9 L* Phosphorus 6.2 H AST 14 L D ALT < 6 L D Total Protein 5.1 L Albumin 1.4 L impression: GI bleed Acute blood loss anemia. History of diverticulosis. Acute Pneumonia with sepsis. uncontrolled diabetes mellitus. Acute on chronic renal failure. Peripheral vascular disease. 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 Plan: Repeat bowel prep today. Followup lab CBC Appreciate current consultants followup Bedside range of motion
[2017-10-20 09:17] LABS: BASO % 0.6 % (0-2.0); EOS % 0.4 % (0-4.5); HEMATOCRIT 23.2 % (35.4-49); HEMOGLOBIN 7.7 GM/dL (11.7-16.9); LYMPH % 3.6 % (8-40); MCH 30.3 pg (25.7-33.7); MCHC 33.4 g/dl (32.0-35.9); MEAN CELL VOLUME 90.7 fl (80-96); MEAN PLT VOLUME 8.1 fl (7.5-11.1); MONO % 5.4 % (3.8-10.2); PLATELET COUNT 380 K/MM3 (134-434); RBC 2.56 M/mm3 (4.00-5.60); RDW 15.9 % (11.9-15.9); WHITE BLOOD COUNT 12.4 K/mm3 (4.0-10.0)
[2017-10-20 09:20] LABS: CALCIUM 6.9 mg/dL (8.5-10.1)
--- NOTE | 2017-10-20 10:56 | PN ---
Teaching Attending Note Name of Resident: Curt Caputo ATTENDING PHYSICIAN STATEMENT I saw and evaluated the patient. I reviewed the resident's note and discussed the case with the resident. I agree with the resident's findings and plan as documented. SUBJECTIVE: Pt seen and examined in the ICU. Dark tarry stools this AM. Denies abdominal pain, shortness of breath or chest pain. H/H low this AM. Good urine output. OBJECTIVE: Last Vital Signs Temp Pulse Resp BP Pulse Ox 98.4 F 98 H 22 121/59 98 10/20/17 06:00 10/20/17 10:26 10/20/17 10:26 10/20/17 10:26 10/20/17 08:30 Intake & Output 10/17/17 10/18/17 10/19/17 10/20/17 23:59 23:59 23:59 23:59 Intake Total 1730 1268 540 Output Total 5857 288 4319 500 Balance -170 568 -1360 -500 Weight 54.204 kg 54.839 kg 54.885 kg 55.61 kg Gen: mildly tachypneic at rest Heart: RRR Lung: scattered rhonchi Abd: soft, nontender Ext: decreasing edema CBC, BMP 10/20/17 05:35 10/20/17 05:35 Active Medications Acetaminophen (Tylenol -) 650 mg PO Q6H PRN PRN Reason: FEVER Last Admin: 10/19/17 11:08 Dose: 650 mg Acetylcysteine (Mucomyst 20 Oral / Inh Use Only*) 200 mg NEB RQID [facility] Last Admin: 10/20/17 07:51 Dose: 200 mg Albuterol Sulfate (Ventolin 0.083% Nebulizer Soln -) 1 amp NEB RQID [facility] Last Admin: 10/20/17 07:51 Dose: 1 amp Amino Acids (Prosource No Carb Liquid Pkt) 30 ml NGT BID@0800,1730 [facility] Last Admin: 10/20/17 07:16 Dose: Not Given Chlorhexidine Gluconate (Hibiclens For Decolonization -) 1 applic TP HS [facility] Last Admin: 10/19/17 21:02 Dose: 1 applic Diltiazem HCl (Cardizem -) 60 mg PO Q6HPO [facility] Last Admin: 10/20/17 05:57 Dose: Not Given Sodium Chloride (Normal Saline -) 250 mls @ 3,000 mls/hr IV PRN PRN PRN Reason: Hypotension during Dialysis Stop: 10/16/17 09:25 Dextrose (D10w -) 1,000 mls @ 42 mls/hr IV ASDIR [facility] Last Admin: 10/19/17 14:26 Dose: 42 mls/hr Insulin Aspart (Novolog Vial Sliding Scale -) 1 vial SQ Q4HPO [facility] PRN Reason: Protocol Last Admin: 10/20/17 06:19 Dose: 4 units Insulin Detemir (Levemir Vial) 5 units SQ HS [facility] Last Admin: 10/19/17 21:26 Dose: 5 units Metoprolol Tartrate (Lopressor Injection -) 5 mg IVPUSH Q4H PRN PRN Reason: TACHYCARDIA Last Admin: 10/05/17 17:49 Dose: 5 mg Nystatin (Nystatin Oral Suspension -) 500,000 units PO Q6HPO [facility] Last Admin: 10/20/17 05:57 Dose: Not Given Pantoprazole Sodium (Protonix Iv) 40 mg IVPUSH BID [facility] Last Admin: 10/20/17 09:03 Dose: 40 mg ASSESSMENT AND PLAN: Acute Hypoxic Respiratory Failure improving Pneumonia Septic Shock resolving Acute on Chronic Renal Failure requiring HD Lactic Acidosis resolved Diabetic Ketoacidosis improving Paroxysmal Atrial Fibrillation with RVR GI bleed HTN DM COPD - monitor H/H - transfuse as needed - for endoscopy/colonoscopy - monitoring off antibiotics - HD per renal - monitor urine output, creatinine - monitor I/Os - may need permacath - glucose control - rate control - holding anticoagulation due to suspected GI bleed - taper FiO2 to keep SpO2 >90% - monitoring off pressors - swallow eval - aspiration precautions - DVT/GI prophylaxis - continue ICU monitoring critical care time spent in reviewing chart, evaluating patient and formulating plan 35 min
--- NOTE | 2017-10-20 11:00 | PN ---
Progress Note, Physician History of Present Illness: No acute events. Bowel prep completed, however think, brown stools reported this am. - Current Medication List Current Medications: Active Medications Acetaminophen (Tylenol -) 650 mg PO Q6H PRN PRN Reason: FEVER Last Admin: 10/19/17 11:08 Dose: 650 mg Acetylcysteine (Mucomyst 20 Oral / Inh Use Only*) [address] [facility] Last Admin: 10/20/17 07:51 Dose: 200 mg Albuterol Sulfate (Ventolin 0.083% Nebulizer Soln -) [address] [facility] Last Admin: 10/20/17 07:51 Dose: 1 amp Amino Acids (Prosource No Carb Liquid Pkt) 30 ml NGT BID@0800,1730 [facility] Last Admin: 10/20/17 07:16 Dose: Not Given Chlorhexidine Gluconate (Hibiclens For Decolonization -) 1 applic TP [facility] Last Admin: 10/19/17 21:02 Dose: 1 applic Diltiazem HCl (Cardizem -) [address] [facility] Last Admin: 10/20/17 05:57 Dose: Not Given Sodium Chloride (Normal Saline -) 250 mls @ 3,000 mls/hr IV PRN PRN PRN Reason: Hypotension during Dialysis Stop: 10/16/17 09:25 Dextrose (D10w -) 1,000 mls @ 42 mls/hr IV ASDIR [facility] Last Admin: 10/19/17 14:26 Dose: 42 mls/hr Insulin Aspart (Novolog Vial Sliding Scale -) [address] [facility] PRN Reason: Protocol Last Admin: 10/20/17 06:19 Dose: 4 units Insulin Detemir (Levemir Vial) [address] [facility] Last Admin: 10/19/17 21:26 Dose: 5 units Metoprolol Tartrate (Lopressor Injection -) 5 mg IVPUSH Q4H PRN PRN Reason: TACHYCARDIA Last Admin: 10/05/17 17:49 Dose: 5 mg Nystatin (Nystatin Oral Suspension -) 500,[address] [facility] Last Admin: 10/20/17 05:57 Dose: Not Given Pantoprazole Sodium (Protonix Iv) [address] [facility] Last Admin: 10/20/17 09:03 Dose: 40 mg - Objective Vital Signs: Vital Signs Temperature 98.4 F 10/20/17 06:00 Pulse Rate 98 H 10/20/17 10:26 Respiratory Rate 22 10/20/17 10:26 Blood Pressure 121/59 10/20/17 10:26 O2 Sat by Pulse Oximetry (%) 98 10/20/17 08:30 Constitutional: Yes: Calm Eyes: Yes: Conjunctiva Clear HENT: Yes: Atraumatic Neck: Yes: Supple Cardiovascular: No: Bradycardia, Tachycardia Respiratory: Yes: Regular Gastrointestinal: Yes: Soft. No: Distention, Rectal Bleeding, Tenderness, Vomiting Neurological: Yes: Alert Labs: CBC, BMP 10/20/17 05:35 10/20/17 05:35 INR, PTT INR 1.16 (0.82-1.09) H 10/15/17 05:46 Laboratory Last Values WBC 12.4 K/mm3 (4.0-10.0) H 10/20/17 05:35 RBC 2.56 M/mm3 (4.00-5.60) L 10/20/17 05:35 Hgb 7.7 GM/dL (11.7-16.9) L 10/20/17 05:35 Hct 23.2 % (35.4-49) L 10/20/17 05:35 MCV 90.7 fl (80-96) 10/20/17 05:35 MCH 30.3 pg (25.7-33.7) 10/20/17 05:35 MCHC 33.4 g/dl (32.0-35.9) 10/20/17 05:35 RDW 15.9 % (11.9-15.9) 10/20/17 05:35 Plt Count 380 K/MM3 (134-434) 10/20/17 05:35 MPV 8.1 fl (7.5-11.1) 10/20/17 05:35 Total Counted 98 10/09/17 05:50 Neutrophils % 90.0 % (42.8-82.8) H 10/20/17 05:35 Neutrophils % (Manual) 92.9 % (42.8-82.8) H* 10/14/17 05:43 Band Neutrophils % 0.0 % 10/14/17 05:43 Lymphocytes % 3.6 % (8-40) L D 10/20/17 05:35 Lymphocytes % (Manual) 2.0 % (8-40) L D 10/14/17 05:43 Monocytes % 5.4 % (3.8-10.2) 10/20/17 05:35 Monocytes % (Manual) 3 % (3.8-10.2) L 10/14/17 05:43 Eosinophils % 0.4 % (0-4.5) D 10/20/17 05:35 Eosinophils % (Manual) 0.0 % (0-4.5) D 10/14/17 05:43 Basophils % 0.6 % (0-2.0) 10/20/17 05:35 Basophils % (Manual) 1.0 % (0-2.0) D 10/14/17 05:43 Myelocytes % (Man) 1 % (0-2) D 10/14/17 05:43 Promyelocytes % (Man) 0 % (0-2) 10/14/17 05:43 Blast Cells % (Manual) 0 % (0-0) 10/14/17 05:43 Nucleated RBC % 0 % (0-0) 10/14/17 05:43 Metamyelocytes 0 % (0-2) 10/14/17 05:43 Hypochromia 1+ 10/07/17 06:05 Toxic Granulation 1+ 10/14/17 05:43 Platelet Estimate Adequate 10/18/17 18:00 Platelet Comment 10/18/17 18:00 Polychromasia Rare 10/18/17 18:00 Poikilocytosis 1+ 10/18/17 18:00 Anisocytosis 1+ 10/18/17 18:00 Microcytosis 1+ 10/06/17 05:50 Macrocytosis 1+ 10/18/17 18:00 Tear Drop Cells 1+ 10/05/17 05:50 Ovalocytes 1+ 10/18/17 18:00 Stomatocytes 1+ 10/14/17 05:43 Seguin Cells 2+ 10/07/17 06:05 Schistocytes 1+ 10/06/17 05:50 PT with INR 13.10 SEC (9.98-11.88) H 10/15/17 05:46 INR 1.16 (0.82-1.09) H 10/15/17 05:46 PTT (Actin FS) 23.7 SECONDS (26.9-34.4) L 10/15/17 05:46 Anticoagulation Therapy No Result Required. 10/07/17 06:30 Puncture Site Left brachial 10/11/17 09:20 Patient Temperature Cancelled 10/05/17 06:50 ABG pH 7.42 (7.35-7.45) 10/11/17 09:20 ABG pCO2 at Pt Temp 40.3 mmHg (35-45) 10/11/17 09:20 ABG pO2 at Pt Temp 120.0 mmHg (70-100) H D 10/11/17 09:20 ABG HCO3 25.6 meq/L (22-26) 10/11/17 09:20 ABG O2 Sat (Measured) 98.4 % (90-98.9) 10/11/17 09:20 ABG O2 Content 10.5 % vol (15-22) L 10/11/17 09:20 ABG Base Excess 1.6 meq/l (-2-2) 10/11/17 09:20 Ra Test Positive 10/11/17 09:20 O2 Delivery Device A/c 10/11/17 09:20 Oxygen Flow Rate 40% 10/11/17 09:20 Vent Mode A/c 10/11/17 09:20 Vent Rate 16 10/11/17 09:20 Mechanical Rate Yes 10/11/17 09:20 PEEP 5.0 cmH2O 10/11/17 09:20 Pressure Support Vent 450 10/11/17 09:20 Sodium 136 mmol/L (136-145) 10/20/17 05:35 Potassium 4.0 mmol/L (3.5-5.1) 10/20/17 05:35 Chloride 100 mmol/L (98-107) 10/20/17 05:35 Carbon Dioxide 27 mmol/L (21-32) 10/20/17 05:35 Anion Gap 9 (8-16) 10/20/17 05:35 BUN 78 mg/dL (7-18) H 10/20/17 05:35 Creatinine 3.9 mg/dL (0.7-1.3) H 10/20/17 05:35 Creat Clearance w eGFR 15.03 (>60) 10/20/17 05:35 POC Glucometer 143.53782 UNITS (80-120) 10/19/17 05:36 Random Glucose 270 mg/dL (74-106) H D 10/20/17 05:35 Hemoglobin A1c % 8.5 % (4.8-6.0) H D 10/04/17 06:00 Lactic Acid 2.0 mmol/L (0.0-2.0) 10/03/17 12:00 Calcium 6.9 mg/dL (8.5-10.1) L* 10/20/17 05:35 Phosphorus 6.2 mg/dL (2.5-4.9) H 10/20/17 05:35 Magnesium 1.8 mg/dL (1.8-2.4) 10/20/17 05:35 Iron 22 ug/dL (38-169) L 10/06/17 05:50 Ferritin 202.816 ng/ml (16.4-293.9) 10/06/17 05:50 Total Bilirubin 0.2 mg/dL (0.2-1.0) 10/20/17 05:35 AST 14 U/L (15-37) L D 10/20/17 05:35 ALT < 6 U/L (12-78) L D 10/20/17 05:35 Alkaline Phosphatase 96 U/L (45-117) D 10/20/17 05:35 Total Protein 5.1 g/dl (6.4-8.2) L 10/20/17 05:35 Albumin 1.4 g/dl (3.4-5.0) L 10/20/17 05:35 Vitamin B12 1602 pg/ml (180-914) H 10/06/17 05:50 Serum Folate 23 ng/ml (3.1-17.5) H 10/06/17 05:50 Urine Color Linh 10/03/17 10:32 Urine Appearance Turbid 10/03/17 10:32 Urine pH 5.0 (5.0-8.0) 10/03/17 10:32 Ur Specific [place] 1.016 (1.001-1.035) 10/03/17 10:32 Urine Protein 2+ (NEGATIVE) H 10/03/17 10:32 Urine Glucose (UA) 2+ (NEGATIVE) H 10/03/17 10:32 Urine Ketones Trace (NEGATIVE) H 10/03/17 10:32 Urine Blood Negative (NEGATIVE) 10/03/17 10:32 Urine Nitrite Negative (NEGATIVE) 10/03/17 10:32 Urine Bilirubin Negative (<2.0 mg/dL) 10/03/17 10:32 Urine Urobilinogen Negative mg/dL (0.2-1.0) 10/03/17 10:32 Ur Leukocyte Esterase Negative (NEGATIVE) 10/03/17 10:32 Urine WBC (Auto) 6 /hpf (3-5) 10/03/17 10:32 Urine RBC (Auto) 4 /hpf (0-3) 10/03/17 10:32 Ur Epithelial Cells Rare /HPF (FEW) 10/03/17 10:32 Hyaline Casts 18 /lpf 10/03/17 10:32 Granular Casts 18 /lpf 10/03/17 10:32 Stool Occult Blood Positive (NEGATIVE) 10/12/17 18:30 Alcohol, Quantitative < 5.0 mg/dL (0.0-5.0) 10/02/17 23:32 Acetone, Qual Trace (NEGATIVE) 10/02/17 23:32 Hepatitis A Ab Total Negative (Negative) 10/07/17 17:30 Hep Bs Antigen Negative (Negative) 10/07/17 17:30 Hep Bs Antibody Non reactive (.) 10/07/17 17:30 Hep B Core Total Ab Negative (Negative) 10/07/17 17:30 Hep C Ab Diagnostic <0.1 s/co ratio (0.0-0.9) 10/07/17 17:30 Liver Fibrosis Interp (.) 10/07/17 17:30 Blood Type O NEGATIVE 10/18/17 20:10 Antibody Screen Negative 10/18/17 20:10 Crossmatch See Detail 10/18/17 20:10 Problem List - Problems (1) Angiectasia Code(s): I99.8 - OTHER DISORDER OF CIRCULATORY SYSTEM (2) AVM (arteriovenous malformation) of colon Code(s): Q27.33 - ARTERIOVENOUS MALFORMATION OF DIGESTIVE SYSTEM VESSEL (3) AVM (arteriovenous malformation) of colon with hemorrhage Code(s): Q27.33 - ARTERIOVENOUS MALFORMATION OF DIGESTIVE SYSTEM VESSEL (4) Afib Code(s): I48.91 - UNSPECIFIED ATRIAL FIBRILLATION (5) DKA (diabetic ketoacidoses) Code(s): E13.10 - OTH DIABETES MELLITUS WITH KETOACIDOSIS WITHOUT COMA (6) Ischemia of lower extremity Code(s): I99.8 - OTHER DISORDER OF CIRCULATORY SYSTEM Assessment/Plan Repeat prep today. EGD/colonoscopy tomorrow.
--- NOTE | 2017-10-20 11:02 | PN ---
Physical Exam: SUBJECTIVE: Patient seen and examined in ICU. No acute events overnight. Bowel prep done through NG tube. Planned to scope today OBJECTIVE: Vital Signs Period Temp Pulse Resp BP Sys/Sy Pulse Ox Last 24 Hr 97.7 F-98.9 F 76-101 18-24 113-132/44-87 98-98 GENERAL: The patient is awake, alert, and fully oriented, in no acute distress. EYES: PERRL, extraocular movements intact, sclera anicteric, conjunctiva clear. NECK: Trachea midline, full range of motion, supple. LUNGS: Breath sounds equal, no accessory muscle use. HEART: Regular rate and rhythm, S1, S2 without murmur, rub or gallop. ABDOMEN: Soft, nontender, nondistended, normoactive bowel sounds, no guarding, no rebound, no hepatosplenomegaly, no masses. EXTREMITIES: 1+ pulses, warm, ischemic left great and second toe NEUROLOGICAL: Cranial nerves II through XII grossly intact. Normal speech, gait not observed. Laboratory Results - last 24 hr 10/17/17 10/17/17 10/18/17 16:14 21:38 06:02 WBC RBC Hgb Hct MCV MCH MCHC RDW Plt Count MPV Neutrophils % Lymphocytes % Monocytes % Eosinophils % Basophils % Sodium Potassium Chloride Carbon Dioxide Anion Gap BUN Creatinine Creat Clearance w eGFR POC Glucometer 284.31020 250.92334 50.36549 Random Glucose Calcium Phosphorus Magnesium Total Bilirubin AST ALT Alkaline Phosphatase Total Protein Albumin 10/18/17 10/19/17 10/19/17 06:39 04:58 05:35 WBC RBC Hgb Hct MCV MCH MCHC RDW Plt Count MPV Neutrophils % Lymphocytes % Monocytes % Eosinophils % Basophils % Sodium Potassium Chloride Carbon Dioxide Anion Gap BUN Creatinine Creat Clearance w eGFR POC Glucometer 143.70471 210.89136 Random Glucose Calcium Phosphorus 6.9 H D Magnesium 2.0 Total Bilirubin AST ALT Alkaline Phosphatase Total Protein Albumin 10/19/17 10/19/17 10/20/17 05:36 16:00 05:35 WBC 15.5 H 12.4 H RBC 2.70 L 2.56 L Hgb 8.2 L 7.7 L Hct 24.4 L 23.2 L MCV 90.3 90.7 MCH 30.3 30.3 MCHC 33.5 33.4 RDW 15.8 15.9 Plt Count 400 380 MPV 8.3 8.1 Neutrophils % 93.3 H 90.0 H Lymphocytes % 2.8 L D 3.6 L D Monocytes % 3.6 L 5.4 Eosinophils % 0.1 0.4 D Basophils % 0.2 0.6 Sodium Potassium Chloride Carbon Dioxide Anion Gap BUN Creatinine Creat Clearance w eGFR POC Glucometer 143.11139 Random Glucose Calcium Phosphorus Magnesium Total Bilirubin AST ALT Alkaline Phosphatase Total Protein Albumin 10/20/17 05:35 WBC RBC Hgb Hct MCV MCH MCHC RDW Plt Count MPV Neutrophils % Lymphocytes % Monocytes % Eosinophils % Basophils % Sodium 136 Potassium 4.0 Chloride 100 Carbon Dioxide 27 Anion Gap 9 BUN 78 H Creatinine 3.9 H Creat Clearance w eGFR 15.03 POC Glucometer Random Glucose 270 H D Calcium 6.9 L* Phosphorus 6.2 H Magnesium 1.8 Total Bilirubin 0.2 AST 14 L D ALT < 6 L D Alkaline Phosphatase 96 D Total Protein 5.1 L Albumin 1.4 L Active Medications Generic Name Dose Route Start Last Admin Trade Name Freq PRN Reason Stop Dose Admin Acetaminophen 650 mg 10/09/17 05:40 10/19/17 11:08 Tylenol - PO 650 mg Q6H PRN Administration FEVER Acetylcysteine 200 mg 10/18/17 12:00 10/20/17 07:51 Mucomyst 20 Oral / Inh Use Only* NEB 200 mg RQID [facility] Administration Albuterol Sulfate 1 amp 10/18/17 12:00 10/20/17 07:51 Ventolin 0.083% Nebulizer Soln - NEB 1 amp RQID [facility] Administration Amino Acids 30 ml 10/13/17 17:30 10/20/17 07:16 Prosource No Carb Liquid Pkt NGT Not Given BID@0800,1730 [facility] Chlorhexidine Gluconate 1 applic 10/03/17 22:00 10/19/17 21:02 Hibiclens For Decolonization - TP 1 applic HS [facility] Administration Diltiazem HCl 60 mg 10/20/17 00:00 10/20/17 05:57 Cardizem - PO Not Given Q6HPO [facility] Sodium Chloride 250 mls @ 3,000 mls/hr 10/15/17 09:25 Normal Saline - IV 10/16/17 09:25 PRN PRN Hypotension during Dialysis Dextrose 1,000 mls @ 42 mls/hr 10/19/17 12:45 10/19/17 14:26 D10w - IV 42 mls/hr ASDIR [facility] Administration Insulin Aspart 1 vial 10/19/17 18:00 10/20/17 06:19 Novolog Vial Sliding Scale - SQ 4 units Q4HPO [facility] Administration Protocol Insulin Detemir 5 units 10/19/17 11:21 10/19/17 21:26 Levemir Vial SQ 5 units HS [facility] Administration Metoprolol Tartrate 5 mg 10/03/17 19:00 10/05/17 17:49 Lopressor Injection - IVPUSH 5 mg Q4H PRN Administration TACHYCARDIA Nystatin 500,000 units 10/18/17 12:00 10/20/17 05:57 Nystatin Oral Suspension - PO Not Given Q6HPO [facility] Pantoprazole Sodium 40 mg 10/14/17 22:00 10/20/17 09:03 Protonix Iv IVPUSH 40 mg BID [facility] Administration ASSESSMENT/PLAN: 76M with history of COPD, IDDM, pneumonia with history of prior intubation here with pneumonia and dka. DKA resolved. Intubated, then extubated. Stable respiratory status on NC. #Acute Hypoxic Respiratory Failure -Likely secondary to Pneumonia -ABx per ID -Extubated, stable on NC #COPD -Continue Nebulizers -Continue Ventilation -Continue IV Abx #Atelectasis 2/2 trendelenburg positioning -Oxygen -Chest PT -Repositioning -Resolved today Infectious Disease #Septic Shock secondary to Pneumonia -ABx per ID. -Blood cultures negative -Sputum cultures staph, hector sensitive -Legionella negative -HOB elevated -Aspiration precautions -Off pressors GI #Melena -Hgb 7.7 today, no episodes of melena last night -GI planning for procedure today, may be scuttled due to incomplete prep -Protonix BID 40mg -Daily CBCs Nephrology #Acute on Chronic Renal Failure -Likely ATN secondary from Septic hock -Urine output 1900 yesterday -Permacath placement? Pending GI bleed resolution #AG and Non-AG Metabolic acidosis -Acidosis resolved Cardiovascular #Paroxysmal Atrial Fibrillation -Continue Cardizem -Metoprolol 5mg IVP Q4H PRN for Tachycardia #HTN -Patient not hypertensive -Will continue to monitor BP #CAD/PVD -Ischemia in left toe likely secondary to pressors, hypotension, and prior surgery in the left foot. -Left foot is warm, pink with discoloration around big toe -Palpable pulses in both feet doay -Vascular aware, following -Will optimize medically -Not candidate for asa, heparin due to hgb drop, h/o gi bleed #Anemia -Hgb stable today, 8.4 after transfusion -CBCs stable, next will be 6am tomorrow -Transfuse <7 Endocrine #DKA-Resolved -Continue ISS -Continue BGM -Continue Levemir Neurology #Rule out Critical Illness Myopathy/Polyneuropathy -Patient following commands, moving all four extremities, deconditioned -Start PT -Talking today F/E/N -On no fluids -Electrolytes wnl -Taking PO, puree diet with nectar liquids -NPO after midnight Prophylaxis -Anticoagulation held due to GI bleed -Protonix 40mg IV BID daily Disposition -Patient is DNR/DNI -Continued ICU care, will re-evaluate after GI procedure Visit type - Emergency Visit Emergency Visit: Yes ED Registration Date: 10/03/17 Care time: The patient presented to the Emergency Department on the above date and was hospitalized for further evaluation of their emergent condition. - New Patient This patient is new to me today: No - Critical Care Critical Care patient: Yes Total Critical Care Time (in minutes): 35 Critical Care Statement: The care of this patient involved high complexity decision making to prevent further life threatening deterioration of the patient 's condition and/or to evaluate & treat vital organ system(s) failure or risk of failure.
--- NOTE | 2017-10-20 11:44 | PN ---
Progress Note (short form) - Note Progress Note: Chief Complaint: resp failure History of Present Illness: weak no cp, palps, dizziness, sob Current Medications Generic Name Dose Route Start Last Admin Trade Name Freq PRN Reason Stop Dose Admin Acetaminophen 650 mg 10/09/17 05:40 10/19/17 11:08 Tylenol - PO 650 mg Q6H PRN Administration FEVER Acetylcysteine 200 mg 10/18/17 12:00 10/20/17 07:51 Mucomyst 20 Oral / Inh Use Only* NEB 200 mg RQID [facility] Administration Albuterol Sulfate 1 amp 10/18/17 12:00 10/20/17 07:51 Ventolin 0.083% Nebulizer Soln - NEB 1 amp RQID [facility] Administration Amino Acids 30 ml 10/13/17 17:30 10/20/17 07:16 Prosource No Carb Liquid Pkt NGT Not Given BID@0800,1730 [facility] Chlorhexidine Gluconate 1 applic 10/03/17 22:00 10/19/17 21:02 Hibiclens For Decolonization - TP 1 applic HS [facility] Administration Diltiazem HCl 60 mg 10/20/17 00:00 10/20/17 11:24 Cardizem - PO 60 mg Q6HPO [facility] Administration Sodium Chloride 250 mls @ 3,000 mls/hr 10/15/17 09:25 Normal Saline - IV 10/16/17 09:25 PRN PRN Hypotension during Dialysis Dextrose 1,000 mls @ 42 mls/hr 10/19/17 12:45 10/19/17 14:26 D10w - IV 42 mls/hr ASDIR [facility] Administration Insulin Aspart 1 vial 10/19/17 18:00 10/20/17 11:29 Novolog Vial Sliding Scale - SQ Not Given Q4HPO [facility] Protocol Insulin Detemir 5 units 10/19/17 11:21 10/19/17 21:26 Levemir Vial SQ 5 units HS [facility] Administration Metoprolol Tartrate 5 mg 10/03/17 19:00 10/05/17 17:49 Lopressor Injection - IVPUSH 5 mg Q4H PRN Administration TACHYCARDIA Nystatin 500,000 units 10/18/17 12:00 10/20/17 11:30 Nystatin Oral Suspension - PO 500,000 units Q6HPO [facility] Administration Pantoprazole Sodium 40 mg 10/14/17 22:00 10/20/17 09:03 Protonix Iv IVPUSH 40 mg BID [facility] Administration - Objective Vital Signs: Vital Signs Period Temp Pulse Resp BP Sys/Sy Pulse Ox Last 24 Hr 97.7 F-98.9 F 76-101 18-24 113-132/44-87 98-98 Constitutional: Yes: cachectic, No Distress, Calm Cardiovascular: Yes: Regular Rate and Rhythm. No: JVD (tds exam), Gallop, Murmur Respiratory: Yes: Regular, bibasilar rales, nl effort Extremities: No: Cold Edema: No Neurological: Yes: Alert. No: Seizure Psychiatric: No: Agitated dimished dp/pt, gangrene of left foot. Labs: CBC, BMP 10/20/17 05:35 10/20/17 05:35 Echo 06/2017: mod lvh. nl lv fn. nl rv size/fn. 1+ lae. mod-sev mac with mod ms. 1+ mr. nl rvsp. 1+ ao dilation tele: SR A/P 76 yo with pmhx of htn, hl, pad, afib (not on AC due to GIB), cva (no residual deficits), copd, dm, mgus, esthesioneuroblastoma treated with radiation therapy , chronic anemia s/p recent GIB admitted with dka, sepsis, resp failure. Hospital course now complicated by episode of afib with rvr afib - not previously a candidate for AC b/c of prior hx of GIB. remains anemic with melena here as well. - s/p IV amio. started po dilt 10/05. now back in sr. hr controlled. - off Amio, remains in sinus. BPs soft but tolerating diltiazem hi dose (90mg q6H)--continue same for now - change to cardizem CD regimen once bp's clearly out of the ngo as far as hypotension - hgb drifted down once ASA resumed--now d/c'd. not a candidate for AC at this time as risks of serious bleeding are > benefits - remains in SR, bp thus far tolerating diltiazem at present dose - 10/19: episode of bradycardia with intermittent dropped qrs complexes and runs of ventricular escape. Will decrease diltiazem to 60 mg q6h. Observe for recurrence of RVR. -10/20: no rvr or bradycardia on tele mitral stenosis: - aggressive control of afib to prevent tachycardia CHF as doing - defer amio for now, may have to reconsider if recurrent rapid AF despite sepsis/PNA complete resolution PNA with septic shock, resp failure - off phenylephrine as of AM 10/11, hemodynamically stable currently - cont ICU monitoring - extubated 10/12 anemia, GI bleeding: - ongoing UGIB here with stool guaiac + (iker hgb 6.1) - s/p PRBCs, last on 10/18 - counts stable - no cardiac contraindications to planned egd/foc htn - home meds changed to diltiazem here for PAF rate control - bp stable cva/pad - con't statin. - per pmd, previously not a candidate for asa due to recent gib and anemia. hgb drifting down on asa here, held again mild asc ao dilation - cont bp control SHANTA - renal following, no sig improvement --> initiated HD 10/07. - currently monitoring off HD.
[2017-10-20] MEDS ORDERED: FUROSEMIDE 40 MG/4 ML INJECTABLE VIAL IVPUSH ONE (12:12)
--- NOTE | 2017-10-20 12:44 | PN ---
Progress Note, FUR GLOSSER - Note Progress Note: Pending procedure. Noted to cough at times on nectar thick liquid. Consider puree/honey thick liquid, and MBS when medically stable.
--- NOTE | 2017-10-20 15:16 | PN ---
Progress Note, Physician History of Present Illness: stable still confused intermittently some bleeding pr weak - Current Medication List Current Medications: Active Medications Acetaminophen (Tylenol -) 650 mg PO Q6H PRN PRN Reason: FEVER Last Admin: 10/19/17 11:08 Dose: 650 mg Acetylcysteine (Mucomyst 20 Oral / Inh Use Only*) 200 mg NEB RQID [facility] Last Admin: 10/20/17 15:12 Dose: 200 mg Albuterol Sulfate (Ventolin 0.083% Nebulizer Soln -) 1 amp NEB RQID [facility] Last Admin: 10/20/17 15:12 Dose: 1 amp Amino Acids (Prosource No Carb Liquid Pkt) 30 ml NGT BID@0800,1730 [facility] Last Admin: 10/20/17 07:16 Dose: Not Given Chlorhexidine Gluconate (Hibiclens For Decolonization -) 1 applic TP [facility] Last Admin: 10/19/17 21:02 Dose: 1 applic Diltiazem HCl (Cardizem -) 60 mg PO Q6HPO [facility] Last Admin: 10/20/17 11:24 Dose: 60 mg Sodium Chloride (Normal Saline -) 250 mls @ 3,000 mls/hr IV PRN PRN PRN Reason: Hypotension during Dialysis Stop: 10/16/17 09:25 Dextrose (D10w -) 1,000 mls @ 42 mls/hr IV ASDIR [facility] Last Admin: 10/19/17 14:26 Dose: 42 mls/hr Insulin Aspart (Novolog Vial Sliding Scale -) 1 vial SQ Q4HPO [facility] PRN Reason: Protocol Last Admin: 10/20/17 13:50 Dose: 2 units Insulin Detemir (Levemir Vial) 5 units SQ [facility] Last Admin: 10/19/17 21:26 Dose: 5 units Metoprolol Tartrate (Lopressor Injection -) 5 mg IVPUSH Q4H PRN PRN Reason: TACHYCARDIA Last Admin: 10/05/17 17:49 Dose: 5 mg Nystatin (Nystatin Oral Suspension -) 500,000 units PO Q6HPO [facility] Last Admin: 10/20/17 11:30 Dose: 500,000 units Pantoprazole Sodium (Protonix Iv) 40 mg IVPUSH BID [facility] Last Admin: 10/20/17 09:03 Dose: 40 mg - Objective Vital Signs: Vital Signs Temperature 98.2 F 10/20/17 14:00 Pulse Rate 115 H 10/20/17 14:00 Respiratory Rate 22 10/20/17 14:00 Blood Pressure 115/70 10/20/17 14:00 O2 Sat by Pulse Oximetry (%) 98 10/20/17 08:30 Constitutional: Yes: No Distress, Calm Cardiovascular: Yes: Tachycardia, S1, S2 Respiratory: Yes: Poor Air Entry, Rhonchi Gastrointestinal: Yes: Normal Bowel Sounds, Soft Integumentary: Yes: WNL Neurological: Yes: Alert, Confusion Psychiatric: Yes: Alert Labs: CBC, BMP 10/20/17 05:35 10/20/17 05:35 INR, PTT INR 1.16 (0.82-1.09) H 10/15/17 05:46 Assessment/Plan 76 year old male with a significant past medical history of COPD, GI bleed, diverticulosis, HLD, CVA, intussusception, umbilical hernia, DM, HTN, sinus cancer with excision and polypectomy Acute Hypoxic Respiratory Failure Pneumonia Septic Shock Acute on Chronic Renal Failure Lactic Acidosis Diabetic Ketoacidosis improving HTN DM COPD gluteal ulcer discoloration of the toes plan off of abx continue close monitoring monitor wbc monitor h and h close watch stable rest as per icu gi to see the patient probably colonoscopy cc time 40 min
[2017-10-20] MEDS: DEXTROSE 10%-WATER - 1,000 ML IV SCH (16:14)
--- NOTE | 2017-10-20 17:48 | PN ---
Progress Note (short form) - Note Progress Note: Renal follow up for SHANTA Pt seen and examined in the ICU awake and alert, somewhat confused making urine for endoscopy tomorrow denies any sob or pain Vital Signs Temperature 98.2 F 10/20/17 14:00 Pulse Rate 104 H 10/20/17 16:00 Respiratory Rate 22 10/20/17 16:00 Blood Pressure 106/50 10/20/17 16:00 O2 Sat by Pulse Oximetry (%) 98 10/20/17 08:30 Intake & Output 10/17/17 10/18/17 10/19/17 10/20/17 23:59 23:59 23:59 23:59 Intake Total 1730 1268 540 Output Total 6674 346 7635 1200 Balance -170 568 -1360 -1200 Weight 54.204 kg 54.839 kg 54.885 kg 55.61 kg NAD RRR, No M/R Dec BS at lung bases soft NT/ND No LE edema, clubbing or cyanosis heels in dressing CBC, BMP 10/20/17 05:35 10/20/17 05:35 Current Medications Acetaminophen (Tylenol -) 650 mg PO Q6H PRN PRN Reason: FEVER Last Admin: 10/19/17 11:08 Dose: 650 mg Acetylcysteine (Mucomyst 20 Oral / Inh Use Only*) 200 mg NEB RQID [facility] Last Admin: 10/20/17 15:12 Dose: 200 mg Albuterol Sulfate (Ventolin 0.083% Nebulizer Soln -) 1 amp NEB RQID [facility] Last Admin: 10/20/17 15:12 Dose: 1 amp Amino Acids (Prosource No Carb Liquid Pkt) 30 ml NGT BID@0800,1730 [facility] Last Admin: 10/20/17 07:16 Dose: Not Given Chlorhexidine Gluconate (Hibiclens For Decolonization -) 1 applic TP HS [facility] Last Admin: 10/19/17 21:02 Dose: 1 applic Diltiazem HCl (Cardizem -) 60 mg PO Q6HPO [facility] Last Admin: 10/20/17 11:24 Dose: 60 mg Dextrose (D10w -) 1,000 mls @ 42 mls/hr IV ASDIR [facility] Last Admin: 10/20/17 16:14 Dose: 42 mls/hr Insulin Aspart (Novolog Vial Sliding Scale -) 1 vial SQ Q4HPO [facility] PRN Reason: Protocol Last Admin: 10/20/17 13:50 Dose: 2 units Insulin Detemir (Levemir Vial) 5 units SQ HS [facility] Last Admin: 10/19/17 21:26 Dose: 5 units Metoprolol Tartrate (Lopressor Injection -) 5 mg IVPUSH Q4H PRN PRN Reason: TACHYCARDIA Last Admin: 10/05/17 17:49 Dose: 5 mg Nystatin (Nystatin Oral Suspension -) 500,000 units PO Q6HPO [facility] Last Admin: 10/20/17 11:30 Dose: 500,000 units Pantoprazole Sodium (Protonix Iv) 40 mg IVPUSH BID [facility] Last Admin: 10/20/17 09:03 Dose: 40 mg Polyethylene Glycol/Electrolytes (Golytely Solution -) 4,000 ml PO ONCE ONE Stop: 10/20/17 19:01 76 year old male with a significant past medical history of COPD, GI bleed, diverticulosis, HLD, CVA, intussusception, umbilical hernia, DM, HTN, sinus cancer with excision and polypectomy who presents to the ED, accompanied by , s/p high blood sugar levels earlier today. #SHANTA on CKD likely due to ATN in setting of sepsis #Sepsis/PNA #Metabolic acidosis (now resolved) #Anemia #Hx of Hypertension #DM on Insulin #Hyperphosphatemia Renal function appears to have stabilized w/o hyperkalemia, oliguria or metabolic acidosis to warrant dialysis will give IV Lasix x 1 as pt has congestion on CXR Trend Renal function and electrolytes and will access need for dialysis daily if renal function and pt clinically stable will try to avoid further dialysis pt with SHANTA and thus we expect recovery would avoid RICARDO/ARB, NSIADs, IV contrast at this time keep MAP > 65 transfuse as per ICU protocol Tomás Al DO
[2017-10-20] MEDS ORDERED: PEG 3350/NA SULF BICARB CL/KCL 4000 ML SOLN.RECON PO ONE (19:00)
[2017-10-20 20:06] LABS: BASO % 0.5 % (0-2.0); EOS % 0.3 % (0-4.5); HEMOGLOBIN 8.3 GM/dL (11.7-16.9); LYMPH % 4.2 % (8-40); MCH 30.2 pg (25.7-33.7); MCHC 33.4 g/dl (32.0-35.9); MEAN CELL VOLUME 90.5 fl (80-96); MEAN PLT VOLUME 7.9 fl (7.5-11.1); MONO % 6.3 % (3.8-10.2); NEUT % 88.7 % (42.8-82.8); PLATELET COUNT 420 K/MM3 (134-434); RBC 2.76 M/mm3 (4.00-5.60); RDW 15.8 % (11.9-15.9); WHITE BLOOD COUNT 11.5 K/mm3 (4.0-10.0)
[2017-10-20] MEDS: INSULIN (LEVEMIR) 100 UNITS/ML UNITS SQ SCH (22:26)
[2017-10-20] MEDS: CHLORHEXIDINE GLUCONATE 4% CLEANSER FOR DECOLONIZATION TP SCH (22:27)
[2017-10-20] MEDS: dilTIAZem HCL 60 MG TABLET (FP) PO SCH (23:57)
[2017-10-21] MEDS: INSULIN SLIDING SCALE (NOVOLOG) 1 VIAL SQ SCH ×7 (02:12→21:50)
[2017-10-21] MEDS: NYSTATIN 500,000 UNITS/5 ML SUSPENSION PO SCH ×4 (05:56→17:32)
[2017-10-21] MEDS: dilTIAZem HCL 60 MG TABLET (FP) PO SCH ×4 (05:56→23:47)
[2017-10-21 06:47] LABS: BASO % 0.8 % (0-2.0); EOS % 0.5 % (0-4.5); HEMATOCRIT 22.6 % (35.4-49); HEMOGLOBIN 7.8 GM/dL (11.7-16.9); LYMPH % 5.5 % (8-40); MCH 31.3 pg (25.7-33.7); MCHC 34.6 g/dl (32.0-35.9); MEAN CELL VOLUME 90.4 fl (80-96); MEAN PLT VOLUME 8.1 fl (7.5-11.1); MONO % 6.8 % (3.8-10.2); NEUT % 86.4 % (42.8-82.8); PLATELET COUNT 412 K/MM3 (134-434); RDW 15.6 % (11.9-15.9); WHITE BLOOD COUNT 10.5 K/mm3 (4.0-10.0)
[2017-10-21 07:04] LABS: ALBUMIN 1.4 g/dl (3.4-5.0); ANION GAP 15 (8-16); BLOOD UREA NITROGEN 72 mg/dL (7-18); CALCIUM 7.3 mg/dL (8.5-10.1); CHLORIDE 97 mmol/L (98-107); CO2 28 mmol/L (21-32); CREATININE 3.9 mg/dL (0.7-1.3); GLUCOSE,RANDOM 107 mg/dL (74-106); MAGNESIUM 1.9 mg/dL (1.8-2.4); PHOSPHOROUS 5.6 mg/dL (2.5-4.9); POTASSIUM 3.9 mmol/L (3.5-5.1); SGOT/AST 19 U/L (15-37); SGPT/ALT < 6 U/L (12-78); SODIUM 140 mmol/L (136-145)
[2017-10-21 07:06] LABS: ALK PHOS 99 U/L (45-117); BILIRUBIN,TOTAL 0.2 mg/dL (0.2-1.0); TOT PROT 5.1 g/dl (6.4-8.2)
[2017-10-21] MEDS: ACETYLCYSTEINE 20% 200MG/ML 4 ML VIAL *FOR ORAL / INH USE ONLY NEB SCH ×4 (07:30→20:43)
[2017-10-21] MEDS: ALBUTEROL SO4 0.083% IH SOL 2.5 MG/3 ML VIAL.NEB. NEB SCH ×4 (07:30→20:43)
[2017-10-21] MEDS: AMINO ACIDS/PROTEIN HYDROLYS 30 ML LIQUID.PKT NGT SCH ×2 (08:49→17:32)
--- NOTE | 2017-10-21 09:04 | PN ---
Progress Note (short form) - Note Progress Note: Patient seen and examined. More lethargic today but had a 2nd day of Bowel Prep by GI MD. Renal MD will attempt to hold dialysis and see if his function recovers. Still worry that he may have difficulty with the endoscopy re: anesthesia and his DNR/DNI status. On Exam: Vital Signs Temp 98.8 F 10/21/17 06:00 Pulse 88 10/21/17 08:00 Resp 22 10/21/17 08:00 BP 143/53 10/21/17 08:00 Pulse Ox 95 10/21/17 08:55 Intake & Output 10/20/17 10/20/17 10/21/17 11:59 23:59 11:59 Intake Total 4700 504 Output Total 500 1900 600 Balance -500 2800 -96 Weight 122 lb 9.6 oz 119 lb 0.794 oz Intake: IV 500 504 D10w - 1,000 ml @ 42 mls/ 500 504 hr IV ASDIR [facility] Rx#: [id number] Oral 4200 Output: Urine 500 700 600 [place] 500 700 600 Emesis 1200 Other: Voiding Method Indwelling Catheter Indwelling Catheter Indwelling Catheter Bowel Movement Yes # Bowel Movements 1 Weight Measurement Method Built in [facility] Built in [facility] Lethargic Cor:Obcc irregular beats Chest: Few Rhonchi at bases Abd: Flat with some increased bowel sounds Ext: left foot ischemic changes now demarcating more clearly to 3 toes Abnormal Lab Results 10/20/17 10/20/17 10/20/17 05:35 05:35 18:35 WBC 12.4 H 11.5 H RBC 2.56 L 2.76 L Hgb 7.7 L 8.3 L Hct 23.2 L 25.0 L Neutrophils % 90.0 H 88.7 H Lymphocytes % 3.6 L D 4.2 L Chloride BUN 78 H Creatinine 3.9 H Random Glucose 270 H D Calcium 6.9 L* Phosphorus 6.2 H AST 14 L D ALT < 6 L D Total Protein 5.1 L Albumin 1.4 L 10/21/17 10/21/17 05:15 05:15 WBC 10.5 H RBC 2.50 L Hgb 7.8 L Hct 22.6 L Neutrophils % 86.4 H Lymphocytes % 5.5 L D Chloride 97 L BUN 72 H Creatinine 3.9 H Random Glucose 107 H D Calcium 7.3 L Phosphorus 5.6 H AST ALT < 6 L Total Protein 5.1 L Albumin 1.4 L IMP: Acute GI Bleed Acute Blood loss Anemia Acute on chronic renal failure Uncontrolled DM Sepsis with pneumonia PVD Left foot Ischemic changes COPD DNR/DNI PLAN: Endoscopy Planned F/U Lab Hold Dialysis Transfusse PRN
--- NOTE | 2017-10-21 09:10 | PN ---
Progress Note (short form) - Note Progress Note: Awake, Eyes open, in NAD Awaiting EGD and Colonoscopy On D10W Vital Signs Period Temp Pulse Resp BP Sys/Sy Pulse Ox Last 24 Hr 98.2 F-99.6 F 84-115 20-24 106-147/48-80 95-98 PE: , awake, alert Neck: supple Lungs: CTA CVS: S1S2 Abd: Benign Ext: No edema, dusky coloration left 1st and 2nd toes Neuro: Awake, open eyes, CMP Sodium 140 mmol/L (136-145) 10/21/17 05:15 Potassium 3.9 mmol/L (3.5-5.1) 10/21/17 05:15 Chloride 97 mmol/L (98-107) L 10/21/17 05:15 Carbon Dioxide 28 mmol/L (21-32) 10/21/17 05:15 Anion Gap 15 (8-16) 10/21/17 05:15 BUN 72 mg/dL (7-18) H 10/21/17 05:15 Creatinine 3.9 mg/dL (0.7-1.3) H 10/21/17 05:15 Creat Clearance w eGFR 15.03 (>60) 10/21/17 05:15 POC Glucometer 132.88008 UNITS (80-120) 10/21/17 05:25 Random Glucose 107 mg/dL (74-106) H D 10/21/17 05:15 Hemoglobin A1c % 8.5 % (4.8-6.0) H D 10/04/17 06:00 Lactic Acid 2.0 mmol/L (0.0-2.0) 10/03/17 12:00 Calcium 7.3 mg/dL (8.5-10.1) L 10/21/17 05:15 Phosphorus 5.6 mg/dL (2.5-4.9) H 10/21/17 05:15 Magnesium 1.9 mg/dL (1.8-2.4) 10/21/17 05:15 Iron 22 ug/dL (38-169) L 10/06/17 05:50 Ferritin 202.816 ng/ml (16.4-293.9) 10/06/17 05:50 Total Bilirubin 0.2 mg/dL (0.2-1.0) 10/21/17 05:15 AST 19 U/L (15-37) D 10/21/17 05:15 ALT < 6 U/L (12-78) L 10/21/17 05:15 Alkaline Phosphatase 99 U/L (45-117) 10/21/17 05:15 Total Protein 5.1 g/dl (6.4-8.2) L 10/21/17 05:15 Albumin 1.4 g/dl (3.4-5.0) L 10/21/17 05:15 Vitamin B12 1602 pg/ml (180-914) H 10/06/17 05:50 Serum Folate 23 ng/ml (3.1-17.5) H 10/06/17 05:50 Current Medications Generic Name Dose Route Start Last Admin Trade Name Freq PRN Reason Stop Dose Admin Acetaminophen 650 mg 10/09/17 05:40 10/19/17 11:08 Tylenol - PO 650 mg Q6H PRN Administration FEVER Acetylcysteine 200 mg 10/18/17 12:00 10/21/17 07:30 Mucomyst 20 Oral / Inh Use Only* NEB 200 mg RQID [facility] Administration Albuterol Sulfate 1 amp 10/18/17 12:00 10/21/17 07:30 Ventolin 0.083% Nebulizer Soln - NEB 1 amp RQID [facility] Administration Amino Acids 30 ml 10/13/17 17:30 10/21/17 08:49 Prosource No Carb Liquid Pkt NGT Not Given BID@0800,1730 [facility] Chlorhexidine Gluconate 1 applic 10/03/17 22:00 10/20/17 22:27 Hibiclens For Decolonization - TP 1 applic HS [facility] Administration Diltiazem HCl 60 mg 10/20/17 00:00 10/21/17 05:56 Cardizem - PO 60 mg Q6HPO [facility] Administration Dextrose 1,000 mls @ 42 mls/hr 10/19/17 12:45 10/20/17 16:14 D10w - IV 42 mls/hr ASDIR [facility] Administration Insulin Aspart 1 vial 10/19/17 18:00 10/21/17 05:57 Novolog Vial Sliding Scale - SQ Not Given Q4HPO [facility] Protocol Insulin Detemir 5 units 10/19/17 11:21 10/20/17 22:26 Levemir Vial SQ Not Given HS [facility] Metoprolol Tartrate 5 mg 10/03/17 19:00 10/05/17 17:49 Lopressor Injection - IVPUSH 5 mg Q4H PRN Administration TACHYCARDIA Nystatin 500,000 units 10/18/17 12:00 10/21/17 05:56 Nystatin Oral Suspension - PO Not Given Q6HPO [facility] Pantoprazole Sodium 40 mg 10/14/17 22:00 10/20/17 22:26 Protonix Iv IVPUSH 40 mg BID [facility] Administration AP; Acute Hypoxic Respiratory Failure s/p Extubation Pneumonia Septic Shock DM with Acidosis ? DKA,?Lactic acidosis Acute on Chronic Renal Failure Paroxysmal Atrial Fibrillation with RVR HTN COPD Ischemic changes left first and 2nd toes GI bleeding s/p transfuison Awaiting EGD and Colonoscopy BGM Q4 hr Levemir 5 units daily, Didn't get Levemir last night Continue Novolog coverage On antibiotics Chart reviewed Start D10W at 42 ml/hr whenever tube feeding is on hold or discontinued until food intake is adequate. As pt was admitted with acidosis possibly DKA, need to continue to administer long acting Insulin Will f/u
[2017-10-21] MEDS ORDERED: PT OWN MED DRAWER 7, Y5N ONE (09:13)
[2017-10-21] MEDS: PANTOPRAZOLE SODIUM 40 MG VIAL IVPUSH SCH (10:28)
--- NOTE | 2017-10-21 10:53 | PN ---
Physical Exam: SUBJECTIVE: Patient seen and examined in ICU. EGD/Colonoscopy held yesterday due to incomplete prep. No acute events overnight. Plan to do egd/colonoscopy today OBJECTIVE: Vital Signs Period Temp Pulse Resp BP Sys/Sy Pulse Ox Last 24 Hr 98.2 F-99.6 F 84-115 20-24 106-147/48-80 95-98 GENERAL: The patient is awake, alert, and fully oriented, in no acute distress. HEAD: Normal with no signs of trauma. ENT: Ears normal, nares patent, oropharynx clear without exudates, moist mucous membranes. NECK: Trachea midline, full range of motion, supple. LUNGS: Breath sounds equal, clear to auscultation bilaterally, no accessory muscle use. HEART: Regular rate and rhythm, S1, S2 without murmur, rub or gallop. ABDOMEN: Soft, nontender, nondistended, normoactive bowel sounds, no guarding, no rebound, no hepatosplenomegaly, no masses. EXTREMITIES: 1+ pulse in right foot, no pulse felt in left, warm, well-perfused , with exception of left great toe and second toe Laboratory Results - last 24 hr 10/19/17 10/20/17 10/20/17 21:25 02:16 05:38 WBC Corrected WBC (auto) RBC Hgb Hct MCV MCH MCHC RDW Plt Count MPV Absolute Neuts (auto) Absolute Lymphs (auto) Absolute Monos (auto) Absolute Eos (auto) Absolute Basos (auto) Add Manual Diff Neutrophils % Lymphocytes % Monocytes % Eosinophils % Basophils % Nucleated RBC % Platelet Estimate Platelet Comment Normal RBC Morphology Sodium Potassium Chloride Carbon Dioxide Anion Gap BUN Creatinine Creat Clearance w eGFR POC Glucometer 218.14225 301.89648 303.19533 Random Glucose Calcium Phosphorus Magnesium Total Bilirubin AST ALT Alkaline Phosphatase Total Protein Albumin 10/20/17 10/20/17 10/20/17 11:23 13:49 17:37 WBC Corrected WBC (auto) RBC Hgb Hct MCV MCH MCHC RDW Plt Count MPV Absolute Neuts (auto) Absolute Lymphs (auto) Absolute Monos (auto) Absolute Eos (auto) Absolute Basos (auto) Add Manual Diff Neutrophils % Lymphocytes % Monocytes % Eosinophils % Basophils % Nucleated RBC % Platelet Estimate Platelet Comment Normal RBC Morphology Sodium Potassium Chloride Carbon Dioxide Anion Gap BUN Creatinine Creat Clearance w eGFR POC Glucometer 110.21645 210.75450 232.52207 Random Glucose Calcium Phosphorus Magnesium Total Bilirubin AST ALT Alkaline Phosphatase Total Protein Albumin 10/20/17 10/20/17 10/20/17 18:00 18:35 21:14 WBC Cancelled 11.5 H Corrected WBC (auto) Cancelled RBC Cancelled 2.76 L Hgb Cancelled 8.3 L Hct Cancelled 25.0 L MCV Cancelled 90.5 MCH Cancelled 30.2 MCHC Cancelled 33.4 RDW Cancelled 15.8 Plt Count Cancelled 420 MPV Cancelled 7.9 Absolute Neuts (auto) Cancelled Absolute Lymphs (auto) Cancelled Absolute Monos (auto) Cancelled Absolute Eos (auto) Cancelled Absolute Basos (auto) Cancelled Add Manual Diff Cancelled Neutrophils % Cancelled 88.7 H Lymphocytes % Cancelled 4.2 L Monocytes % Cancelled 6.3 Eosinophils % Cancelled 0.3 Basophils % Cancelled 0.5 Nucleated RBC % Cancelled Platelet Estimate Cancelled Platelet Comment Cancelled Normal RBC Morphology Cancelled Sodium Potassium Chloride Carbon Dioxide Anion Gap BUN Creatinine Creat Clearance w eGFR POC Glucometer 114.64729 Random Glucose Calcium Phosphorus Magnesium Total Bilirubin AST ALT Alkaline Phosphatase Total Protein Albumin 10/21/17 10/21/17 10/21/17 02:10 05:15 05:15 WBC 10.5 H Corrected WBC (auto) RBC 2.50 L Hgb 7.8 L Hct 22.6 L MCV 90.4 MCH 31.3 MCHC 34.6 RDW 15.6 Plt Count 412 MPV 8.1 Absolute Neuts (auto) Absolute Lymphs (auto) Absolute Monos (auto) Absolute Eos (auto) Absolute Basos (auto) Add Manual Diff Neutrophils % 86.4 H Lymphocytes % 5.5 L D Monocytes % 6.8 Eosinophils % 0.5 Basophils % 0.8 Nucleated RBC % Platelet Estimate Platelet Comment Normal RBC Morphology Sodium 140 Potassium 3.9 Chloride 97 L Carbon Dioxide 28 Anion Gap 15 BUN 72 H Creatinine 3.9 H Creat Clearance w eGFR 15.03 POC Glucometer 235.94429 Random Glucose 107 H D Calcium 7.3 L Phosphorus 5.6 H Magnesium 1.9 Total Bilirubin 0.2 AST 19 D ALT < 6 L Alkaline Phosphatase 99 Total Protein 5.1 L Albumin 1.4 L 10/21/17 05:25 WBC Corrected WBC (auto) RBC Hgb Hct MCV MCH MCHC RDW Plt Count MPV Absolute Neuts (auto) Absolute Lymphs (auto) Absolute Monos (auto) Absolute Eos (auto) Absolute Basos (auto) Add Manual Diff Neutrophils % Lymphocytes % Monocytes % Eosinophils % Basophils % Nucleated RBC % Platelet Estimate Platelet Comment Normal RBC Morphology Sodium Potassium Chloride Carbon Dioxide Anion Gap BUN Creatinine Creat Clearance w eGFR POC Glucometer 132.22837 Random Glucose Calcium Phosphorus Magnesium Total Bilirubin AST ALT Alkaline Phosphatase Total Protein Albumin Active Medications Generic Name Dose Route Start Last Admin Trade Name Freq PRN Reason Stop Dose Admin Acetaminophen 650 mg 10/09/17 05:40 10/19/17 11:08 Tylenol - PO 650 mg Q6H PRN Administration FEVER Acetylcysteine 200 mg 10/18/17 12:00 10/21/17 07:30 Mucomyst 20 Oral / Inh Use Only* NEB 200 mg RQID [facility] Administration Albuterol Sulfate 1 amp 10/18/17 12:00 10/21/17 07:30 Ventolin 0.083% Nebulizer Soln - NEB 1 amp RQID [facility] Administration Amino Acids 30 ml 10/13/17 17:30 10/21/17 08:49 Prosource No Carb Liquid Pkt NGT Not Given BID@0800,1730 [facility] Chlorhexidine Gluconate 1 applic 10/03/17 22:00 10/20/17 22:27 Hibiclens For Decolonization - TP 1 applic HS [facility] Administration Diltiazem HCl 60 mg 10/20/17 00:00 10/21/17 05:56 Cardizem - PO 60 mg Q6HPO [facility] Administration Dextrose 1,000 mls @ 42 mls/hr 10/19/17 12:45 10/20/17 16:14 D10w - IV 42 mls/hr ASDIR [facility] Administration Insulin Aspart 1 vial 10/19/17 18:00 10/21/17 10:29 Novolog Vial Sliding Scale - SQ Not Given Q4HPO [facility] Protocol Insulin Detemir 5 units 10/19/17 11:21 10/20/17 22:26 Levemir Vial SQ Not Given HS [facility] Metoprolol Tartrate 5 mg 10/03/17 19:00 10/05/17 17:49 Lopressor Injection - IVPUSH 5 mg Q4H PRN Administration TACHYCARDIA Nystatin 500,000 units 10/18/17 12:00 10/21/17 05:56 Nystatin Oral Suspension - PO Not Given Q6HPO [facility] Pantoprazole Sodium 40 mg 10/14/17 22:00 10/21/17 10:28 Protonix Iv IVPUSH 40 mg BID [facility] Administration ASSESSMENT/PLAN: 76M with history of COPD, IDDM, pneumonia with history of prior intubation here with pneumonia and dka. DKA resolved. Intubated, then extubated. Stable respiratory status on NC. Respiratory #Acute Hypoxic Respiratory Failure -Likely secondary to Pneumonia -ABx per ID -Extubated, stable on NC #COPD -Continue Nebulizers -Continue Ventilation -Continue IV Abx #Atelectasis 2/2 trendelenburg positioning -Oxygen -Chest PT -Repositioning -Resolved today Infectious Disease #Septic Shock secondary to Pneumonia -ABx per ID. -Blood cultures negative -Sputum cultures staph, hector sensitive -Legionella negative -HOB elevated -Aspiration precautions -Off pressors GI #Melena -Hgb 7.8 today, no episodes of melena last night -GI planning for procedure today, may be scuttled due to incomplete prep -Protonix BID 40mg -Daily CBCs Nephrology #Acute on Chronic Renal Failure -Likely ATN secondary from Septic hock -Urine output 1900 yesterday -Permacath placement? Pending GI bleed resolution #AG and Non-AG Metabolic acidosis -Acidosis resolved Cardiovascular #Paroxysmal Atrial Fibrillation -Continue Cardizem -Metoprolol 5mg IVP Q4H PRN for Tachycardia #HTN -Patient not hypertensive -Will continue to monitor BP #CAD/PVD -Ischemia in left toe likely secondary to pressors, hypotension, and prior surgery in the left foot. -Left foot is warm, pink with discoloration around big toe -Palpable pulses in both feet doay -Vascular aware, following -Will optimize medically -Not candidate for asa, heparin due to hgb drop, h/o gi bleed #Anemia -Hgb stable today -CBCs stable, next will be 6am tomorrow -Transfuse <7 or per GI reqs Endocrine #DKA-Resolved -Continue ISS -Continue BGM -Continue Levemir Neurology #Rule out Critical Illness Myopathy/Polyneuropathy -Patient following commands, moving all four extremities, deconditioned -Start PT F/E/N -On no fluids -Electrolytes wnl -Taking PO, puree diet with nectar liquids -NPO after midnight Prophylaxis -Anticoagulation held due to GI bleed -Protonix 40mg IV BID daily Disposition -Patient is DNR/DNI -Continued ICU care, will re-evaluate after GI procedure Visit type - Emergency Visit Emergency Visit: Yes ED Registration Date: 10/03/17 Care time: The patient presented to the Emergency Department on the above date and was hospitalized for further evaluation of their emergent condition. - New Patient This patient is new to me today: No - Critical Care Critical Care patient: Yes Total Critical Care Time (in minutes): 35 Critical Care Statement: The care of this patient involved high complexity decision making to prevent further life threatening deterioration of the patient 's condition and/or to evaluate & treat vital organ system(s) failure or risk of failure.
--- NOTE | 2017-10-21 11:05 | PN ---
Teaching Attending Note Name of Resident: Curt Caputo ATTENDING PHYSICIAN STATEMENT I saw and evaluated the patient. I reviewed the resident's note and discussed the case with the resident. I agree with the resident's findings and plan as documented. SUBJECTIVE: Pt seen and examined in the ICU. Bowel movements cleared. H/H stable. Denies shortness of breath. Good urine output. OBJECTIVE: Last Vital Signs Temp Pulse Resp BP Pulse Ox 98.7 F 92 H 22 127/61 95 10/21/17 10:00 10/21/17 10:00 10/21/17 10:00 10/21/17 10:00 10/21/17 08:55 Intake & Output 10/18/17 10/19/17 10/20/17 10/21/17 23:59 23:59 23:59 23:59 Intake Total 9801 026 7165 504 Output Total 700 1900 2400 600 Balance 568 -1360 2300 -96 Weight 54.839 kg 54.885 kg 55.61 kg 54 kg Gen: NAD at rest Heart: RRR Lung: decreased breath sounds at the bases Abd: soft, nontender Ext: + edema CBC, BMP 10/21/17 05:15 10/21/17 05:15 Active Medications Acetaminophen (Tylenol -) 650 mg PO Q6H PRN PRN Reason: FEVER Last Admin: 10/19/17 11:08 Dose: 650 mg Acetylcysteine (Mucomyst 20 Oral / Inh Use Only*) 200 mg NEB RQID [facility] Last Admin: 10/21/17 07:30 Dose: 200 mg Albuterol Sulfate (Ventolin 0.083% Nebulizer Soln -) 1 amp NEB RQID [facility] Last Admin: 10/21/17 07:30 Dose: 1 amp Amino Acids (Prosource No Carb Liquid Pkt) 30 ml NGT BID@0800,1730 [facility] Last Admin: 10/21/17 08:49 Dose: Not Given Chlorhexidine Gluconate (Hibiclens For Decolonization -) 1 applic TP HS [facility] Last Admin: 10/20/17 22:27 Dose: 1 applic Diltiazem HCl (Cardizem -) 60 mg PO Q6HPO [facility] Last Admin: 10/21/17 05:56 Dose: 60 mg Dextrose (D10w -) 1,000 mls @ 42 mls/hr IV ASDIR [facility] Last Admin: 10/20/17 16:14 Dose: 42 mls/hr Insulin Aspart (Novolog Vial Sliding Scale -) 1 vial SQ Q4HPO [facility] PRN Reason: Protocol Last Admin: 10/21/17 10:29 Dose: Not Given Insulin Detemir (Levemir Vial) 5 units SQ HS [facility] Last Admin: 10/20/17 22:26 Dose: Not Given Metoprolol Tartrate (Lopressor Injection -) 5 mg IVPUSH Q4H PRN PRN Reason: TACHYCARDIA Last Admin: 10/05/17 17:49 Dose: 5 mg Nystatin (Nystatin Oral Suspension -) 500,000 units PO Q6HPO [facility] Last Admin: 10/21/17 05:56 Dose: Not Given Pantoprazole Sodium (Protonix Iv) 40 mg IVPUSH BID [facility] Last Admin: 10/21/17 10:28 Dose: 40 mg ASSESSMENT AND PLAN: Acute Hypoxic Respiratory Failure improving Pneumonia treated Septic Shock resolving Acute on Chronic Renal Failure requiring HD Lactic Acidosis resolved Diabetic Ketoacidosis improving Paroxysmal Atrial Fibrillation with RVR GI bleed HTN DM COPD - monitor H/H - transfuse as needed - for endoscopy/colonoscopy - monitoring off antibiotics - HD per renal - monitor urine output, creatinine - monitor I/Os - may need permacath - glucose control - rate control - holding anticoagulation due to suspected GI bleed - taper FiO2 to keep SpO2 >90% - monitoring off pressors - aspiration precautions - DVT/GI prophylaxis - continue ICU monitoring critical care time spent in reviewing chart, evaluating patient and formulating plan 35 min
[2017-10-21] MEDS ORDERED: PHENYLEPHRINE HCL 10 MG/1 ML SINGLE DOSE VIAL ONE (14:38)
--- NOTE | 2017-10-21 14:46 | PN ---
Progress Note (short form) - Note Progress Note: Renal follow up for SHANTA Pt seen and examined in the ICU awake and alert no acute complaints making urine no chest pain or sob for possible endoscopy today Vital Signs Temperature 98.7 F 10/21/17 10:00 Pulse Rate 92 H 10/21/17 12:00 Respiratory Rate 24 10/21/17 12:00 Blood Pressure 126/65 10/21/17 12:00 O2 Sat by Pulse Oximetry (%) 95 10/21/17 08:55 Intake & Output 10/18/17 10/19/17 10/20/17 10/21/17 23:59 23:59 23:59 23:59 Intake Total 6521 571 2988 504 Output Total 700 1900 2400 2000 Balance 568 -1360 2300 -1496 Weight 54.839 kg 54.885 kg 55.61 kg 54 kg NAD RRR, No M/R Dec BS at lung bases soft NT/ND No LE edema, clubbing or cyanosis heels in dressing CBC, BMP 10/21/17 05:15 10/21/17 05:15 Current Medications Acetaminophen (Tylenol -) 650 mg PO Q6H PRN PRN Reason: FEVER Last Admin: 10/19/17 11:08 Dose: 650 mg Acetylcysteine (Mucomyst 20 Oral / Inh Use Only*) 200 mg NEB RQID [facility] Last Admin: 10/21/17 11:30 Dose: 200 mg Albuterol Sulfate (Ventolin 0.083% Nebulizer Soln -) 1 amp NEB RQID [facility] Last Admin: 10/21/17 11:30 Dose: 1 amp Amino Acids (Prosource No Carb Liquid Pkt) 30 ml NGT BID@0800,1730 [facility] Last Admin: 10/21/17 08:49 Dose: Not Given Chlorhexidine Gluconate (Hibiclens For Decolonization -) 1 applic TP HS [facility] Last Admin: 10/20/17 22:27 Dose: 1 applic Diltiazem HCl (Cardizem -) 60 mg PO Q6HPO [facility] Last Admin: 10/21/17 11:20 Dose: 60 mg Dextrose (D10w -) 1,000 mls @ 42 mls/hr IV ASDIR [facility] Last Admin: 10/20/17 16:14 Dose: 42 mls/hr Insulin Aspart (Novolog Vial Sliding Scale -) 1 vial SQ Q4HPO [facility] PRN Reason: Protocol Last Admin: 10/21/17 10:29 Dose: Not Given Insulin Detemir (Levemir Vial) 5 units SQ HS [facility] Last Admin: 10/20/17 22:26 Dose: Not Given Metoprolol Tartrate (Lopressor Injection -) 5 mg IVPUSH Q4H PRN PRN Reason: TACHYCARDIA Last Admin: 10/05/17 17:49 Dose: 5 mg Nystatin (Nystatin Oral Suspension -) 500,000 units PO Q6HPO [facility] Last Admin: 10/21/17 11:20 Dose: 500,000 units Pantoprazole Sodium (Protonix Iv) 40 mg IVPUSH BID [facility] Last Admin: 10/21/17 10:28 Dose: 40 mg 76 year old male with a significant past medical history of COPD, GI bleed, diverticulosis, HLD, CVA, intussusception, umbilical hernia, DM, HTN, sinus cancer with excision and polypectomy who presents to the ED, accompanied by , s/p high blood sugar levels earlier today. #SHANTA on CKD likely due to ATN in setting of sepsis #Sepsis/PNA #Metabolic acidosis (now resolved) #Anemia #Hx of Hypertension #DM on Insulin #Hyperphosphatemia no acute indication for HD at this time, Cr stable and pt is non-oliguric can remove dialysis catheter at this time can d/c lazcano as well Lasix x 1 today trend Hgb, transfuse for < 7 continue ICU care GI follow up Tomás Al DO
--- NOTE | 2017-10-21 15:31 | PN ---
Progress Note, Physician History of Present Illness: stable patient being given golyt to prepare for colonoscopy still with some brown stools otherwise stable no complaints - Current Medication List Current Medications: Active Medications Acetaminophen (Tylenol -) 650 mg PO Q6H PRN PRN Reason: FEVER Last Admin: 10/19/17 11:08 Dose: 650 mg Acetylcysteine (Mucomyst 20 Oral / Inh Use Only*) 200 mg NEB RQID [facility] Last Admin: 10/21/17 11:30 Dose: 200 mg Albuterol Sulfate (Ventolin 0.083% Nebulizer Soln -) 1 amp NEB RQID [facility] Last Admin: 10/21/17 11:30 Dose: 1 amp Amino Acids (Prosource No Carb Liquid Pkt) 30 ml NGT BID@0800,1730 [facility] Last Admin: 10/21/17 08:49 Dose: Not Given Chlorhexidine Gluconate (Hibiclens For Decolonization -) 1 applic TP [facility] Last Admin: 10/20/17 22:27 Dose: 1 applic Diltiazem HCl (Cardizem -) 60 mg PO Q6HPO [facility] Last Admin: 10/21/17 11:20 Dose: 60 mg Dextrose (D10w -) 1,000 mls @ 42 mls/hr IV ASDIR [facility] Last Admin: 10/20/17 16:14 Dose: 42 mls/hr Insulin Aspart (Novolog Vial Sliding Scale -) 1 vial SQ Q4HPO [facility] PRN Reason: Protocol Last Admin: 10/21/17 10:29 Dose: Not Given Insulin Detemir (Levemir Vial) 5 units SQ HS [facility] Last Admin: 10/20/17 22:26 Dose: Not Given Metoprolol Tartrate (Lopressor Injection -) 5 mg IVPUSH Q4H PRN PRN Reason: TACHYCARDIA Last Admin: 10/05/17 17:49 Dose: 5 mg Nystatin (Nystatin Oral Suspension -) 500,000 units PO Q6HPO [facility] Last Admin: 10/21/17 11:20 Dose: 500,000 units Pantoprazole Sodium (Protonix Iv) 40 mg IVPUSH BID [facility] Last Admin: 10/21/17 10:28 Dose: 40 mg - Objective Vital Signs: Vital Signs Temperature 98.7 F 10/21/17 10:00 Pulse Rate 92 H 10/21/17 12:00 Respiratory Rate 24 10/21/17 12:00 Blood Pressure 126/65 10/21/17 12:00 O2 Sat by Pulse Oximetry (%) 95 10/21/17 08:55 Constitutional: Yes: No Distress, Calm, Other (failure tp thrive) Cardiovascular: Yes: Regular Rate and Rhythm Respiratory: Yes: Regular, On Nasal O2, Poor Air Entry Gastrointestinal: Yes: Normal Bowel Sounds, Soft, Other (ng tube in place) Musculoskeletal: Yes: WNL Extremities: Yes: WNL Neurological: Yes: Alert, Oriented Psychiatric: Yes: Alert Labs: CBC, BMP 10/21/17 05:15 10/21/17 05:15 INR, PTT INR 1.16 (0.82-1.09) H 10/15/17 05:46 - ....Imaging Chest X-ray: Report Reviewed, Image Reviewed Assessment/Plan 76 year old male with a significant past medical history of COPD, GI bleed, diverticulosis, HLD, CVA, intussusception, umbilical hernia, DM, HTN, sinus cancer with excision and polypectomy Acute Hypoxic Respiratory Failure Pneumonia Septic Shock Acute on Chronic Renal Failure Lactic Acidosis Diabetic Ketoacidosis improving HTN DM COPD gluteal ulcer discoloration of the toes plan off of abx continue close monitoring monitor wbc monitor h and h close watch stable rest as per icu colonoscopy when bowel cleared cc time 40 min
--- NOTE | 2017-10-21 16:36 | PROC ---
Endoscopy Procedure Endoscopy procedure completed. Please see scanned procedure report. EGD showed mild gastritis and esophagitis. No biopsies taken. Colonoscopy revealed moderate hector-diverticulosis and cecal, non-bleeding angiectasia, which was cauterized via heating probe. Recommend restarting previous diet, maintaining regular bowel habits with Miramax. Keep head of the bed elevated 30 degree, Small dose PPI q am. Procedure results discussed with ICU resident, and pt's over the phone
[2017-10-21] MEDS: DEXTROSE 10%-WATER - 1,000 ML IV SCH (17:32)
[2017-10-21] MEDS: CHLORHEXIDINE GLUCONATE 4% CLEANSER FOR DECOLONIZATION TP SCH (21:43)
[2017-10-21] MEDS: INSULIN (LEVEMIR) 100 UNITS/ML UNITS SQ SCH (21:45)
[2017-10-21] MEDS ORDERED: DEXTROSE 10%-WATER - 1,000 ML IV SCH (21:50)
[2017-10-22] MEDS: NYSTATIN 500,000 UNITS/5 ML SUSPENSION PO SCH ×4 (01:00→17:23)
[2017-10-22] MEDS: INSULIN SLIDING SCALE (NOVOLOG) 1 VIAL SQ SCH ×4 (03:30→17:22)
[2017-10-22] MEDS: dilTIAZem HCL 60 MG TABLET (FP) PO SCH ×3 (06:03→17:21)
[2017-10-22 06:31] LABS: BASO % 0.5 % (0-2.0); HEMATOCRIT 24.3 % (35.4-49); HEMOGLOBIN 8.6 GM/dL (11.7-16.9); LYMPH % 4.6 % (8-40); MCHC 35.6 g/dl (32.0-35.9); MEAN CELL VOLUME 90.1 fl (80-96); MEAN PLT VOLUME 7.9 fl (7.5-11.1); MONO % 7.9 % (3.8-10.2); PLATELET COUNT 450 K/MM3 (134-434); RBC 2.69 M/mm3 (4.00-5.60); RDW 15.4 % (11.9-15.9); WHITE BLOOD COUNT 9.8 K/mm3 (4.0-10.0)
[2017-10-22 06:57] LABS: ALBUMIN 1.5 g/dl (3.4-5.0); ANION GAP 12 (8-16); BLOOD UREA NITROGEN 66 mg/dL (7-18); CALCIUM 7.6 mg/dL (8.5-10.1); CHLORIDE 99 mmol/L (98-107); CO2 30 mmol/L (21-32); GLUCOSE,RANDOM 80 mg/dL (74-106); MAGNESIUM 1.9 mg/dL (1.8-2.4); PHOSPHOROUS 5.8 mg/dL (2.5-4.9); POTASSIUM 3.7 mmol/L (3.5-5.1); SGOT/AST 20 U/L (15-37); SODIUM 141 mmol/L (136-145)
[2017-10-22 06:59] LABS: ALK PHOS 109 U/L (45-117); BILIRUBIN,TOTAL 0.2 mg/dL (0.2-1.0); SGPT/ALT < 6 U/L (12-78); TOT PROT 5.5 g/dl (6.4-8.2)
--- NOTE | 2017-10-22 08:12 | PN ---
Progress Note (short form) - Note Progress Note: Chief Complaint: resp failure History of Present Illness: s/p endoscopy today. no cp, palps, dizziness, sob. calm, alert. Current Medications Acetaminophen (Tylenol -) 650 mg PO Q6H PRN PRN Reason: FEVER Last Admin: 10/19/17 11:08 Dose: 650 mg Acetylcysteine (Mucomyst 20 Oral / Inh Use Only*) 200 mg NEB RQID [facility] Last Admin: 10/21/17 07:30 Dose: 200 mg Albuterol Sulfate (Ventolin 0.083% Nebulizer Soln -) 1 amp NEB RQID [facility] Last Admin: 10/21/17 07:30 Dose: 1 amp Amino Acids (Prosource No Carb Liquid Pkt) 30 ml NGT BID@0800,1730 [facility] Last Admin: 10/21/17 08:49 Dose: Not Given Chlorhexidine Gluconate (Hibiclens For Decolonization -) 1 applic TP [facility] Last Admin: 10/20/17 22:27 Dose: 1 applic Diltiazem HCl (Cardizem -) 60 mg PO Q6HPO [facility] Last Admin: 10/21/17 05:56 Dose: 60 mg Dextrose (D10w -) 1,000 mls @ 42 mls/hr IV ASDIR [facility] Last Admin: 10/20/17 16:14 Dose: 42 mls/hr Insulin Aspart (Novolog Vial Sliding Scale -) 1 vial SQ Q4HPO [facility] PRN Reason: Protocol Last Admin: 10/21/17 10:29 Dose: Not Given Insulin Detemir (Levemir Vial) 5 units SQ [facility] Last Admin: 10/20/17 22:26 Dose: Not Given Metoprolol Tartrate (Lopressor Injection -) 5 mg IVPUSH Q4H PRN PRN Reason: TACHYCARDIA Last Admin: 10/05/17 17:49 Dose: 5 mg Nystatin (Nystatin Oral Suspension -) 500,000 units PO Q6HPO [facility] Last Admin: 10/21/17 05:56 Dose: Not Given Pantoprazole Sodium (Protonix Iv) 40 mg IVPUSH BID [facility] Last Admin: 10/21/17 10:28 Dose: 40 mg - Objective Vital Signs: Vital Signs - 24 hr 10/21/17 10/21/17 10/21/17 08:26 08:55 10:00 Temperature 98.7 F Pulse Rate 92 H Respiratory 22 Rate Blood Pressure 127/61 O2 Sat by Pulse 98 95 Oximetry (%) 10/21/17 10/21/17 10/21/17 12:00 15:52 16:00 Temperature 98.7 F Pulse Rate 92 H 89 95 H Respiratory 24 23 25 H Rate Blood Pressure 126/65 118/61 132/50 O2 Sat by Pulse Oximetry (%) Constitutional: Yes: cachectic, No Distress, Calm Cardiovascular: Yes: Regular Rate and Rhythm. 2/6 murmur at sternal border/apex Respiratory: Yes: Regular, bibasilar rales, nl effort Extremities: No: Cold Edema: No Neurological: Yes: Alert. No: Seizure Psychiatric: No: Agitated dimished dp/pt, gangrene of left foot. Labs: Laboratory Tests 10/21/17 10/21/17 05:15 05:15 WBC 10.5 H Hgb 7.8 L Plt Count 412 Potassium 3.9 Magnesium 1.9 Albumin 1.4 L Echo 06/2017: mod lvh. nl lv fn. nl rv size/fn. 1+ lae. mod-sev mac with mod ms. 1+ mr. nl rvsp. 1+ ao dilation tele: SR, rare atrial runs A/P 76 yo with pmhx of htn, hl, pad, afib (not on AC due to GIB), cva (no residual deficits), copd, dm, mgus, esthesioneuroblastoma treated with radiation therapy , chronic anemia s/p recent GIB admitted with dka, sepsis, resp failure. Hospital course now complicated by episode of afib with rvr afib - not previously a candidate for AC b/c of prior hx of GIB. remains anemic with melena here as well. - s/p IV amio. started po dilt 10/05. now back in sr. hr controlled. - off Amio, remains in sinus. BPs soft but tolerating diltiazem hi dose (90mg q6H)--continue same for now - change to cardizem CD regimen once bp's clearly out of the ngo as far as hypotension - hgb drifted down once ASA resumed--now d/c'd. not a candidate for AC at this time as risks of serious bleeding are > benefits - remains in SR, bp thus far tolerating diltiazem at present dose - 10/19: episode of bradycardia with intermittent dropped qrs complexes and runs of ventricular escape. Will decrease diltiazem to 60 mg q6h. Observe for recurrence of RVR. -10/20-10/21: no rvr or bradycardia on tele mitral stenosis: - aggressive control of afib to prevent tachycardia CHF as doing - defer amio for now, may have to reconsider if recurrent rapid AF despite sepsis/PNA complete resolution PNA with septic shock, resp failure - off phenylephrine as of AM 10/11, hemodynamically stable currently - cont ICU monitoring - extubated 10/12 anemia, GI bleeding: - ongoing UGIB here with stool guaiac + (iker hgb 6.1) - s/p PRBCs, last on 10/18 - counts stable - no cardiac contraindications to planned egd/foc. s/p endoscopy 10/21. htn - home meds changed to diltiazem here for PAF rate control - bp stable cva/pad - con't statin. - per pmd, previously not a candidate for asa due to recent gib and anemia. hgb drifting down on asa here, held again mild asc ao dilation - cont bp control SHANTA - renal following, no sig improvement --> initiated HD 10/07. - currently monitoring off HD.
[2017-10-22] MEDS: ACETYLCYSTEINE 20% 200MG/ML 4 ML VIAL *FOR ORAL / INH USE ONLY NEB SCH ×4 (08:55→20:50)
[2017-10-22] MEDS: ALBUTEROL SO4 0.083% IH SOL 2.5 MG/3 ML VIAL.NEB. NEB SCH ×4 (08:55→20:50)
--- NOTE | 2017-10-22 09:16 | PN ---
Progress Note (short form) - Note Progress Note: Sitting bed eating breakfast c/o leg pain S/P EGD and Colonoscopy On D10W 20ml/hr Vital Signs Period Temp Pulse Resp BP Sys/Sy Pulse Ox Last 24 Hr 97.4 F-98.7 F 85-104 20-26 110-154/46-80 95-95 PE: , awake, alert Neck: supple Lungs: CTA CVS: S1S2 Abd: Benign Ext: No edema, dusky coloration left 1st and 2nd toes Neuro: Awake, open eyes, CMP Sodium 141 mmol/L (136-145) 10/22/17 05:00 Potassium 3.7 mmol/L (3.5-5.1) 10/22/17 05:00 Chloride 99 mmol/L (98-107) 10/22/17 05:00 Carbon Dioxide 30 mmol/L (21-32) 10/22/17 05:00 Anion Gap 12 (8-16) 10/22/17 05:00 BUN 66 mg/dL (7-18) H 10/22/17 05:00 Creatinine 4.0 mg/dL (0.7-1.3) H 10/22/17 05:00 Creat Clearance w eGFR 14.59 (>60) 10/22/17 05:00 POC Glucometer 200.77477 UNITS (80-120) 10/21/17 17:21 Random Glucose 80 mg/dL (74-106) D 10/22/17 05:00 Hemoglobin A1c % 8.5 % (4.8-6.0) H D 10/04/17 06:00 Lactic Acid 2.0 mmol/L (0.0-2.0) 10/03/17 12:00 Calcium 7.6 mg/dL (8.5-10.1) L 10/22/17 05:00 Phosphorus 5.8 mg/dL (2.5-4.9) H 10/22/17 05:00 Magnesium 1.9 mg/dL (1.8-2.4) 10/22/17 05:00 Iron 22 ug/dL (38-169) L 10/06/17 05:50 Ferritin 202.816 ng/ml (16.4-293.9) 10/06/17 05:50 Total Bilirubin 0.2 mg/dL (0.2-1.0) 10/22/17 05:00 AST 20 U/L (15-37) 10/22/17 05:00 ALT < 6 U/L (12-78) L 10/22/17 05:00 Alkaline Phosphatase 109 U/L (45-117) 10/22/17 05:00 Total Protein 5.5 g/dl (6.4-8.2) L 10/22/17 05:00 Albumin 1.5 g/dl (3.4-5.0) L 10/22/17 05:00 Vitamin B12 1602 pg/ml (180-914) H 10/06/17 05:50 Serum Folate 23 ng/ml (3.1-17.5) H 10/06/17 05:50 Current Medications Generic Name Dose Route Start Last Admin Trade Name Freq PRN Reason Stop Dose Admin Acetaminophen 650 mg 10/09/17 05:40 10/19/17 11:08 Tylenol - PO 650 mg Q6H PRN Administration FEVER Acetylcysteine 200 mg 10/18/17 12:00 10/22/17 08:55 Mucomyst 20 Oral / Inh Use Only* NEB 200 mg RQID [facility] Administration Albuterol Sulfate 1 amp 10/18/17 12:00 10/22/17 08:55 Ventolin 0.083% Nebulizer Soln - NEB 1 amp RQID [facility] Administration Amino Acids 30 ml 10/13/17 17:30 10/21/17 17:32 Prosource No Carb Liquid Pkt NGT 30 ml BID@0800,1730 [facility] Administration Chlorhexidine Gluconate 1 applic 10/03/17 22:00 10/21/17 21:43 Hibiclens For Decolonization - TP 1 applic HS [facility] Administration Diltiazem HCl 60 mg 10/20/17 00:00 10/22/17 06:03 Cardizem - PO 60 mg Q6HPO [facility] Administration Dextrose 1,000 mls @ 20 mls/hr 10/21/17 21:50 10/21/17 22:00 D10w - IV 20 mls/hr ASDIR [facility] Administration Insulin Aspart 1 vial 10/19/17 18:00 10/22/17 06:03 Novolog Vial Sliding Scale - SQ Not Given Q4HPO [facility] Protocol Insulin Detemir 5 units 10/19/17 11:21 10/21/17 21:45 Levemir Vial SQ 5 units HS [facility] Administration Metoprolol Tartrate 5 mg 10/03/17 19:00 10/05/17 17:49 Lopressor Injection - IVPUSH 5 mg Q4H PRN Administration TACHYCARDIA Nystatin 500,000 units 10/18/17 12:00 10/22/17 06:03 Nystatin Oral Suspension - PO 500,000 units Q6HPO [facility] Administration Pantoprazole Sodium 40 mg 10/22/17 10:00 Protonix - PO DAILY SEL[facility]IN AP; Acute Hypoxic Respiratory Failure s/p Extubation Pneumonia Septic Shock DM with Acidosis ? DKA,?Lactic acidosis Acute on Chronic Renal Failure Paroxysmal Atrial Fibrillation with RVR HTN COPD Ischemic changes left first and 2nd toes GI bleeding s/p transfuison S/P EGD and Colonoscopy BGM QACHS and 3 a.m. Levemir 5 units daily, Continue D10 for now Continue Novolog coverage Chart reviewed Start D10W at 42 ml/hr whenever tube feeding is on hold or discontinued until food intake is adequate. As pt was admitted with acidosis possibly DKA, need to continue to administer long acting Insulin Will f/u
[2017-10-22] MEDS ORDERED: PANTOPRAZOLE 40 MG TABLET (FP) PO SCH (10:00)
--- NOTE | 2017-10-22 10:08 | PN ---
Progress Note (short form) - Note Progress Note: Patient seen and examined. Note to follow.
[2017-10-22] MEDS: AMINO ACIDS/PROTEIN HYDROLYS 30 ML LIQUID.PKT NGT SCH ×2 (10:21→17:23)
--- NOTE | 2017-10-22 11:30 | PN ---
Physical Exam: SUBJECTIVE: Patient seen and examined in ICU. Endoscopy/Colonoscopy showed non- bleeding angiectasis that was cauterized. NG tube pulled. Lazcano removed, patient retained urine, was straight cathed. Still retained urine so lazcano was placed. Patient appears much improved. Denies chest pain. OBJECTIVE: Vital Signs Period Temp Pulse Resp BP Sys/Sy Pulse Ox Last 24 Hr 97.4 F-98.7 F 85-104 20-26 110-154/46-80 95-95 GENERAL: The patient is awake, alert, and fully oriented, in no acute distress. HEAD: Normal with no signs of trauma. EYES: PERRL, extraocular movements intact, sclera anicteric, conjunctiva clear. No ptosis. LUNGS: Breath sounds equal, clear to auscultation bilaterally, no accessory muscle use. HEART: Regular rate and rhythm, S1, S2 2/6 systolic murmur ABDOMEN: Soft, nontender, nondistended, normoactive bowel sounds, no guarding, no rebound, no hepatosplenomegaly, no masses. NEUROLOGICAL: Cranial nerves II through XII grossly intact. Moves all extremities SKIN: Gangrenous great and second toe on left foot Laboratory Results - last 24 hr 10/18/17 10/19/17 10/19/17 20:10 11:59 14:56 WBC RBC Hgb Hct MCV MCH MCHC RDW Plt Count MPV Neutrophils % Lymphocytes % Monocytes % Eosinophils % Basophils % Sodium Potassium Chloride Carbon Dioxide Anion Gap BUN Creatinine Creat Clearance w eGFR POC Glucometer 174.73345 300.75286 Random Glucose Calcium Phosphorus Magnesium Total Bilirubin AST ALT Alkaline Phosphatase Total Protein Albumin Blood Type O NEGATIVE Antibody Screen Negative Crossmatch See Detail 10/19/17 10/21/17 10/21/17 18:25 09:28 17:21 WBC RBC Hgb Hct MCV MCH MCHC RDW Plt Count MPV Neutrophils % Lymphocytes % Monocytes % Eosinophils % Basophils % Sodium Potassium Chloride Carbon Dioxide Anion Gap BUN Creatinine Creat Clearance w eGFR POC Glucometer 255.51040 189.70184 200.39859 Random Glucose Calcium Phosphorus Magnesium Total Bilirubin AST ALT Alkaline Phosphatase Total Protein Albumin Blood Type Antibody Screen Crossmatch 10/21/17 10/22/17 10/22/17 21:20 03:29 05:00 WBC 9.8 RBC 2.69 L Hgb 8.6 L D Hct 24.3 L MCV 90.1 MCH 32.0 MCHC 35.6 RDW 15.4 Plt Count 450 H MPV 7.9 Neutrophils % 86.0 H Lymphocytes % 4.6 L Monocytes % 7.9 Eosinophils % 1.0 D Basophils % 0.5 Sodium Potassium Chloride Carbon Dioxide Anion Gap BUN Creatinine Creat Clearance w eGFR POC Glucometer > 400 186.47444 Random Glucose Calcium Phosphorus Magnesium Total Bilirubin AST ALT Alkaline Phosphatase Total Protein Albumin Blood Type Antibody Screen Crossmatch 10/22/17 10/22/17 10/22/17 05:00 05:00 05:53 WBC RBC Hgb Hct MCV MCH MCHC RDW Plt Count MPV Neutrophils % Lymphocytes % Monocytes % Eosinophils % Basophils % Sodium 141 Potassium 3.7 Chloride 99 Carbon Dioxide 30 Anion Gap 12 BUN 66 H Creatinine 4.0 H Creat Clearance w eGFR 14.59 POC Glucometer 95.78713 Random Glucose 80 D Calcium 7.6 L Phosphorus 5.8 H Magnesium 1.9 Total Bilirubin 0.2 AST 20 ALT < 6 L Alkaline Phosphatase 109 Total Protein 5.5 L Albumin 1.5 L Blood Type O NEGATIVE Antibody Screen Negative Crossmatch 10/22/17 10:40 WBC RBC Hgb Hct MCV MCH MCHC RDW Plt Count MPV Neutrophils % Lymphocytes % Monocytes % Eosinophils % Basophils % Sodium Potassium Chloride Carbon Dioxide Anion Gap BUN Creatinine Creat Clearance w eGFR POC Glucometer 201.30261 Random Glucose Calcium Phosphorus Magnesium Total Bilirubin AST ALT Alkaline Phosphatase Total Protein Albumin Blood Type Antibody Screen Crossmatch Active Medications Generic Name Dose Route Start Last Admin Trade Name Freq PRN Reason Stop Dose Admin Acetaminophen 650 mg 10/09/17 05:40 10/19/17 11:08 Tylenol - PO 650 mg Q6H PRN Administration FEVER Acetylcysteine 200 mg 10/18/17 12:00 10/22/17 08:55 Mucomyst 20 Oral / Inh Use Only* NEB 200 mg RQID [facility] Administration Albuterol Sulfate 1 amp 10/18/17 12:00 10/22/17 08:55 Ventolin 0.083% Nebulizer Soln - NEB 1 amp RQID [facility] Administration Amino Acids 30 ml 10/13/17 17:30 10/22/17 10:21 Prosource No Carb Liquid Pkt NGT 30 ml BID@0800,1730 [facility] Administration Chlorhexidine Gluconate 1 applic 10/03/17 22:00 10/21/17 21:43 Hibiclens For Decolonization - TP 1 applic HS [facility] Administration Diltiazem HCl 60 mg 10/20/17 00:00 10/22/17 06:03 Cardizem - PO 60 mg Q6HPO [facility] Administration Dextrose 1,000 mls @ 20 mls/hr 10/21/17 21:50 10/21/17 22:00 D10w - IV 20 mls/hr ASDIR [facility] Administration Insulin Aspart 1 vial 10/22/17 11:00 Novolog Vial Sliding Scale - SQ TIDAC [facility] Protocol Insulin Detemir 5 units 10/19/17 11:21 10/21/17 21:45 Levemir Vial SQ 5 units HS [facility] Administration Metoprolol Tartrate 5 mg 10/03/17 19:00 10/05/17 17:49 Lopressor Injection - IVPUSH 5 mg Q4H PRN Administration TACHYCARDIA Nystatin 500,000 units 10/18/17 12:00 10/22/17 06:03 Nystatin Oral Suspension - PO 500,000 units Q6HPO [facility] Administration Pantoprazole Sodium 40 mg 10/22/17 10:00 10/22/17 10:21 Protonix - PO 40 mg DAILY [facility] Administration ASSESSMENT/PLAN: 76M with history of COPD, IDDM, pneumonia with history of prior intubation here with pneumonia and dka. DKA resolved. Intubated, then extubated. Stable respiratory status on NC. Respiratory #Acute Hypoxic Respiratory Failure -Likely secondary to Pneumonia -ABx per ID -Extubated, stable on NC #COPD -Continue Nebulizers -Continue Ventilation #Atelectasis 2/2 trendelenburg positioning -Oxygen -Chest PT -Repositioning -Resolved Infectious Disease #Septic Shock secondary to Pneumonia -ABx per ID. -Blood cultures negative -Sputum cultures staph, hector sensitive -Legionella negative -HOB elevated -Aspiration precautions -Off pressors -Resolved GI #Melena -Hgb 8.6 today, no episodes of melena last night -Scope showed non-bleeding angiectasis that was cauterized -Protonix 40mg daily -Daily CBCs Nephrology #Acute on Chronic Renal Failure -Likely ATN secondary from Septic hock -Urine output 2500 yesterday -Trialysis removed per nephrology rec #AG and Non-AG Metabolic acidosis -Acidosis resolved Cardiovascular #Paroxysmal Atrial Fibrillation -Continue Cardizem -Metoprolol 5mg IVP Q4H PRN for Tachycardia #HTN -Patient not hypertensive -Will continue to monitor BP #CAD/PVD -Ischemia in left toe likely secondary to pressors, hypotension, and prior surgery in the left foot. -Left foot is warm, pink with discoloration around 1st/2nd toes -Palpable pulses in both feet today -Vascular aware, following -Will optimize medically -Not candidate for asa, heparin due to hgb drop, h/o gi bleed #Anemia -Hgb stable today -CBCs stable, next will be 6am tomorrow -Transfuse <7 or per GI reqs Endocrine #DKA-Resolved -Continue ISS -Continue BGM -Continue Levemir Neurology #Rule out Critical Illness Myopathy/Polyneuropathy -Patient following commands, moving all four extremities, deconditioned -Start PT F/E/N -On no fluids -Electrolytes wnl -Taking PO, puree diet with nectar liquids Prophylaxis -Anticoagulation held due to GI bleed -Protonix 40mg IV BID daily Disposition -Patient is DNR/DNI -Transfer to tele Visit type - Emergency Visit Emergency Visit: Yes ED Registration Date: 10/03/17 Care time: The patient presented to the Emergency Department on the above date and was hospitalized for further evaluation of their emergent condition. - New Patient This patient is new to me today: No - Critical Care Critical Care patient: No Total Critical Care Time (in minutes): 45 Critical Care Statement: The care of this patient involved high complexity decision making to prevent further life threatening deterioration of the patient 's condition and/or to evaluate & treat vital organ system(s) failure or risk of failure.
--- NOTE | 2017-10-22 11:32 | PN ---
Teaching Attending Note Name of Resident: Curt Caputo ATTENDING PHYSICIAN STATEMENT I saw and evaluated the patient. I reviewed the resident's note and discussed the case with the resident. I agree with the resident's findings and plan as documented. SUBJECTIVE: Patient seen and examined in the ICU. Awake and alert and interactive. Reports some dry cough. Denies CP or SOB. OBJECTIVE: Gen: NAD at rest Heart: RRR Lung: decreased breath sounds at the bases, scattered rhonchi Abd: soft, nontender Ext: dry gangrene left foot Laboratory Results - last 24 hr 10/18/17 10/19/17 10/19/17 20:10 11:59 14:56 WBC RBC Hgb Hct MCV MCH MCHC RDW Plt Count MPV Neutrophils % Lymphocytes % Monocytes % Eosinophils % Basophils % Sodium Potassium Chloride Carbon Dioxide Anion Gap BUN Creatinine Creat Clearance w eGFR POC Glucometer 174.26200 [phone] Random Glucose Calcium Phosphorus Magnesium Total Bilirubin AST ALT Alkaline Phosphatase Total Protein Albumin Blood Type O NEGATIVE Antibody Screen Negative Crossmatch See Detail 10/19/17 10/21/17 10/21/17 18:25 09:28 17:21 WBC RBC Hgb Hct MCV MCH MCHC RDW Plt Count MPV Neutrophils % Lymphocytes % Monocytes % Eosinophils % Basophils % Sodium Potassium Chloride Carbon Dioxide Anion Gap BUN Creatinine Creat Clearance w eGFR POC Glucometer 255.36857 189.06888 200.74714 Random Glucose Calcium Phosphorus Magnesium Total Bilirubin AST ALT Alkaline Phosphatase Total Protein Albumin Blood Type Antibody Screen Crossmatch 10/21/17 10/22/17 10/22/17 21:20 03:29 05:00 WBC 9.8 RBC 2.69 L Hgb 8.6 L D Hct 24.3 L MCV 90.1 MCH 32.0 MCHC 35.6 RDW 15.4 Plt Count 450 H MPV 7.9 Neutrophils % 86.0 H Lymphocytes % 4.6 L Monocytes % 7.9 Eosinophils % 1.0 D Basophils % 0.5 Sodium Potassium Chloride Carbon Dioxide Anion Gap BUN Creatinine Creat Clearance w eGFR POC Glucometer > 400 186.62149 Random Glucose Calcium Phosphorus Magnesium Total Bilirubin AST ALT Alkaline Phosphatase Total Protein Albumin Blood Type Antibody Screen Crossmatch 10/22/17 10/22/17 10/22/17 05:00 05:00 05:53 WBC RBC Hgb Hct MCV MCH MCHC RDW Plt Count MPV Neutrophils % Lymphocytes % Monocytes % Eosinophils % Basophils % Sodium 141 Potassium 3.7 Chloride 99 Carbon Dioxide 30 Anion Gap 12 BUN 66 H Creatinine 4.0 H Creat Clearance w eGFR 14.59 POC Glucometer 95.71378 Random Glucose 80 D Calcium 7.6 L Phosphorus 5.8 H Magnesium 1.9 Total Bilirubin 0.2 AST 20 ALT < 6 L Alkaline Phosphatase 109 Total Protein 5.5 L Albumin 1.5 L Blood Type O NEGATIVE Antibody Screen Negative Crossmatch 10/22/17 10:40 WBC RBC Hgb Hct MCV MCH MCHC RDW Plt Count MPV Neutrophils % Lymphocytes % Monocytes % Eosinophils % Basophils % Sodium Potassium Chloride Carbon Dioxide Anion Gap BUN Creatinine Creat Clearance w eGFR POC Glucometer 201.16467 Random Glucose Calcium Phosphorus Magnesium Total Bilirubin AST ALT Alkaline Phosphatase Total Protein Albumin Blood Type Antibody Screen Crossmatch ASSESSMENT AND PLAN: Acute Hypoxic Respiratory Failure improving Pneumonia treated Septic Shock resolving Acute on Chronic Renal Failure requiring HD Lactic Acidosis resolved Diabetic Ketoacidosis improving Paroxysmal Atrial Fibrillation with RVR GI bleed HTN DM COPD - monitor H/H - Normal transfusion thresholds - monitoring off antibiotics - Monitor off HD per renal, will D?C access for now - monitor urine output, creatinine - monitor I/Os - glucose control - rate control - Off AC at present - taper FiO2 to keep SpO2 >90% - aspiration precautions - DVT/GI prophylaxis - local wound care - Cardiac Telemetry monitoring Dr Acosta Critical care time spent in reviewing chart, evaluating patient and formulating plan 36 min
--- NOTE | 2017-10-22 12:04 | PN ---
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 On puree/honey thick liquids. Selected Entries 10/21/17 10/22/17 10/22/17 23:20 01:00 06:00 Breakfast Supper 75% Temperature 98.2 F 97.9 F 10/22/17 10/22/17 10:52 11:21 Breakfast 100% Supper Temperature 98 F Laboratory Tests 10/22/17 05:00 WBC 9.8 Pt improving, tolerating modified diet. On nystatin. MBS to upgrade diet with safety/r/o silent aspiration.
--- NOTE | 2017-10-22 12:29 | PN ---
Progress Note (short form) - Note Progress Note: Renal follow up for SHANTA Pt seen and examined in the ICU awake and alert s/p endoscopy/colonoscopy yesterday no acute complaints making urine in [place] Vital Signs Temperature 98 F 10/22/17 10:52 Pulse Rate 88 10/22/17 10:52 Respiratory Rate 22 10/22/17 10:52 Blood Pressure 128/56 10/22/17 10:52 O2 Sat by Pulse Oximetry (%) 95 10/21/17 20:51 Intake & Output 10/19/17 10/20/17 10/21/17 10/22/17 23:59 23:59 23:59 23:59 Intake Total 540 4700 1070 240 Output Total 1900 2400 2520 1000 Balance -1360 2300 -1450 -760 Weight 54.885 kg 55.61 kg 54 kg 51.936 kg NAD RRR, No M/R Dec BS at lung bases soft NT/ND No LE edema, clubbing or cyanosis heels in dressing CBC, BMP 10/22/17 05:00 10/22/17 05:00 Laboratory Tests 10/22/17 05:00 Calcium 7.6 L Phosphorus 5.8 H Magnesium 1.9 Current Medications Acetaminophen (Tylenol -) 650 mg PO Q6H PRN PRN Reason: FEVER Last Admin: 10/19/17 11:08 Dose: 650 mg Acetylcysteine (Mucomyst 20 Oral / Inh Use Only*) 200 mg NEB RQID [facility] Last Admin: 10/22/17 12:23 Dose: 200 mg Albuterol Sulfate (Ventolin 0.083% Nebulizer Soln -) 1 amp NEB RQID [facility] Last Admin: 10/22/17 12:24 Dose: 1 amp Amino Acids (Prosource No Carb Liquid Pkt) 30 ml NGT BID@0800,1730 [facility] Last Admin: 10/22/17 10:21 Dose: 30 ml Chlorhexidine Gluconate (Hibiclens For Decolonization -) 1 applic TP HS [facility] Last Admin: 10/21/17 21:43 Dose: 1 applic Diltiazem HCl (Cardizem -) 60 mg PO Q6HPO [facility] Last Admin: 10/22/17 06:03 Dose: 60 mg Dextrose (D10w -) 1,000 mls @ 20 mls/hr IV ASDIR [facility] Last Admin: 10/21/17 22:00 Dose: 20 mls/hr Insulin Aspart (Novolog Vial Sliding Scale -) 1 vial SQ TIDAC [facility] PRN Reason: Protocol Insulin Detemir (Levemir Vial) 5 units SQ HS [facility] Last Admin: 10/21/17 21:45 Dose: 5 units Metoprolol Tartrate (Lopressor Injection -) 5 mg IVPUSH Q4H PRN PRN Reason: TACHYCARDIA Last Admin: 10/05/17 17:49 Dose: 5 mg Nystatin (Nystatin Oral Suspension -) 500,000 units PO Q6HPO [facility] Last Admin: 10/22/17 06:03 Dose: 500,000 units Pantoprazole Sodium (Protonix -) 40 mg PO DAILY [facility] Last Admin: 10/22/17 10:21 Dose: 40 mg 76 year old male with a significant past medical history of COPD, GI bleed, diverticulosis, HLD, CVA, intussusception, umbilical hernia, DM, HTN, sinus cancer with excision and polypectomy who presents to the ED, accompanied by , s/p high blood sugar levels earlier today. #SHANTA on CKD likely due to ATN in setting of sepsis #Sepsis/PNA #Metabolic acidosis (now resolved) #Anemia #Hx of Hypertension #DM on Insulin #Hyperphosphatemia no indication for [employer] today, dialysis catheter to be removed pt failed trial of void yesterday, start flomax start Torsemide 40mg Daily for management of pulmonary volume Trend BUN/Cr daily keep MAP > 65 Transfuse for Hgb < 8 Will give Aranesp SC As pt has CKD and this can be a contributing factor for his anemia trend phos for now Tomás Al DO
[2017-10-22] MEDS ORDERED: Darbepoetin Alfa in Polysorbat 25 MCG/0.4 ML DISP.SYRIN SQ SCH (12:30)
--- NOTE | 2017-10-22 12:50 | PN ---
Progress Note, Physician History of Present Illness: No acute events. Awake, alert, comfortable. - Current Medication List Current Medications: Active Medications Acetaminophen (Tylenol -) 650 mg PO Q6H PRN PRN Reason: FEVER Last Admin: 10/19/17 11:08 Dose: 650 mg Acetylcysteine (Mucomyst 20 Oral / Inh Use Only*) 200 mg NEB RQID [facility] Last Admin: 10/22/17 12:23 Dose: 200 mg Albuterol Sulfate (Ventolin 0.083% Nebulizer Soln -) 1 amp NEB RQID [facility] Last Admin: 10/22/17 12:24 Dose: 1 amp Amino Acids (Prosource No Carb Liquid Pkt) 30 ml NGT BID@0800,1730 [facility] Last Admin: 10/22/17 10:21 Dose: 30 ml Chlorhexidine Gluconate (Hibiclens For Decolonization -) 1 applic TP [facility] Last Admin: 10/21/17 21:43 Dose: 1 applic Darbepoetin Trell (Aranesp -) 25 mcg SQ Q7D@1000 [facility] Diltiazem HCl (Cardizem -) 60 mg PO Q6HPO [facility] Last Admin: 10/22/17 06:03 Dose: 60 mg Dextrose (D10w -) 1,000 mls @ 20 mls/hr IV ASDIR [facility] Last Admin: 10/21/17 22:00 Dose: 20 mls/hr Insulin Aspart (Novolog Vial Sliding Scale -) 1 vial SQ TIDAC [facility] PRN Reason: Protocol Insulin Detemir (Levemir Vial) 5 units SQ [facility] Last Admin: 10/21/17 21:45 Dose: 5 units Metoprolol Tartrate (Lopressor Injection -) 5 mg IVPUSH Q4H PRN PRN Reason: TACHYCARDIA Last Admin: 10/05/17 17:49 Dose: 5 mg Nystatin (Nystatin Oral Suspension -) 500,000 units PO Q6HPO [facility] Last Admin: 10/22/17 06:03 Dose: 500,000 units Pantoprazole Sodium (Protonix -) 40 mg PO DAILY [facility] Last Admin: 10/22/17 10:21 Dose: 40 mg Tamsulosin HCl (Flomax -) 0.4 mg PO DAILY@0830 [facility] Torsemide (Demadex -) 40 mg PO DAILY [facility] - Objective Vital Signs: Vital Signs Temperature 98 F 10/22/17 10:00 Pulse Rate 86 10/22/17 12:00 Respiratory Rate 22 10/22/17 12:00 Blood Pressure 124/46 10/22/17 12:00 O2 Sat by Pulse Oximetry (%) 95 10/21/17 20:51 Constitutional: Yes: No Distress, Calm Gastrointestinal: Yes: Soft. No: Distention, Tenderness, Vomiting Labs: CBC, BMP 10/22/17 05:00 10/22/17 05:00 INR, PTT INR 1.16 (0.82-1.09) H 10/15/17 05:46 Laboratory Last Values WBC 9.8 K/mm3 (4.0-10.0) 10/22/17 05:00 Corrected WBC (auto) Cancelled 10/20/17 18:00 RBC 2.69 M/mm3 (4.00-5.60) L 10/22/17 05:00 Hgb 8.6 GM/dL (11.7-16.9) L D 10/22/17 05:00 Hct 24.3 % (35.4-49) L 10/22/17 05:00 MCV 90.1 fl (80-96) 10/22/17 05:00 MCH 32.0 pg (25.7-33.7) 10/22/17 05:00 MCHC 35.6 g/dl (32.0-35.9) 10/22/17 05:00 RDW 15.4 % (11.9-15.9) 10/22/17 05:00 Plt Count 450 K/MM3 (134-434) H 10/22/17 05:00 MPV 7.9 fl (7.5-11.1) 10/22/17 05:00 Absolute Neuts (auto) Cancelled 10/20/17 18:00 Absolute Lymphs (auto) Cancelled 10/20/17 18:00 Absolute Monos (auto) Cancelled 10/20/17 18:00 Absolute Eos (auto) Cancelled 10/20/17 18:00 Absolute Basos (auto) Cancelled 10/20/17 18:00 Add Manual Diff Cancelled 10/20/17 18:00 Total Counted 98 10/09/17 05:50 Neutrophils % 86.0 % (42.8-82.8) H 10/22/17 05:00 Neutrophils % (Manual) 92.9 % (42.8-82.8) H* 10/14/17 05:43 Band Neutrophils % 0.0 % 10/14/17 05:43 Lymphocytes % 4.6 % (8-40) L 10/22/17 05:00 Lymphocytes % (Manual) 2.0 % (8-40) L D 10/14/17 05:43 Monocytes % 7.9 % (3.8-10.2) 10/22/17 05:00 Monocytes % (Manual) 3 % (3.8-10.2) L 10/14/17 05:43 Eosinophils % 1.0 % (0-4.5) D 10/22/17 05:00 Eosinophils % (Manual) 0.0 % (0-4.5) D 10/14/17 05:43 Basophils % 0.5 % (0-2.0) 10/22/17 05:00 Basophils % (Manual) 1.0 % (0-2.0) D 10/14/17 05:43 Myelocytes % (Man) 1 % (0-2) D 10/14/17 05:43 Promyelocytes % (Man) 0 % (0-2) 10/14/17 05:43 Blast Cells % (Manual) 0 % (0-0) 10/14/17 05:43 Nucleated RBC % 0 % (0-0) 10/14/17 05:43 Metamyelocytes 0 % (0-2) 10/14/17 05:43 Hypochromia 1+ 10/07/17 06:05 Toxic Granulation 1+ 10/14/17 05:43 Platelet Estimate Adequate 10/18/17 18:00 Platelet Comment 10/18/17 18:00 Normal RBC Morphology Cancelled 10/20/17 18:00 Polychromasia Rare 10/18/17 18:00 Poikilocytosis 1+ 10/18/17 18:00 Anisocytosis 1+ 10/18/17 18:00 Microcytosis 1+ 10/06/17 05:50 Macrocytosis 1+ 10/18/17 18:00 Tear Drop Cells 1+ 10/05/17 05:50 Ovalocytes 1+ 10/18/17 18:00 Stomatocytes 1+ 10/14/17 05:43 Kalama Cells 2+ 10/07/17 06:05 Schistocytes 1+ 10/06/17 05:50 PT with INR 13.10 SEC (9.98-11.88) H 10/15/17 05:46 INR 1.16 (0.82-1.09) H 10/15/17 05:46 PTT (Actin FS) 23.7 SECONDS (26.9-34.4) L 10/15/17 05:46 Anticoagulation Therapy No Result Required. 10/07/17 06:30 Puncture Site Left brachial 10/11/17 09:20 Patient Temperature Cancelled 10/05/17 06:50 ABG pH 7.42 (7.35-7.45) 10/11/17 09:20 ABG pCO2 at Pt Temp 40.3 mmHg (35-45) 10/11/17 09:20 ABG pO2 at Pt Temp 120.0 mmHg (70-100) H D 10/11/17 09:20 ABG HCO3 25.6 meq/L (22-26) 10/11/17 09:20 ABG O2 Sat (Measured) 98.4 % (90-98.9) 10/11/17 09:20 ABG O2 Content 10.5 % vol (15-22) L 10/11/17 09:20 ABG Base Excess 1.6 meq/l (-2-2) 10/11/17 09:20 Ra Test Positive 10/11/17 09:20 O2 Delivery Device A/c 10/11/17 09:20 Oxygen Flow Rate 40% 10/11/17 09:20 Vent Mode A/c 10/11/17 09:20 Vent Rate 16 10/11/17 09:20 Mechanical Rate Yes 10/11/17 09:20 PEEP 5.0 cmH2O 10/11/17 09:20 Pressure Support Vent 450 10/11/17 09:20 Sodium 141 mmol/L (136-145) 10/22/17 05:00 Potassium 3.7 mmol/L (3.5-5.1) 10/22/17 05:00 Chloride 99 mmol/L (98-107) 10/22/17 05:00 Carbon Dioxide 30 mmol/L (21-32) 10/22/17 05:00 Anion Gap 12 (8-16) 10/22/17 05:00 BUN 66 mg/dL (7-18) H 10/22/17 05:00 Creatinine 4.0 mg/dL (0.7-1.3) H 10/22/17 05:00 Creat Clearance w eGFR 14.59 (>60) 10/22/17 05:00 POC Glucometer 201.48500 UNITS (80-120) 10/22/17 10:40 Random Glucose 80 mg/dL (74-106) D 10/22/17 05:00 Hemoglobin A1c % 8.5 % (4.8-6.0) H D 10/04/17 06:00 Lactic Acid 2.0 mmol/L (0.0-2.0) 10/03/17 12:00 Calcium 7.6 mg/dL (8.5-10.1) L 10/22/17 05:00 Phosphorus 5.8 mg/dL (2.5-4.9) H 10/22/17 05:00 Magnesium 1.9 mg/dL (1.8-2.4) 10/22/17 05:00 Iron 22 ug/dL (38-169) L 10/06/17 05:50 Ferritin 202.816 ng/ml (16.4-293.9) 10/06/17 05:50 Total Bilirubin 0.2 mg/dL (0.2-1.0) 10/22/17 05:00 AST 20 U/L (15-37) 10/22/17 05:00 ALT < 6 U/L (12-78) L 10/22/17 05:00 Alkaline Phosphatase 109 U/L (45-117) 10/22/17 05:00 Total Protein 5.5 g/dl (6.4-8.2) L 10/22/17 05:00 Albumin 1.5 g/dl (3.4-5.0) L 10/22/17 05:00 Vitamin B12 1602 pg/ml (180-914) H 10/06/17 05:50 Serum Folate 23 ng/ml (3.1-17.5) H 10/06/17 05:50 Urine Color Linh 10/03/17 10:32 Urine Appearance Turbid 10/03/17 10:32 Urine pH 5.0 (5.0-8.0) 10/03/17 10:32 Ur Specific Delta 1.016 (1.001-1.035) 10/03/17 10:32 Urine Protein 2+ (NEGATIVE) H 10/03/17 10:32 Urine Glucose (UA) 2+ (NEGATIVE) H 10/03/17 10:32 Urine Ketones Trace (NEGATIVE) H 10/03/17 10:32 Urine Blood Negative (NEGATIVE) 10/03/17 10:32 Urine Nitrite Negative (NEGATIVE) 10/03/17 10:32 Urine Bilirubin Negative (<2.0 mg/dL) 10/03/17 10:32 Urine Urobilinogen Negative mg/dL (0.2-1.0) 10/03/17 10:32 Ur Leukocyte Esterase Negative (NEGATIVE) 10/03/17 10:32 Urine WBC (Auto) 6 /hpf (3-5) 10/03/17 10:32 Urine RBC (Auto) 4 /hpf (0-3) 10/03/17 10:32 Ur Epithelial Cells Rare /HPF (FEW) 10/03/17 10:32 Hyaline Casts 18 /lpf 10/03/17 10:32 Granular Casts 18 /lpf 10/03/17 10:32 Stool Occult Blood Positive (NEGATIVE) 10/12/17 18:30 Alcohol, Quantitative < 5.0 mg/dL (0.0-5.0) 10/02/17 23:32 Acetone, Qual Trace (NEGATIVE) 10/02/17 23:32 Hepatitis A Ab Total Negative (Negative) 10/07/17 17:30 Hep Bs Antigen Negative (Negative) 10/07/17 17:30 Hep Bs Antibody Non reactive (.) 10/07/17 17:30 Hep B Core Total Ab Negative (Negative) 10/07/17 17:30 Hep C Ab Diagnostic <0.1 s/co ratio (0.0-0.9) 10/07/17 17:30 Liver Fibrosis Interp (.) 10/07/17 17:30 Blood Type O NEGATIVE 10/22/17 05:00 Antibody Screen Negative 10/22/17 05:00 Crossmatch See Detail 10/18/17 20:10 Problem List - Problems (1) Angiectasia Code(s): I99.8 - OTHER DISORDER OF CIRCULATORY SYSTEM (2) AVM (arteriovenous malformation) of colon Code(s): Q27.33 - ARTERIOVENOUS MALFORMATION OF DIGESTIVE SYSTEM VESSEL (3) AVM (arteriovenous malformation) of colon with hemorrhage Code(s): Q27.33 - ARTERIOVENOUS MALFORMATION OF DIGESTIVE SYSTEM VESSEL (4) Afib Code(s): I48.91 - UNSPECIFIED ATRIAL FIBRILLATION (5) DKA (diabetic ketoacidoses) Code(s): E13.10 - OTH DIABETES MELLITUS WITH KETOACIDOSIS WITHOUT COMA (6) Ischemia of lower extremity Code(s): I99.8 - OTHER DISORDER OF CIRCULATORY SYSTEM Assessment/Plan Cecal angiectasia, cauterized. Plan colonic diverticulosis esophagitis and gastritis. Continue current management. Diet as tolerated. Monitor for signs and symptoms of GI bleeding. Await hard stool, constipation.
[2017-10-22] MEDS: TORSEMIDE 20 MG TABLET (FP) PO SCH (13:52)
--- NOTE | 2017-10-22 15:07 | PN ---
Progress Note, Physician History of Present Illness: alert stable no complaints post colonoscopy - Current Medication List Current Medications: Active Medications Acetaminophen (Tylenol -) 650 mg PO Q6H PRN PRN Reason: FEVER Last Admin: 10/19/17 11:08 Dose: 650 mg Acetylcysteine (Mucomyst 20 Oral / Inh Use Only*) 200 mg NEB RQID [facility] Last Admin: 10/22/17 12:23 Dose: 200 mg Albuterol Sulfate (Ventolin 0.083% Nebulizer Soln -) 1 amp NEB RQID [facility] Last Admin: 10/22/17 12:24 Dose: 1 amp Amino Acids (Prosource No Carb Liquid Pkt) 30 ml NGT BID@0800,1730 [facility] Last Admin: 10/22/17 10:21 Dose: 30 ml Chlorhexidine Gluconate (Hibiclens For Decolonization -) 1 applic TP [facility] Last Admin: 10/21/17 21:43 Dose: 1 applic Darbepoetin Trell (Aranesp -) 25 mcg SQ Q7D@1000 [facility] Diltiazem HCl (Cardizem -) 60 mg PO Q6HPO [facility] Last Admin: 10/22/17 11:00 Dose: 60 mg Dextrose (D10w -) 1,000 mls @ 20 mls/hr IV ASDIR [facility] Last Admin: 10/21/17 22:00 Dose: 20 mls/hr Insulin Aspart (Novolog Vial Sliding Scale -) 1 vial SQ TIDAC [facility] PRN Reason: Protocol Last Admin: 10/22/17 10:00 Dose: 2 units Insulin Detemir (Levemir Vial) 5 units SQ [facility] Last Admin: 10/21/17 21:45 Dose: 5 units Metoprolol Tartrate (Lopressor Injection -) 5 mg IVPUSH Q4H PRN PRN Reason: TACHYCARDIA Last Admin: 10/05/17 17:49 Dose: 5 mg Nystatin (Nystatin Oral Suspension -) 500,000 units PO Q6HPO [facility] Last Admin: 10/22/17 13:49 Dose: 500,000 units Pantoprazole Sodium (Protonix -) 40 mg PO DAILY [facility] Last Admin: 10/22/17 10:21 Dose: 40 mg Tamsulosin HCl (Flomax -) 0.4 mg PO DAILY@0830 [facility] Torsemide (Demadex -) 40 mg PO DAILY [facility] Last Admin: 10/22/17 13:52 Dose: 40 mg - Objective Vital Signs: Vital Signs Temperature 98 F 10/22/17 10:00 Pulse Rate 86 10/22/17 12:00 Respiratory Rate 22 10/22/17 12:00 Blood Pressure 124/46 10/22/17 12:00 O2 Sat by Pulse Oximetry (%) 95 10/21/17 20:51 Constitutional: Yes: No Distress, Calm Neck: Yes: Supple, Trachea Midline Cardiovascular: Yes: Regular Rate and Rhythm Respiratory: Yes: Regular, On Nasal O2, Poor Air Entry Gastrointestinal: Yes: Normal Bowel Sounds, Soft Musculoskeletal: Yes: WNL Extremities: Yes: WNL Neurological: Yes: Alert, Oriented Psychiatric: Yes: Alert, Oriented Labs: CBC, BMP 10/22/17 05:00 10/22/17 05:00 INR, PTT INR 1.16 (0.82-1.09) H 10/15/17 05:46 Assessment/Plan 76 year old male with a significant past medical history of COPD, GI bleed, diverticulosis, HLD, CVA, intussusception, umbilical hernia, DM, HTN, sinus cancer with excision and polypectomy Acute Hypoxic Respiratory Failure Pneumonia Septic Shock Acute on Chronic Renal Failure Lactic Acidosis Diabetic Ketoacidosis improving HTN DM COPD gluteal ulcer discoloration of the toes janene plan off of abx continue close monitoring monitor h and h close watch stable rest as per icu nutrition cc time 40 min
--- NOTE | 2017-10-22 17:21 | PN ---
Progress Note (short form) - Note Progress Note: Chief Complaint: afib History of Present Illness: torsemide started today by renal. no cp, palps, dizziness, sob. more sleepy today, less interactive. Current Medications Acetaminophen (Tylenol -) 650 mg PO Q6H PRN PRN Reason: FEVER Last Admin: 10/19/17 11:08 Dose: 650 mg Acetylcysteine (Mucomyst 20 Oral / Inh Use Only*) 200 mg NEB RQID [facility] Last Admin: 10/22/17 16:52 Dose: 200 mg Albuterol Sulfate (Ventolin 0.083% Nebulizer Soln -) 1 amp NEB RQID [facility] Last Admin: 10/22/17 16:53 Dose: 1 amp Amino Acids (Prosource No Carb Liquid Pkt) 30 ml NGT BID@0800,1730 [facility] Last Admin: 10/22/17 10:21 Dose: 30 ml Chlorhexidine Gluconate (Hibiclens For Decolonization -) [address] [facility] Last Admin: 10/21/17 21:43 Dose: 1 applic Darbepoetin Trell (Aranesp -) 25 mcg SQ Q7D@1000 [facility] Diltiazem HCl (Cardizem -) 60 mg PO Q6HPO [facility] Last Admin: 10/22/17 11:00 Dose: 60 mg Dextrose (D10w -) 1,000 mls @ 20 mls/hr IV ASDIR [facility] Last Admin: 10/21/17 22:00 Dose: 20 mls/hr Insulin Aspart (Novolog Vial Sliding Scale -) 1 vial SQ TIDAC [facility] PRN Reason: Protocol Last Admin: 10/22/17 10:00 Dose: 2 units Insulin Detemir (Levemir Vial) [address] [facility] Last Admin: 10/21/17 21:45 Dose: 5 units Metoprolol Tartrate (Lopressor Injection -) 5 mg IVPUSH Q4H PRN PRN Reason: TACHYCARDIA Last Admin: 10/05/17 17:49 Dose: 5 mg Nystatin (Nystatin Oral Suspension -) 500,000 units PO Q6HPO [facility] Last Admin: 10/22/17 13:49 Dose: 500,000 units Pantoprazole Sodium (Protonix -) 40 mg PO DAILY [facility] Last Admin: 10/22/17 10:21 Dose: 40 mg Tamsulosin HCl (Flomax -) 0.4 mg PO DAILY@0830 [facility] Torsemide (Demadex -) 40 mg PO DAILY [facility] Last Admin: 10/22/17 13:52 Dose: 40 mg - Objective Vital Signs - 24 hr 10/21/17 10/21/17 10/21/17 17:27 19:00 20:50 Temperature 97.4 F L Pulse Rate 95 H 93 H Respiratory 23 24 Rate Blood Pressure 127/57 124/46 O2 Sat by Pulse 95 Oximetry (%) 10/21/17 10/21/17 10/21/17 20:51 21:00 23:00 Temperature 98 F Pulse Rate 90 104 H Respiratory 26 H 22 Rate Blood Pressure 110/67 131/76 O2 Sat by Pulse 95 Oximetry (%) 10/22/17 10/22/17 10/22/17 01:00 04:00 06:00 Temperature 98.2 F 97.9 F Pulse Rate 87 85 87 Respiratory 22 20 23 Rate Blood Pressure 137/80 154/54 147/70 O2 Sat by Pulse Oximetry (%) 10/22/17 10/22/17 10/22/17 08:00 10:00 12:00 Temperature 98 F Pulse Rate 86 88 86 Respiratory 22 22 22 Rate Blood Pressure 130/52 128/56 124/46 O2 Sat by Pulse Oximetry (%) 10/22/17 16:00 Temperature 99 F Pulse Rate 83 Respiratory 22 Rate Blood Pressure 129/41 O2 Sat by Pulse Oximetry (%) Intake & Output 10/20/17 10/21/17 10/22/17 10/23/17 07:59 07:59 07:59 07:59 Intake Total 440 5204 806 Output Total 1909 3548 2920 Balance -1460 2704 -2114 Weight 122 lb 9.6 oz 119 lb 0.794 oz 114 lb 8 oz Constitutional: Yes: cachectic, No Distress, Calm Cardiovascular: Yes: Regular Rate and Rhythm. 2/6 murmur at sternal border/apex Respiratory: Yes: Regular, bibasilar rales, nl effort Extremities: No: Cold Edema: No Neurological: Yes: Alert. No: Seizure Psychiatric: No: Agitated dimished dp/pt, gangrene of left foot. Labs: CBC, BMP 10/22/17 05:00 10/22/17 05:00 Laboratory Tests 10/21/17 10/22/17 05:15 05:00 WBC 10.5 H Plt Count 412 Magnesium 1.9 Albumin 1.5 L tele: SR EKG 10/03: sinus tach with atrial run. non-sp t wave ab. no ischemic changes. 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 diverticulosis, gastritis, esophagitis. cxr: still with congestive changes, with some infiltrative findings at right base with fluid. cxr 10/05: RLL consolidation and pleural fluid. cxr 10/08 improved aeration at right base. 10/05 renal u/s reviewed. small amount of ascites. see emr for detailed report. Echo 06/2017: mod lvh. nl lv fn. nl rv size/fn. 1+ lae. mod-sev mac with mod ms. 1+ mr. nl rvsp. 1+ ao dilation A/P 76 yo with pmhx of htn, hl, pad, afib (not on AC due to GIB), cva (no residual deficits), copd, dm, mgus, esthesioneuroblastoma treated with radiation therapy , chronic anemia s/p recent GIB admitted with dka, sepsis, resp failure. Hospital course now complicated by episode of afib with rvr afib - not previously a candidate for AC b/c of prior hx of GIB. remains anemic with melena here as well. - s/p IV amio. started po dilt 10/05. now back in sr. hr controlled. - off Amio, remains in sinus. BPs soft but tolerating diltiazem hi dose (90mg q6H)--continue same for now - change to cardizem CD regimen once bp's clearly out of the ngo as far as hypotension - hgb drifted down once ASA resumed--now d/c'd. not a candidate for AC at this time as risks of serious bleeding are > benefits - remains in SR, bp thus far tolerating diltiazem at present dose - 10/19: episode of bradycardia with intermittent dropped qrs complexes and runs of ventricular escape. Will decrease diltiazem to 60 mg q6h. Observe for recurrence of RVR. -10/20-10/21: no rvr or bradycardia on tele - 10/21: remains rate controlled, will transition to long-acting diltiazem (120 bid) mitral stenosis: - aggressive control of afib to prevent tachycardia CHF as doing - defer amio for now, may have to reconsider if recurrent rapid AF despite sepsis/PNA complete resolution PNA with septic shock, resp failure, resolving - off phenylephrine as of AM 10/11, hemodynamically stable currently - cont ICU monitoring - extubated 10/12 anemia, GI bleeding: - ongoing UGIB here with stool guaiac + (iker hgb 6.1) - s/p PRBCs, last on 10/18 - counts stable - no cardiac contraindications to planned egd/foc. - s/p endoscopy 10/21 --> avm cauterized. see above htn - home meds changed to diltiazem here for PAF rate control - bp stable cva/pad - con't statin. - per pmd, previously not a candidate for asa due to recent gib and anemia. hgb drifting down on asa here, held again mild asc ao dilation - cont bp control SHANTA - renal following, no sig improvement --> initiated HD 10/07. - currently monitoring off HD. has plan to remove HD catheter.
[2017-10-22] MEDS ORDERED: METOPROLOL TARTRATE 5 MG/5 ML VIAL IVPUSH PRN (19:49)
[2017-10-22] MEDS ORDERED: ACETAMINOPHEN 325 MG TABLET (FP) PO PRN (19:49)
[2017-10-22] MEDS: DEXTROSE 10%-WATER - 1,000 ML IV SCH (21:29)
[2017-10-22] MEDS: CHLORHEXIDINE GLUCONATE 4% CLEANSER FOR DECOLONIZATION TP SCH (21:29)
[2017-10-22] MEDS: INSULIN (LEVEMIR) 100 UNITS/ML UNITS SQ SCH (21:31)
[2017-10-23 05:57] LABS: BASO % 0.9 % (0-2.0); EOS % 1.9 % (0-4.5); HEMATOCRIT 23.4 % (35.4-49); HEMOGLOBIN 8.4 GM/dL (11.7-16.9); MCH 32.6 pg (25.7-33.7); MCHC 35.8 g/dl (32.0-35.9); MONO % 8.1 % (3.8-10.2); NEUT % 83.1 % (42.8-82.8); PLATELET COUNT 421 K/MM3 (134-434); RBC 2.57 M/mm3 (4.00-5.60); RDW 15.4 % (11.9-15.9); WHITE BLOOD COUNT 8.8 K/mm3 (4.0-10.0)
[2017-10-23] MEDS: dilTIAZem HCL 60 MG TABLET (FP) PO SCH ×2 (06:10)
[2017-10-23] MEDS: NYSTATIN 500,000 UNITS/5 ML SUSPENSION PO SCH ×4 (06:10→18:12)
[2017-10-23 06:21] LABS: ALBUMIN 1.4 g/dl (3.4-5.0); ANION GAP 8 (8-16); BLOOD UREA NITROGEN 64 mg/dL (7-18); CALCIUM 7.2 mg/dL (8.5-10.1); CHLORIDE 99 mmol/L (98-107); CO2 31 mmol/L (21-32); GLUCOSE,RANDOM 159 mg/dL (74-106); MAGNESIUM 1.7 mg/dL (1.8-2.4); POTASSIUM 3.7 mmol/L (3.5-5.1); SODIUM 138 mmol/L (136-145)
[2017-10-23 06:26] LABS: ALK PHOS 105 U/L (45-117); BILIRUBIN,TOTAL 0.2 mg/dL (0.2-1.0); CREATININE 3.9 mg/dL (0.7-1.3); PHOSPHOROUS 5.4 mg/dL (2.5-4.9); SGOT/AST 14 U/L (15-37); SGPT/ALT < 6 U/L (12-78); TOT PROT 5.4 g/dl (6.4-8.2)
[2017-10-23] MEDS ORDERED: INSULIN SLIDING SCALE (NOVOLOG) 1 VIAL SQ SCH (07:00)
[2017-10-23] MEDS: ACETYLCYSTEINE 20% 200MG/ML 4 ML VIAL *FOR ORAL / INH USE ONLY NEB SCH ×4 (08:15→22:03)
[2017-10-23] MEDS: ALBUTEROL SO4 0.083% IH SOL 2.5 MG/3 ML VIAL.NEB. NEB SCH ×4 (08:15→20:30)
--- NOTE | 2017-10-23 08:35 | PN ---
Physical Exam: SUBJECTIVE: Patient seen and examined Covering for Patient is comfortable with no acute distress, lying in bed with no acute distress. OBJECTIVE: Vital Signs Temperature 98.5 F 10/23/17 06:00 Pulse Rate 84 10/23/17 08:00 Respiratory Rate 16 10/23/17 08:00 Blood Pressure 156/54 10/23/17 08:00 O2 Sat by Pulse Oximetry (%) 98 10/22/17 19:54 GENERAL: The patient is awake, alert, and fully oriented. in no acute distress. HEAD: Normal with no signs of trauma. EYES: PERRL, extraocular movements intact, sclera anicteric, conjunctiva clear. ENT: Ears normal, oropharynx clear without exudates, moist mucous membranes. NECK: Trachea midline, full range of motion, supple. LUNGS: Breath sounds equal, clear to auscultation bilaterally, no wheezes, no crackles, no accessory muscle use. HEART: Regular rate and rhythm, S1, S2 positive, rub or gallop. ABDOMEN: Soft, nontender, nondistended, normoactive bowel sounds, no guarding, no rebound, no hepatosplenomegaly, no masses. EXTREMITIES: 2+ pulses, warm, well-perfused, no edema. NEUROLOGICAL: Cranial nerves II through XII grossly intact. Normal speech, gait not observed. PSYCH: Normal mood, normal affect. SKIN: Warm, dry, normal turgor, no rashes or lesions noted Home Medications Medication Instructions Recorded Simvastatin [Zocor -] 20 mg PO HS 05/11/14 Timolol 0.5% [Timoptic] 1 drop OU DAILY 05/11/14 Ferrous Sulfate [Feosol] 325 mg PO DAILY #30 tablet 07/25/17 Albuterol 0.083% Nebulizer Petra 1 amp NEB Q4H PRN amp 08/13/17 [Ventolin 0.083% Nebulizer Soln -] Diltiazem Cd [Cardizem Cd -] 240 mg PO DAILY cap.cd.24h 08/13/17 Docusate Sodium [Colace -] 100 mg PO BID capsule 08/13/17 Insulin (Levemir) [Levemir Vial] 6 units SQ HS ml 08/13/17 Insulin Sliding Scale [Novolog 1 vial SQ HS units 08/13/17 Vial Sliding Scale -] Insulin Sliding Scale [Novolog 1 vial SQ TIDAC units 08/13/17 Vial Sliding Scale -] Magnesium Oxide [Mag-Ox -] 400 mg PO BID tablet 08/13/17 Polyethylene Glycol 3350 [Miralax 17 gm PO DAILY bottle 08/13/17 119 gm Btl -] Active Medications Generic Name Dose Route Start Last Admin Trade Name Freq PRN Reason Stop Dose Admin Acetaminophen 650 mg 10/22/17 19:49 Tylenol - PO Q6H PRN FEVER Acetylcysteine 200 mg 10/22/17 20:00 10/23/17 08:15 Mucomyst 20 Oral / Inh Use Only* NEB 200 mg RQID SELVIN Administration Albuterol Sulfate 1 amp 10/22/17 20:00 10/23/17 08:15 Ventolin 0.083% Nebulizer Soln - NEB 1 amp RQID SELVIN Administration Amino Acids 30 ml 10/23/17 08:00 Prosource No Carb Liquid Pkt NGT BID@0800,1730 SELVIN Chlorhexidine Gluconate 1 applic 10/22/17 22:00 10/22/17 21:29 Hibiclens For Decolonization - TP 1 applic HS SELVIN Administration Darbepoetin Trell 25 mcg 10/22/17 12:30 10/22/17 17:21 Aranesp - SQ 25 mcg Q7D@1000 SELVIN Administration Diltiazem HCl 120 mg 10/23/17 10:00 Cardizem Cd - PO BID SELVIN Dextrose 1,000 mls @ 20 mls/hr 10/22/17 19:49 10/22/17 21:29 D10w - IV 20 mls/hr ASDIR SEL[facility]IN Administration Insulin Aspart 1 vial 10/23/17 07:00 10/23/17 06:10 Novolog Vial Sliding Scale - SQ Not Given TIDAC [facility] Protocol Insulin Detemir 5 units 10/22/17 22:00 10/22/17 21:31 Levemir Vial SQ 5 unit HS SELVIN Administration Metoprolol Tartrate 5 mg 10/22/17 19:49 Lopressor Injection - IVPUSH Q4H PRN TACHYCARDIA Nystatin 500,000 units 10/23/17 00:00 10/23/17 06:10 Nystatin Oral Suspension - PO 500,000 units Q6HPO SELVIN Administration Pantoprazole Sodium 40 mg 10/23/17 10:00 Protonix - PO DAILY SELVIN Tamsulosin HCl 0.4 mg 10/23/17 08:30 Flomax - PO DAILY@0830 SELVIN Torsemide 40 mg 10/22/17 12:30 10/22/17 13:52 Demadex - PO 40 mg DAILY SELVIN Administration ASSESSMENT/PLAN: Patient is a 76 year old male with a significant past medical history of COPD, GI bleed, diverticulosis, HLD, CVA, intussusception, umbilical hernia, DM, HTN, sinus cancer with excision and polypectomy who presented to the ED with sepsis , DKA and with acute hypoxic respiratory failure. 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 # PVD Left foot Ischemic changes DVT Px: not on anticoag. due to GI bleed. DNR/DNI Visit type - Emergency Visit Emergency Visit: Yes ED Registration Date: 10/03/17 Care time: The patient presented to the Emergency Department on the above date and was hospitalized for further evaluation of their emergent condition. - New Patient This patient is new to me today: Yes Date on this admission: 10/23/17 - Critical Care Critical Care patient: No - Discharge Referral Referred to [facility] Med P.C.: No
[2017-10-23] MEDS: TORSEMIDE 20 MG TABLET (FP) PO SCH (09:19)
[2017-10-23] MEDS: PANTOPRAZOLE 40 MG TABLET (FP) PO SCH (09:19)
[2017-10-23] MEDS: TAMSULOSIN HCL 0.4 MG CAP.ER.24H (FP) PO SCH (09:20)
[2017-10-23] MEDS: AMINO ACIDS/PROTEIN HYDROLYS 30 ML LIQUID.PKT NGT SCH ×2 (09:20→18:12)
--- NOTE | 2017-10-23 10:14 | PN ---
Progress Note (short form) - Note Progress Note: PULMONARY/CCM Pt seen and examined in the ICU. Continues to improve. H/H stable. Denies shortness of breath or chest pain. Good urine output. Last Vital Signs Temp Pulse Resp BP Pulse Ox 98.5 F 84 16 156/54 99 10/23/17 06:00 10/23/17 08:00 10/23/17 08:00 10/23/17 08:00 10/23/17 08:27 Intake & Output 10/20/17 10/21/17 10/22/17 10/23/17 23:59 23:59 23:59 23:59 Intake Total 4700 1070 480 340 Output Total 2400 2520 3200 700 Balance 2300 -6720 -2720 -360 Weight 55.61 kg 54 kg 51.936 kg 51.511 kg Gen: NAD at rest Heart: RRR Lung: decreased breath sounds at the bases Abd: soft, nontender Ext: no edema, gangrenous left toes CBC, BMP 10/23/17 05:20 10/23/17 05:20 Active Medications Acetaminophen (Tylenol -) 650 mg PO Q6H PRN PRN Reason: FEVER Acetylcysteine (Mucomyst 20 Oral / Inh Use Only*) 200 mg NEB RQID [facility] Last Admin: 10/23/17 08:15 Dose: 200 mg Albuterol Sulfate (Ventolin 0.083% Nebulizer Soln -) 1 amp NEB RQID [facility] Last Admin: 10/23/17 08:15 Dose: 1 amp Amino Acids (Prosource No Carb Liquid Pkt) 30 ml NGT BID@0800,1730 [facility] Last Admin: 10/23/17 09:20 Dose: 30 ml Chlorhexidine Gluconate (Hibiclens For Decolonization -) 1 applic TP HS [facility] Last Admin: 10/22/17 21:29 Dose: 1 applic Darbepoetin Trell (Aranesp -) 25 mcg SQ Q7D@1000 [facility] Last Admin: 10/22/17 17:21 Dose: 25 mcg Diltiazem HCl (Cardizem Cd -) 120 mg PO BID [facility] Last Admin: 10/23/17 09:19 Dose: 120 mg Dextrose (D10w -) 1,000 mls @ 20 mls/hr IV ASDIR [facility] Last Admin: 10/22/17 21:29 Dose: 20 mls/hr Insulin Aspart (Novolog Vial Sliding Scale -) 1 vial SQ TIDAC [facility] PRN Reason: Protocol Last Admin: 10/23/17 06:10 Dose: Not Given Insulin Detemir (Levemir Vial) 5 units SQ HS [facility] Last Admin: 10/22/17 21:31 Dose: 5 unit Metoprolol Tartrate (Lopressor Injection -) 5 mg IVPUSH Q4H PRN PRN Reason: TACHYCARDIA Nystatin (Nystatin Oral Suspension -) 500,000 units PO Q6HPO [facility] Last Admin: 10/23/17 06:10 Dose: 500,000 units Pantoprazole Sodium (Protonix -) 40 mg PO DAILY [facility] Last Admin: 10/23/17 09:19 Dose: 40 mg Tamsulosin HCl (Flomax -) 0.4 mg PO DAILY@0830 [facility] Last Admin: 10/23/17 09:20 Dose: 0.4 mg Torsemide (Demadex -) 40 mg PO DAILY [facility] Last Admin: 10/23/17 09:19 Dose: 40 mg A/P Acute Hypoxic Respiratory Failure improving Pneumonia treated Septic Shock resolving Acute on Chronic Renal Failure requiring HD improving Lactic Acidosis resolved Diabetic Ketoacidosis resolved Paroxysmal Atrial Fibrillation with RVR GI bleed HTN DM COPD - monitor H/H - monitoring off antibiotics - HD per renal - monitor urine output, creatinine - monitor I/Os - glucose control - rate control - holding anticoagulation due to GI bleed - taper FiO2 to keep SpO2 >90% - monitoring off pressors - aspiration precautions - DVT/GI prophylaxis - can monitor on telemetry
[2017-10-23] MEDS: DEXTROSE 10%-WATER - 1,000 ML IV SCH (11:13)
--- NOTE | 2017-10-23 11:25 | PN ---
Progress Note (short form) - Note Progress Note: Chief Complaint: resp failure History of Present Illness: no cp, palps, dizziness, sob Current Medications Generic Name Dose Route Start Last Admin Trade Name Frealfredo PRN Reason Stop Dose Admin Acetaminophen 650 mg 10/22/17 19:49 Tylenol - PO Q6H PRN FEVER Acetylcysteine 200 mg 10/22/17 20:00 10/23/17 08:15 Mucomyst 20 Oral / Inh Use Only* NEB 200 mg RQID [facility] Administration Albuterol Sulfate 1 amp 10/22/17 20:00 10/23/17 08:15 Ventolin 0.083% Nebulizer Soln - NEB 1 amp RQID [facility] Administration Amino Acids 30 ml 10/23/17 08:00 10/23/17 09:20 Prosource No Carb Liquid Pkt NGT 30 ml BID@0800,1730 [facility] Administration Chlorhexidine Gluconate 1 applic 10/22/17 22:00 10/22/17 21:29 Hibiclens For Decolonization - TP 1 applic HS [facility] Administration Darbepoetin Trell 25 mcg 10/22/17 12:30 10/22/17 17:21 Aranesp - SQ 25 mcg Q7D@1000 [facility] Administration Diltiazem HCl 120 mg 10/23/17 10:00 10/23/17 09:19 Cardizem Cd - PO 120 mg BID [facility] Administration Dextrose 1,000 mls @ 20 mls/hr 10/22/17 19:49 10/23/17 11:13 D10w - IV 20 mls/hr ASDIR [facility] Administration Insulin Aspart 1 vial 10/23/17 07:00 10/23/17 06:10 Novolog Vial Sliding Scale - SQ Not [facility] Protocol Insulin Detemir 5 units 10/22/17 22:00 10/22/17 21:31 Levemir Vial SQ 5 unit HS [facility]IN Administration Metoprolol Tartrate 5 mg 10/22/17 19:49 Lopressor Injection - IVPUSH Q4H PRN TACHYCARDIA Nystatin 500,000 units 10/23/17 00:00 10/23/17 06:10 Nystatin Oral Suspension - PO 500,000 units Q6HPO [facility]IN Administration Pantoprazole Sodium 40 mg 10/23/17 10:00 10/23/17 09:19 Protonix - PO 40 mg DAILY [facility]IN Administration Tamsulosin HCl 0.4 mg 10/23/17 08:30 10/23/17 09:20 Flomax - PO 0.4 mg DAILY@0830 S[facility]IN Administration Torsemide 40 mg 10/22/17 12:30 10/23/17 09:19 Demadex - PO 40 mg DAILY [facility]IN Administration - Objective Vital Signs: Vital Signs Period Temp Pulse Resp BP Sys/Sy Pulse Ox Last 24 Hr 98.5 F-99.1 F 74-90 15-23 114-156/27-57 98-99 Constitutional: Yes: cachectic, No Distress, Calm Cardiovascular: Yes: Regular Rate and Rhythm. No: JVD (tds exam), Gallop, Murmur Respiratory: Yes: Regular, bibasilar rales, nl effort Extremities: No: Cold Edema: No Neurological: Yes: Alert. No: Seizure Psychiatric: No: Agitated dimished dp/pt, gangrene of left foot. Labs: CBC, BMP 10/23/17 05:20 10/23/17 05:20 tele: EKG 10/03: sinus tach with atrial run. non-sp t wave ab. no ischemic changes. 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 diverticulosis, gastritis, esophagitis. cxr: still with congestive changes, with some infiltrative findings at right base with fluid. cxr 10/05: RLL consolidation and pleural fluid. cxr 10/08 improved aeration at right base. 10/05 renal u/s reviewed. small amount of ascites. see emr for detailed report. Echo 06/2017: mod lvh. nl lv fn. nl rv size/fn. 1+ lae. mod-sev mac with mod ms. 1+ mr. nl rvsp. 1+ ao dilation A/P 76 yo with pmhx of htn, hl, pad, afib (not on AC due to GIB), cva (no residual deficits), copd, dm, mgus, esthesioneuroblastoma treated with radiation therapy , chronic anemia s/p recent GIB admitted with dka, sepsis, resp failure. Hospital course now complicated by episode of afib with rvr afib - not previously a candidate for AC b/c of prior hx of GIB. remains anemic with melena here as well. - s/p IV amio. started po dilt 10/05. now back in sr. hr controlled. - off Amio, remains in sinus. BPs soft but tolerating diltiazem hi dose (90mg q6H)--continue same for now - change to cardizem CD regimen once bp's clearly out of the ngo as far as hypotension - hgb drifted down once ASA resumed--now d/c'd. not a candidate for AC at this time as risks of serious bleeding are > benefits - remains in SR, bp thus far tolerating diltiazem at present dose - 10/19: episode of bradycardia with intermittent dropped qrs complexes and runs of ventricular escape. Will decrease diltiazem to 60 mg q6h. Observe for recurrence of RVR. -10/20-10/21: no rvr or bradycardia on tele - 10/21-: remains rate controlled on dilt mitral stenosis: - aggressive control of afib to prevent tachycardia CHF as doing - defer amio for now, may have to reconsider if recurrent rapid AF despite sepsis/PNA complete resolution PNA with septic shock, resp failure, resolving - off phenylephrine as of AM 10/11, hemodynamically stable currently - extubated 10/12 anemia, GI bleeding: - ongoing UGIB here with stool guaiac + (iker hgb 6.1) - s/p PRBCs, last on 10/18 - counts stable - no cardiac contraindications to planned egd/foc. - s/p endoscopy 10/21 --> avm cauterized. see above htn - home meds changed to diltiazem here for PAF rate control - bp stable cva/pad - con't statin. - per pmd, previously not a candidate for asa due to recent gib and anemia. hgb drifting down on asa here, held again mild asc ao dilation - cont bp control SHANTA - renal following, no sig improvement --> initiated HD 10/07. - currently monitoring off HD. started on torsemide per renal
--- NOTE | 2017-10-23 11:32 | PN ---
Progress Note (short form) - Note Progress Note: No complaints On D10W 20ml/hr Vital Signs Period Temp Pulse Resp BP Sys/Sy Pulse Ox Last 24 Hr 98.5 F-99.1 F 74-90 15-23 114-156/27-57 98-99 PE: , awake, alert Neck: supple Lungs: CTA CVS: S1S2 Abd: Benign Ext: No edema, dusky coloration left 1st and 2nd toes Neuro: Awake, open eyes, CMP Sodium 138 mmol/L (136-145) 10/23/17 05:20 Potassium 3.7 mmol/L (3.5-5.1) 10/23/17 05:20 Chloride 99 mmol/L (98-107) 10/23/17 05:20 Carbon Dioxide 31 mmol/L (21-32) 10/23/17 05:20 Anion Gap 8 (8-16) 10/23/17 05:20 BUN 64 mg/dL (7-18) H 10/23/17 05:20 Creatinine 3.9 mg/dL (0.7-1.3) H 10/23/17 05:20 Creat Clearance w eGFR 15.03 (>60) 10/23/17 05:20 POC Glucometer 203.07208 UNITS (80-120) 10/23/17 01:29 Random Glucose 159 mg/dL (74-106) H D 10/23/17 05:20 Hemoglobin A1c % 8.5 % (4.8-6.0) H D 10/04/17 06:00 Lactic Acid 2.0 mmol/L (0.0-2.0) 10/03/17 12:00 Calcium 7.2 mg/dL (8.5-10.1) L 10/23/17 05:20 Phosphorus 5.4 mg/dL (2.5-4.9) H 10/23/17 05:20 Magnesium 1.7 mg/dL (1.8-2.4) L 10/23/17 05:20 Iron 22 ug/dL (38-169) L 10/06/17 05:50 Ferritin 202.816 ng/ml (16.4-293.9) 10/06/17 05:50 Total Bilirubin 0.2 mg/dL (0.2-1.0) 10/23/17 05:20 AST 14 U/L (15-37) L D 10/23/17 05:20 ALT < 6 U/L (12-78) L 10/23/17 05:20 Alkaline Phosphatase 105 U/L (45-117) 10/23/17 05:20 Total Protein 5.4 g/dl (6.4-8.2) L 10/23/17 05:20 Albumin 1.4 g/dl (3.4-5.0) L 10/23/17 05:20 Vitamin B12 1602 pg/ml (180-914) H 10/06/17 05:50 Serum Folate 23 ng/ml (3.1-17.5) H 10/06/17 05:50 Current Medications Generic Name Dose Route Start Last Admin Trade Name Freq PRN Reason Stop Dose Admin Acetaminophen 650 mg 10/22/17 19:49 Tylenol - PO Q6H PRN FEVER Acetylcysteine 200 mg 10/22/17 20:00 10/23/17 11:26 Mucomyst 20 Oral / Inh Use Only* NEB 200 mg RQID SELVIN Administration Albuterol Sulfate 1 amp 10/22/17 20:00 10/23/17 11:26 Ventolin 0.083% Nebulizer Soln - NEB 1 amp RQID SELVIN Administration Amino Acids 30 ml 10/23/17 08:00 10/23/17 09:20 Prosource No Carb Liquid Pkt NGT 30 ml BID@0800,1730 SEL[facility]IN Administration Chlorhexidine Gluconate 1 applic 10/22/17 22:00 10/22/17 21:29 Hibiclens For Decolonization - TP 1 applic HS SEL[facility]IN Administration Darbepoetin Trell 25 mcg 10/22/17 12:30 10/22/17 17:21 Aranesp - SQ 25 mcg Q7D@1000 SELVIN Administration Diltiazem HCl 120 mg 10/23/17 10:00 10/23/17 09:19 Cardizem Cd - PO 120 mg BID SELVIN Administration Dextrose 1,000 mls @ 20 mls/hr 10/22/17 19:49 10/23/17 11:13 D10w - IV 20 mls/hr ASDIR SELVIN Administration Insulin Aspart 1 vial 10/23/17 07:00 10/23/17 06:10 Novolog Vial Sliding Scale - SQ Not Given TIDAC [facility] Protocol Insulin Detemir 5 units 04/27/18 22:00 10/22/17 21:31 Levemir Vial SQ 5 unit HS [facility]ELVIN Administration Metoprolol Tartrate 5 mg 10/22/17 19:49 Lopressor Injection - IVPUSH Q4H PRN TACHYCARDIA Nystatin 500,000 units 10/23/17 00:00 10/23/17 06:10 Nystatin Oral Suspension - PO 500,000 units Q6HPO [facility]EL[facility]IN Administration Pantoprazole Sodium 40 mg 10/23/17 10:00 10/23/17 09:19 Protonix - PO 40 mg DAILY SELVIN Administration Tamsulosin HCl 0.4 mg 10/23/17 08:30 10/23/17 09:20 Flomax - PO 0.4 mg DAILY@0830 [facility]IN Administration Torsemide 40 mg 10/22/17 12:30 10/23/17 09:19 Demadex - PO 40 mg DAILY [facility]ELVIN Administration AP; Acute Hypoxic Respiratory Failure s/p Extubation Pneumonia Septic Shock DM with Acidosis ? DKA,?Lactic acidosis Acute on Chronic Renal Failure Paroxysmal Atrial Fibrillation with RVR HTN COPD Ischemic changes left first and 2nd toes GI bleeding s/p transfuison S/P EGD and Colonoscopy BGM QACHS and 3 a.m. Levemir 5 units daily, Continue D10 20ml/hr for now, had episodes of hypoglycemia during the night. Continue Novolog coverage Chart reviewed Start D10W at 42 ml/hr whenever tube feeding is on hold or discontinued until food intake is adequate. As pt was admitted with acidosis possibly DKA, need to continue to administer long acting Insulin Will f/u
[2017-10-23] MEDS ORDERED: Insulin (LOG) Aspart 100 UNITS/ML VIAL SQ ONE (11:42)
--- NOTE | 2017-10-23 13:39 | PN ---
Progress Note (short form) - Note Progress Note: icu covering dr witt copd ig bleed diverticulosis steve/atn/sepsis s/p hd x 2 diverticulosis hld cva intussusception htn sinus ca s/p excision Active Medications Acetaminophen (Tylenol -) 650 mg PO Q6H PRN PRN Reason: FEVER Acetylcysteine (Mucomyst 20 Oral / Inh Use Only*) 200 mg NEB RQID [facility] Last Admin: 10/23/17 11:26 Dose: 200 mg Albuterol Sulfate (Ventolin 0.083% Nebulizer Soln -) 1 amp NEB RQID [facility] Last Admin: 10/23/17 11:26 Dose: 1 amp Amino Acids (Prosource No Carb Liquid Pkt) 30 ml NGT BID@0800,1730 [facility] Last Admin: 10/23/17 09:20 Dose: 30 ml Chlorhexidine Gluconate (Hibiclens For Decolonization -) 1 applic TP [facility] Last Admin: 10/22/17 21:29 Dose: 1 applic Darbepoetin Trell (Aranesp -) 25 mcg SQ Q7D@1000 [facility] Last Admin: 10/22/17 17:21 Dose: 25 mcg Diltiazem HCl (Cardizem Cd -) 120 mg PO BID [facility] Last Admin: 10/23/17 09:19 Dose: 120 mg Dextrose (D10w -) 1,000 mls @ 20 mls/hr IV ASDIR [facility] Stop: 10/24/17 08:00 Insulin Aspart (Novolog Vial Sliding Scale -) 1 vial SQ TIDAC [facility] PRN Reason: Protocol Insulin Detemir (Levemir Vial) 5 units SQ [facility] Last Admin: 10/22/17 21:31 Dose: 5 unit Metoprolol Tartrate (Lopressor Injection -) 5 mg IVPUSH Q4H PRN PRN Reason: TACHYCARDIA Nystatin (Nystatin Oral Suspension -) 500,000 units PO Q6HPO [facility] Last Admin: 10/23/17 06:10 Dose: 500,000 units Pantoprazole Sodium (Protonix -) 40 mg PO DAILY [facility] Last Admin: 10/23/17 09:19 Dose: 40 mg Tamsulosin HCl (Flomax -) 0.4 mg PO DAILY@0830 [facility] Last Admin: 10/23/17 09:20 Dose: 0.4 mg Torsemide (Demadex -) 40 mg PO DAILY [facility] Last Admin: 10/23/17 09:19 Dose: 40 mg Last Vital Signs Temp Pulse Resp BP Pulse Ox 98.5 F 110 H 18 108/43 98 10/23/17 06:00 10/23/17 12:00 10/23/17 12:00 10/23/17 12:00 10/23/17 10:00 verbally responsive, confused no distress d lungs- rhonchi heart reg abd soft no guarding ext no edema CBC, BMP 10/23/17 05:20 10/23/17 05:20 IMP-s/p steve on hd now off hd and being monitored severe anemia sepsis hypotension with sedation plan- monitor for indication for hd
[2017-10-23] MEDS: INSULIN SLIDING SCALE (NOVOLOG) 1 VIAL SQ SCH (18:14)
--- NOTE | 2017-10-23 18:47 | PN ---
Progress Note, Physician History of Present Illness: Pt alert, without new complaints. Temp of 100.1F today, without distress. Denies shortness of breath, chills, abd pain. - Current Medication List Current Medications: Active Medications Acetaminophen (Tylenol -) 650 mg PO Q6H PRN PRN Reason: FEVER Acetylcysteine (Mucomyst 20 Oral / Inh Use Only*) 200 mg NEB RQID [facility] Last Admin: 10/23/17 17:22 Dose: 200 mg Albuterol Sulfate (Ventolin 0.083% Nebulizer Soln -) 1 amp NEB RQID [facility] Last Admin: 10/23/17 17:22 Dose: 1 amp Amino Acids (Prosource No Carb Liquid Pkt) 30 ml NGT BID@0800,1730 [facility] Last Admin: 10/23/17 18:12 Dose: 30 ml Chlorhexidine Gluconate (Hibiclens For Decolonization -) 1 applic TP HS [facility] Last Admin: 10/22/17 21:29 Dose: 1 applic Darbepoetin Trell (Aranesp -) 25 mcg SQ Q7D@1000 [facility] Last Admin: 10/22/17 17:21 Dose: 25 mcg Diltiazem HCl (Cardizem Cd -) 120 mg PO BID [facility] Last Admin: 10/23/17 09:19 Dose: 120 mg Dextrose (D10w -) 1,000 mls @ 20 mls/hr IV ASDIR [facility] Stop: 10/24/17 08:00 Insulin Aspart (Novolog Vial Sliding Scale -) 1 vial SQ TIDAC [facility] PRN Reason: Protocol Last Admin: 10/23/17 18:14 Dose: 6 units Insulin Detemir (Levemir Vial) 5 units SQ [facility] Last Admin: 10/22/17 21:31 Dose: 5 unit Metoprolol Tartrate (Lopressor Injection -) 5 mg IVPUSH Q4H PRN PRN Reason: TACHYCARDIA Nystatin (Nystatin Oral Suspension -) 500,000 units PO Q6HPO [facility] Last Admin: 10/23/17 18:12 Dose: 500,000 units Pantoprazole Sodium (Protonix -) 40 mg PO DAILY [facility] Last Admin: 10/23/17 09:19 Dose: 40 mg Tamsulosin HCl (Flomax -) 0.4 mg PO DAILY@0830 [facility] Last Admin: 10/23/17 09:20 Dose: 0.4 mg Torsemide (Demadex -) 40 mg PO DAILY [facility] Last Admin: 10/23/17 09:19 Dose: 40 mg - Objective Vital Signs: Vital Signs Temperature 100.1 F H 10/23/17 16:00 Pulse Rate 100 H 10/23/17 18:00 Respiratory Rate 18 10/23/17 18:00 Blood Pressure 179/97 10/23/17 18:00 O2 Sat by Pulse Oximetry (%) 98 10/23/17 10:00 Constitutional: Yes: No Distress, Calm Cardiovascular: Yes: Tachycardia Respiratory: Yes: Regular Gastrointestinal: Yes: Normal Bowel Sounds, Soft Extremities: Yes: Other (Lt toes dusky) Neurological: Yes: Alert Labs: CBC, BMP 10/23/17 05:20 10/23/17 05:20 INR, PTT INR 1.16 (0.82-1.09) H 10/15/17 05:46 Problem List - Problems (1) DKA (diabetic ketoacidoses) Code(s): E13.10 - OTH DIABETES MELLITUS WITH KETOACIDOSIS WITHOUT COMA (2) Diabetes mellitus Code(s): E11.9 - TYPE 2 DIABETES MELLITUS WITHOUT COMPLICATIONS (3) SHANTA (acute kidney injury) Code(s): N17.9 - ACUTE KIDNEY FAILURE, UNSPECIFIED (4) Anemia Code(s): D64.9 - ANEMIA, UNSPECIFIED Qualifiers: Other causes of anemia: acute posthemorrhagic (5) Aortic aneurysm Code(s): I71.9 - AORTIC ANEURYSM OF UNSPECIFIED SITE, WITHOUT RUPTURE Qualifiers: Aortic location: thoracic aorta Presence of rupture: without rupture Qualified Code(s): I71.2 - Thoracic aortic aneurysm, without rupture (6) Pneumonia Code(s): J18.9 - PNEUMONIA, UNSPECIFIED ORGANISM (7) CKD (chronic kidney disease) Code(s): N18.9 - CHRONIC KIDNEY DISEASE, UNSPECIFIED Assessment/Plan 76 year old male with PMH of COPD, GI bleed, diverticulosis, CVA, intussusception,DM, HTN, HLD, sinus cancer s/p excision Acute Hypoxic Respiratory Failure Pneumonia - treated s/p Septic Shock Acute on Chronic Renal Failure Lactic Acidosis Diabetic Ketoacidosis - improved HTN DM COPD gluteal ulcer GI bleed -- pt with elevated temp, wbc normal -- continue monitor temperatures off antibiotics for now -- repeat blood culture
[2017-10-23] MEDS ORDERED: DEXTROSE 10%-WATER - 1,000 ML IV SCH (20:00)
[2017-10-24] MEDS: CHLORHEXIDINE GLUCONATE 4% CLEANSER FOR DECOLONIZATION TP SCH ×2 (00:09→23:44)
[2017-10-24] MEDS: INSULIN (LEVEMIR) 100 UNITS/ML UNITS SQ SCH (00:11)
[2017-10-24] MEDS: NYSTATIN 500,000 UNITS/5 ML SUSPENSION PO SCH ×5 (00:12→23:43)
[2017-10-24 05:50] LABS: BASO % 0.8 % (0-2.0); EOS % 0.9 % (0-4.5); HEMATOCRIT 23.4 % (35.4-49); HEMOGLOBIN 8.2 GM/dL (11.7-16.9); LYMPH % 5.9 % (8-40); MCH 31.9 pg (25.7-33.7); MCHC 35.3 g/dl (32.0-35.9); MEAN CELL VOLUME 90.3 fl (80-96); MEAN PLT VOLUME 7.7 fl (7.5-11.1); MONO % 10.2 % (3.8-10.2); NEUT % 82.2 % (42.8-82.8); PLATELET COUNT 403 K/MM3 (134-434); RBC 2.59 M/mm3 (4.00-5.60); RDW 15.6 % (11.9-15.9); WHITE BLOOD COUNT 8.5 K/mm3 (4.0-10.0)
[2017-10-24] MEDS: INSULIN SLIDING SCALE (NOVOLOG) 1 VIAL SQ SCH ×3 (06:22→17:34)
[2017-10-24 06:24] LABS: ALBUMIN 1.5 g/dl (3.4-5.0); ALK PHOS 99 U/L (45-117); ANION GAP 12 (8-16); BILIRUBIN,TOTAL 0.2 mg/dL (0.2-1.0); BLOOD UREA NITROGEN 75 mg/dL (7-18); CALCIUM 7.6 mg/dL (8.5-10.1); CHLORIDE 97 mmol/L (98-107); CO2 30 mmol/L (21-32); CREATININE 4.1 mg/dL (0.7-1.3); GLUCOSE,RANDOM 281 mg/dL (74-106); MAGNESIUM 1.6 mg/dL (1.8-2.4); PHOSPHOROUS 5.4 mg/dL (2.5-4.9); POTASSIUM 4.4 mmol/L (3.5-5.1); SGOT/AST 10 U/L (15-37); SGPT/ALT < 6 U/L (12-78); SODIUM 139 mmol/L (136-145); TOT PROT 5.5 g/dl (6.4-8.2)
[2017-10-24] MEDS: ACETYLCYSTEINE 20% 200MG/ML 4 ML VIAL *FOR ORAL / INH USE ONLY NEB SCH ×4 (08:28→20:07)
[2017-10-24] MEDS: ALBUTEROL SO4 0.083% IH SOL 2.5 MG/3 ML VIAL.NEB. NEB SCH ×4 (08:28→20:07)
[2017-10-24] MEDS: PANTOPRAZOLE 40 MG TABLET (FP) PO SCH (09:16)
[2017-10-24] MEDS: TAMSULOSIN HCL 0.4 MG CAP.ER.24H (FP) PO SCH (09:16)
[2017-10-24] MEDS: AMINO ACIDS/PROTEIN HYDROLYS 30 ML LIQUID.PKT NGT SCH ×2 (09:16→17:33)
[2017-10-24] MEDS: TORSEMIDE 20 MG TABLET (FP) PO SCH (09:17)
--- NOTE | 2017-10-24 10:32 | PN ---
Progress Note (short form) - Note Progress Note: PULMONARY/CCM Pt seen and examined in the ICU. Denies shortness of breath or chest pain. Tolerating PO. Good urine output. Last Vital Signs Temp Pulse Resp BP Pulse Ox 98.4 F 93 H 27 H 115/59 98 10/24/17 06:00 10/24/17 08:00 10/24/17 08:00 10/24/17 08:00 10/23/17 22:00 Intake & Output 10/21/17 10/22/17 10/23/17 10/24/17 23:59 23:59 23:59 23:59 Intake Total 1070 480 960 140 Output Total 2520 3200 1500 1600 Balance -6596 -3660 -540 -1460 Weight 54 kg 51.936 kg 51.511 kg 51.057 kg Gen: NAD at rest Heart: RRR Lung: decreased breath sounds at the bases Abd: soft, nontender Ext: no edema, gangrenous left toes CBC, BMP 10/24/17 05:15 10/24/17 05:15 Active Medications Acetaminophen (Tylenol -) 650 mg PO Q6H PRN PRN Reason: FEVER Acetylcysteine (Mucomyst 20 Oral / Inh Use Only*) 200 mg NEB RQID [facility] Last Admin: 10/24/17 08:28 Dose: 200 mg Albuterol Sulfate (Ventolin 0.083% Nebulizer Soln -) 1 amp NEB RQID [facility] Last Admin: 10/24/17 08:28 Dose: 1 amp Amino Acids (Prosource No Carb Liquid Pkt) 30 ml NGT BID@0800,1730 [facility] Last Admin: 10/24/17 09:16 Dose: 30 ml Chlorhexidine Gluconate (Hibiclens For Decolonization -) 1 applic TP HS [facility] Last Admin: 10/24/17 00:09 Dose: 1 applic Darbepoetin Trell (Aranesp -) 25 mcg SQ Q7D@1000 [facility] Last Admin: 10/22/17 17:21 Dose: 25 mcg Diltiazem HCl (Cardizem Cd -) 120 mg PO BID [facility] Last Admin: 10/24/17 09:17 Dose: 120 mg Insulin Aspart (Novolog Vial Sliding Scale -) 1 vial SQ TIDAC [facility] PRN Reason: Protocol Last Admin: 10/24/17 06:22 Dose: 6 units Insulin Detemir (Levemir Vial) 5 units SQ HS [facility] Last Admin: 10/24/17 00:11 Dose: 5 unit Metoprolol Tartrate (Lopressor Injection -) 5 mg IVPUSH Q4H PRN PRN Reason: TACHYCARDIA Nystatin (Nystatin Oral Suspension -) 500,000 units PO Q6HPO [facility] Last Admin: 10/24/17 06:22 Dose: 500,000 units Pantoprazole Sodium (Protonix -) 40 mg PO DAILY [facility] Last Admin: 10/24/17 09:16 Dose: 40 mg Tamsulosin HCl (Flomax -) 0.4 mg PO DAILY@0830 [facility] Last Admin: 10/24/17 09:16 Dose: 0.4 mg Torsemide (Demadex -) 40 mg PO DAILY [facility] Last Admin: 10/24/17 09:17 Dose: 40 mg A/P Acute Hypoxic Respiratory Failure improving Pneumonia treated Septic Shock resolving Acute on Chronic Renal Failure requiring HD improving Lactic Acidosis resolved Diabetic Ketoacidosis resolved Paroxysmal Atrial Fibrillation with RVR GI bleed HTN DM COPD - monitor H/H - monitoring off antibiotics - HD per renal - monitor urine output, creatinine - monitor I/Os - glucose control - rate control - holding anticoagulation due to GI bleed - taper FiO2 to keep SpO2 >90% - monitoring off pressors - PO as tolerated - aspiration precautions - DVT/GI prophylaxis - can monitor on telemetry
--- NOTE | 2017-10-24 10:36 | PN ---
Progress Note (short form) - Note Progress Note: Chief Complaint: resp failure History of Present Illness: no cp, palps, dizziness, sob Current Medications Generic Name Dose Route Start Last Admin Trade Name Freq PRN Reason Stop Dose Admin Acetaminophen 650 mg 10/22/17 19:49 Tylenol - PO Q6H PRN FEVER Acetylcysteine 200 mg 10/22/17 20:00 10/24/17 08:28 Mucomyst 20 Oral / Inh Use Only* NEB 200 mg RQID SELVIN Administration Albuterol Sulfate 1 amp 10/22/17 20:00 10/24/17 08:28 Ventolin 0.083% Nebulizer Soln - NEB 1 amp RQID SELVIN Administration Amino Acids 30 ml 10/23/17 08:00 10/24/17 09:16 Prosource No Carb Liquid Pkt NGT 30 ml BID@0800,1730 SELVIN Administration Chlorhexidine Gluconate 1 applic 10/22/17 22:00 10/24/17 00:09 Hibiclens For Decolonization - TP 1 applic HS SELVIN Administration Darbepoetin Trell 25 mcg 10/22/17 12:30 10/22/17 17:21 Aranesp - SQ 25 mcg Q7D@1000 SELVIN Administration Diltiazem HCl 120 mg 10/23/17 10:00 10/24/17 09:17 Cardizem Cd - PO 120 mg BID SELVIN Administration Insulin Aspart 1 vial 10/23/17 11:36 10/24/17 06:22 Novolog Vial Sliding Scale - SQ 6 units TIDAC SELVIN Administration Protocol Insulin Detemir 5 units 10/22/17 22:00 10/24/17 00:11 Levemir Vial SQ 5 unit HS SELVIN Administration Metoprolol Tartrate 5 mg 10/22/17 19:49 Lopressor Injection - IVPUSH Q4H PRN TACHYCARDIA Nystatin 500,000 units 10/23/17 00:00 10/24/17 06:22 Nystatin Oral Suspension - PO 500,000 units Q6HPO SELVIN Administration Pantoprazole Sodium 40 mg 10/23/17 10:00 10/24/17 09:16 Protonix - PO 40 mg DAILY SELVIN Administration Tamsulosin HCl 0.4 mg 10/23/17 08:30 10/24/17 09:16 Flomax - PO 0.4 mg DAILY@0830 SELVIN Administration Torsemide 40 mg 10/22/17 12:30 10/24/17 09:17 Demadex - PO 40 mg DAILY SELVIN Administration - Objective Vital Signs: Vital Signs Period Temp Pulse Resp BP Sys/Sy Pulse Ox Last 24 Hr 98.2 F-100.1 F 90-110 18-30 91-179/33-97 98-98 Constitutional: Yes: cachectic, No Distress, Calm Cardiovascular: Yes: Regular Rate and Rhythm. No: JVD (tds exam), Gallop, Murmur Respiratory: Yes: Regular,cta, nl effort Extremities: No: Cold Edema: No Neurological: Yes: Alert. No: Seizure Psychiatric: No: Agitated dimished dp/pt, gangrene of left foot. Labs: CBC, BMP 10/24/17 05:15 10/24/17 05:15 tele: SR EKG 10/03: sinus tach with atrial run. non-sp t wave ab. no ischemic changes. 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 diverticulosis, gastritis, esophagitis. cxr: still with congestive changes, with some infiltrative findings at right base with fluid. cxr 10/05: RLL consolidation and pleural fluid. cxr 10/08 improved aeration at right base. 10/05 renal u/s reviewed. small amount of ascites. see emr for detailed report. Echo 06/2017: mod lvh. nl lv fn. nl rv size/fn. 1+ lae. mod-sev mac with mod ms. 1+ mr. nl rvsp. 1+ ao dilation A/P 76 yo with pmhx of htn, hl, pad, afib (not on AC due to GIB), cva (no residual deficits), copd, dm, mgus, esthesioneuroblastoma treated with radiation therapy , chronic anemia s/p recent GIB admitted with dka, sepsis, resp failure. Hospital course now complicated by episode of afib with rvr afib - not previously a candidate for AC b/c of prior hx of GIB. remains anemic with melena here as well. - s/p IV amio. started po dilt 10/05. now back in sr. hr controlled. - off Amio, remains in sinus. BPs soft but tolerating diltiazem hi dose (90mg q6H)--continue same for now - change to cardizem CD regimen once bp's clearly out of the ngo as far as hypotension - hgb drifted down once ASA resumed--now d/c'd. not a candidate for AC at this time as risks of serious bleeding are > benefits - remains in SR, bp thus far tolerating diltiazem at present dose - 10/19: episode of bradycardia with intermittent dropped qrs complexes and runs of ventricular escape. Will decrease diltiazem to 60 mg q6h. Observe for recurrence of RVR. -10/20-10/21: no rvr or bradycardia on tele - 10/21-: remains rate controlled/sr on dilt mitral stenosis: - aggressive control of afib to prevent tachycardia CHF as doing - defer amio for now, may have to reconsider if recurrent rapid AF despite sepsis/PNA complete resolution PNA with septic shock, resp failure, resolving - off phenylephrine as of AM 10/11, hemodynamically stable currently - extubated 10/12 anemia, GI bleeding: - ongoing UGIB here with stool guaiac + (iker hgb 6.1) - s/p PRBCs, last on 10/18 - counts stable - no cardiac contraindications to planned egd/foc. - s/p endoscopy 10/21 --> avm cauterized. see above htn - home meds changed to diltiazem here for PAF rate control - bp stable cva/pad - con't statin. - per pmd, previously not a candidate for asa due to recent gib and anemia. hgb drifting down on asa here, held again mild asc ao dilation - cont bp control SHANTA - renal following, no sig improvement --> initiated HD 10/07. - currently have been monitoring off HD. started on torsemide per renal
--- NOTE | 2017-10-24 12:46 | PN ---
Progress Note, Physician History of Present Illness: Pt is alert, without distress. No new complaints. Afebrile today. - Current Medication List Current Medications: Active Medications Acetaminophen (Tylenol -) 650 mg PO Q6H PRN PRN Reason: FEVER Acetylcysteine (Mucomyst 20 Oral / Inh Use Only*) 200 mg NEB RQID [facility] Last Admin: 10/24/17 11:44 Dose: 200 mg Albuterol Sulfate (Ventolin 0.083% Nebulizer Soln -) 1 amp NEB RQID [facility] Last Admin: 10/24/17 11:45 Dose: 1 amp Amino Acids (Prosource No Carb Liquid Pkt) 30 ml NGT BID@0800,1730 [facility] Last Admin: 10/24/17 09:16 Dose: 30 ml Chlorhexidine Gluconate (Hibiclens For Decolonization -) 1 applic TP [facility] Last Admin: 10/24/17 00:09 Dose: 1 applic Darbepoetin Trell (Aranesp -) 25 mcg SQ Q7D@1000 [facility] Last Admin: 10/22/17 17:21 Dose: 25 mcg Diltiazem HCl (Cardizem Cd -) 120 mg PO BID [facility] Last Admin: 10/24/17 09:17 Dose: 120 mg Insulin Aspart (Novolog Vial Sliding Scale -) 1 vial SQ TIDAC [facility] PRN Reason: Protocol Last Admin: 10/24/17 06:22 Dose: 6 units Insulin Detemir (Levemir Vial) 5 units SQ [facility] Last Admin: 10/24/17 00:11 Dose: 5 unit Metoprolol Tartrate (Lopressor Injection -) 5 mg IVPUSH Q4H PRN PRN Reason: TACHYCARDIA Nystatin (Nystatin Oral Suspension -) 500,000 units PO Q6HPO [facility] Last Admin: 10/24/17 06:22 Dose: 500,000 units Pantoprazole Sodium (Protonix -) 40 mg PO DAILY [facility] Last Admin: 10/24/17 09:16 Dose: 40 mg Tamsulosin HCl (Flomax -) 0.4 mg PO DAILY@0830 [facility] Last Admin: 10/24/17 09:16 Dose: 0.4 mg Torsemide (Demadex -) 40 mg PO DAILY [facility] Last Admin: 10/24/17 09:17 Dose: 40 mg - Objective Vital Signs: Vital Signs Temperature 98.4 F 10/24/17 06:00 Pulse Rate 95 H 10/24/17 10:00 Respiratory Rate 30 H 10/24/17 10:00 Blood Pressure 125/49 10/24/17 10:00 O2 Sat by Pulse Oximetry (%) 100 10/24/17 10:00 Constitutional: Yes: No Distress, Calm Cardiovascular: Yes: Regular Rate and Rhythm Respiratory: Yes: Regular Gastrointestinal: Yes: Normal Bowel Sounds, Soft Genitourinary: Yes: Langston Present (clear, yellow urine) Neurological: Yes: Alert Labs: CBC, BMP 10/24/17 05:15 INR, PTT INR 1.16 (0.82-1.09) H 10/15/17 05:46 blood cultures pending Problem List - Problems (1) DKA (diabetic ketoacidoses) Code(s): E13.10 - OTH DIABETES MELLITUS WITH KETOACIDOSIS WITHOUT COMA (2) Diabetes mellitus Code(s): E11.9 - TYPE 2 DIABETES MELLITUS WITHOUT COMPLICATIONS (3) SHANTA (acute kidney injury) Code(s): N17.9 - ACUTE KIDNEY FAILURE, UNSPECIFIED (4) Anemia Code(s): D64.9 - ANEMIA, UNSPECIFIED Qualifiers: Other causes of anemia: acute posthemorrhagic (5) Aortic aneurysm Code(s): I71.9 - AORTIC ANEURYSM OF UNSPECIFIED SITE, WITHOUT RUPTURE Qualifiers: Aortic location: thoracic aorta Presence of rupture: without rupture Qualified Code(s): I71.2 - Thoracic aortic aneurysm, without rupture (6) Pneumonia Code(s): J18.9 - PNEUMONIA, UNSPECIFIED ORGANISM (7) CKD (chronic kidney disease) Code(s): N18.9 - CHRONIC KIDNEY DISEASE, UNSPECIFIED Assessment/Plan 76 year old male Acute Hypoxic Respiratory Failure improved Pneumonia/septic shock - s/p treatment Acute on Chronic Renal Failure Lactic Acidosis Diabetic Ketoacidosis - improved HTN DM COPD gluteal ulcer GI bleed -- pt afebrile today, mild temp elevation yesterday -- continue monitor off antibiotics, pt appears stable at this time -- f/u repeat blood culture results
[2017-10-24] MEDS ORDERED: MAGNESIUM SULF 50% (8.12 MEQ/2 ML-1 GM VIAL) IVPB ONE ×2 (12:59→13:21)
--- NOTE | 2017-10-24 13:21 | PN ---
Teaching Attending Note Name of Resident: Lachelle Bustamante SUBJECTIVE: patient seen and examined. get nebs treatment, no pain or complaints currently. Limited ROS as patient upset and answering in mono syllables. OBJECTIVE: Vital Signs Period Temp Pulse Resp BP Sys/Sy Pulse Ox Last 24 Hr 98.2 F-100.1 F 90-107 18-30 91-179/33-97 98-100 Intake & Output 10/21/17 10/22/17 10/23/17 10/24/17 23:59 23:59 23:59 23:59 Intake Total 1070 480 960 140 Output Total 2520 3200 1500 1600 Balance -5020 -7370 -540 -1460 Weight 119 lb 0.794 oz 114 lb 8 oz 113 lb 9 oz 112 lb 9 oz General: lying in bed in no acute distress Chest: poor effort, limited exam, occasional scattered rales Abdomen:soft, NT, ND, positive bowel sounds extremities: left heel pressure eschar and discoloation of left 2nd and 3rd toes Home Medication List Medication Instructions Recorded Confirmed Type Simvastatin [Zocor -] 20 mg PO HS 05/11/14 10/03/17 History Timolol 0.5% [Timoptic] 1 drop OU DAILY 05/11/14 10/03/17 History Active Medications Generic Name Dose Route Start Last Admin Trade Name Dannyq PRN Reason Stop Dose Admin Acetaminophen 650 mg 10/22/17 19:49 Tylenol - PO Q6H PRN FEVER Acetylcysteine 200 mg 10/22/17 20:00 10/24/17 11:44 Mucomyst 20 Oral / Inh Use Only* NEB 200 mg RQID SELVIN Administration Albuterol Sulfate 1 amp 10/22/17 20:00 10/24/17 11:45 Ventolin 0.083% Nebulizer Soln - NEB 1 amp RQID SELVIN Administration Amino Acids 30 ml 10/23/17 08:00 10/24/17 09:16 Prosource No Carb Liquid Pkt NGT 30 ml BID@0800,1730 SELVIN Administration Chlorhexidine Gluconate 1 applic 10/22/17 22:00 10/24/17 00:09 Hibiclens For Decolonization - TP 1 applic HS [facility]EL[facility]IN Administration Darbepoetin Trell 25 mcg 10/22/17 12:30 10/22/17 17:21 Aranesp - SQ 25 mcg Q7D@1000 SEL[facility]IN Administration Diltiazem HCl 120 mg 10/23/17 10:00 10/24/17 09:17 Cardizem Cd - PO 120 mg BID SELVIN Administration Magnesium Sulfate 2 gm in 50 mls @ 50 mls/hr 10/24/17 14:00 Magnesium Sulf 2 G/50 Ml Bag IVPB 10/24/17 14:59 ONCE ONE Insulin Aspart 1 vial 10/23/17 11:36 10/24/17 06:22 Novolog Vial Sliding Scale - SQ 6 units TIDAC SELVIN Administration Protocol Insulin Aspart 7 units 10/24/17 13:12 Novolog SQ 10/24/17 13:13 ONCE ONE Insulin Detemir 5 units 10/24/17 22:00 Levemir Vial SQ [facility] Magnesium Sulfate 2 gm 10/24/17 12:59 Magnesium Sulfate IVPB 10/24/17 13:00 ONCE ONE Metoprolol Tartrate 5 mg 10/22/17 19:49 Lopressor Injection - IVPUSH Q4H PRN TACHYCARDIA Nystatin 500,000 units 10/23/17 00:00 10/24/17 06:22 Nystatin Oral Suspension - PO 500,000 units Q6HPO SELVIN Administration Pantoprazole Sodium 40 mg 10/23/17 10:00 10/24/17 09:16 Protonix - PO 40 mg DAILY SELVIN Administration Tamsulosin HCl 0.4 mg 10/23/17 08:30 10/24/17 09:16 Flomax - PO 0.4 mg DAILY@0830 SELVIN Administration Torsemide 40 mg 10/22/17 12:30 10/24/17 09:17 Demadex - PO 40 mg DAILY SELVIN Administration Laboratory Results - last 24 hr 10/23/17 10/23/17 10/23/17 05:27 17:40 21:52 WBC RBC Hgb Hct MCV MCH MCHC RDW Plt Count MPV Neutrophils % Lymphocytes % Monocytes % Eosinophils % Basophils % Sodium Potassium Chloride Carbon Dioxide Anion Gap BUN Creatinine Creat Clearance w eGFR POC Glucometer 174.66682 326.86919 > 400 Random Glucose Calcium Phosphorus Magnesium Total Bilirubin AST ALT Alkaline Phosphatase Total Protein Albumin 10/24/17 10/24/17 10/24/17 05:15 05:15 05:20 WBC 8.5 RBC 2.59 L Hgb 8.2 L Hct 23.4 L MCV 90.3 MCH 31.9 MCHC 35.3 RDW 15.6 Plt Count 403 MPV 7.7 Neutrophils % 82.2 Lymphocytes % 5.9 L Monocytes % 10.2 Eosinophils % 0.9 Basophils % 0.8 Sodium 139 Potassium 4.4 Chloride 97 L Carbon Dioxide 30 Anion Gap 12 BUN 75 H Creatinine 4.1 H Creat Clearance w eGFR 14.18 POC Glucometer [phone] Random Glucose 281 H D Calcium 7.6 L Phosphorus 5.4 H Magnesium 1.6 L Total Bilirubin 0.2 AST 10 L D ALT < 6 L Alkaline Phosphatase 99 Total Protein 5.5 L Albumin 1.5 L 10/24/17 12:35 WBC RBC Hgb Hct MCV MCH MCHC RDW Plt Count MPV Neutrophils % Lymphocytes % Monocytes % Eosinophils % Basophils % Sodium Potassium Chloride Carbon Dioxide Anion Gap BUN Creatinine Creat Clearance w eGFR POC Glucometer Random Glucose 446 H* D Calcium Phosphorus Magnesium Total Bilirubin AST ALT Alkaline Phosphatase Total Protein Albumin Microbiology 10/02/17 23:39 Blood - Peripheral Venous Blood Culture - Final NO GROWTH AFTER 5 DAYS INCUBATION 10/02/17 23:39 Blood - Peripheral Venous Blood Culture - Final NO GROWTH AFTER 5 DAYS INCUBATION 10/03/17 11:01 Sputum - Endotrachea Suction/Ventilator Gram Stain - Final 10/03/17 11:01 Sputum - Endotrachea Suction/Ventilator Sputum Culture - Final Staphylococcus Aureus 10/03/17 06:36 Urine - Urine Clean Catch Urine Culture - Final NO GROWTH OBTAINED 10/03/17 14:00 Urine For Antigen Detection Legionella Antigen - Final 10/03/17 14:00 Urine For Antigen Detection Streptococcus pneumoniae Antigen (M - Final ASSESSMENT AND PLAN: 76 yo with pmhx of htn, hl, pad, afib (not on AC due to GIB), cva (no residual deficits), copd, dm, mgus, esthesioneuroblastoma treated with radiation therapy , PNA with septic shock/DKA/hypoxic respiratory failure, course complicated by GIB s/p EGD/colonoscopy, afib with RVR. -PNA with septic shock, resolved extubated 10/12, off pressors 10/11 -Acute hypoxic respiratory failure resolved, extubated 10/12 -GIB s/p EGD/colonoscopy with gastritis/Esophagitis and extensive diverticulosis /Cecal AVM s/p cautery 10/21 -Acute on chronic anemia from blood loss/SHANTA -SHANTA on CKD s/p short course of HD initiated 10/07, now off -Afib with RVR duet to above -MItral stenosis -Hyperglycemia/?DKA, now with labile blood sugars -CVA -PAD, left heel eschar and Left first/second toe discoloration -HTN -Hypomagnesemia Plan: OFf pressors/extubated. Antibiotics per ID. Off HD. getting aranesp. Monitor renal function. Follow renal recs. Torsemide/ flomax h/h overall stable, continue protonix. Continue cardizem. Metoprolol IV prn. Follow up cardiology recs. Labile blood sugars. OFf D5 this AM. levemir 5 units hs, ISS, follow up endocrine recs. Replete Mg today. Not on anticoagulation due to GI bleed. DNR/DNI dispo planning. Total critical care time spent in ICU 35 min.
[2017-10-24] MEDS ORDERED: INSULIN (LEVEMIR) 100 UNITS/ML UNITS SQ ONE (13:30)
[2017-10-24] MEDS ORDERED: Insulin (LOG) Aspart 100 UNITS/ML VIAL SQ ONE (13:30)
[2017-10-24] MEDS ORDERED: MAGNESIUM SULFATE IN WATER 2 GM/50 ML IVPB IVPB ONE (14:00)
--- NOTE | 2017-10-24 14:39 | PN ---
Progress Note (short form) - Note Progress Note: No complaints On D10W 20ml/hr during the night Fluctuating blood sugar Getting Juice with meals Vital Signs Period Temp Pulse Resp BP Sys/Sy Pulse Ox Last 24 Hr 98.2 F-100.1 F 90-107 18-30 91-179/33-97 98-100 PE: , awake, alert Neck: supple Lungs: CTA CVS: S1S2 Abd: Benign Ext: No edema, dusky coloration left 1st and 2nd toes, black discoloration of left heel Neuro: Awake, open eyes, CMP Sodium 139 mmol/L (136-145) 10/24/17 05:15 Potassium 4.4 mmol/L (3.5-5.1) 10/24/17 05:15 Chloride 97 mmol/L (98-107) L 10/24/17 05:15 Carbon Dioxide 30 mmol/L (21-32) 10/24/17 05:15 Anion Gap 12 (8-16) 10/24/17 05:15 BUN 75 mg/dL (7-18) H 10/24/17 05:15 Creatinine 4.1 mg/dL (0.7-1.3) H 10/24/17 05:15 Creat Clearance w eGFR 14.18 (>60) 10/24/17 05:15 POC Glucometer 317.29824 UNITS (80-120) 10/24/17 05:20 Random Glucose 446 mg/dL (74-106) H* D 10/24/17 12:35 Hemoglobin A1c % 8.5 % (4.8-6.0) H D 10/04/17 06:00 Lactic Acid 2.0 mmol/L (0.0-2.0) 10/03/17 12:00 Calcium 7.6 mg/dL (8.5-10.1) L 10/24/17 05:15 Phosphorus 5.4 mg/dL (2.5-4.9) H 10/24/17 05:15 Magnesium 1.6 mg/dL (1.8-2.4) L 10/24/17 05:15 Iron 22 ug/dL (38-169) L 10/06/17 05:50 Ferritin 202.816 ng/ml (16.4-293.9) 10/06/17 05:50 Total Bilirubin 0.2 mg/dL (0.2-1.0) 10/24/17 05:15 AST 10 U/L (15-37) L D 10/24/17 05:15 ALT < 6 U/L (12-78) L 10/24/17 05:15 Alkaline Phosphatase 99 U/L (45-117) 10/24/17 05:15 Total Protein 5.5 g/dl (6.4-8.2) L 10/24/17 05:15 Albumin 1.5 g/dl (3.4-5.0) L 10/24/17 05:15 Vitamin B12 1602 pg/ml (180-914) H 10/06/17 05:50 Serum Folate 23 ng/ml (3.1-17.5) H 10/06/17 05:50 Current Medications Generic Name Dose Route Start Last Admin Trade Name Freq PRN Reason Stop Dose Admin Acetaminophen 650 mg 10/22/17 19:49 Tylenol - PO Q6H PRN FEVER Acetylcysteine 200 mg 10/22/17 20:00 10/24/17 11:44 Mucomyst 20 Oral / Inh Use Only* NEB 200 mg RQID SELVIN Administration Albuterol Sulfate 1 amp 10/22/17 20:00 10/24/17 11:45 Ventolin 0.083% Nebulizer Soln - NEB 1 amp RQID SELVIN Administration Amino Acids 30 ml 10/23/17 08:00 10/24/17 09:16 Prosource No Carb Liquid Pkt NGT 30 ml BID@0800,1730 SELVIN Administration Chlorhexidine Gluconate 1 applic 10/22/17 22:00 10/24/17 00:09 Hibiclens For Decolonization - TP 1 applic HS [facility]ELVIN Administration Darbepoetin Trell 25 mcg 10/22/17 12:30 10/22/17 17:21 Aranesp - SQ 25 mcg Q7D@1000 SELVIN Administration Diltiazem HCl 120 mg 10/23/17 10:00 10/24/17 09:17 Cardizem Cd - PO 120 mg BID SELVIN Administration Magnesium Sulfate 2 gm in 50 mls @ 50 mls/hr 10/24/17 14:00 Magnesium Sulf 2 G/50 Ml Bag IVPB 10/24/17 14:59 ONCE ONE Insulin Aspart 1 vial 10/23/17 11:36 10/24/17 13:38 Novolog Vial Sliding Scale - SQ Not Given TIDAC [facility] Protocol Insulin Detemir 5 units 10/24/17 22:00 Levemir Vial SQ HS [facility] Metoprolol Tartrate 5 mg 10/22/17 19:49 Lopressor Injection - IVPUSH Q4H PRN TACHYCARDIA Nystatin 500,000 units 10/23/17 00:00 10/24/17 13:30 Nystatin Oral Suspension - PO 500,000 units Q6HPO SELVIN Administration Pantoprazole Sodium 40 mg 10/23/17 10:00 10/24/17 09:16 Protonix - PO 40 mg DAILY [facility]IN Administration Tamsulosin HCl 0.4 mg 10/23/17 08:30 10/24/17 09:16 Flomax - PO 0.4 mg DAILY@0830 [facility]IN Administration Torsemide 40 mg 10/22/17 12:30 10/24/17 09:17 Demadex - PO 40 mg DAILY [facility]EL[facility]IN Administration AP; Acute Hypoxic Respiratory Failure s/p Extubation Pneumonia Septic Shock DM with Acidosis ? DKA,?Lactic acidosis Acute on Chronic Renal Failure Paroxysmal Atrial Fibrillation with RVR HTN COPD Ischemic changes left first and 2nd toes GI bleeding s/p transfuison S/P EGD and Colonoscopy BGM QACHS and 3 a.m. No Juice with meals, BGM at 3 a.m. also as ordered. Discussed with RN Increase Levemir 7 units daily, Increase Novolog coverage Chart reviewed Start D10W at 42 ml/hr whenever tube feeding is on hold or discontinued until food intake is adequate. As pt was admitted with acidosis possibly DKA, need to continue to administer long acting Insulin Will f/u
--- NOTE | 2017-10-24 15:26 | PN ---
Progress Note (short form) - Note Progress Note: icu covering dr witt copd ig bleed diverticulosis steve/atn/sepsis s/p hd x 2 diverticulosis hld cva intussusception htn sinus ca s/p excision Current Medications Acetaminophen (Tylenol -) 650 mg PO Q6H PRN PRN Reason: FEVER Acetylcysteine (Mucomyst 20 Oral / Inh Use Only*) 200 mg NEB RQID [facility] Last Admin: 10/24/17 11:44 Dose: 200 mg Albuterol Sulfate (Ventolin 0.083% Nebulizer Soln -) 1 amp NEB RQID [facility] Last Admin: 10/24/17 11:45 Dose: 1 amp Amino Acids (Prosource No Carb Liquid Pkt) 30 ml NGT BID@0800,1730 [facility] Last Admin: 10/24/17 09:16 Dose: 30 ml Chlorhexidine Gluconate (Hibiclens For Decolonization -) 1 applic TP [facility] Last Admin: 10/24/17 00:09 Dose: 1 applic Darbepoetin Trell (Aranesp -) 25 mcg SQ Q7D@1000 [facility] Last Admin: 10/22/17 17:21 Dose: 25 mcg Diltiazem HCl (Cardizem Cd -) 120 mg PO BID [facility] Last Admin: 10/24/17 09:17 Dose: 120 mg Insulin Aspart (Novolog Vial Sliding Scale -) 1 vial SQ TIDAC [facility] PRN Reason: Protocol Insulin Detemir (Levemir Vial) 7 units SQ [facility] Metoprolol Tartrate (Lopressor Injection -) 5 mg IVPUSH Q4H PRN PRN Reason: TACHYCARDIA Nystatin (Nystatin Oral Suspension -) 500,000 units PO Q6HPO [facility] Last Admin: 10/24/17 13:30 Dose: 500,000 units Pantoprazole Sodium (Protonix -) 40 mg PO DAILY [facility] Last Admin: 10/24/17 09:16 Dose: 40 mg Tamsulosin HCl (Flomax -) 0.4 mg PO DAILY@0830 [facility] Last Admin: 10/24/17 09:16 Dose: 0.4 mg Torsemide (Demadex -) 40 mg PO DAILY [facility] Last Admin: 10/24/17 09:17 Dose: 40 mg Last Vital Signs Temp Pulse Resp BP Pulse Ox 98.4 F 95 H 24 126/47 100 10/24/17 12:00 04/29/18 12:00 10/24/17 12:00 10/24/17 12:00 10/24/17 10:00 verbally responsive no distress d lungs- rhonchi heart reg abd soft no guarding ext no edema CBC, BMP 10/24/17 05:15 10/23/17 05:20 10/24/17 05:15 Sodium 139 Potassium 4.4 Carbon Dioxide 30 BUN 75 H Creatinine 4.1 H Phosphorus 5.4 H Magnesium 1.6 L Total Protein 5.5 L Albumin 1.5 L IMP-s/p steve on hd now being monitored for indication for dialysis in future no indication today severe anemia sepsis hypotension with sedation plan- follow chemistries and fluid status
[2017-10-24] MEDS ORDERED: INSULIN (LEVEMIR) 100 UNITS/ML UNITS SQ SCH ×3 (22:00)
[2017-10-25] MEDS: NYSTATIN 500,000 UNITS/5 ML SUSPENSION PO SCH ×6 (05:56→17:57)
[2017-10-25 06:02] LABS: BASO % 0.8 % (0-2.0); EOS % 0.9 % (0-4.5); HEMATOCRIT 24.7 % (35.4-49); HEMOGLOBIN 8.6 GM/dL (11.7-16.9); LYMPH % 6.2 % (8-40); MCH 31.8 pg (25.7-33.7); MCHC 34.6 g/dl (32.0-35.9); MEAN CELL VOLUME 91.8 fl (80-96); MEAN PLT VOLUME 8.1 fl (7.5-11.1); MONO % 8.3 % (3.8-10.2); NEUT % 83.8 % (42.8-82.8); PLATELET COUNT 407 K/MM3 (134-434); RBC 2.69 M/mm3 (4.00-5.60)
[2017-10-25] MEDS: INSULIN SLIDING SCALE (NOVOLOG) 1 VIAL SQ SCH ×3 (06:13→22:03)
[2017-10-25 06:29] LABS: ALBUMIN 1.6 g/dl (3.4-5.0); ALK PHOS 107 U/L (45-117); ANION GAP 9 (8-16); BILIRUBIN,TOTAL 0.2 mg/dL (0.2-1.0); BLOOD UREA NITROGEN 79 mg/dL (7-18); CALCIUM 8.2 mg/dL (8.5-10.1); CHLORIDE 98 mmol/L (98-107); CO2 34 mmol/L (21-32); CREATININE 4.2 mg/dL (0.7-1.3); GLUCOSE,RANDOM 132 mg/dL (74-106); MAGNESIUM 2.3 mg/dL (1.8-2.4); PHOSPHOROUS 5.4 mg/dL (2.5-4.9); POTASSIUM 4.2 mmol/L (3.5-5.1); SGOT/AST 18 U/L (15-37); SGPT/ALT < 6 U/L (12-78); SODIUM 141 mmol/L (136-145); TOT PROT 5.8 g/dl (6.4-8.2)
[2017-10-25] MEDS: ALBUTEROL SO4 0.083% IH SOL 2.5 MG/3 ML VIAL.NEB. NEB SCH ×4 (07:20→20:54)
[2017-10-25] MEDS: ACETYLCYSTEINE 20% 200MG/ML 4 ML VIAL *FOR ORAL / INH USE ONLY NEB SCH ×5 (07:20→20:54)
[2017-10-25] MEDS: AMINO ACIDS/PROTEIN HYDROLYS 30 ML LIQUID.PKT NGT SCH ×2 (08:10→17:56)
[2017-10-25] MEDS: TAMSULOSIN HCL 0.4 MG CAP.ER.24H (FP) PO SCH (08:12)
[2017-10-25] MEDS: PANTOPRAZOLE 40 MG TABLET (FP) PO SCH (09:00)
[2017-10-25] MEDS: TORSEMIDE 20 MG TABLET (FP) PO SCH (09:00)
--- NOTE | 2017-10-25 10:05 | PN ---
Progress Note (short form) - Note Progress Note: Patient seen and examined today. Alert and aware Some coughing but no complaints of chest pain Looking to move out of ICU. A great deal of urine output but BUN and Creatinine a bit higher today; Hb stable. On exam: Vital Signs Period Temp Pulse Resp BP Sys/Sy Pulse Ox Last 24 Hr 98.4 F 90-103 22-30 108-126/40-90 100-100 Vital Signs Temp 98.4 F 10/24/17 12:00 Pulse 98 H 10/25/17 08:00 Resp 22 10/25/17 08:00 BP 109/90 10/25/17 08:00 Pulse Ox 100 10/25/17 08:52 Intake & Output 10/24/17 10/24/17 10/25/17 11:59 23:59 11:59 Intake Total 140 200 200 Output Total 1600 400 300 Balance -1460 -200 -100 Weight 112 lb 9 oz 107 lb 14.4 oz Intake: IV 140 D10w - 1,000 ml @ 20 mls/ 140 hr IV ASDIR SELVIN Rx#: [id number] IVPB 50 Oral 150 200 Output: Urine 1600 400 300 [place] 1600 400 300 Other: Voiding Method Indwelling Catheter Indwelling Catheter Indwelling Catheter Bowel Movement No Weight Measurement Method [facility] Chest: Few Rhonchi at bases; no wheezes CorReg. Abd: Slightly distended but nontender ExT; Dreied demarcated areas at the tips of ist 3 toes Abnormal Lab Results 10/24/17 10/25/17 10/25/17 12:35 05:20 05:20 RBC 2.69 L Hgb 8.6 L Hct 24.7 L Neutrophils % 83.8 H Lymphocytes % 6.2 L Carbon Dioxide 34 H BUN 79 H Creatinine 4.2 H Random Glucose 446 H* D 132 H D Calcium 8.2 L Phosphorus 5.4 H ALT < 6 L Total Protein 5.8 L Albumin 1.6 L IMP: GI Bleed with blood loss anemia Sepsis with Pneumonia Uncontrolled DM Critical illness Neuropathy/Myopathy Acute on Chronic renal Failure Plan: Transfer floor care F/U Lab PT
--- NOTE | 2017-10-25 10:44 | PN ---
Teaching Attending Note Name of Resident: Curt Caputo ATTENDING PHYSICIAN STATEMENT I saw and evaluated the patient. I reviewed the resident's note and discussed the case with the resident. I agree with the resident's findings and plan as documented. SUBJECTIVE: Pt seen and examined in the ICU. No overnight events. Denies shortness of breath or chest pain. Tolerating PO. Good urine output OBJECTIVE: Last Vital Signs Temp Pulse Resp BP Pulse Ox 98.4 F 98 H 22 109/90 100 10/24/17 12:00 10/25/17 08:00 10/25/17 08:00 10/25/17 08:00 10/25/17 08:52 Intake & Output 10/22/17 10/23/17 10/24/17 10/25/17 23:59 23:59 23:59 23:59 Intake Total 480 960 340 200 Output Total 3200 1500 2000 300 Balance -2720 -540 -1660 -100 Weight 51.936 kg 51.511 kg 51.057 kg 48.943 kg Gen: NAD at rest Heart: RRR Lung: decreased breath sounds at the bases Abd: soft, nontender Ext: no edema, ischemic left toes CBC, BMP 10/25/17 05:20 10/25/17 05:20 Active Medications Acetaminophen (Tylenol -) 650 mg PO Q6H PRN PRN Reason: FEVER Last Admin: 10/24/17 23:47 Dose: 650 mg Acetylcysteine (Mucomyst 20 Oral / Inh Use Only*) 200 mg NEB RQID [facility] Last Admin: 10/25/17 07:20 Dose: 200 mg Albuterol Sulfate (Ventolin 0.083% Nebulizer Soln -) 1 amp NEB RQID [facility] Last Admin: 10/25/17 07:20 Dose: 1 amp Amino Acids (Prosource No Carb Liquid Pkt) 30 ml NGT BID@0800,1730 [facility] Last Admin: 10/25/17 08:10 Dose: 30 ml Chlorhexidine Gluconate (Hibiclens For Decolonization -) 1 applic TP HS [facility] Last Admin: 10/24/17 23:44 Dose: 1 applic Darbepoetin Trell (Aranesp -) 25 mcg SQ Q7D@1000 [facility] Last Admin: 10/22/17 17:21 Dose: 25 mcg Diltiazem HCl (Cardizem Cd -) 120 mg PO BID [facility] Last Admin: 10/25/17 09:00 Dose: 120 mg Insulin Aspart (Novolog Vial Sliding Scale -) 1 vial SQ TIDAC [facility] PRN Reason: Protocol Last Admin: 10/25/17 06:13 Dose: 3 units Insulin Detemir (Levemir Vial) 7 units SQ HS [facility] Last Admin: 10/24/17 23:44 Dose: 5 unit Metoprolol Tartrate (Lopressor Injection -) 5 mg IVPUSH Q4H PRN PRN Reason: TACHYCARDIA Nystatin (Nystatin Oral Suspension -) 500,000 units PO Q6HPO [facility] Last Admin: 10/25/17 06:14 Dose: 500,000 units Pantoprazole Sodium (Protonix -) 40 mg PO DAILY [facility] Last Admin: 10/25/17 09:00 Dose: 40 mg Tamsulosin HCl (Flomax -) 0.4 mg PO DAILY@0830 [facility] Last Admin: 10/25/17 08:12 Dose: 0.4 mg Torsemide (Demadex -) 40 mg PO DAILY [facility] Last Admin: 10/25/17 09:00 Dose: 40 mg ASSESSMENT AND PLAN: Acute Hypoxic Respiratory Failure improving Pneumonia treated Septic Shock resolving Acute on Chronic Renal Failure requiring HD improving Lactic Acidosis resolved Diabetic Ketoacidosis resolved Paroxysmal Atrial Fibrillation with RVR GI bleed HTN DM COPD - monitor H/H - monitoring off antibiotics - HD per renal - monitor urine output, creatinine - monitor I/Os - glucose control - rate control - holding anticoagulation due to GI bleed - taper FiO2 to keep SpO2 >90% - would get vascular input on gangrenous toes - PO as tolerated - aspiration precautions - rehab/PT - DVT/GI prophylaxis - can monitor on telemetry
[2017-10-25] MEDS ORDERED: ACETAMINOPHEN 325 MG TABLET (FP) PO PRN (11:23)
[2017-10-25] MEDS ORDERED: METOPROLOL TARTRATE 5 MG/5 ML VIAL IVPUSH PRN (11:23)
[2017-10-25] MEDS ORDERED: Insulin (LOG) Aspart 100 UNITS/ML VIAL SQ ONE (12:02)
--- NOTE | 2017-10-25 12:12 | PN ---
Progress Note (short form) - Note Progress Note: No complaints Fluctuating blood sugar Getting Juice with meals Vital Signs Period Temp Pulse Resp BP Sys/Sy Pulse Ox Last 24 Hr 98.5 F 90-103 20-29 108-125/40-90 100-100 PE: , awake, alert Neck: supple Lungs: CTA CVS: S1S2 Abd: Benign Ext: No edema, dusky coloration left 1st and 2nd toes, black discoloration of left heel Neuro: Awake, alert CMP Sodium 141 mmol/L (136-145) 10/25/17 05:20 Potassium 4.2 mmol/L (3.5-5.1) 10/25/17 05:20 Chloride 98 mmol/L (98-107) 10/25/17 05:20 Carbon Dioxide 34 mmol/L (21-32) H 10/25/17 05:20 Anion Gap 9 (8-16) 10/25/17 05:20 BUN 79 mg/dL (7-18) H 10/25/17 05:20 Creatinine 4.2 mg/dL (0.7-1.3) H 10/25/17 05:20 Creat Clearance w eGFR 13.79 (>60) 10/25/17 05:20 POC Glucometer 160.14628 UNITS (80-120) 10/25/17 05:51 Random Glucose 132 mg/dL (74-106) H D 10/25/17 05:20 Hemoglobin A1c % 8.5 % (4.8-6.0) H D 10/04/17 06:00 Lactic Acid 2.0 mmol/L (0.0-2.0) 10/03/17 12:00 Calcium 8.2 mg/dL (8.5-10.1) L 10/25/17 05:20 Phosphorus 5.4 mg/dL (2.5-4.9) H 10/25/17 05:20 Magnesium 2.3 mg/dL (1.8-2.4) D 10/25/17 05:20 Iron 22 ug/dL (38-169) L 10/06/17 05:50 Ferritin 202.816 ng/ml (16.4-293.9) 10/06/17 05:50 Total Bilirubin 0.2 mg/dL (0.2-1.0) 10/25/17 05:20 AST 18 U/L (15-37) D 10/25/17 05:20 ALT < 6 U/L (12-78) L 10/25/17 05:20 Alkaline Phosphatase 107 U/L (45-117) 10/25/17 05:20 Total Protein 5.8 g/dl (6.4-8.2) L 10/25/17 05:20 Albumin 1.6 g/dl (3.4-5.0) L 10/25/17 05:20 Vitamin B12 1602 pg/ml (180-914) H 10/06/17 05:50 Serum Folate 23 ng/ml (3.1-17.5) H 10/06/17 05:50 Current Medications Generic Name Dose Route Start Last Admin Trade Name Freq PRN Reason Stop Dose Admin Acetaminophen 650 mg 10/25/17 11:23 Tylenol - PO Q6H PRN FEVER Acetylcysteine 200 mg 10/25/17 12:00 10/25/17 11:26 Mucomyst 20 Oral / Inh Use Only* NEB 200 mg RQID SELVIN Administration Albuterol Sulfate 1 amp 10/25/17 12:00 10/25/17 11:27 Ventolin 0.083% Nebulizer Soln - NEB 1 amp RQID [facility]EL[facility]IN Administration Amino Acids 30 ml 10/25/17 17:30 Prosource No Carb Liquid Pkt NGT BID@0800,1730 [facility] Chlorhexidine Gluconate 1 applic 10/25/17 22:00 Hibiclens For Decolonization - TP HS SELVIN Darbepoetin Trell 25 mcg 10/29/17 10:00 Aranesp - SQ Q7D@1000 S[facility] Diltiazem HCl 120 mg 10/25/17 22:00 Cardizem Cd - PO BID SEL[facility]IN Insulin Aspart 1 vial 10/25/17 16:30 Novolog Vial Sliding Scale - SQ TIDAC SELVIN Protocol Insulin Aspart 10 units 10/25/17 12:02 Novolog SQ 10/25/17 12:03 ONCE ONE Protocol Insulin Detemir 7 units 10/25/17 22:00 Levemir Vial SQ HS SELVIN Metoprolol Tartrate 5 mg 10/25/17 11:23 Lopressor Injection - IVPUSH Q4H PRN TACHYCARDIA Nystatin 500,000 units 10/25/17 12:00 Nystatin Oral Suspension - PO Q6HPO SEL[facility]IN Pantoprazole Sodium 40 mg 10/26/17 10:00 Protonix - PO DAILY [facility] Tamsulosin HCl 0.4 mg 10/26/17 08:30 Flomax - PO DAILY@0830 [facility] Torsemide 20 mg 10/26/17 10:00 Demadex - PO DAILY [facility] AP; Acute Hypoxic Respiratory Failure s/p Extubation Pneumonia Septic Shock DM with Acidosis ? DKA,?Lactic acidosis Acute on Chronic Renal Failure Paroxysmal Atrial Fibrillation with RVR HTN COPD Ischemic changes left first and 2nd toes GI bleeding s/p transfuison S/P EGD and Colonoscopy BGM QACHS and 3 a.m. No Juice with meals, BGM at 3 a.m. also as ordered. Discussed with RN Nutrition reevaluation to decrease carbs in diet. Levemir 7 units daily, Increase Novolog coverage Chart reviewed Start D10W at 42 ml/hr whenever tube feeding is on hold or discontinued until food intake is adequate. As pt was admitted with acidosis possibly DKA, need to continue to administer long acting Insulin Will f/u
--- NOTE | 2017-10-25 12:37 | PN ---
Progress Note, Physician Chief Complaint: resp failure History of Present Illness: lethargic today, appears weak. eyes open--doesn't communicate clearly ex cigs - Current Medication List Current Medications: Active Medications Acetaminophen (Tylenol -) 650 mg PO Q6H PRN PRN Reason: FEVER Acetylcysteine (Mucomyst 20 Oral / Inh Use Only*) 200 mg NEB RQID [facility] Last Admin: 10/25/17 11:26 Dose: 200 mg Albuterol Sulfate (Ventolin 0.083% Nebulizer Soln -) 1 amp NEB RQID [facility] Last Admin: 10/25/17 11:27 Dose: 1 amp Amino Acids (Prosource No Carb Liquid Pkt) 30 ml NGT BID@0800,1730 [facility] Chlorhexidine Gluconate (Hibiclens For Decolonization -) 1 applic TP HS [facility] Darbepoetin Trell (Aranesp -) 25 mcg SQ Q7D@1000 [facility] Diltiazem HCl (Cardizem Cd -) 120 mg PO BID [facility] Insulin Aspart (Novolog Vial Sliding Scale -) 1 vial SQ TIDAC [facility] PRN Reason: Protocol Insulin Aspart (Novolog) 10 units SQ ONCE ONE PRN Reason: Protocol Stop: 10/25/17 12:03 Last Admin: 10/25/17 12:06 Dose: 10 units Insulin Detemir (Levemir Vial) 7 units SQ HS [facility] Metoprolol Tartrate (Lopressor Injection -) 5 mg IVPUSH Q4H PRN PRN Reason: TACHYCARDIA Nystatin (Nystatin Oral Suspension -) 500,000 units PO Q6HPO [facility] Last Admin: 10/25/17 12:06 Dose: Not Given Pantoprazole Sodium (Protonix -) 40 mg PO DAILY [facility] Tamsulosin HCl (Flomax -) 0.4 mg PO DAILY@0830 [facility] Torsemide (Demadex -) 20 mg PO DAILY [facility] - Objective Vital Signs: Vital Signs Temperature 98.5 F 10/25/17 10:15 Pulse Rate 94 H 10/25/17 10:15 Respiratory Rate 20 10/25/17 10:15 Blood Pressure 125/58 10/25/17 10:15 O2 Sat by Pulse Oximetry (%) 100 10/25/17 08:52 Constitutional: Yes: No Distress, Calm Eyes: No: Sclera Icterus HENT: No: Nasal Congestion Cardiovascular: Yes: Regular Rate and Rhythm, Murmur (3/6 EMMA rusb), S1, S2, Other (PMI non diplaced). No: Gallop Respiratory: Yes: CTA Bilaterally (not taking deep breaths for exam). No: Accessory Muscle Use, Rales, Wheezes Gastrointestinal: Yes: Normal Bowel Sounds, Soft. No: Tenderness Musculoskeletal: Yes: Other (No kyphosis) Extremities: No: Cold Edema: No Integumentary: No: Jaundice Neurological: Yes: Alert. No: Seizure Psychiatric: No: Agitated Labs: CBC, BMP 10/25/17 05:20 10/25/17 11:34 INR, PTT INR 1.16 (0.82-1.09) H 10/15/17 05:46 Assessment/Plan tele: SR, run of WCT likely NSVT EKG 10/03: sinus tach with atrial run. non-sp t wave ab. no ischemic changes. 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 diverticulosis, gastritis, esophagitis. cxr: still with congestive changes, with some infiltrative findings at right base with fluid. cxr 10/05: RLL consolidation and pleural fluid. cxr 10/08 improved aeration at right base. Echo 06/2017: mod lvh. nl lv fn. nl rv size/fn. 1+ lae. mod-sev mac with mod ms. 1+ mr. nl rvsp. 1+ ao dilation A/P 76 yo with pmhx of htn, hl, pad, afib (not on AC due to GIB), cva (no residual deficits), copd, dm, mgus, esthesioneuroblastoma treated with radiation therapy , chronic anemia s/p recent GIB admitted with dka, sepsis, resp failure. Hospital course now complicated by episode of afib with rvr afib - not previously a candidate for AC b/c of prior hx of GIB. remains anemic with melena here as well. - s/p IV amio. started po dilt 10/05. now back in sr. hr controlled. - off Amio, remains in sinus. BPs soft but tolerating diltiazem hi dose (90mg q6H)--continue same for now - change to cardizem CD regimen once bp's clearly out of the ngo as far as hypotension - hgb drifted down once ASA resumed--now d/c'd. not a candidate for AC at this time as risks of serious bleeding are > benefits - remains in SR, bp thus far tolerating diltiazem at present dose - 10/19: episode of bradycardia with intermittent dropped qrs complexes and runs of ventricular escape. Will decrease diltiazem to 60 mg q6h. Observe for recurrence of RVR. - remains rate controlled/sr on dilt, no bradycardia episodes Vtach: - long run on tele of nonsustained WCT, HR around 100-110 bpm (suspect slow VT) - K/Mag both aggressively repleted--routine mgmt - rpt echo for LVEF (normal in 07/15) - cont tele - if VT recurrence, of EF depressed on echo, will start low dose BB (and decr CCB dose) mitral stenosis: - aggressive control of afib to prevent tachycardia CHF as doing - defer amio for now, may have to reconsider if recurrent rapid AF despite sepsis/PNA complete resolution PNA with septic shock, resp failure, resolving - off phenylephrine as of AM 10/11, hemodynamically stable currently - extubated 10/12 anemia, GI bleeding: - ongoing UGIB here with stool guaiac + (iker hgb 6.1) - s/p PRBCs, last on 10/18 - counts stable - no cardiac contraindications to planned egd/foc. - s/p endoscopy 10/21 --> avm cauterized. see above htn - home meds changed to diltiazem here for PAF rate control - bp stable cva/pad - con't statin. - per pmd, previously not a candidate for asa due to recent gib and anemia. hgb drifting down on asa here, held again mild asc ao dilation - cont bp control SHANTA - renal following, no sig improvement --> initiated HD 10/07. - currently have been monitoring off HD. started on torsemide per renal
--- NOTE | 2017-10-25 13:10 | PN ---
Physical Exam: SUBJECTIVE: Patient seen and examined in ICU. No acute events overnight. Eating well during examinations. Sugars labile. OBJECTIVE: Vital Signs Period Temp Pulse Resp BP Sys/Sy Pulse Ox Last 24 Hr 98.5 F 90-103 20-29 108-125/40-90 100-100 GENERAL: The patient is awake, alert, and fully oriented, in no acute distress. HEAD: Normal with no signs of trauma. EYES: PERRL, extraocular movements intact, sclera anicteric, conjunctiva clear. LUNGS: Breath sounds equal, clear to auscultation bilaterally, no wheezes, no crackles, no accessory muscle use. HEART: Regular rate and rhythm, S1, S2 without murmur, rub or gallop. ABDOMEN: Soft, nontender, nondistended, normoactive bowel sounds, no guarding, no rebound, no hepatosplenomegaly, no masses. EXTREMITIES: 1+ pulses in right foot, no palpable pulse in left foot, discoloration in left toes Laboratory Results - last 24 hr 10/24/17 10/24/17 10/24/17 12:04 12:35 16:35 WBC RBC Hgb Hct MCV MCH MCHC RDW Plt Count MPV Neutrophils % Lymphocytes % Monocytes % Eosinophils % Basophils % Sodium Potassium Chloride Carbon Dioxide Anion Gap BUN Creatinine Creat Clearance w eGFR POC Glucometer > [phone] Random Glucose 446 H* D Calcium Phosphorus Magnesium Total Bilirubin AST ALT Alkaline Phosphatase Total Protein Albumin 10/24/17 10/25/17 10/25/17 23:21 05:20 05:20 WBC 9.0 RBC 2.69 L Hgb 8.6 L Hct 24.7 L MCV 91.8 MCH 31.8 MCHC 34.6 RDW 15.0 Plt Count 407 MPV 8.1 Neutrophils % 83.8 H Lymphocytes % 6.2 L Monocytes % 8.3 Eosinophils % 0.9 Basophils % 0.8 Sodium 141 Potassium 4.2 Chloride 98 Carbon Dioxide 34 H Anion Gap 9 BUN 79 H Creatinine 4.2 H Creat Clearance w eGFR 13.79 POC Glucometer [phone] Random Glucose 132 H D Calcium 8.2 L Phosphorus 5.4 H Magnesium 2.3 D Total Bilirubin 0.2 AST 18 D ALT < 6 L Alkaline Phosphatase 107 Total Protein 5.8 L Albumin 1.6 L 10/25/17 10/25/17 05:51 11:34 WBC RBC Hgb Hct MCV MCH MCHC RDW Plt Count MPV Neutrophils % Lymphocytes % Monocytes % Eosinophils % Basophils % Sodium Potassium Chloride Carbon Dioxide Anion Gap BUN Creatinine Creat Clearance w eGFR POC Glucometer 160.70313 Random Glucose 440 H* D Calcium Phosphorus Magnesium Total Bilirubin AST ALT Alkaline Phosphatase Total Protein Albumin Active Medications Generic Name Dose Route Start Last Admin Trade Name Freq PRN Reason Stop Dose Admin Acetaminophen 650 mg 10/25/17 11:23 Tylenol - PO Q6H PRN FEVER Acetylcysteine 200 mg 10/25/17 12:00 10/25/17 11:26 Mucomyst 20 Oral / Inh Use Only* NEB 200 mg RQID [facility] Administration Albuterol Sulfate 1 amp 10/25/17 12:00 10/25/17 11:27 Ventolin 0.083% Nebulizer Soln - NEB 1 amp RQID [facility] Administration Amino Acids 30 ml 10/25/17 17:30 Prosource No Carb Liquid Pkt NGT BID@0800,1730 [facility] Chlorhexidine Gluconate 1 applic 10/25/17 22:00 Hibiclens For Decolonization - TP HS [facility] Darbepoetin Trell 25 mcg 10/29/17 10:00 Aranesp - SQ Q7D@1000 [facility] Diltiazem HCl 120 mg 10/25/17 22:00 Cardizem Cd - PO BID [facility] Insulin Aspart 0 units 10/25/17 22:00 Novolog SQ HS [facility] Protocol Insulin Aspart 1 vial 10/25/17 16:30 Novolog Vial Sliding Scale - SQ TIDAC [facility] Protocol Insulin Detemir 7 units 10/25/17 22:00 Levemir Vial SQ HS [facility] Metoprolol Tartrate 5 mg 10/25/17 11:23 Lopressor Injection - IVPUSH Q4H PRN TACHYCARDIA Nystatin 500,000 units 10/25/17 12:00 10/25/17 12:06 Nystatin Oral Suspension - PO Not Given Q6HPO [facility] Pantoprazole Sodium 40 mg 10/26/17 10:00 Protonix - PO DAILY [facility] Tamsulosin HCl 0.4 mg 10/26/17 08:30 Flomax - PO DAILY@0830 [facility] Torsemide 20 mg 10/26/17 10:00 Demadex - PO DAILY [facility] ASSESSMENT/PLAN: 76M with history of COPD, IDDM, pneumonia with history of prior intubation here with pneumonia and dka. DKA resolved. Intubated, then extubated. Stable respiratory status on NC. Respiratory #Acute Hypoxic Respiratory Failure -Likely secondary to Pneumonia -ABx per ID -Extubated, stable on NC #COPD -Continue Nebulizers -Continue Ventilation #Atelectasis 2/2 trendelenburg positioning -Oxygen -Chest PT -Repositioning -Resolved Infectious Disease #Septic Shock secondary to Pneumonia -ABx per ID. -Blood cultures negative -Sputum cultures staph, hector sensitive -Legionella negative -HOB elevated -Aspiration precautions -Off pressors -Resolved GI #Melena -Hgb 8.6 today, no episodes of bleeding over weekend -Scope showed non-bleeding angiectasis that was cauterized -Protonix 40mg daily -Daily CBCs Nephrology #Acute on Chronic Renal Failure -Likely ATN secondary from Septic hock -Urine output 1660 yesterday -BUN/Cr stable #AG and Non-AG Metabolic acidosis -Acidosis resolved Cardiovascular #Paroxysmal Atrial Fibrillation -Continue Cardizem -Metoprolol 5mg IVP Q4H PRN for Tachycardia #HTN -Patient not hypertensive -Will continue to monitor BP #CAD/PVD -Ischemia in left toe likely secondary to pressors, hypotension, and prior surgery in the left foot. -Left foot is warm, pink with discoloration around 1st/2nd toes -Palpable pulses in both feet today -Vascular aware, following -Will optimize medically -Not candidate for asa, heparin due to hgb drop, h/o gi bleed #Anemia -Hgb stable today -CBCs stable, next will be 6am tomorrow -Transfuse <7 or per GI reqs Endocrine #DKA-Resolved -Continue ISS -Continue BGM -Continue Levemir F/E/N -On no fluids -Electrolytes wnl -Taking PO, puree diet with nectar liquids Prophylaxis -Anticoagulation held due to GI bleed -Protonix 40mg IV BID daily Disposition -Patient is DNR/DNI -Transfer to tele Visit type - Emergency Visit Emergency Visit: Yes ED Registration Date: 10/03/17 Care time: The patient presented to the Emergency Department on the above date and was hospitalized for further evaluation of their emergent condition. - New Patient This patient is new to me today: No - Critical Care Critical Care patient: Yes Total Critical Care Time (in minutes): 35 Critical Care Statement: The care of this patient involved high complexity decision making to prevent further life threatening deterioration of the patient 's condition and/or to evaluate & treat vital organ system(s) failure or risk of failure.
--- NOTE | 2017-10-25 14:03 | PN ---
Progress Note, Physician History of Present Illness: improving still with a bit confusion tolerating po good urine output - Current Medication List Current Medications: Active Medications Acetaminophen (Tylenol -) 650 mg PO Q6H PRN PRN Reason: FEVER Acetylcysteine (Mucomyst 20 Oral / Inh Use Only*) [address] [facility] Last Admin: 10/25/17 11:26 Dose: 200 mg Albuterol Sulfate (Ventolin 0.083% Nebulizer Soln -) [address] [facility] Last Admin: 10/25/17 11:27 Dose: 1 amp Amino Acids (Prosource No Carb Liquid Pkt) 30 ml NGT BID@0800,1730 [facility] Chlorhexidine Gluconate (Hibiclens For Decolonization -) [address] [facility] Darbepoetin Trell (Aranesp -) 25 mcg SQ Q7D@1000 [facility] Diltiazem HCl (Cardizem Cd -) [address] [facility] Insulin Aspart (Novolog Vial Sliding Scale -) [address] [facility] PRN Reason: Protocol Insulin Aspart (Novolog Vial Sliding Scale -) [address] [facility] PRN Reason: Protocol Insulin Detemir (Levemir Vial) [address] [facility] Metoprolol Tartrate (Lopressor Injection -) 5 mg IVPUSH Q4H PRN PRN Reason: TACHYCARDIA Nystatin (Nystatin Oral Suspension -) 500,[address] [facility] Last Admin: 10/25/17 12:06 Dose: Not Given Pantoprazole Sodium (Protonix -) [address] [facility] Tamsulosin HCl (Flomax -) 0.4 mg PO DAILY@0830 [facility] Torsemide (Demadex -) [address] [facility] - Objective Vital Signs: Vital Signs Temperature 98.5 F 10/25/17 10:15 Pulse Rate 94 H 10/25/17 10:15 Respiratory Rate 20 10/25/17 10:15 Blood Pressure 125/58 10/25/17 10:15 O2 Sat by Pulse Oximetry (%) 100 10/25/17 08:52 Constitutional: Yes: No Distress, Calm Cardiovascular: Yes: S1, S2 Respiratory: Yes: On Nasal O2, Rhonchi, Other Gastrointestinal: Yes: Normal Bowel Sounds, Soft Musculoskeletal: Yes: WNL Extremities: Yes: WNL Neurological: Yes: Alert, Confusion Psychiatric: Yes: Alert Labs: CBC, BMP 04/30/18 05:20 10/25/17 11:34 INR, PTT INR 1.16 (0.82-1.09) H 10/15/17 05:46 Assessment/Plan 76 year old male with a significant past medical history of COPD, GI bleed, diverticulosis, HLD, CVA, intussusception, umbilical hernia, DM, HTN, sinus cancer with excision and polypectomy Acute Hypoxic Respiratory Failure Pneumonia Septic Shock Acute on Chronic Renal Failure Lactic Acidosis Diabetic Ketoacidosis improving HTN DM COPD gluteal ulcer discoloration of the toes janene plan continue to monitor ff of abx close watch nutrition await for repeat blood cx rest as per icu cc time 40 min
--- NOTE | 2017-10-25 15:34 | PN ---
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 Pt does cough intermittently per nursing. Continue pureed diet/honey thick liquids. No nectar thick liquids. MBS?
[2017-10-25] MEDS ORDERED: INSULIN SLIDING SCALE (NOVOLOG) 1 VIAL SQ SCH (16:30)
--- NOTE | 2017-10-25 17:43 | PN ---
Progress Note (short form) - Note Progress Note: Renal follow up for HSANTA Pt seen and examined in the ICU awake and alert no acute complaints making urine via foely no sob, chest pain, N/V/D Vital Signs Temperature 98.4 F 10/25/17 14:53 Pulse Rate 103 H 10/25/17 14:53 Respiratory Rate 25 H 10/25/17 14:53 Blood Pressure 104/49 10/25/17 14:53 O2 Sat by Pulse Oximetry (%) 100 10/25/17 08:52 Intake & Output 10/22/17 10/23/17 10/24/17 10/25/17 23:59 23:59 23:59 23:59 Intake Total 480 960 340 200 Output Total 3200 1500 2000 1100 Balance -6521 -849 -2300 -900 Weight 51.936 kg 51.511 kg 51.057 kg 48.943 kg NAD RRR, No M/R Dec BS at lung bases soft NT/ND No LE edema, clubbing or cyanosis heels in dressing CBC, BMP 10/25/17 05:20 10/25/17 11:34 Laboratory Tests 10/25/17 05:20 Potassium 4.2 Carbon Dioxide 34 H BUN 79 H Creatinine 4.2 H Current Medications Acetaminophen (Tylenol -) 650 mg PO Q6H PRN PRN Reason: FEVER Acetylcysteine (Mucomyst 20 Oral / Inh Use Only*) 200 mg NEB RQID [facility] Last Admin: 10/25/17 16:29 Dose: 200 mg Albuterol Sulfate (Ventolin 0.083% Nebulizer Soln -) 1 amp NEB RQID [facility] Last Admin: 10/25/17 16:29 Dose: 1 amp Amino Acids (Prosource No Carb Liquid Pkt) 30 ml NGT BID@0800,1730 [facility] Chlorhexidine Gluconate (Hibiclens For Decolonization -) 1 applic TP HS [facility] Darbepoetin Trell (Aranesp -) 25 mcg SQ Q7D@1000 [facility] Diltiazem HCl (Cardizem Cd -) 120 mg PO BID [facility] Insulin Aspart (Novolog Vial Sliding Scale -) 1 vial SQ HS [facility] PRN Reason: Protocol Insulin Aspart (Novolog Vial Sliding Scale -) 1 vial SQ TIDAC [facility] PRN Reason: Protocol Insulin Detemir (Levemir Vial) 7 units SQ HS [facility] Metoprolol Tartrate (Lopressor Injection -) 5 mg IVPUSH Q4H PRN PRN Reason: TACHYCARDIA Nystatin (Nystatin Oral Suspension -) 500,000 units PO Q6HPO [facility] Last Admin: 10/25/17 12:06 Dose: Not Given Pantoprazole Sodium (Protonix -) 40 mg PO DAILY [facility] Tamsulosin HCl (Flomax -) 0.4 mg PO DAILY@0830 [facility] Torsemide (Demadex -) 20 mg PO DAILY [facility] 76 year old male with a significant past medical history of COPD, GI bleed, diverticulosis, HLD, CVA, intussusception, umbilical hernia, DM, HTN, sinus cancer with excision and polypectomy who presents to the ED, accompanied by , s/p high blood sugar levels earlier today. #SHANTA on CKD likely due to ATN in setting of sepsis that required [employer]MER #Sepsis/PNA #Metabolic acidosis (now resolved) #Anemia #Hx of Hypertension #DM on Insulin #Hyperphosphatemia in setting of renal injury pt is non-oliguric and evolemic BUN/Cr slightly higher today, will decrease Torsemide to 20mg Daily no indication for [employer] TR[employer]MER at this time Continue flomax, trial of void supplemental O2 as needed Pulmonary follow up Trend H/H, transfuse for Hgb < 7 Trend Phos levels Tomás Al DO
[2017-10-25] MEDS: CHLORHEXIDINE GLUCONATE 4% CLEANSER FOR DECOLONIZATION TP SCH (21:46)
[2017-10-25] MEDS ORDERED: INSULIN (LEVEMIR) 100 UNITS/ML UNITS SQ SCH (22:00)
[2017-10-26] MEDS: NYSTATIN 500,000 UNITS/5 ML SUSPENSION PO SCH ×4 (00:09→17:35)
[2017-10-26] MEDS: INSULIN SLIDING SCALE (NOVOLOG) 1 VIAL SQ SCH ×5 (06:03→23:13)
[2017-10-26 06:20] LABS: BASO % 0.4 % (0-2.0); EOS % 0.4 % (0-4.5); HEMATOCRIT 21.7 % (35.4-49); HEMOGLOBIN 7.3 GM/dL (11.7-16.9); LYMPH % 2.5 % (8-40); MCH 31.1 pg (25.7-33.7); MCHC 33.7 g/dl (32.0-35.9); MEAN CELL VOLUME 92.2 fl (80-96); MEAN PLT VOLUME 8.3 fl (7.5-11.1); MONO % 5.5 % (3.8-10.2); NEUT % 91.2 % (42.8-82.8); PLATELET COUNT 438 K/MM3 (134-434); RBC 2.35 M/mm3 (4.00-5.60); WHITE BLOOD COUNT 16.2 K/mm3 (4.0-10.0)
[2017-10-26 06:55] LABS: ALBUMIN 1.5 g/dl (3.4-5.0); CHLORIDE 99 mmol/L (98-107); POTASSIUM 4.2 mmol/L (3.5-5.1); SODIUM 139 mmol/L (136-145)
[2017-10-26 06:58] LABS: ALK PHOS 104 U/L (45-117); ANION GAP 9 (8-16); BILIRUBIN,TOTAL 0.2 mg/dL (0.2-1.0); BLOOD UREA NITROGEN 90 mg/dL (7-18); CO2 31 mmol/L (21-32); CREATININE 4.5 mg/dL (0.7-1.3); GLUCOSE,RANDOM 238 mg/dL (74-106); MAGNESIUM 2.2 mg/dL (1.8-2.4); PHOSPHOROUS 5.1 mg/dL (2.5-4.9); SGOT/AST 13 U/L (15-37); SGPT/ALT < 6 U/L (12-78); TOT PROT 5.7 g/dl (6.4-8.2)
[2017-10-26] MEDS: ALBUTEROL SO4 0.083% IH SOL 2.5 MG/3 ML VIAL.NEB. NEB SCH ×4 (08:06→20:23)
[2017-10-26] MEDS: ACETYLCYSTEINE 20% 200MG/ML 4 ML VIAL *FOR ORAL / INH USE ONLY NEB SCH ×4 (08:06→20:22)
[2017-10-26] MEDS: TAMSULOSIN HCL 0.4 MG CAP.ER.24H (FP) PO SCH (08:40)
[2017-10-26] MEDS: AMINO ACIDS/PROTEIN HYDROLYS 30 ML LIQUID.PKT NGT SCH ×2 (08:40→17:36)
[2017-10-26] MEDS: PANTOPRAZOLE 40 MG TABLET (FP) PO SCH (09:16)
[2017-10-26] MEDS ORDERED: TORSEMIDE 20 MG TABLET (FP) PO SCH ×2 (10:00)
[2017-10-26] MEDS: ACETAMINOPHEN 325 MG TABLET (FP) PO PRN (10:03)
--- NOTE | 2017-10-26 12:19 | PN ---
Progress Note (short form) - Note Progress Note: No complaints Fluctuating blood sugar Still getting Juice with meals Vital Signs Period Temp Pulse Resp BP Sys/Sy Pulse Ox Last 24 Hr 98.4 F-99.4 F 94-113 20-29 92-116/39-62 100-100 PE: awake, alert Neck: supple Lungs: CTA CVS: S1S2 Abd: Benign Ext: No edema, dusky coloration left 1st and 2nd toes, black discoloration of left heel Neuro: Awake, alert CMP Sodium 139 mmol/L (136-145) 10/26/17 05:15 Potassium 4.2 mmol/L (3.5-5.1) 10/26/17 05:15 Chloride 99 mmol/L (98-107) 10/26/17 05:15 Carbon Dioxide 31 mmol/L (21-32) 10/26/17 05:15 Anion Gap 9 (8-16) 10/26/17 05:15 BUN 90 mg/dL (7-18) H 10/26/17 05:15 Creatinine 4.5 mg/dL (0.7-1.3) H 10/26/17 05:15 Creat Clearance w eGFR 12.74 (>60) 10/26/17 05:15 POC Glucometer [phone] UNITS (80-120) 10/26/17 11:42 Random Glucose 238 mg/dL (74-106) H D 10/26/17 05:15 Hemoglobin A1c % 8.5 % (4.8-6.0) H D 10/04/17 06:00 Lactic Acid 2.0 mmol/L (0.0-2.0) 10/03/17 12:00 Calcium 8.0 mg/dL (8.5-10.1) L 10/26/17 05:15 Phosphorus 5.1 mg/dL (2.5-4.9) H 10/26/17 05:15 Magnesium 2.2 mg/dL (1.8-2.4) 10/26/17 05:15 Iron 22 ug/dL (38-169) L 10/06/17 05:50 Ferritin 202.816 ng/ml (16.4-293.9) 10/06/17 05:50 Total Bilirubin 0.2 mg/dL (0.2-1.0) 10/26/17 05:15 AST 13 U/L (15-37) L D 10/26/17 05:15 ALT < 6 U/L (12-78) L 10/26/17 05:15 Alkaline Phosphatase 104 U/L (45-117) 10/26/17 05:15 Total Protein 5.7 g/dl (6.4-8.2) L 10/26/17 05:15 Albumin 1.5 g/dl (3.4-5.0) L 10/26/17 05:15 Vitamin B12 1602 pg/ml (180-914) H 10/06/17 05:50 Serum Folate 23 ng/ml (3.1-17.5) H 10/06/17 05:50 Current Medications Generic Name Dose Route Start Last Admin Trade Name Freq PRN Reason Stop Dose Admin Acetaminophen 650 mg 10/26/17 09:08 10/26/17 10:03 Tylenol - PO 650 mg Q6H PRN Administration PAIN OR FEVER Acetylcysteine 200 mg 10/25/17 12:00 10/26/17 11:38 Mucomyst 20 Oral / Inh Use Only* NEB 200 mg RQID [facility] Administration Albuterol Sulfate 1 amp 10/25/17 12:00 10/26/17 11:38 Ventolin 0.083% Nebulizer Soln - NEB 1 amp RQID [facility] Administration Amino Acids 30 ml 10/25/17 17:30 10/26/17 08:40 Prosource No Carb Liquid Pkt NGT 30 ml BID@0800,1730 [facility] Administration Chlorhexidine Gluconate 1 applic 10/25/17 22:00 10/25/17 21:46 Hibiclens For Decolonization - TP 1 applic HS [facility] Administration Darbepoetin Trell 25 mcg 10/29/17 10:00 Aranesp - SQ Q7D@1000 [facility] Diltiazem HCl 120 mg 10/25/17 22:00 10/26/17 09:18 Cardizem Cd - PO 120 mg BID [facility] Administration Insulin Aspart 1 vial 10/25/17 22:00 10/25/17 22:03 Novolog Vial Sliding Scale - SQ 3 units HS [facility] Administration Protocol Insulin Aspart 1 vial 10/25/17 16:30 10/26/17 12:04 Novolog Vial Sliding Scale - SQ 10 units TIDAC [facility] Administration Protocol Insulin Detemir 10 units 10/26/17 22:00 Levemir Vial SQ HS [facility] Metoprolol Tartrate 5 mg 10/25/17 11:23 Lopressor Injection - IVPUSH Q4H PRN TACHYCARDIA Nystatin 500,000 units 10/25/17 12:00 10/26/17 11:46 Nystatin Oral Suspension - PO 500,000 units Q6HPO [facility] Administration Pantoprazole Sodium 40 mg 10/26/17 10:00 10/26/17 09:16 Protonix - PO 40 mg DAILY [facility] Administration Tamsulosin HCl 0.4 mg 10/26/17 08:30 10/26/17 08:40 Flomax - PO 0.4 mg DAILY@0830 [facility] Administration AP; Acute Hypoxic Respiratory Failure s/p Extubation Pneumonia Septic Shock DM with Acidosis ? DKA,?Lactic acidosis Acute on Chronic Renal Failure Paroxysmal Atrial Fibrillation with RVR HTN COPD Ischemic changes left first and 2nd toes GI bleeding s/p transfuison S/P EGD and Colonoscopy BGM QACHS and 3 a.m. No Juice with meals, BGM at 3 a.m. also as ordered. Discussed with RN Nutrition reevaluation to decrease carbs in diet. Increase Levemir 10 units daily, Increase Novolog coverage Chart reviewed Start D10W at 42 ml/hr whenever tube feeding is on hold or discontinued until food intake is adequate. As pt was admitted with acidosis possibly DKA, need to continue to administer long acting Insulin Will f/u
--- NOTE | 2017-10-26 12:21 | PN ---
Progress Note (short form) - Note Progress Note: The patient seems to have improved with more interaction with staff and appetite increasing. Renal lab a little higher and Hb lower at 7.3GM. Will follow. Gangrene demarction clearer on the 3 toes left foot.BGM's still uncontrolled but Dr. Everett here today to adjust Rx. I told patient he cannot refuse insulin when discharged and I will ask the Nurses to teach patient administration. Still some cough with liquids. On Exam: Vital Signs Temp 99.4 F 10/26/17 10:00 Pulse 104 H 10/26/17 10:00 Resp 24 10/26/17 10:00 BP 103/46 10/26/17 10:00 Pulse Ox 100 10/26/17 10:00 Intake & Output 10/25/17 10/26/17 10/26/17 23:59 11:59 23:59 Intake Total 400 150 Output Total 800 Balance -400 150 Weight 105 lb 12.8 oz Intake: Oral 400 150 Output: Urine 800 Lang[place] 800 Other: Voiding Method Incontinent Incontinent # Unmeasured Voids [place] 1 1 Weight Measurement Method Built in [facility] Alert anicteric Chest: no wheezing or rakes Cor: Regular Ext:Gangrenous changes toes left foot Muscle atrophy both legs Abnormal Lab Results 10/26/17 10/26/17 05:15 05:15 WBC 16.2 H D RBC 2.35 L Hgb 7.3 L D Hct 21.7 L Plt Count 438 H Neutrophils % 91.2 H Lymphocytes % 2.5 L D BUN 90 H Creatinine 4.5 H Random Glucose 238 H D Calcium 8.0 L Phosphorus 5.1 H AST 13 L D ALT < 6 L Total Protein 5.7 L Albumin 1.5 L IMP: Sepsis with Pnenmonia Resolved Uncontrolled DM Diabetic Neuropathy Acute on Chronic Renal Failure PVD and gangrenous changes toes left foot Acute Blood Loss Anemia GI Bleed COPD PLAN: F/U CBC Telemetry Modified barium Swallow F/U Vascular MD DM Control
--- NOTE | 2017-10-26 12:23 | PN ---
Teaching Attending Note Name of Resident: Curt Caputo ATTENDING PHYSICIAN STATEMENT I saw and evaluated the patient. I reviewed the resident's note and discussed the case with the resident. I agree with the resident's findings and plan as documented. SUBJECTIVE: Patient seen and examined in the ICU. Noted rise in WBC and low grade temps. No overnight events. Denies shortness of breath or chest pain. Reports discomfort at the left foot. OBJECTIVE: Intake & Output 10/23/17 10/24/17 10/25/17 10/26/17 23:59 23:59 23:59 23:59 Intake Total 960 340 600 150 Output Total 1500 2000 1100 Balance -540 -1660 -500 150 Weight 113 lb 9 oz 112 lb 9 oz 107 lb 14.4 oz 105 lb 12.8 oz Last Vital Signs Temp Pulse Resp BP Pulse Ox 99.4 F 104 H 24 103/46 100 10/26/17 10:00 10/26/17 10:00 10/26/17 10:00 10/26/17 10:00 10/26/17 10:00 Active Medications Acetaminophen (Tylenol -) 650 mg PO Q6H PRN PRN Reason: PAIN OR FEVER Last Admin: 10/26/17 10:03 Dose: 650 mg Acetylcysteine (Mucomyst 20 Oral / Inh Use Only*) 200 mg NEB RQID [facility] Last Admin: 10/26/17 11:38 Dose: 200 mg Albuterol Sulfate (Ventolin 0.083% Nebulizer Soln -) 1 amp NEB RQID [facility] Last Admin: 10/26/17 11:38 Dose: 1 amp Amino Acids (Prosource No Carb Liquid Pkt) 30 ml NGT BID@0800,1730 [facility] Last Admin: 10/26/17 08:40 Dose: 30 ml Chlorhexidine Gluconate (Hibiclens For Decolonization -) 1 applic TP [facility] Last Admin: 10/25/17 21:46 Dose: 1 applic Darbepoetin Trell (Aranesp -) 25 mcg SQ Q7D@1000 [facility] Diltiazem HCl (Cardizem Cd -) 120 mg PO BID [facility] Last Admin: 10/26/17 09:18 Dose: 120 mg Insulin Aspart (Novolog Vial Sliding Scale -) 1 vial SQ [facility] PRN Reason: Protocol Last Admin: 10/25/17 22:03 Dose: 3 units Insulin Aspart (Novolog Vial Sliding Scale -) 1 vial SQ TIDAC [facility] PRN Reason: Protocol Insulin Detemir (Levemir Vial) 10 units SQ HS [facility] Metoprolol Tartrate (Lopressor Injection -) 5 mg IVPUSH Q4H PRN PRN Reason: TACHYCARDIA Nystatin (Nystatin Oral Suspension -) 500,000 units PO Q6HPO [facility] Last Admin: 10/26/17 11:46 Dose: 500,000 units Pantoprazole Sodium (Protonix -) 40 mg PO DAILY [facility] Last Admin: 10/26/17 09:16 Dose: 40 mg Tamsulosin HCl (Flomax -) 0.4 mg PO DAILY@0830 [facility] Last Admin: 10/26/17 08:40 Dose: 0.4 mg Gen: NAD at rest Heart: RRR Lung: decreased breath sounds at the bases Abd: soft, nontender Ext: no edema, ischemic left toes Laboratory Results - last 24 hr 10/25/17 10/25/17 10/25/17 11:18 11:21 13:42 WBC RBC Hgb Hct MCV MCH MCHC RDW Plt Count MPV Neutrophils % Lymphocytes % Monocytes % Eosinophils % Basophils % Sodium Potassium Chloride Carbon Dioxide Anion Gap BUN Creatinine Creat Clearance w eGFR POC Glucometer > 400 > [phone] Random Glucose Calcium Phosphorus Magnesium Total Bilirubin AST ALT Alkaline Phosphatase Total Protein Albumin 10/25/17 10/26/17 10/26/17 17:41 05:15 05:15 WBC 16.2 H D RBC 2.35 L Hgb 7.3 L D Hct 21.7 L MCV 92.2 MCH 31.1 MCHC 33.7 RDW 15.0 Plt Count 438 H MPV 8.3 Neutrophils % 91.2 H Lymphocytes % 2.5 L D Monocytes % 5.5 Eosinophils % 0.4 Basophils % 0.4 Sodium 139 Potassium 4.2 Chloride 99 Carbon Dioxide 31 Anion Gap 9 BUN 90 H Creatinine 4.5 H Creat Clearance w eGFR 12.74 POC Glucometer [phone] Random Glucose 238 H D Calcium 8.0 L Phosphorus 5.1 H Magnesium 2.2 Total Bilirubin 0.2 AST 13 L D ALT < 6 L Alkaline Phosphatase 104 Total Protein 5.7 L Albumin 1.5 L 10/26/17 11:42 WBC RBC Hgb Hct MCV MCH MCHC RDW Plt Count MPV Neutrophils % Lymphocytes % Monocytes % Eosinophils % Basophils % Sodium Potassium Chloride Carbon Dioxide Anion Gap BUN Creatinine Creat Clearance w eGFR POC Glucometer [phone] Random Glucose Calcium Phosphorus Magnesium Total Bilirubin AST ALT Alkaline Phosphatase Total Protein Albumin ASSESSMENT AND PLAN: Acute Hypoxic Respiratory Failure improving Pneumonia treated Septic Shock resolving Acute on Chronic Renal Failure requiring HD improving Lactic Acidosis resolved Diabetic Ketoacidosis resolved Paroxysmal Atrial Fibrillation with RVR GI bleed HTN DM COPD - Vascular follow up - monitor H/H - monitoring off antibiotics - HD per renal - monitor urine output, creatinine - monitor I/Os - glucose control - rate control - holding anticoagulation due to GI bleed - taper FiO2 to keep SpO2 >90% - PO as tolerated - aspiration precautions - rehab/PT - DVT/GI prophylaxis - Cardiac telemetry monitoring Dr Acosta Critical care time spent in reviewing chart, evaluating patient and formulating plan - 36 minutes.
--- NOTE | 2017-10-26 13:21 | PN ---
Progress Note (short form) - Note Progress Note: Chief Complaint: resp failure History of Present Illness: wbc rise. torsemide stopped today, last dose (20 mg) this am. hgb trending down. echo report reviewed. no discomfort, sob, cp, palps, dizziness. + weakness. ex cigs Current Medications Acetaminophen (Tylenol -) 650 mg PO Q6H PRN PRN Reason: PAIN OR FEVER Last Admin: 10/26/17 10:03 Dose: 650 mg Acetylcysteine (Mucomyst 20 Oral / Inh Use Only*) 200 mg NEB RQID [facility] Last Admin: 10/26/17 11:38 Dose: 200 mg Albuterol Sulfate (Ventolin 0.083% Nebulizer Soln -) 1 amp NEB RQID [facility] Last Admin: 10/26/17 11:38 Dose: 1 amp Amino Acids (Prosource No Carb Liquid Pkt) 30 ml NGT BID@0800,1730 [facility] Last Admin: 10/26/17 08:40 Dose: 30 ml Chlorhexidine Gluconate (Hibiclens For Decolonization -) 1 applic TP [facility] Last Admin: 10/25/17 21:46 Dose: 1 applic Darbepoetin Trell (Aranesp -) 25 mcg SQ Q7D@1000 [facility] Diltiazem HCl (Cardizem Cd -) 120 mg PO BID [facility] Last Admin: 10/26/17 09:18 Dose: 120 mg Insulin Aspart (Novolog Vial Sliding Scale -) 1 vial SQ [facility] PRN Reason: Protocol Last Admin: 10/25/17 22:03 Dose: 3 units Insulin Aspart (Novolog Vial Sliding Scale -) 1 vial SQ TIDAC [facility] PRN Reason: Protocol Insulin Detemir (Levemir Vial) 10 units SQ [facility] Metoprolol Tartrate (Lopressor Injection -) 5 mg IVPUSH Q4H PRN PRN Reason: TACHYCARDIA Nystatin (Nystatin Oral Suspension -) 500,000 units PO Q6HPO [facility] Last Admin: 10/26/17 11:46 Dose: 500,000 units Pantoprazole Sodium (Protonix -) 40 mg PO DAILY [facility] Last Admin: 10/26/17 09:16 Dose: 40 mg Tamsulosin HCl (Flomax -) 0.4 mg PO DAILY@0830 [facility] Last Admin: 10/26/17 08:40 Dose: 0.4 mg - Objective Vital Signs: Vital Signs - 24 hr 10/25/17 10/25/17 10/25/17 14:53 16:00 20:00 Temperature 98.4 F Pulse Rate 103 H 100 H 102 H Respiratory 25 H 22 25 H Rate Blood Pressure 104/49 113/52 113/53 O2 Sat by Pulse Oximetry (%) 10/25/17 10/25/17 10/26/17 20:09 22:00 00:00 Temperature 98.6 F Pulse Rate 104 H 97 H Respiratory 21 22 Rate Blood Pressure 92/62 102/42 O2 Sat by Pulse 100 Oximetry (%) 10/26/17 10/26/17 10/26/17 02:00 04:00 06:00 Temperature 99.2 F 98.6 F Pulse Rate 113 H 103 H 94 H Respiratory 29 H 27 H 20 Rate Blood Pressure 116/47 114/39 99/47 O2 Sat by Pulse Oximetry (%) 10/26/17 10/26/17 10/26/17 08:00 09:00 10:00 Temperature 99.4 F Pulse Rate 101 H 104 H Respiratory 24 24 Rate Blood Pressure 102/51 103/46 O2 Sat by Pulse 100 100 Oximetry (%) 10/26/17 12:00 Temperature Pulse Rate 104 H Respiratory 27 H Rate Blood Pressure 120/52 O2 Sat by Pulse Oximetry (%) Intake & Output 10/24/17 10/25/17 10/26/17 10/27/17 07:59 07:59 07:59 07:59 Intake Total 760 200 750 Output Total 2400 700 800 300 Balance -1640 -500 -50 -300 Weight 112 lb 9 oz 107 lb 14.4 oz 105 lb 12.8 oz Constitutional: Yes: No Distress, Calm, ++ cachectic Eyes: No: Sclera Icterus HENT: No: Nasal Congestion Cardiovascular: Yes: Regular Rate and Rhythm, Murmur (3/6 EMMA rusb), S1, S2, Other (PMI non diplaced). No: Gallop Respiratory: bibasilar rales, poor effort. No: Accessory Muscle Use, Wheezes Gastrointestinal: Yes: Normal Bowel Sounds, Soft. No: Tenderness Musculoskeletal: Yes: Other (No kyphosis) Extremities: dimished dp/pt, gangrene of left foot. Edema: No Integumentary: No: Jaundice Neurological: Yes: Alert. No: Seizure Psychiatric: No: Agitated Labs: CBC, BMP 10/26/17 05:15 10/26/17 05:15 Laboratory Tests 10/26/17 05:15 Magnesium 2.2 Albumin 1.5 L Assessment/Plan tele: SR, ST EKG 10/03: sinus tach with atrial run. non-sp t wave ab. no ischemic changes. 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 diverticulosis, gastritis, esophagitis. cxr 10/26 (images, report reviewed): RLL consolidation with associated reactive right pleural effusion. cxr: still with congestive changes, with some infiltrative findings at right base with fluid. cxr 10/05: RLL consolidation and pleural fluid. cxr 10/08 improved aeration at right base. Echo 09/2017: tds. nl lv/rv size/fn. E, A reversal. mod-sev mac. + fn MS. 1 + mr/tr. nl rvsp. Echo 06/2017: mod lvh. nl lv fn. nl rv size/fn. 1+ lae. mod-sev mac with mod ms. 1+ mr. nl rvsp. 1+ ao dilation A/P 76 yo with pmhx of htn, hl, pad, afib (not on AC due to GIB), cva (no residual deficits), copd, dm, mgus, esthesioneuroblastoma treated with radiation therapy , chronic anemia s/p recent GIB admitted with dka, sepsis, resp failure. Hospital course now complicated by episode of afib with rvr afib - not previously a candidate for AC b/c of prior hx of GIB. remains anemic with melena here as well. - s/p IV amio. started po dilt 10/05. now back in sr. hr controlled. - off Amio, remains in sinus. BPs soft but tolerating diltiazem hi dose (90mg q6H)--continue same for now - change to cardizem CD regimen once bp's clearly out of the ngo as far as hypotension - hgb drifted down once ASA resumed--now d/c'd. not a candidate for AC at this time as risks of serious bleeding are > benefits - remains in SR, bp thus far tolerating diltiazem at present dose - 10/19: episode of bradycardia with intermittent dropped qrs complexes and runs of ventricular escape. Will decrease diltiazem to 60 mg q6h. Observe for recurrence of RVR. --> transitioned to long acting dilt (120 bid 10/23). - remains rate controlled/sr on dilt ([place] rate now slightly higher on lower dilt dose), consider uptitration once bp improves as mentioned below. no bradycardia episodes on current dose of dilt Vtach: - long run on tele of nonsustained WCT, HR around 100-110 bpm (suspect slow VT) - K/Mag both aggressively repleted--routine mgmt - rpt echo for LVEF (normal in 07/15) --> normal EF. will plan on trial of uptitration of dilt back to total daily dose of 360 mg once bp improves. Or add amio if bp/infection continues to limit uptitration. - cont tele mitral stenosis: - aggressive control of afib to prevent tachycardia CHF as doing - defer amio for now, may have to reconsider if recurrent rapid AF despite sepsis/PNA complete resolution PNA with septic shock, resp failure, resolving - off phenylephrine as of AM 10/11, hemodynamically stable currently - extubated 10/12 - 10/26 recurrence of low grade, elevated wbc and rll consolidation on cxr. con' t to monitor. mgm't per pmd/pulm anemia, GI bleeding: - ongoing UGIB here with stool guaiac + (iker hgb 6.1) - s/p PRBCs, last on 10/18 - counts stable - no cardiac contraindications to planned egd/foc. - s/p endoscopy 10/21 --> avm cauterized. see above htn - home meds changed to diltiazem here for PAF rate control - bp stable, now trending slightly on low end, con't to monitor. cva/pad - con't statin. - per pmd, previously not a candidate for asa due to recent gib and anemia. hgb drifting down on asa here, held again mild asc ao dilation - cont bp control SHANTA - renal following, no sig improvement --> initiated HD 10/07. - currently have been monitoring off HD. started on torsemide per renal --> stopped 10/26.
--- NOTE | 2017-10-26 13:22 | PN ---
Physical Exam: SUBJECTIVE: Patient seen and examined in ICU. No acute events overnight. Patient eating well. Patient does complain of pain in feet OBJECTIVE: Vital Signs Period Temp Pulse Resp BP Sys/Sy Pulse Ox Last 24 Hr 98.4 F-99.4 F 94-113 20-29 92-120/39-62 100-100 GENERAL: The patient is awake, alert, and fully oriented, in no acute distress. HEAD: Normal with no signs of trauma. NECK: Trachea midline, full range of motion, supple. LUNGS: Breath sounds equal, clear to auscultation bilaterally, no wheezes, no crackles, no accessory muscle use. HEART: Regular rate and rhythm, S1, S2 without murmur, rub or gallop. ABDOMEN: Soft, nontender, nondistended, normoactive bowel sounds, no guarding, no rebound, no hepatosplenomegaly, no masses. EXTREMITIES: 1+ pulse in right foot, discoloration without palpable pulse in left foot NEUROLOGICAL: Cranial nerves II through XII grossly intact. Normal speech, gait not observed. Laboratory Results - last 24 hr 10/25/17 10/25/17 10/25/17 11:18 11:21 13:42 WBC RBC Hgb Hct MCV MCH MCHC RDW Plt Count MPV Neutrophils % Lymphocytes % Monocytes % Eosinophils % Basophils % Sodium Potassium Chloride Carbon Dioxide Anion Gap BUN Creatinine Creat Clearance w eGFR POC Glucometer > 400 > [phone] Random Glucose Calcium Phosphorus Magnesium Total Bilirubin AST ALT Alkaline Phosphatase Total Protein Albumin 10/25/17 10/26/17 10/26/17 17:41 05:15 05:15 WBC 16.2 H D RBC 2.35 L Hgb 7.3 L D Hct 21.7 L MCV 92.2 MCH 31.1 MCHC 33.7 RDW 15.0 Plt Count 438 H MPV 8.3 Neutrophils % 91.2 H Lymphocytes % 2.5 L D Monocytes % 5.5 Eosinophils % 0.4 Basophils % 0.4 Sodium 139 Potassium 4.2 Chloride 99 Carbon Dioxide 31 Anion Gap 9 BUN 90 H Creatinine 4.5 H Creat Clearance w eGFR 12.74 POC Glucometer [phone] Random Glucose 238 H D Calcium 8.0 L Phosphorus 5.1 H Magnesium 2.2 Total Bilirubin 0.2 AST 13 L D ALT < 6 L Alkaline Phosphatase 104 Total Protein 5.7 L Albumin 1.5 L 05/01/18 11:42 WBC RBC Hgb Hct MCV MCH MCHC RDW Plt Count MPV Neutrophils % Lymphocytes % Monocytes % Eosinophils % Basophils % Sodium Potassium Chloride Carbon Dioxide Anion Gap BUN Creatinine Creat Clearance w eGFR POC Glucometer [phone] Random Glucose Calcium Phosphorus Magnesium Total Bilirubin AST ALT Alkaline Phosphatase Total Protein Albumin Active Medications Generic Name Dose Route Start Last Admin Trade Name Freq PRN Reason Stop Dose Admin Acetaminophen 650 mg 10/26/17 09:08 10/26/17 10:03 Tylenol - PO 650 mg Q6H PRN Administration PAIN OR FEVER Acetylcysteine 200 mg 10/25/17 12:00 10/26/17 11:38 Mucomyst 20 Oral / Inh Use Only* NEB 200 mg RQID SELVIN Administration Albuterol Sulfate 1 amp 10/25/17 12:00 10/26/17 11:38 Ventolin 0.083% Nebulizer Soln - NEB 1 amp RQID SELVIN Administration Amino Acids 30 ml 10/25/17 17:30 10/26/17 08:40 Prosource No Carb Liquid Pkt NGT 30 ml BID@0800,1730 SELVIN Administration Chlorhexidine Gluconate 1 applic 10/25/17 22:00 10/25/17 21:46 Hibiclens For Decolonization - TP 1 applic HS SELVIN Administration Darbepoetin Trell 25 mcg 10/29/17 10:00 Aranesp - SQ Q7D@1000 SELVIN Diltiazem HCl 120 mg 10/25/17 22:00 10/26/17 09:18 Cardizem Cd - PO 120 mg BID SELVIN Administration Insulin Aspart 1 vial 10/25/17 22:00 10/25/17 22:03 Novolog Vial Sliding Scale - SQ 3 units HS SELVIN Administration Protocol Insulin Aspart 1 vial 10/26/17 12:20 Novolog Vial Sliding Scale - SQ TIDAC [facility] Protocol Insulin Detemir 10 units 10/26/17 22:00 Levemir Vial SQ HS [facility] Metoprolol Tartrate 5 mg 10/25/17 11:23 Lopressor Injection - IVPUSH Q4H PRN TACHYCARDIA Nystatin 500,000 units 10/25/17 12:00 10/26/17 11:46 Nystatin Oral Suspension - PO 500,000 units Q6HPO SELVIN Administration Pantoprazole Sodium 40 mg 10/26/17 10:00 10/26/17 09:16 Protonix - PO 40 mg DAILY SELVIN Administration Tamsulosin HCl 0.4 mg 10/26/17 08:30 10/26/17 08:40 Flomax - PO 0.4 mg DAILY@0830 SELVIN Administration ASSESSMENT/PLAN: 76M with history of COPD, IDDM, pneumonia with history of prior intubation here with pneumonia and dka. DKA resolved. Intubated, then extubated. Stable respiratory status on NC. Respiratory #Acute Hypoxic Respiratory Failure -Likely secondary to Pneumonia -ABx per ID -Extubated, stable on NC #COPD -Continue Nebulizers -Continue Ventilation #Atelectasis 2/2 trendelenburg positioning -Oxygen -Chest PT -Repositioning -Resolved Infectious Disease #Septic Shock secondary to Pneumonia -ABx per ID. -Blood cultures negative -Sputum cultures staph, hector sensitive -Legionella negative -HOB elevated -Aspiration precautions -Off pressors -Resolved #Elevated white count (10/26/17) - WBC 16 today with tachycardia, UA/UC/CXR/BC ordered - Repeat CBC at 3pm - CXR shows no acute changes. UA/UC/BC pending GI #Melena -Scope showed non-bleeding angiectasis that was cauterized -Protonix 40mg daily -Daily CBCs Nephrology #Acute on Chronic Renal Failure -Likely ATN secondary from Septic hock -Urine output 1660 yesterday -BUN/Cr stable #AG and Non-AG Metabolic acidosis -Acidosis resolved Cardiovascular #Paroxysmal Atrial Fibrillation -Continue Cardizem -Metoprolol 5mg IVP Q4H PRN for Tachycardia #HTN -Patient not hypertensive -Will continue to monitor BP #CAD/PVD -Ischemia in left toe likely secondary to pressors, hypotension, and prior surgery in the left foot. -Left foot is warm, pink with discoloration around 1st/2nd toes -Palpable pulses in both feet today -Vascular aware, following -Will optimize medically -Not candidate for asa, heparin due to hgb drop, h/o gi bleed #Anemia -Hgb 7.3 today, down from 8.6 -Will repeat at 3pm -Transfuse <7 or per GI reqs Endocrine #DKA-Resolved -Continue ISS -Continue BGM -Continue Levemir F/E/N -On no fluids -Electrolytes wnl -Taking PO, puree diet with nectar liquids Prophylaxis -Anticoagulation held due to GI bleed -Protonix 40mg IV BID daily Disposition -Patient is DNR/DNI -Transfer to tele Visit type - Emergency Visit Emergency Visit: Yes ED Registration Date: 10/03/17 Care time: The patient presented to the Emergency Department on the above date and was hospitalized for further evaluation of their emergent condition. - New Patient This patient is new to me today: No - Critical Care Critical Care patient: Yes Total Critical Care Time (in minutes): 35 Critical Care Statement: The care of this patient involved high complexity decision making to prevent further life threatening deterioration of the patient 's condition and/or to evaluate & treat vital organ system(s) failure or risk of failure.
--- NOTE | 2017-10-26 13:52 | PN ---
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 Encourage effortful swallow and double wallow per bite/sip. Supplements b/n meals.on. Overall, looking better. Case reviewed with PMD. For MBS when medically stable.
--- NOTE | 2017-10-26 14:37 | PN ---
Progress Note (short form) - Note Progress Note: Renal follow up for SHANTA Pt seen and examined in the ICU awake and alert making urine no sob, chest pain, abd pain, fever, chills Vital Signs Temperature 99.0 F 10/26/17 14:00 Pulse Rate 95 H 10/26/17 14:00 Respiratory Rate 25 H 10/26/17 14:00 Blood Pressure 97/46 10/26/17 14:00 O2 Sat by Pulse Oximetry (%) 100 10/26/17 10:00 Intake & Output 10/23/17 10/24/17 10/25/17 10/26/17 23:59 23:59 23:59 23:59 Intake Total 960 340 600 150 Output Total 1500 2000 1100 300 Balance -540 -1660 -500 -150 Weight 51.511 kg 51.057 kg 48.943 kg 47.99 kg NAD RRR, No M/R Dec BS at lung bases soft NT/ND No LE edema, clubbing or cyanosis heels in dressing CBC, BMP 10/26/17 05:15 Current Medications Acetaminophen (Tylenol -) 650 mg PO Q6H PRN PRN Reason: PAIN OR FEVER Last Admin: 10/26/17 10:03 Dose: 650 mg Acetylcysteine (Mucomyst 20 Oral / Inh Use Only*) 200 mg NEB RQID [facility] Last Admin: 10/26/17 11:38 Dose: 200 mg Albuterol Sulfate (Ventolin 0.083% Nebulizer Soln -) 1 amp NEB RQID [facility] Last Admin: 10/26/17 11:38 Dose: 1 amp Amino Acids (Prosource No Carb Liquid Pkt) 30 ml NGT BID@0800,1730 [facility] Last Admin: 10/26/17 08:40 Dose: 30 ml Chlorhexidine Gluconate (Hibiclens For Decolonization -) 1 applic TP [facility] Last Admin: 10/25/17 21:46 Dose: 1 applic Darbepoetin Trell (Aranesp -) 25 mcg SQ Q7D@1000 [facility] Diltiazem HCl (Cardizem Cd -) 120 mg PO BID [facility] Last Admin: 10/26/17 09:18 Dose: 120 mg Insulin Aspart (Novolog Vial Sliding Scale -) 1 vial SQ [facility] PRN Reason: Protocol Last Admin: 10/25/17 22:03 Dose: 3 units Insulin Aspart (Novolog Vial Sliding Scale -) 1 vial SQ TIDAC [facility] PRN Reason: Protocol Insulin Detemir (Levemir Vial) 10 units SQ HS [facility] Metoprolol Tartrate (Lopressor Injection -) 5 mg IVPUSH Q4H PRN PRN Reason: TACHYCARDIA Nystatin (Nystatin Oral Suspension -) 500,000 units PO Q6HPO [facility] Last Admin: 10/26/17 11:46 Dose: 500,000 units Pantoprazole Sodium (Protonix -) 40 mg PO DAILY [facility] Last Admin: 10/26/17 09:16 Dose: 40 mg Tamsulosin HCl (Flomax -) 0.4 mg PO DAILY@0830 [facility] Last Admin: 10/26/17 08:40 Dose: 0.4 mg 76 year old male with a significant past medical history of COPD, GI bleed, diverticulosis, HLD, CVA, intussusception, umbilical hernia, DM, HTN, sinus cancer with excision and polypectomy who presents to the ED, accompanied by , s/p high blood sugar levels earlier today. #SHANTA on CKD likely due to ATN in setting of sepsis that required STOCK HANGER #Sepsis/PNA #Anemia/GI bleed #Hx of Hypertension #DM on Insulin #Hyperphosphatemia in setting of renal injury BUN/Cr slowly rising, and pt also with marginal BP hold torsemide for now as CXR w/o overt fluid overload Trend BUN/Cr and electrolytes Trend CBC and transfuse as per ICU protocol no acute indication for STOCK HANGER at this time Tomás Al DO
[2017-10-26 14:38] LABS: BASO % 0.5 % (0-2.0); EOS % 0.3 % (0-4.5); HEMATOCRIT 24.9 % (35.4-49); HEMOGLOBIN 8.3 GM/dL (11.7-16.9); LYMPH % 3.5 % (8-40); MCH 30.4 pg (25.7-33.7); MCHC 33.2 g/dl (32.0-35.9); MEAN CELL VOLUME 91.5 fl (80-96); MEAN PLT VOLUME 7.6 fl (7.5-11.1); MONO % 6.9 % (3.8-10.2); NEUT % 88.8 % (42.8-82.8); PLATELET COUNT 405 K/MM3 (134-434); RBC 2.73 M/mm3 (4.00-5.60); WHITE BLOOD COUNT 14.5 K/mm3 (4.0-10.0)
--- NOTE | 2017-10-26 16:04 | PN ---
Progress Note, Physician History of Present Illness: awake alert no distress swallow study done not c/o of anything all gi work up done - Current Medication List Current Medications: Active Medications Acetaminophen (Tylenol -) 650 mg PO Q6H PRN PRN Reason: PAIN OR FEVER Last Admin: 10/26/17 10:03 Dose: 650 mg Acetylcysteine (Mucomyst 20 Oral / Inh Use Only*) 200 mg NEB RQID [facility] Last Admin: 10/26/17 11:38 Dose: 200 mg Albuterol Sulfate (Ventolin 0.083% Nebulizer Soln -) 1 amp NEB RQID [facility] Last Admin: 10/26/17 11:38 Dose: 1 amp Amino Acids (Prosource No Carb Liquid Pkt) 30 ml NGT BID@0800,1730 [facility] Last Admin: 10/26/17 08:40 Dose: 30 ml Chlorhexidine Gluconate (Hibiclens For Decolonization -) 1 applic TP HS [facility] Last Admin: 10/25/17 21:46 Dose: 1 applic Darbepoetin Trell (Aranesp -) 25 mcg SQ Q7D@1000 [facility] Diltiazem HCl (Cardizem Cd -) 120 mg PO BID [facility] Last Admin: 10/26/17 09:18 Dose: 120 mg Insulin Aspart (Novolog Vial Sliding Scale -) 1 vial SQ [facility] PRN Reason: Protocol Last Admin: 10/25/17 22:03 Dose: 3 units Insulin Aspart (Novolog Vial Sliding Scale -) 1 vial SQ TIDAC [facility] PRN Reason: Protocol Insulin Detemir (Levemir Vial) 10 units SQ [facility] Metoprolol Tartrate (Lopressor Injection -) 5 mg IVPUSH Q4H PRN PRN Reason: TACHYCARDIA Nystatin (Nystatin Oral Suspension -) 500,000 units PO Q6HPO [facility] Last Admin: 10/26/17 11:46 Dose: 500,000 units Pantoprazole Sodium (Protonix -) 40 mg PO DAILY [facility] Last Admin: 10/26/17 09:16 Dose: 40 mg Tamsulosin HCl (Flomax -) 0.4 mg PO DAILY@0830 [facility] Last Admin: 10/26/17 08:40 Dose: 0.4 mg - Objective Vital Signs: Vital Signs Temperature 99.0 F 10/26/17 14:00 Pulse Rate 95 H 10/26/17 14:00 Respiratory Rate 25 H 05/01/18 14:00 Blood Pressure 97/46 10/26/17 14:00 O2 Sat by Pulse Oximetry (%) 100 10/26/17 10:00 Constitutional: Yes: No Distress, Calm Cardiovascular: Yes: S1, S2 Respiratory: Yes: Regular, On Nasal O2, Poor Air Entry Gastrointestinal: Yes: Normal Bowel Sounds, Soft Musculoskeletal: Yes: WNL Extremities: Yes: Other Neurological: Yes: Alert, Other (occasional confusion) Psychiatric: Yes: Alert Labs: CBC, BMP 10/26/17 14:20 10/26/17 05:15 INR, PTT INR 1.16 (0.82-1.09) H 10/15/17 05:46 Assessment/Plan 76 year old male with a significant past medical history of COPD, GI bleed, diverticulosis, HLD, CVA, intussusception, umbilical hernia, DM, HTN, sinus cancer with excision and polypectomy Acute Hypoxic Respiratory Failure Pneumonia Septic Shock Acute on Chronic Renal Failure Lactic Acidosis Diabetic Ketoacidosis improving HTN DM COPD gluteal ulcer discoloration of the toes janene plan stable off of abx continue close monitoring nutrition monitor wbc rest as per icu monitor h and h cc time 40 min
[2017-10-26 17:44] LABS: URINE APPEARANCE CLOUDY; URINE BILIRUBIN NEGATIVE (<2.0 mg/dL); URINE COLOR YELLOW; URINE GLUCOSE (UA) 2+ (NEGATIVE); URINE KETONE TRACE (NEGATIVE); URINE NITRITE POSITIVE (NEGATIVE); URINE UROBILINOGEN NEGATIVE mg/dL (0.2-1.0)
[2017-10-26 17:45] LABS: URINE LEUK ESTERASE 3+ (NEGATIVE); URINE PROTEIN 2+ (NEGATIVE)
[2017-10-26 17:48] LABS: URINE BACTERIA FEW /hpf (NONE SEEN)
[2017-10-26] MEDS: CHLORHEXIDINE GLUCONATE 4% CLEANSER FOR DECOLONIZATION TP SCH (23:00)
[2017-10-26] MEDS: INSULIN (LEVEMIR) 100 UNITS/ML UNITS SQ SCH (23:12)
[2017-10-27] MEDS: NYSTATIN 500,000 UNITS/5 ML SUSPENSION PO SCH ×4 (00:49→18:22)
[2017-10-27] MEDS: INSULIN SLIDING SCALE (NOVOLOG) 1 VIAL SQ SCH ×5 (06:38→21:51)
[2017-10-27] MEDS: ACETYLCYSTEINE 20% 200MG/ML 4 ML VIAL *FOR ORAL / INH USE ONLY NEB SCH ×4 (07:38→20:00)
[2017-10-27] MEDS: ALBUTEROL SO4 0.083% IH SOL 2.5 MG/3 ML VIAL.NEB. NEB SCH ×4 (07:38→20:00)
[2017-10-27 07:45] LABS: HEMATOCRIT 24.2 % (35.4-49); MCH 30.5 pg (25.7-33.7); MCHC 33.2 g/dl (32.0-35.9); MEAN CELL VOLUME 91.8 fl (80-96); MEAN PLT VOLUME 8.1 fl (7.5-11.1); PLATELET COUNT 407 K/MM3 (134-434); RBC 2.64 M/mm3 (4.00-5.60); RDW 14.9 % (11.9-15.9); WHITE BLOOD COUNT 13.1 K/mm3 (4.0-10.0)
[2017-10-27 08:31] LABS: CHLORIDE 99 mmol/L (98-107); POTASSIUM 4.7 mmol/L (3.5-5.1); SODIUM 143 mmol/L (136-145)
[2017-10-27 08:46] LABS: ALBUMIN 1.7 g/dl (3.4-5.0); ALK PHOS 108 U/L (45-117); ANION GAP 14 (8-16); BILIRUBIN,TOTAL 0.2 mg/dL (0.2-1.0); BLOOD UREA NITROGEN 99 mg/dL (7-18); CALCIUM 8.3 mg/dL (8.5-10.1); CO2 30 mmol/L (21-32); CREATININE 4.9 mg/dL (0.7-1.3); GLUCOSE,RANDOM 149 mg/dL (74-106); MAGNESIUM 2.3 mg/dL (1.8-2.4); PHOSPHOROUS 5.5 mg/dL (2.5-4.9); SGOT/AST 16 U/L (15-37); SGPT/ALT 6 U/L (12-78); TOT PROT 6.1 g/dl (6.4-8.2)
--- NOTE | 2017-10-27 09:04 | PN ---
Progress Note (short form) - Note Progress Note: Patient seen and examined. PT to attempt ?OOB today but at bedrest for weeks but when the therapist came today he refused. Ammy Galvez documented the results of his modified barium swallow. He is said risk for aspiration with liquids and she suggested a PEG but I am not sure if he will agree to that and whether his current condition would be able to tolerate that procedure. If he does refuse we may have to discontinue honey thickened liquids as we are doing with his pure dysphagia diet. In order to prevent hypoglycemia during the night the automatic door mechanic has lowered the amount of his insulin coverage. on exam: Vital Signs Temp 98.6 F 10/27/17 16:11 Pulse 93 H 10/27/17 16:11 Resp 20 10/27/17 16:11 BP 114/50 10/27/17 16:11 Pulse Ox 98 10/27/17 10:00 Intake & Output 10/26/17 10/27/17 10/27/17 23:59 11:59 23:59 Intake Total 120 Output Total 400 Balance -280 Intake: Oral 120 Output: Urine 400 Void 400 Other: Voiding Method Incontinent Incontinent Diaper he is alert Pupils equal Chest decreased breath sounds at bases. Heart tachycardia. Abdomen flat and soft with no focal tenderness. Extremities gangrenous changes first 3 toes left foot. No pedal edema. Abnormal Lab Results 10/27/17 10/27/17 06:44 06:44 WBC 13.1 H RBC 2.64 L Hgb 8.0 L Hct 24.2 L Neutrophils % (Manual) 86.0 H Lymphocytes % (Manual) 6.0 L D BUN 99 H Creatinine 4.9 H Random Glucose 149 H D Calcium 8.3 L Phosphorus 5.5 H ALT 6 L Total Protein 6.1 L Albumin 1.7 L impression: Acute on chronic renal failure with worsening Diabetes mellitus, uncontrolled. Peripheral vascular disease with gangrene 3 toes left foot. History of pharyngeal cancer with radiation therapy. Chronic anemia with acute blood loss anemia. And diverticulosis and history of GI bleed. COPD Pneumonia with sepsis, resolved. Plan: Followup CBC and profile Discussed possible PEG tube with patient consultants to continue close monitoring. We'll enforce need for PT to the patient
[2017-10-27] MEDS: TAMSULOSIN HCL 0.4 MG CAP.ER.24H (FP) PO SCH (09:09)
[2017-10-27] MEDS: AMINO ACIDS/PROTEIN HYDROLYS 30 ML LIQUID.PKT NGT SCH ×2 (10:09→18:22)
[2017-10-27] MEDS: PANTOPRAZOLE 40 MG TABLET (FP) PO SCH (10:10)
--- NOTE | 2017-10-27 10:19 | PN ---
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 For mbs today.
--- NOTE | 2017-10-27 10:44 | PN ---
Progress Note (short form) - Note Progress Note: Chief Complaint: resp failure History of Present Illness: no cp, palps, dizziness, sob Current Medications Generic Name Dose Route Start Last Admin Trade Name Freq PRN Reason Stop Dose Admin Acetaminophen 650 mg 10/26/17 09:08 10/26/17 10:03 Tylenol - PO 650 mg Q6H PRN Administration PAIN OR FEVER Acetylcysteine 200 mg 10/25/17 12:00 10/27/17 07:38 Mucomyst 20 Oral / Inh Use Only* NEB 200 mg RQID SELVIN Administration Albuterol Sulfate 1 amp 10/25/17 12:00 10/27/17 07:38 Ventolin 0.083% Nebulizer Soln - NEB 1 amp RQID SELVIN Administration Amino Acids 30 ml 10/25/17 17:30 10/27/17 10:09 Prosource No Carb Liquid Pkt NGT 30 ml BID@0800,1730 SELVIN Administration Chlorhexidine Gluconate 1 applic 10/25/17 22:00 10/26/17 23:00 Hibiclens For Decolonization - TP Not Given HS SELVIN Darbepoetin Trell 25 mcg 10/29/17 10:00 Aranesp - SQ Q7D@1000 SEL[facility]IN Diltiazem HCl 120 mg 10/25/17 22:00 10/27/17 10:10 Cardizem Cd - PO 120 mg BID SELVIN Administration Insulin Aspart 1 vial 10/25/17 22:00 10/26/17 23:13 Novolog Vial Sliding Scale - SQ 5 units HS SELVIN Administration Protocol Insulin Aspart 1 vial 10/26/17 12:20 10/27/17 06:38 Novolog Vial Sliding Scale - SQ 5 units TIDAC [facility] Administration Protocol Insulin Detemir 10 units 10/26/17 22:00 10/26/17 23:12 Levemir Vial SQ 10 units HS [facility] Administration Metoprolol Tartrate 5 mg 10/25/17 11:23 Lopressor Injection - IVPUSH Q4H PRN TACHYCARDIA Nystatin 500,000 units 10/25/17 12:00 10/27/17 06:38 Nystatin Oral Suspension - PO 500,000 units Q6HPO SELVIN Administration Pantoprazole Sodium 40 mg 10/26/17 10:00 10/27/17 10:10 Protonix - PO 40 mg DAILY SELVIN Administration Tamsulosin HCl 0.4 mg 10/26/17 08:30 10/27/17 09:09 Flomax - PO 0.4 mg DAILY@0830 SELVIN Administration - Objective Vital Signs: Vital Signs Period Temp Pulse Resp BP Sys/Sy Pulse Ox Last 24 Hr 97.8 F-99.0 F 89-104 18-27 97-140/44-67 96 Constitutional: Yes: cachectic, No Distress, Calm Cardiovascular: Yes: Regular Rate and Rhythm. No: JVD (tds exam), Gallop, Murmur Respiratory: Yes: Regular,cta, nl effort Extremities: No: Cold Edema: No Neurological: Yes: Alert. No: Seizure Psychiatric: No: Agitated dimished dp/pt, gangrene of left foot. Labs: CBC, BMP 10/27/17 06:44 10/27/17 06:44 tele: SR EKG 10/03: sinus tach with atrial run. non-sp t wave ab. no ischemic changes. 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 diverticulosis, gastritis, esophagitis. cxr 10/26 (images, report reviewed): RLL consolidation with associated reactive right pleural effusion. cxr: still with congestive changes, with some infiltrative findings at right base with fluid. cxr 10/05: RLL consolidation and pleural fluid. cxr 10/08 improved aeration at right base. Echo 09/2017: tds. nl lv/rv size/fn. E, A reversal. mod-sev mac. + fn MS. 1 + mr/tr. nl rvsp. Echo 06/2017: mod lvh. nl lv fn. nl rv size/fn. 1+ lae. mod-sev mac with mod ms. 1+ mr. nl rvsp. 1+ ao dilation A/P 76 yo with pmhx of htn, hl, pad, afib (not on AC due to GIB), cva, copd, dm, mgus, esthesioneuroblastoma treated with radiation therapy, chronic anemia s/ p recent GIB admitted with dka, sepsis, resp failure. Hospital course now complicated by episode of afib with rvr afib - not previously a candidate for AC b/c of prior hx of GIB. remains anemic with melena here as well. - s/p IV amio. started po dilt 10/05. now back in sr. hr controlled. - off Amio, remains in sinus. BPs soft but tolerating diltiazem hi dose (90mg q6H)--continue same for now - change to cardizem CD regimen once bp's clearly out of the ngo as far as hypotension - hgb drifted down once ASA resumed--now d/c'd. not a candidate for AC at this time as risks of serious bleeding are > benefits - remains in SR, bp thus far tolerating diltiazem at present dose - 10/19: episode of bradycardia with intermittent dropped qrs complexes and runs of ventricular escape. Will decrease diltiazem to 60 mg q6h. Observe for recurrence of RVR. --> transitioned to long acting dilt (120 bid 10/23). - remains rate controlled/sr on dilt Vtach: - long run on tele of nonsustained WCT, HR around 100-110 bpm (suspect slow VT) - K/Mag both aggressively repleted--routine mgmt - rpt echo for LVEF (normal in 07/15) --> normal EF. will plan on trial of uptitration of dilt back to total daily dose of 360 mg once bp improves. Or add amio if bp/infection continues to limit uptitration. - cont tele mitral stenosis: - aggressive control of afib to prevent tachycardia CHF as doing - defer amio for now, may have to reconsider if recurrent rapid AF despite sepsis/PNA complete resolution anemia, GI bleeding: - ongoing UGIB here with stool guaiac + (iker hgb 6.1) - s/p PRBCs, last on 10/18 - counts stable - no cardiac contraindications to planned egd/foc. - s/p endoscopy 10/21 --> avm cauterized. htn - home meds changed to diltiazem here for PAF rate control - bp stable cva/pad - con't statin. - per pmd, previously not a candidate for asa due to recent gib and anemia. hgb drifting down on asa here, held again mild asc ao dilation - cont bp control SHANTA - renal following, no sig improvement --> initiated HD 10/07. - currently have been monitoring off HD. started on torsemide per renal --> stopped 10/26.
--- NOTE | 2017-10-27 10:56 | PN ---
Progress Note, Physician History of Present Illness: PULMONARY ALERT,WEAK,MILDLY DYSPNEIC - Current Medication List Current Medications: Active Medications Acetaminophen (Tylenol -) 650 mg PO Q6H PRN PRN Reason: PAIN OR FEVER Last Admin: 10/26/17 10:03 Dose: 650 mg Acetylcysteine (Mucomyst 20 Oral / Inh Use Only*) 200 mg NEB RQID [facility] Last Admin: 10/27/17 07:38 Dose: 200 mg Albuterol Sulfate (Ventolin 0.083% Nebulizer Soln -) 1 amp NEB RQID [facility] Last Admin: 10/27/17 07:38 Dose: 1 amp Amino Acids (Prosource No Carb Liquid Pkt) 30 ml NGT BID@0800,1730 [facility] Last Admin: 10/27/17 10:09 Dose: 30 ml Chlorhexidine Gluconate (Hibiclens For Decolonization -) 1 applic TP HS [facility] Last Admin: 10/26/17 23:00 Dose: Not Given Darbepoetin Trell (Aranesp -) 25 mcg SQ Q7D@1000 [facility] Diltiazem HCl (Cardizem Cd -) 120 mg PO BID [facility] Last Admin: 10/27/17 10:10 Dose: 120 mg Insulin Aspart (Novolog Vial Sliding Scale -) 1 vial SQ [facility] PRN Reason: Protocol Last Admin: 10/26/17 23:13 Dose: 5 units Insulin Aspart (Novolog Vial Sliding Scale -) 1 vial SQ TIDAC [facility] PRN Reason: Protocol Last Admin: 10/27/17 06:38 Dose: 5 units Insulin Detemir (Levemir Vial) 10 units SQ HS [facility] Last Admin: 10/26/17 23:12 Dose: 10 units Metoprolol Tartrate (Lopressor Injection -) 5 mg IVPUSH Q4H PRN PRN Reason: TACHYCARDIA Nystatin (Nystatin Oral Suspension -) 500,000 units PO Q6HPO [facility] Last Admin: 10/27/17 06:38 Dose: 500,000 units Pantoprazole Sodium (Protonix -) 40 mg PO DAILY [facility] Last Admin: 10/27/17 10:10 Dose: 40 mg Tamsulosin HCl (Flomax -) 0.4 mg PO DAILY@0830 [facility] Last Admin: 10/27/17 09:09 Dose: 0.4 mg - Objective Vital Signs: Vital Signs Temperature 98.4 F 10/27/17 09:03 Pulse Rate 94 H 10/27/17 09:03 Respiratory Rate 18 10/27/17 09:03 Blood Pressure 108/50 10/27/17 09:03 O2 Sat by Pulse Oximetry (%) 96 10/26/17 21:00 Constitutional: Yes: Calm, Thin Eyes: Yes: WNL HENT: Yes: WNL Neck: Yes: WNL Cardiovascular: Yes: Regular Rate and Rhythm, S1, S2 Respiratory: Yes: Diminished Gastrointestinal: Yes: Normal Bowel Sounds, Soft Extremities: Yes: Other (ischemic left toes) Edema: No Labs: CBC, BMP 10/27/17 06:44 10/27/17 06:44 INR, PTT INR 1.16 (0.82-1.09) H 10/15/17 05:46 Problem List - Problems (1) Acute respiratory failure Code(s): J96.00 - ACUTE RESPIRATORY FAILURE, UNSP W HYPOXIA OR HYPERCAPNIA (2) Septic shock Code(s): A41.9 - SEPSIS, UNSPECIFIED ORGANISM; R65.21 - SEVERE SEPSIS WITH SEPTIC SHOCK (3) Diabetes mellitus Code(s): E11.9 - TYPE 2 DIABETES MELLITUS WITHOUT COMPLICATIONS (4) Hospital-acquired pneumonia Code(s): J18.9 - PNEUMONIA, UNSPECIFIED ORGANISM (5) CKD (chronic kidney disease) stage 3, GFR 30-59 ml/min Code(s): N18.3 - CHRONIC KIDNEY DISEASE, STAGE 3 (MODERATE) (6) Hyperlipidemia Code(s): E78.5 - HYPERLIPIDEMIA, UNSPECIFIED (7) Hypertension Code(s): I10 - ESSENTIAL (PRIMARY) HYPERTENSION Qualifiers: Hypertension type: essential hypertension Qualified Code(s): I10 - Essential (primary) hypertension (8) Afib Code(s): I48.91 - UNSPECIFIED ATRIAL FIBRILLATION Assessment/Plan ASSESSMENT AND PLAN: Acute Hypoxic Respiratory Failure improving Pneumonia clinically improving Septic Shock resolving Acute on Chronic Renal Failure requiring HD improving Lactic Acidosis resolved Diabetic Ketoacidosis resolved Paroxysmal Atrial Fibrillation with RVR GI bleed HTN DM COPD - inhaled bronchodilators -monitor H/H - HD per renal - monitor urine output, creatinine - monitor I/Os - glucose control - rate control - holding anticoagulation due to GI bleed - taper FiO2 to keep SpO2 >90% - PO as tolerated - aspiration precautions - rehab/PT - DVT/GI prophylaxis DR RENDON
[2017-10-27] MEDS ORDERED: SODIUM CHLORIDE 1,000 ML IV SCH (12:15)
--- NOTE | 2017-10-27 13:46 | PN ---
Progress Note, Physician History of Present Illness: stable on the floor had again a swallow study done slightly agitated - Current Medication List Current Medications: Active Medications Acetaminophen (Tylenol -) 650 mg PO Q6H PRN PRN Reason: PAIN OR FEVER Last Admin: 10/26/17 10:03 Dose: 650 mg Acetylcysteine (Mucomyst 20 Oral / Inh Use Only*) 200 mg NEB RQID [facility] Last Admin: 10/27/17 11:20 Dose: Not Given Albuterol Sulfate (Ventolin 0.083% Nebulizer Soln -) 1 amp NEB RQID [facility] Last Admin: 10/27/17 11:20 Dose: Not Given Amino Acids (Prosource No Carb Liquid Pkt) 30 ml NGT BID@0800,1730 [facility] Last Admin: 10/27/17 10:09 Dose: 30 ml Chlorhexidine Gluconate (Hibiclens For Decolonization -) 1 applic TP [facility] Last Admin: 10/26/17 23:00 Dose: Not Given Darbepoetin Trell (Aranesp -) 25 mcg SQ Q7D@1000 [facility] Diltiazem HCl (Cardizem Cd -) 120 mg PO BID [facility] Last Admin: 10/27/17 10:10 Dose: 120 mg Sodium Chloride (Normal Saline -) 1,000 mls @ 83 mls/hr IV ASDIR [facility] Stop: 10/28/17 12:14 Insulin Aspart (Novolog Vial Sliding Scale -) 1 vial SQ [facility] PRN Reason: Protocol Last Admin: 10/26/17 23:13 Dose: 5 units Insulin Aspart (Novolog Vial Sliding Scale -) 1 vial SQ TIDAC [facility] PRN Reason: Protocol Last Admin: 10/27/17 06:38 Dose: 5 units Insulin Detemir (Levemir Vial) 10 units SQ HS [facility] Last Admin: 10/26/17 23:12 Dose: 10 units Metoprolol Tartrate (Lopressor Injection -) 5 mg IVPUSH Q4H PRN PRN Reason: TACHYCARDIA Nystatin (Nystatin Oral Suspension -) 500,000 units PO Q6HPO [facility] Last Admin: 10/27/17 12:38 Dose: Not Given Pantoprazole Sodium (Protonix -) 40 mg PO DAILY [facility] Last Admin: 10/27/17 10:10 Dose: 40 mg Tamsulosin HCl (Flomax -) 0.4 mg PO DAILY@0830 [facility] Last Admin: 10/27/17 09:09 Dose: 0.4 mg - Objective Vital Signs: Vital Signs Temperature 98.4 F 10/27/17 09:03 Pulse Rate 94 H 10/27/17 09:03 Respiratory Rate 18 10/27/17 09:03 Blood Pressure 108/50 10/27/17 09:03 O2 Sat by Pulse Oximetry (%) 98 10/27/17 10:00 Constitutional: Yes: Anxious, Other Cardiovascular: Yes: S1, S2 Respiratory: Yes: Regular, Poor Air Entry Gastrointestinal: Yes: Normal Bowel Sounds, Soft Musculoskeletal: Yes: WNL Extremities: Yes: Other Neurological: Yes: Alert, Confusion Psychiatric: Yes: Alert Labs: CBC, BMP 10/27/17 06:44 10/27/17 06:44 INR, PTT INR 1.16 (0.82-1.09) H 10/15/17 05:46 Assessment/Plan 76 year old male with a significant past medical history of COPD, GI bleed, diverticulosis, HLD, CVA, intussusception, umbilical hernia, DM, HTN, sinus cancer with excision and polypectomy Acute Hypoxic Respiratory Failure Pneumonia Septic Shock Acute on Chronic Renal Failure Lactic Acidosis Diabetic Ketoacidosis improving HTN DM COPD gluteal ulcer discoloration of the toes janene plan stable off of abx continue close monitoring nutrition await for swallow study result
[2017-10-27] MEDS ORDERED: Insulin (LOG) Aspart 100 UNITS/ML VIAL SQ ONE (15:19)
--- NOTE | 2017-10-27 15:19 | PN ---
Progress Note (short form) - Note Progress Note: Up from barium swallow Fluctuating blood sugar Still getting Juice with meals Vital Signs Period Temp Pulse Resp BP Sys/Sy Pulse Ox Last 24 Hr 97.8 F-98.4 F 89-102 18-20 104-140/44-67 96-98 PE: awake, alert Neck: supple Lungs: CTA CVS: S1S2 Abd: Benign Ext: No edema, dusky coloration left 1st and 2nd toes, black discoloration of left heel Neuro: Awake, alert CMP Sodium 143 mmol/L (136-145) 10/27/17 06:44 Potassium 4.7 mmol/L (3.5-5.1) 10/27/17 06:44 Chloride 99 mmol/L (98-107) 10/27/17 06:44 Carbon Dioxide 30 mmol/L (21-32) 10/27/17 06:44 Anion Gap 14 (8-16) 10/27/17 06:44 BUN 99 mg/dL (7-18) H 10/27/17 06:44 Creatinine 4.9 mg/dL (0.7-1.3) H 10/27/17 06:44 Creat Clearance w eGFR 11.55 (>60) 10/27/17 06:44 POC Glucometer 179 UNITS (80-120) 10/27/17 05:34 Random Glucose 149 mg/dL (74-106) H D 10/27/17 06:44 Hemoglobin A1c % 8.5 % (4.8-6.0) H D 10/04/17 06:00 Lactic Acid 2.0 mmol/L (0.0-2.0) 10/03/17 12:00 Calcium 8.3 mg/dL (8.5-10.1) L 10/27/17 06:44 Phosphorus 5.5 mg/dL (2.5-4.9) H 10/27/17 06:44 Magnesium 2.3 mg/dL (1.8-2.4) 10/27/17 06:44 Iron 22 ug/dL (38-169) L 10/06/17 05:50 Ferritin 202.816 ng/ml (16.4-293.9) 10/06/17 05:50 Total Bilirubin 0.2 mg/dL (0.2-1.0) 10/27/17 06:44 AST 16 U/L (15-37) D 10/27/17 06:44 ALT 6 U/L (12-78) L 10/27/17 06:44 Alkaline Phosphatase 108 U/L (45-117) 10/27/17 06:44 Total Protein 6.1 g/dl (6.4-8.2) L 10/27/17 06:44 Albumin 1.7 g/dl (3.4-5.0) L 10/27/17 06:44 Vitamin B12 1602 pg/ml (180-914) H 10/06/17 05:50 Serum Folate 23 ng/ml (3.1-17.5) H 10/06/17 05:50 Current Medications Generic Name Dose Route Start Last Admin Trade Name Freq PRN Reason Stop Dose Admin Acetaminophen 650 mg 10/26/17 09:08 10/26/17 10:03 Tylenol - PO 650 mg Q6H PRN Administration PAIN OR FEVER Acetylcysteine 200 mg 10/25/17 12:00 10/27/17 11:20 Mucomyst 20 Oral / Inh Use Only* NEB Not Given RQID [facility] Albuterol Sulfate 1 amp 10/25/17 12:00 10/27/17 11:20 Ventolin 0.083% Nebulizer Soln - NEB Not Given RQID [facility] Amino Acids 30 ml 10/25/17 17:30 10/27/17 10:09 Prosource No Carb Liquid Pkt NGT 30 ml BID@0800,1730 [facility] Administration Chlorhexidine Gluconate 1 applic 10/25/17 22:00 10/26/17 23:00 Hibiclens For Decolonization - TP Not Given HS [facility] Darbepoetin Trell 25 mcg 10/29/17 10:00 Aranesp - SQ Q7D@1000 [facility] Diltiazem HCl 120 mg 10/25/17 22:00 10/27/17 10:10 Cardizem Cd - PO 120 mg BID [facility] Administration Sodium Chloride 1,000 mls @ 83 mls/hr 10/27/17 12:15 10/27/17 15:10 Normal Saline - IV 10/28/17 12:14 83 mls/hr ASDIR [facility] Administration Insulin Aspart 1 vial 10/25/17 22:00 10/26/17 23:13 Novolog Vial Sliding Scale - SQ 5 units HS [facility] Administration Protocol Insulin Aspart 1 vial 10/26/17 12:20 10/27/17 15:14 Novolog Vial Sliding Scale - SQ 5 units TIDAC [facility] Administration Protocol Insulin Detemir 10 units 10/26/17 22:00 10/26/17 23:12 Levemir Vial SQ 10 units HS [facility] Administration Metoprolol Tartrate 5 mg 10/25/17 11:23 Lopressor Injection - IVPUSH Q4H PRN TACHYCARDIA Nystatin 500,000 units 10/25/17 12:00 10/27/17 12:38 Nystatin Oral Suspension - PO Not Given Q6HPO [facility] Pantoprazole Sodium 40 mg 10/26/17 10:00 10/27/17 10:10 Protonix - PO 40 mg DAILY [facility] Administration Tamsulosin HCl 0.4 mg 10/26/17 08:30 10/27/17 09:09 Flomax - PO 0.4 mg DAILY@0830 [facility] Administration AP; Acute Hypoxic Respiratory Failure s/p Extubation Pneumonia Septic Shock DM with Acidosis ? DKA,?Lactic acidosis Acute on Chronic Renal Failure Paroxysmal Atrial Fibrillation with RVR HTN COPD Ischemic changes left first and 2nd toes GI bleeding s/p transfuison S/P EGD and Colonoscopy Ba Swallow shows aspiration of liquids Fluctuating blood sugar secondary inconsistent food intake. BGM QACHS and 3 a.m. No Juice with meals, BGM at 3 a.m. also as ordered. Discussed with RN today Levemir 10 units daily, Novolog coverage Chart reviewed Start D10W at 42 ml/hr whenever tube feeding is on hold or discontinued until food intake is adequate. As pt was admitted with acidosis possibly DKA, need to continue to administer long acting Insulin Dr Nowak covering until November 16.
--- NOTE | 2017-10-27 17:28 | PN ---
Progress Note (short form) - Note Progress Note: Renal follow up for SHANTA Pt seen and examined at the bedside awake and alert denies any sob, chest pain or abd pain making urine Vital Signs Temperature 98.6 F 10/27/17 16:11 Pulse Rate 93 H 10/27/17 16:11 Respiratory Rate 20 10/27/17 16:11 Blood Pressure 114/50 10/27/17 16:11 O2 Sat by Pulse Oximetry (%) 98 10/27/17 10:00 Intake & Output 10/24/17 10/25/17 10/26/17 10/27/17 23:59 23:59 23:59 23:59 Intake Total 340 600 270 Output Total 2000 1100 700 Balance -1660 -500 -430 Weight 51.057 kg 48.943 kg 47.99 kg NAD Dry MM RRR, No M/R CTA soft NT/ND No LE edema, clubbing or cyanosis heels in dressing CBC, BMP 10/27/17 06:44 10/27/17 06:44 Current Medications Acetaminophen (Tylenol -) 650 mg PO Q6H PRN PRN Reason: PAIN OR FEVER Last Admin: 10/26/17 10:03 Dose: 650 mg Acetylcysteine (Mucomyst 20 Oral / Inh Use Only*) 200 mg NEB RQID [facility] Last Admin: 10/27/17 15:30 Dose: 200 mg Albuterol Sulfate (Ventolin 0.083% Nebulizer Soln -) 1 amp NEB RQID [facility] Last Admin: 10/27/17 15:30 Dose: 1 amp Amino Acids (Prosource No Carb Liquid Pkt) 30 ml NGT BID@0800,1730 [facility] Last Admin: 10/27/17 10:09 Dose: 30 ml Chlorhexidine Gluconate (Hibiclens For Decolonization -) 1 applic TP HS [facility] Last Admin: 10/26/17 23:00 Dose: Not Given Darbepoetin Trell (Aranesp -) 25 mcg SQ Q7D@1000 [facility] Diltiazem HCl (Cardizem Cd -) 120 mg PO BID [facility] Last Admin: 10/27/17 10:10 Dose: 120 mg Sodium Chloride (Normal Saline -) 1,000 mls @ 83 mls/hr IV ASDIR [facility] Stop: 10/28/17 12:14 Last Admin: 10/27/17 15:10 Dose: 83 mls/hr Insulin Aspart (Novolog Vial Sliding Scale -) 1 vial SQ HS [facility] PRN Reason: Protocol Last Admin: 10/26/17 23:13 Dose: 5 units Insulin Aspart (Novolog Vial Sliding Scale -) 1 vial SQ TIDAC [facility] PRN Reason: Protocol Last Admin: 10/27/17 15:14 Dose: 5 units Insulin Detemir (Levemir Vial) 10 units SQ HS [facility] Last Admin: 10/26/17 23:12 Dose: 10 units Metoprolol Tartrate (Lopressor Injection -) 5 mg IVPUSH Q4H PRN PRN Reason: TACHYCARDIA Nystatin (Nystatin Oral Suspension -) 500,000 units PO Q6HPO [facility] Last Admin: 10/27/17 12:38 Dose: Not Given Pantoprazole Sodium (Protonix -) 40 mg PO DAILY [facility] Last Admin: 10/27/17 10:10 Dose: 40 mg Tamsulosin HCl (Flomax -) 0.4 mg PO DAILY@0830 [facility] Last Admin: 10/27/17 09:09 Dose: 0.4 mg 76 year old male with a significant past medical history of COPD, GI bleed, diverticulosis, HLD, CVA, intussusception, umbilical hernia, DM, HTN, sinus cancer with excision and polypectomy who presents to the ED, accompanied by , s/p high blood sugar levels earlier today. 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
[2017-10-27] MEDS ORDERED: INSULIN (NOVOLOG) ASPART 100 UNITS/ML 10ML VIAL ONE ×2 (18:19→21:45)
[2017-10-27] MEDS: CHLORHEXIDINE GLUCONATE 4% CLEANSER FOR DECOLONIZATION TP SCH (21:06)
[2017-10-27] MEDS: INSULIN (LEVEMIR) 100 UNITS/ML UNITS SQ SCH (21:51)
[2017-10-28] MEDS: NYSTATIN 500,000 UNITS/5 ML SUSPENSION PO SCH ×4 (00:58→19:54)
[2017-10-28] MEDS: INSULIN SLIDING SCALE (NOVOLOG) 1 VIAL SQ SCH ×4 (06:25→22:36)
[2017-10-28] MEDS: ACETYLCYSTEINE 20% 200MG/ML 4 ML VIAL *FOR ORAL / INH USE ONLY NEB SCH ×4 (08:20→20:40)
[2017-10-28] MEDS: ALBUTEROL SO4 0.083% IH SOL 2.5 MG/3 ML VIAL.NEB. NEB SCH ×4 (08:20→20:40)
--- NOTE | 2017-10-28 09:00 | PN ---
Progress Note (short form) - Note Progress Note: Patient seen and examined. He told me he is "open" to feeding tube and realizes his limitations. He will consider more fully; I will speak to his today. On IV Rx due to increasing renal values and poor intake. He gets more confused as the day goes on. Hb now 8.Gm; Type and screen ordered. Seen by GI MD in addition to Cardiac, Renal, Pulmonary and ID MD. On Exam: Vital Signs Temp 98.2 F 10/28/17 17:00 Pulse 95 H 10/28/17 17:00 Resp 20 10/28/17 17:00 BP 118/55 10/28/17 17:00 Pulse Ox 96 10/28/17 10:00 Intake & Output 10/27/17 10/28/17 10/28/17 23:59 11:59 23:59 Intake Total 560 1100 664 Output Total 300 350 Balance 260 750 664 Weight 107 lb 3.2 oz Intake: IV 1000 664 Normal Saline - 1,000 ml 1000 664 @ 83 mls/hr IV ASDIR [facility] Rx#:[id number] Oral 560 100 Output: Urine 300 350 Void 300 350 Other: Voiding Method Urinal Urinal Incontinent Weight Measurement Method Patient Lift Scale Alert but not very conversant when seen this AM Chest: Decreased breath sounds Cor: tachycardia Abd: Soft and Flat Ext: No change in gangrenous changes IMP: Acute on Chronic Renal Failure Risk of Aspiration Sepsis with pneumonia resolved COPD DM uncontrolled PVD with gangenous changes toes left foot Acute and chronic anemia due blood loss PLAN: F/U Lab IV Saline Revisit decision on PEG tube tomorrow ? Repeat dialysis if renal function worsens further Await revisit of Vascular MD
[2017-10-28] MEDS: ACETAMINOPHEN 325 MG TABLET (FP) PO PRN (09:59)
[2017-10-28] MEDS: AMINO ACIDS/PROTEIN HYDROLYS 30 ML LIQUID.PKT NGT SCH ×2 (09:59→19:52)
[2017-10-28] MEDS: TAMSULOSIN HCL 0.4 MG CAP.ER.24H (FP) PO SCH (09:59)
[2017-10-28] MEDS: PANTOPRAZOLE 40 MG TABLET (FP) PO SCH (09:59)
--- NOTE | 2017-10-28 10:17 | PN ---
Progress Note (short form) - Note Progress Note: PULMONARY Denies shortness of breath or chest pain. Last Vital Signs Temp Pulse Resp BP Pulse Ox 97 F L 93 H 18 127/55 95 10/28/17 08:29 10/28/17 08:29 10/28/17 08:30 10/28/17 08:29 10/28/17 08:30 Gen: NAD at rest Heart: RRR Lung: decreased breath sounds at the bases Abd: soft, nontender Ext: no edema, gangrenous left toes CBC, BMP 10/27/17 06:44 10/27/17 06:44 Active Medications Acetaminophen (Tylenol -) 650 mg PO Q6H PRN PRN Reason: PAIN OR FEVER Last Admin: 10/28/17 09:59 Dose: 650 mg Acetylcysteine (Mucomyst 20 Oral / Inh Use Only*) 200 mg NEB RQID [facility] Last Admin: 10/28/17 08:20 Dose: 200 mg Albuterol Sulfate (Ventolin 0.083% Nebulizer Soln -) 1 amp NEB RQID [facility] Last Admin: 10/28/17 08:20 Dose: 1 amp Amino Acids (Prosource No Carb Liquid Pkt) 30 ml NGT BID@0800,1730 [facility] Last Admin: 10/28/17 09:59 Dose: 30 ml Chlorhexidine Gluconate (Hibiclens For Decolonization -) 1 applic TP HS [facility] Last Admin: 10/27/17 21:06 Dose: Not Given Darbepoetin Trell (Aranesp -) 25 mcg SQ Q7D@1000 [facility] Diltiazem HCl (Cardizem Cd -) 120 mg PO BID [facility] Last Admin: 10/28/17 09:59 Dose: 120 mg Sodium Chloride (Normal Saline -) 1,000 mls @ 83 mls/hr IV ASDIR [facility] Stop: 10/28/17 12:14 Last Admin: 10/27/17 15:10 Dose: 83 mls/hr Insulin Aspart (Novolog Vial Sliding Scale -) 1 vial SQ HS [facility] PRN Reason: Protocol Last Admin: 10/27/17 21:51 Dose: 2 units Insulin Aspart (Novolog Vial Sliding Scale -) 1 vial SQ TIDAC [facility] PRN Reason: Protocol Last Admin: 10/28/17 06:25 Dose: Not Given Insulin Detemir (Levemir Vial) 10 units SQ HS [facility] Last Admin: 10/27/17 21:51 Dose: 10 units Metoprolol Tartrate (Lopressor Injection -) 5 mg IVPUSH Q4H PRN PRN Reason: TACHYCARDIA Nystatin (Nystatin Oral Suspension -) 500,000 units PO Q6HPO [facility] Last Admin: 10/28/17 05:44 Dose: 500,000 units Pantoprazole Sodium (Protonix -) 40 mg PO DAILY [facility] Last Admin: 10/28/17 09:59 Dose: 40 mg Tamsulosin HCl (Flomax -) 0.4 mg PO DAILY@0830 [facility] Last Admin: 10/28/17 09:59 Dose: 0.4 mg A/P Acute Hypoxic Respiratory Failure improving Pneumonia treated Septic Shock resolving Acute on Chronic Renal Failure requiring HD improving Lactic Acidosis resolved Diabetic Ketoacidosis resolved Paroxysmal Atrial Fibrillation with RVR GI bleed HTN DM COPD - monitor H/H - monitoring off antibiotics - IVF per renal - monitor urine output, creatinine - monitor I/Os - glucose control - rate control - holding anticoagulation due to GI bleed - taper FiO2 to keep SpO2 >90% - PO as tolerated - aspiration precautions - DVT/GI prophylaxis
--- NOTE | 2017-10-28 10:44 | PN ---
Progress Note (short form) - Note Progress Note: Chief Complaint: resp failure History of Present Illness: no cp, palps, dizziness, sob Current Medications Generic Name Dose Route Start Last Admin Trade Name Ty PRN Reason Stop Dose Admin Acetaminophen 650 mg 10/26/17 09:08 10/28/17 09:59 Tylenol - PO 650 mg Q6H PRN Administration PAIN OR FEVER Acetylcysteine 200 mg 10/25/17 12:00 10/28/17 08:20 Mucomyst 20 Oral / Inh Use Only* NEB 200 mg RQID SELVIN Administration Albuterol Sulfate 1 amp 10/25/17 12:00 10/28/17 08:20 Ventolin 0.083% Nebulizer Soln - NEB 1 amp RQID SELVIN Administration Amino Acids 30 ml 10/25/17 17:30 10/28/17 09:59 Prosource No Carb Liquid Pkt NGT 30 ml BID@0800,1730 [facility] Administration Chlorhexidine Gluconate 1 applic 10/25/17 22:00 10/27/17 21:06 Hibiclens For Decolonization - TP Not Given [facility] Darbepoetin Trell 25 mcg 10/29/17 10:00 Aranesp - SQ Q7D@1000 SELVIN Diltiazem HCl 120 mg 10/25/17 22:00 10/28/17 09:59 Cardizem Cd - PO 120 mg BID [facility]EL[facility]IN Administration Sodium Chloride 1,000 mls @ 83 mls/hr 10/27/17 12:15 10/27/17 15:10 Normal Saline - IV 10/28/17 12:14 83 mls/hr ASDIR SELVIN Administration Insulin Aspart 1 vial 10/25/17 22:00 10/27/17 21:51 Novolog Vial Sliding Scale - SQ 2 units HS [facility] Administration Protocol Insulin Aspart 1 vial 10/26/17 12:20 10/28/17 06:25 Novolog Vial Sliding Scale - SQ Not Given TIDAC [facility] Protocol Insulin Detemir 10 units 10/26/17 22:00 10/27/17 21:51 Levemir Vial SQ 10 units HS [facility] Administration Metoprolol Tartrate 5 mg 10/25/17 11:23 Lopressor Injection - IVPUSH Q4H PRN TACHYCARDIA Nystatin 500,000 units 10/25/17 12:00 10/28/17 05:44 Nystatin Oral Suspension - PO 500,000 units Q6HPO SEL[facility]IN Administration Pantoprazole Sodium 40 mg 10/26/17 10:00 10/28/17 09:59 Protonix - PO 40 mg DAILY [facility] Administration Tamsulosin HCl 0.4 mg 10/26/17 08:30 10/28/17 09:59 Flomax - PO 0.4 mg DAILY@0830 SEL[facility]IN Administration - Objective Vital Signs: Vital Signs Period Temp Pulse Resp BP Sys/Sy Pulse Ox Last 24 Hr 97 F-99.5 F 92-101 18-20 101-127/45-55 95-100 Constitutional: Yes: cachectic, No Distress, Calm Cardiovascular: Yes: Regular Rate and Rhythm. No: JVD (tds exam), Gallop, Murmur Respiratory: Yes: Regular,cta, nl effort Extremities: No: Cold Edema: No Neurological: Yes: Alert. No: Seizure Psychiatric: No: Agitated dimished dp/pt, gangrene of left foot. Labs: CBC, BMP 10/27/17 06:44 10/27/17 06:44 tele: SR EKG 10/03: sinus tach with atrial run. non-sp t wave ab. no ischemic changes. 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 diverticulosis, gastritis, esophagitis. cxr 10/26 (images, report reviewed): RLL consolidation with associated reactive right pleural effusion. cxr: still with congestive changes, with some infiltrative findings at right base with fluid. cxr 10/05: RLL consolidation and pleural fluid. cxr 10/08 improved aeration at right base. Echo 09/2017: tds. nl lv/rv size/fn. E, A reversal. mod-sev mac. + fn MS. 1 + mr/tr. nl rvsp. Echo 06/2017: mod lvh. nl lv fn. nl rv size/fn. 1+ lae. mod-sev mac with mod ms. 1+ mr. nl rvsp. 1+ ao dilation A/P 76 yo with pmhx of htn, hl, pad, afib (not on AC due to GIB), cva, copd, dm, mgus, esthesioneuroblastoma treated with radiation therapy, chronic anemia s/ p recent GIB admitted with dka, sepsis, resp failure. Hospital course now complicated by episode of afib with rvr afib - not previously a candidate for AC b/c of prior hx of GIB. remains anemic with melena here as well. - s/p IV amio. started po dilt 10/05. now back in sr. hr controlled. - off Amio, remains in sinus. BPs soft but tolerating diltiazem hi dose (90mg q6H)--continue same for now - change to cardizem CD regimen once bp's clearly out of the ngo as far as hypotension - hgb drifted down once ASA resumed--now d/c'd. not a candidate for AC at this time as risks of serious bleeding are > benefits - remains in SR, bp thus far tolerating diltiazem at present dose - 10/19: episode of bradycardia with intermittent dropped qrs complexes and runs of ventricular escape. Will decrease diltiazem to 60 mg q6h. Observe for recurrence of RVR. --> transitioned to long acting dilt (120 bid 10/23). - remains rate controlled/sr on dilt Vtach: - long run on tele of nonsustained WCT, HR around 100-110 bpm (suspect slow VT) - K/Mag both aggressively repleted--routine mgmt - rpt echo for LVEF (normal in 07/15) --> normal EF. will plan on trial of uptitration of dilt back to total daily dose of 360 mg once bp improves. Or add amio if bp/infection continues to limit uptitration. - cont tele mitral stenosis: - aggressive control of afib to prevent tachycardia CHF as doing - defer amio for now, may have to reconsider if recurrent rapid AF despite sepsis/PNA complete resolution anemia, GI bleeding: - ongoing UGIB here with stool guaiac + (iker hgb 6.1) - s/p PRBCs, last on 10/18 - counts stable - no cardiac contraindications to planned egd/foc. - s/p endoscopy 10/21 --> avm cauterized. htn - home meds changed to diltiazem here for PAF rate control - bp stable cva/pad - con't statin. - per pmd, previously not a candidate for asa due to recent gib and anemia. hgb drifting down on asa here, held again mild asc ao dilation - cont bp control SHANTA - renal following, no sig improvement --> initiated HD 10/07. - currently have been monitoring off HD. started on torsemide per renal --> stopped 10/26.
--- NOTE | 2017-10-28 11:31 | PN ---
Progress Note, RN CARDIOVASCULAR - Note Progress Note: Selected Entries 10/27/17 10/27/17 10/27/17 02:00 06:00 09:03 Breakfast Lunch Supper Temperature 97.8 F 97.8 F 98.4 F 10/27/17 10/27/17 10/27/17 16:11 18:00 19:00 Breakfast 50% Lunch 25% Supper 25% Temperature 98.6 F 98.1 F 10/27/17 10/28/17 10/28/17 22:00 01:59 05:00 Breakfast Lunch Supper Temperature 98.1 F 99.5 F 98.3 F 10/28/17 08:29 Breakfast Lunch Supper Temperature 97 F L Laboratory Tests 10/26/17 10/27/17 05:15 06:44 WBC 16.2 H D 13.1 H MBS reviewed with PMD and nursing. Consider: Dys puree, magic cup. Pt has IV. Hold all po liquids. Pt considering PEG insertion for hydration and possibly nutritional support in addition to pureed diet. WHEN STRONGER, Pt may benefit from swallowing tx and use of compensatory strategies in future to wean from Peg.
--- NOTE | 2017-10-28 14:08 | PN ---
Progress Note, Physician History of Present Illness: GI recalled for PEG placement evaluation. SSL assessment and recommendations noted. Discussed feeding tube insertion with the patient and do not feel he is currently alert enough to understand it. Will revisit him in the morning. Discussed with pt's over the phone. Continue current care. Aspiration precautions. - Current Medication List Current Medications: Active Medications Acetaminophen (Tylenol -) 650 mg PO Q6H PRN PRN Reason: PAIN OR FEVER Last Admin: 10/28/17 09:59 Dose: 650 mg Acetylcysteine (Mucomyst 20 Oral / Inh Use Only*) 200 mg NEB RQID [facility] Last Admin: 10/28/17 08:20 Dose: 200 mg Albuterol Sulfate (Ventolin 0.083% Nebulizer Soln -) 1 amp NEB RQID [facility] Last Admin: 10/28/17 08:20 Dose: 1 amp Amino Acids (Prosource No Carb Liquid Pkt) 30 ml NGT BID@0800,1730 [facility] Last Admin: 10/28/17 09:59 Dose: 30 ml Chlorhexidine Gluconate (Hibiclens For Decolonization -) 1 applic TP HS [facility] Last Admin: 10/27/17 21:06 Dose: Not Given Darbepoetin Trell (Aranesp -) 25 mcg SQ Q7D@1000 [facility] Diltiazem HCl (Cardizem Cd -) 120 mg PO BID [facility] Last Admin: 10/28/17 09:59 Dose: 120 mg Insulin Aspart (Novolog Vial Sliding Scale -) 1 vial SQ HS [facility] PRN Reason: Protocol Last Admin: 10/27/17 21:51 Dose: 2 units Insulin Aspart (Novolog Vial Sliding Scale -) 1 vial SQ TIDAC [facility] PRN Reason: Protocol Last Admin: 10/28/17 12:07 Dose: Not Given Insulin Detemir (Levemir Vial) 10 units SQ HS [facility] Last Admin: 10/27/17 21:51 Dose: 10 units Metoprolol Tartrate (Lopressor Injection -) 5 mg IVPUSH Q4H PRN PRN Reason: TACHYCARDIA Nystatin (Nystatin Oral Suspension -) 500,000 units PO Q6HPO [facility] Last Admin: 10/28/17 12:08 Dose: Not Given Pantoprazole Sodium (Protonix -) 40 mg PO DAILY [facility] Last Admin: 10/28/17 09:59 Dose: 40 mg Tamsulosin HCl (Flomax -) 0.4 mg PO DAILY@0830 [facility] Last Admin: 10/28/17 09:59 Dose: 0.4 mg - Objective Vital Signs: Vital Signs Temperature 97 F L 10/28/17 08:29 Pulse Rate 93 H 10/28/17 08:29 Respiratory Rate 18 10/28/17 08:30 Blood Pressure 127/55 10/28/17 08:29 O2 Sat by Pulse Oximetry (%) 96 10/28/17 10:00 Labs: CBC, BMP 10/27/17 06:44 10/27/17 06:44 INR, PTT INR 1.16 (0.82-1.09) H 10/15/17 05:46 Problem List - Problems (1) Angiectasia Code(s): I99.8 - OTHER DISORDER OF CIRCULATORY SYSTEM (2) AVM (arteriovenous malformation) of colon Code(s): Q27.33 - ARTERIOVENOUS MALFORMATION OF DIGESTIVE SYSTEM VESSEL (3) AVM (arteriovenous malformation) of colon with hemorrhage Code(s): Q27.33 - ARTERIOVENOUS MALFORMATION OF DIGESTIVE SYSTEM VESSEL (4) Afib Code(s): I48.91 - UNSPECIFIED ATRIAL FIBRILLATION (5) DKA (diabetic ketoacidoses) Code(s): E13.10 - OTH DIABETES MELLITUS WITH KETOACIDOSIS WITHOUT COMA (6) Ischemia of lower extremity Code(s): I99.8 - OTHER DISORDER OF CIRCULATORY SYSTEM
--- NOTE | 2017-10-28 14:36 | PN ---
Progress Note, Physician History of Present Illness: stable no new issues gangrenous toes - Current Medication List Current Medications: Active Medications Acetaminophen (Tylenol -) 650 mg PO Q6H PRN PRN Reason: PAIN OR FEVER Last Admin: 10/28/17 09:59 Dose: 650 mg Acetylcysteine (Mucomyst 20 Oral / Inh Use Only*) 200 mg NEB RQID [facility] Last Admin: 10/28/17 12:15 Dose: 200 mg Albuterol Sulfate (Ventolin 0.083% Nebulizer Soln -) 1 amp NEB RQID [facility] Last Admin: 10/28/17 12:15 Dose: 1 amp Amino Acids (Prosource No Carb Liquid Pkt) 30 ml NGT BID@0800,1730 [facility] Last Admin: 10/28/17 09:59 Dose: 30 ml Chlorhexidine Gluconate (Hibiclens For Decolonization -) 1 applic TP HS [facility] Last Admin: 10/27/17 21:06 Dose: Not Given Darbepoetin Trell (Aranesp -) 25 mcg SQ Q7D@1000 [facility] Diltiazem HCl (Cardizem Cd -) 120 mg PO BID [facility] Last Admin: 10/28/17 09:59 Dose: 120 mg Insulin Aspart (Novolog Vial Sliding Scale -) 1 vial SQ HS [facility] PRN Reason: Protocol Last Admin: 10/27/17 21:51 Dose: 2 units Insulin Aspart (Novolog Vial Sliding Scale -) 1 vial SQ TIDAC [facility] PRN Reason: Protocol Last Admin: 10/28/17 12:07 Dose: Not Given Insulin Detemir (Levemir Vial) 10 units SQ HS [facility] Last Admin: 10/27/17 21:51 Dose: 10 units Metoprolol Tartrate (Lopressor Injection -) 5 mg IVPUSH Q4H PRN PRN Reason: TACHYCARDIA Nystatin (Nystatin Oral Suspension -) 500,000 units PO Q6HPO [facility] Last Admin: 10/28/17 12:08 Dose: Not Given Pantoprazole Sodium (Protonix -) 40 mg PO DAILY [facility] Last Admin: 10/28/17 09:59 Dose: 40 mg Tamsulosin HCl (Flomax -) 0.4 mg PO DAILY@0830 [facility] Last Admin: 10/28/17 09:59 Dose: 0.4 mg - Objective Vital Signs: Vital Signs Temperature 97 F L 10/28/17 08:29 Pulse Rate 93 H 10/28/17 08:29 Respiratory Rate 18 10/28/17 08:30 Blood Pressure 127/55 10/28/17 08:29 O2 Sat by Pulse Oximetry (%) 96 10/28/17 10:00 Constitutional: Yes: No Distress, Calm HENT: Yes: Atraumatic Cardiovascular: Yes: Regular Rate and Rhythm, S1, S2 Respiratory: Yes: Regular, Poor Air Entry Gastrointestinal: Yes: Normal Bowel Sounds, Soft Musculoskeletal: Yes: WNL Extremities: Yes: WNL Integumentary: Yes: Other (gangrenous left toes) Neurological: Yes: Alert Psychiatric: Yes: Alert Labs: CBC, BMP 10/27/17 06:44 10/27/17 06:44 INR, PTT INR 1.16 (0.82-1.09) H 10/15/17 05:46 Assessment/Plan 76 year old male with a significant past medical history of COPD, GI bleed, diverticulosis, HLD, CVA, intussusception, umbilical hernia, DM, HTN, sinus cancer with excision and polypectomy Acute Hypoxic Respiratory Failure Pneumonia Septic Shock Acute on Chronic Renal Failure Lactic Acidosis Diabetic Ketoacidosis improving HTN DM COPD gluteal ulcer discoloration of the toes janene plan stable off of abx continue close monitoring nutrition nutrition physio
--- NOTE | 2017-10-28 15:11 | PN ---
Progress Note (short form) - Note Progress Note: Renal follow up for SHANTA Pt seen and examined at the bedside awake and alert but confused denies any sob, chest pain, abd pain, N/V/D making urine getting IVF Vital Signs Temperature 97 F L 10/28/17 08:29 Pulse Rate 93 H 10/28/17 08:29 Respiratory Rate 18 10/28/17 08:30 Blood Pressure 127/55 10/28/17 08:29 O2 Sat by Pulse Oximetry (%) 96 10/28/17 10:00 Intake & Output 10/25/17 10/26/17 10/27/17 10/28/17 23:59 23:59 23:59 23:59 Intake Total 600 148 912 3592 Output Total 1100 700 300 350 Balance -500 -430 260 750 Weight 48.943 kg 47.99 kg 48.625 kg NAD Dry MM RRR, No M/R CTA soft NT/ND No LE edema, clubbing or cyanosis heels in dressing CBC, BMP 10/27/17 06:44 10/27/17 06:44 Laboratory Tests 10/27/17 06:44 Calcium 8.3 L Phosphorus 5.5 H Magnesium 2.3 Albumin 1.7 L Current Medications Acetaminophen (Tylenol -) 650 mg PO Q6H PRN PRN Reason: PAIN OR FEVER Last Admin: 10/28/17 09:59 Dose: 650 mg Acetylcysteine (Mucomyst 20 Oral / Inh Use Only*) 200 mg NEB RQID [facility] Last Admin: 10/28/17 12:15 Dose: 200 mg Albuterol Sulfate (Ventolin 0.083% Nebulizer Soln -) 1 amp NEB RQID [facility] Last Admin: 10/28/17 12:15 Dose: 1 amp Amino Acids (Prosource No Carb Liquid Pkt) 30 ml NGT BID@0800,1730 [facility] Last Admin: 10/28/17 09:59 Dose: 30 ml Chlorhexidine Gluconate (Hibiclens For Decolonization -) 1 applic TP HS [facility] Last Admin: 10/27/17 21:06 Dose: Not Given Darbepoetin Trell (Aranesp -) 25 mcg SQ Q7D@1000 [facility] Diltiazem HCl (Cardizem Cd -) 120 mg PO BID [facility] Last Admin: 10/28/17 09:59 Dose: 120 mg Insulin Aspart (Novolog Vial Sliding Scale -) 1 vial SQ HS [facility] PRN Reason: Protocol Last Admin: 10/27/17 21:51 Dose: 2 units Insulin Aspart (Novolog Vial Sliding Scale -) 1 vial SQ TIDAC [facility] PRN Reason: Protocol Last Admin: 10/28/17 12:07 Dose: Not Given Insulin Detemir (Levemir Vial) 10 units SQ HS [facility] Last Admin: 10/27/17 21:51 Dose: 10 units Metoprolol Tartrate (Lopressor Injection -) 5 mg IVPUSH Q4H PRN PRN Reason: TACHYCARDIA Nystatin (Nystatin Oral Suspension -) 500,000 units PO Q6HPO [facility] Last Admin: 10/28/17 12:08 Dose: Not Given Pantoprazole Sodium (Protonix -) 40 mg PO DAILY [facility] Last Admin: 10/28/17 09:59 Dose: 40 mg Tamsulosin HCl (Flomax -) 0.4 mg PO DAILY@0830 [facility] Last Admin: 10/28/17 09:59 Dose: 0.4 mg 76 year old male with a significant past medical history of COPD, GI bleed, diverticulosis, HLD, CVA, intussusception, umbilical hernia, DM, HTN, sinus cancer with excision and polypectomy who presents to the ED, accompanied by , s/p high blood sugar levels earlier today. #SHANTA on CKD likely due to ATN in setting of sepsis that required [employer] #Sepsis/PNA #Anemia/GI bleed #Hx of Hypertension #DM on Insulin #Hyperphosphatemia in setting of renal injury Renal function continues to worsen depite starting IVF yesterday pt continues to appear volume depleted so will continue isotonic saline check urine studies for FeNa, FeUrea hold diuretics for now, no RICARDO/ARB no urgent indication for [employer] but if renal function continues to worsen he may warrant additional dialysis dose all meds for CrCl less then 15 Tomás Al DO
[2017-10-28] MEDS ORDERED: INSULIN (NOVOLOG) ASPART 100 UNITS/ML 10ML VIAL ONE (18:06)
[2017-10-28] MEDS: CHLORHEXIDINE GLUCONATE 4% CLEANSER FOR DECOLONIZATION TP SCH (22:35)
[2017-10-28] MEDS: INSULIN (LEVEMIR) 100 UNITS/ML UNITS SQ SCH (22:36)
[2017-10-29] MEDS: NYSTATIN 500,000 UNITS/5 ML SUSPENSION PO SCH ×4 (00:43→18:47)
[2017-10-29] MEDS: INSULIN (LEVEMIR) 100 UNITS/ML UNITS SQ SCH ×2 (06:31→22:09)
[2017-10-29] MEDS: INSULIN SLIDING SCALE (NOVOLOG) 1 VIAL SQ SCH ×5 (06:32→22:09)
[2017-10-29] MEDS ORDERED: DEXTROSE 10%-WATER - 1,000 ML IV SCH (06:45)
--- NOTE | 2017-10-29 06:48 | HOSP ---
Subjective - Review of Symptoms Events since last encounter: Hospitalist Encounter Notified by RN that the patient's FS is 62 Plan: - D50 / amp now - Repeat FS 30 minutes Physical Examination Vital Signs: Vital Signs Temperature 98.1 F 10/29/17 01:00 Pulse Rate 96 H 10/29/17 01:00 Respiratory Rate 20 10/29/17 01:00 Blood Pressure 135/51 10/29/17 01:00 O2 Sat by Pulse Oximetry (%) 94 L 10/28/17 22:00 Labs: Laboratory Results - last 24 hr 10/28/17 10/29/17 10/29/17 17:21 03:00 06:30 POC Glucometer 389 200 63 Current Medications Generic Name Dose Route Start Last Admin Trade Name Freq PRN Reason Stop Dose Admin Acetaminophen 650 mg 10/26/17 09:08 10/28/17 09:59 Tylenol - PO 650 mg Q6H PRN Administration PAIN OR FEVER Acetylcysteine 200 mg 10/25/17 12:00 10/28/17 20:40 Mucomyst 20 Oral / Inh Use Only* NEB 200 mg RQID [facility] Administration Albuterol Sulfate 1 amp 10/25/17 12:00 10/28/17 20:40 Ventolin 0.083% Nebulizer Soln - NEB 1 amp RQID [facility] Administration Amino Acids 30 ml 10/25/17 17:30 10/28/17 19:52 Prosource No Carb Liquid Pkt NGT Not Given BID@0800,1730 [facility] Chlorhexidine Gluconate 1 applic 10/25/17 22:00 10/28/17 22:35 Hibiclens For Decolonization - TP Not Given HS [facility] Darbepoetin Trell 25 mcg 10/29/17 10:00 Aranesp - SQ Q7D@1000 [facility] Dextrose 12.5 gm 10/29/17 06:56 D50w (Vial) - IVPUSH 10/29/17 06:57 NOW ONE Diltiazem HCl 120 mg 10/25/17 22:00 10/28/17 22:39 Cardizem Cd - PO 120 mg BID [facility] Administration Insulin Aspart 1 vial 10/25/17 22:00 10/28/17 22:36 Novolog Vial Sliding Scale - SQ 5 units HS [facility] Administration Protocol Insulin Aspart 1 vial 10/26/17 12:20 10/29/17 06:32 Novolog Vial Sliding Scale - SQ Not Given TIDAC [facility] Protocol Insulin Detemir 10 units 10/29/17 07:00 10/29/17 06:31 Levemir Vial SQ Not Given BID@0700,2200 [facility] Metoprolol Tartrate 5 mg 10/25/17 11:23 Lopressor Injection - IVPUSH Q4H PRN TACHYCARDIA Nystatin 500,000 units 10/25/17 12:00 10/29/17 06:29 Nystatin Oral Suspension - PO Not Given Q6HPO [facility] Pantoprazole Sodium 40 mg 10/26/17 10:00 10/28/17 09:59 Protonix - PO 40 mg DAILY [facility] Administration Tamsulosin HCl 0.4 mg 10/26/17 08:30 10/28/17 09:59 Flomax - PO 0.4 mg DAILY@0830 [facility] Administration
[2017-10-29] MEDS ORDERED: DEXTROSE 50%-WATER - 25 GM/50 ML VIAL IVPUSH ONE (06:56)
[2017-10-29 07:02] LABS: INR 1.04 (0.82-1.09); PROTHROMBIN TIME (PATIENT) 11.8 SEC (9.7-13.0)
[2017-10-29] MEDS ORDERED: DEXTROSE 50%-WATER 25 GM/50 ML DISP.SYRIN ONE (07:10)
[2017-10-29 07:24] LABS: BASO % 0.8 % (0-2.0); EOS % 0.6 % (0-4.5); HEMATOCRIT 23.3 % (35.4-49); HEMOGLOBIN 7.6 GM/dL (11.7-16.9); LYMPH % 4.6 % (8-40); MCH 30.2 pg (25.7-33.7); MCHC 32.5 g/dl (32.0-35.9); MEAN CELL VOLUME 93.1 fl (80-96); MEAN PLT VOLUME 8.3 fl (7.5-11.1); PLATELET COUNT 363 K/MM3 (134-434); RDW 15.3 % (11.9-15.9); WHITE BLOOD COUNT 14.2 K/mm3 (4.0-10.0)
[2017-10-29 07:29] LABS: CALCIUM 7.9 mg/dL (8.5-10.1); CHLORIDE 110 mmol/L (98-107); SODIUM 148 mmol/L (136-145)
[2017-10-29 07:33] LABS: ANION GAP 10 (8-16); BLOOD UREA NITROGEN 101 mg/dL (7-18); CO2 28 mmol/L (21-32); CREATININE 4.5 mg/dL (0.7-1.3); GLUCOSE,RANDOM 58 mg/dL (74-106); MAGNESIUM 2.2 mg/dL (1.8-2.4); PHOSPHOROUS 4.7 mg/dL (2.5-4.9)
[2017-10-29] MEDS: ACETYLCYSTEINE 20% 200MG/ML 4 ML VIAL *FOR ORAL / INH USE ONLY NEB SCH ×4 (07:43→20:27)
[2017-10-29] MEDS: ALBUTEROL SO4 0.083% IH SOL 2.5 MG/3 ML VIAL.NEB. NEB SCH ×4 (07:44→20:27)
--- NOTE | 2017-10-29 09:45 | PN ---
Progress Note (short form) - Note Progress Note: Patient seen and examined this AM. Will say a few words but lethargic. Sensitive to touch which he says is uncomforable when arms and legs are examined. Bun over 100 and Creatinine 4.5. Hemoglobin down to 7.6GM ON IV RX but he is more congested. Overall I asked him if we should concentrate on comfort care and not PEG placement and dialysis.He seemed to focus for a second or two then closed his eyes. I think we should just pursue comfort care /[facility] [place]. Will speak to . On Exam: Vital Signs Temp 98.1 F 10/29/17 06:00 Pulse 93 H 10/29/17 06:00 Resp 20 10/29/17 06:00 BP 136/56 10/29/17 06:00 Pulse Ox 94 L 10/29/17 09:00 Intake & Output 10/28/17 10/28/17 10/29/17 11:59 23:59 11:59 Intake Total 1100 664 913 Output Total 350 Balance 750 664 913 Weight 107 lb 3.2 oz 107 lb Intake: IV 1000 664 913 Normal Saline - 1,000 ml 1000 664 913 @ 83 mls/hr IV ASDIR SELVIN Rx#:[id number] Oral 100 Output: Urine 350 Void 350 Other: Voiding Method Urinal Diaper Diaper Weight Measurement Method Patient Lift Scale Patient Lift Scale Lethargic Chest: Bilateral Rhonchi Cor: tachycardia Ext: Diaz edema Gangrenous changes similar to previous exam on left foot toes Abnormal Lab Results 10/29/17 10/29/17 06:30 06:30 WBC 14.2 H RBC 2.50 L Hgb 7.6 L Hct 23.3 L Neutrophils % 89.0 H Lymphocytes % 4.6 L D Sodium 148 H Chloride 110 H D BUN 101 H Creatinine 4.5 H Random Glucose 58 L D Calcium 7.9 L IMP: Acute on Chronic renal Failure Acute UTI Sepsis with Pneumonia Uncontrolled DM Pharyngeal Ca with RT Rx. Acute Blood Loss Anemia GI Bleed lethargy; possible hypoactive delirium PVD with Gangrene toes left foot DNR/DNI PLAN: Revisit ID on new UTI Speak to Re: Decisions for ? Dialysis ? Blood Transfusion ? Comfort care Patient does NOT have medical decision making capacity at this time.
[2017-10-29] MEDS ORDERED: Darbepoetin Alfa in Polysorbat 25 MCG/0.4 ML DISP.SYRIN SQ SCH (10:00)
--- NOTE | 2017-10-29 11:17 | PN ---
Progress Note, Physician History of Present Illness: pulmonary lethargic,comfortable,-resp distress - Current Medication List Current Medications: Active Medications Acetaminophen (Tylenol -) 650 mg PO Q6H PRN PRN Reason: PAIN OR FEVER Last Admin: 10/28/17 09:59 Dose: 650 mg Acetylcysteine (Mucomyst 20 Oral / Inh Use Only*) 200 mg NEB RQID [facility] Last Admin: 10/29/17 07:43 Dose: 200 mg Albuterol Sulfate (Ventolin 0.083% Nebulizer Soln -) 1 amp NEB RQID [facility] Last Admin: 10/29/17 07:44 Dose: 1 amp Amino Acids (Prosource No Carb Liquid Pkt) 30 ml NGT BID@0800,1730 [facility] Last Admin: 10/28/17 19:52 Dose: Not Given Chlorhexidine Gluconate (Hibiclens For Decolonization -) 1 applic TP HS [facility] Last Admin: 10/28/17 22:35 Dose: Not Given Darbepoetin Trell (Aranesp -) 25 mcg SQ Q7D@1000 [facility] Diltiazem HCl (Cardizem Cd -) 120 mg PO BID [facility] Last Admin: 10/28/17 22:39 Dose: 120 mg Insulin Aspart (Novolog Vial Sliding Scale -) 1 vial SQ [facility] PRN Reason: Protocol Last Admin: 10/28/17 22:36 Dose: 5 units Insulin Aspart (Novolog Vial Sliding Scale -) 1 vial SQ TIDAC [facility] PRN Reason: Protocol Last Admin: 10/29/17 06:32 Dose: Not Given Insulin Detemir (Levemir Vial) 10 units SQ BID@0700,2200 [facility] Last Admin: 10/29/17 06:31 Dose: Not Given Metoprolol Tartrate (Lopressor Injection -) 5 mg IVPUSH Q4H PRN PRN Reason: TACHYCARDIA Nystatin (Nystatin Oral Suspension -) 500,000 units PO Q6HPO [facility] Last Admin: 10/29/17 06:29 Dose: Not Given Pantoprazole Sodium (Protonix -) 40 mg PO DAILY [facility] Last Admin: 10/28/17 09:59 Dose: 40 mg Tamsulosin HCl (Flomax -) 0.4 mg PO DAILY@0830 [facility] Last Admin: 10/28/17 09:59 Dose: 0.4 mg - Objective Vital Signs: Vital Signs Temperature 98.1 F 10/29/17 06:00 Pulse Rate 93 H 10/29/17 06:00 Respiratory Rate 20 10/29/17 06:00 Blood Pressure 136/56 10/29/17 06:00 O2 Sat by Pulse Oximetry (%) 94 L 10/29/17 09:00 Constitutional: Yes: Calm, Thin Eyes: Yes: WNL HENT: Yes: WNL Neck: Yes: WNL Cardiovascular: Yes: Pulse Irregular, S1, S2 Respiratory: Yes: Rhonchi (scattered rhonchi) Gastrointestinal: Yes: Normal Bowel Sounds, Soft Extremities: Yes: WNL Edema: No Labs: CBC, BMP 10/29/17 06:30 10/29/17 06:30 INR, PTT INR 1.04 (0.82-1.09) 10/29/17 06:30 Problem List - Problems (1) Acute respiratory failure Code(s): J96.00 - ACUTE RESPIRATORY FAILURE, UNSP W HYPOXIA OR HYPERCAPNIA (2) Septic shock Code(s): A41.9 - SEPSIS, UNSPECIFIED ORGANISM; R65.21 - SEVERE SEPSIS WITH SEPTIC SHOCK (3) Diabetes mellitus Code(s): E11.9 - TYPE 2 DIABETES MELLITUS WITHOUT COMPLICATIONS (4) Hospital-acquired pneumonia Code(s): J18.9 - PNEUMONIA, UNSPECIFIED ORGANISM (5) CKD (chronic kidney disease) stage 3, GFR 30-59 ml/min Code(s): N18.3 - CHRONIC KIDNEY DISEASE, STAGE 3 (MODERATE) (6) Hyperlipidemia Code(s): E78.5 - HYPERLIPIDEMIA, UNSPECIFIED (7) Hypertension Code(s): I10 - ESSENTIAL (PRIMARY) HYPERTENSION Qualifiers: Hypertension type: essential hypertension Qualified Code(s): I10 - Essential (primary) hypertension (8) Afib Code(s): I48.91 - UNSPECIFIED ATRIAL FIBRILLATION Assessment/Plan ASSESSMENT AND PLAN: Acute Hypoxic Respiratory Failure improving Pneumonia clinically improving Septic Shock resolving Acute on Chronic Renal Failure requiring HD improving Lactic Acidosis resolved Diabetic Ketoacidosis resolved Paroxysmal Atrial Fibrillation with RVR GI bleed HTN DM COPD ANEMIA - inhaled bronchodilators -monitor H/H - HD per renal - monitor urine output, creatinine - monitor I/Os - glucose control - rate control - taper FiO2 to keep SpO2 >90% - PO as tolerated - aspiration precautions - rehab/PT - DVT/GI prophylaxis DR RENDON
--- NOTE | 2017-10-29 11:42 | PN ---
Progress Note (short form) - Note Progress Note: Chief Complaint: resp failure History of Present Illness: no cp, palps, dizziness, sob Current Medications Generic Name Dose Route Start Last Admin Trade Name Freq PRN Reason Stop Dose Admin Acetaminophen 650 mg 10/26/17 09:08 10/28/17 09:59 Tylenol - PO 650 mg Q6H PRN Administration PAIN OR FEVER Acetylcysteine 200 mg 10/25/17 12:00 10/29/17 07:43 Mucomyst 20 Oral / Inh Use Only* NEB 200 mg RQID [facility] Administration Albuterol Sulfate 1 amp 10/25/17 12:00 10/29/17 07:44 Ventolin 0.083% Nebulizer Soln - NEB 1 amp RQID [facility] Administration Amino Acids 30 ml 10/25/17 17:30 10/28/17 19:52 Prosource No Carb Liquid Pkt NGT Not Given BID@0800,1730 [facility] Chlorhexidine Gluconate 1 applic 10/25/17 22:00 10/28/17 22:35 Hibiclens For Decolonization - TP Not Given HS [facility] Darbepoetin Trell 25 mcg 10/29/17 10:00 Aranesp - SQ Q7D@1000 [facility] Diltiazem HCl 120 mg 10/25/17 22:00 10/28/17 22:39 Cardizem Cd - PO 120 mg BID [facility] Administration Insulin Aspart 1 vial 10/25/17 22:00 10/28/17 22:36 Novolog Vial Sliding Scale - SQ 5 units HS [facility] Administration Protocol Insulin Aspart 1 vial 10/26/17 12:20 10/29/17 06:32 Novolog Vial Sliding Scale - SQ Not Given TIDAC [facility] Protocol Insulin Detemir 10 units 10/29/17 07:00 10/29/17 06:31 Levemir Vial SQ Not Given BID@0700,2200 [facility] Metoprolol Tartrate 5 mg 10/25/17 11:23 Lopressor Injection - IVPUSH Q4H PRN TACHYCARDIA Nystatin 500,000 units 10/25/17 12:00 10/29/17 06:29 Nystatin Oral Suspension - PO Not Given Q6HPO [facility] Pantoprazole Sodium 40 mg 10/26/17 10:00 10/28/17 09:59 Protonix - PO 40 mg DAILY [facility] Administration Tamsulosin HCl 0.4 mg 10/26/17 08:30 10/28/17 09:59 Flomax - PO 0.4 mg DAILY@0830 [facility] Administration - Objective Vital Signs: Vital Signs Period Temp Pulse Resp BP Sys/Sy Pulse Ox Last 24 Hr 97.8 F-98.2 F 93-96 20-20 110-136/51-56 94-94 Constitutional: Yes: cachectic, No Distress, Calm Cardiovascular: Yes: Regular Rate and Rhythm. No: JVD (tds exam), Gallop, Murmur Respiratory: Yes: Regular,cta, nl effort Extremities: No: Cold Edema: No Neurological: Yes: Alert. No: Seizure Psychiatric: No: Agitated dimished dp/pt, gangrene of left foot. Labs: CBC, BMP 10/29/17 06:30 10/29/17 06:30 tele: SR EKG 10/03: sinus tach with atrial run. non-sp t wave ab. no ischemic changes. 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 diverticulosis, gastritis, esophagitis. cxr 10/26 (images, report reviewed): RLL consolidation with associated reactive right pleural effusion. cxr: still with congestive changes, with some infiltrative findings at right base with fluid. cxr 10/05: RLL consolidation and pleural fluid. cxr 10/08 improved aeration at right base. Echo 09/2017: tds. nl lv/rv size/fn. E, A reversal. mod-sev mac. + fn MS. 1 + mr/tr. nl rvsp. Echo 06/2017: mod lvh. nl lv fn. nl rv size/fn. 1+ lae. mod-sev mac with mod ms. 1+ mr. nl rvsp. 1+ ao dilation A/P 76 yo with pmhx of htn, hl, pad, afib (not on AC due to GIB), cva, copd, dm, mgus, esthesioneuroblastoma treated with radiation therapy, chronic anemia s/ p recent GIB admitted with dka, sepsis, resp failure. Hospital course now complicated by episode of afib with rvr afib - not previously a candidate for AC b/c of prior hx of GIB. remains anemic with melena here as well. - s/p IV amio. started po dilt 10/05. now back in sr. hr controlled. - off Amio, remains in sinus. BPs soft but tolerating diltiazem hi dose (90mg q6H)--continue same for now - change to cardizem CD regimen once bp's clearly out of the ngo as far as hypotension - hgb drifted down once ASA resumed--now d/c'd. not a candidate for AC at this time as risks of serious bleeding are > benefits - remains in SR, bp thus far tolerating diltiazem at present dose - 10/19: episode of bradycardia with intermittent dropped qrs complexes and runs of ventricular escape. Will decrease diltiazem to 60 mg q6h. Observe for recurrence of RVR. --> transitioned to long acting dilt (120 bid 10/23). - remains rate controlled/sr on dilt Vtach: - long run on tele of nonsustained WCT, HR around 100-110 bpm (suspect slow VT) - K/Mag both aggressively repleted--routine mgmt - rpt echo for LVEF (normal in 07/15) --> normal EF. will plan on trial of uptitration of dilt back to total daily dose of 360 mg once bp improves. Or add amio if bp/infection continues to limit uptitration. - cont tele mitral stenosis: - aggressive control of afib to prevent tachycardia CHF as doing - defer amio for now, may have to reconsider if recurrent rapid AF despite sepsis/PNA complete resolution anemia, GI bleeding: - ongoing UGIB here with stool guaiac + (kier hgb 6.1) - s/p PRBCs, last on 10/18 - counts stable - no cardiac contraindications to planned egd/foc. - s/p endoscopy 10/21 --> avm cauterized. htn - home meds changed to diltiazem here for PAF rate control - bp stable cva/pad - con't statin. - per pmd, previously not a candidate for asa due to recent gib and anemia. hgb drifting down on asa here, held again mild asc ao dilation - cont bp control SHANTA - renal following, no sig improvement --> initiated HD 10/07. - currently have been monitoring off HD. started on torsemide per renal --> stopped 10/26.
[2017-10-29] MEDS: AMINO ACIDS/PROTEIN HYDROLYS 30 ML LIQUID.PKT NGT SCH ×2 (12:39→18:46)
[2017-10-29] MEDS: TAMSULOSIN HCL 0.4 MG CAP.ER.24H (FP) PO SCH (12:40)
[2017-10-29] MEDS: PANTOPRAZOLE 40 MG TABLET (FP) PO SCH (12:40)
[2017-10-29] MEDS ORDERED: HALOPERIDOL 1 MG TABLET (FP) PO ONE (13:45)
--- NOTE | 2017-10-29 14:09 | PN ---
Progress Note (short form) - Note Progress Note: Renal follow up for SHANTA Pt seen and examined at the bedside awake and alert agigtated and mildy confused requesting soda but pt is not able to tolerate liquids denies any pain or sob Vital Signs Temperature 98.1 F 10/29/17 06:00 Pulse Rate 98 H 10/29/17 12:10 Respiratory Rate 22 10/29/17 12:10 Blood Pressure 127/52 10/29/17 12:10 O2 Sat by Pulse Oximetry (%) 94 L 10/29/17 09:00 Intake & Output 10/26/17 10/27/17 10/28/17 10/29/17 23:59 23:59 23:59 23:59 Intake Total 011 124 2978 913 Output Total 700 300 350 Balance -277 726 0239 913 Weight 47.99 kg 48.625 kg 48.534 kg NAD Dry MM RRR, No M/R CTA soft NT/ND No LE edema, clubbing or cyanosis heels in dressing CBC, BMP 10/29/17 06:30 10/29/17 06:30 Current Medications Acetaminophen (Tylenol -) 650 mg PO Q6H PRN PRN Reason: PAIN OR FEVER Last Admin: 10/28/17 09:59 Dose: 650 mg Acetylcysteine (Mucomyst 20 Oral / Inh Use Only*) 200 mg NEB RQID [facility] BEDS AT [facility] Last Admin: 10/29/17 12:10 Dose: 200 mg Albuterol Sulfate (Ventolin 0.083% Nebulizer Soln -) 1 amp NEB RQID [facility] 234 BEDS AT [facility] Last Admin: 10/29/17 12:10 Dose: 1 amp Amino Acids (Prosource No Carb Liquid Pkt) 30 ml NGT BID@0800,1730 [facility]S [facility] Last Admin: 10/29/17 12:39 Dose: Not Given Chlorhexidine Gluconate (Hibiclens For Decolonization -) 1 applic TP HS [facility]S [facility] Last Admin: 10/28/17 22:35 Dose: Not Given Darbepoetin Trell (Aranesp -) 25 mcg SQ Q7D@1000 [facility]S [facility] Diltiazem HCl (Cardizem Cd -) 120 mg PO BID [facility]S AT [facility] Last Admin: 10/29/17 12:40 Dose: 120 mg Haloperidol (Haldol -) 1 mg PO Q4H PRN PRN Reason: AGITATION Amino Acids (Clinimix -) 1,000 mls @ 42 mls/hr IV Q23H [facility]S [facility]CLUDE 234 BEDS AT [facility] Insulin Aspart (Novolog Vial Sliding Scale -) 1 vial SQ HS [facility]S [facility] PRN Reason: Protocol Last Admin: 10/28/17 22:36 Dose: 5 units Insulin Aspart (Novolog Vial Sliding Scale -) 1 vial SQ TIDAC [facility] PRN Reason: Protocol Last Admin: 10/29/17 06:32 Dose: Not Given Insulin Detemir (Levemir Vial) 10 units SQ BID@0700,2200 [facility] 234 BEDS [facility] Last Admin: 10/29/17 06:31 Dose: Not Given Metoprolol Tartrate (Lopressor Injection -) 5 mg IVPUSH Q4H PRN PRN Reason: TACHYCARDIA Nystatin (Nystatin Oral Suspension -) 500,000 units PO Q6HPO [facility]S [facility] 234 BEDS AT [facility] Last Admin: 10/29/17 06:29 Dose: Not Given Pantoprazole Sodium (Protonix -) 40 mg PO DAILY [facility] 234 BEDS [facility] Last Admin: 10/29/17 12:40 Dose: 40 mg Tamsulosin HCl (Flomax -) 0.4 mg PO DAILY@0830 [facility] 234 BEDS [facility] Last Admin: 10/29/17 12:40 Dose: 0.4 mg 76 year old male with a significant past medical history of COPD, GI bleed, diverticulosis, HLD, CVA, intussusception, umbilical hernia, DM, HTN, sinus cancer with excision and polypectomy who presents to the ED, accompanied by , s/p high blood sugar levels earlier today. 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
--- NOTE | 2017-10-29 15:15 | PN ---
Progress Note, Physician History of Present Illness: plans for comfort care d/w with nursing staff wants abx patients urine is positive for pseudomoas - Current Medication List Current Medications: Active Medications Acetaminophen (Tylenol -) 650 mg PO Q6H PRN PRN Reason: PAIN OR FEVER Last Admin: 10/28/17 09:59 Dose: 650 mg Acetylcysteine (Mucomyst 20 Oral / Inh Use Only*) 200 mg NEB RQID [facility] Last Admin: 10/29/17 12:10 Dose: 200 mg Albuterol Sulfate (Ventolin 0.083% Nebulizer Soln -) 1 amp NEB RQID [facility] Last Admin: 10/29/17 12:10 Dose: 1 amp Amino Acids (Prosource No Carb Liquid Pkt) 30 ml NGT BID@0800,1730 [facility] Last Admin: 10/29/17 12:39 Dose: Not Given Chlorhexidine Gluconate (Hibiclens For Decolonization -) 1 applic TP [facility] Last Admin: 10/28/17 22:35 Dose: Not Given Darbepoetin Trell (Aranesp -) 25 mcg SQ Q7D@1000 [facility] Diltiazem HCl (Cardizem Cd -) 120 mg PO BID [facility] Last Admin: 10/29/17 12:40 Dose: 120 mg Haloperidol (Haldol -) 1 mg PO Q4H PRN PRN Reason: AGITATION Amino Acids (Clinimix -) 1,000 mls @ 42 mls/hr IV Q23H [facility] Piperacillin Sod/Tazobactam (Sod 2.25 gm/ Dextrose) 50 mls @ 100 mls/hr IVPB Q8H-IV [facility] PRN Reason: Protocol Insulin Aspart (Novolog Vial Sliding Scale -) 1 vial SQ HS [facility] PRN Reason: Protocol Last Admin: 10/28/17 22:36 Dose: 5 units Insulin Aspart (Novolog Vial Sliding Scale -) 1 vial SQ TIDAC [facility] PRN Reason: Protocol Last Admin: 10/29/17 06:32 Dose: Not Given Insulin Detemir (Levemir Vial) 10 units SQ BID@0700,2200 [facility] Last Admin: 10/29/17 06:31 Dose: Not Given Metoprolol Tartrate (Lopressor Injection -) 5 mg IVPUSH Q4H PRN PRN Reason: TACHYCARDIA Nystatin (Nystatin Oral Suspension -) 500,000 units PO Q6HPO [facility] Last Admin: 10/29/17 06:29 Dose: Not Given Pantoprazole Sodium (Protonix -) 40 mg PO DAILY [facility] Last Admin: 10/29/17 12:40 Dose: 40 mg Tamsulosin HCl (Flomax -) 0.4 mg PO DAILY@0830 [facility] Last Admin: 10/29/17 12:40 Dose: 0.4 mg - Objective Vital Signs: Vital Signs Temperature 98.1 F 10/29/17 06:00 Pulse Rate 98 H 10/29/17 12:10 Respiratory Rate 22 10/29/17 12:10 Blood Pressure 127/52 10/29/17 12:10 O2 Sat by Pulse Oximetry (%) 94 L 10/29/17 09:00 Constitutional: Yes: Calm, Mild Distress Cardiovascular: Yes: Regular Rate and Rhythm Respiratory: Yes: Regular, Poor Air Entry, Other Gastrointestinal: Yes: Normal Bowel Sounds, Soft Musculoskeletal: Yes: WNL Extremities: Yes: WNL Neurological: Yes: Alert Psychiatric: Yes: Alert Labs: CBC, BMP 10/29/17 06:30 10/29/17 06:30 INR, PTT INR 1.04 (0.82-1.09) 10/29/17 06:30 Assessment/Plan 76 year old male with a significant past medical history of COPD, GI bleed, diverticulosis, HLD, CVA, intussusception, umbilical hernia, DM, HTN, sinus cancer with excision and polypectomy Acute Hypoxic Respiratory Failure Pneumonia Septic Shock Acute on Chronic Renal Failure Lactic Acidosis Diabetic Ketoacidosis improving HTN DM COPD gluteal ulcer discoloration of the toes janene plan i have started patient on zosyn as his wbc has increased and patient more confused patient needs to continue on zosyn for couple of days nutrition hydration
--- NOTE | 2017-10-29 15:33 | PN ---
Progress Note (short form) - Note Progress Note: Plans for comfort care noted. Please reconsult GI as needed. Problem List - Problems (1) Angiectasia Code(s): I99.8 - OTHER DISORDER OF CIRCULATORY SYSTEM (2) AVM (arteriovenous malformation) of colon Code(s): Q27.33 - ARTERIOVENOUS MALFORMATION OF DIGESTIVE SYSTEM VESSEL (3) AVM (arteriovenous malformation) of colon with hemorrhage Code(s): Q27.33 - ARTERIOVENOUS MALFORMATION OF DIGESTIVE SYSTEM VESSEL (4) Afib Code(s): I48.91 - UNSPECIFIED ATRIAL FIBRILLATION (5) DKA (diabetic ketoacidoses) Code(s): E13.10 - OTH DIABETES MELLITUS WITH KETOACIDOSIS WITHOUT COMA (6) Ischemia of lower extremity Code(s): I99.8 - OTHER DISORDER OF CIRCULATORY SYSTEM
[2017-10-29] MEDS: AMINO ACIDS 4.25%/D5W 1,000 ML IV SCH (16:31)
[2017-10-29] MEDS ORDERED: PIPERACILLIN/TAZOBACTAM 2.25 GM VIAL IVPB ONE (18:44)
[2017-10-29] MEDS ORDERED: INSULIN (NOVOLOG) ASPART 100 UNITS/ML 10ML VIAL ONE (18:44)
[2017-10-29] MEDS ORDERED: DEXTROSE 5%-WATER - 50 ML IVPB ONE (18:44)
[2017-10-29] MEDS: PIPERACILLIN/TAZOB 2.25 GM 2.25 GM in DEXTROSE 5%-WATER - 50 ML IVPB SCH ×2 (18:46→19:00)
[2017-10-29] MEDS: HALOPERIDOL 1 MG TABLET (FP) PO PRN (22:04)
[2017-10-29] MEDS: CHLORHEXIDINE GLUCONATE 4% CLEANSER FOR DECOLONIZATION TP SCH (22:09)
[2017-10-30] MEDS: NYSTATIN 500,000 UNITS/5 ML SUSPENSION PO SCH ×4 (00:30→18:47)
[2017-10-30] MEDS ORDERED: PIPERACILLIN/TAZOBACTAM 2.25 GM VIAL IVPB ONE ×3 (01:14→18:11)
[2017-10-30] MEDS ORDERED: DEXTROSE 5%-WATER - 50 ML IVPB ONE ×3 (01:14→18:11)
[2017-10-30] MEDS: PIPERACILLIN/TAZOB 2.25 GM 2.25 GM in DEXTROSE 5%-WATER - 50 ML IVPB SCH ×3 (01:29→18:53)
[2017-10-30] MEDS: INSULIN SLIDING SCALE (NOVOLOG) 1 VIAL SQ SCH ×4 (06:44→21:36)
[2017-10-30] MEDS: INSULIN (LEVEMIR) 100 UNITS/ML UNITS SQ SCH ×2 (06:44→21:37)
[2017-10-30] MEDS ORDERED: PT OWN MED DRAWER 7, Y5N ONE (07:17)
[2017-10-30] MEDS: ACETYLCYSTEINE 20% 200MG/ML 4 ML VIAL *FOR ORAL / INH USE ONLY NEB SCH ×4 (08:25→20:25)
[2017-10-30] MEDS: ALBUTEROL SO4 0.083% IH SOL 2.5 MG/3 ML VIAL.NEB. NEB SCH ×4 (08:25→20:25)
[2017-10-30] MEDS: AMINO ACIDS/PROTEIN HYDROLYS 30 ML LIQUID.PKT NGT SCH ×2 (08:26→18:47)
[2017-10-30] MEDS: TAMSULOSIN HCL 0.4 MG CAP.ER.24H (FP) PO SCH (08:40)
--- NOTE | 2017-10-30 10:05 | PN ---
Progress Note, Physician History of Present Illness: pulmonary awake,confused,-resp distress - Current Medication List Current Medications: Active Medications Acetaminophen (Tylenol -) 650 mg PO Q6H PRN PRN Reason: PAIN OR FEVER Last Admin: 10/28/17 09:59 Dose: 650 mg Acetylcysteine (Mucomyst 20 Oral / Inh Use Only*) 200 mg NEB RQID [facility] Last Admin: 10/30/17 08:25 Dose: 200 mg Albuterol Sulfate (Ventolin 0.083% Nebulizer Soln -) 1 amp NEB RQID [facility] Last Admin: 10/30/17 08:25 Dose: 1 amp Amino Acids (Prosource No Carb Liquid Pkt) 30 ml NGT BID@0800,1730 [facility] Last Admin: 10/29/17 18:46 Dose: Not Given Chlorhexidine Gluconate (Hibiclens For Decolonization -) 1 applic TP [facility] Last Admin: 10/29/17 22:09 Dose: Not Given Darbepoetin Trell (Aranesp -) 25 mcg SQ Q7D@1000 [facility] Last Admin: 10/29/17 16:22 Dose: 25 mcg Diltiazem HCl (Cardizem Cd -) 120 mg PO BID [facility] Last Admin: 10/29/17 22:04 Dose: 120 mg Haloperidol (Haldol -) 1 mg PO Q4H PRN PRN Reason: AGITATION Last Admin: 10/29/17 22:04 Dose: 1 mg Amino Acids (Clinimix -) 1,000 mls @ 42 mls/hr IV Q23H [facility] Last Admin: 10/29/17 16:31 Dose: 42 mls/hr Piperacillin Sod/Tazobactam (Sod 2.25 gm/ Dextrose) 50 mls @ 100 mls/hr IVPB Q8H-IV [facility] PRN Reason: Protocol Last Admin: 10/30/17 01:29 Dose: 100 mls/hr Insulin Aspart (Novolog Vial Sliding Scale -) 1 vial SQ HS [facility] PRN Reason: Protocol Last Admin: 10/29/17 22:09 Dose: 5 units Insulin Aspart (Novolog Vial Sliding Scale -) 1 vial SQ TIDAC [facility] PRN Reason: Protocol Last Admin: 10/30/17 06:44 Dose: Not Given Insulin Detemir (Levemir Vial) 10 units SQ BID@0700,2200 [facility] Last Admin: 10/30/17 06:44 Dose: 10 units Metoprolol Tartrate (Lopressor Injection -) 5 mg IVPUSH Q4H PRN PRN Reason: TACHYCARDIA Nystatin (Nystatin Oral Suspension -) 500,000 units PO Q6HPO [facility] Last Admin: 10/30/17 06:20 Dose: Not Given Pantoprazole Sodium (Protonix -) 40 mg PO DAILY [facility] Last Admin: 10/29/17 12:40 Dose: 40 mg Tamsulosin HCl (Flomax -) 0.4 mg PO DAILY@0830 [facility] Last Admin: 10/29/17 12:40 Dose: 0.4 mg - Objective Vital Signs: Vital Signs Temperature 98.7 F 10/30/17 05:00 Pulse Rate 95 H 10/30/17 05:00 Respiratory Rate 18 10/30/17 05:00 Blood Pressure 120/59 10/30/17 05:00 O2 Sat by Pulse Oximetry (%) 97 10/30/17 06:00 Constitutional: Yes: Anxious, Thin Eyes: Yes: WNL HENT: Yes: WNL Neck: Yes: WNL Cardiovascular: Yes: Pulse Irregular, S1, S2 Respiratory: Yes: Rhonchi (few rhonchi) Gastrointestinal: Yes: Normal Bowel Sounds, Soft Extremities: Yes: WNL Edema: No Labs: CBC, BMP 10/29/17 06:30 10/29/17 16:35 INR, PTT INR 1.04 (0.82-1.09) 10/29/17 06:30 Problem List - Problems (1) Acute respiratory failure Code(s): J96.00 - ACUTE RESPIRATORY FAILURE, UNSP W HYPOXIA OR HYPERCAPNIA (2) Septic shock Code(s): A41.9 - SEPSIS, UNSPECIFIED ORGANISM; R65.21 - SEVERE SEPSIS WITH SEPTIC SHOCK (3) Diabetes mellitus Code(s): E11.9 - TYPE 2 DIABETES MELLITUS WITHOUT COMPLICATIONS (4) Hospital-acquired pneumonia Code(s): J18.9 - PNEUMONIA, UNSPECIFIED ORGANISM (5) CKD (chronic kidney disease) stage 3, GFR 30-59 ml/min Code(s): N18.3 - CHRONIC KIDNEY DISEASE, STAGE 3 (MODERATE) (6) Hyperlipidemia Code(s): E78.5 - HYPERLIPIDEMIA, UNSPECIFIED (7) Hypertension Code(s): I10 - ESSENTIAL (PRIMARY) HYPERTENSION Qualifiers: Hypertension type: essential hypertension Qualified Code(s): I10 - Essential (primary) hypertension (8) Afib Code(s): I48.91 - UNSPECIFIED ATRIAL FIBRILLATION Assessment/Plan ASSESSMENT AND PLAN: Acute Hypoxic Respiratory Failure improving Pneumonia clinically improving Septic Shock resolving Acute on Chronic Renal Failure requiring HD improving Lactic Acidosis resolved Diabetic Ketoacidosis resolved Paroxysmal Atrial Fibrillation with RVR GI bleed HTN DM COPD ANEMIA - inhaled bronchodilators -monitor H/H - HD per renal - monitor urine output, creatinine - monitor I/Os - glucose control - rate control - supplemental O2 - PO as tolerated - aspiration precautions - rehab/PT - DVT/GI prophylaxis DR RENDON
--- NOTE | 2017-10-30 10:09 | PN ---
Progress Note, Physician Chief Complaint: Elderly frail man no interval changes - Current Medication List Current Medications: Active Medications Acetaminophen (Tylenol -) 650 mg PO Q6H PRN PRN Reason: PAIN OR FEVER Last Admin: 10/28/17 09:59 Dose: 650 mg Acetylcysteine (Mucomyst 20 Oral / Inh Use Only*) 200 mg NEB RQID [facility] Last Admin: 10/30/17 08:25 Dose: 200 mg Albuterol Sulfate (Ventolin 0.083% Nebulizer Soln -) 1 amp NEB RQID [facility] Last Admin: 10/30/17 08:25 Dose: 1 amp Amino Acids (Prosource No Carb Liquid Pkt) 30 ml NGT BID@0800,1730 [facility] Last Admin: 10/29/17 18:46 Dose: Not Given Chlorhexidine Gluconate (Hibiclens For Decolonization -) 1 applic TP [facility] Last Admin: 10/29/17 22:09 Dose: Not Given Darbepoetin Trell (Aranesp -) 25 mcg SQ Q7D@1000 [facility] Last Admin: 10/29/17 16:22 Dose: 25 mcg Diltiazem HCl (Cardizem Cd -) 120 mg PO BID [facility] Last Admin: 10/29/17 22:04 Dose: 120 mg Haloperidol (Haldol -) 1 mg PO Q4H PRN PRN Reason: AGITATION Last Admin: 10/29/17 22:04 Dose: 1 mg Amino Acids (Clinimix -) 1,000 mls @ 42 mls/hr IV Q23H [facility] Last Admin: 10/29/17 16:31 Dose: 42 mls/hr Piperacillin Sod/Tazobactam (Sod 2.25 gm/ Dextrose) 50 mls @ 100 mls/hr IVPB Q8H-IV [facility] PRN Reason: Protocol Last Admin: 10/30/17 01:29 Dose: 100 mls/hr Insulin Aspart (Novolog Vial Sliding Scale -) 1 vial SQ HS [facility] PRN Reason: Protocol Last Admin: 10/29/17 22:09 Dose: 5 units Insulin Aspart (Novolog Vial Sliding Scale -) 1 vial SQ TIDAC [facility] PRN Reason: Protocol Last Admin: 10/30/17 06:44 Dose: Not Given Insulin Detemir (Levemir Vial) 10 units SQ BID@0700,2200 [facility] Last Admin: 10/30/17 06:44 Dose: 10 units Metoprolol Tartrate (Lopressor Injection -) 5 mg IVPUSH Q4H PRN PRN Reason: TACHYCARDIA Nystatin (Nystatin Oral Suspension -) 500,000 units PO Q6HPO [facility] Last Admin: 10/30/17 06:20 Dose: Not Given Pantoprazole Sodium (Protonix -) 40 mg PO DAILY [facility] Last Admin: 10/29/17 12:40 Dose: 40 mg Tamsulosin HCl (Flomax -) 0.4 mg PO DAILY@0830 [facility] Last Admin: 10/29/17 12:40 Dose: 0.4 mg - Objective Vital Signs: Vital Signs Temperature 98.7 F 10/30/17 05:00 Pulse Rate 95 H 10/30/17 05:00 Respiratory Rate 18 10/30/17 05:00 Blood Pressure 120/59 10/30/17 05:00 O2 Sat by Pulse Oximetry (%) 97 10/30/17 06:00 Elderly Frail man in respiratory distress HEENT: NECK: No JVD No Bruit CHEST /L Crept CVS: S1S2 R ABD: No distentions EXT: Ischemic Toes [employer]: Confused no interval changes Labs: CBC, BMP 10/29/17 06:30 10/29/17 16:35 INR, PTT INR 1.04 (0.82-1.09) 10/29/17 06:30 Problem List - Problems (1) DKA (diabetic ketoacidoses) Assessment/Plan: Resolved now on Insulin optimize Glycemic control Code(s): E13.10 - OTH DIABETES MELLITUS WITH KETOACIDOSIS WITHOUT COMA (2) Ischemia of lower extremity Assessment/Plan: Gradually worsening Code(s): I99.8 - OTHER DISORDER OF CIRCULATORY SYSTEM (3) SHANTA (acute kidney injury) Assessment/Plan: Stable F/U BMP Code(s): N17.9 - ACUTE KIDNEY FAILURE, UNSPECIFIED (4) Hospital-acquired pneumonia Assessment/Plan: Completed abx Code(s): J18.9 - PNEUMONIA, UNSPECIFIED ORGANISM (5) Afib Assessment/Plan: Off Ac rate controlled Code(s): I48.91 - UNSPECIFIED ATRIAL FIBRILLATION (6) Hypoglycemia Assessment/Plan: resolved Code(s): E16.2 - HYPOGLYCEMIA, UNSPECIFIED
[2017-10-30] MEDS: PANTOPRAZOLE 40 MG TABLET (FP) PO SCH (10:26)
--- NOTE | 2017-10-30 10:36 | PN ---
Progress Note (short form) - Note Progress Note: Chief Complaint: resp failure History of Present Illness: no cp, palps, dizziness, sob Current Medications Generic Name Dose Route Start Last Admin Trade Name Freq PRN Reason Stop Dose Admin Acetaminophen 650 mg 10/26/17 09:08 10/28/17 09:59 Tylenol - PO 650 mg Q6H PRN Administration PAIN OR FEVER Acetylcysteine 200 mg 10/25/17 12:00 10/30/17 08:25 Mucomyst 20 Oral / Inh Use Only* NEB 200 mg RQID [facility] Administration Albuterol Sulfate 1 amp 10/25/17 12:00 10/30/17 08:25 Ventolin 0.083% Nebulizer Soln - NEB 1 amp RQID [facility] Administration Amino Acids 30 ml 10/25/17 17:30 10/29/17 18:46 Prosource No Carb Liquid Pkt NGT Not Given BID@0800,1730 [facility] Chlorhexidine Gluconate 1 applic 10/25/17 22:00 10/29/17 22:09 Hibiclens For Decolonization - TP Not Given HS [facility] Darbepoetin Trell 25 mcg 10/29/17 10:00 10/29/17 16:22 Aranesp - SQ 25 mcg Q7D@1000 [facility] Administration Diltiazem HCl 120 mg 10/25/17 22:00 10/29/17 22:04 Cardizem Cd - PO 120 mg BID [facility] Administration Haloperidol 1 mg 10/29/17 13:21 10/29/17 22:04 Haldol - PO 1 mg Q4H PRN Administration AGITATION Amino Acids 1,000 mls @ 42 mls/hr 10/29/17 14:30 10/29/17 16:31 Clinimix - IV 42 mls/hr Q23H [facility] Administration Piperacillin Sod/Tazobactam 50 mls @ 100 mls/hr 10/29/17 15:15 10/30/17 01:29 Sod 2.25 gm/ Dextrose IVPB 100 mls/hr Q8H-IV [facility] Administration Protocol Insulin Aspart 1 vial 10/25/17 22:00 10/29/17 22:09 Novolog Vial Sliding Scale - SQ 5 units HS [facility] Administration Protocol Insulin Aspart 1 vial 10/26/17 12:20 10/30/17 06:44 Novolog Vial Sliding Scale - SQ Not Given TIDAC [facility] Protocol Insulin Detemir 10 units 10/29/17 07:00 10/30/17 06:44 Levemir Vial SQ 10 units BID@0700,2200 [facility] Administration Metoprolol Tartrate 5 mg 10/25/17 11:23 Lopressor Injection - IVPUSH Q4H PRN TACHYCARDIA Nystatin 500,000 units 10/25/17 12:00 10/30/17 06:20 Nystatin Oral Suspension - PO Not Given Q6HPO [facility] Pantoprazole Sodium 40 mg 10/26/17 10:00 10/29/17 12:40 Protonix - PO 40 mg DAILY [facility] Administration Tamsulosin HCl 0.4 mg 10/26/17 08:30 10/29/17 12:40 Flomax - PO 0.4 mg DAILY@0830 [facility] Administration - Objective Vital Signs: Vital Signs Period Temp Pulse Resp BP Sys/Sy Pulse Ox Last 24 Hr 98 F-98.7 F 95-114 18-22 116-130/52-80 95-97 Constitutional: Yes: cachectic, No Distress, Calm Cardiovascular: Yes: Regular Rate and Rhythm. No: JVD (tds exam), Gallop, Murmur Respiratory: Yes: Regular,cta, nl effort Extremities: No: Cold Edema: No Neurological: Yes: Alert. No: Seizure Psychiatric: No: Agitated dimished dp/pt, gangrene of left foot. Labs: CBC, BMP 10/29/17 06:30 10/29/17 16:35 tele: SR EKG 10/03: sinus tach with atrial run. non-sp t wave ab. no ischemic changes. 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 diverticulosis, gastritis, esophagitis. cxr 10/26 (images, report reviewed): RLL consolidation with associated reactive right pleural effusion. cxr: still with congestive changes, with some infiltrative findings at right base with fluid. cxr 10/05: RLL consolidation and pleural fluid. cxr 10/08 improved aeration at right base. Echo 09/2017: tds. nl lv/rv size/fn. E, A reversal. mod-sev mac. + fn MS. 1 + mr/tr. nl rvsp. Echo 06/2017: mod lvh. nl lv fn. nl rv size/fn. 1+ lae. mod-sev mac with mod ms. 1+ mr. nl rvsp. 1+ ao dilation A/P 76 yo with pmhx of htn, hl, pad, afib (not on AC due to GIB), cva, copd, dm, mgus, esthesioneuroblastoma treated with radiation therapy, chronic anemia s/ p recent GIB admitted with dka, sepsis, resp failure. Hospital course now complicated by episode of afib with rvr afib - not previously a candidate for AC b/c of prior hx of GIB. remains anemic with melena here as well. - s/p IV amio. started po dilt 10/05. now back in sr. hr controlled. - off Amio, remains in sinus. BPs soft but tolerating diltiazem hi dose (90mg q6H)--continue same for now - change to cardizem CD regimen once bp's clearly out of the ngo as far as hypotension - hgb drifted down once ASA resumed--now d/c'd. not a candidate for AC at this time as risks of serious bleeding are > benefits - remains in SR, bp thus far tolerating diltiazem at present dose - 10/19: episode of bradycardia with intermittent dropped qrs complexes and runs of ventricular escape. Will decrease diltiazem to 60 mg q6h. Observe for recurrence of RVR. --> transitioned to long acting dilt (120 bid 10/23). - remains rate controlled/sr on dilt Vtach: - long run on tele of nonsustained WCT, HR around 100-110 bpm (suspect slow VT) - K/Mag both aggressively repleted--routine mgmt - rpt echo for LVEF (normal in 07/15) --> normal EF. -none further on tele here mitral stenosis: - aggressive control of afib to prevent tachycardia CHF as doing - defer amio for now, may have to reconsider if recurrent rapid AF despite sepsis/PNA complete resolution anemia, GI bleeding: - ongoing UGIB here with stool guaiac + (iker hgb 6.1) - s/p PRBCs, last on 10/18 - counts stable - no cardiac contraindications to planned egd/foc. - s/p endoscopy 10/21 --> avm cauterized. htn - home meds changed to diltiazem here for PAF rate control - bp stable cva/pad - con't statin. - per pmd, previously not a candidate for asa due to recent gib and anemia. hgb drifting down on asa here, held again mild asc ao dilation - cont bp control SHANTA - renal following, no sig improvement --> initiated HD 10/07. - currently have been monitoring off HD. started on torsemide per renal --> stopped 10/26. dc tele
[2017-10-30] MEDS ORDERED: traMADol HCL 50 MG TABLET PO PRN (10:59)
--- NOTE | 2017-10-30 11:01 | PN ---
Progress Note (short form) - Note Progress Note: Renal follow up for SHANTA Pt seen and examined at the bedside confused, reports pain in both legs no sob, chest pain, abd pain no overnight events Vital Signs Temperature 98.7 F 10/30/17 05:00 Pulse Rate 95 H 10/30/17 05:00 Respiratory Rate 18 10/30/17 05:00 Blood Pressure 120/59 10/30/17 05:00 O2 Sat by Pulse Oximetry (%) 97 10/30/17 06:00 Intake & Output 10/27/17 10/28/17 10/29/17 10/30/17 23:59 23:59 23:59 23:59 Intake Total 560 1764 1281 604 Output Total 300 350 Balance 260 1414 1281 604 Weight 48.625 kg 48.534 kg NAD Dry MM RRR, No M/R CTA soft NT/ND No LE edema, clubbing or cyanosis heels in dressing CBC, BMP 10/29/17 06:30 10/29/17 16:35 Current Medications Acetaminophen (Tylenol -) 650 mg PO Q6H PRN PRN Reason: PAIN OR FEVER Last Admin: 10/28/17 09:59 Dose: 650 mg Acetylcysteine (Mucomyst 20 Oral / Inh Use Only*) 200 mg NEB RQID [facility] Last Admin: 10/30/17 08:25 Dose: 200 mg Albuterol Sulfate (Ventolin 0.083% Nebulizer Soln -) 1 amp NEB RQID [facility] Last Admin: 10/30/17 08:25 Dose: 1 amp Amino Acids (Prosource No Carb Liquid Pkt) 30 ml NGT BID@0800,1730 [facility] Last Admin: 10/30/17 08:26 Dose: 30 ml Chlorhexidine Gluconate (Hibiclens For Decolonization -) 1 applic TP HS [facility] Last Admin: 10/29/17 22:09 Dose: Not Given Darbepoetin Trell (Aranesp -) 25 mcg SQ Q7D@1000 [facility] Last Admin: 10/29/17 16:22 Dose: 25 mcg Diltiazem HCl (Cardizem Cd -) 120 mg PO BID [facility] Last Admin: 10/30/17 10:26 Dose: 120 mg Haloperidol (Haldol -) 1 mg PO Q4H PRN PRN Reason: AGITATION Last Admin: 10/29/17 22:04 Dose: 1 mg Amino Acids (Clinimix -) 1,000 mls @ 42 mls/hr IV Q23H [facility] Last Admin: 10/29/17 16:31 Dose: 42 mls/hr Piperacillin Sod/Tazobactam (Sod 2.25 gm/ Dextrose) 50 mls @ 100 mls/hr IVPB Q8H-IV [facility] PRN Reason: Protocol Last Admin: 10/30/17 10:26 Dose: 100 mls/hr Insulin Aspart (Novolog Vial Sliding Scale -) 1 vial SQ HS [facility] PRN Reason: Protocol Last Admin: 10/29/17 22:09 Dose: 5 units Insulin Aspart (Novolog Vial Sliding Scale -) 1 vial SQ TIDAC [facility] PRN Reason: Protocol Last Admin: 10/30/17 06:44 Dose: Not Given Insulin Detemir (Levemir Vial) 10 units SQ BID@0700,2200 [facility] Last Admin: 10/30/17 06:44 Dose: 10 units Metoprolol Tartrate (Lopressor Injection -) 5 mg IVPUSH Q4H PRN PRN Reason: TACHYCARDIA Nystatin (Nystatin Oral Suspension -) 500,000 units PO Q6HPO [facility] Last Admin: 10/30/17 06:20 Dose: Not Given Pantoprazole Sodium (Protonix -) 40 mg PO DAILY [facility] Last Admin: 10/30/17 10:26 Dose: 40 mg Tamsulosin HCl (Flomax -) 0.4 mg PO DAILY@0830 [facility] Last Admin: 10/30/17 08:40 Dose: 0.4 mg Tramadol HCl (Ultram -) 50 mg PO Q12H PRN PRN Reason: PAIN LEVEL 7 - 10 76 year old male with a significant past medical history of COPD, GI bleed, diverticulosis, HLD, CVA, intussusception, umbilical hernia, DM, HTN, sinus cancer with excision and polypectomy who presents to the ED, accompanied by , s/p high blood sugar levels earlier today. #SHANTA on CKD likely due to ATN in setting of sepsis that required [employer] #Sepsis/PNA #Anemia/GI bleed #Hx of Hypertension #DM on Insulin #Hyperphosphatemia in setting of renal injury pt continues to have clinical decline at this time for comfort measures only at this time continue clinamix and will order ultram PRN for LE pain will sign off case at this time please call if any questions or concerns Thank you for allowing us to take part in the care of this patient Tomás Al DO
--- NOTE | 2017-10-30 13:49 | PN ---
Progress Note, Physician History of Present Illness: looks much more awake and alert than yesterday wants something to drink explained him that he needs thick liquids - Current Medication List Current Medications: Active Medications Acetaminophen (Tylenol -) 650 mg PO Q6H PRN PRN Reason: PAIN OR FEVER Last Admin: 10/28/17 09:59 Dose: 650 mg Acetylcysteine (Mucomyst 20 Oral / Inh Use Only*) 200 mg NEB RQID [facility] Last Admin: 10/30/17 11:16 Dose: 200 mg Albuterol Sulfate (Ventolin 0.083% Nebulizer Soln -) 1 amp NEB RQID [facility] Last Admin: 10/30/17 11:16 Dose: 1 amp Amino Acids (Prosource No Carb Liquid Pkt) 30 ml NGT BID@0800,1730 [facility] Last Admin: 10/30/17 08:26 Dose: 30 ml Chlorhexidine Gluconate (Hibiclens For Decolonization -) 1 applic TP [facility] Last Admin: 10/29/17 22:09 Dose: Not Given Darbepoetin Trell (Aranesp -) 25 mcg SQ Q7D@1000 [facility] Last Admin: 10/29/17 16:22 Dose: 25 mcg Diltiazem HCl (Cardizem Cd -) 120 mg PO BID [facility] Last Admin: 10/30/17 10:26 Dose: 120 mg Haloperidol (Haldol -) 1 mg PO Q4H PRN PRN Reason: AGITATION Last Admin: 10/29/17 22:04 Dose: 1 mg Amino Acids (Clinimix -) 1,000 mls @ 42 mls/hr IV Q23H [facility] Last Admin: 10/29/17 16:31 Dose: 42 mls/hr Piperacillin Sod/Tazobactam (Sod 2.25 gm/ Dextrose) 50 mls @ 100 mls/hr IVPB Q8H-IV [facility] PRN Reason: Protocol Last Admin: 10/30/17 10:26 Dose: 100 mls/hr Insulin Aspart (Novolog Vial Sliding Scale -) 1 vial SQ HS [facility] PRN Reason: Protocol Last Admin: 10/29/17 22:09 Dose: 5 units Insulin Aspart (Novolog Vial Sliding Scale -) 1 vial SQ TIDAC [facility] PRN Reason: Protocol Last Admin: 10/30/17 11:56 Dose: Not Given Insulin Detemir (Levemir Vial) 10 units SQ BID@0700,2200 [facility] Last Admin: 10/30/17 06:44 Dose: 10 units Metoprolol Tartrate (Lopressor Injection -) 5 mg IVPUSH Q4H PRN PRN Reason: TACHYCARDIA Nystatin (Nystatin Oral Suspension -) 500,000 units PO Q6HPO [facility] Last Admin: 10/30/17 11:56 Dose: Not Given Pantoprazole Sodium (Protonix -) 40 mg PO DAILY [facility] Last Admin: 10/30/17 10:26 Dose: 40 mg Tamsulosin HCl (Flomax -) 0.4 mg PO DAILY@0830 [facility] Last Admin: 10/30/17 08:40 Dose: 0.4 mg Tramadol HCl (Ultram -) 50 mg PO Q12H PRN PRN Reason: PAIN LEVEL 7 - 10 - Objective Vital Signs: Vital Signs Temperature 98.7 F 10/30/17 05:00 Pulse Rate 95 H 10/30/17 05:00 Respiratory Rate 18 10/30/17 05:00 Blood Pressure 120/59 10/30/17 05:00 O2 Sat by Pulse Oximetry (%) 97 10/30/17 10:00 Constitutional: Yes: No Distress, Calm Cardiovascular: Yes: S1, S2 Respiratory: Yes: Poor Air Entry Gastrointestinal: Yes: Normal Bowel Sounds, Soft Neurological: Yes: Alert, Oriented Psychiatric: Yes: Alert, Oriented Labs: CBC, BMP 10/29/17 06:30 10/29/17 16:35 INR, PTT INR 1.04 (0.82-1.09) 10/29/17 06:30 Assessment/Plan 76 year old male with a significant past medical history of COPD, GI bleed, diverticulosis, HLD, CVA, intussusception, umbilical hernia, DM, HTN, sinus cancer with excision and polypectomy Acute Hypoxic Respiratory Failure Pneumonia Septic Shock Acute on Chronic Renal Failure Lactic Acidosis Diabetic Ketoacidosis improving HTN DM COPD gluteal ulcer discoloration of the toes janene plan continue zosyn monitor wbc rest continue current mgmt asp precautions
[2017-10-30] MEDS ORDERED: ACETYLCYSTEINE 20% 200MG/ML 30 ML VIAL *FOR ORAL / INH USE ONLY ONE (15:29)
[2017-10-30] MEDS: AMINO ACIDS 4.25%/D5W 1,000 ML IV SCH (15:47)
[2017-10-30] MEDS: CHLORHEXIDINE GLUCONATE 4% CLEANSER FOR DECOLONIZATION TP SCH (21:37)
[2017-10-31] MEDS: NYSTATIN 500,000 UNITS/5 ML SUSPENSION PO SCH ×4 (00:05→18:30)
[2017-10-31] MEDS: HALOPERIDOL 1 MG TABLET (FP) PO PRN ×2 (00:07→10:09)
--- NOTE | 2017-10-31 00:16 | PN ---
Progress Note, Physician Chief Complaint: diabetes mellitus/confused History of Present Illness: 76 year old male with a significant past medical history of COPD, GI bleed, diverticulosis, HLD, CVA, intussusception, umbilical hernia, DM, HTN, sinus cancer with excision and polypectomy was admitted with hyperglcyemia. Pt was found to be have severe sepsis with acute hypoxic respiratory failure and DKA treated with insulin and iv fluids, has had labile blood sugars, on iv nutrtion feedings - Current Medication List Current Medications: Active Medications Acetaminophen (Tylenol -) 650 mg PO Q6H PRN PRN Reason: PAIN OR FEVER Last Admin: 10/28/17 09:59 Dose: 650 mg Acetylcysteine (Mucomyst 20 Oral / Inh Use Only*) 200 mg NEB RQID [facility] Last Admin: 10/30/17 20:25 Dose: 200 mg Albuterol Sulfate (Ventolin 0.083% Nebulizer Soln -) 1 amp NEB RQID [facility] Last Admin: 10/30/17 20:25 Dose: 1 amp Amino Acids (Prosource No Carb Liquid Pkt) 30 ml NGT BID@0800,1730 [facility] Last Admin: 10/30/17 18:47 Dose: Not Given Chlorhexidine Gluconate (Hibiclens For Decolonization -) 1 applic TP HS [facility] Last Admin: 10/30/17 21:37 Dose: Not Given Darbepoetin Trell (Aranesp -) 25 mcg SQ Q7D@1000 [facility] Last Admin: 10/29/17 16:22 Dose: 25 mcg Diltiazem HCl (Cardizem Cd -) 120 mg PO BID [facility] Last Admin: 10/30/17 21:37 Dose: 120 mg Haloperidol (Haldol -) 1 mg PO Q4H PRN PRN Reason: AGITATION Last Admin: 10/31/17 00:07 Dose: 1 mg Amino Acids (Clinimix -) 1,000 mls @ 42 mls/hr IV Q23H [facility] Last Admin: 10/30/17 15:47 Dose: 42 mls/hr Piperacillin Sod/Tazobactam (Sod 2.25 gm/ Dextrose) 50 mls @ 100 mls/hr IVPB Q8H-IV [facility] PRN Reason: Protocol Last Admin: 10/30/17 18:53 Dose: 100 mls/hr Insulin Aspart (Novolog Vial Sliding Scale -) 1 vial SQ HS [facility] PRN Reason: Protocol Last Admin: 10/30/17 21:36 Dose: 3 units Insulin Aspart (Novolog Vial Sliding Scale -) 1 vial SQ TIDAC [facility] PRN Reason: Protocol Last Admin: 10/30/17 17:32 Dose: 13 units Insulin Detemir (Levemir Vial) 10 units SQ BID@0700,2200 [facility] Last Admin: 10/30/17 21:37 Dose: 10 units Metoprolol Tartrate (Lopressor Injection -) 5 mg IVPUSH Q4H PRN PRN Reason: TACHYCARDIA Nystatin (Nystatin Oral Suspension -) 500,000 units PO Q6HPO [facility] Last Admin: 10/31/17 00:05 Dose: Not Given Pantoprazole Sodium (Protonix -) 40 mg PO DAILY [facility] Last Admin: 10/30/17 10:26 Dose: 40 mg Tamsulosin HCl (Flomax -) 0.4 mg PO DAILY@0830 [facility] Last Admin: 10/30/17 08:40 Dose: 0.4 mg Tramadol HCl (Ultram -) 50 mg PO Q12H PRN PRN Reason: PAIN LEVEL 7 - 10 - Objective Vital Signs: Vital Signs Temperature 98 F 10/30/17 21:00 Pulse Rate 103 H 10/30/17 21:00 Respiratory Rate 19 10/30/17 21:00 Blood Pressure 116/50 10/30/17 21:00 O2 Sat by Pulse Oximetry (%) 98 10/30/17 22:00 Labs: CBC, BMP 10/29/17 06:30 10/29/17 16:35 INR, PTT INR 1.04 (0.82-1.09) 10/29/17 06:30 Problem List - Problems (1) AVM (arteriovenous malformation) of colon with hemorrhage Code(s): Q27.33 - ARTERIOVENOUS MALFORMATION OF DIGESTIVE SYSTEM VESSEL (2) Acute respiratory failure Code(s): J96.00 - ACUTE RESPIRATORY FAILURE, UNSP W HYPOXIA OR HYPERCAPNIA (3) DKA (diabetic ketoacidoses) Code(s): E13.10 - OTH DIABETES MELLITUS WITH KETOACIDOSIS WITHOUT COMA (4) Hypoglycemia Code(s): E16.2 - HYPOGLYCEMIA, UNSPECIFIED (5) Ischemia of lower extremity Code(s): I99.8 - OTHER DISORDER OF CIRCULATORY SYSTEM Assessment/Plan Current Active Problems AVM (arteriovenous malformation) of colon (Acute) AVM (arteriovenous malformation) of colon with hemorrhage (Acute) Acute respiratory failure (Acute) Afib (Acute) Angiectasia (Acute) DKA (diabetic ketoacidoses) (Acute) Hypoglycemia (Acute) Ischemia of lower extremity (Acute) Pneumonia allergic (Acute) Septic shock (Acute) Diabetes mellitus (Chronic) Laboratory Results - last 24 hr 10/30/17 10/30/17 10/30/17 04:42 06:40 11:47 POC Glucometer 150 99 71 10/30/17 10/30/17 17:12 20:56 POC Glucometer 394 290 Laboratory Tests 10/04/17 10/29/17 10/29/17 06:00 06:30 21:12 Sodium 148 H Potassium 5.0 Chloride 110 H D Carbon Dioxide 28 Anion Gap 10 BUN 101 H Creatinine 4.5 H POC Glucometer 359 Hemoglobin A1c % 8.5 H D 10/30/17 10/30/17 10/30/17 04:42 06:40 11:47 Sodium Potassium Chloride Carbon Dioxide Anion Gap BUN Creatinine POC Glucometer 150 99 71 Hemoglobin A1c % 10/30/17 10/30/17 17:12 20:56 Sodium Potassium Chloride Carbon Dioxide Anion Gap BUN Creatinine POC Glucometer 394 290 Hemoglobin A1c % plan: bgm qid novolog insulin levemir doses 10 unit bid nutrition suplement
[2017-10-31] MEDS ORDERED: PIPERACILLIN/TAZOBACTAM 2.25 GM VIAL IVPB ONE ×3 (01:57→17:52)
[2017-10-31] MEDS ORDERED: DEXTROSE 5%-WATER - 50 ML IVPB ONE ×3 (01:58→17:52)
[2017-10-31] MEDS: PIPERACILLIN/TAZOB 2.25 GM 2.25 GM in DEXTROSE 5%-WATER - 50 ML IVPB SCH ×3 (02:05→18:30)
[2017-10-31] MEDS: INSULIN SLIDING SCALE (NOVOLOG) 1 VIAL SQ SCH ×4 (06:33→22:02)
[2017-10-31] MEDS: INSULIN (LEVEMIR) 100 UNITS/ML UNITS SQ SCH ×2 (06:33→22:01)
[2017-10-31] MEDS: ACETYLCYSTEINE 20% 200MG/ML 4 ML VIAL *FOR ORAL / INH USE ONLY NEB SCH ×4 (07:54→20:25)
[2017-10-31] MEDS: ALBUTEROL SO4 0.083% IH SOL 2.5 MG/3 ML VIAL.NEB. NEB SCH ×4 (07:55→20:25)
[2017-10-31] MEDS: AMINO ACIDS/PROTEIN HYDROLYS 30 ML LIQUID.PKT NGT SCH ×2 (08:57→18:29)
[2017-10-31] MEDS: TAMSULOSIN HCL 0.4 MG CAP.ER.24H (FP) PO SCH (10:02)
[2017-10-31] MEDS: PANTOPRAZOLE 40 MG TABLET (FP) PO SCH (10:02)
--- NOTE | 2017-10-31 10:46 | PN ---
Progress Note (short form) - Note Progress Note: Chief Complaint: resp failure History of Present Illness: confused no cp, palps, dizziness, sob Current Medications Generic Name Dose Route Start Last Admin Trade Name Freq PRN Reason Stop Dose Admin Acetaminophen 650 mg 10/26/17 09:08 10/28/17 09:59 Tylenol - PO 650 mg Q6H PRN Administration PAIN OR FEVER Acetylcysteine 200 mg 10/25/17 12:00 10/31/17 07:54 Mucomyst 20 Oral / Inh Use Only* NEB 200 mg RQID SELVIN Administration Albuterol Sulfate 1 amp 10/25/17 12:00 10/31/17 07:55 Ventolin 0.083% Nebulizer Soln - NEB 1 amp RQID SELVIN Administration Amino Acids 30 ml 10/25/17 17:30 10/31/17 08:57 Prosource No Carb Liquid Pkt NGT Not Given BID@0800,1730 SELVIN Chlorhexidine Gluconate 1 applic 10/25/17 22:00 10/30/17 21:37 Hibiclens For Decolonization - TP Not Given HS SELVIN Darbepoetin Trell 25 mcg 10/29/17 10:00 10/29/17 16:22 Aranesp - SQ 25 mcg Q7D@1000 SELVIN Administration Diltiazem HCl 120 mg 10/25/17 22:00 10/31/17 10:02 Cardizem Cd - PO 120 mg BID SELVIN Administration Haloperidol 1 mg 10/29/17 13:21 10/31/17 10:09 Haldol - PO 1 mg Q4H PRN Administration AGITATION Amino Acids 1,000 mls @ 42 mls/hr 10/29/17 14:30 10/30/17 15:47 Clinimix - IV 42 mls/hr Q23H SELVIN Administration Piperacillin Sod/Tazobactam 50 mls @ 100 mls/hr 10/29/17 15:15 10/31/17 10:02 Sod 2.25 gm/ Dextrose IVPB 100 mls/hr Q8H-IV SELVIN Administration Protocol Insulin Aspart 1 vial 10/25/17 22:00 10/30/17 21:36 Novolog Vial Sliding Scale - SQ 3 units HS SELVIN Administration Protocol Insulin Aspart 1 vial 10/26/17 12:20 10/31/17 06:33 Novolog Vial Sliding Scale - SQ 2 units TIDAC SELVIN Administration Protocol Insulin Detemir 10 units 10/29/17 07:00 10/31/17 06:33 Levemir Vial SQ 10 units BID@0700,2200 SELVIN Administration Metoprolol Tartrate 5 mg 10/25/17 11:23 Lopressor Injection - IVPUSH Q4H PRN TACHYCARDIA Nystatin 500,000 units 10/25/17 12:00 10/31/17 05:20 Nystatin Oral Suspension - PO Not Given Q6HPO SELVIN Pantoprazole Sodium 40 mg 10/26/17 10:00 10/31/17 10:02 Protonix - PO 40 mg DAILY SELVIN Administration Tamsulosin HCl 0.4 mg 10/26/17 08:30 10/31/17 10:02 Flomax - PO 0.4 mg DAILY@0830 SELVIN Administration Tramadol HCl 50 mg 10/30/17 10:59 Ultram - PO Q12H PRN PAIN LEVEL 7 - 10 - Objective Vital Signs: Vital Signs Period Temp Pulse Resp BP Sys/Sy Pulse Ox Last 24 Hr 97.5 F-98.6 F 94-103 18-22 116-123/50-64 98-98 Constitutional: Yes: cachectic, No Distress, Calm Cardiovascular: Yes: Regular Rate and Rhythm. No: JVD (tds exam), Gallop, Murmur Respiratory: Yes: Regular,cta, nl effort Extremities: No: Cold Edema: No Neurological: Yes: Alert. No: Seizure Psychiatric: No: Agitated dimished dp/pt, gangrene of left foot. Labs: CBC, BMP 10/29/17 06:30 10/29/17 16:35 EKG 10/03: sinus tach with atrial run. non-sp t wave ab. no ischemic changes. 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 diverticulosis, gastritis, esophagitis. cxr 10/26 (images, report reviewed): RLL consolidation with associated reactive right pleural effusion. cxr: still with congestive changes, with some infiltrative findings at right base with fluid. cxr 10/05: RLL consolidation and pleural fluid. cxr 10/08 improved aeration at right base. Echo 09/2017: tds. nl lv/rv size/fn. E, A reversal. mod-sev mac. + fn MS. 1 + mr/tr. nl rvsp. Echo 06/2017: mod lvh. nl lv fn. nl rv size/fn. 1+ lae. mod-sev mac with mod ms. 1+ mr. nl rvsp. 1+ ao dilation A/P 76 yo with pmhx of htn, hl, pad, afib (not on AC due to GIB), cva, copd, dm, mgus, esthesioneuroblastoma treated with radiation therapy, chronic anemia s/ p recent GIB admitted with dka, sepsis, resp failure. Hospital course now complicated by episode of afib with rvr afib - not previously a candidate for AC b/c of prior hx of GIB. remains anemic with melena here as well. - s/p IV amio. started po dilt 10/05. now back in sr. hr controlled. - off Amio, remains in sinus. BPs soft but tolerating diltiazem hi dose (90mg q6H)--continue same for now - change to cardizem CD regimen once bp's clearly out of the ngo as far as hypotension - hgb drifted down once ASA resumed--now d/c'd. not a candidate for AC at this time as risks of serious bleeding are > benefits - remains in SR, bp thus far tolerating diltiazem at present dose - 10/19: episode of bradycardia with intermittent dropped qrs complexes and runs of ventricular escape. Will decrease diltiazem to 60 mg q6h. Observe for recurrence of RVR. --> transitioned to long acting dilt (120 bid 10/23). - remains rate controlled/sr on dilt Vtach: - long run on tele of nonsustained WCT, HR around 100-110 bpm (suspect slow VT) - K/Mag both aggressively repleted--routine mgmt - rpt echo for LVEF (normal in 07/15) --> normal EF. -none further on tele here mitral stenosis: - aggressive control of afib to prevent tachycardia CHF as doing - defer amio for now, may have to reconsider if recurrent rapid AF despite sepsis/PNA complete resolution anemia, GI bleeding: - ongoing UGIB here with stool guaiac + (iker hgb 6.1) - s/p PRBCs, last on 10/18 - counts stable - no cardiac contraindications to planned egd/foc. - s/p endoscopy 10/21 --> avm cauterized. htn - home meds changed to diltiazem here for PAF rate control - bp stable cva/pad - con't statin. - per pmd, previously not a candidate for asa due to recent gib and anemia. hgb drifting down on asa here, held again mild asc ao dilation - cont bp control SHANTA - renal following, no sig improvement --> initiated HD 10/07. - currently have been monitoring off HD. started on torsemide per renal --> stopped 10/26.
--- NOTE | 2017-10-31 11:05 | PN ---
Progress Note, Physician History of Present Illness: PULMONARY AWAKE,CONFUSED,-RESP DISTRESS - Current Medication List Current Medications: Active Medications Acetaminophen (Tylenol -) 650 mg PO Q6H PRN PRN Reason: PAIN OR FEVER Last Admin: 10/28/17 09:59 Dose: 650 mg Acetylcysteine (Mucomyst 20 Oral / Inh Use Only*) 200 mg NEB RQID [facility] Last Admin: 10/31/17 07:54 Dose: 200 mg Albuterol Sulfate (Ventolin 0.083% Nebulizer Soln -) 1 amp NEB RQID [facility] Last Admin: 10/31/17 07:55 Dose: 1 amp Amino Acids (Prosource No Carb Liquid Pkt) 30 ml NGT BID@0800,1730 [facility] Last Admin: 10/31/17 08:57 Dose: Not Given Chlorhexidine Gluconate (Hibiclens For Decolonization -) 1 applic TP HS [facility] Last Admin: 10/30/17 21:37 Dose: Not Given Darbepoetin Trell (Aranesp -) 25 mcg SQ Q7D@1000 [facility] Last Admin: 10/29/17 16:22 Dose: 25 mcg Diltiazem HCl (Cardizem Cd -) 120 mg PO BID [facility] Last Admin: 10/31/17 10:02 Dose: 120 mg Haloperidol (Haldol -) 1 mg PO Q4H PRN PRN Reason: AGITATION Last Admin: 10/31/17 10:09 Dose: 1 mg Amino Acids (Clinimix -) 1,000 mls @ 42 mls/hr IV Q23H [facility] Last Admin: 10/30/17 15:47 Dose: 42 mls/hr Piperacillin Sod/Tazobactam (Sod 2.25 gm/ Dextrose) 50 mls @ 100 mls/hr IVPB Q8H-IV SELVIN PRN Reason: Protocol Last Admin: 10/31/17 10:02 Dose: 100 mls/hr Insulin Aspart (Novolog Vial Sliding Scale -) 1 vial SQ HS [facility] PRN Reason: Protocol Last Admin: 10/30/17 21:36 Dose: 3 units Insulin Aspart (Novolog Vial Sliding Scale -) 1 vial SQ TIDAC [facility] PRN Reason: Protocol Last Admin: 10/31/17 06:33 Dose: 2 units Insulin Detemir (Levemir Vial) 10 units SQ BID@0700,2200 [facility] Last Admin: 10/31/17 06:33 Dose: 10 units Metoprolol Tartrate (Lopressor Injection -) 5 mg IVPUSH Q4H PRN PRN Reason: TACHYCARDIA Nystatin (Nystatin Oral Suspension -) 500,000 units PO Q6HPO [facility] Last Admin: 10/31/17 05:20 Dose: Not Given Pantoprazole Sodium (Protonix -) 40 mg PO DAILY [facility] Last Admin: 10/31/17 10:02 Dose: 40 mg Tamsulosin HCl (Flomax -) 0.4 mg PO DAILY@0830 [facility] Last Admin: 10/31/17 10:02 Dose: 0.4 mg Tramadol HCl (Ultram -) 50 mg PO Q12H PRN PRN Reason: PAIN LEVEL 7 - 10 - Objective Vital Signs: Vital Signs Temperature 98.6 F 10/31/17 06:00 Pulse Rate 102 H 10/31/17 06:00 Respiratory Rate 22 10/31/17 06:00 Blood Pressure 117/64 10/31/17 06:00 O2 Sat by Pulse Oximetry (%) 98 10/30/17 22:00 Constitutional: Yes: Calm, Cachectic Eyes: Yes: WNL HENT: Yes: WNL Neck: Yes: WNL Cardiovascular: Yes: Regular Rate and Rhythm, S1, S2 Respiratory: Yes: Rhonchi (SCATTERED RHONCHI) Gastrointestinal: Yes: Normal Bowel Sounds, Soft Extremities: Yes: Other (GANGRENE L TOES) Labs: CBC, BMP 10/29/17 06:30 10/29/17 16:35 INR, PTT INR 1.04 (0.82-1.09) 10/29/17 06:30 Problem List - Problems (1) Acute respiratory failure Code(s): J96.00 - ACUTE RESPIRATORY FAILURE, UNSP W HYPOXIA OR HYPERCAPNIA (2) Septic shock Code(s): A41.9 - SEPSIS, UNSPECIFIED ORGANISM; R65.21 - SEVERE SEPSIS WITH SEPTIC SHOCK (3) Diabetes mellitus Code(s): E11.9 - TYPE 2 DIABETES MELLITUS WITHOUT COMPLICATIONS (4) Hospital-acquired pneumonia Code(s): J18.9 - PNEUMONIA, UNSPECIFIED ORGANISM (5) CKD (chronic kidney disease) stage 3, GFR 30-59 ml/min Code(s): N18.3 - CHRONIC KIDNEY DISEASE, STAGE 3 (MODERATE) (6) Hyperlipidemia Code(s): E78.5 - HYPERLIPIDEMIA, UNSPECIFIED (7) Hypertension Code(s): I10 - ESSENTIAL (PRIMARY) HYPERTENSION Qualifiers: Hypertension type: essential hypertension Qualified Code(s): I10 - Essential (primary) hypertension (8) Afib Code(s): I48.91 - UNSPECIFIED ATRIAL FIBRILLATION Assessment/Plan ASSESSMENT AND PLAN: Acute Hypoxic Respiratory Failure improved Pneumonia clinically improving Septic Shock resolving Acute on Chronic Renal Failure requiring HD improving Lactic Acidosis resolved Diabetic Ketoacidosis resolved Paroxysmal Atrial Fibrillation with RVR GI bleed HTN DM COPD ANEMIA - inhaled bronchodilators -monitor H/H - monitor urine output, creatinine - monitor I/Os - glucose control - supplemental O2 - PO as tolerated - aspiration precautions - rehab/PT - DVT/GI prophylaxis - comfort care DR RENDON
--- NOTE | 2017-10-31 13:29 | PN ---
Progress Note, Physician Chief Complaint: Elderly frail man no interval changes - Current Medication List Current Medications: Active Medications Acetaminophen (Tylenol -) 650 mg PO Q6H PRN PRN Reason: PAIN OR FEVER Last Admin: 10/28/17 09:59 Dose: 650 mg Acetylcysteine (Mucomyst 20 Oral / Inh Use Only*) 200 mg NEB RQID [facility] Last Admin: 10/31/17 11:42 Dose: 200 mg Albuterol Sulfate (Ventolin 0.083% Nebulizer Soln -) 1 amp NEB RQID [facility] Last Admin: 10/31/17 11:42 Dose: 1 amp Amino Acids (Prosource No Carb Liquid Pkt) 30 ml NGT BID@0800,1730 [facility] Last Admin: 10/31/17 08:57 Dose: Not Given Chlorhexidine Gluconate (Hibiclens For Decolonization -) 1 applic TP HS [facility] Last Admin: 10/30/17 21:37 Dose: Not Given Darbepoetin Trell (Aranesp -) 25 mcg SQ Q7D@1000 [facility] Last Admin: 10/29/17 16:22 Dose: 25 mcg Diltiazem HCl (Cardizem Cd -) 120 mg PO BID [facility] Last Admin: 10/31/17 10:02 Dose: 120 mg Haloperidol (Haldol -) 1 mg PO Q4H PRN PRN Reason: AGITATION Last Admin: 10/31/17 10:09 Dose: 1 mg Amino Acids (Clinimix -) 1,000 mls @ 42 mls/hr IV Q23H [facility] Last Admin: 10/30/17 15:47 Dose: 42 mls/hr Piperacillin Sod/Tazobactam (Sod 2.25 gm/ Dextrose) 50 mls @ 100 mls/hr IVPB Q8H-IV SELVIN PRN Reason: Protocol Last Admin: 10/31/17 10:02 Dose: 100 mls/hr Insulin Aspart (Novolog Vial Sliding Scale -) 1 vial SQ HS [facility] PRN Reason: Protocol Last Admin: 10/30/17 21:36 Dose: 3 units Insulin Aspart (Novolog Vial Sliding Scale -) 1 vial SQ TIDAC [facility] PRN Reason: Protocol Last Admin: 10/31/17 12:29 Dose: 9 units Insulin Detemir (Levemir Vial) 10 units SQ BID@0700,2200 [facility] Last Admin: 10/31/17 06:33 Dose: 10 units Metoprolol Tartrate (Lopressor Injection -) 5 mg IVPUSH Q4H PRN PRN Reason: TACHYCARDIA Nystatin (Nystatin Oral Suspension -) 500,000 units PO Q6HPO [facility] Last Admin: 10/31/17 12:25 Dose: Not Given Pantoprazole Sodium (Protonix -) 40 mg PO DAILY [facility] Last Admin: 10/31/17 10:02 Dose: 40 mg Tamsulosin HCl (Flomax -) 0.4 mg PO DAILY@0830 [facility] Last Admin: 10/31/17 10:02 Dose: 0.4 mg Tramadol HCl (Ultram -) 50 mg PO Q12H PRN PRN Reason: PAIN LEVEL 7 - 10 Last Admin: 10/31/17 11:23 Dose: 50 mg - Objective Vital Signs: Vital Signs Temperature 98.0 F 10/31/17 10:00 Pulse Rate 98 H 10/31/17 10:00 Respiratory Rate 22 10/31/17 10:00 Blood Pressure 126/54 10/31/17 10:00 O2 Sat by Pulse Oximetry (%) 98 10/31/17 10:00 Elderly Frail man in respiratory distress HEENT: NECK: No JVD No Bruit CHEST /L Crept CVS: S1S2 R ABD: No distentions EXT: Ischemic Toes OIL SCOUT: Confused no interval changes Labs: INR, PTT INR 1.04 (0.82-1.09) 10/29/17 06:30 Problem List - Problems (1) DKA (diabetic ketoacidoses) Assessment/Plan: Resolved now on Insulin optimize Glycemic control Code(s): E13.10 - OTH DIABETES MELLITUS WITH KETOACIDOSIS WITHOUT COMA (2) Ischemia of lower extremity Assessment/Plan: Gradually worsening Code(s): I99.8 - OTHER DISORDER OF CIRCULATORY SYSTEM (3) SHANTA (acute kidney injury) Assessment/Plan: Stable F/U BMP Code(s): N17.9 - ACUTE KIDNEY FAILURE, UNSPECIFIED (4) Hospital-acquired pneumonia Assessment/Plan: Completed abx Code(s): J18.9 - PNEUMONIA, UNSPECIFIED ORGANISM (5) Afib Assessment/Plan: Off Ac rate controlled Code(s): I48.91 - UNSPECIFIED ATRIAL FIBRILLATION (6) Hypoglycemia Assessment/Plan: resolved Code(s): E16.2 - HYPOGLYCEMIA, UNSPECIFIED
[2017-10-31] MEDS: AMINO ACIDS 4.25%/D5W 1,000 ML IV SCH (14:52)
[2017-10-31] MEDS: CHLORHEXIDINE GLUCONATE 4% CLEANSER FOR DECOLONIZATION TP SCH (22:01)
[2017-11-01] MEDS: PIPERACILLIN/TAZOB 2.25 GM 2.25 GM in DEXTROSE 5%-WATER - 50 ML IVPB SCH ×2 (03:15→09:00)
[2017-11-01] MEDS ORDERED: PT OWN MED DRAWER 7, Y5N ONE (03:23)
[2017-11-01] MEDS: NYSTATIN 500,000 UNITS/5 ML SUSPENSION PO SCH ×3 (03:26→11:25)
[2017-11-01] MEDS: INSULIN SLIDING SCALE (NOVOLOG) 1 VIAL SQ SCH (06:25)
[2017-11-01] MEDS: INSULIN (LEVEMIR) 100 UNITS/ML UNITS SQ SCH ×2 (06:25→08:02)
[2017-11-01] MEDS: ACETYLCYSTEINE 20% 200MG/ML 4 ML VIAL *FOR ORAL / INH USE ONLY NEB SCH ×2 (07:20→11:32)
[2017-11-01] MEDS: ALBUTEROL SO4 0.083% IH SOL 2.5 MG/3 ML VIAL.NEB. NEB SCH ×2 (07:20→11:32)
[2017-11-01 07:32] LABS: HEMATOCRIT 24.5 % (35.4-49); MCH 30.6 pg (25.7-33.7); MCHC 32.7 g/dl (32.0-35.9); MEAN CELL VOLUME 93.6 fl (80-96); PLATELET COUNT 324 K/MM3 (134-434); RBC 2.62 M/mm3 (4.00-5.60); RDW 15.5 % (11.9-15.9); WHITE BLOOD COUNT 13.4 K/mm3 (4.0-10.0)
[2017-11-01] MEDS ORDERED: DEXTROSE 5%-WATER - 50 ML IVPB ONE (08:34)
[2017-11-01] MEDS ORDERED: PIPERACILLIN/TAZOBACTAM 2.25 GM VIAL IVPB ONE (08:34)
[2017-11-01 08:40] LABS: ANION GAP 7 (8-16); CALCIUM 8.1 mg/dL (8.5-10.1); CHLORIDE 113 mmol/L (98-107); CO2 27 mmol/L (21-32); CREATININE 4.2 mg/dL (0.7-1.3); GLUCOSE,RANDOM 76 mg/dL (74-106); POTASSIUM 5.5 mmol/L (3.5-5.1); SODIUM 147 mmol/L (136-145)
[2017-11-01] MEDS: TAMSULOSIN HCL 0.4 MG CAP.ER.24H (FP) PO SCH (08:46)
[2017-11-01] MEDS: AMINO ACIDS/PROTEIN HYDROLYS 30 ML LIQUID.PKT NGT SCH (08:46)
[2017-11-01] MEDS: PANTOPRAZOLE 40 MG TABLET (FP) PO SCH (09:00)
[2017-11-01 09:46] LABS: BLOOD UREA NITROGEN 110 mg/dL (7-18)
[2017-11-01] MEDS ORDERED: INSULIN SLIDING SCALE (NOVOLOG) 1 VIAL SQ SCH (09:50)
[2017-11-01] MEDS ORDERED: morphine CARPU-JECT 2 MG/1 ML DISP.SYRIN IVPUSH PRN (09:53)
--- NOTE | 2017-11-01 09:57 | PN ---
Progress Note (short form) - Note Progress Note: Main complaint is unrelieved pain left foot at the site of the gangrene of the toes.Tramadol didn't help. Will Rx with PRN 2mgIV MS; aware of kidney status. Still delirious with his speech and at other times making some sense. Renal status poor. ? [facility] transfer today.
[2017-11-01] MEDS ORDERED: HALOPERIDOL 1 MG TABLET (FP) PO PRN (09:58)
[2017-11-01 10:04] LABS: ANISOCYTOSIS 1+; MACROCYTOSIS 1+; PLATELET ESTIMATE NORMAL
[2017-11-01 13:10] VITALS: BP 120/56; PULSE 111; TEMP 97.4
[2017-11-02] MEDS ORDERED: INSULIN (LEVEMIR) 100 UNITS/ML UNITS SQ SCH (07:00)
--- NOTE | 2017-11-09 10:57 | DS ---
Physical Examination Vital Signs: Vital Signs Temperature 97.4 F L 11/01/17 13:09 Pulse Rate 111 H 11/01/17 13:09 Respiratory Rate 20 11/01/17 13:09 Blood Pressure 120/56 11/01/17 13:09 O2 Sat by Pulse Oximetry (%) 100 11/01/17 09:00 Constitutional: Yes: Anxious Eyes: Yes: Conjunctiva Clear Cardiovascular: Yes: Tachycardia Respiratory: Yes: Cough, On Nasal O2, Rhonchi Gastrointestinal: Yes: Soft Musculoskeletal: Yes: Joint Stiffness Extremities: Yes: Cool, Cyanosis (left foot; 1st 3 toes) Edema: No Neurological: Yes: Confusion Labs: CBC, BMP 11/01/17 06:55 11/01/17 07:50 Discharge Summary Reason For Visit: DIABETIC KETOACIDOSIS,PNEUMONIA,DEHYDRATION Acute Renal Failure Acute Pneumonia Uncontrolled DM pvd; Acute gangrene of toes Acute respiratory failure Acute GI Bleed Acute Blood Loss Anemia Procedures: Principal: Endotracheal Intubation; ICU: IV RX Other Procedures: Nutiple lab followup testing and Consultants; GI endoscopy Hospital Course: Improved slowly but then had multiple setbacks; DNR/DNI; Decision for comfort care made. Condition: Guarded - Instructions Diet, Activity, Other Instructions: dysphagia puree diet Speech Therapist: Risk for aspiration on fluids but he didn't wish PEG tube . Main complaints pain left foot and legs. I decreased BGM coverage amts due to frequent hypoglycemia. Continues DNR/DNI Referrals: Curt Nunez MD [Primary Care Provider] - Disposition: DISCH TO [facility] - Home Medications Comprehensive Discharge Medication List: Ambulatory Orders Timolol 0.5% [Timoptic] 1 drop OU DAILY 05/11/14 Insulin Sliding Scale [Novolog Vial Sliding Scale -] 1 vial SQ HS units Insulin Sliding Scale [Novolog Vial Sliding Scale -] 1 vial SQ TIDAC units Acetaminophen [Tylenol .Regular Strength -] 650 mg PO Q6H PRN tablet 11/01/17 Acetylcysteine Po/INH 20% [Mucomyst 20 Oral / INH Use Only*] 200 mg NEB RQID vial 11/01/17 Albuterol 0.083% Nebulizer Petra [Ventolin 0.083% Nebulizer Soln -] 1 amp NEB RQID amp 11/01/17 Amino Acids/Protein Hydrolys [Prosource No Carb Liquid Pkt] 30 ml NGT BID@0800, 1730 packet 11/01/17 Darbepoetin Trell [Aranesp -] 25 mcg SQ Q7D@1000 disp.syrin 11/01/17 Diltiazem Cd [Cardizem Cd -] 120 mg PO BID cap.cd.24h 11/01/17 Haloperidol [Haldol -] 2 mg PO Q4H PRN tablet 11/01/17 Insulin (Levemir) [Levemir Vial] 5 units SQ AM ml 11/01/17 Morphine Injection - [Morphine Injection 2 mg/1 mL -] 2 mg IVPUSH Q4H PRN disp.syrin MDD 20mg 11/01/17 Nystatin Oral Suspension - [Nystatin Oral Susp 229627 Units/5 ML -] 500,000 units PO Q6HPO cup 11/01/17 Pantoprazole Sodium [Protonix -] 40 mg PO DAILY tablet.ec 11/01/17 Piperacillin/Tazob 2.25 gm [Zosyn -] 2.25 gm IVPB Q8H-IV vial 11/01/17 Tamsulosin HCl [Flomax -] 0.4 mg PO DAILY@0830 cap.er.24h 11/01/17 traMADol HCL [Ultram -] 50 mg PO Q12H PRN tablet MDD 100mg 11/01/17
== END 2017-11-01 13:45 | disposition hospice, inpatient (51) | DRG 870 ==
LOC: JER 22:22 → JERBED 10-03 03:53 → JICU 10-03 07:05 → J4W 10-26 15:07 → JERBED 10-31 14:40 → J4W 10-31 14:45 → J5S 11-01 04:39
PROVIDERS: ADMIT Internal Medicine; ATTEND Internal Medicine
PROC: 0CHY7BZ Insertion of Airway into Mouth and Throat, Via Natural or Artificial Opening (ICD-10-PCS; principal; 2017-10-03)
PROC: 5A1955Z Respiratory Ventilation, Greater than 96 Consecutive Hours (ICD-10-PCS; 2017-10-03)
PROC: 05HM33Z Insertion of Infusion Device into Right Internal Jugular Vein, Percutaneous Approach (ICD-10-PCS; 2017-10-07)
PROC: 5A1D70Z Performance of Urinary Filtration, Intermittent, Less than 6 Hours Per Day (ICD-10-PCS; 2017-10-07)
PROC: 5A1D70Z Performance of Urinary Filtration, Intermittent, Less than 6 Hours Per Day (ICD-10-PCS; 2017-10-08)
PROC: 30233N1 Transfusion of Nonautologous Red Blood Cells into Peripheral Vein, Percutaneous Approach (ICD-10-PCS; 2017-10-11)
PROC: 5A1D70Z Performance of Urinary Filtration, Intermittent, Less than 6 Hours Per Day (ICD-10-PCS; 2017-10-11)
PROC: 5A1D70Z Performance of Urinary Filtration, Intermittent, Less than 6 Hours Per Day (ICD-10-PCS; 2017-10-13)
PROC: 05HM33Z Insertion of Infusion Device into Right Internal Jugular Vein, Percutaneous Approach (ICD-10-PCS; 2017-10-15)
PROC: 5A1D70Z Performance of Urinary Filtration, Intermittent, Less than 6 Hours Per Day (ICD-10-PCS; 2017-10-15)
PROC: 0W3P8ZZ Control Bleeding in Gastrointestinal Tract, Via Natural or Artificial Opening Endoscopic (ICD-10-PCS; 2017-10-21)
PROC: 0DJ08ZZ Inspection of Upper Intestinal Tract, Via Natural or Artificial Opening Endoscopic (ICD-10-PCS; 2017-10-21)
DX: A41.89 Other specified sepsis (principal); E10.10 Type 1 diabetes mellitus with ketoacidosis without coma; J96.01 Acute respiratory failure with hypoxia; J18.9 Pneumonia, unspecified organism; E43 Unspecified severe protein-calorie malnutrition; R65.21 Severe sepsis with septic shock; N17.0 Acute kidney failure with tubular necrosis; K56.1 Intussusception; E87.2 Acidosis; Z68.1 Body mass index [BMI] 19.9 or less, adult; I47.1 Supraventricular tachycardia; J82 Pulmonary eosinophilia, not elsewhere classified; E10.52 Type 1 diabetes mellitus with diabetic peripheral angiopathy with gangrene; I96 Gangrene, not elsewhere classified; K92.2 Gastrointestinal hemorrhage, unspecified; J90 Pleural effusion, not elsewhere classified; J98.11 Atelectasis; D62 Acute posthemorrhagic anemia; N39.0 Urinary tract infection, site not specified; I48.0 Paroxysmal atrial fibrillation; E78.5 Hyperlipidemia, unspecified; I99.8 Other disorder of circulatory system; I05.0 Rheumatic mitral stenosis; E83.39 Other disorders of phosphorus metabolism; J44.9 Chronic obstructive pulmonary disease, unspecified; K57.90 Diverticulosis of intestine, part unspecified, without perforation or abscess without bleeding; I71.2 Thoracic aortic aneurysm, without rupture; E88.09 Other disorders of plasma-protein metabolism, not elsewhere classified; D63.8 Anemia in other chronic diseases classified elsewhere; K42.9 Umbilical hernia without obstruction or gangrene; E10.51 Type 1 diabetes mellitus with diabetic peripheral angiopathy without gangrene; R06.6 Hiccough; I12.9 Hypertensive chronic kidney disease with stage 1 through stage 4 chronic kidney disease, or unspecified chronic kidney disease; E10.22 Type 1 diabetes mellitus with diabetic chronic kidney disease; N18.9 Chronic kidney disease, unspecified; E10.42 Type 1 diabetes mellitus with diabetic polyneuropathy; E86.0 Dehydration; K29.60 Other gastritis without bleeding; K20.8 Other esophagitis; Q27.33 Arteriovenous malformation of digestive system vessel; E87.5 Hyperkalemia; M19.90 Unspecified osteoarthritis, unspecified site; F17.210 Nicotine dependence, cigarettes, uncomplicated; E10.65 Type 1 diabetes mellitus with hyperglycemia; Z85.22 Personal history of malignant neoplasm of nasal cavities, middle ear, and accessory sinuses; Z89.421 Acquired absence of other right toe(s); Z89.422 Acquired absence of other left toe(s); Z86.73 Personal history of transient ischemic attack (TIA), and cerebral infarction without residual deficits; Z66 Do not resuscitate
CPT/HCPCS: 31500; 36415; 36430; 36600; 71045-TC-FY; 74230-TC-FY; 76775-TC; 80048; 80053; 80307; 81003; 81015; 82009; 82272; 82607; 82728; 82746; 82803; 82947; 82962; 83036; 83540; 83605; 83735; 84100; 85025; 85027; 85610; 85730; 86704; 86706; 86708; 86850; 86900; 86901; 86922; 87040; 87070; 87086; 87186; 87205; 87340; 87899; 92611-GN; 93005; 93010; 93306-TC; 94002; 94640; 94660; 97161-GP; 99283-25; J0881; J1644; J7030; P9038; P9058